=== PATIENT | female | born 1945 | race Caucasian/White ===

== ENCOUNTER 2016-12-31 17:19 | Inpatient (IN) | payer MEDICARE, OTHER ==
[~2016-12-31] VITALS: Ht 162.6 cm; Wt 79.8 kg
[2016-12-31 19:50] VITALS: BP 140/62; PULSE 81; RESP 18
[2016-12-31] MEDS ORDERED: ACETAMINOPHEN 325 MG TAB PO PRN ×2 (21:42→22:30)
[2016-12-31] MEDS ORDERED: ALBUTEROL/IPRATROPIUM (NEB) 3 ML AMP HHN PRN (21:42)
[2016-12-31] MEDS ORDERED: BISACODYL 10 MG SUPP PR PRN ×2 (21:47→22:30)
[2016-12-31] MEDS: BUDESONIDE (NEB) 0.25 MG/2 ML AMP INH SCH (21:47)
[2016-12-31] MEDS ORDERED: DEXTROSE 50% 50 ML SYRINGE IV PRN ×3 (21:48)
[2016-12-31] MEDS ORDERED: DOCUSATE SODIUM 100 MG CAP PO PRN (21:48)
[2016-12-31] MEDS ORDERED: GLUCAGON 1 MG INJ IM PRN (21:49)
[2016-12-31] MEDS ORDERED: GLUCOSE GEL 15 GRAM TUBE PO PRN ×2 (21:52)
[2016-12-31] MEDS ORDERED: GLUCOSE GEL 15 GRAM TUBE BUCCAL PRN (21:53)
[2016-12-31] MEDS ORDERED: SALINE 0.65% 45 ML NAS SPRAY NASAL PRN (22:00)
[2016-12-31] MEDS: IPRATROPIUM (NEB) 0.5 MG/2.5 ML AMP INH SCH (22:14)
[2016-12-31] MEDS ORDERED: LACTULOSE 30ML CUP PO PRN (22:30)
[2016-12-31] MEDS ORDERED: MAGNESIUM HYDROXIDE 30ML CUP PO PRN (22:30)
[2016-12-31] MEDS: TACROLIMUS 1 MG CAP PO SCH (23:06)
[2016-12-31] MEDS: SILDENAFIL 20 MG TAB PO SCH (23:07)
[2016-12-31] MEDS: ASCORBIC ACID 500 MG TAB PO SCH (23:07)
[2016-12-31] MEDS: APIXABAN 5 MG TABLET PO SCH (23:07)
[2016-12-31] MEDS ORDERED: ONDANSETRON 4 MG INJ IV PRN (23:30)
[2016-12-31] MEDS ORDERED: BALSAM PERU/CASTOR OIL 60 GM TUBE TOP PRN (23:30)
[2016-12-31] MEDS ORDERED: IPRATROPIUM (NEB) 0.5 MG/2.5 ML AMP INH PRN (23:30)
[2017-01-01] MEDS: IPRATROPIUM (NEB) 0.5 MG/2.5 ML AMP INH SCH ×4 (01:10→20:05)
[2017-01-01] MEDS ORDERED: PANTOPRAZOLE (EC) 40 MG TAB PO SCH (06:00)
[2017-01-01] MEDS: LEVOTHYROXINE 75 MCG TAB PO SCH (06:26)
[2017-01-01] MEDS: PANTOPRAZOLE (EC) 40 MG TAB PO SCH (06:26)
[2017-01-01] MEDS: Insulin NOVOLOG SS Algorithm ONE SC SCH ×4 (07:05→21:00)
[2017-01-01] MEDS: ACCU-CHEK BARLOW XX SCH ×4 (07:05→21:18)
[2017-01-01] MEDS: HYDROmorphONE 1 MG/ML SYG IV PRN ×5 (07:06→18:47)
[2017-01-01 07:30] VITALS: BP 119/71; RESP 20
[2017-01-01 07:51] LABS: BASOPHILS % 0.2 % (0.0-2.0); EOSINOPHILS # 0.2 10^3/ul (0.0-0.5); HEMATOCRIT 32.7 % (37.0-47.0); HEMOGLOBIN 10.4 g/dl (12.0-16.0); LYMPHOCYTES # 0.9 10^3/ul (0.8-2.9); LYMPHOCYTES % 15.1 % (15.0-51.0); MEAN CORPUSCULAR HEMOGLOBIN 30.2 pg (29.0-33.0); MEAN CORPUSCULAR HGB CONC 31.8 g/dl (32.0-37.0); MEAN CORPUSCULAR VOLUME 95.1 fl (82.0-101.0); MEAN PLATELET VOLUME 9.7 fl (7.4-10.4); MONOCYTE # 0.4 10^3/ul (0.3-0.9); MONOCYTES % 6.9 % (0.0-11.0); NEUTROPHILS % 73.5 % (39.0-77.0); PLATELET COUNT 297 10^3/UL (140-415); RED BLOOD COUNT 3.44 10^6/ul (4.20-5.40); RED CELL DISTRIBUTION WIDTH 15.9 % (11.5-14.5)
[2017-01-01 08:12] LABS: ALBUMIN 3.6 g/dl (3.3-4.9); ALBUMIN/GLOBULIN RATIO 1.33; BILIRUBIN,INDIRECT 0.2 mg/dl (0-1.1); BILIRUBIN,TOTAL 0.2 mg/dl (0.2-1.3); CALCIUM 10.1 mg/dl (8.4-10.2); CREATININE 1.48 mg/dl (0.44-1.00); POTASSIUM 4.2 mmol/L (3.5-5.1); TOTAL PROTEIN 6.3 g/dl (6.1-8.1)
[2017-01-01] MEDS: oxyCODONE 5 MG TAB PO PRN (08:25)
[2017-01-01] MEDS: TACROLIMUS 1 MG CAP PO SCH ×3 (08:35→20:59)
[2017-01-01 08:47] LABS: ADD UMIC YES; UR ASCORBIC ACID 40 mg/dL (NEGATIVE); UR BILIRUBIN (Dip) NEGATIVE (NEGATIVE); UR BLOOD (Dip) NEGATIVE (NEGATIVE); UR CLARITY CLEAR (CLEAR); UR COLOR YELLOW (YELLOW); UR GLUCOSE (Dip) NEGATIVE (NEGATIVE); UR KETONES (Dip) NEGATIVE (NEGATIVE); UR LEUKOCYTE ESTERASE (Dip) NEGATIVE Leu/ul (NEGATIVE); UR NITRITE (Dip) NEGATIVE (NEGATIVE); UR RBC 1 /HPF (0-5); UR SPECIFIC GRAVITY (Dip) 1.011 (1.003-1.030); UR TOTAL PROTEIN (Dip) 2+ mg/dl (NEGATIVE); UR UROBILINOGEN (Dip) NEGATIVE (NEGATIVE)
[2017-01-01] MEDS: SERTRALINE 50 MG TAB PO SCH (09:00)
[2017-01-01] MEDS: INSULIN GLARGINE [LANtus] 3 ML PEN SC SCH (09:00)
[2017-01-01] MEDS: LORATADINE 10 MG TAB PO SCH ×2 (09:00→13:48)
[2017-01-01] MEDS: BALSAM PERU/CASTOR OIL 60 GM TUBE TOP SCH (09:00)
[2017-01-01] MEDS: BUMETANIDE 1 MG TAB PO SCH ×2 (09:00→13:49)
[2017-01-01] MEDS: ASCORBIC ACID 500 MG TAB PO SCH ×3 (09:00→21:00)
[2017-01-01] MEDS: DOCUSATE SODIUM 100 MG CAP PO SCH ×2 (09:00→21:00)
[2017-01-01] MEDS ORDERED: FLUTICASONE 0.05% 16 GM NAS SPRAY NASAL PRN (09:00)
[2017-01-01] MEDS ORDERED: BALSAM PERU/CASTOR OIL 60 GM TUBE TOP PRN (09:00)
[2017-01-01] MEDS: MAGNESIUM OXIDE 400 MG TAB PO SCH ×2 (09:00→13:48)
[2017-01-01] MEDS: PREDNISONE PO SCH (09:00)
[2017-01-01] MEDS: APIXABAN 5 MG TABLET PO SCH ×3 (09:00→20:59)
[2017-01-01] MEDS ORDERED: NITROGLYCERIN 2% 1 GM OINT PKT TD PRN (09:00)
[2017-01-01] MEDS ORDERED: ZINC SULFATE 220 MG CAP PO SCH (09:00)
[2017-01-01] MEDS: OXCARBAZEPINE 300 MG TAB PO SCH ×3 (09:00→20:59)
[2017-01-01] MEDS: SILDENAFIL 20 MG TAB PO SCH ×3 (09:54→21:00)
[2017-01-01] MEDS: BUDESONIDE (NEB) 0.25 MG/2 ML AMP INH SCH ×2 (10:00→20:05)
--- NOTE | 2017-01-01 11:34 | HP ---
DATE OF ADMISSION: 12/31/2016 HISTORY OF PRESENT ILLNESS: This is a 70-year-old female with a past medical history metastatic breast cancer on Faslodex. History of end-stage renal disease, status post-renal transplant. History of hypothyroidism, hypertension, diabetes, COPD, pulmonary hypertension. The patient was initially taken to [facility] in late October for weakness, and was found to be respiratory failure. The patient at that time was also found to have COPD exacerbation along with diastolic heart failure. The patient received bronchodilator, steroids, and diuretics. The patient was on intermittent BiPAP and was eventually given sildenafil. The patient was noted to be edematous but improved with diuretic therapy. The patient also has chronic allograft failure with baseline creatinine 1.2 and 1.3 mg/dL. The patient was eventually transferred to [facility]. While at [place] the patient was on BiPAP, was seen by health manager, the patient eventually stabilized and was weaned off BiPAP. The patient has now been transferred to [facility] acute rehab for continued care. Upon my evaluation patient at time is currently stable. Denies any fevers, chills, nausea, vomiting shortness of breath. PAST MEDICAL HISTORY: As stated above. History metastatic breast cancer on Faslodex. End-stage renal disease, status post- renal transplant, hypothyroidism, hypertension, history of diabetes, COPD, and pulmonary hypertension. PAST SURGICAL HISTORY: Status post-renal kidney transplant. FAMILY HISTORY: Noncontributory. SOCIAL HISTORY: Does not drink, smoke, or do drugs. MEDICATIONS: Reviewed and reconciled. REVIEW OF SYSTEMS: A 14 point review of systems was conducted. Pertinent positives are stated in HPI, otherwise negative. PHYSICAL EXAMINATION: VITAL SIGNS: Blood pressure is 140/62, respirations 18, pulse 81, temperature 98.8. HEENT: Head is normocephalic. NECK: Supple. HEART: Regular rate. LUNGS: Diminished breath sounds at the base. ABDOMEN: Soft, nontender to palpation. No rebound or guarding. EXTREMITIES: Negative for clubbing, cyanosis. No edema. DERMATOLOGIC: Clean. No rashes. MUSCULOSKELETAL: No joint effusion. NEUROLOGIC: Unchanged exam. MEDICATIONS: The patient's medications have been reviewed. LABORATORY DATA: Sodium 135, potassium 4.2, chloride 92, BUN 46, creatinine 1.48. White count 6.9, hemoglobin 10.4, hematocrit 30.7, platelet count is 297,000. ASSESSMENT AND PLAN: 1. Chronic obstructive pulmonary disease exacerbation. The patient is clinically improving. Continue current medical management. Bronchodilators. Continue supplemental oxygen. 2. Congestive heart failure exacerbation. Improved. Continue current medical management. Follow up with Cardiology for recommendations. 3. History of paroxysmal atrial fibrillation. Currently sinus rhythm. Continue medical management. 4. End-stage renal disease. Status post-renal transplant with chronic failure. The patient's renal function is currently at baseline. Continue medical management. Supportive care. Renally dose all meds. 5. Hypothyroidism. Continue Synthroid. 6. Anemia. Monitor hemoglobin and hematocrit levels. 7. History of breast cancer with metastasis. The patient is on medical management. Will place Oncology consult for evaluation. 8. Diabetes. Continue current insulin regimen. 9. Pulmonary hypertension. Continue sildenafil. 10. Depression. Continue Zoloft. Dictated By: Cameron Rosenthal DO /[email or web address]/fred /Document#: [id number]
--- NOTE | 2017-01-01 13:02 | CONS ---
DATE OF ADMISSION: 12/31/2016 DATE OF CONSULTATION: 01/01/2017 This is a rehabilitation post admission physician evaluation. REHABILITATION IMPAIRMENT CATEGORY: Toxic metabolic encephalopathy. ACTIVE COMORBIDITIES: 1. Dysphagia, on dysphagia diet. 2. Status post respiratory failure. 3. End-stage renal disease, with history of transplant. 4. Diabetes mellitus. 5. Hypertension. 6. Paroxysmal atrial fibrillation. 7. Metastatic breast CA. 8. Hypothyroidism. 9. Deep tissue injury of the coccyx. 10. Impairments in self-care, mobility and cognition. HISTORY OF PRESENT ILLNESS: The patient is a pleasant 71-year- old female with a history of multiple medical comorbidities, who was admitted with increased shortness of breath and weakness. Patient was noted to have respiratory failure due to a COPD exacerbation and acute diastolic heart failure. The patient's hospital course was also notable for atrial fibrillation and dysphagia requiring dysphagia diet. The patient was transferred to [facility] for further care. The patient noted to have significant confusion secondary to acute encephalopathy. Patient with significant impairments in self- care, mobility, as compared to baseline and has now been cleared to transfer to the rehabilitation unit for comprehensive interdisciplinary rehab care. FUNCTIONAL HISTORY: Prior to recent events, she was independent in self-care tasks and mobility. Currently, she requires maximal- to-moderate assist for self-care mobility tasks. I have reviewed the preadmission screen and patient's current functional status is consistent with the preadmission screen. SOCIAL HISTORY: Patient lives with her brother in an apartment with 6 stairs to the entryway. PAST MEDICAL HISTORY: 1. Metastatic breast CA status post mastectomy. 2. End-stage renal disease, status post renal transplant. 3. Hypothyroidism. 4. Hypertension. 5. Diabetes mellitus. MEDICATION: 1. Insulin sliding scale. 2. NovoLog insulin. 3. Ascorbic acid 500 mg b.i.d. 4. Albuterol inhaler. 5. Levothyroxine 75 mcg p.o. q.day. 6. Oxycodone p.r.n. 7. Faslodex 500 mg q.month. 8. Protonix 40 mg p.o. q.day. 9. Prednisone 8 mg p.o. q.day. 10. Sertraline 50 mg p.o. q.day. ALLERGIES: MORPHINE. TETRACYCLINE. PHYSICAL EXAMINATION: GENERAL APPEARANCE: Patient is currently afebrile with stable vital signs. HEENT: The extraocular motion intact. Oropharynx clear. NECK: Supple. LUNGS: Clear anteriorly. HEART: S1, S2. ABDOMEN: Soft, nontender. Positive bowel sounds. NEUROLOGICALLY: She is awake and alert and she is oriented to person. She will follow simple one-step commands. She demonstrates antigravity strength in right upper and bilateral lower extremities. She has decreased shoulder forward flexion and abduction on the left. PLAN: Patient has been admitted for comprehensive interdisciplinary acute rehab and is anticipated to tolerate 3 hours of daily therapy in divided doses for at least 5/7 days a week. The treatment plan will include. 1. Physical therapy to focus on bed mobility, transfers and household ambulation with goal of having patient reach a standby assist level. 2. Occupational therapy to focus on hygiene, grooming, dressing, bathing and toileting activities with goal of having patient reach standby assist level. 3. Rehabilitation speech therapy for full cognitive assessment and retraining in addition to dysphagia management with the goal of having patient return to baseline cognition and meet nutritional needs by mouth. 4. Rehabilitation nursing for carry over of therapeutic interventions. The goal of continent to bowel, bladder, and the goal of patient and family education with regards to the aforementioned issues. ESTIMATED LENGTH OF STAY: 14 days. DISPOSITION GOAL: Home. Rehabilitation Barrier: Cognition Intervention for barrier: Speech Therapy I acknowledged I performed a full physical examination on this patient within 24 hours of admission to the rehabilitation unit and believe the patient is a good candidate for comprehensive interdisciplinary rehab care and is anticipated to make reasonable goals in a reasonable period of time as outlined above. Dictated By: Lynn Lugo MD /[email or web address] /Document#: [id number] SERAFIN
[2017-01-01 14:00] VITALS: BP 122/56; RESP 20
[2017-01-01] MEDS: METOPROLOL 25 MG TAB PO SCH ×2 (14:04→21:00)
[2017-01-01] MEDS: LORAZEPAM 2 MG INJ IV PRN (14:07)
[2017-01-01 20:00] VITALS: BP 129/56; RESP 18
[2017-01-01] MEDS: SENNA TAB PO SCH (21:00)
[2017-01-01] MEDS: MIRTAZAPINE 15 MG TAB PO SCH (21:00)
[2017-01-02] VITALS: BP 124/58; RESP 18
[2017-01-02] MEDS: IPRATROPIUM (NEB) 0.5 MG/2.5 ML AMP INH SCH ×4 (01:16→21:13)
[2017-01-02] MEDS: oxyCODONE 5 MG TAB PO PRN (01:26)
[2017-01-02] MEDS: LORAZEPAM 2 MG INJ IV PRN (02:39)
[2017-01-02] MEDS: LEVOTHYROXINE 75 MCG TAB PO SCH (06:34)
[2017-01-02] MEDS: PANTOPRAZOLE (EC) 40 MG TAB PO SCH (06:34)
[2017-01-02] MEDS: METOPROLOL 25 MG TAB PO SCH ×3 (06:37→21:07)
[2017-01-02] MEDS: ACCU-CHEK BARLOW XX SCH ×4 (07:05→21:00)
[2017-01-02 07:30] VITALS: BP 123/57; RESP 20
[2017-01-02] MEDS: BUDESONIDE (NEB) 0.25 MG/2 ML AMP INH SCH ×2 (08:00→21:14)
[2017-01-02] MEDS: Insulin NOVOLOG SS Algorithm ONE SC SCH ×4 (08:23→21:00)
[2017-01-02] MEDS: INSULIN GLARGINE [LANtus] 3 ML PEN SC SCH (08:33)
[2017-01-02] MEDS: PREDNISONE PO SCH (08:37)
[2017-01-02] MEDS: BUMETANIDE 1 MG TAB PO SCH (08:37)
[2017-01-02] MEDS: MAGNESIUM OXIDE 400 MG TAB PO SCH (08:38)
[2017-01-02] MEDS: SILDENAFIL 20 MG TAB PO SCH ×3 (08:38→21:05)
[2017-01-02] MEDS: DOCUSATE SODIUM 100 MG CAP PO SCH ×2 (08:38→21:03)
[2017-01-02] MEDS: ASCORBIC ACID 500 MG TAB PO SCH ×2 (08:38→21:39)
[2017-01-02] MEDS: LORATADINE 10 MG TAB PO SCH (08:38)
[2017-01-02] MEDS: TACROLIMUS 1 MG CAP PO SCH ×2 (08:38→21:03)
[2017-01-02] MEDS: OXCARBAZEPINE 300 MG TAB PO SCH ×2 (08:39→21:03)
[2017-01-02] MEDS: SERTRALINE 50 MG TAB PO SCH (08:39)
[2017-01-02] MEDS: APIXABAN 5 MG TABLET PO SCH ×2 (08:48→21:03)
--- NOTE | 2017-01-02 10:32 | CONS ---
Date/Time of Note Date/Time of Note DATE: 01/02/17 TIME: 10:30 Consult Date/Type/Reason Admit Date/Time Dec 31, 2016 at 18:36 Initial Consult Date Subjective Comfortable Objective max/dep assist transfer [id number] Vital Signs Date Time Temp Pulse Resp B/P Pulse Ox O2 Delivery O2 Flow Rate FiO2 01/02/17 07:30 97.8 70 20 123/57 100 01/02/17 01:16 2.0 01/01/17 20:05 Nasal Cannula Intake and Output 01/01/17 01/01/17 01/02/17 15:00 23:00 07:00 Intake Total 500 ml Balance 500 ml Results/Medications Result Diagram: 01/01/17 0651 01/01/17 0651 Results 24 hrs Laboratory Tests Test 01/01/17 12:51 01/01/17 17:39 01/01/17 20:54 01/02/17 08:05 Bedside Glucose 168 165 125 161 Medications Current Medications Oxycodone HCl (Roxicodone) 20 mg Q6H PRN PO MODERATE PAIN Last administered on 01/02/17 01:26; Admin Dose 20 MG; Start 12/31/16 at 23:30 Acetaminophen (Tylenol Tab) 650 mg Q6H PRN PO MILD PAIN LEVEL 1-3; Start at 21:42 Tacrolimus (Prograf) 2 mg QHS PO Last administered on 01/01/17 20:59; Admin Dose 2 MG; Start 12/31/16 at 21:56 Oxcarbazepine (Trileptal) 600 mg BID PO Last administered on 01/02/17 08:39; Admin Dose 600 MG; Start 01/01/17 at 09:00 Docusate Sodium (Colace) 100 mg BID PRN PO CONSTIPATION; Start 12/31/16 at 21:48 Sodium Chloride (Deep Sea) 1 spray Q2H PRN NASAL NASAL CONGESTION; Start at 22:00 Dextrose (D50w Syringe) 25 ml PRN PRN IV DECREASED GLUCOSE; Start 12/31/16 at 21 :48 Fluticasone Propionate (Flonase 0.05% Nasal) to each nostril DAILY PRN NASAL ALLERGIES; Start 01/01/17 at 09:00 Hydromorphone HCl (Dilaudid) 0.5 mg Q2H PRN IV SEVERE PAIN Last administered on 01/01/17 18:47; Admin Dose 0.5 MG; Start 12/31/16 at 21:54 Levothyroxine Sodium (Synthroid) 75 mcg DAILY@06 PO Last administered on 06:34; Admin Dose 75 MCG; Start 01/01/17 at 06:00 Loratadine (Claritin) 10 mg DAILY PO Last administered on 01/02/17 08:38; Admin Dose 10 MG; Start 01/01/17 at 09:00 Magnesium Oxide (Mag-Ox 400) 400 mg DAILY PO Last administered on 01/02/17 08: 38; Admin Dose 400 MG; Start 01/01/17 at 09:00 Sildenafil Citrate (Revatio) 20 mg TID PO Last administered on 01/02/17 08:38; Admin Dose 20 MG; Start 12/31/16 at 21:59 Sertraline HCl (Zoloft) 75 mg DAILY PO Last administered on 01/02/17 08:39; Admin Dose 75 MG; Start 01/01/17 at 09:00 Pantoprazole (Protonix Tab) 40 mg DAILY@06 PO Last administered on 01/02/17 06: 34; Admin Dose 40 MG; Start 01/01/17 at 06:00 Ondansetron HCl (Zofran Inj) 4 mg Q6H PRN IV NAUSEA AND/OR VOMITING Last administered on 01/01/17 13:05; Admin Dose 4 MG; Start 12/31/16 at 23:30 Miscellaneous Information 1 ea NOTE XX ; Start 01/01/17 at 09:00 Glucose (Glutose) 15 gm Q15M PRN PO DECREASED GLUCOSE; Start 12/31/16 at 21:52 Glucose (Glutose) 22.5 gm Q15M PRN PO DECREASED GLUCOSE; Start 12/31/16 at 21:52 Dextrose (D50w Syringe) 25 ml Q15M PRN IV DECREASED GLUCOSE; Start 12/31/16 at 21:48 Dextrose (D50w Syringe) 50 ml Q15M PRN IV DECREASED GLUCOSE; Start 12/31/16 at 21:48 Glucagon (Glucagen) 1 mg Q15M PRN IM DECREASED GLUCOSE; Start 12/31/16 at 21:49 Glucose (Glutose) 15 gm Q15M PRN BUCCAL DECREASED GLUCOSE; Start 12/31/16 at 21: 53 Nitroglycerin (Nitroglycerin 2% Oint) 0.5 inch Q6H PRN TD SBP > 160; Start 01/01 at 09:00 Lorazepam (Ativan) 0.5 mg Q6H PRN IV ANXIETY Last administered on 01/02/17 02: 39; Admin Dose 0.5 MG; Start 01/01/17 at 09:00 Bisacodyl (Dulcolax Supp) 10 mg DAILY PRN [place] CONSTIPATION; Start 12/31/16 at 21: 47 Metoprolol Tartrate (Lopressor) 25 mg Q8 PO Last administered on 01/02/17 06:37 ; Admin Dose 25 MG; Start 01/01/17 at 09:00 Insulin Glargine (Lantus) 18 unit DAILY SC Last administered on 01/02/17 08:33 ; Admin Dose 18 UNIT; Start 01/01/17 at 09:00 Apixaban (Eliquis) 2.5 mg BID PO Last administered on 01/02/17 08:48; Admin Dose 2.5 MG; Start 12/31/16 at 21:43 Ascorbic Acid (Vitamin C) 500 mg BID PO Last administered on 01/02/17 08:38; Admin Dose 500 MG; Start 12/31/16 at 21:44 Mirtazapine (Remeron) 15 mg HS PO Last administered on 01/01/17 21:00; Admin Dose 15 MG; Start 01/01/17 at 09:00 Patient Own Medication 1 ea Q28D IM ; Start 01/09/17 at 09:00 Prednisone (Prednisone 1 Mg/ ml Liq) 8 mg DAILY PO Last administered on 08:37; Admin Dose 8 MG; Start 01/01/17 at 09:00 Bumetanide (Bumex) 1 mg DAILY PO Last administered on 01/02/17 08:37; Admin Dose 1 MG; Start 01/01/17 at 09:00 Docusate Sodium (Colace) 100 mg BID PO Last administered on 01/02/17 08:38; Admin Dose 100 MG; Start 01/01/17 at 09:00 Senna (Senokot) 1 tab HS PO Last administered on 9/7/17at 21:00; Admin Dose 1 TAB; Start 01/01/17 at 21:00 Magnesium Hydroxide (Milk Of Mag) 30 ml BID PRN PO CONSTIPATION; Start 12/31/16 at 22:30 Lactulose (Enulose) 20 gm DAILY PRN PO CONSTIPATION; Start 12/31/16 at 22:30 Bisacodyl (Dulcolax Supp) 10 mg DAILY PRN [place] CONSTIPATION; Start 12/31/16 at 22: 30 Acetaminophen (Tylenol Tab) 650 mg Q4H PRN PO PAIN; Start 12/31/16 at 22:30 Lidocaine (Lidoderm) 1 patch DAILY TD ; Start 01/03/17 at 09:00 Assessment/Plan Additional Assessment/Plan Rehab- Toxic metabolic encephalopathy increase activities as tolerated Dysphagia, on dysphagia diet. Status post respiratory failure. End-stage renal disease, with history of transplant. Diabetes mellitus. Hypertension. Paroxysmal atrial fibrillation. Metastatic breast CA. Hypothyroidism. Deep tissue injury of the coccyx- offloading ALEK KRISHNAN MD Jan 02, 2017 10:32
--- NOTE | 2017-01-02 11:04 | PN ---
DATE: 01/02/2017 SUBJECTIVE DATA: The patient is stable. No events overnight. No fevers, chills, nausea, or vomiting. OBJECTIVE DATA: VITAL SIGNS: Blood pressure 123/67, temperature 97.8, pulse 70, respirations 20. HEENT: Head is normocephalic. NECK: Supple. HEART: Regular rate. LUNGS: Diminished breath sounds at the base. ABDOMEN: Soft, nontender to palpation. No rebound or guarding. EXTREMITIES: Negative for clubbing, cyanosis. No edema. DERMATOLOGIC: No rashes. MUSCULOSKELETAL: No joint effusions. NEUROLOGIC: No change in exam. MEDICATIONS: The patient's medications have been reviewed. ASSESSMENT AND PLAN: 1. Chronic obstructive pulmonary disease exacerbation. Patient clinically improved. Continue medical management. Continue bronchodilators. Continue supplemental oxygen. 2. Congestive heart failure, stable. Continue medical management. 3. Paroxysmal atrial fibrillation, currently in sinus rhythm. 4. Endstage renal disease, status post renal transplant with chronic allograft failure. Patient's renal function is at baseline. Continue current immunosuppressive regimen. 5. Hypothyroidism. Continue Synthroid. 6. Anemia. Monitor hemoglobin and hematocrit levels. 7. History of breast cancer, . Continue medical management. Place oncology consult for evaluation. 8. Diabetes. Continue Accu-Cheks and sliding scale. 9. Pulmonary hypertension. 10. Anxiety/depression. Continue Zoloft. Dictated By: Cameron Rosenthal DO /[email or web address] /Document#: [id number]
[2017-01-02] MEDS: BALSAM PERU/CASTOR OIL 60 GM TUBE TOP SCH (12:18)
[2017-01-02 14:00] VITALS: BP 101/52; RESP 20
--- NOTE | 2017-01-02 14:10 | CONS ---
Date/Time of Note Date/Time of Note DATE: 01/02/17 TIME: 14:10 Assessment/Plan Assessment/Plan Chief Complaint/Hosp Course History of breast cancer with lung metastasis. The patient is on medical management. cont Faslodex as outpt Anemia. Monitor hemoglobin and hematocrit levels. Chronic obstructive pulmonary disease exacerbation. Congestive heart failure exacerbation. History of paroxysmal atrial fibrillation. End-stage renal disease. Status post-renal transplant with chronic failure. Hypothyroidism. Continue Synthroid. Diabetes. Continue current insulin regimen. Pulmonary hypertension. Continue sildenafil. Depression. Continue Zoloft. Problems: Consultation Date/Type/Reason Admit Date/Time Dec 31, 2016 at 18:36 Date of Consultation: Jan 02, 2017 Type of Consultation: HEMEONC Reason for Consultation BREAST CANCER Referring Provider: SUSAN SIMENTAL DO Hx of Present Illness This is a 70-year-old female with a past medical history metastatic breast cancer on Faslodex. History of end-stage renal disease, status post-renal transplant. History of hypothyroidism, hypertension, diabetes, COPD, pulmonary hypertension. The patient was initially taken to [facility] in late October for weakness, and was found to be respiratory failure. The patient at that time was also found to have COPD exacerbation along with diastolic heart failure. The patient received bronchodilator, steroids, and diuretics. The patient was on intermittent BiPAP and was eventually given sildenafil. The patient was noted to be edematous but improved with diuretic therapy. The patient also has chronic allograft failure with baseline creatinine 1.2 and 1.3 mg/dL. The patient was eventually transferred to [facility]. While at [facility] the patient was on BiPAP, was seen by php wordpress developer, the patient eventually stabilized and was weaned off BiPAP. The patient has now been transferred to [facility] acute rehab for continued care. I WS ASKED TO PROVIDE HEMEON CONSULT PAST MEDICAL HISTORY: As stated above. History metastatic breast cancer on Faslodex. End-stage renal disease, status post- renal transplant, hypothyroidism, hypertension, history of diabetes, COPD, and pulmonary hypertension. PAST SURGICAL HISTORY: Status post-renal kidney transplant. FAMILY HISTORY: Noncontributory. SOCIAL HISTORY: Does not drink, smoke, or do drugs. MEDICATIONS: Reviewed and reconciled. REVIEW OF SYSTEMS: A 14 point review of systems was conducted. Pertinent positives are stated in HPI, otherwise negative. Exam/Review of Systems Vital Signs Vitals Vital Signs Date Time Temp Pulse Resp B/P Pulse Ox O2 Delivery O2 Flow Rate FiO2 01/02/17 13:46 70 20 Nasal Cannula 2.0 01/02/17 07:30 97.8 123/57 100 Intake and Output 01/01/17 01/01/17 01/02/17 15:00 23:00 07:00 Intake Total 500 ml Balance 500 ml Exam HEENT: Head is normocephalic. NECK: Supple. HEART: Regular rate. CHEST - POST L MRM/ALND- ANTOINETTE LUNGS: Diminished breath sounds at the base. ABDOMEN: Soft, nontender to palpation. No rebound or guarding. EXTREMITIES: Negative for clubbing, cyanosis. No edema. DERMATOLOGIC: Clean. No rashes. MUSCULOSKELETAL: No joint effusion. Results Result Diagram: 01/01/17 0651 01/01/17 06 Results 24 hrs Laboratory Tests Test 01/01/17 17:39 01/01/17 20:54 01/02/17 08:05 01/02/17 12:00 Bedside Glucose 165 125 161 193 Medications Medications Current Medications Oxycodone HCl (Roxicodone) 20 mg Q6H PRN PO MODERATE PAIN Last administered on 01/02/17 01:26; Admin Dose 20 MG; Start 12/31/16 at 23:30 Acetaminophen (Tylenol Tab) 650 mg Q6H PRN PO MILD PAIN LEVEL 1-3; Start at 21:42 Tacrolimus (Prograf) 2 mg QHS PO Last administered on 01/01/17 20:59; Admin Dose 2 MG; Start 12/31/16 at 21:56 Oxcarbazepine (Trileptal) 600 mg BID PO Last administered on 01/02/17 08:39; Admin Dose 600 MG; Start 01/01/17 at 09:00 Docusate Sodium (Colace) 100 mg BID PRN PO CONSTIPATION; Start 12/31/16 at 21:48 Sodium Chloride (Deep Sea) 1 spray Q2H PRN NASAL NASAL CONGESTION; Start at 22:00 Dextrose (D50w Syringe) 25 ml PRN PRN IV DECREASED GLUCOSE; Start 12/31/16 at 21 :48 Fluticasone Propionate (Flonase 0.05% Nasal) to each nostril DAILY PRN NASAL ALLERGIES; Start 01/01/17 at 09:00 Hydromorphone HCl (Dilaudid) 0.5 mg Q2H PRN IV SEVERE PAIN Last administered on 01/01/17 18:47; Admin Dose 0.5 MG; Start 12/31/16 at 21:54 Levothyroxine Sodium (Synthroid) 75 mcg DAILY@06 PO Last administered on 06:34; Admin Dose 75 MCG; Start 01/01/17 at 06:00 Loratadine (Claritin) 10 mg DAILY PO Last administered on 01/02/17 08:38; Admin Dose 10 MG; Start 01/01/17 at 09:00 Magnesium Oxide (Mag-Ox 400) 400 mg DAILY PO Last administered on 01/02/17 08: 38; Admin Dose 400 MG; Start 01/01/17 at 09:00 Sildenafil Citrate (Revatio) 20 mg TID PO Last administered on 01/02/17 12:04; Admin Dose 20 MG; Start 12/31/16 at 21:59 Sertraline HCl (Zoloft) 75 mg DAILY PO Last administered on 01/02/17 08:39; Admin Dose 75 MG; Start 01/01/17 at 09:00 Pantoprazole (Protonix Tab) 40 mg DAILY@06 PO Last administered on 01/02/17 06: 34; Admin Dose 40 MG; Start 01/01/17 at 06:00 Ondansetron HCl (Zofran Inj) 4 mg Q6H PRN IV NAUSEA AND/OR VOMITING Last administered on 01/01/17 13:05; Admin Dose 4 MG; Start 12/31/16 at 23:30 Miscellaneous Information 1 ea NOTE XX ; Start 01/01/17 at 09:00 Glucose (Glutose) 15 gm Q15M PRN PO DECREASED GLUCOSE; Start 12/31/16 at 21:52 Glucose (Glutose) 22.5 gm Q15M PRN PO DECREASED GLUCOSE; Start 12/31/16 at 21:52 Dextrose (D50w Syringe) 25 ml Q15M PRN IV DECREASED GLUCOSE; Start 12/31/16 at 21:48 Dextrose (D50w Syringe) 50 ml Q15M PRN IV DECREASED GLUCOSE; Start 12/31/16 at 21:48 Glucagon (Glucagen) 1 mg Q15M PRN IM DECREASED GLUCOSE; Start 12/31/16 at 21:49 Glucose (Glutose) 15 gm Q15M PRN BUCCAL DECREASED GLUCOSE; Start 12/31/16 at 21: 53 Nitroglycerin (Nitroglycerin 2% Oint) 0.5 inch Q6H PRN TD SBP > 160; Start 01/01 at 09:00 Lorazepam (Ativan) 0.5 mg Q6H PRN IV ANXIETY Last administered on 01/02/17 02: 39; Admin Dose 0.5 MG; Start 01/01/17 at 09:00 Bisacodyl (Dulcolax Supp) 10 mg DAILY PRN [place] CONSTIPATION; Start 12/31/16 at 21: 47 Metoprolol Tartrate (Lopressor) 25 mg Q8 PO Last administered on 01/02/17 06:37 ; Admin Dose 25 MG; Start 01/01/17 at 09:00 Insulin Glargine (Lantus) 18 unit DAILY SC Last administered on 01/02/17 08:33 ; Admin Dose 18 UNIT; Start 01/01/17 at 09:00 Apixaban (Eliquis) 2.5 mg BID PO Last administered on 01/02/17 08:48; Admin Dose 2.5 MG; Start 12/31/16 at 21:43 Ascorbic Acid (Vitamin C) 500 mg BID PO Last administered on 01/02/17 08:38; Admin Dose 500 MG; Start 12/31/16 at 21:44 Mirtazapine (Remeron) 15 mg HS PO Last administered on 01/01/17 21:00; Admin Dose 15 MG; Start 01/01/17 at 09:00 Patient Own Medication 1 ea Q28D IM ; Start 01/09/17 at 09:00 Prednisone (Prednisone 1 Mg/ ml Liq) 8 mg DAILY PO Last administered on 08:37; Admin Dose 8 MG; Start 01/01/17 at 09:00 Bumetanide (Bumex) 1 mg DAILY PO Last administered on 01/02/17 08:37; Admin Dose 1 MG; Start 01/01/17 at 09:00 Docusate Sodium (Colace) 100 mg BID PO Last administered on 01/02/17 08:38; Admin Dose 100 MG; Start 01/01/17 at 09:00 Senna (Senokot) 1 tab HS PO Last administered on 01/01/17t 21:00; Admin Dose 1 TAB; Start 01/01/17 at 21:00 Magnesium Hydroxide (Milk Of Mag) 30 ml BID PRN PO CONSTIPATION; Start 12/31/16 at 22:30 Lactulose (Enulose) 20 gm DAILY PRN PO CONSTIPATION; Start 12/31/16 at 22:30 Bisacodyl (Dulcolax Supp) 10 mg DAILY PRN [place] CONSTIPATION; Start 12/31/16 at 22: 30 Acetaminophen (Tylenol Tab) 650 mg Q4H PRN PO PAIN; Start 12/31/16 at 22:30 SHANICE DAVENPORT MD Jan 02, 2017 14:10
[2017-01-02 20:00] VITALS: BP 144/78; RESP 18
[2017-01-02] MEDS ORDERED: BALSAM PERU/CASTOR OIL 60 GM TUBE TOP SCH (21:00)
[2017-01-02] MEDS: MIRTAZAPINE 15 MG TAB PO SCH (21:03)
[2017-01-02] MEDS: SENNA TAB PO SCH (21:04)
[2017-01-02] MEDS ORDERED: ASCORBIC ACID 500 MG TAB ONE (21:32)
[2017-01-03] MEDS: IPRATROPIUM (NEB) 0.5 MG/2.5 ML AMP INH SCH ×4 (01:27→19:31)
[2017-01-03 02:00] VITALS: BP 127/62; RESP 18
[2017-01-03] MEDS: LEVOTHYROXINE 75 MCG TAB PO SCH (05:40)
[2017-01-03] MEDS: PANTOPRAZOLE (EC) 40 MG TAB PO SCH (05:40)
[2017-01-03] MEDS: METOPROLOL 25 MG TAB PO SCH ×3 (05:42→21:07)
[2017-01-03] MEDS: ACCU-CHEK BARLOW XX SCH ×4 (07:05→17:56)
[2017-01-03] MEDS: Insulin NOVOLOG SS Algorithm ONE SC SCH ×4 (07:05→21:26)
[2017-01-03 08:00] VITALS: BP 169/72; RESP 18
[2017-01-03] MEDS: BUDESONIDE (NEB) 0.25 MG/2 ML AMP INH SCH ×2 (08:00→19:43)
[2017-01-03] MEDS: HYDROmorphONE 1 MG/ML SYG IV PRN (08:38)
[2017-01-03] MEDS ORDERED: LIDOCAINE 5% PATCH TD SCH (09:00)
[2017-01-03] MEDS: INSULIN GLARGINE [LANtus] 3 ML PEN SC SCH (09:22)
[2017-01-03] MEDS: BALSAM PERU/CASTOR OIL 60 GM TUBE TOP SCH (09:23)
[2017-01-03] MEDS: SERTRALINE 50 MG TAB PO SCH (09:23)
[2017-01-03] MEDS: BUMETANIDE 1 MG TAB PO SCH (09:24)
[2017-01-03] MEDS: DOCUSATE SODIUM 100 MG CAP PO SCH ×2 (09:24→21:02)
[2017-01-03] MEDS: LORATADINE 10 MG TAB PO SCH (09:24)
[2017-01-03] MEDS: OXCARBAZEPINE 300 MG TAB PO SCH ×2 (09:24→21:02)
[2017-01-03] MEDS: TACROLIMUS 1 MG CAP PO SCH ×2 (09:24→20:59)
[2017-01-03] MEDS: MAGNESIUM OXIDE 400 MG TAB PO SCH (09:25)
[2017-01-03] MEDS: APIXABAN 5 MG TABLET PO SCH ×2 (09:25→21:02)
[2017-01-03] MEDS: SILDENAFIL 20 MG TAB PO SCH ×3 (09:26→21:00)
[2017-01-03] MEDS: PREDNISONE PO SCH (09:27)
[2017-01-03] MEDS ORDERED: ASCORBIC ACID 500 MG TAB ONE ×2 (09:31→21:04)
[2017-01-03] MEDS: ASCORBIC ACID 500 MG TAB PO SCH ×2 (09:31→21:07)
[2017-01-03] MEDS: LORAZEPAM 0.5 MG TAB PO PRN ×2 (09:32→19:48)
--- NOTE | 2017-01-03 11:54 | CONS ---
Date/Time of Note Date/Time of Note DATE: 01/03/17 TIME: 11:53 Consult Date/Type/Reason Admit Date/Time Dec 31, 2016 at 18:36 Subjective Patient very anxious this morning diffuse complaint Objective Mod assist Vital Signs Date Time Temp Pulse Resp B/P Pulse Ox O2 Delivery O2 Flow Rate FiO2 01/03/17 08:00 97.9 59 18 169/72 94 01/03/17 01:27 2.0 01/02/17 21:09 Nasal Cannula Intake and Output 01/02/17 01/02/17 01/03/17 15:00 23:00 07:00 Intake Total 800 ml 450 ml Balance 800 ml 450 ml Results/Medications Result Diagram: 01/01/17 0651 01/01/17 0651 Results 24 hrs Laboratory Tests Test 01/02/17 12:00 01/02/17 17:20 01/02/17 21:12 01/03/17 07:44 Bedside Glucose 193 197 175 131 Test 01/03/17 09:08 Bedside Glucose 138 Medications Current Medications Oxycodone HCl (Roxicodone) 20 mg Q6H PRN PO MODERATE PAIN Last administered on 01/02/17 01:26; Admin Dose 20 MG; Start 12/31/16 at 23:30 Acetaminophen (Tylenol Tab) 650 mg Q6H PRN PO MILD PAIN LEVEL 1-3; Start at 21:42 Tacrolimus (Prograf) 2 mg QHS PO Last administered on 01/02/17 21:03; Admin Dose 2 MG; Start 12/31/16 at 21:56 Oxcarbazepine (Trileptal) 600 mg BID PO Last administered on 01/03/17 09:24; Admin Dose 600 MG; Start 01/01/17 at 09:00 Docusate Sodium (Colace) 100 mg BID PRN PO CONSTIPATION; Start 12/31/16 at 21:48 Sodium Chloride (Deep Sea) 1 spray Q2H PRN NASAL NASAL CONGESTION; Start at 22:00 Dextrose (D50w Syringe) 25 ml PRN PRN IV DECREASED GLUCOSE; Start 12/31/16 at 21 :48 Fluticasone Propionate (Flonase 0.05% Nasal) to each nostril DAILY PRN NASAL ALLERGIES; Start 01/01/17 at 09:00 Hydromorphone HCl (Dilaudid) 0.5 mg Q2H PRN IV SEVERE PAIN Last administered on 01/03/17 08:38; Admin Dose 0.5 MG; Start 12/31/16 at 21:54 Levothyroxine Sodium (Synthroid) 75 mcg DAILY@06 PO Last administered on 05:40; Admin Dose 75 MCG; Start 01/01/17 at 06:00 Loratadine (Claritin) 10 mg DAILY PO Last administered on 01/03/17 09:24; Admin Dose 10 MG; Start 01/01/17 at 09:00 Magnesium Oxide (Mag-Ox 400) 400 mg DAILY PO Last administered on 01/03/17 09: 25; Admin Dose 400 MG; Start 01/01/17 at 09:00 Sildenafil Citrate (Revatio) 20 mg TID PO Last administered on 01/03/17 09:26; Admin Dose 20 MG; Start 12/31/16 at 21:59 Sertraline HCl (Zoloft) 75 mg DAILY PO Last administered on 01/03/17 09:23; Admin Dose 75 MG; Start 01/01/17 at 09:00 Pantoprazole (Protonix Tab) 40 mg DAILY@06 PO Last administered on 01/03/17 05: 40; Admin Dose 40 MG; Start 01/01/17 at 06:00 Ondansetron HCl (Zofran Inj) 4 mg Q6H PRN IV NAUSEA AND/OR VOMITING Last administered on 01/01/17 13:05; Admin Dose 4 MG; Start 12/31/16 at 23:30 Miscellaneous Information 1 ea NOTE XX ; Start 01/01/17 at 09:00 Glucose (Glutose) 15 gm Q15M PRN PO DECREASED GLUCOSE; Start 12/31/16 at 21:52 Glucose (Glutose) 22.5 gm Q15M PRN PO DECREASED GLUCOSE; Start 12/31/16 at 21:52 Dextrose (D50w Syringe) 25 ml Q15M PRN IV DECREASED GLUCOSE; Start 12/31/16 at 21:48 Dextrose (D50w Syringe) 50 ml Q15M PRN IV DECREASED GLUCOSE; Start 12/31/16 at 21:48 Glucagon (Glucagen) 1 mg Q15M PRN IM DECREASED GLUCOSE; Start 12/31/16 at 21:49 Glucose (Glutose) 15 gm Q15M PRN BUCCAL DECREASED GLUCOSE; Start 12/31/16 at 21: 53 Nitroglycerin (Nitroglycerin 2% Oint) 0.5 inch Q6H PRN TD SBP > 160; Start 01/01 at 09:00 Lorazepam (Ativan) 0.5 mg Q6H PRN IV ANXIETY Last administered on 01/02/17 02: 39; Admin Dose 0.5 MG; Start 01/01/17 at 09:00 Bisacodyl (Dulcolax Supp) 10 mg DAILY PRN [place] CONSTIPATION; Start 12/31/16 at 21: 47 Metoprolol Tartrate (Lopressor) 25 mg Q8 PO Last administered on 01/03/17 05:42 ; Admin Dose 25 MG; Start 01/01/17 at 09:00 Insulin Glargine (Lantus) 18 unit DAILY SC Last administered on 01/03/17 09:22 ; Admin Dose 18 UNIT; Start 01/01/17 at 09:00 Apixaban (Eliquis) 2.5 mg BID PO Last administered on 01/03/17 09:25; Admin Dose 2.5 MG; Start 12/31/16 at 21:43 Ascorbic Acid (Vitamin C) 500 mg BID PO Last administered on 01/03/17 09:31; Admin Dose 500 MG; Start 12/31/16 at 21:44 Mirtazapine (Remeron) 15 mg HS PO Last administered on 01/02/17 21:03; Admin Dose 15 MG; Start 01/01/17 at 09:00 Patient Own Medication 1 ea Q28D IM ; Start 01/09/17 at 09:00 Prednisone (Prednisone 1 Mg/ ml Liq) 8 mg DAILY PO Last administered on 09:27; Admin Dose 8 MG; Start 01/01/17 at 09:00 Bumetanide (Bumex) 1 mg DAILY PO Last administered on 01/03/17 09:24; Admin Dose 1 MG; Start 01/01/17 at 09:00 Docusate Sodium (Colace) 100 mg BID PO Last administered on 01/03/17 09:24; Admin Dose 100 MG; Start 01/01/17 at 09:00 Senna (Senokot) 1 tab HS PO Last administered on 01/02/17 21:04; Admin Dose 1 TAB; Start 01/01/17 at 21:00 Magnesium Hydroxide (Milk Of Mag) 30 ml BID PRN PO CONSTIPATION; Start 12/31/16 at 22:30 Lactulose (Enulose) 20 gm DAILY PRN PO CONSTIPATION; Start 12/31/16 at 22:30 Bisacodyl (Dulcolax Supp) 10 mg DAILY PRN [place] CONSTIPATION; Start 12/31/16 at 22: 30 Acetaminophen (Tylenol Tab) 650 mg Q4H PRN PO PAIN; Start 12/31/16 at 22:30 Lorazepam (Ativan) 0.25 mg Q8H PRN PO ANXIETY Last administered on 01/03/17 09: 32; Admin Dose 0.25 MG; Start 01/03/17 at 09:30 Assessment/Plan Additional Assessment/Plan Rehab- Toxic metabolic encephalopathy activities as tolerated Dysphagia, on dysphagia diet. Status post respiratory failure-check follow-up chest x-ray End-stage renal disease, with history of transplant. Diabetes mellitus. Hypertension. Paroxysmal atrial fibrillation. Metastatic breast CA. Hypothyroidism. Deep tissue injury of the coccyx- offloading ALEK KRISHNAN MD Jan 03, 2017 11:54
[2017-01-03 12:38] LABS: ABNORMAL IP MESSAGE 1; EOSINOPHILS # 0.1 10^3/ul (0.0-0.5); EOSINOPHILS % 1.4 % (0.0-7.0); HEMATOCRIT 29.5 % (37.0-47.0); HEMOGLOBIN 9.4 g/dl (12.0-16.0); LYMPHOCYTES # 0.4 10^3/ul (0.8-2.9); LYMPHOCYTES % 4.6 % (15.0-51.0); MEAN CORPUSCULAR HEMOGLOBIN 30.4 pg (29.0-33.0); MEAN CORPUSCULAR HGB CONC 31.9 g/dl (32.0-37.0); MEAN CORPUSCULAR VOLUME 95.5 fl (82.0-101.0); MEAN PLATELET VOLUME 9.1 fl (7.4-10.4); MONOCYTE # 0.3 10^3/ul (0.3-0.9); MONOCYTES % 4.5 % (0.0-11.0); PLATELET COUNT 241 10^3/UL (140-415); RED BLOOD COUNT 3.09 10^6/ul (4.20-5.40); RED CELL DISTRIBUTION WIDTH 15.4 % (11.5-14.5); WHITE BLOOD COUNT 7.6 10^3/ul (4.8-10.8)
[2017-01-03 12:49] LABS: POSITIVE DIFF @See below
[2017-01-03 12:54] LABS: CALCIUM 9.7 mg/dl (8.4-10.2); CREATININE 2.09 mg/dl (0.44-1.00); POTASSIUM 4.6 mmol/L (3.5-5.1)
--- NOTE | 2017-01-03 13:02 | RADRPT ---
PROCEDURE: XR Chest. CLINICAL INDICATION: Shortness of breath TECHNIQUE: An AP view of the chest was obtained. COMPARISON: Chest x-ray dated 12/29/2016 FINDINGS: There is prominence of the interstitial and central pulmonary vascular markings with small right pl eural effusion. No focal airspace opacification or pneumothorax is seen. The cardiomediastinal si lhouette is mildly enlarged . Calcifications are seen within the aortic arch. The osseous structur es demonstrate senescent changes. Surgical clips are seen along the bilateral axillary soft tissues and left heart border. IMPRESSION: 1. Findings suggestive of pulmonary vascular congestion with small right pleural effusion. No sign ificant interval change. 2. Mild cardiomegaly and aortic atherosclerosis. RPTAT: HH .Sultana Fuentes MD, Date Time Electronically viewed and signed by .Sultana Fuentes MD, on 01/03/2017 13:01 .G/
--- NOTE | 2017-01-03 14:42 | PN ---
DATE: 01/03/2017 SUBJECTIVE DATA: The patient is stable. No events overnight. No fevers, chills, nausea, vomiting. No shortness of breath. OBJECTIVE DATA: VITAL SIGNS: Blood pressure is 177/62, respirations 18, pulse 81, temperature 97.8. HEENT: Head is normocephalic. NECK: Supple. HEART: Regular rate. LUNGS: Diminished breath sounds at the base. ABDOMEN: Soft, nontender to palpation. No rebound or guarding. EXTREMITIES: Negative for clubbing, cyanosis. No edema. DERMATOLOGIC: No rashes. MUSCULOSKELETAL: No joint effusion. NEUROLOGIC: No change in exam. MEDICATIONS: Reviewed. ASSESSMENT AND PLAN: 1. Chronic obstructive pulmonary disease exacerbation. Patient clinically improving. Continue current medical management. Continue bronchodilators and supplemental oxygen. 2. Congestive heart failure, stable. Continue medical management. 3. Paroxysmal atrial fibrillation. Currently in sinus rhythm. 4. End-stage renal disease. Status post renal transplant with chronic allograft failure. Patient's renal functions at baseline. Continue current immunosuppressive regimen. 5. Hypothyroidism. Continue Synthroid. 6. Anemia. Monitor H and H levels. 7. History of breast cancer. Appreciate Oncology's evaluation. 8. Diabetes. Continue Accu-Cheks and sliding scale. 9. Pulmonary hypertension. Continue medical management. 10. Anxiety disorder and depression. Continue Zoloft. Dictated By: Cameron Rosenthal DO /[email or web address] /Document#: [id number]
[2017-01-03 20:26] VITALS: BP 132/76; RESP 18
[2017-01-03] MEDS: MIRTAZAPINE 15 MG TAB PO SCH (20:59)
[2017-01-03] MEDS: SENNA TAB PO SCH (21:01)
[2017-01-03] MEDS: oxyCODONE 5 MG TAB PO PRN (21:01)
--- NOTE | 2017-01-03 21:56 | CONS ---
Date/Time of Note Date/Time of Note DATE: 01/03/17 TIME: 21:56 Assessment/Plan Assessment/Plan Chief Complaint/Hosp Course History of breast cancer with lung metastasis. The patient is on medical management. cont Faslodex as outpt Anemia. Monitor hemoglobin and hematocrit levels. Chronic obstructive pulmonary disease exacerbation. Congestive heart failure exacerbation. History of paroxysmal atrial fibrillation. End-stage renal disease. Status post-renal transplant with chronic failure. Hypothyroidism. Continue Synthroid. Diabetes. Continue current insulin regimen. Pulmonary hypertension. Continue sildenafil. Depression. Continue Zoloft. Problems: Consultation Date/Type/Reason Admit Date/Time Dec 31, 2016 at 18:36 Initial Consult Date 24 HR Interval Summary Free Text/Dictation ALL NOTED NAD Exam/Review of Systems Vital Signs Vitals Vital Signs Date Time Temp Pulse Resp B/P Pulse Ox O2 Delivery O2 Flow Rate FiO2 01/03/17 20:26 97.8 68 18 132/76 96 01/03/17 19:33 Nasal Cannula 2.0 Intake and Output 01/02/17 01/02/17 01/03/17 15:00 23:00 07:00 Intake Total 800 ml 450 ml Balance 800 ml 450 ml Exam HEENT: Head is normocephalic. NECK: Supple. HEART: Regular rate. CHEST - POST L MRM/ALND- ANTOINETTE LUNGS: Diminished breath sounds at the base. ABDOMEN: Soft, nontender to palpation. No rebound or guarding. EXTREMITIES: Negative for clubbing, cyanosis. No edema. DERMATOLOGIC: Clean. No rashes. MUSCULOSKELETAL: No joint effusion. Results Result Diagram: 01/03/17 1229 01/03/17 1229 Results 24 hrs Laboratory Tests Test 01/03/17 07:44 01/03/17 09:08 01/03/17 12:15 01/03/17 12:29 Bedside Glucose 131 138 230 H White Blood Count 7.6 # Red Blood Count 3.09 L Hemoglobin 9.4 L Hematocrit 29.5 L Mean Corpuscular Volume 95.5 Mean Corpuscular Hemoglobin 30.4 Mean Corpuscular Hemoglobin Concent 31.9 L Red Cell Distribution Width 15.4 H Platelet Count 241 Mean Platelet Volume 9.1 Neutrophils % 89.0 H Lymphocytes % 4.6 L Monocytes % 4.5 Eosinophils % 1.4 Basophils % 0.0 Nucleated Red Blood Cells % 0.0 Neutrophils # (Manual) 6.8 Lymphocytes # 0.4 L Monocytes # 0.3 Eosinophils # 0.1 Basophils # 0.0 Nucleated Red Blood Cells # 0.0 Sodium Level 134 L Potassium Level 4.6 Chloride Level 91 L Carbon Dioxide Level 36 H Anion Gap 12 Blood Urea Nitrogen 49 H Creatinine 2.09 H Glucose Level 219 Calcium Level 9.7 Test 01/03/17 17:16 01/03/17 21:13 Bedside Glucose 198 206 Medications Medications Current Medications Oxycodone HCl (Roxicodone) 20 mg Q6H PRN PO MODERATE PAIN Last administered on 01/03/17 21:01; Admin Dose 20 MG; Start 12/31/16 at 23:30 Acetaminophen (Tylenol Tab) 650 mg Q6H PRN PO MILD PAIN LEVEL 1-3; Start at 21:42 Tacrolimus (Prograf) 2 mg QHS PO Last administered on 01/03/17 20:59; Admin Dose 2 MG; Start 12/31/16 at 21:56 Oxcarbazepine (Trileptal) 600 mg BID PO Last administered on 01/03/17 21:02; Admin Dose 600 MG; Start 01/01/17 at 09:00 Docusate Sodium (Colace) 100 mg BID PRN PO CONSTIPATION; Start 12/31/16 at 21:48 Sodium Chloride (Deep Sea) 1 spray Q2H PRN NASAL NASAL CONGESTION; Start at 22:00 Dextrose (D50w Syringe) 25 ml PRN PRN IV DECREASED GLUCOSE; Start 12/31/16 at 21 :48 Fluticasone Propionate (Flonase 0.05% Nasal) to each nostril DAILY PRN NASAL ALLERGIES; Start 01/01/17 at 09:00 Hydromorphone HCl (Dilaudid) 0.5 mg Q2H PRN IV SEVERE PAIN Last administered on 01/03/17 08:38; Admin Dose 0.5 MG; Start 12/31/16 at 21:54 Levothyroxine Sodium (Synthroid) 75 mcg DAILY@06 PO Last administered on 05:40; Admin Dose 75 MCG; Start 01/01/17 at 06:00 Loratadine (Claritin) 10 mg DAILY PO Last administered on 01/03/17 09:24; Admin Dose 10 MG; Start 01/01/17 at 09:00 Magnesium Oxide (Mag-Ox 400) 400 mg DAILY PO Last administered on 01/03/17 09: 25; Admin Dose 400 MG; Start 01/01/17 at 09:00 Sildenafil Citrate (Revatio) 20 mg TID PO Last administered on 01/03/17 21:00; Admin Dose 20 MG; Start 12/31/16 at 21:59 Sertraline HCl (Zoloft) 75 mg DAILY PO Last administered on 01/03/17 09:23; Admin Dose 75 MG; Start 01/01/17 at 09:00 Pantoprazole (Protonix Tab) 40 mg DAILY@06 PO Last administered on 01/03/17 05: 40; Admin Dose 40 MG; Start 01/01/17 at 06:00 Ondansetron HCl (Zofran Inj) 4 mg Q6H PRN IV NAUSEA AND/OR VOMITING Last administered on 01/01/17 13:05; Admin Dose 4 MG; Start 12/31/16 at 23:30 Miscellaneous Information 1 ea NOTE XX ; Start 01/01/17 at 09:00 Glucose (Glutose) 15 gm Q15M PRN PO DECREASED GLUCOSE; Start 12/31/16 at 21:52 Glucose (Glutose) 22.5 gm Q15M PRN PO DECREASED GLUCOSE; Start 12/31/16 at 21:52 Dextrose (D50w Syringe) 25 ml Q15M PRN IV DECREASED GLUCOSE; Start 12/31/16 at 21:48 Dextrose (D50w Syringe) 50 ml Q15M PRN IV DECREASED GLUCOSE; Start 12/31/16 at 21:48 Glucagon (Glucagen) 1 mg Q15M PRN IM DECREASED GLUCOSE; Start 12/31/16 at 21:49 Glucose (Glutose) 15 gm Q15M PRN BUCCAL DECREASED GLUCOSE; Start 12/31/16 at 21: 53 Nitroglycerin (Nitroglycerin 2% Oint) 0.5 inch Q6H PRN TD SBP > 160; Start 01/01 at 09:00 Lorazepam (Ativan) 0.5 mg Q6H PRN IV ANXIETY Last administered on 01/02/17 02: 39; Admin Dose 0.5 MG; Start 01/01/17 at 09:00 Bisacodyl (Dulcolax Supp) 10 mg DAILY PRN [place] CONSTIPATION; Start 12/31/16 at 21: 47 Metoprolol Tartrate (Lopressor) 25 mg Q8 PO Last administered on 01/03/17 21:07 ; Admin Dose 25 MG; Start 01/01/17 at 09:00 Insulin Glargine (Lantus) 18 unit DAILY SC Last administered on 01/03/17 09:22 ; Admin Dose 18 UNIT; Start 01/01/17 at 09:00 Apixaban (Eliquis) 2.5 mg BID PO Last administered on 01/03/17 21:02; Admin Dose 2.5 MG; Start 12/31/16 at 21:43 Ascorbic Acid (Vitamin C) 500 mg BID PO Last administered on 01/03/17 21:07; Admin Dose 500 MG; Start 12/31/16 at 21:44 Mirtazapine (Remeron) 15 mg HS PO Last administered on 01/03/17 20:59; Admin Dose 15 MG; Start 01/01/17 at 09:00 Patient Own Medication 1 ea Q28D IM ; Start 01/09/17 at 09:00 Prednisone (Prednisone 1 Mg/ ml Liq) 8 mg DAILY PO Last administered on 09:27; Admin Dose 8 MG; Start 01/01/17 at 09:00 Bumetanide (Bumex) 1 mg DAILY PO Last administered on 01/03/17 09:24; Admin Dose 1 MG; Start 01/01/17 at 09:00 Docusate Sodium (Colace) 100 mg BID PO Last administered on 01/03/17 21:02; Admin Dose 100 MG; Start 01/01/17 at 09:00 Senna (Senokot) 1 tab HS PO Last administered on 01/03/17 21:01; Admin Dose 1 TAB; Start 01/01/17 at 21:00 Magnesium Hydroxide (Milk Of Mag) 30 ml BID PRN PO CONSTIPATION Last administered on 01/03/17 21:09; Admin Dose 30 ML; Start 12/31/16 at 22:30 Lactulose (Enulose) 20 gm DAILY PRN PO CONSTIPATION Last administered on 12:46; Admin Dose 20 GM; Start 12/31/16 at 22:30 Bisacodyl (Dulcolax Supp) 10 mg DAILY PRN [place] CONSTIPATION; Start 12/31/16 at 22: 30 Acetaminophen (Tylenol Tab) 650 mg Q4H PRN PO PAIN; Start 12/31/16 at 22:30 Lorazepam (Ativan) 0.25 mg Q8H PRN PO ANXIETY Last administered on 01/03/17t 19: 48; Admin Dose 0.25 MG; Start 01/03/17 at 09:30 SHANICE DAVENPORT MD Jan 03, 2017 21:56
[2017-01-04] MEDS ORDERED: VANCOMYCIN 1.5 GM in SOD CHLORIDE 0.9% 250 ML IVPB SCH (01:00)
[2017-01-04] MEDS: IPRATROPIUM (NEB) 0.5 MG/2.5 ML AMP INH SCH ×4 (01:31→20:01)
[2017-01-04 02:00] VITALS: BP 134/71; RESP 18
[2017-01-04] MEDS: LORAZEPAM 0.5 MG TAB PO PRN (04:15)
[2017-01-04] MEDS: LEVOTHYROXINE 75 MCG TAB PO SCH (06:25)
[2017-01-04] MEDS: PANTOPRAZOLE (EC) 40 MG TAB PO SCH (06:25)
[2017-01-04] MEDS: METOPROLOL 25 MG TAB PO SCH ×3 (06:28→22:00)
[2017-01-04 06:43] LABS: BASOPHILS % 0.1 % (0.0-2.0); EOSINOPHILS # 0.2 10^3/ul (0.0-0.5); EOSINOPHILS % 2.8 % (0.0-7.0); HEMATOCRIT 32.9 % (37.0-47.0); LYMPHOCYTES # 0.7 10^3/ul (0.8-2.9); LYMPHOCYTES % 9.6 % (15.0-51.0); MEAN CORPUSCULAR HEMOGLOBIN 29.2 pg (29.0-33.0); MEAN CORPUSCULAR HGB CONC 30.4 g/dl (32.0-37.0); MEAN CORPUSCULAR VOLUME 96.2 fl (82.0-101.0); MEAN PLATELET VOLUME 9.5 fl (7.4-10.4); MONOCYTE # 0.6 10^3/ul (0.3-0.9); MONOCYTES % 7.4 % (0.0-11.0); NEUTROPHILS % 79.7 % (39.0-77.0); PLATELET COUNT 272 10^3/UL (140-415); RED BLOOD COUNT 3.42 10^6/ul (4.20-5.40); RED CELL DISTRIBUTION WIDTH 15.4 % (11.5-14.5); WHITE BLOOD COUNT 7.5 10^3/ul (4.8-10.8)
[2017-01-04] MEDS: HYDROmorphONE 1 MG/ML SYG IV PRN ×5 (06:51→17:42)
[2017-01-04 07:05] LABS: CALCIUM 9.5 mg/dl (8.4-10.2); CREATININE 1.99 mg/dl (0.44-1.00); MAGNESIUM 2.4 mg/dl (1.7-2.5); PHOSPHORUS 5.3 mg/dl (2.5-4.9)
[2017-01-04] MEDS: Insulin NOVOLOG SS Algorithm ONE SC SCH ×4 (07:05→20:48)
[2017-01-04] MEDS: ACCU-CHEK BARLOW XX SCH ×3 (07:05→17:39)
[2017-01-04 08:00] VITALS: BP 125/65; PULSE 85; RESP 18
[2017-01-04] MEDS: BUDESONIDE (NEB) 0.25 MG/2 ML AMP INH SCH ×2 (08:03→20:00)
[2017-01-04] MEDS: TACROLIMUS 1 MG CAP PO SCH ×2 (08:35→20:24)
[2017-01-04] MEDS: SILDENAFIL 20 MG TAB PO SCH ×3 (09:00→20:28)
[2017-01-04] MEDS: BUMETANIDE 1 MG TAB PO SCH (09:00)
[2017-01-04] MEDS: LORATADINE 10 MG TAB PO SCH (09:00)
[2017-01-04] MEDS: INSULIN GLARGINE [LANtus] 3 ML PEN SC SCH (09:00)
[2017-01-04] MEDS: OXCARBAZEPINE 300 MG TAB PO SCH ×2 (09:00→20:25)
[2017-01-04] MEDS: MAGNESIUM OXIDE 400 MG TAB PO SCH (09:00)
[2017-01-04] MEDS: BALSAM PERU/CASTOR OIL 60 GM TUBE TOP SCH (09:00)
[2017-01-04] MEDS: DOCUSATE SODIUM 100 MG CAP PO SCH ×2 (09:00→20:25)
[2017-01-04] MEDS: ASCORBIC ACID 500 MG TAB PO SCH ×2 (09:00→20:36)
[2017-01-04] MEDS: SERTRALINE 50 MG TAB PO SCH (09:00)
[2017-01-04] MEDS: PREDNISONE PO SCH (09:00)
[2017-01-04] MEDS: APIXABAN 5 MG TABLET PO SCH ×2 (09:00→20:24)
--- NOTE | 2017-01-04 10:25 | PN ---
DATE: 01/04/2017 SUBJECTIVE DATA: The patient is stable. No events overnight. The patient continues to have episodes of anxiety controlled with Ativan. No other events noted. OBJECTIVE DATA: VITAL SIGNS: Blood pressure is 134/71, respirations 18, pulse 72, temperature 98.3. HEENT: Head is normocephalic. NECK: Supple. HEART: Regular rate. LUNGS: Diminished breath sounds at the base. ABDOMEN: Soft, nontender to palpation. No rebound or guarding. EXTREMITIES: Negative for clubbing, cyanosis. No edema. DERMATOLOGIC: Clean. No rashes. MUSCULOSKELETAL: No joint effusion. NEUROLOGIC: No change in exam. MEDICATION: Reviewed. LABORATORY AND DIAGNOSTIC DATA: Shows a white count 7.4, hemoglobin 10.0, hematocrit 32.9, platelet count 272. Sodium 132, chloride 91, bicarb 35, BUN 54, creatinine 1.99, phosphorus 5.3. ASSESSMENT AND PLAN: 1. Chronic obstructive pulmonary disease exacerbation. The patient is clinically improving. Continue current medical management. Follow up with dialysis, supplemental oxygen. 2. Congestive heart failure, stable. The patient's x-ray was reviewed. Continue current diuretic regimen. Will follow up with Cardiology. 3. Paroxysmal atrial fibrillation. Currently in sinus rhythm. 4. End-stage renal disease. Status post renal transplant with chronic allograft failure. Renal function is fluctuating, but overall stable. Continue to monitor closely. Continue immunosuppressive regimen. 5. Positive urine culture. Unclear if this is colonization versus infection. Will place an Infection Disease consult for consideration of antibiotics. 6. Hypothyroidism. Continue Synthroid. 7. Anemia. Monitor H and H levels. 8. History of breast cancer. Continue to monitor. Appreciate oncology evaluation. 9. Diabetes. Continue Accu-Cheks and sliding scale. 10. Pulmonary hypertension. Continue current medical management. 11. Anxiety disorder and depression. Continue Zoloft. Dictated By: Cameron Rosenthal DO /[email or web address] /Document#: [id number]
[2017-01-04 13:30] VITALS: BP 120/65; RESP 18
--- NOTE | 2017-01-04 15:58 | RADRPT ---
PROCEDURE: XR Chest. CLINICAL INDICATION: Dyspnea, CHF TECHNIQUE: Anterior chest x-ray. COMPARISON: 01/03/2017 FINDINGS: Patchy and diffuse bilateral air space opacities are worse than on previous exam and may represent p neumonia or pulmonary edema. Surgical mir in bilateral axilla are unchanged from previous exam. No pleural effusion identified. There is no evidence of pneumothorax. The heart size is large. The cardiomediastinal silhouette is otherwise unremarkable. The soft tissues are normal. Osseous structures are unremarkable. IMPRESSION: 1. Diffuse bilateral air space opacities may represent pneumonia or pulmonary edema and/or worse th an on previous exam. 2. Cardiomegaly. RPTAT: QQ .Angel Burt MD, MD Date Time Electronically viewed and signed by .Angel Burt MD, on 01/04/2017 15:58 .M/
--- NOTE | 2017-01-04 19:39 | CONS ---
Date/Time of Note Date/Time of Note DATE: 01/04/17 TIME: 19:39 Assessment/Plan Assessment/Plan Chief Complaint/Hosp Course History of breast cancer with lung metastasis. The patient is on medical management. cont Faslodex as outpt Anemia. Monitor hemoglobin and hematocrit levels. Chronic obstructive pulmonary disease exacerbation. Congestive heart failure exacerbation. History of paroxysmal atrial fibrillation. End-stage renal disease. Status post-renal transplant with chronic failure. Hypothyroidism. Continue Synthroid. Diabetes. Continue current insulin regimen. Pulmonary hypertension. Continue sildenafil. Depression. Continue Zoloft. Problems: Consultation Date/Type/Reason Admit Date/Time Dec 31, 2016 at 18:36 24 HR Interval Summary Free Text/Dictation STABLE NAD Exam/Review of Systems Vital Signs Vitals Vital Signs Date Time Temp Pulse Resp B/P Pulse Ox O2 Delivery O2 Flow Rate FiO2 01/04/17 13:23 70 22 92 Nasal Cannula 4.0 01/04/17 02:00 98.3 134/71 Intake and Output 01/03/17 01/03/17 01/04/17 14:59 22:59 06:59 Intake Total 760 ml 840 ml 200 ml Balance 760 ml 840 ml 200 ml Exam HEENT: Head is normocephalic. NECK: Supple. HEART: Regular rate. CHEST - POST L MRM/ALND- ANTOINETTE LUNGS: Diminished breath sounds at the base. ABDOMEN: Soft, nontender to palpation. No rebound or guarding. EXTREMITIES: Negative for clubbing, cyanosis. No edema. DERMATOLOGIC: Clean. No rashes. MUSCULOSKELETAL: No joint effusion. Results Result Diagram: 01/04/1723 01/04/17 0623 Results 24 hrs Laboratory Tests Test 01/03/17 21:13 01/04/17 02:47 01/04/17 06:23 01/04/17 07:54 Bedside Glucose 206 153 147 White Blood Count 7.5 Red Blood Count 3.42 L Hemoglobin 10.0 L Hematocrit 32.9 L Mean Corpuscular Volume 96.2 Mean Corpuscular Hemoglobin 29.2 Mean Corpuscular Hemoglobin Concent 30.4 L Red Cell Distribution Width 15.4 H Platelet Count 272 Mean Platelet Volume 9.5 Neutrophils % 79.7 H Lymphocytes % 9.6 L Monocytes % 7.4 Eosinophils % 2.8 Basophils % 0.1 Nucleated Red Blood Cells % 0.0 Neutrophils # (Manual) 6.0 Lymphocytes # 0.7 L Monocytes # 0.6 Eosinophils # 0.2 Basophils # 0.0 Nucleated Red Blood Cells # 0.0 Sodium Level 132 L Potassium Level 5.0 Chloride Level 91 L Carbon Dioxide Level 35 H Anion Gap 11 Blood Urea Nitrogen 54 H Creatinine 1.99 H Glucose Level 134 # Calcium Level 9.5 Phosphorus Level 5.3 H Magnesium Level 2.4 Test 01/04/17 12:12 01/04/17 17:37 01/04/17 19:26 Bedside Glucose 192 243 H 246 H Medications Medications Current Medications Oxycodone HCl (Roxicodone) 20 mg Q6H PRN PO MODERATE PAIN Last administered on 01/03/17 21:01; Admin Dose 20 MG; Start 12/31/16 at 23:30 Acetaminophen (Tylenol Tab) 650 mg Q6H PRN PO MILD PAIN LEVEL 1-3; Start at 21:42 Tacrolimus (Prograf) 2 mg QHS PO Last administered on 01/03/17 20:59; Admin Dose 2 MG; Start 12/31/16 at 21:56 Oxcarbazepine (Trileptal) 600 mg BID PO Last administered on 01/03/17 21:02; Admin Dose 600 MG; Start 01/01/17 at 09:00 Docusate Sodium (Colace) 100 mg BID PRN PO CONSTIPATION; Start 12/31/16 at 21:48 Sodium Chloride (Deep Sea) 1 spray Q2H PRN NASAL NASAL CONGESTION; Start at 22:00 Dextrose (D50w Syringe) 25 ml PRN PRN IV DECREASED GLUCOSE; Start 12/31/16 at 21 :48 Fluticasone Propionate (Flonase 0.05% Nasal) to each nostril DAILY PRN NASAL ALLERGIES; Start 01/01/17 at 09:00 Hydromorphone HCl (Dilaudid) 0.5 mg Q2H PRN IV SEVERE PAIN Last administered on 01/04/17 17:42; Admin Dose 0.5 MG; Start 12/31/16 at 21:54 Levothyroxine Sodium (Synthroid) 75 mcg DAILY@06 PO Last administered on 06:25; Admin Dose 75 MCG; Start 01/01/17 at 06:00 Loratadine (Claritin) 10 mg DAILY PO Last administered on 01/03/17 09:24; Admin Dose 10 MG; Start 01/01/17 at 09:00 Magnesium Oxide (Mag-Ox 400) 400 mg DAILY PO Last administered on 01/03/17 09: 25; Admin Dose 400 MG; Start 01/01/17 at 09:00 Sildenafil Citrate (Revatio) 20 mg TID PO Last administered on 01/03/17 21:00; Admin Dose 20 MG; Start 12/31/16 at 21:59 Sertraline HCl (Zoloft) 75 mg DAILY PO Last administered on 01/03/17 09:23; Admin Dose 75 MG; Start 01/01/17 at 09:00 Pantoprazole (Protonix Tab) 40 mg DAILY@06 PO Last administered on 01/04/17 06 :25; Admin Dose 40 MG; Start 01/01/17 at 06:00 Ondansetron HCl (Zofran Inj) 4 mg Q6H PRN IV NAUSEA AND/OR VOMITING Last administered on 01/01/17 13:05; Admin Dose 4 MG; Start 12/31/16 at 23:30 Miscellaneous Information 1 ea NOTE XX ; Start 01/01/17 at 09:00 Glucose (Glutose) 15 gm Q15M PRN PO DECREASED GLUCOSE; Start 12/31/16 at 21:52 Glucose (Glutose) 22.5 gm Q15M PRN PO DECREASED GLUCOSE; Start 12/31/16 at 21:52 Dextrose (D50w Syringe) 25 ml Q15M PRN IV DECREASED GLUCOSE; Start 12/31/16 at 21:48 Dextrose (D50w Syringe) 50 ml Q15M PRN IV DECREASED GLUCOSE; Start 12/31/16 at 21:48 Glucagon (Glucagen) 1 mg Q15M PRN IM DECREASED GLUCOSE; Start 12/31/16 at 21:49 Glucose (Glutose) 15 gm Q15M PRN BUCCAL DECREASED GLUCOSE; Start 12/31/16 at 21: 53 Nitroglycerin (Nitroglycerin 2% Oint) 0.5 inch Q6H PRN TD SBP > 160; Start 01/01 at 09:00 Bisacodyl (Dulcolax Supp) 10 mg DAILY PRN [place] CONSTIPATION; Start 12/31/16 at 21: 47 Metoprolol Tartrate (Lopressor) 25 mg Q8 PO Last administered on 01/04/17 06: 28; Admin Dose 25 MG; Start 01/01/17 at 09:00 Insulin Glargine (Lantus) 18 unit DAILY SC Last administered on 01/03/17 09:22 ; Admin Dose 18 UNIT; Start 01/01/17 at 09:00 Apixaban (Eliquis) 2.5 mg BID PO Last administered on 01/03/17 21:02; Admin Dose 2.5 MG; Start 12/31/16 at 21:43 Ascorbic Acid (Vitamin C) 500 mg BID PO Last administered on 01/03/17 21:07; Admin Dose 500 MG; Start 12/31/16 at 21:44 Mirtazapine (Remeron) 15 mg HS PO Last administered on 01/03/17 20:59; Admin Dose 15 MG; Start 01/01/17 at 09:00 Patient Own Medication 1 ea Q28D IM ; Start 01/09/17 at 09:00 Prednisone (Prednisone 1 Mg/ ml Liq) 8 mg DAILY PO Last administered on 09:27; Admin Dose 8 MG; Start 01/01/17 at 09:00 Bumetanide (Bumex) 1 mg DAILY PO Last administered on 01/03/17 09:24; Admin Dose 1 MG; Start 01/01/17 at 09:00 Docusate Sodium (Colace) 100 mg BID PO Last administered on 01/03/17 21:02; Admin Dose 100 MG; Start 01/01/17 at 09:00 Senna (Senokot) 1 tab HS PO Last administered on 01/03/17 21:01; Admin Dose 1 TAB; Start 01/01/17 at 21:00 Magnesium Hydroxide (Milk Of Mag) 30 ml BID PRN PO CONSTIPATION Last administered on 01/03/17 21:09; Admin Dose 30 ML; Start 12/31/16 at 22:30 Lactulose (Enulose) 20 gm DAILY PRN PO CONSTIPATION Last administered on 12:46; Admin Dose 20 GM; Start 12/31/16 at 22:30 Bisacodyl (Dulcolax Supp) 10 mg DAILY PRN [place] CONSTIPATION; Start 12/31/16 at 22: 30 Acetaminophen (Tylenol Tab) 650 mg Q4H PRN PO PAIN; Start 12/31/16 at 22:30 Lorazepam (Ativan) 0.25 mg Q8H PRN PO ANXIETY Last administered on 01/04/17t 04 :15; Admin Dose 0.25 MG; Start 01/03/17 at 09:30; Status Future Hold SHANICE DAVENPORT MD Jan 04, 2017 19:39
[2017-01-04 19:40] VITALS: BP 121/58; RESP 20
[2017-01-04 19:53] LABS: AADO2 Arterial 5.2 mmHg (7.0-24.0); Allen Test ACCEPTAB; Arterial Base Excess 5.5 mmol/L (-3.0-3); Arterial COHb 0.4 % (0.0-3.0); Arterial MetHb 0.2 % (0.0-1.5); Arterial Total Hemglobin 10.8 g/dl (12.0-18.0); MODE NASAL CANNULA
[2017-01-04] MEDS: SENNA TAB PO SCH (20:24)
[2017-01-04] MEDS: MIRTAZAPINE 15 MG TAB PO SCH (20:24)
[2017-01-04] MEDS ORDERED: NALOXONE (0.4 MG/ML) INJ IV ONE (20:30)
[2017-01-04] MEDS ORDERED: ASCORBIC ACID 500 MG TAB ONE (20:32)
[2017-01-04 22:30] VITALS: RESP 19
[2017-01-04] MEDS ORDERED: NORepinephrine 8MG/250 ML (PMX 250 ML IV SCH (23:00)
[2017-01-04] MEDS ORDERED: ALBUTEROL/IPRATROPIUM (NEB) 3 ML AMP HHN SCH (23:00)
[2017-01-04] MEDS ORDERED: SOD CHLORIDE 0.9% 1,000 ML IV SCH (23:00)
[2017-01-04] MEDS ORDERED: SOD CHLORIDE 0.9% 1,000 ML IV ONE (23:00)
[2017-01-04] MEDS ORDERED: NALOXONE (0.4 MG/ML) INJ IV PRN (23:00)
[2017-01-04 23:40] LABS: ABNORMAL IP MESSAGE 1; BASOPHILS % 0.1 % (0.0-2.0); EOSINOPHILS % 0.2 % (0.0-7.0); HEMATOCRIT 28.9 % (37.0-47.0); HEMOGLOBIN 9.2 g/dl (12.0-16.0); LYMPHOCYTES # 0.3 10^3/ul (0.8-2.9); LYMPHOCYTES % 2.3 % (15.0-51.0); MEAN CORPUSCULAR HEMOGLOBIN 30.3 pg (29.0-33.0); MEAN CORPUSCULAR HGB CONC 31.8 g/dl (32.0-37.0); MEAN CORPUSCULAR VOLUME 95.1 fl (82.0-101.0); MEAN PLATELET VOLUME 9.6 fl (7.4-10.4); MONOCYTE # 0.4 10^3/ul (0.3-0.9); MONOCYTES % 3.3 % (0.0-11.0); PLATELET COUNT 293 10^3/UL (140-415); RED BLOOD COUNT 3.04 10^6/ul (4.20-5.40); RED CELL DISTRIBUTION WIDTH 15.4 % (11.5-14.5); WHITE BLOOD COUNT 12.2 10^3/ul (4.8-10.8)
[2017-01-04 23:42] LABS: POSITIVE DIFF @See below
[2017-01-04] MEDS ORDERED: VANCOMYCIN IV PER PHARMACY XX SCH (23:45)
[2017-01-04 23:56] LABS: INR 1.45; PROTIME 17.7 Sec (12.2-14.2); PT RATIO 1.4
[2017-01-04 23:57] LABS: PARTIAL THROMBOPLASTIN TIME 33.8 Sec (25.0-35.0)
[2017-01-05] MEDS ORDERED: VANCOMYCIN 1 GM (PMX) 250 ML IVPB SCH
[2017-01-05 00:02] LABS: ALANINE AMINOTRANSFERASE 46 IU/L (13-69); ALBUMIN 2.8 g/dl (3.3-4.9); ALBUMIN/GLOBULIN RATIO 1.12; ALKALINE PHOSPHATASE 118 IU/L (42-121); AMYLASE 74 U/L (11-123); ANION GAP 10 (8-16); ASPARTATE AMINO TRANSFERASE 65 IU/L (15-46); BILIRUBIN,INDIRECT 0.1 mg/dl (0-1.1); BILIRUBIN,TOTAL 0.1 mg/dl (0.2-1.3); BLOOD UREA NITROGEN 54 mg/dl (7-20); CALCIUM 9.3 mg/dl (8.4-10.2); CARBON DIOXIDE 34 mmol/L (21-31); CHLORIDE 92 mmol/L (97-110); CREATININE 2.22 mg/dl (0.44-1.00); GLUCOSE 232 mg/dl (70-220); LACTATE DEHYDROGENASE 1065 IU/L (313-618); POTASSIUM 4.7 mmol/L (3.5-5.1); SODIUM 131 mmol/L (135-144); TOTAL PROTEIN 5.3 g/dl (6.1-8.1)
[2017-01-05 00:03] LABS: CREATINE KINASE < 20 IU/L (23-200)
[2017-01-05 00:12] LABS: TROPONIN-I 0.119 ng/ml (0.00-0.12)
[2017-01-05] MEDS ORDERED: CEFEPIME 2GM/50 ML (PMX) 50 ML IVPB SCH (00:30)
--- NOTE | 2017-01-05 00:49 | RADRPT ---
PROCEDURE: XR Chest. CLINICAL INDICATION: Endotracheal tube placement. TECHNIQUE: Single frontal chest x-ray. COMPARISON: 01/04/2017 FINDINGS: Endotracheal tube tip at the level of the aortic knob above hussein. NG tube tip is in the stomach.. Heart is enlarged.. Redemonstrated diffuse interstitial prominence consistent with CHF, slightly de creased.. There is a small right pleural effusion.. There is no pneumothorax. The osseous structu res are unremarkable. There are surgical clips in the left chest and axilla. IMPRESSION: Endotracheal tube tip above hussein. NG tube tip in stomach. Increased CHF. Small left pleural effusi on. RPTAT: [facility] .Bladimir Sprague MD, MD Date Time Electronically viewed and signed by .Bladimir Sprague MD, on 01/05/2017 00:49 .K/
[2017-01-05 00:53] LABS: D-DIMER 5027.56 ng/ml (<460)
[2017-01-05 01:19] LABS: C-REACTIVE PROTEIN 2.9 mg/dl (0.0-0.9)
[2017-01-05] MEDS ORDERED: IPRATROPIUM (HFA) 12.9 GM INHALER INH SCH (02:00)
[2017-01-05] MEDS ORDERED: ALBUTEROL 18 GM INHALER INH SCH (02:00)
[2017-01-05 06:06] LABS: AADO2 Arterial 625.2 mmHg (7.0-24.0); Allen Test ACCEPTAB; Arterial Base Excess 5.7 mmol/L (-3.0-3); Arterial COHb 0.3 % (0.0-3.0); Arterial Fraction of Oxyhgb 80.1 % (93.0-99.0); Arterial HCO3 30.9 mmol/L (22.0-26.0); Arterial MetHb 0.2 % (0.0-1.5); Arterial Total Hemglobin 11.2 g/dl (12.0-18.0); MODE VENT - AC
[2017-01-05] MEDS ORDERED: ASC500 PO (08:14)
[2017-01-05] MEDS ORDERED: DOCU-159 PO (08:19)
[2017-01-05] MEDS ORDERED: LEVO75TA5 PO ×2 (08:19→08:28)
[2017-01-05] MEDS ORDERED: BISA10SU75 PR (08:19)
[2017-01-05] MEDS ORDERED: BUDE0.25 INHALATION (08:19)
[2017-01-05] MEDS ORDERED: BUME1TAB18 PO (08:19)
[2017-01-05] MEDS ORDERED: LORA10TA3 PO (08:19)
[2017-01-05] MEDS ORDERED: FLUT16SP17 NASAL (08:28)
[2017-01-05] MEDS ORDERED: LANT3I SC (08:28)
[2017-01-05] MEDS ORDERED: NOVO3I SC (08:28)
[2017-01-05] MEDS ORDERED: NIT1OI2 TD (08:42)
[2017-01-05] MEDS ORDERED: MAGN400O4 PO (08:42)
[2017-01-05] MEDS ORDERED: MIRT-30 PO (08:42)
[2017-01-05] MEDS ORDERED: METO-448 PO (08:42)
[2017-01-05] MEDS ORDERED: PANT40SU PO (08:42)
[2017-01-05] MEDS ORDERED: OXCA300T3 PO (08:42)
[2017-01-05] MEDS ORDERED: FULV250D2 IM (08:42)
[2017-01-05] MEDS ORDERED: MAGN400T22 PO (08:42)
[2017-01-05] MEDS ORDERED: ONDA4VIA2 IV (08:42)
[2017-01-05] MEDS ORDERED: PRED5SOL PO (08:47)
[2017-01-05] MEDS ORDERED: SILD20TA13 PO (08:58)
[2017-01-05] MEDS ORDERED: SERT50TA PO (08:58)
[2017-01-05] MEDS ORDERED: TACR5CAP3 PO ×2 (08:58)
[2017-01-05] MEDS ORDERED: SENN25TA21 PO (08:58)
[2017-01-05] MEDS ORDERED: APIX2.5T PO (09:12)
[2017-01-05] MEDS ORDERED: IPRA4AER INHALATION (09:12)
[2017-01-05] MEDS ORDERED: ACET-2047 PO (09:12)
--- NOTE | 2017-01-05 09:13 | DS ---
Date/Time of Note Date/Time of Note DATE: 01/05/17 TIME: 09:08 Discharge Summary Admission/Discharge Info Admit Date/Time Dec 31, 2016 at 18:36 Discharge Date/Time Jan 05, 2017 at 00:14 Discharge Diagnosis 1. Recurrent respiratory failure 2.Toxic metabolic encephalopathy. 3. Dysphagia, on dysphagia diet. 4. End-stage renal disease, with history of transplant. 5. Diabetes mellitus. 6. Hypertension. 7. Paroxysmal atrial fibrillation. 8. Metastatic breast CA. 9. Hypothyroidism. 10. Deep tissue injury of the coccyx. 11. Impairments in self-care, mobility and cognition. Patient Condition: Serious Hospital Course Patient was admitted for comprehensive interdisciplinary rehab. She began making steady functional gains, with improved self care, mobility and cognition. Over the weekend patient was noted to have gradually worsening activity tolerance. On 01/04/17 she had worsening cognition, increased SOB. Betsy Abreu was called, patient was intubated and required transfer to ICU. Home Meds Reported Medications Tacrolimus* (Prograf*) 5 Mg Capsule, 2 MG PO QPM, CAP 01/05/17 Tacrolimus* (Prograf*) 5 Mg Capsule, 2 MG PO after BREAKFAST, CAP 01/05/17 Sildenafil Citrate* (Revatio*) 20 Mg Tab, 20 MG PO TID, TAB 01/05/17 Sertraline Hcl* (Zoloft*) 50 Mg Tablet, 75 MG PO DAILY, #30 TAB 01/05/17 Sennosides (Senna Laxative) 25 Mg Tablet, 25 MG PO QPM, TAB 01/05/17 Prednisone* (Prednisone* Liq) 5 Mg/5 Ml Solution, 8 MG PO DAILY, ML 01/05/17 Fulvestrant (Faslodex) 250 Mg/5 Ml Disp.syrin, 500 MG IM Q28D, MG 01/05/17 Pantoprazole Sodium (Protonix) 40 Mg Granpkt.dr, 40 MG PO DAILY 01/05/17 Oxcarbazepine* (Trileptal*) 300 Mg Tablet, 300 MG PO BID, TAB 01/05/17 Ondansetron Hcl* (Ondansetron Hcl* Inj) 4 Mg/2 Ml Vial, 4 MG IV Q6 Y for NAUSEA , VIAL 01/05/17 Nitroglycerin* (Nitro-Bid* Oint (Pkt)) 1 Inch Oint, 0.5 INCH TD Q6 Y for CHEST PAIN, PACKET 01/05/17 Mirtazapine* (Remeron*) 15 Mg Tab, 15 MG PO HS, TAB 01/05/17 Metoprolol Tartrate* (Lopressor*) 25 Mg Tab, 25 MG PO Q8, #60 TAB hold for hr below 65 or sbp below 105 01/05/17 Magnesium Oxide (Magox 400) 400 Mg Tablet, 400 MG PO DAILY, TAB 01/05/17 Magnesium Hydroxide* (Milk Of Magnesia*) 400 Mg/5 Ml Oral.susp, 30 ML PO BID Y for CONSTIPATION, ML 01/05/17 Levothyroxine Sodium* (Levothyroxine Sodium*) 75 Mcg Tablet, 75 MCG PO BEFORE BREAKFAST, #30 TAB 01/05/17 Insulin Glargine* (Lantus*) 100 Unit/Ml Soln, 18 UNIT SC DAILY, #1 VIAL 01/05/17 Insulin Aspart* (Novolog Insulin Pen*) 100 Unit/Ml Soln, 0 SC .SLIDING SCALE AC , EA 01/05/17 Fluticasone Propionate* (Fluticasone Propionate* Nasal) 50 Mcg/[place] - 16 Gm [place].susp, 1 SPRAY NASAL DAILY, #1 BOTTLE TO EACH NOSTRIL 01/05/17 Loratadine* (Loratadine*) 10 Mg Tablet, 10 MG PO DAILY, #30 TAB 01/05/17 Levothyroxine Sodium* (Levothyroxine Sodium*) 75 Mcg Tablet, 75 MCG PO BEFORE BREAKFAST, #30 TAB 01/05/17 Docusate Sodium* (Docusate Sodium*) 100 Mg Capsule, 100 MG PO BID, #60 CAP 01/05/17 Bumetanide* (Bumetanide*) 1 Mg Tablet, 1 MG PO DAILY, TAB 01/05/17 Budesonide* (Budesonide*) 0.25 Mg/2 Ml Ampul.neb, 0.25 MG INHALATION BID, AMP 01/05/17 Bisacodyl* (Bisacodyl*) 10 Mg Supp, 10 MG [place] DAILY, SUPP 01/05/17 Ascorbic Acid (Vitamin C) 500 Mg Tab, 500 MG PO BID, TAB 01/05/17 Primary Care Provider Tin Colon DO Pending Labs Laboratory Tests Test 01/04/17 12:12 01/04/17 17:37 01/04/17 19:26 01/04/17 19:32 Bedside Glucose 192mg/dL (70-220) 243mg/dL (70-220) 246mg/dL (70-220) Blood Gas Specimen Source Blood arterial Arterial Blood Date Drawn 01/04/2017 7:40:20 PM Arterial Blood pH (Temp corrected) 7.283 (7.350-7.450) Arterial Blood pCO2 (Temp correct) 73.6mmhg (35-45) Arterial Blood pO2 (Temp corrected) 144.2mmHG (80-90.0) Arterial Blood HCO3 34.0mmol/L (22.0-26.0) Arterial Blood Base Excess 5.5mmol/L (-3.0-3) Arterial Blood Oxygen Saturation 98.6mmHG (95.0-100.0) Rey Test ACCEPTAB Arterial Blood Gas Puncture Site Right Radial Arterial Blood Carboxyhemoglobin 0.4% (0.0-3.0) Arterial Blood Methemoglobin 0.2% (0.0-1.5) Blood Gas A-a O2 Differential 5.2mmHg (7.0-24.0) Oxyhemoglobin Percent 98.0% (93.0-99.0) Total Hemoglobin 10.8g/dl (12.0-18.0) Blood Gas Temperature 37.0C Blood Gas Modality NASAL CANNULA FiO2 33.0% Blood Gas Critical Value Read Back KEVIN RN Blood Gas Notified Whom MA Blood Gas Notified Time 01/04/2017 7:53:07 PM Test 01/04/17 20:44 01/04/17 22:25 01/04/17 23:00 01/04/17 23:30 Bedside Glucose 208mg/dL (70-220) 252mg/dL (70-220) White Blood Count 12.210^3/ul (4.8-10.8) Red Blood Count 3.0410^6/ul (4.20-5.40) Hemoglobin 9.2g/dl (12.0-16.0) Hematocrit 28.9% (37.0-47.0) Mean Corpuscular Volume 95.1fl (82.0-101.0) Mean Corpuscular Hemoglobin 30.3pg (29.0-33.0) Mean Corpuscular Hemoglobin Concent 31.8g/dl (32.0-37.0) Red Cell Distribution Width 15.4% (11.5-14.5) Platelet Count 05954^3/UL (140-415) Mean Platelet Volume 9.6fl (7.4-10.4) Neutrophils % 93.0% (39.0-77.0) Lymphocytes % 2.3% (15.0-51.0) Monocytes % 3.3% (0.0-11.0) Eosinophils % 0.2% (0.0-7.0) Basophils % 0.1% (0.0-2.0) Nucleated Red Blood Cells % 0.0/100WBC (0.0-0.0) Neutrophils # (Manual) 11.410^3/ul (1.7-7.5) Lymphocytes # 0.310^3/ul (0.8-2.9) Monocytes # 0.410^3/ul (0.3-0.9) Eosinophils # 0.010^3/ul (0.0-0.5) Basophils # 0.010^3/ul (0.0-0.1) Nucleated Red Blood Cells # 0.010^3/ul (0.0-0.0) Prothrombin Time 17.7Sec (12.2-14.2) Prothrombin Time Ratio 1.4 INR International Normalized Ratio 1.45 Activated Partial Thromboplast Time 33.8Sec (25.0-35.0) D-Dimer 5027.56ng/ml (<460) D-Dimer Comment Sodium Level 131mmol/L (135-144) Potassium Level 4.7mmol/L (3.5-5.1) Chloride Level 92mmol/L (97-110) Carbon Dioxide Level 34mmol/L (21-31) Anion Gap 10 (8-16) Blood Urea Nitrogen 54mg/dl (7-20) Creatinine 2.22mg/dl (0.44-1.00) Glucose Level 232mg/dl (70-220) Lactic Acid Level 2.6mmol/L (0.5-2.0) Calcium Level 9.3mg/dl (8.4-10.2) Total Bilirubin 0.1mg/dl (0.2-1.3) Direct Bilirubin 0.00mg/dl (0.00-0.20) Indirect Bilirubin 0.1mg/dl (0-1.1) Aspartate Amino Transf (AST/SGOT) 65IU/L (15-46) Alanine Aminotransferase (ALT/SGPT) 46IU/L (13-69) Alkaline Phosphatase 118IU/L (42-121) Lactate Dehydrogenase 1065IU/L (313-618) Creatine Kinase < 20IU/L (23-200) Creatine Kinase Index Creatinine Kinase MB (Mass) 1.70ng/ml (0.0-2.4) Troponin I 0.119ng/ml (0.00-0.12) C-Reactive Protein 2.9mg/dl (0.0-0.9) Total Protein 5.3g/dl (6.1-8.1) Albumin 2.8g/dl (3.3-4.9) Globulin 2.50g/dl (1.3-3.2) Albumin/Globulin Ratio 1.12 Amylase Level 74U/L (11-123) Lipase 53U/L (23-300) Random Cortisol 34.6ug/dl Blood Gas Specimen Source Blood arterial Arterial Blood Date Drawn 01/05/2017 12:10:08 AM Arterial Blood pH (Temp corrected) 7.429 (7.350-7.450) Arterial Blood pCO2 (Temp correct) 47.7mmhg (35-45) Arterial Blood pO2 (Temp corrected) 40.1mmHG (80-90.0) Arterial Blood HCO3 30.9mmol/L (22.0-26.0) Arterial Blood Base Excess 5.7mmol/L (-3.0-3) Arterial Blood Oxygen Saturation 80.5mmHG (95.0-100.0) Rey Test ACCEPTAB Arterial Blood Gas Puncture Site Right Radial Arterial Blood Carboxyhemoglobin 0.3% (0.0-3.0) Arterial Blood Methemoglobin 0.2% (0.0-1.5) Blood Gas A-a O2 Differential 625.2mmHg (7.0-24.0) Oxyhemoglobin Percent 80.1% (93.0-99.0) Total Hemoglobin 11.2g/dl (12.0-18.0) Blood Gas Temperature 37.0C Blood Gas Respiration Rate 16.0 Blood Gas Actual Respiration Rate 22 Blood Gas Modality VENT - AC FiO2 100.0% Blood Gas Tidal Volume 500.0mL Blood Gas Low PEEP Setting 5.0cmH2O Blood Gas Critical Value Read Back NATALYA JACK Blood Gas Notified Whom RICHARD Blood Gas Notified Time 01/05/2017 12:21:13 AM ALEK KRISHNAN MD Jan 05, 2017 09:13
[2017-01-09] MEDS ORDERED: FASLODEX IM SCH (09:00)
== END 2017-01-05 00:14 | disposition short-term general hospital (02) | DRG 945 ==
LOC: VRC 18:36 → ICU 01-04 22:32 → VRC 01-05 00:07
PROVIDERS: ADMIT Physical Medicine & Rehabilitation; ATTEND Internal Medicine Nephrology
PROC: F07Z5FZ Bed Mobility Treatment using Assistive, Adaptive, Supportive or Protective Equipment (ICD-10-PCS; principal; 2017-01-01)
PROC: F07Z8FZ Transfer Training Treatment using Assistive, Adaptive, Supportive or Protective Equipment (ICD-10-PCS; 2017-01-01)
PROC: F07Z9FZ Gait Training/Functional Ambulation Treatment using Assistive, Adaptive, Supportive or Protective Equipment (ICD-10-PCS; 2017-01-01)
PROC: F08Z2FZ Grooming/Personal Hygiene Treatment using Assistive, Adaptive, Supportive or Protective Equipment (ICD-10-PCS; 2017-01-01)
PROC: F08Z1FZ Dressing Techniques Treatment using Assistive, Adaptive, Supportive or Protective Equipment (ICD-10-PCS; 2017-01-01)
PROC: F08Z0FZ Bathing/Showering Techniques Treatment using Assistive, Adaptive, Supportive or Protective Equipment (ICD-10-PCS; 2017-01-01)
DX: Z51.89 Encounter for other specified aftercare (principal); N18.6 End stage renal disease; L89.150 Pressure ulcer of sacral region, unstageable; I13.2 Hypertensive heart and chronic kidney disease with heart failure and with stage 5 chronic kidney disease, or end stage renal disease; T86.12 Kidney transplant failure; C78.00 Secondary malignant neoplasm of unspecified lung; R13.10 Dysphagia, unspecified; E11.22 Type 2 diabetes mellitus with diabetic chronic kidney disease; I50.32 Chronic diastolic (congestive) heart failure; J44.9 Chronic obstructive pulmonary disease, unspecified; I48.0 Paroxysmal atrial fibrillation; D64.9 Anemia, unspecified; E03.9 Hypothyroidism, unspecified; Z79.4 Long term (current) use of insulin; Z85.3 Personal history of malignant neoplasm of breast; F41.9 Anxiety disorder, unspecified; F32.9 Major depressive disorder, single episode, unspecified; Z99.2 Dependence on renal dialysis
CPT/HCPCS: 36600; 71010; 80048; 80053; 81001; 82150; 82533; 82550; 82553; 82803; 82962; 83605; 83615; 83690; 83735; 84100; 84484; 85025; 85378; 85610; 85730; 86140; 86850; 86900; 86901; 87040; 87081; 87086; 92507; 92523; 92526; 92610; 94640; 94664; 94770; 97110; 97163; 97530; 97535; C1751; J0692; J1170; J1815; J2060; J2310; J2405; J3370; J7030; J7050; J7507

== ENCOUNTER 2017-01-05 00:15 | Inpatient (IN) | payer MEDICARE, OTHER ==
[2017-01-04] VITALS (8 sets, daily range): BP systolic 74–142; BP diastolic 46–99; PULSE 106–125; RESP 16–22
[~2017-01-05] VITALS: Ht 162.6 cm; Wt 73.0 kg
[2017-01-05] VITALS (52 sets, daily range): BP systolic 79–177; BP diastolic 30–152; PULSE 67–124; RESP 12–26
--- NOTE | 2017-01-05 00:40 | EN ---
Date/Time of Note Date/Time of Note DATE: 01/05/17 TIME: 00:35 ER Progress Note I was called to the patient's bedside because of a CODE BLUE. In short: I was called to the patient's bedside because of a CODE BLUE. The patient apparently was agitated just prior to cardiac arrest. The patient had received pain medication earlier in the day, Narcan was given. Upon arrival the patient is being bagged and chest compressions are being given General: Unresponsive Head: Normocephalic, atraumatic Eyes: Fixed and dilated pupils ENT: Moist mucous membranes, vomitus and oropharynx Neck: Supple, no lymphadenopathy Respiratory: No spontaneous respiratory activity Cardiovascular: No spontaneous cardiac activity Abdominal: Soft, non-protuberant, no pulsatile mass : Deferred MSK: No spontaneous motor activity Neurologic: No spontaneous neurologic activity Skin: No evidence of trauma Cardiopulmonary Resuscitation by me: See code documentation for specific details. ACLS and BLS were performed with high quality chest compressions and minimal interruptions. Reversible causes were assessed and treated. PROCEDURE(S): Intubation Note: Indication: Airway protection Consent: This was an emergent situation, implied consent was observed RSI Medications: None required Tube size: 7.5 Secured at: 23 of the lip Procedure: Endotracheal intubation was performed. The patient was preoxygenated with supplemental oxygen, the room was set up with emergent airway equipment including [id number], suction, adjunct airways. An initial view with a glide scope was unable to visualize the cords. Direct visualization of the cords was performed with direct laryngoscopy using a 4.0 Mac blade, insertion of the endotracheal tube through the cords was visualized by the uke operator. Bilateral breath sounds were auscultated, color change was observed. The tube was then secured in a postintubation chest x-ray was ordered. The patient tolerated the procedure well there were no complications. Central Line Note: Consent: Unable to obtain, critically ill. Indication: Critically ill patient requiring specialized vascular access for fluid or pressor management Location: Right femoral vein Procedure: Sterile procedure was observed throughout insertion of the central line. The insertion site was prepped with sterile solution. Ultrasound-guided identification of the vein was performed. Insertion of a needle into the vein was obtained with return of dark, nonpulsatile blood. The wire was then threaded through the needle without complication. The wire was then identified within the vein using ultrasound. A small skin incision was made, the needle was removed intact, dilation of the vein was performed and insertion of a triple lumen catheter was completed. The catheter was then sutured to the skin. All 3 ports carlos back and flushed without difficulty. A sterile dressing was applied. The patient tolerated the procedure well there were no complications. A post-line chest x-ray was ordered as indicated. CODE BLUE events: Upon arrival I directed the CODE BLUE. The patient was given epinephrine. The patient had recently had a normal Accu-Chek and the patient had been given Narcan. The patient was intubated by myself. A femoral line was placed. The patient had return of spontaneous circulation after a single dose of epinephrine. Postresuscitation laboratory testing and treatment will be cared for in the intensive care unit. The hospitalist physician was at the bedside and escorted the patient to the intensive care unit. Further care by admitting team. Disposition: Transfer to the intensive care unit Diagnostic impression: Asystolic cardiac arrest Aspiration event Acute respiratory failure RITA SIFUENTES MD Jan 05, 2017 00:40
[2017-01-05] MEDS ORDERED: PROPOFOL 100 ML ONE (00:46)
[2017-01-05] MEDS: PROPOFOL 100 ML IV SCH ×3 (01:00→20:00)
[2017-01-05] MEDS ORDERED: VANCOMYCIN 1 GM (PMX) 250 ML IVPB SCH (01:30)
[2017-01-05] MEDS ORDERED: NALOXONE (0.4 MG/ML) INJ IV PRN (01:30)
[2017-01-05] MEDS ORDERED: VANCOMYCIN IV PER PHARMACY XX SCH (02:00)
[2017-01-05] MEDS ORDERED: NORepinephrine 8MG/250 ML (PMX 250 ML IV SCH (02:00)
[2017-01-05] MEDS: ALBUTEROL 18 GM INHALER INH SCH ×4 (02:00→19:46)
[2017-01-05] MEDS: SOD CHLORIDE 0.9% 1,000 ML IV SCH ×3 (02:00→23:22)
[2017-01-05] MEDS ORDERED: ALBUTEROL/IPRATROPIUM (NEB) 3 ML AMP HHN SCH (02:00)
[2017-01-05] MEDS: CEFEPIME 2GM/50 ML (PMX) 50 ML IVPB SCH ×2 (02:30→09:14)
[2017-01-05] MEDS: IPRATROPIUM (HFA) 12.9 GM INHALER INH SCH ×4 (02:33→19:46)
[2017-01-05] MEDS ORDERED: VANCOMYCIN 1.5 GM in SOD CHLORIDE 0.9% 250 ML IVPB SCH (03:00)
[2017-01-05 06:06] LABS: AADO2 Arterial 612.2 mmHg (7.0-24.0); Allen Test ACCEPTAB; Arterial Base Excess 6.1 mmol/L (-3.0-3); Arterial COHb 0.3 % (0.0-3.0); Arterial Fraction of Oxyhgb 89.4 % (93.0-99.0); Arterial MetHb 0.3 % (0.0-1.5); Arterial Total Hemglobin 10.4 g/dl (12.0-18.0); MODE VENT - AC
[2017-01-05] MEDS ORDERED: ASC500 PO (08:14)
[2017-01-05] MEDS ORDERED: LEVO75TA5 PO ×2 (08:19→08:28)
[2017-01-05] MEDS ORDERED: BUDE0.25 INHALATION (08:19)
[2017-01-05] MEDS ORDERED: LORA10TA3 PO (08:19)
[2017-01-05] MEDS ORDERED: BUME1TAB18 PO (08:19)
[2017-01-05] MEDS ORDERED: DOCU-159 PO (08:19)
[2017-01-05] MEDS ORDERED: BISA10SU75 PR (08:19)
[2017-01-05] MEDS ORDERED: NOVO3I SC (08:28)
[2017-01-05] MEDS ORDERED: FLUT16SP17 NASAL (08:28)
[2017-01-05] MEDS ORDERED: LANT3I SC (08:28)
[2017-01-05] MEDS ORDERED: MAGN400T22 PO (08:42)
[2017-01-05] MEDS ORDERED: METO-448 PO (08:42)
[2017-01-05] MEDS ORDERED: NIT1OI2 TD (08:42)
[2017-01-05] MEDS ORDERED: ONDA4VIA2 IV (08:42)
[2017-01-05] MEDS ORDERED: PANT40SU PO (08:42)
[2017-01-05] MEDS ORDERED: FULV250D2 IM (08:42)
[2017-01-05] MEDS ORDERED: MIRT-30 PO (08:42)
[2017-01-05] MEDS ORDERED: OXCA300T3 PO (08:42)
[2017-01-05] MEDS ORDERED: MAGN400O4 PO (08:42)
[2017-01-05] MEDS ORDERED: PRED5SOL PO (08:47)
[2017-01-05] MEDS ORDERED: SILD20TA13 PO (08:58)
[2017-01-05] MEDS ORDERED: SENN25TA21 PO (08:58)
[2017-01-05] MEDS ORDERED: TACR5CAP3 PO ×2 (08:58)
[2017-01-05] MEDS ORDERED: SERT50TA PO (08:58)
[2017-01-05 09:07] LABS: AADO2 Arterial 557.7 mmHg (7.0-24.0); Allen Test ACCEPTAB; Arterial Base Excess 3.5 mmol/L (-3.0-3); Arterial COHb 0.2 % (0.0-3.0); Arterial Fraction of Oxyhgb 97.8 % (93.0-99.0); Arterial HCO3 26.2 mmol/L (22.0-26.0); Arterial MetHb 0.3 % (0.0-1.5); Arterial Total Hemglobin 10.1 g/dl (12.0-18.0); MODE VENT - AC
[2017-01-05] MEDS ORDERED: IPRA4AER INHALATION (09:12)
[2017-01-05] MEDS ORDERED: ACET-2047 PO (09:12)
[2017-01-05] MEDS ORDERED: APIX2.5T PO (09:12)
[2017-01-05 09:33] LABS: ABNORMAL IP MESSAGE 1; BASOPHILS % 0.1 % (0.0-2.0); HEMATOCRIT 29.4 % (37.0-47.0); HEMOGLOBIN 9.1 g/dl (12.0-16.0); LYMPHOCYTES # 0.3 10^3/ul (0.8-2.9); LYMPHOCYTES % 2.3 % (15.0-51.0); MEAN CORPUSCULAR HEMOGLOBIN 28.8 pg (29.0-33.0); MEAN PLATELET VOLUME 9.2 fl (7.4-10.4); MONOCYTE # 0.5 10^3/ul (0.3-0.9); NEUTROPHILS % 92.9 % (39.0-77.0); PLATELET COUNT 246 10^3/UL (140-415); RED BLOOD COUNT 3.16 10^6/ul (4.20-5.40); RED CELL DISTRIBUTION WIDTH 15.8 % (11.5-14.5); WHITE BLOOD COUNT 13.1 10^3/ul (4.8-10.8)
[2017-01-05 09:34] LABS: POSITIVE DIFF @See below
--- NOTE | 2017-01-05 09:42 | RADRPT ---
PROCEDURE: XR Chest. CLINICAL INDICATION: Respiratory arrest TECHNIQUE: An AP view of the chest was obtained. COMPARISON: Chest x-ray dated 01/04/2017 FINDINGS: The endotracheal tube tip is approximately 3.2 cm above the hussein. The tip of the enteric tube ex tends below the left diaphragm. There is prominence of the interstitial and central pulmonary vascular markings. There is a small r ight pleural effusion with right middle and lower lobe consolidation. No pneumothorax is seen. The cardiomediastinal silhouette is partially obscured. The osseous structures demonstrate senescent changes. There are mediastinal and bilateral axillary soft tissue surgical clips. IMPRESSION: 1. Small right pleural effusion with right middle and lower lobe consolidation, increased when comp ared to the prior examination. 2. Findings suggesting pulmonary vascular congestion, not significantly changed. 3. Tubes and lines, as described above. RPTAT: HH .Sultana Fuentes MD, MD Date Time Electronically viewed and signed by .Sultana Fuentes MD, on 01/05/2017 09:42 .G/
[2017-01-05 09:55] LABS: ALBUMIN 3.1 g/dl (3.3-4.9); ALBUMIN/GLOBULIN RATIO 1.24; BILIRUBIN,INDIRECT 0.1 mg/dl (0-1.1); BILIRUBIN,TOTAL 0.1 mg/dl (0.2-1.3); CALCIUM 9.2 mg/dl (8.4-10.2); CREATININE 2.29 mg/dl (0.44-1.00); POTASSIUM 5.1 mmol/L (3.5-5.1); TOTAL PROTEIN 5.6 g/dl (6.1-8.1)
--- NOTE | 2017-01-05 10:07 | HP ---
DATE OF ADMISSION: 01/05/2017 CHIEF COMPLAINT: Status post code arrest. HISTORY OF PRESENT ILLNESS: This is a 70-year-old female with a past medical history of metastatic breast cancer on Faslodex. History of end-stage renal disease, status post- renal transplant. History of hypothyroidism, hypertension, diabetes, COPD, pulmonary hypertension. History of chronic pain syndrome, who initially presented to [facility] in October for weakness. Patient at that time was found to be respiratory failure, COPD with diastolic heart failure. The patient was treated with bronchodilator, steroids, diuretics, and was placed on intermittent BiPAP and given sildenafil. The patient was then stabilized and transferred to [facility] where after having a prolonged course the patient was weaned off BiPAP and taken to [facility] for continued care. While at [facility] Follow blood pressure, acute rehab. The patient was stable yesterday. Yesterday evening the patient underwent a code arrest. It was believed that the patient was given pain medications and then became altered. The patient was given Narcan and the patient was alert and subsequently 20 to 30 minutes thereafter, patient apparently became more altered. The patient underwent chest compressions, and was given 1 dose of epinephrine with spontaneous return of circulation. The patient was subsequently intubated, transferred to the Intensive Care Unit. While in the Intensive Care Unit the patient was placed on presser support. The patient has had adequate urinary output. There has been no reports of hemoptysis, hematemesis, or hematochezia. PAST MEDICAL HISTORY: As stated above. History of breast cancer on Faslodex. History of end-stage renal disease, status post- renal transplant, history of hypothyroidism, hypertension, diabetes, COPD, and pulmonary hypertension. PAST SURGICAL HISTORY: Status post-renal transplant. FAMILY HISTORY: Noncontributory. SOCIAL HISTORY: Does not drink, smoke, or do drugs. MEDICATIONS: Medications have been reviewed and reconciled. REVIEW OF SYSTEMS: Unable to adequately perform review of systems, the patient is altered. Pertinent positives obtained by reviewing medical records, speaking to hospital staff, and HPI, otherwise negative. PHYSICAL EXAMINATION: VITAL SIGNS: Blood pressure is 100/62, respirations 18, pulse is 80, temperature 98.8. HEENT: Head is normocephalic. Pupils are reactive to light. NECK: Supple. HEART: Regular rate. LUNGS: Diminished breath sounds at the base. ABDOMEN: Soft, nontender to palpation. No guarding. EXTREMITIES: Negative for clubbing, cyanosis. No edema. DERMATOLOGIC: No rashes. MUSCULOSKELETAL: No joint effusion. NEUROLOGIC: Limited exam as patient is obtunded. MEDICATIONS: Reviewed. DATA: From 01/04/2017 at 23:00 showed a white count 12.2, hemoglobin 9.2, hematocrit 28.9, platelet count 293,000. Sodium 131, potassium 4.6, chloride 92, bicarb 34, BUN 44, creatinine 2.22, glucose 232, lactic acid 2.6. LDH was 1000. IMAGING: The patient's chest x-ray on 01/04/2017 shows NG tube in stomach. Increased CHF. Small pleural effusion. ASSESSMENT AND PLAN: This is a 71-year-old female who presents with: 1. Status post code arrest. Underlying etiology is possibly respiratory from aspiration. The patient is currently is intubated on full respiratory support. Plan at this point is to place a Cardiology consult for evaluation. Will rule out cardiac etiology of code arrest by checking serial troponin's. Check a 2D echo. Will also place a pulmonary consult for evaluation. Monitor closely. 2. Ventilator dependent respiratory failure. Etiology secondary to congestive heart failure, aspiration pneumonia, and code arrest. The patient's ventilator settings. Arterial blood gases were reviewed. Will follow up chest x-ray. Will follow up with pulmonary for recommendations. 3. Acute congestive heart failure exacerbation. The patient's chest x-ray shows increased pulmonary congestion. Plan is to decrease IV fluids. If possible, will defer diuretic therapy in the setting of shock. Monitor closely. 4. Shock, presumed septic. Etiology may be secondary to aspiration pneumonia. The patient is currently on broad-spectrum antibiotics. Will continue. Continue pressor support. Continue gentle IV hydration. Will place an Infectious disease consult for evaluation. 5. History of proximal atrial fibrillation, currently in sinus rhythm. Continue medical management. 6. Status post-renal transplant with chronic allograft failure. Patient's baseline renal creatinine is around 1.5 mg/dL. The patient currently appears to be in acute kidney injury. This is likely due to hemodynamics sepsis and possible acute tubular necrosis. Plan is to get a full evaluation. Will check a urinalysis with microanalysis. Check urine electrolytes. Low suspicion for acute rejection at this time. Would continue the patient's current immunosuppressive regimen. 7. Hypothyroidism. Continue Synthroid. 8. Anemia. Monitor hemoglobin and hematocrit levels. 9. History of breast cancer. Will follow up with Oncology for any further recommendations. 10. Diabetes. Continue Accu-Cheks and sliding scale. 11. Pulmonary hypertension. Subtitle. 12. Anxiety/depression. Continue Zoloft. 13. Hyponatremia. Will monitor sodium levels. Please note, I discussed case with the patient's brother and up dated him on her condition. DISCHARGE TIME SPENT: Please note, I spent up to 25 minutes face to face time with this patient. The patient is full code. Dictated By: Cameron Rosenthal DO /[email or web address] /Document#: [id number]
[2017-01-05] MEDS ORDERED: PREDNISONE PO SCH (10:30)
[2017-01-05] MEDS: DOCUSATE SODIUM 100 MG CAP PO SCH ×2 (10:30→20:50)
[2017-01-05] MEDS ORDERED: NITROGLYCERIN 2% 1 GM OINT PKT TD PRN (10:30)
[2017-01-05] MEDS ORDERED: NON-FORMULARY/PATIENT OWN MED (Pantoprazole Sodium (Protonix) 40 MG) PO SCH (10:30)
[2017-01-05] MEDS ORDERED: TACROLIMUS 2 MG PO SCH ×2 (10:30→21:00)
[2017-01-05] MEDS ORDERED: ACETAMINOPHEN 325 MG TAB PO PRN (10:30)
[2017-01-05] MEDS ORDERED: MAGNESIUM HYDROXIDE 30ML CUP PO PRN (10:30)
[2017-01-05 10:50] LABS: MAGNESIUM 2.2 mg/dl (1.7-2.5); PHOSPHORUS 2.9 mg/dl (2.5-4.9)
[2017-01-05] MEDS ORDERED: GLUCOSE GEL 15 GRAM TUBE PO PRN ×2 (11:00)
[2017-01-05] MEDS ORDERED: DEXTROSE 50% 50 ML SYRINGE IV PRN (11:00)
[2017-01-05] MEDS ORDERED: GLUCAGON 1 MG INJ IM PRN (11:00)
[2017-01-05] MEDS ORDERED: GLUCOSE GEL 15 GRAM TUBE BUCCAL PRN (11:00)
[2017-01-05] MEDS: BUDESONIDE (NEB) 0.25 MG/2 ML AMP NEB SCH ×2 (11:23→20:14)
[2017-01-05] MEDS: FLUTICASONE 0.05% 16 GM NAS SPRAY NASAL SCH (11:58)
[2017-01-05] MEDS: MAGNESIUM OXIDE 400 MG TAB PO SCH (12:39)
[2017-01-05] MEDS: SERTRALINE 50 MG TAB PO SCH (12:39)
[2017-01-05] MEDS: predniSONE 1 MG TAB PO SCH (12:40)
[2017-01-05] MEDS: LORATADINE 10 MG TAB PO SCH (12:40)
[2017-01-05] MEDS: APIXABAN 5 MG TABLET PO SCH ×2 (12:40→20:50)
[2017-01-05] MEDS: ASCORBIC ACID 500 MG TAB PO SCH ×2 (12:40→20:51)
[2017-01-05] MEDS: OXCARBAZEPINE 300 MG TAB PO SCH ×2 (12:41→20:50)
[2017-01-05] MEDS: predniSONE 5 MG TAB PO SCH (12:41)
[2017-01-05] MEDS: BUMETANIDE 1 MG TAB PO SCH (12:41)
[2017-01-05] MEDS: TACROLIMUS 1 MG CAP PO SCH ×2 (12:49→20:51)
[2017-01-05] MEDS ORDERED: NON-FORMULARY/PATIENT OWN MED (Albuterol/Ipratropium* (Combivent Respimat*) 1 PUFF) INHALATION SCH (13:00)
[2017-01-05] MEDS: SILDENAFIL 20 MG TAB PO SCH ×2 (13:00→20:50)
[2017-01-05] MEDS: INSULIN GLARGINE [LANtus] 3 ML PEN SC SCH (13:17)
[2017-01-05] MEDS: INSULIN ASPART [NOVOLOG] 3 ML PEN SC SCH ×3 (13:17→20:57)
[2017-01-05] MEDS: METOPROLOL 25 MG TAB PO SCH ×2 (14:00→23:20)
--- NOTE | 2017-01-05 17:57 | CONS ---
Date/Time of Note Date/Time of Note DATE: 01/05/17 TIME: 17:43 Assessment/Plan Assessment/Plan Chief Complaint/Hosp Course Assessment: 1. s/p cardiopulmonary arrest: Most likely due to pulmonary arrest 2. P afib: currently in NSR 3. History of renal failure status post renal transplant 4. Acute on chronic hypoxemic hypercapnic respiratory failure status post tracheostomy currently on the vent 5. Shock: currently blood pressure has improved 6. ANEMIA 7. breast cancer 8. history of HTN: currently hypotensive but improved 9. anxiety 10. DM 11. Hypothyroidism: on synthroid. Recommendations: cont eliquis as long as no signs of active bleeding vent support for now anti- rejection medications to be adjusted as per renal team cont DM control thyroid supplement off of pressors now. resume betablocker once/ if BP remains stable. correct lytes prn cont tele monitoring cont ICU care. More than 38 minutes of critical care time was for management and treatment of this patient excluding any procedures. Thank you for this referral I will continue to follow along with you. AUGUSTINA MALDONADO MD [facility] Problems: Consultation Date/Type/Reason Admit Date/Time Jan 05, 2017 at 00:15 Date of Consultation: Jan 05, 2017 Type of Consultation: cardiology Reason for Consultation Pafib. cardiopulm arrest. Referring Provider: SUSAN SIMENTAL DO Hx of Present Illness CHIEF COMPLAINT: Status post code arrest. HISTORY OF PRESENT ILLNESS: Dear Dr Simental, thank you for this referral. This is a 70-year-old female with past medical history of metastatic breast cancer, History of end-stage renal disease, status post- renal transplant, Afib , hypertension, diabetes, COPD, pulmonary hypertension and chronic pain syndrome, who was transferred to ICU after a cardiopulm arrest. History was obtained from extensive review of the old chart. Case was also discussed with the staff and physicians. Patient also is known to me from previous admissions to [facility]. Per review of chart: Patient was at [facility] for continued care. While at [facility] . The patient was stable yesterday. Yesterday evening the patient underwent a code arrest. It was believed that the patient was given pain medications and then became altered. The patient was given Narcan and the patient was alert and subsequently 20 to 30 minutes thereafter, patient apparently became more altered. The patient underwent chest compressions, and was given 1 dose of epinephrine with spontaneous return of circulation. The patient was subsequently intubated, transferred to the Intensive Care Unit. While in the Intensive Care Unit the patient was placed on presser support. but her BP has improved and she is off of pressors now in ICU and on vent. She has been in atrial fibrillation previously while at [facility]. In the ICU also she was in atrial fibrillation but however she has converted back to sinus rhythm sinus spontaneously. patient is nonverbal and is unable to provide any history to me. PAST MEDICAL HISTORY: As stated above. History of breast cancer on Faslodex. History of end-stage renal disease, status post- renal transplant, history of hypothyroidism, hypertension, Afib diabetes, COPD, and pulmonary hypertension. anemia. anxiety PAST SURGICAL HISTORY: Status post-renal transplant. FAMILY HISTORY: Noncontributory. SOCIAL HISTORY: Does not drink, smoke, or do drugs at this time MEDICATIONS: Medications have been reviewed . Exam/Review of Systems Vital Signs Vitals Vital Signs Date Time Temp Pulse Resp B/P Pulse Ox O2 Delivery O2 Flow Rate FiO2 01/05/17 16:52 76 12 100 50 01/05/17 15:45 131/63 01/05/17 12:00 99.5 01/05/17 06:30 Mechanical Ventilator Intake and Output 01/04/17 01/04/17 01/05/17 15:00 23:00 07:00 Intake Total 1227.075 ml Output Total 50 ml 405 ml Balance -50 ml 822.075 ml Exam General: intubated on vent. HEENT: NC/AT. pupils are equal. round. NECK: NO JVD. no stridor. CV: RRR. systolic murmur; no gallop or rubs. PULM: no wheezing, + mild rhonchi. GI: SOFT, NT, ND, no rebound or guarding Extremity: trace B/L LE edema. no clubbing. neuro: sedated. Psych: unable to assess rectal: deferred : normal ECHO 12/16/16: Personally reviewed 1. Normal left ventricular systolic function. Normal left ventricular cavity size. Moderate concentric left ventricular hypertrophy. Ejection fraction is visually estimated at 65 %. Abnormal Diastolic Function. 2. There is moderate enlargement of left atrium. 3. Mild mitral leaflet calcification. Mild mitral annular calcification. Trace mitral regurgitation. 4. Aortic sclerosis without stenosis. Trace aortic valve regurgitation. 5. Normal appearance of the tricuspid valve. Estimated peak PA systolic pressure 38 mmHg. There is mild tricuspid regurgitation. Results Result Diagram: 01/05/1712 01/05/17 0912 Results 24 hrs Laboratory Tests Test 01/05/17 01:30 01/05/17 06:00 01/05/17 07:49 01/05/17 09:12 Blood Gas Specimen Source Blood arterial Blood arterial Arterial Blood Date Drawn 01/05/2017 1:15:39 AM 01/05/2017 8:50:04 AM Arterial Blood pH (Temp corrected) 7.442 7.517 H Arterial Blood pCO2 (Temp correct) 46.5 H 33.1 L Arterial Blood pO2 (Temp corrected) 54.3 *L 122.2 H Arterial Blood HCO3 31.0 H 26.2 H Arterial Blood Base Excess 6.1 H 3.5 H Arterial Blood Oxygen Saturation 89.9 L 98.3 Rey Test ACCEPTAB ACCEPTAB Arterial Blood Gas Puncture Site Right Radial Right Radial Arterial Blood Carboxyhemoglobin 0.3 0.2 Arterial Blood Methemoglobin 0.3 0.3 Blood Gas A-a O2 Differential 612.2 H 557.7 H Oxyhemoglobin Percent 89.4 L 97.8 Total Hemoglobin 10.4 L 10.1 L Blood Gas Temperature 37.0 37.0 Blood Gas Respiration Rate 16.0 16.0 Blood Gas Actual Respiration Rate 16 16 Blood Gas Modality VENT - AC VENT - AC FiO2 100.0 100.0 Blood Gas Tidal Volume 500.0 500.0 Blood Gas Low PEEP Setting 5.0 5.0 Blood Gas Critical Value Read Back NATALYA JACK Blood Gas Notified Whom RICHARD BROWN Blood Gas Notified Time 01/05/2017 1:56:49 AM 01/05/2017 9:06:54 AM Lactic Acid Level 1.4 1.3 White Blood Count 13.1 H Red Blood Count 3.16 L Hemoglobin 9.1 L Hematocrit 29.4 L Mean Corpuscular Volume 93.0 Mean Corpuscular Hemoglobin 28.8 L Mean Corpuscular Hemoglobin Concent 31.0 L Red Cell Distribution Width 15.8 H Platelet Count 246 Mean Platelet Volume 9.2 Neutrophils % 92.9 H Lymphocytes % 2.3 L Monocytes % 4.0 Eosinophils % 0.0 Basophils % 0.1 Nucleated Red Blood Cells % 0.0 Neutrophils # (Manual) 12.2 H Lymphocytes # 0.3 L Monocytes # 0.5 Eosinophils # 0.0 Basophils # 0.0 Nucleated Red Blood Cells # 0.0 Sodium Level 134 L Potassium Level 5.1 Chloride Level 95 L Carbon Dioxide Level 31 Anion Gap 13 Blood Urea Nitrogen 55 H Creatinine 2.29 H Glucose Level 225 H Calcium Level 9.2 Phosphorus Level 2.9 # Magnesium Level 2.2 Total Bilirubin 0.1 L Direct Bilirubin 0.00 Indirect Bilirubin 0.1 Aspartate Amino Transf (AST/SGOT) 49 H Alanine Aminotransferase (ALT/SGPT) 44 Alkaline Phosphatase 107 Total Protein 5.6 L Albumin 3.1 L Globulin 2.50 Albumin/Globulin Ratio 1.24 Test 01/05/17 13:13 Bedside Glucose 210 Medications Medications Current Medications Propofol 100 ml @ 2.1 mls/hr Q12H IV Last administered on 01/05/17 13:15; Admin Dose 6.3 MLS/HR; Start 01/05/17 at 01:00 Cefepime HCl (Maxipime 2gm/50 ml (Pmx)) 50 ml @ 100 mls/hr DAILY IVPB Last administered on 01/05/17 09:14; Admin Dose 100 MLS/HR; Start 01/05/17 at 02:30 Naloxone HCl 0.4 mg 0.4 mg Q4 PRN IV SEDATION; Start 01/05/17 at 01:30 Sodium Chloride 1,000 ml @ 75 mls/hr [id number] IV Last administered on 09:31; Admin Dose 75 MLS/HR; Start 01/05/17 at 02:00 Norepinephrine (Levophed) 250 ml @ 1.875 mls/ hr TITRATE IV Last administered on 01/05/17 06:15; Admin Dose 1.875 MLS/HR; Start 01/05/17 at 02:00 Vancomycin HCl (Vanco Iv Per Pharmacy) PER PHARMACY DOSING NOTE XX ; Start 01/05 at 02:00 Acetaminophen (Tylenol Tab) 650 mg Q6H PRN PO PAIN AND OR ELEVATED TEMP; Start 01/05/17 at 10:30 Apixaban (Eliquis) 2.5 mg BID PO Last administered on 01/05/17 12:40; Admin Dose 2.5 MG; Start 01/05/17 at 10:30 Ascorbic Acid (Vitamin C) 500 mg BID PO Last administered on 01/05/17 12:40; Admin Dose 500 MG; Start 01/05/17 at 10:30 Bisacodyl (Dulcolax Supp) 10 mg DAILY MD ; Start 01/06/17 at 09:00 Budesonide (Pulmicort (Neb)) 0.25 mg BID NEB Last administered on 01/05/17 11: 23; Admin Dose 0.25 MG; Start 01/05/17 at 10:30 Bumetanide (Bumex) 1 mg DAILY PO Last administered on 01/05/17 12:41; Admin Dose 1 MG; Start 01/05/17 at 10:30 Docusate Sodium (Colace) 100 mg BID PO ; Start 01/05/17 at 10:30 Fluticasone Propionate (Flonase 0.05% Nasal) 1 spray DAILY NASAL Last administered on 01/05/17 11:58; Admin Dose 1 SPRAY; Start 01/05/17 at 11:00 Fulvestrant (Faslodex) 500 mg Q28D IM ; Start 01/05/17 at 10:30; Status UNV Insulin Glargine (Lantus) 18 unit DAILY SC Last administered on 01/05/17 13:17 ; Admin Dose 18 UNIT; Start 01/05/17 at 10:30 Loratadine (Claritin) 10 mg DAILY PO Last administered on 01/05/17 12:40; Admin Dose 10 MG; Start 01/05/17 at 11:00 Magnesium Hydroxide (Milk Of Mag) 30 ml BID PRN PO CONSTIPATION; Start at 10:30 Magnesium Oxide (Mag-Ox 400) 400 mg DAILY PO Last administered on 01/05/17 12: 39; Admin Dose 400 MG; Start 01/05/17 at 10:30 Metoprolol Tartrate (Lopressor) 25 mg Q8 PO ; Start 01/05/17 at 14:00 Mirtazapine (Remeron) 15 mg HS PO ; Start 01/05/17 at 21:00 Nitroglycerin (Nitroglycerin 2% Oint) 0.5 inch Q6 PRN TD CHEST PAIN; Start 03/13 at 10:30 Ondansetron HCl (Zofran Inj) 4 mg Q6H PRN IV NAUSEA; Start 01/05/17 at 10:30 Sertraline HCl (Zoloft) 75 mg DAILY PO Last administered on 01/05/17 12:39; Admin Dose 75 MG; Start 01/05/17 at 10:30 Sildenafil Citrate (Revatio) 20 mg TID PO ; Start 01/05/17 at 13:00 Tacrolimus (Prograf) 2 mg QPM PO ; Start 01/05/17 at 21:00 Pantoprazole (Protonix Tab) 40 mg DAILY@06 PO ; Start 01/06/17 at 06:00 Senna (Senokot) 1 tab HS PO ; Start 01/05/17 at 21:00 Prednisone (Prednisone) 5 mg DAILY PO Last administered on 01/05/17 12:41; Admin Dose 5 MG; Start 01/05/17 at 12:00 Prednisone (Prednisone) 3 mg DAILY PO Last administered on 01/05/17 12:40; Admin Dose 3 MG; Start 01/05/17 at 12:00 Miscellaneous Information 1 ea NOTE XX ; Start 01/05/17 at 11:00 Glucose (Glutose) 15 gm Q15M PRN PO DECREASED GLUCOSE; Start 01/05/17 at 11:00 Glucose (Glutose) 22.5 gm Q15M PRN PO DECREASED GLUCOSE; Start 01/05/17 at 11: 00 Dextrose (D50w Syringe) 25 ml Q15M PRN IV DECREASED GLUCOSE; Start 01/05/17 at 11:00 Dextrose (D50w Syringe) 50 ml Q15M PRN IV DECREASED GLUCOSE; Start 01/05/17 at 11:00 Glucagon (Glucagen) 1 mg Q15M PRN IM DECREASED GLUCOSE; Start 01/05/17 at 11:00 Glucose (Glutose) 15 gm Q15M PRN BUCCAL DECREASED GLUCOSE; Start 01/05/17 at 11 :00 Oxcarbazepine (Trileptal) 600 mg BID PO Last administered on 01/05/17 12:41; Admin Dose 600 MG; Start 01/05/17 at 12:00 Insulin Aspart NOVOLOG *MILD* ALGORI... Q4 SC Last administered on 01/05/17 13 :17; Admin Dose 2 UNIT; Start 01/05/17 at 13:00 Vancomycin HCl/ Sodium Chloride (Vancocin/NS) 250 ml @ 83.333 mls/ hr Q48H IVPB ; Start 01/07/17 at 03:00 AUGUSTINA MALDONADO MD Jan 05, 2017 17:55
--- NOTE | 2017-01-05 18:30 | CONS ---
Date/Time of Note Date/Time of Note DATE: 01/05/17 TIME: 18:26 Assessment/Plan Assessment/Plan Chief Complaint/Hosp Course History of breast cancer with lung metastasis. The patient is on medical management. cont Faslodex as outpt Anemia. Monitor hemoglobin and hematocrit levels. 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 Congestive heart failure exacerbation. Hypothyroidism. Diabetes. Continue current insulin regimen. Pulmonary hypertension. Depression. Problems: Consultation Date/Type/Reason Admit Date/Time Jan 05, 2017 at 00:15 Date of Consultation: Jan 05, 2017 Type of Consultation: HEMEON Reason for Consultation BREAST CANCER ANEMIA Referring Provider: SUSAN SIMENTAL of Present Illness This is a 70-year-old female with past medical history of metastatic breast cancer WITH KNOWN LUNG METS ON FASLODEX OUTPT , History of end-stage renal disease, status post- renal transplant, Afib, hypertension, diabetes, COPD, pulmonary hypertension and chronic pain syndrome, who was transferred to ICU after a cardiopulm arrest. History was obtained from extensive review of the old chart. Patient also is known to me from previous admissions to [facility]. Yesterday evening the patient underwent a code arrest. It was believed that the patient was given pain medications and then became altered. The patient was given Narcan and the patient was alert and subsequently 20 to 30 minutes thereafter, patient apparently became more altered. The patient underwent chest compressions, and was given 1 dose of epinephrine with spontaneous return of circulation. The patient was subsequently intubated, transferred to the Intensive Care Unit. While in the Intensive Care Unit the patient was placed on presser support. but her BP has improved and she is off of pressors now in ICU and on vent. She has been in atrial fibrillation previously while at [facility]. In the ICU also she was in atrial fibrillation but however she has converted back to sinus rhythm sinus spontaneously. patient is nonverbal and is unable to provide any history to me. Past Medical History PAST MEDICAL HISTORY: As stated above. History of breast cancer on Faslodex. History of end-stage renal disease, status post- renal transplant, history of hypothyroidism, hypertension, diabetes, COPD, and pulmonary hypertension. PAST SURGICAL HISTORY: Status post-renal transplant. FAMILY HISTORY: Noncontributory. SOCIAL HISTORY: Does not drink, smoke, or do drugs. MEDICATIONS: Medications have been reviewed and reconciled. REVIEW OF SYSTEMS: Unable to adequately perform review of systems, the patient is altered. Pertinent positives obtained by reviewing medical records, speaking to hospital staff, and HPI, otherwise negative. Exam/Review of Systems Vital Signs Vitals Vital Signs Date Time Temp Pulse Resp B/P Pulse Ox O2 Delivery O2 Flow Rate FiO2 01/05/17 16:52 76 12 100 50 01/05/17 15:45 131/63 01/05/17 12:00 99.5 01/05/17 06:30 Mechanical Ventilator Intake and Output 01/04/17 01/04/17 01/05/17 15:00 23:00 07:00 Intake Total 1227.075 ml Output Total 50 ml 405 ml Balance -50 ml 822.075 ml Exam HEENT: PT IS ORALLY INTUBATED, Head is normocephalic. NECK: Supple. HEART: Regular rate. CHEST - POST L MRM/ALND- ANTOINETTE LUNGS: Diminished breath sounds at the base. ABDOMEN: Soft, nontender to palpation. No rebound or guarding. EXTREMITIES: Negative for clubbing, cyanosis. No edema. DERMATOLOGIC: Clean. No rashes. MUSCULOSKELETAL: No joint effusion. neuro: sedated. Psych: unable to assess rectal: deferred Results Result Diagram: 01/05/1791101/05/1712 Results 24 hrs Laboratory Tests Test 01/05/17 01:30 01/05/17 06:00 01/05/17 07:49 01/05/17 09:12 Blood Gas Specimen Source Blood arterial Blood arterial Arterial Blood Date Drawn 01/05/2017 1:15:39 AM 01/05/2017 8:50:04 AM Arterial Blood pH (Temp corrected) 7.442 7.517 H Arterial Blood pCO2 (Temp correct) 46.5 H 33.1 L Arterial Blood pO2 (Temp corrected) 54.3 *L 122.2 H Arterial Blood HCO3 31.0 H 26.2 H Arterial Blood Base Excess 6.1 H 3.5 H Arterial Blood Oxygen Saturation 89.9 L 98.3 Rey Test ACCEPTAB ACCEPTAB Arterial Blood Gas Puncture Site Right Radial Right Radial Arterial Blood Carboxyhemoglobin 0.3 0.2 Arterial Blood Methemoglobin 0.3 0.3 Blood Gas A-a O2 Differential 612.2 H 557.7 H Oxyhemoglobin Percent 89.4 L 97.8 Total Hemoglobin 10.4 L 10.1 L Blood Gas Temperature 37.0 37.0 Blood Gas Respiration Rate 16.0 16.0 Blood Gas Actual Respiration Rate 16 16 Blood Gas Modality VENT - AC VENT - AC FiO2 100.0 100.0 Blood Gas Tidal Volume 500.0 500.0 Blood Gas Low PEEP Setting 5.0 5.0 Blood Gas Critical Value Read Back NATALYA JACK Blood Gas Notified Whom RICHARD BROWN Blood Gas Notified Time 01/05/2017 1:56:49 AM 01/05/2017 9:06:54 AM Lactic Acid Level 1.4 1.3 White Blood Count 13.1 H Red Blood Count 3.16 L Hemoglobin 9.1 L Hematocrit 29.4 L Mean Corpuscular Volume 93.0 Mean Corpuscular Hemoglobin 28.8 L Mean Corpuscular Hemoglobin Concent 31.0 L Red Cell Distribution Width 15.8 H Platelet Count 246 Mean Platelet Volume 9.2 Neutrophils % 92.9 H Lymphocytes % 2.3 L Monocytes % 4.0 Eosinophils % 0.0 Basophils % 0.1 Nucleated Red Blood Cells % 0.0 Neutrophils # (Manual) 12.2 H Lymphocytes # 0.3 L Monocytes # 0.5 Eosinophils # 0.0 Basophils # 0.0 Nucleated Red Blood Cells # 0.0 Sodium Level 134 L Potassium Level 5.1 Chloride Level 95 L Carbon Dioxide Level 31 Anion Gap 13 Blood Urea Nitrogen 55 H Creatinine 2.29 H Glucose Level 225 H Calcium Level 9.2 Phosphorus Level 2.9 # Magnesium Level 2.2 Total Bilirubin 0.1 L Direct Bilirubin 0.00 Indirect Bilirubin 0.1 Aspartate Amino Transf (AST/SGOT) 49 H Alanine Aminotransferase (ALT/SGPT) 44 Alkaline Phosphatase 107 Total Protein 5.6 L Albumin 3.1 L Globulin 2.50 Albumin/Globulin Ratio 1.24 Test 01/05/17 13:13 Bedside Glucose 210 Medications Medications Current Medications Propofol 100 ml @ 2.1 mls/hr Q12H IV Last administered on 01/05/17t 13:15; Admin Dose 6.3 MLS/HR; Start 01/05/17 at 01:00 Cefepime HCl (Maxipime 2gm/50 ml (Pmx)) 50 ml @ 100 mls/hr DAILY IVPB Last administered on 01/05/17 09:14; Admin Dose 100 MLS/HR; Start 01/05/17 at 02:30 Naloxone HCl 0.4 mg 0.4 mg Q4 PRN IV SEDATION; Start 01/05/17 at 01:30 Sodium Chloride 1,000 ml @ 75 mls/hr [id number] IV Last administered on 09:31; Admin Dose 75 MLS/HR; Start 01/05/17 at 02:00 Norepinephrine (Levophed) 250 ml @ 1.875 mls/ hr TITRATE IV Last administered on 01/05/17 06:15; Admin Dose 1.875 MLS/HR; Start 01/05/17 at 02:00 Vancomycin HCl (Vanco Iv Per Pharmacy) PER PHARMACY DOSING NOTE XX ; Start 01/05 at 02:00 Acetaminophen (Tylenol Tab) 650 mg Q6H PRN PO PAIN AND OR ELEVATED TEMP; Start 01/05/17 at 10:30 Apixaban (Eliquis) 2.5 mg BID PO Last administered on 01/05/17 12:40; Admin Dose 2.5 MG; Start 01/05/17 at 10:30 Ascorbic Acid (Vitamin C) 500 mg BID PO Last administered on 01/05/17 12:40; Admin Dose 500 MG; Start 01/05/17 at 10:30 Bisacodyl (Dulcolax Supp) [address] ; Start 01/06/17 at 09:00 Budesonide (Pulmicort (Neb)) 0.25 mg BID NEB Last administered on 01/05/17 11: 23; Admin Dose 0.25 MG; Start 01/05/17 at 10:30 Bumetanide (Bumex) 1 mg DAILY PO Last administered on 01/05/17 12:41; Admin Dose 1 MG; Start 01/05/17 at 10:30 Docusate Sodium (Colace) 100 mg BID PO ; Start 01/05/17 at 10:30 Fluticasone Propionate (Flonase 0.05% Nasal) 1 spray DAILY NASAL Last administered on 01/05/17 11:58; Admin Dose 1 SPRAY; Start 01/05/17 at 11:00 Fulvestrant (Faslodex) 500 mg Q28D IM ; Start 01/05/17 at 10:30; Status UNV Insulin Glargine (Lantus) 18 unit DAILY SC Last administered on 01/05/17 13:17 ; Admin Dose 18 UNIT; Start 01/05/17 at 10:30 Loratadine (Claritin) 10 mg DAILY PO Last administered on 01/05/17 12:40; Admin Dose 10 MG; Start 01/05/17 at 11:00 Magnesium Hydroxide (Milk Of Mag) 30 ml BID PRN PO CONSTIPATION; Start at 10:30 Magnesium Oxide (Mag-Ox 400) 400 mg DAILY PO Last administered on 01/05/17 12: 39; Admin Dose 400 MG; Start 01/05/17 at 10:30 Metoprolol Tartrate (Lopressor) 25 mg Q8 PO ; Start 01/05/17 at 14:00 Mirtazapine (Remeron) 15 mg HS PO ; Start 01/05/17 at 21:00 Nitroglycerin (Nitroglycerin 2% Oint) 0.5 inch Q6 PRN TD CHEST PAIN; Start 03/13 at 10:30 Ondansetron HCl (Zofran Inj) 4 mg Q6H PRN IV NAUSEA; Start 01/05/17 at 10:30 Sertraline HCl (Zoloft) 75 mg DAILY PO Last administered on 01/05/17 12:39; Admin Dose 75 MG; Start 01/05/17 at 10:30 Sildenafil Citrate (Revatio) 20 mg TID PO ; Start 01/05/17 at 13:00 Tacrolimus (Prograf) 2 mg QPM PO ; Start 01/05/17 at 21:00 Pantoprazole (Protonix Tab) 40 mg DAILY@06 PO ; Start 01/06/17 at 06:00 Senna (Senokot) 1 tab HS PO ; Start 01/05/17 at 21:00 Prednisone (Prednisone) 5 mg DAILY PO Last administered on 01/05/17 12:41; Admin Dose 5 MG; Start 01/05/17 at 12:00 Prednisone (Prednisone) 3 mg DAILY PO Last administered on 01/05/17 12:40; Admin Dose 3 MG; Start 01/05/17 at 12:00 Miscellaneous Information 1 ea NOTE XX ; Start 01/05/17 at 11:00 Glucose (Glutose) 15 gm Q15M PRN PO DECREASED GLUCOSE; Start 01/05/17 at 11:00 Glucose (Glutose) 22.5 gm Q15M PRN PO DECREASED GLUCOSE; Start 01/05/17 at 11: 00 Dextrose (D50w Syringe) 25 ml Q15M PRN IV DECREASED GLUCOSE; Start 01/05/17 at 11:00 Dextrose (D50w Syringe) 50 ml Q15M PRN IV DECREASED GLUCOSE; Start 01/05/17 at 11:00 Glucagon (Glucagen) 1 mg Q15M PRN IM DECREASED GLUCOSE; Start 01/05/17 at 11:00 Glucose (Glutose) 15 gm Q15M PRN BUCCAL DECREASED GLUCOSE; Start 01/05/17 at 11 :00 Oxcarbazepine (Trileptal) 600 mg BID PO Last administered on 01/05/17t 12:41; Admin Dose 600 MG; Start 01/05/17 at 12:00 Insulin Aspart NOVOLOG *MILD* ALGORI... Q4 SC Last administered on 01/05/17 13 :17; Admin Dose 2 UNIT; Start 01/05/17 at 13:00 Vancomycin HCl/ Sodium Chloride (Vancocin/NS) 250 ml @ 83.333 mls/ hr Q48H IVPB ; Start 01/07/17 at 03:00 SHANICE DAVENPORT MD Jan 05, 2017 18:30
--- NOTE | 2017-01-05 18:59 | CONS ---
DATE OF ADMISSION: 01/05/2017 DATE OF CONSULTATION: 01/05/2017 REASON FOR CONSULTATION: Ventilator management. Thank you, Dr. Rosenthal for this consultation. HISTORY OF PRESENT ILLNESS: This is a 71-year-old lady with advanced COPD with pulmonary hypertension complicated by renal transplant, recent admission to [facility] where she required management of pulmonary hypertension and COPD. Yesterday following transfer to acute rehab unit, patient became unresponsive, possibly secondary to opioid administration. She was given Narcan with transient improvement in mentation per chart and then became disoriented again requiring emergent intubation and mechanical ventilation since that time. She remains stable on mechanical ventilation. PAST MEDICAL HISTORY: Breast cancer, end-stage renal failure, post renal transplant, hypothyroidism, hypertension, hyperlipidemia, COPD, and pulmonary hypertension. MEDICATION: Per chart. ALLERGIES: NONE. SOCIAL HISTORY: Ex-smoker. No alcohol. No history of drug use. FAMILY HISTORY: Noncontributory. REVIEW OF SYSTEMS: A 12-point review of systems, unable to perform. PHYSICAL EXAMINATION: GENERAL: On examination, chronically ill-appearing lady, comfortable at rest, no acute distress. VITAL SIGNS: Afebrile. Pulse is 78, blood pressure 100/40, O2 sat 96 percent, FiO2 of 50 percent. HEENT: Orally intubated. Dry mucous membranes. Pupils equal and react to light. HEART: S1, S2. No added sounds or murmurs. CHEST: Diminished air entry bilaterally. ABDOMEN: Soft, nontender. No guarding or rebound. EXTREMITIES: No cyanosis, clubbing. 1+ edema. NEUROLOGIC: Generalized weakness. LABORATORY: White count 13.1, hemoglobin 9.1, platelets of 246. BUN 55, creatinine 2.29. ABG pH 7.51, pCO2 of 33, pO2 of 112. IMPRESSION: 1. Hypoxemic respiratory failure. 2. Possible altered mental status secondary to opioids. 3. History of renal transplant. PLAN: Patient will require: 1. Continue mechanical ventilation. 2. Hold all opioid medications. 3. Hopefully CPAP weaning trial tomorrow morning. 4. Renal recommendations. 5. DVT and GI prophylaxis. Dictated By: Jacob Chaney MD /[email or web address] /Document#: [id number]
[2017-01-05 20:00] LABS: ADD UMIC YES; UR ASCORBIC ACID 40 mg/dL (NEGATIVE); UR BACTERIA FEW /HPF (NONE SEEN); UR BILIRUBIN (Dip) NEGATIVE (NEGATIVE); UR BLOOD (Dip) 1+ mg/dL (NEGATIVE); UR CLARITY CLOUDY (CLEAR); UR COLOR AMBER (YELLOW); UR GLUCOSE (Dip) 1+ mg/dL (NEGATIVE); UR KETONES (Dip) TRACE mg/dL (NEGATIVE); UR LEUKOCYTE ESTERASE (Dip) TRACE Leu/ul (NEGATIVE); UR MUCUS FEW /HPF (NONE SEEN); UR NITRITE (Dip) NEGATIVE (NEGATIVE); UR RBC 84 /HPF (0-5); UR SPECIFIC GRAVITY (Dip) 1.017 (1.003-1.030); UR TOTAL PROTEIN (Dip) 2+ mg/dl (NEGATIVE); UR UROBILINOGEN (Dip) NEGATIVE (NEGATIVE)
--- NOTE | 2017-01-05 20:13 | PN ---
DATE: 01/05/2017 SUBJECTIVE DATA: Patient coded last night post transfer to the ICU, currently intubated. She was on pressors, but those are off now. VITAL SIGNS: Her temperature is 100.1, pulse respirations 16, blood pressure 100/ , saturation 100 percent on FiO2 of 50. LABORATORY AND DIAGNOSTIC DATA: WBC 13.1, H and H 9.1 and 29.4, platelets 246, neutrophils 92.9. BUN 55, creatinine 2.29. ANTIMICROBIALS: Patient was started on: 1. Vancomycin. 2. Cefepime. INDWELLINGS: Endotracheal tube, NG tube, Dela Cruz catheter, and right femoral triple-lumen catheter. OBJECTIVE DATA: GENERAL: This is a fragile, chronically ill-appearing, elderly woman, who is intubated, sedated, in no distress. HEENT: Head atraumatic, normocephalic. Sclerae anicteric. Buccal mucosa dry. NECK: Supple. CHEST: Rise symmetrical. Breath sounds diminished at the bases. HEART: S1, S2. ABDOMEN: Soft, bowel sounds hypoactive. EXTREMITIES: Without cyanosis. ASSESSMENT: 1. Sepsis with shock, possibly secondary to aspiration event. 2. Acute respiratory failure. 3. 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 4. [id number] kidney disease. 5. Congestive heart failure exacerbation. 6. History of renal transplant, with chronic allograft failure. 7. History of breast cancer. 8. Diabetes. PLAN: The patient is stable off pressors. We are going to order blood and urine culture. We will also order sputum culture. Keep her on vanco and cefepime for now. Follow recommendations of consultants. Dictated By: Artis Castañeda NP /[email or web address]/[email or web address] /Document#: [id number]
[2017-01-05] MEDS: SENNA TAB PO SCH (20:50)
[2017-01-05] MEDS: MIRTAZAPINE 15 MG TAB PO SCH (20:50)
[2017-01-05] MEDS ORDERED: SENNOSIDES 25 MG PO SCH (21:00)
--- NOTE | 2017-01-05 21:04 | RADRPT ---
PROCEDURE: CT Brain without contrast. CLINICAL INDICATION: Altered mental status. TECHNIQUE: A CT of the brain was performed on multidetector high-resolution CT scanner utilizing a xial sections from the skull base through the vertex without contrast. The scan was reviewed in sof t tissue brain and high frequency resolution bone algorithm windows. Images were reviewed on a high -resolution PACS workstation. One or more the following does reduction techniques were utilized: Aut omated exposure control, adjustment of the mA/ or kV according to patient's size, or use of iterativ e reconstruction technique. The exam CTDI = 43.15 mGy and the DLP = 840.67 mGy-cm. COMPARISON: None available. FINDINGS: The ventricles and sulci are mildly prominent indicative of volume loss. There is no intracranial h emorrhage, mass effect or midline shift. No abnormal intra-axial or extra-axial fluid collections a re seen. The [place]/white matter differentiation is preserved. There are mild scattered foci of hypoattenuation in the white matter, which are nonspecific in etiol ogy but likely reflect chronic small vessel ischemic changes. There are mild intracranial vascular calcifications consistent with atherosclerosis. The visualized paranasal sinuses demonstrate air-flu id levels in bilateral sphenoid sinuses. The mastoid air cells are essentially clear. There is thinn ing of bilateral lens indicative of prior lens replacement. IMPRESSION: 1. No acute intracranial hemorrhage, transcortical infarction or mass effect. If clinical concern p ersists consider brain MRI. 2. Mild intracranial atherosclerosis and chronic small vessel ischemic changes. 3. Mild generalized cerebral volume loss. 4. Air-fluid levels in bilateral sphenoid sinuses, correlate for acute sinusitis. RPTAT: HH .David Zuluaga MD, MD Date Time Electronically viewed and signed by .David Zuluaga MD, MD on 01/05/2017 21:04 .N/
[2017-01-06] VITALS (43 sets, daily range): BP systolic 97–187; BP diastolic 37–76; PULSE 62–84; RESP 12–22
[2017-01-06] MEDS: ALBUTEROL 18 GM INHALER INH SCH ×4 (01:00→20:14)
[2017-01-06] MEDS: INSULIN ASPART [NOVOLOG] 3 ML PEN SC SCH ×6 (01:00→21:04)
[2017-01-06] MEDS: IPRATROPIUM (HFA) 12.9 GM INHALER INH SCH ×4 (01:00→20:14)
[2017-01-06] MEDS ORDERED: ACCU-CHEK XX SCH (02:00)
--- NOTE | 2017-01-06 05:29 | CONS ---
DATE OF ADMISSION: 01/05/2017 DATE OF CONSULTATION: 01/05/2017 Thank you, Dr. Rosenthal, for your kind referral for evaluation of encephalopathy. The patient had an episode of agitation according to the "blue note," and she received pain medications earlier in the day. Narcan was given, and she went into an asystolic cardiac arrest according to ER physician Dr. Denise's note from this morning. She had chest discomfort and received 1 dose of epinephrine with spontaneous return of circulation. She was intubated and transferred to ICU. PAST MEDICAL HISTORY: Significant for metastatic breast cancer, history of end-stage renal disease, status post renal transplant. Also hypothyroidism, hypertension, diabetes, COPD, pulmonary hypertension, chronic pain syndrome. The patient was initially evaluated in [facility] for weakness and found to have respiratory failure, and heart failure. She was transferred to [place], and then after the patient was weaned off the BiPAP, she was moved to [facility] acute rehab where she had an episode of cardiac arrest early this morning. PAST SURGICAL HISTORY: As above. FAMILY HISTORY: Noncontributory. SOCIAL HISTORY: No alcohol, tobacco, or drug use. CURRENT MEDICATION: 1. Vancomycin. 2. Bisacodyl. 3. L-thyroxine. 4. Pantoprazole. 5. Mirtazepine. 6. Tacrolimus. 7. Symbicort. 8. Metoprolol. 9. Sildenafil. 10. Insulin. 11. Prednisone. 12. Trileptal 600 mg twice daily. 13. Bumex. 14. Pulmicort. 15. Cefepime. 16. Vancomycin. 17. Propofol. ALLERGIES: SHE IS ALLERGIC TO MORPHINE AND TETRACYCLINES ACCORDING TO THE CHART. DIAGNOSTICS: She had a chest x-ray this morning with a small pleural effusion, right middle and lower lobe consolidation, increased compared to the previous examination, also pulmonary vascular congestion. LABORATORY: Shows today's WBC 13.1, hemoglobin 9.1, hematocrit 29, platelets 246, neutrophils 92 percent. Today's sodium 131, chloride 92, bicarb 34, BUN 54, creatinine 2.2. Glucose 232, lactate 2.6, AST 65, LVH 1000. C-reactive protein 5.9. Troponins negative. Total protein 5.3, albumin 2.8. The rest was within normal limits. PT 17, PTT 33. An ABG shows 7.51 pH, pCO2 30, and pO2 122. PHYSICAL EXAMINATION: GENERAL: According to the nursing staff, the patient is on propofol, arousable, follows commands. No acute distress. Lying in bed, intubated orally. VITALS: Temperature T-max 100.1, currently 99.5, pulse 76, respirations 12, blood pressure 131/63. HEENT: Normocephalic and atraumatic. Sedated, as I mentioned before. LUNGS: Clear to auscultation bilaterally. HEART: Normal cardiac rhythm and sounds. ABDOMEN: Soft and nontender. EXTREMITIES: No cyanosis, clubbing, or edema. NEUROLOGICAL EXAMINATION: The patient is lethargic, opens eyes to voice. He goes back to sleep. Present response to visual threat bilaterally. Pupils about 2 mm bilaterally. Extraocular movements intact without nystagmus. Symmetrical face, though, when aroused, the patient seemed to open her right eye a little bigger than the left. Corneal reflexes are present bilaterally. Gag is present. The patient was able to move the fingers on request in the right upper extremity. She withdraws her extremities slightly on the left arm on request, but seem to move to pain. Deep tendon reflexes 2+ upper extremities and knees. Absent ankle jerks. Equivocal response to plantar stimulation bilaterally. Coordination examination shows absence of resting tremor. IMPRESSION: 1. Encephalopathy status post cardiopulmonary arrest in the rehab unit. 2. History of paroxysmal atrial fibrillation, currently in sinus rhythm according to cardiology note. 3. History of renal failure status post transplant. 4. Anemia. 5. History of breast cancer. 6. Hypertension. 7. Diabetes. Encephalopathy could be a combination first of all, patient is sedated, and secondly, status post cardiac arest plus/minus secondary toxic metabolic etiologies. We will re-read when off sedation. In any case, the patient is at least arousable and seemed to follow simple commands. Continue current treatment. It is reasonable to obtain a CAT scan of the head. Dictated By: Nelson Dominguez MD /[email or web address]/[email or web address] /Document#: [id number] SERAFIN
--- NOTE | 2017-01-06 05:35 | CONS ---
DATE OF ADMISSION: 01/05/2017 DATE OF CONSULTATION: 01/05/2017 REQUESTING PHYSICIAN: Sanket Green MD. I am seeing this patient for Dr. Sherman Rojo for an infectious disease consultation. HISTORY OF PRESENT ILLNESS: The patient is a 71-year-old white female, who was admitted from a transfer from an acute care situation. She presented with cardiopulmonary arrest on 01/05/2017 in the early hours of the morning as a code blue. She had a history of chronic pain syndrome and apparently had gotten opiate treatment prior to the current event. She developed altered consciousness and was given IV Narcan to which she temporarily responded, and then she required cardiopulmonary resuscitation, intubation, central line placement and was successfully resuscitated. She was transferred to the intensive care unit. The patient's arterial blood gases on admission, initial, were pH 7.44, pO2 of 54, pCO2 of 46, FiO2 of 100 percent. The patient was initially given steroids, sildenafil (the patient has pulmonary hypertension), bronchodilators, diuretics and intermittent BiPAP and subsequently was intubated and placed on a respirator. The white count was 12,200, hematocrit 29 percent. Creatinine 2.22, lactic acid 2.6, glucose 232, and the lactic acid level 1,000. Chest x-ray revealed right middle lobe and right lower lobe consolidation. Her white count subsequently valentín to 13,100 with 93 polys, 2 lymphs and 4 monocytes, and she is presently stabilized on a respirator. PAST MEDICAL HISTORY: She has a past medical history of endstage renal disease then renal transplant, COPD, pulmonary hypertension, hypothyroidism, hypertension, chronic pain syndrome, depression and paroxysmal atrial fibrillation. ALLERGIES: THE PATIENT IS ALLERGIC TO: MORPHINE. TETRACYCLINE. PAST SURGICAL HISTORY: Her surgeries have consisted of renal transplantation and tracheostomy previously. MEDICATION: The patient was placed on vancomycin and cefepime after being placed on a respirator and transferred to the ICU unit. Her medications currently include those and: 1. Levothyroxine 75 mcg. 2. Pantoprazole 40 mg daily. 3. Mirtazapine 15 mg at bedtime. 4. Tacrolimus 2 mg every evening. 5. Metoprolol tartrate 25 mg every 8 hours. 6. Sildenafil 20 mg 3 times a day. 7. A second dose of tacrolimus after breakfast. 8. Aspart insulin. 9. Prednisone 5 mg daily. 10. Prednisone 3 mg daily. 11. Trileptal 600 mg twice a day. 12. Fluticasone nasal spray, 1 spray daily. 13. Loratadine 10 mg daily. PHYSICAL EXAMINATION: GENERAL: Reveals a pale, sedated, obese white female lying supine with the head of the bed elevated 30 degrees. She has a nasogastric tube and endotracheal tube present. Dela Cruz catheter is in place. Has a central line also in place. Her hands are in restraints. VITAL SIGNS: Her blood pressure is 103/47, pulse 72, pulse oximetry 100 percent on a mechanical ventilator. HEAD AND NECK: The patient's pupils are constricted. There is no jugular venous distention. CHEST: Clear on the left side. On the right side, breath sounds are distant in the right lower lobe and right middle lobe and also with occasional both inspiratory and expiratory wheezes. BREASTS: The left breast is surgically absent. SKIN: There is a well-healed tracheostomy incision. ABDOMEN: Soft. No palpable organs, mass or tenderness. Bowel sounds were not heard. A Dela Cruz catheter present. There is a palpable renal transplant in the left lower quadrant. EXTREMITIES: Examination of the extremities revealed no edema, cyanosis or clubbing. INITIAL IMPRESSION: 1. Right middle lobe and right lower lobe pneumonia. 2. Hypercapnic respiratory failure. 3. Status post cardiac arrest. 4. Chronic obstructive pulmonary disease/pulmonary hypertension. 5. Status post renal transplant. 6. Carcinoma of the left breast, metastatic. 7. Opioid addiction/chronic pain. 8. Hypertension. 9. Diabetes. 10. Hypothyroidism. RECOMMENDATIONS: Continue present antibiotic and respiratory support, including pulmonary toilet, suctioning, hydration and bronchodilators. Obtain MRSA screen with sputum for urine culture and sensitivity and continue vancomycin and cefepime pending culture and sensitivity results. Thank you for referring this patient. Dictated By: Osmar Morocho MD /[email or web address]/wally /Document#: [id number]
[2017-01-06 05:43] LABS: BASOPHILS % 0.1 % (0.0-2.0); EOSINOPHILS # 0.1 10^3/ul (0.0-0.5); EOSINOPHILS % 1.3 % (0.0-7.0); HEMATOCRIT 29.5 % (37.0-47.0); HEMOGLOBIN 9.4 g/dl (12.0-16.0); LYMPHOCYTES # 0.7 10^3/ul (0.8-2.9); LYMPHOCYTES % 6.3 % (15.0-51.0); MEAN CORPUSCULAR HEMOGLOBIN 29.9 pg (29.0-33.0); MEAN CORPUSCULAR HGB CONC 31.9 g/dl (32.0-37.0); MEAN CORPUSCULAR VOLUME 93.9 fl (82.0-101.0); MEAN PLATELET VOLUME 9.4 fl (7.4-10.4); MONOCYTE # 0.5 10^3/ul (0.3-0.9); MONOCYTES % 4.8 % (0.0-11.0); NEUTROPHILS % 87.1 % (39.0-77.0); PLATELET COUNT 253 10^3/UL (140-415); RED BLOOD COUNT 3.14 10^6/ul (4.20-5.40); RED CELL DISTRIBUTION WIDTH 15.8 % (11.5-14.5)
[2017-01-06 05:56] LABS: CALCIUM 9.5 mg/dl (8.4-10.2); CREATININE 2.33 mg/dl (0.44-1.00); MAGNESIUM 2.4 mg/dl (1.7-2.5); PHOSPHORUS 3.5 mg/dl (2.5-4.9); POTASSIUM 4.7 mmol/L (3.5-5.1)
[2017-01-06] MEDS: METOPROLOL 25 MG TAB PO SCH ×3 (06:58→22:18)
[2017-01-06] MEDS: PANTOPRAZOLE (EC) 40 MG TAB PO SCH (06:59)
[2017-01-06] MEDS ORDERED: LEVOTHYROXINE 75 MCG TAB PO SCH (07:00)
[2017-01-06] MEDS: LEVOTHYROXINE 75 MCG TAB PO SCH (07:01)
[2017-01-06] MEDS: DOCUSATE SODIUM 100 MG CAP PO SCH ×2 (09:00→20:06)
[2017-01-06] MEDS: BUDESONIDE (NEB) 0.25 MG/2 ML AMP NEB SCH ×2 (09:32→20:14)
--- NOTE | 2017-01-06 09:33 | PN ---
DATE: 01/06/2017 SUBJECTIVE DATA: The patient remains clinically stable, on full ventilatory support. The patient is does wake up on sedation medication. No other events noted. Urinary output has been marginal. Please note, I did update the patient's brother, informing him of his sister's condition, answering all questions. No other events noted. OBJECTIVE DATA: VITAL SIGNS: Blood pressure 130/45, respirations, pulse 72, temperature 98. I's and O's; the patient had 1 liter in, with 255 mL out. HEENT: Head is normocephalic. NECK: Supple. HEART: Regular rate. LUNGS: Diminished breath sounds at the base. ABDOMEN: Soft, nontender to palpation. No rebound or guarding. EXTREMITIES: Negative for clubbing, cyanosis. Trace edema. DERMATOLOGIC: No rashes. MUSCULOSKELETAL: No joint effusion. NEUROLOGIC: No change in exam. MEDICATIONS: Reviewed. LABORATORY AND DIAGNOSTIC DATA: Sodium 134, potassium 4.7, chloride 95, BUN 61, creatinine 2.33. White count 9, hemoglobin 9.4, hematocrit 29.5, platelet count 253,00. Urinalysis shows positive bacteria, positive pyuria, positive hematuria. Patient's FENa less than 1 percent, protein creatinine ratio approximately 800 mg/g creatinine. ASSESSMENT AND PLAN: 1. Status post-code arrest. Etiology is likely secondary to aspiration, respiratory. The patient is currently hemodynamically stable. Will follow up with Cardiology recommendations. Appreciate their help with management. 2. Ventilatory-dependent respiratory failure. Etiology secondary to possible aspiration pneumonia, congestive heart failure. The patient's ventilator settings and arterial blood gases reviewed. Continue to monitor. Follow up Pulmonary. 3. Acute congestive heart failure exacerbation. The patient's chest x-ray shows pulmonary congestion. Will continue to monitor closely. Will give intermittent diuretic therapy as needed. Follow up with Cardiology. 4. Sepsis status post-shock. The patient is currently off pressor support. Continue current antibiotic regimen. We will decrease rate of intravenous fluids. 5. Paroxysmal atrial fibrillation. Currently sinus rhythm. Continue to monitor. 6. 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 7. 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 The patient has a previous baseline creatinine around 1.5 1.7 mg/dL. The patient currently is in acute kidney injury, likely due to acute tubular necrosis, due to code arrest hemodynamics. The patient's urinalysis does show evidence of pyuria and hematuria. This is likely due to urinary tract infection and Dela Cruz trauma. Lower suspicion for acute glomerulonephritis. The patient's proteinuria is non-glomerular, approximately 800 mg/g creatinine. The patient has a FENa less than 1 percent, which can be consistent in pre renal state, such as congestive heart failure and possible sepsis. At this point, will continue current treatment plans for supportive care, renally dose all meds. Will also check a Prograf level. 8. History of end-stage renal disease. Status post-renal transplant with chronic allograft failure. The patient is currently in acute kidney injury as stated above. Would continue current immunosuppressive regimen of Prograf and prednisone. Follow up Prograf level. 9. Hypothyroid. Continue Synthroid. 10. Anemia. Monitor hemoglobin and hematocrit levels. 11. History of breast cancer with metastasis. The patient is currently being seen by Oncology. Continue to monitor. 12. Diabetes. Continue current insulin regimen. 13. Pulmonary hypertension. Continue medical management. 14. Anxiety, depression. 15. Hyponatremia, mild, improving. Continue to monitor. 16. Gastrointestinal and deep venous thrombosis prophylaxis. Continue proton pump inhibitor and heparin. CRITICAL CARE TIME SPENT: Please note, I spent over 30 minutes of critical care time with this patient. Dictated By: Cameron Rosenthal DO /berkley/fred /Document#: [id number]
--- NOTE | 2017-01-06 09:58 | CONS ---
Date/Time of Note Date/Time of Note DATE: 01/06/17 TIME: 09:56 Consult Date/Type/Reason Admit Date/Time Jan 05, 2017 at 00:15 Initial Consult Date 01/05/17 Type of Consultation: Pulmonary Ordering Provider: SUASN SIMENTAL DO Subjective Patient comfortable this morning. Intermittent agitation off sedation. Remains hemodynamically stable. Objective Vital Signs Date Time Temp Pulse Resp B/P Pulse Ox O2 Delivery O2 Flow Rate FiO2 01/06/17 08:00 69 01/06/17 06:30 16 130/45 100 01/06/17 06:00 Mechanical Ventilator 01/06/17 05:18 50 01/06/17 04:00 97.5 Intake and Output 01/05/17 01/05/17 01/06/17 15:00 23:00 07:00 Intake Total 548.3 ml 844.0 ml 588.0 ml Output Total 165 ml 190 ml Balance 548.3 ml 679.0 ml 398.0 ml Exam PHYSICAL EXAMINATION: GENERAL: On examination, chronically ill-appearing lady, comfortable at rest, no acute distress. VITAL SIGNS: HEENT: Orally intubated. Dry mucous membranes. Pupils equal and react to light. HEART: S1, S2. No added sounds or murmurs. CHEST: Diminished air entry bilaterally. ABDOMEN: Soft, nontender. No guarding or rebound. EXTREMITIES: No cyanosis, clubbing. 1+ edema. NEUROLOGIC: Generalized weakness. Results/Medications Result Diagram: 01/06/17 0500 01/06/17 0500 Results 24 hrs Laboratory Tests Test 01/05/17 13:13 01/05/17 19:00 01/05/17 19:01 01/05/17 20:52 Bedside Glucose 210 158 149 Urine Color EVELYN Urine Clarity CLOUDY A Urine pH 5.0 Urine Specific [place] 1.017 Urine Ketones TRACE A Urine Nitrite NEGATIVE Urine Bilirubin NEGATIVE Urine Urobilinogen NEGATIVE Urine Leukocyte Esterase TRACE A Urine Microscopic RBC 84 H Urine Microscopic WBC 21 H Urine Bacteria FEW A Urine Mucus FEW A Urine Hemoglobin 1+ H Urine Random Creatinine 140.28 Urine Random Sodium 20 L Urine Glucose 1+ H Urine Total Protein 126.0 H Test 01/06/17 01:23 01/06/17 05:00 01/06/17 05:38 Bedside Glucose 139 111 White Blood Count 11.0 H Red Blood Count 3.14 L Hemoglobin 9.4 L Hematocrit 29.5 L Mean Corpuscular Volume 93.9 Mean Corpuscular Hemoglobin 29.9 Mean Corpuscular Hemoglobin Concent 31.9 L Red Cell Distribution Width 15.8 H Platelet Count 253 Mean Platelet Volume 9.4 Neutrophils % 87.1 H Lymphocytes % 6.3 L Monocytes % 4.8 Eosinophils % 1.3 Basophils % 0.1 Nucleated Red Blood Cells % 0.0 Neutrophils # (Manual) 9.6 H Lymphocytes # 0.7 L Monocytes # 0.5 Eosinophils # 0.1 Basophils # 0.0 Nucleated Red Blood Cells # 0.0 Sodium Level 134 L Potassium Level 4.7 Chloride Level 95 L Carbon Dioxide Level 33 H Anion Gap 11 Blood Urea Nitrogen 61 H Creatinine 2.33 H Glucose Level 94 # Calcium Level 9.5 Phosphorus Level 3.5 Magnesium Level 2.4 Medications Current Medications Propofol 100 ml @ 2.1 mls/hr Q12H IV Last administered on 01/05/17 20:00; Admin Dose 10.445 MLS/HR; Start 01/05/17 at 01:00 Cefepime HCl (Maxipime 2gm/50 ml (Pmx)) 50 ml @ 100 mls/hr DAILY IVPB Last administered on 01/05/17 09:14; Admin Dose 100 MLS/HR; Start 01/05/17 at 02:30 Naloxone HCl 0.4 mg 0.4 mg Q4 PRN IV SEDATION; Start 01/05/17 at 01:30 Sodium Chloride 1,000 ml @ 75 mls/hr [id number] IV Last administered on 23:22; Admin Dose 75 MLS/HR; Start 01/05/17 at 02:00 Norepinephrine (Levophed) 250 ml @ 1.875 mls/ hr TITRATE IV Last administered on 01/05/17 06:15; Admin Dose 1.875 MLS/HR; Start 01/05/17 at 02:00 Vancomycin HCl (Vanco Iv Per Pharmacy) PER PHARMACY DOSING NOTE XX ; Start 01/05 at 02:00 Acetaminophen (Tylenol Tab) 650 mg Q6H PRN PO PAIN AND OR ELEVATED TEMP; Start 01/05/17 at 10:30 Apixaban (Eliquis) 2.5 mg BID PO Last administered on 01/05/17 20:50; Admin Dose 2.5 MG; Start 01/05/17 at 10:30 Ascorbic Acid (Vitamin C) 500 mg BID PO Last administered on 01/05/17 20:51; Admin Dose 500 MG; Start 01/05/17 at 10:30 Bisacodyl (Dulcolax Supp) 10 mg DAILY HI ; Start 01/06/17 at 09:00 Budesonide (Pulmicort (Neb)) 0.25 mg BID NEB Last administered on 01/06/17 09: 32; Admin Dose 0.25 MG; Start 01/05/17 at 10:30 Bumetanide (Bumex) 1 mg DAILY PO Last administered on 01/05/17 12:41; Admin Dose 1 MG; Start 01/05/17 at 10:30 Docusate Sodium (Colace) 100 mg BID PO Last administered on 01/05/17 20:50; Admin Dose 100 MG; Start 01/05/17 at 10:30 Fluticasone Propionate (Flonase 0.05% Nasal) 1 spray DAILY NASAL Last administered on 01/05/17 11:58; Admin Dose 1 SPRAY; Start 01/05/17 at 11:00 Fulvestrant (Faslodex) 500 mg Q28D IM ; Start 01/05/17 at 10:30; Status UNV Insulin Glargine (Lantus) 18 unit DAILY SC Last administered on 01/05/17 13:17 ; Admin Dose 18 UNIT; Start 01/05/17 at 10:30 Loratadine (Claritin) 10 mg DAILY PO Last administered on 01/05/17 12:40; Admin Dose 10 MG; Start 01/05/17 at 11:00 Magnesium Hydroxide (Milk Of Mag) 30 ml BID PRN PO CONSTIPATION; Start at 10:30 Magnesium Oxide (Mag-Ox 400) 400 mg DAILY PO Last administered on 01/05/17 12: 39; Admin Dose 400 MG; Start 01/05/17 at 10:30 Metoprolol Tartrate (Lopressor) 25 mg Q8 PO Last administered on 01/06/17 06: 58; Admin Dose 25 MG; Start 01/05/17 at 14:00 Mirtazapine (Remeron) 15 mg HS PO Last administered on 01/05/17 20:50; Admin Dose 15 MG; Start 01/05/17 at 21:00 Nitroglycerin (Nitroglycerin 2% Oint) 0.5 inch Q6 PRN TD CHEST PAIN; Start 03/13 at 10:30 Ondansetron HCl (Zofran Inj) 4 mg Q6H PRN IV NAUSEA; Start 01/05/17 at 10:30 Sertraline HCl (Zoloft) 75 mg DAILY PO Last administered on 01/05/17 12:39; Admin Dose 75 MG; Start 01/05/17 at 10:30 Sildenafil Citrate (Revatio) 20 mg TID PO Last administered on 01/05/17 20:50 ; Admin Dose 20 MG; Start 01/05/17 at 13:00 Tacrolimus (Prograf) 2 mg QPM PO Last administered on 01/05/17 20:51; Admin Dose 2 MG; Start 01/05/17 at 21:00 Pantoprazole (Protonix Tab) 40 mg DAILY@06 PO Last administered on 01/06/17 06 :59; Admin Dose 40 MG; Start 01/06/17 at 06:00 Senna (Senokot) 1 tab HS PO Last administered on 01/05/17 20:50; Admin Dose 1 TAB; Start 01/05/17 at 21:00 Prednisone (Prednisone) 5 mg DAILY PO Last administered on 01/05/17 12:41; Admin Dose 5 MG; Start 01/05/17 at 12:00 Prednisone (Prednisone) 3 mg DAILY PO Last administered on 01/05/17 12:40; Admin Dose 3 MG; Start 01/05/17 at 12:00 Miscellaneous Information 1 ea NOTE XX ; Start 01/05/17 at 11:00 Glucose (Glutose) 15 gm Q15M PRN PO DECREASED GLUCOSE; Start 01/05/17 at 11:00 Glucose (Glutose) 22.5 gm Q15M PRN PO DECREASED GLUCOSE; Start 01/05/17 at 11: 00 Dextrose (D50w Syringe) 25 ml Q15M PRN IV DECREASED GLUCOSE; Start 01/05/17 at 11:00 Dextrose (D50w Syringe) 50 ml Q15M PRN IV DECREASED GLUCOSE; Start 01/05/17 at 11:00 Glucagon (Glucagen) 1 mg Q15M PRN IM DECREASED GLUCOSE; Start 01/05/17 at 11:00 Glucose (Glutose) 15 gm Q15M PRN BUCCAL DECREASED GLUCOSE; Start 01/05/17 at 11 :00 Oxcarbazepine (Trileptal) 600 mg BID PO Last administered on 01/05/17 20:50; Admin Dose 600 MG; Start 01/05/17 at 12:00 Insulin Aspart NOVOLOG *MILD* ALGORI... Q4 SC Last administered on 01/05/17 20 :57; Admin Dose 1 UNIT; Start 01/05/17 at 13:00 Vancomycin HCl 1.25 gm/Sodium Chloride 250 ml @ 83.333 mls/ hr Q48H IVPB ; Start 01/07/17 at 03:00 Fentanyl (Sublimaze) 100 ml @ 2.5 mls/hr TITRATE IV ; Start 01/06/17 at 09:30 Assessment/Plan Chief Complaint/Hosp Course IMPRESSION: 1. Hypoxemic respiratory failure. 2. Possible altered mental status secondary to opioids. Significant anxiety component. 3. History of renal transplant. Renal insufficiency. PLAN: 1. Continue mechanical ventilation. 2. Trial of fentanyl for pain control. Decrease propofol as tolerated 3. Hopefully CPAP weaning trial when more alert. 4. Renal recommendations. 5. DVT and GI prophylaxis. Critical care time 40 minutes. Problems: LESA SAMUELS MD, [facility] Jan 06, 2017 09:58
[2017-01-06] MEDS: CEFEPIME 2GM/50 ML (PMX) 50 ML IVPB SCH (10:00)
[2017-01-06] MEDS: SERTRALINE 50 MG TAB PO SCH (10:00)
[2017-01-06] MEDS: BISACODYL 10 MG SUPP PR SCH (10:00)
[2017-01-06] MEDS: ASCORBIC ACID 500 MG TAB PO SCH ×2 (10:00→20:06)
[2017-01-06] MEDS: predniSONE 5 MG TAB PO SCH (10:00)
[2017-01-06] MEDS: APIXABAN 5 MG TABLET PO SCH ×2 (10:00→20:41)
[2017-01-06] MEDS: BUMETANIDE 1 MG TAB PO SCH (10:01)
[2017-01-06] MEDS: MAGNESIUM OXIDE 400 MG TAB PO SCH (10:01)
[2017-01-06] MEDS: LORATADINE 10 MG TAB PO SCH (10:01)
[2017-01-06] MEDS: FLUTICASONE 0.05% 16 GM NAS SPRAY NASAL SCH (10:01)
[2017-01-06] MEDS: SILDENAFIL 20 MG TAB PO SCH ×3 (10:02→22:17)
[2017-01-06] MEDS: OXCARBAZEPINE 300 MG TAB PO SCH ×2 (10:02→20:40)
[2017-01-06] MEDS: TACROLIMUS 1 MG CAP PO SCH ×2 (10:04→20:40)
[2017-01-06] MEDS: predniSONE 1 MG TAB PO SCH (10:05)
[2017-01-06] MEDS: INSULIN GLARGINE [LANtus] 3 ML PEN SC SCH (10:58)
[2017-01-06] MEDS: SOD CHLORIDE 0.9% 1,000 ML IV SCH (12:11)
[2017-01-06] MEDS: PROPOFOL 100 ML IV SCH ×2 (12:49→21:46)
[2017-01-06] MEDS: FENTAnyl (DRIP) 1000 mcg/100mL 100 ML IV SCH (13:12)
--- NOTE | 2017-01-06 16:57 | CONS ---
Date/Time of Note Date/Time of Note DATE: 01/06/17 TIME: 16:54 Consult Date/Type/Reason Admit Date/Time Jan 05, 2017 at 00:15 Initial Consult Date 01/05/17 Type of Consultation: CARDIOLOGY Ordering Provider: SUSAN SIMENTAL DO Subjective CARDIOLOGY FOLLOW UP NOTE: D/W Staff and sister in law pt remains intubated on vent. rhythm was reviewed. she remains in NSR NO reports of any chest pain or pressure OBJECTIVE: General: intubated on vent. HEENT: NC/AT. pupils are equal. round. NECK: NO JVD. no stridor. CV: RRR. systolic murmur; no gallop or rubs. PULM: no wheezing, + mild rhonchi. GI: SOFT, NT, ND, no rebound or guarding Extremity: trace B/L LE edema. no clubbing. neuro: opens her eyes and responds. . Psych: unable to assess rectal: deferred : normal ECHO 12/16/16: Personally reviewed 1. Normal left ventricular systolic function. Normal left ventricular cavity size. Moderate concentric left ventricular hypertrophy. Ejection fraction is visually estimated at 65 %. Abnormal Diastolic Function. 2. There is moderate enlargement of left atrium. 3. Mild mitral leaflet calcification. Mild mitral annular calcification. Trace mitral regurgitation. 4. Aortic sclerosis without stenosis. Trace aortic valve regurgitation. 5. Normal appearance of the tricuspid valve. Estimated peak PA systolic pressure 38 mmHg. There is mild tricuspid regurgitation. Objective Vital Signs Date Time Temp Pulse Resp B/P Pulse Ox O2 Delivery O2 Flow Rate FiO2 01/06/17 16:00 70 01/06/17 15:00 15 187/71 100 Mechanical Ventilator 01/06/17 12:00 98.6 01/06/17 11:21 40 Intake and Output 01/05/17 01/05/17 01/06/17 15:00 23:00 07:00 Intake Total 548.3 ml 844.0 ml 588.0 ml Output Total 165 ml 190 ml Balance 548.3 ml 679.0 ml 398.0 ml Results/Medications Result Diagram: 01/06/17 0500 01/06/17 0500 Results 24 hrs Laboratory Tests Test 01/05/17 19:00 01/05/17 19:01 01/05/17 20:52 01/06/17 01:23 Urine Color EVELYN Urine Clarity CLOUDY A Urine pH 5.0 Urine Specific Munger 1.017 Urine Ketones TRACE A Urine Nitrite NEGATIVE Urine Bilirubin NEGATIVE Urine Urobilinogen NEGATIVE Urine Leukocyte Esterase TRACE A Urine Microscopic RBC 84 H Urine Microscopic WBC 21 H Urine Bacteria FEW A Urine Mucus FEW A Urine Hemoglobin 1+ H Urine Random Creatinine 140.28 Urine Random Sodium 20 L Urine Glucose 1+ H Urine Total Protein 126.0 H Bedside Glucose 158 149 139 Test 01/06/17 05:00 01/06/17 05:38 01/06/17 11:02 01/06/17 13:51 White Blood Count 11.0 H Red Blood Count 3.14 L Hemoglobin 9.4 L Hematocrit 29.5 L Mean Corpuscular Volume 93.9 Mean Corpuscular Hemoglobin 29.9 Mean Corpuscular Hemoglobin Concent 31.9 L Red Cell Distribution Width 15.8 H Platelet Count 253 Mean Platelet Volume 9.4 Neutrophils % 87.1 H Lymphocytes % 6.3 L Monocytes % 4.8 Eosinophils % 1.3 Basophils % 0.1 Nucleated Red Blood Cells % 0.0 Neutrophils # (Manual) 9.6 H Lymphocytes # 0.7 L Monocytes # 0.5 Eosinophils # 0.1 Basophils # 0.0 Nucleated Red Blood Cells # 0.0 Sodium Level 134 L Potassium Level 4.7 Chloride Level 95 L Carbon Dioxide Level 33 H Anion Gap 11 Blood Urea Nitrogen 61 H Creatinine 2.33 H Glucose Level 94 # Calcium Level 9.5 Phosphorus Level 3.5 Magnesium Level 2.4 Bedside Glucose 111 136 187 Medications Current Medications Propofol 100 ml @ 2.1 mls/hr Q12H IV Last administered on 01/06/17 12:49; Admin Dose 8.4 MLS/HR; Start 01/05/17 at 01:00 Cefepime HCl (Maxipime 2gm/50 ml (Pmx)) 50 ml @ 100 mls/hr DAILY IVPB Last administered on 01/06/17 10:00; Admin Dose 100 MLS/HR; Start 01/05/17 at 02:30 Naloxone HCl 0.4 mg 0.4 mg Q4 PRN IV SEDATION; Start 01/05/17 at 01:30 Sodium Chloride (NS) 1,000 ml @ 50 mls/hr Q20H IV Last administered on 23:22; Admin Dose 75 MLS/HR; Start 01/05/17 at 02:00 Vancomycin HCl (Vanco Iv Per Pharmacy) PER PHARMACY DOSING NOTE XX ; Start 01/05 at 02:00 Acetaminophen (Tylenol Tab) 650 mg Q6H PRN PO PAIN AND OR ELEVATED TEMP; Start 01/05/17 at 10:30 Apixaban (Eliquis) 2.5 mg BID PO Last administered on 01/06/17 10:00; Admin Dose 2.5 MG; Start 01/05/17 at 10:30 Ascorbic Acid (Vitamin C) 500 mg BID PO Last administered on 01/06/17 10:00; Admin Dose 500 MG; Start 01/05/17 at 10:30 Bisacodyl (Dulcolax Supp) 10 mg DAILY ID Last administered on 01/06/17 10:00; Admin Dose 10 MG; Start 01/06/17 at 09:00 Budesonide (Pulmicort (Neb)) 0.25 mg BID NEB Last administered on 01/06/17 09: 32; Admin Dose 0.25 MG; Start 01/05/17 at 10:30 Docusate Sodium (Colace) 100 mg BID PO Last administered on 01/05/17 20:50; Admin Dose 100 MG; Start 01/05/17 at 10:30 Fluticasone Propionate (Flonase 0.05% Nasal) 1 spray DAILY NASAL Last administered on 01/06/17 10:01; Admin Dose 1 SPRAY; Start 01/05/17 at 11:00 Fulvestrant (Faslodex) 500 mg Q28D IM ; Start 01/05/17 at 10:30; Status UNV Insulin Glargine (Lantus) 18 unit DAILY SC Last administered on 01/06/17 10:58 ; Admin Dose 18 UNIT; Start 01/05/17 at 10:30 Loratadine (Claritin) 10 mg DAILY PO Last administered on 01/06/17 10:01; Admin Dose 10 MG; Start 01/05/17 at 11:00 Magnesium Hydroxide (Milk Of Mag) 30 ml BID PRN PO CONSTIPATION; Start at 10:30 Magnesium Oxide (Mag-Ox 400) 400 mg DAILY PO Last administered on 01/06/17 10: 01; Admin Dose 400 MG; Start 01/05/17 at 10:30 Metoprolol Tartrate (Lopressor) 25 mg Q8 PO Last administered on 01/06/17 14: 36; Admin Dose 25 MG; Start 01/05/17 at 14:00 Mirtazapine (Remeron) 15 mg HS PO Last administered on 01/05/17 20:50; Admin Dose 15 MG; Start 01/05/17 at 21:00 Nitroglycerin (Nitroglycerin 2% Oint) 0.5 inch Q6 PRN TD CHEST PAIN; Start 03/13 at 10:30 Ondansetron HCl (Zofran Inj) 4 mg Q6H PRN IV NAUSEA; Start 01/05/17 at 10:30 Sertraline HCl (Zoloft) 75 mg DAILY PO Last administered on 01/06/17 10:00; Admin Dose 75 MG; Start 01/05/17 at 10:30 Sildenafil Citrate (Revatio) 20 mg TID PO Last administered on 01/06/17 14:00 ; Admin Dose 20 MG; Start 01/05/17 at 13:00 Tacrolimus (Prograf) 2 mg QPM PO Last administered on 01/05/17 20:51; Admin Dose 2 MG; Start 01/05/17 at 21:00 Pantoprazole (Protonix Tab) 40 mg DAILY@06 PO Last administered on 01/06/17 06 :59; Admin Dose 40 MG; Start 01/06/17 at 06:00 Senna (Senokot) 1 tab HS PO Last administered on 01/05/17 20:50; Admin Dose 1 TAB; Start 01/05/17 at 21:00 Prednisone (Prednisone) 5 mg DAILY PO Last administered on 01/06/17 10:00; Admin Dose 5 MG; Start 01/05/17 at 12:00 Prednisone (Prednisone) 3 mg DAILY PO Last administered on 01/06/17 10:05; Admin Dose 3 MG; Start 01/05/17 at 12:00 Miscellaneous Information 1 ea NOTE XX ; Start 01/05/17 at 11:00 Glucose (Glutose) 15 gm Q15M PRN PO DECREASED GLUCOSE; Start 01/05/17 at 11:00 Glucose (Glutose) 22.5 gm Q15M PRN PO DECREASED GLUCOSE; Start 01/05/17 at 11: 00 Dextrose (D50w Syringe) 25 ml Q15M PRN IV DECREASED GLUCOSE; Start 01/05/17 at 11:00 Dextrose (D50w Syringe) 50 ml Q15M PRN IV DECREASED GLUCOSE; Start 01/05/17 at 11:00 Glucagon (Glucagen) 1 mg Q15M PRN IM DECREASED GLUCOSE; Start 01/05/17 at 11:00 Glucose (Glutose) 15 gm Q15M PRN BUCCAL DECREASED GLUCOSE; Start 01/05/17 at 11 :00 Oxcarbazepine (Trileptal) 600 mg BID PO Last administered on 01/06/17 10:02; Admin Dose 600 MG; Start 01/05/17 at 12:00 Insulin Aspart NOVOLOG *MILD* ALGORI... Q4 SC Last administered on 01/06/17 13 :56; Admin Dose 1 UNIT; Start 01/05/17 at 13:00 Vancomycin HCl 1.25 gm/Sodium Chloride 250 ml @ 83.333 mls/ hr Q48H IVPB ; Start 01/07/17 at 03:00 Fentanyl 100 ml @ 2.5 mls/hr TITRATE IV Last administered on 01/06/17 13:12; Admin Dose 2.5 MLS/HR; Start 01/06/17 at 09:30 Norepinephrine/ Dextrose (Levophed/D5W) 500 ml @ 0 mls/hr TITRATE IV ; Start 04/12 at 13:30 Bumetanide (Bumex) 1 mg DAILY IV ; Start 01/07/17 at 09:00 Assessment/Plan Chief Complaint/Hosp Course Assessment: 1. s/p cardiopulmonary arrest: Most likely due to pulmonary arrest 2. P afib: currently in NSR 3. History of renal failure status post renal transplant 4. Acute on chronic hypoxemic hypercapnic respiratory failure status post tracheostomy currently on the vent 5. Shock: currently blood pressure has improved 6. ANEMIA 7. breast cancer 8. history of HTN: currently hypotensive but improved 9. anxiety 10. DM 11. Hypothyroidism: on synthroid. Recommendations: cont eliquis as long as no signs of active bleeding vent support for now anti- rejection medications to be adjusted as per renal team cont DM control thyroid supplement off of pressors now. resume betablocker now that BP remains stable. correct lytes prn cont tele monitoring cont ICU care. Thank you for this referral I will continue to follow along with you. AUGUSTINA MALDONADO MD [facility] Problems: AUGUSTINA MALDONADO MD Jan 06, 2017 16:56
--- NOTE | 2017-01-06 17:31 | PN ---
DATE: 01/06/2017 SUBJECTIVE DATA: No events overnight. The patient is awake, looks comfortable, on vent. No fevers. No pressors. OBJECTIVE DATA: VITAL SIGNS: Temperature 97.5, pulse 71, respirations 16, blood pressure 130/45, saturation 100 on vent. LABORATORY AND DIAGNOSTIC DATA: WBC 11, H and H 9.4 and 29.5, platelets 253,000, and neutrophils at 87.1. BUN 61, creatinine 2.33. MICROBIOLOGY: Blood cultures negative. Sputum culture positive for normal respiratory scarlett. INDWELLINGS: Endotracheal tube, NG tube, Dela Cruz catheter, and right femoral triple lumen catheter. ANTIMICROBIAL: Vancomycin and cefepime. PHYSICAL EXAMINATION: GENERAL: This is a fragile, chronically ill-appearing, elderly woman, who is awake, in no distress. HEENT: Head atraumatic, normocephalic. Sclerae anicteric. Buccal mucosa dry. NECK: Supple. CHEST: Chest rise symmetrical. Breath sounds diminished at the bases. HEART: S1, S2. ABDOMEN: Soft, bowel sounds present. EXTREMITIES: No cyanosis. ASSESSMENT: 1. Status post septic shock. 2. Acute respiratory failure, possibly aspiration event. 3. Acute on chronic kidney disease. 4. Congestive heart failure exacerbation. 5. History of breast cancer. 6. Diabetes. 7. History of renal transplant with chronic allograft failure. PLAN: 1. The patient remains hemodynamically stable. 2. Covered with broad-spectrum antibiotics, so far cultures are negative. 3. Continue present care. 4. Vent management as per Pulmonary. Dictated By: Artis Castañeda NP /[email or web address] /Document#: [id number]
[2017-01-06] MEDS: MIRTAZAPINE 15 MG TAB PO SCH (20:06)
[2017-01-06] MEDS: SENNA TAB PO SCH (20:07)
--- NOTE | 2017-01-06 22:50 | CONS ---
Date/Time of Note Date/Time of Note DATE: 01/06/17 TIME: 22:49 Assessment/Plan Assessment/Plan Chief Complaint/Hosp Course History of breast cancer with lung metastasis. The patient is on medical management. cont Faslodex as outpt Anemia. Monitor hemoglobin and hematocrit levels. 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 Congestive heart failure exacerbation. Hypothyroidism. Diabetes. Continue current insulin regimen. Pulmonary hypertension. Depression. Problems: Consultation Date/Type/Reason Admit Date/Time Jan 05, 2017 at 00:15 Initial Consult Date 01/05/17 Type of Consultation: [facility] Referring Provider: SUSAN SIMENTAL DO 24 HR Interval Summary Free Text/Dictation all noted Exam/Review of Systems Vital Signs Vitals Vital Signs Date Time Temp Pulse Resp B/P Pulse Ox O2 Delivery O2 Flow Rate FiO2 01/06/17 22:00 79 17 165/76 99 Mechanical Ventilator 01/06/17 20:00 40 01/06/17 20:00 98.5 Intake and Output 01/05/17 01/05/17 01/06/17 15:00 23:00 07:00 Intake Total 548.3 ml 844.0 ml 663.0 ml Output Total 165 ml 190 ml Balance 548.3 ml 679.0 ml 473.0 ml Exam HEENT: Head is normocephalic. NECK: Supple. HEART: Regular rate. LUNGS: Show diminished breath sounds at the base. ABDOMEN: Soft, nontender to palpation. No rebound or guarding. EXTREMITIES: Negative for clubbing, cyanosis. No edema. DERMATOLOGIC: Clean. No rashes. MUSCULOSKELETAL: No joint effusion. NEUROLOGIC: No change in exam. + SCROTAL EDEMA NO NEW PETECHIA OR HEMATOMA Results Result Diagram: 01/06/17 0500 01/06/17 0500 Results 24 hrs Laboratory Tests Test 01/06/17 01:23 01/06/17 05:00 01/06/17 05:38 01/06/17 11:02 Bedside Glucose 139 111 136 White Blood Count 11.0 H Red Blood Count 3.14 L Hemoglobin 9.4 L Hematocrit 29.5 L Mean Corpuscular Volume 93.9 Mean Corpuscular Hemoglobin 29.9 Mean Corpuscular Hemoglobin Concent 31.9 L Red Cell Distribution Width 15.8 H Platelet Count 253 Mean Platelet Volume 9.4 Neutrophils % 87.1 H Lymphocytes % 6.3 L Monocytes % 4.8 Eosinophils % 1.3 Basophils % 0.1 Nucleated Red Blood Cells % 0.0 Neutrophils # (Manual) 9.6 H Lymphocytes # 0.7 L Monocytes # 0.5 Eosinophils # 0.1 Basophils # 0.0 Nucleated Red Blood Cells # 0.0 Sodium Level 134 L Potassium Level 4.7 Chloride Level 95 L Carbon Dioxide Level 33 H Anion Gap 11 Blood Urea Nitrogen 61 H Creatinine 2.33 H Glucose Level 94 # Calcium Level 9.5 Phosphorus Level 3.5 Magnesium Level 2.4 Test 01/06/17 13:51 01/06/17 18:57 01/06/17 20:55 Bedside Glucose 187 168 217 Medications Medications Current Medications Propofol 100 ml @ 2.1 mls/hr Q12H IV Last administered on 01/06/17 21:46; Admin Dose 8.4 MLS/HR; Start 01/05/17 at 01:00 Cefepime HCl (Maxipime 2gm/50 ml (Pmx)) 50 ml @ 100 mls/hr DAILY IVPB Last administered on 01/06/17 10:00; Admin Dose 100 MLS/HR; Start 01/05/17 at 02:30 Naloxone HCl 0.4 mg 0.4 mg Q4 PRN IV SEDATION; Start 01/05/17 at 01:30 Sodium Chloride (NS) 1,000 ml @ 50 mls/hr Q20H IV Last administered on 23:22; Admin Dose 75 MLS/HR; Start 01/05/17 at 02:00 Vancomycin HCl (Vanco Iv Per Pharmacy) PER PHARMACY DOSING NOTE XX ; Start 01/05 at 02:00 Acetaminophen (Tylenol Tab) 650 mg Q6H PRN PO PAIN AND OR ELEVATED TEMP; Start 01/05/17 at 10:30 Apixaban (Eliquis) 2.5 mg BID PO Last administered on 01/06/17 20:41; Admin Dose 2.5 MG; Start 01/05/17 at 10:30 Ascorbic Acid (Vitamin C) 500 mg BID PO Last administered on 01/06/17 20:06; Admin Dose 500 MG; Start 01/05/17 at 10:30 Bisacodyl (Dulcolax Supp) 10 mg DAILY UT Last administered on 01/06/17 10:00; Admin Dose 10 MG; Start 01/06/17 at 09:00 Budesonide (Pulmicort (Neb)) 0.25 mg BID NEB Last administered on 01/06/17 20: 14; Admin Dose 0.25 MG; Start 01/05/17 at 10:30 Docusate Sodium (Colace) 100 mg BID PO Last administered on 01/06/17 20:06; Admin Dose 100 MG; Start 01/05/17 at 10:30 Fluticasone Propionate (Flonase 0.05% Nasal) 1 spray DAILY NASAL Last administered on 01/06/17 10:01; Admin Dose 1 SPRAY; Start 01/05/17 at 11:00 Fulvestrant (Faslodex) 500 mg Q28D IM ; Start 01/05/17 at 10:30; Status UNV Insulin Glargine (Lantus) 18 unit DAILY SC Last administered on 01/06/17 10:58 ; Admin Dose 18 UNIT; Start 01/05/17 at 10:30 Loratadine (Claritin) 10 mg DAILY PO Last administered on 01/06/17 10:01; Admin Dose 10 MG; Start 01/05/17 at 11:00 Magnesium Hydroxide (Milk Of Mag) 30 ml BID PRN PO CONSTIPATION; Start at 10:30 Magnesium Oxide (Mag-Ox 400) 400 mg DAILY PO Last administered on 01/06/17 10: 01; Admin Dose 400 MG; Start 01/05/17 at 10:30 Metoprolol Tartrate (Lopressor) 25 mg Q8 PO Last administered on 01/06/17 22: 18; Admin Dose 25 MG; Start 01/05/17 at 14:00 Mirtazapine (Remeron) 15 mg HS PO Last administered on 01/06/17 20:06; Admin Dose 15 MG; Start 01/05/17 at 21:00 Nitroglycerin (Nitroglycerin 2% Oint) 0.5 inch Q6 PRN TD CHEST PAIN; Start 03/13 at 10:30 Ondansetron HCl (Zofran Inj) 4 mg Q6H PRN IV NAUSEA; Start 01/05/17 at 10:30 Sertraline HCl (Zoloft) 75 mg DAILY PO Last administered on 01/06/17 10:00; Admin Dose 75 MG; Start 01/05/17 at 10:30 Sildenafil Citrate (Revatio) 20 mg TID PO Last administered on 01/06/17 22:17 ; Admin Dose 20 MG; Start 01/05/17 at 13:00 Tacrolimus (Prograf) 2 mg QPM PO Last administered on 01/06/17 20:40; Admin Dose 2 MG; Start 01/05/17 at 21:00 Pantoprazole (Protonix Tab) 40 mg DAILY@06 PO Last administered on 01/06/17 06 :59; Admin Dose 40 MG; Start 01/06/17 at 06:00 Senna (Senokot) 1 tab HS PO Last administered on 01/06/17 20:07; Admin Dose 1 TAB; Start 01/05/17 at 21:00 Prednisone (Prednisone) 5 mg DAILY PO Last administered on 01/06/17 10:00; Admin Dose 5 MG; Start 01/05/17 at 12:00 Prednisone (Prednisone) 3 mg DAILY PO Last administered on 01/06/17 10:05; Admin Dose 3 MG; Start 01/05/17 at 12:00 Miscellaneous Information 1 ea NOTE XX ; Start 01/05/17 at 11:00 Glucose (Glutose) 15 gm Q15M PRN PO DECREASED GLUCOSE; Start 01/05/17 at 11:00 Glucose (Glutose) 22.5 gm Q15M PRN PO DECREASED GLUCOSE; Start 01/05/17 at 11: 00 Dextrose (D50w Syringe) 25 ml Q15M PRN IV DECREASED GLUCOSE; Start 01/05/17 at 11:00 Dextrose (D50w Syringe) 50 ml Q15M PRN IV DECREASED GLUCOSE; Start 01/05/17 at 11:00 Glucagon (Glucagen) 1 mg Q15M PRN IM DECREASED GLUCOSE; Start 01/05/17 at 11:00 Glucose (Glutose) 15 gm Q15M PRN BUCCAL DECREASED GLUCOSE; Start 01/05/17 at 11 :00 Oxcarbazepine (Trileptal) 600 mg BID PO Last administered on 01/06/17 20:40; Admin Dose 600 MG; Start 01/05/17 at 12:00 Insulin Aspart NOVOLOG *MILD* ALGORI... Q4 SC Last administered on 01/06/17 21 :04; Admin Dose 2 UNIT; Start 01/05/17 at 13:00 Vancomycin HCl 1.25 gm/Sodium Chloride 250 ml @ 83.333 mls/ hr Q48H IVPB ; Start 01/07/17 at 03:00 Fentanyl 100 ml @ 2.5 mls/hr TITRATE IV Last administered on 01/06/17 13:12; Admin Dose 2.5 MLS/HR; Start 01/06/17 at 09:30 Norepinephrine/ Dextrose (Levophed/D5W) 500 ml @ 0 mls/hr TITRATE IV ; Start 04/12 at 13:30 Bumetanide (Bumex) 1 mg DAILY IV ; Start 01/07/17 at 09:00 SHANICE DAVENPORT MD Jan 06, 2017 22:49
[2017-01-07] VITALS (40 sets, daily range): BP systolic 92–182; BP diastolic 39–96; PULSE 63–81; RESP 12–33
[2017-01-07] MEDS: INSULIN ASPART [NOVOLOG] 3 ML PEN SC SCH ×6 (00:53→21:00)
[2017-01-07] MEDS: ALBUTEROL 18 GM INHALER INH SCH ×2 (01:30→07:23)
[2017-01-07] MEDS: IPRATROPIUM (HFA) 12.9 GM INHALER INH SCH ×2 (01:30→07:23)
[2017-01-07] MEDS: FENTAnyl (DRIP) 1000 mcg/100mL 100 ML IV SCH (02:25)
[2017-01-07] MEDS ORDERED: VANCOMYCIN 1.25 GM in SOD CHLORIDE 0.9% 250 ML IVPB SCH (03:00)
[2017-01-07] MEDS: PROPOFOL 100 ML IV SCH (05:33)
[2017-01-07] MEDS: PANTOPRAZOLE (EC) 40 MG TAB PO SCH (05:33)
[2017-01-07] MEDS: METOPROLOL 25 MG TAB PO SCH ×3 (05:34→21:32)
[2017-01-07] MEDS: SOD CHLORIDE 0.9% 1,000 ML IV SCH ×2 (05:34→08:00)
[2017-01-07 05:53] LABS: ABNORMAL IP MESSAGE 1; BASOPHILS % 0.1 % (0.0-2.0); EOSINOPHILS # 0.2 10^3/ul (0.0-0.5); EOSINOPHILS % 2.1 % (0.0-7.0); HEMATOCRIT 28.4 % (37.0-47.0); HEMOGLOBIN 8.9 g/dl (12.0-16.0); LYMPHOCYTES # 0.6 10^3/ul (0.8-2.9); LYMPHOCYTES % 5.7 % (15.0-51.0); MEAN CORPUSCULAR HEMOGLOBIN 29.8 pg (29.0-33.0); MEAN CORPUSCULAR HGB CONC 31.3 g/dl (32.0-37.0); MEAN PLATELET VOLUME 9.8 fl (7.4-10.4); MONOCYTE # 0.5 10^3/ul (0.3-0.9); MONOCYTES % 4.4 % (0.0-11.0); NEUTROPHILS % 87.1 % (39.0-77.0); PLATELET COUNT 257 10^3/UL (140-415); RED BLOOD COUNT 2.99 10^6/ul (4.20-5.40); RED CELL DISTRIBUTION WIDTH 15.9 % (11.5-14.5); WHITE BLOOD COUNT 10.2 10^3/ul (4.8-10.8)
[2017-01-07 05:54] LABS: POSITIVE DIFF @See below
[2017-01-07 06:24] LABS: CALCIUM 9.2 mg/dl (8.4-10.2); CREATININE 2.3 mg/dl (0.44-1.00); MAGNESIUM 2.4 mg/dl (1.7-2.5); PHOSPHORUS 4.5 mg/dl (2.5-4.9); POTASSIUM 4.9 mmol/L (3.5-5.1)
[2017-01-07] MEDS: LEVOTHYROXINE 75 MCG TAB PO SCH (07:57)
--- NOTE | 2017-01-07 08:21 | CONS ---
Date/Time of Note Date/Time of Note DATE: 01/07/17 TIME: 08:19 Consult Date/Type/Reason Admit Date/Time Jan 05, 2017 at 00:15 Initial Consult Date 01/05/17 Type of Consultation: [facility] Ordering Provider: SUSAN SIMENTAL DO Subjective CARDIOLOGY FOLLOW UP NOTE: D/W Staff and rhythm was reviewed. pt remains in NSR. no more Afib. pt remains intubated on vent. NO reports of any chest pain or pressure OBJECTIVE: General: intubated on vent. HEENT: NC/AT. pupils are equal. round. NECK: NO JVD. no stridor. CV: RRR. systolic murmur; no gallop or rubs. PULM: no wheezing, + mild rhonchi. GI: SOFT, NT, ND, no rebound or guarding Extremity: trace B/L LE edema. no clubbing. neuro: opens her eyes . Psych: unable to assess rectal: deferred : normal ECHO 12/16/16: Personally reviewed 1. Normal left ventricular systolic function. Normal left ventricular cavity size. Moderate concentric left ventricular hypertrophy. Ejection fraction is visually estimated at 65 %. Abnormal Diastolic Function. 2. There is moderate enlargement of left atrium. 3. Mild mitral leaflet calcification. Mild mitral annular calcification. Trace mitral regurgitation. 4. Aortic sclerosis without stenosis. Trace aortic valve regurgitation. 5. Normal appearance of the tricuspid valve. Estimated peak PA systolic pressure 38 mmHg. There is mild tricuspid regurgitation. Objective Vital Signs Date Time Temp Pulse Resp B/P Pulse Ox O2 Delivery O2 Flow Rate FiO2 01/07/17 06:00 70 15 125/51 98 Mechanical Ventilator 01/07/17 04:55 40 01/07/17 04:00 97.7 Intake and Output 01/06/17 01/06/17 01/07/17 15:00 23:00 07:00 Intake Total 676.0 ml 643.1 ml 623.6 ml Output Total 145 ml 185 ml Balance 676.0 ml 498.1 ml 438.6 ml Results/Medications Result Diagram: 01/07/17 0500 01/07/17 0500 Results 24 hrs Laboratory Tests Test 01/06/17 11:02 01/06/17 13:51 01/06/17 18:57 01/06/17 20:55 Bedside Glucose 136 187 168 217 Test 01/07/17 00:53 01/07/17 04:56 01/07/17 05:00 Bedside Glucose 136 103 White Blood Count 10.2 Red Blood Count 2.99 L Hemoglobin 8.9 L Hematocrit 28.4 L Mean Corpuscular Volume 95.0 Mean Corpuscular Hemoglobin 29.8 Mean Corpuscular Hemoglobin Concent 31.3 L Red Cell Distribution Width 15.9 H Platelet Count 257 Mean Platelet Volume 9.8 Neutrophils % 87.1 H Lymphocytes % 5.7 L Monocytes % 4.4 Eosinophils % 2.1 Basophils % 0.1 Nucleated Red Blood Cells % 0.0 Neutrophils # (Manual) 8.9 H Lymphocytes # 0.6 L Monocytes # 0.5 Eosinophils # 0.2 Basophils # 0.0 Nucleated Red Blood Cells # 0.0 Sodium Level 132 L Potassium Level 4.9 Chloride Level 95 L Carbon Dioxide Level 29 Anion Gap 13 Blood Urea Nitrogen 63 H Creatinine 2.30 H Glucose Level 109 Calcium Level 9.2 Phosphorus Level 4.5 Magnesium Level 2.4 Medications Current Medications Propofol 100 ml @ 2.1 mls/hr Q12H IV Last administered on 01/07/17 05:33; Admin Dose 8.4 MLS/HR; Start 01/05/17 at 01:00 Cefepime HCl (Maxipime 2gm/50 ml (Pmx)) 50 ml @ 100 mls/hr DAILY IVPB Last administered on 01/06/17 10:00; Admin Dose 100 MLS/HR; Start 01/05/17 at 02:30 Naloxone HCl 0.4 mg 0.4 mg Q4 PRN IV SEDATION; Start 01/05/17 at 01:30 Sodium Chloride (NS) 1,000 ml @ 50 mls/hr Q20H IV Last administered on 23:22; Admin Dose 75 MLS/HR; Start 01/05/17 at 02:00 Vancomycin HCl (Vanco Iv Per Pharmacy) PER PHARMACY DOSING NOTE XX ; Start 01/05 at 02:00 Acetaminophen (Tylenol Tab) 650 mg Q6H PRN PO PAIN AND OR ELEVATED TEMP; Start 01/05/17 at 10:30 Apixaban (Eliquis) 2.5 mg BID PO Last administered on 01/06/17 20:41; Admin Dose 2.5 MG; Start 01/05/17 at 10:30 Ascorbic Acid (Vitamin C) 500 mg BID PO Last administered on 01/06/17 20:06; Admin Dose 500 MG; Start 01/05/17 at 10:30 Bisacodyl (Dulcolax Supp) 10 mg DAILY [place] Last administered on 01/06/17 10:00; Admin Dose 10 MG; Start 01/06/17 at 09:00 Budesonide (Pulmicort (Neb)) 0.25 mg BID NEB Last administered on 01/06/17 20: 14; Admin Dose 0.25 MG; Start 01/05/17 at 10:30 Docusate Sodium (Colace) 100 mg BID PO Last administered on 01/06/17 20:06; Admin Dose 100 MG; Start 01/05/17 at 10:30 Fluticasone Propionate (Flonase 0.05% Nasal) 1 spray DAILY NASAL Last administered on 01/06/17 10:01; Admin Dose 1 SPRAY; Start 01/05/17 at 11:00 Fulvestrant (Faslodex) 500 mg Q28D IM ; Start 01/05/17 at 10:30; Status UNV Insulin Glargine (Lantus) 18 unit DAILY SC Last administered on 01/06/17 10:58 ; Admin Dose 18 UNIT; Start 01/05/17 at 10:30 Loratadine (Claritin) 10 mg DAILY PO Last administered on 01/06/17 10:01; Admin Dose 10 MG; Start 01/05/17 at 11:00 Magnesium Hydroxide (Milk Of Mag) 30 ml BID PRN PO CONSTIPATION; Start at 10:30 Magnesium Oxide (Mag-Ox 400) 400 mg DAILY PO Last administered on 01/06/17 10: 01; Admin Dose 400 MG; Start 01/05/17 at 10:30 Metoprolol Tartrate (Lopressor) 25 mg Q8 PO Last administered on 01/07/17 05: 34; Admin Dose 25 MG; Start 01/05/17 at 14:00 Mirtazapine (Remeron) 15 mg HS PO Last administered on 01/06/17 20:06; Admin Dose 15 MG; Start 01/05/17 at 21:00 Nitroglycerin (Nitroglycerin 2% Oint) 0.5 inch Q6 PRN TD CHEST PAIN; Start 03/13 at 10:30 Ondansetron HCl (Zofran Inj) 4 mg Q6H PRN IV NAUSEA; Start 01/05/17 at 10:30 Sertraline HCl (Zoloft) 75 mg DAILY PO Last administered on 01/06/17 10:00; Admin Dose 75 MG; Start 01/05/17 at 10:30 Sildenafil Citrate (Revatio) 20 mg TID PO Last administered on 01/06/17 22:17 ; Admin Dose 20 MG; Start 01/05/17 at 13:00 Tacrolimus (Prograf) 2 mg QPM PO Last administered on 01/06/17 20:40; Admin Dose 2 MG; Start 01/05/17 at 21:00 Pantoprazole (Protonix Tab) 40 mg DAILY@06 PO Last administered on 01/07/17 05 :33; Admin Dose 40 MG; Start 01/06/17 at 06:00 Senna (Senokot) 1 tab HS PO Last administered on 01/06/17 20:07; Admin Dose 1 TAB; Start 01/05/17 at 21:00 Prednisone (Prednisone) 5 mg DAILY PO Last administered on 01/06/17 10:00; Admin Dose 5 MG; Start 01/05/17 at 12:00 Prednisone (Prednisone) 3 mg DAILY PO Last administered on 01/06/17 10:05; Admin Dose 3 MG; Start 01/05/17 at 12:00 Miscellaneous Information 1 ea NOTE XX ; Start 01/05/17 at 11:00 Glucose (Glutose) 15 gm Q15M PRN PO DECREASED GLUCOSE; Start 01/05/17 at 11:00 Glucose (Glutose) 22.5 gm Q15M PRN PO DECREASED GLUCOSE; Start 01/05/17 at 11: 00 Dextrose (D50w Syringe) 25 ml Q15M PRN IV DECREASED GLUCOSE; Start 01/05/17 at 11:00 Dextrose (D50w Syringe) 50 ml Q15M PRN IV DECREASED GLUCOSE; Start 01/05/17 at 11:00 Glucagon (Glucagen) 1 mg Q15M PRN IM DECREASED GLUCOSE; Start 01/05/17 at 11:00 Glucose (Glutose) 15 gm Q15M PRN BUCCAL DECREASED GLUCOSE; Start 01/05/17 at 11 :00 Oxcarbazepine (Trileptal) 600 mg BID PO Last administered on 01/06/17 20:40; Admin Dose 600 MG; Start 01/05/17 at 12:00 Insulin Aspart NOVOLOG *MILD* ALGORI... Q4 SC Last administered on 01/06/17 21 :04; Admin Dose 2 UNIT; Start 01/05/17 at 13:00 Vancomycin HCl 1.25 gm/Sodium Chloride 250 ml @ 83.333 mls/ hr Q48H IVPB Last administered on 01/07/17 02:26; Admin Dose 83.333 MLS/HR; Start 01/07/17 at 03: 00 Fentanyl 100 ml @ 2.5 mls/hr TITRATE IV Last administered on 01/07/17 02:25; Admin Dose 7.5 MLS/HR; Start 01/06/17 at 09:30 Norepinephrine/ Dextrose (Levophed/D5W) 500 ml @ 0 mls/hr TITRATE IV ; Start 04/12 at 13:30 Bumetanide (Bumex) 1 mg DAILY IV ; Start 01/07/17 at 09:00 Assessment/Plan Chief Complaint/Hosp Course Assessment: 1. s/p cardiopulmonary arrest: Most likely due to pulmonary arrest 2. P afib: currently in NSR 3. History of renal failure status post renal transplant 4. Acute on chronic hypoxemic hypercapnic respiratory failure status post tracheostomy currently on the vent 5. Shock: currently blood pressure has improved 6. ANEMIA 7. breast cancer 8. history of HTN: currently hypotensive but improved 9. anxiety 10. DM 11. Hypothyroidism: on synthroid. Recommendations: cont eliquis as long as no signs of active bleeding vent support for now anti- rejection medications to be adjusted as per renal team cont DM control thyroid supplement cont betablocker now that BP remains stable. correct lytes prn cont tele monitoring cont ICU care. Thank you for this referral I will continue to follow along with you. AUGUSTINA MALDONADO MD [facility] Problems: AUGUSTINA MALDONADO MD Jan 07, 2017 08:21
--- NOTE | 2017-01-07 08:25 | PN ---
DATE: 01/07/2017 SUBJECTIVE DATA: The patient remains critically ill, on full ventilatory support. No other events noted. No hemoptysis, hematemesis, hematochezia. OBJECTIVE DATA: VITAL SIGNS: Blood pressure is 125/51, respirations 15, pulse 70, temperature 97.7. HEENT: Head is normocephalic. NECK: Supple. HEART: Regular rate. LUNGS: Showed diminished breath sounds at the base. ABDOMEN: Soft, nontender to palpation. No rebound or guarding. EXTREMITIES: Negative for clubbing, cyanosis. No edema. DERMATOLOGIC: Clean. No rashes. MUSCULOSKELETAL: No joint effusion. NEUROLOGIC: No change in exam. MEDICATIONS: Reviewed. LABORATORY AND DIAGNOSTIC DATA: Shows sodium 132, potassium 4.9, chloride 95, BUN 63, creatinine 2.30. White count 7.2, hemoglobin 8.9, crit of 28.4, platelet count is 257. ASSESSMENT AND PLAN: 1. Status post Code Arrest. Etiology is likely secondary to aspiration pneumonia. The patient is hemodynamically stable. Continue to monitor. Follow up with Cardiology. 2. Ventilatory-dependent respiratory failure. Vent settings and ABGs have been reviewed. Continue to monitor. Follow up with Pulmonary. Continue weaning. 3. Acute congestive heart failure exacerbation. Continue current medical management. We will defer to Cardiology for diuretic management. 4. Sepsis, status post shock. The patient is off pressors. Continue current antibiotic regimen. 5. Paroxysmal atrial fibrillation. Currently in sinus rhythm. 6. 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 The patient's baseline creatinine is around 1.5 to 1.7 mg/dL. Etiology of acute kidney injury secondary to acute tubular necrosis due to Code Arrest. The patient's renal function appears to have stabilized. At this point, continue current treatment plan, supportive care. We will follow up the Prograf level. Monitor closely. 7. History of end-stage renal disease, status post renal transplant with chronic allograft failure. The patient is currently in acute kidney injury as stated above. Continue current immunosuppressive regimen. Continue prednisone. Follow up Prograf level. 8. Hypothyroidism. Continue Synthroid. 9. Anemia. We will monitor H and H levels. 10. History of breast cancer with metastasis. The patient is currently being seen by Oncology. 11. Diabetes. Continue Accu-Cheks and insulin sliding scale. 12. Pulmonary hypertension. Continue medical management. 13. Anxiety, depression. 14. Mild hyponatremia. Continue to monitor. 15. Gastrointestinal and deep venous thrombosis prophylaxis. Continue proton pump inhibitor and heparin. 16. Nutrition. We will attempt to start tube feedings if patient is unable to be extubated. Dictated By: Cameron Rosenthal DO /[email or web address] /Document#: [id number]
[2017-01-07] MEDS: TACROLIMUS 1 MG CAP PO SCH ×2 (08:35→20:30)
[2017-01-07] MEDS: DOCUSATE SODIUM 100 MG CAP PO SCH ×2 (09:00→20:30)
[2017-01-07] MEDS ORDERED: BUMETANIDE 1 MG INJ IV SCH (09:00)
[2017-01-07] MEDS: INSULIN GLARGINE [LANtus] 3 ML PEN SC SCH (09:23)
[2017-01-07] MEDS: BISACODYL 10 MG SUPP PR SCH (09:24)
[2017-01-07] MEDS: MAGNESIUM OXIDE 400 MG TAB PO SCH (09:24)
[2017-01-07] MEDS: LORATADINE 10 MG TAB PO SCH (09:24)
[2017-01-07] MEDS: ASCORBIC ACID 500 MG TAB PO SCH ×2 (09:24→20:30)
[2017-01-07] MEDS: APIXABAN 5 MG TABLET PO SCH ×2 (09:24→20:31)
[2017-01-07] MEDS: predniSONE 1 MG TAB PO SCH (09:24)
[2017-01-07] MEDS: predniSONE 5 MG TAB PO SCH (09:24)
[2017-01-07] MEDS: CEFEPIME 2GM/50 ML (PMX) 50 ML IVPB SCH (09:25)
[2017-01-07] MEDS: FLUTICASONE 0.05% 16 GM NAS SPRAY NASAL SCH (09:25)
[2017-01-07] MEDS: OXCARBAZEPINE 300 MG TAB PO SCH ×2 (09:27→20:31)
[2017-01-07] MEDS: SERTRALINE 50 MG TAB PO SCH (09:27)
[2017-01-07 09:44] LABS: AADO2 Arterial 155.9 mmHg (7.0-24.0); Allen Test ACCEPTAB; Arterial Base Excess 2.4 mmol/L (-3.0-3); Arterial COHb 0.1 % (0.0-3.0); Arterial Fraction of Oxyhgb 93.8 % (93.0-99.0); Arterial HCO3 28.3 mmol/L (22.0-26.0); Arterial MetHb 0.3 % (0.0-1.5); Arterial Total Hemglobin 11.1 g/dl (12.0-18.0); Blood Gas PS 10; MODE VENT - CPAP
[2017-01-07] MEDS: BUDESONIDE (NEB) 0.25 MG/2 ML AMP NEB SCH ×2 (09:45→20:06)
--- NOTE | 2017-01-07 10:09 | RADRPT ---
PROCEDURE: XR Chest 1 View. CLINICAL INDICATION: Shortness of breath. TECHNIQUE: AP view of the chest was obtained. COMPARISON: DR SEXTON 01/05/2017 FINDINGS: The cardiomediastinal silhouette is within normal limits. Endotracheal and nasogastric tube are stab le and appear in grossly appropriate location. Consolidation of the right upper lobe appears to have increased. Small right pleural effusion with associated basilar atelectasis/infiltrate is unchanged . Central pulmonary vascular congestion and interstitial prominence in both lungs is stable. Small l eft pleural effusion with associated basilar atelectasis is observed. Surgical clips are identified in the left axilla. The osseous structures appear grossly intact. IMPRESSION: Interval increase in right upper lobe consolidation. Stable central pulmonary vascular congestion and mild interstitial prominence in both lungs. Stable small right pleural effusion with associated basilar atelectasis/infiltrates. Stable small left pleural effusion with associated basilar atelectasis. RPTAT: AA .Abelino Dhaliwal MD, MD Date Time Electronically viewed and signed by .Abelino Dhaliwal MD, on 01/07/2017 10:08 .P/
--- NOTE | 2017-01-07 10:15 | CONS ---
Date/Time of Note Date/Time of Note DATE: 01/07/17 TIME: 10:12 Assessment/Plan Assessment/Plan Additional Assessment/Plan Ventilator setting; patient currently on CPAP with pressure support of 10, PEEP of 5, 30% FiO2. Vision currently on propofol at 20 mics per kilogram per minute, fentanyl at 50 mics per hour. Assessment and recommendations; 1. Patient admitted with respiratory failure possibly from opioid overdose. 2. Chronic immunosuppression due to history of renal transplant. 3. History of diabetes, hypothyroidism. 4. Possibly CHF. Hold sedation completely. The patient is off sedation she will be evaluated for extubation. Meanwhile continue current supportive care. 35 minutes of critical care time was spent evaluating the patient. Consultation Date/Type/Reason Admit Date/Time Jan 05, 2017 at 00:15 Initial Consult Date 01/05/17 Type of Consultation: Pulmonary/critical care Referring Provider: SUSAN SIMENTAL DO 24 HR Interval Summary Free Text/Dictation Patient condition remains critical but stable. Patient sedation dosing has been decreased and has been switched over to CPAP mode and exhibiting good weaning parameters. She is completely awake and alert. General exam; elderly woman, orally intubated, awake and alert. Currently in no distress. Exam/Review of Systems Vital Signs Vitals Vital Signs Date Time Temp Pulse Resp B/P Pulse Ox O2 Delivery O2 Flow Rate FiO2 01/07/17 08:00 64 01/07/17 06:00 15 125/51 98 Mechanical Ventilator 01/07/17 04:55 40 01/07/17 04:00 97.7 Intake and Output 01/06/17 01/06/17 01/07/17 15:00 23:00 07:00 Intake Total 676.0 ml 643.1 ml 623.6 ml Output Total 145 ml 185 ml Balance 676.0 ml 498.1 ml 438.6 ml Exam HEENT exam; supple neck, positive JVD. No lymphadenopathy. Midline trachea. No thyromegaly. Patient has multiple carious teeth. Has bilateral intraocular lens implants. There is mild left subconjunctival edema. Orally intubated. Chest exam; diminished but clear breath sounds. S1-S2 audible, no murmurs. Regular rhythm. Abdomen exam; soft, no organomegaly. Bowel sounds audible. Nontender. Nondistended. Extremity exam; no peripheral edema. Peripheral pulses are feeble. No clubbing. PHLEBOTOMY TECHNICIAN exam; patient is awake and follows simple commands. Results Result Diagram: 01/07/17 0500 01/07/17 0500 Results 24 hrs Laboratory Tests Test 01/06/17 11:02 01/06/17 13:51 01/06/17 18:57 01/06/17 20:55 Bedside Glucose 136 187 168 217 Test 01/07/17 00:53 01/07/17 04:56 01/07/17 05:00 01/07/17 09:03 Bedside Glucose 136 103 White Blood Count 10.2 Red Blood Count 2.99 L Hemoglobin 8.9 L Hematocrit 28.4 L Mean Corpuscular Volume 95.0 Mean Corpuscular Hemoglobin 29.8 Mean Corpuscular Hemoglobin Concent 31.3 L Red Cell Distribution Width 15.9 H Platelet Count 257 Mean Platelet Volume 9.8 Neutrophils % 87.1 H Lymphocytes % 5.7 L Monocytes % 4.4 Eosinophils % 2.1 Basophils % 0.1 Nucleated Red Blood Cells % 0.0 Neutrophils # (Manual) 8.9 H Lymphocytes # 0.6 L Monocytes # 0.5 Eosinophils # 0.2 Basophils # 0.0 Nucleated Red Blood Cells # 0.0 Sodium Level 132 L Potassium Level 4.9 Chloride Level 95 L Carbon Dioxide Level 29 Anion Gap 13 Blood Urea Nitrogen 63 H Creatinine 2.30 H Glucose Level 109 Calcium Level 9.2 Phosphorus Level 4.5 Magnesium Level 2.4 Blood Gas Specimen Source Blood arterial Arterial Blood Date Drawn 01/07/2017 9:30:56 AM Arterial Blood pH (Temp corrected) 7.374 Arterial Blood pCO2 (Temp correct) 49.6 H Arterial Blood pO2 (Temp corrected) 72.3 L Arterial Blood HCO3 28.3 H Arterial Blood Base Excess 2.4 Arterial Blood Oxygen Saturation 94.2 L Rey Test ACCEPTAB Arterial Blood Gas Puncture Site Right Radial Arterial Blood Carboxyhemoglobin 0.1 Arterial Blood Methemoglobin 0.3 Blood Gas A-a O2 Differential 155.9 H Oxyhemoglobin Percent 93.8 Total Hemoglobin 11.1 L Blood Gas Temperature 37.0 Blood Gas Actual Respiration Rate 28 Blood Gas Modality VENT - CPAP FiO2 40.0 Blood Gas Low PEEP Setting 5.0 Blood Gas Pressure Support 10 Blood Gas Notified Whom JLD Blood Gas Notified Time 01/07/2017 9:44:19 AM Test 01/07/17 09:14 Bedside Glucose 148 Medications Medications Current Medications Propofol 100 ml @ 2.1 mls/hr Q12H IV Last administered on 01/07/17 05:33; Admin Dose 8.4 MLS/HR; Start 01/05/17 at 01:00 Cefepime HCl (Maxipime 2gm/50 ml (Pmx)) 50 ml @ 100 mls/hr DAILY IVPB Last administered on 01/07/17 09:25; Admin Dose 100 MLS/HR; Start 01/05/17 at 02:30 Naloxone HCl 0.4 mg 0.4 mg Q4 PRN IV SEDATION; Start 01/05/17 at 01:30 Sodium Chloride (NS) 1,000 ml @ 50 mls/hr Q20H IV Last administered on 23:22; Admin Dose 75 MLS/HR; Start 01/05/17 at 02:00 Vancomycin HCl (Vanco Iv Per Pharmacy) PER PHARMACY DOSING NOTE XX ; Start 01/05 at 02:00 Acetaminophen (Tylenol Tab) 650 mg Q6H PRN PO PAIN AND OR ELEVATED TEMP; Start 01/05/17 at 10:30 Apixaban (Eliquis) 2.5 mg BID PO Last administered on 01/07/17 09:24; Admin Dose 2.5 MG; Start 01/05/17 at 10:30 Ascorbic Acid (Vitamin C) 500 mg BID PO Last administered on 01/07/17 09:24; Admin Dose 500 MG; Start 01/05/17 at 10:30 Bisacodyl (Dulcolax Supp) 10 mg DAILY [place] Last administered on 01/07/17 09:24; Admin Dose 10 MG; Start 01/06/17 at 09:00 Budesonide (Pulmicort (Neb)) 0.25 mg BID NEB Last administered on 01/07/17 09: 45; Admin Dose 0.25 MG; Start 01/05/17 at 10:30 Docusate Sodium (Colace) 100 mg BID PO Last administered on 01/06/17 20:06; Admin Dose 100 MG; Start 01/05/17 at 10:30 Fluticasone Propionate (Flonase 0.05% Nasal) 1 spray DAILY NASAL Last administered on 01/07/17 09:25; Admin Dose 1 SPRAY; Start 01/05/17 at 11:00 Fulvestrant (Faslodex) 500 mg Q28D IM ; Start 01/05/17 at 10:30; Status UNV Insulin Glargine (Lantus) 18 unit DAILY SC Last administered on 01/07/17 09:23 ; Admin Dose 18 UNIT; Start 01/05/17 at 10:30 Loratadine (Claritin) 10 mg DAILY PO Last administered on 01/07/17 09:24; Admin Dose 10 MG; Start 01/05/17 at 11:00 Magnesium Hydroxide (Milk Of Mag) 30 ml BID PRN PO CONSTIPATION; Start at 10:30 Magnesium Oxide (Mag-Ox 400) 400 mg DAILY PO Last administered on 01/07/17 09: 24; Admin Dose 400 MG; Start 01/05/17 at 10:30 Metoprolol Tartrate (Lopressor) 25 mg Q8 PO Last administered on 01/07/17 05: 34; Admin Dose 25 MG; Start 01/05/17 at 14:00 Mirtazapine (Remeron) 15 mg HS PO Last administered on 01/06/17 20:06; Admin Dose 15 MG; Start 01/05/17 at 21:00 Nitroglycerin (Nitroglycerin 2% Oint) 0.5 inch Q6 PRN TD CHEST PAIN; Start 03/13 at 10:30 Ondansetron HCl (Zofran Inj) 4 mg Q6H PRN IV NAUSEA; Start 01/05/17 at 10:30 Sertraline HCl (Zoloft) 75 mg DAILY PO Last administered on 01/07/17 09:27; Admin Dose 75 MG; Start 01/05/17 at 10:30 Sildenafil Citrate (Revatio) 20 mg TID PO Last administered on 01/06/17 22:17 ; Admin Dose 20 MG; Start 01/05/17 at 13:00 Tacrolimus (Prograf) 2 mg QPM PO Last administered on 01/06/17 20:40; Admin Dose 2 MG; Start 01/05/17 at 21:00 Pantoprazole (Protonix Tab) 40 mg DAILY@06 PO Last administered on 01/07/17 05 :33; Admin Dose 40 MG; Start 01/06/17 at 06:00 Senna (Senokot) 1 tab HS PO Last administered on 01/06/17 20:07; Admin Dose 1 TAB; Start 01/05/17 at 21:00 Prednisone (Prednisone) 5 mg DAILY PO Last administered on 01/07/17 09:24; Admin Dose 5 MG; Start 01/05/17 at 12:00 Prednisone (Prednisone) 3 mg DAILY PO Last administered on 01/07/17 09:24; Admin Dose 3 MG; Start 01/05/17 at 12:00 Miscellaneous Information 1 ea NOTE XX ; Start 01/05/17 at 11:00 Glucose (Glutose) 15 gm Q15M PRN PO DECREASED GLUCOSE; Start 01/05/17 at 11:00 Glucose (Glutose) 22.5 gm Q15M PRN PO DECREASED GLUCOSE; Start 01/05/17 at 11: 00 Dextrose (D50w Syringe) 25 ml Q15M PRN IV DECREASED GLUCOSE; Start 01/05/17 at 11:00 Dextrose (D50w Syringe) 50 ml Q15M PRN IV DECREASED GLUCOSE; Start 01/05/17 at 11:00 Glucagon (Glucagen) 1 mg Q15M PRN IM DECREASED GLUCOSE; Start 01/05/17 at 11:00 Glucose (Glutose) 15 gm Q15M PRN BUCCAL DECREASED GLUCOSE; Start 01/05/17 at 11 :00 Oxcarbazepine (Trileptal) 600 mg BID PO Last administered on 01/07/17 09:27; Admin Dose 600 MG; Start 01/05/17 at 12:00 Insulin Aspart NOVOLOG *MILD* ALGORI... Q4 SC Last administered on 01/07/17 09 :18; Admin Dose 1 UNIT; Start 01/05/17 at 13:00 Vancomycin HCl 1.25 gm/Sodium Chloride 250 ml @ 83.333 mls/ hr Q48H IVPB Last administered on 01/07/17 02:26; Admin Dose 83.333 MLS/HR; Start 01/07/17 at 03: 00 Fentanyl 100 ml @ 2.5 mls/hr TITRATE IV Last administered on 01/07/17 02:25; Admin Dose 7.5 MLS/HR; Start 01/06/17 at 09:30 Norepinephrine/ Dextrose (Levophed/D5W) 500 ml @ 0 mls/hr TITRATE IV ; Start 04/12 at 13:30 Bumetanide (Bumex) 1 mg DAILY IV Last administered on 01/07/17t 09:25; Admin Dose 1 MG; Start 01/07/17 at 09:00 JOELLE INFANTE Jan 07, 2017 10:15
[2017-01-07] MEDS: SILDENAFIL 20 MG TAB PO SCH ×3 (10:16→21:00)
[2017-01-07] MEDS ORDERED: ALBUTEROL/IPRATROPIUM (NEB) 3 ML AMP HHN PRN (11:30)
[2017-01-07 11:50] LABS: AADO2 Arterial 113.7 mmHg (7.0-24.0); Allen Test ACCEPTAB; Arterial Base Excess -1.6 mmol/L (-3.0-3); Arterial COHb 0.3 % (0.0-3.0); Arterial Fraction of Oxyhgb 83.4 % (93.0-99.0); Arterial HCO3 25.9 mmol/L (22.0-26.0); Arterial MetHb 0.5 % (0.0-1.5); Arterial Total Hemglobin 10.6 g/dl (12.0-18.0); MODE NASAL CANNULA
[2017-01-07] MEDS: ONDANSETRON 4 MG INJ IV PRN ×2 (12:40→21:31)
[2017-01-07] MEDS: ALBUTEROL/IPRATROPIUM (NEB) 3 ML AMP HHN SCH ×2 (13:38→19:17)
[2017-01-07 15:42] LABS: MICROALBUMIN 75.6 mg/dL
--- NOTE | 2017-01-07 16:51 | CONS ---
Date/Time of Note Date/Time of Note DATE: 01/07/17 TIME: 16:50 Assessment/Plan Assessment/Plan Chief Complaint/Hosp Course History of breast cancer with lung metastasis. The patient is on medical management. cont Faslodex as outpt Anemia. Monitor hemoglobin and hematocrit levels. 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 Congestive heart failure exacerbation. Hypothyroidism. Diabetes. Continue current insulin regimen. Pulmonary hypertension. Depression. Problems: Consultation Date/Type/Reason Admit Date/Time Jan 05, 2017 at 00:15 Initial Consult Date 01/05/17 Type of Consultation: [facility] Referring Provider: SUSAN SIMENTAL DO 24 HR Interval Summary Free Text/Dictation all noted no bleeding post prbc Exam/Review of Systems Vital Signs Vitals Vital Signs Date Time Temp Pulse Resp B/P Pulse Ox O2 Delivery O2 Flow Rate FiO2 01/07/17 15:00 71 15 130/62 100 Mechanical Ventilator 01/07/17 12:00 70 01/07/17 12:00 98.0 01/07/17 10:45 4.0 Intake and Output 01/06/17 01/06/17 01/07/17 15:00 23:00 07:00 Intake Total 676.0 ml 643.1 ml 683.6 ml Output Total 145 ml 195 ml Balance 676.0 ml 498.1 ml 488.6 ml Exam HEENT: Head is normocephalic. NECK: Supple. HEART: Regular rate. LUNGS: Show diminished breath sounds at the base. ABDOMEN: Soft, nontender to palpation. No rebound or guarding. EXTREMITIES: Negative for clubbing, cyanosis. No edema. DERMATOLOGIC: Clean. No rashes. MUSCULOSKELETAL: No joint effusion. NEUROLOGIC: No change in exam. + SCROTAL EDEMA NO NEW PETECHIA OR HEMATOMA Results Result Diagram: 01/07/17 0500 01/07/17 0500 Results 24 hrs Laboratory Tests Test 01/06/17 18:57 01/06/17 20:55 01/07/17 00:53 01/07/17 04:56 Bedside Glucose 168 217 136 103 Test 01/07/17 05:00 01/07/17 09:03 01/07/17 09:14 01/07/17 11:25 White Blood Count 10.2 Red Blood Count 2.99 L Hemoglobin 8.9 L Hematocrit 28.4 L Mean Corpuscular Volume 95.0 Mean Corpuscular Hemoglobin 29.8 Mean Corpuscular Hemoglobin Concent 31.3 L Red Cell Distribution Width 15.9 H Platelet Count 257 Mean Platelet Volume 9.8 Neutrophils % 87.1 H Lymphocytes % 5.7 L Monocytes % 4.4 Eosinophils % 2.1 Basophils % 0.1 Nucleated Red Blood Cells % 0.0 Neutrophils # (Manual) 8.9 H Lymphocytes # 0.6 L Monocytes # 0.5 Eosinophils # 0.2 Basophils # 0.0 Nucleated Red Blood Cells # 0.0 Sodium Level 132 L Potassium Level 4.9 Chloride Level 95 L Carbon Dioxide Level 29 Anion Gap 13 Blood Urea Nitrogen 63 H Creatinine 2.30 H Glucose Level 109 Calcium Level 9.2 Phosphorus Level 4.5 Magnesium Level 2.4 Blood Gas Specimen Source Blood arterial Blood arterial Arterial Blood Date Drawn 01/07/2017 9:30:56 AM 01/07/2017 11:30:29 AM Arterial Blood pH (Temp corrected) 7.374 7.272 *L Arterial Blood pCO2 (Temp correct) 49.6 H 57.4 H Arterial Blood pO2 (Temp corrected) 72.3 L 54.6 *L Arterial Blood HCO3 28.3 H 25.9 Arterial Blood Base Excess 2.4 -1.6 Arterial Blood Oxygen Saturation 94.2 L 84.1 L Rey Test ACCEPTAB ACCEPTAB Arterial Blood Gas Puncture Site Right Radial Right Radial Arterial Blood Carboxyhemoglobin 0.1 0.3 Arterial Blood Methemoglobin 0.3 0.5 Blood Gas A-a O2 Differential 155.9 H 113.7 H Oxyhemoglobin Percent 93.8 83.4 L Total Hemoglobin 11.1 L 10.6 L Blood Gas Temperature 37.0 37.0 Blood Gas Actual Respiration Rate 28 Blood Gas Modality VENT - CPAP NASAL CANNULA FiO2 40.0 33.0 Blood Gas Low PEEP Setting 5.0 Blood Gas Pressure Support 10 Blood Gas Notified Whom KEVIN BROWN Blood Gas Notified Time 01/07/2017 9:44:19 AM 01/07/2017 11:50:18 AM Bedside Glucose 148 Blood Gas Critical Value Read Back Y GISELLE RN Test 01/07/17 14:37 Bedside Glucose 165 Medications Medications Current Medications Propofol 100 ml @ 2.1 mls/hr Q12H IV Last administered on 01/07/17 05:33; Admin Dose 8.4 MLS/HR; Start 01/05/17 at 01:00 Cefepime HCl (Maxipime 2gm/50 ml (Pmx)) 50 ml @ 100 mls/hr DAILY IVPB Last administered on 01/07/17 09:25; Admin Dose 100 MLS/HR; Start 01/05/17 at 02:30 Naloxone HCl 0.4 mg 0.4 mg Q4 PRN IV SEDATION; Start 01/05/17 at 01:30 Sodium Chloride (NS) 1,000 ml @ 50 mls/hr Q20H IV Last administered on 08:00; Admin Dose 50 MLS/HR; Start 01/05/17 at 02:00 Vancomycin HCl (Vanco Iv Per Pharmacy) PER PHARMACY DOSING NOTE XX ; Start 01/05 at 02:00 Acetaminophen (Tylenol Tab) 650 mg Q6H PRN PO PAIN AND OR ELEVATED TEMP; Start 01/05/17 at 10:30 Apixaban (Eliquis) 2.5 mg BID PO Last administered on 01/07/17 09:24; Admin Dose 2.5 MG; Start 01/05/17 at 10:30 Ascorbic Acid (Vitamin C) 500 mg BID PO Last administered on 01/07/17 09:24; Admin Dose 500 MG; Start 01/05/17 at 10:30 Bisacodyl (Dulcolax Supp) 10 mg DAILY KS Last administered on 01/07/17 09:24; Admin Dose 10 MG; Start 01/06/17 at 09:00 Budesonide (Pulmicort (Neb)) 0.25 mg BID NEB Last administered on 01/07/17 09: 45; Admin Dose 0.25 MG; Start 01/05/17 at 10:30 Docusate Sodium (Colace) 100 mg BID PO Last administered on 01/06/17 20:06; Admin Dose 100 MG; Start 01/05/17 at 10:30 Fluticasone Propionate (Flonase 0.05% Nasal) 1 spray DAILY NASAL Last administered on 01/07/17 09:25; Admin Dose 1 SPRAY; Start 01/05/17 at 11:00 Fulvestrant (Faslodex) 500 mg Q28D IM ; Start 01/05/17 at 10:30; Status UNV Insulin Glargine (Lantus) 18 unit DAILY SC Last administered on 01/07/17 09:23 ; Admin Dose 18 UNIT; Start 01/05/17 at 10:30 Loratadine (Claritin) 10 mg DAILY PO Last administered on 01/07/17 09:24; Admin Dose 10 MG; Start 01/05/17 at 11:00 Magnesium Hydroxide (Milk Of Mag) 30 ml BID PRN PO CONSTIPATION; Start at 10:30 Magnesium Oxide (Mag-Ox 400) 400 mg DAILY PO Last administered on 01/07/17 09: 24; Admin Dose 400 MG; Start 01/05/17 at 10:30 Metoprolol Tartrate (Lopressor) 25 mg Q8 PO Last administered on 01/07/17 14: 32; Admin Dose 25 MG; Start 01/05/17 at 14:00 Mirtazapine (Remeron) 15 mg HS PO Last administered on 01/06/17 20:06; Admin Dose 15 MG; Start 01/05/17 at 21:00 Nitroglycerin (Nitroglycerin 2% Oint) 0.5 inch Q6 PRN TD CHEST PAIN; Start 03/13 at 10:30 Ondansetron HCl (Zofran Inj) 4 mg Q6H PRN IV NAUSEA Last administered on 12:40; Admin Dose 4 MG; Start 01/05/17 at 10:30 Sertraline HCl (Zoloft) 75 mg DAILY PO Last administered on 01/07/17 09:27; Admin Dose 75 MG; Start 01/05/17 at 10:30 Sildenafil Citrate (Revatio) 20 mg TID PO Last administered on 01/07/17 14:00 ; Admin Dose 20 MG; Start 01/05/17 at 13:00 Tacrolimus (Prograf) 2 mg QPM PO Last administered on 01/06/17 20:40; Admin Dose 2 MG; Start 01/05/17 at 21:00 Pantoprazole (Protonix Tab) 40 mg DAILY@06 PO Last administered on 01/07/17 05 :33; Admin Dose 40 MG; Start 01/06/17 at 06:00 Senna (Senokot) 1 tab HS PO Last administered on 01/06/17 20:07; Admin Dose 1 TAB; Start 01/05/17 at 21:00 Prednisone (Prednisone) 5 mg DAILY PO Last administered on 01/07/17 09:24; Admin Dose 5 MG; Start 01/05/17 at 12:00 Prednisone (Prednisone) 3 mg DAILY PO Last administered on 01/07/17 09:24; Admin Dose 3 MG; Start 01/05/17 at 12:00 Miscellaneous Information 1 ea NOTE XX ; Start 01/05/17 at 11:00 Glucose (Glutose) 15 gm Q15M PRN PO DECREASED GLUCOSE; Start 01/05/17 at 11:00 Glucose (Glutose) 22.5 gm Q15M PRN PO DECREASED GLUCOSE; Start 01/05/17 at 11: 00 Dextrose (D50w Syringe) 25 ml Q15M PRN IV DECREASED GLUCOSE; Start 01/05/17 at 11:00 Dextrose (D50w Syringe) 50 ml Q15M PRN IV DECREASED GLUCOSE; Start 01/05/17 at 11:00 Glucagon (Glucagen) 1 mg Q15M PRN IM DECREASED GLUCOSE; Start 01/05/17 at 11:00 Glucose (Glutose) 15 gm Q15M PRN BUCCAL DECREASED GLUCOSE; Start 01/05/17 at 11 :00 Oxcarbazepine (Trileptal) 600 mg BID PO Last administered on 01/07/17 09:27; Admin Dose 600 MG; Start 01/05/17 at 12:00 Insulin Aspart NOVOLOG *MILD* ALGORI... Q4 SC Last administered on 01/07/17 14 :40; Admin Dose 1 UNIT; Start 01/05/17 at 13:00 Vancomycin HCl 1.25 gm/Sodium Chloride 250 ml @ 83.333 mls/ hr Q48H IVPB Last administered on 01/07/17 02:26; Admin Dose 83.333 MLS/HR; Start 01/07/17 at 03: 00 Fentanyl 100 ml @ 2.5 mls/hr TITRATE IV Last administered on 01/07/17 02:25; Admin Dose 7.5 MLS/HR; Start 01/06/17 at 09:30 Norepinephrine/ Dextrose (Levophed/D5W) 500 ml @ 0 mls/hr TITRATE IV ; Start 04/12 at 13:30 Bumetanide (Bumex) 1 mg DAILY IV Last administered on 01/07/17t 09:25; Admin Dose 1 MG; Start 01/07/17 at 09:00 SHANICE DAVENPORT MD Jan 07, 2017 16:51
--- NOTE | 2017-01-07 17:59 | PN ---
DATE: 01/07/2017 SUBJECTIVE DATA: The patient was extubated this morning. She is awake, confused, looks comfortable. Breathing comfortably on nasal cannula. OBJECTIVE DATA: VITAL SIGNS: Temperature 97.7, pulse 70, respirations 20, blood pressure 167/58, saturation 98 on 4 L. LABORATORY AND DIAGNOSTIC DATA: WBC 10.2, H and H 8.9 and 28.4, platelets 257, and neutrophils 87.1. BUN 63 and creatinine 2.30. MICROBIOLOGY: Endotracheal aspirate grew yeast. Blood and urine culture remain negative. DIAGNOSTICS: Chest x-ray revealed increased right upper lobe consolidation, otherwise no change. INDWELLINGS: The patient has Dela Cruz catheter and right femoral triple lumen catheter. ANTIMICROBIALS: Vancomycin and cefepime. PHYSICAL EXAMINATION: GENERAL: This is a fragile, chronically ill-appearing, elderly woman, who is awake, confused, and in no distress. HEENT: Head atraumatic, normocephalic. Sclerae anicteric. Buccal mucosa dry. NECK: Supple. Trachea midline. CHEST: Chest rise symmetrical. Breath sounds diminished at bases with scattered crackles. HEART: S1, S2. ABDOMEN: Soft, bowel sounds present. EXTREMITIES: Without cyanosis. ASSESSMENT: 1. Resolving sepsis. 2. Acute respiratory failure, status post extubated. 3. Pneumonia possibly aspiration type. 4. Oral thrush. 5. 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 6. History of breast cancer. 7. Diabetes. 8. Acute on chronic kidney disease. PLAN: 1. The patient remains stable post extubation. 2. We will add nystatin swish to the regimen. 3. Continue on current antibiotics. 4. Continue anti-aspiration measures. 5. Follow recommendations of consultants. Dictated By: Artis Castañeda NP /[email or web address] /Document#: [id number]
[2017-01-07 18:38] LABS: AADO2 Arterial 590.2 mmHg (7.0-24.0); Allen Test ACCEPTAB; Arterial Base Excess 0.7 mmol/L (-3.0-3); Arterial COHb 0.3 % (0.0-3.0); Arterial Fraction of Oxyhgb 91.9 % (93.0-99.0); Arterial HCO3 27.1 mmol/L (22.0-26.0); Arterial MetHb 0.3 % (0.0-1.5); Arterial Total Hemglobin 9.6 g/dl (12.0-18.0); Blood Gas PS 7; MODE MASK - BIPAP
[2017-01-07] MEDS: SENNA TAB PO SCH (20:30)
[2017-01-07] MEDS: MIRTAZAPINE 15 MG TAB PO SCH (20:30)
[2017-01-08] VITALS (53 sets, daily range): BP systolic 84–186; BP diastolic 40–108; PULSE 58–82; RESP 12–29
[2017-01-08 00:11] LABS: AADO2 Arterial 584.5 mmHg (7.0-24.0); Allen Test ACCEPTAB; Arterial COHb 0.3 % (0.0-3.0); Arterial Fraction of Oxyhgb 86.9 % (93.0-99.0); Arterial HCO3 31.5 mmol/L (22.0-26.0); Arterial MetHb 0.3 % (0.0-1.5); Arterial Total Hemglobin 10.6 g/dl (12.0-18.0); MODE MASK - BIPAP
[2017-01-08] MEDS: INSULIN ASPART [NOVOLOG] 3 ML PEN SC SCH ×6 (01:00→21:00)
--- NOTE | 2017-01-08 01:26 | EN ---
Date/Time of Note Date/Time of Note DATE: 01/08/17 TIME: 01:25 ER Progress Note Called to ICU to intubate. This is a 71-year-old female who was admitted for respiratory failure. Patient underwent CODE BLUE on the floor today and was successfully resuscitated and brought to the ICU. The patient has been on BiPAP for respiratory difficulty however her ABG does not look good in the primary care physician is requesting intubation because of a poor ABG as well as accessory muscle use while already being on BiPAP. My arrival the patient is arousable having some mild accessory muscle use with diffuse rhonchi in her lungs. Endotracheal Intubation by me: Pre assessment performed. See preceding note for details. Pre-oxygenation performed with 100% oxygen RSI: Performed w/o complication or hypoxic events. Medications as ordered. Blade: [Mac 4] ET Tube: 7.0] cm Depth: 23] cm at the lip Intubation confirmed by colorimetric CO2, equal breath sounds, quiet over the stomach. Chest X-ray 1V Interpreted by me: [XOXOXO] cm above the hussein ET tube. Normal soft tissue, No pneumothorax. CELSO OLVERA DO Jan 08, 2017 01:26
[2017-01-08] MEDS: PROPOFOL 100 ML IV SCH ×4 (01:30→23:22)
--- NOTE | 2017-01-08 01:47 | RADRPT ---
PROCEDURE: XR Chest. CLINICAL INDICATION: Post intubation TECHNIQUE: Single frontal view of the chest was obtained COMPARISON: 01/04/2017 FINDINGS: The tip of the endotracheal tube is approximately 5.1 cm above the hussein. Nasogastric tube is in th e stomach with the side port in the distal esophagus and should be advanced at least 7 cm. ECG leads projected over the chest. Surgical clips again seen in left axillary region. . Enlargement of the c ardiac silhouette, pulmonary vascular congestion and bilateral lung density consistent with pulmonar y edema is again seen. There is appearance of a moderate large right pleural effusion increased comp ared to previous study. Degenerative changes in thoracic spine. IMPRESSION: The tip of the endotracheal tube is approximately 5.1 cm above the hussein. Nasogastric tube is in th e stomach with the side port in the distal esophagus and should be advanced at least 7 cm. Consisten t with congestive heart failure and pulmonary edema. Moderately large right pleural effusion increas ed compared to previous study. Please see above. RPTAT: HJES .Nate Alcala MD, Date Time Electronically viewed and signed by .Nate Alcala MD, on 01/08/2017 01:47 .S/
[2017-01-08 02:28] LABS: AADO2 Arterial 578.8 mmHg (7.0-24.0); Allen Test ACCEPTAB; Arterial Base Excess 3.1 mmol/L (-3.0-3); Arterial COHb 0.3 % (0.0-3.0); Arterial Fraction of Oxyhgb 94.8 % (93.0-99.0); Arterial HCO3 29.7 mmol/L (22.0-26.0); Arterial MetHb 0.3 % (0.0-1.5); Arterial Total Hemglobin 10.2 g/dl (12.0-18.0); MODE VENT - AC
[2017-01-08] MEDS: ALBUTEROL 18 GM INHALER INH SCH ×4 (02:37→20:22)
[2017-01-08] MEDS: IPRATROPIUM (HFA) 12.9 GM INHALER INH SCH ×4 (02:37→20:22)
[2017-01-08 05:21] LABS: ABNORMAL IP MESSAGE 1; BASOPHILS % 0.1 % (0.0-2.0); EOSINOPHILS % 0.2 % (0.0-7.0); HEMATOCRIT 27.1 % (37.0-47.0); HEMOGLOBIN 8.3 g/dl (12.0-16.0); LYMPHOCYTES # 0.4 10^3/ul (0.8-2.9); LYMPHOCYTES % 3.1 % (15.0-51.0); MEAN CORPUSCULAR HEMOGLOBIN 29.1 pg (29.0-33.0); MEAN CORPUSCULAR HGB CONC 30.6 g/dl (32.0-37.0); MEAN CORPUSCULAR VOLUME 95.1 fl (82.0-101.0); MEAN PLATELET VOLUME 9.5 fl (7.4-10.4); MONOCYTE # 0.6 10^3/ul (0.3-0.9); MONOCYTES % 5.1 % (0.0-11.0); NEUTROPHIL # 10.2 10^3/ul (1.6-7.5); NEUTROPHILS % 90.8 % (39.0-77.0); PLATELET COUNT 261 10^3/UL (140-415); RED BLOOD COUNT 2.85 10^6/ul (4.20-5.40); RED CELL DISTRIBUTION WIDTH 15.8 % (11.5-14.5); WHITE BLOOD COUNT 11.2 10^3/ul (4.8-10.8)
[2017-01-08 05:41] LABS: POSITIVE DIFF @See below
[2017-01-08 05:43] LABS: CALCIUM 9.4 mg/dl (8.4-10.2); CREATININE 2.61 mg/dl (0.44-1.00); MAGNESIUM 2.5 mg/dl (1.7-2.5); PHOSPHORUS 4.9 mg/dl (2.5-4.9); POTASSIUM 4.9 mmol/L (3.5-5.1)
[2017-01-08] MEDS: METOPROLOL 25 MG TAB PO SCH ×3 (06:21→22:27)
[2017-01-08] MEDS: LEVOTHYROXINE 75 MCG TAB PO SCH (06:21)
[2017-01-08] MEDS: PANTOPRAZOLE (EC) 40 MG TAB PO SCH (06:21)
[2017-01-08] MEDS ORDERED: SUCCINYLCHOLINE CHLORIDE 100 MG/5 ML SYG IV ONE (07:00)
[2017-01-08] MEDS ORDERED: ETOMIDATE 20 MG INJ ONE (07:00)
[2017-01-08] MEDS ORDERED: PENDING SANTYL ORDER FOR WOUND CARE XX PRN ×2 (07:30→10:00)
[2017-01-08] MEDS ORDERED: FUROSEMIDE 40 MG INJ IV SCH (07:30)
--- NOTE | 2017-01-08 07:46 | CONS ---
Date/Time of Note Date/Time of Note DATE: 01/08/17 TIME: 07:43 Consult Date/Type/Reason Admit Date/Time Jan 05, 2017 at 00:15 Initial Consult Date 01/05/17 Type of Consultation: CARDIOLOGY Ordering Provider: SUSAN SIMENTAL DO Subjective CARDIOLOGY FOLLOW UP NOTE: D/W Staff and rhythm was reviewed. pt remains in NSR. no more Afib. pt remains intubated on vent NOW. pt was extubated on 01/07/17 but had to be re- intubated again due to resp distress even on BIPAP. NO reports of any chest pain or pressure OBJECTIVE: General: intubated on vent. HEENT: NC/AT. pupils are equal. round. NECK: NO JVD. no stridor. CV: RRR. systolic murmur; no gallop or rubs. PULM: no wheezing, + mild rhonchi. GI: SOFT, NT, ND, no rebound or guarding Extremity: trace B/L LE edema. no clubbing. neuro: sedated. . Psych: unable to assess rectal: deferred : normal ECHO 12/16/16: Personally reviewed 1. Normal left ventricular systolic function. Normal left ventricular cavity size. Moderate concentric left ventricular hypertrophy. Ejection fraction is visually estimated at 65 %. Abnormal Diastolic Function. 2. There is moderate enlargement of left atrium. 3. Mild mitral leaflet calcification. Mild mitral annular calcification. Trace mitral regurgitation. 4. Aortic sclerosis without stenosis. Trace aortic valve regurgitation. 5. Normal appearance of the tricuspid valve. Estimated peak PA systolic pressure 38 mmHg. There is mild tricuspid regurgitation. Objective Vital Signs Date Time Temp Pulse Resp B/P Pulse Ox O2 Delivery O2 Flow Rate FiO2 01/08/17 06:00 63 14 167/57 100 Mechanical Ventilator 01/08/17 05:00 90 01/08/17 04:00 98.0 01/07/17 10:45 4.0 Intake and Output 01/07/17 01/07/17 01/08/17 15:00 23:00 07:00 Intake Total 510 ml 200 ml 406.7 ml Output Total 65 ml 40 ml 35 ml Balance 445 ml 160 ml 371.7 ml Results/Medications Result Diagram: 01/08/17 0455 01/08/17 0430 Results 24 hrs Laboratory Tests Test 01/07/17 09:03 01/07/17 09:14 01/07/17 11:25 01/07/17 14:37 Blood Gas Specimen Source Blood arterial Blood arterial Arterial Blood Date Drawn 01/07/2017 9:30:56 AM 01/07/2017 11:30:29 AM Arterial Blood pH (Temp corrected) 7.374 7.272 *L Arterial Blood pCO2 (Temp correct) 49.6 H 57.4 H Arterial Blood pO2 (Temp corrected) 72.3 L 54.6 *L Arterial Blood HCO3 28.3 H 25.9 Arterial Blood Base Excess 2.4 -1.6 Arterial Blood Oxygen Saturation 94.2 L 84.1 L Rey Test ACCEPTAB ACCEPTAB Arterial Blood Gas Puncture Site Right Radial Right Radial Arterial Blood Carboxyhemoglobin 0.1 0.3 Arterial Blood Methemoglobin 0.3 0.5 Blood Gas A-a O2 Differential 155.9 H 113.7 H Oxyhemoglobin Percent 93.8 83.4 L Total Hemoglobin 11.1 L 10.6 L Blood Gas Temperature 37.0 37.0 Blood Gas Actual Respiration Rate 28 Blood Gas Modality VENT - CPAP NASAL CANNULA FiO2 40.0 33.0 Blood Gas Low PEEP Setting 5.0 Blood Gas Pressure Support 10 Blood Gas Notified Whom JLD JLD Blood Gas Notified Time 01/07/2017 9:44:19 AM 01/07/2017 11:50:18 AM Bedside Glucose 148 165 Blood Gas Critical Value Read Back Y GISELLE RN Test 01/07/17 17:25 01/07/17 18:31 01/07/17 21:37 01/07/17 23:53 Bedside Glucose 123 117 Blood Gas Specimen Source Blood arterial Blood arterial Arterial Blood Date Drawn 01/07/2017 6:25:28 PM 01/08/2017 12:00:35 AM Arterial Blood pH (Temp corrected) 7.327 L 7.258 *L Arterial Blood pCO2 (Temp correct) 53.0 H 72.2 H Arterial Blood pO2 (Temp corrected) 69.8 L 56.3 L Arterial Blood HCO3 27.1 H 31.5 H Arterial Blood Base Excess 0.7 3.0 Arterial Blood Oxygen Saturation 92.5 L 87.4 L Rey Test ACCEPTAB ACCEPTAB Arterial Blood Gas Puncture Site Right Radial Left Radial Arterial Blood Carboxyhemoglobin 0.3 0.3 Arterial Blood Methemoglobin 0.3 0.3 Blood Gas A-a O2 Differential 590.2 H 584.5 H Oxyhemoglobin Percent 91.9 L 86.9 L Total Hemoglobin 9.6 L 10.6 L Blood Gas Temperature 37.0 37.0 Blood Gas Respiration Rate 15.0 15.0 Blood Gas Actual Respiration Rate 32 27 Blood Gas Modality MASK - BIPAP MASK - BIPAP FiO2 100.0 100.0 Blood Gas Pressure Support 7 Blood Gas IPAP/EPAP Ratio 03/31 03/31 Blood Gas Notified Whom AT ND Blood Gas Notified Time 01/07/2017 6:38:31 PM 01/08/2017 12:11:36 AM Blood Gas Critical Value Read Back [facility] Test 01/08/17 01:29 01/08/17 02:15 01/08/17 04:30 01/08/17 04:31 Bedside Glucose 100 96 Blood Gas Specimen Source Blood arterial Arterial Blood Date Drawn 01/08/2017 2:20:29 AM Arterial Blood pH (Temp corrected) 7.343 L Arterial Blood pCO2 (Temp correct) 56.0 H Arterial Blood pO2 (Temp corrected) 78.2 L Arterial Blood HCO3 29.7 H Arterial Blood Base Excess 3.1 H Arterial Blood Oxygen Saturation 95.4 Rey Test ACCEPTAB Arterial Blood Gas Puncture Site Left Radial Arterial Blood Carboxyhemoglobin 0.3 Arterial Blood Methemoglobin 0.3 Blood Gas A-a O2 Differential 578.8 H Oxyhemoglobin Percent 94.8 Total Hemoglobin 10.2 L Blood Gas Temperature 37.0 Blood Gas Respiration Rate 12.0 Blood Gas Actual Respiration Rate 15 Blood Gas Modality VENT - AC FiO2 100.0 Blood Gas Tidal Volume 450.0 Blood Gas Low PEEP Setting 5.0 Blood Gas Inspiratory Pressure 35.0 Blood Gas Notified Whom luz walters mirror silverer Blood Gas Notified Time 01/08/2017 2:27:27 AM Sodium Level 134 L Potassium Level 4.9 Chloride Level 96 L Carbon Dioxide Level 30 Anion Gap 13 Blood Urea Nitrogen 64 H Creatinine 2.61 H Glucose Level 85 Calcium Level 9.4 Phosphorus Level 4.9 Magnesium Level 2.5 Test 01/08/17 04:55 White Blood Count 11.2 H Red Blood Count 2.85 L Hemoglobin 8.3 L Hematocrit 27.1 L Mean Corpuscular Volume 95.1 Mean Corpuscular Hemoglobin 29.1 Mean Corpuscular Hemoglobin Concent 30.6 L Red Cell Distribution Width 15.8 H Platelet Count 261 Mean Platelet Volume 9.5 Neutrophils % 90.8 H Lymphocytes % 3.1 L Monocytes % 5.1 Eosinophils % 0.2 Basophils % 0.1 Nucleated Red Blood Cells % 0.0 Neutrophils # 10.2 H Lymphocytes # 0.4 L Monocytes # 0.6 Eosinophils # 0.0 Basophils # 0.0 Nucleated Red Blood Cells # 0.0 Medications Current Medications Propofol 100 ml @ 2.1 mls/hr Q12H IV Last administered on 01/08/17 01:30; Admin Dose 2.1 MLS/HR; Start 01/05/17 at 01:00 Cefepime HCl (Maxipime 2gm/50 ml (Pmx)) 50 ml @ 100 mls/hr DAILY IVPB Last administered on 01/07/17 09:25; Admin Dose 100 MLS/HR; Start 01/05/17 at 02:30 Naloxone HCl (Narcan) 0.4 mg Q4 PRN IV SEDATION; Start 01/05/17 at 01:30 Vancomycin HCl (Vanco Iv Per Pharmacy) PER PHARMACY DOSING NOTE XX ; Start 01/05 at 02:00 Acetaminophen (Tylenol Tab) 650 mg Q6H PRN PO PAIN AND OR ELEVATED TEMP; Start 01/05/17 at 10:30 Apixaban (Eliquis) 2.5 mg BID PO Last administered on 01/07/17 20:31; Admin Dose 2.5 MG; Start 01/05/17 at 10:30 Ascorbic Acid (Vitamin C) 500 mg BID PO Last administered on 01/07/17 20:30; Admin Dose 500 MG; Start 01/05/17 at 10:30 Bisacodyl (Dulcolax Supp) 10 mg DAILY HI Last administered on 01/07/17 09:24; Admin Dose 10 MG; Start 01/06/17 at 09:00 Budesonide (Pulmicort (Neb)) 0.25 mg BID NEB Last administered on 01/07/17 20: 06; Admin Dose 0.25 MG; Start 01/05/17 at 10:30 Docusate Sodium (Colace) 100 mg BID PO Last administered on 01/07/17 20:30; Admin Dose 100 MG; Start 01/05/17 at 10:30 Fluticasone Propionate (Flonase 0.05% Nasal) 1 spray DAILY NASAL Last administered on 01/07/17 09:25; Admin Dose 1 SPRAY; Start 01/05/17 at 11:00 Fulvestrant (Faslodex) 500 mg Q28D IM ; Start 01/05/17 at 10:30; Status UNV Insulin Glargine (Lantus) 18 unit DAILY SC Last administered on 01/07/17 09:23 ; Admin Dose 18 UNIT; Start 01/05/17 at 10:30 Loratadine (Claritin) 10 mg DAILY PO Last administered on 01/07/17 09:24; Admin Dose 10 MG; Start 01/05/17 at 11:00 Magnesium Hydroxide (Milk Of Mag) 30 ml BID PRN PO CONSTIPATION; Start at 10:30 Magnesium Oxide (Mag-Ox 400) 400 mg DAILY PO Last administered on 01/07/17 09: 24; Admin Dose 400 MG; Start 01/05/17 at 10:30 Metoprolol Tartrate (Lopressor) 25 mg Q8 PO Last administered on 01/08/17 06: 21; Admin Dose 25 MG; Start 01/05/17 at 14:00 Mirtazapine (Remeron) 15 mg HS PO Last administered on 01/07/17 20:30; Admin Dose 15 MG; Start 01/05/17 at 21:00 Nitroglycerin (Nitroglycerin 2% Oint) 0.5 inch Q6 PRN TD CHEST PAIN; Start 03/13 at 10:30 Ondansetron HCl (Zofran Inj) 4 mg Q6H PRN IV NAUSEA Last administered on 21:31; Admin Dose 4 MG; Start 01/05/17 at 10:30 Sertraline HCl (Zoloft) 75 mg DAILY PO Last administered on 01/07/17 09:27; Admin Dose 75 MG; Start 01/05/17 at 10:30 Sildenafil Citrate (Revatio) 20 mg TID PO Last administered on 01/07/17 14:00 ; Admin Dose 20 MG; Start 01/05/17 at 13:00 Tacrolimus (Prograf) 2 mg QPM PO Last administered on 01/07/17 20:30; Admin Dose 2 MG; Start 01/05/17 at 21:00 Pantoprazole (Protonix Tab) 40 mg DAILY@06 PO Last administered on 01/08/17 06 :21; Admin Dose 40 MG; Start 01/06/17 at 06:00 Senna (Senokot) 1 tab HS PO Last administered on 01/07/17 20:30; Admin Dose 1 TAB; Start 01/05/17 at 21:00 Prednisone (Prednisone) 5 mg DAILY PO Last administered on 01/07/17 09:24; Admin Dose 5 MG; Start 01/05/17 at 12:00 Prednisone (Prednisone) 3 mg DAILY PO Last administered on 01/07/17 09:24; Admin Dose 3 MG; Start 01/05/17 at 12:00 Miscellaneous Information 1 ea NOTE XX ; Start 01/05/17 at 11:00 Glucose (Glutose) 15 gm Q15M PRN PO DECREASED GLUCOSE; Start 01/05/17 at 11:00 Glucose (Glutose) 22.5 gm Q15M PRN PO DECREASED GLUCOSE; Start 01/05/17 at 11: 00 Dextrose (D50w Syringe) 25 ml Q15M PRN IV DECREASED GLUCOSE; Start 01/05/17 at 11:00 Dextrose (D50w Syringe) 50 ml Q15M PRN IV DECREASED GLUCOSE; Start 01/05/17 at 11:00 Glucagon (Glucagen) 1 mg Q15M PRN IM DECREASED GLUCOSE; Start 01/05/17 at 11:00 Glucose (Glutose) 15 gm Q15M PRN BUCCAL DECREASED GLUCOSE; Start 01/05/17 at 11 :00 Oxcarbazepine (Trileptal) 600 mg BID PO Last administered on 01/07/17 20:31; Admin Dose 600 MG; Start 01/05/17 at 12:00 Insulin Aspart NOVOLOG *MILD* ALGORI... Q4 SC Last administered on 01/07/17 14 :40; Admin Dose 1 UNIT; Start 01/05/17 at 13:00 Vancomycin HCl 1.25 gm/Sodium Chloride 250 ml @ 83.333 mls/ hr Q48H IVPB Last administered on 01/07/17 02:26; Admin Dose 83.333 MLS/HR; Start 01/07/17 at 03: 00 Fentanyl 100 ml @ 2.5 mls/hr TITRATE IV Last administered on 01/07/17 02:25; Admin Dose 7.5 MLS/HR; Start 01/06/17 at 09:30 Norepinephrine/ Dextrose (Levophed/D5W) 500 ml @ 0 mls/hr TITRATE IV ; Start 04/12 at 13:30 Bumetanide (Bumex) 1 mg BID IV ; Start 01/08/17 at 09:00 Miscellaneous Information (Pending Santyl Order For Wound Care) This patient boogie... PRN PRN XX WOUND CARE; Start 01/08/17 at 07:30 Assessment/Plan Chief Complaint/Hosp Course Assessment: 1. s/p cardiopulmonary arrest: Most likely due to pulmonary arrest 2. P afib: currently in NSR 3. History of renal failure status post renal transplant: now with KATI on CKD 4. Acute on chronic hypoxemic hypercapnic respiratory failure status post intubation currently on the vent 5. Shock: resolved now. currently hypertensive, 6. ANEMIA 7. breast cancer 8. history of HTN: currently hypotensive but improved 9. anxiety 10. DM 11. Hypothyroidism: on synthroid. 12. pleural effusion Recommendations: cont eliquis as long as no signs of active bleeding and no surgery/ procedure is planned. man need to hold it if need to do thoracentesis. vent support for now anti- rejection medications to be adjusted as per renal team cont DM control thyroid supplement cont betablocker . correct lytes prn cont tele monitoring cont ICU care. CONSIDER THORACENTESIS. will defer to pulm rec. Thank you for this referral I will continue to follow along with you. AUGUSTINA MALDONADO MD [facility] Problems: AUGUSTINA MALDONADO MD Jan 08, 2017 07:46
--- NOTE | 2017-01-08 07:51 | PN ---
DATE: 01/08/2017 SUBJECTIVE DATA: Yesterday, the patient was extubated; however, was in acute respiratory distress, so had to be re-intubated overnight. The patient did have an episode of emesis with possibility of aspiration. No other events noted. OBJECTIVE DATA: VITAL SIGNS: Blood pressure is 167/57, respirations 14, pulse 63, temperature 98.0. I's and O's: Patient had 1100 in and 150 out. HEENT: Head is normocephalic. Pupils are reactive to light. NECK: Supple. HEART: Regular rate. LUNGS: Showed diminished breath sounds at the base. ABDOMEN: Soft. Nontender to palpation. No rebound or guarding. EXTREMITIES: Negative for clubbing, cyanosis. No edema. DERMATOLOGIC: Clean. No rashes. MUSCULOSKELETAL: No joint effusion. NEUROLOGIC: No focal deficits. MEDICATIONS: Reviewed. LABORATORY AND DIAGNOSTIC DATA: Shows white count 11.2, hemoglobin 8.3, crit 27.1, platelet count 261. Sodium 134, chloride 96, BUN 64, creatinine 2.61. The patient's repeat urinalysis shows a FENa less than 1 percent. The patient's chest x-ray shows pulmonary edema. ASSESSMENT AND PLAN: 1. Ventilatory-dependent respiratory failure. The patient was re-intubated. ABG and chest x-rays were reviewed. We will continue to monitor. Follow up with Pulmonary. The patient is restarted on diuretic therapy. 2. Acute congestive heart failure exacerbation. We start patient on diuretic therapy. Follow up with Cardiology recommendations. 3. Sepsis status post shock. Currently on presser. Continue current antibiotic regimen. 4. Paroxysmal atrial fibrillation. Currently in sinus rhythm. 5. 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 The patient's baseline creatinine is around 1.5 to 1.7 mg/dL. Etiology of acute kidney injury is secondary to acute tubular necrosis due to Code Arrest. The patient's renal function has declined in the last 24 hours. At this point, continue current treatment plan. Follow up Prograf level. Monitor closely. 6. History of end-stage renal disease, status post renal transplant with chronic allograft failure. The patient is currently in acute kidney injury as stated above. Continue current immunosuppressive regimen. Continue prednisone. Prograf level is pending. 7. Hypothyroidism. Continue Synthroid. 8. Anemia. Monitor H and H levels. 9. History of breast cancer with metastasis. Follow up with Oncology. 10. Diabetes. Continue current insulin regimen. 11. Pulmonary hypertension. 12. Anxiety, depression. 13. Mild hypernatremia. Continue to monitor. 14. Gastrointestinal and deep venous thrombosis prophylaxis. Continue proton pump inhibitor and heparin. 15. Nutrition. We will start the patient on tube feeding. Please note, I spent over 35 minutes of critical care time with this patient. Dictated By: Cameron Rosenthal DO /[email or web address] /Document#: [id number]
[2017-01-08] MEDS: predniSONE 1 MG TAB PO SCH (08:54)
[2017-01-08] MEDS: MAGNESIUM OXIDE 400 MG TAB PO SCH (08:54)
[2017-01-08] MEDS: TACROLIMUS 1 MG CAP PO SCH ×2 (08:54→21:32)
[2017-01-08] MEDS: BUMETANIDE 1 MG INJ IV SCH ×2 (08:54→20:41)
[2017-01-08] MEDS: LORATADINE 10 MG TAB PO SCH (08:54)
[2017-01-08] MEDS: DOCUSATE SODIUM 100 MG CAP PO SCH ×2 (08:54→20:41)
[2017-01-08] MEDS: BISACODYL 10 MG SUPP PR SCH (08:55)
[2017-01-08] MEDS: SERTRALINE 50 MG TAB PO SCH (08:55)
[2017-01-08] MEDS: ASCORBIC ACID 500 MG TAB PO SCH ×2 (08:55→20:43)
[2017-01-08] MEDS: INSULIN GLARGINE [LANtus] 3 ML PEN SC SCH (08:56)
[2017-01-08] MEDS: FLUTICASONE 0.05% 16 GM NAS SPRAY NASAL SCH (08:58)
[2017-01-08] MEDS: APIXABAN 5 MG TABLET PO SCH ×2 (09:00→20:41)
[2017-01-08] MEDS: predniSONE 5 MG TAB PO SCH (09:02)
--- NOTE | 2017-01-08 09:21 | CONS ---
Date/Time of Note Date/Time of Note DATE: 01/08/17 TIME: : Consult Date/Type/Reason Admit Date/Time Jan 05, 2017 at 00:15 Initial Consult Date 01/05/17 Type of Consultation: Pulmonary Ordering Provider: SUSAN SIMENTAL DO Subjective Respiratory distress overnight, failed noninvasive positive pressure ventilation. Required reintubation no back on mechanical ventilation with propofol drip. Objective Vital Signs Date Time Temp Pulse Resp B/P Pulse Ox O2 Delivery O2 Flow Rate FiO2 01/08/17 08:00 67 01/08/17 06:00 14 167/57 100 Mechanical Ventilator 01/08/17 05:00 90 01/08/17 04:00 98.0 01/07/17 10:45 4.0 Intake and Output 01/07/17 01/07/17 01/08/17 15:00 23:00 07:00 Intake Total 510 ml 200 ml 406.7 ml Output Total 65 ml 40 ml 35 ml Balance 445 ml 160 ml 371.7 ml Exam PHYSICAL EXAMINATION: GENERAL: On examination, chronically ill-appearing lady, comfortable at rest, no acute distress. VITAL SIGNS: HEENT: Orally intubated. Dry mucous membranes. Pupils equal and react to light. HEART: S1, S2. No added sounds or murmurs. CHEST: Diminished air entry bilaterally. ABDOMEN: Soft, nontender. No guarding or rebound. EXTREMITIES: No cyanosis, clubbing. 1+ edema. NEUROLOGIC: Generalized weakness. Results/Medications Result Diagram: 01/08/17 0455 01/08/17 0430 Results 24 hrs Laboratory Tests Test 01/07/17 11:25 01/07/17 14:37 01/07/17 17:25 01/07/17 18:31 Blood Gas Specimen Source Blood arterial Blood arterial Arterial Blood Date Drawn 01/07/2017 11:30:29 AM 01/07/2017 6:25:28 PM Arterial Blood pH (Temp corrected) 7.272 *L 7.327 L Arterial Blood pCO2 (Temp correct) 57.4 H 53.0 H Arterial Blood pO2 (Temp corrected) 54.6 *L 69.8 L Arterial Blood HCO3 25.9 27.1 H Arterial Blood Base Excess -1.6 0.7 Arterial Blood Oxygen Saturation 84.1 L 92.5 L Rey Test ACCEPTAB ACCEPTAB Arterial Blood Gas Puncture Site Right Radial Right Radial Arterial Blood Carboxyhemoglobin 0.3 0.3 Arterial Blood Methemoglobin 0.5 0.3 Blood Gas A-a O2 Differential 113.7 H 590.2 H Oxyhemoglobin Percent 83.4 L 91.9 L Total Hemoglobin 10.6 L 9.6 L Blood Gas Temperature 37.0 37.0 Blood Gas Modality NASAL CANNULA MASK - BIPAP FiO2 33.0 100.0 Blood Gas Critical Value Read Back Gilberto DESAI RN Blood Gas Notified Whom KEVIN AT Blood Gas Notified Time 01/07/2017 11:50:18 AM 01/07/2017 6:38:31 PM Bedside Glucose 165 123 Blood Gas Respiration Rate 15.0 Blood Gas Actual Respiration Rate 32 Blood Gas Pressure Support 7 Blood Gas IPAP/EPAP Ratio 03/31 Test 01/07/17 21:37 01/07/17 23:53 01/08/17 01:29 01/08/17 02:15 Bedside Glucose 117 100 Blood Gas Specimen Source Blood arterial Blood arterial Arterial Blood Date Drawn 01/08/2017 12:00:35 AM 01/08/2017 2:20:29 AM Arterial Blood pH (Temp corrected) 7.258 *L 7.343 L Arterial Blood pCO2 (Temp correct) 72.2 H 56.0 H Arterial Blood pO2 (Temp corrected) 56.3 L 78.2 L Arterial Blood HCO3 31.5 H 29.7 H Arterial Blood Base Excess 3.0 3.1 H Arterial Blood Oxygen Saturation 87.4 L 95.4 Rey Test ACCEPTAB ACCEPTAB Arterial Blood Gas Puncture Site Left Radial Left Radial Arterial Blood Carboxyhemoglobin 0.3 0.3 Arterial Blood Methemoglobin 0.3 0.3 Blood Gas A-a O2 Differential 584.5 H 578.8 H Oxyhemoglobin Percent 86.9 L 94.8 Total Hemoglobin 10.6 L 10.2 L Blood Gas Temperature 37.0 37.0 Blood Gas Respiration Rate 15.0 12.0 Blood Gas Actual Respiration Rate 27 15 Blood Gas Modality MASK - BIPAP VENT - AC FiO2 100.0 100.0 Blood Gas IPAP/EPAP Ratio 03/31 Blood Gas Critical Value Read Back JONH RN Blood Gas Notified Whom RICHARD camargop Blood Gas Notified Time 01/08/2017 12:11:36 AM 01/08/2017 2:27:27 AM Blood Gas Tidal Volume 450.0 Blood Gas Low PEEP Setting 5.0 Blood Gas Inspiratory Pressure 35.0 Test 01/08/17 04:30 01/08/17 04:31 01/08/17 04:55 01/08/17 09:09 Sodium Level 134 L Potassium Level 4.9 Chloride Level 96 L Carbon Dioxide Level 30 Anion Gap 13 Blood Urea Nitrogen 64 H Creatinine 2.61 H Glucose Level 85 Calcium Level 9.4 Phosphorus Level 4.9 Magnesium Level 2.5 Bedside Glucose 96 75 White Blood Count 11.2 H Red Blood Count 2.85 L Hemoglobin 8.3 L Hematocrit 27.1 L Mean Corpuscular Volume 95.1 Mean Corpuscular Hemoglobin 29.1 Mean Corpuscular Hemoglobin Concent 30.6 L Red Cell Distribution Width 15.8 H Platelet Count 261 Mean Platelet Volume 9.5 Neutrophils % 90.8 H Lymphocytes % 3.1 L Monocytes % 5.1 Eosinophils % 0.2 Basophils % 0.1 Nucleated Red Blood Cells % 0.0 Neutrophils # 10.2 H Lymphocytes # 0.4 L Monocytes # 0.6 Eosinophils # 0.0 Basophils # 0.0 Nucleated Red Blood Cells # 0.0 Medications Current Medications Propofol 100 ml @ 2.1 mls/hr Q12H IV Last administered on 01/08/17 08:52; Admin Dose 12.6 MLS/HR; Start 01/05/17 at 01:00 Cefepime HCl (Maxipime 2gm/50 ml (Pmx)) 50 ml @ 100 mls/hr DAILY IVPB Last administered on 01/07/17 09:25; Admin Dose 100 MLS/HR; Start 01/05/17 at 02:30 Naloxone HCl (Narcan) 0.4 mg Q4 PRN IV SEDATION; Start 01/05/17 at 01:30 Vancomycin HCl (Vanco Iv Per Pharmacy) PER PHARMACY DOSING NOTE XX ; Start 01/05 at 02:00 Acetaminophen (Tylenol Tab) 650 mg Q6H PRN PO PAIN AND OR ELEVATED TEMP; Start 01/05/17 at 10:30 Apixaban (Eliquis) 2.5 mg BID PO Last administered on 01/07/17 20:31; Admin Dose 2.5 MG; Start 01/05/17 at 10:30 Ascorbic Acid (Vitamin C) 500 mg BID PO Last administered on 01/08/17 08:55; Admin Dose 500 MG; Start 01/05/17 at 10:30 Bisacodyl (Dulcolax Supp) 10 mg DAILY AL Last administered on 01/08/17 08:55; Admin Dose 10 MG; Start 01/06/17 at 09:00 Budesonide (Pulmicort (Neb)) 0.25 mg BID NEB Last administered on 01/07/17 20: 06; Admin Dose 0.25 MG; Start 01/05/17 at 10:30 Docusate Sodium (Colace) 100 mg BID PO Last administered on 01/08/17 08:54; Admin Dose 100 MG; Start 01/05/17 at 10:30 Fluticasone Propionate (Flonase 0.05% Nasal) 1 spray DAILY NASAL Last administered on 01/07/17 09:25; Admin Dose 1 SPRAY; Start 01/05/17 at 11:00 Fulvestrant (Faslodex) 500 mg Q28D IM ; Start 01/05/17 at 10:30; Status UNV Insulin Glargine (Lantus) 18 unit DAILY SC Last administered on 01/08/17 08:56 ; Admin Dose 18 UNIT; Start 01/05/17 at 10:30 Loratadine (Claritin) 10 mg DAILY PO Last administered on 01/08/17 08:54; Admin Dose 10 MG; Start 01/05/17 at 11:00 Magnesium Hydroxide (Milk Of Mag) 30 ml BID PRN PO CONSTIPATION; Start at 10:30 Magnesium Oxide (Mag-Ox 400) 400 mg DAILY PO Last administered on 01/08/17 08: 54; Admin Dose 400 MG; Start 01/05/17 at 10:30 Metoprolol Tartrate (Lopressor) 25 mg Q8 PO Last administered on 01/08/17 06: 21; Admin Dose 25 MG; Start 01/05/17 at 14:00 Mirtazapine (Remeron) 15 mg HS PO Last administered on 01/07/17 20:30; Admin Dose 15 MG; Start 01/05/17 at 21:00 Nitroglycerin (Nitroglycerin 2% Oint) 0.5 inch Q6 PRN TD CHEST PAIN; Start 03/13 at 10:30 Ondansetron HCl (Zofran Inj) 4 mg Q6H PRN IV NAUSEA Last administered on 21:31; Admin Dose 4 MG; Start 01/05/17 at 10:30 Sertraline HCl (Zoloft) 75 mg DAILY PO Last administered on 01/08/17 08:55; Admin Dose 75 MG; Start 01/05/17 at 10:30 Sildenafil Citrate (Revatio) 20 mg TID PO Last administered on 01/07/17 14:00 ; Admin Dose 20 MG; Start 01/05/17 at 13:00 Tacrolimus (Prograf) 2 mg QPM PO Last administered on 01/07/17 20:30; Admin Dose 2 MG; Start 01/05/17 at 21:00 Pantoprazole (Protonix Tab) 40 mg DAILY@06 PO Last administered on 01/08/17 06 :21; Admin Dose 40 MG; Start 01/06/17 at 06:00 Senna (Senokot) 1 tab HS PO Last administered on 01/07/17 20:30; Admin Dose 1 TAB; Start 01/05/17 at 21:00 Prednisone (Prednisone) 5 mg DAILY PO Last administered on 01/08/17 09:02; Admin Dose 5 MG; Start 01/05/17 at 12:00 Prednisone (Prednisone) 3 mg DAILY PO Last administered on 01/08/17 08:54; Admin Dose 3 MG; Start 01/05/17 at 12:00 Miscellaneous Information 1 ea NOTE XX ; Start 01/05/17 at 11:00 Glucose (Glutose) 15 gm Q15M PRN PO DECREASED GLUCOSE; Start 01/05/17 at 11:00 Glucose (Glutose) 22.5 gm Q15M PRN PO DECREASED GLUCOSE; Start 01/05/17 at 11: 00 Dextrose (D50w Syringe) 25 ml Q15M PRN IV DECREASED GLUCOSE; Start 01/05/17 at 11:00 Dextrose (D50w Syringe) 50 ml Q15M PRN IV DECREASED GLUCOSE; Start 01/05/17 at 11:00 Glucagon (Glucagen) 1 mg Q15M PRN IM DECREASED GLUCOSE; Start 01/05/17 at 11:00 Glucose (Glutose) 15 gm Q15M PRN BUCCAL DECREASED GLUCOSE; Start 01/05/17 at 11 :00 Oxcarbazepine (Trileptal) 600 mg BID PO Last administered on 01/07/17 20:31; Admin Dose 600 MG; Start 01/05/17 at 12:00 Insulin Aspart NOVOLOG *MILD* ALGORI... Q4 SC Last administered on 01/07/17 14 :40; Admin Dose 1 UNIT; Start 01/05/17 at 13:00 Vancomycin HCl 1.25 gm/Sodium Chloride 250 ml @ 83.333 mls/ hr Q48H IVPB Last administered on 01/07/17 02:26; Admin Dose 83.333 MLS/HR; Start 01/07/17 at 03: 00 Fentanyl 100 ml @ 2.5 mls/hr TITRATE IV Last administered on 01/07/17 02:25; Admin Dose 7.5 MLS/HR; Start 01/06/17 at 09:30 Norepinephrine/ Dextrose (Levophed/D5W) 500 ml @ 0 mls/hr TITRATE IV ; Start 04/12 at 13:30 Bumetanide (Bumex) 1 mg BID IV Last administered on 01/08/17 08:54; Admin Dose 1 MG; Start 01/08/17 at 09:00 Miscellaneous Information (Pending Santyl Order For Wound Care) This patient boogie... PRN PRN XX WOUND CARE; Start 01/08/17 at 07:30 Assessment/Plan Chief Complaint/Hosp Course IMPRESSION: 1. Hypoxemic respiratory failure. Dense right lower lobe pneumonia versus effusion 2. Possible altered mental status secondary to opioids. Significant anxiety component. 3. History of renal transplant. Renal insufficiency. PLAN: 1. CT chest eval lung parenchyma and possible effusion. 2. Decrease sedation as tolerated. 3. Hold off further weaning until more stable. 4. Renal recommendations. 5. DVT and GI prophylaxis. Critical care time 40 minutes. Problems: LESA SAMUELS MD, [facility] Jan 08, 2017 09:21
[2017-01-08] MEDS: CEFEPIME 2GM/50 ML (PMX) 50 ML IVPB SCH (09:26)
[2017-01-08] MEDS: SILDENAFIL 20 MG TAB PO SCH ×3 (09:26→20:42)
[2017-01-08] MEDS: OXCARBAZEPINE 300 MG TAB PO SCH ×2 (09:27→20:43)
[2017-01-08] MEDS: BUDESONIDE (NEB) 0.25 MG/2 ML AMP NEB SCH ×2 (09:58→22:24)
[2017-01-08] MEDS ORDERED: COLLAGENASE 30 GM TUBE TOP PRN (10:30)
[2017-01-08] MEDS ORDERED: COLLAGENASE 30 GM TUBE TOP SCH (12:00)
[2017-01-08] MEDS: BALSAM PERU/CASTOR OIL 60 GM TUBE TOP SCH (13:38)
[2017-01-08] MEDS ORDERED: CASPOFUNGIN 70 MG in SOD CHLORIDE 0.9% 250 ML IVPB SCH (15:30)
--- NOTE | 2017-01-08 16:47 | PN ---
DATE: 01/08/2017 SUBJECTIVE DATA: The patient was re-intubated yesterday. She is lying comfortably on the vent, sedated, in no distress. No fevers. Temperature 98, pulse 72, respirations 12, blood pressure 132/53, saturation 100 percent on vent. LABORATORY AND DIAGNOSTIC DATA: WBC 11.2, H and H 8.3 and 27.1, platelets 261, neutrophils 90.8, BUN 64, creatinine 2.61. Urinalysis on January 05 was positive for trace leukocyte esterase. Urine culture was negative. Nares swab negative. Endotracheal aspirate growing yeast, not Mellissa albicans. INDWELLINGS: Endotracheal tube, NG tube, right femoral triple lumen catheter, Dela Cruz catheter. ANTIMICROBIALS: The patient is on IV vancomycin and cefepime. DIAGNOSTICS: Chest x-ray this morning revealed congestive heart failure with pulmonary edema, moderately large right pleural effusion, increased compared to previous study. PHYSICAL EXAMINATION: GENERAL: This is a chronically ill-appearing, fragile, elderly woman, who is intubated, sedated, in no distress. HEENT: Head atraumatic and normocephalic. Sclerae are anicteric. Buccal mucosa is dry. NECK: Supple. CHEST: Rise symmetrical. Breath sounds diminished at the bases. HEART: S1, S2. ABDOMEN: Soft. Bowel sounds are present. EXTREMITIES: Without cyanosis. ASSESSMENT: 1. Acute respiratory failure secondary to pulmonary edema, possible aspiration event, re-intubated yesterday post extubation. 2. Resolving sepsis. 3. Oral thrush with a sputum culture growing yeast, not Mellissa albicans. 4. History of kidney transplant. The patient remains on Prograf and prednisone. 5. Acute on chronic kidney disease. 6. Paroxysmal atrial fibrillation. 7. Anemia. 8. History of breast cancer with metastasis. 9. Diabetes. PLAN: The patient remains clinically and hemodynamically stable. We are going to start her on to cover yeast that grows from her sputum. Continue vancomycin and cefepime. Continue management as per primary team and consultants. Dictated By: Artis Castañeda NP /[email or web address]/[email or web address] /Document#: [id number]
[2017-01-08] MEDS: DEXTROSE 50% 50 ML SYRINGE IV PRN (17:17)
[2017-01-08] MEDS: DEXTROSE 5% 1,000 ML IV SCH (19:01)
[2017-01-08] MEDS: MIRTAZAPINE 15 MG TAB PO SCH (20:42)
[2017-01-08] MEDS: SENNA TAB PO SCH (20:42)
--- NOTE | 2017-01-08 22:15 | CONS ---
Date/Time of Note Date/Time of Note DATE: 01/08/17 TIME: 22:12 Assessment/Plan Assessment/Plan Chief Complaint/Hosp Course History of breast cancer with lung metastasis. The patient is on medical management. cont Faslodex as outpt Anemia. Monitor hemoglobin and hematocrit levels. 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 Congestive heart failure exacerbation. Hypothyroidism. Diabetes. Continue current insulin regimen. Pulmonary hypertension. Depression. Problems: Consultation Date/Type/Reason Admit Date/Time Jan 05, 2017 at 00:15 Initial Consult Date 01/05/17 Type of Consultation: [facility] Referring Provider: SUSAN SIMENTAL DO 24 HR Interval Summary Free Text/Dictation ALL NOTED pt was extubated on 01/07/17 but had to be re-intubated again due to resp distress even on BIPAP. H/H- SLOWLY GOING DOWN, NO ACTIVE BLEEDING Exam/Review of Systems Vital Signs Vitals Vital Signs Date Time Temp Pulse Resp B/P Pulse Ox O2 Delivery O2 Flow Rate FiO2 01/08/17 21:00 69 12 142/56 100 01/08/17 20:30 Mechanical Ventilator 01/08/17 20:00 70 01/08/17 19:00 98.1 01/07/17 10:45 4.0 Intake and Output 01/07/17 01/07/17 01/08/17 15:00 23:00 07:00 Intake Total 510 ml 200 ml 419.3 ml Output Total 65 ml 40 ml 65 ml Balance 445 ml 160 ml 354.3 ml Exam HEENT: Head is normocephalic. NECK: Supple. HEART: Regular rate. LUNGS: Show diminished breath sounds at the base. ABDOMEN: Soft, nontender to palpation. No rebound or guarding. EXTREMITIES: Negative for clubbing, cyanosis. No edema. DERMATOLOGIC: Clean. No rashes. MUSCULOSKELETAL: No joint effusion. NEUROLOGIC: No change in exam. + SCROTAL EDEMA NO NEW PETECHIA OR HEMATOMA Results Result Diagram: 01/08/17 0455 01/08/17 0430 Results 24 hrs Laboratory Tests Test 01/07/17 23:53 01/08/17 01:29 01/08/17 02:15 01/08/17 04:30 Blood Gas Specimen Source Blood arterial Blood arterial Arterial Blood Date Drawn 01/08/2017 12:00:35 AM 01/08/2017 2:20:29 AM Arterial Blood pH (Temp corrected) 7.258 *L 7.343 L Arterial Blood pCO2 (Temp correct) 72.2 H 56.0 H Arterial Blood pO2 (Temp corrected) 56.3 L 78.2 L Arterial Blood HCO3 31.5 H 29.7 H Arterial Blood Base Excess 3.0 3.1 H Arterial Blood Oxygen Saturation 87.4 L 95.4 Rey Test ACCEPTAB ACCEPTAB Arterial Blood Gas Puncture Site Left Radial Left Radial Arterial Blood Carboxyhemoglobin 0.3 0.3 Arterial Blood Methemoglobin 0.3 0.3 Blood Gas A-a O2 Differential 584.5 H 578.8 H Oxyhemoglobin Percent 86.9 L 94.8 Total Hemoglobin 10.6 L 10.2 L Blood Gas Temperature 37.0 37.0 Blood Gas Respiration Rate 15.0 12.0 Blood Gas Actual Respiration Rate 27 15 Blood Gas Modality MASK - BIPAP VENT - AC FiO2 100.0 100.0 Blood Gas IPAP/EPAP Ratio 12 Blood Gas Critical Value Read Back JONH RN Blood Gas Notified Whom RICHARD walters professor of biblical studies Blood Gas Notified Time 01/08/2017 12:11:36 AM 01/08/2017 2:27:27 AM Bedside Glucose 100 Blood Gas Tidal Volume 450.0 Blood Gas Low PEEP Setting 5.0 Blood Gas Inspiratory Pressure 35.0 Sodium Level 134 L Potassium Level 4.9 Chloride Level 96 L Carbon Dioxide Level 30 Anion Gap 13 Blood Urea Nitrogen 64 H Creatinine 2.61 H Glucose Level 85 Calcium Level 9.4 Phosphorus Level 4.9 Magnesium Level 2.5 Test 01/08/17 04:31 01/08/17 04:55 01/08/17 09:09 01/08/17 13:37 Bedside Glucose 96 75 71 White Blood Count 11.2 H Red Blood Count 2.85 L Hemoglobin 8.3 L Hematocrit 27.1 L Mean Corpuscular Volume 95.1 Mean Corpuscular Hemoglobin 29.1 Mean Corpuscular Hemoglobin Concent 30.6 L Red Cell Distribution Width 15.8 H Platelet Count 261 Mean Platelet Volume 9.5 Neutrophils % 90.8 H Lymphocytes % 3.1 L Monocytes % 5.1 Eosinophils % 0.2 Basophils % 0.1 Nucleated Red Blood Cells % 0.0 Neutrophils # 10.2 H Lymphocytes # 0.4 L Monocytes # 0.6 Eosinophils # 0.0 Basophils # 0.0 Nucleated Red Blood Cells # 0.0 Test 01/08/17 17:11 01/08/17 17:47 01/08/17 18:10 01/08/17 21:26 Bedside Glucose 59 L 107 107 64 L Medications Medications Current Medications Cefepime HCl (Maxipime 2gm/50 ml (Pmx)) 50 ml @ 100 mls/hr DAILY IVPB Last administered on 01/08/17 09:26; Admin Dose 100 MLS/HR; Start 01/05/17 at 02:30 Naloxone HCl (Narcan) 0.4 mg Q4 PRN IV SEDATION; Start 01/05/17 at 01:30 Vancomycin HCl (Vanco Iv Per Pharmacy) PER PHARMACY DOSING NOTE XX ; Start 01/05 at 02:00 Acetaminophen (Tylenol Tab) 650 mg Q6H PRN PO PAIN AND OR ELEVATED TEMP; Start 01/05/17 at 10:30 Apixaban (Eliquis) 2.5 mg BID PO Last administered on 01/08/17 20:41; Admin Dose 2.5 MG; Start 01/05/17 at 10:30 Ascorbic Acid (Vitamin C) 500 mg BID PO Last administered on 01/08/17 20:43; Admin Dose 500 MG; Start 01/05/17 at 10:30 Bisacodyl (Dulcolax Supp) 10 mg DAILY ME Last administered on 01/08/17 08:55; Admin Dose 10 MG; Start 01/06/17 at 09:00 Budesonide (Pulmicort (Neb)) 0.25 mg BID NEB Last administered on 01/08/17 09: 58; Admin Dose 0.25 MG; Start 01/05/17 at 10:30 Docusate Sodium (Colace) 100 mg BID PO Last administered on 01/08/17 20:41; Admin Dose 100 MG; Start 01/05/17 at 10:30 Fluticasone Propionate (Flonase 0.05% Nasal) 1 spray DAILY NASAL Last administered on 01/07/17 09:25; Admin Dose 1 SPRAY; Start 01/05/17 at 11:00 Fulvestrant (Faslodex) 500 mg Q28D IM ; Start 01/05/17 at 10:30; Status UNV Insulin Glargine (Lantus) 18 unit DAILY SC Last administered on 01/08/17 08:56 ; Admin Dose 18 UNIT; Start 01/05/17 at 10:30 Loratadine (Claritin) 10 mg DAILY PO Last administered on 01/08/17 08:54; Admin Dose 10 MG; Start 01/05/17 at 11:00 Magnesium Hydroxide (Milk Of Mag) 30 ml BID PRN PO CONSTIPATION; Start at 10:30 Magnesium Oxide (Mag-Ox 400) 400 mg DAILY PO Last administered on 01/08/17 08: 54; Admin Dose 400 MG; Start 01/05/17 at 10:30 Metoprolol Tartrate (Lopressor) 25 mg Q8 PO Last administered on 01/08/17 13: 39; Admin Dose 25 MG; Start 01/05/17 at 14:00 Mirtazapine (Remeron) 15 mg HS PO Last administered on 01/08/17 20:42; Admin Dose 15 MG; Start 01/05/17 at 21:00 Nitroglycerin (Nitroglycerin 2% Oint) 0.5 inch Q6 PRN TD CHEST PAIN; Start 03/13 at 10:30 Ondansetron HCl (Zofran Inj) 4 mg Q6H PRN IV NAUSEA Last administered on 21:31; Admin Dose 4 MG; Start 01/05/17 at 10:30 Sertraline HCl (Zoloft) 75 mg DAILY PO Last administered on 01/08/17 08:55; Admin Dose 75 MG; Start 01/05/17 at 10:30 Sildenafil Citrate (Revatio) 20 mg TID PO Last administered on 01/08/17 20:42 ; Admin Dose 20 MG; Start 01/05/17 at 13:00 Tacrolimus (Prograf) 2 mg QPM PO Last administered on 01/08/17 21:32; Admin Dose 2 MG; Start 01/05/17 at 21:00 Pantoprazole (Protonix Tab) 40 mg DAILY@06 PO Last administered on 01/08/17 06 :21; Admin Dose 40 MG; Start 01/06/17 at 06:00 Senna (Senokot) 1 tab HS PO Last administered on 01/08/17 20:42; Admin Dose 1 TAB; Start 01/05/17 at 21:00 Prednisone (Prednisone) 5 mg DAILY PO Last administered on 01/08/17 09:02; Admin Dose 5 MG; Start 01/05/17 at 12:00 Prednisone (Prednisone) 3 mg DAILY PO Last administered on 01/08/17 08:54; Admin Dose 3 MG; Start 01/05/17 at 12:00 Miscellaneous Information 1 ea NOTE XX ; Start 01/05/17 at 11:00 Glucose (Glutose) 15 gm Q15M PRN PO DECREASED GLUCOSE; Start 01/05/17 at 11:00 Glucose (Glutose) 22.5 gm Q15M PRN PO DECREASED GLUCOSE; Start 01/05/17 at 11: 00 Dextrose (D50w Syringe) 25 ml Q15M PRN IV DECREASED GLUCOSE Last administered on 01/08/17 17:17; Admin Dose 25 ML; Start 01/05/17 at 11:00 Dextrose (D50w Syringe) 50 ml Q15M PRN IV DECREASED GLUCOSE Last administered on 01/08/17 21:33; Admin Dose 50 ML; Start 01/05/17 at 11:00 Glucagon (Glucagen) 1 mg Q15M PRN IM DECREASED GLUCOSE; Start 01/05/17 at 11:00 Glucose (Glutose) 15 gm Q15M PRN BUCCAL DECREASED GLUCOSE; Start 01/05/17 at 11 :00 Oxcarbazepine (Trileptal) 600 mg BID PO Last administered on 01/08/17 20:43; Admin Dose 600 MG; Start 01/05/17 at 12:00 Insulin Aspart NOVOLOG *MILD* ALGORI... Q4 SC Last administered on 01/07/17 14 :40; Admin Dose 1 UNIT; Start 01/05/17 at 13:00 Vancomycin HCl 1.25 gm/Sodium Chloride 250 ml @ 83.333 mls/ hr Q48H IVPB Last administered on 01/07/17 02:26; Admin Dose 83.333 MLS/HR; Start 01/07/17 at 03: 00 Fentanyl 100 ml @ 2.5 mls/hr TITRATE IV Last administered on 01/07/17 02:25; Admin Dose 7.5 MLS/HR; Start 01/06/17 at 09:30 Norepinephrine/ Dextrose (Levophed/D5W) 500 ml @ 0 mls/hr TITRATE IV ; Start 04/12 at 13:30 Bumetanide (Bumex) 1 mg BID IV Last administered on 01/08/17 20:41; Admin Dose 1 MG; Start 01/08/17 at 09:00 Miscellaneous Information VANCO TROUGH @ 0,200 ON... ONCE ONCE XX ; Start at 02:00; Stop 01/09/17 at 02:01 Caspofungin 50 mg/ Sodium Chloride 250 ml @ 250 mls/hr Q24H IVPB ; Start at 15:00 Propofol 100 ml @ 2.19 mls/hr Q12H IV Last administered on 01/08/17 15:36; Admin Dose 13.14 MLS/HR; Start 01/08/17 at 16:00 Dextrose (D5W) 1,000 ml @ 40 mls/hr Q24H IV Last administered on 01/08/17 19: 01; Admin Dose 40 MLS/HR; Start 01/08/17 at 18:00 SHANICE DAVENPORT MD Jan 08, 2017 22:15
[2017-01-09] VITALS (77 sets, daily range): BP systolic 85–187; BP diastolic 35–76; PULSE 66–91; RESP 12–21
[2017-01-09] MEDS: INSULIN ASPART [NOVOLOG] 3 ML PEN SC SCH ×6 (01:00→21:01)
[2017-01-09] MEDS: IPRATROPIUM (HFA) 12.9 GM INHALER INH SCH ×4 (02:12→19:12)
[2017-01-09] MEDS: ALBUTEROL 18 GM INHALER INH SCH ×4 (02:12→19:12)
[2017-01-09] MEDS: DEXTROSE 50% 50 ML SYRINGE IV PRN (04:45)
[2017-01-09] MEDS: PANTOPRAZOLE (EC) 40 MG TAB PO SCH (05:20)
[2017-01-09] MEDS: METOPROLOL 25 MG TAB PO SCH ×3 (05:23→22:01)
[2017-01-09] MEDS ORDERED: VANCOMYCIN 1 GM in NS 250 ML IVPB SCH (06:00)
[2017-01-09] MEDS: LEVOTHYROXINE 75 MCG TAB PO SCH (06:22)
[2017-01-09] MEDS: PROPOFOL 100 ML IV SCH ×2 (06:22→17:12)
[2017-01-09 06:48] LABS: ABNORMAL IP MESSAGE 1; BASOPHILS % 0.1 % (0.0-2.0); EOSINOPHILS # 0.2 10^3/ul (0.0-0.5); EOSINOPHILS % 2.9 % (0.0-7.0); HEMATOCRIT 25.7 % (37.0-47.0); HEMOGLOBIN 7.9 g/dl (12.0-16.0); LYMPHOCYTES # 0.6 10^3/ul (0.8-2.9); LYMPHOCYTES % 6.8 % (15.0-51.0); MEAN CORPUSCULAR HEMOGLOBIN 29.3 pg (29.0-33.0); MEAN CORPUSCULAR HGB CONC 30.7 g/dl (32.0-37.0); MEAN CORPUSCULAR VOLUME 95.2 fl (82.0-101.0); MONOCYTE # 0.6 10^3/ul (0.3-0.9); MONOCYTES % 6.6 % (0.0-11.0); NEUTROPHIL # 6.9 10^3/ul (1.6-7.5); NEUTROPHILS % 82.8 % (39.0-77.0); PLATELET COUNT 235 10^3/UL (140-415); RED CELL DISTRIBUTION WIDTH 15.7 % (11.5-14.5); WHITE BLOOD COUNT 8.4 10^3/ul (4.8-10.8)
[2017-01-09 06:58] LABS: POSITIVE DIFF @See below
[2017-01-09 07:19] LABS: CALCIUM 9.1 mg/dl (8.4-10.2); CREATININE 2.53 mg/dl (0.44-1.00); MAGNESIUM 2.3 mg/dl (1.7-2.5); PHOSPHORUS 4.1 mg/dl (2.5-4.9); POTASSIUM 4.1 mmol/L (3.5-5.1)
--- NOTE | 2017-01-09 07:51 | PN ---
DATE: 01/09/2017 SUBJECTIVE DATA: The patient remains currently on ventilatory support. No other events noted. No hemoptysis, hematemesis, hematochezia. The patient's urinary output has been marginal. OBJECTIVE DATA: VITAL SIGNS: Blood pressure is 111/46, respirations 13, pulse 71, temperature 98.0. Is and Os, the patient had 1 L in with 945 mL out. Urinary output is 745. HEENT: Head is normocephalic. NECK: Supple. HEART: Regular rate. LUNGS: Showed diminished breath sounds at the base. ABDOMEN: Soft. Nontender to palpation. No rebound or guarding. EXTREMITIES: Negative for clubbing, cyanosis. No edema. DERMATOLOGIC: No rashes. MUSCULOSKELETAL: No joint effusion. NEUROLOGIC: No change in exam. MEDICATIONS: Reviewed. LABORATORY AND DIAGNOSTIC DATA: Shows sodium of 131, potassium 4.1, chloride 94, BUN 67, creatinine 2.54. White count 8.4, hemoglobin 7.9, hematocrit 25.7, platelet count is 235,000. Cultures have been reviewed. Sputum culture positive for yeast, not Mellissa. ASSESSMENT AND PLAN: 1. Ventilatory-dependent respiratory failure. The patient was reintubated. ABG and chest x-ray was reviewed. Continue to monitor. Follow up with Pulmonary. 2. Acute congestive heart failure exacerbation. Continue diuretic regimen. Follow up Cardiology with recommendations. 3. Sepsis status post shock. The patient is currently off pressors. Continue current antibiotic regimen. 4. Paroxysmal atrial fibrillation. Currently sinus rhythm. 5. Nonoliguric acute kidney injury on top of chronic allograft failure with previous baseline creatinine of 1.5 to 1.7 mg/dL. Etiology of current acute kidney injury secondary to acute tubular necrosis due to code arrest. The patient's renal function has stabilized in the last 24 hours. Urinary output has improved. We will continue current treatment plan. We will follow up Prograf level. 6. History of end-stage renal disease, status post renal transplant with chronic allograft failure. The patient is currently in acute kidney injury as stated above. Continue current immunosuppressive regimen. Continue Prograf and prednisone. Follow up with Prograf level. 7. Hypothyroidism. Continue Synthroid. 8. Anemia. Monitor H and H levels. 9. History of breast cancer. Follow up with Oncology. 10. Diabetes. Continue current insulin regimen. 11. Pulmonary hypertension. 12. Anxiety and depression. 13. Mild hyponatremia. Continue to monitor closely. 14. Gastrointestinal and deep venous thrombosis prophylaxis. 15. Nutrition. Patient will be initiated on tube feeding. Please note, I spent over 35 minutes of critical care time with this patient. Dictated By: Cameron Rosenthal DO /[email or web address]/johnson /Document#: [id number]
--- NOTE | 2017-01-09 07:53 | CONS ---
Date/Time of Note Date/Time of Note DATE: 01/09/17 TIME: 07:51 Consult Date/Type/Reason Admit Date/Time Jan 05, 2017 at 00:15 Initial Consult Date 01/05/17 Type of Consultation: CARDIOLOGY Ordering Provider: SUSAN SIMENTAL DO Subjective CARDIOLOGY FOLLOW UP NOTE: D/W Staff and rhythm was reviewed. pt remains in NSR. no more Afib. pt remains intubated on vent NOW. pt was extubated on 01/07/17 but had to be re- intubated again the same night due to resp distress even on BIPAP. NO reports of any chest pain or pressure OBJECTIVE: General: intubated on vent. HEENT: NC/AT. pupils are equal. round. NECK: NO JVD. no stridor. CV: RRR. systolic murmur; no gallop or rubs. PULM: no wheezing, + mild rhonchi. GI: SOFT, NT, ND, no rebound or guarding Extremity: trace B/L LE edema. no clubbing. neuro: sedated. . Psych: unable to assess rectal: deferred : normal ECHO 12/16/16: Personally reviewed 1. Normal left ventricular systolic function. Normal left ventricular cavity size. Moderate concentric left ventricular hypertrophy. Ejection fraction is visually estimated at 65 %. Abnormal Diastolic Function. 2. There is moderate enlargement of left atrium. 3. Mild mitral leaflet calcification. Mild mitral annular calcification. Trace mitral regurgitation. 4. Aortic sclerosis without stenosis. Trace aortic valve regurgitation. 5. Normal appearance of the tricuspid valve. Estimated peak PA systolic pressure 38 mmHg. There is mild tricuspid regurgitation. Objective Vital Signs Date Time Temp Pulse Resp B/P Pulse Ox O2 Delivery O2 Flow Rate FiO2 01/09/17 07:40 60 12 100 55 01/09/17 06:00 111/46 Mechanical Ventilator 01/09/17 04:00 98.8 01/07/17 10:45 4.0 Intake and Output 01/08/17 01/08/17 01/09/17 15:00 23:00 07:00 Intake Total 241.88 ml 488.84 ml 386.32 ml Output Total 210 ml 205 ml 500 ml Balance 31.88 ml 283.84 ml -113.68 ml Results/Medications Result Diagram: 01/09/17 0500 01/09/17 0500 Results 24 hrs Laboratory Tests Test 01/08/17 09:09 01/08/17 13:37 01/08/17 17:11 01/08/17 17:47 Bedside Glucose 75 71 59 L 107 Test 01/08/17 18:10 01/08/17 21:26 01/08/17 21:52 01/08/17 22:28 Bedside Glucose 107 64 L 170 117 Test 01/09/17 00:44 01/09/17 01:00 01/09/17 04:39 01/09/17 05:00 Bedside Glucose 83 62 L Vancomycin Level Trough 19.9 White Blood Count 8.4 # Red Blood Count 2.70 L Hemoglobin 7.9 L Hematocrit 25.7 L Mean Corpuscular Volume 95.2 Mean Corpuscular Hemoglobin 29.3 Mean Corpuscular Hemoglobin Concent 30.7 L Red Cell Distribution Width 15.7 H Platelet Count 235 Mean Platelet Volume 10.0 Neutrophils % 82.8 H Lymphocytes % 6.8 L Monocytes % 6.6 Eosinophils % 2.9 Basophils % 0.1 Nucleated Red Blood Cells % 0.0 Neutrophils # 6.9 Lymphocytes # 0.6 L Monocytes # 0.6 Eosinophils # 0.2 Basophils # 0.0 Nucleated Red Blood Cells # 0.0 Sodium Level 131 L Potassium Level 4.1 Chloride Level 94 L Carbon Dioxide Level 30 Anion Gap 11 Blood Urea Nitrogen 67 H Creatinine 2.53 H Glucose Level 186 # Calcium Level 9.1 Phosphorus Level 4.1 Magnesium Level 2.3 Test 01/09/17 05:18 Bedside Glucose 130 Medications Current Medications Cefepime HCl (Maxipime 2gm/50 ml (Pmx)) 50 ml @ 100 mls/hr DAILY IVPB Last administered on 01/08/17 09:26; Admin Dose 100 MLS/HR; Start 01/05/17 at 02:30 Naloxone HCl (Narcan) 0.4 mg Q4 PRN IV SEDATION; Start 01/05/17 at 01:30 Vancomycin HCl (Vanco Iv Per Pharmacy) PER PHARMACY DOSING NOTE XX ; Start 01/05 at 02:00 Acetaminophen (Tylenol Tab) 650 mg Q6H PRN PO PAIN AND OR ELEVATED TEMP; Start 01/05/17 at 10:30 Apixaban (Eliquis) 2.5 mg BID PO Last administered on 01/08/17 20:41; Admin Dose 2.5 MG; Start 01/05/17 at 10:30 Ascorbic Acid (Vitamin C) 500 mg BID PO Last administered on 01/08/17 20:43; Admin Dose 500 MG; Start 01/05/17 at 10:30 Bisacodyl (Dulcolax Supp) 10 mg DAILY NH Last administered on 01/08/17 08:55; Admin Dose 10 MG; Start 01/06/17 at 09:00 Budesonide (Pulmicort (Neb)) 0.25 mg BID NEB Last administered on 01/08/17 22: 24; Admin Dose 0.25 MG; Start 01/05/17 at 10:30 Docusate Sodium (Colace) 100 mg BID PO Last administered on 01/08/17 20:41; Admin Dose 100 MG; Start 01/05/17 at 10:30 Fluticasone Propionate (Flonase 0.05% Nasal) 1 spray DAILY NASAL Last administered on 01/07/17 09:25; Admin Dose 1 SPRAY; Start 01/05/17 at 11:00 Fulvestrant (Faslodex) 500 mg Q28D IM ; Start 01/05/17 at 10:30; Status UNV Insulin Glargine (Lantus) 18 unit DAILY SC Last administered on 01/08/17 08:56 ; Admin Dose 18 UNIT; Start 01/05/17 at 10:30 Loratadine (Claritin) 10 mg DAILY PO Last administered on 01/08/17 08:54; Admin Dose 10 MG; Start 01/05/17 at 11:00 Magnesium Hydroxide (Milk Of Mag) 30 ml BID PRN PO CONSTIPATION; Start at 10:30 Magnesium Oxide (Mag-Ox 400) 400 mg DAILY PO Last administered on 01/08/17 08: 54; Admin Dose 400 MG; Start 01/05/17 at 10:30 Metoprolol Tartrate (Lopressor) 25 mg Q8 PO Last administered on 01/09/17 05: 23; Admin Dose 25 MG; Start 01/05/17 at 14:00 Mirtazapine (Remeron) 15 mg HS PO Last administered on 01/08/17 20:42; Admin Dose 15 MG; Start 01/05/17 at 21:00 Nitroglycerin (Nitroglycerin 2% Oint) 0.5 inch Q6 PRN TD CHEST PAIN; Start 03/13 at 10:30 Ondansetron HCl (Zofran Inj) 4 mg Q6H PRN IV NAUSEA Last administered on 21:31; Admin Dose 4 MG; Start 01/05/17 at 10:30 Sertraline HCl (Zoloft) 75 mg DAILY PO Last administered on 01/08/17 08:55; Admin Dose 75 MG; Start 01/05/17 at 10:30 Sildenafil Citrate (Revatio) 20 mg TID PO Last administered on 01/08/17 20:42 ; Admin Dose 20 MG; Start 01/05/17 at 13:00 Tacrolimus (Prograf) 2 mg QPM PO Last administered on 01/08/17 21:32; Admin Dose 2 MG; Start 01/05/17 at 21:00 Pantoprazole (Protonix Tab) 40 mg DAILY@06 PO Last administered on 01/09/17 05 :20; Admin Dose 40 MG; Start 01/06/17 at 06:00 Senna (Senokot) 1 tab HS PO Last administered on 01/08/17 20:42; Admin Dose 1 TAB; Start 01/05/17 at 21:00 Prednisone (Prednisone) 5 mg DAILY PO Last administered on 01/08/17 09:02; Admin Dose 5 MG; Start 01/05/17 at 12:00 Prednisone (Prednisone) 3 mg DAILY PO Last administered on 01/08/17 08:54; Admin Dose 3 MG; Start 01/05/17 at 12:00 Miscellaneous Information 1 ea NOTE XX ; Start 01/05/17 at 11:00 Glucose (Glutose) 15 gm Q15M PRN PO DECREASED GLUCOSE; Start 01/05/17 at 11:00 Glucose (Glutose) 22.5 gm Q15M PRN PO DECREASED GLUCOSE; Start 01/05/17 at 11: 00 Dextrose (D50w Syringe) 25 ml Q15M PRN IV DECREASED GLUCOSE Last administered on 01/09/17 04:45; Admin Dose 25 ML; Start 01/05/17 at 11:00 Dextrose (D50w Syringe) 50 ml Q15M PRN IV DECREASED GLUCOSE Last administered on 01/08/17 21:33; Admin Dose 50 ML; Start 01/05/17 at 11:00 Glucagon (Glucagen) 1 mg Q15M PRN IM DECREASED GLUCOSE; Start 01/05/17 at 11:00 Glucose (Glutose) 15 gm Q15M PRN BUCCAL DECREASED GLUCOSE; Start 01/05/17 at 11 :00 Oxcarbazepine (Trileptal) 600 mg BID PO Last administered on 01/08/17 20:43; Admin Dose 600 MG; Start 01/05/17 at 12:00 Insulin Aspart NOVOLOG *MILD* ALGORI... Q4 SC Last administered on 01/07/17 14 :40; Admin Dose 1 UNIT; Start 01/05/17 at 13:00 Fentanyl 100 ml @ 2.5 mls/hr TITRATE IV Last administered on 01/07/17 02:25; Admin Dose 7.5 MLS/HR; Start 01/06/17 at 09:30 Norepinephrine/ Dextrose (Levophed/D5W) 500 ml @ 0 mls/hr TITRATE IV ; Start 04/12 at 13:30 Bumetanide 1 mg 1 mg BID IV Last administered on 01/08/17 20:41; Admin Dose 1 MG; Start 01/08/17 at 09:00 Caspofungin 50 mg/ Sodium Chloride 250 ml @ 250 mls/hr Q24H IVPB ; Start at 15:00 Propofol 100 ml @ 2.19 mls/hr Q12H IV Last administered on 01/09/17 06:22; Admin Dose 10.95 MLS/HR; Start 01/08/17 at 16:00 Dextrose 1,000 ml @ 40 mls/hr Q24H IV Last administered on 01/08/17 19:01; Admin Dose 40 MLS/HR; Start 01/08/17 at 18:00 Vancomycin HCl (Vancocin) 250 ml @ 125 mls/hr Q48H IVPB Last administered on 05:19; Admin Dose 125 MLS/HR; Start 01/09/17 at 06:00 Miscellaneous Information (*Order Clarification Bulletin) FULVESTRANT 250 MG/5 ML SYG: PLE... Q8H XX ; Start 01/09/17 at 08:00 Assessment/Plan Chief Complaint/Hosp Course Assessment: 1. s/p cardiopulmonary arrest: Most likely due to pulmonary arrest 2. P afib: currently in NSR 3. History of renal failure status post renal transplant: now with KATI on CKD 4. Acute on chronic hypoxemic hypercapnic respiratory failure status post reintubation: currently on the vent 5. Shock: resolved now. currently hypertensive, but controlled. 6. ANEMIA 7. breast cancer 8. history of HTN: 9. anxiety 10. DM 11. Hypothyroidism: on synthroid. 12. pleural effusion Recommendations: cont eliquis as long as no signs of active bleeding and no surgery/ procedure is planned. man need to hold it if need to do thoracentesis. vent support for now anti- rejection medications to be adjusted as per renal team cont DM control thyroid supplement cont betablocker . correct lytes prn cont tele monitoring cont ICU care. CONSIDER THORACENTESIS. will defer to pulm rec. Thank you for this referral I will continue to follow along with you. AUGUSTINA MALDONADO MD [facility] Problems: AUGUSTINA MALDONADO MD Jan 09, 2017 07:53
[2017-01-09] MEDS: [UNRECOGNIZED DRUG - REMARK] XX SCH ×3 (08:00→23:41)
[2017-01-09] MEDS: TACROLIMUS 1 MG CAP PO SCH ×2 (08:48→20:52)
[2017-01-09] MEDS: LORATADINE 10 MG TAB PO SCH (08:49)
[2017-01-09] MEDS: OXCARBAZEPINE 300 MG TAB PO SCH ×2 (08:49→20:53)
[2017-01-09] MEDS: DOCUSATE SODIUM 100 MG CAP PO SCH ×2 (08:50→20:51)
[2017-01-09] MEDS: SERTRALINE 50 MG TAB PO SCH (08:51)
[2017-01-09] MEDS: SILDENAFIL 20 MG TAB PO SCH ×3 (08:52→22:01)
[2017-01-09] MEDS: BISACODYL 10 MG SUPP PR SCH (08:52)
[2017-01-09] MEDS: predniSONE 1 MG TAB PO SCH (08:53)
[2017-01-09] MEDS: ASCORBIC ACID 500 MG TAB PO SCH ×2 (08:53→20:53)
[2017-01-09] MEDS: MAGNESIUM OXIDE 400 MG TAB PO SCH (08:55)
[2017-01-09] MEDS: predniSONE 5 MG TAB PO SCH (08:55)
[2017-01-09] MEDS: APIXABAN 5 MG TABLET PO SCH ×2 (08:55→20:52)
[2017-01-09] MEDS: INSULIN GLARGINE [LANtus] 3 ML PEN SC SCH (08:57)
[2017-01-09] MEDS: CEFEPIME 2GM/50 ML (PMX) 50 ML IVPB SCH (08:58)
[2017-01-09] MEDS: BUMETANIDE 1 MG INJ IV SCH ×2 (08:58→20:51)
[2017-01-09] MEDS: FLUTICASONE 0.05% 16 GM NAS SPRAY NASAL SCH (09:00)
--- NOTE | 2017-01-09 09:02 | CONS ---
Date/Time of Note Date/Time of Note DATE: 01/09/17 TIME: 08:57 Assessment/Plan Assessment/Plan Additional Assessment/Plan Ventilator setting; AC of 12, tidal volume 450, PEEP of 5, 55% FiO2. Chest x-ray was reviewed which is showing moderate right pleural effusion. Patient currently on propofol at 25 mics per kilogram per minute. Assessment and recommendations; 1. Patient admitted with respiratory failure from pneumonia possibly superimposed CHF. 2. Failed extubation trial, requiring reintubation. 3. Chronic immunosuppression on account of renal transplant. 4. Pulmonary hypertension. 5. Hypothyroidism. 6. History of hypertension. 7. Diabetes. Schedule ultrasound-guided thoracentesis on the right side. Current supportive care. 35 minutes of critical care time was spent evaluating the patient. Consultation Date/Type/Reason Admit Date/Time Jan 05, 2017 at 00:15 Initial Consult Date 01/05/17 Type of Consultation: Pulmonary/critical care Referring Provider: SUSAN SIMENTAL DO 24 HR Interval Summary Free Text/Dictation Patient condition remains critical. Patient however has remained hemodynamically stable. General exam; elderly woman, orally intubated, sedated, currently in no distress. Exam/Review of Systems Vital Signs Vitals Vital Signs Date Time Temp Pulse Resp B/P Pulse Ox O2 Delivery O2 Flow Rate FiO2 01/09/17 08:00 98.8 74 16 152/73 100 Mechanical Ventilator 01/09/17 07:40 55 01/07/17 10:45 4.0 Intake and Output 01/08/17 01/08/17 01/09/17 15:00 23:00 07:00 Intake Total 241.88 ml 488.84 ml 386.32 ml Output Total 210 ml 205 ml 500 ml Balance 31.88 ml 283.84 ml -113.68 ml Exam HEENT exam; supple neck, positive JVD. No lymphadenopathy. Midline trachea. No thyromegaly. Patient has a multiple carious teeth. Orally intubated. No neck masses. Chest exam; diminished breath sounds bilaterally. More pronounced in right lung. S1-S2 audible, no murmurs. Regular rhythm. Abdomen exam; soft, no organomegaly. Bowel sounds audible. Extremity exam; trace edema. 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 Results Result Diagram: 01/09/17 0500 01/09/17 0500 Results 24 hrs Laboratory Tests Test 01/08/17 09:09 01/08/17 13:37 01/08/17 17:11 01/08/17 17:47 Bedside Glucose 75 71 59 L 107 Test 01/08/17 18:10 01/08/17 21:26 01/08/17 21:52 01/08/17 22:28 Bedside Glucose 107 64 L 170 117 Test 01/09/17 00:44 01/09/17 01:00 01/09/17 04:39 01/09/17 05:00 Bedside Glucose 83 62 L Vancomycin Level Trough 19.9 White Blood Count 8.4 # Red Blood Count 2.70 L Hemoglobin 7.9 L Hematocrit 25.7 L Mean Corpuscular Volume 95.2 Mean Corpuscular Hemoglobin 29.3 Mean Corpuscular Hemoglobin Concent 30.7 L Red Cell Distribution Width 15.7 H Platelet Count 235 Mean Platelet Volume 10.0 Neutrophils % 82.8 H Lymphocytes % 6.8 L Monocytes % 6.6 Eosinophils % 2.9 Basophils % 0.1 Nucleated Red Blood Cells % 0.0 Neutrophils # 6.9 Lymphocytes # 0.6 L Monocytes # 0.6 Eosinophils # 0.2 Basophils # 0.0 Nucleated Red Blood Cells # 0.0 Sodium Level 131 L Potassium Level 4.1 Chloride Level 94 L Carbon Dioxide Level 30 Anion Gap 11 Blood Urea Nitrogen 67 H Creatinine 2.53 H Glucose Level 186 # Calcium Level 9.1 Phosphorus Level 4.1 Magnesium Level 2.3 Test 01/09/17 05:18 01/09/17 08:28 Bedside Glucose 130 84 Medications Medications Current Medications Cefepime HCl (Maxipime 2gm/50 ml (Pmx)) 50 ml @ 100 mls/hr DAILY IVPB Last administered on 01/08/17 09:26; Admin Dose 100 MLS/HR; Start 01/05/17 at 02:30 Naloxone HCl (Narcan) 0.4 mg Q4 PRN IV SEDATION; Start 01/05/17 at 01:30 Vancomycin HCl (Vanco Iv Per Pharmacy) PER PHARMACY DOSING NOTE XX ; Start 01/05 at 02:00 Acetaminophen (Tylenol Tab) 650 mg Q6H PRN PO PAIN AND OR ELEVATED TEMP; Start 01/05/17 at 10:30 Apixaban (Eliquis) 2.5 mg BID PO Last administered on 01/09/17 08:55; Admin Dose 2.5 MG; Start 01/05/17 at 10:30 Ascorbic Acid (Vitamin C) 500 mg BID PO Last administered on 01/09/17 08:53; Admin Dose 500 MG; Start 01/05/17 at 10:30 Bisacodyl (Dulcolax Supp) 10 mg DAILY GA Last administered on 01/09/17 08:52; Admin Dose 10 MG; Start 01/06/17 at 09:00 Budesonide (Pulmicort (Neb)) 0.25 mg BID NEB Last administered on 01/08/17 22: 24; Admin Dose 0.25 MG; Start 01/05/17 at 10:30 Docusate Sodium (Colace) 100 mg BID PO Last administered on 01/08/17 20:41; Admin Dose 100 MG; Start 01/05/17 at 10:30 Fluticasone Propionate (Flonase 0.05% Nasal) 1 spray DAILY NASAL Last administered on 01/07/17 09:25; Admin Dose 1 SPRAY; Start 01/05/17 at 11:00 Fulvestrant (Faslodex) 500 mg Q28D IM ; Start 01/05/17 at 10:30; Status UNV Insulin Glargine (Lantus) 18 unit DAILY SC Last administered on 01/08/17 08:56 ; Admin Dose 18 UNIT; Start 01/05/17 at 10:30 Loratadine (Claritin) 10 mg DAILY PO Last administered on 01/09/17 08:49; Admin Dose 10 MG; Start 01/05/17 at 11:00 Magnesium Hydroxide (Milk Of Mag) 30 ml BID PRN PO CONSTIPATION; Start at 10:30 Magnesium Oxide (Mag-Ox 400) 400 mg DAILY PO Last administered on 01/09/17 08: 55; Admin Dose 400 MG; Start 01/05/17 at 10:30 Metoprolol Tartrate (Lopressor) 25 mg Q8 PO Last administered on 01/09/17 05: 23; Admin Dose 25 MG; Start 01/05/17 at 14:00 Mirtazapine (Remeron) 15 mg HS PO Last administered on 01/08/17 20:42; Admin Dose 15 MG; Start 01/05/17 at 21:00 Nitroglycerin (Nitroglycerin 2% Oint) 0.5 inch Q6 PRN TD CHEST PAIN; Start 03/13 at 10:30 Ondansetron HCl (Zofran Inj) 4 mg Q6H PRN IV NAUSEA Last administered on 21:31; Admin Dose 4 MG; Start 01/05/17 at 10:30 Sertraline HCl (Zoloft) 75 mg DAILY PO Last administered on 01/09/17 08:51; Admin Dose 75 MG; Start 01/05/17 at 10:30 Sildenafil Citrate (Revatio) 20 mg TID PO Last administered on 01/09/17 08:52 ; Admin Dose 20 MG; Start 01/05/17 at 13:00 Tacrolimus (Prograf) 2 mg QPM PO Last administered on 01/08/17 21:32; Admin Dose 2 MG; Start 01/05/17 at 21:00 Pantoprazole (Protonix Tab) 40 mg DAILY@06 PO Last administered on 01/09/17 05 :20; Admin Dose 40 MG; Start 01/06/17 at 06:00 Senna (Senokot) 1 tab HS PO Last administered on 01/08/17 20:42; Admin Dose 1 TAB; Start 01/05/17 at 21:00 Prednisone (Prednisone) 5 mg DAILY PO Last administered on 01/09/17 08:55; Admin Dose 5 MG; Start 01/05/17 at 12:00 Prednisone (Prednisone) 3 mg DAILY PO Last administered on 01/09/17 08:53; Admin Dose 3 MG; Start 01/05/17 at 12:00 Miscellaneous Information 1 ea NOTE XX ; Start 01/05/17 at 11:00 Glucose (Glutose) 15 gm Q15M PRN PO DECREASED GLUCOSE; Start 01/05/17 at 11:00 Glucose (Glutose) 22.5 gm Q15M PRN PO DECREASED GLUCOSE; Start 01/05/17 at 11: 00 Dextrose (D50w Syringe) 25 ml Q15M PRN IV DECREASED GLUCOSE Last administered on 01/09/17 04:45; Admin Dose 25 ML; Start 01/05/17 at 11:00 Dextrose (D50w Syringe) 50 ml Q15M PRN IV DECREASED GLUCOSE Last administered on 01/08/17 21:33; Admin Dose 50 ML; Start 01/05/17 at 11:00 Glucagon (Glucagen) 1 mg Q15M PRN IM DECREASED GLUCOSE; Start 01/05/17 at 11:00 Glucose (Glutose) 15 gm Q15M PRN BUCCAL DECREASED GLUCOSE; Start 01/05/17 at 11 :00 Oxcarbazepine (Trileptal) 600 mg BID PO Last administered on 01/09/17 08:49; Admin Dose 600 MG; Start 01/05/17 at 12:00 Insulin Aspart NOVOLOG *MILD* ALGORI... Q4 SC Last administered on 01/07/17 14 :40; Admin Dose 1 UNIT; Start 01/05/17 at 13:00 Fentanyl 100 ml @ 2.5 mls/hr TITRATE IV Last administered on 01/07/17 02:25; Admin Dose 7.5 MLS/HR; Start 01/06/17 at 09:30 Norepinephrine/ Dextrose (Levophed/D5W) 500 ml @ 0 mls/hr TITRATE IV ; Start 04/12 at 13:30 Bumetanide 1 mg 1 mg BID IV Last administered on 01/08/17 20:41; Admin Dose 1 MG; Start 01/08/17 at 09:00 Caspofungin 50 mg/ Sodium Chloride 250 ml @ 250 mls/hr Q24H IVPB ; Start at 15:00 Propofol 100 ml @ 2.19 mls/hr Q12H IV Last administered on 01/09/17 06:22; Admin Dose 10.95 MLS/HR; Start 01/08/17 at 16:00 Dextrose 1,000 ml @ 40 mls/hr Q24H IV Last administered on 01/08/17 19:01; Admin Dose 40 MLS/HR; Start 01/08/17 at 18:00 Vancomycin HCl (Vancocin) 250 ml @ 125 mls/hr Q48H IVPB Last administered on 05:19; Admin Dose 125 MLS/HR; Start 01/09/17 at 06:00 Miscellaneous Information (*Order Clarification Bulletin) FULVESTRANT 250 MG/5 ML SYG: PLE... Q8H XX ; Start 01/09/17 at 08:00 JOELLE INFANTE Jan 09, 2017 09:02
[2017-01-09] MEDS: BALSAM PERU/CASTOR OIL 60 GM TUBE TOP SCH (09:16)
[2017-01-09] MEDS: BUDESONIDE (NEB) 0.25 MG/2 ML AMP NEB SCH ×2 (09:22→19:11)
[2017-01-09 12:26] LABS: INR 1.27; PT RATIO 1.3
[2017-01-09 12:27] LABS: PARTIAL THROMBOPLASTIN TIME 37.7 Sec (25.0-35.0)
--- NOTE | 2017-01-09 13:25 | PN ---
DATE: 01/09/2017 SUBJECTIVE DATA: No acute events overnight. The patient is intubated, sedated, in no distress. She is afebrile. Temperature 98.8, pulse 74, respirations 16, blood pressure 152/73, saturation 100 on 55 FiO2. INDWELLING: Endotracheal tube, NG tube, Dela Cruz, right femoral Bandar catheter. ANTIMICROBIALS: Vancomycin Cancidas and Cefepime. MICROBIOLOGY: Endotracheal aspirate growing yeast, not Mellissa albicans. OBJECTIVE DATA: GENERAL: Fragile, elderly woman, who is intubated, sedated, in no distress. HEENT: Head atraumatic, normocephalic. Sclerae anicteric. Buccal mucosa dry. NECK: Supple. CHEST: Rise symmetrical. Breath sounds diminished at the bases. HEART: S1, S2. ABDOMEN: Soft, bowel sounds present. EXTREMITIES: Without cyanosis. ASSESSMENT: 1. Sepsis status post-shock. 2. Acute respiratory failure. 3. Healthcare-associated pneumonia possibly aspirated. 4. Diabetes. 5. Hypertension. 6. History of kidney transplant, on immunosuppressive therapy. 7. History of metastatic breast cancer. 8. Diabetes. PLAN: The patient remains hemodynamically stable. Continue present care. Antibiotics. Follow recommendations of consultants. Consider changing femoral line. Dictated By: Artis Castañeda NP /[email or web address] /Document#: [id number]
[2017-01-09] MEDS: CASPOFUNGIN 50 MG in SOD CHLORIDE 0.9% 250 ML IVPB SCH (15:06)
--- NOTE | 2017-01-09 16:28 | CONS ---
Date/Time of Note Date/Time of Note DATE: 01/09/17 TIME: 16:28 Assessment/Plan Assessment/Plan Chief Complaint/Hosp Course History of breast cancer with lung metastasis. The patient is on medical management. cont Faslodex as outpt Anemia. Monitor hemoglobin and hematocrit levels. 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 Congestive heart failure exacerbation. Hypothyroidism. Diabetes. Continue current insulin regimen. Pulmonary hypertension. Depression. Problems: Consultation Date/Type/Reason Admit Date/Time Jan 05, 2017 at 00:15 Initial Consult Date 01/05/17 Type of Consultation: [facility] Referring Provider: SUSAN SIMENTAL DO 24 HR Interval Summary Free Text/Dictation ALL NOTED D/W RN Exam/Review of Systems Vital Signs Vitals Vital Signs Date Time Temp Pulse Resp B/P Pulse Ox O2 Delivery O2 Flow Rate FiO2 01/09/17 16:15 74 12 100 01/09/17 16:00 118/49 Mechanical Ventilator 01/09/17 15:20 50 01/09/17 12:00 98.5 01/07/17 10:45 4.0 Intake and Output 01/08/17 01/08/17 01/09/17 15:00 23:00 07:00 Intake Total 241.88 ml 488.84 ml 397.27 ml Output Total 210 ml 205 ml 500 ml Balance 31.88 ml 283.84 ml -102.73 ml Exam HEENT: Head is normocephalic. NECK: Supple. HEART: Regular rate. LUNGS: Show diminished breath sounds at the base. ABDOMEN: Soft, nontender to palpation. No rebound or guarding. EXTREMITIES: Negative for clubbing, cyanosis. No edema. DERMATOLOGIC: Clean. No rashes. MUSCULOSKELETAL: No joint effusion. NEUROLOGIC: No change in exam. + SCROTAL EDEMA NO NEW PETECHIA OR HEMATOMA Results Result Diagram: 01/09/17 0500 01/09/17 0500 Results 24 hrs Laboratory Tests Test 01/08/17 17:11 01/08/17 17:47 01/08/17 18:10 01/08/17 21:26 Bedside Glucose 59 L 107 107 64 L Test 01/08/17 21:52 01/08/17 22:28 01/09/17 00:44 01/09/17 01:00 Bedside Glucose 170 117 83 Vancomycin Level Trough 19.9 Test 01/09/17 04:39 01/09/17 05:00 01/09/17 05:18 01/09/17 08:28 Bedside Glucose 62 L 130 84 White Blood Count 8.4 # Red Blood Count 2.70 L Hemoglobin 7.9 L Hematocrit 25.7 L Mean Corpuscular Volume 95.2 Mean Corpuscular Hemoglobin 29.3 Mean Corpuscular Hemoglobin Concent 30.7 L Red Cell Distribution Width 15.7 H Platelet Count 235 Mean Platelet Volume 10.0 Neutrophils % 82.8 H Lymphocytes % 6.8 L Monocytes % 6.6 Eosinophils % 2.9 Basophils % 0.1 Nucleated Red Blood Cells % 0.0 Neutrophils # 6.9 Lymphocytes # 0.6 L Monocytes # 0.6 Eosinophils # 0.2 Basophils # 0.0 Nucleated Red Blood Cells # 0.0 Sodium Level 131 L Potassium Level 4.1 Chloride Level 94 L Carbon Dioxide Level 30 Anion Gap 11 Blood Urea Nitrogen 67 H Creatinine 2.53 H Glucose Level 186 # Calcium Level 9.1 Phosphorus Level 4.1 Magnesium Level 2.3 Test 01/09/17 11:53 01/09/17 13:18 Prothrombin Time 16.0 H Prothrombin Time Ratio 1.3 INR International Normalized Ratio 1.27 Activated Partial Thromboplast Time 37.7 H Bedside Glucose 146 Medications Medications Current Medications Cefepime HCl (Maxipime 2gm/50 ml (Pmx)) 50 ml @ 100 mls/hr DAILY IVPB Last administered on 01/09/17 08:58; Admin Dose 100 MLS/HR; Start 01/05/17 at 02:30 Naloxone HCl (Narcan) 0.4 mg Q4 PRN IV SEDATION; Start 01/05/17 at 01:30 Vancomycin HCl (Vanco Iv Per Pharmacy) PER PHARMACY DOSING NOTE XX ; Start 01/05 at 02:00 Acetaminophen (Tylenol Tab) 650 mg Q6H PRN PO PAIN AND OR ELEVATED TEMP; Start 01/05/17 at 10:30 Apixaban (Eliquis) 2.5 mg BID PO Last administered on 01/09/17 08:55; Admin Dose 2.5 MG; Start 01/05/17 at 10:30 Ascorbic Acid (Vitamin C) 500 mg BID PO Last administered on 01/09/17 08:53; Admin Dose 500 MG; Start 01/05/17 at 10:30 Bisacodyl (Dulcolax Supp) 10 mg DAILY OR Last administered on 01/09/17 08:52; Admin Dose 10 MG; Start 01/06/17 at 09:00 Budesonide (Pulmicort (Neb)) 0.25 mg BID NEB Last administered on 01/09/17 09: 22; Admin Dose 0.25 MG; Start 01/05/17 at 10:30 Docusate Sodium (Colace) 100 mg BID PO Last administered on 01/08/17 20:41; Admin Dose 100 MG; Start 01/05/17 at 10:30 Fluticasone Propionate (Flonase 0.05% Nasal) 1 spray DAILY NASAL Last administered on 01/07/17 09:25; Admin Dose 1 SPRAY; Start 01/05/17 at 11:00 Fulvestrant (Faslodex) 500 mg Q28D IM ; Start 01/05/17 at 10:30; Status UNV Insulin Glargine (Lantus) 18 unit DAILY SC Last administered on 01/08/17 08:56 ; Admin Dose 18 UNIT; Start 01/05/17 at 10:30 Loratadine (Claritin) 10 mg DAILY PO Last administered on 01/09/17 08:49; Admin Dose 10 MG; Start 01/05/17 at 11:00 Magnesium Hydroxide (Milk Of Mag) 30 ml BID PRN PO CONSTIPATION; Start at 10:30 Magnesium Oxide (Mag-Ox 400) 400 mg DAILY PO Last administered on 01/09/17 08: 55; Admin Dose 400 MG; Start 01/05/17 at 10:30 Metoprolol Tartrate (Lopressor) 25 mg Q8 PO Last administered on 01/09/17 13: 18; Admin Dose 25 MG; Start 01/05/17 at 14:00 Mirtazapine (Remeron) 15 mg HS PO Last administered on 01/08/17 20:42; Admin Dose 15 MG; Start 01/05/17 at 21:00 Nitroglycerin (Nitroglycerin 2% Oint) 0.5 inch Q6 PRN TD CHEST PAIN; Start 03/13 at 10:30 Ondansetron HCl (Zofran Inj) 4 mg Q6H PRN IV NAUSEA Last administered on 21:31; Admin Dose 4 MG; Start 01/05/17 at 10:30 Sertraline HCl (Zoloft) 75 mg DAILY PO Last administered on 01/09/17 08:51; Admin Dose 75 MG; Start 01/05/17 at 10:30 Sildenafil Citrate (Revatio) 20 mg TID PO Last administered on 01/09/17 13:18 ; Admin Dose 20 MG; Start 01/05/17 at 13:00 Tacrolimus (Prograf) 2 mg QPM PO Last administered on 01/08/17 21:32; Admin Dose 2 MG; Start 01/05/17 at 21:00 Pantoprazole (Protonix Tab) 40 mg DAILY@06 PO Last administered on 01/09/17 05 :20; Admin Dose 40 MG; Start 01/06/17 at 06:00 Senna (Senokot) 1 tab HS PO Last administered on 01/08/17 20:42; Admin Dose 1 TAB; Start 01/05/17 at 21:00 Prednisone (Prednisone) 5 mg DAILY PO Last administered on 01/09/17 08:55; Admin Dose 5 MG; Start 01/05/17 at 12:00 Prednisone (Prednisone) 3 mg DAILY PO Last administered on 01/09/17 08:53; Admin Dose 3 MG; Start 01/05/17 at 12:00 Miscellaneous Information 1 ea NOTE XX ; Start 01/05/17 at 11:00 Glucose (Glutose) 15 gm Q15M PRN PO DECREASED GLUCOSE; Start 01/05/17 at 11:00 Glucose (Glutose) 22.5 gm Q15M PRN PO DECREASED GLUCOSE; Start 01/05/17 at 11: 00 Dextrose (D50w Syringe) 25 ml Q15M PRN IV DECREASED GLUCOSE Last administered on 01/09/17 04:45; Admin Dose 25 ML; Start 01/05/17 at 11:00 Dextrose (D50w Syringe) 50 ml Q15M PRN IV DECREASED GLUCOSE Last administered on 01/08/17 21:33; Admin Dose 50 ML; Start 01/05/17 at 11:00 Glucagon (Glucagen) 1 mg Q15M PRN IM DECREASED GLUCOSE; Start 01/05/17 at 11:00 Glucose (Glutose) 15 gm Q15M PRN BUCCAL DECREASED GLUCOSE; Start 01/05/17 at 11 :00 Oxcarbazepine (Trileptal) 600 mg BID PO Last administered on 01/09/17 08:49; Admin Dose 600 MG; Start 01/05/17 at 12:00 Insulin Aspart NOVOLOG *MILD* ALGORI... Q4 SC Last administered on 01/09/17 13 :26; Admin Dose 1 UNIT; Start 01/05/17 at 13:00 Fentanyl 100 ml @ 2.5 mls/hr TITRATE IV Last administered on 01/07/17 02:25; Admin Dose 7.5 MLS/HR; Start 01/06/17 at 09:30 Norepinephrine/ Dextrose (Levophed/D5W) 500 ml @ 0 mls/hr TITRATE IV ; Start 04/12 at 13:30 Bumetanide 1 mg 1 mg BID IV Last administered on 01/09/17 08:58; Admin Dose 1 MG; Start 01/08/17 at 09:00 Caspofungin 50 mg/ Sodium Chloride 250 ml @ 250 mls/hr Q24H IVPB Last administered on 01/09/17 15:06; Admin Dose 250 MLS/HR; Start 01/09/17 at 15:00 Propofol 100 ml @ 2.19 mls/hr Q12H IV Last administered on 01/09/17 06:22; Admin Dose 10.95 MLS/HR; Start 01/08/17 at 16:00 Dextrose (D5W) 1,000 ml @ 40 mls/hr Q24H IV Last administered on 01/08/17 19: 01; Admin Dose 40 MLS/HR; Start 01/08/17 at 18:00 Miscellaneous Information FULVESTRANT 250 MG/5 ML SYG: PLE... Q8H XX ; Start at 08:00 Vancomycin HCl/ Sodium Chloride (Vancocin/NS) 150 ml @ 75 mls/hr Q48H IVPB ; Start 01/11/17 at 06:00 SHANICE DAVENPORT MD Jan 09, 2017 16:28
[2017-01-09] MEDS: DEXTROSE 5% 1,000 ML IV SCH (20:51)
[2017-01-09] MEDS: MIRTAZAPINE 15 MG TAB PO SCH (20:52)
[2017-01-09] MEDS: SENNA TAB PO SCH (20:52)
[2017-01-10] VITALS (52 sets, daily range): BP systolic 92–181; BP diastolic 40–84; PULSE 73–117; RESP 10–19
[2017-01-10] MEDS: INSULIN ASPART [NOVOLOG] 3 ML PEN SC SCH ×6 (00:57→21:07)
[2017-01-10] MEDS: PROPOFOL 100 ML IV SCH ×2 (01:50→14:43)
[2017-01-10] MEDS: ALBUTEROL 18 GM INHALER INH SCH ×4 (02:31→19:46)
[2017-01-10] MEDS: IPRATROPIUM (HFA) 12.9 GM INHALER INH SCH ×4 (02:31→19:46)
[2017-01-10] MEDS: PANTOPRAZOLE (EC) 40 MG TAB PO SCH (05:03)
[2017-01-10] MEDS: METOPROLOL 25 MG TAB PO SCH ×3 (05:04→21:16)
[2017-01-10 05:11] LABS: BASOPHILS % 0.2 % (0.0-2.0); EOSINOPHILS # 0.3 10^3/ul (0.0-0.5); EOSINOPHILS % 3.9 % (0.0-7.0); HEMATOCRIT 26.5 % (37.0-47.0); HEMOGLOBIN 8.3 g/dl (12.0-16.0); LYMPHOCYTES # 0.7 10^3/ul (0.8-2.9); LYMPHOCYTES % 8.2 % (15.0-51.0); MEAN CORPUSCULAR HEMOGLOBIN 28.9 pg (29.0-33.0); MEAN CORPUSCULAR HGB CONC 31.3 g/dl (32.0-37.0); MEAN CORPUSCULAR VOLUME 92.3 fl (82.0-101.0); MEAN PLATELET VOLUME 9.7 fl (7.4-10.4); MONOCYTE # 0.6 10^3/ul (0.3-0.9); MONOCYTES % 6.4 % (0.0-11.0); NEUTROPHIL # 6.8 10^3/ul (1.6-7.5); NEUTROPHILS % 79.8 % (39.0-77.0); PLATELET COUNT 232 10^3/UL (140-415); RED BLOOD COUNT 2.87 10^6/ul (4.20-5.40); RED CELL DISTRIBUTION WIDTH 15.2 % (11.5-14.5); WHITE BLOOD COUNT 8.6 10^3/ul (4.8-10.8)
[2017-01-10 05:54] LABS: CALCIUM 9.2 mg/dl (8.4-10.2); CREATININE 2.53 mg/dl (0.44-1.00); MAGNESIUM 2.2 mg/dl (1.7-2.5); PHOSPHORUS 4.6 mg/dl (2.5-4.9); POTASSIUM 4.1 mmol/L (3.5-5.1)
[2017-01-10] MEDS: LEVOTHYROXINE 75 MCG TAB PO SCH (06:18)
[2017-01-10] MEDS: [UNRECOGNIZED DRUG - REMARK] XX SCH ×2 (08:00→16:00)
[2017-01-10] MEDS: TACROLIMUS 1 MG CAP PO SCH ×2 (08:24→21:15)
[2017-01-10] MEDS: predniSONE 5 MG TAB PO SCH (08:25)
[2017-01-10] MEDS: predniSONE 1 MG TAB PO SCH (08:25)
[2017-01-10] MEDS: OXCARBAZEPINE 300 MG TAB PO SCH ×2 (08:26→21:13)
[2017-01-10] MEDS: SERTRALINE 50 MG TAB PO SCH (08:27)
[2017-01-10] MEDS: ASCORBIC ACID 500 MG TAB PO SCH ×2 (08:27→21:15)
[2017-01-10] MEDS: SILDENAFIL 20 MG TAB PO SCH ×3 (08:27→21:19)
[2017-01-10] MEDS: LORATADINE 10 MG TAB PO SCH (08:28)
[2017-01-10] MEDS: BUMETANIDE 1 MG INJ IV SCH ×2 (08:28→21:12)
[2017-01-10] MEDS: BISACODYL 10 MG SUPP PR SCH (08:28)
[2017-01-10] MEDS: MAGNESIUM OXIDE 400 MG TAB PO SCH (08:28)
[2017-01-10] MEDS: DOCUSATE SODIUM 100 MG CAP PO SCH ×2 (08:29→21:13)
--- NOTE | 2017-01-10 08:43 | CONS ---
Date/Time of Note Date/Time of Note DATE: 01/10/17 TIME: 08:40 Consult Date/Type/Reason Admit Date/Time Jan 05, 2017 at 00:15 Initial Consult Date 01/05/17 Type of Consultation: cardiology Ordering Provider: SUSAN SIMENTAL DO Subjective CARDIOLOGY FOLLOW UP NOTE: D/W Staff and rhythm was reviewed. pt has converted back to Afib. HR has been stable however. pt remains intubated on vent NOW. pt was extubated on 01/07/17 but had to be re- intubated again the same night due to resp distress even on BIPAP. NO reports of any chest pain or pressure OBJECTIVE: General: intubated on vent. HEENT: NC/AT. pupils are equal. round. NECK: NO JVD. no stridor. CV: RRR. systolic murmur; no gallop or rubs. PULM: no wheezing, + mild rhonchi. GI: SOFT, NT, ND, no rebound or guarding Extremity: trace B/L LE edema. no clubbing. neuro: opens her eyes to verbal stimuli . . Psych: unable to assess rectal: deferred : normal ECHO 12/16/16: Personally reviewed 1. Normal left ventricular systolic function. Normal left ventricular cavity size. Moderate concentric left ventricular hypertrophy. Ejection fraction is visually estimated at 65 %. Abnormal Diastolic Function. 2. There is moderate enlargement of left atrium. 3. Mild mitral leaflet calcification. Mild mitral annular calcification. Trace mitral regurgitation. 4. Aortic sclerosis without stenosis. Trace aortic valve regurgitation. 5. Normal appearance of the tricuspid valve. Estimated peak PA systolic pressure 38 mmHg. There is mild tricuspid regurgitation. Objective Vital Signs Date Time Temp Pulse Resp B/P Pulse Ox O2 Delivery O2 Flow Rate FiO2 01/10/17 06:00 93 13 133/60 100 Mechanical Ventilator 01/10/17 05:08 50 01/10/17 04:00 98.4 01/07/17 10:45 4.0 Intake and Output 01/09/17 01/09/17 01/10/17 15:00 23:00 07:00 Intake Total 72.27 ml 276.65 ml 434.46 ml Output Total 202 ml 235 ml 200 ml Balance -129.73 ml 41.65 ml 234.46 ml Results/Medications Result Diagram: 01/10/17 0400 01/10/17 0400 Results 24 hrs Laboratory Tests Test 01/09/17 11:53 01/09/17 13:18 01/09/17 17:07 01/09/17 20:51 Prothrombin Time 16.0 H Prothrombin Time Ratio 1.3 INR International Normalized Ratio 1.27 Activated Partial Thromboplast Time 37.7 H Bedside Glucose 146 157 142 Test 01/10/17 00:50 01/10/17 04:00 01/10/17 04:55 Bedside Glucose 148 154 White Blood Count 8.6 Red Blood Count 2.87 L Hemoglobin 8.3 L Hematocrit 26.5 L Mean Corpuscular Volume 92.3 Mean Corpuscular Hemoglobin 28.9 L Mean Corpuscular Hemoglobin Concent 31.3 L Red Cell Distribution Width 15.2 H Platelet Count 232 Mean Platelet Volume 9.7 Neutrophils % 79.8 H Lymphocytes % 8.2 L Monocytes % 6.4 Eosinophils % 3.9 Basophils % 0.2 Nucleated Red Blood Cells % 0.0 Neutrophils # 6.8 Lymphocytes # 0.7 L Monocytes # 0.6 Eosinophils # 0.3 Basophils # 0.0 Nucleated Red Blood Cells # 0.0 Sodium Level 128 L Potassium Level 4.1 Chloride Level 93 L Carbon Dioxide Level 29 Anion Gap 10 Blood Urea Nitrogen 66 H Creatinine 2.53 H Glucose Level 138 # Calcium Level 9.2 Phosphorus Level 4.6 Magnesium Level 2.2 Medications Current Medications Cefepime HCl (Maxipime 2gm/50 ml (Pmx)) 50 ml @ 100 mls/hr DAILY IVPB Last administered on 01/09/17 08:58; Admin Dose 100 MLS/HR; Start 01/05/17 at 02:30 Naloxone HCl (Narcan) 0.4 mg Q4 PRN IV SEDATION; Start 01/05/17 at 01:30 Vancomycin HCl (Vanco Iv Per Pharmacy) PER PHARMACY DOSING NOTE XX ; Start 01/05 at 02:00 Acetaminophen (Tylenol Tab) 650 mg Q6H PRN PO PAIN AND OR ELEVATED TEMP; Start 01/05/17 at 10:30 Apixaban (Eliquis) 2.5 mg BID PO Last administered on 01/09/17 20:52; Admin Dose 2.5 MG; Start 01/05/17 at 10:30 Ascorbic Acid (Vitamin C) 500 mg BID PO Last administered on 01/10/17 08:27; Admin Dose 500 MG; Start 01/05/17 at 10:30 Bisacodyl (Dulcolax Supp) 10 mg DAILY MS Last administered on 01/10/17 08:28; Admin Dose 10 MG; Start 01/06/17 at 09:00 Budesonide (Pulmicort (Neb)) 0.25 mg BID NEB Last administered on 01/09/17 19: 11; Admin Dose 0.25 MG; Start 01/05/17 at 10:30 Docusate Sodium (Colace) 100 mg BID PO Last administered on 01/09/17 20:51; Admin Dose 100 MG; Start 01/05/17 at 10:30 Fluticasone Propionate (Flonase 0.05% Nasal) 1 spray DAILY NASAL Last administered on 01/07/17 09:25; Admin Dose 1 SPRAY; Start 01/05/17 at 11:00 Fulvestrant (Faslodex) 500 mg Q28D IM ; Start 01/05/17 at 10:30; Status UNV Insulin Glargine (Lantus) 18 unit DAILY SC Last administered on 01/08/17 08:56 ; Admin Dose 18 UNIT; Start 01/05/17 at 10:30 Loratadine (Claritin) 10 mg DAILY PO Last administered on 01/10/17 08:28; Admin Dose 10 MG; Start 01/05/17 at 11:00 Magnesium Hydroxide (Milk Of Mag) 30 ml BID PRN PO CONSTIPATION; Start at 10:30 Magnesium Oxide (Mag-Ox 400) 400 mg DAILY PO Last administered on 01/10/17 08: 28; Admin Dose 400 MG; Start 01/05/17 at 10:30 Metoprolol Tartrate (Lopressor) 25 mg Q8 PO Last administered on 01/10/17 05: 04; Admin Dose 25 MG; Start 01/05/17 at 14:00 Mirtazapine (Remeron) 15 mg HS PO Last administered on 01/09/17 20:52; Admin Dose 15 MG; Start 01/05/17 at 21:00 Nitroglycerin (Nitroglycerin 2% Oint) 0.5 inch Q6 PRN TD CHEST PAIN; Start 03/13 at 10:30 Ondansetron HCl (Zofran Inj) 4 mg Q6H PRN IV NAUSEA Last administered on 21:31; Admin Dose 4 MG; Start 01/05/17 at 10:30 Sertraline HCl (Zoloft) 75 mg DAILY PO Last administered on 01/10/17 08:27; Admin Dose 75 MG; Start 01/05/17 at 10:30 Sildenafil Citrate (Revatio) 20 mg TID PO Last administered on 01/10/17 08:27 ; Admin Dose 20 MG; Start 01/05/17 at 13:00 Tacrolimus (Prograf) 2 mg QPM PO Last administered on 01/09/17 20:52; Admin Dose 2 MG; Start 01/05/17 at 21:00 Pantoprazole (Protonix Tab) 40 mg DAILY@06 PO Last administered on 01/10/17 05 :03; Admin Dose 40 MG; Start 01/06/17 at 06:00 Senna (Senokot) 1 tab HS PO Last administered on 01/09/17 20:52; Admin Dose 1 TAB; Start 01/05/17 at 21:00 Prednisone (Prednisone) 5 mg DAILY PO Last administered on 01/10/17 08:25; Admin Dose 5 MG; Start 01/05/17 at 12:00 Prednisone (Prednisone) 3 mg DAILY PO Last administered on 01/10/17 08:25; Admin Dose 3 MG; Start 01/05/17 at 12:00 Miscellaneous Information 1 ea NOTE XX ; Start 01/05/17 at 11:00 Glucose (Glutose) 15 gm Q15M PRN PO DECREASED GLUCOSE; Start 01/05/17 at 11:00 Glucose (Glutose) 22.5 gm Q15M PRN PO DECREASED GLUCOSE; Start 01/05/17 at 11: 00 Dextrose (D50w Syringe) 25 ml Q15M PRN IV DECREASED GLUCOSE Last administered on 01/09/17 04:45; Admin Dose 25 ML; Start 01/05/17 at 11:00 Dextrose (D50w Syringe) 50 ml Q15M PRN IV DECREASED GLUCOSE Last administered on 01/08/17 21:33; Admin Dose 50 ML; Start 01/05/17 at 11:00 Glucagon (Glucagen) 1 mg Q15M PRN IM DECREASED GLUCOSE; Start 01/05/17 at 11:00 Glucose (Glutose) 15 gm Q15M PRN BUCCAL DECREASED GLUCOSE; Start 01/05/17 at 11 :00 Oxcarbazepine (Trileptal) 600 mg BID PO Last administered on 01/10/17 08:26; Admin Dose 600 MG; Start 01/05/17 at 12:00 Insulin Aspart NOVOLOG *MILD* ALGORI... Q4 SC Last administered on 01/10/17 04 :58; Admin Dose 1 UNIT; Start 01/05/17 at 13:00 Fentanyl 100 ml @ 2.5 mls/hr TITRATE IV Last administered on 01/07/17 02:25; Admin Dose 7.5 MLS/HR; Start 01/06/17 at 09:30 Norepinephrine/ Dextrose (Levophed/D5W) 500 ml @ 0 mls/hr TITRATE IV ; Start 04/12 at 13:30 Bumetanide 1 mg 1 mg BID IV Last administered on 01/10/17 08:28; Admin Dose 1 MG; Start 01/08/17 at 09:00 Caspofungin 50 mg/ Sodium Chloride 250 ml @ 250 mls/hr Q24H IVPB Last administered on 01/09/17 15:06; Admin Dose 250 MLS/HR; Start 01/09/17 at 15:00 Propofol 100 ml @ 2.19 mls/hr Q12H IV Last administered on 01/10/17 01:50; Admin Dose 10.95 MLS/HR; Start 01/08/17 at 16:00 Dextrose (D5W) 1,000 ml @ 40 mls/hr Q24H IV Last administered on 01/09/17 20: 51; Admin Dose 40 MLS/HR; Start 01/08/17 at 18:00 Miscellaneous Information FULVESTRANT 250 MG/5 ML SYG: PLE... Q8H XX ; Start at 08:00 Vancomycin HCl/ Sodium Chloride (Vancocin/NS) 150 ml @ 75 mls/hr Q48H IVPB ; Start 01/11/17 at 06:00 Assessment/Plan Chief Complaint/Hosp Course Assessment: 1. s/p cardiopulmonary arrest: Most likely due to pulmonary arrest 2. P afib: 3. History of renal failure status post renal transplant: now with KATI on CKD 4. Acute on chronic hypoxemic hypercapnic respiratory failure status post reintubation: currently on the vent 5. Shock: resolved now. currently hypertensive, but controlled. 6. ANEMIA 7. breast cancer 8. history of HTN: 9. anxiety 10. DM 11. Hypothyroidism: on synthroid. 12. pleural effusion Recommendations: cont eliquis as long as no signs of active bleeding and no surgery/ procedure is planned. man need to hold it if need to do thoracentesis. vent support for now anti- rejection medications to be adjusted as per renal team cont DM control thyroid supplement cont betablocker . correct lytes prn cont tele monitoring cont ICU care. THORACENTESIS is scheduled for today. will hold eliquis today. Thank you for this referral I will continue to follow along with you. AUGUSTINA MALDONADO MD [facility] Problems: AUGUSTINA MALDONADO MD Jan 10, 2017 08:43
[2017-01-10] MEDS: CEFEPIME 2GM/50 ML (PMX) 50 ML IVPB SCH (08:58)
[2017-01-10] MEDS: FLUTICASONE 0.05% 16 GM NAS SPRAY NASAL SCH (09:00)
[2017-01-10] MEDS: APIXABAN 5 MG TABLET PO SCH ×2 (09:00→21:19)
--- NOTE | 2017-01-10 09:25 | PN ---
Date/Time of Note Date/Time of Note DATE: 01/10/17 TIME: 09:20 Assessment/Plan VTE Prophylaxis VTE Prophylaxis Intervention: other Lines/Catheters IV [facility]from [facility] Central Line Central line still needed: Yes Urinary Cath still in place: Yes Reason Cath still needed: urinary retention Assessment/Plan Chief Complaint/Hosp Course SUBJECTIVE DATA: the patient was extubated on 01/08; however, was in acute respiratory distress, so had to be re-intubated overnight. The patient did have an episode of emesis with possibility of aspiration. No other events noted. vent settings and imaging studies were reviewed d/w ICU nurse good uop weaned off pressors successfully no reports of melena, hematochezia, new rash, dyspnea, fever, chill or diaphoresis OBJECTIVE DATA: HEENT: Head is normocephalic. Pupils are reactive to light. NECK: Supple. HEART: Regular rate. LUNGS: Showed diminished breath sounds at the base. ABDOMEN: Soft. Nontender to palpation. No rebound or guarding. EXTREMITIES: Negative for clubbing, cyanosis. No edema. DERMATOLOGIC: Clean. No rashes. MUSCULOSKELETAL: No joint effusion. NEUROLOGIC: No focal deficits. MEDICATIONS, labs, previous orders, nurses' care plans: Reviewed. time of halfway: 40 min ASSESSMENT AND PLAN: 1. Ventilatory-dependent respiratory failure. The patient was re-intubated. ABG and chest x-rays were reviewed. We will continue to monitor. Follow up with Pulmonary. The patient is restarted on diuretic therapy. 2. Acute congestive heart failure exacerbation. will patient on diuretic therapy with close monitoring of her renal function and electrolytes. Follow up with Cardiology recommendations. 3. Sepsis status post shock. weaned off presser. Continue current antibiotic regimen. 4. Paroxysmal atrial fibrillation. Currently in sinus rhythm. 5. history of kidney transplant with nonoliguric acute kidney injury on top of chronic allograft failure. The patient's baseline creatinine is around 1.5 to 1.7 mg/dL. Etiology of acute kidney injury is secondary to acute tubular necrosis due to Code Arrest. The patient's renal function has remained stable in the last 24 hours. At this point, continue current treatment plan. Follow up Prograf level. Monitor closely. 6. History of end-stage renal disease, status post renal transplant with chronic allograft failure. The patient is currently in acute kidney injury as stated above. Continue current immunosuppressive regimen. Continue prednisone. Prograf level is pending. 7. Hypothyroidism. Continue Synthroid. 8. Anemia. Monitor H and H levels. 9. History of breast cancer with metastasis. Follow up with Oncology. 10. Diabetes. Continue current insulin regimen. 11. Pulmonary hypertension. 12. Anxiety, depression. 13. Mild hypernatremia. Continue to monitor. 14. Gastrointestinal and deep venous thrombosis prophylaxis. Continue proton pump inhibitor and heparin. 15. Nutrition. We will start the patient on tube feeding. Problems: Exam/Review of Systems Vital Signs Vitals Vital Signs Date Time Temp Pulse Resp B/P Pulse Ox O2 Delivery O2 Flow Rate FiO2 01/10/17 08:45 96 15 99 01/10/17 08:30 129/70 01/10/17 08:00 98.3 Mechanical Ventilator 01/10/17 08:00 40 01/07/17 10:45 4.0 Intake and Output 01/09/17 01/09/17 01/10/17 15:00 23:00 07:00 Intake Total 72.27 ml 276.65 ml 474.46 ml Output Total 202 ml 235 ml 200 ml Balance -129.73 ml 41.65 ml 274.46 ml Results Result Diagram: 01/10/17 0400 01/10/17 0400 Results 24 hrs Laboratory Tests Test 01/09/17 11:53 01/09/17 13:18 01/09/17 17:07 01/09/17 20:51 Prothrombin Time 16.0 H Prothrombin Time Ratio 1.3 INR International Normalized Ratio 1.27 Activated Partial Thromboplast Time 37.7 H Bedside Glucose 146 157 142 Test 01/10/17 00:50 01/10/17 04:00 01/10/17 04:55 Bedside Glucose 148 154 White Blood Count 8.6 Red Blood Count 2.87 L Hemoglobin 8.3 L Hematocrit 26.5 L Mean Corpuscular Volume 92.3 Mean Corpuscular Hemoglobin 28.9 L Mean Corpuscular Hemoglobin Concent 31.3 L Red Cell Distribution Width 15.2 H Platelet Count 232 Mean Platelet Volume 9.7 Neutrophils % 79.8 H Lymphocytes % 8.2 L Monocytes % 6.4 Eosinophils % 3.9 Basophils % 0.2 Nucleated Red Blood Cells % 0.0 Neutrophils # 6.8 Lymphocytes # 0.7 L Monocytes # 0.6 Eosinophils # 0.3 Basophils # 0.0 Nucleated Red Blood Cells # 0.0 Sodium Level 128 L Potassium Level 4.1 Chloride Level 93 L Carbon Dioxide Level 29 Anion Gap 10 Blood Urea Nitrogen 66 H Creatinine 2.53 H Glucose Level 138 # Calcium Level 9.2 Phosphorus Level 4.6 Magnesium Level 2.2 Medications Medications Current Medications Cefepime HCl (Maxipime 2gm/50 ml (Pmx)) 50 ml @ 100 mls/hr DAILY IVPB Last administered on 01/10/17 08:58; Admin Dose 100 MLS/HR; Start 01/05/17 at 02:30 Naloxone HCl (Narcan) 0.4 mg Q4 PRN IV SEDATION; Start 01/05/17 at 01:30 Vancomycin HCl (Vanco Iv Per Pharmacy) PER PHARMACY DOSING NOTE XX ; Start 01/05 at 02:00 Acetaminophen (Tylenol Tab) 650 mg Q6H PRN PO PAIN AND OR ELEVATED TEMP; Start 01/05/17 at 10:30 Apixaban (Eliquis) 2.5 mg BID PO Last administered on 01/09/17 20:52; Admin Dose 2.5 MG; Start 01/05/17 at 10:30 Ascorbic Acid (Vitamin C) 500 mg BID PO Last administered on 01/10/17 08:27; Admin Dose 500 MG; Start 01/05/17 at 10:30 Bisacodyl (Dulcolax Supp) 10 mg DAILY GA Last administered on 01/10/17 08:28; Admin Dose 10 MG; Start 01/06/17 at 09:00 Budesonide (Pulmicort (Neb)) 0.25 mg BID NEB Last administered on 01/09/17 19: 11; Admin Dose 0.25 MG; Start 01/05/17 at 10:30 Docusate Sodium (Colace) 100 mg BID PO Last administered on 01/09/17 20:51; Admin Dose 100 MG; Start 01/05/17 at 10:30 Fluticasone Propionate (Flonase 0.05% Nasal) 1 spray DAILY NASAL Last administered on 01/07/17 09:25; Admin Dose 1 SPRAY; Start 01/05/17 at 11:00 Fulvestrant (Faslodex) 500 mg Q28D IM ; Start 01/05/17 at 10:30; Status UNV Insulin Glargine (Lantus) 18 unit DAILY SC Last administered on 01/08/17 08:56 ; Admin Dose 18 UNIT; Start 01/05/17 at 10:30 Loratadine (Claritin) 10 mg DAILY PO Last administered on 01/10/17 08:28; Admin Dose 10 MG; Start 01/05/17 at 11:00 Magnesium Hydroxide (Milk Of Mag) 30 ml BID PRN PO CONSTIPATION; Start at 10:30 Magnesium Oxide (Mag-Ox 400) 400 mg DAILY PO Last administered on 01/10/17 08: 28; Admin Dose 400 MG; Start 01/05/17 at 10:30 Metoprolol Tartrate (Lopressor) 25 mg Q8 PO Last administered on 01/10/17 05: 04; Admin Dose 25 MG; Start 01/05/17 at 14:00 Mirtazapine (Remeron) 15 mg HS PO Last administered on 01/09/17 20:52; Admin Dose 15 MG; Start 01/05/17 at 21:00 Nitroglycerin (Nitroglycerin 2% Oint) 0.5 inch Q6 PRN TD CHEST PAIN; Start 03/13 at 10:30 Ondansetron HCl (Zofran Inj) 4 mg Q6H PRN IV NAUSEA Last administered on 21:31; Admin Dose 4 MG; Start 01/05/17 at 10:30 Sertraline HCl (Zoloft) 75 mg DAILY PO Last administered on 01/10/17 08:27; Admin Dose 75 MG; Start 01/05/17 at 10:30 Sildenafil Citrate (Revatio) 20 mg TID PO Last administered on 01/10/17 08:27 ; Admin Dose 20 MG; Start 01/05/17 at 13:00 Tacrolimus (Prograf) 2 mg QPM PO Last administered on 01/09/17 20:52; Admin Dose 2 MG; Start 01/05/17 at 21:00 Pantoprazole (Protonix Tab) 40 mg DAILY@06 PO Last administered on 01/10/17 05 :03; Admin Dose 40 MG; Start 01/06/17 at 06:00 Senna (Senokot) 1 tab HS PO Last administered on 01/09/17 20:52; Admin Dose 1 TAB; Start 01/05/17 at 21:00 Prednisone (Prednisone) 5 mg DAILY PO Last administered on 01/10/17 08:25; Admin Dose 5 MG; Start 01/05/17 at 12:00 Prednisone (Prednisone) 3 mg DAILY PO Last administered on 01/10/17 08:25; Admin Dose 3 MG; Start 01/05/17 at 12:00 Miscellaneous Information 1 ea NOTE XX ; Start 01/05/17 at 11:00 Glucose (Glutose) 15 gm Q15M PRN PO DECREASED GLUCOSE; Start 01/05/17 at 11:00 Glucose (Glutose) 22.5 gm Q15M PRN PO DECREASED GLUCOSE; Start 01/05/17 at 11: 00 Dextrose (D50w Syringe) 25 ml Q15M PRN IV DECREASED GLUCOSE Last administered on 01/09/17 04:45; Admin Dose 25 ML; Start 01/05/17 at 11:00 Dextrose (D50w Syringe) 50 ml Q15M PRN IV DECREASED GLUCOSE Last administered on 01/08/17 21:33; Admin Dose 50 ML; Start 01/05/17 at 11:00 Glucagon (Glucagen) 1 mg Q15M PRN IM DECREASED GLUCOSE; Start 01/05/17 at 11:00 Glucose (Glutose) 15 gm Q15M PRN BUCCAL DECREASED GLUCOSE; Start 01/05/17 at 11 :00 Oxcarbazepine (Trileptal) 600 mg BID PO Last administered on 01/10/17 08:26; Admin Dose 600 MG; Start 01/05/17 at 12:00 Insulin Aspart NOVOLOG *MILD* ALGORI... Q4 SC Last administered on 01/10/17 04 :58; Admin Dose 1 UNIT; Start 01/05/17 at 13:00 Fentanyl 100 ml @ 2.5 mls/hr TITRATE IV Last administered on 01/07/17 02:25; Admin Dose 7.5 MLS/HR; Start 01/06/17 at 09:30 Norepinephrine/ Dextrose (Levophed/D5W) 500 ml @ 0 mls/hr TITRATE IV ; Start 04/12 at 13:30 Bumetanide 1 mg 1 mg BID IV Last administered on 01/10/17 08:28; Admin Dose 1 MG; Start 01/08/17 at 09:00 Caspofungin 50 mg/ Sodium Chloride 250 ml @ 250 mls/hr Q24H IVPB Last administered on 01/09/17 15:06; Admin Dose 250 MLS/HR; Start 01/09/17 at 15:00 Propofol 100 ml @ 2.19 mls/hr Q12H IV Last administered on 01/10/17 01:50; Admin Dose 10.95 MLS/HR; Start 01/08/17 at 16:00 Dextrose (D5W) 1,000 ml @ 40 mls/hr Q24H IV Last administered on 01/09/17 20: 51; Admin Dose 40 MLS/HR; Start 01/08/17 at 18:00 Miscellaneous Information FULVESTRANT 250 MG/5 ML SYG: PLE... Q8H XX ; Start at 08:00 Vancomycin HCl/ Sodium Chloride (Vancocin/NS) 150 ml @ 75 mls/hr Q48H IVPB ; Start 01/11/17 at 06:00 MICHAEL GALICIA DO Jan 10, 2017 09:25
[2017-01-10] MEDS: BUDESONIDE (NEB) 0.25 MG/2 ML AMP NEB SCH ×2 (10:10→20:34)
[2017-01-10] MEDS: INSULIN GLARGINE [LANtus] 3 ML PEN SC SCH (10:20)
[2017-01-10] MEDS: BALSAM PERU/CASTOR OIL 60 GM TUBE TOP SCH (10:22)
--- NOTE | 2017-01-10 12:20 | CONS ---
Date/Time of Note Date/Time of Note DATE: 01/10/17 TIME: 12:14 Assessment/Plan Assessment/Plan Chief Complaint/Hosp Course ID PROGRESS NOTE TOTAL ABX DAY # CURRENT ABX=> Vanco IV + Cefepime + Cancidas 24H INTERVAL SUMMARY * POD #0 =>s/p bedside thora just now, tolerated well, post thora CXR just completed * Stable, awake, alert * 01/05 & 01/06 Micro: RESPIRATORY CULTURE Final Organism 1 NORMAL RESPIRATORY ROBINA QUANTITY 2+ Organism 2 YEAST,NOT NAYLA ALBICANS QUANTITY 3+ EXAM GENERAL: 71 yo F, awake, orally intubated HEENT: TTT-> Secute NECK: supple, full ROM CHEST: Course ABDOMEN: Soft, NT EXTREMITIES: WArm, no edema SKIN: No diaphoresis, no rash ID ASSESSMENT: 72 yo F admit [facility] ICU with: 1. Sepsis status post-shock. * 01/05 BCx (-) * 01/05 Urine Cx(-) 2. Acute respiratory failure. 3. Healthcare-associated pneumonia possibly aspirated. 4. Diabetes. 5. Hypertension. 6. History of kidney transplant, on immunosuppressive therapy. 7. History of metastatic breast cancer. 8. Diabetes. (-)MRSA Nares INVASIVES: P ABX ALLERGY: Tetracycline TOTAL ABX DAY # CURRENT ABX=> => Vanco IV + Cefepime + Cancidas ID PLAN 1. Continue current ABX, weaning per pulmonary . Problems: Consultation Date/Type/Reason Admit Date/Time Jan 05, 2017 at 00:15 Initial Consult Date 01/05/17 Type of Consultation: ID Referring Provider: SUSAN SIMENTAL DO Exam/Review of Systems Vital Signs Vitals Vital Signs Date Time Temp Pulse Resp B/P Pulse Ox O2 Delivery O2 Flow Rate FiO2 01/10/17 11:20 102 15 94 40 01/10/17 08:30 129/70 01/10/17 08:00 98.3 Mechanical Ventilator 01/07/17 10:45 4.0 Intake and Output 01/09/17 01/09/17 01/10/17 15:00 23:00 07:00 Intake Total 72.27 ml 276.65 ml 474.46 ml Output Total 202 ml 235 ml 200 ml Balance -129.73 ml 41.65 ml 274.46 ml Results Result Diagram: 01/10/170 9/16/17 0400 Results 24 hrs Laboratory Tests Test 01/09/17 13:18 01/09/17 17:07 01/09/17 20:51 01/10/17 00:50 Bedside Glucose 146 157 142 148 Test 01/10/17 04:00 01/10/17 04:55 01/10/17 09:51 White Blood Count 8.6 Red Blood Count 2.87 L Hemoglobin 8.3 L Hematocrit 26.5 L Mean Corpuscular Volume 92.3 Mean Corpuscular Hemoglobin 28.9 L Mean Corpuscular Hemoglobin Concent 31.3 L Red Cell Distribution Width 15.2 H Platelet Count 232 Mean Platelet Volume 9.7 Neutrophils % 79.8 H Lymphocytes % 8.2 L Monocytes % 6.4 Eosinophils % 3.9 Basophils % 0.2 Nucleated Red Blood Cells % 0.0 Neutrophils # 6.8 Lymphocytes # 0.7 L Monocytes # 0.6 Eosinophils # 0.3 Basophils # 0.0 Nucleated Red Blood Cells # 0.0 Sodium Level 128 L Potassium Level 4.1 Chloride Level 93 L Carbon Dioxide Level 29 Anion Gap 10 Blood Urea Nitrogen 66 H Creatinine 2.53 H Glucose Level 138 # Calcium Level 9.2 Phosphorus Level 4.6 Magnesium Level 2.2 Bedside Glucose 154 219 Medications Medications Current Medications Cefepime HCl (Maxipime 2gm/50 ml (Pmx)) 50 ml @ 100 mls/hr DAILY IVPB Last administered on 01/10/17 08:58; Admin Dose 100 MLS/HR; Start 01/05/17 at 02:30 Naloxone HCl (Narcan) 0.4 mg Q4 PRN IV SEDATION; Start 01/05/17 at 01:30 Vancomycin HCl (Vanco Iv Per Pharmacy) PER PHARMACY DOSING NOTE XX ; Start 01/05 at 02:00 Acetaminophen (Tylenol Tab) 650 mg Q6H PRN PO PAIN AND OR ELEVATED TEMP; Start 01/05/17 at 10:30 Apixaban (Eliquis) 2.5 mg BID PO Last administered on 01/09/17 20:52; Admin Dose 2.5 MG; Start 01/05/17 at 10:30 Ascorbic Acid (Vitamin C) 500 mg BID PO Last administered on 01/10/17 08:27; Admin Dose 500 MG; Start 01/05/17 at 10:30 Bisacodyl (Dulcolax Supp) 10 mg DAILY [place] Last administered on 01/10/17 08:28; Admin Dose 10 MG; Start 01/06/17 at 09:00 Budesonide (Pulmicort (Neb)) 0.25 mg BID NEB Last administered on 01/10/17 10: 10; Admin Dose 0.25 MG; Start 01/05/17 at 10:30 Docusate Sodium (Colace) 100 mg BID PO Last administered on 01/09/17 20:51; Admin Dose 100 MG; Start 01/05/17 at 10:30 Fluticasone Propionate (Flonase 0.05% Nasal) 1 spray DAILY NASAL Last administered on 01/07/17 09:25; Admin Dose 1 SPRAY; Start 01/05/17 at 11:00 Fulvestrant (Faslodex) 500 mg Q28D IM ; Start 01/05/17 at 10:30; Status UNV Insulin Glargine (Lantus) 18 unit DAILY SC Last administered on 01/10/17 10:20 ; Admin Dose 18 UNIT; Start 01/05/17 at 10:30 Loratadine (Claritin) 10 mg DAILY PO Last administered on 01/10/17 08:28; Admin Dose 10 MG; Start 01/05/17 at 11:00 Magnesium Hydroxide (Milk Of Mag) 30 ml BID PRN PO CONSTIPATION; Start at 10:30 Magnesium Oxide (Mag-Ox 400) 400 mg DAILY PO Last administered on 01/10/17 08: 28; Admin Dose 400 MG; Start 01/05/17 at 10:30 Metoprolol Tartrate (Lopressor) 25 mg Q8 PO Last administered on 01/10/17 05: 04; Admin Dose 25 MG; Start 01/05/17 at 14:00 Mirtazapine (Remeron) 15 mg HS PO Last administered on 01/09/17 20:52; Admin Dose 15 MG; Start 01/05/17 at 21:00 Nitroglycerin (Nitroglycerin 2% Oint) 0.5 inch Q6 PRN TD CHEST PAIN; Start 03/13 at 10:30 Ondansetron HCl (Zofran Inj) 4 mg Q6H PRN IV NAUSEA Last administered on 21:31; Admin Dose 4 MG; Start 01/05/17 at 10:30 Sertraline HCl (Zoloft) 75 mg DAILY PO Last administered on 01/10/17 08:27; Admin Dose 75 MG; Start 01/05/17 at 10:30 Sildenafil Citrate (Revatio) 20 mg TID PO Last administered on 01/10/17 08:27 ; Admin Dose 20 MG; Start 01/05/17 at 13:00 Tacrolimus (Prograf) 2 mg QPM PO Last administered on 01/09/17 20:52; Admin Dose 2 MG; Start 01/05/17 at 21:00 Pantoprazole (Protonix Tab) 40 mg DAILY@06 PO Last administered on 01/10/17 05 :03; Admin Dose 40 MG; Start 01/06/17 at 06:00 Senna (Senokot) 1 tab HS PO Last administered on 01/09/17 20:52; Admin Dose 1 TAB; Start 01/05/17 at 21:00 Prednisone (Prednisone) 5 mg DAILY PO Last administered on 01/10/17 08:25; Admin Dose 5 MG; Start 01/05/17 at 12:00 Prednisone (Prednisone) 3 mg DAILY PO Last administered on 01/10/17 08:25; Admin Dose 3 MG; Start 01/05/17 at 12:00 Miscellaneous Information 1 ea NOTE XX ; Start 01/05/17 at 11:00 Glucose (Glutose) 15 gm Q15M PRN PO DECREASED GLUCOSE; Start 01/05/17 at 11:00 Glucose (Glutose) 22.5 gm Q15M PRN PO DECREASED GLUCOSE; Start 01/05/17 at 11: 00 Dextrose (D50w Syringe) 25 ml Q15M PRN IV DECREASED GLUCOSE Last administered on 01/09/17 04:45; Admin Dose 25 ML; Start 01/05/17 at 11:00 Dextrose (D50w Syringe) 50 ml Q15M PRN IV DECREASED GLUCOSE Last administered on 01/08/17 21:33; Admin Dose 50 ML; Start 01/05/17 at 11:00 Glucagon (Glucagen) 1 mg Q15M PRN IM DECREASED GLUCOSE; Start 01/05/17 at 11:00 Glucose (Glutose) 15 gm Q15M PRN BUCCAL DECREASED GLUCOSE; Start 01/05/17 at 11 :00 Oxcarbazepine (Trileptal) 600 mg BID PO Last administered on 01/10/17 08:26; Admin Dose 600 MG; Start 01/05/17 at 12:00 Insulin Aspart NOVOLOG *MILD* ALGORI... Q4 SC Last administered on 01/10/17 10 :20; Admin Dose 2 UNIT; Start 01/05/17 at 13:00 Fentanyl 100 ml @ 2.5 mls/hr TITRATE IV Last administered on 01/07/17 02:25; Admin Dose 7.5 MLS/HR; Start 01/06/17 at 09:30 Norepinephrine/ Dextrose (Levophed/D5W) 500 ml @ 0 mls/hr TITRATE IV ; Start 04/12 at 13:30 Bumetanide 1 mg 1 mg BID IV Last administered on 01/10/17 08:28; Admin Dose 1 MG; Start 01/08/17 at 09:00 Caspofungin 50 mg/ Sodium Chloride 250 ml @ 250 mls/hr Q24H IVPB Last administered on 01/09/17 15:06; Admin Dose 250 MLS/HR; Start 01/09/17 at 15:00 Propofol 100 ml @ 2.19 mls/hr Q12H IV Last administered on 01/10/17 01:50; Admin Dose 10.95 MLS/HR; Start 01/08/17 at 16:00 Dextrose (D5W) 1,000 ml @ 40 mls/hr Q24H IV Last administered on 01/09/17 20: 51; Admin Dose 40 MLS/HR; Start 01/08/17 at 18:00 Miscellaneous Information FULVESTRANT 250 MG/5 ML SYG: PLE... Q8H XX ; Start at 08:00 Vancomycin HCl/ Sodium Chloride (Vancocin/NS) 150 ml @ 75 mls/hr Q48H IVPB ; Start 01/11/17 at 06:00 NELSON BRAXTON NP Jan 10, 2017 12:20
--- NOTE | 2017-01-10 12:47 | RADRPT ---
PROCEDURE: XR Chest. CLINICAL INDICATION: Status post thoracentesis TECHNIQUE: Single frontal chest x-ray. COMPARISON: 01/08/2017 FINDINGS: The right pleural effusion is significantly decreased, status post interval thoracentesis. There is no evidence of pneumothorax. The small left pleural effusion is minimally increased. There is persis tent moderate interstitial prominence throughout the left lung and right upper lobe subsegmental ate lectasis. The endotracheal tube and enteric tube are stable. The mediastinal surgical clips are pres ent. Left axillary surgical clips are also noted. IMPRESSION: 1. Interval significantly decreased right pleural effusion, status post thoracentesis. No evidence of pneumothorax. 2. Minimally increased left pleural effusion. Otherwise, no significant interval change. RPTAT: QQ .Tello Miller MD, Date Time Electronically viewed and signed by .Tello Miller MD, on 01/10/2017 12:46 .A/
[2017-01-10] MEDS ORDERED: LIDOCAINE 1% (MPF) 5 ML VIAL ONE (13:17)
[2017-01-10] MEDS: CASPOFUNGIN 50 MG in SOD CHLORIDE 0.9% 250 ML IVPB SCH (14:02)
[2017-01-10] MEDS: ONDANSETRON 4 MG INJ IV PRN (15:55)
[2017-01-10] MEDS: DEXTROSE 5%-0.9% NACL 1,000 ML IV SCH (16:50)
--- NOTE | 2017-01-10 17:29 | CONS ---
Date/Time of Note Date/Time of Note DATE: 01/10/17 TIME: 17:27 Consult Date/Type/Reason Admit Date/Time Jan 05, 2017 at 00:15 Initial Consult Date 01/05/17 Type of Consultation: Pulm/CCM Ordering Provider: SUSAN SIMENTAL DO Subjective No events. s/p thoracentesis. On vent. Objective Vital Signs Date Time Temp Pulse Resp B/P Pulse Ox O2 Delivery O2 Flow Rate FiO2 01/10/17 14:00 115 15 130/58 100 Mechanical Ventilator 01/10/17 12:00 98.5 01/10/17 11:20 40 01/07/17 10:45 4.0 Intake and Output 01/09/17 01/09/17 01/10/17 15:00 23:00 07:00 Intake Total 72.27 ml 276.65 ml 483.22 ml Output Total 202 ml 235 ml 200 ml Balance -129.73 ml 41.65 ml 283.22 ml Exam GENERAL: On examination, chronically ill-appearing lady, comfortable at rest, no acute distress. HEENT: Orally intubated. Dry mucous membranes. Pupils equal and react to light. HEART: S1, S2. No added sounds or murmurs. CHEST: Diminished air entry bilaterally. ABDOMEN: Soft, nontender. No guarding or rebound. EXTREMITIES: No cyanosis, clubbing. 1+ edema. Results/Medications Result Diagram: 01/10/17 0400 01/10/17 0400 Results 24 hrs Laboratory Tests Test 01/09/17 20:51 01/10/17 00:50 01/10/17 04:00 01/10/17 04:55 Bedside Glucose 142 148 154 White Blood Count 8.6 Red Blood Count 2.87 L Hemoglobin 8.3 L Hematocrit 26.5 L Mean Corpuscular Volume 92.3 Mean Corpuscular Hemoglobin 28.9 L Mean Corpuscular Hemoglobin Concent 31.3 L Red Cell Distribution Width 15.2 H Platelet Count 232 Mean Platelet Volume 9.7 Neutrophils % 79.8 H Lymphocytes % 8.2 L Monocytes % 6.4 Eosinophils % 3.9 Basophils % 0.2 Nucleated Red Blood Cells % 0.0 Neutrophils # 6.8 Lymphocytes # 0.7 L Monocytes # 0.6 Eosinophils # 0.3 Basophils # 0.0 Nucleated Red Blood Cells # 0.0 Sodium Level 128 L Potassium Level 4.1 Chloride Level 93 L Carbon Dioxide Level 29 Anion Gap 10 Blood Urea Nitrogen 66 H Creatinine 2.53 H Glucose Level 138 # Calcium Level 9.2 Phosphorus Level 4.6 Magnesium Level 2.2 Test 01/10/17 09:51 01/10/17 12:15 Bedside Glucose 219 247 H Medications Current Medications Cefepime HCl (Maxipime 2gm/50 ml (Pmx)) 50 ml @ 100 mls/hr DAILY IVPB Last administered on 01/10/17 08:58; Admin Dose 100 MLS/HR; Start 01/05/17 at 02:30 Naloxone HCl (Narcan) 0.4 mg Q4 PRN IV SEDATION; Start 01/05/17 at 01:30 Vancomycin HCl (Vanco Iv Per Pharmacy) PER PHARMACY DOSING NOTE XX ; Start 01/05 at 02:00 Acetaminophen (Tylenol Tab) 650 mg Q6H PRN PO PAIN AND OR ELEVATED TEMP; Start 01/05/17 at 10:30 Apixaban (Eliquis) 2.5 mg BID PO Last administered on 01/09/17 20:52; Admin Dose 2.5 MG; Start 01/05/17 at 10:30 Ascorbic Acid (Vitamin C) 500 mg BID PO Last administered on 01/10/17 08:27; Admin Dose 500 MG; Start 01/05/17 at 10:30 Bisacodyl (Dulcolax Supp) 10 mg DAILY [place] Last administered on 01/10/17 08:28; Admin Dose 10 MG; Start 01/06/17 at 09:00 Budesonide (Pulmicort (Neb)) 0.25 mg BID NEB Last administered on 01/10/17 10: 10; Admin Dose 0.25 MG; Start 01/05/17 at 10:30 Docusate Sodium (Colace) 100 mg BID PO Last administered on 01/09/17 20:51; Admin Dose 100 MG; Start 01/05/17 at 10:30 Fluticasone Propionate (Flonase 0.05% Nasal) 1 spray DAILY NASAL Last administered on 01/07/17 09:25; Admin Dose 1 SPRAY; Start 01/05/17 at 11:00 Fulvestrant (Faslodex) 500 mg Q28D IM ; Start 01/05/17 at 10:30; Status UNV Insulin Glargine (Lantus) 18 unit DAILY SC Last administered on 01/10/17 10:20 ; Admin Dose 18 UNIT; Start 01/05/17 at 10:30 Loratadine (Claritin) 10 mg DAILY PO Last administered on 01/10/17 08:28; Admin Dose 10 MG; Start 01/05/17 at 11:00 Magnesium Hydroxide (Milk Of Mag) 30 ml BID PRN PO CONSTIPATION; Start at 10:30 Magnesium Oxide (Mag-Ox 400) 400 mg DAILY PO Last administered on 01/10/17 08: 28; Admin Dose 400 MG; Start 01/05/17 at 10:30 Metoprolol Tartrate (Lopressor) 25 mg Q8 PO Last administered on 01/10/17 14: 00; Admin Dose 25 MG; Start 01/05/17 at 14:00 Mirtazapine (Remeron) 15 mg HS PO Last administered on 01/09/17 20:52; Admin Dose 15 MG; Start 01/05/17 at 21:00 Nitroglycerin (Nitroglycerin 2% Oint) 0.5 inch Q6 PRN TD CHEST PAIN; Start 03/13 at 10:30 Ondansetron HCl (Zofran Inj) 4 mg Q6H PRN IV NAUSEA Last administered on 15:55; Admin Dose 4 MG; Start 01/05/17 at 10:30 Sertraline HCl (Zoloft) 75 mg DAILY PO Last administered on 01/10/17 08:27; Admin Dose 75 MG; Start 01/05/17 at 10:30 Sildenafil Citrate (Revatio) 20 mg TID PO Last administered on 01/10/17 12:14 ; Admin Dose 20 MG; Start 01/05/17 at 13:00 Tacrolimus (Prograf) 2 mg QPM PO Last administered on 01/09/17 20:52; Admin Dose 2 MG; Start 01/05/17 at 21:00 Pantoprazole (Protonix Tab) 40 mg DAILY@06 PO Last administered on 01/10/17 05 :03; Admin Dose 40 MG; Start 01/06/17 at 06:00 Senna (Senokot) 1 tab HS PO Last administered on 01/09/17 20:52; Admin Dose 1 TAB; Start 01/05/17 at 21:00 Prednisone (Prednisone) 5 mg DAILY PO Last administered on 01/10/17 08:25; Admin Dose 5 MG; Start 01/05/17 at 12:00 Prednisone (Prednisone) 3 mg DAILY PO Last administered on 01/10/17 08:25; Admin Dose 3 MG; Start 01/05/17 at 12:00 Miscellaneous Information 1 ea NOTE XX ; Start 01/05/17 at 11:00 Glucose (Glutose) 15 gm Q15M PRN PO DECREASED GLUCOSE; Start 01/05/17 at 11:00 Glucose (Glutose) 22.5 gm Q15M PRN PO DECREASED GLUCOSE; Start 01/05/17 at 11: 00 Dextrose (D50w Syringe) 25 ml Q15M PRN IV DECREASED GLUCOSE Last administered on 01/09/17 04:45; Admin Dose 25 ML; Start 01/05/17 at 11:00 Dextrose (D50w Syringe) 50 ml Q15M PRN IV DECREASED GLUCOSE Last administered on 01/08/17 21:33; Admin Dose 50 ML; Start 01/05/17 at 11:00 Glucagon (Glucagen) 1 mg Q15M PRN IM DECREASED GLUCOSE; Start 01/05/17 at 11:00 Glucose (Glutose) 15 gm Q15M PRN BUCCAL DECREASED GLUCOSE; Start 01/05/17 at 11 :00 Oxcarbazepine (Trileptal) 600 mg BID PO Last administered on 01/10/17 08:26; Admin Dose 600 MG; Start 01/05/17 at 12:00 Insulin Aspart NOVOLOG *MILD* ALGORI... Q4 SC Last administered on 01/10/17 12 :19; Admin Dose 3 UNIT; Start 01/05/17 at 13:00 Fentanyl 100 ml @ 2.5 mls/hr TITRATE IV Last administered on 01/07/17 02:25; Admin Dose 7.5 MLS/HR; Start 01/06/17 at 09:30 Norepinephrine/ Dextrose (Levophed/D5W) 500 ml @ 0 mls/hr TITRATE IV ; Start 04/12 at 13:30 Bumetanide 1 mg 1 mg BID IV Last administered on 01/10/17 08:28; Admin Dose 1 MG; Start 01/08/17 at 09:00 Caspofungin 50 mg/ Sodium Chloride 250 ml @ 250 mls/hr Q24H IVPB Last administered on 01/10/17 14:02; Admin Dose 250 MLS/HR; Start 01/09/17 at 15:00 Propofol (Diprivan) 100 ml @ 2.19 mls/hr Q12H IV Last administered on 14:43; Admin Dose 4.38 MLS/HR; Start 01/08/17 at 16:00 Miscellaneous Information FULVESTRANT 250 MG/5 ML SYG: PLE... Q8H XX ; Start at 08:00 Vancomycin HCl 750 mg/Sodium Chloride 150 ml @ 75 mls/hr Q48H IVPB ; Start at 06:00 Dextrose/Sodium Chloride (D5-NS) 1,000 ml @ 60 mls/hr [id number] IV Last administered on 01/10/17 16:50; Admin Dose 60 MLS/HR; Start 01/10/17 at 16:00 Assessment/Plan Additional Assessment/Plan IMPRESSION: 1. Hypoxemic respiratory failure. Dense right lower lobe pneumonia versus effusion 2. Altered mental status secondary to opioids. Significant anxiety component. 3. History of renal transplant. Renal insufficiency. PLAN: 1. Pleural Fluid for routine testing/cytology 2. Wean as tolerated 3. Limit sedatives narcotics. 35 min cc time SRINIVAS NEGRO MD Jan 10, 2017 17:29
--- NOTE | 2017-01-10 19:04 | CONS ---
Date/Time of Note Date/Time of Note DATE: 01/10/17 TIME: 19:02 Assessment/Plan Assessment/Plan Chief Complaint/Hosp Course History of breast cancer with lung metastasis. The patient is on medical management. cont Faslodex as outpt Anemia. Monitor hemoglobin and hematocrit levels. [employer] s/p cardiopulmonary arrest: Most likely due to pulmonary arrest P afib: currently in NSR History of renal failure status post renal transplant Acute on chronic hypoxemic hypercapnic respiratory failure status post tracheostomy currently on the vent POST THORACENTESIS Shock: currently blood pressure has improved Chronic obstructive pulmonary disease exacerbation. Congestive heart failure exacerbation. Hypothyroidism. Diabetes. Continue current insulin regimen. Pulmonary hypertension. Depression. Problems: Consultation Date/Type/Reason Admit Date/Time Jan 05, 2017 at 00:15 Initial Consult Date 01/05/17 Type of Consultation: [facility] Referring Provider: SUSAN SIMENTAL DO 24 HR Interval Summary Free Text/Dictation all noted post thoracentesis no bleeding Exam/Review of Systems Vital Signs Vitals Vital Signs Date Time Temp Pulse Resp B/P Pulse Ox O2 Delivery O2 Flow Rate FiO2 01/10/17 17:05 94 12 98 30 01/10/17 14:00 130/58 Mechanical Ventilator 01/10/17 12:00 98.5 01/07/17 10:45 4.0 Intake and Output 01/09/17 01/09/17 01/10/17 15:00 23:00 07:00 Intake Total 72.27 ml 276.65 ml 483.22 ml Output Total 202 ml 235 ml 200 ml Balance -129.73 ml 41.65 ml 283.22 ml Exam ON VENT HEENT: Head is normocephalic. NECK: Supple. HEART: Regular rate. LUNGS: Show diminished breath sounds at the base. ABDOMEN: Soft, nontender to palpation. No rebound or guarding. EXTREMITIES: Negative for clubbing, cyanosis. No edema. DERMATOLOGIC: Clean. No rashes. MUSCULOSKELETAL: No joint effusion. NEUROLOGIC: No change in exam. + SCROTAL EDEMA NO NEW PETECHIA OR HEMATOMA Results Result Diagram: 01/10/17 0400 01/10/17 0400 Results 24 hrs Laboratory Tests Test 01/09/17 20:51 01/10/17 00:50 01/10/17 04:00 01/10/17 04:55 Bedside Glucose 142 148 154 White Blood Count 8.6 Red Blood Count 2.87 L Hemoglobin 8.3 L Hematocrit 26.5 L Mean Corpuscular Volume 92.3 Mean Corpuscular Hemoglobin 28.9 L Mean Corpuscular Hemoglobin Concent 31.3 L Red Cell Distribution Width 15.2 H Platelet Count 232 Mean Platelet Volume 9.7 Neutrophils % 79.8 H Lymphocytes % 8.2 L Monocytes % 6.4 Eosinophils % 3.9 Basophils % 0.2 Nucleated Red Blood Cells % 0.0 Neutrophils # 6.8 Lymphocytes # 0.7 L Monocytes # 0.6 Eosinophils # 0.3 Basophils # 0.0 Nucleated Red Blood Cells # 0.0 Sodium Level 128 L Potassium Level 4.1 Chloride Level 93 L Carbon Dioxide Level 29 Anion Gap 10 Blood Urea Nitrogen 66 H Creatinine 2.53 H Glucose Level 138 # Calcium Level 9.2 Phosphorus Level 4.6 Magnesium Level 2.2 Test 01/10/17 09:51 01/10/17 12:15 Bedside Glucose 219 247 H Medications Medications Current Medications Cefepime HCl (Maxipime 2gm/50 ml (Pmx)) 50 ml @ 100 mls/hr DAILY IVPB Last administered on 01/10/17 08:58; Admin Dose 100 MLS/HR; Start 01/05/17 at 02:30 Naloxone HCl (Narcan) 0.4 mg Q4 PRN IV SEDATION; Start 01/05/17 at 01:30 Vancomycin HCl (Vanco Iv Per Pharmacy) PER PHARMACY DOSING NOTE XX ; Start 01/05 at 02:00 Acetaminophen (Tylenol Tab) 650 mg Q6H PRN PO PAIN AND OR ELEVATED TEMP; Start 01/05/17 at 10:30 Apixaban (Eliquis) 2.5 mg BID PO Last administered on 01/09/17 20:52; Admin Dose 2.5 MG; Start 01/05/17 at 10:30 Ascorbic Acid (Vitamin C) 500 mg BID PO Last administered on 01/10/17 08:27; Admin Dose 500 MG; Start 01/05/17 at 10:30 Bisacodyl (Dulcolax Supp) 10 mg DAILY [place] Last administered on 01/10/17 08:28; Admin Dose 10 MG; Start 01/06/17 at 09:00 Budesonide (Pulmicort (Neb)) 0.25 mg BID NEB Last administered on 01/10/17 10: 10; Admin Dose 0.25 MG; Start 01/05/17 at 10:30 Docusate Sodium (Colace) 100 mg BID PO Last administered on 01/09/17 20:51; Admin Dose 100 MG; Start 01/05/17 at 10:30 Fluticasone Propionate (Flonase 0.05% Nasal) 1 spray DAILY NASAL Last administered on 01/07/17 09:25; Admin Dose 1 SPRAY; Start 01/05/17 at 11:00 Fulvestrant (Faslodex) 500 mg Q28D IM ; Start 01/05/17 at 10:30; Status UNV Insulin Glargine (Lantus) 18 unit DAILY SC Last administered on 01/10/17 10:20 ; Admin Dose 18 UNIT; Start 01/05/17 at 10:30 Loratadine (Claritin) 10 mg DAILY PO Last administered on 01/10/17 08:28; Admin Dose 10 MG; Start 01/05/17 at 11:00 Magnesium Hydroxide (Milk Of Mag) 30 ml BID PRN PO CONSTIPATION; Start at 10:30 Magnesium Oxide (Mag-Ox 400) 400 mg DAILY PO Last administered on 01/10/17 08: 28; Admin Dose 400 MG; Start 01/05/17 at 10:30 Metoprolol Tartrate (Lopressor) 25 mg Q8 PO Last administered on 01/10/17 14: 00; Admin Dose 25 MG; Start 01/05/17 at 14:00 Mirtazapine (Remeron) 15 mg HS PO Last administered on 01/09/17 20:52; Admin Dose 15 MG; Start 01/05/17 at 21:00 Nitroglycerin (Nitroglycerin 2% Oint) 0.5 inch Q6 PRN TD CHEST PAIN; Start 03/13 at 10:30 Ondansetron HCl (Zofran Inj) 4 mg Q6H PRN IV NAUSEA Last administered on 15:55; Admin Dose 4 MG; Start 01/05/17 at 10:30 Sertraline HCl (Zoloft) 75 mg DAILY PO Last administered on 01/10/17 08:27; Admin Dose 75 MG; Start 01/05/17 at 10:30 Sildenafil Citrate (Revatio) 20 mg TID PO Last administered on 01/10/17 12:14 ; Admin Dose 20 MG; Start 01/05/17 at 13:00 Tacrolimus (Prograf) 2 mg QPM PO Last administered on 01/09/17 20:52; Admin Dose 2 MG; Start 01/05/17 at 21:00 Pantoprazole (Protonix Tab) 40 mg DAILY@06 PO Last administered on 01/10/17 05 :03; Admin Dose 40 MG; Start 01/06/17 at 06:00 Senna (Senokot) 1 tab HS PO Last administered on 01/09/17 20:52; Admin Dose 1 TAB; Start 01/05/17 at 21:00 Prednisone (Prednisone) 5 mg DAILY PO Last administered on 01/10/17 08:25; Admin Dose 5 MG; Start 01/05/17 at 12:00 Prednisone (Prednisone) 3 mg DAILY PO Last administered on 01/10/17 08:25; Admin Dose 3 MG; Start 01/05/17 at 12:00 Miscellaneous Information 1 ea NOTE XX ; Start 01/05/17 at 11:00 Glucose (Glutose) 15 gm Q15M PRN PO DECREASED GLUCOSE; Start 01/05/17 at 11:00 Glucose (Glutose) 22.5 gm Q15M PRN PO DECREASED GLUCOSE; Start 01/05/17 at 11: 00 Dextrose (D50w Syringe) 25 ml Q15M PRN IV DECREASED GLUCOSE Last administered on 01/09/17 04:45; Admin Dose 25 ML; Start 01/05/17 at 11:00 Dextrose (D50w Syringe) 50 ml Q15M PRN IV DECREASED GLUCOSE Last administered on 01/08/17 21:33; Admin Dose 50 ML; Start 01/05/17 at 11:00 Glucagon (Glucagen) 1 mg Q15M PRN IM DECREASED GLUCOSE; Start 01/05/17 at 11:00 Glucose (Glutose) 15 gm Q15M PRN BUCCAL DECREASED GLUCOSE; Start 01/05/17 at 11 :00 Oxcarbazepine (Trileptal) 600 mg BID PO Last administered on 01/10/17 08:26; Admin Dose 600 MG; Start 01/05/17 at 12:00 Insulin Aspart NOVOLOG *MILD* ALGORI... Q4 SC Last administered on 01/10/17 12 :19; Admin Dose 3 UNIT; Start 01/05/17 at 13:00 Fentanyl 100 ml @ 2.5 mls/hr TITRATE IV Last administered on 01/07/17 02:25; Admin Dose 7.5 MLS/HR; Start 01/06/17 at 09:30 Norepinephrine/ Dextrose (Levophed/D5W) 500 ml @ 0 mls/hr TITRATE IV ; Start 04/12 at 13:30 Bumetanide 1 mg 1 mg BID IV Last administered on 01/10/17 08:28; Admin Dose 1 MG; Start 01/08/17 at 09:00 Caspofungin 50 mg/ Sodium Chloride 250 ml @ 250 mls/hr Q24H IVPB Last administered on 01/10/17 14:02; Admin Dose 250 MLS/HR; Start 01/09/17 at 15:00 Propofol (Diprivan) 100 ml @ 2.19 mls/hr Q12H IV Last administered on 14:43; Admin Dose 4.38 MLS/HR; Start 01/08/17 at 16:00 Miscellaneous Information FULVESTRANT 250 MG/5 ML SYG: PLE... Q8H XX ; Start at 08:00 Vancomycin HCl 750 mg/Sodium Chloride 150 ml @ 75 mls/hr Q48H IVPB ; Start at 06:00 Dextrose/Sodium Chloride (D5-NS) 1,000 ml @ 60 mls/hr [id number] IV Last administered on 01/10/17 16:50; Admin Dose 60 MLS/HR; Start 01/10/17 at 16:00 SHANICE DAVENPORT MD Jan 10, 2017 19:04
[2017-01-10 20:30] LABS: FLD MN% 74.6 %; FLD PMN% 25.4 %; FLD RBC 0 /uL; FLD WBC 55 /cmm
[2017-01-10 20:41] LABS: FLD TYPE RIGHT PLEURAL FLUID
[2017-01-10 20:42] LABS: FLD CLARITY HAZY; FLD COLOR YELLOW
[2017-01-10 20:50] LABS: FLUID LD 190 U/L; FLUID TOTAL PROTEIN < 2.0 g/dl; FLUID TYPE FLUID
[2017-01-10] MEDS: SENNA TAB PO SCH (21:13)
[2017-01-10] MEDS: MIRTAZAPINE 15 MG TAB PO SCH (21:15)
--- NOTE | 2017-01-10 21:22 | RADRPT ---
PROCEDURE: Ultrasound guided thoracentesis CLINICAL INDICATION: Pleural effusion TECHNIQUE: The risks benefits and alternatives of the procedure were explained to the patient. In formed written consent was obtained. A time-out was performed. The overlying skin of the right low er lateral chest was prepped and draped in the usual fashion. 5 cc of Xylocaine was injected locall y for pain control. Under ultrasound guidance, a 5-Barb[place] catheter was introduced into the right pl eural space without difficulty. COMPARISON: None available FINDINGS: 850 cc of clear yellow fluid was aspirated from the right pleural space. The fluid was sent to the l ab for further analysis. IMPRESSION: 1. Successful right chest ultrasound guided thoracentesis. 2. No immediate complications occurred. RPTAT: QQ .Tello Miller MD, Date Time Electronically viewed and signed by .Tello Miller MD, on 01/10/2017 12:41 .A/
[2017-01-11] VITALS (66 sets, daily range): BP systolic 79–165; BP diastolic 42–118; PULSE 67–121; RESP 12–27
[2017-01-11] MEDS: INSULIN ASPART [NOVOLOG] 3 ML PEN SC SCH ×6 (01:00→20:35)
[2017-01-11] MEDS: ALBUTEROL 18 GM INHALER INH SCH ×4 (01:16→19:17)
[2017-01-11] MEDS: IPRATROPIUM (HFA) 12.9 GM INHALER INH SCH ×4 (01:16→19:20)
[2017-01-11 05:45] LABS: ABNORMAL IP MESSAGE 1; BASOPHILS % 0.1 % (0.0-2.0); EOSINOPHILS # 0.3 10^3/ul (0.0-0.5); EOSINOPHILS % 2.8 % (0.0-7.0); HEMOGLOBIN 8.9 g/dl (12.0-16.0); LYMPHOCYTES # 0.6 10^3/ul (0.8-2.9); LYMPHOCYTES % 5.8 % (15.0-51.0); MEAN CORPUSCULAR VOLUME 90.9 fl (82.0-101.0); MEAN PLATELET VOLUME 9.8 fl (7.4-10.4); MONOCYTE # 0.6 10^3/ul (0.3-0.9); NEUTROPHIL # 8.2 10^3/ul (1.6-7.5); NEUTROPHILS % 82.9 % (39.0-77.0); PLATELET COUNT 267 10^3/UL (140-415); RED BLOOD COUNT 2.97 10^6/ul (4.20-5.40); WHITE BLOOD COUNT 9.9 10^3/ul (4.8-10.8)
[2017-01-11 05:54] LABS: POSITIVE DIFF @See below
[2017-01-11] MEDS: VANCOMYCIN 750 MG in SOD CHLORIDE 0.9% 150 ML IVPB SCH (05:59)
[2017-01-11] MEDS: PANTOPRAZOLE (EC) 40 MG TAB PO SCH (05:59)
[2017-01-11] MEDS: METOPROLOL 25 MG TAB PO SCH ×3 (06:01→23:25)
[2017-01-11 06:29] LABS: CALCIUM 9.2 mg/dl (8.4-10.2); CREATININE 2.41 mg/dl (0.44-1.00); MAGNESIUM 2.2 mg/dl (1.7-2.5); PHOSPHORUS 4.5 mg/dl (2.5-4.9); POTASSIUM 3.8 mmol/L (3.5-5.1)
[2017-01-11] MEDS: LEVOTHYROXINE 75 MCG TAB PO SCH (07:47)
[2017-01-11] MEDS: [UNRECOGNIZED DRUG - REMARK] XX SCH ×4 (08:00→23:35)
--- NOTE | 2017-01-11 08:52 | PN ---
Date/Time of Note Date/Time of Note DATE: 01/11/17 TIME: 08:51 Assessment/Plan VTE Prophylaxis VTE Prophylaxis Intervention: other Lines/Catheters IV [facility]atheter Type (from [facility]): Central Line Central line still needed: Yes Urinary Cath still in place: Yes Reason Cath still needed: urinary retention Assessment/Plan Chief Complaint/Hosp Course SUBJECTIVE DATA: the patient was extubated on 01/08; however, was in acute respiratory distress, so had to be re-intubated overnight. The patient did have an episode of emesis with possibility of aspiration. No other events noted. vent settings and imaging studies were reviewed d/w ICU nurse garima uop weaned off pressors successfully s/p paracentesis on 01/09 no reports of melena, hematochezia, new rash, dyspnea, fever, chill or diaphoresis OBJECTIVE DATA: HEENT: Head is normocephalic. Pupils are reactive to light. NECK: Supple. HEART: Regular rate. LUNGS: Showed diminished breath sounds at the base. ABDOMEN: Soft. Nontender to palpation. No rebound or guarding. EXTREMITIES: Negative for clubbing, cyanosis. No edema. DERMATOLOGIC: Clean. No rashes. MUSCULOSKELETAL: No joint effusion. NEUROLOGIC: No focal deficits. MEDICATIONS, labs, previous orders, nurses' care plans: Reviewed. time of skilled nursing: 37 min ASSESSMENT AND PLAN: 1. Ventilatory-dependent respiratory failure. The patient was re-intubated. ABG and chest x-rays were reviewed. We will continue to monitor. Follow up with Pulmonary. The patient is restarted on diuretic therapy. 2. Acute congestive heart failure exacerbation. will patient on diuretic therapy with close monitoring of her renal function and electrolytes. Follow up with Cardiology recommendations. 3. Sepsis status post shock. weaned off presser. Continue current antibiotic regimen. 4. Paroxysmal atrial fibrillation. Currently in sinus rhythm. 5. history of kidney transplant with nonoliguric acute kidney injury on top of chronic allograft failure. The patient's baseline creatinine is around 1.5 to 1.7 mg/dL. Etiology of acute kidney injury is secondary to acute tubular necrosis due to Code Arrest. The patient's renal function has remained stable in the last 24 hours. At this point, continue current treatment plan. Follow up Prograf level. Monitor closely. 6. History of end-stage renal disease, status post renal transplant with chronic allograft failure. The patient is currently in acute kidney injury as stated above. Continue current immunosuppressive regimen. Continue prednisone. Prograf level is pending. 7. Hypothyroidism. Continue Synthroid. 8. Anemia. Monitor H and H levels. 9. History of breast cancer with metastasis. Follow up with Oncology. 10. Diabetes. Continue current insulin regimen. 11. Pulmonary hypertension. 12. Anxiety, depression. 13. Mild hypernatremia. Continue to monitor. 14. Gastrointestinal and deep venous thrombosis prophylaxis. Continue proton pump inhibitor and heparin. 15. Nutrition. continue tube feeding. 16. pleural effusion: s/p thoracentesis Problems: Exam/Review of Systems Vital Signs Vitals Vital Signs Date Time Temp Pulse Resp B/P Pulse Ox O2 Delivery O2 Flow Rate FiO2 01/11/17 06:00 86 12 142/68 99 Mechanical Ventilator 01/11/17 05:35 30 01/11/17 04:00 98.8 01/07/17 10:45 4.0 Intake and Output 01/10/17 01/10/17 01/11/17 15:00 23:00 07:00 Intake Total 346.94 ml 455.04 ml 650.04 ml Output Total 350 ml 355 ml 230 ml Balance -3.06 ml 100.04 ml 420.04 ml Results Result Diagram: 01/11/17 0500 01/11/17 0500 Results 24 hrs Laboratory Tests Test 01/10/17 09:51 01/10/17 11:00 01/10/17 12:15 01/10/17 21:05 Bedside Glucose 219 247 H 164 Body Fluid Type FLUID Body Fluid Volume 875.0 Body Fluid Color YELLOW Body Fluid Appearance HAZY Body Fluid WBC 55 Body Fluid RBC (Auto) 0 Body Fluid Polynuclear WBCs (%) 25.4 Body Fluid Mononuclear Cells % Auto 74.6 Body Fluid Total Protein < 2.0 Body Fluid Lactate Dehydrogenase 190 Test 01/11/17 01:35 01/11/17 05:00 01/11/17 05:39 Bedside Glucose 94 119 White Blood Count 9.9 Red Blood Count 2.97 L Hemoglobin 8.9 L Hematocrit 27.0 L Mean Corpuscular Volume 90.9 Mean Corpuscular Hemoglobin 30.0 Mean Corpuscular Hemoglobin Concent 33.0 Red Cell Distribution Width 15.0 H Platelet Count 267 Mean Platelet Volume 9.8 Neutrophils % 82.9 H Lymphocytes % 5.8 L Monocytes % 6.0 Eosinophils % 2.8 Basophils % 0.1 Nucleated Red Blood Cells % 0.0 Neutrophils # 8.2 H Lymphocytes # 0.6 L Monocytes # 0.6 Eosinophils # 0.3 Basophils # 0.0 Nucleated Red Blood Cells # 0.0 Sodium Level 129 L Potassium Level 3.8 Chloride Level 94 L Carbon Dioxide Level 29 Anion Gap 10 Blood Urea Nitrogen 70 H Creatinine 2.41 H Glucose Level 105 Calcium Level 9.2 Phosphorus Level 4.5 Magnesium Level 2.2 Medications Medications Current Medications Cefepime HCl (Maxipime 2gm/50 ml (Pmx)) 50 ml @ 100 mls/hr DAILY IVPB Last administered on 01/10/17 08:58; Admin Dose 100 MLS/HR; Start 01/05/17 at 02:30 Naloxone HCl (Narcan) 0.4 mg Q4 PRN IV SEDATION; Start 01/05/17 at 01:30 Vancomycin HCl (Vanco Iv Per Pharmacy) PER PHARMACY DOSING NOTE XX ; Start 01/05 at 02:00 Acetaminophen (Tylenol Tab) 650 mg Q6H PRN PO PAIN AND OR ELEVATED TEMP; Start 01/05/17 at 10:30 Apixaban (Eliquis) 2.5 mg BID PO Last administered on 01/10/17 21:19; Admin Dose 2.5 MG; Start 01/05/17 at 10:30 Ascorbic Acid (Vitamin C) 500 mg BID PO Last administered on 01/10/17 21:15; Admin Dose 500 MG; Start 01/05/17 at 10:30 Bisacodyl (Dulcolax Supp) 10 mg DAILY [place] Last administered on 01/10/17 08:28; Admin Dose 10 MG; Start 01/06/17 at 09:00 Budesonide (Pulmicort (Neb)) 0.25 mg BID NEB Last administered on 01/10/17 20: 34; Admin Dose 0.25 MG; Start 01/05/17 at 10:30 Docusate Sodium (Colace) 100 mg BID PO Last administered on 01/10/17 21:13; Admin Dose 100 MG; Start 01/05/17 at 10:30 Fluticasone Propionate (Flonase 0.05% Nasal) 1 spray DAILY NASAL Last administered on 01/07/17 09:25; Admin Dose 1 SPRAY; Start 01/05/17 at 11:00 Fulvestrant (Faslodex) 500 mg Q28D IM ; Start 01/05/17 at 10:30; Status UNV Insulin Glargine (Lantus) 18 unit DAILY SC Last administered on 01/10/17 10:20 ; Admin Dose 18 UNIT; Start 01/05/17 at 10:30 Loratadine (Claritin) 10 mg DAILY PO Last administered on 01/10/17 08:28; Admin Dose 10 MG; Start 01/05/17 at 11:00 Magnesium Hydroxide (Milk Of Mag) 30 ml BID PRN PO CONSTIPATION; Start at 10:30 Magnesium Oxide (Mag-Ox 400) 400 mg DAILY PO Last administered on 01/10/17 08: 28; Admin Dose 400 MG; Start 01/05/17 at 10:30 Metoprolol Tartrate (Lopressor) 25 mg Q8 PO Last administered on 01/11/17 06: 01; Admin Dose 25 MG; Start 01/05/17 at 14:00 Mirtazapine (Remeron) 15 mg HS PO Last administered on 01/10/17 21:15; Admin Dose 15 MG; Start 01/05/17 at 21:00 Nitroglycerin (Nitroglycerin 2% Oint) 0.5 inch Q6 PRN TD CHEST PAIN; Start 03/13 at 10:30 Ondansetron HCl (Zofran Inj) 4 mg Q6H PRN IV NAUSEA Last administered on 15:55; Admin Dose 4 MG; Start 01/05/17 at 10:30 Sertraline HCl (Zoloft) 75 mg DAILY PO Last administered on 01/10/17 08:27; Admin Dose 75 MG; Start 01/05/17 at 10:30 Sildenafil Citrate (Revatio) 20 mg TID PO Last administered on 01/10/17 21:19 ; Admin Dose 20 MG; Start 01/05/17 at 13:00 Tacrolimus (Prograf) 2 mg QPM PO Last administered on 01/10/17 21:15; Admin Dose 2 MG; Start 01/05/17 at 21:00 Pantoprazole (Protonix Tab) 40 mg DAILY@06 PO Last administered on 01/11/17 05 :59; Admin Dose 40 MG; Start 01/06/17 at 06:00 Senna (Senokot) 1 tab HS PO Last administered on 01/10/17 21:13; Admin Dose 1 TAB; Start 01/05/17 at 21:00 Prednisone (Prednisone) 5 mg DAILY PO Last administered on 01/10/17 08:25; Admin Dose 5 MG; Start 01/05/17 at 12:00 Prednisone (Prednisone) 3 mg DAILY PO Last administered on 01/10/17 08:25; Admin Dose 3 MG; Start 01/05/17 at 12:00 Miscellaneous Information 1 ea NOTE XX ; Start 01/05/17 at 11:00 Glucose (Glutose) 15 gm Q15M PRN PO DECREASED GLUCOSE; Start 01/05/17 at 11:00 Glucose (Glutose) 22.5 gm Q15M PRN PO DECREASED GLUCOSE; Start 01/05/17 at 11: 00 Dextrose (D50w Syringe) 25 ml Q15M PRN IV DECREASED GLUCOSE Last administered on 01/09/17 04:45; Admin Dose 25 ML; Start 01/05/17 at 11:00 Dextrose (D50w Syringe) 50 ml Q15M PRN IV DECREASED GLUCOSE Last administered on 01/08/17 21:33; Admin Dose 50 ML; Start 01/05/17 at 11:00 Glucagon (Glucagen) 1 mg Q15M PRN IM DECREASED GLUCOSE; Start 01/05/17 at 11:00 Glucose (Glutose) 15 gm Q15M PRN BUCCAL DECREASED GLUCOSE; Start 01/05/17 at 11 :00 Oxcarbazepine (Trileptal) 600 mg BID PO Last administered on 01/10/17 21:13; Admin Dose 600 MG; Start 01/05/17 at 12:00 Insulin Aspart NOVOLOG *MILD* ALGORI... Q4 SC Last administered on 01/10/17 21 :07; Admin Dose 1 UNIT; Start 01/05/17 at 13:00 Fentanyl 100 ml @ 2.5 mls/hr TITRATE IV Last administered on 01/07/17 02:25; Admin Dose 7.5 MLS/HR; Start 01/06/17 at 09:30 Norepinephrine/ Dextrose (Levophed/D5W) 500 ml @ 0 mls/hr TITRATE IV ; Start 04/12 at 13:30 Bumetanide 1 mg 1 mg BID IV Last administered on 01/10/17 21:12; Admin Dose 1 MG; Start 01/08/17 at 09:00 Caspofungin 50 mg/ Sodium Chloride 250 ml @ 250 mls/hr Q24H IVPB Last administered on 01/10/17 14:02; Admin Dose 250 MLS/HR; Start 01/09/17 at 15:00 Propofol (Diprivan) 100 ml @ 2.19 mls/hr Q12H IV Last administered on 14:43; Admin Dose 4.38 MLS/HR; Start 01/08/17 at 16:00 Miscellaneous Information FULVESTRANT 250 MG/5 ML SYG: PLE... Q8H XX ; Start at 08:00 Vancomycin HCl 750 mg/Sodium Chloride 150 ml @ 75 mls/hr Q48H IVPB Last administered on 01/11/17 05:59; Admin Dose 75 MLS/HR; Start 01/11/17 at 06:00 Dextrose/Sodium Chloride (D5-NS) 1,000 ml @ 60 mls/hr [id number] IV Last administered on 01/10/17 16:50; Admin Dose 60 MLS/HR; Start 01/10/17 at 16:00 MICHAEL GALICIA DO Jan 11, 2017 08:52
[2017-01-11] MEDS: BUMETANIDE 1 MG INJ IV SCH ×2 (09:00→20:32)
[2017-01-11] MEDS: SILDENAFIL 20 MG TAB PO SCH ×3 (09:00→20:33)
[2017-01-11] MEDS: CEFEPIME 2GM/50 ML (PMX) 50 ML IVPB SCH (09:01)
[2017-01-11] MEDS: TACROLIMUS 1 MG CAP PO SCH ×2 (09:01→20:33)
[2017-01-11] MEDS: BISACODYL 10 MG SUPP PR SCH (09:01)
[2017-01-11] MEDS: DOCUSATE SODIUM 100 MG CAP PO SCH ×2 (09:01→20:32)
[2017-01-11] MEDS: APIXABAN 5 MG TABLET PO SCH ×2 (09:01→20:32)
[2017-01-11] MEDS: SERTRALINE 50 MG TAB PO SCH (09:01)
[2017-01-11] MEDS: MAGNESIUM OXIDE 400 MG TAB PO SCH (09:01)
[2017-01-11] MEDS: predniSONE 1 MG TAB PO SCH (09:02)
[2017-01-11] MEDS: LORATADINE 10 MG TAB PO SCH (09:02)
[2017-01-11] MEDS: ASCORBIC ACID 500 MG TAB PO SCH ×2 (09:02→20:33)
[2017-01-11] MEDS: predniSONE 5 MG TAB PO SCH (09:02)
[2017-01-11] MEDS: OXCARBAZEPINE 300 MG TAB PO SCH ×2 (09:03→20:33)
[2017-01-11] MEDS: INSULIN GLARGINE [LANtus] 3 ML PEN SC SCH (09:18)
[2017-01-11] MEDS: FLUTICASONE 0.05% 16 GM NAS SPRAY NASAL SCH (09:19)
[2017-01-11] MEDS: DEXTROSE 5%-0.9% NACL 1,000 ML IV SCH ×2 (09:20→12:06)
[2017-01-11] MEDS: BALSAM PERU/CASTOR OIL 60 GM TUBE TOP SCH (09:20)
[2017-01-11] MEDS: BUDESONIDE (NEB) 0.25 MG/2 ML AMP NEB SCH ×2 (09:35→19:23)
--- NOTE | 2017-01-11 10:45 | CONS ---
Date/Time of Note Date/Time of Note DATE: 01/11/17 TIME: 10:44 Assessment/Plan Assessment/Plan Chief Complaint/Hosp Course History of breast cancer with lung metastasis. The patient is on medical management. cont Faslodex as outpt Anemia. Monitor hemoglobin and hematocrit levels. [employer] s/p cardiopulmonary arrest: Most likely due to pulmonary arrest P afib: currently in NSR History of renal failure status post renal transplant Acute on chronic hypoxemic hypercapnic respiratory failure status post tracheostomy currently on the vent POST THORACENTESIS AWAIT CYTOLOGY Shock: currently blood pressure has improved Chronic obstructive pulmonary disease exacerbation. Congestive heart failure exacerbation. Hypothyroidism. Diabetes. Continue current insulin regimen. Pulmonary hypertension. Depression. Problems: Consultation Date/Type/Reason Admit Date/Time Jan 05, 2017 at 00:15 Initial Consult Date 01/05/17 Type of Consultation: [facility] Referring Provider: SUSAN SIMENTAL DO 24 HR Interval Summary Free Text/Dictation CYTOLOGY- P Exam/Review of Systems Vital Signs Vitals Vital Signs Date Time Temp Pulse Resp B/P Pulse Ox O2 Delivery O2 Flow Rate FiO2 01/11/17 09:15 86 12 116/70 98 Mechanical Ventilator 01/11/17 07:30 98.6 01/11/17 05:35 30 01/07/17 10:45 4.0 Intake and Output 01/10/17 01/10/17 01/11/17 15:00 23:00 07:00 Intake Total 346.94 ml 455.04 ml 650.04 ml Output Total 350 ml 355 ml 230 ml Balance -3.06 ml 100.04 ml 420.04 ml Exam HEENT: Head is normocephalic. NECK: Supple. HEART: Regular rate. LUNGS: Show diminished breath sounds at the base. ABDOMEN: Soft, nontender to palpation. No rebound or guarding. EXTREMITIES: Negative for clubbing, cyanosis. No edema. DERMATOLOGIC: Clean. No rashes. MUSCULOSKELETAL: No joint effusion. NEUROLOGIC: No change in exam. + SCROTAL EDEMA NO NEW PETECHIA OR HEMATOMA Results Result Diagram: 01/11/17 0500 01/11/17 0500 Results 24 hrs Laboratory Tests Test 01/10/17 11:00 01/10/17 12:15 01/10/17 21:05 01/11/17 01:35 Body Fluid Type FLUID Body Fluid Volume 875.0 Body Fluid Color YELLOW Body Fluid Appearance HAZY Body Fluid WBC 55 Body Fluid RBC (Auto) 0 Body Fluid Polynuclear WBCs (%) 25.4 Body Fluid Mononuclear Cells % Auto 74.6 Body Fluid Total Protein < 2.0 Body Fluid Lactate Dehydrogenase 190 Bedside Glucose 247 H 164 94 Test 01/11/17 05:00 01/11/17 05:39 01/11/17 08:54 01/11/17 09:00 White Blood Count 9.9 Red Blood Count 2.97 L Hemoglobin 8.9 L Hematocrit 27.0 L Mean Corpuscular Volume 90.9 Mean Corpuscular Hemoglobin 30.0 Mean Corpuscular Hemoglobin Concent 33.0 Red Cell Distribution Width 15.0 H Platelet Count 267 Mean Platelet Volume 9.8 Neutrophils % 82.9 H Lymphocytes % 5.8 L Monocytes % 6.0 Eosinophils % 2.8 Basophils % 0.1 Nucleated Red Blood Cells % 0.0 Neutrophils # 8.2 H Lymphocytes # 0.6 L Monocytes # 0.6 Eosinophils # 0.3 Basophils # 0.0 Nucleated Red Blood Cells # 0.0 Sodium Level 129 L Potassium Level 3.8 Chloride Level 94 L Carbon Dioxide Level 29 Anion Gap 10 Blood Urea Nitrogen 70 H Creatinine 2.41 H Glucose Level 105 Calcium Level 9.2 Phosphorus Level 4.5 Magnesium Level 2.2 Bedside Glucose 119 118 116 Medications Medications Current Medications Cefepime HCl (Maxipime 2gm/50 ml (Pmx)) 50 ml @ 100 mls/hr DAILY IVPB Last administered on 01/11/17 09:01; Admin Dose 100 MLS/HR; Start 01/05/17 at 02:30 Naloxone HCl (Narcan) 0.4 mg Q4 PRN IV SEDATION; Start 01/05/17 at 01:30 Vancomycin HCl (Vanco Iv Per Pharmacy) PER PHARMACY DOSING NOTE XX ; Start 01/05 at 02:00 Acetaminophen (Tylenol Tab) 650 mg Q6H PRN PO PAIN AND OR ELEVATED TEMP; Start 01/05/17 at 10:30 Apixaban (Eliquis) 2.5 mg BID PO Last administered on 01/11/17 09:01; Admin Dose 2.5 MG; Start 01/05/17 at 10:30 Ascorbic Acid (Vitamin C) 500 mg BID PO Last administered on 01/11/17 09:02; Admin Dose 500 MG; Start 01/05/17 at 10:30 Bisacodyl (Dulcolax Supp) 10 mg DAILY [place] Last administered on 01/11/17 09:01; Admin Dose 10 MG; Start 01/06/17 at 09:00 Budesonide (Pulmicort (Neb)) 0.25 mg BID NEB Last administered on 01/10/17 20: 34; Admin Dose 0.25 MG; Start 01/05/17 at 10:30 Docusate Sodium (Colace) 100 mg BID PO Last administered on 01/11/17 09:01; Admin Dose 100 MG; Start 01/05/17 at 10:30 Fluticasone Propionate (Flonase 0.05% Nasal) 1 spray DAILY NASAL Last administered on 01/11/17 09:19; Admin Dose 1 SPRAY; Start 01/05/17 at 11:00 Fulvestrant (Faslodex) 500 mg Q28D IM ; Start 01/05/17 at 10:30; Status UNV Insulin Glargine (Lantus) 18 unit DAILY SC Last administered on 01/11/17 09:18 ; Admin Dose 18 UNIT; Start 01/05/17 at 10:30 Loratadine (Claritin) 10 mg DAILY PO Last administered on 01/11/17 09:02; Admin Dose 10 MG; Start 01/05/17 at 11:00 Magnesium Hydroxide (Milk Of Mag) 30 ml BID PRN PO CONSTIPATION; Start at 10:30 Magnesium Oxide (Mag-Ox 400) 400 mg DAILY PO Last administered on 01/11/17 09: 01; Admin Dose 400 MG; Start 01/05/17 at 10:30 Metoprolol Tartrate (Lopressor) 25 mg Q8 PO Last administered on 01/11/17 06: 01; Admin Dose 25 MG; Start 01/05/17 at 14:00 Mirtazapine (Remeron) 15 mg HS PO Last administered on 01/10/17 21:15; Admin Dose 15 MG; Start 01/05/17 at 21:00 Nitroglycerin (Nitroglycerin 2% Oint) 0.5 inch Q6 PRN TD CHEST PAIN; Start 03/13 at 10:30 Ondansetron HCl (Zofran Inj) 4 mg Q6H PRN IV NAUSEA Last administered on 15:55; Admin Dose 4 MG; Start 01/05/17 at 10:30 Sertraline HCl (Zoloft) 75 mg DAILY PO Last administered on 01/11/17 09:01; Admin Dose 75 MG; Start 01/05/17 at 10:30 Sildenafil Citrate (Revatio) 20 mg TID PO Last administered on 01/10/17 21:19 ; Admin Dose 20 MG; Start 01/05/17 at 13:00 Tacrolimus (Prograf) 2 mg QPM PO Last administered on 01/10/17 21:15; Admin Dose 2 MG; Start 01/05/17 at 21:00 Pantoprazole (Protonix Tab) 40 mg DAILY@06 PO Last administered on 01/11/17 05 :59; Admin Dose 40 MG; Start 01/06/17 at 06:00 Senna (Senokot) 1 tab HS PO Last administered on 01/10/17 21:13; Admin Dose 1 TAB; Start 01/05/17 at 21:00 Prednisone (Prednisone) 5 mg DAILY PO Last administered on 01/11/17 09:02; Admin Dose 5 MG; Start 01/05/17 at 12:00 Prednisone (Prednisone) 3 mg DAILY PO Last administered on 01/11/17 09:02; Admin Dose 3 MG; Start 01/05/17 at 12:00 Miscellaneous Information 1 ea NOTE XX ; Start 01/05/17 at 11:00 Glucose (Glutose) 15 gm Q15M PRN PO DECREASED GLUCOSE; Start 01/05/17 at 11:00 Glucose (Glutose) 22.5 gm Q15M PRN PO DECREASED GLUCOSE; Start 01/05/17 at 11: 00 Dextrose (D50w Syringe) 25 ml Q15M PRN IV DECREASED GLUCOSE Last administered on 01/09/17 04:45; Admin Dose 25 ML; Start 01/05/17 at 11:00 Dextrose (D50w Syringe) 50 ml Q15M PRN IV DECREASED GLUCOSE Last administered on 01/08/17 21:33; Admin Dose 50 ML; Start 01/05/17 at 11:00 Glucagon (Glucagen) 1 mg Q15M PRN IM DECREASED GLUCOSE; Start 01/05/17 at 11:00 Glucose (Glutose) 15 gm Q15M PRN BUCCAL DECREASED GLUCOSE; Start 01/05/17 at 11 :00 Oxcarbazepine (Trileptal) 600 mg BID PO Last administered on 01/11/17 09:03; Admin Dose 600 MG; Start 01/05/17 at 12:00 Insulin Aspart NOVOLOG *MILD* ALGORI... Q4 [place] Last administered on 01/10/17 21 :07; Admin Dose 1 UNIT; Start 01/05/17 at 13:00 Fentanyl 100 ml @ 2.5 mls/hr TITRATE IV Last administered on 01/07/17 02:25; Admin Dose 7.5 MLS/HR; Start 01/06/17 at 09:30 Norepinephrine/ Dextrose (Levophed/D5W) 500 ml @ 0 mls/hr TITRATE IV ; Start 04/12 at 13:30 Bumetanide 1 mg 1 mg BID IV Last administered on 01/10/17 21:12; Admin Dose 1 MG; Start 01/08/17 at 09:00 Caspofungin 50 mg/ Sodium Chloride 250 ml @ 250 mls/hr Q24H IVPB Last administered on 01/10/17 14:02; Admin Dose 250 MLS/HR; Start 01/09/17 at 15:00 Propofol (Diprivan) 100 ml @ 2.19 mls/hr Q12H IV Last administered on 14:43; Admin Dose 4.38 MLS/HR; Start 01/08/17 at 16:00 Miscellaneous Information FULVESTRANT 250 MG/5 ML SYG: PLE... Q8H XX ; Start at 08:00 Vancomycin HCl 750 mg/Sodium Chloride 150 ml @ 75 mls/hr Q48H IVPB Last administered on 01/11/17 05:59; Admin Dose 75 MLS/HR; Start 01/11/17 at 06:00 Dextrose/Sodium Chloride (D5-NS) 1,000 ml @ 60 mls/hr [id number] IV Last administered on 01/11/17 09:20; Admin Dose 60 MLS/HR; Start 01/10/17 at 16:00 SHANICE DAVENPORT MD Jan 11, 2017 10:45
[2017-01-11] MEDS: PROPOFOL 100 ML IV SCH (11:58)
--- NOTE | 2017-01-11 12:50 | CONS ---
Date/Time of Note Date/Time of Note DATE: 01/11/17 TIME: 12:49 Consult Date/Type/Reason Admit Date/Time Jan 05, 2017 at 00:15 Initial Consult Date 01/05/17 Type of Consultation: cardiogly Ordering Provider: SUSAN SIMENTAL DO Subjective CARDIOLOGY FOLLOW UP NOTE: D/W Staff and rhythm was reviewed. pt has remained in Afib. HR has been stable however. pt remains intubated on vent NOW. pt was extubated on 01/07/17 but had to be re- intubated again the same night due to resp distress even on BIPAP. NO reports of any chest pain or pressure but sedated and nonverbal OBJECTIVE: General: intubated on vent. HEENT: NC/AT. pupils are equal. round. NECK: NO JVD. no stridor. CV: RRR. systolic murmur; no gallop or rubs. PULM: no wheezing, + mild rhonchi. GI: SOFT, NT, ND, no rebound or guarding Extremity: trace B/L LE edema. no clubbing. neuro: opens her eyes to verbal stimuli . . Psych: unable to assess rectal: deferred : normal ECHO 12/16/16: Personally reviewed 1. Normal left ventricular systolic function. Normal left ventricular cavity size. Moderate concentric left ventricular hypertrophy. Ejection fraction is visually estimated at 65 %. Abnormal Diastolic Function. 2. There is moderate enlargement of left atrium. 3. Mild mitral leaflet calcification. Mild mitral annular calcification. Trace mitral regurgitation. 4. Aortic sclerosis without stenosis. Trace aortic valve regurgitation. 5. Normal appearance of the tricuspid valve. Estimated peak PA systolic pressure 38 mmHg. There is mild tricuspid regurgitation. Objective Vital Signs Date Time Temp Pulse Resp B/P Pulse Ox O2 Delivery O2 Flow Rate FiO2 01/11/17 12:30 103 12 99/54 96 Mechanical Ventilator 01/11/17 12:00 98.8 01/11/17 05:35 30 01/07/17 10:45 4.0 Intake and Output 01/10/17 01/10/17 01/11/17 15:00 23:00 07:00 Intake Total 346.94 ml 455.04 ml 650.04 ml Output Total 350 ml 355 ml 230 ml Balance -3.06 ml 100.04 ml 420.04 ml Results/Medications Result Diagram: 01/11/17 0500 01/11/17 0500 Results 24 hrs Laboratory Tests Test 01/10/17 21:05 01/11/17 01:35 01/11/17 05:00 01/11/17 05:39 Bedside Glucose 164 94 119 White Blood Count 9.9 Red Blood Count 2.97 L Hemoglobin 8.9 L Hematocrit 27.0 L Mean Corpuscular Volume 90.9 Mean Corpuscular Hemoglobin 30.0 Mean Corpuscular Hemoglobin Concent 33.0 Red Cell Distribution Width 15.0 H Platelet Count 267 Mean Platelet Volume 9.8 Neutrophils % 82.9 H Lymphocytes % 5.8 L Monocytes % 6.0 Eosinophils % 2.8 Basophils % 0.1 Nucleated Red Blood Cells % 0.0 Neutrophils # 8.2 H Lymphocytes # 0.6 L Monocytes # 0.6 Eosinophils # 0.3 Basophils # 0.0 Nucleated Red Blood Cells # 0.0 Sodium Level 129 L Potassium Level 3.8 Chloride Level 94 L Carbon Dioxide Level 29 Anion Gap 10 Blood Urea Nitrogen 70 H Creatinine 2.41 H Glucose Level 105 Calcium Level 9.2 Phosphorus Level 4.5 Magnesium Level 2.2 Test 01/11/17 08:54 01/11/17 09:00 01/11/17 12:43 Bedside Glucose 118 116 184 Medications Current Medications Cefepime HCl (Maxipime 2gm/50 ml (Pmx)) 50 ml @ 100 mls/hr DAILY IVPB Last administered on 01/11/17 09:01; Admin Dose 100 MLS/HR; Start 01/05/17 at 02:30 Naloxone HCl (Narcan) 0.4 mg Q4 PRN IV SEDATION; Start 01/05/17 at 01:30 Vancomycin HCl (Vanco Iv Per Pharmacy) PER PHARMACY DOSING NOTE XX ; Start 01/05 at 02:00 Acetaminophen (Tylenol Tab) 650 mg Q6H PRN PO PAIN AND OR ELEVATED TEMP; Start 01/05/17 at 10:30 Apixaban (Eliquis) 2.5 mg BID PO Last administered on 01/11/17 09:01; Admin Dose 2.5 MG; Start 01/05/17 at 10:30 Ascorbic Acid (Vitamin C) 500 mg BID PO Last administered on 01/11/17 09:02; Admin Dose 500 MG; Start 01/05/17 at 10:30 Bisacodyl (Dulcolax Supp) 10 mg DAILY PA Last administered on 01/11/17 09:01; Admin Dose 10 MG; Start 01/06/17 at 09:00 Budesonide (Pulmicort (Neb)) 0.25 mg BID NEB Last administered on 01/11/17 09: 35; Admin Dose 0.25 MG; Start 01/05/17 at 10:30 Docusate Sodium (Colace) 100 mg BID PO Last administered on 01/11/17 09:01; Admin Dose 100 MG; Start 01/05/17 at 10:30 Fluticasone Propionate (Flonase 0.05% Nasal) 1 spray DAILY NASAL Last administered on 01/11/17 09:19; Admin Dose 1 SPRAY; Start 01/05/17 at 11:00 Fulvestrant (Faslodex) 500 mg Q28D IM ; Start 01/05/17 at 10:30; Status UNV Insulin Glargine (Lantus) 18 unit DAILY SC Last administered on 01/11/17 09:18 ; Admin Dose 18 UNIT; Start 01/05/17 at 10:30 Loratadine (Claritin) 10 mg DAILY PO Last administered on 01/11/17 09:02; Admin Dose 10 MG; Start 01/05/17 at 11:00 Magnesium Hydroxide (Milk Of Mag) 30 ml BID PRN PO CONSTIPATION; Start at 10:30 Magnesium Oxide (Mag-Ox 400) 400 mg DAILY PO Last administered on 01/11/17 09: 01; Admin Dose 400 MG; Start 01/05/17 at 10:30 Metoprolol Tartrate (Lopressor) 25 mg Q8 PO Last administered on 01/11/17 06: 01; Admin Dose 25 MG; Start 01/05/17 at 14:00 Mirtazapine (Remeron) 15 mg HS PO Last administered on 01/10/17 21:15; Admin Dose 15 MG; Start 01/05/17 at 21:00 Nitroglycerin (Nitroglycerin 2% Oint) 0.5 inch Q6 PRN TD CHEST PAIN; Start 03/13 at 10:30 Ondansetron HCl (Zofran Inj) 4 mg Q6H PRN IV NAUSEA Last administered on 15:55; Admin Dose 4 MG; Start 01/05/17 at 10:30 Sertraline HCl (Zoloft) 75 mg DAILY PO Last administered on 01/11/17 09:01; Admin Dose 75 MG; Start 01/05/17 at 10:30 Sildenafil Citrate (Revatio) 20 mg TID PO Last administered on 01/10/17 21:19 ; Admin Dose 20 MG; Start 01/05/17 at 13:00 Tacrolimus (Prograf) 2 mg QPM PO Last administered on 01/10/17 21:15; Admin Dose 2 MG; Start 01/05/17 at 21:00 Pantoprazole (Protonix Tab) 40 mg DAILY@06 PO Last administered on 01/11/17 05 :59; Admin Dose 40 MG; Start 01/06/17 at 06:00 Senna (Senokot) 1 tab HS PO Last administered on 01/10/17 21:13; Admin Dose 1 TAB; Start 01/05/17 at 21:00 Prednisone (Prednisone) 5 mg DAILY PO Last administered on 01/11/17 09:02; Admin Dose 5 MG; Start 01/05/17 at 12:00 Prednisone (Prednisone) 3 mg DAILY PO Last administered on 01/11/17 09:02; Admin Dose 3 MG; Start 01/05/17 at 12:00 Miscellaneous Information 1 ea NOTE XX ; Start 01/05/17 at 11:00 Glucose (Glutose) 15 gm Q15M PRN PO DECREASED GLUCOSE; Start 01/05/17 at 11:00 Glucose (Glutose) 22.5 gm Q15M PRN PO DECREASED GLUCOSE; Start 01/05/17 at 11: 00 Dextrose (D50w Syringe) 25 ml Q15M PRN IV DECREASED GLUCOSE Last administered on 01/09/17 04:45; Admin Dose 25 ML; Start 01/05/17 at 11:00 Dextrose (D50w Syringe) 50 ml Q15M PRN IV DECREASED GLUCOSE Last administered on 01/08/17 21:33; Admin Dose 50 ML; Start 01/05/17 at 11:00 Glucagon (Glucagen) 1 mg Q15M PRN IM DECREASED GLUCOSE; Start 01/05/17 at 11:00 Glucose (Glutose) 15 gm Q15M PRN BUCCAL DECREASED GLUCOSE; Start 01/05/17 at 11 :00 Oxcarbazepine (Trileptal) 600 mg BID PO Last administered on 01/11/17 09:03; Admin Dose 600 MG; Start 01/05/17 at 12:00 Insulin Aspart NOVOLOG *MILD* ALGORI... Q4 SC Last administered on 01/10/17 21 :07; Admin Dose 1 UNIT; Start 01/05/17 at 13:00 Fentanyl 100 ml @ 2.5 mls/hr TITRATE IV Last administered on 01/07/17 02:25; Admin Dose 7.5 MLS/HR; Start 01/06/17 at 09:30 Norepinephrine/ Dextrose (Levophed/D5W) 500 ml @ 0 mls/hr TITRATE IV ; Start 04/12 at 13:30 Bumetanide 1 mg 1 mg BID IV Last administered on 01/10/17 21:12; Admin Dose 1 MG; Start 01/08/17 at 09:00 Caspofungin 50 mg/ Sodium Chloride 250 ml @ 250 mls/hr Q24H IVPB Last administered on 01/10/17 14:02; Admin Dose 250 MLS/HR; Start 01/09/17 at 15:00 Propofol (Diprivan) 100 ml @ 2.19 mls/hr Q12H IV Last administered on 11:58; Admin Dose 3.504 MLS/HR; Start 01/08/17 at 16:00 Miscellaneous Information FULVESTRANT 250 MG/5 ML SYG: PLE... Q8H XX ; Start at 08:00 Vancomycin HCl 750 mg/Sodium Chloride 150 ml @ 75 mls/hr Q48H IVPB Last administered on 01/11/17 05:59; Admin Dose 75 MLS/HR; Start 01/11/17 at 06:00 Dextrose/Sodium Chloride (D5-NS) 1,000 ml @ 60 mls/hr [id number] IV Last administered on 01/11/17 12:06; Admin Dose 60 MLS/HR; Start 01/10/17 at 16:00 Assessment/Plan Chief Complaint/Hosp Course Assessment: 1. s/p cardiopulmonary arrest: Most likely due to pulmonary arrest 2. P afib: 3. History of renal failure status post renal transplant: now with KATI on CKD 4. Acute on chronic hypoxemic hypercapnic respiratory failure status post reintubation: currently on the vent 5. Shock: resolved now. currently hypertensive, but controlled. 6. ANEMIA 7. breast cancer 8. history of HTN: 9. anxiety 10. DM 11. Hypothyroidism: on synthroid. 12. pleural effusion : s/p thoracentesis Recommendations: cont eliquis as long as no signs of active bleeding and no surgery/ procedure is planned. vent support for now anti- rejection medications to be adjusted as per renal team cont DM control thyroid supplement cont betablocker . correct lytes prn cont tele monitoring cont ICU care. Thank you for this referral I will continue to follow along with you. AUGUSTINA MALDONADO MD [facility] Problems: AUGUSTINA MALDONADO MD Jan 11, 2017 12:50
[2017-01-11] MEDS: CASPOFUNGIN 50 MG in SOD CHLORIDE 0.9% 250 ML IVPB SCH (15:10)
--- NOTE | 2017-01-11 15:31 | CONS ---
Date/Time of Note Date/Time of Note DATE: 01/11/17 TIME: 15:26 Assessment/Plan Assessment/Plan Chief Complaint/Hosp Course ID PROGRESS NOTE TOTAL ABX DAY # CURRENT ABX=> Vanco IV + Cefepime + Cancidas 24H INTERVAL SUMMARY * POD #1 =>s/p bedside thora 01/10/17 GRAM STAIN Final POLYMORPH. LEUKOCYTE NONE SEEN . NO ORGANISM SEEN BODY FLUID CULTURE Preliminary * Orally intubated/Vented,, opens eyes, generalized weakness noted * 01/05 & 01/06 Micro: RESPIRATORY CULTURE Final Organism 1 NORMAL RESPIRATORY ROBINA QUANTITY 2+ Organism 2 YEAST,NOT NAYLA ALBICANS QUANTITY 3+ EXAM GENERAL: 71 yo F, awake, orally intubated HEENT: TTT-> Secute NECK: supple, full ROM CHEST: Course ABDOMEN: Soft, NT EXTREMITIES: WArm, no edema SKIN: No diaphoresis, no rash ID ASSESSMENT: 72 yo F admit [facility] ICU with: 1. Sepsis status post-shock. * 01/05 BCx (-) * 01/05 Urine Cx(-) 2. Acute respiratory failure. 3. Healthcare-associated pneumonia possibly aspirated. 4. Pleural effusions -> s/p Thora 01/10 5. History of metastatic breast cancer. 6. History of kidney transplant, on immunosuppressive therapy. 7. Diabetes. 8. Hypertension. (-)MRSA Nares INVASIVES: PICC, NGT, ETT ABX ALLERGY: Tetracycline TOTAL ABX DAY # CURRENT ABX=> => Vanco IV + Cefepime + Cancidas ID PLAN 1. Continue current ABX, weaning per pulmonary . Problems: Consultation Date/Type/Reason Admit Date/Time Jan 05, 2017 at 00:15 Initial Consult Date 01/05/17 Type of Consultation: id Referring Provider: SUSAN SIMENTAL DO Exam/Review of Systems Vital Signs Vitals Vital Signs Date Time Temp Pulse Resp B/P Pulse Ox O2 Delivery O2 Flow Rate FiO2 01/11/17 15:15 88 13 113/59 98 Mechanical Ventilator 01/11/17 12:00 98.8 01/11/17 12:00 30 01/07/17 10:45 4.0 Intake and Output 01/10/17 01/10/17 01/11/17 15:00 23:00 07:00 Intake Total 346.94 ml 455.04 ml 650.04 ml Output Total 350 ml 355 ml 230 ml Balance -3.06 ml 100.04 ml 420.04 ml Results Result Diagram: 01/11/17 0500 01/11/17 0500 Results 24 hrs Laboratory Tests Test 01/10/17 21:05 01/11/17 01:35 01/11/17 05:00 01/11/17 05:39 Bedside Glucose 164 94 119 White Blood Count 9.9 Red Blood Count 2.97 L Hemoglobin 8.9 L Hematocrit 27.0 L Mean Corpuscular Volume 90.9 Mean Corpuscular Hemoglobin 30.0 Mean Corpuscular Hemoglobin Concent 33.0 Red Cell Distribution Width 15.0 H Platelet Count 267 Mean Platelet Volume 9.8 Neutrophils % 82.9 H Lymphocytes % 5.8 L Monocytes % 6.0 Eosinophils % 2.8 Basophils % 0.1 Nucleated Red Blood Cells % 0.0 Neutrophils # 8.2 H Lymphocytes # 0.6 L Monocytes # 0.6 Eosinophils # 0.3 Basophils # 0.0 Nucleated Red Blood Cells # 0.0 Sodium Level 129 L Potassium Level 3.8 Chloride Level 94 L Carbon Dioxide Level 29 Anion Gap 10 Blood Urea Nitrogen 70 H Creatinine 2.41 H Glucose Level 105 Calcium Level 9.2 Phosphorus Level 4.5 Magnesium Level 2.2 Test 01/11/17 08:54 01/11/17 09:00 01/11/17 12:43 Bedside Glucose 118 116 184 Medications Medications Current Medications Cefepime HCl (Maxipime 2gm/50 ml (Pmx)) 50 ml @ 100 mls/hr DAILY IVPB Last administered on 01/11/17 09:01; Admin Dose 100 MLS/HR; Start 01/05/17 at 02:30 Naloxone HCl (Narcan) 0.4 mg Q4 PRN IV SEDATION; Start 01/05/17 at 01:30 Vancomycin HCl (Vanco Iv Per Pharmacy) PER PHARMACY DOSING NOTE XX ; Start 01/05 at 02:00 Acetaminophen (Tylenol Tab) 650 mg Q6H PRN PO PAIN AND OR ELEVATED TEMP; Start 01/05/17 at 10:30 Apixaban (Eliquis) 2.5 mg BID PO Last administered on 01/11/17 09:01; Admin Dose 2.5 MG; Start 01/05/17 at 10:30 Ascorbic Acid (Vitamin C) 500 mg BID PO Last administered on 01/11/17 09:02; Admin Dose 500 MG; Start 01/05/17 at 10:30 Bisacodyl (Dulcolax Supp) 10 mg DAILY PA Last administered on 01/11/17 09:01; Admin Dose 10 MG; Start 01/06/17 at 09:00 Budesonide (Pulmicort (Neb)) 0.25 mg BID NEB Last administered on 01/11/17 09: 35; Admin Dose 0.25 MG; Start 01/05/17 at 10:30 Docusate Sodium (Colace) 100 mg BID PO Last administered on 01/11/17 09:01; Admin Dose 100 MG; Start 01/05/17 at 10:30 Fluticasone Propionate (Flonase 0.05% Nasal) 1 spray DAILY NASAL Last administered on 01/11/17 09:19; Admin Dose 1 SPRAY; Start 01/05/17 at 11:00 Fulvestrant (Faslodex) 500 mg Q28D IM ; Start 01/05/17 at 10:30; Status UNV Insulin Glargine (Lantus) 18 unit DAILY SC Last administered on 01/11/17 09:18 ; Admin Dose 18 UNIT; Start 01/05/17 at 10:30 Loratadine (Claritin) 10 mg DAILY PO Last administered on 01/11/17 09:02; Admin Dose 10 MG; Start 01/05/17 at 11:00 Magnesium Hydroxide (Milk Of Mag) 30 ml BID PRN PO CONSTIPATION; Start at 10:30 Magnesium Oxide (Mag-Ox 400) 400 mg DAILY PO Last administered on 01/11/17 09: 01; Admin Dose 400 MG; Start 01/05/17 at 10:30 Metoprolol Tartrate (Lopressor) 25 mg Q8 PO Last administered on 01/11/17 14: 51; Admin Dose 25 MG; Start 01/05/17 at 14:00 Mirtazapine (Remeron) 15 mg HS PO Last administered on 01/10/17 21:15; Admin Dose 15 MG; Start 01/05/17 at 21:00 Nitroglycerin (Nitroglycerin 2% Oint) 0.5 inch Q6 PRN TD CHEST PAIN; Start 03/13 at 10:30 Ondansetron HCl (Zofran Inj) 4 mg Q6H PRN IV NAUSEA Last administered on 15:55; Admin Dose 4 MG; Start 01/05/17 at 10:30 Sertraline HCl (Zoloft) 75 mg DAILY PO Last administered on 01/11/17 09:01; Admin Dose 75 MG; Start 01/05/17 at 10:30 Sildenafil Citrate (Revatio) 20 mg TID PO Last administered on 01/11/17 12:49 ; Admin Dose 20 MG; Start 01/05/17 at 13:00 Tacrolimus (Prograf) 2 mg QPM PO Last administered on 01/10/17 21:15; Admin Dose 2 MG; Start 01/05/17 at 21:00 Pantoprazole (Protonix Tab) 40 mg DAILY@06 PO Last administered on 01/11/17 05 :59; Admin Dose 40 MG; Start 01/06/17 at 06:00 Senna (Senokot) 1 tab HS PO Last administered on 01/10/17 21:13; Admin Dose 1 TAB; Start 01/05/17 at 21:00 Prednisone (Prednisone) 5 mg DAILY PO Last administered on 01/11/17 09:02; Admin Dose 5 MG; Start 01/05/17 at 12:00 Prednisone (Prednisone) 3 mg DAILY PO Last administered on 01/11/17 09:02; Admin Dose 3 MG; Start 01/05/17 at 12:00 Miscellaneous Information 1 ea NOTE XX ; Start 01/05/17 at 11:00 Glucose (Glutose) 15 gm Q15M PRN PO DECREASED GLUCOSE; Start 01/05/17 at 11:00 Glucose (Glutose) 22.5 gm Q15M PRN PO DECREASED GLUCOSE; Start 01/05/17 at 11: 00 Dextrose (D50w Syringe) 25 ml Q15M PRN IV DECREASED GLUCOSE Last administered on 01/09/17 04:45; Admin Dose 25 ML; Start 01/05/17 at 11:00 Dextrose (D50w Syringe) 50 ml Q15M PRN IV DECREASED GLUCOSE Last administered on 01/08/17 21:33; Admin Dose 50 ML; Start 01/05/17 at 11:00 Glucagon (Glucagen) 1 mg Q15M PRN IM DECREASED GLUCOSE; Start 01/05/17 at 11:00 Glucose (Glutose) 15 gm Q15M PRN BUCCAL DECREASED GLUCOSE; Start 01/05/17 at 11 :00 Oxcarbazepine (Trileptal) 600 mg BID PO Last administered on 01/11/17 09:03; Admin Dose 600 MG; Start 01/05/17 at 12:00 Insulin Aspart NOVOLOG *MILD* ALGORI... Q4 SC Last administered on 01/11/17 12 :52; Admin Dose 2 UNIT; Start 01/05/17 at 13:00 Fentanyl 100 ml @ 2.5 mls/hr TITRATE IV Last administered on 01/07/17 02:25; Admin Dose 7.5 MLS/HR; Start 01/06/17 at 09:30 Norepinephrine/ Dextrose (Levophed/D5W) 500 ml @ 0 mls/hr TITRATE IV ; Start 04/12 at 13:30 Bumetanide 1 mg 1 mg BID IV Last administered on 01/10/17 21:12; Admin Dose 1 MG; Start 01/08/17 at 09:00 Caspofungin 50 mg/ Sodium Chloride 250 ml @ 250 mls/hr Q24H IVPB Last administered on 01/11/17 15:10; Admin Dose 250 MLS/HR; Start 01/09/17 at 15:00 Propofol (Diprivan) 100 ml @ 2.19 mls/hr Q12H IV Last administered on 11:58; Admin Dose 3.504 MLS/HR; Start 01/08/17 at 16:00 Miscellaneous Information FULVESTRANT 250 MG/5 ML SYG: PLE... Q8H XX ; Start at 08:00 Vancomycin HCl 750 mg/Sodium Chloride 150 ml @ 75 mls/hr Q48H IVPB Last administered on 01/11/17 05:59; Admin Dose 75 MLS/HR; Start 01/11/17 at 06:00 Dextrose/Sodium Chloride (D5-NS) 1,000 ml @ 60 mls/hr [id number] IV Last administered on 01/11/17 12:06; Admin Dose 60 MLS/HR; Start 01/10/17 at 16:00 NELSON BRAXTON NP Jan 11, 2017 15:31
--- NOTE | 2017-01-11 15:54 | CONS ---
Date/Time of Note Date/Time of Note DATE: 01/11/17 TIME: 15:52 Consult Date/Type/Reason Admit Date/Time Jan 05, 2017 at 00:15 Initial Consult Date 01/05/17 Type of Consultation: Pulm/CCM Ordering Provider: SUSAN SIMENTAL DO Subjective Awake and MV Objective Vital Signs Date Time Temp Pulse Resp B/P Pulse Ox O2 Delivery O2 Flow Rate FiO2 01/11/17 15:30 72 12 88/42 97 Mechanical Ventilator 01/11/17 12:00 98.8 01/11/17 12:00 30 01/07/17 10:45 4.0 Intake and Output 01/10/17 01/10/17 01/11/17 15:00 23:00 07:00 Intake Total 346.94 ml 455.04 ml 650.04 ml Output Total 350 ml 355 ml 230 ml Balance -3.06 ml 100.04 ml 420.04 ml Exam GENERAL: On examination, chronically ill-appearing lady, comfortable at rest, no acute distress. HEENT: Orally intubated. Dry mucous membranes. Pupils equal and react to light. HEART: S1, S2. No added sounds or murmurs. CHEST: Diminished air entry bilaterally. ABDOMEN: Soft, nontender. No guarding or rebound. EXTREMITIES: No cyanosis, clubbing. 1+ edema. Results/Medications Result Diagram: 01/11/17 0500 01/11/17 0500 Results 24 hrs Laboratory Tests Test 01/10/17 21:05 01/11/17 01:35 01/11/17 05:00 01/11/17 05:39 Bedside Glucose 164 94 119 White Blood Count 9.9 Red Blood Count 2.97 L Hemoglobin 8.9 L Hematocrit 27.0 L Mean Corpuscular Volume 90.9 Mean Corpuscular Hemoglobin 30.0 Mean Corpuscular Hemoglobin Concent 33.0 Red Cell Distribution Width 15.0 H Platelet Count 267 Mean Platelet Volume 9.8 Neutrophils % 82.9 H Lymphocytes % 5.8 L Monocytes % 6.0 Eosinophils % 2.8 Basophils % 0.1 Nucleated Red Blood Cells % 0.0 Neutrophils # 8.2 H Lymphocytes # 0.6 L Monocytes # 0.6 Eosinophils # 0.3 Basophils # 0.0 Nucleated Red Blood Cells # 0.0 Sodium Level 129 L Potassium Level 3.8 Chloride Level 94 L Carbon Dioxide Level 29 Anion Gap 10 Blood Urea Nitrogen 70 H Creatinine 2.41 H Glucose Level 105 Calcium Level 9.2 Phosphorus Level 4.5 Magnesium Level 2.2 Test 01/11/17 08:54 01/11/17 09:00 01/11/17 12:43 Bedside Glucose 118 116 184 Medications Current Medications Cefepime HCl (Maxipime 2gm/50 ml (Pmx)) 50 ml @ 100 mls/hr DAILY IVPB Last administered on 01/11/17 09:01; Admin Dose 100 MLS/HR; Start 01/05/17 at 02:30 Naloxone HCl (Narcan) 0.4 mg Q4 PRN IV SEDATION; Start 01/05/17 at 01:30 Vancomycin HCl (Vanco Iv Per Pharmacy) PER PHARMACY DOSING NOTE XX ; Start 01/05 at 02:00 Acetaminophen (Tylenol Tab) 650 mg Q6H PRN PO PAIN AND OR ELEVATED TEMP; Start 01/05/17 at 10:30 Apixaban (Eliquis) 2.5 mg BID PO Last administered on 01/11/17 09:01; Admin Dose 2.5 MG; Start 01/05/17 at 10:30 Ascorbic Acid (Vitamin C) 500 mg BID PO Last administered on 01/11/17 09:02; Admin Dose 500 MG; Start 01/05/17 at 10:30 Bisacodyl (Dulcolax Supp) 10 mg DAILY MT Last administered on 01/11/17 09:01; Admin Dose 10 MG; Start 01/06/17 at 09:00 Budesonide (Pulmicort (Neb)) 0.25 mg BID NEB Last administered on 01/11/17 09: 35; Admin Dose 0.25 MG; Start 01/05/17 at 10:30 Docusate Sodium (Colace) 100 mg BID PO Last administered on 01/11/17 09:01; Admin Dose 100 MG; Start 01/05/17 at 10:30 Fluticasone Propionate (Flonase 0.05% Nasal) 1 spray DAILY NASAL Last administered on 01/11/17 09:19; Admin Dose 1 SPRAY; Start 01/05/17 at 11:00 Fulvestrant (Faslodex) 500 mg Q28D IM ; Start 01/05/17 at 10:30; Status UNV Insulin Glargine (Lantus) 18 unit DAILY SC Last administered on 01/11/17 09:18 ; Admin Dose 18 UNIT; Start 01/05/17 at 10:30 Loratadine (Claritin) 10 mg DAILY PO Last administered on 01/11/17 09:02; Admin Dose 10 MG; Start 01/05/17 at 11:00 Magnesium Hydroxide (Milk Of Mag) 30 ml BID PRN PO CONSTIPATION; Start at 10:30 Magnesium Oxide (Mag-Ox 400) 400 mg DAILY PO Last administered on 01/11/17 09: 01; Admin Dose 400 MG; Start 01/05/17 at 10:30 Metoprolol Tartrate (Lopressor) 25 mg Q8 PO Last administered on 01/11/17 14: 51; Admin Dose 25 MG; Start 01/05/17 at 14:00 Mirtazapine (Remeron) 15 mg HS PO Last administered on 01/10/17 21:15; Admin Dose 15 MG; Start 01/05/17 at 21:00 Nitroglycerin (Nitroglycerin 2% Oint) 0.5 inch Q6 PRN TD CHEST PAIN; Start 03/13 at 10:30 Ondansetron HCl (Zofran Inj) 4 mg Q6H PRN IV NAUSEA Last administered on 15:55; Admin Dose 4 MG; Start 01/05/17 at 10:30 Sertraline HCl (Zoloft) 75 mg DAILY PO Last administered on 01/11/17 09:01; Admin Dose 75 MG; Start 01/05/17 at 10:30 Sildenafil Citrate (Revatio) 20 mg TID PO Last administered on 01/11/17 12:49 ; Admin Dose 20 MG; Start 01/05/17 at 13:00 Tacrolimus (Prograf) 2 mg QPM PO Last administered on 01/10/17 21:15; Admin Dose 2 MG; Start 01/05/17 at 21:00 Pantoprazole (Protonix Tab) 40 mg DAILY@06 PO Last administered on 01/11/17 05 :59; Admin Dose 40 MG; Start 01/06/17 at 06:00 Senna (Senokot) 1 tab HS PO Last administered on 01/10/17 21:13; Admin Dose 1 TAB; Start 01/05/17 at 21:00 Prednisone (Prednisone) 5 mg DAILY PO Last administered on 01/11/17 09:02; Admin Dose 5 MG; Start 01/05/17 at 12:00 Prednisone (Prednisone) 3 mg DAILY PO Last administered on 01/11/17 09:02; Admin Dose 3 MG; Start 01/05/17 at 12:00 Miscellaneous Information 1 ea NOTE XX ; Start 01/05/17 at 11:00 Glucose (Glutose) 15 gm Q15M PRN PO DECREASED GLUCOSE; Start 01/05/17 at 11:00 Glucose (Glutose) 22.5 gm Q15M PRN PO DECREASED GLUCOSE; Start 01/05/17 at 11: 00 Dextrose (D50w Syringe) 25 ml Q15M PRN IV DECREASED GLUCOSE Last administered on 01/09/17 04:45; Admin Dose 25 ML; Start 01/05/17 at 11:00 Dextrose (D50w Syringe) 50 ml Q15M PRN IV DECREASED GLUCOSE Last administered on 01/08/17 21:33; Admin Dose 50 ML; Start 01/05/17 at 11:00 Glucagon (Glucagen) 1 mg Q15M PRN IM DECREASED GLUCOSE; Start 01/05/17 at 11:00 Glucose (Glutose) 15 gm Q15M PRN BUCCAL DECREASED GLUCOSE; Start 01/05/17 at 11 :00 Oxcarbazepine (Trileptal) 600 mg BID PO Last administered on 01/11/17 09:03; Admin Dose 600 MG; Start 01/05/17 at 12:00 Insulin Aspart NOVOLOG *MILD* ALGORI... Q4 SC Last administered on 01/11/17 12 :52; Admin Dose 2 UNIT; Start 01/05/17 at 13:00 Fentanyl 100 ml @ 2.5 mls/hr TITRATE IV Last administered on 01/07/17 02:25; Admin Dose 7.5 MLS/HR; Start 01/06/17 at 09:30 Norepinephrine/ Dextrose (Levophed/D5W) 500 ml @ 0 mls/hr TITRATE IV ; Start 04/12 at 13:30 Bumetanide 1 mg 1 mg BID IV Last administered on 01/10/17 21:12; Admin Dose 1 MG; Start 01/08/17 at 09:00 Caspofungin 50 mg/ Sodium Chloride 250 ml @ 250 mls/hr Q24H IVPB Last administered on 01/11/17 15:10; Admin Dose 250 MLS/HR; Start 01/09/17 at 15:00 Propofol (Diprivan) 100 ml @ 2.19 mls/hr Q12H IV Last administered on 11:58; Admin Dose 3.504 MLS/HR; Start 01/08/17 at 16:00 Miscellaneous Information FULVESTRANT 250 MG/5 ML SYG: PLE... Q8H XX ; Start at 08:00 Vancomycin HCl 750 mg/Sodium Chloride 150 ml @ 75 mls/hr Q48H IVPB Last administered on 01/11/17 05:59; Admin Dose 75 MLS/HR; Start 01/11/17 at 06:00 Dextrose/Sodium Chloride (D5-NS) 1,000 ml @ 60 mls/hr [id number] IV Last administered on 01/11/17 12:06; Admin Dose 60 MLS/HR; Start 01/10/17 at 16:00 Assessment/Plan Additional Assessment/Plan IMPRESSION: 1. Hypoxemic respiratory failure 2. Altered mental status secondary to opioids. Significant anxiety component. 3. History of renal transplant. 4. Renal insufficiency 5. Pleural Effusion PLAN: 1. Pleural Fluid for routine testing/cytology 2. Wean in am to CPAP/PS 3. Limit sedatives narcotics---> daily holiday 35 min cc time SRINIVAS NEGRO MD Jan 11, 2017 15:54
--- NOTE | 2017-01-11 16:10 | RADRPT ---
PROCEDURE: XR Chest. CLINICAL INDICATION: Shortness of breath. TECHNIQUE: Single frontal view. COMPARISON: 01/10/2017. FINDINGS: The endotracheal tube and nasogastric tube remain in satisfactory position. There is bilateral inter stitial disease consistent with pulmonary edema, unchanged. The heart is mildly enlarged. Surgical clips are present overlying the left side of the mediastinum and in the left axillary region. There is no pleural effusion. There is no pneumothorax. IMPRESSION: 1. No change from 01/10/2017. RPTAT: QQ .Jarvis Block MD, MD Date Time Electronically viewed and signed by .Jarvis Block MD, MD on 01/11/2017 16:10 .R/
[2017-01-11] MEDS: MIRTAZAPINE 15 MG TAB PO SCH (20:33)
[2017-01-11] MEDS: SENNA TAB PO SCH (20:33)
[2017-01-12] VITALS (79 sets, daily range): BP systolic 77–176; BP diastolic 33–93; PULSE 61–129; RESP 10–33
[2017-01-12] MEDS: INSULIN ASPART [NOVOLOG] 3 ML PEN SC SCH ×6 (00:58→21:08)
[2017-01-12] MEDS: ALBUTEROL 18 GM INHALER INH SCH ×4 (01:21→19:19)
[2017-01-12] MEDS: IPRATROPIUM (HFA) 12.9 GM INHALER INH SCH ×4 (01:22→19:20)
[2017-01-12] MEDS: PROPOFOL 100 ML IV SCH ×2 (02:16→16:00)
[2017-01-12 05:10] LABS: BASOPHILS % 0.2 % (0.0-2.0); EOSINOPHILS # 0.3 10^3/ul (0.0-0.5); EOSINOPHILS % 3.5 % (0.0-7.0); HEMATOCRIT 26.1 % (37.0-47.0); HEMOGLOBIN 8.6 g/dl (12.0-16.0); LYMPHOCYTES # 0.7 10^3/ul (0.8-2.9); LYMPHOCYTES % 8.3 % (15.0-51.0); MEAN CORPUSCULAR VOLUME 90.9 fl (82.0-101.0); MEAN PLATELET VOLUME 10.2 fl (7.4-10.4); MONOCYTE # 0.7 10^3/ul (0.3-0.9); MONOCYTES % 7.5 % (0.0-11.0); NEUTROPHIL # 6.9 10^3/ul (1.6-7.5); NEUTROPHILS % 77.6 % (39.0-77.0); PLATELET COUNT 260 10^3/UL (140-415); RED BLOOD COUNT 2.87 10^6/ul (4.20-5.40); RED CELL DISTRIBUTION WIDTH 14.9 % (11.5-14.5); WHITE BLOOD COUNT 8.9 10^3/ul (4.8-10.8)
[2017-01-12 05:32] LABS: CREATININE 2.55 mg/dl (0.44-1.00); MAGNESIUM 2.3 mg/dl (1.7-2.5); PHOSPHORUS 4.1 mg/dl (2.5-4.9); POTASSIUM 3.7 mmol/L (3.5-5.1)
[2017-01-12] MEDS: METOPROLOL 25 MG TAB PO SCH ×3 (05:53→21:11)
[2017-01-12] MEDS: PANTOPRAZOLE (EC) 40 MG TAB PO SCH (05:53)
[2017-01-12] MEDS: LEVOTHYROXINE 75 MCG TAB PO SCH (05:54)
--- NOTE | 2017-01-12 07:39 | RADRPT ---
PROCEDURE: XR Chest. CLINICAL INDICATION: Shortness of breath. TECHNIQUE: Single frontal view. COMPARISON: 01/11/2017. FINDINGS: The endotracheal tube and nasogastric tube remain in satisfactory position. There is mild pulmonary edema, unchanged. The heart is mildly enlarged. Surgical clips are present overlying the left side of mediastinum and the left axillary region. There is no pleural effusion. There is no pneumothorax. IMPRESSION: 1. No change from 01/11/2017. RPTAT: QQ .Jarvis Block MD, MD Date Time Electronically viewed and signed by .Jarvis Block MD, MD on 01/12/2017 07:39 .R/
--- NOTE | 2017-01-12 07:53 | PN ---
DATE: 01/12/2017 SUBJECTIVE DATA: The patient remains intubated on weaning trial. The patient's eyes are open. No other events noted. OBJECTIVE DATA: VITAL SIGNS: Blood pressure is 156/79, respirations 18, pulse 121, temperature 98.6. Is and Os, the patient had 2.4 L with 760 out. HEENT: Head is normocephalic. NECK: Supple. HEART: Regular rate. LUNGS: Diminished breath sounds at the base. ABDOMEN: Soft. Nontender to palpation. No rebound or guarding. EXTREMITIES: Negative for clubbing, cyanosis. Trace edema. DERMATOLOGIC: No rashes. MUSCULOSKELETAL: No joint effusions. NEUROLOGIC: No change in exam. MEDICATIONS: Reviewed. LABORATORY AND DIAGNOSTIC DATA: Shows sodium 126, potassium 3.7, chloride 94, BUN 73, creatinine 0.55. White count 8.9, hemoglobin 8.6, hematocrit 26.1, platelet count is 260. INR is 1.27. The patient's Prograf level is 6.8. Vancomycin level is 19.9. Chest x-ray on January 11 shows no change. ASSESSMENT AND PLAN: 1. Ventilatory-dependent respiratory failure. The patient's vent settings and ABGs reviewed. Continue weaning per Pulmonary. 2. Acute congestive heart failure exacerbation. The patient's chest x-ray continues to show congestion. Continue current diuretic regimen. 3. Sepsis status post shock. The patient is currently on presser. Continue current antibiotic regimen. 4. Paroxysmal atrial fibrillation. Currently sinus rhythm. Continue to monitor. 5. Hyponatremia. Etiology secondary ot acute kidney injury causing decreased free water urinary excretion. Plan is to discontinue off free water flushes and monitor. 6. 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 Previous baseline creatinine 1.5 to 1.7 mg/dL. Etiology of acute kidney injury secondary to acute tubular necrosis due to code arrest. The patient's renal function stabilized around creatinine 2.5. Continue to monitor closely. Prograf levels were reviewed, currently at appropriate level. 7. History of end-stage renal disease. Status post renal transplant with chronic allograft failure. The patient is currently acute kidney injury stated above. Continue current immunosuppressive regimen. Continue Prograf and prednisone. 8. Hypothyroidism. Continue Synthroid. 9. Anemia. Monitor H and H levels. 10. History of breast cancer. Continue to monitor. Follow up with Oncology. 11. Diabetes. Continue current insulin regimen. 12. Pulmonary hypertension. 13. Anxiety and depression. Continue medical management. 14. Gastrointestinal and deep venous thrombosis prophylaxis. 15. Nutrition. Continue tube feeding. Please note, I spent over 35 minutes of critical care time with this patient. Dictated By: Cameron Rosenthal DO /berkley/johnson /Document#: [id number]
[2017-01-12] MEDS: [UNRECOGNIZED DRUG - REMARK] XX SCH ×2 (08:00→16:00)
[2017-01-12] MEDS: FLUTICASONE 0.05% 16 GM NAS SPRAY NASAL SCH (08:19)
[2017-01-12] MEDS: BISACODYL 10 MG SUPP PR SCH ×2 (09:00→12:34)
[2017-01-12] MEDS: DOCUSATE SODIUM 100 MG CAP PO SCH ×2 (09:00→21:11)
[2017-01-12] MEDS: BALSAM PERU/CASTOR OIL 60 GM TUBE TOP SCH (09:00)
--- NOTE | 2017-01-12 09:51 | CONS ---
Date/Time of Note Date/Time of Note DATE: 01/12/17 TIME: 09:47 Assessment/Plan Assessment/Plan Additional Assessment/Plan Data setting; AC of 12, tidal volume 450, PEEP of 5, 30% FiO2. Patient currently on propofol at 15 mics per kilogram per minute. Chest x-ray was reviewed from today which is showing improvement in pulmonary edema as well as right lower lobe infiltrative changes. Assessment and recommendations; 1. Patient admitted with combination of pneumonia and CHF status post right thoracentesis. There has been significant radiological improvement. 2. Metabolic encephalopathy with interval improvement as well. 3. Chronic immunosuppression due to history of renal transplant. 4. Chronic renal insufficiency. Current supportive care. Patient would warrant a weaning trial from ventilator in 24 hours. Consultation Date/Type/Reason Admit Date/Time Jan 05, 2017 at 00:15 Initial Consult Date 01/05/17 Type of Consultation: Pulm/CCM Referring Provider: SUSAN SIMENTAL DO 24 HR Interval Summary Free Text/Dictation Patient's condition remains critical but stable. has remained hemodynamically stable. Despite being on propofol patient is quite awake now. General exam; elderly woman, orally intubated, awake, currently in no distress. Exam/Review of Systems Vital Signs Vitals Vital Signs Date Time Temp Pulse Resp B/P Pulse Ox O2 Delivery O2 Flow Rate FiO2 01/12/17 05:58 76 15 100 30 01/11/17 23:30 156/79 Mechanical Ventilator 01/11/17 20:00 98.7 Intake and Output 01/11/17 01/11/17 01/12/17 15:00 23:00 07:00 Intake Total 577.520 ml 1058.454 ml 704.982 ml Output Total 150 ml 240 ml 370 ml Balance 427.520 ml 818.454 ml 334.982 ml Exam HEENT exam; supple neck, positive JVD. No lymphadenopathy. Midline trachea. No thyromegaly. Orally intubated. Patient has fair dentition. Has bilateral intraocular lens implants. Chest exam; diminished but clear breath sound. S1-S2 audible, no murmurs. Regular rhythm. Abdomen exam; soft, no organomegaly. Bowel sounds audible. Extremity exam; no edema. [employer] exam; patient is awake. Results Result Diagram: 01/12/17 0400 01/12/17 0400 Results 24 hrs Laboratory Tests Test 01/11/17 12:43 01/11/17 16:18 01/11/17 20:35 01/12/17 00:55 Bedside Glucose 184 143 119 154 Test 01/12/17 04:00 01/12/17 04:19 01/12/17 07:54 White Blood Count 8.9 Red Blood Count 2.87 L Hemoglobin 8.6 L Hematocrit 26.1 L Mean Corpuscular Volume 90.9 Mean Corpuscular Hemoglobin 30.0 Mean Corpuscular Hemoglobin Concent 33.0 Red Cell Distribution Width 14.9 H Platelet Count 260 Mean Platelet Volume 10.2 Neutrophils % 77.6 H Lymphocytes % 8.3 L Monocytes % 7.5 Eosinophils % 3.5 Basophils % 0.2 Nucleated Red Blood Cells % 0.0 Neutrophils # 6.9 Lymphocytes # 0.7 L Monocytes # 0.7 Eosinophils # 0.3 Basophils # 0.0 Nucleated Red Blood Cells # 0.0 Sodium Level 126 L Potassium Level 3.7 Chloride Level 94 L Carbon Dioxide Level 27 Anion Gap 9 Blood Urea Nitrogen 73 H Creatinine 2.55 H Glucose Level 147 # Lactic Acid Level 1.4 Calcium Level 9.0 Phosphorus Level 4.1 Magnesium Level 2.3 Bedside Glucose 155 191 Medications Medications Current Medications Cefepime HCl (Maxipime 2gm/50 ml (Pmx)) 50 ml @ 100 mls/hr DAILY IVPB Last administered on 01/11/17 09:01; Admin Dose 100 MLS/HR; Start 01/05/17 at 02:30 Naloxone HCl (Narcan) 0.4 mg Q4 PRN IV SEDATION; Start 01/05/17 at 01:30 Vancomycin HCl (Vanco Iv Per Pharmacy) PER PHARMACY DOSING NOTE XX ; Start 01/05 at 02:00 Acetaminophen (Tylenol Tab) 650 mg Q6H PRN PO PAIN AND OR ELEVATED TEMP; Start 01/05/17 at 10:30 Apixaban (Eliquis) 2.5 mg BID PO Last administered on 01/11/17 20:32; Admin Dose 2.5 MG; Start 01/05/17 at 10:30 Ascorbic Acid (Vitamin C) 500 mg BID PO Last administered on 01/11/17 20:33; Admin Dose 500 MG; Start 01/05/17 at 10:30 Bisacodyl (Dulcolax Supp) 10 mg DAILY NC Last administered on 01/11/17 09:01; Admin Dose 10 MG; Start 01/06/17 at 09:00 Budesonide (Pulmicort (Neb)) 0.25 mg BID NEB Last administered on 01/11/17 19: 23; Admin Dose 0.25 MG; Start 01/05/17 at 10:30 Docusate Sodium (Colace) 100 mg BID PO Last administered on 01/11/17 20:32; Admin Dose 100 MG; Start 01/05/17 at 10:30 Fluticasone Propionate (Flonase 0.05% Nasal) 1 spray DAILY NASAL Last administered on 01/11/17 09:19; Admin Dose 1 SPRAY; Start 01/05/17 at 11:00 Fulvestrant (Faslodex) 500 mg Q28D IM ; Start 01/05/17 at 10:30; Status UNV Insulin Glargine (Lantus) 18 unit DAILY SC Last administered on 01/11/17 09:18 ; Admin Dose 18 UNIT; Start 01/05/17 at 10:30 Loratadine (Claritin) 10 mg DAILY PO Last administered on 01/11/17 09:02; Admin Dose 10 MG; Start 01/05/17 at 11:00 Magnesium Hydroxide (Milk Of Mag) 30 ml BID PRN PO CONSTIPATION; Start at 10:30 Magnesium Oxide (Mag-Ox 400) 400 mg DAILY PO Last administered on 01/11/17 09: 01; Admin Dose 400 MG; Start 01/05/17 at 10:30 Metoprolol Tartrate (Lopressor) 25 mg Q8 PO Last administered on 01/12/17 05: 53; Admin Dose 25 MG; Start 01/05/17 at 14:00 Mirtazapine (Remeron) 15 mg HS PO Last administered on 01/11/17 20:33; Admin Dose 15 MG; Start 01/05/17 at 21:00 Nitroglycerin (Nitroglycerin 2% Oint) 0.5 inch Q6 PRN TD CHEST PAIN; Start 03/13 at 10:30 Ondansetron HCl (Zofran Inj) 4 mg Q6H PRN IV NAUSEA Last administered on 15:55; Admin Dose 4 MG; Start 01/05/17 at 10:30 Sertraline HCl (Zoloft) 75 mg DAILY PO Last administered on 01/11/17 09:01; Admin Dose 75 MG; Start 01/05/17 at 10:30 Sildenafil Citrate (Revatio) 20 mg TID PO Last administered on 01/11/17 20:33 ; Admin Dose 20 MG; Start 01/05/17 at 13:00 Tacrolimus (Prograf) 2 mg QPM PO Last administered on 01/11/17 20:33; Admin Dose 2 MG; Start 01/05/17 at 21:00 Pantoprazole (Protonix Tab) 40 mg DAILY@06 PO Last administered on 01/12/17 05 :53; Admin Dose 40 MG; Start 01/06/17 at 06:00 Senna (Senokot) 1 tab HS PO Last administered on 01/11/17 20:33; Admin Dose 1 TAB; Start 01/05/17 at 21:00 Prednisone (Prednisone) 5 mg DAILY PO Last administered on 01/11/17 09:02; Admin Dose 5 MG; Start 01/05/17 at 12:00 Prednisone (Prednisone) 3 mg DAILY PO Last administered on 01/11/17 09:02; Admin Dose 3 MG; Start 01/05/17 at 12:00 Miscellaneous Information 1 ea NOTE XX ; Start 01/05/17 at 11:00 Glucose (Glutose) 15 gm Q15M PRN PO DECREASED GLUCOSE; Start 01/05/17 at 11:00 Glucose (Glutose) 22.5 gm Q15M PRN PO DECREASED GLUCOSE; Start 01/05/17 at 11: 00 Dextrose (D50w Syringe) 25 ml Q15M PRN IV DECREASED GLUCOSE Last administered on 01/09/17 04:45; Admin Dose 25 ML; Start 01/05/17 at 11:00 Dextrose (D50w Syringe) 50 ml Q15M PRN IV DECREASED GLUCOSE Last administered on 01/08/17 21:33; Admin Dose 50 ML; Start 01/05/17 at 11:00 Glucagon (Glucagen) 1 mg Q15M PRN IM DECREASED GLUCOSE; Start 01/05/17 at 11:00 Glucose (Glutose) 15 gm Q15M PRN BUCCAL DECREASED GLUCOSE; Start 01/05/17 at 11 :00 Oxcarbazepine (Trileptal) 600 mg BID PO Last administered on 01/11/17 20:33; Admin Dose 600 MG; Start 01/05/17 at 12:00 Insulin Aspart NOVOLOG *MILD* ALGORI... Q4 SC Last administered on 01/12/17 05 :56; Admin Dose 1 UNIT; Start 01/05/17 at 13:00 Fentanyl 100 ml @ 2.5 mls/hr TITRATE IV Last administered on 01/07/17 02:25; Admin Dose 7.5 MLS/HR; Start 01/06/17 at 09:30 Norepinephrine/ Dextrose (Levophed/D5W) 500 ml @ 0 mls/hr TITRATE IV ; Start 04/12 at 13:30 Bumetanide 1 mg 1 mg BID IV Last administered on 01/11/17 20:32; Admin Dose 1 MG; Start 01/08/17 at 09:00 Caspofungin 50 mg/ Sodium Chloride 250 ml @ 250 mls/hr Q24H IVPB Last administered on 01/11/17 15:10; Admin Dose 250 MLS/HR; Start 01/09/17 at 15:00 Propofol (Diprivan) 100 ml @ 2.19 mls/hr Q12H IV Last administered on 02:16; Admin Dose 6.57 MLS/HR; Start 01/08/17 at 16:00 Miscellaneous Information FULVESTRANT 250 MG/5 ML SYG: PLE... Q8H XX Last administered on 01/11/17 23:35; Admin Dose 1 EA; Start 01/09/17 at 08:00 Vancomycin HCl/ Sodium Chloride (Vancocin/NS) 150 ml @ 75 mls/hr Q48H IVPB Last administered on 01/11/17 05:59; Admin Dose 75 MLS/HR; Start 01/11/17 at 06 :00 JOELLE INFANTE Jan 12, 2017 09:51
[2017-01-12] MEDS: SILDENAFIL 20 MG TAB PO SCH ×3 (10:00→21:10)
[2017-01-12] MEDS: predniSONE 5 MG TAB PO SCH (10:00)
[2017-01-12] MEDS: OXCARBAZEPINE 300 MG TAB PO SCH ×2 (10:01→21:10)
[2017-01-12] MEDS: MAGNESIUM OXIDE 400 MG TAB PO SCH (10:01)
[2017-01-12] MEDS: LORATADINE 10 MG TAB PO SCH (10:01)
[2017-01-12] MEDS: SERTRALINE 50 MG TAB PO SCH (10:01)
[2017-01-12] MEDS: TACROLIMUS 1 MG CAP PO SCH ×2 (10:01→21:12)
[2017-01-12] MEDS: ASCORBIC ACID 500 MG TAB PO SCH ×2 (10:02→21:11)
[2017-01-12] MEDS: APIXABAN 5 MG TABLET PO SCH ×2 (10:02→21:05)
[2017-01-12] MEDS: predniSONE 1 MG TAB PO SCH (10:02)
[2017-01-12] MEDS: INSULIN GLARGINE [LANtus] 3 ML PEN SC SCH (10:03)
[2017-01-12] MEDS: BUMETANIDE 1 MG INJ IV SCH ×2 (10:05→21:14)
[2017-01-12] MEDS: CEFEPIME 2GM/50 ML (PMX) 50 ML IVPB SCH (10:05)
[2017-01-12] MEDS: BUDESONIDE (NEB) 0.25 MG/2 ML AMP NEB SCH ×2 (11:26→21:33)
[2017-01-12] MEDS: CASPOFUNGIN 50 MG in SOD CHLORIDE 0.9% 250 ML IVPB SCH (12:35)
--- NOTE | 2017-01-12 13:19 | RADRPT ---
PROCEDURE: Chest 1 views. CLINICAL INDICATION: Shortness of breath. TECHNIQUE: AP views of the chest was obtained. COMPARISON: January 12, 2017 at 06:54 a.m. FINDINGS: The heart is large. Endotracheal and nasogastric tubes appear in grossly appropriate location. Cent ral pulmonary vascular congestion and interstitial prominence in both lungs is unchanged. Scattered atelectasis is noted in both lungs. Elevated right hemidiaphragm is identified. Blunting right co stophrenic angle is unchanged. No consolidations are identified. No pneumothorax is seen. The oss eous structures are stable. Surgical clips are seen in the bilateral axilla. IMPRESSION: Cardiomegaly . Stable central pulmonary vascular congestion and mild interstitial prominence in both lungs. Stable small right pleural effusion. Scattered atelectasis in both lungs. Elevated right hemidiaphragm. RPTAT: AA .Abelino Dhaliwal MD, Date Time Electronically viewed and signed by .Abelino Dhaliwal MD, on 01/12/2017 13:19 .P/
--- NOTE | 2017-01-12 15:30 | PN ---
DATE: 01/12/2017 SUBJECTIVE DATA: No events overnight. The patient is intubated, sedated, in no distress. Failed weaning trials. Temperature 98.1, pulse 84, respirations 14, pressure 137/80, saturation 98 on vent. LABORATORY AND DIAGNOSTIC DATA: WBC 8.9, H and H 8.6 and 26.1, platelets 260, neutrophils 77.6, BUN 73, creatinine 2.55, sodium 126. Microbiology, sputum culture grew yeast, not Mellissa albicans. Blood culture had been negative. Urine culture negative. Nares swab negative. DIAGNOSTICS: Chest x-ray this morning revealed no change. Mild pulmonary edema. No pleural effusion. No pneumothorax. INDWELLINGS: Endotracheal tube, NG tube, Dela Cruz catheter. PICC line. ANTIMICROBIALS: The patient remains on Vancomycin, Cancidas and cefepime. PHYSICAL EXAMINATION: GENERAL: This is a fragile, chronically ill-appearing, elderly woman, who is intubated, in no distress. HEENT: Head atraumatic, normocephalic. Sclerae anicteric. Buccal mucosa dry. NECK: Supple. Trachea midline. CHEST: Rise symmetrical. Breath sounds diminished at the bases. HEART: S1, S2. ABDOMEN: Soft, bowel sounds hypoactive. EXTREMITIES: With trace edema. ASSESSMENT: 1. Resolving sepsis status post shock. 2. Acute respiratory failure, possibly aspiration. New event. 3. Pleural effusions, status post right thoracentesis on 01/09/2017 with pleural fluid cultures being negative. 4. Acute on chronic kidney disease with a history of kidney transplant, remains on immunosuppressive therapy. 5. Diabetes. 6. History of metastatic breast cancer. PLAN: The patient is hemodynamically stable. We are going to discontinue Vancomycin. Keep her on cefepime and Cancidas for now. Continue management as per primary team and consultants. Dictated By: Artis Castañeda NP /berkley/johnson /Document#: [id number]
--- NOTE | 2017-01-12 18:24 | CONS ---
Date/Time of Note Date/Time of Note DATE: 01/12/17 TIME: 18:23 Consult Date/Type/Reason Admit Date/Time Jan 05, 2017 at 00:15 Initial Consult Date 01/05/17 Type of Consultation: CARDIOLOGY Ordering Provider: SUSAN SIMENTAL DO Subjective CARDIOLOGY FOLLOW UP NOTE: D/W Staff and rhythm was reviewed. pt has remained in Afib. HR has been stable D/W family at bedside. pt remains intubated on vent NOW. pt was extubated on 01/07/17 but had to be re- intubated again the same night due to resp distress even on BIPAP. NO reports of any chest pain or pressure BP has been intermittently low, specially when sedated OBJECTIVE: General: intubated on vent. HEENT: NC/AT. pupils are equal. round. NECK: NO JVD. no stridor. CV: RRR. systolic murmur; no gallop or rubs. PULM: no wheezing, + mild rhonchi. GI: SOFT, NT, ND, no rebound or guarding Extremity: trace B/L LE edema. no clubbing. neuro: opens her eyes to verbal stimuli . . Psych: unable to assess rectal: deferred : normal ECHO 12/16/16: Personally reviewed 1. Normal left ventricular systolic function. Normal left ventricular cavity size. Moderate concentric left ventricular hypertrophy. Ejection fraction is visually estimated at 65 %. Abnormal Diastolic Function. 2. There is moderate enlargement of left atrium. 3. Mild mitral leaflet calcification. Mild mitral annular calcification. Trace mitral regurgitation. 4. Aortic sclerosis without stenosis. Trace aortic valve regurgitation. 5. Normal appearance of the tricuspid valve. Estimated peak PA systolic pressure 38 mmHg. There is mild tricuspid regurgitation. Objective Vital Signs Date Time Temp Pulse Resp B/P Pulse Ox O2 Delivery O2 Flow Rate FiO2 01/12/17 17:30 68 10 103/47 01/12/17 17:21 100 30 01/12/17 14:33 97.5 01/11/17 23:30 Mechanical Ventilator Intake and Output 01/11/17 01/11/17 01/12/17 15:00 23:00 07:00 Intake Total 577.520 ml 1058.454 ml 704.982 ml Output Total 150 ml 240 ml 370 ml Balance 427.520 ml 818.454 ml 334.982 ml Results/Medications Result Diagram: 01/12/17 0400 01/12/17 0400 Results 24 hrs Laboratory Tests Test 01/11/17 20:35 01/12/17 00:55 01/12/17 04:00 01/12/17 04:19 Bedside Glucose 119 154 155 White Blood Count 8.9 Red Blood Count 2.87 L Hemoglobin 8.6 L Hematocrit 26.1 L Mean Corpuscular Volume 90.9 Mean Corpuscular Hemoglobin 30.0 Mean Corpuscular Hemoglobin Concent 33.0 Red Cell Distribution Width 14.9 H Platelet Count 260 Mean Platelet Volume 10.2 Neutrophils % 77.6 H Lymphocytes % 8.3 L Monocytes % 7.5 Eosinophils % 3.5 Basophils % 0.2 Nucleated Red Blood Cells % 0.0 Neutrophils # 6.9 Lymphocytes # 0.7 L Monocytes # 0.7 Eosinophils # 0.3 Basophils # 0.0 Nucleated Red Blood Cells # 0.0 Sodium Level 126 L Potassium Level 3.7 Chloride Level 94 L Carbon Dioxide Level 27 Anion Gap 9 Blood Urea Nitrogen 73 H Creatinine 2.55 H Glucose Level 147 # Lactic Acid Level 1.4 Calcium Level 9.0 Phosphorus Level 4.1 Magnesium Level 2.3 Test 01/12/17 07:54 01/12/17 12:10 01/12/17 17:52 Bedside Glucose 191 143 167 Medications Current Medications Cefepime HCl (Maxipime 2gm/50 ml (Pmx)) 50 ml @ 100 mls/hr DAILY IVPB Last administered on 01/12/17 10:05; Admin Dose 100 MLS/HR; Start 01/05/17 at 02:30 Naloxone HCl (Narcan) 0.4 mg Q4 PRN IV SEDATION; Start 01/05/17 at 01:30 Vancomycin HCl (Vanco Iv Per Pharmacy) PER PHARMACY DOSING NOTE XX ; Start 01/05 at 02:00 Acetaminophen (Tylenol Tab) 650 mg Q6H PRN PO PAIN AND OR ELEVATED TEMP; Start 01/05/17 at 10:30 Apixaban (Eliquis) 2.5 mg BID PO Last administered on 01/12/17 10:02; Admin Dose 2.5 MG; Start 01/05/17 at 10:30 Ascorbic Acid (Vitamin C) 500 mg BID PO Last administered on 01/12/17 10:02; Admin Dose 500 MG; Start 01/05/17 at 10:30 Bisacodyl (Dulcolax Supp) 10 mg DAILY CO Last administered on 01/12/17 12:34; Admin Dose 10 MG; Start 01/06/17 at 09:00 Budesonide (Pulmicort (Neb)) 0.25 mg BID NEB Last administered on 01/12/17 11: 26; Admin Dose 0.25 MG; Start 01/05/17 at 10:30 Docusate Sodium (Colace) 100 mg BID PO Last administered on 01/11/17 20:32; Admin Dose 100 MG; Start 01/05/17 at 10:30 Fluticasone Propionate (Flonase 0.05% Nasal) 1 spray DAILY NASAL Last administered on 01/11/17 09:19; Admin Dose 1 SPRAY; Start 01/05/17 at 11:00 Fulvestrant (Faslodex) 500 mg Q28D IM ; Start 01/05/17 at 10:30; Status UNV Insulin Glargine (Lantus) 18 unit DAILY SC Last administered on 01/12/17 10:03 ; Admin Dose 18 UNIT; Start 01/05/17 at 10:30 Loratadine (Claritin) 10 mg DAILY PO Last administered on 01/12/17 10:01; Admin Dose 10 MG; Start 01/05/17 at 11:00 Magnesium Hydroxide (Milk Of Mag) 30 ml BID PRN PO CONSTIPATION; Start at 10:30 Magnesium Oxide (Mag-Ox 400) 400 mg DAILY PO Last administered on 01/12/17 10: 01; Admin Dose 400 MG; Start 01/05/17 at 10:30 Metoprolol Tartrate (Lopressor) 25 mg Q8 PO Last administered on 01/12/17 12: 34; Admin Dose 25 MG; Start 01/05/17 at 14:00 Mirtazapine (Remeron) 15 mg HS PO Last administered on 01/11/17 20:33; Admin Dose 15 MG; Start 01/05/17 at 21:00 Nitroglycerin (Nitroglycerin 2% Oint) 0.5 inch Q6 PRN TD CHEST PAIN; Start 03/13 at 10:30 Ondansetron HCl (Zofran Inj) 4 mg Q6H PRN IV NAUSEA Last administered on 15:55; Admin Dose 4 MG; Start 01/05/17 at 10:30 Sertraline HCl (Zoloft) 75 mg DAILY PO Last administered on 01/12/17 10:01; Admin Dose 75 MG; Start 01/05/17 at 10:30 Sildenafil Citrate (Revatio) 20 mg TID PO Last administered on 01/12/17 12:34 ; Admin Dose 20 MG; Start 01/05/17 at 13:00 Tacrolimus (Prograf) 2 mg QPM PO Last administered on 01/11/17 20:33; Admin Dose 2 MG; Start 01/05/17 at 21:00 Pantoprazole (Protonix Tab) 40 mg DAILY@06 PO Last administered on 01/12/17 05 :53; Admin Dose 40 MG; Start 01/06/17 at 06:00 Senna (Senokot) 1 tab HS PO Last administered on 01/11/17 20:33; Admin Dose 1 TAB; Start 01/05/17 at 21:00 Prednisone (Prednisone) 5 mg DAILY PO Last administered on 01/12/17 10:00; Admin Dose 5 MG; Start 01/05/17 at 12:00 Prednisone (Prednisone) 3 mg DAILY PO Last administered on 01/12/17 10:02; Admin Dose 3 MG; Start 01/05/17 at 12:00 Miscellaneous Information 1 ea NOTE XX ; Start 01/05/17 at 11:00 Glucose (Glutose) 15 gm Q15M PRN PO DECREASED GLUCOSE; Start 01/05/17 at 11:00 Glucose (Glutose) 22.5 gm Q15M PRN PO DECREASED GLUCOSE; Start 01/05/17 at 11: 00 Dextrose (D50w Syringe) 25 ml Q15M PRN IV DECREASED GLUCOSE Last administered on 01/09/17 04:45; Admin Dose 25 ML; Start 01/05/17 at 11:00 Dextrose (D50w Syringe) 50 ml Q15M PRN IV DECREASED GLUCOSE Last administered on 01/08/17 21:33; Admin Dose 50 ML; Start 01/05/17 at 11:00 Glucagon (Glucagen) 1 mg Q15M PRN IM DECREASED GLUCOSE; Start 01/05/17 at 11:00 Glucose (Glutose) 15 gm Q15M PRN BUCCAL DECREASED GLUCOSE; Start 01/05/17 at 11 :00 Oxcarbazepine (Trileptal) 600 mg BID PO Last administered on 01/12/17 10:01; Admin Dose 600 MG; Start 01/05/17 at 12:00 Insulin Aspart NOVOLOG *MILD* ALGORI... Q4 SC Last administered on 01/12/17 10 :04; Admin Dose 2 UNIT; Start 01/05/17 at 13:00 Fentanyl 100 ml @ 2.5 mls/hr TITRATE IV Last administered on 01/07/17 02:25; Admin Dose 7.5 MLS/HR; Start 01/06/17 at 09:30 Norepinephrine/ Dextrose (Levophed/D5W) 500 ml @ 0 mls/hr TITRATE IV ; Start 04/12 at 13:30 Bumetanide 1 mg 1 mg BID IV Last administered on 01/12/17 10:05; Admin Dose 1 MG; Start 01/08/17 at 09:00 Caspofungin 50 mg/ Sodium Chloride 250 ml @ 250 mls/hr Q24H IVPB Last administered on 01/12/17 12:35; Admin Dose 250 MLS/HR; Start 01/09/17 at 15:00 Propofol (Diprivan) 100 ml @ 2.19 mls/hr Q12H IV Last administered on 02:16; Admin Dose 6.57 MLS/HR; Start 01/08/17 at 16:00 Miscellaneous Information FULVESTRANT 250 MG/5 ML SYG: PLE... Q8H XX Last administered on 01/11/17 23:35; Admin Dose 1 EA; Start 01/09/17 at 08:00 Vancomycin HCl/ Sodium Chloride (Vancocin/NS) 150 ml @ 75 mls/hr Q48H IVPB Last administered on 01/11/17 05:59; Admin Dose 75 MLS/HR; Start 01/11/17 at 06 :00 Miscellaneous Information (*Rx Drug Level Order Reminder*) VANCOMYCIN TROUGH AT 0500 ONCE ONCE XX ; Start 01/13/17 at 05:00; Stop 01/13/17 at 05:01 Assessment/Plan Chief Complaint/Hosp Course Assessment: 1. s/p cardiopulmonary arrest: Most likely due to pulmonary arrest 2. P afib: 3. History of renal failure status post renal transplant: now with KATI on CKD 4. Acute on chronic hypoxemic hypercapnic respiratory failure status post reintubation: currently on the vent 5. Shock: resolved now. currently hypertensive, but controlled. 6. ANEMIA 7. breast cancer 8. history of HTN: 9. anxiety 10. DM 11. Hypothyroidism: on synthroid. 12. pleural effusion : s/p thoracentesis Recommendations: cont eliquis as long as no signs of active bleeding and no surgery/ procedure is planned. vent support for now anti- rejection medications to be adjusted as per renal team cont DM control thyroid supplement dec betablocker due to low BP. correct lytes prn cont tele monitoring cont ICU care. Thank you for this referral I will continue to follow along with you. AUGUSTINA MALDONADO MD [facility] Problems: AUGUSTINA MALDONADO MD Jan 12, 2017 18:24
[2017-01-12] MEDS: MIRTAZAPINE 15 MG TAB PO SCH (21:10)
[2017-01-12] MEDS: SENNA TAB PO SCH (21:11)
--- NOTE | 2017-01-12 21:51 | CONS ---
Date/Time of Note Date/Time of Note DATE: 01/12/17 TIME: 21:50 Assessment/Plan Assessment/Plan Chief Complaint/Hosp Course History of breast cancer with lung metastasis. The patient is on medical management. cont Faslodex as outpt Anemia. Monitor hemoglobin and hematocrit levels. [employer]UK[employer] s/p cardiopulmonary arrest: Most likely due to pulmonary arrest P afib: currently in NSR History of renal failure status post renal transplant Acute on chronic hypoxemic hypercapnic respiratory failure status post tracheostomy currently on the vent POST THORACENTESIS AWAIT CYTOLOGY Shock: currently blood pressure has improved Chronic obstructive pulmonary disease exacerbation. Congestive heart failure exacerbation. Hypothyroidism. Diabetes. Continue current insulin regimen. Pulmonary hypertension. Depression. Problems: Consultation Date/Type/Reason Admit Date/Time Jan 05, 2017 at 00:15 Initial Consult Date 01/05/17 [facility]erring Provider: SUSAN SIMENTAL DO 24 HR Interval Summary Free Text/Dictation all noted d/w RN Exam/Review of Systems Vital Signs Vitals Vital Signs Date Time Temp Pulse Resp B/P Pulse Ox O2 Delivery O2 Flow Rate FiO2 01/12/17 21:35 78 12 100 30 01/12/17 17:30 103/47 01/12/17 14:33 97.5 01/11/17 23:30 Mechanical Ventilator Intake and Output 01/11/17 01/11/17 01/12/17 15:00 23:00 07:00 Intake Total 577.520 ml 1058.454 ml 704.982 ml Output Total 150 ml 240 ml 370 ml Balance 427.520 ml 818.454 ml 334.982 ml Exam HEENT: Head is normocephalic. NECK: Supple. HEART: Regular rate. LUNGS: Show diminished breath sounds at the base. ABDOMEN: Soft, nontender to palpation. No rebound or guarding. EXTREMITIES: Negative for clubbing, cyanosis. No edema. DERMATOLOGIC: Clean. No rashes. MUSCULOSKELETAL: No joint effusion. NEUROLOGIC: No change in exam. + SCROTAL EDEMA NO NEW PETECHIA OR HEMATOMA Results Result Diagram: 01/12/17 0400 01/12/17 0400 Results 24 hrs Laboratory Tests Test 01/12/17 00:55 01/12/17 04:00 01/12/17 04:19 01/12/17 07:54 Bedside Glucose 154 155 191 White Blood Count 8.9 Red Blood Count 2.87 L Hemoglobin 8.6 L Hematocrit 26.1 L Mean Corpuscular Volume 90.9 Mean Corpuscular Hemoglobin 30.0 Mean Corpuscular Hemoglobin Concent 33.0 Red Cell Distribution Width 14.9 H Platelet Count 260 Mean Platelet Volume 10.2 Neutrophils % 77.6 H Lymphocytes % 8.3 L Monocytes % 7.5 Eosinophils % 3.5 Basophils % 0.2 Nucleated Red Blood Cells % 0.0 Neutrophils # 6.9 Lymphocytes # 0.7 L Monocytes # 0.7 Eosinophils # 0.3 Basophils # 0.0 Nucleated Red Blood Cells # 0.0 Sodium Level 126 L Potassium Level 3.7 Chloride Level 94 L Carbon Dioxide Level 27 Anion Gap 9 Blood Urea Nitrogen 73 H Creatinine 2.55 H Glucose Level 147 # Lactic Acid Level 1.4 Calcium Level 9.0 Phosphorus Level 4.1 Magnesium Level 2.3 Test 01/12/17 12:10 01/12/17 17:52 01/12/17 18:26 01/12/17 21:06 Bedside Glucose 143 167 160 163 Medications Medications Current Medications Cefepime HCl (Maxipime 2gm/50 ml (Pmx)) 50 ml @ 100 mls/hr DAILY IVPB Last administered on 01/12/17 10:05; Admin Dose 100 MLS/HR; Start 01/05/17 at 02:30 Naloxone HCl (Narcan) 0.4 mg Q4 PRN IV SEDATION; Start 01/05/17 at 01:30 Vancomycin HCl (Vanco Iv Per Pharmacy) PER PHARMACY DOSING NOTE XX ; Start 01/05 at 02:00 Acetaminophen (Tylenol Tab) 650 mg Q6H PRN PO PAIN AND OR ELEVATED TEMP; Start 01/05/17 at 10:30 Apixaban (Eliquis) 2.5 mg BID PO Last administered on 01/12/17 21:05; Admin Dose 2.5 MG; Start 01/05/17 at 10:30 Ascorbic Acid (Vitamin C) 500 mg BID PO Last administered on 01/12/17 21:11; Admin Dose 500 MG; Start 01/05/17 at 10:30 Bisacodyl (Dulcolax Supp) 10 mg DAILY ID Last administered on 01/12/17 12:34; Admin Dose 10 MG; Start 01/06/17 at 09:00 Budesonide (Pulmicort (Neb)) 0.25 mg BID NEB Last administered on 01/12/17 21: 33; Admin Dose 0.25 MG; Start 01/05/17 at 10:30 Docusate Sodium (Colace) 100 mg BID PO Last administered on 01/12/17 21:11; Admin Dose 100 MG; Start 01/05/17 at 10:30 Fluticasone Propionate (Flonase 0.05% Nasal) 1 spray DAILY NASAL Last administered on 01/11/17 09:19; Admin Dose 1 SPRAY; Start 01/05/17 at 11:00 Fulvestrant (Faslodex) 500 mg Q28D IM ; Start 01/05/17 at 10:30; Status UNV Insulin Glargine (Lantus) 18 unit DAILY SC Last administered on 01/12/17 10:03 ; Admin Dose 18 UNIT; Start 01/05/17 at 10:30 Loratadine (Claritin) 10 mg DAILY PO Last administered on 01/12/17 10:01; Admin Dose 10 MG; Start 01/05/17 at 11:00 Magnesium Hydroxide (Milk Of Mag) 30 ml BID PRN PO CONSTIPATION; Start at 10:30 Magnesium Oxide (Mag-Ox 400) 400 mg DAILY PO Last administered on 01/12/17 10: 01; Admin Dose 400 MG; Start 01/05/17 at 10:30 Mirtazapine (Remeron) 15 mg HS PO Last administered on 01/12/17 21:10; Admin Dose 15 MG; Start 01/05/17 at 21:00 Nitroglycerin (Nitroglycerin 2% Oint) 0.5 inch Q6 PRN TD CHEST PAIN; Start 03/13 at 10:30 Ondansetron HCl (Zofran Inj) 4 mg Q6H PRN IV NAUSEA Last administered on 15:55; Admin Dose 4 MG; Start 01/05/17 at 10:30 Sertraline HCl (Zoloft) 75 mg DAILY PO Last administered on 01/12/17 10:01; Admin Dose 75 MG; Start 01/05/17 at 10:30 Sildenafil Citrate (Revatio) 20 mg TID PO Last administered on 01/12/17 21:10 ; Admin Dose 20 MG; Start 01/05/17 at 13:00 Tacrolimus (Prograf) 2 mg QPM PO Last administered on 01/12/17 21:12; Admin Dose 2 MG; Start 01/05/17 at 21:00 Pantoprazole (Protonix Tab) 40 mg DAILY@06 PO Last administered on 01/12/17 05 :53; Admin Dose 40 MG; Start 01/06/17 at 06:00 Senna (Senokot) 1 tab HS PO Last administered on 01/12/17 21:11; Admin Dose 1 TAB; Start 01/05/17 at 21:00 Prednisone (Prednisone) 5 mg DAILY PO Last administered on 01/12/17 10:00; Admin Dose 5 MG; Start 01/05/17 at 12:00 Prednisone (Prednisone) 3 mg DAILY PO Last administered on 01/12/17 10:02; Admin Dose 3 MG; Start 01/05/17 at 12:00 Miscellaneous Information 1 ea NOTE XX ; Start 01/05/17 at 11:00 Glucose (Glutose) 15 gm Q15M PRN PO DECREASED GLUCOSE; Start 01/05/17 at 11:00 Glucose (Glutose) 22.5 gm Q15M PRN PO DECREASED GLUCOSE; Start 01/05/17 at 11: 00 Dextrose (D50w Syringe) 25 ml Q15M PRN IV DECREASED GLUCOSE Last administered on 01/09/17 04:45; Admin Dose 25 ML; Start 01/05/17 at 11:00 Dextrose (D50w Syringe) 50 ml Q15M PRN IV DECREASED GLUCOSE Last administered on 01/08/17 21:33; Admin Dose 50 ML; Start 01/05/17 at 11:00 Glucagon (Glucagen) 1 mg Q15M PRN IM DECREASED GLUCOSE; Start 01/05/17 at 11:00 Glucose (Glutose) 15 gm Q15M PRN BUCCAL DECREASED GLUCOSE; Start 01/05/17 at 11 :00 Oxcarbazepine (Trileptal) 600 mg BID PO Last administered on 01/12/17 21:10; Admin Dose 600 MG; Start 01/05/17 at 12:00 Insulin Aspart NOVOLOG *MILD* ALGORI... Q4 SC Last administered on 01/12/17 21 :08; Admin Dose 1 UNIT; Start 01/05/17 at 13:00 Fentanyl 100 ml @ 2.5 mls/hr TITRATE IV Last administered on 01/07/17 02:25; Admin Dose 7.5 MLS/HR; Start 01/06/17 at 09:30 Norepinephrine/ Dextrose (Levophed/D5W) 500 ml @ 0 mls/hr TITRATE IV ; Start 04/12 at 13:30 Bumetanide 1 mg 1 mg BID IV Last administered on 01/12/17 21:14; Admin Dose 1 MG; Start 01/08/17 at 09:00 Caspofungin 50 mg/ Sodium Chloride 250 ml @ 250 mls/hr Q24H IVPB Last administered on 01/12/17 12:35; Admin Dose 250 MLS/HR; Start 01/09/17 at 15:00 Propofol (Diprivan) 100 ml @ 2.19 mls/hr Q12H IV Last administered on 02:16; Admin Dose 6.57 MLS/HR; Start 01/08/17 at 16:00 Miscellaneous Information FULVESTRANT 250 MG/5 ML SYG: PLE... Q8H XX Last administered on 01/11/17 23:35; Admin Dose 1 EA; Start 01/09/17 at 08:00 Vancomycin HCl/ Sodium Chloride (Vancocin/NS) 150 ml @ 75 mls/hr Q48H IVPB Last administered on 01/11/17 05:59; Admin Dose 75 MLS/HR; Start 01/11/17 at 06 :00 Miscellaneous Information (*Rx Drug Level Order Reminder*) VANCOMYCIN TROUGH AT 0500 ONCE ONCE XX ; Start 01/13/17 at 05:00; Stop 01/13/17 at 05:01 Metoprolol Tartrate (Lopressor) 25 mg BID PO Last administered on 01/12/17 21: 11; Admin Dose 25 MG; Start 01/12/17 at 21:00 SHANICE DAVENPORT MD Jan 12, 2017 21:51
[2017-01-13] VITALS (70 sets, daily range): BP systolic 97–161; BP diastolic 39–107; PULSE 69–127; RESP 12–33
[2017-01-13] MEDS: INSULIN ASPART [NOVOLOG] 3 ML PEN SC SCH ×6 (00:04→21:13)
[2017-01-13] MEDS: ALBUTEROL 18 GM INHALER INH SCH ×4 (01:21→19:19)
[2017-01-13] MEDS: IPRATROPIUM (HFA) 12.9 GM INHALER INH SCH ×4 (01:21→19:19)
[2017-01-13] MEDS: PROPOFOL 100 ML IV SCH ×2 (04:00→06:07)
[2017-01-13 05:33] LABS: BASOPHILS % 0.1 % (0.0-2.0); EOSINOPHILS # 0.3 10^3/ul (0.0-0.5); EOSINOPHILS % 3.4 % (0.0-7.0); HEMATOCRIT 25.3 % (37.0-47.0); HEMOGLOBIN 8.3 g/dl (12.0-16.0); LYMPHOCYTES # 0.8 10^3/ul (0.8-2.9); LYMPHOCYTES % 8.1 % (15.0-51.0); MEAN CORPUSCULAR HEMOGLOBIN 30.2 pg (29.0-33.0); MEAN CORPUSCULAR HGB CONC 32.8 g/dl (32.0-37.0); MEAN PLATELET VOLUME 10.1 fl (7.4-10.4); MONOCYTE # 0.7 10^3/ul (0.3-0.9); MONOCYTES % 6.7 % (0.0-11.0); NEUTROPHIL # 7.6 10^3/ul (1.6-7.5); NEUTROPHILS % 77.5 % (39.0-77.0); PLATELET COUNT 256 10^3/UL (140-415); RED BLOOD COUNT 2.75 10^6/ul (4.20-5.40); WHITE BLOOD COUNT 9.7 10^3/ul (4.8-10.8)
[2017-01-13] MEDS: LEVOTHYROXINE 75 MCG TAB PO SCH (06:07)
[2017-01-13] MEDS: VANCOMYCIN 750 MG in SOD CHLORIDE 0.9% 150 ML IVPB SCH (06:07)
[2017-01-13] MEDS: PANTOPRAZOLE (EC) 40 MG TAB PO SCH (06:07)
[2017-01-13 06:43] LABS: CREATININE 2.51 mg/dl (0.44-1.00); MAGNESIUM 2.3 mg/dl (1.7-2.5); PHOSPHORUS 4.1 mg/dl (2.5-4.9); POTASSIUM 3.7 mmol/L (3.5-5.1)
[2017-01-13] MEDS: BUDESONIDE (NEB) 0.25 MG/2 ML AMP NEB SCH ×2 (07:51→20:00)
[2017-01-13] MEDS: [UNRECOGNIZED DRUG - REMARK] XX SCH ×2 (08:00)
[2017-01-13] MEDS: CEFEPIME 2GM/50 ML (PMX) 50 ML IVPB SCH (08:53)
[2017-01-13] MEDS: BUMETANIDE 1 MG INJ IV SCH ×2 (09:05→21:06)
[2017-01-13] MEDS: predniSONE 1 MG TAB PO SCH (09:09)
[2017-01-13] MEDS: APIXABAN 5 MG TABLET PO SCH ×2 (09:09→21:05)
[2017-01-13] MEDS: DOCUSATE SODIUM 100 MG CAP PO SCH ×2 (09:09→21:06)
[2017-01-13] MEDS: TACROLIMUS 1 MG CAP PO SCH ×2 (09:09→21:05)
[2017-01-13] MEDS: predniSONE 5 MG TAB PO SCH (09:09)
--- NOTE | 2017-01-13 09:09 | PN ---
DATE: 01/13/2017 SUBJECTIVE DATA: The patient remains critically ill, on full ventilatory support. The patient is unable to be weaned. No other acute events noted. No hemoptysis, hematemesis, hematochezia. OBJECTIVE DATA: VITAL SIGNS: Blood pressure 119/62, respirations 16, pulse 105, temperature 98.6. HEENT: Head is normocephalic. NECK: Supple. HEART: Regular rate. LUNGS: Diminished breath sounds at the base. ABDOMEN: Soft, nontender to palpation. No rebound or guarding. EXTREMITIES: Negative for clubbing, cyanosis. No edema. DERMATOLOGIC: No rashes. MUSCULOSKELETAL: No joint effusion. NEUROLOGIC: Unchanged exam. MEDICATIONS: Reviewed. LABORATORY AND DIAGNOSTIC DATA: Sodium 137, potassium 3.7, chloride 95, BUN 79, creatinine 2.51. White count 9.7, hemoglobin 8.3, hematocrit 25.3, platelet count 256. The patient's cultures have been reviewed. Chest x-ray on January 12 was reviewed, no significant change. ASSESSMENT AND PLAN: 1. Ventilatory-dependent respiratory failure. Vent settings and ABGs reviewed. Continue weaning per Pulmonary. 2. Acute congestive heart failure exacerbation. Continue current diuretic regimen. 3. Sepsis status post shock. Etiology secondary to pneumonia. Continue current antibiotic regimen. 4. Paroxysmal atrial fibrillation. Currently sinus rhythm. Continue to monitor. 5. Hyponatremia. Secondary to acute kidney injury causing decreased free water urinary excretion. Continue to limit free water intake and monitor. 6. Nonoliguric acute kidney injury on top of chronic allograft failure with previous baseline creatinine of 1.5 to 1.7 mg/dL. Etiology of acute kidney injury secondary to acute tubular necrosis due to code arrest. The patient's renal function appears to be stabilizing around creatinine of 2.5 mg/dL. Continue to monitor closely. Prograf levels were reviewed. 7. History of end-stage renal disease. Status post renal transplant with chronic allograft failure. The patient is currently in acute kidney injury as stated above. Continue current immunosuppressive regimen. Continue Prograf and prednisone. 8. Hypothyroidism. Continue Synthroid. 9. Anemia. Monitor H and H levels. 10. History of breast cancer. Continue to monitor. Follow up with Oncology. 11. Diabetes. Continue current insulin regimen. 12. Pulmonary hypertension. 13. Anxiety and depression. Continue medical management. 14. Gastrointestinal and deep venous thrombosis prophylaxis. 15. Nutrition. Continue tube feeding. Please note, I spent over 35 minutes of critical care time with this patient. Dictated By: Cameron Rosenthal DO /[email or web address]/[email or web address] /Document#: [id number]
[2017-01-13] MEDS: OXCARBAZEPINE 300 MG TAB PO SCH ×2 (09:10→21:04)
[2017-01-13] MEDS: SERTRALINE 50 MG TAB PO SCH (09:10)
[2017-01-13] MEDS: ASCORBIC ACID 500 MG TAB PO SCH ×2 (09:10→21:05)
[2017-01-13] MEDS: SILDENAFIL 20 MG TAB PO SCH ×3 (09:11→21:04)
[2017-01-13] MEDS: MAGNESIUM OXIDE 400 MG TAB PO SCH (09:11)
[2017-01-13] MEDS: METOPROLOL 25 MG TAB PO SCH ×2 (09:11→21:05)
[2017-01-13] MEDS: BISACODYL 10 MG SUPP PR SCH (09:12)
[2017-01-13] MEDS: BALSAM PERU/CASTOR OIL 60 GM TUBE TOP SCH (09:25)
[2017-01-13] MEDS: FLUTICASONE 0.05% 16 GM NAS SPRAY NASAL SCH (09:26)
[2017-01-13] MEDS: INSULIN GLARGINE [LANtus] 3 ML PEN SC SCH (09:35)
[2017-01-13] MEDS: LORATADINE 10 MG TAB PO SCH (09:38)
--- NOTE | 2017-01-13 10:18 | CONS ---
Date/Time of Note Date/Time of Note DATE: 01/13/17 TIME: 10:17 Consult Date/Type/Reason Admit Date/Time Jan 05, 2017 at 00:15 Initial Consult Date 01/05/17 Type of Consultation: Pulmonary Ordering Provider: SUSAN SIMENTAL DO Subjective Patient awake alert this morning on mechanical ventilation. Currently hemodynamically stable. Objective Vital Signs Date Time Temp Pulse Resp B/P Pulse Ox O2 Delivery O2 Flow Rate FiO2 01/13/17 08:00 90 01/13/17 06:45 16 119/62 97 01/13/17 06:00 Mechanical Ventilator 01/13/17 05:23 30 01/13/17 04:00 97.5 Intake and Output 01/12/17 01/12/17 01/13/17 15:00 23:00 07:00 Intake Total 271.1 ml 573.15 ml 415.66 ml Output Total 150 ml 160 ml 290 ml Balance 121.1 ml 413.15 ml 125.66 ml Exam PHYSICAL EXAMINATION GENERAL: Elderly lady on mechanical ventilation VITAL SIGNS: see below. HEENT: Pupils equal, round, and reactive to light. CARDIAC: S1, S2, 1/6 systolic ejection murmur CHEST: Diminished air entry bilaterally. ABDOMEN: Mildly distended. Bowel sounds present no guarding or rebound EXTREMITIES: No cyanosis, clubbing edema +1 NEUROLOGIC: Generalized weakness Results/Medications Result Diagram: 01/13/17 0400 01/13/17 0400 Results 24 hrs Laboratory Tests Test 01/12/17 12:10 01/12/17 17:52 01/12/17 18:26 01/12/17 21:06 Bedside Glucose 143 167 160 163 Test 01/13/17 00:03 01/13/17 04:00 01/13/17 04:20 01/13/17 09:19 Bedside Glucose 114 112 164 White Blood Count 9.7 Red Blood Count 2.75 L Hemoglobin 8.3 L Hematocrit 25.3 L Mean Corpuscular Volume 92.0 Mean Corpuscular Hemoglobin 30.2 Mean Corpuscular Hemoglobin Concent 32.8 Red Cell Distribution Width 15.0 H Platelet Count 256 Mean Platelet Volume 10.1 Neutrophils % 77.5 H Lymphocytes % 8.1 L Monocytes % 6.7 Eosinophils % 3.4 Basophils % 0.1 Nucleated Red Blood Cells % 0.0 Neutrophils # 7.6 H Lymphocytes # 0.8 Monocytes # 0.7 Eosinophils # 0.3 Basophils # 0.0 Nucleated Red Blood Cells # 0.0 Sodium Level 127 L Potassium Level 3.7 Chloride Level 95 L Carbon Dioxide Level 25 Anion Gap 11 Blood Urea Nitrogen 79 H Creatinine 2.51 H Glucose Level 122 Calcium Level 9.0 Phosphorus Level 4.1 Magnesium Level 2.3 Vancomycin Level Trough 22.8 *H Medications Current Medications Cefepime HCl (Maxipime 2gm/50 ml (Pmx)) 50 ml @ 100 mls/hr DAILY IVPB Last administered on 01/13/17 08:53; Admin Dose 100 MLS/HR; Start 01/05/17 at 02:30 Naloxone HCl (Narcan) 0.4 mg Q4 PRN IV SEDATION; Start 01/05/17 at 01:30 Vancomycin HCl (Vanco Iv Per Pharmacy) PER PHARMACY DOSING NOTE XX ; Start 01/05 at 02:00 Acetaminophen (Tylenol Tab) 650 mg Q6H PRN PO PAIN AND OR ELEVATED TEMP; Start 01/05/17 at 10:30 Apixaban (Eliquis) 2.5 mg BID PO Last administered on 01/13/17 09:09; Admin Dose 2.5 MG; Start 01/05/17 at 10:30 Ascorbic Acid (Vitamin C) 500 mg BID PO Last administered on 01/13/17 09:10; Admin Dose 500 MG; Start 01/05/17 at 10:30 Bisacodyl (Dulcolax Supp) 10 mg DAILY NM Last administered on 01/13/17 09:12; Admin Dose 10 MG; Start 01/06/17 at 09:00 Budesonide (Pulmicort (Neb)) 0.25 mg BID NEB Last administered on 01/13/17 07: 51; Admin Dose 0.25 MG; Start 01/05/17 at 10:30 Docusate Sodium (Colace) 100 mg BID PO Last administered on 01/13/17 09:09; Admin Dose 100 MG; Start 01/05/17 at 10:30 Fluticasone Propionate (Flonase 0.05% Nasal) 1 spray DAILY NASAL Last administered on 01/13/17 09:26; Admin Dose 1 SPRAY; Start 01/05/17 at 11:00 Fulvestrant (Faslodex) 500 mg Q28D IM ; Start 01/05/17 at 10:30; Status UNV Insulin Glargine (Lantus) 18 unit DAILY SC Last administered on 01/13/17 09:35 ; Admin Dose 18 UNIT; Start 01/05/17 at 10:30 Loratadine (Claritin) 10 mg DAILY PO Last administered on 01/13/17 09:38; Admin Dose 10 MG; Start 01/05/17 at 11:00 Magnesium Hydroxide (Milk Of Mag) 30 ml BID PRN PO CONSTIPATION; Start at 10:30 Magnesium Oxide (Mag-Ox 400) 400 mg DAILY PO Last administered on 01/13/17 09: 11; Admin Dose 400 MG; Start 01/05/17 at 10:30 Mirtazapine (Remeron) 15 mg HS PO Last administered on 01/12/17 21:10; Admin Dose 15 MG; Start 01/05/17 at 21:00 Nitroglycerin (Nitroglycerin 2% Oint) 0.5 inch Q6 PRN TD CHEST PAIN; Start 03/13 at 10:30 Ondansetron HCl (Zofran Inj) 4 mg Q6H PRN IV NAUSEA Last administered on 15:55; Admin Dose 4 MG; Start 01/05/17 at 10:30 Sertraline HCl (Zoloft) 75 mg DAILY PO Last administered on 01/13/17 09:10; Admin Dose 75 MG; Start 01/05/17 at 10:30 Sildenafil Citrate (Revatio) 20 mg TID PO Last administered on 01/13/17 09:11 ; Admin Dose 20 MG; Start 01/05/17 at 13:00 Tacrolimus (Prograf) 2 mg QPM PO Last administered on 01/12/17 21:12; Admin Dose 2 MG; Start 01/05/17 at 21:00 Pantoprazole (Protonix Tab) 40 mg DAILY@06 PO Last administered on 01/13/17 06 :07; Admin Dose 40 MG; Start 01/06/17 at 06:00 Senna (Senokot) 1 tab HS PO Last administered on 01/12/17 21:11; Admin Dose 1 TAB; Start 01/05/17 at 21:00 Prednisone (Prednisone) 5 mg DAILY PO Last administered on 01/13/17 09:09; Admin Dose 5 MG; Start 01/05/17 at 12:00 Prednisone (Prednisone) 3 mg DAILY PO Last administered on 01/13/17 09:09; Admin Dose 3 MG; Start 01/05/17 at 12:00 Miscellaneous Information 1 ea NOTE XX ; Start 01/05/17 at 11:00 Glucose (Glutose) 15 gm Q15M PRN PO DECREASED GLUCOSE; Start 01/05/17 at 11:00 Glucose (Glutose) 22.5 gm Q15M PRN PO DECREASED GLUCOSE; Start 01/05/17 at 11: 00 Dextrose (D50w Syringe) 25 ml Q15M PRN IV DECREASED GLUCOSE Last administered on 01/09/17 04:45; Admin Dose 25 ML; Start 01/05/17 at 11:00 Dextrose (D50w Syringe) 50 ml Q15M PRN IV DECREASED GLUCOSE Last administered on 01/08/17 21:33; Admin Dose 50 ML; Start 01/05/17 at 11:00 Glucagon (Glucagen) 1 mg Q15M PRN IM DECREASED GLUCOSE; Start 01/05/17 at 11:00 Glucose (Glutose) 15 gm Q15M PRN BUCCAL DECREASED GLUCOSE; Start 01/05/17 at 11 :00 Oxcarbazepine (Trileptal) 600 mg BID PO Last administered on 01/13/17 09:10; Admin Dose 600 MG; Start 01/05/17 at 12:00 Insulin Aspart NOVOLOG *MILD* ALGORI... Q4 SC Last administered on 01/13/17 09 :29; Admin Dose 1 UNIT; Start 01/05/17 at 13:00 Fentanyl 100 ml @ 2.5 mls/hr TITRATE IV Last administered on 01/07/17 02:25; Admin Dose 7.5 MLS/HR; Start 01/06/17 at 09:30 Norepinephrine/ Dextrose (Levophed/D5W) 500 ml @ 0 mls/hr TITRATE IV ; Start 04/12 at 13:30 Bumetanide 1 mg 1 mg BID IV Last administered on 01/13/17 09:05; Admin Dose 1 MG; Start 01/08/17 at 09:00 Caspofungin 50 mg/ Sodium Chloride 250 ml @ 250 mls/hr Q24H IVPB Last administered on 01/12/17 12:35; Admin Dose 250 MLS/HR; Start 01/09/17 at 15:00 Propofol (Diprivan) 100 ml @ 2.19 mls/hr Q12H IV Last administered on 06:07; Admin Dose 4.38 MLS/HR; Start 01/08/17 at 16:00 Miscellaneous Information (*Order Clarification Bulletin) FULVESTRANT 250 MG/5 ML SYG: PLE... Q8H XX Last administered on 01/13/17 00:00; Admin Dose 1 EA; Start 01/09/17 at 08:00 Metoprolol Tartrate (Lopressor) 25 mg BID PO Last administered on 01/13/17 09: 11; Admin Dose 25 MG; Start 01/12/17 at 21:00 Assessment/Plan Chief Complaint/Hosp Course IMPRESSION: 1. Hypoxemic respiratory failure. Status post thoracentesis. 2. Possible altered mental status secondary to opioids. Significant anxiety component. 3. History of renal transplant. Renal insufficiency. PLAN: 1. CPAP weaning trial this morning. 2. Decrease sedation as tolerated. 3. Continue ID recommendations 4. Renal recommendations. 5. DVT and GI prophylaxis. Critical care time 40 minutes. Problems: LESA SAMUELS MD[facility] Jan 13, 2017 10:18
[2017-01-13 12:37] LABS: AADO2 Arterial 92.8 mmHg (7.0-24.0); Allen Test ACCEPTAB; Arterial Base Excess -5.8 mmol/L (-3.0-3); Arterial COHb 0.3 % (0.0-3.0); Arterial Fraction of Oxyhgb 93.4 % (93.0-99.0); Arterial MetHb 0.4 % (0.0-1.5); Blood Gas PS 10; MODE VENT - CPAP
--- NOTE | 2017-01-13 13:11 | CONS ---
Date/Time of Note Date/Time of Note DATE: 01/13/17 TIME: 13:10 Consult Date/Type/Reason Admit Date/Time Jan 05, 2017 at 00:15 Initial Consult Date 01/05/17 Type of Consultation: CARDIOLOGY Ordering Provider: SUSAN SIMENTAL DO Subjective CARDIOLOGY FOLLOW UP NOTE: D/W Staff and rhythm was reviewed. pt has remained in Afib. HR has been stable mostly last night but elevated now D/W family at bedside. pt remains intubated on vent NOW. pt was extubated on 01/07/17 but had to be re- intubated again the same night due to resp distress even on BIPAP. NO reports of any chest pain or pressure OBJECTIVE: General: intubated on vent. HEENT: NC/AT. pupils are equal. round. NECK: NO JVD. no stridor. CV:irregularly irregular. systolic murmur; no gallop or rubs. PULM: no wheezing, + mild rhonchi. GI: SOFT, NT, ND, no rebound or guarding Extremity: trace B/L LE edema. no clubbing. neuro: opens her eyes to verbal stimuli . . Psych: unable to assess rectal: deferred : normal ECHO 12/16/16: Personally reviewed 1. Normal left ventricular systolic function. Normal left ventricular cavity size. Moderate concentric left ventricular hypertrophy. Ejection fraction is visually estimated at 65 %. Abnormal Diastolic Function. 2. There is moderate enlargement of left atrium. 3. Mild mitral leaflet calcification. Mild mitral annular calcification. Trace mitral regurgitation. 4. Aortic sclerosis without stenosis. Trace aortic valve regurgitation. 5. Normal appearance of the tricuspid valve. Estimated peak PA systolic pressure 38 mmHg. There is mild tricuspid regurgitation. Objective Vital Signs Date Time Temp Pulse Resp B/P Pulse Ox O2 Delivery O2 Flow Rate FiO2 01/13/17 10:00 90 24 93 30 01/13/17 06:45 119/62 01/13/17 06:00 Mechanical Ventilator 01/13/17 04:00 97.5 Intake and Output 01/12/17 01/12/17 01/13/17 15:00 23:00 07:00 Intake Total 271.1 ml 573.15 ml 415.66 ml Output Total 150 ml 160 ml 290 ml Balance 121.1 ml 413.15 ml 125.66 ml Results/Medications Result Diagram: 01/13/17 0400 01/13/17 0400 Results 24 hrs Laboratory Tests Test 01/12/17 17:52 01/12/17 18:26 01/12/17 21:06 01/13/17 00:03 Bedside Glucose 167 160 163 114 Test 01/13/17 04:00 01/13/17 04:20 01/13/17 09:19 01/13/17 12:00 White Blood Count 9.7 Red Blood Count 2.75 L Hemoglobin 8.3 L Hematocrit 25.3 L Mean Corpuscular Volume 92.0 Mean Corpuscular Hemoglobin 30.2 Mean Corpuscular Hemoglobin Concent 32.8 Red Cell Distribution Width 15.0 H Platelet Count 256 Mean Platelet Volume 10.1 Neutrophils % 77.5 H Lymphocytes % 8.1 L Monocytes % 6.7 Eosinophils % 3.4 Basophils % 0.1 Nucleated Red Blood Cells % 0.0 Neutrophils # 7.6 H Lymphocytes # 0.8 Monocytes # 0.7 Eosinophils # 0.3 Basophils # 0.0 Nucleated Red Blood Cells # 0.0 Sodium Level 127 L Potassium Level 3.7 Chloride Level 95 L Carbon Dioxide Level 25 Anion Gap 11 Blood Urea Nitrogen 79 H Creatinine 2.51 H Glucose Level 122 Calcium Level 9.0 Phosphorus Level 4.1 Magnesium Level 2.3 Vancomycin Level Trough 22.8 *H Bedside Glucose 112 164 Blood Gas Specimen Source Blood arterial Arterial Blood Date Drawn 01/13/2017 12:06:22 PM Arterial Blood pH (Temp corrected) 7.362 Arterial Blood pCO2 (Temp correct) 34.2 L Arterial Blood pO2 (Temp corrected) 80.9 Arterial Blood HCO3 19.0 L Arterial Blood Base Excess -5.8 L Arterial Blood Oxygen Saturation 94.1 L Rey Test ACCEPTAB Arterial Blood Gas Puncture Site Right Radial Arterial Blood Carboxyhemoglobin 0.3 Arterial Blood Methemoglobin 0.4 Blood Gas A-a O2 Differential 92.8 H Oxyhemoglobin Percent 93.4 Total Hemoglobin 9.0 L Blood Gas Temperature 37.0 Blood Gas Actual Respiration Rate 30 Blood Gas Modality VENT - CPAP FiO2 30.0 Blood Gas Low PEEP Setting 5.0 Blood Gas Pressure Support 10 Blood Gas Notified Whom TM Blood Gas Notified Time 01/13/2017 12:37:03 PM Medications Current Medications Cefepime HCl (Maxipime 2gm/50 ml (Pmx)) 50 ml @ 100 mls/hr DAILY IVPB Last administered on 01/13/17 08:53; Admin Dose 100 MLS/HR; Start 01/05/17 at 02:30 Naloxone HCl (Narcan) 0.4 mg Q4 PRN IV SEDATION; Start 01/05/17 at 01:30 Vancomycin HCl (Vanco Iv Per Pharmacy) PER PHARMACY DOSING NOTE XX ; Start 01/05 at 02:00 Acetaminophen (Tylenol Tab) 650 mg Q6H PRN PO PAIN AND OR ELEVATED TEMP; Start 01/05/17 at 10:30 Apixaban (Eliquis) 2.5 mg BID PO Last administered on 01/13/17 09:09; Admin Dose 2.5 MG; Start 01/05/17 at 10:30 Ascorbic Acid (Vitamin C) 500 mg BID PO Last administered on 01/13/17 09:10; Admin Dose 500 MG; Start 01/05/17 at 10:30 Bisacodyl (Dulcolax Supp) 10 mg DAILY NE Last administered on 01/13/17 09:12; Admin Dose 10 MG; Start 01/06/17 at 09:00 Budesonide (Pulmicort (Neb)) 0.25 mg BID NEB Last administered on 01/13/17 07: 51; Admin Dose 0.25 MG; Start 01/05/17 at 10:30 Docusate Sodium (Colace) 100 mg BID PO Last administered on 01/13/17 09:09; Admin Dose 100 MG; Start 01/05/17 at 10:30 Fluticasone Propionate (Flonase 0.05% Nasal) 1 spray DAILY NASAL Last administered on 01/13/17 09:26; Admin Dose 1 SPRAY; Start 01/05/17 at 11:00 Fulvestrant (Faslodex) 500 mg Q28D IM ; Start 01/05/17 at 10:30; Status UNV Insulin Glargine (Lantus) 18 unit DAILY SC Last administered on 01/13/17 09:35 ; Admin Dose 18 UNIT; Start 01/05/17 at 10:30 Loratadine (Claritin) 10 mg DAILY PO Last administered on 01/13/17 09:38; Admin Dose 10 MG; Start 01/05/17 at 11:00 Magnesium Hydroxide (Milk Of Mag) 30 ml BID PRN PO CONSTIPATION; Start at 10:30 Magnesium Oxide (Mag-Ox 400) 400 mg DAILY PO Last administered on 01/13/17 09: 11; Admin Dose 400 MG; Start 01/05/17 at 10:30 Mirtazapine (Remeron) 15 mg HS PO Last administered on 01/12/17 21:10; Admin Dose 15 MG; Start 01/05/17 at 21:00 Nitroglycerin (Nitroglycerin 2% Oint) 0.5 inch Q6 PRN TD CHEST PAIN; Start 03/13 at 10:30 Ondansetron HCl (Zofran Inj) 4 mg Q6H PRN IV NAUSEA Last administered on 15:55; Admin Dose 4 MG; Start 01/05/17 at 10:30 Sertraline HCl (Zoloft) 75 mg DAILY PO Last administered on 01/13/17 09:10; Admin Dose 75 MG; Start 01/05/17 at 10:30 Sildenafil Citrate (Revatio) 20 mg TID PO Last administered on 01/13/17 09:11 ; Admin Dose 20 MG; Start 01/05/17 at 13:00 Tacrolimus (Prograf) 2 mg QPM PO Last administered on 01/12/17 21:12; Admin Dose 2 MG; Start 01/05/17 at 21:00 Pantoprazole (Protonix Tab) 40 mg DAILY@06 PO Last administered on 01/13/17 06 :07; Admin Dose 40 MG; Start 01/06/17 at 06:00 Senna (Senokot) 1 tab HS PO Last administered on 01/12/17 21:11; Admin Dose 1 TAB; Start 01/05/17 at 21:00 Prednisone (Prednisone) 5 mg DAILY PO Last administered on 01/13/17 09:09; Admin Dose 5 MG; Start 01/05/17 at 12:00 Prednisone (Prednisone) 3 mg DAILY PO Last administered on 01/13/17 09:09; Admin Dose 3 MG; Start 01/05/17 at 12:00 Miscellaneous Information 1 ea NOTE XX ; Start 01/05/17 at 11:00 Glucose (Glutose) 15 gm Q15M PRN PO DECREASED GLUCOSE; Start 01/05/17 at 11:00 Glucose (Glutose) 22.5 gm Q15M PRN PO DECREASED GLUCOSE; Start 01/05/17 at 11: 00 Dextrose (D50w Syringe) 25 ml Q15M PRN IV DECREASED GLUCOSE Last administered on 01/09/17 04:45; Admin Dose 25 ML; Start 01/05/17 at 11:00 Dextrose (D50w Syringe) 50 ml Q15M PRN IV DECREASED GLUCOSE Last administered on 01/08/17 21:33; Admin Dose 50 ML; Start 01/05/17 at 11:00 Glucagon (Glucagen) 1 mg Q15M PRN IM DECREASED GLUCOSE; Start 01/05/17 at 11:00 Glucose (Glutose) 15 gm Q15M PRN BUCCAL DECREASED GLUCOSE; Start 01/05/17 at 11 :00 Oxcarbazepine (Trileptal) 600 mg BID PO Last administered on 01/13/17 09:10; Admin Dose 600 MG; Start 01/05/17 at 12:00 Insulin Aspart NOVOLOG *MILD* ALGORI... Q4 SC Last administered on 01/13/17 09 :29; Admin Dose 1 UNIT; Start 01/05/17 at 13:00 Fentanyl 100 ml @ 2.5 mls/hr TITRATE IV Last administered on 01/07/17 02:25; Admin Dose 7.5 MLS/HR; Start 01/06/17 at 09:30 Norepinephrine/ Dextrose (Levophed/D5W) 500 ml @ 0 mls/hr TITRATE IV ; Start 04/12 at 13:30 Bumetanide 1 mg 1 mg BID IV Last administered on 01/13/17 09:05; Admin Dose 1 MG; Start 01/08/17 at 09:00 Caspofungin 50 mg/ Sodium Chloride 250 ml @ 250 mls/hr Q24H IVPB Last administered on 01/12/17 12:35; Admin Dose 250 MLS/HR; Start 01/09/17 at 15:00 Propofol (Diprivan) 100 ml @ 2.19 mls/hr Q12H IV Last administered on 06:07; Admin Dose 4.38 MLS/HR; Start 01/08/17 at 16:00 Miscellaneous Information (*Order Clarification Bulletin) FULVESTRANT 250 MG/5 ML SYG: PLE... Q8H XX Last administered on 01/13/17 00:00; Admin Dose 1 EA; Start 01/09/17 at 08:00 Metoprolol Tartrate 25 mg 25 mg BID PO Last administered on 01/13/17 09:11; Admin Dose 25 MG; Start 01/12/17 at 21:00 Vancomycin HCl/ Sodium Chloride (Vancocin/NS) 150 ml @ 75 mls/hr Q72H IVPB ; Start 01/16/17 at 14:00 Assessment/Plan Chief Complaint/Hosp Course Assessment: 1. s/p cardiopulmonary arrest: Most likely due to pulmonary arrest 2. P afib: 3. History of renal failure status post renal transplant: now with KATI on CKD 4. Acute on chronic hypoxemic hypercapnic respiratory failure status post reintubation: currently on the vent 5. Shock: resolved now. currently hypertensive, but controlled. 6. ANEMIA 7. breast cancer 8. history of HTN: 9. anxiety 10. DM 11. Hypothyroidism: on synthroid. 12. pleural effusion : s/p thoracentesis Recommendations: cont eliquis as long as no signs of active bleeding and no surgery/ procedure is planned. vent support for now anti- rejection medications to be adjusted as per renal team cont DM control thyroid supplement dec betablocker due to low BP. correct lytes prn cont tele monitoring will give a dose of dig now IV cont ICU care. Thank you for this referral I will continue to follow along with you. AUGUSTINA MALDONADO MD [facility] Problems: AUGUSTINA MALDONADO MD Jan 13, 2017 13:11
[2017-01-13] MEDS ORDERED: DIGOXIN 500 MCG INJ IV ONE (13:30)
[2017-01-13] MEDS: CASPOFUNGIN 50 MG in SOD CHLORIDE 0.9% 250 ML IVPB SCH (15:11)
--- NOTE | 2017-01-13 16:18 | PN ---
DATE: 01/13/2017 SUBJECTIVE DATA: No acute changes. The patient is awake, looks comfortable, on vent. No fevers. Temperature 97.5. Pulse 90, respirations 16, blood pressure 119/62, saturation 97 on FiO2 of 30. WBC 9.7, H and H 8.3 and 25.3, platelets 256, neutrophils 77.5. BUN 79, creatinine 2.51. ANTIMICROBIALS: The patient is on: 1. Vancomycin. 2. Cancidas. 3. Cefepime. INDWELLINGS: Endotracheal tube, NG tube, Dela Cruz catheter. Femoral triple lumen catheter. PHYSICAL EXAMINATION: GENERAL: This is a well-developed, fragile, chronically ill- appearing, elderly woman, who is in no distress. HEENT: Head atraumatic, normocephalic. Sclerae anicteric. Buccal mucosa dry. NECK: Supple. Trachea midline. CHEST: Rise symmetrical. Breath sounds diminished at the bases. HEART: S1, S2. ABDOMEN: Soft, bowel sounds present. EXTREMITIES: With trace edema. ASSESSMENT: 1. Status post septic shock. 2. Acute respiratory failure, possibly aspiration event. 3. Status post right thoracentesis on 01/09/2017, pleural fluid cultures negative. 4. Acute on chronic kidney disease. 5. History of kidney transplant, on immunosuppressive therapy. 6. Diabetes. 7. Metastatic breast cancer. PLAN: The patient remains stable. Tolerate weaning. We are going to discontinue vancomycin. Continue cefepime, Cancidas. Continue vent management as per pulmonary team. Dictated By: Artis Castañeda NP /berkley/johnson /Document#: [id number]
[2017-01-13] MEDS: MIRTAZAPINE 15 MG TAB PO SCH (21:04)
[2017-01-13] MEDS: SENNA TAB PO SCH (21:25)
--- NOTE | 2017-01-13 22:28 | CONS ---
Date/Time of Note Date/Time of Note DATE: 01/13/17 TIME: 22:25 Assessment/Plan Assessment/Plan Chief Complaint/Hosp Course History of breast cancer with lung metastasis. The patient is on medical management. cont Faslodex as outpt Anemia. Monitor hemoglobin and hematocrit levels. [employer] s/p cardiopulmonary arrest: Most likely due to pulmonary arrest P afib: currently in NSR History of renal failure status post renal transplant Acute on chronic hypoxemic hypercapnic respiratory failure status post tracheostomy currently on the vent POST THORACENTESIS AWAIT CYTOLOGY Shock: currently blood pressure has improved Chronic obstructive pulmonary disease exacerbation. Congestive heart failure exacerbation. Hypothyroidism. Diabetes. Continue current insulin regimen. Pulmonary hypertension. Depression. Problems: Consultation Date/Type/Reason Admit Date/Time Jan 05, 2017 at 00:15 Initial Consult Date 01/05/17 Type of Consultation: [facility] Referring Provider: SUSAN SIMENTAL DO 24 HR Interval Summary Free Text/Dictation all noted d/w staff failed CPAP Exam/Review of Systems Vital Signs Vitals Vital Signs Date Time Temp Pulse Resp B/P Pulse Ox O2 Delivery O2 Flow Rate FiO2 01/13/17 21:30 90 15 152/74 100 01/13/17 21:23 30 01/13/17 21:00 Mechanical Ventilator 01/13/17 20:00 99.3 Intake and Output 01/12/17 01/12/17 01/13/17 15:00 23:00 07:00 Intake Total 271.1 ml 573.15 ml 460.04 ml Output Total 150 ml 160 ml 300 ml Balance 121.1 ml 413.15 ml 160.04 ml Exam HEENT: Head is normocephalic. NECK: Supple. HEART: Regular rate. LUNGS: Show diminished breath sounds at the base. ABDOMEN: Soft, nontender to palpation. No rebound or guarding. EXTREMITIES: Negative for clubbing, cyanosis. No edema. DERMATOLOGIC: Clean. No rashes. MUSCULOSKELETAL: No joint effusion. NEUROLOGIC: No change in exam. + SCROTAL EDEMA NO NEW PETECHIA OR HEMATOMA Results Result Diagram: 01/13/17 0400 01/13/17 0400 Results 24 hrs Laboratory Tests Test 01/13/17 00:03 01/13/17 04:00 01/13/17 04:20 01/13/17 09:19 Bedside Glucose 114 112 164 White Blood Count 9.7 Red Blood Count 2.75 L Hemoglobin 8.3 L Hematocrit 25.3 L Mean Corpuscular Volume 92.0 Mean Corpuscular Hemoglobin 30.2 Mean Corpuscular Hemoglobin Concent 32.8 Red Cell Distribution Width 15.0 H Platelet Count 256 Mean Platelet Volume 10.1 Neutrophils % 77.5 H Lymphocytes % 8.1 L Monocytes % 6.7 Eosinophils % 3.4 Basophils % 0.1 Nucleated Red Blood Cells % 0.0 Neutrophils # 7.6 H Lymphocytes # 0.8 Monocytes # 0.7 Eosinophils # 0.3 Basophils # 0.0 Nucleated Red Blood Cells # 0.0 Sodium Level 127 L Potassium Level 3.7 Chloride Level 95 L Carbon Dioxide Level 25 Anion Gap 11 Blood Urea Nitrogen 79 H Creatinine 2.51 H Glucose Level 122 Calcium Level 9.0 Phosphorus Level 4.1 Magnesium Level 2.3 Vancomycin Level Trough 22.8 *H Test 01/13/17 12:00 01/13/17 13:02 01/13/17 17:58 01/13/17 21:11 Blood Gas Specimen Source Blood arterial Arterial Blood Date Drawn 01/13/2017 12:06:22 PM Arterial Blood pH (Temp corrected) 7.362 Arterial Blood pCO2 (Temp correct) 34.2 L Arterial Blood pO2 (Temp corrected) 80.9 Arterial Blood HCO3 19.0 L Arterial Blood Base Excess -5.8 L Arterial Blood Oxygen Saturation 94.1 L Rey Test ACCEPTAB Arterial Blood Gas Puncture Site Right Radial Arterial Blood Carboxyhemoglobin 0.3 Arterial Blood Methemoglobin 0.4 Blood Gas A-a O2 Differential 92.8 H Oxyhemoglobin Percent 93.4 Total Hemoglobin 9.0 L Blood Gas Temperature 37.0 Blood Gas Actual Respiration Rate 30 Blood Gas Modality VENT - CPAP FiO2 30.0 Blood Gas Low PEEP Setting 5.0 Blood Gas Pressure Support 10 Blood Gas Notified Whom TM Blood Gas Notified Time 01/13/2017 12:37:03 PM Bedside Glucose 251 H 229 H 206 Medications Medications Current Medications Cefepime HCl (Maxipime 2gm/50 ml (Pmx)) 50 ml @ 100 mls/hr DAILY IVPB Last administered on 01/13/17t 08:53; Admin Dose 100 MLS/HR; Start 01/05/17 at 02:30 Naloxone HCl (Narcan) 0.4 mg Q4 PRN IV SEDATION; Start 01/05/17 at 01:30 Acetaminophen (Tylenol Tab) 650 mg Q6H PRN PO PAIN AND OR ELEVATED TEMP; Start 01/05/17 at 10:30 Apixaban (Eliquis) 2.5 mg BID PO Last administered on 01/13/17 21:05; Admin Dose 2.5 MG; Start 01/05/17 at 10:30 Ascorbic Acid (Vitamin C) 500 mg BID PO Last administered on 01/13/17 21:05; Admin Dose 500 MG; Start 01/05/17 at 10:30 Bisacodyl (Dulcolax Supp) 10 mg DAILY WA Last administered on 01/13/17 09:12; Admin Dose 10 MG; Start 01/06/17 at 09:00 Budesonide (Pulmicort (Neb)) 0.25 mg BID NEB Last administered on 01/13/17 20: 00; Admin Dose 0.25 MG; Start 01/05/17 at 10:30 Docusate Sodium (Colace) 100 mg BID PO Last administered on 01/13/17 21:06; Admin Dose 100 MG; Start 01/05/17 at 10:30 Fluticasone Propionate (Flonase 0.05% Nasal) 1 spray DAILY NASAL Last administered on 01/13/17 09:26; Admin Dose 1 SPRAY; Start 01/05/17 at 11:00 Fulvestrant (Faslodex) 500 mg Q28D IM ; Start 01/29/17 at 09:00 Insulin Glargine (Lantus) 18 unit DAILY SC Last administered on 01/13/17 09:35 ; Admin Dose 18 UNIT; Start 01/05/17 at 10:30 Loratadine (Claritin) 10 mg DAILY PO Last administered on 01/13/17 09:38; Admin Dose 10 MG; Start 01/05/17 at 11:00 Magnesium Hydroxide (Milk Of Mag) 30 ml BID PRN PO CONSTIPATION; Start at 10:30 Magnesium Oxide (Mag-Ox 400) 400 mg DAILY PO Last administered on 01/13/17 09: 11; Admin Dose 400 MG; Start 01/05/17 at 10:30 Mirtazapine (Remeron) 15 mg HS PO Last administered on 01/13/17 21:04; Admin Dose 15 MG; Start 01/05/17 at 21:00 Nitroglycerin (Nitroglycerin 2% Oint) 0.5 inch Q6 PRN TD CHEST PAIN; Start 03/13 at 10:30 Ondansetron HCl (Zofran Inj) 4 mg Q6H PRN IV NAUSEA Last administered on 15:55; Admin Dose 4 MG; Start 01/05/17 at 10:30 Sertraline HCl (Zoloft) 75 mg DAILY PO Last administered on 01/13/17 09:10; Admin Dose 75 MG; Start 01/05/17 at 10:30 Sildenafil Citrate (Revatio) 20 mg TID PO Last administered on 01/13/17 21:04 ; Admin Dose 20 MG; Start 01/05/17 at 13:00 Tacrolimus (Prograf) 2 mg QPM PO Last administered on 01/13/17 21:05; Admin Dose 2 MG; Start 01/05/17 at 21:00 Pantoprazole (Protonix Tab) 40 mg DAILY@06 PO Last administered on 01/13/17 06 :07; Admin Dose 40 MG; Start 01/06/17 at 06:00 Senna (Senokot) 1 tab HS PO Last administered on 01/13/17 21:25; Admin Dose 1 TAB; Start 01/05/17 at 21:00 Prednisone (Prednisone) 5 mg DAILY PO Last administered on 01/13/17 09:09; Admin Dose 5 MG; Start 01/05/17 at 12:00 Prednisone (Prednisone) 3 mg DAILY PO Last administered on 01/13/17 09:09; Admin Dose 3 MG; Start 01/05/17 at 12:00 Miscellaneous Information 1 ea NOTE XX ; Start 01/05/17 at 11:00 Glucose (Glutose) 15 gm Q15M PRN PO DECREASED GLUCOSE; Start 01/05/17 at 11:00 Glucose (Glutose) 22.5 gm Q15M PRN PO DECREASED GLUCOSE; Start 01/05/17 at 11: 00 Dextrose (D50w Syringe) 25 ml Q15M PRN IV DECREASED GLUCOSE Last administered on 01/09/17 04:45; Admin Dose 25 ML; Start 01/05/17 at 11:00 Dextrose (D50w Syringe) 50 ml Q15M PRN IV DECREASED GLUCOSE Last administered on 01/08/17 21:33; Admin Dose 50 ML; Start 01/05/17 at 11:00 Glucagon (Glucagen) 1 mg Q15M PRN IM DECREASED GLUCOSE; Start 01/05/17 at 11:00 Glucose (Glutose) 15 gm Q15M PRN BUCCAL DECREASED GLUCOSE; Start 01/05/17 at 11 :00 Oxcarbazepine (Trileptal) 600 mg BID PO Last administered on 01/13/17 21:04; Admin Dose 600 MG; Start 01/05/17 at 12:00 Insulin Aspart NOVOLOG *MILD* ALGORI... Q4 SC Last administered on 01/13/17 21 :13; Admin Dose 2 UNIT; Start 01/05/17 at 13:00 Fentanyl 100 ml @ 2.5 mls/hr TITRATE IV Last administered on 01/07/17 02:25; Admin Dose 7.5 MLS/HR; Start 01/06/17 at 09:30 Norepinephrine/ Dextrose (Levophed/D5W) 500 ml @ 0 mls/hr TITRATE IV ; Start 04/12 at 13:30 Bumetanide 1 mg 1 mg BID IV Last administered on 01/13/17 21:06; Admin Dose 1 MG; Start 01/08/17 at 09:00 Caspofungin 50 mg/ Sodium Chloride 250 ml @ 250 mls/hr Q24H IVPB Last administered on 01/13/17 15:11; Admin Dose 250 MLS/HR; Start 01/09/17 at 15:00 Propofol (Diprivan) 100 ml @ 2.19 mls/hr Q12H IV Last administered on 06:07; Admin Dose 4.38 MLS/HR; Start 01/08/17 at 16:00 Metoprolol Tartrate (Lopressor) 25 mg BID PO Last administered on 01/13/17 21: 05; Admin Dose 25 MG; Start 01/12/17 at 21:00 Miscellaneous Information (*Order Clarification Bulletin) FULVESTRANT 250 MG/5 ML SYG: PLE... Q8H XX ; Start 01/26/17 at 09:00 SHANICE DAVENPORT MD Jan 13, 2017 22:28
[2017-01-14] VITALS (68 sets, daily range): BP systolic 96–151; BP diastolic 39–77; PULSE 56–106; RESP 12–39
[2017-01-14] MEDS: INSULIN ASPART [NOVOLOG] 3 ML PEN SC SCH ×6 (00:51→21:00)
[2017-01-14] MEDS: IPRATROPIUM (HFA) 12.9 GM INHALER INH SCH ×4 (01:22→19:31)
[2017-01-14] MEDS: ALBUTEROL 18 GM INHALER INH SCH ×4 (01:22→19:32)
[2017-01-14] MEDS: PROPOFOL 100 ML IV SCH ×2 (01:30→17:24)
[2017-01-14 05:44] LABS: BASOPHILS % 0.1 % (0.0-2.0); EOSINOPHILS # 0.3 10^3/ul (0.0-0.5); EOSINOPHILS % 3.4 % (0.0-7.0); HEMATOCRIT 23.2 % (37.0-47.0); HEMOGLOBIN 7.5 g/dl (12.0-16.0); LYMPHOCYTES # 0.8 10^3/ul (0.8-2.9); LYMPHOCYTES % 8.6 % (15.0-51.0); MEAN CORPUSCULAR HEMOGLOBIN 29.6 pg (29.0-33.0); MEAN CORPUSCULAR HGB CONC 32.3 g/dl (32.0-37.0); MEAN CORPUSCULAR VOLUME 91.7 fl (82.0-101.0); MEAN PLATELET VOLUME 10.3 fl (7.4-10.4); MONOCYTE # 0.6 10^3/ul (0.3-0.9); MONOCYTES % 7.1 % (0.0-11.0); NEUTROPHIL # 6.8 10^3/ul (1.6-7.5); NEUTROPHILS % 76.2 % (39.0-77.0); PLATELET COUNT 220 10^3/UL (140-415); RED BLOOD COUNT 2.53 10^6/ul (4.20-5.40); RED CELL DISTRIBUTION WIDTH 14.9 % (11.5-14.5); WHITE BLOOD COUNT 8.9 10^3/ul (4.8-10.8)
[2017-01-14] MEDS: LEVOTHYROXINE 75 MCG TAB PO SCH (06:04)
[2017-01-14] MEDS: PANTOPRAZOLE (EC) 40 MG TAB PO SCH (06:04)
[2017-01-14 06:23] LABS: CALCIUM 9.1 mg/dl (8.4-10.2); CREATININE 2.75 mg/dl (0.44-1.00); MAGNESIUM 2.4 mg/dl (1.7-2.5)
--- NOTE | 2017-01-14 07:37 | CONS ---
Date/Time of Note Date/Time of Note DATE: 01/14/17 TIME: 07:36 Consult Date/Type/Reason Admit Date/Time Jan 05, 2017 at 00:15 Initial Consult Date 01/05/17 Type of Consultation: CARDIOLOGY Ordering Provider: SUSAN SIMENTAL DO Subjective CARDIOLOGY FOLLOW UP NOTE: D/W Staff and rhythm was reviewed. pt has remained in Afib. HR has been stable mostly now D/W family at bedside. pt still remains intubated on vent. pt was extubated on 01/07/17 but had to be re -intubated again the same night due to resp distress even on BIPAP. NO reports of any chest pain or pressure OBJECTIVE: General: intubated on vent. HEENT: NC/AT. pupils are equal. round. NECK: NO JVD. no stridor. CV:irregularly irregular. systolic murmur; no gallop or rubs. PULM: no wheezing, + mild rhonchi. GI: SOFT, NT, ND, no rebound or guarding Extremity: trace B/L LE edema. no clubbing. neuro: opens her eyes to verbal stimuli and follows basic commands . . Psych: unable to assess rectal: deferred : normal ECHO 12/16/16: Personally reviewed 1. Normal left ventricular systolic function. Normal left ventricular cavity size. Moderate concentric left ventricular hypertrophy. Ejection fraction is visually estimated at 65 %. Abnormal Diastolic Function. 2. There is moderate enlargement of left atrium. 3. Mild mitral leaflet calcification. Mild mitral annular calcification. Trace mitral regurgitation. 4. Aortic sclerosis without stenosis. Trace aortic valve regurgitation. 5. Normal appearance of the tricuspid valve. Estimated peak PA systolic pressure 38 mmHg. There is mild tricuspid regurgitation. Objective Vital Signs Date Time Temp Pulse Resp B/P Pulse Ox O2 Delivery O2 Flow Rate FiO2 01/14/17 06:00 79 14 112/43 98 Mechanical Ventilator 01/14/17 05:08 30 01/14/17 04:00 98.5 Intake and Output 01/13/17 01/13/17 01/14/17 15:00 23:00 07:00 Intake Total 495.04 ml 685.04 ml 342.86 ml Output Total 175 ml 165 ml 120 ml Balance 320.04 ml 520.04 ml 222.86 ml Results/Medications Result Diagram: 01/14/17 0448 01/14/17 0448 Results 24 hrs Laboratory Tests Test 01/13/17 09:19 01/13/17 12:00 01/13/17 13:02 01/13/17 17:58 Bedside Glucose 164 251 H 229 H Blood Gas Specimen Source Blood arterial Arterial Blood Date Drawn 01/13/2017 12:06:22 PM Arterial Blood pH (Temp corrected) 7.362 Arterial Blood pCO2 (Temp correct) 34.2 L Arterial Blood pO2 (Temp corrected) 80.9 Arterial Blood HCO3 19.0 L Arterial Blood Base Excess -5.8 L Arterial Blood Oxygen Saturation 94.1 L Rey Test ACCEPTAB Arterial Blood Gas Puncture Site Right Radial Arterial Blood Carboxyhemoglobin 0.3 Arterial Blood Methemoglobin 0.4 Blood Gas A-a O2 Differential 92.8 H Oxyhemoglobin Percent 93.4 Total Hemoglobin 9.0 L Blood Gas Temperature 37.0 Blood Gas Actual Respiration Rate 30 Blood Gas Modality VENT - CPAP FiO2 30.0 Blood Gas Low PEEP Setting 5.0 Blood Gas Pressure Support 10 Blood Gas Notified Whom TM Blood Gas Notified Time 01/13/2017 12:37:03 PM Test 01/13/17 21:11 01/14/17 00:49 01/14/17 04:47 01/14/17 04:48 Bedside Glucose 206 189 160 White Blood Count 8.9 Red Blood Count 2.53 L Hemoglobin 7.5 L Hematocrit 23.2 L Mean Corpuscular Volume 91.7 Mean Corpuscular Hemoglobin 29.6 Mean Corpuscular Hemoglobin Concent 32.3 Red Cell Distribution Width 14.9 H Platelet Count 220 Mean Platelet Volume 10.3 Neutrophils % 76.2 Lymphocytes % 8.6 L Monocytes % 7.1 Eosinophils % 3.4 Basophils % 0.1 Nucleated Red Blood Cells % 0.0 Neutrophils # 6.8 Lymphocytes # 0.8 Monocytes # 0.6 Eosinophils # 0.3 Basophils # 0.0 Nucleated Red Blood Cells # 0.0 Sodium Level 126 L Potassium Level 4.0 Chloride Level 94 L Carbon Dioxide Level 25 Anion Gap 11 Blood Urea Nitrogen 82 H Creatinine 2.75 H Glucose Level 139 Calcium Level 9.1 Phosphorus Level 4.0 Magnesium Level 2.4 Medications Current Medications Cefepime HCl (Maxipime 2gm/50 ml (Pmx)) 50 ml @ 100 mls/hr DAILY IVPB Last administered on 01/13/17t 08:53; Admin Dose 100 MLS/HR; Start 01/05/17 at 02:30 Naloxone HCl (Narcan) 0.4 mg Q4 PRN IV SEDATION; Start 01/05/17 at 01:30 Acetaminophen (Tylenol Tab) 650 mg Q6H PRN PO PAIN AND OR ELEVATED TEMP; Start 01/05/17 at 10:30 Apixaban (Eliquis) 2.5 mg BID PO Last administered on 01/13/17 21:05; Admin Dose 2.5 MG; Start 01/05/17 at 10:30 Ascorbic Acid (Vitamin C) 500 mg BID PO Last administered on 01/13/17 21:05; Admin Dose 500 MG; Start 01/05/17 at 10:30 Bisacodyl (Dulcolax Supp) 10 mg DAILY [place] Last administered on 01/13/17 09:12; Admin Dose 10 MG; Start 01/06/17 at 09:00 Budesonide (Pulmicort (Neb)) 0.25 mg BID NEB Last administered on 01/13/17 20: 00; Admin Dose 0.25 MG; Start 01/05/17 at 10:30 Docusate Sodium (Colace) 100 mg BID PO Last administered on 01/13/17 21:06; Admin Dose 100 MG; Start 01/05/17 at 10:30 Fluticasone Propionate (Flonase 0.05% Nasal) 1 spray DAILY NASAL Last administered on 01/13/17 09:26; Admin Dose 1 SPRAY; Start 01/05/17 at 11:00 Fulvestrant (Faslodex) 500 mg Q28D IM ; Start 01/29/17 at 09:00 Insulin Glargine (Lantus) 18 unit DAILY SC Last administered on 01/13/17 09:35 ; Admin Dose 18 UNIT; Start 01/05/17 at 10:30 Loratadine (Claritin) 10 mg DAILY PO Last administered on 01/13/17 09:38; Admin Dose 10 MG; Start 01/05/17 at 11:00 Magnesium Hydroxide (Milk Of Mag) 30 ml BID PRN PO CONSTIPATION; Start at 10:30 Magnesium Oxide (Mag-Ox 400) 400 mg DAILY PO Last administered on 01/13/17 09: 11; Admin Dose 400 MG; Start 01/05/17 at 10:30 Mirtazapine (Remeron) 15 mg HS PO Last administered on 01/13/17 21:04; Admin Dose 15 MG; Start 01/05/17 at 21:00 Nitroglycerin (Nitroglycerin 2% Oint) 0.5 inch Q6 PRN TD CHEST PAIN; Start 03/13 at 10:30 Ondansetron HCl (Zofran Inj) 4 mg Q6H PRN IV NAUSEA Last administered on 15:55; Admin Dose 4 MG; Start 01/05/17 at 10:30 Sertraline HCl (Zoloft) 75 mg DAILY PO Last administered on 01/13/17 09:10; Admin Dose 75 MG; Start 01/05/17 at 10:30 Sildenafil Citrate (Revatio) 20 mg TID PO Last administered on 01/13/17 21:04 ; Admin Dose 20 MG; Start 01/05/17 at 13:00 Tacrolimus (Prograf) 2 mg QPM PO Last administered on 01/13/17 21:05; Admin Dose 2 MG; Start 01/05/17 at 21:00 Pantoprazole (Protonix Tab) 40 mg DAILY@06 PO Last administered on 01/14/17 06 :04; Admin Dose 40 MG; Start 01/06/17 at 06:00 Senna (Senokot) 1 tab HS PO Last administered on 01/13/17 21:25; Admin Dose 1 TAB; Start 01/05/17 at 21:00 Prednisone (Prednisone) 5 mg DAILY PO Last administered on 01/13/17 09:09; Admin Dose 5 MG; Start 01/05/17 at 12:00 Prednisone (Prednisone) 3 mg DAILY PO Last administered on 01/13/17 09:09; Admin Dose 3 MG; Start 01/05/17 at 12:00 Miscellaneous Information 1 ea NOTE XX ; Start 01/05/17 at 11:00 Glucose (Glutose) 15 gm Q15M PRN PO DECREASED GLUCOSE; Start 01/05/17 at 11:00 Glucose (Glutose) 22.5 gm Q15M PRN PO DECREASED GLUCOSE; Start 01/05/17 at 11: 00 Dextrose (D50w Syringe) 25 ml Q15M PRN IV DECREASED GLUCOSE Last administered on 01/09/17 04:45; Admin Dose 25 ML; Start 01/05/17 at 11:00 Dextrose (D50w Syringe) 50 ml Q15M PRN IV DECREASED GLUCOSE Last administered on 01/08/17 21:33; Admin Dose 50 ML; Start 01/05/17 at 11:00 Glucagon (Glucagen) 1 mg Q15M PRN IM DECREASED GLUCOSE; Start 01/05/17 at 11:00 Glucose (Glutose) 15 gm Q15M PRN BUCCAL DECREASED GLUCOSE; Start 01/05/17 at 11 :00 Oxcarbazepine (Trileptal) 600 mg BID PO Last administered on 01/13/17 21:04; Admin Dose 600 MG; Start 01/05/17 at 12:00 Insulin Aspart NOVOLOG *MILD* ALGORI... Q4 SC Last administered on 01/14/17 04 :49; Admin Dose 1 UNIT; Start 01/05/17 at 13:00 Fentanyl 100 ml @ 2.5 mls/hr TITRATE IV Last administered on 01/07/17 02:25; Admin Dose 7.5 MLS/HR; Start 01/06/17 at 09:30 Norepinephrine/ Dextrose (Levophed/D5W) 500 ml @ 0 mls/hr TITRATE IV ; Start 04/12 at 13:30 Bumetanide 1 mg 1 mg BID IV Last administered on 01/13/17 21:06; Admin Dose 1 MG; Start 01/08/17 at 09:00; Status Future Hold Caspofungin 50 mg/ Sodium Chloride 250 ml @ 250 mls/hr Q24H IVPB Last administered on 01/13/17 15:11; Admin Dose 250 MLS/HR; Start 01/09/17 at 15:00 Propofol (Diprivan) 100 ml @ 2.19 mls/hr Q12H IV Last administered on 01:30; Admin Dose 4.38 MLS/HR; Start 01/08/17 at 16:00 Metoprolol Tartrate (Lopressor) 25 mg BID PO Last administered on 01/13/17 21: 05; Admin Dose 25 MG; Start 01/12/17 at 21:00 Miscellaneous Information (*Order Clarification Bulletin) FULVESTRANT 250 MG/5 ML SYG: PLE... Q8H XX ; Start 01/26/17 at 09:00 Epoetin Paulo (Epogen (Neserd)) 6,000 units ONCE ONCE SC ; Start 01/14/17 at 08: 00; Stop 01/14/17 at 08:01 Assessment/Plan Chief Complaint/Hosp Course Assessment: 1. s/p cardiopulmonary arrest: Most likely due to pulmonary arrest 2. P afib: 3. History of renal failure status post renal transplant: now with KATI on CKD 4. Acute on chronic hypoxemic hypercapnic respiratory failure status post reintubation: currently on the vent 5. Shock: resolved now. currently hypertensive, but controlled. 6. ANEMIA 7. breast cancer 8. history of HTN: 9. anxiety 10. DM 11. Hypothyroidism: on synthroid. 12. pleural effusion : s/p thoracentesis Recommendations: cont eliquis as long as no signs of active bleeding and no surgery/ procedure is planned. vent support for now anti- rejection medications to be adjusted as per renal team cont DM control thyroid supplement dec betablocker due to low BP. correct lytes prn cont tele monitoring will give a dose of dig now IV cont ICU care. Thank you for this referral I will continue to follow along with you. AUGUSTINA MALDONADO MD [facility] Problems: AUGUSTINA MALDONADO MD Jan 14, 2017 07:37
[2017-01-14 07:45] LABS: IRON 55 ug/dl (35-150)
[2017-01-14 07:54] LABS: TOTAL IRON BINDING CAPACITY 146 ug/dl (241-421)
[2017-01-14] MEDS ORDERED: EPOETIN ALFA (NESRD) 3,000 UNITS/ML VIAL SC ONE (08:00)
[2017-01-14] MEDS: BUDESONIDE (NEB) 0.25 MG/2 ML AMP NEB SCH ×2 (08:06→21:00)
--- NOTE | 2017-01-14 08:06 | PN ---
DATE: 01/14/2017 SUBJECTIVE DATA: The patient remains on full ventilatory support, unable to tolerate weaning. The patient's urinary output was noted to be diminished overnight with approximately 10 cc an hour. No other acute events noted. No hemoptysis, hematemesis, hematochezia. OBJECTIVE DATA: VITAL SIGNS: Blood pressure is 112/43, respirations 14, pulse 79, temperature 98.5. I's and O's is 1600 in, 470 out. HEENT: Head is normocephalic. NECK: Supple. HEART: Regular rate. LUNGS: Show diminished breath sounds base. Positive rhonchi. ABDOMEN: Soft, nontender to palpation. No rebound or guarding. EXTREMITIES: Negative for clubbing, cyanosis. No edema. DERMATOLOGIC: Clean. No rashes. MUSCULOSKELETAL: No joint effusion. NEUROLOGIC: No change in exam. MEDICATIONS: Reviewed. LABORATORY AND DIAGNOSTIC DATA: Shows sodium 126, potassium 4.0, chloride 94, BUN 82, creatinine 2.75. White count 8.9, hemoglobin 7.5, crit 23.2, platelet count is 220. ASSESSMENT AND PLAN: 1. Ventilatory-dependent respiratory failure. Etiology is felt to be secondary to congestive heart failure, pneumonia. The patient has failed weaning trials. We will continue to monitor. Consider a CT scan of the chest. 2. Acute congestive heart failure exacerbation. The patient's chest x-ray showed less congestion. We will hold diuretic regimen in the setting of worsening renal failure. The patient may be more intravascularly depleted. We will allow fluids to mobilize. 3. Nonoliguric acute kidney injury on top of chronic allograft failure with previous baseline creatinine 1.5 to 1.7 mg/dL. Etiology of acute kidney injury secondary to acute tubular necrosis due to code arrest. The patient's renal function has declined in the last 24 hours. This may be due to a hemodynamic component. Diuretic therapy will be held for a 24-hour period to enable fluids to mobilize. We will continue to monitor closely. We will repeat urinalysis and urine electrolytes. We will repeat a Prograf level. 4. Hyponatremia secondary to acute kidney injury causing decreased free water urinary excretion. Continue to limit free water intake and monitor. 5. Paroxysmal atrial fibrillation. The patient is in sinus rhythm. Continue medical management. 6. Sepsis, status post shock secondary to pneumonia. Continue current antibiotic management. 7. History of end-stage renal disease, status post renal transplant with chronic allograft failure. The patient is currently in acute kidney injury as stated above. Continue current immunosuppressive regimen. Follow up Prograf level. 8. Hypothyroidism. Continue Synthroid. 9. Anemia. Monitor H and H levels. 10. History of breast cancer. Continue to monitor. Follow up with Oncology. 11. Diabetes. Continue current insulin regimen. 12. Pulmonary hypertension. Continue current medical management. 13. Anxiety, depression. Continue current treatment plan. 14. Dysphagia. Nutrition, continue tube feeding. 15. Gastrointestinal and deep venous thrombosis prophylaxis. Please note, I spent over 35 minutes of critical care time with this patient. Please note, I attempted to contact patient's brother, Lloyd, and a message was left. Dictated By: Cameron Rosenthal DO /[email or web address] /Document#: [id number]
--- NOTE | 2017-01-14 08:47 | RADRPT ---
PROCEDURE: Chest 1 views. CLINICAL INDICATION: Shortness of breath. TECHNIQUE: AP views of the chest was obtained. COMPARISON: DR SEXTON 01/12/2017 FINDINGS: The heart is large. Endotracheal and nasogastric tubes are stable and appear in grossly appropriate location. Surgical clips over the left lower lung are stable. Central pulmonary vascular congestion and interstitial prominence is noted in both lungs. Left lower lobe infiltrates and small left pleur al effusion have increased. Atelectasis is seen at the right lung base. Small right pleural effusion may be present. Surgical clips are seen in the left axilla. Osseous structures are intact. IMPRESSION: Cardiomegaly . Central pulmonary vascular congestion and interstitial prominence in both lungs. Interval increase in left lower lobe infiltrates, combined with small pleural effusion. Atelectasis at the right lung base possibly combined with small pleural effusion. RPTAT: AA .Abelino Dhaliwal MD, Date Time Electronically viewed and signed by .Abelino Dhaliwal MD, on 01/14/2017 08:47 .P/
[2017-01-14] MEDS: TACROLIMUS 1 MG CAP PO SCH ×2 (09:51→20:51)
[2017-01-14] MEDS: ASCORBIC ACID 500 MG TAB PO SCH ×2 (09:51→20:49)
[2017-01-14] MEDS: MAGNESIUM OXIDE 400 MG TAB PO SCH (09:51)
[2017-01-14] MEDS: predniSONE 1 MG TAB PO SCH (09:51)
[2017-01-14] MEDS: OXCARBAZEPINE 300 MG TAB PO SCH ×2 (09:52→20:50)
[2017-01-14] MEDS: APIXABAN 5 MG TABLET PO SCH ×2 (09:52→20:50)
[2017-01-14] MEDS: predniSONE 5 MG TAB PO SCH (09:52)
[2017-01-14] MEDS: SILDENAFIL 20 MG TAB PO SCH ×3 (09:52→21:00)
[2017-01-14] MEDS: DOCUSATE SODIUM 100 MG CAP PO SCH ×2 (09:52→20:51)
[2017-01-14] MEDS: LORATADINE 10 MG TAB PO SCH (09:52)
[2017-01-14] MEDS: FLUTICASONE 0.05% 16 GM NAS SPRAY NASAL SCH (09:53)
[2017-01-14] MEDS: BISACODYL 10 MG SUPP PR SCH (09:53)
[2017-01-14] MEDS: METOPROLOL 25 MG TAB PO SCH ×2 (09:53→21:00)
[2017-01-14] MEDS: SERTRALINE 50 MG TAB PO SCH (09:53)
[2017-01-14] MEDS: BALSAM PERU/CASTOR OIL 60 GM TUBE TOP SCH (09:54)
[2017-01-14] MEDS: INSULIN GLARGINE [LANtus] 3 ML PEN SC SCH (10:01)
[2017-01-14] MEDS: CEFEPIME 2GM/50 ML (PMX) 50 ML IVPB SCH (10:32)
--- NOTE | 2017-01-14 13:02 | CONS ---
Date/Time of Note Date/Time of Note DATE: 01/14/17 TIME: 13:01 Assessment/Plan Assessment/Plan Chief Complaint/Hosp Course History of breast cancer with lung metastasis. The patient is on medical management. on Faslodex as outpt Anemia. Monitor hemoglobin and hematocrit levels. [employer] s/p cardiopulmonary arrest: Most likely due to pulmonary arrest P afib: currently in NSR History of renal failure status post renal transplant Acute on chronic hypoxemic hypercapnic respiratory failure status post tracheostomy currently on the vent POST THORACENTESIS CYTOLOGY- neg Shock: currently blood pressure has improved Chronic obstructive pulmonary disease exacerbation. Congestive heart failure exacerbation. Hypothyroidism. Diabetes. Continue current insulin regimen. Pulmonary hypertension. Depression. Problems: Consultation Date/Type/Reason Admit Date/Time Jan 05, 2017 at 00:15 Initial Consult Date 01/05/17 [facility] Referring Provider: SUSAN SIMENTAL DO 24 HR Interval Summary Free Text/Dictation all noted Exam/Review of Systems Vital Signs Vitals Vital Signs Date Time Temp Pulse Resp B/P Pulse Ox O2 Delivery O2 Flow Rate FiO2 01/14/17 10:30 84 16 138/57 100 Mechanical Ventilator 01/14/17 08:09 30 01/14/17 08:00 98.4 Intake and Output 01/13/17 01/13/17 01/14/17 14:59 22:59 06:59 Intake Total 570.04 ml 685.04 ml 387.24 ml Output Total 160 ml 175 ml 135 ml Balance 410.04 ml 510.04 ml 252.24 ml Exam HEENT: Head is normocephalic. NECK: Supple. HEART: Regular rate. LUNGS: Show diminished breath sounds at the base. ABDOMEN: Soft, nontender to palpation. No rebound or guarding. EXTREMITIES: Negative for clubbing, cyanosis. No edema. DERMATOLOGIC: Clean. No rashes. MUSCULOSKELETAL: No joint effusion. NEUROLOGIC: No change in exam. + SCROTAL EDEMA NO NEW PETECHIA OR HEMATOMA Results Result Diagram: 01/14/17 0448 01/14/17 0448 Results 24 hrs Laboratory Tests Test 01/13/17 13:02 01/13/17 17:58 01/13/17 21:11 01/14/17 00:49 Bedside Glucose 251 H 229 H 206 189 Test 01/14/17 04:47 01/14/17 04:48 01/14/17 09:47 Bedside Glucose 160 228 H Iron Level 55 Total Iron Binding Capacity 146 L Percent Iron Saturation 38 Ferritin 1540.0 H White Blood Count 8.9 Red Blood Count 2.53 L Hemoglobin 7.5 L Hematocrit 23.2 L Mean Corpuscular Volume 91.7 Mean Corpuscular Hemoglobin 29.6 Mean Corpuscular Hemoglobin Concent 32.3 Red Cell Distribution Width 14.9 H Platelet Count 220 Mean Platelet Volume 10.3 Neutrophils % 76.2 Lymphocytes % 8.6 L Monocytes % 7.1 Eosinophils % 3.4 Basophils % 0.1 Nucleated Red Blood Cells % 0.0 Neutrophils # 6.8 Lymphocytes # 0.8 Monocytes # 0.6 Eosinophils # 0.3 Basophils # 0.0 Nucleated Red Blood Cells # 0.0 Sodium Level 126 L Potassium Level 4.0 Chloride Level 94 L Carbon Dioxide Level 25 Anion Gap 11 Blood Urea Nitrogen 82 H Creatinine 2.75 H Glucose Level 139 Calcium Level 9.1 Phosphorus Level 4.0 Magnesium Level 2.4 Medications Medications Current Medications Cefepime HCl (Maxipime 2gm/50 ml (Pmx)) 50 ml @ 100 mls/hr DAILY IVPB Last administered on 01/14/17 10:32; Admin Dose 100 MLS/HR; Start 01/05/17 at 02:30 Naloxone HCl (Narcan) 0.4 mg Q4 PRN IV SEDATION; Start 01/05/17 at 01:30 Acetaminophen (Tylenol Tab) 650 mg Q6H PRN PO PAIN AND OR ELEVATED TEMP; Start 01/05/17 at 10:30 Apixaban (Eliquis) 2.5 mg BID PO Last administered on 01/14/17 09:52; Admin Dose 2.5 MG; Start 01/05/17 at 10:30 Ascorbic Acid (Vitamin C) 500 mg BID PO Last administered on 01/14/17 09:51; Admin Dose 500 MG; Start 01/05/17 at 10:30 Bisacodyl (Dulcolax Supp) 10 mg DAILY [place] Last administered on 01/14/17 09:53; Admin Dose 10 MG; Start 01/06/17 at 09:00 Budesonide (Pulmicort (Neb)) 0.25 mg BID NEB Last administered on 01/14/17 08: 06; Admin Dose 0.25 MG; Start 01/05/17 at 10:30 Docusate Sodium (Colace) 100 mg BID PO Last administered on 01/14/17 09:52; Admin Dose 100 MG; Start 01/05/17 at 10:30 Fluticasone Propionate (Flonase 0.05% Nasal) 1 spray DAILY NASAL Last administered on 01/14/17 09:53; Admin Dose 1 SPRAY; Start 01/05/17 at 11:00 Fulvestrant (Faslodex) 500 mg Q28D IM ; Start 01/29/17 at 09:00 Insulin Glargine (Lantus) 18 unit DAILY SC Last administered on 01/14/17 10:01 ; Admin Dose 18 UNIT; Start 01/05/17 at 10:30 Loratadine (Claritin) 10 mg DAILY PO Last administered on 01/14/17 09:52; Admin Dose 10 MG; Start 01/05/17 at 11:00 Magnesium Hydroxide (Milk Of Mag) 30 ml BID PRN PO CONSTIPATION; Start at 10:30 Magnesium Oxide (Mag-Ox 400) 400 mg DAILY PO Last administered on 01/14/17 09: 51; Admin Dose 400 MG; Start 01/05/17 at 10:30 Mirtazapine (Remeron) 15 mg HS PO Last administered on 01/13/17 21:04; Admin Dose 15 MG; Start 01/05/17 at 21:00 Nitroglycerin (Nitroglycerin 2% Oint) 0.5 inch Q6 PRN TD CHEST PAIN; Start 03/13 at 10:30 Ondansetron HCl (Zofran Inj) 4 mg Q6H PRN IV NAUSEA Last administered on 15:55; Admin Dose 4 MG; Start 01/05/17 at 10:30 Sertraline HCl (Zoloft) 75 mg DAILY PO Last administered on 01/14/17 09:53; Admin Dose 75 MG; Start 01/05/17 at 10:30 Sildenafil Citrate (Revatio) 20 mg TID PO Last administered on 01/14/17 09:52 ; Admin Dose 20 MG; Start 01/05/17 at 13:00 Tacrolimus (Prograf) 2 mg QPM PO Last administered on 01/13/17 21:05; Admin Dose 2 MG; Start 01/05/17 at 21:00 Pantoprazole (Protonix Tab) 40 mg DAILY@06 PO Last administered on 01/14/17 06 :04; Admin Dose 40 MG; Start 01/06/17 at 06:00 Senna (Senokot) 1 tab HS PO Last administered on 01/13/17 21:25; Admin Dose 1 TAB; Start 01/05/17 at 21:00 Prednisone (Prednisone) 5 mg DAILY PO Last administered on 01/14/17 09:52; Admin Dose 5 MG; Start 01/05/17 at 12:00 Prednisone (Prednisone) 3 mg DAILY PO Last administered on 01/14/17 09:51; Admin Dose 3 MG; Start 01/05/17 at 12:00 Miscellaneous Information 1 ea NOTE XX ; Start 01/05/17 at 11:00 Glucose (Glutose) 15 gm Q15M PRN PO DECREASED GLUCOSE; Start 01/05/17 at 11:00 Glucose (Glutose) 22.5 gm Q15M PRN PO DECREASED GLUCOSE; Start 01/05/17 at 11: 00 Dextrose (D50w Syringe) 25 ml Q15M PRN IV DECREASED GLUCOSE Last administered on 01/09/17 04:45; Admin Dose 25 ML; Start 01/05/17 at 11:00 Dextrose (D50w Syringe) 50 ml Q15M PRN IV DECREASED GLUCOSE Last administered on 01/08/17 21:33; Admin Dose 50 ML; Start 01/05/17 at 11:00 Glucagon (Glucagen) 1 mg Q15M PRN IM DECREASED GLUCOSE; Start 01/05/17 at 11:00 Glucose (Glutose) 15 gm Q15M PRN BUCCAL DECREASED GLUCOSE; Start 01/05/17 at 11 :00 Oxcarbazepine (Trileptal) 600 mg BID PO Last administered on 01/14/17 09:52; Admin Dose 600 MG; Start 01/05/17 at 12:00 Insulin Aspart NOVOLOG *MILD* ALGORI... Q4 SC Last administered on 01/14/17 09 :57; Admin Dose 3 UNIT; Start 01/05/17 at 13:00 Fentanyl 100 ml @ 2.5 mls/hr TITRATE IV Last administered on 01/07/17 02:25; Admin Dose 7.5 MLS/HR; Start 01/06/17 at 09:30 Norepinephrine/ Dextrose (Levophed/D5W) 500 ml @ 0 mls/hr TITRATE IV ; Start 04/12 at 13:30 Bumetanide 1 mg 1 mg BID IV Last administered on 01/13/17 21:06; Admin Dose 1 MG; Start 01/08/17 at 09:00; Status Future Hold Caspofungin 50 mg/ Sodium Chloride 250 ml @ 250 mls/hr Q24H IVPB Last administered on 01/13/17 15:11; Admin Dose 250 MLS/HR; Start 01/09/17 at 15:00 Propofol (Diprivan) 100 ml @ 2.19 mls/hr Q12H IV Last administered on 01:30; Admin Dose 4.38 MLS/HR; Start 01/08/17 at 16:00 Metoprolol Tartrate (Lopressor) 25 mg BID PO Last administered on 01/14/17 09: 53; Admin Dose 25 MG; Start 01/12/17 at 21:00 Miscellaneous Information (*Order Clarification Bulletin) FULVESTRANT 250 MG/5 ML SYG: PLE... Q8H XX ; Start 01/26/17 at 09:00 SHANICE DAVENPORT MD Jan 14, 2017 13:02
--- NOTE | 2017-01-14 13:46 | CONS ---
Date/Time of Note Date/Time of Note DATE: 01/14/17 TIME: 13:45 Consult Date/Type/Reason Admit Date/Time Jan 05, 2017 at 00:15 Initial Consult Date 01/05/17 Type of Consultation: Pulmonary Ordering Provider: SUSAN SIMENTAL DO Subjective Currently remains hemodynamically stable. Failed CPAP trial this morning. Objective Vital Signs Date Time Temp Pulse Resp B/P Pulse Ox O2 Delivery O2 Flow Rate FiO2 01/14/17 12:00 82 01/14/17 12:00 30 01/14/17 11:21 14 99 01/14/17 10:30 138/57 Mechanical Ventilator 01/14/17 08:00 98.4 Intake and Output 01/13/17 01/13/17 01/14/17 15:00 23:00 07:00 Intake Total 495.04 ml 685.04 ml 342.86 ml Output Total 175 ml 165 ml 120 ml Balance 320.04 ml 520.04 ml 222.86 ml Exam PHYSICAL EXAMINATION GENERAL: Elderly lady on mechanical ventilation VITAL SIGNS: see below. HEENT: Pupils equal, round, and reactive to light. CARDIAC: S1, S2, 1/6 systolic ejection murmur CHEST: Diminished air entry bilaterally. ABDOMEN: Mildly distended. Bowel sounds present no guarding or rebound EXTREMITIES: No cyanosis, clubbing edema +1 NEUROLOGIC: Generalized weakness Results/Medications Result Diagram: 01/14/178 01/14/17 0448 Results 24 hrs Laboratory Tests Test 01/13/17 17:58 01/13/17 21:11 01/14/17 00:49 01/14/17 04:47 Bedside Glucose 229 H 206 189 160 Iron Level 55 Total Iron Binding Capacity 146 L Percent Iron Saturation 38 Ferritin 1540.0 H Test 01/14/17 04:48 01/14/17 09:47 White Blood Count 8.9 Red Blood Count 2.53 L Hemoglobin 7.5 L Hematocrit 23.2 L Mean Corpuscular Volume 91.7 Mean Corpuscular Hemoglobin 29.6 Mean Corpuscular Hemoglobin Concent 32.3 Red Cell Distribution Width 14.9 H Platelet Count 220 Mean Platelet Volume 10.3 Neutrophils % 76.2 Lymphocytes % 8.6 L Monocytes % 7.1 Eosinophils % 3.4 Basophils % 0.1 Nucleated Red Blood Cells % 0.0 Neutrophils # 6.8 Lymphocytes # 0.8 Monocytes # 0.6 Eosinophils # 0.3 Basophils # 0.0 Nucleated Red Blood Cells # 0.0 Sodium Level 126 L Potassium Level 4.0 Chloride Level 94 L Carbon Dioxide Level 25 Anion Gap 11 Blood Urea Nitrogen 82 H Creatinine 2.75 H Glucose Level 139 Calcium Level 9.1 Phosphorus Level 4.0 Magnesium Level 2.4 Bedside Glucose 228 H Medications Current Medications Cefepime HCl (Maxipime 2gm/50 ml (Pmx)) 50 ml @ 100 mls/hr DAILY IVPB Last administered on 01/14/17 10:32; Admin Dose 100 MLS/HR; Start 01/05/17 at 02:30 Naloxone HCl (Narcan) 0.4 mg Q4 PRN IV SEDATION; Start 01/05/17 at 01:30 Acetaminophen (Tylenol Tab) 650 mg Q6H PRN PO PAIN AND OR ELEVATED TEMP; Start 01/05/17 at 10:30 Apixaban (Eliquis) 2.5 mg BID PO Last administered on 01/14/17 09:52; Admin Dose 2.5 MG; Start 01/05/17 at 10:30 Ascorbic Acid (Vitamin C) 500 mg BID PO Last administered on 01/14/17 09:51; Admin Dose 500 MG; Start 01/05/17 at 10:30 Bisacodyl (Dulcolax Supp) 10 mg DAILY [place] Last administered on 01/14/17 09:53; Admin Dose 10 MG; Start 01/06/17 at 09:00 Budesonide (Pulmicort (Neb)) 0.25 mg BID NEB Last administered on 01/14/17 08: 06; Admin Dose 0.25 MG; Start 01/05/17 at 10:30 Docusate Sodium (Colace) 100 mg BID PO Last administered on 01/14/17 09:52; Admin Dose 100 MG; Start 01/05/17 at 10:30 Fluticasone Propionate (Flonase 0.05% Nasal) 1 spray DAILY NASAL Last administered on 01/14/17 09:53; Admin Dose 1 SPRAY; Start 01/05/17 at 11:00 Fulvestrant (Faslodex) 500 mg Q28D IM ; Start 01/29/17 at 09:00 Insulin Glargine (Lantus) 18 unit DAILY SC Last administered on 01/14/17 10:01 ; Admin Dose 18 UNIT; Start 01/05/17 at 10:30 Loratadine (Claritin) 10 mg DAILY PO Last administered on 01/14/17 09:52; Admin Dose 10 MG; Start 01/05/17 at 11:00 Magnesium Hydroxide (Milk Of Mag) 30 ml BID PRN PO CONSTIPATION; Start at 10:30 Magnesium Oxide (Mag-Ox 400) 400 mg DAILY PO Last administered on 01/14/17 09: 51; Admin Dose 400 MG; Start 01/05/17 at 10:30 Mirtazapine (Remeron) 15 mg HS PO Last administered on 01/13/17 21:04; Admin Dose 15 MG; Start 01/05/17 at 21:00 Nitroglycerin (Nitroglycerin 2% Oint) 0.5 inch Q6 PRN TD CHEST PAIN; Start 03/13 at 10:30 Ondansetron HCl (Zofran Inj) 4 mg Q6H PRN IV NAUSEA Last administered on 15:55; Admin Dose 4 MG; Start 01/05/17 at 10:30 Sertraline HCl (Zoloft) 75 mg DAILY PO Last administered on 01/14/17 09:53; Admin Dose 75 MG; Start 01/05/17 at 10:30 Sildenafil Citrate (Revatio) 20 mg TID PO Last administered on 01/14/17 09:52 ; Admin Dose 20 MG; Start 01/05/17 at 13:00 Tacrolimus (Prograf) 2 mg QPM PO Last administered on 01/13/17 21:05; Admin Dose 2 MG; Start 01/05/17 at 21:00 Pantoprazole (Protonix Tab) 40 mg DAILY@06 PO Last administered on 01/14/17 06 :04; Admin Dose 40 MG; Start 01/06/17 at 06:00 Senna (Senokot) 1 tab HS PO Last administered on 01/13/17 21:25; Admin Dose 1 TAB; Start 01/05/17 at 21:00 Prednisone (Prednisone) 5 mg DAILY PO Last administered on 01/14/17 09:52; Admin Dose 5 MG; Start 01/05/17 at 12:00 Prednisone (Prednisone) 3 mg DAILY PO Last administered on 01/14/17 09:51; Admin Dose 3 MG; Start 01/05/17 at 12:00 Miscellaneous Information 1 ea NOTE XX ; Start 01/05/17 at 11:00 Glucose (Glutose) 15 gm Q15M PRN PO DECREASED GLUCOSE; Start 01/05/17 at 11:00 Glucose (Glutose) 22.5 gm Q15M PRN PO DECREASED GLUCOSE; Start 01/05/17 at 11: 00 Dextrose (D50w Syringe) 25 ml Q15M PRN IV DECREASED GLUCOSE Last administered on 01/09/17 04:45; Admin Dose 25 ML; Start 01/05/17 at 11:00 Dextrose (D50w Syringe) 50 ml Q15M PRN IV DECREASED GLUCOSE Last administered on 01/08/17 21:33; Admin Dose 50 ML; Start 01/05/17 at 11:00 Glucagon (Glucagen) 1 mg Q15M PRN IM DECREASED GLUCOSE; Start 01/05/17 at 11:00 Glucose (Glutose) 15 gm Q15M PRN BUCCAL DECREASED GLUCOSE; Start 01/05/17 at 11 :00 Oxcarbazepine (Trileptal) 600 mg BID PO Last administered on 01/14/17 09:52; Admin Dose 600 MG; Start 01/05/17 at 12:00 Insulin Aspart NOVOLOG *MILD* ALGORI... Q4 SC Last administered on 01/14/17 09 :57; Admin Dose 3 UNIT; Start 01/05/17 at 13:00 Fentanyl 100 ml @ 2.5 mls/hr TITRATE IV Last administered on 01/07/17 02:25; Admin Dose 7.5 MLS/HR; Start 01/06/17 at 09:30 Norepinephrine/ Dextrose (Levophed/D5W) 500 ml @ 0 mls/hr TITRATE IV ; Start 04/12 at 13:30 Bumetanide 1 mg 1 mg BID IV Last administered on 01/13/17 21:06; Admin Dose 1 MG; Start 01/08/17 at 09:00; Status Future Hold Caspofungin 50 mg/ Sodium Chloride 250 ml @ 250 mls/hr Q24H IVPB Last administered on 01/13/17 15:11; Admin Dose 250 MLS/HR; Start 01/09/17 at 15:00 Propofol (Diprivan) 100 ml @ 2.19 mls/hr Q12H IV Last administered on 01:30; Admin Dose 4.38 MLS/HR; Start 01/08/17 at 16:00 Metoprolol Tartrate (Lopressor) 25 mg BID PO Last administered on 01/14/17 09: 53; Admin Dose 25 MG; Start 01/12/17 at 21:00 Miscellaneous Information (*Order Clarification Bulletin) FULVESTRANT 250 MG/5 ML SYG: PLE... Q8H XX ; Start 01/26/17 at 09:00 Assessment/Plan Chief Complaint/Hosp Course IMPRESSION: 1. Hypoxemic respiratory failure. Status post thoracentesis. Failed multiple CPAP weaning trials 2. Possible altered mental status secondary to opioids. Significant anxiety component. 3. History of renal transplant. Renal insufficiency. PLAN: 1. May require tracheostomy recommend family conference. 2. Decrease sedation as tolerated. 3. Continue ID recommendations 4. Renal recommendations. 5. DVT and GI prophylaxis. Critical care time 40 minutes. Problems: LESA SAMUELS MD, [facility] Jan 14, 2017 13:46
[2017-01-14 13:50] LABS: ADD UMIC YES; UR ASCORBIC ACID 40 mg/dL (NEGATIVE); UR BACTERIA FEW /HPF (NONE SEEN); UR BILIRUBIN (Dip) NEGATIVE (NEGATIVE); UR BLOOD (Dip) 2+ mg/dL (NEGATIVE); UR CLARITY CLOUDY (CLEAR); UR COLOR YELLOW (YELLOW); UR GLUCOSE (Dip) NEGATIVE (NEGATIVE); UR KETONES (Dip) TRACE mg/dL (NEGATIVE); UR LEUKOCYTE ESTERASE (Dip) 2+ Leu/ul (NEGATIVE); UR MUCUS FEW /HPF (NONE SEEN); UR NITRITE (Dip) NEGATIVE (NEGATIVE); UR RBC > 182 /HPF (0-5); UR SPECIFIC GRAVITY (Dip) 1.016 (1.003-1.030); UR TOTAL PROTEIN (Dip) 2+ mg/dl (NEGATIVE); UR UROBILINOGEN (Dip) NEGATIVE (NEGATIVE)
--- NOTE | 2017-01-14 14:06 | PN ---
DATE: SUBJECTIVE DATA: No events overnight. The patient is lying comfortably in bed. Intubated, sedated, in no distress. Temperature 98.4, pulse 89, respirations 16, blood pressure 119/55, saturation 96 on vent. LABORATORY AND DIAGNOSTIC DATA: WBC 8.9, H and H 7.5 and 23.2, platelets 229, no shift, no bands. BUN 82, creatinine 2.75. INDWELLINGS: Endotracheal tube, NG tube, Dela Cruz catheter, femoral triple lumen catheter. DIAGNOSTICS: Chest x-ray this morning revealed increased left lower lobe infiltrate, combined with small pleural effusion. ANTIMICROBIALS: The patient remains on: 1. Cancidas. 2. Cefepime. PHYSICAL EXAMINATION: GENERAL: This is a fragile, chronically ill-appearing, elderly woman, who is in no distress. HEENT: Head atraumatic, normocephalic. Sclerae anicteric. Buccal mucosa dry. NECK: Supple. Trachea sodium midline. CHEST: Chest rise symmetrical. Breath sounds diminished at the bases. HEART: S1, S2. ABDOMEN: Soft, bowel sounds hypoactive. EXTREMITIES: Cyanotic, mottled with trace edema. ASSESSMENT: 1. Resolving sepsis status post shock. 2. Acute respiratory failure, possibly aspiration event. 3. Pneumonia. 4. Acute on chronic kidney disease. 5. History of kidney transplant, on immunosuppression if therapy. 6. Diabetes. 7. History of metastatic breast cancer. PLAN: The patient remains stable. Continue present care. Complete antibiotics. Follow recommendations of consultants. Dictated By: Artis Castañeda NP /[email or web address] /Document#: [id number]
[2017-01-14] MEDS: CASPOFUNGIN 50 MG in SOD CHLORIDE 0.9% 250 ML IVPB SCH (15:18)
[2017-01-14] MEDS: MIRTAZAPINE 15 MG TAB PO SCH (20:50)
[2017-01-14] MEDS: SENNA TAB PO SCH (20:51)
[2017-01-15] VITALS (75 sets, daily range): BP systolic 94–169; BP diastolic 41–129; PULSE 56–110; RESP 12–33
[2017-01-15] MEDS: INSULIN ASPART [NOVOLOG] 3 ML PEN SC SCH ×6 (01:00→21:37)
[2017-01-15] MEDS: IPRATROPIUM (HFA) 12.9 GM INHALER INH SCH ×4 (01:29→20:14)
[2017-01-15] MEDS: ALBUTEROL 18 GM INHALER INH SCH ×4 (01:29→20:15)
[2017-01-15] MEDS: PANTOPRAZOLE (EC) 40 MG TAB PO SCH (05:08)
[2017-01-15 06:14] LABS: BASOPHILS % 0.1 % (0.0-2.0); EOSINOPHILS # 0.3 10^3/ul (0.0-0.5); EOSINOPHILS % 3.9 % (0.0-7.0); HEMATOCRIT 22.9 % (37.0-47.0); HEMOGLOBIN 7.5 g/dl (12.0-16.0); LYMPHOCYTES # 0.8 10^3/ul (0.8-2.9); MEAN CORPUSCULAR HEMOGLOBIN 29.6 pg (29.0-33.0); MEAN CORPUSCULAR HGB CONC 32.8 g/dl (32.0-37.0); MEAN CORPUSCULAR VOLUME 90.5 fl (82.0-101.0); MEAN PLATELET VOLUME 10.7 fl (7.4-10.4); MONOCYTE # 0.5 10^3/ul (0.3-0.9); MONOCYTES % 6.7 % (0.0-11.0); NEUTROPHIL # 5.8 10^3/ul (1.6-7.5); NEUTROPHILS % 74.4 % (39.0-77.0); PLATELET COUNT 230 10^3/UL (140-415); RED BLOOD COUNT 2.53 10^6/ul (4.20-5.40); RED CELL DISTRIBUTION WIDTH 15.1 % (11.5-14.5); WHITE BLOOD COUNT 7.7 10^3/ul (4.8-10.8)
[2017-01-15] MEDS: LEVOTHYROXINE 75 MCG TAB PO SCH (06:19)
[2017-01-15 06:43] LABS: CALCIUM 8.8 mg/dl (8.4-10.2); CREATININE 3.1 mg/dl (0.44-1.00); MAGNESIUM 2.4 mg/dl (1.7-2.5); PHOSPHORUS 4.1 mg/dl (2.5-4.9)
--- NOTE | 2017-01-15 07:31 | CONS ---
Date/Time of Note Date/Time of Note DATE: 01/15/17 TIME: 07:29 Consult Date/Type/Reason Admit Date/Time Jan 05, 2017 at 00:15 Initial Consult Date 01/05/17 Type of Consultation: CARDIOLOGY Ordering Provider: SUSAN SIMENTAL DO Subjective CARDIOLOGY FOLLOW UP NOTE: D/W Staff and rhythm was reviewed. pt has remained in Afib. HR has been stable mostly now pt still remains intubated on vent. pt was extubated on 01/07/17 but had to be re -intubated again the same night due to resp distress even on BIPAP. NO reports of any chest pain or pressure OBJECTIVE: General: intubated on vent. HEENT: NC/AT. pupils are equal. round. NECK: NO JVD. no stridor. CV:irregularly irregular. systolic murmur; no gallop or rubs. PULM: no wheezing, + mild rhonchi. GI: SOFT, NT, ND, no rebound or guarding Extremity: trace B/L LE edema. no clubbing. neuro: sedated now. Psych: unable to assess rectal: deferred : normal ECHO 12/16/16: Personally reviewed 1. Normal left ventricular systolic function. Normal left ventricular cavity size. Moderate concentric left ventricular hypertrophy. Ejection fraction is visually estimated at 65 %. Abnormal Diastolic Function. 2. There is moderate enlargement of left atrium. 3. Mild mitral leaflet calcification. Mild mitral annular calcification. Trace mitral regurgitation. 4. Aortic sclerosis without stenosis. Trace aortic valve regurgitation. 5. Normal appearance of the tricuspid valve. Estimated peak PA systolic pressure 38 mmHg. There is mild tricuspid regurgitation. ' cxr: IMPRESSION: Cardiomegaly . Central pulmonary vascular congestion and interstitial prominence in both lungs. Interval increase in left lower lobe infiltrates, combined with small pleural effusion. Atelectasis at the right lung base possibly combined with small pleural effusion. Objective Vital Signs Date Time Temp Pulse Resp B/P Pulse Ox O2 Delivery O2 Flow Rate FiO2 01/15/17 06:15 66 16 100 01/15/17 06:00 119/44 01/15/17 04:00 98.1 01/15/17 03:25 30 01/14/17 20:00 Mechanical Ventilator Intake and Output 01/14/17 01/14/17 01/15/17 15:00 23:00 07:00 Intake Total 605.04 ml 725.04 ml 273.27 ml Output Total 80 ml 145 ml 75 ml Balance 525.04 ml 580.04 ml 198.27 ml Results/Medications Result Diagram: 01/15/17 0528 01/15/17 0528 Results 24 hrs Laboratory Tests Test 01/14/17 08:00 01/14/17 09:47 01/14/17 16:30 01/14/17 17:33 Urine Color YELLOW Urine Clarity CLOUDY A Urine pH 5.0 Urine Specific [place] 1.016 Urine Ketones TRACE A Urine Nitrite NEGATIVE Urine Bilirubin NEGATIVE Urine Urobilinogen NEGATIVE Urine Leukocyte Esterase 2+ H Urine Microscopic RBC > 182 H Urine Microscopic WBC 70 H Urine Bacteria FEW A Urine Mucus FEW A Urine Hemoglobin 2+ H Urine Glucose NEGATIVE Urine Total Protein 2+ H 114.0 H Bedside Glucose 228 H 185 Urine Random Creatinine 74.44 Urine Random Sodium 23 L Test 01/14/17 20:47 01/15/17 05:13 01/15/17 05:28 Bedside Glucose 121 102 White Blood Count 7.7 Red Blood Count 2.53 L Hemoglobin 7.5 L Hematocrit 22.9 L Mean Corpuscular Volume 90.5 Mean Corpuscular Hemoglobin 29.6 Mean Corpuscular Hemoglobin Concent 32.8 Red Cell Distribution Width 15.1 H Platelet Count 230 Mean Platelet Volume 10.7 H Neutrophils % 74.4 Lymphocytes % 10.0 L Monocytes % 6.7 Eosinophils % 3.9 Basophils % 0.1 Nucleated Red Blood Cells % 0.0 Neutrophils # 5.8 Lymphocytes # 0.8 Monocytes # 0.5 Eosinophils # 0.3 Basophils # 0.0 Nucleated Red Blood Cells # 0.0 Sodium Level 126 L Potassium Level 4.0 Chloride Level 94 L Carbon Dioxide Level 24 Anion Gap 12 Blood Urea Nitrogen 92 H Creatinine 3.10 H Glucose Level 85 # Calcium Level 8.8 Phosphorus Level 4.1 Magnesium Level 2.4 Medications Current Medications Cefepime HCl (Maxipime 2gm/50 ml (Pmx)) 50 ml @ 100 mls/hr DAILY IVPB Last administered on 01/14/17t 10:32; Admin Dose 100 MLS/HR; Start 01/05/17 at 02:30 Naloxone HCl (Narcan) 0.4 mg Q4 PRN IV SEDATION; Start 01/05/17 at 01:30 Acetaminophen (Tylenol Tab) 650 mg Q6H PRN PO PAIN AND OR ELEVATED TEMP; Start 01/05/17 at 10:30 Apixaban (Eliquis) 2.5 mg BID PO Last administered on 01/14/17 20:50; Admin Dose 2.5 MG; Start 01/05/17 at 10:30 Ascorbic Acid (Vitamin C) 500 mg BID PO Last administered on 01/14/17 20:49; Admin Dose 500 MG; Start 01/05/17 at 10:30 Bisacodyl (Dulcolax Supp) 10 mg DAILY [place] Last administered on 01/14/17 09:53; Admin Dose 10 MG; Start 01/06/17 at 09:00 Budesonide (Pulmicort (Neb)) 0.25 mg BID NEB Last administered on 01/14/17 08: 06; Admin Dose 0.25 MG; Start 01/05/17 at 10:30 Docusate Sodium (Colace) 100 mg BID PO Last administered on 01/14/17 20:51; Admin Dose 100 MG; Start 01/05/17 at 10:30 Fluticasone Propionate (Flonase 0.05% Nasal) 1 spray DAILY NASAL Last administered on 01/14/17 09:53; Admin Dose 1 SPRAY; Start 01/05/17 at 11:00 Fulvestrant (Faslodex) 500 mg Q28D IM ; Start 01/29/17 at 09:00 Insulin Glargine (Lantus) 18 unit DAILY SC Last administered on 01/14/17 10:01 ; Admin Dose 18 UNIT; Start 01/05/17 at 10:30 Loratadine (Claritin) 10 mg DAILY PO Last administered on 01/14/17 09:52; Admin Dose 10 MG; Start 01/05/17 at 11:00 Magnesium Hydroxide (Milk Of Mag) 30 ml BID PRN PO CONSTIPATION; Start at 10:30 Magnesium Oxide (Mag-Ox 400) 400 mg DAILY PO Last administered on 01/14/17 09: 51; Admin Dose 400 MG; Start 01/05/17 at 10:30 Mirtazapine (Remeron) 15 mg HS PO Last administered on 01/14/17 20:50; Admin Dose 15 MG; Start 01/05/17 at 21:00 Nitroglycerin (Nitroglycerin 2% Oint) 0.5 inch Q6 PRN TD CHEST PAIN; Start 03/13 at 10:30 Ondansetron HCl (Zofran Inj) 4 mg Q6H PRN IV NAUSEA Last administered on 15:55; Admin Dose 4 MG; Start 01/05/17 at 10:30 Sertraline HCl (Zoloft) 75 mg DAILY PO Last administered on 01/14/17 09:53; Admin Dose 75 MG; Start 01/05/17 at 10:30 Sildenafil Citrate (Revatio) 20 mg TID PO Last administered on 01/14/17 13:46 ; Admin Dose 20 MG; Start 01/05/17 at 13:00 Tacrolimus (Prograf) 2 mg QPM PO Last administered on 01/14/17 20:51; Admin Dose 2 MG; Start 01/05/17 at 21:00 Pantoprazole (Protonix Tab) 40 mg DAILY@06 PO Last administered on 01/15/17 05 :08; Admin Dose 40 MG; Start 01/06/17 at 06:00 Senna (Senokot) 1 tab HS PO Last administered on 01/14/17 20:51; Admin Dose 1 TAB; Start 01/05/17 at 21:00 Prednisone (Prednisone) 5 mg DAILY PO Last administered on 01/14/17 09:52; Admin Dose 5 MG; Start 01/05/17 at 12:00 Prednisone (Prednisone) 3 mg DAILY PO Last administered on 01/14/17 09:51; Admin Dose 3 MG; Start 01/05/17 at 12:00 Miscellaneous Information 1 ea NOTE XX ; Start 01/05/17 at 11:00 Glucose (Glutose) 15 gm Q15M PRN PO DECREASED GLUCOSE; Start 01/05/17 at 11:00 Glucose (Glutose) 22.5 gm Q15M PRN PO DECREASED GLUCOSE; Start 01/05/17 at 11: 00 Dextrose (D50w Syringe) 25 ml Q15M PRN IV DECREASED GLUCOSE Last administered on 01/09/17 04:45; Admin Dose 25 ML; Start 01/05/17 at 11:00 Dextrose (D50w Syringe) 50 ml Q15M PRN IV DECREASED GLUCOSE Last administered on 01/08/17 21:33; Admin Dose 50 ML; Start 01/05/17 at 11:00 Glucagon (Glucagen) 1 mg Q15M PRN IM DECREASED GLUCOSE; Start 01/05/17 at 11:00 Glucose (Glutose) 15 gm Q15M PRN BUCCAL DECREASED GLUCOSE; Start 01/05/17 at 11 :00 Oxcarbazepine (Trileptal) 600 mg BID PO Last administered on 01/14/17 20:50; Admin Dose 600 MG; Start 01/05/17 at 12:00 Insulin Aspart NOVOLOG *MILD* ALGORI... Q4 SC Last administered on 01/14/17 17 :38; Admin Dose 2 UNIT; Start 01/05/17 at 13:00 Fentanyl 100 ml @ 2.5 mls/hr TITRATE IV Last administered on 01/07/17 02:25; Admin Dose 7.5 MLS/HR; Start 01/06/17 at 09:30 Norepinephrine/ Dextrose (Levophed/D5W) 500 ml @ 0 mls/hr TITRATE IV ; Start 04/12 at 13:30 Bumetanide 1 mg 1 mg BID IV Last administered on 01/13/17 21:06; Admin Dose 1 MG; Start 01/08/17 at 09:00; Status Future Hold Caspofungin 50 mg/ Sodium Chloride 250 ml @ 250 mls/hr Q24H IVPB Last administered on 01/14/17 15:18; Admin Dose 250 MLS/HR; Start 01/09/17 at 15:00 Propofol (Diprivan) 100 ml @ 2.19 mls/hr Q12H IV Last administered on 17:24; Admin Dose 4.38 MLS/HR; Start 01/08/17 at 16:00 Metoprolol Tartrate (Lopressor) 25 mg BID PO Last administered on 01/14/17 09: 53; Admin Dose 25 MG; Start 01/12/17 at 21:00 Miscellaneous Information (*Order Clarification Bulletin) FULVESTRANT 250 MG/5 ML SYG: PLE... Q8H XX ; Start 01/26/17 at 09:00 Assessment/Plan Chief Complaint/Hosp Course Assessment: 1. s/p cardiopulmonary arrest: Most likely due to pulmonary arrest 2. P afib: 3. History of renal failure status post renal transplant: now with KATI on CKD 4. Acute on chronic hypoxemic hypercapnic respiratory failure status post reintubation: currently on the vent 5. Shock: resolved now. 6. ANEMIA 7. breast cancer 8. history of HTN: 9. anxiety 10. DM 11. Hypothyroidism: on synthroid. 12. pleural effusion : s/p thoracentesis Recommendations: cont eliquis as long as no signs of active bleeding and no surgery/ procedure is planned. vent support for now anti- rejection medications to be adjusted as per renal team cont DM control thyroid supplement betablocker as tolerated. correct lytes prn cont tele monitoring will give a dose of dig prn at very low dose. cont ICU care. Thank you for this referral I will continue to follow along with you. AUGUSTINA MALDONADO MD [facility] Problems: AUGUSTINA MALDONADO MD Jan 15, 2017 07:31
[2017-01-15] MEDS ORDERED: SOD CHLORIDE 0.9% 1,000 ML IV SCH (08:00)
--- NOTE | 2017-01-15 08:28 | PN ---
DATE: 01/15/2017 SUBJECTIVE DATA: The patient remains on full ventilatory support, unable to be weaned, failed weaning trials. No other events noted. OBJECTIVE DATA: VITAL SIGNS: Blood pressure is 119/84, respirations 16, pulse 65, temperature 98.6. I's and O's: Patient had 1600 in with 310 out. HEENT: Head is normocephalic. NECK: Supple. HEART: Regular rate. LUNGS: Show diminished breath sounds at the base. ABDOMEN: Soft, nontender to palpation. No rebound or guarding. EXTREMITIES: Negative for clubbing, cyanosis. No edema. DERMATOLOGIC: Clean. No rashes. MUSCULOSKELETAL: No joint effusion. NEUROLOGIC: No change in exam. MEDICATIONS: Reviewed. LABORATORY AND DIAGNOSTIC DATA: Shows sodium 126, potassium 4.0, chloride 94, BUN 92, creatinine 3.10. White count 7.7, hemoglobin 7.5, crit of 22.9, and platelet count is 230. The patient's urinalysis shows 70 WBCs, greater than 182 RBCs. The patient has a protein/creatinine ratio approximately 1.2 g/g creatinine, FENa of less than 1 percent. ASSESSMENT AND PLAN: 1. Ventilatory-dependent respiratory failure. The patient's vent settings and ABGs have been reviewed. Continue weaning trials. 2. 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 Previous baseline creatinine 1.5 to 1.7 mg/dL. Etiology of acute kidney injury secondary to acute tubular necrosis. The patient's renal function has declined over the last several days. Urinalysis continues to show pyuria and hematuria. Urine was evaluated under microscopy. There was no evidence of dysmorphic red blood cells. The possibility of interstitial nephritis is a consideration. The patient also has a FENa of less than 1 percent, which may be suggestive of volume depletion. At this point, we will continue current treatment plan. We will give the patient fluid challenge. If renal function should further decline, we will consider starting patient on renal placement therapy. We will also follow up with a repeat Prograf level. 3. Acute congestive heart failure exacerbation. The patient appears more euvolemic. Diuretic therapy is on hold. Continue to monitor. Follow up with Cardiology. 4. Hyponatremia secondary to acute kidney injury. Continue to limit free water intake. 5. Paroxysmal atrial fibrillation. Currently in sinus rhythm. 6. Sepsis, status post shock, secondary to pneumonia. Continue current antibiotic regimen. 7. History of end-stage renal disease, status post renal transplant with chronic allograft failure. The patient is currently in acute kidney injury as stated above. Continue to monitor. 8. Hypothyroidism. Continue Synthroid. 9. Anemia. Monitor H and H levels. 10. History of breast cancer. 11. Diabetes. Continue current insulin regimen. 12. Pulmonary hypertension. Continue current medical management. 13. Anxiety, depression. Continue current treatment plan. 14. Dysphagia. Continue tube feeding. 15. Gastrointestinal and deep venous thrombosis prophylaxis. Please note, I spent over 35 minutes of critical care time with this patient. Dictated By: Cameron Rosenthal DO /[email or web address] /Document#: [id number]
[2017-01-15] MEDS: DOCUSATE SODIUM 100 MG CAP PO SCH ×2 (09:11→21:46)
[2017-01-15] MEDS: ASCORBIC ACID 500 MG TAB PO SCH ×2 (09:13→21:47)
[2017-01-15] MEDS: METOPROLOL 25 MG TAB PO SCH ×2 (09:13→21:47)
[2017-01-15] MEDS: OXCARBAZEPINE 300 MG TAB PO SCH ×2 (09:13→21:47)
[2017-01-15] MEDS: TACROLIMUS 1 MG CAP PO SCH ×2 (09:13→21:48)
[2017-01-15] MEDS: LORATADINE 10 MG TAB PO SCH (09:14)
[2017-01-15] MEDS: predniSONE 1 MG TAB PO SCH (09:14)
[2017-01-15] MEDS: predniSONE 5 MG TAB PO SCH (09:14)
[2017-01-15] MEDS: MAGNESIUM OXIDE 400 MG TAB PO SCH (09:14)
[2017-01-15] MEDS: BISACODYL 10 MG SUPP PR SCH (09:14)
[2017-01-15] MEDS: SERTRALINE 50 MG TAB PO SCH (09:14)
[2017-01-15] MEDS: APIXABAN 5 MG TABLET PO SCH ×2 (09:14→21:47)
[2017-01-15] MEDS: BALSAM PERU/CASTOR OIL 60 GM TUBE TOP SCH (09:30)
[2017-01-15] MEDS: CEFEPIME 2GM/50 ML (PMX) 50 ML IVPB SCH (09:30)
[2017-01-15] MEDS: FLUTICASONE 0.05% 16 GM NAS SPRAY NASAL SCH (09:30)
[2017-01-15] MEDS: SILDENAFIL 20 MG TAB PO SCH ×3 (09:30→21:57)
[2017-01-15] MEDS: INSULIN GLARGINE [LANtus] 3 ML PEN SC SCH (09:49)
--- NOTE | 2017-01-15 11:28 | CONS ---
Date/Time of Note Date/Time of Note DATE: 01/15/17 TIME: 11:27 Consult Date/Type/Reason Admit Date/Time Jan 05, 2017 at 00:15 Initial Consult Date 01/05/17 Type of Consultation: Pulmonary Ordering Provider: SUSAN SIMENTAL DO Subjective Patient failed CPAP trial again today. Continues mechanical ventilation. Objective Vital Signs Date Time Temp Pulse Resp B/P Pulse Ox O2 Delivery O2 Flow Rate FiO2 01/15/17 09:22 91 23 97 30 01/15/17 06:00 119/44 01/15/17 04:00 98.1 01/14/17 20:00 Mechanical Ventilator Intake and Output 01/14/17 01/14/17 01/15/17 15:00 23:00 07:00 Intake Total 605.04 ml 725.04 ml 273.27 ml Output Total 80 ml 145 ml 75 ml Balance 525.04 ml 580.04 ml 198.27 ml Exam PHYSICAL EXAMINATION GENERAL: Elderly lady on mechanical ventilation opens eyes but does not follow commands. VITAL SIGNS: see below. HEENT: Pupils equal, round, and reactive to light. CARDIAC: S1, S2, 1/6 systolic ejection murmur CHEST: Diminished air entry bilaterally. ABDOMEN: Mildly distended. Bowel sounds present no guarding or rebound EXTREMITIES: No cyanosis, clubbing edema +1 NEUROLOGIC: Generalized weakness Results/Medications Result Diagram: 01/15/1752701/15/17527 Results 24 hrs Laboratory Tests Test 01/14/17 16:30 01/14/17 17:33 01/14/17 20:47 01/15/17 05:13 Urine Random Creatinine 74.44 Urine Random Sodium 23 L Urine Total Protein 114.0 H Bedside Glucose 185 121 102 Test 01/15/17 05:28 01/15/17 09:43 White Blood Count 7.7 Red Blood Count 2.53 L Hemoglobin 7.5 L Hematocrit 22.9 L Mean Corpuscular Volume 90.5 Mean Corpuscular Hemoglobin 29.6 Mean Corpuscular Hemoglobin Concent 32.8 Red Cell Distribution Width 15.1 H Platelet Count 230 Mean Platelet Volume 10.7 H Neutrophils % 74.4 Lymphocytes % 10.0 L Monocytes % 6.7 Eosinophils % 3.9 Basophils % 0.1 Nucleated Red Blood Cells % 0.0 Neutrophils # 5.8 Lymphocytes # 0.8 Monocytes # 0.5 Eosinophils # 0.3 Basophils # 0.0 Nucleated Red Blood Cells # 0.0 Sodium Level 126 L Potassium Level 4.0 Chloride Level 94 L Carbon Dioxide Level 24 Anion Gap 12 Blood Urea Nitrogen 92 H Creatinine 3.10 H Glucose Level 85 # Calcium Level 8.8 Phosphorus Level 4.1 Magnesium Level 2.4 Bedside Glucose 141 Medications Current Medications Cefepime HCl (Maxipime 2gm/50 ml (Pmx)) 50 ml @ 100 mls/hr DAILY IVPB Last administered on 01/15/17 09:30; Admin Dose 100 MLS/HR; Start 01/05/17 at 02:30 Naloxone HCl (Narcan) 0.4 mg Q4 PRN IV SEDATION; Start 01/05/17 at 01:30 Acetaminophen (Tylenol Tab) 650 mg Q6H PRN PO PAIN AND OR ELEVATED TEMP; Start 01/05/17 at 10:30 Apixaban (Eliquis) 2.5 mg BID PO Last administered on 01/15/17 09:14; Admin Dose 2.5 MG; Start 01/05/17 at 10:30 Ascorbic Acid (Vitamin C) 500 mg BID PO Last administered on 01/15/17 09:13; Admin Dose 500 MG; Start 01/05/17 at 10:30 Bisacodyl (Dulcolax Supp) 10 mg DAILY [place] Last administered on 01/15/17 09:14; Admin Dose 10 MG; Start 01/06/17 at 09:00 Budesonide (Pulmicort (Neb)) 0.25 mg BID NEB Last administered on 01/14/17 08: 06; Admin Dose 0.25 MG; Start 01/05/17 at 10:30 Docusate Sodium (Colace) 100 mg BID PO Last administered on 01/15/17 09:11; Admin Dose 100 MG; Start 01/05/17 at 10:30 Fluticasone Propionate (Flonase 0.05% Nasal) 1 spray DAILY NASAL Last administered on 01/15/17 09:30; Admin Dose 1 SPRAY; Start 01/05/17 at 11:00 Fulvestrant (Faslodex) 500 mg Q28D IM ; Start 01/29/17 at 09:00 Insulin Glargine (Lantus) 18 unit DAILY SC Last administered on 01/15/17 09:49 ; Admin Dose 18 UNIT; Start 01/05/17 at 10:30 Loratadine (Claritin) 10 mg DAILY PO Last administered on 01/15/17 09:14; Admin Dose 10 MG; Start 01/05/17 at 11:00 Magnesium Hydroxide (Milk Of Mag) 30 ml BID PRN PO CONSTIPATION; Start at 10:30 Magnesium Oxide (Mag-Ox 400) 400 mg DAILY PO Last administered on 01/15/17 09: 14; Admin Dose 400 MG; Start 01/05/17 at 10:30 Mirtazapine (Remeron) 15 mg HS PO Last administered on 01/14/17 20:50; Admin Dose 15 MG; Start 01/05/17 at 21:00 Nitroglycerin (Nitroglycerin 2% Oint) 0.5 inch Q6 PRN TD CHEST PAIN; Start 03/13 at 10:30 Ondansetron HCl (Zofran Inj) 4 mg Q6H PRN IV NAUSEA Last administered on 15:55; Admin Dose 4 MG; Start 01/05/17 at 10:30 Sertraline HCl (Zoloft) 75 mg DAILY PO Last administered on 01/15/17 09:14; Admin Dose 75 MG; Start 01/05/17 at 10:30 Sildenafil Citrate (Revatio) 20 mg TID PO Last administered on 01/15/17 09:30 ; Admin Dose 20 MG; Start 01/05/17 at 13:00 Tacrolimus (Prograf) 2 mg QPM PO Last administered on 01/14/17 20:51; Admin Dose 2 MG; Start 01/05/17 at 21:00 Pantoprazole (Protonix Tab) 40 mg DAILY@06 PO Last administered on 01/15/17 05 :08; Admin Dose 40 MG; Start 01/06/17 at 06:00 Senna (Senokot) 1 tab HS PO Last administered on 01/14/17 20:51; Admin Dose 1 TAB; Start 01/05/17 at 21:00 Prednisone (Prednisone) 5 mg DAILY PO Last administered on 01/15/17 09:14; Admin Dose 5 MG; Start 01/05/17 at 12:00 Prednisone (Prednisone) 3 mg DAILY PO Last administered on 01/15/17 09:14; Admin Dose 3 MG; Start 01/05/17 at 12:00 Miscellaneous Information 1 ea NOTE XX ; Start 01/05/17 at 11:00 Glucose (Glutose) 15 gm Q15M PRN PO DECREASED GLUCOSE; Start 01/05/17 at 11:00 Glucose (Glutose) 22.5 gm Q15M PRN PO DECREASED GLUCOSE; Start 01/05/17 at 11: 00 Dextrose (D50w Syringe) 25 ml Q15M PRN IV DECREASED GLUCOSE Last administered on 01/09/17 04:45; Admin Dose 25 ML; Start 01/05/17 at 11:00 Dextrose (D50w Syringe) 50 ml Q15M PRN IV DECREASED GLUCOSE Last administered on 01/08/17 21:33; Admin Dose 50 ML; Start 01/05/17 at 11:00 Glucagon (Glucagen) 1 mg Q15M PRN IM DECREASED GLUCOSE; Start 01/05/17 at 11:00 Glucose (Glutose) 15 gm Q15M PRN BUCCAL DECREASED GLUCOSE; Start 01/05/17 at 11 :00 Oxcarbazepine (Trileptal) 600 mg BID PO Last administered on 01/15/17 09:13; Admin Dose 600 MG; Start 01/05/17 at 12:00 Insulin Aspart NOVOLOG *MILD* ALGORI... Q4 SC Last administered on 01/14/17 17 :38; Admin Dose 2 UNIT; Start 01/05/17 at 13:00 Fentanyl 100 ml @ 2.5 mls/hr TITRATE IV Last administered on 01/07/17 02:25; Admin Dose 7.5 MLS/HR; Start 01/06/17 at 09:30 Norepinephrine/ Dextrose (Levophed/D5W) 500 ml @ 0 mls/hr TITRATE IV ; Start 04/12 at 13:30 Bumetanide 1 mg 1 mg BID IV Last administered on 01/13/17 21:06; Admin Dose 1 MG; Start 01/08/17 at 09:00; Status Future Hold Caspofungin 50 mg/ Sodium Chloride 250 ml @ 250 mls/hr Q24H IVPB Last administered on 01/14/17 15:18; Admin Dose 250 MLS/HR; Start 01/09/17 at 15:00 Propofol (Diprivan) 100 ml @ 2.19 mls/hr Q12H IV Last administered on 17:24; Admin Dose 4.38 MLS/HR; Start 01/08/17 at 16:00 Metoprolol Tartrate (Lopressor) 25 mg BID PO Last administered on 01/15/17 09: 13; Admin Dose 25 MG; Start 01/12/17 at 21:00 Miscellaneous Information FULVESTRANT 250 MG/5 ML SYG: PLE... Q8H XX ; Start 01/26/17 at 09:00 Sodium Chloride (NS) 1,000 ml @ 75 mls/hr [id number] IV Last administered on 01/15 09:36; Admin Dose 75 MLS/HR; Start 01/15/17 at 08:00 Assessment/Plan Chief Complaint/Hosp Course IMPRESSION: 1. Hypoxemic respiratory failure. Status post thoracentesis. Failed multiple CPAP weaning trials will need tracheostomy. Discuss with primary care team 2. Possible altered mental status secondary to opioids. Significant anxiety component. 3. History of renal transplant. Renal insufficiency. PLAN: 1. May require tracheostomy recommend family conference. 2. Decrease sedation as tolerated. 3. Continue ID recommendations 4. Renal recommendations. 5. DVT and GI prophylaxis. Critical care time 40 minutes. Problems: LESA SAMUELS MD, [facility] Jan 15, 2017 11:28
[2017-01-15] MEDS: ONDANSETRON 4 MG INJ IV PRN (11:29)
[2017-01-15 11:31] LABS: Allen Test ACCEPTAB; Arterial Base Excess -4.7 mmol/L (-3.0-3); Arterial COHb 0.3 % (0.0-3.0); Arterial Fraction of Oxyhgb 98.7 % (93.0-99.0); Arterial HCO3 21.9 mmol/L (22.0-26.0); Arterial MetHb 0.4 % (0.0-1.5); Arterial Total Hemglobin 9.7 g/dl (12.0-18.0); Blood Gas PS 10; MODE VENT - CPAP
[2017-01-15] MEDS: BUDESONIDE (NEB) 0.25 MG/2 ML AMP NEB SCH ×2 (11:40→20:30)
[2017-01-15] MEDS: DEXTROSE 5%-0.9% NACL 1,000 ML IV SCH (13:41)
[2017-01-15] MEDS: PROPOFOL 100 ML IV SCH ×2 (14:35→16:00)
--- NOTE | 2017-01-15 14:54 | RADRPT ---
PROCEDURE: XR Abdomen. CLINICAL INDICATION: Nausea and vomiting. TECHNIQUE: AP supine abdomen x-ray. COMPARISON: None. FINDINGS: There is a nasogastric tube with the tip in the stomach and a Dela Cruz catheter in the bladder. The bowel gas pattern is normal with no evidence of obstruction. There are no abnormal calcifications overlying the urinary tracts. There are degenerative changes of the spine. IMPRESSION: 1. Nasogastric tube and Dela Cruz catheter noted. 2. No evidence of obstruction. 3. Degenerative changes of the spine. RPTAT: QQ .Jarvis Block MD, MD Date Time Electronically viewed and signed by .Jarvis Block MD, MD on 01/15/2017 14:53 .R/
--- NOTE | 2017-01-15 17:06 | PN ---
DATE: 01/15/2017 SUBJECTIVE DATA: No acute changes overnight. Patient is intubated, looks comfortable, afebrile. VITAL SIGNS: Temperature 98.5, pulse 100, respirations 21, blood pressure 142/56, saturation 96 on 30 FiO2. LABORATORY AND DIAGNOSTIC DATA: WBC 7.7, H and H 7.5 and 22.9, platelets 230,000, neutrophils 74.4. BUN 92, creatinine 3.10. INDWELLINGS: Endotracheal tube, NG tube, Dela Cruz catheter, right femoral triple lumen catheter. PHYSICAL EXAMINATION: GENERAL: This is a fragile, chronically ill-appearing elderly woman who is lying comfortably in bed. HEENT: Head atraumatic, normocephalic. Sclerae anicteric. Buccal mucosa dry. NECK: Supple. Trachea midline. CHEST: Rise symmetrical. Breath sounds diminished at the bases. HEART: S1, S2. ABDOMEN: Soft, bowel sounds present. EXTREMITIES: Without cyanosis, with trace edema. ASSESSMENT: 1. Sepsis status post shock. 2. Resolving pneumonia. 3. Acute respiratory failure. 4. Acute renal failure, on chronic kidney disease. 5. Diabetes. 6. History of kidney transplant, on immunosuppressive therapy. 7. History of metastatic breast cancer. PLAN: Patient is stable. Vancomycin was discontinued two days ago by our service but for some reason was given today again. We will talk to Pharmacy and make sure it is discontinued. We will discontinue all other antibiotics and observe her. Repeat cultures p.r.n. Dictated By: Artis Castañeda NP /berkley/rhonda /Document#: [id number]
[2017-01-15] MEDS: MIRTAZAPINE 15 MG TAB PO SCH (21:47)
[2017-01-15] MEDS: SENNA TAB PO SCH (21:47)
--- NOTE | 2017-01-15 22:22 | CONS ---
Date/Time of Note Date/Time of Note DATE: 01/15/17 TIME: 22:21 Assessment/Plan Assessment/Plan Chief Complaint/Hosp Course History of breast cancer with lung metastasis. The patient is on medical management. cont Faslodex as outpt Anemia. Monitor hemoglobin and hematocrit levels. [employer]UK[employer]YT[employer] s/p cardiopulmonary arrest: Most likely due to pulmonary arrest P afib: currently in NSR History of renal failure status post renal transplant Acute on chronic hypoxemic hypercapnic respiratory failure status post tracheostomy currently on the vent POST THORACENTESIS CYTOLOGY- neg Shock: currently blood pressure has improved Chronic obstructive pulmonary disease exacerbation. Congestive heart failure exacerbation. Hypothyroidism. Diabetes. Continue current insulin regimen. Pulmonary hypertension. Depression. Problems: Consultation Date/Type/Reason Admit Date/Time Jan 05, 2017 at 00:15 Initial Consult Date 01/05/17 Type of Consultation: [facility] Referring Provider: SUSAN SIMENTAL DO 24 HR Interval Summary Free Text/Dictation all noted Patient failed CPAP trial again today. Exam/Review of Systems Vital Signs Vitals Vital Signs Date Time Temp Pulse Resp B/P Pulse Ox O2 Delivery O2 Flow Rate FiO2 01/15/17 21:43 105 14 98 30 01/15/17 20:00 98.4 Mechanical Ventilator 01/15/17 18:30 135/63 Intake and Output 01/14/17 01/14/17 01/15/17 15:00 23:00 07:00 Intake Total 605.04 ml 725.04 ml 313.27 ml Output Total 80 ml 145 ml 85 ml Balance 525.04 ml 580.04 ml 228.27 ml Exam HEENT: Head is normocephalic. NECK: Supple. HEART: Regular rate. LUNGS: Show diminished breath sounds at the base. ABDOMEN: Soft, nontender to palpation. No rebound or guarding. EXTREMITIES: Negative for clubbing, cyanosis. No edema. DERMATOLOGIC: Clean. No rashes. MUSCULOSKELETAL: No joint effusion. NEUROLOGIC: No change in exam. + SCROTAL EDEMA NO NEW PETECHIA OR HEMATOMA Results Result Diagram: 01/15/17 0528 01/15/1728 Results 24 hrs Laboratory Tests Test 01/15/17 05:13 01/15/17 05:28 01/15/17 09:43 01/15/17 11:08 Bedside Glucose 102 141 White Blood Count 7.7 Red Blood Count 2.53 L Hemoglobin 7.5 L Hematocrit 22.9 L Mean Corpuscular Volume 90.5 Mean Corpuscular Hemoglobin 29.6 Mean Corpuscular Hemoglobin Concent 32.8 Red Cell Distribution Width 15.1 H Platelet Count 230 Mean Platelet Volume 10.7 H Neutrophils % 74.4 Lymphocytes % 10.0 L Monocytes % 6.7 Eosinophils % 3.9 Basophils % 0.1 Nucleated Red Blood Cells % 0.0 Neutrophils # 5.8 Lymphocytes # 0.8 Monocytes # 0.5 Eosinophils # 0.3 Basophils # 0.0 Nucleated Red Blood Cells # 0.0 Sodium Level 126 L Potassium Level 4.0 Chloride Level 94 L Carbon Dioxide Level 24 Anion Gap 12 Blood Urea Nitrogen 92 H Creatinine 3.10 H Glucose Level 85 # Calcium Level 8.8 Phosphorus Level 4.1 Magnesium Level 2.4 Blood Gas Specimen Source Blood arterial Arterial Blood Date Drawn 01/15/2017 11:25:08 AM Arterial Blood pH (Temp corrected) 7.281 *L Arterial Blood pCO2 (Temp correct) 47.6 H Arterial Blood pO2 (Temp corrected) 308.7 H Arterial Blood HCO3 21.9 L Arterial Blood Base Excess -4.7 L Arterial Blood Oxygen Saturation 99.4 Rey Test ACCEPTAB Arterial Blood Gas Puncture Site Left Radial Arterial Blood Carboxyhemoglobin 0.3 Arterial Blood Methemoglobin 0.4 Oxyhemoglobin Percent 98.7 Total Hemoglobin 9.7 L Blood Gas Temperature 37.0 Blood Gas Actual Respiration Rate 30 Blood Gas Modality VENT - CPAP FiO2 30.0 Blood Gas Low PEEP Setting 5.0 Blood Gas Pressure Support 10 Blood Gas Critical Value Read Back M ALEKSANDRA RN Blood Gas Notified Whom [place] Blood Gas Notified Time 01/15/2017 11:31:02 AM Test 01/15/17 13:34 01/15/17 17:19 01/15/17 21:32 Bedside Glucose 208 192 156 Medications Medications Current Medications Naloxone HCl (Narcan) 0.4 mg Q4 PRN IV SEDATION; Start 01/05/17 at 01:30 Acetaminophen (Tylenol Tab) 650 mg Q6H PRN PO PAIN AND OR ELEVATED TEMP; Start 01/05/17 at 10:30 Apixaban (Eliquis) 2.5 mg BID PO Last administered on 01/15/17t 21:47; Admin Dose 2.5 MG; Start 01/05/17 at 10:30 Ascorbic Acid (Vitamin C) 500 mg BID PO Last administered on 01/15/17 21:47; Admin Dose 500 MG; Start 01/05/17 at 10:30 Bisacodyl (Dulcolax Supp) 10 mg DAILY [place] Last administered on 01/15/17 09:14; Admin Dose 10 MG; Start 01/06/17 at 09:00 Budesonide (Pulmicort (Neb)) 0.25 mg BID NEB Last administered on 01/15/17 20: 30; Admin Dose 0.25 MG; Start 01/05/17 at 10:30 Docusate Sodium (Colace) 100 mg BID PO Last administered on 01/15/17 21:46; Admin Dose 100 MG; Start 01/05/17 at 10:30 Fluticasone Propionate (Flonase 0.05% Nasal) 1 spray DAILY NASAL Last administered on 01/15/17 09:30; Admin Dose 1 SPRAY; Start 01/05/17 at 11:00 Fulvestrant (Faslodex) 500 mg Q28D IM ; Start 01/29/17 at 09:00 Insulin Glargine (Lantus) 18 unit DAILY SC Last administered on 01/15/17 09:49 ; Admin Dose 18 UNIT; Start 01/05/17 at 10:30 Loratadine (Claritin) 10 mg DAILY PO Last administered on 01/15/17 09:14; Admin Dose 10 MG; Start 01/05/17 at 11:00 Magnesium Hydroxide (Milk Of Mag) 30 ml BID PRN PO CONSTIPATION; Start at 10:30 Magnesium Oxide (Mag-Ox 400) 400 mg DAILY PO Last administered on 01/15/17 09: 14; Admin Dose 400 MG; Start 01/05/17 at 10:30 Mirtazapine (Remeron) 15 mg HS PO Last administered on 01/15/17 21:47; Admin Dose 15 MG; Start 01/05/17 at 21:00 Nitroglycerin (Nitroglycerin 2% Oint) 0.5 inch Q6 PRN TD CHEST PAIN; Start 03/13 at 10:30 Ondansetron HCl (Zofran Inj) 4 mg Q6H PRN IV NAUSEA Last administered on 11:29; Admin Dose 4 MG; Start 01/05/17 at 10:30 Sertraline HCl (Zoloft) 75 mg DAILY PO Last administered on 01/15/17 09:14; Admin Dose 75 MG; Start 01/05/17 at 10:30 Sildenafil Citrate (Revatio) 20 mg TID PO Last administered on 01/15/17 21:57 ; Admin Dose 20 MG; Start 01/05/17 at 13:00 Tacrolimus (Prograf) 2 mg QPM PO Last administered on 01/15/17 21:48; Admin Dose 2 MG; Start 01/05/17 at 21:00 Pantoprazole (Protonix Tab) 40 mg DAILY@06 PO Last administered on 01/15/17 05 :08; Admin Dose 40 MG; Start 01/06/17 at 06:00 Senna (Senokot) 1 tab HS PO Last administered on 01/15/17 21:47; Admin Dose 1 TAB; Start 01/05/17 at 21:00 Prednisone (Prednisone) 5 mg DAILY PO Last administered on 01/15/17 09:14; Admin Dose 5 MG; Start 01/05/17 at 12:00 Prednisone (Prednisone) 3 mg DAILY PO Last administered on 01/15/17 09:14; Admin Dose 3 MG; Start 01/05/17 at 12:00 Miscellaneous Information 1 ea NOTE XX ; Start 01/05/17 at 11:00 Glucose (Glutose) 15 gm Q15M PRN PO DECREASED GLUCOSE; Start 01/05/17 at 11:00 Glucose (Glutose) 22.5 gm Q15M PRN PO DECREASED GLUCOSE; Start 01/05/17 at 11: 00 Dextrose (D50w Syringe) 25 ml Q15M PRN IV DECREASED GLUCOSE Last administered on 01/09/17 04:45; Admin Dose 25 ML; Start 01/05/17 at 11:00 Dextrose (D50w Syringe) 50 ml Q15M PRN IV DECREASED GLUCOSE Last administered on 01/08/17 21:33; Admin Dose 50 ML; Start 01/05/17 at 11:00 Glucagon (Glucagen) 1 mg Q15M PRN IM DECREASED GLUCOSE; Start 01/05/17 at 11:00 Glucose (Glutose) 15 gm Q15M PRN BUCCAL DECREASED GLUCOSE; Start 01/05/17 at 11 :00 Oxcarbazepine (Trileptal) 600 mg BID PO Last administered on 01/15/17 21:47; Admin Dose 600 MG; Start 01/05/17 at 12:00 Insulin Aspart NOVOLOG *MILD* ALGORI... Q4 SC Last administered on 01/15/17 21 :37; Admin Dose 1 UNIT; Start 01/05/17 at 13:00 Fentanyl 100 ml @ 2.5 mls/hr TITRATE IV Last administered on 01/07/17 02:25; Admin Dose 7.5 MLS/HR; Start 01/06/17 at 09:30 Norepinephrine/ Dextrose (Levophed/D5W) 500 ml @ 0 mls/hr TITRATE IV ; Start 04/12 at 13:30 Bumetanide 1 mg 1 mg BID IV Last administered on 01/13/17 21:06; Admin Dose 1 MG; Start 01/08/17 at 09:00; Status Future Hold Propofol (Diprivan) 100 ml @ 2.19 mls/hr Q12H IV Last administered on 14:35; Admin Dose 4.38 MLS/HR; Start 01/08/17 at 16:00 Metoprolol Tartrate (Lopressor) 25 mg BID PO Last administered on 01/15/17 21: 47; Admin Dose 25 MG; Start 01/12/17 at 21:00 Miscellaneous Information FULVESTRANT 250 MG/5 ML SYG: PLE... Q8H XX ; Start 01/26/17 at 09:00 Dextrose/Sodium Chloride (D5-NS) 1,000 ml @ 75 mls/hr [id number] IV Last administered on 01/15/17 13:41; Admin Dose 75 MLS/HR; Start 01/15/17 at 13:30 SHANICE DAVENPORT MD Jan 15, 2017 22:22
[2017-01-16] VITALS (78 sets, daily range): BP systolic 110–176; BP diastolic 44–97; PULSE 59–112; RESP 12–30
[2017-01-16] MEDS: INSULIN ASPART [NOVOLOG] 3 ML PEN SC SCH ×6 (01:18→21:12)
[2017-01-16] MEDS: ALBUTEROL 18 GM INHALER INH SCH ×4 (02:00→19:21)
[2017-01-16] MEDS: IPRATROPIUM (HFA) 12.9 GM INHALER INH SCH ×4 (02:00→19:21)
[2017-01-16] MEDS: DEXTROSE 5%-0.9% NACL 1,000 ML IV SCH ×2 (02:59→16:55)
[2017-01-16] MEDS: PROPOFOL 100 ML IV SCH ×2 (04:20→19:35)
[2017-01-16] MEDS: PANTOPRAZOLE (EC) 40 MG TAB PO SCH (05:22)
[2017-01-16 06:45] LABS: ABNORMAL IP MESSAGE 1; BASOPHILS % 0.1 % (0.0-2.0); EOSINOPHILS # 0.3 10^3/ul (0.0-0.5); EOSINOPHILS % 1.9 % (0.0-7.0); HEMATOCRIT 25.9 % (37.0-47.0); HEMOGLOBIN 8.5 g/dl (12.0-16.0); LYMPHOCYTES # 0.5 10^3/ul (0.8-2.9); LYMPHOCYTES % 3.9 % (15.0-51.0); MEAN CORPUSCULAR HEMOGLOBIN 29.8 pg (29.0-33.0); MEAN CORPUSCULAR HGB CONC 32.8 g/dl (32.0-37.0); MEAN CORPUSCULAR VOLUME 90.9 fl (82.0-101.0); MEAN PLATELET VOLUME 10.6 fl (7.4-10.4); MONOCYTE # 0.5 10^3/ul (0.3-0.9); MONOCYTES % 3.8 % (0.0-11.0); NEUTROPHIL # 11.9 10^3/ul (1.6-7.5); PLATELET COUNT 319 10^3/UL (140-415); RED BLOOD COUNT 2.85 10^6/ul (4.20-5.40); RED CELL DISTRIBUTION WIDTH 15.2 % (11.5-14.5); WHITE BLOOD COUNT 13.7 10^3/ul (4.8-10.8)
[2017-01-16 06:48] LABS: POSITIVE DIFF @See below
[2017-01-16] MEDS: LEVOTHYROXINE 75 MCG TAB PO SCH (07:07)
[2017-01-16 07:15] LABS: CALCIUM 9.5 mg/dl (8.4-10.2); CREATININE 3.36 mg/dl (0.44-1.00); MAGNESIUM 2.3 mg/dl (1.7-2.5); POTASSIUM 4.3 mmol/L (3.5-5.1)
[2017-01-16] MEDS: INSULIN GLARGINE [LANtus] 3 ML PEN SC SCH (08:52)
[2017-01-16] MEDS: TACROLIMUS 1 MG CAP PO SCH ×2 (09:07→21:07)
[2017-01-16] MEDS: ASCORBIC ACID 500 MG TAB PO SCH ×2 (09:08→21:08)
[2017-01-16] MEDS: DOCUSATE SODIUM 100 MG CAP PO SCH ×2 (09:08→21:05)
[2017-01-16] MEDS: SERTRALINE 50 MG TAB PO SCH (09:08)
[2017-01-16] MEDS: predniSONE 5 MG TAB PO SCH (09:08)
[2017-01-16] MEDS: LORATADINE 10 MG TAB PO SCH (09:08)
[2017-01-16] MEDS: MAGNESIUM OXIDE 400 MG TAB PO SCH (09:08)
[2017-01-16] MEDS: predniSONE 1 MG TAB PO SCH (09:08)
[2017-01-16] MEDS: APIXABAN 5 MG TABLET PO SCH ×2 (09:09→21:05)
[2017-01-16] MEDS: BISACODYL 10 MG SUPP PR SCH (09:09)
[2017-01-16] MEDS: OXCARBAZEPINE 300 MG TAB PO SCH ×2 (09:09→21:05)
[2017-01-16] MEDS: ONDANSETRON 4 MG INJ IV PRN (09:09)
[2017-01-16] MEDS: METOPROLOL 25 MG TAB PO SCH ×2 (09:09→21:08)
[2017-01-16] MEDS: FLUTICASONE 0.05% 16 GM NAS SPRAY NASAL SCH (09:10)
[2017-01-16] MEDS: FAMOTIDINE 20 MG INJ IV SCH (09:12)
[2017-01-16] MEDS: SILDENAFIL 20 MG TAB PO SCH ×3 (09:13→21:14)
[2017-01-16] MEDS: BALSAM PERU/CASTOR OIL 60 GM TUBE TOP SCH (09:35)
[2017-01-16] MEDS: BUDESONIDE (NEB) 0.25 MG/2 ML AMP NEB SCH ×2 (09:49→20:24)
--- NOTE | 2017-01-16 09:54 | PN ---
DATE: 01/16/2017 SUBJECTIVE DATA: Patient remains critically ill, on full ventilatory support. Unable to be weaned off. I spoke yesterday with the patient's brother, informing him that the patient will require trach and PEG placement. The patient's brother agreed. I additionally informed them that the patient's renal function has continued to decline. I informed the patient's renal function continues to decline and that she may require dialysis. The patient's brother understood, no other acute events noted overnight. No hemoptysis, hematemesis, hematochezia. OBJECTIVE DATA: VITAL SIGNS: Blood pressure is 134/60, respirations 28, pulse 93, temperature 98.9. HEENT: Head is normocephalic. NECK: Supple. HEART: Regular rate. LUNGS: Diminished breath sounds at the base. ABDOMEN: Soft. Nontender to palpation. No rebound or guarding. EXTREMITIES: Negative for clubbing, cyanosis. No edema. DERMATOLOGIC: Clean. No rashes. MUSCULOSKELETAL: No joint effusion. NEUROLOGIC: No change in exam. MEDICATIONS: The patient's medications have been reviewed. LABORATORY AND DIAGNOSTIC DATA: Sodium 123, potassium 4.3, chloride 93, BUN 95. Creatinine 3.36. White count 13.7, hemoglobin 8.5, hematocrit 25.9, platelet count is 319. ASSESSMENT AND PLAN: 1. 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 Etiology of acute kidney injury is likely secondary to acute tubular necrosis due to septic shock, nephrotoxicity, ischemic hypoperfusion. The possibility of an interstitial nephritis is also a consideration as urine was evaluated by myself under microscopy, which showed clumps of white blood cells and monomorphic red blood cells. Possible contributing factors may be medications, proton pump inhibitor. The possibility of acute rejection cannot definitively be ruled out, but unlikely given clinical presentation. Additionally, given the patient's severe immunocompromised state and septic shock, the patient would not be a candidate for aggressive immunosuppressive therapy with pulse steroids. If renal function continues to further decline, would attempt a possible allograft biopsy, if the patient is clinically stable. Although this may be difficult as the patient is ventilator dependent. Would otherwise continue current treatment. Supportive care. Renally dose medications. Follow up Prograf level. 2. Acute congestive heart failure exacerbation. The patient's diuretic therapy on hold. Currently on IV fluids. Continue. 3. Hyponatremia. Secondary to acute kidney injury. Continue to limit free water intake. 4. Paroxysmal atrial fibrillation. Currently sinus rhythm. 5. Sepsis ,status post shock secondary to pneumonia. The patient is status post antifungal therapy. Antibiotic therapy. Continue to monitor. 6. History of end-stage renal disease. Status post renal transplant, chronic allograft failure. The patient is currently acute kidney injury stated above. Continue to monitor. 7. Hypothyroidism. Continue Synthroid. 8. Anemia. Monitor H and H levels. 9. History of breast cancer. 10. Diabetes. Continue current insulin regimen. 11. Pulmonary hypertension. Continue medical management. 12. Anxiety and depression. 13. Dysphagia. Continue tube feeding. 14. Gastrointestinal and deep venous thrombosis prophylaxis. 15. Hematuria etiology is likely secondary to Dela Cruz trauma in conjunction with anticoagulation. We will however get a renal ultrasound of the bladder and allograft kidney. Please note, I spent over 35 minutes of critical care time with this patient. Dictated By: Cameron Rosenthal DO /berkley/johnson /Document#: [id number]
[2017-01-16] MEDS ORDERED: FUROSEMIDE 40 MG INJ IV ONE (11:00)
--- NOTE | 2017-01-16 11:27 | RADRPT ---
PROCEDURE: Retroperitoneal US. CLINICAL INDICATION: Renal insufficiency TECHNIQUE: Multiple sonographic images of the kidneys and retroperitoneum were obtained. The imag es were reviewed on a PACS workstation. COMPARISON: No prior studies are available for comparison. FINDINGS: There is a right lower quadrant transplanted kidney measuring 13.6 cm in length. There is increased echogenicity of the transplanted kidney. There is normal cortical thickness. There is Doppler flow i dentified in the transplanted kidney. However Doppler measurements were not obtained. No kidney stones are visualized. There is no evidence for hydronephrosis. The [place] kidneys were not visualized. The urinary bladder is decompressed by a Dela Cruz catheter. There is a small amount of ascites. There is a left pleural effusion noted. RPTAT: AA IMPRESSION: Increased echogenicity of the right lower quadrant transplanted kidney. No evidence of hydronephrosi s. Doppler measurements were not obtained. Small amount of ascites. Left pleural effusion. [place] kidneys were not visualized. .Omi Darden MD, MD Date Time Electronically viewed and signed by .Omi Darden MD, on 01/16/2017 11:27 .S/
--- NOTE | 2017-01-16 13:40 | PN ---
DATE: 01/16/2017 SUBJECTIVE DATA: No events overnight. The patient remains intubated. Opens eyes, looks comfortable. No fevers. OBJECTIVE DATA: VITAL SIGNS: Temperature 97.9, pulse 60, respirations 16, blood pressure 110/44, and saturation 99 on 30 FiO2. LABORATORY AND DIAGNOSTIC DATA: WBC 13.7, H and H 8.5 and 25.9, platelets 319, neutrophils 87, BUN 95, and creatinine 3.36. DIAGNOSTICS: X-ray of the abdomen from yesterday revealed no evidence of obstruction. Renal ultrasound this morning showed no evidence of hydronephrosis. Increased echogenicity of the right lower quadrant transplanted kidney. Small amount of ascites, left pleural effusions. INDWELLINGS: Endotracheal tube, NG tube, Dela Cruz catheter, and right femoral triple lumen catheter. PHYSICAL EXAMINATION: GENERAL: This is a fragile, chronically ill-appearing, elderly woman, who is in no distress. HEENT: Head atraumatic, normocephalic. Sclerae anicteric. Buccal mucosa dry. NECK: Supple. CHEST: Rise symmetrical. Breath sounds diminished at the bases. HEART: S1, S2. ABDOMEN: Soft, bowel sounds present. EXTREMITIES: Without cyanosis, trace edema. ASSESSMENT: 1. Status post septic shock. 2. Acute respiratory failure. 3. Acute on chronic kidney disease. 4. Diabetes. 5. History of kidney transplant, on immunosuppressive therapy. 6. History of metastatic breast cancer. 7. Status post pneumonia and urinary tract infection. PLAN: 1. The patient is hemodynamically stable. 2. She is off antibiotics. 3. Continue present care. 4. Possible trach placement. Dictated By: Artis Castañeda NP /[email or web address] /Document#: [id number]
[2017-01-16] MEDS ORDERED: VANCOMYCIN 750 MG in SOD CHLORIDE 0.9% 150 ML IVPB SCH (14:00)
[2017-01-16 14:21] LABS: ADD UMIC YES; UR ASCORBIC ACID 20 mg/dL (NEGATIVE); UR BILIRUBIN (Dip) NEGATIVE (NEGATIVE); UR BLOOD (Dip) NEGATIVE (NEGATIVE); UR BUDDING YEAST MANY /HPF (NONE SEEN); UR CLARITY CLOUDY (CLEAR); UR COLOR YELLOW (YELLOW); UR GLUCOSE (Dip) NEGATIVE (NEGATIVE); UR KETONES (Dip) TRACE mg/dL (NEGATIVE); UR LEUKOCYTE ESTERASE (Dip) TRACE Leu/ul (NEGATIVE); UR MUCUS FEW /HPF (NONE SEEN); UR NITRITE (Dip) NEGATIVE (NEGATIVE); UR RBC 18 /HPF (0-5); UR SPECIFIC GRAVITY (Dip) 1.017 (1.003-1.030); UR SQUAMOUS EPITHELIAL CELL FEW /HPF (FEW); UR TOTAL PROTEIN (Dip) 2+ mg/dl (NEGATIVE); UR UROBILINOGEN (Dip) NEGATIVE (NEGATIVE)
[2017-01-16 14:23] LABS: UR BACTERIA FEW /HPF (NONE SEEN)
[2017-01-16 14:53] LABS: CALCIUM 8.7 mg/dl (8.4-10.2); CREATININE 3.31 mg/dl (0.44-1.00); POTASSIUM 4.4 mmol/L (3.5-5.1)
--- NOTE | 2017-01-16 16:10 | CONS ---
Date/Time of Note Date/Time of Note DATE: 01/16/17 TIME: 16:08 Consult Date/Type/Reason Admit Date/Time Jan 05, 2017 at 00:15 Initial Consult Date 01/05/17 Type of Consultation: Pulm Ordering Provider: SUSAN SIMENTAL DO Subjective No new events, continues mechanical ventilation, moderate secretions. Feeding as tolerated. Neurologically unchanged. Objective Vital Signs Date Time Temp Pulse Resp B/P Pulse Ox O2 Delivery O2 Flow Rate FiO2 01/16/17 15:55 65 13 100 30 01/16/17 14:30 165/80 01/16/17 07:19 97.9 01/15/17 20:00 Mechanical Ventilator Intake and Output 01/15/17 01/15/17 01/16/17 15:00 23:00 07:00 Intake Total 559.272 ml 642.4 ml 652.4 ml Output Total 85 ml 58 ml 40 ml Balance 474.272 ml 584.4 ml 612.4 ml Exam PHYSICAL EXAMINATION GENERAL: Elderly lady on mechanical ventilation opens eyes but does not follow commands. VITAL SIGNS: see below. HEENT: Pupils equal, round, and reactive to light. CARDIAC: S1, S2, 1/6 systolic ejection murmur CHEST: Diminished air entry bilaterally. ABDOMEN: Mildly distended. Bowel sounds present no guarding or rebound EXTREMITIES: No cyanosis, clubbing edema +1 NEUROLOGIC: Generalized weakness Results/Medications Result Diagram: 01/16/17 0505 01/16/17 1355 Results 24 hrs Laboratory Tests Test 01/15/17 17:19 01/15/17 21:32 01/16/17 01:07 01/16/17 05:05 Bedside Glucose 192 156 166 White Blood Count 13.7 #H Red Blood Count 2.85 L Hemoglobin 8.5 L Hematocrit 25.9 L Mean Corpuscular Volume 90.9 Mean Corpuscular Hemoglobin 29.8 Mean Corpuscular Hemoglobin Concent 32.8 Red Cell Distribution Width 15.2 H Platelet Count 319 # Mean Platelet Volume 10.6 H Neutrophils % 87.0 H Lymphocytes % 3.9 L Monocytes % 3.8 Eosinophils % 1.9 Basophils % 0.1 Nucleated Red Blood Cells % 0.0 Neutrophils # 11.9 H Lymphocytes # 0.5 L Monocytes # 0.5 Eosinophils # 0.3 Basophils # 0.0 Nucleated Red Blood Cells # 0.0 Sodium Level 123 L Potassium Level 4.3 Chloride Level 93 L Carbon Dioxide Level 23 Anion Gap 11 Blood Urea Nitrogen 95 H Creatinine 3.36 H Glucose Level 169 Calcium Level 9.5 Phosphorus Level 4.0 Magnesium Level 2.3 Test 01/16/17 05:19 01/16/17 08:48 01/16/17 09:45 01/16/17 12:48 Bedside Glucose 201 215 188 Urine Color YELLOW Urine Clarity CLOUDY A Urine pH 5.0 Urine Specific [place] 1.017 Urine Ketones TRACE A Urine Nitrite NEGATIVE Urine Bilirubin NEGATIVE Urine Urobilinogen NEGATIVE Urine Leukocyte Esterase TRACE A Urine Microscopic RBC 18 H Urine Microscopic WBC 47 H Urine Squamous Epithelial Cells FEW Urine Bacteria FEW A Urine Mucus FEW A Urine Yeast (Budding) MANY A Urine Eosinophils % 0.0 Urine Hemoglobin NEGATIVE Urine Glucose NEGATIVE Urine Total Protein 2+ H Test 01/16/17 13:55 Sodium Level 124 L Potassium Level 4.4 Chloride Level 94 L Carbon Dioxide Level 21 Anion Gap 13 Blood Urea Nitrogen 96 H Creatinine 3.31 H Glucose Level 173 Calcium Level 8.7 Medications Current Medications Naloxone HCl (Narcan) 0.4 mg Q4 PRN IV SEDATION; Start 01/05/17 at 01:30 Acetaminophen (Tylenol Tab) 650 mg Q6H PRN PO PAIN AND OR ELEVATED TEMP; Start 01/05/17 at 10:30 Apixaban (Eliquis) 2.5 mg BID PO Last administered on 01/16/17 09:09; Admin Dose 2.5 MG; Start 01/05/17 at 10:30 Ascorbic Acid (Vitamin C) 500 mg BID PO Last administered on 01/16/17 09:08; Admin Dose 500 MG; Start 01/05/17 at 10:30 Bisacodyl (Dulcolax Supp) [address] Last administered on 01/16/17 09:09; Admin Dose 10 MG; Start 01/06/17 at 09:00 Budesonide (Pulmicort (Neb)) 0.25 mg BID NEB Last administered on 01/16/17 09: 49; Admin Dose 0.25 MG; Start 01/05/17 at 10:30 Docusate Sodium (Colace) 100 mg BID PO Last administered on 01/16/17 09:08; Admin Dose 100 MG; Start 01/05/17 at 10:30 Fluticasone Propionate (Flonase 0.05% Nasal) 1 spray DAILY NASAL Last administered on 01/16/17 09:10; Admin Dose 1 SPRAY; Start 01/05/17 at 11:00 Fulvestrant (Faslodex) 500 mg Q28D IM ; Start 01/29/17 at 09:00 Insulin Glargine (Lantus) 18 unit DAILY SC Last administered on 01/16/17 08:52 ; Admin Dose 18 UNIT; Start 01/05/17 at 10:30 Loratadine (Claritin) 10 mg DAILY PO Last administered on 01/16/17 09:08; Admin Dose 10 MG; Start 01/05/17 at 11:00 Magnesium Hydroxide (Milk Of Mag) 30 ml BID PRN PO CONSTIPATION Last administered on 01/16/17 09:09; Admin Dose 30 ML; Start 01/05/17 at 10:30 Magnesium Oxide (Mag-Ox 400) 400 mg DAILY PO Last administered on 01/16/17 09: 08; Admin Dose 400 MG; Start 01/05/17 at 10:30 Mirtazapine (Remeron) 15 mg HS PO Last administered on 01/15/17 21:47; Admin Dose 15 MG; Start 01/05/17 at 21:00 Nitroglycerin (Nitroglycerin 2% Oint) 0.5 inch Q6 PRN TD CHEST PAIN; Start 03/13 at 10:30 Ondansetron HCl (Zofran Inj) 4 mg Q6H PRN IV NAUSEA Last administered on 09:09; Admin Dose 4 MG; Start 01/05/17 at 10:30 Sertraline HCl (Zoloft) 75 mg DAILY PO Last administered on 01/16/17 09:08; Admin Dose 75 MG; Start 01/05/17 at 10:30 Sildenafil Citrate (Revatio) 20 mg TID PO Last administered on 01/16/17 12:50 ; Admin Dose 20 MG; Start 01/05/17 at 13:00 Tacrolimus (Prograf) 2 mg QPM PO Last administered on 01/15/17 21:48; Admin Dose 2 MG; Start 01/05/17 at 21:00 Senna (Senokot) 1 tab HS PO Last administered on 01/15/17 21:47; Admin Dose 1 TAB; Start 01/05/17 at 21:00 Prednisone (Prednisone) 5 mg DAILY PO Last administered on 01/16/17 09:08; Admin Dose 5 MG; Start 01/05/17 at 12:00 Prednisone (Prednisone) 3 mg DAILY PO Last administered on 01/16/17 09:08; Admin Dose 3 MG; Start 01/05/17 at 12:00 Miscellaneous Information 1 ea NOTE XX ; Start 01/05/17 at 11:00 Glucose (Glutose) 15 gm Q15M PRN PO DECREASED GLUCOSE; Start 01/05/17 at 11:00 Glucose (Glutose) 22.5 gm Q15M PRN PO DECREASED GLUCOSE; Start 01/05/17 at 11: 00 Dextrose (D50w Syringe) 25 ml Q15M PRN IV DECREASED GLUCOSE Last administered on 01/09/17 04:45; Admin Dose 25 ML; Start 01/05/17 at 11:00 Dextrose (D50w Syringe) 50 ml Q15M PRN IV DECREASED GLUCOSE Last administered on 01/08/17 21:33; Admin Dose 50 ML; Start 01/05/17 at 11:00 Glucagon (Glucagen) 1 mg Q15M PRN IM DECREASED GLUCOSE; Start 01/05/17 at 11:00 Glucose (Glutose) 15 gm Q15M PRN BUCCAL DECREASED GLUCOSE; Start 01/05/17 at 11 :00 Oxcarbazepine (Trileptal) 600 mg BID PO Last administered on 01/16/17 09:09; Admin Dose 600 MG; Start 01/05/17 at 12:00 Insulin Aspart NOVOLOG *MILD* ALGORI... Q4 SC Last administered on 01/16/17 12 :52; Admin Dose 2 UNIT; Start 01/05/17 at 13:00 Fentanyl 100 ml @ 2.5 mls/hr TITRATE IV Last administered on 01/07/17 02:25; Admin Dose 7.5 MLS/HR; Start 01/06/17 at 09:30 Norepinephrine/ Dextrose (Levophed/D5W) 500 ml @ 0 mls/hr TITRATE IV ; Start 04/12 at 13:30 Bumetanide 1 mg 1 mg BID IV Last administered on 01/13/17 21:06; Admin Dose 1 MG; Start 01/08/17 at 09:00; Status Future Hold Propofol (Diprivan) 100 ml @ 2.19 mls/hr Q12H IV Last administered on 04:20; Admin Dose 5.256 MLS/HR; Start 01/08/17 at 16:00 Metoprolol Tartrate (Lopressor) 25 mg BID PO Last administered on 01/16/17 09: 09; Admin Dose 25 MG; Start 01/12/17 at 21:00 Miscellaneous Information FULVESTRANT 250 MG/5 ML SYG: PLE... Q8H XX ; Start 01/26/17 at 09:00 Dextrose/Sodium Chloride (D5-NS) 1,000 ml @ 75 mls/hr [id number] IV Last administered on 01/16/17 02:59; Admin Dose 75 MLS/HR; Start 01/15/17 at 13:30 Famotidine (Pepcid Iv) 20 mg DAILY IV Last administered on 01/16/17 09:12; Admin Dose 20 MG; Start 01/16/17 at 09:00 Assessment/Plan Chief Complaint/Hosp Course IMPRESSION: 1. Hypoxemic respiratory failure. Status post thoracentesis. Failed multiple CPAP weaning trials will need tracheostomy. 2. Possible altered mental status secondary to opioids. Significant anxiety component. 3. History of renal transplant. Renal insufficiency. Hyponatremia. PLAN: 1. Will require tracheostomy recommend family conference. d/w PMD. 2. Decrease sedation as tolerated. 3. Continue ID recommendations 4. Renal recommendations. 5. DVT and GI prophylaxis. Critical care time 40 minutes. Prognosis guarded. Problems: LESA SAMUELS MD, [facility] Jan 16, 2017 16:10
--- NOTE | 2017-01-16 17:06 | CONS ---
Date/Time of Note Date/Time of Note DATE: 01/16/17 TIME: 17:04 Consult Date/Type/Reason Admit Date/Time Jan 05, 2017 at 00:15 Initial Consult Date 01/05/17 Type of Consultation: cardiology Ordering Provider: SUSAN SIMENTAL DO Subjective CARDIOLOGY FOLLOW UP NOTE: D/W Staff and rhythm was reviewed. pt has remained in Afib. HR has been stable mostly, with occasional tachycardia. pt still remains intubated on vent. pt was extubated on 01/07/17 but had to be re -intubated again the same night due to resp distress even on BIPAP. NO reports of any chest pain or pressure OBJECTIVE: General: intubated on vent. HEENT: NC/AT. pupils are equal. round. NECK: NO JVD. no stridor. CV:irregularly irregular. systolic murmur; no gallop or rubs. PULM: no wheezing, + mild rhonchi. GI: SOFT, NT, ND, no rebound or guarding Extremity: trace B/L LE edema. no clubbing. neuro: sedated now. Psych: unable to assess rectal: deferred : normal ECHO 12/16/16: Personally reviewed 1. Normal left ventricular systolic function. Normal left ventricular cavity size. Moderate concentric left ventricular hypertrophy. Ejection fraction is visually estimated at 65 %. Abnormal Diastolic Function. 2. There is moderate enlargement of left atrium. 3. Mild mitral leaflet calcification. Mild mitral annular calcification. Trace mitral regurgitation. 4. Aortic sclerosis without stenosis. Trace aortic valve regurgitation. 5. Normal appearance of the tricuspid valve. Estimated peak PA systolic pressure 38 mmHg. There is mild tricuspid regurgitation. Objective Vital Signs Date Time Temp Pulse Resp B/P Pulse Ox O2 Delivery O2 Flow Rate FiO2 01/16/17 15:55 65 13 100 30 01/16/17 14:30 165/80 01/16/17 07:19 97.9 01/15/17 20:00 Mechanical Ventilator Intake and Output 01/15/17 01/15/17 01/16/17 15:00 23:00 07:00 Intake Total 559.272 ml 642.4 ml 652.4 ml Output Total 85 ml 58 ml 40 ml Balance 474.272 ml 584.4 ml 612.4 ml Results/Medications Result Diagram: 01/16/17 0505 01/16/17 1355 Results 24 hrs Laboratory Tests Test 01/15/17 17:19 01/15/17 21:32 01/16/17 01:07 01/16/17 05:05 Bedside Glucose 192 156 166 White Blood Count 13.7 #H Red Blood Count 2.85 L Hemoglobin 8.5 L Hematocrit 25.9 L Mean Corpuscular Volume 90.9 Mean Corpuscular Hemoglobin 29.8 Mean Corpuscular Hemoglobin Concent 32.8 Red Cell Distribution Width 15.2 H Platelet Count 319 # Mean Platelet Volume 10.6 H Neutrophils % 87.0 H Lymphocytes % 3.9 L Monocytes % 3.8 Eosinophils % 1.9 Basophils % 0.1 Nucleated Red Blood Cells % 0.0 Neutrophils # 11.9 H Lymphocytes # 0.5 L Monocytes # 0.5 Eosinophils # 0.3 Basophils # 0.0 Nucleated Red Blood Cells # 0.0 Sodium Level 123 L Potassium Level 4.3 Chloride Level 93 L Carbon Dioxide Level 23 Anion Gap 11 Blood Urea Nitrogen 95 H Creatinine 3.36 H Glucose Level 169 Calcium Level 9.5 Phosphorus Level 4.0 Magnesium Level 2.3 Test 01/16/17 05:19 01/16/17 08:48 01/16/17 09:45 01/16/17 12:48 Bedside Glucose 201 215 188 Urine Color YELLOW Urine Clarity CLOUDY A Urine pH 5.0 Urine Specific [place] 1.017 Urine Ketones TRACE A Urine Nitrite NEGATIVE Urine Bilirubin NEGATIVE Urine Urobilinogen NEGATIVE Urine Leukocyte Esterase TRACE A Urine Microscopic RBC 18 H Urine Microscopic WBC 47 H Urine Squamous Epithelial Cells FEW Urine Bacteria FEW A Urine Mucus FEW A Urine Yeast (Budding) MANY A Urine Eosinophils % 0.0 Urine Hemoglobin NEGATIVE Urine Glucose NEGATIVE Urine Total Protein 2+ H Test 01/16/17 13:55 01/16/17 16:53 Sodium Level 124 L Potassium Level 4.4 Chloride Level 94 L Carbon Dioxide Level 21 Anion Gap 13 Blood Urea Nitrogen 96 H Creatinine 3.31 H Glucose Level 173 Calcium Level 8.7 Bedside Glucose 172 Medications Current Medications Naloxone HCl (Narcan) 0.4 mg Q4 PRN IV SEDATION; Start 01/05/17 at 01:30 Acetaminophen (Tylenol Tab) 650 mg Q6H PRN PO PAIN AND OR ELEVATED TEMP; Start 01/05/17 at 10:30 Apixaban (Eliquis) 2.5 mg BID PO Last administered on 01/16/17 09:09; Admin Dose 2.5 MG; Start 01/05/17 at 10:30 Ascorbic Acid (Vitamin C) 500 mg BID PO Last administered on 01/16/17 09:08; Admin Dose 500 MG; Start 01/05/17 at 10:30 Bisacodyl (Dulcolax Supp) 10 mg DAILY [place] Last administered on 01/16/17 09:09; Admin Dose 10 MG; Start 01/06/17 at 09:00 Budesonide (Pulmicort (Neb)) 0.25 mg BID NEB Last administered on 01/16/17 09: 49; Admin Dose 0.25 MG; Start 01/05/17 at 10:30 Docusate Sodium (Colace) 100 mg BID PO Last administered on 01/16/17 09:08; Admin Dose 100 MG; Start 01/05/17 at 10:30 Fluticasone Propionate (Flonase 0.05% Nasal) 1 spray DAILY NASAL Last administered on 01/16/17 09:10; Admin Dose 1 SPRAY; Start 01/05/17 at 11:00 Fulvestrant (Faslodex) 500 mg Q28D IM ; Start 01/29/17 at 09:00 Insulin Glargine (Lantus) 18 unit DAILY SC Last administered on 01/16/17 08:52 ; Admin Dose 18 UNIT; Start 01/05/17 at 10:30 Loratadine (Claritin) 10 mg DAILY PO Last administered on 01/16/17 09:08; Admin Dose 10 MG; Start 01/05/17 at 11:00 Magnesium Hydroxide (Milk Of Mag) 30 ml BID PRN PO CONSTIPATION Last administered on 01/16/17 09:09; Admin Dose 30 ML; Start 01/05/17 at 10:30 Magnesium Oxide (Mag-Ox 400) 400 mg DAILY PO Last administered on 01/16/17 09: 08; Admin Dose 400 MG; Start 01/05/17 at 10:30 Mirtazapine (Remeron) 15 mg HS PO Last administered on 01/15/17 21:47; Admin Dose 15 MG; Start 01/05/17 at 21:00 Nitroglycerin (Nitroglycerin 2% Oint) 0.5 inch Q6 PRN TD CHEST PAIN; Start 03/13 at 10:30 Ondansetron HCl (Zofran Inj) 4 mg Q6H PRN IV NAUSEA Last administered on 09:09; Admin Dose 4 MG; Start 01/05/17 at 10:30 Sertraline HCl (Zoloft) 75 mg DAILY PO Last administered on 01/16/17 09:08; Admin Dose 75 MG; Start 01/05/17 at 10:30 Sildenafil Citrate (Revatio) 20 mg TID PO Last administered on 01/16/17 12:50 ; Admin Dose 20 MG; Start 01/05/17 at 13:00 Tacrolimus (Prograf) 2 mg QPM PO Last administered on 01/15/17 21:48; Admin Dose 2 MG; Start 01/05/17 at 21:00 Senna (Senokot) 1 tab HS PO Last administered on 01/15/17 21:47; Admin Dose 1 TAB; Start 01/05/17 at 21:00 Prednisone (Prednisone) 5 mg DAILY PO Last administered on 01/16/17 09:08; Admin Dose 5 MG; Start 01/05/17 at 12:00 Prednisone (Prednisone) 3 mg DAILY PO Last administered on 01/16/17 09:08; Admin Dose 3 MG; Start 01/05/17 at 12:00 Miscellaneous Information 1 ea NOTE XX ; Start 01/05/17 at 11:00 Glucose (Glutose) 15 gm Q15M PRN PO DECREASED GLUCOSE; Start 01/05/17 at 11:00 Glucose (Glutose) 22.5 gm Q15M PRN PO DECREASED GLUCOSE; Start 01/05/17 at 11: 00 Dextrose (D50w Syringe) 25 ml Q15M PRN IV DECREASED GLUCOSE Last administered on 01/09/17 04:45; Admin Dose 25 ML; Start 01/05/17 at 11:00 Dextrose (D50w Syringe) 50 ml Q15M PRN IV DECREASED GLUCOSE Last administered on 01/08/17 21:33; Admin Dose 50 ML; Start 01/05/17 at 11:00 Glucagon (Glucagen) 1 mg Q15M PRN IM DECREASED GLUCOSE; Start 01/05/17 at 11:00 Glucose (Glutose) 15 gm Q15M PRN BUCCAL DECREASED GLUCOSE; Start 01/05/17 at 11 :00 Oxcarbazepine (Trileptal) 600 mg BID PO Last administered on 01/16/17 09:09; Admin Dose 600 MG; Start 01/05/17 at 12:00 Insulin Aspart NOVOLOG *MILD* ALGORI... Q4 SC Last administered on 01/16/17 12 :52; Admin Dose 2 UNIT; Start 01/05/17 at 13:00 Fentanyl 100 ml @ 2.5 mls/hr TITRATE IV Last administered on 01/07/17 02:25; Admin Dose 7.5 MLS/HR; Start 01/06/17 at 09:30 Norepinephrine/ Dextrose (Levophed/D5W) 500 ml @ 0 mls/hr TITRATE IV ; Start 04/12 at 13:30 Bumetanide 1 mg 1 mg BID IV Last administered on 01/13/17 21:06; Admin Dose 1 MG; Start 01/08/17 at 09:00; Status Future Hold Propofol (Diprivan) 100 ml @ 2.19 mls/hr Q12H IV Last administered on 04:20; Admin Dose 5.256 MLS/HR; Start 01/08/17 at 16:00 Metoprolol Tartrate (Lopressor) 25 mg BID PO Last administered on 01/16/17 09: 09; Admin Dose 25 MG; Start 01/12/17 at 21:00 Miscellaneous Information FULVESTRANT 250 MG/5 ML SYG: PLE... Q8H XX ; Start 01/26/17 at 09:00 Dextrose/Sodium Chloride (D5-NS) 1,000 ml @ 75 mls/hr [id number] IV Last administered on 01/16/17 02:59; Admin Dose 75 MLS/HR; Start 01/15/17 at 13:30 Famotidine (Pepcid Iv) 20 mg DAILY IV Last administered on 01/16/17 09:12; Admin Dose 20 MG; Start 01/16/17 at 09:00 Assessment/Plan Chief Complaint/Hosp Course Assessment: 1. s/p cardiopulmonary arrest: Most likely due to pulmonary arrest 2. P afib: 3. History of renal failure status post renal transplant: now with KATI on CKD 4. Acute on chronic hypoxemic hypercapnic respiratory failure status post reintubation: currently on the vent 5. Shock: resolved now. 6. ANEMIA 7. breast cancer 8. history of HTN: 9. anxiety 10. DM 11. Hypothyroidism: on synthroid. 12. pleural effusion : s/p thoracentesis Recommendations: cont eliquis as long as no signs of active bleeding and no surgery/ procedure is planned. may need to hold eliquis for 1-2 days if PEG/ Trach is being planned. vent support for now anti- rejection medications to be adjusted as per renal team cont DM control thyroid supplement betablocker as tolerated. correct lytes prn cont tele monitoring will give a dose of dig prn at very low dose. cont ICU care. Thank you for this referral I will continue to follow along with you. AUGUSTINA MALDONADO MD [facility] Problems: AUGUSTINA MALDONADO MD Jan 16, 2017 17:06
[2017-01-16] MEDS: SENNA TAB PO SCH (21:05)
[2017-01-16] MEDS: MIRTAZAPINE 15 MG TAB PO SCH (21:05)
--- NOTE | 2017-01-16 23:33 | CONS ---
Date/Time of Note Date/Time of Note DATE: 01/16/17 TIME: 23:33 Assessment/Plan Assessment/Plan Chief Complaint/Hosp Course History of breast cancer with lung metastasis. The patient is on medical management. on Faslodex as outpt Anemia. Monitor hemoglobin and hematocrit levels. LEUKOCYTOSIS [employer]ACTIVE MONITOR s/p cardiopulmonary arrest: Most likely due to pulmonary arrest P afib: currently in NSR History of renal failure status post renal transplant Acute on chronic hypoxemic hypercapnic respiratory failure status post tracheostomy currently on the vent POST THORACENTESIS CYTOLOGY- neg Shock: currently blood pressure has improved Chronic obstructive pulmonary disease exacerbation. Congestive heart failure exacerbation. Hypothyroidism. Diabetes. Continue current insulin regimen. Pulmonary hypertension. Depression. Problems: Consultation Date/Type/Reason Admit Date/Time Jan 05, 2017 at 00:15 Initial Consult Date 01/05/17 Type of Consultation: [facility] Referring Provider: SUSAN SIMENTAL DO 24 HR Interval Summary Free Text/Dictation ALL NOTED D/W RN Exam/Review of Systems Vital Signs Vitals Vital Signs Date Time Temp Pulse Resp B/P Pulse Ox O2 Delivery O2 Flow Rate FiO2 01/16/17 21:30 80 16 164/92 100 01/16/17 21:10 30 01/16/17 20:00 97.6 Mechanical Ventilator Intake and Output 01/15/17 01/15/17 01/16/17 15:00 23:00 07:00 Intake Total 559.272 ml 642.4 ml 652.4 ml Output Total 85 ml 58 ml 40 ml Balance 474.272 ml 584.4 ml 612.4 ml Exam HEENT: Head is normocephalic. NECK: Supple. HEART: Regular rate. LUNGS: Show diminished breath sounds base. Positive rhonchi. ABDOMEN: Soft, nontender to palpation. No rebound or guarding. EXTREMITIES: Negative for clubbing, cyanosis. No edema. DERMATOLOGIC: Clean. No rashes. MUSCULOSKELETAL: No joint effusion. NEUROLOGIC: No change in exam. Results Result Diagram: 01/16/17 0505 01/16/17 1355 Results 24 hrs Laboratory Tests Test 01/16/17 01:07 01/16/17 05:05 01/16/17 05:19 01/16/17 08:48 Bedside Glucose 166 201 215 White Blood Count 13.7 #H Red Blood Count 2.85 L Hemoglobin 8.5 L Hematocrit 25.9 L Mean Corpuscular Volume 90.9 Mean Corpuscular Hemoglobin 29.8 Mean Corpuscular Hemoglobin Concent 32.8 Red Cell Distribution Width 15.2 H Platelet Count 319 # Mean Platelet Volume 10.6 H Neutrophils % 87.0 H Lymphocytes % 3.9 L Monocytes % 3.8 Eosinophils % 1.9 Basophils % 0.1 Nucleated Red Blood Cells % 0.0 Neutrophils # 11.9 H Lymphocytes # 0.5 L Monocytes # 0.5 Eosinophils # 0.3 Basophils # 0.0 Nucleated Red Blood Cells # 0.0 Sodium Level 123 L Potassium Level 4.3 Chloride Level 93 L Carbon Dioxide Level 23 Anion Gap 11 Blood Urea Nitrogen 95 H Creatinine 3.36 H Glucose Level 169 Calcium Level 9.5 Phosphorus Level 4.0 Magnesium Level 2.3 Test 01/16/17 09:45 01/16/17 12:48 01/16/17 13:55 01/16/17 16:53 Urine Color YELLOW Urine Clarity CLOUDY A Urine pH 5.0 Urine Specific Arpin 1.017 Urine Ketones TRACE A Urine Nitrite NEGATIVE Urine Bilirubin NEGATIVE Urine Urobilinogen NEGATIVE Urine Leukocyte Esterase TRACE A Urine Microscopic RBC 18 H Urine Microscopic WBC 47 H Urine Squamous Epithelial Cells FEW Urine Bacteria FEW A Urine Mucus FEW A Urine Yeast (Budding) MANY A Urine Eosinophils % 0.0 Urine Hemoglobin NEGATIVE Urine Glucose NEGATIVE Urine Total Protein 2+ H Bedside Glucose 188 172 Sodium Level 124 L Potassium Level 4.4 Chloride Level 94 L Carbon Dioxide Level 21 Anion Gap 13 Blood Urea Nitrogen 96 H Creatinine 3.31 H Glucose Level 173 Calcium Level 8.7 Test 01/16/17 21:10 Bedside Glucose 169 Medications Medications Current Medications Naloxone HCl (Narcan) 0.4 mg Q4 PRN IV SEDATION; Start 01/05/17 at 01:30 Acetaminophen (Tylenol Tab) 650 mg Q6H PRN PO PAIN AND OR ELEVATED TEMP; Start 01/05/17 at 10:30 Apixaban (Eliquis) 2.5 mg BID PO Last administered on 01/16/17 21:05; Admin Dose 2.5 MG; Start 01/05/17 at 10:30 Ascorbic Acid (Vitamin C) 500 mg BID PO Last administered on 01/16/17 21:08; Admin Dose 500 MG; Start 01/05/17 at 10:30 Bisacodyl (Dulcolax Supp) 10 mg DAILY [place] Last administered on 01/16/17 09:09; Admin Dose 10 MG; Start 01/06/17 at 09:00 Budesonide (Pulmicort (Neb)) 0.25 mg BID NEB Last administered on 01/16/17 20: 24; Admin Dose 0.25 MG; Start 01/05/17 at 10:30 Docusate Sodium (Colace) 100 mg BID PO Last administered on 01/16/17 21:05; Admin Dose 100 MG; Start 01/05/17 at 10:30 Fluticasone Propionate (Flonase 0.05% Nasal) 1 spray DAILY NASAL Last administered on 01/16/17 09:10; Admin Dose 1 SPRAY; Start 01/05/17 at 11:00 Fulvestrant (Faslodex) 500 mg Q28D IM ; Start 01/29/17 at 09:00 Insulin Glargine (Lantus) 18 unit DAILY SC Last administered on 01/16/17 08:52 ; Admin Dose 18 UNIT; Start 01/05/17 at 10:30 Loratadine (Claritin) 10 mg DAILY PO Last administered on 01/16/17 09:08; Admin Dose 10 MG; Start 01/05/17 at 11:00 Magnesium Hydroxide (Milk Of Mag) 30 ml BID PRN PO CONSTIPATION Last administered on 01/16/17 09:09; Admin Dose 30 ML; Start 01/05/17 at 10:30 Magnesium Oxide (Mag-Ox 400) 400 mg DAILY PO Last administered on 01/16/17 09: 08; Admin Dose 400 MG; Start 01/05/17 at 10:30 Mirtazapine (Remeron) 15 mg HS PO Last administered on 01/16/17 21:05; Admin Dose 15 MG; Start 01/05/17 at 21:00 Nitroglycerin (Nitroglycerin 2% Oint) 0.5 inch Q6 PRN TD CHEST PAIN; Start 03/13 at 10:30 Ondansetron HCl (Zofran Inj) 4 mg Q6H PRN IV NAUSEA Last administered on 09:09; Admin Dose 4 MG; Start 01/05/17 at 10:30 Sertraline HCl (Zoloft) 75 mg DAILY PO Last administered on 01/16/17 09:08; Admin Dose 75 MG; Start 01/05/17 at 10:30 Sildenafil Citrate (Revatio) 20 mg TID PO Last administered on 01/16/17 21:14 ; Admin Dose 20 MG; Start 01/05/17 at 13:00 Tacrolimus (Prograf) 2 mg QPM PO Last administered on 01/16/17 21:07; Admin Dose 2 MG; Start 01/05/17 at 21:00 Senna (Senokot) 1 tab HS PO Last administered on 01/16/17 21:05; Admin Dose 1 TAB; Start 01/05/17 at 21:00 Prednisone (Prednisone) 5 mg DAILY PO Last administered on 01/16/17 09:08; Admin Dose 5 MG; Start 01/05/17 at 12:00 Prednisone (Prednisone) 3 mg DAILY PO Last administered on 01/16/17 09:08; Admin Dose 3 MG; Start 01/05/17 at 12:00 Miscellaneous Information 1 ea NOTE XX ; Start 01/05/17 at 11:00 Glucose (Glutose) 15 gm Q15M PRN PO DECREASED GLUCOSE; Start 01/05/17 at 11:00 Glucose (Glutose) 22.5 gm Q15M PRN PO DECREASED GLUCOSE; Start 01/05/17 at 11: 00 Dextrose (D50w Syringe) 25 ml Q15M PRN IV DECREASED GLUCOSE Last administered on 01/09/17 04:45; Admin Dose 25 ML; Start 01/05/17 at 11:00 Dextrose (D50w Syringe) 50 ml Q15M PRN IV DECREASED GLUCOSE Last administered on 01/08/17 21:33; Admin Dose 50 ML; Start 01/05/17 at 11:00 Glucagon (Glucagen) 1 mg Q15M PRN IM DECREASED GLUCOSE; Start 01/05/17 at 11:00 Glucose (Glutose) 15 gm Q15M PRN BUCCAL DECREASED GLUCOSE; Start 01/05/17 at 11 :00 Oxcarbazepine (Trileptal) 600 mg BID PO Last administered on 01/16/17 21:05; Admin Dose 600 MG; Start 01/05/17 at 12:00 Insulin Aspart NOVOLOG *MILD* ALGORI... Q4 SC Last administered on 01/16/17 21 :12; Admin Dose 1 UNIT; Start 01/05/17 at 13:00 Fentanyl 100 ml @ 2.5 mls/hr TITRATE IV Last administered on 01/07/17 02:25; Admin Dose 7.5 MLS/HR; Start 01/06/17 at 09:30 Norepinephrine/ Dextrose (Levophed/D5W) 500 ml @ 0 mls/hr TITRATE IV ; Start 04/12 at 13:30 Bumetanide 1 mg 1 mg BID IV Last administered on 01/13/17 21:06; Admin Dose 1 MG; Start 01/08/17 at 09:00; Status Future Hold Propofol (Diprivan) 100 ml @ 2.19 mls/hr Q12H IV Last administered on 19:35; Admin Dose 5.24 MLS/HR; Start 01/08/17 at 16:00 Metoprolol Tartrate (Lopressor) 25 mg BID PO Last administered on 01/16/17 21: 08; Admin Dose 25 MG; Start 01/12/17 at 21:00 Miscellaneous Information FULVESTRANT 250 MG/5 ML SYG: PLE... Q8H XX ; Start 01/26/17 at 09:00 Dextrose/Sodium Chloride (D5-NS) 1,000 ml @ 75 mls/hr [id number] IV Last administered on 01/16/17 16:55; Admin Dose 75 MLS/HR; Start 01/15/17 at 13:30 Famotidine (Pepcid Iv) 20 mg DAILY IV Last administered on 01/16/17 09:12; Admin Dose 20 MG; Start 01/16/17 at 09:00 SHANICE DAVENPORT MD Jan 16, 2017 23:33
[2017-01-16] MEDS ORDERED: HALOPERIDOL 5 MG INJ ONE (23:59)
[2017-01-17] VITALS (56 sets, daily range): BP systolic 96–168; BP diastolic 45–102; PULSE 57–99; RESP 12–29
[2017-01-17] MEDS: IPRATROPIUM (HFA) 12.9 GM INHALER INH SCH ×4 (01:33→19:08)
[2017-01-17] MEDS: ALBUTEROL 18 GM INHALER INH SCH ×4 (01:33→19:08)
[2017-01-17] MEDS: INSULIN ASPART [NOVOLOG] 3 ML PEN SC SCH ×6 (01:57→20:46)
[2017-01-17] MEDS: DEXTROSE 5%-0.9% NACL 1,000 ML IV SCH (05:18)
[2017-01-17 05:58] LABS: ABNORMAL IP MESSAGE 1; BASOPHILS % 0.1 % (0.0-2.0); EOSINOPHILS # 0.3 10^3/ul (0.0-0.5); EOSINOPHILS % 1.8 % (0.0-7.0); HEMATOCRIT 27.4 % (37.0-47.0); HEMOGLOBIN 8.8 g/dl (12.0-16.0); LYMPHOCYTES # 0.4 10^3/ul (0.8-2.9); LYMPHOCYTES % 2.7 % (15.0-51.0); MEAN CORPUSCULAR HGB CONC 32.1 g/dl (32.0-37.0); MEAN CORPUSCULAR VOLUME 90.4 fl (82.0-101.0); MEAN PLATELET VOLUME 10.8 fl (7.4-10.4); MONOCYTE # 0.5 10^3/ul (0.3-0.9); MONOCYTES % 3.4 % (0.0-11.0); NEUTROPHIL # 14.2 10^3/ul (1.6-7.5); PLATELET COUNT 305 10^3/UL (140-415); RED BLOOD COUNT 3.03 10^6/ul (4.20-5.40); RED CELL DISTRIBUTION WIDTH 15.4 % (11.5-14.5); WHITE BLOOD COUNT 15.8 10^3/ul (4.8-10.8)
[2017-01-17 06:35] LABS: CREATININE 3.34 mg/dl (0.44-1.00); MAGNESIUM 2.6 mg/dl (1.7-2.5); PHOSPHORUS 4.1 mg/dl (2.5-4.9); POTASSIUM 4.5 mmol/L (3.5-5.1)
[2017-01-17 06:45] LABS: POSITIVE DIFF @See below
[2017-01-17] MEDS: PROPOFOL 100 ML IV SCH ×3 (07:08→20:49)
[2017-01-17] MEDS: LEVOTHYROXINE 75 MCG TAB PO SCH (07:52)
--- NOTE | 2017-01-17 08:58 | PN ---
DATE: 01/17/2017 SUBJECTIVE DATA: The patient remains critical, on full ventilatory support. The patient is pending trach and PEG. The patient's urinary output continues to be marginal. No other events noted. No hemoptysis, hematemesis, or hematochezia. OBJECTIVE DATA: VITAL SIGNS: Blood pressure is 137/76, respirations 18, pulse 79, temperature 97.5. I's and O's: The patient had 2.8 liters in and 185 mL out. HEENT: Head is normocephalic. NECK: Supple. HEART: Regular rate. LUNGS: Diminished breath sounds at the base. ABDOMEN: Soft. Nontender to palpation. No rebound or guarding. EXTREMITIES: Negative for clubbing, cyanosis. Positive edema. DERMATOLOGIC: No rashes. MUSCULOSKELETAL: No joint effusion. NEUROLOGIC: No change in exam. MEDICATIONS: Reviewed. LABORATORY AND DIAGNOSTIC DATA: Shows a urinalysis with 18 RBC's, WBC's 47, many bacteria. Eosinophils are negative, +2 proteinuria, positive squamous cell, many yeast noted. White count 16.8, hemoglobin 8.8, hematocrit 27.4, and platelet count is 305,000. The patient's Prograf level is 4.4. Sodium 135, potassium 4.5, BUN 95, creatinine 3.34. Magnesium 2.6. IMAGING: The patient's renal ultrasound shows increased echogenicity of right lower quadrant. No hydronephrosis, small amount of ascites. Left pleural effusion. ASSESSMENT AND PLAN: 1. 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 Previous baseline creatinine 1.5 to 1.7 mg/dL. Etiology of acute kidney injury secondary to acute tubular necrosis, due to septic shock nephrotoxicity, ischemic hypoperfusion. The possibility of interstitial nephritis was a consideration. However, a repeat urinalysis does show yeast, as well as WBC clumps. Patient's urine eosinophils are negative. Possibility of rejection was a consideration, however, this is unlikely given clinical presentation. The patient's Prograf level was appropriate at 4.4. At this point, the patient may be entering maintenance phase of acute tubular necrosis, as renal function appears to have stabilized. Will continue to monitor closely. No immediate need for renal placement therapy at this time. 2. Acute congestive heart failure exacerbation. Continue to hold diuretic therapy. Will discontinue IV fluids, and monitor. 3. Hyponatremia. Secondary to acute kidney injury. Continue to limit free water intake. 4. Paroxysmal atrial fibrillation. Continue current treatment plan. Currently in sinus rhythm. 5. Sepsis status post-shock secondary to pneumonia and fungal urinary tract infection. Continue current medical management. Follow up with Infectious Disease. 6. History of end-stage renal disease. 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 The patient is currently acute injury as stated above. Continue to monitor. 7. Hypothyroidism. Continue Synthroid. 8. Anemia. Monitor hemoglobin and hematocrit levels. 9. Diabetes. Continue Accu-Cheks and sliding scale. 10. Pulmonary hypertension. Continue medical management. 11. Anxiety, depression. 12. Dysphagia. Continue tube feeding. 13. History of breast cancer. 14. Hematuria improving, likely due to [place] Cruz trauma in conjunction anticoagulation and urinary infection. 15. Gastrointestinal and deep venous thrombosis prophylaxis. CRITICAL CARE TIME: Please note I spent over 35 minutes of critical care time with this patient. Dictated By: Cameron Rosenthal DO /[email or web address]/fred /Document#: [id number]
[2017-01-17] MEDS: FAMOTIDINE 20 MG INJ IV SCH (09:00)
[2017-01-17] MEDS: ASCORBIC ACID 500 MG TAB PO SCH (09:50)
[2017-01-17] MEDS: DOCUSATE SODIUM 100 MG CAP PO SCH (09:50)
[2017-01-17] MEDS: predniSONE 1 MG TAB PO SCH (09:50)
[2017-01-17] MEDS: LORATADINE 10 MG TAB PO SCH (09:50)
[2017-01-17] MEDS: TACROLIMUS 1 MG CAP PO SCH (09:50)
[2017-01-17] MEDS: MAGNESIUM OXIDE 400 MG TAB PO SCH (09:50)
[2017-01-17] MEDS: APIXABAN 5 MG TABLET PO SCH (09:51)
[2017-01-17] MEDS: BISACODYL 10 MG SUPP PR SCH (09:51)
[2017-01-17] MEDS: METOPROLOL 25 MG TAB PO SCH (09:53)
[2017-01-17] MEDS: predniSONE 5 MG TAB PO SCH (09:53)
[2017-01-17] MEDS: OXCARBAZEPINE 300 MG TAB PO SCH (09:53)
[2017-01-17] MEDS: SERTRALINE 50 MG TAB PO SCH (09:58)
[2017-01-17] MEDS: SILDENAFIL 20 MG TAB PO SCH ×2 (09:58→13:27)
[2017-01-17] MEDS: INSULIN GLARGINE [LANtus] 3 ML PEN SC SCH (10:11)
[2017-01-17] MEDS: FLUTICASONE 0.05% 16 GM NAS SPRAY NASAL SCH (10:13)
[2017-01-17] MEDS: BALSAM PERU/CASTOR OIL 60 GM TUBE TOP SCH (10:13)
[2017-01-17] MEDS: BUDESONIDE (NEB) 0.25 MG/2 ML AMP NEB SCH ×2 (10:53→20:01)
--- NOTE | 2017-01-17 11:13 | CONS ---
Date/Time of Note Date/Time of Note DATE: 01/17/17 TIME: 11:10 Assessment/Plan Assessment/Plan Additional Assessment/Plan Ventilator setting; AC of 12, tidal volume 450, PEEP of 5, 30% FiO2. Assessment and recommendations; next 1. Patient admitted with respiratory failure due to congestive heart failure and bilateral pneumonia. Status post right thoracentesis. 2. History of chronic immunosuppression due to renal transplant. 3. Severe generalized deconditioning. 4. Diabetes and hypo-thyroidism. 5. Hypertension. 6. Chronic renal insufficiency. 7. Failure to be weaned from ventilator despite numerous attempts. Continue current treatment. Patient will need to have a tracheostomy and G- tube placed. Meanwhile obtain follow-up chest x-ray. Consultation Date/Type/Reason Admit Date/Time Jan 05, 2017 at 00:15 Initial Consult Date 01/05/17 Type of Consultation: Pulmonary/critical care Referring Provider: SUSAN SIMENTAL DO 24 HR Interval Summary Free Text/Dictation Condition remains critical. Remains quite lethargic but awake. Patient has failed numerous weaning trials from ventilator. And required reintubation a few days ago. General exam; elderly woman, awake, currently in no distress. Orally intubated. Exam/Review of Systems Vital Signs Vitals Vital Signs Date Time Temp Pulse Resp B/P Pulse Ox O2 Delivery O2 Flow Rate FiO2 01/17/17 10:30 81 26 140/47 99 01/17/17 10:00 Mechanical Ventilator 01/17/17 09:10 30 01/17/17 08:00 98.0 Intake and Output 01/16/17 01/16/17 01/17/17 15:00 23:00 07:00 Intake Total 812.4 ml 1057.4 ml 866.12 ml Output Total 72 ml 65 ml 43 ml Balance 740.4 ml 992.4 ml 823.12 ml Exam HEENT exam; supple neck, positive JVD. No lymphadenopathy. Midline trachea. No thyromegaly. Patient has fair dentition. Has bilateral intraocular lens implants. Orally intubated. Chest exam; diminished but clear breath sounds. S1-S2 audible, no murmurs. Regular rhythm. Abdomen exam; soft, no organomegaly. Bowel sounds audible. Nontender. Extremity exam; 1+ generalized edema. COREMAKER PIPE exam; patient is awake but lethargic. Results Result Diagram: 01/17/17 0501 01/17/17 0501 Results 24 hrs Laboratory Tests Test 01/16/17 12:48 01/16/17 13:55 01/16/17 16:53 01/16/17 21:10 Bedside Glucose 188 172 169 Sodium Level 124 L Potassium Level 4.4 Chloride Level 94 L Carbon Dioxide Level 21 Anion Gap 13 Blood Urea Nitrogen 96 H Creatinine 3.31 H Glucose Level 173 Calcium Level 8.7 Test 01/17/17 01:53 01/17/17 05:01 01/17/17 05:21 01/17/17 09:48 Bedside Glucose 183 187 190 White Blood Count 15.8 H Red Blood Count 3.03 L Hemoglobin 8.8 L Hematocrit 27.4 L Mean Corpuscular Volume 90.4 Mean Corpuscular Hemoglobin 29.0 Mean Corpuscular Hemoglobin Concent 32.1 Red Cell Distribution Width 15.4 H Platelet Count 305 Mean Platelet Volume 10.8 H Neutrophils % 90.0 H Lymphocytes % 2.7 L Monocytes % 3.4 Eosinophils % 1.8 Basophils % 0.1 Nucleated Red Blood Cells % 0.0 Neutrophils # 14.2 H Lymphocytes # 0.4 L Monocytes # 0.5 Eosinophils # 0.3 Basophils # 0.0 Nucleated Red Blood Cells # 0.0 Sodium Level 125 L Potassium Level 4.5 Chloride Level 95 L Carbon Dioxide Level 20 L Anion Gap 15 Blood Urea Nitrogen 95 H Creatinine 3.34 H Glucose Level 179 Calcium Level 9.0 Phosphorus Level 4.1 Magnesium Level 2.6 H Medications Medications Current Medications Naloxone HCl (Narcan) 0.4 mg Q4 PRN IV SEDATION; Start 01/05/17 at 01:30 Acetaminophen (Tylenol Tab) 650 mg Q6H PRN PO PAIN AND OR ELEVATED TEMP; Start 01/05/17 at 10:30 Apixaban (Eliquis) 2.5 mg BID PO Last administered on 01/17/17 09:51; Admin Dose 2.5 MG; Start 01/05/17 at 10:30 Ascorbic Acid (Vitamin C) 500 mg BID PO Last administered on 01/17/17 09:50; Admin Dose 500 MG; Start 01/05/17 at 10:30 Bisacodyl (Dulcolax Supp) 10 mg DAILY [place] Last administered on 01/17/17 09:51; Admin Dose 10 MG; Start 01/06/17 at 09:00 Budesonide (Pulmicort (Neb)) 0.25 mg BID NEB Last administered on 01/17/17 10: 53; Admin Dose 0.25 MG; Start 01/05/17 at 10:30 Docusate Sodium (Colace) 100 mg BID PO Last administered on 01/17/17 09:50; Admin Dose 100 MG; Start 01/05/17 at 10:30 Fluticasone Propionate (Flonase 0.05% Nasal) 1 spray DAILY NASAL Last administered on 01/17/17 10:13; Admin Dose 1 SPRAY; Start 01/05/17 at 11:00 Fulvestrant (Faslodex) 500 mg Q28D IM ; Start 01/29/17 at 09:00 Insulin Glargine (Lantus) 18 unit DAILY SC Last administered on 01/17/17 10:11 ; Admin Dose 18 UNIT; Start 01/05/17 at 10:30 Loratadine (Claritin) 10 mg DAILY PO Last administered on 01/17/17 09:50; Admin Dose 10 MG; Start 01/05/17 at 11:00 Magnesium Hydroxide (Milk Of Mag) 30 ml BID PRN PO CONSTIPATION Last administered on 01/16/17 09:09; Admin Dose 30 ML; Start 01/05/17 at 10:30 Magnesium Oxide (Mag-Ox 400) 400 mg DAILY PO Last administered on 01/17/17 09: 50; Admin Dose 400 MG; Start 01/05/17 at 10:30 Mirtazapine (Remeron) 15 mg HS PO Last administered on 01/16/17 21:05; Admin Dose 15 MG; Start 01/05/17 at 21:00 Nitroglycerin (Nitroglycerin 2% Oint) 0.5 inch Q6 PRN TD CHEST PAIN; Start 03/13 at 10:30 Ondansetron HCl (Zofran Inj) 4 mg Q6H PRN IV NAUSEA Last administered on 09:09; Admin Dose 4 MG; Start 01/05/17 at 10:30 Sertraline HCl (Zoloft) 75 mg DAILY PO Last administered on 01/17/17 09:58; Admin Dose 75 MG; Start 01/05/17 at 10:30 Sildenafil Citrate (Revatio) 20 mg TID PO Last administered on 01/17/17 09:58 ; Admin Dose 20 MG; Start 01/05/17 at 13:00 Tacrolimus (Prograf) 2 mg QPM PO Last administered on 01/16/17 21:07; Admin Dose 2 MG; Start 01/05/17 at 21:00 Senna (Senokot) 1 tab HS PO Last administered on 01/16/17 21:05; Admin Dose 1 TAB; Start 01/05/17 at 21:00 Prednisone (Prednisone) 5 mg DAILY PO Last administered on 01/17/17 09:53; Admin Dose 5 MG; Start 01/05/17 at 12:00 Prednisone (Prednisone) 3 mg DAILY PO Last administered on 01/17/17 09:50; Admin Dose 3 MG; Start 01/05/17 at 12:00 Miscellaneous Information 1 ea NOTE XX ; Start 01/05/17 at 11:00 Glucose (Glutose) 15 gm Q15M PRN PO DECREASED GLUCOSE; Start 01/05/17 at 11:00 Glucose (Glutose) 22.5 gm Q15M PRN PO DECREASED GLUCOSE; Start 01/05/17 at 11: 00 Dextrose (D50w Syringe) 25 ml Q15M PRN IV DECREASED GLUCOSE Last administered on 01/09/17 04:45; Admin Dose 25 ML; Start 01/05/17 at 11:00 Dextrose (D50w Syringe) 50 ml Q15M PRN IV DECREASED GLUCOSE Last administered on 01/08/17 21:33; Admin Dose 50 ML; Start 01/05/17 at 11:00 Glucagon (Glucagen) 1 mg Q15M PRN IM DECREASED GLUCOSE; Start 01/05/17 at 11:00 Glucose (Glutose) 15 gm Q15M PRN BUCCAL DECREASED GLUCOSE; Start 01/05/17 at 11 :00 Oxcarbazepine (Trileptal) 600 mg BID PO Last administered on 01/17/17 09:53; Admin Dose 600 MG; Start 01/05/17 at 12:00 Insulin Aspart NOVOLOG *MILD* ALGORI... Q4 SC Last administered on 01/17/17 10 :10; Admin Dose 2 UNIT; Start 01/05/17 at 13:00 Fentanyl 100 ml @ 2.5 mls/hr TITRATE IV Last administered on 01/07/17 02:25; Admin Dose 7.5 MLS/HR; Start 01/06/17 at 09:30 Norepinephrine/ Dextrose (Levophed/D5W) 500 ml @ 0 mls/hr TITRATE IV ; Start 04/12 at 13:30 Bumetanide 1 mg 1 mg BID IV Last administered on 01/13/17 21:06; Admin Dose 1 MG; Start 01/08/17 at 09:00; Status Future Hold Propofol (Diprivan) 100 ml @ 2.19 mls/hr Q12H IV Last administered on 07:08; Admin Dose 8.48 MLS/HR; Start 01/08/17 at 16:00 Metoprolol Tartrate (Lopressor) 25 mg BID PO Last administered on 01/17/17 09: 53; Admin Dose 25 MG; Start 01/12/17 at 21:00 Miscellaneous Information (*Order Clarification Bulletin) FULVESTRANT 250 MG/5 ML SYG: PLE... Q8H XX ; Start 01/26/17 at 09:00 Famotidine (Pepcid Iv) 20 mg DAILY IV Last administered on 01/17/17 09:00; Admin Dose 20 MG; Start 01/16/17 at 09:00 JOELLE INFANTE Jan 17, 2017 11:13
--- NOTE | 2017-01-17 13:10 | CONS ---
Date/Time of Note Date/Time of Note DATE: 01/17/17 TIME: 13:08 Assessment/Plan Assessment/Plan Additional Assessment/Plan 1. Respiratory failure 2. COPD 3. Pulmonary hypertension 4. Atrial fibrillation 5. Renal failure 6. Diabetes mellitus 7. Cancer of the breast with metastasis 8. Dysphagia 9. Sepsis Plan We will proceed with PEG once the family signs a consent We will stop Eliquis once the consent is obtained. Consultation Date/Type/Reason Admit Date/Time Jan 05, 2017 at 00:15 Initial Consult Date 01/05/17 Type of Consultation: Pulmonary/critical care Referring Provider: SUSAN SIMENTAL DO 24 HR Interval Summary Subjective hx not possible: pt non-verbal, pt critical Exam/Review of Systems Vital Signs Vitals Vital Signs Date Time Temp Pulse Resp B/P Pulse Ox O2 Delivery O2 Flow Rate FiO2 01/17/17 11:36 68 16 100 30 01/17/17 10:30 140/47 01/17/17 10:00 Mechanical Ventilator 01/17/17 08:00 98.0 Intake and Output 01/16/17 01/16/17 01/17/17 15:00 23:00 07:00 Intake Total 812.4 ml 1057.4 ml 866.12 ml Output Total 72 ml 65 ml 43 ml Balance 740.4 ml 992.4 ml 823.12 ml Exam Head: atraumatic, normocephalic Respiratory: other (Patient is on vent) Cardiovascular: nl pulses, regular rate and rhythm Gastrointestinal: nl liver, spleen, non-tender, soft Extremities: normal pulses Neurological: TUBE SPLICER II-XII intact, nl mental status, nl speech, nl strength Results Result Diagram: 01/17/17 0501 01/17/17 0501 Results 24 hrs Laboratory Tests Test 01/16/17 13:55 01/16/17 16:53 01/16/17 21:10 01/17/17 01:53 Sodium Level 124 L Potassium Level 4.4 Chloride Level 94 L Carbon Dioxide Level 21 Anion Gap 13 Blood Urea Nitrogen 96 H Creatinine 3.31 H Glucose Level 173 Calcium Level 8.7 Bedside Glucose 172 169 183 Test 01/17/17 05:01 01/17/17 05:21 01/17/17 09:48 White Blood Count 15.8 H Red Blood Count 3.03 L Hemoglobin 8.8 L Hematocrit 27.4 L Mean Corpuscular Volume 90.4 Mean Corpuscular Hemoglobin 29.0 Mean Corpuscular Hemoglobin Concent 32.1 Red Cell Distribution Width 15.4 H Platelet Count 305 Mean Platelet Volume 10.8 H Neutrophils % 90.0 H Lymphocytes % 2.7 L Monocytes % 3.4 Eosinophils % 1.8 Basophils % 0.1 Nucleated Red Blood Cells % 0.0 Neutrophils # 14.2 H Lymphocytes # 0.4 L Monocytes # 0.5 Eosinophils # 0.3 Basophils # 0.0 Nucleated Red Blood Cells # 0.0 Sodium Level 125 L Potassium Level 4.5 Chloride Level 95 L Carbon Dioxide Level 20 L Anion Gap 15 Blood Urea Nitrogen 95 H Creatinine 3.34 H Glucose Level 179 Calcium Level 9.0 Phosphorus Level 4.1 Magnesium Level 2.6 H Bedside Glucose 187 190 Medications Medications Current Medications Naloxone HCl (Narcan) 0.4 mg Q4 PRN IV SEDATION; Start 01/05/17 at 01:30 Acetaminophen (Tylenol Tab) 650 mg Q6H PRN PO PAIN AND OR ELEVATED TEMP; Start 01/05/17 at 10:30 Apixaban (Eliquis) 2.5 mg BID PO Last administered on 01/17/17 09:51; Admin Dose 2.5 MG; Start 01/05/17 at 10:30 Ascorbic Acid (Vitamin C) 500 mg BID PO Last administered on 01/17/17 09:50; Admin Dose 500 MG; Start 01/05/17 at 10:30 Bisacodyl (Dulcolax Supp) 10 mg DAILY IN Last administered on 01/17/17 09:51; Admin Dose 10 MG; Start 01/06/17 at 09:00 Budesonide (Pulmicort (Neb)) 0.25 mg BID NEB Last administered on 01/17/17 10: 53; Admin Dose 0.25 MG; Start 01/05/17 at 10:30 Docusate Sodium (Colace) 100 mg BID PO Last administered on 01/17/17 09:50; Admin Dose 100 MG; Start 01/05/17 at 10:30 Fluticasone Propionate (Flonase 0.05% Nasal) 1 spray DAILY NASAL Last administered on 01/17/17 10:13; Admin Dose 1 SPRAY; Start 01/05/17 at 11:00 Fulvestrant (Faslodex) 500 mg Q28D IM ; Start 01/29/17 at 09:00 Insulin Glargine (Lantus) 18 unit DAILY SC Last administered on 01/17/17 10:11 ; Admin Dose 18 UNIT; Start 01/05/17 at 10:30 Loratadine (Claritin) 10 mg DAILY PO Last administered on 01/17/17 09:50; Admin Dose 10 MG; Start 01/05/17 at 11:00 Magnesium Hydroxide (Milk Of Mag) 30 ml BID PRN PO CONSTIPATION Last administered on 01/16/17 09:09; Admin Dose 30 ML; Start 01/05/17 at 10:30 Magnesium Oxide (Mag-Ox 400) 400 mg DAILY PO Last administered on 01/17/17 09: 50; Admin Dose 400 MG; Start 01/05/17 at 10:30 Mirtazapine (Remeron) 15 mg HS PO Last administered on 01/16/17 21:05; Admin Dose 15 MG; Start 01/05/17 at 21:00 Nitroglycerin (Nitroglycerin 2% Oint) 0.5 inch Q6 PRN TD CHEST PAIN; Start 03/13 at 10:30 Ondansetron HCl (Zofran Inj) 4 mg Q6H PRN IV NAUSEA Last administered on 09:09; Admin Dose 4 MG; Start 01/05/17 at 10:30 Sertraline HCl (Zoloft) 75 mg DAILY PO Last administered on 01/17/17 09:58; Admin Dose 75 MG; Start 01/05/17 at 10:30 Sildenafil Citrate (Revatio) 20 mg TID PO Last administered on 01/17/17 09:58 ; Admin Dose 20 MG; Start 01/05/17 at 13:00 Tacrolimus (Prograf) 2 mg QPM PO Last administered on 01/16/17 21:07; Admin Dose 2 MG; Start 01/05/17 at 21:00 Senna (Senokot) 1 tab HS PO Last administered on 01/16/17 21:05; Admin Dose 1 TAB; Start 01/05/17 at 21:00 Prednisone (Prednisone) 5 mg DAILY PO Last administered on 01/17/17 09:53; Admin Dose 5 MG; Start 01/05/17 at 12:00 Prednisone (Prednisone) 3 mg DAILY PO Last administered on 01/17/17 09:50; Admin Dose 3 MG; Start 01/05/17 at 12:00 Miscellaneous Information 1 ea NOTE XX ; Start 01/05/17 at 11:00 Glucose (Glutose) 15 gm Q15M PRN PO DECREASED GLUCOSE; Start 01/05/17 at 11:00 Glucose (Glutose) 22.5 gm Q15M PRN PO DECREASED GLUCOSE; Start 01/05/17 at 11: 00 Dextrose (D50w Syringe) 25 ml Q15M PRN IV DECREASED GLUCOSE Last administered on 01/09/17 04:45; Admin Dose 25 ML; Start 01/05/17 at 11:00 Dextrose (D50w Syringe) 50 ml Q15M PRN IV DECREASED GLUCOSE Last administered on 01/08/17 21:33; Admin Dose 50 ML; Start 01/05/17 at 11:00 Glucagon (Glucagen) 1 mg Q15M PRN IM DECREASED GLUCOSE; Start 01/05/17 at 11:00 Glucose (Glutose) 15 gm Q15M PRN BUCCAL DECREASED GLUCOSE; Start 01/05/17 at 11 :00 Oxcarbazepine (Trileptal) 600 mg BID PO Last administered on 01/17/17 09:53; Admin Dose 600 MG; Start 01/05/17 at 12:00 Insulin Aspart NOVOLOG *MILD* ALGORI... Q4 SC Last administered on 01/17/17 10 :10; Admin Dose 2 UNIT; Start 01/05/17 at 13:00 Fentanyl 100 ml @ 2.5 mls/hr TITRATE IV Last administered on 01/07/17 02:25; Admin Dose 7.5 MLS/HR; Start 01/06/17 at 09:30 Norepinephrine/ Dextrose (Levophed/D5W) 500 ml @ 0 mls/hr TITRATE IV ; Start 04/12 at 13:30 Bumetanide 1 mg 1 mg BID IV Last administered on 01/13/17 21:06; Admin Dose 1 MG; Start 01/08/17 at 09:00; Status Future Hold Propofol (Diprivan) 100 ml @ 2.19 mls/hr Q12H IV Last administered on 07:08; Admin Dose 8.48 MLS/HR; Start 01/08/17 at 16:00 Metoprolol Tartrate (Lopressor) 25 mg BID PO Last administered on 01/17/17 09: 53; Admin Dose 25 MG; Start 01/12/17 at 21:00 Miscellaneous Information (*Order Clarification Bulletin) FULVESTRANT 250 MG/5 ML SYG: PLE... Q8H XX ; Start 01/26/17 at 09:00 Famotidine (Pepcid Iv) 20 mg DAILY IV Last administered on 01/17/17 09:00; Admin Dose 20 MG; Start 01/16/17 at 09:00 MEMO WILHELM MD Jan 17, 2017 13:10
--- NOTE | 2017-01-17 13:30 | CONS ---
DATE OF ADMISSION: 01/05/2017 DATE OF CONSULTATION: 01/16/2017 REASON FOR CONSULTATION: Placement of J-tube. HISTORY OF PRESENT ILLNESS: The patient is a pleasant 70-year- old female with a history of metastatic breast cancer, originally taken to the [facility] for shortness of breath. The patient was placed on a BiPAP but stabilized, subsequently transferred to [facility] by the hospital. Patient was weaned off of the BiPAP, then transferred to the rehab center at [facility]. There she was given narcotic for pain, and the patient then became mentally altered requires chest compression and subsequently intubation, and the patient transferred to intensive care unit. The patient is septic. They tried to wean her off the vent and could not do it. So, both CT and GI consult was called in for placement of tracheostomy tube and G-tube. No but not much information could be obtained from the patient because she is intubated. All the information gathered by reviewing the chart. PAST MEDICAL HISTORY: Breast cancer with mets, on Faslodex. End- stage renal disease, for which she had a renal transplant and she is on immunosuppressive medication. Hypothyroidism, pulmonary hypertension, diabetes mellitus, COPD and atrial fibrillation. PAST SURGICAL HISTORY: Status post-renal transplant. FAMILY HISTORY: Nothing contributory. REVIEW OF SYSTEMS: Unable to obtain. ALLERGIES: NONE. PHYSICAL EXAMINATION: VITAL SIGNS: Stable. The patient is alert, awake and intubated. HEART: No murmur, gallop, or click. LUNGS: Air entry diminished. ABDOMEN: Benign. EXTREMITIES: No edema. NEUROLOGIC: Grossly within normal limits. He moves all extremities. LABORATORY: INR is normal. Creatinine is going up to 3.34, BUN is 95. WBC is 13.7. IMPRESSION: 1. Respiratory failure. 2. Dysphagia. 3. Sepsis. 4. Renal failure. 5. Diabetes mellitus. 6. Breast cancer with metastasis. 7. Chronic obstructive pulmonary disease. 8. Pulmonary hypertension. 9. Atrial fibrillation. PLAN: I reviewed all the medication. Patient is also on Eliquis. Once we get the consent and the patient is stable, I will stop Eliquis 24 hours prior to placement of her PEG. Dictated By: Benjie Russell MD /[email or web address]/fred /Document#: [id number] CC: Cameron Rosenthal DO; Benjie Russell MD;*EndCC*
--- NOTE | 2017-01-17 15:36 | RADRPT ---
PROCEDURE: XR Chest 1 View. CLINICAL INDICATION: Shortness of breath. TECHNIQUE: AP view of the chest was obtained. COMPARISON: January 14, 2017 FINDINGS: The cardiomediastinal silhouette is within normal limits. Endotracheal and nasogastric tubes are sta ble and appear in grossly appropriate location. Surgical clips over the heart are stable. Central pu lmonary vascular congestion and interstitial prominence in both lungs is unchanged. Patchy perihilar infiltrates throughout the left lung and in the right lower lobe are stable. Small pleural effusion s are unchanged. Surgical clips are seen of the lateral left lower chest and in the right axilla. Os seous structures are intact. IMPRESSION: Stable central pulmonary vascular congestion and mild interstitial prominence in both lungs. Stable perihilar infiltrates throughout the left lung and in the right lower lobe, combined with sma ll pleural effusions. RPTAT: AA .Abelino Dhaliwal MD, Date Time Electronically viewed and signed by .Abelino Dhaliwal MD, on 01/17/2017 15:36 .P/
--- NOTE | 2017-01-17 19:00 | CONS ---
Date/Time of Note Date/Time of Note DATE: 01/17/17 TIME: 19:00 Assessment/Plan Assessment/Plan Chief Complaint/Hosp Course History of breast cancer with lung metastasis. The patient is on medical management. on Faslodex as outpt Anemia. Monitor hemoglobin and hematocrit levels. [employer]UKOCYT[employer] s/p cardiopulmonary arrest: Most likely due to pulmonary arrest P afib: currently in NSR History of renal failure status post renal transplant Acute on chronic hypoxemic hypercapnic respiratory failure status post tracheostomy currently on the vent POST THORACENTESIS CYTOLOGY- neg Shock: currently blood pressure has improved Chronic obstructive pulmonary disease exacerbation. Congestive heart failure exacerbation. Hypothyroidism. Diabetes. Continue current insulin regimen. Pulmonary hypertension. Depression. Problems: Consultation Date/Type/Reason Admit Date/Time Jan 05, 2017 at 00:15 Initial Consult Date 01/05/17 Type of Consultation: [facility] Referring Provider: SUSAN SIMENTAL DO 24 HR Interval Summary Free Text/Dictation ALL NOTED D/W RN Exam/Review of Systems Vital Signs Vitals Vital Signs Date Time Temp Pulse Resp B/P Pulse Ox O2 Delivery O2 Flow Rate FiO2 01/17/17 18:00 68 16 158/66 100 Mechanical Ventilator 01/17/17 17:06 30 01/17/17 16:00 97.4 Intake and Output 01/16/17 01/16/17 01/17/17 15:00 23:00 07:00 Intake Total 812.4 ml 1057.4 ml 866.12 ml Output Total 72 ml 65 ml 43 ml Balance 740.4 ml 992.4 ml 823.12 ml Exam HEENT: Head is normocephalic. NECK: Supple. HEART: Regular rate. LUNGS: Show diminished breath sounds base. Positive rhonchi. ABDOMEN: Soft, nontender to palpation. No rebound or guarding. EXTREMITIES: Negative for clubbing, cyanosis. No edema. DERMATOLOGIC: Clean. No rashes. MUSCULOSKELETAL: No joint effusion. NEUROLOGIC: No change in exam. Results Result Diagram: 01/17/17 0501 01/17/17 0501 Results 24 hrs Laboratory Tests Test 01/16/17 21:10 01/17/17 01:53 01/17/17 05:01 01/17/17 05:21 Bedside Glucose 169 183 187 White Blood Count 15.8 H Red Blood Count 3.03 L Hemoglobin 8.8 L Hematocrit 27.4 L Mean Corpuscular Volume 90.4 Mean Corpuscular Hemoglobin 29.0 Mean Corpuscular Hemoglobin Concent 32.1 Red Cell Distribution Width 15.4 H Platelet Count 305 Mean Platelet Volume 10.8 H Neutrophils % 90.0 H Lymphocytes % 2.7 L Monocytes % 3.4 Eosinophils % 1.8 Basophils % 0.1 Nucleated Red Blood Cells % 0.0 Neutrophils # 14.2 H Lymphocytes # 0.4 L Monocytes # 0.5 Eosinophils # 0.3 Basophils # 0.0 Nucleated Red Blood Cells # 0.0 Sodium Level 125 L Potassium Level 4.5 Chloride Level 95 L Carbon Dioxide Level 20 L Anion Gap 15 Blood Urea Nitrogen 95 H Creatinine 3.34 H Glucose Level 179 Calcium Level 9.0 Phosphorus Level 4.1 Magnesium Level 2.6 H Test 01/17/17 09:48 01/17/17 13:14 01/17/17 18:24 Bedside Glucose 190 198 155 Medications Medications Current Medications Naloxone HCl (Narcan) 0.4 mg Q4 PRN IV SEDATION; Start 01/05/17 at 01:30 Acetaminophen (Tylenol Tab) 650 mg Q6H PRN PO PAIN AND OR ELEVATED TEMP; Start 01/05/17 at 10:30 Apixaban (Eliquis) 2.5 mg BID PO Last administered on 01/17/17 09:51; Admin Dose 2.5 MG; Start 01/05/17 at 10:30 Ascorbic Acid (Vitamin C) 500 mg BID PO Last administered on 01/17/17 09:50; Admin Dose 500 MG; Start 01/05/17 at 10:30 Bisacodyl (Dulcolax Supp) 10 mg DAILY FL Last administered on 01/17/17 09:51; Admin Dose 10 MG; Start 01/06/17 at 09:00 Budesonide (Pulmicort (Neb)) 0.25 mg BID NEB Last administered on 01/17/17 10: 53; Admin Dose 0.25 MG; Start 01/05/17 at 10:30 Docusate Sodium (Colace) 100 mg BID PO Last administered on 01/17/17 09:50; Admin Dose 100 MG; Start 01/05/17 at 10:30 Fluticasone Propionate (Flonase 0.05% Nasal) 1 spray DAILY NASAL Last administered on 01/17/17 10:13; Admin Dose 1 SPRAY; Start 01/05/17 at 11:00 Fulvestrant (Faslodex) 500 mg Q28D IM ; Start 01/29/17 at 09:00 Insulin Glargine (Lantus) 18 unit DAILY SC Last administered on 01/17/17 10:11 ; Admin Dose 18 UNIT; Start 01/05/17 at 10:30 Loratadine (Claritin) 10 mg DAILY PO Last administered on 01/17/17 09:50; Admin Dose 10 MG; Start 01/05/17 at 11:00 Magnesium Hydroxide (Milk Of Mag) 30 ml BID PRN PO CONSTIPATION Last administered on 01/16/17 09:09; Admin Dose 30 ML; Start 01/05/17 at 10:30 Magnesium Oxide (Mag-Ox 400) 400 mg DAILY PO Last administered on 01/17/17 09: 50; Admin Dose 400 MG; Start 01/05/17 at 10:30 Mirtazapine (Remeron) 15 mg HS PO Last administered on 01/16/17 21:05; Admin Dose 15 MG; Start 01/05/17 at 21:00 Nitroglycerin (Nitroglycerin 2% Oint) 0.5 inch Q6 PRN TD CHEST PAIN; Start 03/13 at 10:30 Ondansetron HCl (Zofran Inj) 4 mg Q6H PRN IV NAUSEA Last administered on 09:09; Admin Dose 4 MG; Start 01/05/17 at 10:30 Sertraline HCl (Zoloft) 75 mg DAILY PO Last administered on 01/17/17 09:58; Admin Dose 75 MG; Start 01/05/17 at 10:30 Sildenafil Citrate (Revatio) 20 mg TID PO Last administered on 01/17/17 13:27 ; Admin Dose 20 MG; Start 01/05/17 at 13:00 Senna (Senokot) 1 tab HS PO Last administered on 01/16/17 21:05; Admin Dose 1 TAB; Start 01/05/17 at 21:00 Prednisone (Prednisone) 5 mg DAILY PO Last administered on 01/17/17 09:53; Admin Dose 5 MG; Start 01/05/17 at 12:00 Prednisone (Prednisone) 3 mg DAILY PO Last administered on 01/17/17 09:50; Admin Dose 3 MG; Start 01/05/17 at 12:00 Miscellaneous Information 1 ea NOTE XX ; Start 01/05/17 at 11:00 Glucose (Glutose) 15 gm Q15M PRN PO DECREASED GLUCOSE; Start 01/05/17 at 11:00 Glucose (Glutose) 22.5 gm Q15M PRN PO DECREASED GLUCOSE; Start 01/05/17 at 11: 00 Dextrose (D50w Syringe) 25 ml Q15M PRN IV DECREASED GLUCOSE Last administered on 01/09/17 04:45; Admin Dose 25 ML; Start 01/05/17 at 11:00 Dextrose (D50w Syringe) 50 ml Q15M PRN IV DECREASED GLUCOSE Last administered on 01/08/17 21:33; Admin Dose 50 ML; Start 01/05/17 at 11:00 Glucagon (Glucagen) 1 mg Q15M PRN IM DECREASED GLUCOSE; Start 01/05/17 at 11:00 Glucose (Glutose) 15 gm Q15M PRN BUCCAL DECREASED GLUCOSE; Start 01/05/17 at 11 :00 Oxcarbazepine (Trileptal) 600 mg BID PO Last administered on 01/17/17 09:53; Admin Dose 600 MG; Start 01/05/17 at 12:00 Insulin Aspart NOVOLOG *MILD* ALGORI... Q4 SC Last administered on 01/17/17 18 :27; Admin Dose 1 UNIT; Start 01/05/17 at 13:00 Fentanyl 100 ml @ 2.5 mls/hr TITRATE IV Last administered on 01/07/17 02:25; Admin Dose 7.5 MLS/HR; Start 01/06/17 at 09:30 Norepinephrine/ Dextrose (Levophed/D5W) 500 ml @ 0 mls/hr TITRATE IV ; Start 04/12 at 13:30 Bumetanide 1 mg 1 mg BID IV Last administered on 01/13/17 21:06; Admin Dose 1 MG; Start 01/08/17 at 09:00; Status Future Hold Propofol (Diprivan) 100 ml @ 2.19 mls/hr Q12H IV Last administered on 16:00; Admin Dose 8.76 MLS/HR; Start 01/08/17 at 16:00 Metoprolol Tartrate (Lopressor) 25 mg BID PO Last administered on 01/17/17 09: 53; Admin Dose 25 MG; Start 01/12/17 at 21:00 Miscellaneous Information (*Order Clarification Bulletin) FULVESTRANT 250 MG/5 ML SYG: PLE... Q8H XX ; Start 01/26/17 at 09:00 Famotidine (Pepcid Iv) 20 mg DAILY IV Last administered on 01/17/17 09:00; Admin Dose 20 MG; Start 01/16/17 at 09:00 Tacrolimus (Prograf) 2 mg QPM PO ; Start 01/17/17 at 21:00 SHANICE DAVENPORT MD Jan 17, 2017 19:00
[2017-01-17] MEDS: TACROLIMUS 0.5 MG CAP NGT SCH (20:47)
[2017-01-17] MEDS: OXCARBAZEPINE 300 MG TAB NGT SCH (20:47)
[2017-01-17] MEDS: MIRTAZAPINE 15 MG TAB NGT SCH (20:47)
[2017-01-17] MEDS: DOCUSATE SODIUM 10 MG/ML (10ML CUP) NGT SCH (20:47)
[2017-01-17] MEDS: SILDENAFIL 20 MG TAB NGT SCH (20:48)
[2017-01-17] MEDS: SENNA TAB NGT SCH (20:48)
[2017-01-17] MEDS: METOPROLOL 25 MG TAB NGT SCH (20:48)
[2017-01-17] MEDS: ASCORBIC ACID 500 MG TAB NGT SCH (20:48)
[2017-01-17] MEDS: APIXABAN 5 MG TABLET NGT SCH (20:49)
[2017-01-17] MEDS ORDERED: TACROLIMUS 0.5 MG CAP PO SCH (21:00)
[2017-01-18] VITALS (58 sets, daily range): BP systolic 68–161; BP diastolic 42–84; PULSE 56–97; RESP 12–29
[2017-01-18] MEDS: INSULIN ASPART [NOVOLOG] 3 ML PEN SC SCH ×6 (00:39→20:36)
[2017-01-18] MEDS: IPRATROPIUM (HFA) 12.9 GM INHALER INH SCH ×4 (01:45→19:04)
[2017-01-18] MEDS: ALBUTEROL 18 GM INHALER INH SCH ×4 (01:45→19:04)
[2017-01-18] MEDS: PROPOFOL 100 ML IV SCH ×3 (02:57→18:20)
[2017-01-18 05:50] LABS: ABNORMAL IP MESSAGE 1; BASOPHILS % 0.1 % (0.0-2.0); EOSINOPHILS # 0.2 10^3/ul (0.0-0.5); EOSINOPHILS % 0.9 % (0.0-7.0); HEMATOCRIT 26.5 % (37.0-47.0); HEMOGLOBIN 8.7 g/dl (12.0-16.0); LYMPHOCYTES # 0.3 10^3/ul (0.8-2.9); LYMPHOCYTES % 1.4 % (15.0-51.0); MEAN CORPUSCULAR HEMOGLOBIN 29.4 pg (29.0-33.0); MEAN CORPUSCULAR HGB CONC 32.8 g/dl (32.0-37.0); MEAN CORPUSCULAR VOLUME 89.5 fl (82.0-101.0); MEAN PLATELET VOLUME 10.9 fl (7.4-10.4); MONOCYTE # 0.7 10^3/ul (0.3-0.9); MONOCYTES % 3.1 % (0.0-11.0); NEUTROPHIL # 19.8 10^3/ul (1.6-7.5); NEUTROPHILS % 93.5 % (39.0-77.0); PLATELET COUNT 289 10^3/UL (140-415); RED BLOOD COUNT 2.96 10^6/ul (4.20-5.40); RED CELL DISTRIBUTION WIDTH 15.5 % (11.5-14.5); WHITE BLOOD COUNT 21.2 10^3/ul (4.8-10.8)
[2017-01-18 05:53] LABS: POSITIVE DIFF @See below
--- NOTE | 2017-01-18 06:00 | PN ---
DATE: 01/17/2017 SUBJECTIVE DATA: No events overnight. Patient is lying comfortably in bed, comfortable on vent. No fevers. LABORATORY AND DIAGNOSTIC DATA: WBC 15.8, H and H 8.8 and 27.4, platelets 305,000. Neutrophils 90. BUN 95, creatinine 3.34. INDWELLINGS: Endotracheal tube, NG tube, Dela Cruz catheter, femoral triple lumen catheter. ANTIMICROBIALS: Patient is off antibiotics. PHYSICAL EXAMINATION: VITAL SIGNS: Temperature 98, pulse 95, respirations 20, blood pressure 136/69, saturation 100 on vent. GENERAL: This is a well-developed fragile elderly woman who is in no distress. HEENT: Head atraumatic, normocephalic. Sclerae anicteric. Buccal mucosa dry. NECK: Supple. CHEST: Rise symmetrical. Breath sounds diminished at the bases. HEART: S1, S2. ABDOMEN: Soft, bowel sounds present. EXTREMITIES: Without cyanosis, bilateral trace edema. ASSESSMENT: 1. Status post septic shock. 2. Persistent leukocytosis, patient is on low-dose prednisone. Rule out recurrent urinary tract infection. 3. Resolved pneumonia. 4. Acute on chronic kidney disease. 5. History of kidney transplant, remains on immunosuppressive therapy. 6. Diabetes. 7. History of metastatic breast cancer. PLAN: Patient remains hemodynamically stable. We are going to repeat cultures given persistent leukocytosis and check her chest x-ray. Continue present care. Vent management as per Pulmonary. Will require trach and PEG as per Pulmonary note. Dictated By: Artis Castañeda NP /berkley/rhonda /Document#: [id number]
[2017-01-18 06:07] LABS: CALCIUM 9.5 mg/dl (8.4-10.2); CREATININE 3.8 mg/dl (0.44-1.00); MAGNESIUM 2.7 mg/dl (1.7-2.5); PHOSPHORUS 4.4 mg/dl (2.5-4.9); POTASSIUM 4.9 mmol/L (3.5-5.1)
[2017-01-18] MEDS: LEVOTHYROXINE 75 MCG TAB NGT SCH (06:30)
--- NOTE | 2017-01-18 08:12 | PN ---
DATE: 01/18/2017 SUBJECTIVE DATA: The patient remains critically ill, on full ventilatory support. The patient's urinary output has been marginal. No other events noted. No hemoptysis, hematemesis, hematochezia. OBJECTIVE DATA: VITAL SIGNS: Blood pressure is 115/53, respirations 13, pulse 77, temperature 98.2. HEENT: Head is normocephalic. NECK: Supple. HEART: Regular rate. LUNGS: Diminished breath sounds at the base. ABDOMEN: Soft, nontender to palpation. No guarding. EXTREMITIES: Negative for clubbing, cyanosis. Positive edema. DERMATOLOGIC: No rashes. MUSCULOSKELETAL: No joint effusion. NEUROLOGIC: Unchanged exam. MEDICATIONS: Reviewed. LABORATORY AND DIAGNOSTIC DATA: Shows a white count 21.2, hemoglobin 9.7, hematocrit 26.5, platelet count 289. Sodium 123, potassium 4.9, chloride 92, BUN 102, creatinine 3.80. The patient's chest x-ray was reviewed. ASSESSMENT AND PLAN: 1. 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 Etiology of acute kidney injury secondary to acute tubular necrosis due to septic shock and nephrotoxicity. The patient has had no significant renal recovery despite supportive care. At this point, will discuss with the patient's brother to initiate hemodialysis. Will monitor closely. 2. Acute congestive heart failure. Will continue to monitor. The patient did not respond to diuretic challenge. 3. Hyponatremia secondary to acute kidney injury. Continue to limit free water intake. 4. Paroxysmal atrial fibrillation. Continue current treatment plan. Currently sinus rhythm. 5. Sepsis, status post shock. The patient's etiology secondary to pneumonia, fungal urinary tract infection. Continue current medical management. 6. History of end-stage renal disease. Status post renal transplant with chronic allograft failure. The patient is currently in acute kidney injury as stated above. Continue to monitor. Continue current immunosuppressive regimen. 7. Hypothyroidism. Continue Synthroid. 8. Anemia. Monitor H and H levels. 9. Diabetes. Continue Accu-Cheks and sliding scale. 10. Pulmonary hypertension. Continue to monitor. 11. Anxiety and depression. 12. Dysphagia. Continue tube feeding. 13. History of breast cancer. 14. Hematuria from Dela Cruz trauma, improving. 15. Gastrointestinal and deep venous thrombosis prophylaxis. Please note, I spent over 30 minutes of critical care time with this patient. Dictated By: Cameron Rosenthal DO /[email or web address]/[email or web address] /Document#: [id number]
[2017-01-18] MEDS: OXCARBAZEPINE 300 MG TAB NGT SCH ×2 (08:18→20:37)
[2017-01-18] MEDS: LORATADINE 10 MG TAB NGT SCH (08:18)
[2017-01-18] MEDS: BISACODYL 10 MG SUPP PR SCH (08:18)
[2017-01-18] MEDS: MAGNESIUM OXIDE 400 MG TAB NGT SCH (08:18)
[2017-01-18] MEDS: predniSONE 1 MG TAB PO SCH (08:19)
[2017-01-18] MEDS: SERTRALINE 50 MG TAB NGT SCH (08:19)
[2017-01-18] MEDS: APIXABAN 5 MG TABLET NGT SCH (08:20)
[2017-01-18] MEDS: predniSONE 5 MG TAB PO SCH (08:20)
[2017-01-18] MEDS: ASCORBIC ACID 500 MG TAB NGT SCH ×2 (08:20→20:37)
[2017-01-18] MEDS: METOPROLOL 25 MG TAB NGT SCH ×2 (08:20→20:38)
[2017-01-18] MEDS: TACROLIMUS 0.5 MG CAP NGT SCH ×2 (08:21→20:37)
[2017-01-18] MEDS: FLUTICASONE 0.05% 16 GM NAS SPRAY NASAL SCH (08:21)
[2017-01-18] MEDS: FAMOTIDINE 20 MG INJ IV SCH (08:22)
[2017-01-18] MEDS: BALSAM PERU/CASTOR OIL 60 GM TUBE TOP SCH (08:23)
[2017-01-18] MEDS: SILDENAFIL 20 MG TAB NGT SCH ×3 (08:25→20:38)
[2017-01-18] MEDS: DOCUSATE SODIUM 10 MG/ML (10ML CUP) NGT SCH ×2 (08:25→20:37)
[2017-01-18] MEDS ORDERED: TACROLIMUS 0.5 MG CAP PO SCH (08:35)
[2017-01-18] MEDS: BUDESONIDE (NEB) 0.25 MG/2 ML AMP NEB SCH ×2 (09:32→21:04)
[2017-01-18] MEDS: INSULIN GLARGINE [LANtus] 3 ML PEN SC SCH (10:36)
--- NOTE | 2017-01-18 11:12 | CONS ---
Date/Time of Note Date/Time of Note DATE: 01/18/17 TIME: 11:00 Assessment/Plan Assessment/Plan Additional Assessment/Plan Ventilator setting; AC of 12, tidal volume 450, PEEP of 5, 30% FiO2. Patient is currently on propofol at 30 mics per kilogram per minute. Assessment and recommendations; 1. Patient admitted with combination of pneumonia as well as CHF. 2. History of chronic renal failure, on chronic immunosuppression due to renal transplant. 3. Worsening renal function. 4. History of hypertension, diabetes, hypo-thyroidism. 5. Patient possibly getting uremic. 6. Volume overload. 7. Failure to be weaned from ventilator despite numerous attempts due to multiple comorbidities. 8. Severe generalized deconditioning 9. Pleural effusion status post right thoracentesis.. Continue current supportive care. Patient likely will need to have a tracheostomy performed. She may also need hemodialysis performed. Prognosis is guarded. Consultation Date/Type/Reason Admit Date/Time Jan 05, 2017 at 00:15 Initial Consult Date 01/05/17 Type of Consultation: Pulmonary/critical care Referring Provider: SUSAN SIMENTAL DO 24 HR Interval Summary Free Text/Dictation Patient's condition remains critical. Patient has failed numerous weaning trials from ventilator. Also failed 1 extubation attempt earlier. General exam; elderly woman, orally intubated, sedated and currently in no distress. Exam/Review of Systems Vital Signs Vitals Vital Signs Date Time Temp Pulse Resp B/P Pulse Ox O2 Delivery O2 Flow Rate FiO2 01/18/17 10:30 70 14 106/57 100 01/18/17 10:00 Mechanical Ventilator 01/18/17 09:37 30 01/18/17 08:00 97.8 Intake and Output 01/17/17 01/17/17 01/18/17 15:00 23:00 07:00 Intake Total 40 ml 264.75 ml 411.98 ml Output Total 46 ml 45 ml 50 ml Balance -6 ml 219.75 ml 361.98 ml Exam HEENT exam; supple neck, positive JVD. No lymphadenopathy. Midline trachea. No thyromegaly. Orally intubated. Patient has fair dentition. Pupils are small bilaterally. Chest exam; diminished breath sounds bilaterally. S1-S2 audible, no murmurs. Regular rhythm. Abdomen exam; soft, nondistended. No organomegaly. Bowel sounds audible. Extremity exam; 1+ generalized anasarca. Patient does have multiple ecchymosis involving all 4 extremities. CHOCOLATE PACKER exam; patient is sedated. Results Result Diagram: 01/18/17 0446 01/18/17 0446 Results 24 hrs Laboratory Tests Test 01/17/17 13:14 01/17/17 18:24 01/17/17 20:45 01/18/17 00:38 Bedside Glucose 198 155 158 147 Test 01/18/17 04:46 01/18/17 05:16 01/18/17 08:27 White Blood Count 21.2 #H Red Blood Count 2.96 L Hemoglobin 8.7 L Hematocrit 26.5 L Mean Corpuscular Volume 89.5 Mean Corpuscular Hemoglobin 29.4 Mean Corpuscular Hemoglobin Concent 32.8 Red Cell Distribution Width 15.5 H Platelet Count 289 Mean Platelet Volume 10.9 H Neutrophils % 93.5 H Lymphocytes % 1.4 L Monocytes % 3.1 Eosinophils % 0.9 Basophils % 0.1 Nucleated Red Blood Cells % 0.0 Neutrophils # 19.8 H Lymphocytes # 0.3 L Monocytes # 0.7 Eosinophils # 0.2 Basophils # 0.0 Nucleated Red Blood Cells # 0.0 Sodium Level 123 L Potassium Level 4.9 Chloride Level 92 L Carbon Dioxide Level 21 Anion Gap 15 Blood Urea Nitrogen 102 H Creatinine 3.80 H Glucose Level 140 Calcium Level 9.5 Phosphorus Level 4.4 Magnesium Level 2.7 H Bedside Glucose 150 162 Medications Medications Current Medications Naloxone HCl (Narcan) 0.4 mg Q4 PRN IV SEDATION; Start 01/05/17 at 01:30 Bisacodyl (Dulcolax Supp) 10 mg DAILY DE Last administered on 01/18/17 08:18; Admin Dose 10 MG; Start 01/06/17 at 09:00 Budesonide (Pulmicort (Neb)) 0.25 mg BID NEB Last administered on 01/18/17 09: 32; Admin Dose 0.25 MG; Start 01/05/17 at 10:30 Fluticasone Propionate (Flonase 0.05% Nasal) 1 spray DAILY NASAL Last administered on 01/18/17 08:21; Admin Dose 1 SPRAY; Start 01/05/17 at 11:00 Fulvestrant (Faslodex) 500 mg Q28D IM ; Start 01/29/17 at 09:00 Insulin Glargine (Lantus) 18 unit DAILY SC Last administered on 01/18/17 10:36 ; Admin Dose 18 UNIT; Start 01/05/17 at 10:30 Magnesium Hydroxide (Milk Of Mag) 30 ml BID PRN PO CONSTIPATION Last administered on 01/16/17 09:09; Admin Dose 30 ML; Start 01/05/17 at 10:30 Nitroglycerin (Nitroglycerin 2% Oint) 0.5 inch Q6 PRN TD CHEST PAIN; Start 03/13 at 10:30 Ondansetron HCl (Zofran Inj) 4 mg Q6H PRN IV NAUSEA Last administered on 09:09; Admin Dose 4 MG; Start 01/05/17 at 10:30 Prednisone (Prednisone) 5 mg DAILY PO Last administered on 01/18/17 08:20; Admin Dose 5 MG; Start 01/05/17 at 12:00 Prednisone (Prednisone) 3 mg DAILY PO Last administered on 01/18/17 08:19; Admin Dose 3 MG; Start 01/05/17 at 12:00 Miscellaneous Information 1 ea NOTE XX ; Start 01/05/17 at 11:00 Glucose (Glutose) 15 gm Q15M PRN PO DECREASED GLUCOSE; Start 01/05/17 at 11:00 Glucose (Glutose) 22.5 gm Q15M PRN PO DECREASED GLUCOSE; Start 01/05/17 at 11: 00 Dextrose (D50w Syringe) 25 ml Q15M PRN IV DECREASED GLUCOSE Last administered on 01/09/17 04:45; Admin Dose 25 ML; Start 01/05/17 at 11:00 Dextrose (D50w Syringe) 50 ml Q15M PRN IV DECREASED GLUCOSE Last administered on 01/08/17 21:33; Admin Dose 50 ML; Start 01/05/17 at 11:00 Glucagon (Glucagen) 1 mg Q15M PRN IM DECREASED GLUCOSE; Start 01/05/17 at 11:00 Glucose (Glutose) 15 gm Q15M PRN BUCCAL DECREASED GLUCOSE; Start 01/05/17 at 11 :00 Insulin Aspart NOVOLOG *MILD* ALGORI... Q4 SC Last administered on 01/18/17 08 :32; Admin Dose 1 UNIT; Start 01/05/17 at 13:00 Fentanyl 100 ml @ 2.5 mls/hr TITRATE IV Last administered on 01/07/17 02:25; Admin Dose 7.5 MLS/HR; Start 01/06/17 at 09:30 Norepinephrine/ Dextrose (Levophed/D5W) 500 ml @ 0 mls/hr TITRATE IV ; Start 04/12 at 13:30 Bumetanide 1 mg 1 mg BID IV Last administered on 01/13/17 21:06; Admin Dose 1 MG; Start 01/08/17 at 09:00; Status Future Hold Propofol (Diprivan) 100 ml @ 2.19 mls/hr Q12H IV Last administered on 10:40; Admin Dose 13.14 MLS/HR; Start 01/08/17 at 16:00 Miscellaneous Information (*Order Clarification Bulletin) FULVESTRANT 250 MG/5 ML SYG: PLE... Q8H XX ; Start 01/26/17 at 09:00 Famotidine (Pepcid Iv) 20 mg DAILY IV Last administered on 01/18/17 08:22; Admin Dose 20 MG; Start 01/16/17 at 09:00 Acetaminophen (Tylenol Tab) 650 mg Q6H PRN NGT PAIN AND OR ELEVATED TEMP; Start 01/17/17 at 22:30 Apixaban (Eliquis) 2.5 mg BID NGT Last administered on 01/18/17 08:20; Admin Dose 2.5 MG; Start 01/17/17 at 21:00 Ascorbic Acid (Vitamin C) 500 mg BID NGT Last administered on 01/18/17 08:20; Admin Dose 500 MG; Start 01/17/17 at 21:00 Levothyroxine Sodium (Synthroid) 75 mcg DAILY@06 NGT Last administered on 06:30; Admin Dose 75 MCG; Start 01/18/17 at 06:00 Loratadine (Claritin) 10 mg DAILY NGT Last administered on 01/18/17 08:18; Admin Dose 10 MG; Start 01/18/17 at 09:00 Magnesium Oxide (Mag-Ox 400) 400 mg DAILY NGT Last administered on 01/18/17 08 :18; Admin Dose 400 MG; Start 01/18/17 at 09:00 Metoprolol Tartrate (Lopressor) 25 mg BID NGT Last administered on 01/18/17 08 :20; Admin Dose 25 MG; Start 01/17/17 at 21:00 Mirtazapine (Remeron) 15 mg HS NGT Last administered on 01/17/17 20:47; Admin Dose 15 MG; Start 01/17/17 at 21:00 Oxcarbazepine (Trileptal) 600 mg BID NGT Last administered on 01/18/17 08:18; Admin Dose 600 MG; Start 01/17/17 at 21:00 Senna (Senokot) 1 tab HS NGT Last administered on 01/17/17 20:48; Admin Dose 1 TAB; Start 01/17/17 at 21:00 Sertraline HCl (Zoloft) 75 mg DAILY NGT Last administered on 01/18/17 08:19; Admin Dose 75 MG; Start 01/18/17 at 09:00 Sildenafil Citrate (Revatio) 20 mg TID NGT Last administered on 01/18/17 08:25 ; Admin Dose 20 MG; Start 01/17/17 at 21:00 Tacrolimus (Prograf) 2 mg QPM NGT Last administered on 01/17/17 20:47; Admin Dose 2 MG; Start 01/17/17 at 21:00 Docusate Sodium (Colace Liquid Cup) 100 mg BID NGT Last administered on 08:25; Admin Dose 100 MG; Start 01/17/17 at 21:00 JOELLE INFANTE Jan 18, 2017 11:12
--- NOTE | 2017-01-18 13:26 | PN ---
DATE: 01/18/2017 PLAN: Pending final cultures. Urinalysis revealed many yeast as well as trace leukocyte esterase. We will start her on fluconazole for now or equivalent if there is any drug interaction. Await for final cultures. Patient has no femoral line. Her triple lumen catheter was discontinued. She has peripheral IV. Dictated By: Artis Castañeda NP /[email or web address] /Document#: [id number]
--- NOTE | 2017-01-18 13:40 | PN ---
DATE: 01/18/2017 SUBJECTIVE DATA: No events overnight. No fevers. The patient is intubated and sedated, in no distress. Temperature 97.8, pulse is 70, respirations 14, blood pressure 106/57. Saturation 100 on 30 FiO2. LABORATORY: WBC 21.2. H and H 8.7 and 26.5, platelets 289,000, neutrophils 93.5. BUN 102, creatinine 3.80. DIAGNOSTICS: Chest x-ray from yesterday revealed stable perihilar infiltrates. MICROBIOLOGY: Blood culture and urine culture ordered yesterday are pending. INDWELLINGS: Endotracheal tube, NG-tube. Dela Cruz catheter. OBJECTIVE DATA: PHYSICAL EXAMINATION: GENERAL: The patient is a fragile, chronically ill-appearing, elderly woman, who is noncommunicative, lying comfortably in bed. HEENT: Head atraumatic, normocephalic. Sclerae anicteric. Buccal mucosa dry. NECK: Supple. CHEST: Rise symmetrical. Breath sounds diminished at the bases. HEART: S1, S2. ABDOMEN: Soft. Bowel sounds hypoactive. EXTREMITIES: Without cyanosis. Bilateral trace edema. ASSESSMENT: 1. Persistent leukocytosis of unclear etiology. So far, no fevers. Repeat cultures from yesterday are pending. 2. Acute on chronic kidney disease. 3. Acute respiratory failure. Status [id number]. 4. History of kidney transplant, on immunosuppressive therapy. 5. History of metastatic breast cancer. 6. Diabetes. PLAN: The patient remains hemodynamically stable. Again, with increasing leukocytosis. Cultures are pending. Dictated By: Artis Castañeda NP /[email or web address]/fred /Document#: [id number] SERAFIN
--- NOTE | 2017-01-18 14:13 | CONS ---
Date/Time of Note Date/Time of Note DATE: 01/18/17 TIME: 14:11 Assessment/Plan Assessment/Plan Additional Assessment/Plan 1. Respiratory failure. 2. Dysphagia. 3. Sepsis. 4. Renal failure. 5. Diabetes mellitus. 6. Breast cancer with metastasis. 7. Chronic obstructive pulmonary disease. 8. Pulmonary hypertension. 9. Atrial fibrillation. 10. Deconditioning 11. Status post renal transplant on immunosuppressive medication 12. Persistent leukocytosis 13. Respiratory failure reintubated Plan We will proceed with the placement of G-tube Patient will also need tracheostomy line if uremia worsens then she may require dialysis. Consultation Date/Type/Reason Admit Date/Time Jan 05, 2017 at 00:15 Initial Consult Date 01/05/17 Type of Consultation: Pulmonary/critical care Referring Provider: SUSAN SIMENTAL DO 24 HR Interval Summary Subjective hx not possible: pt non-verbal, pt critical Exam/Review of Systems Vital Signs Vitals Vital Signs Date Time Temp Pulse Resp B/P Pulse Ox O2 Delivery O2 Flow Rate FiO2 01/18/17 13:42 77 14 100 30 01/18/17 10:30 106/57 01/18/17 10:00 Mechanical Ventilator 01/18/17 08:00 97.8 Intake and Output 01/17/17 01/17/17 01/18/17 15:00 23:00 07:00 Intake Total 40 ml 264.75 ml 411.98 ml Output Total 46 ml 45 ml 50 ml Balance -6 ml 219.75 ml 361.98 ml Exam Neck: non-tender, supple Respiratory: other (And is on vent) Cardiovascular: nl pulses, regular rate and rhythm Gastrointestinal: nl liver, spleen, non-tender, soft Results Result Diagram: 01/18/17 0446 01/18/17 0446 Results 24 hrs Laboratory Tests Test 01/17/17 18:24 01/17/17 20:45 01/18/17 00:38 01/18/17 04:46 Bedside Glucose 155 158 147 White Blood Count 21.2 #H Red Blood Count 2.96 L Hemoglobin 8.7 L Hematocrit 26.5 L Mean Corpuscular Volume 89.5 Mean Corpuscular Hemoglobin 29.4 Mean Corpuscular Hemoglobin Concent 32.8 Red Cell Distribution Width 15.5 H Platelet Count 289 Mean Platelet Volume 10.9 H Neutrophils % 93.5 H Lymphocytes % 1.4 L Monocytes % 3.1 Eosinophils % 0.9 Basophils % 0.1 Nucleated Red Blood Cells % 0.0 Neutrophils # 19.8 H Lymphocytes # 0.3 L Monocytes # 0.7 Eosinophils # 0.2 Basophils # 0.0 Nucleated Red Blood Cells # 0.0 Sodium Level 123 L Potassium Level 4.9 Chloride Level 92 L Carbon Dioxide Level 21 Anion Gap 15 Blood Urea Nitrogen 102 H Creatinine 3.80 H Glucose Level 140 Calcium Level 9.5 Phosphorus Level 4.4 Magnesium Level 2.7 H Test 01/18/17 05:16 01/18/17 08:27 Bedside Glucose 150 162 Medications Medications Current Medications Naloxone HCl (Narcan) 0.4 mg Q4 PRN IV SEDATION; Start 01/05/17 at 01:30 Bisacodyl (Dulcolax Supp) 10 mg DAILY [place] Last administered on 01/18/17 08:18; Admin Dose 10 MG; Start 01/06/17 at 09:00 Budesonide (Pulmicort (Neb)) 0.25 mg BID NEB Last administered on 01/18/17 09: 32; Admin Dose 0.25 MG; Start 01/05/17 at 10:30 Fluticasone Propionate (Flonase 0.05% Nasal) 1 spray DAILY NASAL Last administered on 01/18/17 08:21; Admin Dose 1 SPRAY; Start 01/05/17 at 11:00 Fulvestrant (Faslodex) 500 mg Q28D IM ; Start 01/29/17 at 09:00 Insulin Glargine (Lantus) 18 unit DAILY SC Last administered on 01/18/17 10:36 ; Admin Dose 18 UNIT; Start 01/05/17 at 10:30 Magnesium Hydroxide (Milk Of Mag) 30 ml BID PRN PO CONSTIPATION Last administered on 01/16/17 09:09; Admin Dose 30 ML; Start 01/05/17 at 10:30 Nitroglycerin (Nitroglycerin 2% Oint) 0.5 inch Q6 PRN TD CHEST PAIN; Start 03/13 at 10:30 Ondansetron HCl (Zofran Inj) 4 mg Q6H PRN IV NAUSEA Last administered on 09:09; Admin Dose 4 MG; Start 01/05/17 at 10:30 Prednisone (Prednisone) 5 mg DAILY PO Last administered on 01/18/17 08:20; Admin Dose 5 MG; Start 01/05/17 at 12:00 Prednisone (Prednisone) 3 mg DAILY PO Last administered on 01/18/17 08:19; Admin Dose 3 MG; Start 01/05/17 at 12:00 Miscellaneous Information 1 ea NOTE XX ; Start 01/05/17 at 11:00 Glucose (Glutose) 15 gm Q15M PRN PO DECREASED GLUCOSE; Start 01/05/17 at 11:00 Glucose (Glutose) 22.5 gm Q15M PRN PO DECREASED GLUCOSE; Start 01/05/17 at 11: 00 Dextrose (D50w Syringe) 25 ml Q15M PRN IV DECREASED GLUCOSE Last administered on 01/09/17 04:45; Admin Dose 25 ML; Start 01/05/17 at 11:00 Dextrose (D50w Syringe) 50 ml Q15M PRN IV DECREASED GLUCOSE Last administered on 01/08/17 21:33; Admin Dose 50 ML; Start 01/05/17 at 11:00 Glucagon (Glucagen) 1 mg Q15M PRN IM DECREASED GLUCOSE; Start 01/05/17 at 11:00 Glucose (Glutose) 15 gm Q15M PRN BUCCAL DECREASED GLUCOSE; Start 01/05/17 at 11 :00 Insulin Aspart NOVOLOG *MILD* ALGORI... Q4 SC Last administered on 01/18/17 08 :32; Admin Dose 1 UNIT; Start 01/05/17 at 13:00 Fentanyl 100 ml @ 2.5 mls/hr TITRATE IV Last administered on 01/07/17 02:25; Admin Dose 7.5 MLS/HR; Start 01/06/17 at 09:30 Norepinephrine/ Dextrose (Levophed/D5W) 500 ml @ 0 mls/hr TITRATE IV ; Start 04/12 at 13:30 Bumetanide 1 mg 1 mg BID IV Last administered on 01/13/17 21:06; Admin Dose 1 MG; Start 01/08/17 at 09:00; Status Future Hold Propofol (Diprivan) 100 ml @ 2.19 mls/hr Q12H IV Last administered on 10:40; Admin Dose 13.14 MLS/HR; Start 01/08/17 at 16:00 Miscellaneous Information (*Order Clarification Bulletin) FULVESTRANT 250 MG/5 ML SYG: PLE... Q8H XX ; Start 01/26/17 at 09:00 Famotidine (Pepcid Iv) 20 mg DAILY IV Last administered on 01/18/17 08:22; Admin Dose 20 MG; Start 01/16/17 at 09:00 Acetaminophen (Tylenol Tab) 650 mg Q6H PRN NGT PAIN AND OR ELEVATED TEMP; Start 01/17/17 at 22:30 Apixaban (Eliquis) 2.5 mg BID NGT Last administered on 01/18/17 08:20; Admin Dose 2.5 MG; Start 01/17/17 at 21:00 Ascorbic Acid (Vitamin C) 500 mg BID NGT Last administered on 01/18/17 08:20; Admin Dose 500 MG; Start 01/17/17 at 21:00 Levothyroxine Sodium (Synthroid) 75 mcg DAILY@06 NGT Last administered on 06:30; Admin Dose 75 MCG; Start 01/18/17 at 06:00 Loratadine (Claritin) 10 mg DAILY NGT Last administered on 01/18/17 08:18; Admin Dose 10 MG; Start 01/18/17 at 09:00 Magnesium Oxide (Mag-Ox 400) 400 mg DAILY NGT Last administered on 01/18/17 08 :18; Admin Dose 400 MG; Start 01/18/17 at 09:00 Metoprolol Tartrate (Lopressor) 25 mg BID NGT Last administered on 01/18/17 08 :20; Admin Dose 25 MG; Start 01/17/17 at 21:00 Mirtazapine (Remeron) 15 mg HS NGT Last administered on 01/17/17 20:47; Admin Dose 15 MG; Start 01/17/17 at 21:00 Oxcarbazepine (Trileptal) 600 mg BID NGT Last administered on 01/18/17 08:18; Admin Dose 600 MG; Start 01/17/17 at 21:00 Senna (Senokot) 1 tab HS NGT Last administered on 01/17/17 20:48; Admin Dose 1 TAB; Start 01/17/17 at 21:00 Sertraline HCl (Zoloft) 75 mg DAILY NGT Last administered on 01/18/17 08:19; Admin Dose 75 MG; Start 01/18/17 at 09:00 Sildenafil Citrate (Revatio) 20 mg TID NGT Last administered on 01/18/17 08:25 ; Admin Dose 20 MG; Start 01/17/17 at 21:00 Tacrolimus (Prograf) 2 mg QPM NGT Last administered on 01/17/17 20:47; Admin Dose 2 MG; Start 01/17/17 at 21:00 Docusate Sodium (Colace Liquid Cup) 100 mg BID NGT Last administered on 08:25; Admin Dose 100 MG; Start 01/17/17 at 21:00 Fluconazole (Diflucan) 200 mg DAILY GTB ; Start 01/18/17 at 14:00 MEMO WILHELM MD Jan 18, 2017 14:13
--- NOTE | 2017-01-18 16:38 | OPR ---
DATE OF OPERATION: 01/18/2017 PREOPERATIVE DIAGNOSIS: Renal failure. POSTOPERATIVE DIAGNOSIS: Renal failure. OPERATION PERFORMED: Right femoral hemodialysis catheter placement. SURGEON: Jaswinder Banks MD ANESTHESIA: Local. OPERATIVE PROCEDURE: Complications, alternatives, therapies explained to the patient and the family. Consent obtained. Patient was placed in the supine position, prepped and draped in usual sterile fashion. One percent lidocaine was to the operation for local anesthesia. Access was gained in the right common femoral vein. Guidewire was advanced without any difficulty. Subcutaneous tissue was dilated. A 25 cm dialysis catheter advanced over guidewire, secured to skin using silk sutures. Both ports of the catheter were aspirated and injected using saline solution. Patient tolerated procedure well. Dictated By: Jaswinder Banks MD /berkley/staci /Document#: [id number]
[2017-01-18] MEDS: FLUCONAZOLE 200 MG TAB GTB SCH (17:20)
--- NOTE | 2017-01-18 18:04 | CONS ---
Date/Time of Note Date/Time of Note DATE: 01/18/17 TIME: 18:03 Assessment/Plan Assessment/Plan Chief Complaint/Hosp Course History of breast cancer with lung metastasis. The patient is on medical management. on Faslodex as outpt Anemia. Monitor hemoglobin and hematocrit levels. LEUKOCYTOSIS REACTIVE MONITOR s/p cardiopulmonary arrest: Most likely due to pulmonary arrest P afib: currently in NSR History of renal failure status post renal transplant Acute on chronic hypoxemic hypercapnic respiratory failure status post tracheostomy currently on the vent POST THORACENTESIS CYTOLOGY- neg Shock: currently blood pressure has improved Chronic obstructive pulmonary disease exacerbation. Congestive heart failure exacerbation. Hypothyroidism. Diabetes. Continue current insulin regimen. Pulmonary hypertension. Depression. Problems: Consultation Date/Type/Reason Admit Date/Time Jan 05, 2017 at 00:15 Initial Consult Date 01/05/17 [facility] Referring Provider: SUSAN SIMENTAL DO 24 HR Interval Summary Free Text/Dictation ALL NOTED NO NEW EVENTS Exam/Review of Systems Vital Signs Vitals Vital Signs Date Time Temp Pulse Resp B/P Pulse Ox O2 Delivery O2 Flow Rate FiO2 01/18/17 17:30 80 19 109/48 99 01/18/17 17:30 30 01/18/17 17:00 Mechanical Ventilator 01/18/17 16:00 97.9 Intake and Output 01/17/17 01/17/17 01/18/17 15:00 23:00 07:00 Intake Total 40 ml 264.75 ml 411.98 ml Output Total 46 ml 45 ml 50 ml Balance -6 ml 219.75 ml 361.98 ml Exam HEENT: Head is normocephalic. NECK: Supple. HEART: Regular rate. LUNGS: Show diminished breath sounds base. Positive rhonchi. ABDOMEN: Soft, nontender to palpation. No rebound or guarding. EXTREMITIES: Negative for clubbing, cyanosis. No edema. DERMATOLOGIC: Clean. No rashes. MUSCULOSKELETAL: No joint effusion. NEUROLOGIC: No change in exam. Results Result Diagram: 01/18/17 0446 01/18/17 0446 Results 24 hrs Laboratory Tests Test 01/17/17 18:24 01/17/17 20:45 01/18/17 00:38 01/18/17 04:46 Bedside Glucose 155 158 147 White Blood Count 21.2 #H Red Blood Count 2.96 L Hemoglobin 8.7 L Hematocrit 26.5 L Mean Corpuscular Volume 89.5 Mean Corpuscular Hemoglobin 29.4 Mean Corpuscular Hemoglobin Concent 32.8 Red Cell Distribution Width 15.5 H Platelet Count 289 Mean Platelet Volume 10.9 H Neutrophils % 93.5 H Lymphocytes % 1.4 L Monocytes % 3.1 Eosinophils % 0.9 Basophils % 0.1 Nucleated Red Blood Cells % 0.0 Neutrophils # 19.8 H Lymphocytes # 0.3 L Monocytes # 0.7 Eosinophils # 0.2 Basophils # 0.0 Nucleated Red Blood Cells # 0.0 Sodium Level 123 L Potassium Level 4.9 Chloride Level 92 L Carbon Dioxide Level 21 Anion Gap 15 Blood Urea Nitrogen 102 H Creatinine 3.80 H Glucose Level 140 Calcium Level 9.5 Phosphorus Level 4.4 Magnesium Level 2.7 H Test 01/18/17 05:16 01/18/17 08:27 01/18/17 15:01 01/18/17 17:21 Bedside Glucose 150 162 162 163 Medications Medications Current Medications Naloxone HCl (Narcan) 0.4 mg Q4 PRN IV SEDATION; Start 01/05/17 at 01:30 Bisacodyl (Dulcolax Supp) 10 mg DAILY OR Last administered on 01/18/17 08:18; Admin Dose 10 MG; Start 01/06/17 at 09:00 Budesonide (Pulmicort (Neb)) 0.25 mg BID NEB Last administered on 01/18/17 09: 32; Admin Dose 0.25 MG; Start 01/05/17 at 10:30 Fluticasone Propionate (Flonase 0.05% Nasal) 1 spray DAILY NASAL Last administered on 01/18/17 08:21; Admin Dose 1 SPRAY; Start 01/05/17 at 11:00 Fulvestrant (Faslodex) 500 mg Q28D IM ; Start 01/29/17 at 09:00 Insulin Glargine (Lantus) 18 unit DAILY SC Last administered on 01/18/17 10:36 ; Admin Dose 18 UNIT; Start 01/05/17 at 10:30 Magnesium Hydroxide (Milk Of Mag) 30 ml BID PRN PO CONSTIPATION Last administered on 01/16/17 09:09; Admin Dose 30 ML; Start 01/05/17 at 10:30 Nitroglycerin (Nitroglycerin 2% Oint) 0.5 inch Q6 PRN TD CHEST PAIN; Start 03/13 at 10:30 Ondansetron HCl (Zofran Inj) 4 mg Q6H PRN IV NAUSEA Last administered on 09:09; Admin Dose 4 MG; Start 01/05/17 at 10:30 Prednisone (Prednisone) 5 mg DAILY PO Last administered on 01/18/17 08:20; Admin Dose 5 MG; Start 01/05/17 at 12:00 Prednisone (Prednisone) 3 mg DAILY PO Last administered on 01/18/17 08:19; Admin Dose 3 MG; Start 01/05/17 at 12:00 Miscellaneous Information 1 ea NOTE XX ; Start 01/05/17 at 11:00 Glucose (Glutose) 15 gm Q15M PRN PO DECREASED GLUCOSE; Start 01/05/17 at 11:00 Glucose (Glutose) 22.5 gm Q15M PRN PO DECREASED GLUCOSE; Start 01/05/17 at 11: 00 Dextrose (D50w Syringe) 25 ml Q15M PRN IV DECREASED GLUCOSE Last administered on 01/09/17 04:45; Admin Dose 25 ML; Start 01/05/17 at 11:00 Dextrose (D50w Syringe) 50 ml Q15M PRN IV DECREASED GLUCOSE Last administered on 01/08/17 21:33; Admin Dose 50 ML; Start 01/05/17 at 11:00 Glucagon (Glucagen) 1 mg Q15M PRN IM DECREASED GLUCOSE; Start 01/05/17 at 11:00 Glucose (Glutose) 15 gm Q15M PRN BUCCAL DECREASED GLUCOSE; Start 01/05/17 at 11 :00 Insulin Aspart NOVOLOG *MILD* ALGORI... Q4 SC Last administered on 01/18/17 17 :23; Admin Dose 1 UNIT; Start 01/05/17 at 13:00 Fentanyl 100 ml @ 2.5 mls/hr TITRATE IV Last administered on 01/07/17 02:25; Admin Dose 7.5 MLS/HR; Start 01/06/17 at 09:30 Norepinephrine/ Dextrose (Levophed/D5W) 500 ml @ 0 mls/hr TITRATE IV ; Start 04/12 at 13:30 Bumetanide 1 mg 1 mg BID IV Last administered on 01/13/17 21:06; Admin Dose 1 MG; Start 01/08/17 at 09:00; Status Future Hold Propofol (Diprivan) 100 ml @ 2.19 mls/hr Q12H IV Last administered on 10:40; Admin Dose 13.14 MLS/HR; Start 01/08/17 at 16:00 Miscellaneous Information (*Order Clarification Bulletin) FULVESTRANT 250 MG/5 ML SYG: PLE... Q8H XX ; Start 01/26/17 at 09:00 Famotidine (Pepcid Iv) 20 mg DAILY IV Last administered on 01/18/17 08:22; Admin Dose 20 MG; Start 01/16/17 at 09:00 Acetaminophen (Tylenol Tab) 650 mg Q6H PRN NGT PAIN AND OR ELEVATED TEMP; Start 01/17/17 at 22:30 Apixaban (Eliquis) 2.5 mg BID NGT Last administered on 01/18/17 08:20; Admin Dose 2.5 MG; Start 01/17/17 at 21:00; Status Future Hold Ascorbic Acid (Vitamin C) 500 mg BID NGT Last administered on 01/18/17 08:20; Admin Dose 500 MG; Start 01/17/17 at 21:00 Levothyroxine Sodium (Synthroid) 75 mcg DAILY@06 NGT Last administered on 06:30; Admin Dose 75 MCG; Start 01/18/17 at 06:00 Loratadine (Claritin) 10 mg DAILY NGT Last administered on 01/18/17 08:18; Admin Dose 10 MG; Start 01/18/17 at 09:00 Magnesium Oxide (Mag-Ox 400) 400 mg DAILY NGT Last administered on 01/18/17 08 :18; Admin Dose 400 MG; Start 01/18/17 at 09:00 Metoprolol Tartrate (Lopressor) 25 mg BID NGT Last administered on 01/18/17 08 :20; Admin Dose 25 MG; Start 01/17/17 at 21:00 Mirtazapine (Remeron) 15 mg HS NGT Last administered on 01/17/17 20:47; Admin Dose 15 MG; Start 01/17/17 at 21:00 Oxcarbazepine (Trileptal) 600 mg BID NGT Last administered on 01/18/17 08:18; Admin Dose 600 MG; Start 01/17/17 at 21:00 Senna (Senokot) 1 tab HS NGT Last administered on 01/17/17 20:48; Admin Dose 1 TAB; Start 01/17/17 at 21:00 Sertraline HCl (Zoloft) 75 mg DAILY NGT Last administered on 01/18/17 08:19; Admin Dose 75 MG; Start 01/18/17 at 09:00 Sildenafil Citrate (Revatio) 20 mg TID NGT Last administered on 01/18/17 15:02 ; Admin Dose 20 MG; Start 01/17/17 at 21:00 Tacrolimus (Prograf) 2 mg QPM NGT Last administered on 01/17/17 20:47; Admin Dose 2 MG; Start 01/17/17 at 21:00 Docusate Sodium (Colace Liquid Cup) 100 mg BID NGT Last administered on 08:25; Admin Dose 100 MG; Start 01/17/17 at 21:00 Fluconazole (Diflucan) 200 mg DAILY GTB Last administered on 01/18/17 17:20; Admin Dose 200 MG; Start 01/18/17 at 14:00 SHANICE DAVENPORT MD Jan 18, 2017 18:04
[2017-01-18] MEDS: SENNA TAB NGT SCH (20:37)
[2017-01-18] MEDS: MIRTAZAPINE 15 MG TAB NGT SCH (20:38)
[2017-01-19] VITALS (64 sets, daily range): BP systolic 96–153; BP diastolic 46–85; PULSE 61–118; RESP 12–21
[2017-01-19] MEDS: INSULIN ASPART [NOVOLOG] 3 ML PEN SC SCH ×6 (00:45→21:04)
[2017-01-19] MEDS: IPRATROPIUM (HFA) 12.9 GM INHALER INH SCH ×4 (01:01→19:59)
[2017-01-19] MEDS: ALBUTEROL 18 GM INHALER INH SCH ×4 (01:02→20:00)
[2017-01-19] MEDS: PROPOFOL 100 ML IV SCH ×3 (03:10→22:00)
[2017-01-19 05:26] LABS: ABNORMAL IP MESSAGE 1; BASOPHILS % 0.1 % (0.0-2.0); EOSINOPHILS # 0.2 10^3/ul (0.0-0.5); EOSINOPHILS % 0.8 % (0.0-7.0); HEMOGLOBIN 8.3 g/dl (12.0-16.0); LYMPHOCYTES # 0.3 10^3/ul (0.8-2.9); LYMPHOCYTES % 1.2 % (15.0-51.0); MEAN CORPUSCULAR HGB CONC 33.2 g/dl (32.0-37.0); MEAN CORPUSCULAR VOLUME 90.3 fl (82.0-101.0); MEAN PLATELET VOLUME 10.7 fl (7.4-10.4); MONOCYTE # 0.7 10^3/ul (0.3-0.9); MONOCYTES % 2.8 % (0.0-11.0); NEUTROPHIL # 22.7 10^3/ul (1.6-7.5); NEUTROPHILS % 94.1 % (39.0-77.0); PLATELET COUNT 269 10^3/UL (140-415); RED BLOOD COUNT 2.77 10^6/ul (4.20-5.40); RED CELL DISTRIBUTION WIDTH 15.5 % (11.5-14.5); WHITE BLOOD COUNT 24.2 10^3/ul (4.8-10.8)
[2017-01-19 05:47] LABS: POSITIVE DIFF @See below
[2017-01-19] MEDS: LEVOTHYROXINE 75 MCG TAB NGT SCH (05:52)
[2017-01-19 06:11] LABS: CALCIUM 9.4 mg/dl (8.4-10.2); CREATININE 3.46 mg/dl (0.44-1.00); MAGNESIUM 2.6 mg/dl (1.7-2.5); PHOSPHORUS 4.1 mg/dl (2.5-4.9); POTASSIUM 4.8 mmol/L (3.5-5.1)
--- NOTE | 2017-01-19 07:52 | PN ---
DATE: 01/19/2017 SUBJECTIVE DATA: The patient had hemodialysis yesterday, tolerated well without any complications. No other acute events noted. No hemoptysis, hematemesis, hematochezia. OBJECTIVE DATA: VITAL SIGNS: Blood pressure 115/51, respirations 13, pulse 73, temperature 98.0. HEENT: Head is normocephalic. NECK: Supple. HEART: Regular rate. LUNGS: Diminished breath sounds at the base. ABDOMEN: Soft, nontender to palpation. No rebound or guarding. EXTREMITIES: Negative for clubbing or cyanosis. Positive edema. DERMATOLOGIC: Clean. No rashes. MUSCULOSKELETAL: No joint effusion. NEUROLOGIC: Unchanged exam. MEDICATIONS: The patient's medications been reviewed. LABORATORY AND DIAGNOSTIC DATA: Sodium 124, potassium 4.8, chloride 94, BUN 19, creatinine 3.46, magnesium 2.6. White count 24.2, hemoglobin 8.3, hematocrit 25.0. Platelet count is 269,000. The patient's repeat blood cultures been negative today. ASSESSMENT AND PLAN: 1. 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 Etiology of acute kidney injury secondary to acute tubular necrosis due to septic shock. The patient is initiated on hemodialysis. Had hemodialysis yesterday, tolerated well. Plan for dialysis again today. 2. Acute congestive heart failure. Continue ultrafiltration dialysis. 3. Hyponatremia. Will continue to dialyze the patient 140 sodium bath. 4. Paroxysmal atrial fibrillation. Continue current treatment plan. 5. Sepsis status post shock. Etiology secondary to pneumonia. 6. Fungal urinary tract infection. The patient has a persistent leukocytosis. Will follow up with Infectious Disease. Continue current antibiotic regimen. Cultures have been reviewed. 7. History of end-stage renal disease. Status post renal transplant with chronic allograft failure. The patient is currently acute kidney injury stated above. Continue current immunosuppressive regimen. Prograf levels have been checked. 8. Hypothyroidism. Continue Synthroid. 9. Anemia. Monitor H and H levels. 10. Diabetes. Continue Accu-Cheks and sliding scale. 11. Pulmonary hypertension. Continue to monitor. 12. Dysphagia status post percutaneous endoscopic gastrostomy. Continue tube feeding. 13. Anxiety depression. 14. History of breast cancer. 15. Gastrointestinal and deep venous thrombosis prophylaxis. Please note, I spent over 30 minutes of critical care time with this patient. Dictated By: Cameron Rosenthal DO /[email or web address] /Document#: [id number]
[2017-01-19] MEDS: INSULIN GLARGINE [LANtus] 3 ML PEN SC SCH (09:00)
[2017-01-19] MEDS: FLUTICASONE 0.05% 16 GM NAS SPRAY NASAL SCH (09:15)
[2017-01-19] MEDS: BALSAM PERU/CASTOR OIL 60 GM TUBE TOP SCH (09:15)
[2017-01-19] MEDS: DOCUSATE SODIUM 10 MG/ML (10ML CUP) NGT SCH ×2 (09:23→20:57)
[2017-01-19] MEDS: OXCARBAZEPINE 300 MG TAB NGT SCH ×2 (09:23→20:58)
[2017-01-19] MEDS: FLUCONAZOLE 200 MG TAB GTB SCH (09:23)
[2017-01-19] MEDS: LORATADINE 10 MG TAB NGT SCH (09:24)
[2017-01-19] MEDS: SERTRALINE 50 MG TAB NGT SCH (09:24)
[2017-01-19] MEDS: TACROLIMUS 0.5 MG CAP NGT SCH ×2 (09:24→20:58)
[2017-01-19] MEDS: MAGNESIUM OXIDE 400 MG TAB NGT SCH (09:24)
[2017-01-19] MEDS: predniSONE 5 MG TAB PO SCH (09:24)
[2017-01-19] MEDS: ASCORBIC ACID 500 MG TAB NGT SCH ×2 (09:24→20:58)
[2017-01-19] MEDS: predniSONE 1 MG TAB PO SCH (09:25)
[2017-01-19] MEDS: BISACODYL 10 MG SUPP PR SCH (09:25)
[2017-01-19] MEDS: METOPROLOL 25 MG TAB NGT SCH ×2 (09:25→20:57)
[2017-01-19] MEDS: SILDENAFIL 20 MG TAB NGT SCH ×3 (09:26→21:00)
[2017-01-19] MEDS: FAMOTIDINE 20 MG INJ IV SCH (09:56)
[2017-01-19] MEDS: BUDESONIDE (NEB) 0.25 MG/2 ML AMP NEB SCH ×2 (10:03→20:00)
--- NOTE | 2017-01-19 10:55 | CONS ---
Date/Time of Note Date/Time of Note DATE: 01/19/17 TIME: 10:54 Consult Date/Type/Reason Admit Date/Time Jan 05, 2017 at 00:15 Initial Consult Date 01/05/17 Type of Consultation: Pulm Ordering Provider: SUSAN SIMENTAL DO Subjective Remains intubated sedated on mechanical ventilation appears comfortable at rest. Objective Vital Signs Date Time Temp Pulse Resp B/P Pulse Ox O2 Delivery O2 Flow Rate FiO2 01/19/17 10:30 92 16 134/70 100 Mechanical Ventilator 01/19/17 09:46 30 01/19/17 08:00 98.5 Intake and Output 01/18/17 01/18/17 01/19/17 15:00 23:00 07:00 Intake Total 320 ml 845.70 ml 98.55 ml Output Total 35 ml 1533 ml 22 ml Balance 285 ml -687.30 ml 76.55 ml Exam PHYSICAL EXAMINATION GENERAL: Elderly lady intubated on mechanical ventilation appears comfortable at rest VITAL SIGNS: see below. HEENT: Pupils equal, round, and reactive to light. CARDIAC: S1, S2, 1/6 systolic ejection murmur CHEST: Diminished air entry bilaterally. ABDOMEN: Mildly distended. Bowel sounds present no guarding or rebound EXTREMITIES: No cyanosis, clubbing edema +1 NEUROLOGIC: Generalized weakness Results/Medications Result Diagram: 01/19/17 0400 01/19/17 0400 Results 24 hrs Laboratory Tests Test 01/18/17 15:01 01/18/17 17:21 01/18/17 20:35 01/19/17 00:43 Bedside Glucose 162 163 176 167 Test 01/19/17 04:00 01/19/17 05:51 01/19/17 09:13 White Blood Count 24.2 H Red Blood Count 2.77 L Hemoglobin 8.3 L Hematocrit 25.0 L Mean Corpuscular Volume 90.3 Mean Corpuscular Hemoglobin 30.0 Mean Corpuscular Hemoglobin Concent 33.2 Red Cell Distribution Width 15.5 H Platelet Count 269 Mean Platelet Volume 10.7 H Neutrophils % 94.1 H Lymphocytes % 1.2 L Monocytes % 2.8 Eosinophils % 0.8 Basophils % 0.1 Nucleated Red Blood Cells % 0.0 Neutrophils # 22.7 H Lymphocytes # 0.3 L Monocytes # 0.7 Eosinophils # 0.2 Basophils # 0.0 Nucleated Red Blood Cells # 0.0 Sodium Level 124 L Potassium Level 4.8 Chloride Level 94 L Carbon Dioxide Level 22 Anion Gap 13 Blood Urea Nitrogen 90 H Creatinine 3.46 H Glucose Level 135 Calcium Level 9.4 Phosphorus Level 4.1 Magnesium Level 2.6 H Bedside Glucose 136 121 Medications Current Medications Naloxone HCl (Narcan) 0.4 mg Q4 PRN IV SEDATION; Start 01/05/17 at 01:30 Bisacodyl (Dulcolax Supp) 10 mg DAILY ME Last administered on 01/19/17 09:25; Admin Dose 10 MG; Start 01/06/17 at 09:00 Budesonide (Pulmicort (Neb)) 0.25 mg BID NEB Last administered on 01/19/17 10: 03; Admin Dose 0.25 MG; Start 01/05/17 at 10:30 Fluticasone Propionate (Flonase 0.05% Nasal) 1 spray DAILY NASAL Last administered on 01/19/17 09:15; Admin Dose 1 SPRAY; Start 01/05/17 at 11:00 Fulvestrant (Faslodex) 500 mg Q28D IM ; Start 01/29/17 at 09:00 Insulin Glargine (Lantus) 18 unit DAILY SC Last administered on 01/18/17 10:36 ; Admin Dose 18 UNIT; Start 01/05/17 at 10:30 Magnesium Hydroxide (Milk Of Mag) 30 ml BID PRN PO CONSTIPATION Last administered on 01/16/17 09:09; Admin Dose 30 ML; Start 01/05/17 at 10:30 Nitroglycerin (Nitroglycerin 2% Oint) 0.5 inch Q6 PRN TD CHEST PAIN; Start 03/13 at 10:30 Ondansetron HCl (Zofran Inj) 4 mg Q6H PRN IV NAUSEA Last administered on 09:09; Admin Dose 4 MG; Start 01/05/17 at 10:30 Prednisone (Prednisone) 5 mg DAILY PO Last administered on 01/19/17 09:24; Admin Dose 5 MG; Start 01/05/17 at 12:00 Prednisone (Prednisone) 3 mg DAILY PO Last administered on 01/19/17 09:25; Admin Dose 3 MG; Start 01/05/17 at 12:00 Miscellaneous Information 1 ea NOTE XX ; Start 01/05/17 at 11:00 Glucose (Glutose) 15 gm Q15M PRN PO DECREASED GLUCOSE; Start 01/05/17 at 11:00 Glucose (Glutose) 22.5 gm Q15M PRN PO DECREASED GLUCOSE; Start 01/05/17 at 11: 00 Dextrose (D50w Syringe) 25 ml Q15M PRN IV DECREASED GLUCOSE Last administered on 01/09/17 04:45; Admin Dose 25 ML; Start 01/05/17 at 11:00 Dextrose (D50w Syringe) 50 ml Q15M PRN IV DECREASED GLUCOSE Last administered on 01/08/17 21:33; Admin Dose 50 ML; Start 01/05/17 at 11:00 Glucagon (Glucagen) 1 mg Q15M PRN IM DECREASED GLUCOSE; Start 01/05/17 at 11:00 Glucose (Glutose) 15 gm Q15M PRN BUCCAL DECREASED GLUCOSE; Start 01/05/17 at 11 :00 Insulin Aspart NOVOLOG *MILD* ALGORI... Q4 SC Last administered on 01/19/17 00 :45; Admin Dose 1 UNIT; Start 01/05/17 at 13:00 Fentanyl 100 ml @ 2.5 mls/hr TITRATE IV Last administered on 01/07/17 02:25; Admin Dose 7.5 MLS/HR; Start 01/06/17 at 09:30 Norepinephrine/ Dextrose (Levophed/D5W) 500 ml @ 0 mls/hr TITRATE IV ; Start 04/12 at 13:30 Bumetanide 1 mg 1 mg BID IV Last administered on 01/13/17 21:06; Admin Dose 1 MG; Start 01/08/17 at 09:00; Status Future Hold Propofol (Diprivan) 100 ml @ 2.19 mls/hr Q12H IV Last administered on 03:10; Admin Dose 15.33 MLS/HR; Start 01/08/17 at 16:00 Miscellaneous Information (*Order Clarification Bulletin) FULVESTRANT 250 MG/5 ML SYG: PLE... Q8H XX ; Start 01/26/17 at 09:00 Famotidine (Pepcid Iv) 20 mg DAILY IV Last administered on 01/19/17 09:56; Admin Dose 20 MG; Start 01/16/17 at 09:00 Acetaminophen (Tylenol Tab) 650 mg Q6H PRN NGT PAIN AND OR ELEVATED TEMP; Start 01/17/17 at 22:30 Apixaban (Eliquis) 2.5 mg BID NGT Last administered on 01/18/17 08:20; Admin Dose 2.5 MG; Start 01/17/17 at 21:00; Status Future Hold Ascorbic Acid (Vitamin C) 500 mg BID NGT Last administered on 01/19/17 09:24; Admin Dose 500 MG; Start 01/17/17 at 21:00 Levothyroxine Sodium (Synthroid) 75 mcg DAILY@06 NGT Last administered on 06:30; Admin Dose 75 MCG; Start 01/18/17 at 06:00 Loratadine (Claritin) 10 mg DAILY NGT Last administered on 01/19/17 09:24; Admin Dose 10 MG; Start 01/18/17 at 09:00 Magnesium Oxide (Mag-Ox 400) 400 mg DAILY NGT Last administered on 01/19/17 09 :24; Admin Dose 400 MG; Start 01/18/17 at 09:00 Metoprolol Tartrate (Lopressor) 25 mg BID NGT Last administered on 01/19/17 09 :25; Admin Dose 25 MG; Start 01/17/17 at 21:00 Mirtazapine (Remeron) 15 mg HS NGT Last administered on 01/18/17 20:38; Admin Dose 15 MG; Start 01/17/17 at 21:00 Oxcarbazepine (Trileptal) 600 mg BID NGT Last administered on 01/19/17 09:23; Admin Dose 600 MG; Start 01/17/17 at 21:00 Senna (Senokot) 1 tab HS NGT Last administered on 01/18/17 20:37; Admin Dose 1 TAB; Start 01/17/17 at 21:00 Sertraline HCl (Zoloft) 75 mg DAILY NGT Last administered on 01/19/17 09:24; Admin Dose 75 MG; Start 01/18/17 at 09:00 Sildenafil Citrate (Revatio) 20 mg TID NGT Last administered on 01/19/17 09:26 ; Admin Dose 20 MG; Start 01/17/17 at 21:00 Tacrolimus (Prograf) 2 mg QPM NGT Last administered on 01/18/17 20:37; Admin Dose 2 MG; Start 01/17/17 at 21:00 Docusate Sodium (Colace Liquid Cup) 100 mg BID NGT Last administered on 09:23; Admin Dose 100 MG; Start 01/17/17 at 21:00 Fluconazole (Diflucan) 200 mg DAILY GTB Last administered on 01/19/17 09:23; Admin Dose 200 MG; Start 01/18/17 at 14:00 Assessment/Plan Chief Complaint/Hosp Course IMPRESSION: 1. Hypoxemic respiratory failure. Status post thoracentesis. Failed multiple CPAP weaning trials pending tracheostomy and G-tube. 2. Possible altered mental status secondary to opioids. Significant anxiety component. 3. History of renal transplant. Renal insufficiency. Hyponatremia. PLAN: 1. Continue supportive care 2. Decrease sedation as tolerated. 3. Continue ID recommendations 4. Renal recommendations. 5. DVT and GI prophylaxis. Critical care time 40 minutes. Prognosis guarded. Problems: LESA SAMUELS MD, [facility] Jan 19, 2017 10:55
[2017-01-19] MEDS ORDERED: LIDOCAINE 2% (SDV) 5 ML INJ ONE (11:36)
[2017-01-19] MEDS ORDERED: PROPOFOL 40 ML ONE (11:36)
--- NOTE | 2017-01-19 12:40 | PN ---
DATE: 01/19/2017 SUBJECTIVE DATA: No events overnight. The patient is intubated and sedated. Looks comfortable. Started on hemodialysis. VITAL SIGNS: Afebrile, temperature 98.5, pulse 92, respirations 16, blood pressure 134/70. Saturation 100 on ventilator. LABORATORY AND DIAGNOSTIC DATA: WBC 24.2, H and H 8.3 and 25, platelets 269,000. Neutrophils 94.1. BUN 90 and creatinine 3.46. MICROBIOLOGY: Blood cultures repeated on 01/17/2017 negative. Urine culture growing yeast. ANTIMICROBIALS: Patient was started on fluconazole yesterday. INDWELLINGS: Endotracheal tube, NG-tube, Dela Cruz, right femoral Bandar catheter with a pigtail. OBJECTIVE DATA: PHYSICAL EXAMINATION: GENERAL: This is a fragile, well-developed, elderly woman, who is intubated and sedated, and in no distress. HEENT: Head atraumatic, normocephalic. Sclerae anicteric. Buccal mucosa dry. NECK: Supple. Trachea midline. CHEST: Rise symmetrical. Breath sounds diminished at the bases. HEART: S1, S2. ABDOMEN: Soft, bowel sounds present. EXTREMITIES: With trace edema. SKIN: Without jaundice or rashes. Positive for anasarca. ASSESSMENT: 1. Systemic inflammatory response syndrome with ongoing leukocytosis, likely secondary to #2. 2. Fungal urinary tract infection. 3. Status post-pneumonia. 4. Acute on chronic kidney disease. 5. Acute respiratory failure. 6. Diabetes. 7. History of kidney transplant, on immunosuppressive therapy. 8. Metastatic breast cancer. PLAN: The patient remains hemodynamically stable. We are going to change fluconazole to oral voriconazole to cover Mellissa albicans, as the patient previously grew that from her endotracheal aspirate. Await for final cultures. Continue hemodialysis. Possible trach and PEG placement. Dictated By: Artis Castañeda NP /[email or web address]/fred /Document#: [id number]
[2017-01-19] MEDS ORDERED: CEFAZOLIN 1 GM/50 ML (PMX) 50 ML IVPB ONE (12:55)
--- NOTE | 2017-01-19 13:17 | OPPN ---
Date/Time of Note Date/Time of Note DATE: 01/19/17 TIME: 13:14 Proc Note GI Procedure Date 01/19/17 Pre-procedure Diagnosis Dysphagia Post-procedure Diagnosis Dysphagia Procedure Performed: Endoscopy Surgeon see signature line Print Color Operator none Anesthesia Type: MAC Tourniquet Time none EBL none Transfusion required none Grafts/Implants none Tubes/Drains none Complication(s) none Pt Condition post procedure: stable Disposition: other (ICU) Indications: other (Dysphagia) Operative\Procedure Findings PEG Procedure Description Dictated MEMO WILHELM MD Jan 19, 2017 13:17
--- NOTE | 2017-01-19 14:38 | GILP ---
DATE OF PROCEDURE: 01/19/2017 HISTORY OF PRESENT ILLNESS: A 71-year-old female with vent dependent respiratory failure, undergoing this procedure for long- term enteral nutrition. The risks of the procedure, related complications, anesthetic risks and alternatives discussed and informed consent was obtained. DESCRIPTION OF PROCEDURE: The procedure was done bedside. The patient was sedated by MICROSYSTEMS ENGINEER. Ancef was given prior to the procedure. After optimal sedation, scope was passed with much ease into the esophagus, advanced further down into stomach and duodenum. No evidence of obstruction. By transillumination and digital palpation technique appropriate site was chosen in the anterior abdominal wall. Stylet was sterilized with chlorhexidine solution. Tube was in xylocaine instilled by safe method. Small incision was made. Through that incision trocar stylet first into stomach. Stylet was removed through the hollow tip of the catheter. Insertion wire was passed and the entire procedure was completed by modified Ponsky technique. The patient was rescoped, the position of the internal bumper confirmed, excellent bumper secured. Tolerated the procedure very well. IMPRESSION: Successful placement of G-tube done. PLAN: Resume feeding through G-tube after 6 hours, all medication after 3 hours, abdominal binder all the time. Dictated By: Benjie Russell MD /berkley/ /Document#: [id number] CC: Cameron Rosenthal DO;*End*
--- NOTE | 2017-01-19 14:58 | CONS ---
Date/Time of Note Date/Time of Note DATE: 01/19/17 TIME: 14:57 Consult Date/Type/Reason Admit Date/Time Jan 05, 2017 at 00:15 Initial Consult Date 01/05/17 Type of Consultation: CARDIOLOGY Ordering Provider: SUSAN SIMENTAL DO Subjective CARDIOLOGY FOLLOW UP NOTE: D/W Staff and rhythm was reviewed. pt has remained in Afib. HR has been stable pt still remains intubated on vent. pt was extubated on 01/07/17 but had to be re -intubated again the same night due to resp distress even on BIPAP. NO reports of any chest pain or pressure S/P PEG 01/19/17 OBJECTIVE: General: intubated on vent. HEENT: NC/AT. pupils are equal. round. NECK: NO JVD. no stridor. CV:irregularly irregular. systolic murmur; no gallop or rubs. PULM: no wheezing, + mild rhonchi. GI: SOFT, NT, ND, no rebound or guarding S/P PEG Extremity: trace B/L LE edema. no clubbing. neuro: sedated now. Psych: unable to assess rectal: deferred : normal ECHO 12/16/16: Personally reviewed 1. Normal left ventricular systolic function. Normal left ventricular cavity size. Moderate concentric left ventricular hypertrophy. Ejection fraction is visually estimated at 65 %. Abnormal Diastolic Function. 2. There is moderate enlargement of left atrium. 3. Mild mitral leaflet calcification. Mild mitral annular calcification. Trace mitral regurgitation. 4. Aortic sclerosis without stenosis. Trace aortic valve regurgitation. 5. Normal appearance of the tricuspid valve. Estimated peak PA systolic pressure 38 mmHg. There is mild tricuspid regurgitation. Objective Vital Signs Date Time Temp Pulse Resp B/P Pulse Ox O2 Delivery O2 Flow Rate FiO2 01/19/17 13:49 78 17 100 30 01/19/17 12:30 124/57 Mechanical Ventilator 01/19/17 12:00 98.5 Intake and Output 01/18/17 01/18/17 01/19/17 15:00 23:00 07:00 Intake Total 320 ml 845.70 ml 113.88 ml Output Total 35 ml 1533 ml 22 ml Balance 285 ml -687.30 ml 91.88 ml Results/Medications Result Diagram: 01/19/17 0400 01/19/17 0400 Results 24 hrs Laboratory Tests Test 01/18/17 15:01 01/18/17 17:21 01/18/17 20:35 01/19/17 00:43 Bedside Glucose 162 163 176 167 Test 01/19/17 04:00 01/19/17 05:51 01/19/17 09:13 01/19/17 12:25 White Blood Count 24.2 H Red Blood Count 2.77 L Hemoglobin 8.3 L Hematocrit 25.0 L Mean Corpuscular Volume 90.3 Mean Corpuscular Hemoglobin 30.0 Mean Corpuscular Hemoglobin Concent 33.2 Red Cell Distribution Width 15.5 H Platelet Count 269 Mean Platelet Volume 10.7 H Neutrophils % 94.1 H Lymphocytes % 1.2 L Monocytes % 2.8 Eosinophils % 0.8 Basophils % 0.1 Nucleated Red Blood Cells % 0.0 Neutrophils # 22.7 H Lymphocytes # 0.3 L Monocytes # 0.7 Eosinophils # 0.2 Basophils # 0.0 Nucleated Red Blood Cells # 0.0 Sodium Level 124 L Potassium Level 4.8 Chloride Level 94 L Carbon Dioxide Level 22 Anion Gap 13 Blood Urea Nitrogen 90 H Creatinine 3.46 H Glucose Level 135 Calcium Level 9.4 Phosphorus Level 4.1 Magnesium Level 2.6 H Bedside Glucose 136 121 132 Medications Current Medications Naloxone HCl (Narcan) 0.4 mg Q4 PRN IV SEDATION; Start 01/05/17 at 01:30 Bisacodyl (Dulcolax Supp) 10 mg DAILY [place] Last administered on 01/19/17 09:25; Admin Dose 10 MG; Start 01/06/17 at 09:00 Budesonide (Pulmicort (Neb)) 0.25 mg BID NEB Last administered on 01/19/17 10: 03; Admin Dose 0.25 MG; Start 01/05/17 at 10:30 Fluticasone Propionate (Flonase 0.05% Nasal) 1 spray DAILY NASAL Last administered on 01/19/17 09:15; Admin Dose 1 SPRAY; Start 01/05/17 at 11:00 Fulvestrant (Faslodex) 500 mg Q28D IM ; Start 01/29/17 at 09:00 Insulin Glargine (Lantus) 18 unit DAILY SC Last administered on 01/18/17 10:36 ; Admin Dose 18 UNIT; Start 01/05/17 at 10:30 Magnesium Hydroxide (Milk Of Mag) 30 ml BID PRN PO CONSTIPATION Last administered on 01/16/17 09:09; Admin Dose 30 ML; Start 01/05/17 at 10:30 Nitroglycerin (Nitroglycerin 2% Oint) 0.5 inch Q6 PRN TD CHEST PAIN; Start 03/13 at 10:30 Ondansetron HCl (Zofran Inj) 4 mg Q6H PRN IV NAUSEA Last administered on 09:09; Admin Dose 4 MG; Start 01/05/17 at 10:30 Prednisone (Prednisone) 5 mg DAILY PO Last administered on 01/19/17 09:24; Admin Dose 5 MG; Start 01/05/17 at 12:00 Prednisone (Prednisone) 3 mg DAILY PO Last administered on 01/19/17 09:25; Admin Dose 3 MG; Start 01/05/17 at 12:00 Miscellaneous Information 1 ea NOTE XX ; Start 01/05/17 at 11:00 Glucose (Glutose) 15 gm Q15M PRN PO DECREASED GLUCOSE; Start 01/05/17 at 11:00 Glucose (Glutose) 22.5 gm Q15M PRN PO DECREASED GLUCOSE; Start 01/05/17 at 11: 00 Dextrose (D50w Syringe) 25 ml Q15M PRN IV DECREASED GLUCOSE Last administered on 01/09/17 04:45; Admin Dose 25 ML; Start 01/05/17 at 11:00 Dextrose (D50w Syringe) 50 ml Q15M PRN IV DECREASED GLUCOSE Last administered on 01/08/17 21:33; Admin Dose 50 ML; Start 01/05/17 at 11:00 Glucagon (Glucagen) 1 mg Q15M PRN IM DECREASED GLUCOSE; Start 01/05/17 at 11:00 Glucose (Glutose) 15 gm Q15M PRN BUCCAL DECREASED GLUCOSE; Start 01/05/17 at 11 :00 Insulin Aspart NOVOLOG *MILD* ALGORI... Q4 SC Last administered on 01/19/17 00 :45; Admin Dose 1 UNIT; Start 01/05/17 at 13:00 Fentanyl 100 ml @ 2.5 mls/hr TITRATE IV Last administered on 01/07/17 02:25; Admin Dose 7.5 MLS/HR; Start 01/06/17 at 09:30 Norepinephrine/ Dextrose (Levophed/D5W) 500 ml @ 0 mls/hr TITRATE IV ; Start 04/12 at 13:30 Bumetanide 1 mg 1 mg BID IV Last administered on 01/13/17 21:06; Admin Dose 1 MG; Start 01/08/17 at 09:00; Status Future Hold Propofol (Diprivan) 100 ml @ 2.19 mls/hr Q12H IV Last administered on 14:26; Admin Dose 15.33 MLS/HR; Start 01/08/17 at 16:00 Miscellaneous Information (*Order Clarification Bulletin) FULVESTRANT 250 MG/5 ML SYG: PLE... Q8H XX ; Start 01/26/17 at 09:00 Famotidine (Pepcid Iv) 20 mg DAILY IV Last administered on 01/19/17 09:56; Admin Dose 20 MG; Start 01/16/17 at 09:00 Acetaminophen (Tylenol Tab) 650 mg Q6H PRN NGT PAIN AND OR ELEVATED TEMP; Start 01/17/17 at 22:30 Apixaban (Eliquis) 2.5 mg BID NGT Last administered on 01/18/17 08:20; Admin Dose 2.5 MG; Start 01/17/17 at 21:00; Status Future Hold Ascorbic Acid (Vitamin C) 500 mg BID NGT Last administered on 01/19/17 09:24; Admin Dose 500 MG; Start 01/17/17 at 21:00 Levothyroxine Sodium (Synthroid) 75 mcg DAILY@06 NGT Last administered on 06:30; Admin Dose 75 MCG; Start 01/18/17 at 06:00 Loratadine (Claritin) 10 mg DAILY NGT Last administered on 01/19/17 09:24; Admin Dose 10 MG; Start 01/18/17 at 09:00 Magnesium Oxide (Mag-Ox 400) 400 mg DAILY NGT Last administered on 01/19/17 09 :24; Admin Dose 400 MG; Start 01/18/17 at 09:00 Metoprolol Tartrate (Lopressor) 25 mg BID NGT Last administered on 01/19/17 09 :25; Admin Dose 25 MG; Start 01/17/17 at 21:00 Mirtazapine (Remeron) 15 mg HS NGT Last administered on 01/18/17 20:38; Admin Dose 15 MG; Start 01/17/17 at 21:00 Oxcarbazepine (Trileptal) 600 mg BID NGT Last administered on 01/19/17 09:23; Admin Dose 600 MG; Start 01/17/17 at 21:00 Senna (Senokot) 1 tab HS NGT Last administered on 01/18/17 20:37; Admin Dose 1 TAB; Start 01/17/17 at 21:00 Sertraline HCl (Zoloft) 75 mg DAILY NGT Last administered on 01/19/17 09:24; Admin Dose 75 MG; Start 01/18/17 at 09:00 Sildenafil Citrate (Revatio) 20 mg TID NGT Last administered on 01/19/17 12:26 ; Admin Dose 20 MG; Start 01/17/17 at 21:00 Tacrolimus (Prograf) 2 mg QPM NGT Last administered on 01/18/17 20:37; Admin Dose 2 MG; Start 01/17/17 at 21:00 Docusate Sodium (Colace Liquid Cup) 100 mg BID NGT Last administered on 09:23; Admin Dose 100 MG; Start 01/17/17 at 21:00 Voriconazole (Vfend) 200 mg BID PO ; Start 01/19/17 at 21:00 Assessment/Plan Chief Complaint/Hosp Course Assessment: 1. s/p cardiopulmonary arrest: Most likely due to pulmonary arrest 2. P afib: 3. History of renal failure status post renal transplant: now with KATI on CKD 4. Acute on chronic hypoxemic hypercapnic respiratory failure status post reintubation: currently on the vent 5. Shock: resolved now. 6. ANEMIA 7. breast cancer 8. history of HTN: 9. anxiety 10. DM 11. Hypothyroidism: on synthroid. 12. pleural effusion : s/p thoracentesis 13. Dysphagia: s.p PEG Recommendations: cont eliquis as long as no signs of active bleeding and no surgery/ procedure is planned. will hold until trach is done vent support for now anti- rejection medications to be adjusted as per renal team cont DM control thyroid supplement betablocker as tolerated. correct lytes prn cont tele monitoring will give a dose of dig prn at very low dose. cont ICU care. Thank you for this referral I will continue to follow along with you. AUGUSTINA MALDONADO MD FAC Problems: AUGUSTINA MALDONADO MD Jan 19, 2017 14:58
[2017-01-19] MEDS: VORICONAZOLE 200 MG TAB PO SCH (20:57)
[2017-01-19] MEDS: MIRTAZAPINE 15 MG TAB NGT SCH (20:58)
[2017-01-19] MEDS: SENNA TAB NGT SCH (20:58)
--- NOTE | 2017-01-19 21:47 | CONS ---
Date/Time of Note Date/Time of Note DATE: 01/19/17 TIME: 21:46 Assessment/Plan Assessment/Plan Chief Complaint/Hosp Course History of breast cancer with lung metastasis. The patient is on medical management. on Faslodex as outpt Anemia. Monitor hemoglobin and hematocrit levels. [employer] s/p cardiopulmonary arrest: Most likely due to pulmonary arrest P afib: currently in NSR History of renal failure status post renal transplant Acute on chronic hypoxemic hypercapnic respiratory failure status post tracheostomy currently on the vent POST THORACENTESIS CYTOLOGY- neg Shock: currently blood pressure has improved Chronic obstructive pulmonary disease exacerbation. Congestive heart failure exacerbation. Hypothyroidism. Diabetes. Continue current insulin regimen. Pulmonary hypertension. Depression. Problems: Consultation Date/Type/Reason Admit Date/Time Jan 05, 2017 at 00:15 Initial Consult Date 01/05/17 Type of Consultation: [facility] Referring Provider: SUSAN SIMENTAL DO 24 HR Interval Summary Free Text/Dictation intubated on vent count reviewed Exam/Review of Systems Vital Signs Vitals Vital Signs Date Time Temp Pulse Resp B/P Pulse Ox O2 Delivery O2 Flow Rate FiO2 01/19/17 21:29 95 14 100 30 01/19/17 18:30 108/51 Mechanical Ventilator 01/19/17 16:00 97.5 Intake and Output 01/18/17 01/18/17 01/19/17 15:00 23:00 07:00 Intake Total 320 ml 845.70 ml 113.88 ml Output Total 35 ml 1533 ml 22 ml Balance 285 ml -687.30 ml 91.88 ml Exam HEENT: Head is normocephalic. NECK: Supple. HEART: Regular rate. LUNGS: Show diminished breath sounds base. Positive rhonchi. ABDOMEN: Soft, nontender to palpation. No rebound or guarding. EXTREMITIES: Negative for clubbing, cyanosis. No edema. DERMATOLOGIC: Clean. No rashes. MUSCULOSKELETAL: No joint effusion. NEUROLOGIC: No change in exam. Results Result Diagram: 01/19/1739901/19/17399 Results 24 hrs Laboratory Tests Test 01/19/17 00:43 01/19/17 04:00 01/19/17 05:51 01/19/17 09:13 Bedside Glucose 167 136 121 White Blood Count 24.2 H Red Blood Count 2.77 L Hemoglobin 8.3 L Hematocrit 25.0 L Mean Corpuscular Volume 90.3 Mean Corpuscular Hemoglobin 30.0 Mean Corpuscular Hemoglobin Concent 33.2 Red Cell Distribution Width 15.5 H Platelet Count 269 Mean Platelet Volume 10.7 H Neutrophils % 94.1 H Lymphocytes % 1.2 L Monocytes % 2.8 Eosinophils % 0.8 Basophils % 0.1 Nucleated Red Blood Cells % 0.0 Neutrophils # 22.7 H Lymphocytes # 0.3 L Monocytes # 0.7 Eosinophils # 0.2 Basophils # 0.0 Nucleated Red Blood Cells # 0.0 Sodium Level 124 L Potassium Level 4.8 Chloride Level 94 L Carbon Dioxide Level 22 Anion Gap 13 Blood Urea Nitrogen 90 H Creatinine 3.46 H Glucose Level 135 Calcium Level 9.4 Phosphorus Level 4.1 Magnesium Level 2.6 H Test 01/19/17 12:25 01/19/17 17:52 01/19/17 21:02 Bedside Glucose 132 158 159 Medications Medications Current Medications Naloxone HCl (Narcan) 0.4 mg Q4 PRN IV SEDATION; Start 01/05/17 at 01:30 Bisacodyl (Dulcolax Supp) 10 mg DAILY [place] Last administered on 01/19/17 09:25; Admin Dose 10 MG; Start 01/06/17 at 09:00 Budesonide (Pulmicort (Neb)) 0.25 mg BID NEB Last administered on 01/19/17 20: 00; Admin Dose 0.25 MG; Start 01/05/17 at 10:30 Fluticasone Propionate (Flonase 0.05% Nasal) 1 spray DAILY NASAL Last administered on 01/19/17 09:15; Admin Dose 1 SPRAY; Start 01/05/17 at 11:00 Fulvestrant (Faslodex) 500 mg Q28D IM ; Start 01/29/17 at 09:00 Insulin Glargine (Lantus) 18 unit DAILY [place] Last administered on 01/18/17 10:36 ; Admin Dose 18 UNIT; Start 01/05/17 at 10:30 Magnesium Hydroxide (Milk Of Mag) 30 ml BID PRN PO CONSTIPATION Last administered on 01/16/17 09:09; Admin Dose 30 ML; Start 01/05/17 at 10:30 Nitroglycerin (Nitroglycerin 2% Oint) 0.5 inch Q6 PRN TD CHEST PAIN; Start 03/13 at 10:30 Ondansetron HCl (Zofran Inj) 4 mg Q6H PRN IV NAUSEA Last administered on 09:09; Admin Dose 4 MG; Start 01/05/17 at 10:30 Prednisone (Prednisone) 5 mg DAILY PO Last administered on 01/19/17 09:24; Admin Dose 5 MG; Start 01/05/17 at 12:00 Prednisone (Prednisone) 3 mg DAILY PO Last administered on 01/19/17 09:25; Admin Dose 3 MG; Start 01/05/17 at 12:00 Miscellaneous Information 1 ea NOTE XX ; Start 01/05/17 at 11:00 Glucose (Glutose) 15 gm Q15M PRN PO DECREASED GLUCOSE; Start 01/05/17 at 11:00 Glucose (Glutose) 22.5 gm Q15M PRN PO DECREASED GLUCOSE; Start 01/05/17 at 11: 00 Dextrose (D50w Syringe) 25 ml Q15M PRN IV DECREASED GLUCOSE Last administered on 01/09/17 04:45; Admin Dose 25 ML; Start 01/05/17 at 11:00 Dextrose (D50w Syringe) 50 ml Q15M PRN IV DECREASED GLUCOSE Last administered on 01/08/17 21:33; Admin Dose 50 ML; Start 01/05/17 at 11:00 Glucagon (Glucagen) 1 mg Q15M PRN IM DECREASED GLUCOSE; Start 01/05/17 at 11:00 Glucose (Glutose) 15 gm Q15M PRN BUCCAL DECREASED GLUCOSE; Start 01/05/17 at 11 :00 Insulin Aspart NOVOLOG *MILD* ALGORI... Q4 [place] Last administered on 01/19/17 21 :04; Admin Dose 1 UNIT; Start 01/05/17 at 13:00 Fentanyl 100 ml @ 2.5 mls/hr TITRATE IV Last administered on 01/07/17 02:25; Admin Dose 7.5 MLS/HR; Start 01/06/17 at 09:30 Norepinephrine/ Dextrose (Levophed/D5W) 500 ml @ 0 mls/hr TITRATE IV ; Start 04/12 at 13:30 Bumetanide 1 mg 1 mg BID IV Last administered on 01/13/17 21:06; Admin Dose 1 MG; Start 01/08/17 at 09:00; Status Future Hold Propofol (Diprivan) 100 ml @ 2.19 mls/hr Q12H IV Last administered on 14:26; Admin Dose 15.33 MLS/HR; Start 01/08/17 at 16:00 Miscellaneous Information (*Order Clarification Bulletin) FULVESTRANT 250 MG/5 ML SYG: PLE... Q8H XX ; Start 01/26/17 at 09:00 Acetaminophen (Tylenol Tab) 650 mg Q6H PRN NGT PAIN AND OR ELEVATED TEMP; Start 01/17/17 at 22:30 Apixaban (Eliquis) 2.5 mg BID NGT Last administered on 01/18/17 08:20; Admin Dose 2.5 MG; Start 01/17/17 at 21:00; Status Future Hold Ascorbic Acid (Vitamin C) 500 mg BID NGT Last administered on 01/19/17 20:58; Admin Dose 500 MG; Start 01/17/17 at 21:00 Levothyroxine Sodium (Synthroid) 75 mcg DAILY@06 NGT Last administered on 06:30; Admin Dose 75 MCG; Start 01/18/17 at 06:00 Loratadine (Claritin) 10 mg DAILY NGT Last administered on 01/19/17 09:24; Admin Dose 10 MG; Start 01/18/17 at 09:00 Magnesium Oxide (Mag-Ox 400) 400 mg DAILY NGT Last administered on 01/19/17 09 :24; Admin Dose 400 MG; Start 01/18/17 at 09:00 Metoprolol Tartrate (Lopressor) 25 mg BID NGT Last administered on 01/19/17 20 :57; Admin Dose 25 MG; Start 01/17/17 at 21:00 Mirtazapine (Remeron) 15 mg HS NGT Last administered on 01/19/17 20:58; Admin Dose 15 MG; Start 01/17/17 at 21:00 Oxcarbazepine (Trileptal) 600 mg BID NGT Last administered on 01/19/17 20:58; Admin Dose 600 MG; Start 01/17/17 at 21:00 Senna (Senokot) 1 tab HS NGT Last administered on 01/19/17 20:58; Admin Dose 1 TAB; Start 01/17/17 at 21:00 Sertraline HCl (Zoloft) 75 mg DAILY NGT Last administered on 01/19/17 09:24; Admin Dose 75 MG; Start 01/18/17 at 09:00 Sildenafil Citrate (Revatio) 20 mg TID NGT Last administered on 01/19/17 21:00 ; Admin Dose 20 MG; Start 01/17/17 at 21:00 Tacrolimus (Prograf) 2 mg QPM NGT Last administered on 01/19/17 20:58; Admin Dose 2 MG; Start 01/17/17 at 21:00 Docusate Sodium (Colace Liquid Cup) 100 mg BID NGT Last administered on 20:57; Admin Dose 100 MG; Start 01/17/17 at 21:00 Voriconazole (Vfend) 200 mg BID PO Last administered on 01/19/17 20:57; Admin Dose 200 MG; Start 01/19/17 at 21:00 Famotidine (Pepcid) 20 mg DAILY NGT ; Start 01/20/17 at 09:00 SHANICE DAVENPORT MD Jan 19, 2017 21:47
[2017-01-20] VITALS (62 sets, daily range): BP systolic 77–156; BP diastolic 39–77; PULSE 61–113; RESP 5–26
[2017-01-20] MEDS: INSULIN ASPART [NOVOLOG] 3 ML PEN SC SCH ×7 (00:35→20:59)
[2017-01-20] MEDS: IPRATROPIUM (HFA) 12.9 GM INHALER INH SCH ×4 (01:29→19:41)
[2017-01-20] MEDS: ALBUTEROL 18 GM INHALER INH SCH ×4 (01:30→19:41)
[2017-01-20] MEDS: PROPOFOL 100 ML IV SCH ×2 (05:00→07:04)
[2017-01-20 05:31] LABS: ABNORMAL IP MESSAGE 1; BASOPHILS % 0.1 % (0.0-2.0); EOSINOPHILS # 0.1 10^3/ul (0.0-0.5); EOSINOPHILS % 0.7 % (0.0-7.0); HEMATOCRIT 25.6 % (37.0-47.0); HEMOGLOBIN 8.5 g/dl (12.0-16.0); LYMPHOCYTES # 0.3 10^3/ul (0.8-2.9); LYMPHOCYTES % 1.2 % (15.0-51.0); MEAN CORPUSCULAR HEMOGLOBIN 30.5 pg (29.0-33.0); MEAN CORPUSCULAR HGB CONC 33.2 g/dl (32.0-37.0); MEAN CORPUSCULAR VOLUME 91.8 fl (82.0-101.0); MEAN PLATELET VOLUME 10.5 fl (7.4-10.4); MONOCYTE # 0.7 10^3/ul (0.3-0.9); MONOCYTES % 3.1 % (0.0-11.0); NEUTROPHILS % 94.1 % (39.0-77.0); PLATELET COUNT 250 10^3/UL (140-415); RED BLOOD COUNT 2.79 10^6/ul (4.20-5.40); RED CELL DISTRIBUTION WIDTH 15.7 % (11.5-14.5); WHITE BLOOD COUNT 21.3 10^3/ul (4.8-10.8)
[2017-01-20] MEDS: LEVOTHYROXINE 75 MCG TAB NGT SCH (05:42)
[2017-01-20 05:50] LABS: CALCIUM 9.2 mg/dl (8.4-10.2); CREATININE 2.86 mg/dl (0.44-1.00); MAGNESIUM 2.5 mg/dl (1.7-2.5); PHOSPHORUS 4.2 mg/dl (2.5-4.9); POTASSIUM 4.4 mmol/L (3.5-5.1)
[2017-01-20 06:01] LABS: POSITIVE DIFF @See below
--- NOTE | 2017-01-20 07:48 | PN ---
DATE: 01/20/2017 SUBJECTIVE DATA: The patient remains critically ill, on full ventilatory support. The patient is pending a trach placement today. Had hemodialysis yesterday, tolerated it well. No other events noted. OBJECTIVE DATA: VITAL SIGNS: Blood pressure 102/54, respiration is 14, pulse 61, and temperature 98.6. HEENT: Head is normocephalic. NECK: Supple. HEART: Regular rate. LUNGS: Diminished breath sounds base. ABDOMEN: Soft, nontender to palpation. No rebound or guarding. EXTREMITIES: Negative for clubbing, cyanosis. No edema. DERMATOLOGIC: No rashes. MUSCULOSKELETAL: No joint effusion. NEUROLOGIC: No change in exam. MEDICATIONS: Reviewed. LABORATORY AND DIAGNOSTIC DATA: Reviewed. Showed a sodium of 129, potassium 4.4, BUN 64, creatinine 2.86. White count 21.3, hemoglobin 8.5, hematocrit 25.6, platelet count is 250,000. ASSESSMENT AND PLAN: 1. 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 The etiology of acute kidney injury secondary to acute tubular necrosis due to septic shock. The patient is currently on hemodialysis, will have another session of dialysis today. Monitor for signs of renal recovery. 2. Acute congestive heart failure exacerbation. Continue ultrafiltration dialysis. 3. Hyponatremia continue to dialyze on a 140 sodium bath. 4. Paroxysmal atrial fibrillation. Continue current treatment plan. 5. Sepsis status post shock. Etiology secondary to pneumonia. Continue current antibiotic regimen. 6. Fungal urinary tract infection. Continue antifungal therapy. 7. History of end-stage renal disease. The patient is status post-renal transplant, chronic allograft failure. The patient is currently in acute kidney injury stated above. Continue current immunosuppressive regimen. Follow up Prograf level. 8. Hypothyroid. Continue Synthroid. 9. Anemia. Continue to monitor hemoglobin and hematocrit levels. 10. Diabetes. Continue Accu-Cheks and sliding scale. 11. Pulmonary hypertension. Continue to monitor. 12. Dysphagia. Continue tube feeding. 13. History of breast cancer. 14. Gastrointestinal and deep venous thrombosis prophylaxis. CRITICAL CARE TIME: I spent over 30 minutes of critical care time with this patient. Dictated By: Cameron Rosenthal DO /[email or web address] /Document#: [id number]
[2017-01-20] MEDS: MAGNESIUM OXIDE 400 MG TAB NGT SCH (09:00)
[2017-01-20] MEDS: SILDENAFIL 20 MG TAB NGT SCH ×3 (09:00→20:53)
--- NOTE | 2017-01-20 09:34 | CONS ---
Date/Time of Note Date/Time of Note DATE: 01/20/17 TIME: 09:32 Consult Date/Type/Reason Admit Date/Time Jan 05, 2017 at 00:15 Initial Consult Date 01/05/17 Type of Consultation: CARDIOLOGY Ordering Provider: SUSAN SIMENTAL DO Subjective CARDIOLOGY FOLLOW UP NOTE: D/W Staff and rhythm was reviewed. pt has remained in Afib. HR has been stable pt still remains intubated on vent. pt was extubated on 01/07/17 but had to be re -intubated again the same night due to resp distress even on BIPAP. NO reports of any chest pain or pressure S/P PEG 01/19/17 Awaiting trach now OBJECTIVE: General: intubated on vent. HEENT: NC/AT. pupils are equal. round. NECK: NO JVD. no stridor. CV:irregularly irregular. systolic murmur; no gallop or rubs. PULM: no wheezing, + mild rhonchi. GI: SOFT, NT, ND, no rebound or guarding S/P PEG Extremity: trace B/L LE edema. no clubbing. neuro: sedated now. Psych: unable to assess rectal: deferred : normal ECHO 12/16/16: Personally reviewed 1. Normal left ventricular systolic function. Normal left ventricular cavity size. Moderate concentric left ventricular hypertrophy. Ejection fraction is visually estimated at 65 %. Abnormal Diastolic Function. 2. There is moderate enlargement of left atrium. 3. Mild mitral leaflet calcification. Mild mitral annular calcification. Trace mitral regurgitation. 4. Aortic sclerosis without stenosis. Trace aortic valve regurgitation. 5. Normal appearance of the tricuspid valve. Estimated peak PA systolic pressure 38 mmHg. There is mild tricuspid regurgitation. Objective Vital Signs Date Time Temp Pulse Resp B/P Pulse Ox O2 Delivery O2 Flow Rate FiO2 01/20/17 09:00 100 19 132/59 100 Mechanical Ventilator 01/20/17 08:00 97.4 01/20/17 05:09 30 Intake and Output 01/19/17 01/19/17 01/20/17 15:00 23:00 07:00 Intake Total 107.31 ml 621.12 ml 386.965 ml Output Total 14 ml 1913 ml 6 ml Balance 93.31 ml -1291.88 ml 380.965 ml Results/Medications Result Diagram: 01/20/17 0455 01/20/17 0455 Results 24 hrs Laboratory Tests Test 01/19/17 12:25 01/19/17 17:52 01/19/17 21:02 01/20/17 00:29 Bedside Glucose 132 158 159 159 Test 01/20/17 04:55 01/20/17 05:16 White Blood Count 21.3 H Red Blood Count 2.79 L Hemoglobin 8.5 L Hematocrit 25.6 L Mean Corpuscular Volume 91.8 Mean Corpuscular Hemoglobin 30.5 Mean Corpuscular Hemoglobin Concent 33.2 Red Cell Distribution Width 15.7 H Platelet Count 250 Mean Platelet Volume 10.5 H Neutrophils % 94.1 H Lymphocytes % 1.2 L Monocytes % 3.1 Eosinophils % 0.7 Basophils % 0.1 Nucleated Red Blood Cells % 0.0 Neutrophils # 20.0 H Lymphocytes # 0.3 L Monocytes # 0.7 Eosinophils # 0.1 Basophils # 0.0 Nucleated Red Blood Cells # 0.0 Sodium Level 129 L Potassium Level 4.4 Chloride Level 96 L Carbon Dioxide Level 26 Anion Gap 11 Blood Urea Nitrogen 64 H Creatinine 2.86 H Glucose Level 152 Calcium Level 9.2 Phosphorus Level 4.2 Magnesium Level 2.5 Bedside Glucose 176 Medications Current Medications Naloxone HCl (Narcan) 0.4 mg Q4 PRN IV SEDATION; Start 01/05/17 at 01:30 Bisacodyl (Dulcolax Supp) 10 mg DAILY IA Last administered on 01/19/17 09:25; Admin Dose 10 MG; Start 01/06/17 at 09:00 Budesonide (Pulmicort (Neb)) 0.25 mg BID NEB Last administered on 01/19/17 20: 00; Admin Dose 0.25 MG; Start 01/05/17 at 10:30 Fluticasone Propionate (Flonase 0.05% Nasal) 1 spray DAILY NASAL Last administered on 01/19/17 09:15; Admin Dose 1 SPRAY; Start 01/05/17 at 11:00 Fulvestrant (Faslodex) 500 mg Q28D IM ; Start 01/29/17 at 09:00 Insulin Glargine (Lantus) 18 unit DAILY SC Last administered on 01/18/17 10:36 ; Admin Dose 18 UNIT; Start 01/05/17 at 10:30 Magnesium Hydroxide (Milk Of Mag) 30 ml BID PRN PO CONSTIPATION Last administered on 01/16/17 09:09; Admin Dose 30 ML; Start 01/05/17 at 10:30 Nitroglycerin (Nitroglycerin 2% Oint) 0.5 inch Q6 PRN TD CHEST PAIN; Start 03/13 at 10:30 Ondansetron HCl (Zofran Inj) 4 mg Q6H PRN IV NAUSEA Last administered on 09:09; Admin Dose 4 MG; Start 01/05/17 at 10:30 Prednisone (Prednisone) 5 mg DAILY PO Last administered on 01/19/17 09:24; Admin Dose 5 MG; Start 01/05/17 at 12:00 Prednisone (Prednisone) 3 mg DAILY PO Last administered on 01/19/17 09:25; Admin Dose 3 MG; Start 01/05/17 at 12:00 Miscellaneous Information 1 ea NOTE XX ; Start 01/05/17 at 11:00 Glucose (Glutose) 15 gm Q15M PRN PO DECREASED GLUCOSE; Start 01/05/17 at 11:00 Glucose (Glutose) 22.5 gm Q15M PRN PO DECREASED GLUCOSE; Start 01/05/17 at 11: 00 Dextrose (D50w Syringe) 25 ml Q15M PRN IV DECREASED GLUCOSE Last administered on 01/09/17 04:45; Admin Dose 25 ML; Start 01/05/17 at 11:00 Dextrose (D50w Syringe) 50 ml Q15M PRN IV DECREASED GLUCOSE Last administered on 01/08/17 21:33; Admin Dose 50 ML; Start 01/05/17 at 11:00 Glucagon (Glucagen) 1 mg Q15M PRN IM DECREASED GLUCOSE; Start 01/05/17 at 11:00 Glucose (Glutose) 15 gm Q15M PRN BUCCAL DECREASED GLUCOSE; Start 01/05/17 at 11 :00 Insulin Aspart NOVOLOG *MILD* ALGORI... Q4 SC Last administered on 01/20/17 05 :18; Admin Dose 1 UNIT; Start 01/05/17 at 13:00 Fentanyl 100 ml @ 2.5 mls/hr TITRATE IV Last administered on 01/07/17 02:25; Admin Dose 7.5 MLS/HR; Start 01/06/17 at 09:30 Norepinephrine/ Dextrose (Levophed/D5W) 500 ml @ 0 mls/hr TITRATE IV ; Start 04/12 at 13:30 Bumetanide 1 mg 1 mg BID IV Last administered on 01/13/17 21:06; Admin Dose 1 MG; Start 01/08/17 at 09:00; Status Future Hold Propofol (Diprivan) 100 ml @ 2.19 mls/hr Q12H IV Last administered on 07:04; Admin Dose 15.28 MLS/HR; Start 01/08/17 at 16:00 Miscellaneous Information (*Order Clarification Bulletin) FULVESTRANT 250 MG/5 ML SYG: PLE... Q8H XX ; Start 01/26/17 at 09:00 Acetaminophen (Tylenol Tab) 650 mg Q6H PRN NGT PAIN AND OR ELEVATED TEMP; Start 01/17/17 at 22:30 Apixaban (Eliquis) 2.5 mg BID NGT Last administered on 01/18/17 08:20; Admin Dose 2.5 MG; Start 01/17/17 at 21:00; Status Future Hold Ascorbic Acid (Vitamin C) 500 mg BID NGT Last administered on 01/19/17 20:58; Admin Dose 500 MG; Start 01/17/17 at 21:00 Levothyroxine Sodium (Synthroid) 75 mcg DAILY@06 NGT Last administered on 05:42; Admin Dose 75 MCG; Start 01/18/17 at 06:00 Loratadine (Claritin) 10 mg DAILY NGT Last administered on 01/19/17 09:24; Admin Dose 10 MG; Start 01/18/17 at 09:00 Magnesium Oxide (Mag-Ox 400) 400 mg DAILY NGT Last administered on 01/19/17 09 :24; Admin Dose 400 MG; Start 01/18/17 at 09:00 Metoprolol Tartrate (Lopressor) 25 mg BID NGT Last administered on 01/19/17 20 :57; Admin Dose 25 MG; Start 01/17/17 at 21:00 Mirtazapine (Remeron) 15 mg HS NGT Last administered on 01/19/17 20:58; Admin Dose 15 MG; Start 01/17/17 at 21:00 Oxcarbazepine (Trileptal) 600 mg BID NGT Last administered on 01/19/17 20:58; Admin Dose 600 MG; Start 01/17/17 at 21:00 Senna (Senokot) 1 tab HS NGT Last administered on 01/19/17 20:58; Admin Dose 1 TAB; Start 01/17/17 at 21:00 Sertraline HCl (Zoloft) 75 mg DAILY NGT Last administered on 01/19/17 09:24; Admin Dose 75 MG; Start 01/18/17 at 09:00 Sildenafil Citrate (Revatio) 20 mg TID NGT Last administered on 01/19/17 21:00 ; Admin Dose 20 MG; Start 01/17/17 at 21:00 Tacrolimus (Prograf) 2 mg QPM NGT Last administered on 01/19/17 20:58; Admin Dose 2 MG; Start 01/17/17 at 21:00 Docusate Sodium (Colace Liquid Cup) 100 mg BID NGT Last administered on 20:57; Admin Dose 100 MG; Start 01/17/17 at 21:00 Voriconazole (Vfend) 200 mg BID PO Last administered on 01/19/17 20:57; Admin Dose 200 MG; Start 01/19/17 at 21:00 Famotidine (Pepcid) 20 mg DAILY NGT ; Start 01/20/17 at 09:00 Assessment/Plan Chief Complaint/Hosp Course Assessment: 1. s/p cardiopulmonary arrest: Most likely due to pulmonary arrest 2. P afib: 3. History of renal failure status post renal transplant: now with KATI on CKD 4. Acute on chronic hypoxemic hypercapnic respiratory failure status post reintubation: currently on the vent 5. Shock: resolved now. 6. ANEMIA 7. breast cancer 8. history of HTN: 9. anxiety 10. DM 11. Hypothyroidism: on synthroid. 12. pleural effusion : s/p thoracentesis 13. Dysphagia: s/p PEG Recommendations: cont eliquis as long as no signs of active bleeding and no surgery/ procedure is planned. (will hold until trach is done ) vent support for now anti- rejection medications to be adjusted as per renal team. HD as per renal. cont DM control thyroid supplement betablocker as tolerated. correct lytes prn cont tele monitoring cont ICU care. Thank you for this referral I will continue to follow along with you. AUGUSTINA MALDONADO MD [facility] Problems: AUGUSTINA MALDONADO MD Jan 20, 2017 09:34
[2017-01-20] MEDS: TACROLIMUS 0.5 MG CAP NGT SCH ×2 (09:40→20:55)
[2017-01-20] MEDS: LORATADINE 10 MG TAB NGT SCH (09:40)
[2017-01-20] MEDS: SERTRALINE 50 MG TAB NGT SCH (09:40)
[2017-01-20] MEDS: VORICONAZOLE 200 MG TAB PO SCH ×2 (09:41→20:54)
[2017-01-20] MEDS: predniSONE 5 MG TAB PO SCH (09:41)
[2017-01-20] MEDS: predniSONE 1 MG TAB PO SCH (09:41)
[2017-01-20] MEDS: OXCARBAZEPINE 300 MG TAB NGT SCH ×2 (09:41→20:53)
[2017-01-20] MEDS: ASCORBIC ACID 500 MG TAB NGT SCH ×2 (09:42→20:54)
[2017-01-20] MEDS: DOCUSATE SODIUM 10 MG/ML (10ML CUP) NGT SCH ×2 (09:42→20:53)
[2017-01-20] MEDS: FAMOTIDINE 20 MG TAB NGT SCH (09:42)
[2017-01-20] MEDS: BISACODYL 10 MG SUPP PR SCH (09:42)
[2017-01-20] MEDS: FLUTICASONE 0.05% 16 GM NAS SPRAY NASAL SCH (09:44)
--- NOTE | 2017-01-20 10:03 | CONS ---
Date/Time of Note Date/Time of Note DATE: 01/20/17 TIME: 10:01 Consult Date/Type/Reason Admit Date/Time Jan 05, 2017 at 00:15 Initial Consult Date 01/05/17 Type of Consultation: Pulmonary Ordering Provider: SUSAN SIMENTAL DO Subjective Patient status post PEG tube placement. Continues mechanical ventilation, comfortable with mild sedation. Currently hemodynamically stable. Objective Vital Signs Date Time Temp Pulse Resp B/P Pulse Ox O2 Delivery O2 Flow Rate FiO2 01/20/17 09:00 100 19 132/59 100 Mechanical Ventilator 01/20/17 08:00 97.4 01/20/17 05:09 30 Intake and Output 01/19/17 01/19/17 01/20/17 15:00 23:00 07:00 Intake Total 107.31 ml 621.12 ml 386.965 ml Output Total 14 ml 1913 ml 6 ml Balance 93.31 ml -1291.88 ml 380.965 ml Exam PHYSICAL EXAMINATION GENERAL: Elderly lady intubated on mechanical ventilation appears comfortable at rest VITAL SIGNS: see below. HEENT: Pupils equal, round, and reactive to light. CARDIAC: S1, S2, 1/6 systolic ejection murmur CHEST: Diminished air entry bilaterally. ABDOMEN: Mildly distended. Bowel sounds present no guarding or rebound EXTREMITIES: No cyanosis, clubbing edema +1 NEUROLOGIC: Generalized weakness Results/Medications Result Diagram: 01/20/17 0455 01/20/17 0455 Results 24 hrs Laboratory Tests Test 01/19/17 12:25 01/19/17 17:52 01/19/17 21:02 01/20/17 00:29 Bedside Glucose 132 158 159 159 Test 01/20/17 04:55 01/20/17 05:16 White Blood Count 21.3 H Red Blood Count 2.79 L Hemoglobin 8.5 L Hematocrit 25.6 L Mean Corpuscular Volume 91.8 Mean Corpuscular Hemoglobin 30.5 Mean Corpuscular Hemoglobin Concent 33.2 Red Cell Distribution Width 15.7 H Platelet Count 250 Mean Platelet Volume 10.5 H Neutrophils % 94.1 H Lymphocytes % 1.2 L Monocytes % 3.1 Eosinophils % 0.7 Basophils % 0.1 Nucleated Red Blood Cells % 0.0 Neutrophils # 20.0 H Lymphocytes # 0.3 L Monocytes # 0.7 Eosinophils # 0.1 Basophils # 0.0 Nucleated Red Blood Cells # 0.0 Sodium Level 129 L Potassium Level 4.4 Chloride Level 96 L Carbon Dioxide Level 26 Anion Gap 11 Blood Urea Nitrogen 64 H Creatinine 2.86 H Glucose Level 152 Calcium Level 9.2 Phosphorus Level 4.2 Magnesium Level 2.5 Bedside Glucose 176 Medications Current Medications Naloxone HCl (Narcan) 0.4 mg Q4 PRN IV SEDATION; Start 01/05/17 at 01:30 Bisacodyl (Dulcolax Supp) 10 mg DAILY MT Last administered on 01/20/17 09:42; Admin Dose 10 MG; Start 01/06/17 at 09:00 Budesonide (Pulmicort (Neb)) 0.25 mg BID NEB Last administered on 01/19/17 20: 00; Admin Dose 0.25 MG; Start 01/05/17 at 10:30 Fluticasone Propionate (Flonase 0.05% Nasal) 1 spray DAILY NASAL Last administered on 01/20/17 09:44; Admin Dose 1 SPRAY; Start 01/05/17 at 11:00 Fulvestrant (Faslodex) 500 mg Q28D IM ; Start 01/29/17 at 09:00 Insulin Glargine (Lantus) 18 unit DAILY SC Last administered on 01/18/17 10:36 ; Admin Dose 18 UNIT; Start 01/05/17 at 10:30 Magnesium Hydroxide (Milk Of Mag) 30 ml BID PRN PO CONSTIPATION Last administered on 01/16/17 09:09; Admin Dose 30 ML; Start 01/05/17 at 10:30 Nitroglycerin (Nitroglycerin 2% Oint) 0.5 inch Q6 PRN TD CHEST PAIN; Start 03/13 at 10:30 Ondansetron HCl (Zofran Inj) 4 mg Q6H PRN IV NAUSEA Last administered on 09:09; Admin Dose 4 MG; Start 01/05/17 at 10:30 Prednisone (Prednisone) 5 mg DAILY PO Last administered on 01/20/17 09:41; Admin Dose 5 MG; Start 01/05/17 at 12:00 Prednisone (Prednisone) 3 mg DAILY PO Last administered on 01/20/17 09:41; Admin Dose 3 MG; Start 01/05/17 at 12:00 Miscellaneous Information 1 ea NOTE XX ; Start 01/05/17 at 11:00 Glucose (Glutose) 15 gm Q15M PRN PO DECREASED GLUCOSE; Start 01/05/17 at 11:00 Glucose (Glutose) 22.5 gm Q15M PRN PO DECREASED GLUCOSE; Start 01/05/17 at 11: 00 Dextrose (D50w Syringe) 25 ml Q15M PRN IV DECREASED GLUCOSE Last administered on 01/09/17 04:45; Admin Dose 25 ML; Start 01/05/17 at 11:00 Dextrose (D50w Syringe) 50 ml Q15M PRN IV DECREASED GLUCOSE Last administered on 01/08/17 21:33; Admin Dose 50 ML; Start 01/05/17 at 11:00 Glucagon (Glucagen) 1 mg Q15M PRN IM DECREASED GLUCOSE; Start 01/05/17 at 11:00 Glucose (Glutose) 15 gm Q15M PRN BUCCAL DECREASED GLUCOSE; Start 01/05/17 at 11 :00 Insulin Aspart NOVOLOG *MILD* ALGORI... Q4 SC Last administered on 01/20/17 09 :55; Admin Dose 1 UNIT; Start 01/05/17 at 13:00 Fentanyl 100 ml @ 2.5 mls/hr TITRATE IV Last administered on 01/07/17 02:25; Admin Dose 7.5 MLS/HR; Start 01/06/17 at 09:30 Norepinephrine/ Dextrose (Levophed/D5W) 500 ml @ 0 mls/hr TITRATE IV ; Start 04/12 at 13:30 Bumetanide 1 mg 1 mg BID IV Last administered on 01/13/17 21:06; Admin Dose 1 MG; Start 01/08/17 at 09:00; Status Future Hold Propofol (Diprivan) 100 ml @ 2.19 mls/hr Q12H IV Last administered on 07:04; Admin Dose 15.28 MLS/HR; Start 01/08/17 at 16:00 Miscellaneous Information (*Order Clarification Bulletin) FULVESTRANT 250 MG/5 ML SYG: PLE... Q8H XX ; Start 01/26/17 at 09:00 Acetaminophen (Tylenol Tab) 650 mg Q6H PRN NGT PAIN AND OR ELEVATED TEMP; Start 01/17/17 at 22:30 Apixaban (Eliquis) 2.5 mg BID NGT Last administered on 01/18/17 08:20; Admin Dose 2.5 MG; Start 01/17/17 at 21:00; Status Future Hold Ascorbic Acid (Vitamin C) 500 mg BID NGT Last administered on 01/20/17 09:42; Admin Dose 500 MG; Start 01/17/17 at 21:00 Levothyroxine Sodium (Synthroid) 75 mcg DAILY@06 NGT Last administered on 05:42; Admin Dose 75 MCG; Start 01/18/17 at 06:00 Loratadine (Claritin) 10 mg DAILY NGT Last administered on 01/20/17 09:40; Admin Dose 10 MG; Start 01/18/17 at 09:00 Magnesium Oxide (Mag-Ox 400) 400 mg DAILY NGT Last administered on 01/19/17 09 :24; Admin Dose 400 MG; Start 01/18/17 at 09:00 Metoprolol Tartrate (Lopressor) 25 mg BID NGT Last administered on 01/19/17 20 :57; Admin Dose 25 MG; Start 01/17/17 at 21:00 Mirtazapine (Remeron) 15 mg HS NGT Last administered on 01/19/17 20:58; Admin Dose 15 MG; Start 01/17/17 at 21:00 Oxcarbazepine (Trileptal) 600 mg BID NGT Last administered on 01/20/17 09:41; Admin Dose 600 MG; Start 01/17/17 at 21:00 Senna (Senokot) 1 tab HS NGT Last administered on 01/19/17 20:58; Admin Dose 1 TAB; Start 01/17/17 at 21:00 Sertraline HCl (Zoloft) 75 mg DAILY NGT Last administered on 01/20/17 09:40; Admin Dose 75 MG; Start 01/18/17 at 09:00 Sildenafil Citrate (Revatio) 20 mg TID NGT Last administered on 01/19/17 21:00 ; Admin Dose 20 MG; Start 01/17/17 at 21:00 Tacrolimus (Prograf) 2 mg QPM NGT Last administered on 01/19/17 20:58; Admin Dose 2 MG; Start 01/17/17 at 21:00 Docusate Sodium (Colace Liquid Cup) 100 mg BID NGT Last administered on 09:42; Admin Dose 100 MG; Start 01/17/17 at 21:00 Voriconazole (Vfend) 200 mg BID PO Last administered on 01/20/17 09:41; Admin Dose 200 MG; Start 01/19/17 at 21:00 Famotidine (Pepcid) 20 mg DAILY NGT Last administered on 01/20/17 09:42; Admin Dose 20 MG; Start 01/20/17 at 09:00 Assessment/Plan Chief Complaint/Hosp Course IMPRESSION: 1. Hypoxemic respiratory failure. Status post thoracentesis. Failed multiple CPAP weaning trials pending tracheostomy 2. Possible altered mental status secondary to opioids. Significant anxiety component. 3. History of renal transplant. Renal insufficiency. Hyponatremia. 4. Dysphagia now with G-tube PLAN: 1. Continue supportive care 2. Decrease sedation as tolerated. 3. Continue ID recommendations 4. Renal recommendations. 5. DVT and GI prophylaxis. 6. Start tube feeding once tracheostomy placed. Critical care time 40 minutes. Prognosis guarded. Problems: LESA SAMUELS MD, [facility] Jan 20, 2017 10:02
--- NOTE | 2017-01-20 10:26 | CONS ---
Date/Time of Note Date/Time of Note DATE: 01/20/17 TIME: 10:25 Assessment/Plan Assessment/Plan Additional Assessment/Plan Additional Assessment/Plan 1. Respiratory failure. 2. Dysphagia. 3. Sepsis. 4. Renal failure. 5. Diabetes mellitus. 6. Breast cancer with metastasis. 7. Chronic obstructive pulmonary disease. 8. Pulmonary hypertension. 9. Atrial fibrillation. 10. Deconditioning 11. Status post renal transplant on immunosuppressive medication 12. Persistent leukocytosis 13. Respiratory failure reintubated 14. Status post PEG Plan Patient is tolerating feeding and will gradually increase it until the goal is achieved. Continue present care Awaiting for the tracheostomy today Plan Consultation Date/Type/Reason Admit Date/Time Jan 05, 2017 at 00:15 Initial Consult Date 01/05/17 Type of Consultation: Pulmonary Referring Provider: SUSAN SIMENTAL DO 24 HR Interval Summary Subjective hx not possible: pt non-verbal, pt critical Exam/Review of Systems Vital Signs Vitals Vital Signs Date Time Temp Pulse Resp B/P Pulse Ox O2 Delivery O2 Flow Rate FiO2 01/20/17 09:00 100 19 132/59 100 Mechanical Ventilator 01/20/17 08:00 97.4 01/20/17 05:09 30 Intake and Output 01/19/17 01/19/17 01/20/17 15:00 23:00 07:00 Intake Total 107.31 ml 621.12 ml 386.965 ml Output Total 14 ml 1913 ml 6 ml Balance 93.31 ml -1291.88 ml 380.965 ml Exam Constitutional: alert, oriented, well developed Psych: nl mood/affect, no complaints Head: atraumatic, normocephalic Eyes: EOMI, PERRL, nl conjunctiva, nl lids, nl sclera ENMT: nl external ears & nose, nl lips & teeth, nl nasal mucosa & septum Neck: non-tender, supple Respiratory: clear to auscultation, normal air movement Cardiovascular: nl pulses, regular rate and rhythm Gastrointestinal: nl liver, spleen, non-tender, soft Musculoskeletal: nl extremities to inspection, nl gait and stance Extremities: normal pulses Neurological: TELEPHONE APPOINTMENT CLERK II-XII intact, nl mental status, nl speech, nl strength Skin: nl turgor, No rash or lesions Lymph: nl lymph nodes Results Result Diagram: 01/20/175 01/20/175 Results 24 hrs Laboratory Tests Test 01/19/17 12:25 01/19/17 17:52 01/19/17 21:02 01/20/17 00:29 Bedside Glucose 132 158 159 159 Test 01/20/17 04:55 01/20/17 05:16 01/20/17 09:47 White Blood Count 21.3 H Red Blood Count 2.79 L Hemoglobin 8.5 L Hematocrit 25.6 L Mean Corpuscular Volume 91.8 Mean Corpuscular Hemoglobin 30.5 Mean Corpuscular Hemoglobin Concent 33.2 Red Cell Distribution Width 15.7 H Platelet Count 250 Mean Platelet Volume 10.5 H Neutrophils % 94.1 H Lymphocytes % 1.2 L Monocytes % 3.1 Eosinophils % 0.7 Basophils % 0.1 Nucleated Red Blood Cells % 0.0 Neutrophils # 20.0 H Lymphocytes # 0.3 L Monocytes # 0.7 Eosinophils # 0.1 Basophils # 0.0 Nucleated Red Blood Cells # 0.0 Sodium Level 129 L Potassium Level 4.4 Chloride Level 96 L Carbon Dioxide Level 26 Anion Gap 11 Blood Urea Nitrogen 64 H Creatinine 2.86 H Glucose Level 152 Calcium Level 9.2 Phosphorus Level 4.2 Magnesium Level 2.5 Bedside Glucose 176 159 Medications Medications Current Medications Naloxone HCl (Narcan) 0.4 mg Q4 PRN IV SEDATION; Start 01/05/17 at 01:30 Bisacodyl (Dulcolax Supp) 10 mg DAILY MS Last administered on 01/20/17 09:42; Admin Dose 10 MG; Start 01/06/17 at 09:00 Budesonide (Pulmicort (Neb)) 0.25 mg BID NEB Last administered on 01/19/17 20: 00; Admin Dose 0.25 MG; Start 01/05/17 at 10:30 Fluticasone Propionate (Flonase 0.05% Nasal) 1 spray DAILY NASAL Last administered on 01/20/17 09:44; Admin Dose 1 SPRAY; Start 01/05/17 at 11:00 Fulvestrant (Faslodex) 500 mg Q28D IM ; Start 01/29/17 at 09:00 Insulin Glargine (Lantus) 18 unit DAILY SC Last administered on 01/18/17 10:36 ; Admin Dose 18 UNIT; Start 01/05/17 at 10:30 Magnesium Hydroxide (Milk Of Mag) 30 ml BID PRN PO CONSTIPATION Last administered on 01/16/17 09:09; Admin Dose 30 ML; Start 01/05/17 at 10:30 Nitroglycerin (Nitroglycerin 2% Oint) 0.5 inch Q6 PRN TD CHEST PAIN; Start 03/13 at 10:30 Ondansetron HCl (Zofran Inj) 4 mg Q6H PRN IV NAUSEA Last administered on 09:09; Admin Dose 4 MG; Start 01/05/17 at 10:30 Prednisone (Prednisone) 5 mg DAILY PO Last administered on 01/20/17 09:41; Admin Dose 5 MG; Start 01/05/17 at 12:00 Prednisone (Prednisone) 3 mg DAILY PO Last administered on 01/20/17 09:41; Admin Dose 3 MG; Start 01/05/17 at 12:00 Miscellaneous Information 1 ea NOTE XX ; Start 01/05/17 at 11:00 Glucose (Glutose) 15 gm Q15M PRN PO DECREASED GLUCOSE; Start 01/05/17 at 11:00 Glucose (Glutose) 22.5 gm Q15M PRN PO DECREASED GLUCOSE; Start 01/05/17 at 11: 00 Dextrose (D50w Syringe) 25 ml Q15M PRN IV DECREASED GLUCOSE Last administered on 01/09/17 04:45; Admin Dose 25 ML; Start 01/05/17 at 11:00 Dextrose (D50w Syringe) 50 ml Q15M PRN IV DECREASED GLUCOSE Last administered on 01/08/17 21:33; Admin Dose 50 ML; Start 01/05/17 at 11:00 Glucagon (Glucagen) 1 mg Q15M PRN IM DECREASED GLUCOSE; Start 01/05/17 at 11:00 Glucose (Glutose) 15 gm Q15M PRN BUCCAL DECREASED GLUCOSE; Start 01/05/17 at 11 :00 Insulin Aspart NOVOLOG *MILD* ALGORI... Q4 SC Last administered on 01/20/17 09 :55; Admin Dose 1 UNIT; Start 01/05/17 at 13:00 Fentanyl 100 ml @ 2.5 mls/hr TITRATE IV Last administered on 01/07/17 02:25; Admin Dose 7.5 MLS/HR; Start 01/06/17 at 09:30 Norepinephrine/ Dextrose (Levophed/D5W) 500 ml @ 0 mls/hr TITRATE IV ; Start 04/12 at 13:30 Bumetanide 1 mg 1 mg BID IV Last administered on 01/13/17 21:06; Admin Dose 1 MG; Start 01/08/17 at 09:00; Status Future Hold Propofol (Diprivan) 100 ml @ 2.19 mls/hr Q12H IV Last administered on 07:04; Admin Dose 15.28 MLS/HR; Start 01/08/17 at 16:00 Miscellaneous Information (*Order Clarification Bulletin) FULVESTRANT 250 MG/5 ML SYG: PLE... Q8H XX ; Start 01/26/17 at 09:00 Acetaminophen (Tylenol Tab) 650 mg Q6H PRN NGT PAIN AND OR ELEVATED TEMP; Start 01/17/17 at 22:30 Apixaban (Eliquis) 2.5 mg BID NGT Last administered on 01/18/17 08:20; Admin Dose 2.5 MG; Start 01/17/17 at 21:00; Status Future Hold Ascorbic Acid (Vitamin C) 500 mg BID NGT Last administered on 01/20/17 09:42; Admin Dose 500 MG; Start 01/17/17 at 21:00 Levothyroxine Sodium (Synthroid) 75 mcg DAILY@06 NGT Last administered on 05:42; Admin Dose 75 MCG; Start 01/18/17 at 06:00 Loratadine (Claritin) 10 mg DAILY NGT Last administered on 01/20/17 09:40; Admin Dose 10 MG; Start 01/18/17 at 09:00 Magnesium Oxide (Mag-Ox 400) 400 mg DAILY NGT Last administered on 01/19/17 09 :24; Admin Dose 400 MG; Start 01/18/17 at 09:00 Metoprolol Tartrate (Lopressor) 25 mg BID NGT Last administered on 01/19/17 20 :57; Admin Dose 25 MG; Start 01/17/17 at 21:00 Mirtazapine (Remeron) 15 mg HS NGT Last administered on 01/19/17 20:58; Admin Dose 15 MG; Start 01/17/17 at 21:00 Oxcarbazepine (Trileptal) 600 mg BID NGT Last administered on 01/20/17 09:41; Admin Dose 600 MG; Start 01/17/17 at 21:00 Senna (Senokot) 1 tab HS NGT Last administered on 01/19/17 20:58; Admin Dose 1 TAB; Start 01/17/17 at 21:00 Sertraline HCl (Zoloft) 75 mg DAILY NGT Last administered on 01/20/17 09:40; Admin Dose 75 MG; Start 01/18/17 at 09:00 Sildenafil Citrate (Revatio) 20 mg TID NGT Last administered on 01/19/17 21:00 ; Admin Dose 20 MG; Start 01/17/17 at 21:00 Tacrolimus (Prograf) 2 mg QPM NGT Last administered on 01/19/17 20:58; Admin Dose 2 MG; Start 01/17/17 at 21:00 Docusate Sodium (Colace Liquid Cup) 100 mg BID NGT Last administered on 09:42; Admin Dose 100 MG; Start 01/17/17 at 21:00 Voriconazole (Vfend) 200 mg BID PO Last administered on 01/20/17 09:41; Admin Dose 200 MG; Start 01/19/17 at 21:00 Famotidine (Pepcid) 20 mg DAILY NGT Last administered on 01/20/17 09:42; Admin Dose 20 MG; Start 01/20/17 at 09:00 MEMO WILHELM MD Jan 20, 2017 10:26
[2017-01-20] MEDS: INSULIN GLARGINE [LANtus] 3 ML PEN SC SCH (10:37)
[2017-01-20] MEDS: BUDESONIDE (NEB) 0.25 MG/2 ML AMP NEB SCH ×2 (11:22→22:43)
--- NOTE | 2017-01-20 12:21 | PN ---
DATE: 01/20/2017 SUBJECTIVE DATA: No acute events. Patient is noncommunicative, intubated, sedated, in no distress. No fevers. VITAL SIGNS: Temperature 97.4, pulse 95, respirations 18, blood pressure 141/50, saturation 100 on vent. LABORATORY AND DIAGNOSTIC DATA: WBC today 21.3. H and H 8.5 and 25.6, platelets 250, neutrophils 94.1, BUN 64, creatinine 2.86. MICROBIOLOGY: Urine culture growing yeast, non Mellissa albicans. INDWELLINGS: Endotracheal tube, NG tube, Dela Cruz, right femoral Bandar. ANTIMICROBIALS: Patient was started on voriconazole yesterday. PHYSICAL EXAMINATION: This is a chronically ill-appearing, elderly woman, who is intubated and in no distress. HEENT: Head atraumatic, normocephalic. Sclerae anicteric. Buccal mucosa dry. NECK: Supple. CHEST: Chest rise symmetrical. Breath sounds diminished at the bases. HEART: S1, S2. ABDOMEN: Soft, bowel sounds hypoactive. EXTREMITIES: Without cyanosis. SKIN: Positive for anasarca. No jaundice. No cyanosis. ASSESSMENT: 1. Sepsis status post shock. 2. Persistent leukocytosis, likely secondary to urinary tract infection. 3. Fungal urinary tract infection. 4. Acute on chronic kidney disease, started on hemodialysis. 5. History of kidney transplant, on immunosuppressive therapy. 6. Diabetes. 7. Metastatic breast cancer. PLAN: The patient remains hemodynamically stable. Blood cultures repeated several days ago negative. We will continue her on antifungal coverage for UTI. Await for trach and PEG. Dictated By: Artis Castañeda NP /berkley/ /Document#: [id number]
[2017-01-20] MEDS ORDERED: ALBUMIN HUMAN 25% 100 ML IV ONE (14:30)
[2017-01-20] MEDS: BALSAM PERU/CASTOR OIL 60 GM TUBE TOP SCH (14:44)
[2017-01-20] MEDS: METOPROLOL 25 MG TAB NGT SCH ×2 (15:20→20:54)
[2017-01-20] MEDS: SENNA TAB NGT SCH (20:54)
[2017-01-20] MEDS: MIRTAZAPINE 15 MG TAB NGT SCH (20:54)
[2017-01-21] VITALS (59 sets, daily range): BP systolic 98–197; BP diastolic 43–106; PULSE 64–123; RESP 8–24
--- NOTE | 2017-01-21 00:14 | CONS ---
Date/Time of Note Date/Time of Note DATE: 01/21/17 TIME: 00:13 Assessment/Plan Assessment/Plan Chief Complaint/Hosp Course History of breast cancer with lung metastasis. The patient is on medical management. on Faslodex as outpt Anemia. Monitor hemoglobin and hematocrit levels. LEUKOCYTOSIS [employer]OR s/p cardiopulmonary arrest: Most likely due to pulmonary arrest P afib: currently in NSR History of renal failure status post renal transplant Acute on chronic hypoxemic hypercapnic respiratory failure status post tracheostomy currently on the vent POST THORACENTESIS CYTOLOGY- neg Shock: currently blood pressure has improved Chronic obstructive pulmonary disease exacerbation. Congestive heart failure exacerbation. Hypothyroidism. Diabetes. Continue current insulin regimen. Pulmonary hypertension. Depression. Problems: Consultation Date/Type/Reason Admit Date/Time Jan 05, 2017 at 00:15 Initial Consult Date 01/05/17 Type of Consultation: [facility] Referring Provider: SUSAN SIMENTAL DO 24 HR Interval Summary Free Text/Dictation ALL NOTED D/W RN Exam/Review of Systems Vital Signs Vitals Vital Signs Date Time Temp Pulse Resp B/P Pulse Ox O2 Delivery O2 Flow Rate FiO2 01/20/17 23:30 72 15 132/58 100 01/20/17 23:00 Mechanical Ventilator 01/20/17 22:44 30 01/20/17 19:30 97.5 Intake and Output 01/20/17 01/20/17 01/21/17 15:00 23:00 07:00 Intake Total 541.56 ml 295.04 ml 4.38 ml Output Total 528 ml 9 ml Balance 13.56 ml 286.04 ml 4.38 ml Exam HEENT: Head is normocephalic. NECK: Supple. HEART: Regular rate. LUNGS: Show diminished breath sounds base. Positive rhonchi. ABDOMEN: Soft, nontender to palpation. No rebound or guarding. EXTREMITIES: Negative for clubbing, cyanosis. No edema. DERMATOLOGIC: Clean. No rashes. MUSCULOSKELETAL: No joint effusion. NEUROLOGIC: No change in exam. Results Result Diagram: 01/20/17 0455 01/20/17 0455 Results 24 hrs Laboratory Tests Test 01/20/17 00:29 01/20/17 04:55 01/20/17 05:16 01/20/17 09:47 Bedside Glucose 159 176 159 White Blood Count 21.3 H Red Blood Count 2.79 L Hemoglobin 8.5 L Hematocrit 25.6 L Mean Corpuscular Volume 91.8 Mean Corpuscular Hemoglobin 30.5 Mean Corpuscular Hemoglobin Concent 33.2 Red Cell Distribution Width 15.7 H Platelet Count 250 Mean Platelet Volume 10.5 H Neutrophils % 94.1 H Lymphocytes % 1.2 L Monocytes % 3.1 Eosinophils % 0.7 Basophils % 0.1 Nucleated Red Blood Cells % 0.0 Neutrophils # 20.0 H Lymphocytes # 0.3 L Monocytes # 0.7 Eosinophils # 0.1 Basophils # 0.0 Nucleated Red Blood Cells # 0.0 Sodium Level 129 L Potassium Level 4.4 Chloride Level 96 L Carbon Dioxide Level 26 Anion Gap 11 Blood Urea Nitrogen 64 H Creatinine 2.86 H Glucose Level 152 Calcium Level 9.2 Phosphorus Level 4.2 Magnesium Level 2.5 Test 01/20/17 10:35 01/20/17 14:17 01/20/17 17:31 01/20/17 20:57 Bedside Glucose 190 169 157 184 Medications Medications Current Medications Naloxone HCl (Narcan) 0.4 mg Q4 PRN IV SEDATION; Start 01/05/17 at 01:30 Bisacodyl (Dulcolax Supp) 10 mg DAILY [place] Last administered on 01/20/17 09:42; Admin Dose 10 MG; Start 01/06/17 at 09:00 Budesonide (Pulmicort (Neb)) 0.25 mg BID NEB Last administered on 01/20/17 22: 43; Admin Dose 0.25 MG; Start 01/05/17 at 10:30 Fluticasone Propionate (Flonase 0.05% Nasal) 1 spray DAILY NASAL Last administered on 01/20/17 09:44; Admin Dose 1 SPRAY; Start 01/05/17 at 11:00 Fulvestrant (Faslodex) 500 mg Q28D IM ; Start 01/29/17 at 09:00 Insulin Glargine (Lantus) 18 unit DAILY SC Last administered on 01/20/17 10:37 ; Admin Dose 18 UNIT; Start 01/05/17 at 10:30 Magnesium Hydroxide (Milk Of Mag) 30 ml BID PRN PO CONSTIPATION Last administered on 01/16/17 09:09; Admin Dose 30 ML; Start 01/05/17 at 10:30 Nitroglycerin (Nitroglycerin 2% Oint) 0.5 inch Q6 PRN TD CHEST PAIN; Start 03/13 at 10:30 Ondansetron HCl (Zofran Inj) 4 mg Q6H PRN IV NAUSEA Last administered on 09:09; Admin Dose 4 MG; Start 01/05/17 at 10:30 Prednisone (Prednisone) 5 mg DAILY PO Last administered on 01/20/17 09:41; Admin Dose 5 MG; Start 01/05/17 at 12:00 Prednisone (Prednisone) 3 mg DAILY PO Last administered on 01/20/17 09:41; Admin Dose 3 MG; Start 01/05/17 at 12:00 Miscellaneous Information 1 ea NOTE XX ; Start 01/05/17 at 11:00 Glucose (Glutose) 15 gm Q15M PRN PO DECREASED GLUCOSE; Start 01/05/17 at 11:00 Glucose (Glutose) 22.5 gm Q15M PRN PO DECREASED GLUCOSE; Start 01/05/17 at 11: 00 Dextrose (D50w Syringe) 25 ml Q15M PRN IV DECREASED GLUCOSE Last administered on 01/09/17 04:45; Admin Dose 25 ML; Start 01/05/17 at 11:00 Dextrose (D50w Syringe) 50 ml Q15M PRN IV DECREASED GLUCOSE Last administered on 01/08/17 21:33; Admin Dose 50 ML; Start 01/05/17 at 11:00 Glucagon (Glucagen) 1 mg Q15M PRN IM DECREASED GLUCOSE; Start 01/05/17 at 11:00 Glucose (Glutose) 15 gm Q15M PRN BUCCAL DECREASED GLUCOSE; Start 01/05/17 at 11 :00 Insulin Aspart NOVOLOG *MILD* ALGORI... Q4 SC Last administered on 01/20/17 20 :59; Admin Dose 2 UNIT; Start 01/05/17 at 13:00 Fentanyl 100 ml @ 2.5 mls/hr TITRATE IV Last administered on 01/07/17 02:25; Admin Dose 7.5 MLS/HR; Start 01/06/17 at 09:30 Norepinephrine/ Dextrose (Levophed/D5W) 500 ml @ 0 mls/hr TITRATE IV ; Start 04/12 at 13:30 Bumetanide 1 mg 1 mg BID IV Last administered on 01/13/17 21:06; Admin Dose 1 MG; Start 01/08/17 at 09:00; Status Future Hold Propofol (Diprivan) 100 ml @ 2.19 mls/hr Q12H IV Last administered on 07:04; Admin Dose 15.28 MLS/HR; Start 01/08/17 at 16:00 Miscellaneous Information (*Order Clarification Bulletin) FULVESTRANT 250 MG/5 ML SYG: PLE... Q8H XX ; Start 01/26/17 at 09:00 Acetaminophen (Tylenol Tab) 650 mg Q6H PRN NGT PAIN AND OR ELEVATED TEMP; Start 01/17/17 at 22:30 Apixaban (Eliquis) 2.5 mg BID NGT Last administered on 01/18/17 08:20; Admin Dose 2.5 MG; Start 01/17/17 at 21:00; Status Future Hold Ascorbic Acid (Vitamin C) 500 mg BID NGT Last administered on 01/20/17 20:54; Admin Dose 500 MG; Start 01/17/17 at 21:00 Levothyroxine Sodium (Synthroid) 75 mcg DAILY@06 NGT Last administered on 05:42; Admin Dose 75 MCG; Start 01/18/17 at 06:00 Loratadine (Claritin) 10 mg DAILY NGT Last administered on 01/20/17 09:40; Admin Dose 10 MG; Start 01/18/17 at 09:00 Magnesium Oxide (Mag-Ox 400) 400 mg DAILY NGT Last administered on 01/19/17 09 :24; Admin Dose 400 MG; Start 01/18/17 at 09:00 Metoprolol Tartrate (Lopressor) 25 mg BID NGT Last administered on 01/20/17 20 :54; Admin Dose 25 MG; Start 01/17/17 at 21:00 Mirtazapine (Remeron) 15 mg HS NGT Last administered on 01/20/17 20:54; Admin Dose 15 MG; Start 01/17/17 at 21:00 Oxcarbazepine (Trileptal) 600 mg BID NGT Last administered on 01/20/17 20:53; Admin Dose 600 MG; Start 01/17/17 at 21:00 Senna (Senokot) 1 tab HS NGT Last administered on 01/20/17 20:54; Admin Dose 1 TAB; Start 01/17/17 at 21:00 Sertraline HCl (Zoloft) 75 mg DAILY NGT Last administered on 01/20/17 09:40; Admin Dose 75 MG; Start 01/18/17 at 09:00 Sildenafil Citrate (Revatio) 20 mg TID NGT Last administered on 01/20/17 20:53 ; Admin Dose 20 MG; Start 01/17/17 at 21:00 Tacrolimus (Prograf) 2 mg QPM NGT Last administered on 01/20/17 20:55; Admin Dose 2 MG; Start 01/17/17 at 21:00 Docusate Sodium (Colace Liquid Cup) 100 mg BID NGT Last administered on 20:53; Admin Dose 100 MG; Start 01/17/17 at 21:00 Voriconazole (Vfend) 200 mg BID PO Last administered on 01/20/17 20:54; Admin Dose 200 MG; Start 01/19/17 at 21:00 Famotidine (Pepcid) 20 mg DAILY NGT Last administered on 01/20/17 09:42; Admin Dose 20 MG; Start 01/20/17 at 09:00 SHANICE DAVENPORT MD Jan 21, 2017 00:14
[2017-01-21] MEDS: INSULIN ASPART [NOVOLOG] 3 ML PEN SC SCH ×6 (01:19→21:00)
[2017-01-21] MEDS: IPRATROPIUM (HFA) 12.9 GM INHALER INH SCH ×4 (02:01→19:09)
[2017-01-21] MEDS: ALBUTEROL 18 GM INHALER INH SCH ×4 (02:02→19:09)
[2017-01-21 05:25] LABS: ABNORMAL IP MESSAGE 1; BASOPHILS % 0.1 % (0.0-2.0); EOSINOPHILS # 0.3 10^3/ul (0.0-0.5); EOSINOPHILS % 1.4 % (0.0-7.0); HEMATOCRIT 23.5 % (37.0-47.0); HEMOGLOBIN 7.6 g/dl (12.0-16.0); LYMPHOCYTES # 0.4 10^3/ul (0.8-2.9); MEAN CORPUSCULAR HEMOGLOBIN 30.2 pg (29.0-33.0); MEAN CORPUSCULAR HGB CONC 32.3 g/dl (32.0-37.0); MEAN CORPUSCULAR VOLUME 93.3 fl (82.0-101.0); MEAN PLATELET VOLUME 10.3 fl (7.4-10.4); MONOCYTE # 0.7 10^3/ul (0.3-0.9); MONOCYTES % 3.4 % (0.0-11.0); NEUTROPHIL # 17.5 10^3/ul (1.6-7.5); NEUTROPHILS % 92.3 % (39.0-77.0); PLATELET COUNT 228 10^3/UL (140-415); RED BLOOD COUNT 2.52 10^6/ul (4.20-5.40); RED CELL DISTRIBUTION WIDTH 15.9 % (11.5-14.5)
[2017-01-21 05:34] LABS: POSITIVE DIFF @See below
[2017-01-21] MEDS: LEVOTHYROXINE 75 MCG TAB NGT SCH (05:47)
[2017-01-21 05:52] LABS: CREATININE 2.99 mg/dl (0.44-1.00); MAGNESIUM 2.5 mg/dl (1.7-2.5); PHOSPHORUS 4.3 mg/dl (2.5-4.9); POTASSIUM 4.4 mmol/L (3.5-5.1)
--- NOTE | 2017-01-21 08:21 | CONS ---
Date/Time of Note Date/Time of Note DATE: 01/21/17 TIME: 08:19 Consult Date/Type/Reason Admit Date/Time Jan 05, 2017 at 00:15 Initial Consult Date 01/05/17 Type of Consultation: cardiology Ordering Provider: SUSAN SIMENTAL DO Subjective CARDIOLOGY FOLLOW UP NOTE: D/W Staff and rhythm was reviewed. pt has remained in Afib. HR has been stable pt still remains on vent. pt was extubated on 01/07/17 but had to be re- intubated again the same night due to resp distress even on BIPAP. NO reports of any chest pain or pressure S/P PEG 01/19/17 Awaiting trach now OBJECTIVE: General: intubated on vent. HEENT: NC/AT. pupils are equal. round. NECK: NO JVD. no stridor. CV:irregularly irregular. systolic murmur; no gallop or rubs. PULM: no wheezing, + mild rhonchi. GI: SOFT, NT, ND, no rebound or guarding S/P PEG Extremity: trace B/L LE edema. no clubbing. neuro: sedated now. Psych: unable to assess rectal: deferred : normal ECHO 12/16/16: Personally reviewed 1. Normal left ventricular systolic function. Normal left ventricular cavity size. Moderate concentric left ventricular hypertrophy. Ejection fraction is visually estimated at 65 %. Abnormal Diastolic Function. 2. There is moderate enlargement of left atrium. 3. Mild mitral leaflet calcification. Mild mitral annular calcification. Trace mitral regurgitation. 4. Aortic sclerosis without stenosis. Trace aortic valve regurgitation. 5. Normal appearance of the tricuspid valve. Estimated peak PA systolic pressure 38 mmHg. There is mild tricuspid regurgitation. Objective Vital Signs Date Time Temp Pulse Resp B/P Pulse Ox O2 Delivery O2 Flow Rate FiO2 01/21/17 06:30 85 11 115/47 99 Mechanical Ventilator 01/21/17 05:29 30 01/21/17 03:30 98.1 Intake and Output 01/20/17 01/20/17 01/21/17 15:00 23:00 07:00 Intake Total 541.56 ml 375.04 ml 160.66 ml Output Total 528 ml 9 ml 30 ml Balance 13.56 ml 366.04 ml 130.66 ml Results/Medications Result Diagram: 01/21/17 0500 01/21/17 0500 Results 24 hrs Laboratory Tests Test 01/20/17 09:47 01/20/17 10:35 01/20/17 14:17 01/20/17 17:31 Bedside Glucose 159 190 169 157 Test 01/20/17 20:57 01/21/17 01:17 01/21/17 05:00 01/21/17 05:47 Bedside Glucose 184 166 156 White Blood Count 19.0 H Red Blood Count 2.52 L Hemoglobin 7.6 L Hematocrit 23.5 L Mean Corpuscular Volume 93.3 Mean Corpuscular Hemoglobin 30.2 Mean Corpuscular Hemoglobin Concent 32.3 Red Cell Distribution Width 15.9 H Platelet Count 228 Mean Platelet Volume 10.3 Neutrophils % 92.3 H Lymphocytes % 2.0 L Monocytes % 3.4 Eosinophils % 1.4 Basophils % 0.1 Nucleated Red Blood Cells % 0.0 Neutrophils # 17.5 H Lymphocytes # 0.4 L Monocytes # 0.7 Eosinophils # 0.3 Basophils # 0.0 Nucleated Red Blood Cells # 0.0 Sodium Level 129 L Potassium Level 4.4 Chloride Level 95 L Carbon Dioxide Level 25 Anion Gap 13 Blood Urea Nitrogen 64 H Creatinine 2.99 H Glucose Level 158 Calcium Level 9.0 Phosphorus Level 4.3 Magnesium Level 2.5 Medications Current Medications Naloxone HCl (Narcan) 0.4 mg Q4 PRN IV SEDATION; Start 01/05/17 at 01:30 Bisacodyl (Dulcolax Supp) 10 mg DAILY [place] Last administered on 01/20/17 09:42; Admin Dose 10 MG; Start 01/06/17 at 09:00 Budesonide (Pulmicort (Neb)) 0.25 mg BID NEB Last administered on 01/20/17 22: 43; Admin Dose 0.25 MG; Start 01/05/17 at 10:30 Fluticasone Propionate (Flonase 0.05% Nasal) 1 spray DAILY NASAL Last administered on 01/20/17 09:44; Admin Dose 1 SPRAY; Start 01/05/17 at 11:00 Fulvestrant (Faslodex) 500 mg Q28D IM ; Start 01/29/17 at 09:00 Insulin Glargine (Lantus) 18 unit DAILY SC Last administered on 01/20/17 10:37 ; Admin Dose 18 UNIT; Start 01/05/17 at 10:30 Magnesium Hydroxide (Milk Of Mag) 30 ml BID PRN PO CONSTIPATION Last administered on 01/16/17 09:09; Admin Dose 30 ML; Start 01/05/17 at 10:30 Nitroglycerin (Nitroglycerin 2% Oint) 0.5 inch Q6 PRN TD CHEST PAIN; Start 03/13 at 10:30 Ondansetron HCl (Zofran Inj) 4 mg Q6H PRN IV NAUSEA Last administered on 09:09; Admin Dose 4 MG; Start 01/05/17 at 10:30 Prednisone (Prednisone) 5 mg DAILY PO Last administered on 01/20/17 09:41; Admin Dose 5 MG; Start 01/05/17 at 12:00 Prednisone (Prednisone) 3 mg DAILY PO Last administered on 01/20/17 09:41; Admin Dose 3 MG; Start 01/05/17 at 12:00 Miscellaneous Information 1 ea NOTE XX ; Start 01/05/17 at 11:00 Glucose (Glutose) 15 gm Q15M PRN PO DECREASED GLUCOSE; Start 01/05/17 at 11:00 Glucose (Glutose) 22.5 gm Q15M PRN PO DECREASED GLUCOSE; Start 01/05/17 at 11: 00 Dextrose (D50w Syringe) 25 ml Q15M PRN IV DECREASED GLUCOSE Last administered on 01/09/17 04:45; Admin Dose 25 ML; Start 01/05/17 at 11:00 Dextrose (D50w Syringe) 50 ml Q15M PRN IV DECREASED GLUCOSE Last administered on 01/08/17 21:33; Admin Dose 50 ML; Start 01/05/17 at 11:00 Glucagon (Glucagen) 1 mg Q15M PRN IM DECREASED GLUCOSE; Start 01/05/17 at 11:00 Glucose (Glutose) 15 gm Q15M PRN BUCCAL DECREASED GLUCOSE; Start 01/05/17 at 11 :00 Insulin Aspart NOVOLOG *MILD* ALGORI... Q4 SC Last administered on 01/21/17 05 :53; Admin Dose 1 UNIT; Start 01/05/17 at 13:00 Fentanyl 100 ml @ 2.5 mls/hr TITRATE IV Last administered on 01/07/17 02:25; Admin Dose 7.5 MLS/HR; Start 01/06/17 at 09:30 Norepinephrine/ Dextrose (Levophed/D5W) 500 ml @ 0 mls/hr TITRATE IV ; Start 04/12 at 13:30 Bumetanide 1 mg 1 mg BID IV Last administered on 01/13/17 21:06; Admin Dose 1 MG; Start 01/08/17 at 09:00; Status Future Hold Propofol (Diprivan) 100 ml @ 2.19 mls/hr Q12H IV Last administered on 07:04; Admin Dose 15.28 MLS/HR; Start 01/08/17 at 16:00 Miscellaneous Information (*Order Clarification Bulletin) FULVESTRANT 250 MG/5 ML SYG: PLE... Q8H XX ; Start 01/26/17 at 09:00 Acetaminophen (Tylenol Tab) 650 mg Q6H PRN NGT PAIN AND OR ELEVATED TEMP; Start 01/17/17 at 22:30 Apixaban (Eliquis) 2.5 mg BID NGT Last administered on 01/18/17 08:20; Admin Dose 2.5 MG; Start 01/17/17 at 21:00; Status Future Hold Ascorbic Acid (Vitamin C) 500 mg BID NGT Last administered on 01/20/17 20:54; Admin Dose 500 MG; Start 01/17/17 at 21:00 Levothyroxine Sodium (Synthroid) 75 mcg DAILY@06 NGT Last administered on 05:47; Admin Dose 75 MCG; Start 01/18/17 at 06:00 Loratadine (Claritin) 10 mg DAILY NGT Last administered on 01/20/17 09:40; Admin Dose 10 MG; Start 01/18/17 at 09:00 Magnesium Oxide (Mag-Ox 400) 400 mg DAILY NGT Last administered on 01/19/17 09 :24; Admin Dose 400 MG; Start 01/18/17 at 09:00 Metoprolol Tartrate (Lopressor) 25 mg BID NGT Last administered on 01/20/17 20 :54; Admin Dose 25 MG; Start 01/17/17 at 21:00 Mirtazapine (Remeron) 15 mg HS NGT Last administered on 01/20/17 20:54; Admin Dose 15 MG; Start 01/17/17 at 21:00 Oxcarbazepine (Trileptal) 600 mg BID NGT Last administered on 01/20/17 20:53; Admin Dose 600 MG; Start 01/17/17 at 21:00 Senna (Senokot) 1 tab HS NGT Last administered on 01/20/17 20:54; Admin Dose 1 TAB; Start 01/17/17 at 21:00 Sertraline HCl (Zoloft) 75 mg DAILY NGT Last administered on 01/20/17 09:40; Admin Dose 75 MG; Start 01/18/17 at 09:00 Sildenafil Citrate (Revatio) 20 mg TID NGT Last administered on 01/20/17 20:53 ; Admin Dose 20 MG; Start 01/17/17 at 21:00 Tacrolimus (Prograf) 2 mg QPM NGT Last administered on 01/20/17 20:55; Admin Dose 2 MG; Start 01/17/17 at 21:00 Docusate Sodium (Colace Liquid Cup) 100 mg BID NGT Last administered on 20:53; Admin Dose 100 MG; Start 01/17/17 at 21:00 Voriconazole (Vfend) 200 mg BID PO Last administered on 01/20/17 20:54; Admin Dose 200 MG; Start 01/19/17 at 21:00 Famotidine (Pepcid) 20 mg DAILY NGT Last administered on 01/20/17 09:42; Admin Dose 20 MG; Start 01/20/17 at 09:00 Assessment/Plan Chief Complaint/Hosp Course Assessment: 1. s/p cardiopulmonary arrest: Most likely due to pulmonary arrest 2. P afib: 3. History of renal failure status post renal transplant: now with KATI on CKD 4. Acute on chronic hypoxemic hypercapnic respiratory failure status post reintubation: currently on the vent 5. Shock: resolved now. 6. ANEMIA 7. breast cancer 8. history of HTN: 9. anxiety 10. DM 11. Hypothyroidism: on synthroid. 12. pleural effusion : s/p thoracentesis 13. Dysphagia: s/p PEG Recommendations: cont eliquis as long as no signs of active bleeding and no surgery/ procedure is planned. (on hold now awaiting trach ) vent support for now anti- rejection medications to be adjusted as per renal team. HD as per renal. cont DM control thyroid supplement betablocker as tolerated. correct lytes prn cont tele monitoring transfusion prn cont ICU care. Thank you for this referral I will continue to follow along with you. AUGUSTINA MALDONADO MD [facility] Problems: AUGUSTINA MALDONADO MD Jan 21, 2017 08:20
--- NOTE | 2017-01-21 08:27 | RADRPT ---
PROCEDURE: XR Chest. CLINICAL INDICATION: Shortness of breath. TECHNIQUE: Single frontal view. COMPARISON: 01/17/2017. FINDINGS: The endotracheal tube remains in satisfactory position. Nasogastric tube has been removed. There is bilateral interstitial pulmonary disease, unchanged. The heart is enlarged. Surgical clips are present overlying the left side of the chest and left axil la. There are small bilateral pleural effusions, larger than seen previously. There is no pneumothorax. IMPRESSION: 1. Larger bilateral pleural effusions. 2. Nasogastric tube removed. 3. No other change from 01/17 see. RPTAT: QQ .Jarvis Block MD, MD Date Time Electronically viewed and signed by .Jarvis Block MD, MD on 01/21/2017 08:26 .R/
[2017-01-21] MEDS: predniSONE 1 MG TAB PO SCH (08:40)
[2017-01-21] MEDS: predniSONE 5 MG TAB PO SCH (08:40)
[2017-01-21] MEDS: TACROLIMUS 0.5 MG CAP NGT SCH ×2 (08:40→21:20)
[2017-01-21] MEDS: OXCARBAZEPINE 300 MG TAB NGT SCH ×2 (08:40→21:20)
[2017-01-21] MEDS: LORATADINE 10 MG TAB NGT SCH (08:41)
[2017-01-21] MEDS: FAMOTIDINE 20 MG TAB NGT SCH (08:41)
[2017-01-21] MEDS: SERTRALINE 50 MG TAB NGT SCH (08:41)
[2017-01-21] MEDS: ASCORBIC ACID 500 MG TAB NGT SCH ×2 (08:41→21:21)
[2017-01-21] MEDS: SILDENAFIL 20 MG TAB NGT SCH ×3 (08:41→21:24)
[2017-01-21] MEDS: VORICONAZOLE 200 MG TAB PO SCH ×2 (08:41→21:28)
[2017-01-21] MEDS: METOPROLOL 25 MG TAB NGT SCH ×2 (08:42→21:22)
[2017-01-21] MEDS: FLUTICASONE 0.05% 16 GM NAS SPRAY NASAL SCH (08:42)
[2017-01-21] MEDS: BISACODYL 10 MG SUPP PR SCH (08:42)
[2017-01-21] MEDS: DOCUSATE SODIUM 10 MG/ML (10ML CUP) NGT SCH ×2 (08:42→21:21)
[2017-01-21] MEDS: BALSAM PERU/CASTOR OIL 60 GM TUBE TOP SCH (08:42)
--- NOTE | 2017-01-21 08:54 | PN ---
DATE: 01/21/2017 SUBJECTIVE DATA: The patient remains critically ill, pending trach placement. The patient had hemodialysis yesterday. No other events noted. OBJECTIVE DATA: VITAL SIGNS: Blood pressure is 115/47, respiration 11, pulse 85, temperature 98.6. HEENT: Head is normocephalic. NECK: Supple. HEART: Regular rate. LUNGS: Show diminished breath sounds at the base. ABDOMEN: Soft, nontender to palpation. No rebound or guarding. EXTREMITIES: Negative for clubbing, cyanosis. No edema. DERMATOLOGIC: Clean. No rashes. MUSCULOSKELETAL: No joint effusions. NEUROLOGIC: No change in exam. MEDICATIONS: Reviewed. LABORATORY AND DIAGNOSTIC DATA: Shows sodium 129, potassium 4.4, chloride 95, bicarb is 25, BUN 64, creatinine 2.99. White count 19.9, hemoglobin 7.6, crit 23.5, platelet count 228. ASSESSMENT AND PLAN: 1. 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 Etiology of acute kidney injury secondary to acute tubular necrosis. The patient is currently dialysis dependent. We will monitor for signs of recovery. Anticipate dialysis in the next 1-2 days. 2. Congestive heart failure exacerbation. Continue medical management. 3. Hyponatremia. Continue dialysis on a 140 sodium bath. 4. Paroxysmal atrial fibrillation. Continue current medical management. 5. Sepsis, status post shock secondary to pneumonia. Continue antibiotic regimen. 6. Fungal urinary tract infection. Continue antifungal therapy. 7. History of end-stage renal disease, status post renal transplant with chronic allograft failure. The patient is currently in acute kidney injury as stated above. Continue to monitor. Continue immunosuppressive regimen. 8. Hypothyroidism. Continue Synthroid. 9. Anemia. Monitor H and H levels. 10. Diabetes. Continue Accu-Cheks and insulin sliding scale. 11. Pulmonary hypertension. Continue to monitor. 12. Dysphagia. Continue tube feeding. 13. History of breast cancer. 14. Gastrointestinal and deep venous thrombosis prophylaxis. Please note, I spent over 30 minutes of critical care time with this patient. Dictated By: Cameron Rosenthal DO /[email or web address]/[email or web address] /Document#: [id number]
[2017-01-21] MEDS: MAGNESIUM OXIDE 400 MG TAB NGT SCH (09:00)
[2017-01-21] MEDS: INSULIN GLARGINE [LANtus] 3 ML PEN SC SCH (09:15)
[2017-01-21] MEDS: BUDESONIDE (NEB) 0.25 MG/2 ML AMP NEB SCH ×2 (09:34→20:00)
--- NOTE | 2017-01-21 10:05 | CONS ---
Date/Time of Note Date/Time of Note DATE: 01/21/17 TIME: 10:04 Consult Date/Type/Reason Admit Date/Time Jan 05, 2017 at 00:15 Initial Consult Date 01/05/17 Type of Consultation: Pulmonary Ordering Provider: SUSAN SIMENTAL Patient remains intubated on mechanical ventilation. Currently stable. Pending tracheostomy. No hemodynamic compromise. Objective Vital Signs Date Time Temp Pulse Resp B/P Pulse Ox O2 Delivery O2 Flow Rate FiO2 01/21/17 09:25 97 14 100 30 01/21/17 06:30 115/47 Mechanical Ventilator 01/21/17 03:30 98.1 Intake and Output 01/20/17 01/20/17 01/21/17 15:00 23:00 07:00 Intake Total 541.56 ml 375.04 ml 160.66 ml Output Total 528 ml 9 ml 30 ml Balance 13.56 ml 366.04 ml 130.66 ml Exam PHYSICAL EXAMINATION GENERAL: Elderly lady intubated on mechanical ventilation appears comfortable at rest VITAL SIGNS: see below. HEENT: Pupils equal, round, and reactive to light. CARDIAC: S1, S2, 1/6 systolic ejection murmur CHEST: Diminished air entry bilaterally. ABDOMEN: Mildly distended. Bowel sounds present no guarding or rebound EXTREMITIES: No cyanosis, clubbing edema +1 NEUROLOGIC: Generalized weakness Results/Medications Result Diagram: 01/21/17 0500 01/21/17 0500 Results 24 hrs Laboratory Tests Test 01/20/17 10:35 01/20/17 14:17 01/20/17 17:31 01/20/17 20:57 Bedside Glucose 190 169 157 184 Test 01/21/17 01:17 01/21/17 05:00 01/21/17 05:47 01/21/17 09:13 Bedside Glucose 166 156 122 White Blood Count 19.0 H Red Blood Count 2.52 L Hemoglobin 7.6 L Hematocrit 23.5 L Mean Corpuscular Volume 93.3 Mean Corpuscular Hemoglobin 30.2 Mean Corpuscular Hemoglobin Concent 32.3 Red Cell Distribution Width 15.9 H Platelet Count 228 Mean Platelet Volume 10.3 Neutrophils % 92.3 H Lymphocytes % 2.0 L Monocytes % 3.4 Eosinophils % 1.4 Basophils % 0.1 Nucleated Red Blood Cells % 0.0 Neutrophils # 17.5 H Lymphocytes # 0.4 L Monocytes # 0.7 Eosinophils # 0.3 Basophils # 0.0 Nucleated Red Blood Cells # 0.0 Sodium Level 129 L Potassium Level 4.4 Chloride Level 95 L Carbon Dioxide Level 25 Anion Gap 13 Blood Urea Nitrogen 64 H Creatinine 2.99 H Glucose Level 158 Calcium Level 9.0 Phosphorus Level 4.3 Magnesium Level 2.5 Medications Current Medications Naloxone HCl (Narcan) 0.4 mg Q4 PRN IV SEDATION; Start 01/05/17 at 01:30 Bisacodyl (Dulcolax Supp) 10 mg DAILY ME Last administered on 01/21/17 08:42; Admin Dose 10 MG; Start 01/06/17 at 09:00 Budesonide (Pulmicort (Neb)) 0.25 mg BID NEB Last administered on 01/21/17 09: 34; Admin Dose 0.25 MG; Start 01/05/17 at 10:30 Fluticasone Propionate (Flonase 0.05% Nasal) 1 spray DAILY NASAL Last administered on 01/21/17 08:42; Admin Dose 1 SPRAY; Start 01/05/17 at 11:00 Fulvestrant (Faslodex) 500 mg Q28D IM ; Start 01/29/17 at 09:00 Insulin Glargine (Lantus) 18 unit DAILY SC Last administered on 01/21/17 09:15 ; Admin Dose 18 UNIT; Start 01/05/17 at 10:30 Magnesium Hydroxide (Milk Of Mag) 30 ml BID PRN PO CONSTIPATION Last administered on 01/16/17 09:09; Admin Dose 30 ML; Start 01/05/17 at 10:30 Nitroglycerin (Nitroglycerin 2% Oint) 0.5 inch Q6 PRN TD CHEST PAIN; Start 03/13 at 10:30 Ondansetron HCl (Zofran Inj) 4 mg Q6H PRN IV NAUSEA Last administered on 09:09; Admin Dose 4 MG; Start 01/05/17 at 10:30 Prednisone (Prednisone) 5 mg DAILY PO Last administered on 01/21/17 08:40; Admin Dose 5 MG; Start 01/05/17 at 12:00 Prednisone (Prednisone) 3 mg DAILY PO Last administered on 01/21/17 08:40; Admin Dose 3 MG; Start 01/05/17 at 12:00 Miscellaneous Information 1 ea NOTE XX ; Start 01/05/17 at 11:00 Glucose (Glutose) 15 gm Q15M PRN PO DECREASED GLUCOSE; Start 01/05/17 at 11:00 Glucose (Glutose) 22.5 gm Q15M PRN PO DECREASED GLUCOSE; Start 01/05/17 at 11: 00 Dextrose (D50w Syringe) 25 ml Q15M PRN IV DECREASED GLUCOSE Last administered on 01/09/17 04:45; Admin Dose 25 ML; Start 01/05/17 at 11:00 Dextrose (D50w Syringe) 50 ml Q15M PRN IV DECREASED GLUCOSE Last administered on 01/08/17 21:33; Admin Dose 50 ML; Start 01/05/17 at 11:00 Glucagon (Glucagen) 1 mg Q15M PRN IM DECREASED GLUCOSE; Start 01/05/17 at 11:00 Glucose (Glutose) 15 gm Q15M PRN BUCCAL DECREASED GLUCOSE; Start 01/05/17 at 11 :00 Insulin Aspart NOVOLOG *MILD* ALGORI... Q4 SC Last administered on 01/21/17 05 :53; Admin Dose 1 UNIT; Start 01/05/17 at 13:00 Fentanyl 100 ml @ 2.5 mls/hr TITRATE IV Last administered on 01/07/17 02:25; Admin Dose 7.5 MLS/HR; Start 01/06/17 at 09:30 Norepinephrine/ Dextrose (Levophed/D5W) 500 ml @ 0 mls/hr TITRATE IV ; Start 04/12 at 13:30 Bumetanide 1 mg 1 mg BID IV Last administered on 01/13/17 21:06; Admin Dose 1 MG; Start 01/08/17 at 09:00; Status Future Hold Propofol (Diprivan) 100 ml @ 2.19 mls/hr Q12H IV Last administered on 07:04; Admin Dose 15.28 MLS/HR; Start 01/08/17 at 16:00 Miscellaneous Information (*Order Clarification Bulletin) FULVESTRANT 250 MG/5 ML SYG: PLE... Q8H XX ; Start 01/26/17 at 09:00 Acetaminophen (Tylenol Tab) 650 mg Q6H PRN NGT PAIN AND OR ELEVATED TEMP; Start 01/17/17 at 22:30 Apixaban (Eliquis) 2.5 mg BID NGT Last administered on 01/18/17 08:20; Admin Dose 2.5 MG; Start 01/17/17 at 21:00; Status Future Hold Ascorbic Acid (Vitamin C) 500 mg BID NGT Last administered on 01/21/17 08:41; Admin Dose 500 MG; Start 01/17/17 at 21:00 Levothyroxine Sodium (Synthroid) 75 mcg DAILY@06 NGT Last administered on 05:47; Admin Dose 75 MCG; Start 01/18/17 at 06:00 Loratadine (Claritin) 10 mg DAILY NGT Last administered on 01/21/17 08:41; Admin Dose 10 MG; Start 01/18/17 at 09:00 Magnesium Oxide (Mag-Ox 400) 400 mg DAILY NGT Last administered on 01/19/17 09 :24; Admin Dose 400 MG; Start 01/18/17 at 09:00 Metoprolol Tartrate (Lopressor) 25 mg BID NGT Last administered on 01/21/17 08 :42; Admin Dose 25 MG; Start 01/17/17 at 21:00 Mirtazapine (Remeron) 15 mg HS NGT Last administered on 01/20/17 20:54; Admin Dose 15 MG; Start 01/17/17 at 21:00 Oxcarbazepine (Trileptal) 600 mg BID NGT Last administered on 01/21/17 08:40; Admin Dose 600 MG; Start 01/17/17 at 21:00 Senna (Senokot) 1 tab HS NGT Last administered on 01/20/17 20:54; Admin Dose 1 TAB; Start 01/17/17 at 21:00 Sertraline HCl (Zoloft) 75 mg DAILY NGT Last administered on 01/21/17 08:41; Admin Dose 75 MG; Start 01/18/17 at 09:00 Sildenafil Citrate (Revatio) 20 mg TID NGT Last administered on 01/21/17 08:41 ; Admin Dose 20 MG; Start 01/17/17 at 21:00 Tacrolimus (Prograf) 2 mg QPM NGT Last administered on 01/20/17 20:55; Admin Dose 2 MG; Start 01/17/17 at 21:00 Docusate Sodium (Colace Liquid Cup) 100 mg BID NGT Last administered on 08:42; Admin Dose 100 MG; Start 01/17/17 at 21:00 Voriconazole (Vfend) 200 mg BID PO Last administered on 01/21/17 08:41; Admin Dose 200 MG; Start 01/19/17 at 21:00 Famotidine (Pepcid) 20 mg DAILY NGT Last administered on 01/21/17 08:41; Admin Dose 20 MG; Start 01/20/17 at 09:00 Assessment/Plan Chief Complaint/Hosp Course IMPRESSION: 1. Hypoxemic respiratory failure. Status post thoracentesis. Failed multiple CPAP weaning trials pending tracheostomy 2. Possible altered mental status secondary to opioids. Significant anxiety component. 3. History of renal transplant. Renal insufficiency. Hyponatremia. 4. Dysphagia now with G-tube 5. Persistent leukocytosis. PLAN: 1. Continue supportive care, pending tracheostomy 2. Decrease sedation as tolerated. 3. Continue ID recommendations 4. Renal recommendations. 5. DVT and GI prophylaxis. 6. Start tube feeding once tracheostomy placed. Critical care time 40 minutes. Prognosis guarded. Problems: LESA SAMUELS [facility], [facility] Jan 21, 2017 10:05
--- NOTE | 2017-01-21 12:54 | PN ---
DATE: 01/21/2017 SUBJECTIVE DATA: No events overnight. No fevers. The patient is lying comfortably in bed. OBJECTIVE DATA: VITAL SIGNS: Temperature 98, pulse 94, respirations 12, blood pressure 124/49, saturation 99 percent on 30 FiO2. LABORATORY DATA: WBC 19, H and H 7.6 and 23.5, platelets 228, neutrophils 92.3. BUN 64, creatinine 2.99. MICROBIOLOGY: Urine culture, on January 18 grew yeast, not kvng. Blood cultures remain negative. DIAGNOSTICS: Chest x-ray this morning revealed large bilateral pleural effusions. INDWELLING: Endotracheal tube, right femoral Bandar catheter with a pigtail, Dela Cruz catheter. ANTIMICROBIALS: Voriconazole. PHYSICAL EXAMINATION: GENERAL: This is a fragile, elderly woman, who is comfortable on vent. HEENT: Head atraumatic, normocephalic. Sclerae anicteric. Buccal mucosa dry. NECK: Supple. LUNGS: Chest rise symmetrical. Breath sounds clear. Diminished at the bases. HEART: S1, S2. ABDOMEN: Soft, bowel sounds present. EXTREMITIES: With trace edema. ASSESSMENT: 1. Systemic inflammatory response syndrome with persistent leukocytosis, multifactorial. 2. Fungal urinary tract infection, remains on voriconazole. 3. Status post pneumonia. 4. Respiratory failure. 5. Bilateral pleural effusions. 6. History of kidney transplant, on immunosuppressive therapy. 7. Diabetes. 8. History of metastatic breast cancer. PLAN: The patient remains hemodynamically stable. Continue present care. Continue voriconazole. Pending trach and PEG. Dictated By: Artis Castañeda NP /[email or web address] /Document#: [id number]
[2017-01-21 14:25] LABS: HEMATOCRIT 21.6 % (37.0-47.0)
[2017-01-21 14:30] LABS: HEMOGLOBIN 6.9 g/dl (12.0-16.0)
[2017-01-21] MEDS ORDERED: SOD CHLORIDE 0.9% 250 ML IV* ONE (14:41)
[2017-01-21] MEDS: PROPOFOL 100 ML IV SCH (16:00)
--- NOTE | 2017-01-21 16:43 | CONS ---
Date/Time of Note Date/Time of Note DATE: 01/21/17 TIME: 16:43 Assessment/Plan Assessment/Plan Additional Assessment/Plan Additional Assessment/Plan 1. Respiratory failure. 2. Dysphagia. 3. Sepsis. 4. Renal failure. 5. Diabetes mellitus. 6. Breast cancer with metastasis. 7. Chronic obstructive pulmonary disease. 8. Pulmonary hypertension. 9. Atrial fibrillation. 10. Deconditioning 11. Status post renal transplant on immunosuppressive medication 12. Persistent leukocytosis 13. Respiratory failure reintubated 14. Status post PEG 15. Anemia, no evidence of active bleeding Plan Patient is tolerating feeding and will gradually increase it until the goal is achieved. Continue present care Awaiting for the tracheostomy today Consultation Date/Type/Reason Admit Date/Time Jan 05, 2017 at 00:15 Initial Consult Date 01/05/17 Type of Consultation: Pulmonary Referring Provider: SUSAN SIMENTAL DO 24 HR Interval Summary Subjective hx not possible: pt non-verbal, pt critical Exam/Review of Systems Vital Signs Vitals Vital Signs Date Time Temp Pulse Resp B/P Pulse Ox O2 Delivery O2 Flow Rate FiO2 01/21/17 15:14 66 12 100 30 01/21/17 10:00 124/49 Mechanical Ventilator 01/21/17 08:00 98.6 Intake and Output 01/20/17 01/20/17 01/21/17 15:00 23:00 07:00 Intake Total 541.56 ml 375.04 ml 160.66 ml Output Total 528 ml 9 ml 30 ml Balance 13.56 ml 366.04 ml 130.66 ml Exam Constitutional: alert, oriented, well developed Psych: nl mood/affect, no complaints Head: atraumatic, normocephalic Eyes: EOMI, PERRL, nl conjunctiva, nl lids, nl sclera ENMT: nl external ears & nose, nl lips & teeth, nl nasal mucosa & septum Neck: non-tender, supple Respiratory: clear to auscultation, normal air movement Cardiovascular: nl pulses, regular rate and rhythm Gastrointestinal: nl liver, spleen, non-tender, soft Musculoskeletal: nl extremities to inspection, nl gait and stance Extremities: normal pulses Neurological: MUSIC LIBRARY ASSISTANT II-XII intact, nl mental status, nl speech, nl strength Skin: nl turgor, No rash or lesions Lymph: nl lymph nodes Results Result Diagram: 01/21/17 1355 01/21/17 0500 Results 24 hrs Laboratory Tests Test 01/20/17 17:31 01/20/17 20:57 01/21/17 01:17 01/21/17 05:00 Bedside Glucose 157 184 166 White Blood Count 19.0 H Red Blood Count 2.52 L Hemoglobin 7.6 L Hematocrit 23.5 L Mean Corpuscular Volume 93.3 Mean Corpuscular Hemoglobin 30.2 Mean Corpuscular Hemoglobin Concent 32.3 Red Cell Distribution Width 15.9 H Platelet Count 228 Mean Platelet Volume 10.3 Neutrophils % 92.3 H Lymphocytes % 2.0 L Monocytes % 3.4 Eosinophils % 1.4 Basophils % 0.1 Nucleated Red Blood Cells % 0.0 Neutrophils # 17.5 H Lymphocytes # 0.4 L Monocytes # 0.7 Eosinophils # 0.3 Basophils # 0.0 Nucleated Red Blood Cells # 0.0 Sodium Level 129 L Potassium Level 4.4 Chloride Level 95 L Carbon Dioxide Level 25 Anion Gap 13 Blood Urea Nitrogen 64 H Creatinine 2.99 H Glucose Level 158 Calcium Level 9.0 Phosphorus Level 4.3 Magnesium Level 2.5 Test 01/21/17 05:47 01/21/17 09:13 01/21/17 13:39 01/21/17 13:55 Bedside Glucose 156 122 118 Hemoglobin 6.9 *L Hematocrit 21.6 L Medications Medications Current Medications Naloxone HCl (Narcan) 0.4 mg Q4 PRN IV SEDATION; Start 01/05/17 at 01:30 Bisacodyl (Dulcolax Supp) 10 mg DAILY MO Last administered on 01/21/17 08:42; Admin Dose 10 MG; Start 01/06/17 at 09:00 Budesonide (Pulmicort (Neb)) 0.25 mg BID NEB Last administered on 01/21/17 09: 34; Admin Dose 0.25 MG; Start 01/05/17 at 10:30 Fluticasone Propionate (Flonase 0.05% Nasal) 1 spray DAILY NASAL Last administered on 01/21/17 08:42; Admin Dose 1 SPRAY; Start 01/05/17 at 11:00 Fulvestrant (Faslodex) 500 mg Q28D IM ; Start 01/29/17 at 09:00 Insulin Glargine (Lantus) 18 unit DAILY SC Last administered on 01/21/17 09:15 ; Admin Dose 18 UNIT; Start 01/05/17 at 10:30 Magnesium Hydroxide (Milk Of Mag) 30 ml BID PRN PO CONSTIPATION Last administered on 01/16/17 09:09; Admin Dose 30 ML; Start 01/05/17 at 10:30 Nitroglycerin (Nitroglycerin 2% Oint) 0.5 inch Q6 PRN TD CHEST PAIN; Start 03/13 at 10:30 Ondansetron HCl (Zofran Inj) 4 mg Q6H PRN IV NAUSEA Last administered on 09:09; Admin Dose 4 MG; Start 01/05/17 at 10:30 Prednisone (Prednisone) 5 mg DAILY PO Last administered on 01/21/17 08:40; Admin Dose 5 MG; Start 01/05/17 at 12:00 Prednisone (Prednisone) 3 mg DAILY PO Last administered on 01/21/17 08:40; Admin Dose 3 MG; Start 01/05/17 at 12:00 Miscellaneous Information 1 ea NOTE XX ; Start 01/05/17 at 11:00 Glucose (Glutose) 15 gm Q15M PRN PO DECREASED GLUCOSE; Start 01/05/17 at 11:00 Glucose (Glutose) 22.5 gm Q15M PRN PO DECREASED GLUCOSE; Start 01/05/17 at 11: 00 Dextrose (D50w Syringe) 25 ml Q15M PRN IV DECREASED GLUCOSE Last administered on 01/09/17 04:45; Admin Dose 25 ML; Start 01/05/17 at 11:00 Dextrose (D50w Syringe) 50 ml Q15M PRN IV DECREASED GLUCOSE Last administered on 01/08/17 21:33; Admin Dose 50 ML; Start 01/05/17 at 11:00 Glucagon (Glucagen) 1 mg Q15M PRN IM DECREASED GLUCOSE; Start 01/05/17 at 11:00 Glucose (Glutose) 15 gm Q15M PRN BUCCAL DECREASED GLUCOSE; Start 01/05/17 at 11 :00 Insulin Aspart NOVOLOG *MILD* ALGORI... Q4 SC Last administered on 01/21/17 05 :53; Admin Dose 1 UNIT; Start 01/05/17 at 13:00 Fentanyl 100 ml @ 2.5 mls/hr TITRATE IV Last administered on 01/07/17 02:25; Admin Dose 7.5 MLS/HR; Start 01/06/17 at 09:30 Norepinephrine/ Dextrose (Levophed/D5W) 500 ml @ 0 mls/hr TITRATE IV ; Start 04/12 at 13:30 Bumetanide 1 mg 1 mg BID IV Last administered on 01/13/17 21:06; Admin Dose 1 MG; Start 01/08/17 at 09:00; Status Future Hold Propofol (Diprivan) 100 ml @ 2.19 mls/hr Q12H IV Last administered on 07:04; Admin Dose 15.28 MLS/HR; Start 01/08/17 at 16:00 Miscellaneous Information (*Order Clarification Bulletin) FULVESTRANT 250 MG/5 ML SYG: PLE... Q8H XX ; Start 01/26/17 at 09:00 Acetaminophen (Tylenol Tab) 650 mg Q6H PRN NGT PAIN AND OR ELEVATED TEMP; Start 01/17/17 at 22:30 Apixaban (Eliquis) 2.5 mg BID NGT Last administered on 01/18/17 08:20; Admin Dose 2.5 MG; Start 01/17/17 at 21:00; Status Future Hold Ascorbic Acid (Vitamin C) 500 mg BID NGT Last administered on 01/21/17 08:41; Admin Dose 500 MG; Start 01/17/17 at 21:00 Levothyroxine Sodium (Synthroid) 75 mcg DAILY@06 NGT Last administered on 05:47; Admin Dose 75 MCG; Start 01/18/17 at 06:00 Loratadine (Claritin) 10 mg DAILY NGT Last administered on 01/21/17 08:41; Admin Dose 10 MG; Start 01/18/17 at 09:00 Metoprolol Tartrate (Lopressor) 25 mg BID NGT Last administered on 01/21/17 08 :42; Admin Dose 25 MG; Start 01/17/17 at 21:00 Mirtazapine (Remeron) 15 mg HS NGT Last administered on 01/20/17 20:54; Admin Dose 15 MG; Start 01/17/17 at 21:00 Oxcarbazepine (Trileptal) 600 mg BID NGT Last administered on 01/21/17 08:40; Admin Dose 600 MG; Start 01/17/17 at 21:00 Senna (Senokot) 1 tab HS NGT Last administered on 01/20/17 20:54; Admin Dose 1 TAB; Start 01/17/17 at 21:00 Sertraline HCl (Zoloft) 75 mg DAILY NGT Last administered on 01/21/17 08:41; Admin Dose 75 MG; Start 01/18/17 at 09:00 Sildenafil Citrate (Revatio) 20 mg TID NGT Last administered on 01/21/17 13:42 ; Admin Dose 20 MG; Start 01/17/17 at 21:00 Tacrolimus (Prograf) 2 mg QPM NGT Last administered on 01/20/17 20:55; Admin Dose 2 MG; Start 01/17/17 at 21:00 Docusate Sodium (Colace Liquid Cup) 100 mg BID NGT Last administered on 08:42; Admin Dose 100 MG; Start 01/17/17 at 21:00 Voriconazole (Vfend) 200 mg BID PO Last administered on 01/21/17 08:41; Admin Dose 200 MG; Start 01/19/17 at 21:00 Famotidine (Pepcid) 20 mg DAILY NGT Last administered on 01/21/17 08:41; Admin Dose 20 MG; Start 01/20/17 at 09:00 MEMO WILHELM MD Jan 21, 2017 16:43
--- NOTE | 2017-01-21 18:27 | CONS ---
Date/Time of Note Date/Time of Note DATE: 01/21/17 TIME: 18:27 Assessment/Plan Assessment/Plan Chief Complaint/Hosp Course History of breast cancer with lung metastasis. The patient is on medical management. on Faslodex as outpt Anemia. Monitor hemoglobin and hematocrit levels. [employer] s/p cardiopulmonary arrest: Most likely due to pulmonary arrest P afib: currently in NSR History of renal failure status post renal transplant Acute on chronic hypoxemic hypercapnic respiratory failure status post tracheostomy currently on the vent POST THORACENTESIS CYTOLOGY- neg Shock: currently blood pressure has improved Chronic obstructive pulmonary disease exacerbation. Congestive heart failure exacerbation. Hypothyroidism. Diabetes. Continue current insulin regimen. Pulmonary hypertension. Depression. Problems: Consultation Date/Type/Reason Admit Date/Time Jan 05, 2017 at 00:15 Initial Consult Date 01/05/17 Type of Consultation: [facility] Referring Provider: SUSAN SIMENTAL DO 24 HR Interval Summary Free Text/Dictation ALL NOTED Exam/Review of Systems Vital Signs Vitals Vital Signs Date Time Temp Pulse Resp B/P Pulse Ox O2 Delivery O2 Flow Rate FiO2 01/21/17 17:24 96 15 100 30 01/21/17 17:00 102/50 Mechanical Ventilator 01/21/17 16:00 98.2 Intake and Output 01/20/17 01/20/17 01/21/17 15:00 23:00 07:00 Intake Total 541.56 ml 375.04 ml 160.66 ml Output Total 528 ml 9 ml 30 ml Balance 13.56 ml 366.04 ml 130.66 ml Exam HEENT: Head is normocephalic. NECK: Supple. HEART: Regular rate. LUNGS: Show diminished breath sounds base. Positive rhonchi. ABDOMEN: Soft, nontender to palpation. No rebound or guarding. EXTREMITIES: Negative for clubbing, cyanosis. No edema. DERMATOLOGIC: Clean. No rashes. MUSCULOSKELETAL: No joint effusion. NEUROLOGIC: No change in exam. Results Result Diagram: 01/21/17 1355 01/21/17 0500 Results 24 hrs Laboratory Tests Test 01/20/17 20:57 01/21/17 01:17 01/21/17 05:00 01/21/17 05:47 Bedside Glucose 184 166 156 White Blood Count 19.0 H Red Blood Count 2.52 L Hemoglobin 7.6 L Hematocrit 23.5 L Mean Corpuscular Volume 93.3 Mean Corpuscular Hemoglobin 30.2 Mean Corpuscular Hemoglobin Concent 32.3 Red Cell Distribution Width 15.9 H Platelet Count 228 Mean Platelet Volume 10.3 Neutrophils % 92.3 H Lymphocytes % 2.0 L Monocytes % 3.4 Eosinophils % 1.4 Basophils % 0.1 Nucleated Red Blood Cells % 0.0 Neutrophils # 17.5 H Lymphocytes # 0.4 L Monocytes # 0.7 Eosinophils # 0.3 Basophils # 0.0 Nucleated Red Blood Cells # 0.0 Sodium Level 129 L Potassium Level 4.4 Chloride Level 95 L Carbon Dioxide Level 25 Anion Gap 13 Blood Urea Nitrogen 64 H Creatinine 2.99 H Glucose Level 158 Calcium Level 9.0 Phosphorus Level 4.3 Magnesium Level 2.5 Test 01/21/17 09:13 01/21/17 13:39 01/21/17 13:55 01/21/17 18:07 Bedside Glucose 122 118 126 Hemoglobin 6.9 *L Hematocrit 21.6 L Medications Medications Current Medications Naloxone HCl (Narcan) 0.4 mg Q4 PRN IV SEDATION; Start 01/05/17 at 01:30 Bisacodyl (Dulcolax Supp) 10 mg DAILY ME Last administered on 01/21/17 08:42; Admin Dose 10 MG; Start 01/06/17 at 09:00 Budesonide (Pulmicort (Neb)) 0.25 mg BID NEB Last administered on 01/21/17 09: 34; Admin Dose 0.25 MG; Start 01/05/17 at 10:30 Fluticasone Propionate (Flonase 0.05% Nasal) 1 spray DAILY NASAL Last administered on 01/21/17 08:42; Admin Dose 1 SPRAY; Start 01/05/17 at 11:00 Fulvestrant (Faslodex) 500 mg Q28D IM ; Start 01/29/17 at 09:00 Insulin Glargine (Lantus) 18 unit DAILY SC Last administered on 01/21/17 09:15 ; Admin Dose 18 UNIT; Start 01/05/17 at 10:30 Magnesium Hydroxide (Milk Of Mag) 30 ml BID PRN PO CONSTIPATION Last administered on 01/16/17 09:09; Admin Dose 30 ML; Start 01/05/17 at 10:30 Nitroglycerin (Nitroglycerin 2% Oint) 0.5 inch Q6 PRN TD CHEST PAIN; Start 03/13 at 10:30 Ondansetron HCl (Zofran Inj) 4 mg Q6H PRN IV NAUSEA Last administered on 09:09; Admin Dose 4 MG; Start 01/05/17 at 10:30 Prednisone (Prednisone) 5 mg DAILY PO Last administered on 01/21/17 08:40; Admin Dose 5 MG; Start 01/05/17 at 12:00 Prednisone (Prednisone) 3 mg DAILY PO Last administered on 01/21/17 08:40; Admin Dose 3 MG; Start 01/05/17 at 12:00 Miscellaneous Information 1 ea NOTE XX ; Start 01/05/17 at 11:00 Glucose (Glutose) 15 gm Q15M PRN PO DECREASED GLUCOSE; Start 01/05/17 at 11:00 Glucose (Glutose) 22.5 gm Q15M PRN PO DECREASED GLUCOSE; Start 01/05/17 at 11: 00 Dextrose (D50w Syringe) 25 ml Q15M PRN IV DECREASED GLUCOSE Last administered on 01/09/17 04:45; Admin Dose 25 ML; Start 01/05/17 at 11:00 Dextrose (D50w Syringe) 50 ml Q15M PRN IV DECREASED GLUCOSE Last administered on 01/08/17 21:33; Admin Dose 50 ML; Start 01/05/17 at 11:00 Glucagon (Glucagen) 1 mg Q15M PRN IM DECREASED GLUCOSE; Start 01/05/17 at 11:00 Glucose (Glutose) 15 gm Q15M PRN BUCCAL DECREASED GLUCOSE; Start 01/05/17 at 11 :00 Insulin Aspart NOVOLOG *MILD* ALGORI... Q4 SC Last administered on 01/21/17 05 :53; Admin Dose 1 UNIT; Start 01/05/17 at 13:00 Fentanyl 100 ml @ 2.5 mls/hr TITRATE IV Last administered on 01/07/17 02:25; Admin Dose 7.5 MLS/HR; Start 01/06/17 at 09:30 Norepinephrine/ Dextrose (Levophed/D5W) 500 ml @ 0 mls/hr TITRATE IV ; Start 04/12 at 13:30 Bumetanide 1 mg 1 mg BID IV Last administered on 01/13/17 21:06; Admin Dose 1 MG; Start 01/08/17 at 09:00; Status Future Hold Propofol (Diprivan) 100 ml @ 2.19 mls/hr Q12H IV Last administered on 07:04; Admin Dose 15.28 MLS/HR; Start 01/08/17 at 16:00 Miscellaneous Information (*Order Clarification Bulletin) FULVESTRANT 250 MG/5 ML SYG: PLE... Q8H XX ; Start 01/26/17 at 09:00 Acetaminophen (Tylenol Tab) 650 mg Q6H PRN NGT PAIN AND OR ELEVATED TEMP; Start 01/17/17 at 22:30 Apixaban (Eliquis) 2.5 mg BID NGT Last administered on 01/18/17 08:20; Admin Dose 2.5 MG; Start 01/17/17 at 21:00; Status Future Hold Ascorbic Acid (Vitamin C) 500 mg BID NGT Last administered on 01/21/17 08:41; Admin Dose 500 MG; Start 01/17/17 at 21:00 Levothyroxine Sodium (Synthroid) 75 mcg DAILY@06 NGT Last administered on 05:47; Admin Dose 75 MCG; Start 01/18/17 at 06:00 Loratadine (Claritin) 10 mg DAILY NGT Last administered on 01/21/17 08:41; Admin Dose 10 MG; Start 01/18/17 at 09:00 Metoprolol Tartrate (Lopressor) 25 mg BID NGT Last administered on 01/21/17 08 :42; Admin Dose 25 MG; Start 01/17/17 at 21:00 Mirtazapine (Remeron) 15 mg HS NGT Last administered on 01/20/17 20:54; Admin Dose 15 MG; Start 01/17/17 at 21:00 Oxcarbazepine (Trileptal) 600 mg BID NGT Last administered on 01/21/17 08:40; Admin Dose 600 MG; Start 01/17/17 at 21:00 Senna (Senokot) 1 tab HS NGT Last administered on 01/20/17 20:54; Admin Dose 1 TAB; Start 01/17/17 at 21:00 Sertraline HCl (Zoloft) 75 mg DAILY NGT Last administered on 01/21/17 08:41; Admin Dose 75 MG; Start 01/18/17 at 09:00 Sildenafil Citrate (Revatio) 20 mg TID NGT Last administered on 01/21/17 13:42 ; Admin Dose 20 MG; Start 01/17/17 at 21:00 Tacrolimus (Prograf) 2 mg QPM NGT Last administered on 01/20/17 20:55; Admin Dose 2 MG; Start 01/17/17 at 21:00 Docusate Sodium (Colace Liquid Cup) 100 mg BID NGT Last administered on 08:42; Admin Dose 100 MG; Start 01/17/17 at 21:00 Voriconazole (Vfend) 200 mg BID PO Last administered on 01/21/17 08:41; Admin Dose 200 MG; Start 01/19/17 at 21:00 Famotidine (Pepcid) 20 mg DAILY NGT Last administered on 01/21/17 08:41; Admin Dose 20 MG; Start 01/20/17 at 09:00 SHANICE DAVENPORT MD Jan 21, 2017 18:27
[2017-01-21] MEDS: SENNA TAB NGT SCH (21:21)
[2017-01-21] MEDS: MIRTAZAPINE 15 MG TAB NGT SCH (21:21)
[2017-01-22] VITALS (48 sets, daily range): BP systolic 86–174; BP diastolic 42–103; PULSE 61–110; RESP 0–25
[2017-01-22] MEDS: INSULIN ASPART [NOVOLOG] 3 ML PEN SC SCH ×6 (01:00→21:00)
[2017-01-22] MEDS: IPRATROPIUM (HFA) 12.9 GM INHALER INH SCH ×4 (01:05→19:43)
[2017-01-22] MEDS: ALBUTEROL 18 GM INHALER INH SCH ×4 (01:05→19:43)
[2017-01-22] MEDS: PROPOFOL 100 ML IV SCH ×2 (04:00→12:59)
[2017-01-22 05:30] LABS: ABNORMAL IP MESSAGE 1; BASOPHILS % 0.1 % (0.0-2.0); EOSINOPHILS # 0.1 10^3/ul (0.0-0.5); EOSINOPHILS % 0.6 % (0.0-7.0); HEMATOCRIT 30.4 % (37.0-47.0); LYMPHOCYTES # 0.3 10^3/ul (0.8-2.9); MEAN CORPUSCULAR HEMOGLOBIN 29.8 pg (29.0-33.0); MEAN CORPUSCULAR HGB CONC 32.9 g/dl (32.0-37.0); MEAN CORPUSCULAR VOLUME 90.5 fl (82.0-101.0); MEAN PLATELET VOLUME 10.2 fl (7.4-10.4); MONOCYTE # 0.7 10^3/ul (0.3-0.9); NEUTROPHIL # 21.2 10^3/ul (1.6-7.5); NEUTROPHILS % 94.2 % (39.0-77.0); PLATELET COUNT 240 10^3/UL (140-415); RED BLOOD COUNT 3.36 10^6/ul (4.20-5.40); RED CELL DISTRIBUTION WIDTH 15.7 % (11.5-14.5); WHITE BLOOD COUNT 22.5 10^3/ul (4.8-10.8)
[2017-01-22 05:53] LABS: CALCIUM 9.3 mg/dl (8.4-10.2); CREATININE 3.29 mg/dl (0.44-1.00); MAGNESIUM 2.7 mg/dl (1.7-2.5); PHOSPHORUS 4.6 mg/dl (2.5-4.9); POTASSIUM 4.6 mmol/L (3.5-5.1)
[2017-01-22] MEDS: LEVOTHYROXINE 75 MCG TAB NGT SCH (05:53)
[2017-01-22 06:22] LABS: POSITIVE DIFF @See below
[2017-01-22 06:23] LABS: LYMPHOCYTES % 1.3 % (15.0-51.0)
--- NOTE | 2017-01-22 07:42 | PN ---
DATE: 01/22/2017 SUBJECTIVE DATA: The patient remains in serious condition. The patient received 2 units of PRBC yesterday. The patient is pending possible trach placement today. No other events noted. OBJECTIVE DATA: VITAL SIGNS: Blood pressure is 91/47, respirations 18, pulse 84, temperature 97.7. HEENT: Head is normocephalic. NECK: Supple. HEART: Regular rate. LUNGS: Diminished breath sounds at the base. ABDOMEN: Soft, nontender to palpation. No rebound or guarding. EXTREMITIES: Negative for clubbing, cyanosis. No edema. DERMATOLOGIC: Clean. No rashes. MUSCULOSKELETAL: No joint effusion. NEUROLOGIC: No change in exam. MEDICATIONS: Reviewed. LABORATORY AND DIAGNOSTIC DATA: Shows sodium 136, potassium 4.6, chloride 94, BUN 73, creatinine 3.09. White count 22.5, hemoglobin 10.0, hematocrit 30.4, platelet count is 249. ASSESSMENT AND PLAN: 1. 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 Etiology secondary acute tubular necrosis. The patient is currently dialysis dependent. No signs of renal recovery. Anticipate dialysis tomorrow. 2. Exacerbation. Continue medical management. 3. Hyponatremia. Continue dialysis 140 sodium bath. 4. Paroxysmal atrial fibrillation. Continue current medical management. 5. Sepsis status post shock secondary to pneumonia. The patient is completing antibiotic course. 6. Fungal UTI. Continue antifungal therapy. 7. History of end-stage renal disease. Status post renal transplant with chronic allograft failure. The patient is currently in acute kidney injury as stated above. Continue to monitor. Continue immune suppressive regimen. 8. Hypothyroid. Continue Synthroid. 9. Anemia. Monitor H and H levels. 10. Diabetes. Continue Accu-Cheks and sliding scale. 11. Pulmonary hypertension. Continue medical management. 12. Dysphagia. Continue tube feeding. 13. History of breast cancer. Follow up with Hematology. 14. Gastrointestinal and deep vein prophylaxis. 15. Bilateral pleural effusion. Consider thoracentesis. Dictated By: Cameron Rosenthal DO /[email or web address] /Document#: [id number]
[2017-01-22] MEDS: ONDANSETRON 4 MG INJ IV PRN (07:56)
--- NOTE | 2017-01-22 08:38 | CONS ---
Date/Time of Note Date/Time of Note DATE: 01/22/17 TIME: 08:36 Consult Date/Type/Reason Admit Date/Time Jan 05, 2017 at 00:15 Initial Consult Date 01/05/17 Type of Consultation: CARDIOLOGY Ordering Provider: SSUAN SIMENTAL DO Subjective CARDIOLOGY FOLLOW UP NOTE: D/W Staff and rhythm was reviewed. pt has remained in Afib. HR has been stable pt still remains on vent. NO reports of any chest pain or pressure S/P PEG 01/19/17 still Awaiting trach now OBJECTIVE: General: intubated on vent. HEENT: NC/AT. pupils are equal. round. NECK: NO JVD. no stridor. CV:irregularly irregular. systolic murmur; no gallop or rubs. PULM: no wheezing, + mild rhonchi. GI: SOFT, NT, ND, no rebound or guarding S/P PEG Extremity: trace B/L LE edema. no clubbing. neuro: sedated now. Psych: unable to assess rectal: deferred : normal ECHO 12/16/16: Personally reviewed 1. Normal left ventricular systolic function. Normal left ventricular cavity size. Moderate concentric left ventricular hypertrophy. Ejection fraction is visually estimated at 65 %. Abnormal Diastolic Function. 2. There is moderate enlargement of left atrium. 3. Mild mitral leaflet calcification. Mild mitral annular calcification. Trace mitral regurgitation. 4. Aortic sclerosis without stenosis. Trace aortic valve regurgitation. 5. Normal appearance of the tricuspid valve. Estimated peak PA systolic pressure 38 mmHg. There is mild tricuspid regurgitation. Objective Vital Signs Date Time Temp Pulse Resp B/P Pulse Ox O2 Delivery O2 Flow Rate FiO2 01/22/17 06:00 84 0 91/47 99 01/22/17 04:50 30 01/22/17 04:00 97.7 01/22/17 00:00 Mechanical Ventilator Intake and Output 01/21/17 01/21/17 01/22/17 15:00 23:00 07:00 Intake Total 0 ml 550 ml 390 ml Output Total 10 ml 5 ml Balance -10 ml 545 ml 390 ml Results/Medications Result Diagram: 01/22/17 0400 01/22/17 0400 Results 24 hrs Laboratory Tests Test 01/21/17 09:13 01/21/17 13:39 01/21/17 13:55 01/21/17 18:07 Bedside Glucose 122 118 126 Hemoglobin 6.9 *L Hematocrit 21.6 L Test 01/21/17 21:31 01/22/17 04:00 01/22/17 04:24 01/22/17 05:22 Bedside Glucose 132 136 White Blood Count 22.5 H Red Blood Count 3.36 #L Hemoglobin 10.0 #L Hematocrit 30.4 #L Mean Corpuscular Volume 90.5 Mean Corpuscular Hemoglobin 29.8 Mean Corpuscular Hemoglobin Concent 32.9 Red Cell Distribution Width 15.7 H Platelet Count 240 Mean Platelet Volume 10.2 Neutrophils % 94.2 H Lymphocytes % 1.3 L Monocytes % 3.0 Eosinophils % 0.6 Basophils % 0.1 Nucleated Red Blood Cells % 0.0 Neutrophils # 21.2 H Lymphocytes # 0.3 L Monocytes # 0.7 Eosinophils # 0.1 Basophils # 0.0 Nucleated Red Blood Cells # 0.0 Sodium Level 126 L Potassium Level 4.6 Chloride Level 94 L Carbon Dioxide Level 25 Anion Gap 12 Blood Urea Nitrogen 73 H Creatinine 3.29 H Glucose Level 127 Calcium Level 9.3 Phosphorus Level 4.6 Magnesium Level 2.7 H Lab Scanned Report BLOOD TRANSFUSION Medications Current Medications Naloxone HCl (Narcan) 0.4 mg Q4 PRN IV SEDATION; Start 01/05/17 at 01:30 Bisacodyl (Dulcolax Supp) 10 mg DAILY AK Last administered on 01/21/17 08:42; Admin Dose 10 MG; Start 01/06/17 at 09:00 Budesonide (Pulmicort (Neb)) 0.25 mg BID NEB Last administered on 01/21/17 20: 00; Admin Dose 0.25 MG; Start 01/05/17 at 10:30 Fluticasone Propionate (Flonase 0.05% Nasal) 1 spray DAILY NASAL Last administered on 01/21/17 08:42; Admin Dose 1 SPRAY; Start 01/05/17 at 11:00 Fulvestrant (Faslodex) 500 mg Q28D IM ; Start 01/29/17 at 09:00 Insulin Glargine (Lantus) 18 unit DAILY SC Last administered on 01/21/17 09:15 ; Admin Dose 18 UNIT; Start 01/05/17 at 10:30 Magnesium Hydroxide (Milk Of Mag) 30 ml BID PRN PO CONSTIPATION Last administered on 01/16/17 09:09; Admin Dose 30 ML; Start 01/05/17 at 10:30 Nitroglycerin (Nitroglycerin 2% Oint) 0.5 inch Q6 PRN TD CHEST PAIN; Start 03/13 at 10:30 Ondansetron HCl (Zofran Inj) 4 mg Q6H PRN IV NAUSEA Last administered on 07:56; Admin Dose 4 MG; Start 01/05/17 at 10:30 Prednisone (Prednisone) 5 mg DAILY PO Last administered on 01/21/17 08:40; Admin Dose 5 MG; Start 01/05/17 at 12:00 Prednisone (Prednisone) 3 mg DAILY PO Last administered on 01/21/17 08:40; Admin Dose 3 MG; Start 01/05/17 at 12:00 Miscellaneous Information 1 ea NOTE XX ; Start 01/05/17 at 11:00 Glucose (Glutose) 15 gm Q15M PRN PO DECREASED GLUCOSE; Start 01/05/17 at 11:00 Glucose (Glutose) 22.5 gm Q15M PRN PO DECREASED GLUCOSE; Start 01/05/17 at 11: 00 Dextrose (D50w Syringe) 25 ml Q15M PRN IV DECREASED GLUCOSE Last administered on 01/09/17 04:45; Admin Dose 25 ML; Start 01/05/17 at 11:00 Dextrose (D50w Syringe) 50 ml Q15M PRN IV DECREASED GLUCOSE Last administered on 01/08/17 21:33; Admin Dose 50 ML; Start 01/05/17 at 11:00 Glucagon (Glucagen) 1 mg Q15M PRN IM DECREASED GLUCOSE; Start 01/05/17 at 11:00 Glucose (Glutose) 15 gm Q15M PRN BUCCAL DECREASED GLUCOSE; Start 01/05/17 at 11 :00 Insulin Aspart NOVOLOG *MILD* ALGORI... Q4 SC Last administered on 01/21/17 05 :53; Admin Dose 1 UNIT; Start 01/05/17 at 13:00 Fentanyl 100 ml @ 2.5 mls/hr TITRATE IV Last administered on 01/07/17 02:25; Admin Dose 7.5 MLS/HR; Start 01/06/17 at 09:30 Norepinephrine/ Dextrose (Levophed/D5W) 500 ml @ 0 mls/hr TITRATE IV ; Start 04/12 at 13:30 Bumetanide 1 mg 1 mg BID IV Last administered on 01/13/17 21:06; Admin Dose 1 MG; Start 01/08/17 at 09:00; Status Future Hold Propofol (Diprivan) 100 ml @ 2.19 mls/hr Q12H IV Last administered on 07:04; Admin Dose 15.28 MLS/HR; Start 01/08/17 at 16:00 Miscellaneous Information (*Order Clarification Bulletin) FULVESTRANT 250 MG/5 ML SYG: PLE... Q8H XX ; Start 01/26/17 at 09:00 Acetaminophen (Tylenol Tab) 650 mg Q6H PRN NGT PAIN AND OR ELEVATED TEMP; Start 01/17/17 at 22:30 Apixaban (Eliquis) 2.5 mg BID NGT Last administered on 01/18/17 08:20; Admin Dose 2.5 MG; Start 01/17/17 at 21:00; Status Future Hold Ascorbic Acid (Vitamin C) 500 mg BID NGT Last administered on 01/21/17 21:21; Admin Dose 500 MG; Start 01/17/17 at 21:00 Levothyroxine Sodium (Synthroid) 75 mcg DAILY@06 NGT Last administered on 05:53; Admin Dose 75 MCG; Start 01/18/17 at 06:00 Loratadine (Claritin) 10 mg DAILY NGT Last administered on 01/21/17 08:41; Admin Dose 10 MG; Start 01/18/17 at 09:00 Metoprolol Tartrate (Lopressor) 25 mg BID NGT Last administered on 01/21/17 21 :22; Admin Dose 25 MG; Start 01/17/17 at 21:00 Mirtazapine (Remeron) 15 mg HS NGT Last administered on 01/21/17 21:21; Admin Dose 15 MG; Start 01/17/17 at 21:00 Oxcarbazepine (Trileptal) 600 mg BID NGT Last administered on 01/21/17 21:20; Admin Dose 600 MG; Start 01/17/17 at 21:00 Senna (Senokot) 1 tab HS NGT Last administered on 01/21/17 21:21; Admin Dose 1 TAB; Start 01/17/17 at 21:00 Sertraline HCl (Zoloft) 75 mg DAILY NGT Last administered on 01/21/17 08:41; Admin Dose 75 MG; Start 01/18/17 at 09:00 Sildenafil Citrate (Revatio) 20 mg TID NGT Last administered on 01/21/17 21:24 ; Admin Dose 20 MG; Start 01/17/17 at 21:00 Tacrolimus (Prograf) 2 mg QPM NGT Last administered on 01/21/17 21:20; Admin Dose 2 MG; Start 01/17/17 at 21:00 Docusate Sodium (Colace Liquid Cup) 100 mg BID NGT Last administered on 21:21; Admin Dose 100 MG; Start 01/17/17 at 21:00 Voriconazole (Vfend) 200 mg BID PO Last administered on 01/21/17 21:28; Admin Dose 200 MG; Start 01/19/17 at 21:00 Famotidine (Pepcid) 20 mg DAILY NGT Last administered on 01/21/17 08:41; Admin Dose 20 MG; Start 01/20/17 at 09:00 Assessment/Plan Chief Complaint/Hosp Course Assessment: 1. s/p cardiopulmonary arrest: Most likely due to pulmonary arrest 2. P afib: 3. History of renal failure status post renal transplant: now with KATI on CKD 4. Acute on chronic hypoxemic hypercapnic respiratory failure status post reintubation: currently on the vent 5. Shock: resolved now. 6. ANEMIA 7. breast cancer 8. history of HTN: 9. anxiety 10. DM 11. Hypothyroidism: on synthroid. 12. pleural effusion : s/p thoracentesis 13. Dysphagia: s/p PEG Recommendations: vent support for now anti- rejection medications to be adjusted as per renal team. HD as per renal. cont DM control thyroid supplement betablocker as tolerated. correct lytes prn cont tele monitoring transfusion prn cont ICU care. eliquis is on hold now for trach and anemia Thank you for this referral I will continue to follow along with you. AUGUSTINA MALDONADO MD [facility] Problems: AUGUSTINA MALDONADO MD Jan 22, 2017 08:38
[2017-01-22] MEDS: predniSONE 1 MG TAB PO SCH (09:12)
[2017-01-22] MEDS: LORAZEPAM 2 MG INJ IV PRN ×2 (09:12→22:49)
[2017-01-22] MEDS: DOCUSATE SODIUM 10 MG/ML (10ML CUP) NGT SCH ×2 (09:12→21:11)
[2017-01-22] MEDS: METOPROLOL 25 MG TAB NGT SCH ×2 (09:13→21:11)
[2017-01-22] MEDS: OXCARBAZEPINE 300 MG TAB NGT SCH ×2 (09:13→21:12)
[2017-01-22] MEDS: FAMOTIDINE 20 MG TAB NGT SCH (09:13)
[2017-01-22] MEDS: TACROLIMUS 0.5 MG CAP NGT SCH ×2 (09:13→21:11)
[2017-01-22] MEDS: ASCORBIC ACID 500 MG TAB NGT SCH ×2 (09:13→21:12)
[2017-01-22] MEDS: LORATADINE 10 MG TAB NGT SCH (09:14)
[2017-01-22] MEDS: predniSONE 5 MG TAB PO SCH (09:14)
[2017-01-22] MEDS: VORICONAZOLE 200 MG TAB PO SCH ×2 (09:14→21:12)
[2017-01-22] MEDS: BISACODYL 10 MG SUPP PR SCH (09:14)
[2017-01-22] MEDS: SILDENAFIL 20 MG TAB NGT SCH ×3 (09:15→21:12)
[2017-01-22] MEDS: SERTRALINE 50 MG TAB NGT SCH (09:30)
[2017-01-22] MEDS: FLUTICASONE 0.05% 16 GM NAS SPRAY NASAL SCH (09:30)
[2017-01-22] MEDS: DEXTROSE 5%-0.9% NACL 1,000 ML IV SCH (09:30)
[2017-01-22] MEDS: INSULIN GLARGINE [LANtus] 3 ML PEN SC SCH (09:33)
--- NOTE | 2017-01-22 09:39 | CONS ---
Date/Time of Note Date/Time of Note DATE: 01/22/17 TIME: 09:37 Consult Date/Type/Reason Admit Date/Time Jan 05, 2017 at 00:15 Initial Consult Date 01/05/17 Type of Consultation: Pulmonary Ordering Provider: SUSAN SIMENTAL DO Subjective Patient remains stable this morning no new events. Orally intubated. Objective Vital Signs Date Time Temp Pulse Resp B/P Pulse Ox O2 Delivery O2 Flow Rate FiO2 01/22/17 06:00 84 0 91/47 99 01/22/17 04:50 30 01/22/17 04:00 97.7 01/22/17 00:00 Mechanical Ventilator Intake and Output 01/21/17 01/21/17 01/22/17 15:00 23:00 07:00 Intake Total 0 ml 550 ml 390 ml Output Total 10 ml 5 ml Balance -10 ml 545 ml 390 ml Exam PHYSICAL EXAMINATION GENERAL: Elderly lady intubated on mechanical ventilation appears comfortable at rest VITAL SIGNS: see below. HEENT: Pupils equal, round, and reactive to light. CARDIAC: S1, S2, 1/6 systolic ejection murmur CHEST: Diminished air entry bilaterally. ABDOMEN: Mildly distended. Bowel sounds present no guarding or rebound EXTREMITIES: No cyanosis, clubbing edema +1 NEUROLOGIC: Generalized weakness Results/Medications Result Diagram: 01/22/17 0400 01/22/17 0400 Results 24 hrs Laboratory Tests Test 01/21/17 13:39 01/21/17 13:55 01/21/17 18:07 01/21/17 21:31 Bedside Glucose 118 126 132 Hemoglobin 6.9 *L Hematocrit 21.6 L Test 01/22/17 04:00 01/22/17 04:24 01/22/17 05:22 01/22/17 09:24 White Blood Count 22.5 H Red Blood Count 3.36 #L Hemoglobin 10.0 #L Hematocrit 30.4 #L Mean Corpuscular Volume 90.5 Mean Corpuscular Hemoglobin 29.8 Mean Corpuscular Hemoglobin Concent 32.9 Red Cell Distribution Width 15.7 H Platelet Count 240 Mean Platelet Volume 10.2 Neutrophils % 94.2 H Lymphocytes % 1.3 L Monocytes % 3.0 Eosinophils % 0.6 Basophils % 0.1 Nucleated Red Blood Cells % 0.0 Neutrophils # 21.2 H Lymphocytes # 0.3 L Monocytes # 0.7 Eosinophils # 0.1 Basophils # 0.0 Nucleated Red Blood Cells # 0.0 Sodium Level 126 L Potassium Level 4.6 Chloride Level 94 L Carbon Dioxide Level 25 Anion Gap 12 Blood Urea Nitrogen 73 H Creatinine 3.29 H Glucose Level 127 Calcium Level 9.3 Phosphorus Level 4.6 Magnesium Level 2.7 H Bedside Glucose 136 142 Lab Scanned Report BLOOD TRANSFUSION Medications Current Medications Naloxone HCl (Narcan) 0.4 mg Q4 PRN IV SEDATION; Start 01/05/17 at 01:30 Bisacodyl (Dulcolax Supp) 10 mg DAILY [place] Last administered on 01/22/17 09:14; Admin Dose 10 MG; Start 01/06/17 at 09:00 Budesonide (Pulmicort (Neb)) 0.25 mg BID NEB Last administered on 01/21/17 20: 00; Admin Dose 0.25 MG; Start 01/05/17 at 10:30 Fluticasone Propionate (Flonase 0.05% Nasal) 1 spray DAILY NASAL Last administered on 01/22/17 09:30; Admin Dose 1 SPRAY; Start 01/05/17 at 11:00 Fulvestrant (Faslodex) 500 mg Q28D IM ; Start 01/29/17 at 09:00 Insulin Glargine (Lantus) 18 unit DAILY [place] Last administered on 01/22/17 09:33 ; Admin Dose 18 UNIT; Start 01/05/17 at 10:30 Magnesium Hydroxide (Milk Of Mag) 30 ml BID PRN PO CONSTIPATION Last administered on 01/16/17 09:09; Admin Dose 30 ML; Start 01/05/17 at 10:30 Nitroglycerin (Nitroglycerin 2% Oint) 0.5 inch Q6 PRN TD CHEST PAIN; Start 03/13 at 10:30 Ondansetron HCl (Zofran Inj) 4 mg Q6H PRN IV NAUSEA Last administered on 07:56; Admin Dose 4 MG; Start 01/05/17 at 10:30 Prednisone (Prednisone) 5 mg DAILY PO Last administered on 01/22/17 09:14; Admin Dose 5 MG; Start 01/05/17 at 12:00 Prednisone (Prednisone) 3 mg DAILY PO Last administered on 01/22/17 09:12; Admin Dose 3 MG; Start 01/05/17 at 12:00 Miscellaneous Information 1 ea NOTE XX ; Start 01/05/17 at 11:00 Glucose (Glutose) 15 gm Q15M PRN PO DECREASED GLUCOSE; Start 01/05/17 at 11:00 Glucose (Glutose) 22.5 gm Q15M PRN PO DECREASED GLUCOSE; Start 01/05/17 at 11: 00 Dextrose (D50w Syringe) 25 ml Q15M PRN IV DECREASED GLUCOSE Last administered on 01/09/17 04:45; Admin Dose 25 ML; Start 01/05/17 at 11:00 Dextrose (D50w Syringe) 50 ml Q15M PRN IV DECREASED GLUCOSE Last administered on 01/08/17 21:33; Admin Dose 50 ML; Start 01/05/17 at 11:00 Glucagon (Glucagen) 1 mg Q15M PRN IM DECREASED GLUCOSE; Start 01/05/17 at 11:00 Glucose (Glutose) 15 gm Q15M PRN BUCCAL DECREASED GLUCOSE; Start 01/05/17 at 11 :00 Insulin Aspart NOVOLOG *MILD* ALGORI... Q4 [place] Last administered on 01/21/17 05 :53; Admin Dose 1 UNIT; Start 01/05/17 at 13:00 Fentanyl 100 ml @ 2.5 mls/hr TITRATE IV Last administered on 01/07/17 02:25; Admin Dose 7.5 MLS/HR; Start 01/06/17 at 09:30 Norepinephrine/ Dextrose (Levophed/D5W) 500 ml @ 0 mls/hr TITRATE IV ; Start 04/12 at 13:30 Bumetanide 1 mg 1 mg BID IV Last administered on 01/13/17 21:06; Admin Dose 1 MG; Start 01/08/17 at 09:00; Status Future Hold Propofol (Diprivan) 100 ml @ 2.19 mls/hr Q12H IV Last administered on 07:04; Admin Dose 15.28 MLS/HR; Start 01/08/17 at 16:00 Miscellaneous Information (*Order Clarification Bulletin) FULVESTRANT 250 MG/5 ML SYG: PLE... Q8H XX ; Start 01/26/17 at 09:00 Acetaminophen (Tylenol Tab) 650 mg Q6H PRN NGT PAIN AND OR ELEVATED TEMP; Start 01/17/17 at 22:30 Apixaban (Eliquis) 2.5 mg BID NGT Last administered on 01/18/17 08:20; Admin Dose 2.5 MG; Start 01/17/17 at 21:00; Status Future Hold Ascorbic Acid (Vitamin C) 500 mg BID NGT Last administered on 01/22/17 09:13; Admin Dose 500 MG; Start 01/17/17 at 21:00 Levothyroxine Sodium (Synthroid) 75 mcg DAILY@06 NGT Last administered on 05:53; Admin Dose 75 MCG; Start 01/18/17 at 06:00 Loratadine (Claritin) 10 mg DAILY NGT Last administered on 01/22/17 09:14; Admin Dose 10 MG; Start 01/18/17 at 09:00 Metoprolol Tartrate (Lopressor) 25 mg BID NGT Last administered on 01/22/17 09 :13; Admin Dose 25 MG; Start 01/17/17 at 21:00 Mirtazapine (Remeron) 15 mg HS NGT Last administered on 01/21/17 21:21; Admin Dose 15 MG; Start 01/17/17 at 21:00 Oxcarbazepine (Trileptal) 600 mg BID NGT Last administered on 01/22/17 09:13; Admin Dose 600 MG; Start 01/17/17 at 21:00 Senna (Senokot) 1 tab HS NGT Last administered on 01/21/17 21:21; Admin Dose 1 TAB; Start 01/17/17 at 21:00 Sertraline HCl (Zoloft) 75 mg DAILY NGT Last administered on 01/22/17 09:30; Admin Dose 75 MG; Start 01/18/17 at 09:00 Sildenafil Citrate (Revatio) 20 mg TID NGT Last administered on 01/22/17 09:15 ; Admin Dose 20 MG; Start 01/17/17 at 21:00 Tacrolimus (Prograf) 2 mg QPM NGT Last administered on 01/21/17 21:20; Admin Dose 2 MG; Start 01/17/17 at 21:00 Docusate Sodium (Colace Liquid Cup) 100 mg BID NGT Last administered on 09:12; Admin Dose 100 MG; Start 01/17/17 at 21:00 Voriconazole (Vfend) 200 mg BID PO Last administered on 01/22/17 09:14; Admin Dose 200 MG; Start 01/19/17 at 21:00 Famotidine (Pepcid) 20 mg DAILY NGT Last administered on 01/22/17 09:13; Admin Dose 20 MG; Start 01/20/17 at 09:00 Lorazepam 1 mg 1 mg Q6H PRN IV anxiety Last administered on 01/22/17 09:12; Admin Dose 1 MG; Start 01/22/17 at 09:00 Dextrose/Sodium Chloride (D5-NS) 1,000 ml @ 50 mls/hr Q20H IV Last administered on 01/22/17 09:30; Admin Dose 50 MLS/HR; Start 01/22/17 at 09:00 Assessment/Plan Chief Complaint/Hosp Course IMPRESSION: 1. Hypoxemic respiratory failure. Status post thoracentesis. Failed multiple CPAP weaning trials pending tracheostomy 2. Possible altered mental status secondary to opioids. Significant anxiety component. 3. History of renal transplant. Renal insufficiency. Hyponatremia. 4. Dysphagia now with G-tube 5. Persistent leukocytosis. PLAN: 1. Continue supportive care, pending tracheostomy, hopefully today. 2. Decrease sedation as tolerated. 3. Continue ID recommendations 4. Renal recommendations. 5. DVT and GI prophylaxis. 6. Tube feeding once tracheostomy placed Critical care time 40 minutes. Prognosis guarded. Problems: LESA SAMUELS MD, [facility] Jan 22, 2017 09:39
[2017-01-22] MEDS: BALSAM PERU/CASTOR OIL 60 GM TUBE TOP SCH (09:45)
[2017-01-22] MEDS: BUDESONIDE (NEB) 0.25 MG/2 ML AMP NEB SCH ×2 (10:31→20:21)
--- NOTE | 2017-01-22 11:44 | CONS ---
Date/Time of Note Date/Time of Note DATE: 01/22/17 TIME: 11:44 Assessment/Plan Assessment/Plan Additional Assessment/Plan Additional Assessment/Plan 1. Respiratory failure. 2. Dysphagia. 3. Sepsis. 4. Renal failure. 5. Diabetes mellitus. 6. Breast cancer with metastasis. 7. Chronic obstructive pulmonary disease. 8. Pulmonary hypertension. 9. Atrial fibrillation. 10. Deconditioning 11. Status post renal transplant on immunosuppressive medication 12. Persistent leukocytosis 13. Respiratory failure reintubated 14. Status post PEG 15. Anemia, no evidence of active bleeding Plan Patient is tolerating feeding and will gradually increase it until the goal is achieved. Continue present care Awaiting for the tracheostomy today Consultation Date/Type/Reason Admit Date/Time Jan 05, 2017 at 00:15 Initial Consult Date 01/05/17 Type of Consultation: Pulmonary Referring Provider: SUSAN SIMENTAL DO 24 HR Interval Summary Subjective hx not possible: pt non-verbal, pt critical Exam/Review of Systems Vital Signs Vitals Vital Signs Date Time Temp Pulse Resp B/P Pulse Ox O2 Delivery O2 Flow Rate FiO2 01/22/17 11:00 83 13 121/61 98 Mechanical Ventilator 01/22/17 08:00 98.2 01/22/17 08:00 30 Intake and Output 01/21/17 01/21/17 01/22/17 15:00 23:00 07:00 Intake Total 0 ml 550 ml 390 ml Output Total 10 ml 5 ml Balance -10 ml 545 ml 390 ml Exam Constitutional: alert, oriented, well developed Psych: nl mood/affect, no complaints Head: atraumatic, normocephalic Eyes: EOMI, PERRL, nl conjunctiva, nl lids, nl sclera ENMT: nl external ears & nose, nl lips & teeth, nl nasal mucosa & septum Neck: non-tender, supple Respiratory: clear to auscultation, normal air movement Cardiovascular: nl pulses, regular rate and rhythm Gastrointestinal: nl liver, spleen, non-tender, soft Musculoskeletal: nl extremities to inspection, nl gait and stance Extremities: normal pulses Neurological: STONE UNLOADER II-XII intact, nl mental status, nl speech, nl strength Skin: nl turgor, No rash or lesions Lymph: nl lymph nodes Results Result Diagram: 01/22/17 0400 01/22/17 0400 Results 24 hrs Laboratory Tests Test 01/21/17 13:39 01/21/17 13:55 01/21/17 18:07 01/21/17 21:31 Bedside Glucose 118 126 132 Hemoglobin 6.9 *L Hematocrit 21.6 L Test 01/22/17 04:00 01/22/17 04:24 01/22/17 05:22 01/22/17 09:24 White Blood Count 22.5 H Red Blood Count 3.36 #L Hemoglobin 10.0 #L Hematocrit 30.4 #L Mean Corpuscular Volume 90.5 Mean Corpuscular Hemoglobin 29.8 Mean Corpuscular Hemoglobin Concent 32.9 Red Cell Distribution Width 15.7 H Platelet Count 240 Mean Platelet Volume 10.2 Neutrophils % 94.2 H Lymphocytes % 1.3 L Monocytes % 3.0 Eosinophils % 0.6 Basophils % 0.1 Nucleated Red Blood Cells % 0.0 Neutrophils # 21.2 H Lymphocytes # 0.3 L Monocytes # 0.7 Eosinophils # 0.1 Basophils # 0.0 Nucleated Red Blood Cells # 0.0 Sodium Level 126 L Potassium Level 4.6 Chloride Level 94 L Carbon Dioxide Level 25 Anion Gap 12 Blood Urea Nitrogen 73 H Creatinine 3.29 H Glucose Level 127 Calcium Level 9.3 Phosphorus Level 4.6 Magnesium Level 2.7 H Bedside Glucose 136 142 Lab Scanned Report BLOOD TRANSFUSION Medications Medications Current Medications Naloxone HCl (Narcan) 0.4 mg Q4 PRN IV SEDATION; Start 01/05/17 at 01:30 Bisacodyl (Dulcolax Supp) 10 mg DAILY [place] Last administered on 01/22/17 09:14; Admin Dose 10 MG; Start 01/06/17 at 09:00 Budesonide (Pulmicort (Neb)) 0.25 mg BID NEB Last administered on 01/22/17 10: 31; Admin Dose 0.25 MG; Start 01/05/17 at 10:30 Fluticasone Propionate (Flonase 0.05% Nasal) 1 spray DAILY NASAL Last administered on 01/22/17 09:30; Admin Dose 1 SPRAY; Start 01/05/17 at 11:00 Fulvestrant (Faslodex) 500 mg Q28D IM ; Start 01/29/17 at 09:00 Insulin Glargine (Lantus) 18 unit DAILY [place] Last administered on 01/22/17 09:33 ; Admin Dose 18 UNIT; Start 01/05/17 at 10:30 Magnesium Hydroxide (Milk Of Mag) 30 ml BID PRN PO CONSTIPATION Last administered on 01/16/17 09:09; Admin Dose 30 ML; Start 01/05/17 at 10:30 Nitroglycerin (Nitroglycerin 2% Oint) 0.5 inch Q6 PRN TD CHEST PAIN; Start 03/13 at 10:30 Ondansetron HCl (Zofran Inj) 4 mg Q6H PRN IV NAUSEA Last administered on 07:56; Admin Dose 4 MG; Start 01/05/17 at 10:30 Prednisone (Prednisone) 5 mg DAILY PO Last administered on 01/22/17 09:14; Admin Dose 5 MG; Start 01/05/17 at 12:00 Prednisone (Prednisone) 3 mg DAILY PO Last administered on 01/22/17 09:12; Admin Dose 3 MG; Start 01/05/17 at 12:00 Miscellaneous Information 1 ea NOTE XX ; Start 01/05/17 at 11:00 Glucose (Glutose) 15 gm Q15M PRN PO DECREASED GLUCOSE; Start 01/05/17 at 11:00 Glucose (Glutose) 22.5 gm Q15M PRN PO DECREASED GLUCOSE; Start 01/05/17 at 11: 00 Dextrose (D50w Syringe) 25 ml Q15M PRN IV DECREASED GLUCOSE Last administered on 01/09/17 04:45; Admin Dose 25 ML; Start 01/05/17 at 11:00 Dextrose (D50w Syringe) 50 ml Q15M PRN IV DECREASED GLUCOSE Last administered on 01/08/17 21:33; Admin Dose 50 ML; Start 01/05/17 at 11:00 Glucagon (Glucagen) 1 mg Q15M PRN IM DECREASED GLUCOSE; Start 01/05/17 at 11:00 Glucose (Glutose) 15 gm Q15M PRN BUCCAL DECREASED GLUCOSE; Start 01/05/17 at 11 :00 Insulin Aspart NOVOLOG *MILD* ALGORI... Q4 [place] Last administered on 01/21/17 05 :53; Admin Dose 1 UNIT; Start 01/05/17 at 13:00 Fentanyl 100 ml @ 2.5 mls/hr TITRATE IV Last administered on 01/07/17 02:25; Admin Dose 7.5 MLS/HR; Start 01/06/17 at 09:30 Norepinephrine/ Dextrose (Levophed/D5W) 500 ml @ 0 mls/hr TITRATE IV ; Start 04/12 at 13:30 Bumetanide 1 mg 1 mg BID IV Last administered on 01/13/17 21:06; Admin Dose 1 MG; Start 01/08/17 at 09:00; Status Future Hold Propofol (Diprivan) 100 ml @ 2.19 mls/hr Q12H IV Last administered on 07:04; Admin Dose 15.28 MLS/HR; Start 01/08/17 at 16:00 Miscellaneous Information (*Order Clarification Bulletin) FULVESTRANT 250 MG/5 ML SYG: PLE... Q8H XX ; Start 01/26/17 at 09:00 Acetaminophen (Tylenol Tab) 650 mg Q6H PRN NGT PAIN AND OR ELEVATED TEMP; Start 01/17/17 at 22:30 Apixaban (Eliquis) 2.5 mg BID NGT Last administered on 01/18/17 08:20; Admin Dose 2.5 MG; Start 01/17/17 at 21:00; Status Future Hold Ascorbic Acid (Vitamin C) 500 mg BID NGT Last administered on 01/22/17 09:13; Admin Dose 500 MG; Start 01/17/17 at 21:00 Levothyroxine Sodium (Synthroid) 75 mcg DAILY@06 NGT Last administered on 05:53; Admin Dose 75 MCG; Start 01/18/17 at 06:00 Loratadine (Claritin) 10 mg DAILY NGT Last administered on 01/22/17 09:14; Admin Dose 10 MG; Start 01/18/17 at 09:00 Metoprolol Tartrate (Lopressor) 25 mg BID NGT Last administered on 01/22/17 09 :13; Admin Dose 25 MG; Start 01/17/17 at 21:00 Mirtazapine (Remeron) 15 mg HS NGT Last administered on 01/21/17 21:21; Admin Dose 15 MG; Start 01/17/17 at 21:00 Oxcarbazepine (Trileptal) 600 mg BID NGT Last administered on 01/22/17 09:13; Admin Dose 600 MG; Start 01/17/17 at 21:00 Senna (Senokot) 1 tab HS NGT Last administered on 01/21/17 21:21; Admin Dose 1 TAB; Start 01/17/17 at 21:00 Sertraline HCl (Zoloft) 75 mg DAILY NGT Last administered on 01/22/17 09:30; Admin Dose 75 MG; Start 01/18/17 at 09:00 Sildenafil Citrate (Revatio) 20 mg TID NGT Last administered on 01/22/17 09:15 ; Admin Dose 20 MG; Start 01/17/17 at 21:00 Tacrolimus (Prograf) 2 mg QPM NGT Last administered on 01/21/17 21:20; Admin Dose 2 MG; Start 01/17/17 at 21:00 Docusate Sodium (Colace Liquid Cup) 100 mg BID NGT Last administered on 09:12; Admin Dose 100 MG; Start 01/17/17 at 21:00 Voriconazole (Vfend) 200 mg BID PO Last administered on 01/22/17 09:14; Admin Dose 200 MG; Start 01/19/17 at 21:00 Famotidine (Pepcid) 20 mg DAILY NGT Last administered on 01/22/17 09:13; Admin Dose 20 MG; Start 01/20/17 at 09:00 Lorazepam 1 mg 1 mg Q6H PRN IV anxiety Last administered on 01/22/17 09:12; Admin Dose 1 MG; Start 01/22/17 at 09:00 Dextrose/Sodium Chloride (D5-NS) 1,000 ml @ 50 mls/hr Q20H IV Last administered on 01/22/17 09:30; Admin Dose 50 MLS/HR; Start 01/22/17 at 09:00 MEMO WILHELM MD Jan 22, 2017 11:44
--- NOTE | 2017-01-22 11:55 | CONS ---
Date/Time of Note Date/Time of Note DATE: 01/22/17 TIME: 11:53 Assessment/Plan Assessment/Plan Chief Complaint/Hosp Course SUBJECTIVE DATA: Patient is nonverbal and noncommunicative intubated sedated and in no distress. Temperature 98.2 pulse 83 respirations 20 blood pressure 121/61 saturation 98 on vent WBC 22.5 H&H 10 and 30.4 platelets 240 neutrophils 94.2 BUN 73 creatinine 3.29 113 MICROBIOLOGY: Urine culture, on January 18 grew yeast, not kvng. Blood cultures remain negative. INDWELLING: Endotracheal tube, right femoral Bandar catheter with a pigtail, Dela Cruz catheter, PEG. ANTIMICROBIALS: Voriconazole. PHYSICAL EXAMINATION: GENERAL: This is a fragile, elderly woman, who is comfortable on vent. HEENT: Head atraumatic, normocephalic. Sclerae anicteric. Buccal mucosa dry. NECK: Supple. LUNGS: Chest rise symmetrical. Breath sounds clear. Diminished at the bases. HEART: S1, S2. ABDOMEN: Soft, bowel sounds present. EXTREMITIES: With trace edema. ASSESSMENT: 1. Systemic inflammatory response syndrome with persistent leukocytosis, multifactorial. 2. Fungal urinary tract infection, remains on voriconazole. 3. Status post pneumonia. 4. Respiratory failure. 5. Bilateral pleural effusions. 6. History of kidney transplant, on immunosuppressive therapy. 7. Diabetes. 8. Acute on chronic anemia, status post blood transfusion PLAN: The patient remains hemodynamically stable. Continue present care. Continue voriconazole. Pending trach Problems: Consultation Date/Type/Reason Admit Date/Time Jan 05, 2017 at 00:15 Initial Consult Date 01/05/17 Type of Consultation: id Referring Provider: SUSAN SIMENTAL DO Exam/Review of Systems Vital Signs Vitals Vital Signs Date Time Temp Pulse Resp B/P Pulse Ox O2 Delivery O2 Flow Rate FiO2 01/22/17 11:00 83 13 121/61 98 Mechanical Ventilator 01/22/17 08:00 98.2 01/22/17 08:00 30 Intake and Output 01/21/17 01/21/17 01/22/17 15:00 23:00 07:00 Intake Total 0 ml 550 ml 390 ml Output Total 10 ml 5 ml Balance -10 ml 545 ml 390 ml Results Result Diagram: 01/22/17 0400 01/22/17 0400 Results 24 hrs Laboratory Tests Test 01/21/17 13:39 01/21/17 13:55 01/21/17 18:07 01/21/17 21:31 Bedside Glucose 118 126 132 Hemoglobin 6.9 *L Hematocrit 21.6 L Test 01/22/17 04:00 01/22/17 04:24 01/22/17 05:22 01/22/17 09:24 White Blood Count 22.5 H Red Blood Count 3.36 #L Hemoglobin 10.0 #L Hematocrit 30.4 #L Mean Corpuscular Volume 90.5 Mean Corpuscular Hemoglobin 29.8 Mean Corpuscular Hemoglobin Concent 32.9 Red Cell Distribution Width 15.7 H Platelet Count 240 Mean Platelet Volume 10.2 Neutrophils % 94.2 H Lymphocytes % 1.3 L Monocytes % 3.0 Eosinophils % 0.6 Basophils % 0.1 Nucleated Red Blood Cells % 0.0 Neutrophils # 21.2 H Lymphocytes # 0.3 L Monocytes # 0.7 Eosinophils # 0.1 Basophils # 0.0 Nucleated Red Blood Cells # 0.0 Sodium Level 126 L Potassium Level 4.6 Chloride Level 94 L Carbon Dioxide Level 25 Anion Gap 12 Blood Urea Nitrogen 73 H Creatinine 3.29 H Glucose Level 127 Calcium Level 9.3 Phosphorus Level 4.6 Magnesium Level 2.7 H Bedside Glucose 136 142 Lab Scanned Report BLOOD TRANSFUSION Medications Medications Current Medications Naloxone HCl (Narcan) 0.4 mg Q4 PRN IV SEDATION; Start 01/05/17 at 01:30 Bisacodyl (Dulcolax Supp) 10 mg DAILY [place] Last administered on 01/22/17 09:14; Admin Dose 10 MG; Start 01/06/17 at 09:00 Budesonide (Pulmicort (Neb)) 0.25 mg BID NEB Last administered on 01/22/17 10: 31; Admin Dose 0.25 MG; Start 01/05/17 at 10:30 Fluticasone Propionate (Flonase 0.05% Nasal) 1 spray DAILY NASAL Last administered on 01/22/17 09:30; Admin Dose 1 SPRAY; Start 01/05/17 at 11:00 Fulvestrant (Faslodex) 500 mg Q28D IM ; Start 01/29/17 at 09:00 Insulin Glargine (Lantus) 18 unit DAILY [place] Last administered on 01/22/17 09:33 ; Admin Dose 18 UNIT; Start 01/05/17 at 10:30 Magnesium Hydroxide (Milk Of Mag) 30 ml BID PRN PO CONSTIPATION Last administered on 01/16/17 09:09; Admin Dose 30 ML; Start 01/05/17 at 10:30 Nitroglycerin (Nitroglycerin 2% Oint) 0.5 inch Q6 PRN TD CHEST PAIN; Start 03/13 at 10:30 Ondansetron HCl (Zofran Inj) 4 mg Q6H PRN IV NAUSEA Last administered on 07:56; Admin Dose 4 MG; Start 01/05/17 at 10:30 Prednisone (Prednisone) 5 mg DAILY PO Last administered on 01/22/17 09:14; Admin Dose 5 MG; Start 01/05/17 at 12:00 Prednisone (Prednisone) 3 mg DAILY PO Last administered on 01/22/17 09:12; Admin Dose 3 MG; Start 01/05/17 at 12:00 Miscellaneous Information 1 ea NOTE XX ; Start 01/05/17 at 11:00 Glucose (Glutose) 15 gm Q15M PRN PO DECREASED GLUCOSE; Start 01/05/17 at 11:00 Glucose (Glutose) 22.5 gm Q15M PRN PO DECREASED GLUCOSE; Start 01/05/17 at 11: 00 Dextrose (D50w Syringe) 25 ml Q15M PRN IV DECREASED GLUCOSE Last administered on 01/09/17 04:45; Admin Dose 25 ML; Start 01/05/17 at 11:00 Dextrose (D50w Syringe) 50 ml Q15M PRN IV DECREASED GLUCOSE Last administered on 01/08/17 21:33; Admin Dose 50 ML; Start 01/05/17 at 11:00 Glucagon (Glucagen) 1 mg Q15M PRN IM DECREASED GLUCOSE; Start 01/05/17 at 11:00 Glucose (Glutose) 15 gm Q15M PRN BUCCAL DECREASED GLUCOSE; Start 01/05/17 at 11 :00 Insulin Aspart NOVOLOG *MILD* ALGORI... Q4 [place] Last administered on 01/21/17 05 :53; Admin Dose 1 UNIT; Start 01/05/17 at 13:00 Fentanyl 100 ml @ 2.5 mls/hr TITRATE IV Last administered on 01/07/17 02:25; Admin Dose 7.5 MLS/HR; Start 01/06/17 at 09:30 Norepinephrine/ Dextrose (Levophed/D5W) 500 ml @ 0 mls/hr TITRATE IV ; Start 04/12 at 13:30 Bumetanide 1 mg 1 mg BID IV Last administered on 01/13/17 21:06; Admin Dose 1 MG; Start 01/08/17 at 09:00; Status Future Hold Propofol (Diprivan) 100 ml @ 2.19 mls/hr Q12H IV Last administered on 07:04; Admin Dose 15.28 MLS/HR; Start 01/08/17 at 16:00 Miscellaneous Information (*Order Clarification Bulletin) FULVESTRANT 250 MG/5 ML SYG: PLE... Q8H XX ; Start 01/26/17 at 09:00 Acetaminophen (Tylenol Tab) 650 mg Q6H PRN NGT PAIN AND OR ELEVATED TEMP; Start 01/17/17 at 22:30 Apixaban (Eliquis) 2.5 mg BID NGT Last administered on 01/18/17 08:20; Admin Dose 2.5 MG; Start 01/17/17 at 21:00; Status Future Hold Ascorbic Acid (Vitamin C) 500 mg BID NGT Last administered on 01/22/17 09:13; Admin Dose 500 MG; Start 01/17/17 at 21:00 Levothyroxine Sodium (Synthroid) 75 mcg DAILY@06 NGT Last administered on 05:53; Admin Dose 75 MCG; Start 01/18/17 at 06:00 Loratadine (Claritin) 10 mg DAILY NGT Last administered on 01/22/17 09:14; Admin Dose 10 MG; Start 01/18/17 at 09:00 Metoprolol Tartrate (Lopressor) 25 mg BID NGT Last administered on 01/22/17 09 :13; Admin Dose 25 MG; Start 01/17/17 at 21:00 Mirtazapine (Remeron) 15 mg HS NGT Last administered on 01/21/17 21:21; Admin Dose 15 MG; Start 01/17/17 at 21:00 Oxcarbazepine (Trileptal) 600 mg BID NGT Last administered on 01/22/17 09:13; Admin Dose 600 MG; Start 01/17/17 at 21:00 Senna (Senokot) 1 tab HS NGT Last administered on 01/21/17 21:21; Admin Dose 1 TAB; Start 01/17/17 at 21:00 Sertraline HCl (Zoloft) 75 mg DAILY NGT Last administered on 01/22/17 09:30; Admin Dose 75 MG; Start 01/18/17 at 09:00 Sildenafil Citrate (Revatio) 20 mg TID NGT Last administered on 01/22/17 09:15 ; Admin Dose 20 MG; Start 01/17/17 at 21:00 Tacrolimus (Prograf) 2 mg QPM NGT Last administered on 01/21/17 21:20; Admin Dose 2 MG; Start 01/17/17 at 21:00 Docusate Sodium (Colace Liquid Cup) 100 mg BID NGT Last administered on 09:12; Admin Dose 100 MG; Start 01/17/17 at 21:00 Voriconazole (Vfend) 200 mg BID PO Last administered on 01/22/17 09:14; Admin Dose 200 MG; Start 01/19/17 at 21:00 Famotidine (Pepcid) 20 mg DAILY NGT Last administered on 01/22/17 09:13; Admin Dose 20 MG; Start 01/20/17 at 09:00 Lorazepam 1 mg 1 mg Q6H PRN IV anxiety Last administered on 01/22/17 09:12; Admin Dose 1 MG; Start 01/22/17 at 09:00 Dextrose/Sodium Chloride (D5-NS) 1,000 ml @ 50 mls/hr Q20H IV Last administered on 01/22/17 09:30; Admin Dose 50 MLS/HR; Start 01/22/17 at 09:00 MAXIMUS ETIENNE NP Jan 22, 2017 11:55
[2017-01-22 12:45] LABS: PROTIME 13.2 Sec (12.2-14.2)
[2017-01-22 12:46] LABS: PARTIAL THROMBOPLASTIN TIME 23.9 Sec (25.0-35.0)
--- NOTE | 2017-01-22 18:59 | CONS ---
Date/Time of Note Date/Time of Note DATE: 01/22/17 TIME: 18:58 Assessment/Plan Assessment/Plan Chief Complaint/Hosp Course History of breast cancer with lung metastasis. The patient is on medical management. on Faslodex as outpt Anemia. Monitor hemoglobin and hematocrit levels. 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 Congestive heart failure exacerbation. Hypothyroidism. Diabetes. Continue current insulin regimen. Pulmonary hypertension. Depression. Problems: Consultation Date/Type/Reason Admit Date/Time Jan 05, 2017 at 00:15 Initial Consult Date 01/05/17 Type of Consultation: HEMEONC Referring Provider: SUSAN SIMENTAL DO 24 HR Interval Summary Free Text/Dictation ALL NOTED POST 2 U PRBC NO BLEEDING Exam/Review of Systems Vital Signs Vitals Vital Signs Date Time Temp Pulse Resp B/P Pulse Ox O2 Delivery O2 Flow Rate FiO2 01/22/17 18:06 88 13 100 30 01/22/17 18:00 105/56 Mechanical Ventilator 01/22/17 16:00 97.3 Intake and Output 01/21/17 01/21/17 01/22/17 15:00 23:00 07:00 Intake Total 0 ml 550 ml 390 ml Output Total 10 ml 5 ml Balance -10 ml 545 ml 390 ml Exam HEENT: Head is normocephalic. NECK: Supple. HEART: Regular rate. LUNGS: Show diminished breath sounds base. Positive rhonchi. ABDOMEN: Soft, nontender to palpation. No rebound or guarding. EXTREMITIES: Negative for clubbing, cyanosis. No edema. DERMATOLOGIC: Clean. No rashes. MUSCULOSKELETAL: No joint effusion. NEUROLOGIC: No change in exam. Results Result Diagram: 01/22/17 0400 01/22/17 0400 Results 24 hrs Laboratory Tests Test 01/21/17 21:31 01/22/17 04:00 01/22/17 04:24 01/22/17 05:22 Bedside Glucose 132 136 White Blood Count 22.5 H Red Blood Count 3.36 #L Hemoglobin 10.0 #L Hematocrit 30.4 #L Mean Corpuscular Volume 90.5 Mean Corpuscular Hemoglobin 29.8 Mean Corpuscular Hemoglobin Concent 32.9 Red Cell Distribution Width 15.7 H Platelet Count 240 Mean Platelet Volume 10.2 Neutrophils % 94.2 H Lymphocytes % 1.3 L Monocytes % 3.0 Eosinophils % 0.6 Basophils % 0.1 Nucleated Red Blood Cells % 0.0 Neutrophils # 21.2 H Lymphocytes # 0.3 L Monocytes # 0.7 Eosinophils # 0.1 Basophils # 0.0 Nucleated Red Blood Cells # 0.0 Sodium Level 126 L Potassium Level 4.6 Chloride Level 94 L Carbon Dioxide Level 25 Anion Gap 12 Blood Urea Nitrogen 73 H Creatinine 3.29 H Glucose Level 127 Calcium Level 9.3 Phosphorus Level 4.6 Magnesium Level 2.7 H Lab Scanned Report BLOOD TRANSFUSION Test 01/22/17 09:24 01/22/17 11:48 01/22/17 12:30 01/22/17 16:26 Bedside Glucose 142 137 110 Prothrombin Time 13.2 Prothrombin Time Ratio 1.0 INR International Normalized Ratio 1.00 Activated Partial Thromboplast Time 23.9 L Medications Medications Current Medications Naloxone HCl (Narcan) 0.4 mg Q4 PRN IV SEDATION; Start 01/05/17 at 01:30 Bisacodyl (Dulcolax Supp) 10 mg DAILY ID Last administered on 01/22/17 09:14; Admin Dose 10 MG; Start 01/06/17 at 09:00 Budesonide (Pulmicort (Neb)) 0.25 mg BID NEB Last administered on 01/22/17 10: 31; Admin Dose 0.25 MG; Start 01/05/17 at 10:30 Fluticasone Propionate (Flonase 0.05% Nasal) 1 spray DAILY NASAL Last administered on 01/22/17 09:30; Admin Dose 1 SPRAY; Start 01/05/17 at 11:00 Fulvestrant (Faslodex) 500 mg Q28D IM ; Start 01/29/17 at 09:00 Insulin Glargine (Lantus) 18 unit DAILY SC Last administered on 01/22/17 09:33 ; Admin Dose 18 UNIT; Start 01/05/17 at 10:30 Magnesium Hydroxide (Milk Of Mag) 30 ml BID PRN PO CONSTIPATION Last administered on 01/16/17 09:09; Admin Dose 30 ML; Start 01/05/17 at 10:30 Nitroglycerin (Nitroglycerin 2% Oint) 0.5 inch Q6 PRN TD CHEST PAIN; Start 03/13 at 10:30 Ondansetron HCl (Zofran Inj) 4 mg Q6H PRN IV NAUSEA Last administered on 07:56; Admin Dose 4 MG; Start 01/05/17 at 10:30 Prednisone (Prednisone) 5 mg DAILY PO Last administered on 01/22/17 09:14; Admin Dose 5 MG; Start 01/05/17 at 12:00 Prednisone (Prednisone) 3 mg DAILY PO Last administered on 01/22/17 09:12; Admin Dose 3 MG; Start 01/05/17 at 12:00 Miscellaneous Information 1 ea NOTE XX ; Start 01/05/17 at 11:00 Glucose (Glutose) 15 gm Q15M PRN PO DECREASED GLUCOSE; Start 01/05/17 at 11:00 Glucose (Glutose) 22.5 gm Q15M PRN PO DECREASED GLUCOSE; Start 01/05/17 at 11: 00 Dextrose (D50w Syringe) 25 ml Q15M PRN IV DECREASED GLUCOSE Last administered on 01/09/17 04:45; Admin Dose 25 ML; Start 01/05/17 at 11:00 Dextrose (D50w Syringe) 50 ml Q15M PRN IV DECREASED GLUCOSE Last administered on 01/08/17 21:33; Admin Dose 50 ML; Start 01/05/17 at 11:00 Glucagon (Glucagen) 1 mg Q15M PRN IM DECREASED GLUCOSE; Start 01/05/17 at 11:00 Glucose (Glutose) 15 gm Q15M PRN BUCCAL DECREASED GLUCOSE; Start 01/05/17 at 11 :00 Insulin Aspart NOVOLOG *MILD* ALGORI... Q4 SC Last administered on 01/21/17 05 :53; Admin Dose 1 UNIT; Start 01/05/17 at 13:00 Fentanyl 100 ml @ 2.5 mls/hr TITRATE IV Last administered on 01/07/17 02:25; Admin Dose 7.5 MLS/HR; Start 01/06/17 at 09:30 Norepinephrine/ Dextrose (Levophed/D5W) 500 ml @ 0 mls/hr TITRATE IV ; Start 04/12 at 13:30 Bumetanide 1 mg 1 mg BID IV Last administered on 01/13/17 21:06; Admin Dose 1 MG; Start 01/08/17 at 09:00; Status Future Hold Propofol (Diprivan) 100 ml @ 2.19 mls/hr Q12H IV Last administered on 07:04; Admin Dose 15.28 MLS/HR; Start 01/08/17 at 16:00 Miscellaneous Information (*Order Clarification Bulletin) FULVESTRANT 250 MG/5 ML SYG: PLE... Q8H XX ; Start 01/26/17 at 09:00 Acetaminophen (Tylenol Tab) 650 mg Q6H PRN NGT PAIN AND OR ELEVATED TEMP; Start 01/17/17 at 22:30 Apixaban (Eliquis) 2.5 mg BID NGT Last administered on 01/18/17 08:20; Admin Dose 2.5 MG; Start 01/17/17 at 21:00; Status Future Hold Ascorbic Acid (Vitamin C) 500 mg BID NGT Last administered on 01/22/17 09:13; Admin Dose 500 MG; Start 01/17/17 at 21:00 Levothyroxine Sodium (Synthroid) 75 mcg DAILY@06 NGT Last administered on 05:53; Admin Dose 75 MCG; Start 01/18/17 at 06:00 Loratadine (Claritin) 10 mg DAILY NGT Last administered on 01/22/17 09:14; Admin Dose 10 MG; Start 01/18/17 at 09:00 Metoprolol Tartrate (Lopressor) 25 mg BID NGT Last administered on 01/22/17 09 :13; Admin Dose 25 MG; Start 01/17/17 at 21:00 Mirtazapine (Remeron) 15 mg HS NGT Last administered on 01/21/17 21:21; Admin Dose 15 MG; Start 01/17/17 at 21:00 Oxcarbazepine (Trileptal) 600 mg BID NGT Last administered on 01/22/17 09:13; Admin Dose 600 MG; Start 01/17/17 at 21:00 Senna (Senokot) 1 tab HS NGT Last administered on 01/21/17 21:21; Admin Dose 1 TAB; Start 01/17/17 at 21:00 Sertraline HCl (Zoloft) 75 mg DAILY NGT Last administered on 01/22/17 09:30; Admin Dose 75 MG; Start 01/18/17 at 09:00 Sildenafil Citrate (Revatio) 20 mg TID NGT Last administered on 01/22/17 12:59 ; Admin Dose 20 MG; Start 01/17/17 at 21:00 Tacrolimus (Prograf) 2 mg QPM NGT Last administered on 01/21/17 21:20; Admin Dose 2 MG; Start 01/17/17 at 21:00 Docusate Sodium (Colace Liquid Cup) 100 mg BID NGT Last administered on 09:12; Admin Dose 100 MG; Start 01/17/17 at 21:00 Voriconazole (Vfend) 200 mg BID PO Last administered on 01/22/17 09:14; Admin Dose 200 MG; Start 01/19/17 at 21:00 Famotidine (Pepcid) 20 mg DAILY NGT Last administered on 01/22/17 09:13; Admin Dose 20 MG; Start 01/20/17 at 09:00 Lorazepam 1 mg 1 mg Q6H PRN IV anxiety Last administered on 01/22/17 09:12; Admin Dose 1 MG; Start 01/22/17 at 09:00 Dextrose/Sodium Chloride (D5-NS) 1,000 ml @ 50 mls/hr Q20H IV Last administered on 01/22/17 09:30; Admin Dose 50 MLS/HR; Start 01/22/17 at 09:00 SHANICE DAVENPORT MD Jan 22, 2017 18:59
[2017-01-22] MEDS: SENNA TAB NGT SCH (21:12)
[2017-01-22] MEDS: MIRTAZAPINE 15 MG TAB NGT SCH (21:12)
[2017-01-23] VITALS (51 sets, daily range): BP systolic 85–170; BP diastolic 46–127; PULSE 60–115; RESP 11–25
[2017-01-23] MEDS: INSULIN ASPART [NOVOLOG] 3 ML PEN SC SCH ×6 (01:00→20:59)
[2017-01-23] MEDS: IPRATROPIUM (HFA) 12.9 GM INHALER INH SCH ×4 (01:25→19:23)
[2017-01-23] MEDS: ALBUTEROL 18 GM INHALER INH SCH ×4 (01:25→19:23)
[2017-01-23] MEDS: DEXTROSE 50% 50 ML SYRINGE IV PRN (03:45)
[2017-01-23] MEDS: PROPOFOL 100 ML IV SCH ×2 (04:00→16:00)
[2017-01-23 05:21] LABS: ABNORMAL IP MESSAGE 1; BASOPHILS % 0.2 % (0.0-2.0); EOSINOPHILS # 0.4 10^3/ul (0.0-0.5); EOSINOPHILS % 2.9 % (0.0-7.0); HEMATOCRIT 30.9 % (37.0-47.0); LYMPHOCYTES # 0.5 10^3/ul (0.8-2.9); LYMPHOCYTES % 3.8 % (15.0-51.0); MEAN CORPUSCULAR HEMOGLOBIN 29.6 pg (29.0-33.0); MEAN CORPUSCULAR HGB CONC 32.4 g/dl (32.0-37.0); MEAN CORPUSCULAR VOLUME 91.4 fl (82.0-101.0); MEAN PLATELET VOLUME 9.9 fl (7.4-10.4); MONOCYTE # 0.6 10^3/ul (0.3-0.9); MONOCYTES % 4.2 % (0.0-11.0); NEUTROPHIL # 11.9 10^3/ul (1.6-7.5); PLATELET COUNT 222 10^3/UL (140-415); RED BLOOD COUNT 3.38 10^6/ul (4.20-5.40); RED CELL DISTRIBUTION WIDTH 15.9 % (11.5-14.5); WHITE BLOOD COUNT 13.6 10^3/ul (4.8-10.8)
[2017-01-23 05:38] LABS: POSITIVE DIFF @See below
[2017-01-23 05:46] LABS: CALCIUM 9.3 mg/dl (8.4-10.2); CREATININE 3.57 mg/dl (0.44-1.00); MAGNESIUM 2.8 mg/dl (1.7-2.5); POTASSIUM 4.4 mmol/L (3.5-5.1)
[2017-01-23] MEDS: DEXTROSE 5%-0.9% NACL 1,000 ML IV SCH (06:00)
[2017-01-23] MEDS: LEVOTHYROXINE 75 MCG TAB NGT SCH (06:17)
--- NOTE | 2017-01-23 07:35 | CONS ---
Date/Time of Note Date/Time of Note DATE: 01/23/17 TIME: 07:34 Consult Date/Type/Reason Admit Date/Time Jan 05, 2017 at 00:15 Initial Consult Date 01/05/17 Type of Consultation: cardiology Ordering Provider: SUSAN SIMENTAL DO Subjective CARDIOLOGY FOLLOW UP NOTE: D/W Staff and rhythm was reviewed. pt has remained in Afib. HR has been stable pt still remains on vent. NO reports of any chest pain or pressure S/P PEG 01/19/17 still Awaiting trach pt is nonverbal on vent. OBJECTIVE: General: intubated on vent. HEENT: NC/AT. pupils are equal. round. NECK: NO JVD. no stridor. CV:irregularly irregular. systolic murmur; no gallop or rubs. PULM: no wheezing, + mild rhonchi. GI: SOFT, NT, ND, no rebound or guarding S/P PEG Extremity: trace B/L LE edema. no clubbing. neuro: opens her eyes. . Psych: unable to assess rectal: deferred : normal ECHO 12/16/16: Personally reviewed 1. Normal left ventricular systolic function. Normal left ventricular cavity size. Moderate concentric left ventricular hypertrophy. Ejection fraction is visually estimated at 65 %. Abnormal Diastolic Function. 2. There is moderate enlargement of left atrium. 3. Mild mitral leaflet calcification. Mild mitral annular calcification. Trace mitral regurgitation. 4. Aortic sclerosis without stenosis. Trace aortic valve regurgitation. 5. Normal appearance of the tricuspid valve. Estimated peak PA systolic pressure 38 mmHg. There is mild tricuspid regurgitation. Objective Vital Signs Date Time Temp Pulse Resp B/P Pulse Ox O2 Delivery O2 Flow Rate FiO2 01/23/17 06:00 85 12 85/49 100 01/23/17 05:05 30 01/23/17 04:00 97.4 01/22/17 18:00 Mechanical Ventilator Intake and Output 01/22/17 01/22/17 01/23/17 15:00 23:00 07:00 Intake Total 300 ml 350 ml 400 ml Balance 300 ml 350 ml 400 ml Results/Medications Result Diagram: 01/23/17 0330 01/23/17 0330 Results 24 hrs Laboratory Tests Test 01/22/17 09:24 01/22/17 11:48 01/22/17 12:30 01/22/17 16:26 Bedside Glucose 142 137 110 Prothrombin Time 13.2 Prothrombin Time Ratio 1.0 INR International Normalized Ratio 1.00 Activated Partial Thromboplast Time 23.9 L Test 01/22/17 22:16 01/23/17 03:30 01/23/17 03:40 01/23/17 04:10 Bedside Glucose 74 60 L 103 White Blood Count 13.6 #H Red Blood Count 3.38 L Hemoglobin 10.0 L Hematocrit 30.9 L Mean Corpuscular Volume 91.4 Mean Corpuscular Hemoglobin 29.6 Mean Corpuscular Hemoglobin Concent 32.4 Red Cell Distribution Width 15.9 H Platelet Count 222 Mean Platelet Volume 9.9 Neutrophils % 88.0 H Lymphocytes % 3.8 L Monocytes % 4.2 Eosinophils % 2.9 Basophils % 0.2 Nucleated Red Blood Cells % 0.0 Neutrophils # 11.9 H Lymphocytes # 0.5 L Monocytes # 0.6 Eosinophils # 0.4 Basophils # 0.0 Nucleated Red Blood Cells # 0.0 Sodium Level 129 L Potassium Level 4.4 Chloride Level 96 L Carbon Dioxide Level 23 Anion Gap 14 Blood Urea Nitrogen 79 H Creatinine 3.57 H Glucose Level 51 #L Calcium Level 9.3 Phosphorus Level 5.0 H Magnesium Level 2.8 H Medications Current Medications Naloxone HCl (Narcan) 0.4 mg Q4 PRN IV SEDATION; Start 01/05/17 at 01:30 Bisacodyl (Dulcolax Supp) 10 mg DAILY MA Last administered on 01/22/17 09:14; Admin Dose 10 MG; Start 01/06/17 at 09:00 Budesonide (Pulmicort (Neb)) 0.25 mg BID NEB Last administered on 01/22/17 20: 21; Admin Dose 0.25 MG; Start 01/05/17 at 10:30 Fluticasone Propionate (Flonase 0.05% Nasal) 1 spray DAILY NASAL Last administered on 01/22/17 09:30; Admin Dose 1 SPRAY; Start 01/05/17 at 11:00 Fulvestrant (Faslodex) 500 mg Q28D IM ; Start 01/29/17 at 09:00 Insulin Glargine (Lantus) 18 unit DAILY SC Last administered on 01/22/17 09:33 ; Admin Dose 18 UNIT; Start 01/05/17 at 10:30 Magnesium Hydroxide (Milk Of Mag) 30 ml BID PRN PO CONSTIPATION Last administered on 01/16/17 09:09; Admin Dose 30 ML; Start 01/05/17 at 10:30 Nitroglycerin (Nitroglycerin 2% Oint) 0.5 inch Q6 PRN TD CHEST PAIN; Start 03/13 at 10:30 Ondansetron HCl (Zofran Inj) 4 mg Q6H PRN IV NAUSEA Last administered on 07:56; Admin Dose 4 MG; Start 01/05/17 at 10:30 Prednisone (Prednisone) 5 mg DAILY PO Last administered on 01/22/17 09:14; Admin Dose 5 MG; Start 01/05/17 at 12:00 Prednisone (Prednisone) 3 mg DAILY PO Last administered on 01/22/17 09:12; Admin Dose 3 MG; Start 01/05/17 at 12:00 Miscellaneous Information 1 ea NOTE XX ; Start 01/05/17 at 11:00 Glucose (Glutose) 15 gm Q15M PRN PO DECREASED GLUCOSE; Start 01/05/17 at 11:00 Glucose (Glutose) 22.5 gm Q15M PRN PO DECREASED GLUCOSE; Start 01/05/17 at 11: 00 Dextrose (D50w Syringe) 25 ml Q15M PRN IV DECREASED GLUCOSE Last administered on 01/23/17 03:45; Admin Dose 25 ML; Start 01/05/17 at 11:00 Dextrose (D50w Syringe) 50 ml Q15M PRN IV DECREASED GLUCOSE Last administered on 01/08/17 21:33; Admin Dose 50 ML; Start 01/05/17 at 11:00 Glucagon (Glucagen) 1 mg Q15M PRN IM DECREASED GLUCOSE; Start 01/05/17 at 11:00 Glucose (Glutose) 15 gm Q15M PRN BUCCAL DECREASED GLUCOSE; Start 01/05/17 at 11 :00 Insulin Aspart NOVOLOG *MILD* ALGORI... Q4 SC Last administered on 01/21/17 05 :53; Admin Dose 1 UNIT; Start 01/05/17 at 13:00 Fentanyl 100 ml @ 2.5 mls/hr TITRATE IV Last administered on 01/07/17 02:25; Admin Dose 7.5 MLS/HR; Start 01/06/17 at 09:30 Norepinephrine/ Dextrose (Levophed/D5W) 500 ml @ 0 mls/hr TITRATE IV ; Start 04/12 at 13:30 Bumetanide 1 mg 1 mg BID IV Last administered on 01/13/17 21:06; Admin Dose 1 MG; Start 01/08/17 at 09:00; Status Future Hold Propofol (Diprivan) 100 ml @ 2.19 mls/hr Q12H IV Last administered on 07:04; Admin Dose 15.28 MLS/HR; Start 01/08/17 at 16:00 Miscellaneous Information (*Order Clarification Bulletin) FULVESTRANT 250 MG/5 ML SYG: PLE... Q8H XX ; Start 01/26/17 at 09:00 Acetaminophen (Tylenol Tab) 650 mg Q6H PRN NGT PAIN AND OR ELEVATED TEMP; Start 01/17/17 at 22:30 Apixaban (Eliquis) 2.5 mg BID NGT Last administered on 01/18/17 08:20; Admin Dose 2.5 MG; Start 01/17/17 at 21:00; Status Future Hold Ascorbic Acid (Vitamin C) 500 mg BID NGT Last administered on 01/22/17 21:12; Admin Dose 500 MG; Start 01/17/17 at 21:00 Levothyroxine Sodium (Synthroid) 75 mcg DAILY@06 NGT Last administered on 06:17; Admin Dose 75 MCG; Start 01/18/17 at 06:00 Loratadine (Claritin) 10 mg DAILY NGT Last administered on 01/22/17 09:14; Admin Dose 10 MG; Start 01/18/17 at 09:00 Metoprolol Tartrate (Lopressor) 25 mg BID NGT Last administered on 01/22/17 21 :11; Admin Dose 25 MG; Start 01/17/17 at 21:00 Mirtazapine (Remeron) 15 mg HS NGT Last administered on 01/22/17 21:12; Admin Dose 15 MG; Start 01/17/17 at 21:00 Oxcarbazepine (Trileptal) 600 mg BID NGT Last administered on 01/22/17 21:12; Admin Dose 600 MG; Start 01/17/17 at 21:00 Senna (Senokot) 1 tab HS NGT Last administered on 01/22/17 21:12; Admin Dose 1 TAB; Start 01/17/17 at 21:00 Sertraline HCl (Zoloft) 75 mg DAILY NGT Last administered on 01/22/17 09:30; Admin Dose 75 MG; Start 01/18/17 at 09:00 Sildenafil Citrate (Revatio) 20 mg TID NGT Last administered on 01/22/17 21:12 ; Admin Dose 20 MG; Start 01/17/17 at 21:00 Tacrolimus (Prograf) 2 mg QPM NGT Last administered on 01/22/17 21:11; Admin Dose 2 MG; Start 01/17/17 at 21:00 Docusate Sodium (Colace Liquid Cup) 100 mg BID NGT Last administered on 21:11; Admin Dose 100 MG; Start 01/17/17 at 21:00 Voriconazole (Vfend) 200 mg BID PO Last administered on 01/22/17 21:12; Admin Dose 200 MG; Start 01/19/17 at 21:00 Famotidine (Pepcid) 20 mg DAILY NGT Last administered on 01/22/17 09:13; Admin Dose 20 MG; Start 01/20/17 at 09:00 Lorazepam 1 mg 1 mg Q6H PRN IV anxiety Last administered on 01/22/17 22:49; Admin Dose 1 MG; Start 01/22/17 at 09:00 Dextrose/Sodium Chloride (D5-NS) 1,000 ml @ 50 mls/hr Q20H IV Last administered on 01/23/17 06:00; Admin Dose 50 MLS/HR; Start 01/22/17 at 09:00 Assessment/Plan Chief Complaint/Hosp Course Assessment: 1. s/p cardiopulmonary arrest: Most likely due to pulmonary arrest 2. P afib: 3. History of renal failure status post renal transplant: now with KATI on CKD 4. Acute on chronic hypoxemic hypercapnic respiratory failure status post reintubation: currently on the vent 5. Shock: resolved now. 6. ANEMIA 7. breast cancer 8. history of HTN: 9. anxiety 10. DM 11. Hypothyroidism: on synthroid. 12. pleural effusion : s/p thoracentesis 13. Dysphagia: s/p PEG Recommendations: vent support for now anti- rejection medications to be adjusted as per renal team. HD as per renal. cont DM control thyroid supplement betablocker as tolerated. correct lytes prn cont tele monitoring transfusion prn cont ICU care. eliquis is on hold now for trach and anemia to be resumed post trach, Thank you for this referral I will continue to follow along with you. AUGUSTINA MALDONADO MD [facility] Problems: AUGUSTINA MALDONADO MD Jan 23, 2017 07:35
[2017-01-23] MEDS ORDERED: ALBUMIN HUMAN 25% 100 ML IV ONE (08:00)
--- NOTE | 2017-01-23 08:30 | PN ---
DATE: 01/23/2017 SUBJECTIVE DATA: The patient remains critically ill, on ventilatory support. The patient is pending possible trach placement. The patient is scheduled for dialysis today. No other events noted. OBJECTIVE DATA: VITAL SIGNS: Blood pressure is 85/49, respirations 12, pulse 85, temperature 97.4. HEENT: Head is normocephalic. NECK: Supple. HEART: Regular rate. LUNGS: Diminished breath sounds at the base. ABDOMEN: Soft, nontender to palpation. No rebound or guarding. EXTREMITIES: Negative for clubbing, cyanosis. No edema. DERMATOLOGIC: Clean. No rashes. MUSCULOSKELETAL: No joint effusion. NEUROLOGIC: Unchanged exam. MEDICATIONS: Reviewed. LABORATORY AND DIAGNOSTIC DATA: Shows sodium 129, potassium 4.4, chloride 96, BUN 79, creatinine 3.57, phosphorus 5.0, magnesium 2.8. WBC 13.6, hemoglobin 10.0, hematocrit 38.9, platelet count is 222. ASSESSMENT AND PLAN: 1. 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 Etiology secondary to acute tubular necrosis. The patient is currently dialysis dependent. No signs of recovery. Anticipate hemodialysis today. 2. Hyponatremia. Continue hemodialysis and 140 sodium bath. 3. Paroxysmal atrial fibrillation. Currently in sinus rhythm. 4. Sepsis status post shock secondary to pneumonia, fungal urinary tract infection. Continue antifungal therapy. 5. History of end-stage renal disease. Status post renal transplant with chronic allograft failure. The patient is currently in acute kidney injury as stated above. Continue current medical management. Continue immunosuppressive regimen. 6. Hypothyroidism. Continue Synthroid. 7. Anemia. Monitor H and H levels. 8. Diabetes. Continue current insulin regimen. 9. Pulmonary hypertension. Continue medical management. 10. Dysphagia. Continue tube feeding. 11. History of breast cancer. Follow up with Hematology. 12. Gastrointestinal and deep venous thrombosis prophylaxis. 13. Bilateral pleural effusion. Consider thoracentesis. Dictated By: Cameron Rosenthal DO /[email or web address] /Document#: [id number]
[2017-01-23] MEDS: TACROLIMUS 0.5 MG CAP NGT SCH ×2 (08:51→20:50)
[2017-01-23] MEDS: predniSONE 5 MG TAB PO SCH (08:51)
[2017-01-23] MEDS: DOCUSATE SODIUM 10 MG/ML (10ML CUP) NGT SCH ×2 (08:51→20:50)
[2017-01-23] MEDS: OXCARBAZEPINE 300 MG TAB NGT SCH ×2 (08:51→20:51)
[2017-01-23] MEDS: BISACODYL 10 MG SUPP PR SCH (08:51)
[2017-01-23] MEDS: ASCORBIC ACID 500 MG TAB NGT SCH ×2 (08:51→20:52)
[2017-01-23] MEDS: SERTRALINE 50 MG TAB NGT SCH (08:52)
[2017-01-23] MEDS: VORICONAZOLE 200 MG TAB PO SCH ×2 (08:52→20:51)
[2017-01-23] MEDS: METOPROLOL 25 MG TAB NGT SCH ×2 (08:52→20:51)
[2017-01-23] MEDS: FAMOTIDINE 20 MG TAB NGT SCH (08:52)
[2017-01-23] MEDS: predniSONE 1 MG TAB PO SCH (08:52)
[2017-01-23] MEDS: LORATADINE 10 MG TAB NGT SCH (08:53)
[2017-01-23] MEDS: FLUTICASONE 0.05% 16 GM NAS SPRAY NASAL SCH (08:53)
[2017-01-23] MEDS: SILDENAFIL 20 MG TAB NGT SCH ×3 (08:54→20:51)
[2017-01-23] MEDS: BALSAM PERU/CASTOR OIL 60 GM TUBE TOP SCH (09:22)
[2017-01-23] MEDS: INSULIN GLARGINE [LANtus] 3 ML PEN SC SCH (09:22)
[2017-01-23] MEDS: BUDESONIDE (NEB) 0.25 MG/2 ML AMP NEB SCH ×2 (09:48→21:13)
--- NOTE | 2017-01-23 10:15 | CONS ---
Date/Time of Note Date/Time of Note DATE: 01/23/17 TIME: 10:13 Consult Date/Type/Reason Admit Date/Time Jan 05, 2017 at 00:15 Initial Consult Date 01/05/17 Type of Consultation: Pulmonary Ordering Provider: SUSAN SIMENTAL DO Subjective Patient awake alert comfortable this morning. Pending replacement of Bandar catheter. Pending tracheostomy placement. Objective Vital Signs Date Time Temp Pulse Resp B/P Pulse Ox O2 Delivery O2 Flow Rate FiO2 01/23/17 09:50 108 13 100 30 01/23/17 09:30 132/78 01/23/17 08:00 97.8 01/22/17 18:00 Mechanical Ventilator Intake and Output 01/22/17 01/22/17 01/23/17 15:00 23:00 07:00 Intake Total 300 ml 350 ml 400 ml Balance 300 ml 350 ml 400 ml Exam PHYSICAL EXAMINATION GENERAL: Elderly lady intubated on mechanical ventilation appears comfortable at rest VITAL SIGNS: see below. HEENT: Pupils equal, round, and reactive to light. CARDIAC: S1, S2, 1/6 systolic ejection murmur CHEST: Diminished air entry bilaterally. ABDOMEN: Mildly distended. Bowel sounds present no guarding or rebound EXTREMITIES: No cyanosis, clubbing edema +1 NEUROLOGIC: Generalized weakness Results/Medications Result Diagram: 01/23/17 0330 01/23/17 0330 Results 24 hrs Laboratory Tests Test 01/22/17 11:48 01/22/17 12:30 01/22/17 16:26 01/22/17 22:16 Prothrombin Time 13.2 Prothrombin Time Ratio 1.0 INR International Normalized Ratio 1.00 Activated Partial Thromboplast Time 23.9 L Bedside Glucose 137 110 74 Test 01/23/17 03:30 01/23/17 03:40 01/23/17 04:10 01/23/17 07:41 White Blood Count 13.6 #H Red Blood Count 3.38 L Hemoglobin 10.0 L Hematocrit 30.9 L Mean Corpuscular Volume 91.4 Mean Corpuscular Hemoglobin 29.6 Mean Corpuscular Hemoglobin Concent 32.4 Red Cell Distribution Width 15.9 H Platelet Count 222 Mean Platelet Volume 9.9 Neutrophils % 88.0 H Lymphocytes % 3.8 L Monocytes % 4.2 Eosinophils % 2.9 Basophils % 0.2 Nucleated Red Blood Cells % 0.0 Neutrophils # 11.9 H Lymphocytes # 0.5 L Monocytes # 0.6 Eosinophils # 0.4 Basophils # 0.0 Nucleated Red Blood Cells # 0.0 Sodium Level 129 L Potassium Level 4.4 Chloride Level 96 L Carbon Dioxide Level 23 Anion Gap 14 Blood Urea Nitrogen 79 H Creatinine 3.57 H Glucose Level 51 #L Calcium Level 9.3 Phosphorus Level 5.0 H Magnesium Level 2.8 H Bedside Glucose 60 L 103 91 Medications Current Medications Naloxone HCl (Narcan) 0.4 mg Q4 PRN IV SEDATION; Start 01/05/17 at 01:30 Bisacodyl (Dulcolax Supp) 10 mg DAILY [place] Last administered on 01/23/17 08:51; Admin Dose 10 MG; Start 01/06/17 at 09:00 Budesonide (Pulmicort (Neb)) 0.25 mg BID NEB Last administered on 01/23/17 09: 48; Admin Dose 0.25 MG; Start 01/05/17 at 10:30 Fluticasone Propionate (Flonase 0.05% Nasal) 1 spray DAILY NASAL Last administered on 01/23/17 08:53; Admin Dose 1 SPRAY; Start 01/05/17 at 11:00 Fulvestrant (Faslodex) 500 mg Q28D IM ; Start 01/29/17 at 09:00 Insulin Glargine (Lantus) 18 unit DAILY SC Last administered on 01/23/17 09:22 ; Admin Dose 18 UNIT; Start 01/05/17 at 10:30 Magnesium Hydroxide (Milk Of Mag) 30 ml BID PRN PO CONSTIPATION Last administered on 01/16/17 09:09; Admin Dose 30 ML; Start 01/05/17 at 10:30 Nitroglycerin (Nitroglycerin 2% Oint) 0.5 inch Q6 PRN TD CHEST PAIN; Start 03/13 at 10:30 Ondansetron HCl (Zofran Inj) 4 mg Q6H PRN IV NAUSEA Last administered on 07:56; Admin Dose 4 MG; Start 01/05/17 at 10:30 Prednisone (Prednisone) 5 mg DAILY PO Last administered on 01/23/17 08:51; Admin Dose 5 MG; Start 01/05/17 at 12:00 Prednisone (Prednisone) 3 mg DAILY PO Last administered on 01/23/17 08:52; Admin Dose 3 MG; Start 01/05/17 at 12:00 Miscellaneous Information 1 ea NOTE XX ; Start 01/05/17 at 11:00 Glucose (Glutose) 15 gm Q15M PRN PO DECREASED GLUCOSE; Start 01/05/17 at 11:00 Glucose (Glutose) 22.5 gm Q15M PRN PO DECREASED GLUCOSE; Start 01/05/17 at 11: 00 Dextrose (D50w Syringe) 25 ml Q15M PRN IV DECREASED GLUCOSE Last administered on 01/23/17 03:45; Admin Dose 25 ML; Start 01/05/17 at 11:00 Dextrose (D50w Syringe) 50 ml Q15M PRN IV DECREASED GLUCOSE Last administered on 01/08/17 21:33; Admin Dose 50 ML; Start 01/05/17 at 11:00 Glucagon (Glucagen) 1 mg Q15M PRN IM DECREASED GLUCOSE; Start 01/05/17 at 11:00 Glucose (Glutose) 15 gm Q15M PRN BUCCAL DECREASED GLUCOSE; Start 01/05/17 at 11 :00 Insulin Aspart NOVOLOG *MILD* ALGORI... Q4 SC Last administered on 01/21/17 05 :53; Admin Dose 1 UNIT; Start 01/05/17 at 13:00 Fentanyl 100 ml @ 2.5 mls/hr TITRATE IV Last administered on 01/07/17 02:25; Admin Dose 7.5 MLS/HR; Start 01/06/17 at 09:30 Norepinephrine/ Dextrose (Levophed/D5W) 500 ml @ 0 mls/hr TITRATE IV ; Start 04/12 at 13:30 Bumetanide 1 mg 1 mg BID IV Last administered on 01/13/17 21:06; Admin Dose 1 MG; Start 01/08/17 at 09:00; Status Future Hold Propofol (Diprivan) 100 ml @ 2.19 mls/hr Q12H IV Last administered on 07:04; Admin Dose 15.28 MLS/HR; Start 01/08/17 at 16:00 Miscellaneous Information (*Order Clarification Bulletin) FULVESTRANT 250 MG/5 ML SYG: PLE... Q8H XX ; Start 01/26/17 at 09:00 Acetaminophen (Tylenol Tab) 650 mg Q6H PRN NGT PAIN AND OR ELEVATED TEMP; Start 01/17/17 at 22:30 Apixaban (Eliquis) 2.5 mg BID NGT Last administered on 01/18/17 08:20; Admin Dose 2.5 MG; Start 01/17/17 at 21:00; Status Future Hold Ascorbic Acid (Vitamin C) 500 mg BID NGT Last administered on 01/23/17 08:51; Admin Dose 500 MG; Start 01/17/17 at 21:00 Levothyroxine Sodium (Synthroid) 75 mcg DAILY@06 NGT Last administered on 06:17; Admin Dose 75 MCG; Start 01/18/17 at 06:00 Loratadine (Claritin) 10 mg DAILY NGT Last administered on 01/23/17 08:53; Admin Dose 10 MG; Start 01/18/17 at 09:00 Metoprolol Tartrate (Lopressor) 25 mg BID NGT Last administered on 01/23/17 08 :52; Admin Dose 25 MG; Start 01/17/17 at 21:00 Mirtazapine (Remeron) 15 mg HS NGT Last administered on 01/22/17 21:12; Admin Dose 15 MG; Start 01/17/17 at 21:00 Oxcarbazepine (Trileptal) 600 mg BID NGT Last administered on 01/23/17 08:51; Admin Dose 600 MG; Start 01/17/17 at 21:00 Senna (Senokot) 1 tab HS NGT Last administered on 01/22/17 21:12; Admin Dose 1 TAB; Start 01/17/17 at 21:00 Sertraline HCl (Zoloft) 75 mg DAILY NGT Last administered on 01/23/17 08:52; Admin Dose 75 MG; Start 01/18/17 at 09:00 Sildenafil Citrate (Revatio) 20 mg TID NGT Last administered on 01/23/17 08:54 ; Admin Dose 20 MG; Start 01/17/17 at 21:00 Tacrolimus (Prograf) 2 mg QPM NGT Last administered on 01/22/17 21:11; Admin Dose 2 MG; Start 01/17/17 at 21:00 Docusate Sodium (Colace Liquid Cup) 100 mg BID NGT Last administered on 08:51; Admin Dose 100 MG; Start 01/17/17 at 21:00 Voriconazole (Vfend) 200 mg BID PO Last administered on 01/23/17 08:52; Admin Dose 200 MG; Start 01/19/17 at 21:00 Famotidine (Pepcid) 20 mg DAILY NGT Last administered on 01/23/17 08:52; Admin Dose 20 MG; Start 01/20/17 at 09:00 Lorazepam (Ativan) 1 mg Q6H PRN IV anxiety Last administered on 01/22/17 22:49 ; Admin Dose 1 MG; Start 01/22/17 at 09:00 Assessment/Plan Chief Complaint/Hosp Course IMPRESSION: 1. Hypoxemic respiratory failure. Status post thoracentesis. Failed multiple CPAP weaning trials pending tracheostomy 2. Possible altered mental status secondary to opioids. Significant anxiety component. 3. History of renal transplant. Renal insufficiency. Hyponatremia. 4. Dysphagia now with G-tube 5. Persistent leukocytosis. PLAN: 1. Continue supportive care, pending tracheostomy, 2. Decrease sedation as tolerated. 3. Continue ID recommendations 4. Renal recommendations. 5. DVT and GI prophylaxis. 6. Tube feeding once tracheostomy placed Critical care time 40 minutes. Prognosis guarded. Problems: LESA SAMUELS MD, [facility] Jan 23, 2017 10:15
[2017-01-23] MEDS: LORAZEPAM 2 MG INJ IV PRN ×2 (11:22→17:49)
[2017-01-23] MEDS ORDERED: HEPARIN 1000 UNITS/ML 10 ML INJ ONE (14:55)
[2017-01-23] MEDS: ONDANSETRON 4 MG INJ IV PRN (17:49)
--- NOTE | 2017-01-23 17:56 | CONS ---
Date/Time of Note Date/Time of Note DATE: 01/23/17 TIME: 17:55 Assessment/Plan Assessment/Plan Chief Complaint/Hosp Course History of breast cancer with lung metastasis. The patient is on medical management. on Faslodex as outpt Anemia. Monitor hemoglobin and hematocrit levels. 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 Congestive heart failure exacerbation. Hypothyroidism. Diabetes. Continue current insulin regimen. Pulmonary hypertension. Depression. Problems: Consultation Date/Type/Reason Admit Date/Time Jan 05, 2017 at 00:15 Initial Consult Date 01/05/17 Type of Consultation: hemeon Referring Provider: SUSAN SIMENTAL DO 24 HR Interval Summary Free Text/Dictation D/W RN NO NEW EVENTS Exam/Review of Systems Vital Signs Vitals Vital Signs Date Time Temp Pulse Resp B/P Pulse Ox O2 Delivery O2 Flow Rate FiO2 01/23/17 17:44 91 16 100 30 01/23/17 16:00 97.9 01/23/17 11:30 137/55 01/22/17 18:00 Mechanical Ventilator Intake and Output 01/22/17 01/22/17 01/23/17 15:00 23:00 07:00 Intake Total 300 ml 350 ml 400 ml Balance 300 ml 350 ml 400 ml Exam HEENT: Head is normocephalic. NECK: Supple. HEART: Regular rate. LUNGS: Show diminished breath sounds base. Positive rhonchi. ABDOMEN: Soft, nontender to palpation. No rebound or guarding. EXTREMITIES: Negative for clubbing, cyanosis. No edema. DERMATOLOGIC: Clean. No rashes. MUSCULOSKELETAL: No joint effusion. NEUROLOGIC: No change in exam. Results Result Diagram: 01/23/17 0330 01/23/17 0330 Results 24 hrs Laboratory Tests Test 01/22/17 22:16 01/23/17 03:30 01/23/17 03:40 01/23/17 04:10 Bedside Glucose 74 60 L 103 White Blood Count 13.6 #H Red Blood Count 3.38 L Hemoglobin 10.0 L Hematocrit 30.9 L Mean Corpuscular Volume 91.4 Mean Corpuscular Hemoglobin 29.6 Mean Corpuscular Hemoglobin Concent 32.4 Red Cell Distribution Width 15.9 H Platelet Count 222 Mean Platelet Volume 9.9 Neutrophils % 88.0 H Lymphocytes % 3.8 L Monocytes % 4.2 Eosinophils % 2.9 Basophils % 0.2 Nucleated Red Blood Cells % 0.0 Neutrophils # 11.9 H Lymphocytes # 0.5 L Monocytes # 0.6 Eosinophils # 0.4 Basophils # 0.0 Nucleated Red Blood Cells # 0.0 Sodium Level 129 L Potassium Level 4.4 Chloride Level 96 L Carbon Dioxide Level 23 Anion Gap 14 Blood Urea Nitrogen 79 H Creatinine 3.57 H Glucose Level 51 #L Calcium Level 9.3 Phosphorus Level 5.0 H Magnesium Level 2.8 H Test 01/23/17 07:41 01/23/17 13:21 Bedside Glucose 91 132 Medications Medications Current Medications Naloxone HCl (Narcan) 0.4 mg Q4 PRN IV SEDATION; Start 01/05/17 at 01:30 Bisacodyl (Dulcolax Supp) 10 mg DAILY [place] Last administered on 01/23/17 08:51; Admin Dose 10 MG; Start 01/06/17 at 09:00 Budesonide (Pulmicort (Neb)) 0.25 mg BID NEB Last administered on 01/23/17 09: 48; Admin Dose 0.25 MG; Start 01/05/17 at 10:30 Fluticasone Propionate (Flonase 0.05% Nasal) 1 spray DAILY NASAL Last administered on 01/23/17 08:53; Admin Dose 1 SPRAY; Start 01/05/17 at 11:00 Fulvestrant (Faslodex) 500 mg Q28D IM ; Start 01/29/17 at 09:00 Insulin Glargine (Lantus) 18 unit DAILY SC Last administered on 01/23/17 09:22 ; Admin Dose 18 UNIT; Start 01/05/17 at 10:30 Magnesium Hydroxide (Milk Of Mag) 30 ml BID PRN PO CONSTIPATION Last administered on 01/16/17 09:09; Admin Dose 30 ML; Start 01/05/17 at 10:30 Nitroglycerin (Nitroglycerin 2% Oint) 0.5 inch Q6 PRN TD CHEST PAIN; Start 03/13 at 10:30 Ondansetron HCl (Zofran Inj) 4 mg Q6H PRN IV NAUSEA Last administered on 17:49; Admin Dose 4 MG; Start 01/05/17 at 10:30 Prednisone (Prednisone) 5 mg DAILY PO Last administered on 01/23/17 08:51; Admin Dose 5 MG; Start 01/05/17 at 12:00 Prednisone (Prednisone) 3 mg DAILY PO Last administered on 01/23/17 08:52; Admin Dose 3 MG; Start 01/05/17 at 12:00 Miscellaneous Information 1 ea NOTE XX ; Start 01/05/17 at 11:00 Glucose (Glutose) 15 gm Q15M PRN PO DECREASED GLUCOSE; Start 01/05/17 at 11:00 Glucose (Glutose) 22.5 gm Q15M PRN PO DECREASED GLUCOSE; Start 01/05/17 at 11: 00 Dextrose (D50w Syringe) 25 ml Q15M PRN IV DECREASED GLUCOSE Last administered on 01/23/17 03:45; Admin Dose 25 ML; Start 01/05/17 at 11:00 Dextrose (D50w Syringe) 50 ml Q15M PRN IV DECREASED GLUCOSE Last administered on 01/08/17 21:33; Admin Dose 50 ML; Start 01/05/17 at 11:00 Glucagon (Glucagen) 1 mg Q15M PRN IM DECREASED GLUCOSE; Start 01/05/17 at 11:00 Glucose (Glutose) 15 gm Q15M PRN BUCCAL DECREASED GLUCOSE; Start 01/05/17 at 11 :00 Insulin Aspart NOVOLOG *MILD* ALGORI... Q4 SC Last administered on 01/21/17 05 :53; Admin Dose 1 UNIT; Start 01/05/17 at 13:00 Fentanyl 100 ml @ 2.5 mls/hr TITRATE IV Last administered on 01/07/17 02:25; Admin Dose 7.5 MLS/HR; Start 01/06/17 at 09:30 Norepinephrine/ Dextrose (Levophed/D5W) 500 ml @ 0 mls/hr TITRATE IV ; Start 04/12 at 13:30 Bumetanide 1 mg 1 mg BID IV Last administered on 01/13/17 21:06; Admin Dose 1 MG; Start 01/08/17 at 09:00; Status Future Hold Propofol (Diprivan) 100 ml @ 2.19 mls/hr Q12H IV Last administered on 07:04; Admin Dose 15.28 MLS/HR; Start 01/08/17 at 16:00 Miscellaneous Information (*Order Clarification Bulletin) FULVESTRANT 250 MG/5 ML SYG: PLE... Q8H XX ; Start 01/26/17 at 09:00 Acetaminophen (Tylenol Tab) 650 mg Q6H PRN NGT PAIN AND OR ELEVATED TEMP; Start 01/17/17 at 22:30 Apixaban (Eliquis) 2.5 mg BID NGT Last administered on 01/18/17 08:20; Admin Dose 2.5 MG; Start 01/17/17 at 21:00; Status Future Hold Ascorbic Acid (Vitamin C) 500 mg BID NGT Last administered on 01/23/17 08:51; Admin Dose 500 MG; Start 01/17/17 at 21:00 Levothyroxine Sodium (Synthroid) 75 mcg DAILY@06 NGT Last administered on 06:17; Admin Dose 75 MCG; Start 01/18/17 at 06:00 Loratadine (Claritin) 10 mg DAILY NGT Last administered on 01/23/17 08:53; Admin Dose 10 MG; Start 01/18/17 at 09:00 Metoprolol Tartrate (Lopressor) 25 mg BID NGT Last administered on 01/23/17 08 :52; Admin Dose 25 MG; Start 01/17/17 at 21:00 Mirtazapine (Remeron) 15 mg HS NGT Last administered on 01/22/17 21:12; Admin Dose 15 MG; Start 01/17/17 at 21:00 Oxcarbazepine (Trileptal) 600 mg BID NGT Last administered on 01/23/17 08:51; Admin Dose 600 MG; Start 01/17/17 at 21:00 Senna (Senokot) 1 tab HS NGT Last administered on 01/22/17 21:12; Admin Dose 1 TAB; Start 01/17/17 at 21:00 Sertraline HCl (Zoloft) 75 mg DAILY NGT Last administered on 01/23/17 08:52; Admin Dose 75 MG; Start 01/18/17 at 09:00 Sildenafil Citrate (Revatio) 20 mg TID NGT Last administered on 01/23/17 13:25 ; Admin Dose 20 MG; Start 01/17/17 at 21:00 Tacrolimus (Prograf) 2 mg QPM NGT Last administered on 01/22/17 21:11; Admin Dose 2 MG; Start 01/17/17 at 21:00 Docusate Sodium (Colace Liquid Cup) 100 mg BID NGT Last administered on 08:51; Admin Dose 100 MG; Start 01/17/17 at 21:00 Voriconazole (Vfend) 200 mg BID PO Last administered on 01/23/17 08:52; Admin Dose 200 MG; Start 01/19/17 at 21:00 Famotidine (Pepcid) 20 mg DAILY NGT Last administered on 01/23/17 08:52; Admin Dose 20 MG; Start 01/20/17 at 09:00 Lorazepam (Ativan) 1 mg Q6H PRN IV anxiety Last administered on 01/23/17 17:49 ; Admin Dose 1 MG; Start 01/22/17 at 09:00 SHANICE DAVENPORT MD Jan 23, 2017 17:56
--- NOTE | 2017-01-23 20:28 | CONS ---
Date/Time of Note Date/Time of Note DATE: 01/23/17 TIME: 20:27 Assessment/Plan Assessment/Plan Additional Assessment/Plan Assessment/Plan Assessment/Plan Additional Assessment/Plan Additional Assessment/Plan 1. Respiratory failure. 2. Dysphagia. 3. Sepsis. 4. Renal failure. 5. Diabetes mellitus. 6. Breast cancer with metastasis. 7. Chronic obstructive pulmonary disease. 8. Pulmonary hypertension. 9. Atrial fibrillation. 10. Deconditioning 11. Status post renal transplant on immunosuppressive medication 12. Persistent leukocytosis 13. Respiratory failure reintubated 14. Status post PEG 15. Anemia, no evidence of active bleeding Plan Patient is tolerating feeding and will gradually increase it until the goal is achieved. Continue present care Awaiting for the tracheostomy Consultation Date/Type/Reason Admit Date/Time Jan 05, 2017 at 00:15 Initial Consult Date 01/05/17 Type of Consultation: [facility] Referring Provider: SUSAN SIMENTAL DO 24 HR Interval Summary Subjective hx not possible: pt non-verbal Constitutional: no complaints Exam/Review of Systems Vital Signs Vitals Vital Signs Date Time Temp Pulse Resp B/P Pulse Ox O2 Delivery O2 Flow Rate FiO2 01/23/17 18:30 95 25 100 01/23/17 18:00 150/70 01/23/17 17:44 30 01/23/17 16:00 97.9 01/22/17 18:00 Mechanical Ventilator Intake and Output 01/22/17 01/22/17 01/23/17 15:00 23:00 07:00 Intake Total 300 ml 350 ml 400 ml Balance 300 ml 350 ml 400 ml Exam Constitutional: alert, oriented, well developed Psych: nl mood/affect, no complaints Head: atraumatic, normocephalic Eyes: EOMI, PERRL, nl conjunctiva, nl lids, nl sclera ENMT: nl external ears & nose, nl lips & teeth, nl nasal mucosa & septum Neck: non-tender, supple Respiratory: clear to auscultation, normal air movement Cardiovascular: nl pulses, regular rate and rhythm Gastrointestinal: nl liver, spleen, non-tender, soft Musculoskeletal: nl extremities to inspection, nl gait and stance Extremities: normal pulses Neurological: 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 intact, nl mental status, nl speech, nl strength Skin: nl turgor, No rash or lesions Lymph: nl lymph nodes Results Result Diagram: 01/23/17 0330 01/23/17 0330 Results 24 hrs Laboratory Tests Test 01/22/17 22:16 01/23/17 03:30 01/23/17 03:40 01/23/17 04:10 Bedside Glucose 74 60 L 103 White Blood Count 13.6 #H Red Blood Count 3.38 L Hemoglobin 10.0 L Hematocrit 30.9 L Mean Corpuscular Volume 91.4 Mean Corpuscular Hemoglobin 29.6 Mean Corpuscular Hemoglobin Concent 32.4 Red Cell Distribution Width 15.9 H Platelet Count 222 Mean Platelet Volume 9.9 Neutrophils % 88.0 H Lymphocytes % 3.8 L Monocytes % 4.2 Eosinophils % 2.9 Basophils % 0.2 Nucleated Red Blood Cells % 0.0 Neutrophils # 11.9 H Lymphocytes # 0.5 L Monocytes # 0.6 Eosinophils # 0.4 Basophils # 0.0 Nucleated Red Blood Cells # 0.0 Sodium Level 129 L Potassium Level 4.4 Chloride Level 96 L Carbon Dioxide Level 23 Anion Gap 14 Blood Urea Nitrogen 79 H Creatinine 3.57 H Glucose Level 51 #L Calcium Level 9.3 Phosphorus Level 5.0 H Magnesium Level 2.8 H Test 01/23/17 07:41 01/23/17 13:21 01/23/17 18:13 Bedside Glucose 91 132 72 Medications Medications Current Medications Naloxone HCl (Narcan) 0.4 mg Q4 PRN IV SEDATION; Start 01/05/17 at 01:30 Bisacodyl (Dulcolax Supp) 10 mg DAILY [place] Last administered on 01/23/17 08:51; Admin Dose 10 MG; Start 01/06/17 at 09:00 Budesonide (Pulmicort (Neb)) 0.25 mg BID NEB Last administered on 01/23/17 09: 48; Admin Dose 0.25 MG; Start 01/05/17 at 10:30 Fluticasone Propionate (Flonase 0.05% Nasal) 1 spray DAILY NASAL Last administered on 01/23/17 08:53; Admin Dose 1 SPRAY; Start 01/05/17 at 11:00 Fulvestrant (Faslodex) 500 mg Q28D IM ; Start 01/29/17 at 09:00 Insulin Glargine (Lantus) 18 unit DAILY SC Last administered on 9/29/17at 09:22 ; Admin Dose 18 UNIT; Start 01/05/17 at 10:30 Magnesium Hydroxide (Milk Of Mag) 30 ml BID PRN PO CONSTIPATION Last administered on 01/16/17 09:09; Admin Dose 30 ML; Start 01/05/17 at 10:30 Nitroglycerin (Nitroglycerin 2% Oint) 0.5 inch Q6 PRN TD CHEST PAIN; Start 03/13 at 10:30 Ondansetron HCl (Zofran Inj) 4 mg Q6H PRN IV NAUSEA Last administered on 17:49; Admin Dose 4 MG; Start 01/05/17 at 10:30 Prednisone (Prednisone) 5 mg DAILY PO Last administered on 01/23/17 08:51; Admin Dose 5 MG; Start 01/05/17 at 12:00 Prednisone (Prednisone) 3 mg DAILY PO Last administered on 01/23/17 08:52; Admin Dose 3 MG; Start 01/05/17 at 12:00 Miscellaneous Information 1 ea NOTE XX ; Start 01/05/17 at 11:00 Glucose (Glutose) 15 gm Q15M PRN PO DECREASED GLUCOSE; Start 01/05/17 at 11:00 Glucose (Glutose) 22.5 gm Q15M PRN PO DECREASED GLUCOSE; Start 01/05/17 at 11: 00 Dextrose (D50w Syringe) 25 ml Q15M PRN IV DECREASED GLUCOSE Last administered on 01/23/17 03:45; Admin Dose 25 ML; Start 01/05/17 at 11:00 Dextrose (D50w Syringe) 50 ml Q15M PRN IV DECREASED GLUCOSE Last administered on 01/08/17 21:33; Admin Dose 50 ML; Start 01/05/17 at 11:00 Glucagon (Glucagen) 1 mg Q15M PRN IM DECREASED GLUCOSE; Start 01/05/17 at 11:00 Glucose (Glutose) 15 gm Q15M PRN BUCCAL DECREASED GLUCOSE; Start 01/05/17 at 11 :00 Insulin Aspart NOVOLOG *MILD* ALGORI... Q4 SC Last administered on 01/21/17 05 :53; Admin Dose 1 UNIT; Start 01/05/17 at 13:00 Fentanyl 100 ml @ 2.5 mls/hr TITRATE IV Last administered on 01/07/17 02:25; Admin Dose 7.5 MLS/HR; Start 01/06/17 at 09:30 Norepinephrine/ Dextrose (Levophed/D5W) 500 ml @ 0 mls/hr TITRATE IV ; Start 04/12 at 13:30 Bumetanide 1 mg 1 mg BID IV Last administered on 01/13/17 21:06; Admin Dose 1 MG; Start 01/08/17 at 09:00; Status Future Hold Propofol (Diprivan) 100 ml @ 2.19 mls/hr Q12H IV Last administered on 07:04; Admin Dose 15.28 MLS/HR; Start 01/08/17 at 16:00 Miscellaneous Information (*Order Clarification Bulletin) FULVESTRANT 250 MG/5 ML SYG: PLE... Q8H XX ; Start 01/26/17 at 09:00 Acetaminophen (Tylenol Tab) 650 mg Q6H PRN NGT PAIN AND OR ELEVATED TEMP; Start 01/17/17 at 22:30 Apixaban (Eliquis) 2.5 mg BID NGT Last administered on 01/18/17 08:20; Admin Dose 2.5 MG; Start 01/17/17 at 21:00; Status Future Hold Ascorbic Acid (Vitamin C) 500 mg BID NGT Last administered on 01/23/17 08:51; Admin Dose 500 MG; Start 01/17/17 at 21:00 Levothyroxine Sodium (Synthroid) 75 mcg DAILY@06 NGT Last administered on 06:17; Admin Dose 75 MCG; Start 01/18/17 at 06:00 Loratadine (Claritin) 10 mg DAILY NGT Last administered on 01/23/17 08:53; Admin Dose 10 MG; Start 01/18/17 at 09:00 Metoprolol Tartrate (Lopressor) 25 mg BID NGT Last administered on 01/23/17 08 :52; Admin Dose 25 MG; Start 01/17/17 at 21:00 Mirtazapine (Remeron) 15 mg HS NGT Last administered on 01/22/17 21:12; Admin Dose 15 MG; Start 01/17/17 at 21:00 Oxcarbazepine (Trileptal) 600 mg BID NGT Last administered on 01/23/17 08:51; Admin Dose 600 MG; Start 01/17/17 at 21:00 Senna (Senokot) 1 tab HS NGT Last administered on 01/22/17 21:12; Admin Dose 1 TAB; Start 01/17/17 at 21:00 Sertraline HCl (Zoloft) 75 mg DAILY NGT Last administered on 01/23/17 08:52; Admin Dose 75 MG; Start 01/18/17 at 09:00 Sildenafil Citrate (Revatio) 20 mg TID NGT Last administered on 01/23/17 13:25 ; Admin Dose 20 MG; Start 01/17/17 at 21:00 Tacrolimus (Prograf) 2 mg QPM NGT Last administered on 01/22/17 21:11; Admin Dose 2 MG; Start 01/17/17 at 21:00 Docusate Sodium (Colace Liquid Cup) 100 mg BID NGT Last administered on 08:51; Admin Dose 100 MG; Start 01/17/17 at 21:00 Voriconazole (Vfend) 200 mg BID PO Last administered on 01/23/17 08:52; Admin Dose 200 MG; Start 01/19/17 at 21:00 Famotidine (Pepcid) 20 mg DAILY NGT Last administered on 01/23/17 08:52; Admin Dose 20 MG; Start 01/20/17 at 09:00 Lorazepam (Ativan) 1 mg Q6H PRN IV anxiety Last administered on 01/23/17 17:49 ; Admin Dose 1 MG; Start 01/22/17 at 09:00 MEOM WILHELM MD Jan 23, 2017 20:28
--- NOTE | 2017-01-23 20:35 | OPR ---
DATE OF OPERATION: 01/23/2017 PREOPERATIVE DIAGNOSIS: Renal failure. POSTOPERATIVE DIAGNOSIS: Renal failure. OPERATIVE PROCEDURE: Right internal jugular vein dialysis catheter placement. SURGEON: Jaswinder Banks MD ANESTHESIA: Local. Risks, benefits, complications and alternative therapies explained to patient's family, consent obtained. OPERATIVE TECHNIQUE: Patient was placed supine position, and prepped and draped in usual sterile fashion. Then, 1 percent lidocaine was used throughout the operation for local anesthesia. Access was gained in the right internal jugular vein. Guidewire was advanced without any difficulty. Subcutaneous tissue was dilated. A 16 cm dialysis catheter advanced over guidewire, secured to skin using silk sutures. Both ports of the catheter were aspirated and injected using saline solution. Patient tolerated the procedure well. Dictated By: Jaswinder Banks MD /[email or web address]/[email or web address] /Document#: [id number]
[2017-01-23] MEDS: SENNA TAB NGT SCH (20:50)
[2017-01-23] MEDS: MIRTAZAPINE 15 MG TAB NGT SCH (20:51)
[2017-01-24] VITALS (43 sets, daily range): BP systolic 71–157; BP diastolic 28–84; PULSE 75–117; RESP 9–33
[2017-01-24] MEDS: INSULIN ASPART [NOVOLOG] 3 ML PEN SC SCH ×6 (01:17→20:39)
[2017-01-24] MEDS: IPRATROPIUM (HFA) 12.9 GM INHALER INH SCH ×4 (01:30→19:12)
[2017-01-24] MEDS: ALBUTEROL 18 GM INHALER INH SCH ×4 (01:30→19:12)
[2017-01-24] MEDS: PROPOFOL 100 ML IV SCH ×2 (04:00→13:46)
[2017-01-24 05:11] LABS: ABNORMAL IP MESSAGE 1; BASOPHILS % 0.1 % (0.0-2.0); EOSINOPHILS # 0.2 10^3/ul (0.0-0.5); EOSINOPHILS % 1.1 % (0.0-7.0); HEMOGLOBIN 10.6 g/dl (12.0-16.0); LYMPHOCYTES # 0.5 10^3/ul (0.8-2.9); MEAN CORPUSCULAR HEMOGLOBIN 29.7 pg (29.0-33.0); MEAN CORPUSCULAR HGB CONC 32.1 g/dl (32.0-37.0); MEAN CORPUSCULAR VOLUME 92.4 fl (82.0-101.0); MEAN PLATELET VOLUME 10.3 fl (7.4-10.4); MONOCYTE # 0.8 10^3/ul (0.3-0.9); MONOCYTES % 5.1 % (0.0-11.0); NEUTROPHIL # 14.1 10^3/ul (1.6-7.5); NEUTROPHILS % 89.5 % (39.0-77.0); PLATELET COUNT 260 10^3/UL (140-415); RED BLOOD COUNT 3.57 10^6/ul (4.20-5.40); RED CELL DISTRIBUTION WIDTH 15.7 % (11.5-14.5); WHITE BLOOD COUNT 15.8 10^3/ul (4.8-10.8)
[2017-01-24 05:35] LABS: POSITIVE DIFF @See below
[2017-01-24 05:39] LABS: CALCIUM 9.1 mg/dl (8.4-10.2); CREATININE 2.67 mg/dl (0.44-1.00); MAGNESIUM 2.6 mg/dl (1.7-2.5); POTASSIUM 4.3 mmol/L (3.5-5.1)
[2017-01-24] MEDS: LEVOTHYROXINE 75 MCG TAB NGT SCH (06:01)
--- NOTE | 2017-01-24 08:46 | RADRPT ---
PROCEDURE: XR Chest. CLINICAL INDICATION: Shortness of breath. TECHNIQUE: Single frontal view. COMPARISON: 01/21/2017. FINDINGS: The endotracheal tube remains in satisfactory position. There is a new right internal jugular vein t emporary dialysis catheter in satisfactory position. The heart is enlarged. Pulmonary edema is unchanged. Surgical clips bilaterally in the axilla and le ft side of the chest are unchanged. There are small bilateral pleural effusions, unchanged. There is no pneumothorax. IMPRESSION: 1. New temporary dialysis catheter. 2. No pneumothorax. 3. No other change from 01/21/2017. RPTAT: QQ .Jarvis Block MD, MD Date Time Electronically viewed and signed by .Jarvis Block MD, MD on 01/24/2017 08:45 .R/
[2017-01-24] MEDS: INSULIN GLARGINE [LANtus] 3 ML PEN SC SCH (08:48)
[2017-01-24] MEDS: BALSAM PERU/CASTOR OIL 60 GM TUBE TOP SCH (09:00)
[2017-01-24] MEDS: BISACODYL 10 MG SUPP PR SCH (09:00)
[2017-01-24] MEDS: FLUTICASONE 0.05% 16 GM NAS SPRAY NASAL SCH (09:05)
[2017-01-24] MEDS: predniSONE 1 MG TAB PO SCH (09:06)
[2017-01-24] MEDS: FAMOTIDINE 20 MG TAB NGT SCH (09:06)
[2017-01-24] MEDS: TACROLIMUS 0.5 MG CAP NGT SCH (09:06)
[2017-01-24] MEDS: predniSONE 5 MG TAB PO SCH (09:06)
[2017-01-24] MEDS: SERTRALINE 50 MG TAB NGT SCH (09:07)
[2017-01-24] MEDS: LORATADINE 10 MG TAB NGT SCH (09:07)
[2017-01-24] MEDS: ASCORBIC ACID 500 MG TAB NGT SCH ×2 (09:07→20:27)
[2017-01-24] MEDS: OXCARBAZEPINE 300 MG TAB NGT SCH ×2 (09:07→20:27)
[2017-01-24] MEDS: METOPROLOL 25 MG TAB NGT SCH ×2 (09:07→20:27)
[2017-01-24] MEDS: VORICONAZOLE 200 MG TAB PO SCH ×2 (09:07→20:26)
--- NOTE | 2017-01-24 09:07 | CONS ---
Date/Time of Note Date/Time of Note DATE: 01/24/17 TIME: 09:05 Consult Date/Type/Reason Admit Date/Time Jan 05, 2017 at 00:15 Initial Consult Date 01/05/17 Type of Consultation: nephrology Ordering Provider: SUSAN SIMENTAL pt. seen and examined s/p hd yesterday bp ok. d/w rn s/p new ij dialysis line planned trach thursday. Objective Vital Signs Date Time Temp Pulse Resp B/P Pulse Ox O2 Delivery O2 Flow Rate FiO2 01/24/17 08:30 95 14 92/42 100 Mechanical Ventilator 01/24/17 08:00 30 01/24/17 08:00 98.6 Intake and Output 01/23/17 01/23/17 01/24/17 15:00 23:00 07:00 Intake Total 300 ml 610 ml 280 ml Output Total 3300 ml 5 ml 10 ml Balance -3000 ml 605 ml 270 ml Exam HEENT: Head is normocephalic. NECK: Supple. HEART: Regular rate. LUNGS: Diminished breath sounds at the base. ABDOMEN: Soft, nontender to palpation. No rebound or guarding. EXTREMITIES: Negative for clubbing, cyanosis. No edema. DERMATOLOGIC: Clean. No rashes. MUSCULOSKELETAL: No joint effusion. NEUROLOGIC: Unchanged exam. Results/Medications Result Diagram: 01/24/17 0436 01/24/17 0436 Results 24 hrs Laboratory Tests Test 01/23/17 13:21 01/23/17 18:13 01/23/17 20:59 01/23/17 21:31 Bedside Glucose 132 72 68 L 94 Test 01/23/17 21:55 01/24/17 01:15 01/24/17 04:36 01/24/17 05:00 Bedside Glucose 126 144 167 White Blood Count 15.8 H Red Blood Count 3.57 L Hemoglobin 10.6 L Hematocrit 33.0 L Mean Corpuscular Volume 92.4 Mean Corpuscular Hemoglobin 29.7 Mean Corpuscular Hemoglobin Concent 32.1 Red Cell Distribution Width 15.7 H Platelet Count 260 Mean Platelet Volume 10.3 Neutrophils % 89.5 H Lymphocytes % 3.0 L Monocytes % 5.1 Eosinophils % 1.1 Basophils % 0.1 Nucleated Red Blood Cells % 0.0 Neutrophils # 14.1 H Lymphocytes # 0.5 L Monocytes # 0.8 Eosinophils # 0.2 Basophils # 0.0 Nucleated Red Blood Cells # 0.0 Sodium Level 133 L Potassium Level 4.3 Chloride Level 99 Carbon Dioxide Level 25 Anion Gap 13 Blood Urea Nitrogen 53 H Creatinine 2.67 H Glucose Level 151 # Calcium Level 9.1 Phosphorus Level 4.0 Magnesium Level 2.6 H Test 01/24/17 08:46 Bedside Glucose 206 Medications Current Medications Naloxone HCl (Narcan) 0.4 mg Q4 PRN IV SEDATION; Start 01/05/17 at 01:30 Bisacodyl (Dulcolax Supp) 10 mg DAILY [place] Last administered on 01/23/17 08:51; Admin Dose 10 MG; Start 01/06/17 at 09:00 Budesonide (Pulmicort (Neb)) 0.25 mg BID NEB Last administered on 01/23/17 21: 13; Admin Dose 0.25 MG; Start 01/05/17 at 10:30 Fluticasone Propionate (Flonase 0.05% Nasal) 1 spray DAILY NASAL Last administered on 01/23/17 08:53; Admin Dose 1 SPRAY; Start 01/05/17 at 11:00 Fulvestrant (Faslodex) 500 mg Q28D IM ; Start 01/29/17 at 09:00 Insulin Glargine (Lantus) 18 unit DAILY SC Last administered on 01/24/17 08:48 ; Admin Dose 18 UNIT; Start 01/05/17 at 10:30 Magnesium Hydroxide (Milk Of Mag) 30 ml BID PRN PO CONSTIPATION Last administered on 01/16/17 09:09; Admin Dose 30 ML; Start 01/05/17 at 10:30 Nitroglycerin (Nitroglycerin 2% Oint) 0.5 inch Q6 PRN TD CHEST PAIN; Start 03/13 at 10:30 Ondansetron HCl (Zofran Inj) 4 mg Q6H PRN IV NAUSEA Last administered on 17:49; Admin Dose 4 MG; Start 01/05/17 at 10:30 Prednisone (Prednisone) 5 mg DAILY PO Last administered on 01/23/17 08:51; Admin Dose 5 MG; Start 01/05/17 at 12:00 Prednisone (Prednisone) 3 mg DAILY PO Last administered on 01/23/17 08:52; Admin Dose 3 MG; Start 01/05/17 at 12:00 Miscellaneous Information 1 ea NOTE XX ; Start 01/05/17 at 11:00 Glucose (Glutose) 15 gm Q15M PRN PO DECREASED GLUCOSE; Start 01/05/17 at 11:00 Glucose (Glutose) 22.5 gm Q15M PRN PO DECREASED GLUCOSE; Start 01/05/17 at 11: 00 Dextrose (D50w Syringe) 25 ml Q15M PRN IV DECREASED GLUCOSE Last administered on 01/23/17 03:45; Admin Dose 25 ML; Start 01/05/17 at 11:00 Dextrose (D50w Syringe) 50 ml Q15M PRN IV DECREASED GLUCOSE Last administered on 01/08/17 21:33; Admin Dose 50 ML; Start 01/05/17 at 11:00 Glucagon (Glucagen) 1 mg Q15M PRN IM DECREASED GLUCOSE Last administered on 21:08; Admin Dose 1 MG; Start 01/05/17 at 11:00 Glucose (Glutose) 15 gm Q15M PRN BUCCAL DECREASED GLUCOSE Last administered on 01/23/17 21:36; Admin Dose 15 GM; Start 01/05/17 at 11:00 Insulin Aspart NOVOLOG *MILD* ALGORI... Q4 SC Last administered on 01/24/17 08 :50; Admin Dose 2 UNIT; Start 01/05/17 at 13:00 Fentanyl 100 ml @ 2.5 mls/hr TITRATE IV Last administered on 01/07/17 02:25; Admin Dose 7.5 MLS/HR; Start 01/06/17 at 09:30 Norepinephrine/ Dextrose (Levophed/D5W) 500 ml @ 0 mls/hr TITRATE IV ; Start 04/12 at 13:30 Bumetanide 1 mg 1 mg BID IV Last administered on 01/13/17 21:06; Admin Dose 1 MG; Start 01/08/17 at 09:00; Status Future Hold Propofol (Diprivan) 100 ml @ 2.19 mls/hr Q12H IV Last administered on 07:04; Admin Dose 15.28 MLS/HR; Start 01/08/17 at 16:00 Miscellaneous Information (*Order Clarification Bulletin) FULVESTRANT 250 MG/5 ML SYG: PLE... Q8H XX ; Start 01/26/17 at 09:00 Acetaminophen (Tylenol Tab) 650 mg Q6H PRN NGT PAIN AND OR ELEVATED TEMP; Start 01/17/17 at 22:30 Apixaban (Eliquis) 2.5 mg BID NGT Last administered on 01/18/17 08:20; Admin Dose 2.5 MG; Start 01/17/17 at 21:00; Status Future Hold Ascorbic Acid (Vitamin C) 500 mg BID NGT Last administered on 01/23/17 20:52; Admin Dose 500 MG; Start 01/17/17 at 21:00 Levothyroxine Sodium (Synthroid) 75 mcg DAILY@06 NGT Last administered on 06:01; Admin Dose 75 MCG; Start 01/18/17 at 06:00 Loratadine (Claritin) 10 mg DAILY NGT Last administered on 01/23/17 08:53; Admin Dose 10 MG; Start 01/18/17 at 09:00 Metoprolol Tartrate (Lopressor) 25 mg BID NGT Last administered on 01/23/17 20 :51; Admin Dose 25 MG; Start 01/17/17 at 21:00 Mirtazapine (Remeron) 15 mg HS NGT Last administered on 01/23/17 20:51; Admin Dose 15 MG; Start 01/17/17 at 21:00 Oxcarbazepine (Trileptal) 600 mg BID NGT Last administered on 01/23/17 20:51; Admin Dose 600 MG; Start 01/17/17 at 21:00 Senna (Senokot) 1 tab HS NGT Last administered on 01/23/17 20:50; Admin Dose 1 TAB; Start 01/17/17 at 21:00 Sertraline HCl (Zoloft) 75 mg DAILY NGT Last administered on 01/23/17 08:52; Admin Dose 75 MG; Start 01/18/17 at 09:00 Sildenafil Citrate (Revatio) 20 mg TID NGT Last administered on 01/23/17 20:51 ; Admin Dose 20 MG; Start 01/17/17 at 21:00 Tacrolimus (Prograf) 2 mg QPM NGT Last administered on 9/29/17at 20:50; Admin Dose 2 MG; Start 01/17/17 at 21:00 Docusate Sodium (Colace Liquid Cup) 100 mg BID NGT Last administered on 20:50; Admin Dose 100 MG; Start 01/17/17 at 21:00 Voriconazole (Vfend) 200 mg BID PO Last administered on 01/23/17 20:51; Admin Dose 200 MG; Start 01/19/17 at 21:00 Famotidine (Pepcid) 20 mg DAILY NGT Last administered on 01/23/17 08:52; Admin Dose 20 MG; Start 01/20/17 at 09:00 Lorazepam (Ativan) 1 mg Q6H PRN IV anxiety Last administered on 01/23/17 17:49 ; Admin Dose 1 MG; Start 01/22/17 at 09:00 Assessment/Plan Chief Complaint/Hosp Course 1. 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 Etiology secondary to acute tubular necrosis. -The patient is currently dialysis dependent. - No signs of recovery. Anticipate -next hd tomorrow for volume removal. 2. Hyponatremia. Continue hemodialysis and 140 sodium bath. 3. Paroxysmal atrial fibrillation. Currently in sinus rhythm. 4. Sepsis status post shock secondary to pneumonia, fungal urinary tract infection. Continue antifungal therapy. 5. History of end-stage renal disease. Status post renal transplant with chronic allograft failure. The patient is currently in acute kidney injury as stated above. Continue current medical management. Continue immunosuppressive regimen. 6. Hypothyroidism. Continue Synthroid. 7. Anemia. Monitor H and H levels. 8. Diabetes. Continue current insulin regimen. 9. Pulmonary hypertension. Continue medical management. 10. Dysphagia. Continue tube feeding. 11. History of breast cancer. Follow up with Hematology. 12. Gastrointestinal and deep venous thrombosis prophylaxis. 13. Bilateral pleural effusion. Consider thoracentesis. Problems: LELO RICHARDSON MD Jan 24, 2017 09:07
[2017-01-24] MEDS: DOCUSATE SODIUM 10 MG/ML (10ML CUP) NGT SCH ×2 (09:08→20:26)
[2017-01-24] MEDS: SILDENAFIL 20 MG TAB NGT SCH ×3 (09:11→20:27)
[2017-01-24] MEDS: BUDESONIDE (NEB) 0.25 MG/2 ML AMP NEB SCH ×2 (10:05→21:09)
--- NOTE | 2017-01-24 10:05 | CONS ---
Date/Time of Note Date/Time of Note DATE: 01/24/17 TIME: 10:01 Assessment/Plan Assessment/Plan Chief Complaint/Hosp Course ID PROGRESS NOTE TOTAL ABX DAY # CURRENT ABX=> VFend 24H INTERVAL SUMMARY * Orally intubated/Vented,, opens eyes, generalized weakness noted * New HD catheter placed 01/23 * 01/18/17 Urine-> (+) Yeast EXAM GENERAL: 71 yo F, resting comfortably on the Vent orally intubated HEENT: ETT-> Secure to vetn NECK: supple, R-IJ HD catheter CHEST: Course, Afib on tele monitor ABDOMEN: Soft, NT EXTREMITIES: WArm, slight edema SKIN: No diaphoresis, no rash ID ASSESSMENT: 72 yo F admit [facility] ICU with: 1. Sepsis status post-shock. * 01/05 BCx (-) * 01/05 Urine Cx(-) 2. Acute respiratory failure. 3. Healthcare-associated pneumonia possibly aspirated. 4. Pleural effusions -> s/p Thora 01/10 5. History of metastatic breast cancer. 6. History of kidney transplant, on immunosuppressive therapy. 7. Diabetes. 8. Hypertension. (-)MRSA Nares INVASIVES: PICC, NGT, ETT, R-IJ Bandar (01/23) ABX ALLERGY: Tetracycline TOTAL ABX DAY # CURRENT ABX=> VFend ID PLAN 1. Continue current ABX, weaning per pulmonary . Problems: Consultation Date/Type/Reason Admit Date/Time Jan 05, 2017 at 00:15 Initial Consult Date 01/05/17 Type of Consultation: ID Referring Provider: SUSAN SIMENTAL DO Exam/Review of Systems Vital Signs Vitals Vital Signs Date Time Temp Pulse Resp B/P Pulse Ox O2 Delivery O2 Flow Rate FiO2 01/24/17 08:30 95 14 92/42 100 Mechanical Ventilator 01/24/17 08:00 30 01/24/17 08:00 98.6 Intake and Output 01/23/17 01/23/17 01/24/17 15:00 23:00 07:00 Intake Total 300 ml 610 ml 280 ml Output Total 3300 ml 5 ml 10 ml Balance -3000 ml 605 ml 270 ml Results Result Diagram: 01/24/17 0436 01/24/17 0436 Results 24 hrs Laboratory Tests Test 01/23/17 13:21 01/23/17 18:13 01/23/17 20:59 01/23/17 21:31 Bedside Glucose 132 72 68 L 94 Test 01/23/17 21:55 01/24/17 01:15 01/24/17 04:36 01/24/17 05:00 Bedside Glucose 126 144 167 White Blood Count 15.8 H Red Blood Count 3.57 L Hemoglobin 10.6 L Hematocrit 33.0 L Mean Corpuscular Volume 92.4 Mean Corpuscular Hemoglobin 29.7 Mean Corpuscular Hemoglobin Concent 32.1 Red Cell Distribution Width 15.7 H Platelet Count 260 Mean Platelet Volume 10.3 Neutrophils % 89.5 H Lymphocytes % 3.0 L Monocytes % 5.1 Eosinophils % 1.1 Basophils % 0.1 Nucleated Red Blood Cells % 0.0 Neutrophils # 14.1 H Lymphocytes # 0.5 L Monocytes # 0.8 Eosinophils # 0.2 Basophils # 0.0 Nucleated Red Blood Cells # 0.0 Sodium Level 133 L Potassium Level 4.3 Chloride Level 99 Carbon Dioxide Level 25 Anion Gap 13 Blood Urea Nitrogen 53 H Creatinine 2.67 H Glucose Level 151 # Calcium Level 9.1 Phosphorus Level 4.0 Magnesium Level 2.6 H Test 01/24/17 08:46 Bedside Glucose 206 Medications Medications Current Medications Naloxone HCl (Narcan) 0.4 mg Q4 PRN IV SEDATION; Start 01/05/17 at 01:30 Bisacodyl (Dulcolax Supp) 10 mg DAILY [place] Last administered on 01/23/17 08:51; Admin Dose 10 MG; Start 01/06/17 at 09:00 Budesonide (Pulmicort (Neb)) 0.25 mg BID NEB Last administered on 01/23/17 21: 13; Admin Dose 0.25 MG; Start 01/05/17 at 10:30 Fluticasone Propionate (Flonase 0.05% Nasal) 1 spray DAILY NASAL Last administered on 01/24/17 09:05; Admin Dose 1 SPRAY; Start 01/05/17 at 11:00 Fulvestrant (Faslodex) 500 mg Q28D IM ; Start 01/29/17 at 09:00 Insulin Glargine (Lantus) 18 unit DAILY SC Last administered on 01/24/17 08:48 ; Admin Dose 18 UNIT; Start 01/05/17 at 10:30 Magnesium Hydroxide (Milk Of Mag) 30 ml BID PRN PO CONSTIPATION Last administered on 01/16/17 09:09; Admin Dose 30 ML; Start 01/05/17 at 10:30 Nitroglycerin (Nitroglycerin 2% Oint) 0.5 inch Q6 PRN TD CHEST PAIN; Start 03/13 at 10:30 Ondansetron HCl (Zofran Inj) 4 mg Q6H PRN IV NAUSEA Last administered on 17:49; Admin Dose 4 MG; Start 01/05/17 at 10:30 Prednisone (Prednisone) 5 mg DAILY PO Last administered on 01/24/17 09:06; Admin Dose 5 MG; Start 01/05/17 at 12:00 Prednisone (Prednisone) 3 mg DAILY PO Last administered on 01/24/17 09:06; Admin Dose 3 MG; Start 01/05/17 at 12:00 Miscellaneous Information 1 ea NOTE XX ; Start 01/05/17 at 11:00 Glucose (Glutose) 15 gm Q15M PRN PO DECREASED GLUCOSE; Start 01/05/17 at 11:00 Glucose (Glutose) 22.5 gm Q15M PRN PO DECREASED GLUCOSE; Start 01/05/17 at 11: 00 Dextrose (D50w Syringe) 25 ml Q15M PRN IV DECREASED GLUCOSE Last administered on 01/23/17 03:45; Admin Dose 25 ML; Start 01/05/17 at 11:00 Dextrose (D50w Syringe) 50 ml Q15M PRN IV DECREASED GLUCOSE Last administered on 01/08/17 21:33; Admin Dose 50 ML; Start 01/05/17 at 11:00 Glucagon (Glucagen) 1 mg Q15M PRN IM DECREASED GLUCOSE Last administered on 21:08; Admin Dose 1 MG; Start 01/05/17 at 11:00 Glucose (Glutose) 15 gm Q15M PRN BUCCAL DECREASED GLUCOSE Last administered on 01/23/17 21:36; Admin Dose 15 GM; Start 01/05/17 at 11:00 Insulin Aspart NOVOLOG *MILD* ALGORI... Q4 SC Last administered on 01/24/17 08 :50; Admin Dose 2 UNIT; Start 01/05/17 at 13:00 Fentanyl 100 ml @ 2.5 mls/hr TITRATE IV Last administered on 01/07/17 02:25; Admin Dose 7.5 MLS/HR; Start 01/06/17 at 09:30 Norepinephrine/ Dextrose (Levophed/D5W) 500 ml @ 0 mls/hr TITRATE IV ; Start 04/12 at 13:30 Bumetanide 1 mg 1 mg BID IV Last administered on 01/13/17 21:06; Admin Dose 1 MG; Start 01/08/17 at 09:00; Status Future Hold Propofol (Diprivan) 100 ml @ 2.19 mls/hr Q12H IV Last administered on 07:04; Admin Dose 15.28 MLS/HR; Start 01/08/17 at 16:00 Miscellaneous Information (*Order Clarification Bulletin) FULVESTRANT 250 MG/5 ML SYG: PLE... Q8H XX ; Start 01/26/17 at 09:00 Acetaminophen (Tylenol Tab) 650 mg Q6H PRN NGT PAIN AND OR ELEVATED TEMP; Start 01/17/17 at 22:30 Apixaban (Eliquis) 2.5 mg BID NGT Last administered on 01/18/17 08:20; Admin Dose 2.5 MG; Start 01/17/17 at 21:00; Status Future Hold Ascorbic Acid (Vitamin C) 500 mg BID NGT Last administered on 01/24/17 09:07; Admin Dose 500 MG; Start 01/17/17 at 21:00 Levothyroxine Sodium (Synthroid) 75 mcg DAILY@06 NGT Last administered on 06:01; Admin Dose 75 MCG; Start 01/18/17 at 06:00 Loratadine (Claritin) 10 mg DAILY NGT Last administered on 01/24/17 09:07; Admin Dose 10 MG; Start 01/18/17 at 09:00 Metoprolol Tartrate (Lopressor) 25 mg BID NGT Last administered on 01/24/17 09 :07; Admin Dose 25 MG; Start 01/17/17 at 21:00 Mirtazapine (Remeron) 15 mg HS NGT Last administered on 01/23/17 20:51; Admin Dose 15 MG; Start 01/17/17 at 21:00 Oxcarbazepine (Trileptal) 600 mg BID NGT Last administered on 01/24/17 09:07; Admin Dose 600 MG; Start 01/17/17 at 21:00 Senna (Senokot) 1 tab HS NGT Last administered on 01/23/17 20:50; Admin Dose 1 TAB; Start 01/17/17 at 21:00 Sertraline HCl (Zoloft) 75 mg DAILY NGT Last administered on 01/24/17 09:07; Admin Dose 75 MG; Start 01/18/17 at 09:00 Sildenafil Citrate (Revatio) 20 mg TID NGT Last administered on 01/24/17 09:11 ; Admin Dose 20 MG; Start 01/17/17 at 21:00 Tacrolimus (Prograf) 2 mg QPM NGT Last administered on 01/23/17 20:50; Admin Dose 2 MG; Start 01/17/17 at 21:00 Docusate Sodium (Colace Liquid Cup) 100 mg BID NGT Last administered on 09:08; Admin Dose 100 MG; Start 01/17/17 at 21:00 Voriconazole (Vfend) 200 mg BID PO Last administered on 01/24/17 09:07; Admin Dose 200 MG; Start 01/19/17 at 21:00 Famotidine (Pepcid) 20 mg DAILY NGT Last administered on 01/24/17 09:06; Admin Dose 20 MG; Start 01/20/17 at 09:00 Lorazepam (Ativan) 1 mg Q6H PRN IV anxiety Last administered on 01/23/17 17:49 ; Admin Dose 1 MG; Start 01/22/17 at 09:00 NELSON BRAXTON NP Jan 24, 2017 10:05
--- NOTE | 2017-01-24 10:26 | PN ---
DATE: 01/23/2017 SUBJECTIVE DATA: No acute events overnight. Patient is awake, looks comfortable on vent. VITAL SIGNS: Afebrile Temperature 98, pulse 94, respirations 12, blood pressure 137/55, saturation 99 on vent. LABORATORY AND DIAGNOSTIC DATA: WBC 13.6, H and H 10 and 30.9, platelets 222,000, neutrophils 88, BUN 79, creatinine 3.57. ANTIMICROBIALS: Patient is on voriconazole. INDWELLINGS: Endotracheal tube, PEG, Dela Cruz catheter, right femoral Bandar with pigtail. PHYSICAL EXAMINATION: GENERAL: This is a chronically ill-appearing fragile elderly woman who is in no distress. HEENT: Head atraumatic, normocephalic. Sclerae anicteric. Buccal mucosa dry. NECK: Supple. CHEST: Rise symmetrical. Breath sounds diminished at the bases. HEART: S1, S2. ABDOMEN: Soft, bowel sounds present. EXTREMITIES: Without dependent trace edema. ASSESSMENT: 1. Resolving sepsis status post shock. 2. Recurrent urinary tract infection. 3. Acute respiratory failure, failed multiple weaning trials, pending tracheostomy. 4. Status post pneumonia. 5. Acute on chronic kidney disease, started on hemodialysis. 6. History of kidney transplant, on immunosuppressive therapy. 7. Anemia. PLAN: Patient remains stable. Continue present care. Continue voriconazole pending tracheostomy. Dictated By: Artis Castañeda NP /[email or web address]/[email or web address] /Document#: [id number]
--- NOTE | 2017-01-24 12:28 | CONS ---
Date/Time of Note Date/Time of Note DATE: 01/24/17 TIME: 12:25 Consult Date/Type/Reason Admit Date/Time Jan 05, 2017 at 00:15 Initial Consult Date 01/05/17 Type of Consultation: Pulm/CCM Ordering Provider: SUSAN SIMENTAL DO Subjective Awake and responsive on MV Objective Vital Signs Date Time Temp Pulse Resp B/P Pulse Ox O2 Delivery O2 Flow Rate FiO2 01/24/17 11:30 98 33 136/77 100 Mechanical Ventilator 01/24/17 10:55 30 01/24/17 08:00 98.6 Intake and Output 01/23/17 01/23/17 01/24/17 15:00 23:00 07:00 Intake Total 300 ml 610 ml 280 ml Output Total 3300 ml 5 ml 10 ml Balance -3000 ml 605 ml 270 ml Exam HEENT: Pupils equal, round, and reactive to light. CARDIAC: S1, S2, 1/6 systolic ejection murmur CHEST: Diminished air entry bilaterally. ABDOMEN: Mildly distended. Bowel sounds present no guarding or rebound EXTREMITIES: No cyanosis, clubbing edema +1 NEUROLOGIC: Generalized weakness Results/Medications Result Diagram: 01/24/17 0436 01/24/17 0436 Results 24 hrs Laboratory Tests Test 01/23/17 13:21 01/23/17 18:13 01/23/17 20:59 01/23/17 21:31 Bedside Glucose 132 72 68 L 94 Test 01/23/17 21:55 01/24/17 01:15 01/24/17 04:36 01/24/17 05:00 Bedside Glucose 126 144 167 White Blood Count 15.8 H Red Blood Count 3.57 L Hemoglobin 10.6 L Hematocrit 33.0 L Mean Corpuscular Volume 92.4 Mean Corpuscular Hemoglobin 29.7 Mean Corpuscular Hemoglobin Concent 32.1 Red Cell Distribution Width 15.7 H Platelet Count 260 Mean Platelet Volume 10.3 Neutrophils % 89.5 H Lymphocytes % 3.0 L Monocytes % 5.1 Eosinophils % 1.1 Basophils % 0.1 Nucleated Red Blood Cells % 0.0 Neutrophils # 14.1 H Lymphocytes # 0.5 L Monocytes # 0.8 Eosinophils # 0.2 Basophils # 0.0 Nucleated Red Blood Cells # 0.0 Sodium Level 133 L Potassium Level 4.3 Chloride Level 99 Carbon Dioxide Level 25 Anion Gap 13 Blood Urea Nitrogen 53 H Creatinine 2.67 H Glucose Level 151 # Calcium Level 9.1 Phosphorus Level 4.0 Magnesium Level 2.6 H Test 01/24/17 08:46 Bedside Glucose 206 Medications Current Medications Naloxone HCl (Narcan) 0.4 mg Q4 PRN IV SEDATION; Start 01/05/17 at 01:30 Bisacodyl (Dulcolax Supp) 10 mg DAILY [place] Last administered on 01/23/17 08:51; Admin Dose 10 MG; Start 01/06/17 at 09:00 Budesonide (Pulmicort (Neb)) 0.25 mg BID NEB Last administered on 01/24/17 10: 05; Admin Dose 0.25 MG; Start 01/05/17 at 10:30 Fluticasone Propionate (Flonase 0.05% Nasal) 1 spray DAILY NASAL Last administered on 01/24/17 09:05; Admin Dose 1 SPRAY; Start 01/05/17 at 11:00 Fulvestrant (Faslodex) 500 mg Q28D IM ; Start 01/29/17 at 09:00 Insulin Glargine (Lantus) 18 unit DAILY SC Last administered on 01/24/17 08:48 ; Admin Dose 18 UNIT; Start 01/05/17 at 10:30 Magnesium Hydroxide (Milk Of Mag) 30 ml BID PRN PO CONSTIPATION Last administered on 01/16/17 09:09; Admin Dose 30 ML; Start 01/05/17 at 10:30 Nitroglycerin (Nitroglycerin 2% Oint) 0.5 inch Q6 PRN TD CHEST PAIN; Start 03/13 at 10:30 Ondansetron HCl (Zofran Inj) 4 mg Q6H PRN IV NAUSEA Last administered on 17:49; Admin Dose 4 MG; Start 01/05/17 at 10:30 Prednisone (Prednisone) 5 mg DAILY PO Last administered on 01/24/17 09:06; Admin Dose 5 MG; Start 01/05/17 at 12:00 Prednisone (Prednisone) 3 mg DAILY PO Last administered on 01/24/17 09:06; Admin Dose 3 MG; Start 01/05/17 at 12:00 Miscellaneous Information 1 ea NOTE XX ; Start 01/05/17 at 11:00 Glucose (Glutose) 15 gm Q15M PRN PO DECREASED GLUCOSE; Start 01/05/17 at 11:00 Glucose (Glutose) 22.5 gm Q15M PRN PO DECREASED GLUCOSE; Start 01/05/17 at 11: 00 Dextrose (D50w Syringe) 25 ml Q15M PRN IV DECREASED GLUCOSE Last administered on 01/23/17 03:45; Admin Dose 25 ML; Start 01/05/17 at 11:00 Dextrose (D50w Syringe) 50 ml Q15M PRN IV DECREASED GLUCOSE Last administered on 01/08/17 21:33; Admin Dose 50 ML; Start 01/05/17 at 11:00 Glucagon (Glucagen) 1 mg Q15M PRN IM DECREASED GLUCOSE Last administered on 21:08; Admin Dose 1 MG; Start 01/05/17 at 11:00 Glucose (Glutose) 15 gm Q15M PRN BUCCAL DECREASED GLUCOSE Last administered on 01/23/17 21:36; Admin Dose 15 GM; Start 01/05/17 at 11:00 Insulin Aspart NOVOLOG *MILD* ALGORI... Q4 SC Last administered on 01/24/17 08 :50; Admin Dose 2 UNIT; Start 01/05/17 at 13:00 Fentanyl 100 ml @ 2.5 mls/hr TITRATE IV Last administered on 01/07/17 02:25; Admin Dose 7.5 MLS/HR; Start 01/06/17 at 09:30 Norepinephrine/ Dextrose (Levophed/D5W) 500 ml @ 0 mls/hr TITRATE IV ; Start 04/12 at 13:30 Bumetanide 1 mg 1 mg BID IV Last administered on 01/13/17 21:06; Admin Dose 1 MG; Start 01/08/17 at 09:00; Status Future Hold Propofol (Diprivan) 100 ml @ 2.19 mls/hr Q12H IV Last administered on 07:04; Admin Dose 15.28 MLS/HR; Start 01/08/17 at 16:00 Miscellaneous Information (*Order Clarification Bulletin) FULVESTRANT 250 MG/5 ML SYG: PLE... Q8H XX ; Start 01/26/17 at 09:00 Acetaminophen (Tylenol Tab) 650 mg Q6H PRN NGT PAIN AND OR ELEVATED TEMP; Start 01/17/17 at 22:30 Apixaban (Eliquis) 2.5 mg BID NGT Last administered on 01/18/17 08:20; Admin Dose 2.5 MG; Start 01/17/17 at 21:00; Status Future Hold Ascorbic Acid (Vitamin C) 500 mg BID NGT Last administered on 01/24/17 09:07; Admin Dose 500 MG; Start 01/17/17 at 21:00 Levothyroxine Sodium (Synthroid) 75 mcg DAILY@06 NGT Last administered on 06:01; Admin Dose 75 MCG; Start 01/18/17 at 06:00 Loratadine (Claritin) 10 mg DAILY NGT Last administered on 01/24/17 09:07; Admin Dose 10 MG; Start 01/18/17 at 09:00 Metoprolol Tartrate (Lopressor) 25 mg BID NGT Last administered on 01/24/17 09 :07; Admin Dose 25 MG; Start 01/17/17 at 21:00 Mirtazapine (Remeron) 15 mg HS NGT Last administered on 01/23/17 20:51; Admin Dose 15 MG; Start 01/17/17 at 21:00 Oxcarbazepine (Trileptal) 600 mg BID NGT Last administered on 01/24/17 09:07; Admin Dose 600 MG; Start 01/17/17 at 21:00 Senna (Senokot) 1 tab HS NGT Last administered on 01/23/17 20:50; Admin Dose 1 TAB; Start 01/17/17 at 21:00 Sertraline HCl (Zoloft) 75 mg DAILY NGT Last administered on 01/24/17 09:07; Admin Dose 75 MG; Start 01/18/17 at 09:00 Sildenafil Citrate (Revatio) 20 mg TID NGT Last administered on 01/24/17 09:11 ; Admin Dose 20 MG; Start 01/17/17 at 21:00 Tacrolimus (Prograf) 2 mg QPM NGT Last administered on 01/23/17 20:50; Admin Dose 2 MG; Start 01/17/17 at 21:00 Docusate Sodium (Colace Liquid Cup) 100 mg BID NGT Last administered on 09:08; Admin Dose 100 MG; Start 01/17/17 at 21:00 Voriconazole (Vfend) 200 mg BID PO Last administered on 01/24/17 09:07; Admin Dose 200 MG; Start 01/19/17 at 21:00 Famotidine (Pepcid) 20 mg DAILY NGT Last administered on 01/24/17 09:06; Admin Dose 20 MG; Start 01/20/17 at 09:00 Lorazepam (Ativan) 1 mg Q6H PRN IV anxiety Last administered on 01/23/17 17:49 ; Admin Dose 1 MG; Start 01/22/17 at 09:00 Assessment/Plan Additional Assessment/Plan IMP: 1. Hypoxemic respiratory failure/Vent dependence. Status post thoracentesis. Failed multiple CPAP weaning trials pending tracheostomy 2. Altered mental status secondary to opioids. Significant anxiety component. 3. History of renal transplant. Renal insufficiency. Hyponatremia. 4. Dysphagia now with G-tube 5. Persistent leukocytosis. RECS:: 1. Continue vent support, pending tracheostomy, 2. Decrease sedation as tolerated. 3. TF/Free H20 4. Am labs/CXR/ABG 5. DVT and GI prophylaxis. Critical care time 40 minutes. SRINIVAS NEGRO MD Jan 24, 2017 12:27
--- NOTE | 2017-01-24 14:20 | CONS ---
Date/Time of Note Date/Time of Note DATE: 01/24/17 TIME: 14:18 Assessment/Plan Assessment/Plan Additional Assessment/Plan Additional Assessment/Plan Additional Assessment/Plan 1. Respiratory failure. 2. Dysphagia. 3. Sepsis. 4. Renal failure. 5. Diabetes mellitus. 6. Breast cancer with metastasis. 7. Chronic obstructive pulmonary disease. 8. Pulmonary hypertension. 9. Atrial fibrillation. 10. Deconditioning 11. Status post renal transplant on immunosuppressive medication 12. Persistent leukocytosis 13. Respiratory failure reintubated 14. Status post PEG 15. Anemia, no evidence of active bleeding Plan Continue feeding Continue present care Consultation Date/Type/Reason Admit Date/Time Jan 05, 2017 at 00:15 Initial Consult Date 01/05/17 Type of Consultation: Pulm/CCM Referring Provider: SUSAN SIMENTAL DO 24 HR Interval Summary Subjective hx not possible: pt non-verbal Exam/Review of Systems Vital Signs Vitals Vital Signs Date Time Temp Pulse Resp B/P Pulse Ox O2 Delivery O2 Flow Rate FiO2 01/24/17 13:30 90 15 117/49 100 Mechanical Ventilator 01/24/17 12:00 30 01/24/17 12:00 98.3 Intake and Output 01/23/17 01/23/17 01/24/17 14:59 22:59 06:59 Intake Total 300 ml 570 ml 320 ml Output Total 3300 ml 5 ml 10 ml Balance -3000 ml 565 ml 310 ml Exam Respiratory: other (Patient is on vent) Cardiovascular: nl pulses, regular rate and rhythm Gastrointestinal: nl liver, spleen, non-tender, soft Extremities: normal pulses Neurological: lethargic Results Result Diagram: 01/24/17 0436 01/24/17 0436 Results 24 hrs Laboratory Tests Test 01/23/17 18:13 01/23/17 20:59 01/23/17 21:31 01/23/17 21:55 Bedside Glucose 72 68 L 94 126 Test 01/24/17 01:15 01/24/17 04:36 01/24/17 05:00 01/24/17 08:46 Bedside Glucose 144 167 206 White Blood Count 15.8 H Red Blood Count 3.57 L Hemoglobin 10.6 L Hematocrit 33.0 L Mean Corpuscular Volume 92.4 Mean Corpuscular Hemoglobin 29.7 Mean Corpuscular Hemoglobin Concent 32.1 Red Cell Distribution Width 15.7 H Platelet Count 260 Mean Platelet Volume 10.3 Neutrophils % 89.5 H Lymphocytes % 3.0 L Monocytes % 5.1 Eosinophils % 1.1 Basophils % 0.1 Nucleated Red Blood Cells % 0.0 Neutrophils # 14.1 H Lymphocytes # 0.5 L Monocytes # 0.8 Eosinophils # 0.2 Basophils # 0.0 Nucleated Red Blood Cells # 0.0 Sodium Level 133 L Potassium Level 4.3 Chloride Level 99 Carbon Dioxide Level 25 Anion Gap 13 Blood Urea Nitrogen 53 H Creatinine 2.67 H Glucose Level 151 # Calcium Level 9.1 Phosphorus Level 4.0 Magnesium Level 2.6 H Test 01/24/17 13:44 Bedside Glucose 161 Medications Medications Current Medications Naloxone HCl (Narcan) 0.4 mg Q4 PRN IV SEDATION; Start 01/05/17 at 01:30 Bisacodyl (Dulcolax Supp) 10 mg DAILY [place] Last administered on 01/23/17 08:51; Admin Dose 10 MG; Start 01/06/17 at 09:00 Budesonide (Pulmicort (Neb)) 0.25 mg BID NEB Last administered on 01/24/17 10: 05; Admin Dose 0.25 MG; Start 01/05/17 at 10:30 Fluticasone Propionate (Flonase 0.05% Nasal) 1 spray DAILY NASAL Last administered on 01/24/17 09:05; Admin Dose 1 SPRAY; Start 01/05/17 at 11:00 Fulvestrant (Faslodex) 500 mg Q28D IM ; Start 01/29/17 at 09:00 Insulin Glargine (Lantus) 18 unit DAILY [place] Last administered on 01/24/17 08:48 ; Admin Dose 18 UNIT; Start 01/05/17 at 10:30 Magnesium Hydroxide (Milk Of Mag) 30 ml BID PRN PO CONSTIPATION Last administered on 01/16/17 09:09; Admin Dose 30 ML; Start 01/05/17 at 10:30 Nitroglycerin (Nitroglycerin 2% Oint) 0.5 inch Q6 PRN TD CHEST PAIN; Start 03/13 at 10:30 Ondansetron HCl (Zofran Inj) 4 mg Q6H PRN IV NAUSEA Last administered on 17:49; Admin Dose 4 MG; Start 01/05/17 at 10:30 Prednisone (Prednisone) 5 mg DAILY PO Last administered on 01/24/17 09:06; Admin Dose 5 MG; Start 01/05/17 at 12:00 Prednisone (Prednisone) 3 mg DAILY PO Last administered on 01/24/17 09:06; Admin Dose 3 MG; Start 01/05/17 at 12:00 Miscellaneous Information 1 ea NOTE XX ; Start 01/05/17 at 11:00 Glucose (Glutose) 15 gm Q15M PRN PO DECREASED GLUCOSE; Start 01/05/17 at 11:00 Glucose (Glutose) 22.5 gm Q15M PRN PO DECREASED GLUCOSE; Start 01/05/17 at 11: 00 Dextrose (D50w Syringe) 25 ml Q15M PRN IV DECREASED GLUCOSE Last administered on 01/23/17 03:45; Admin Dose 25 ML; Start 01/05/17 at 11:00 Dextrose (D50w Syringe) 50 ml Q15M PRN IV DECREASED GLUCOSE Last administered on 01/08/17 21:33; Admin Dose 50 ML; Start 01/05/17 at 11:00 Glucagon (Glucagen) 1 mg Q15M PRN IM DECREASED GLUCOSE Last administered on 21:08; Admin Dose 1 MG; Start 01/05/17 at 11:00 Glucose (Glutose) 15 gm Q15M PRN BUCCAL DECREASED GLUCOSE Last administered on 01/23/17 21:36; Admin Dose 15 GM; Start 01/05/17 at 11:00 Insulin Aspart NOVOLOG *MILD* ALGORI... Q4 [place] Last administered on 01/24/17 13 :45; Admin Dose 1 UNIT; Start 01/05/17 at 13:00 Fentanyl 100 ml @ 2.5 mls/hr TITRATE IV Last administered on 01/07/17 02:25; Admin Dose 7.5 MLS/HR; Start 01/06/17 at 09:30 Norepinephrine/ Dextrose (Levophed/D5W) 500 ml @ 0 mls/hr TITRATE IV ; Start 04/12 at 13:30 Bumetanide 1 mg 1 mg BID IV Last administered on 01/13/17 21:06; Admin Dose 1 MG; Start 01/08/17 at 09:00; Status Future Hold Propofol (Diprivan) 100 ml @ 2.19 mls/hr Q12H IV Last administered on 07:04; Admin Dose 15.28 MLS/HR; Start 01/08/17 at 16:00 Miscellaneous Information (*Order Clarification Bulletin) FULVESTRANT 250 MG/5 ML SYG: PLE... Q8H XX ; Start 01/26/17 at 09:00 Acetaminophen (Tylenol Tab) 650 mg Q6H PRN NGT PAIN AND OR ELEVATED TEMP; Start 01/17/17 at 22:30 Apixaban (Eliquis) 2.5 mg BID NGT Last administered on 01/18/17 08:20; Admin Dose 2.5 MG; Start 01/17/17 at 21:00; Status Future Hold Ascorbic Acid (Vitamin C) 500 mg BID NGT Last administered on 01/24/17 09:07; Admin Dose 500 MG; Start 01/17/17 at 21:00 Levothyroxine Sodium (Synthroid) 75 mcg DAILY@06 NGT Last administered on 06:01; Admin Dose 75 MCG; Start 01/18/17 at 06:00 Loratadine (Claritin) 10 mg DAILY NGT Last administered on 01/24/17 09:07; Admin Dose 10 MG; Start 01/18/17 at 09:00 Metoprolol Tartrate (Lopressor) 25 mg BID NGT Last administered on 01/24/17 09 :07; Admin Dose 25 MG; Start 01/17/17 at 21:00 Mirtazapine (Remeron) 15 mg HS NGT Last administered on 01/23/17 20:51; Admin Dose 15 MG; Start 01/17/17 at 21:00 Oxcarbazepine (Trileptal) 600 mg BID NGT Last administered on 01/24/17 09:07; Admin Dose 600 MG; Start 01/17/17 at 21:00 Senna (Senokot) 1 tab HS NGT Last administered on 01/23/17 20:50; Admin Dose 1 TAB; Start 01/17/17 at 21:00 Sertraline HCl (Zoloft) 75 mg DAILY NGT Last administered on 01/24/17 09:07; Admin Dose 75 MG; Start 01/18/17 at 09:00 Sildenafil Citrate (Revatio) 20 mg TID NGT Last administered on 01/24/17 09:11 ; Admin Dose 20 MG; Start 01/17/17 at 21:00 Tacrolimus (Prograf) 2 mg QPM NGT Last administered on 01/23/17 20:50; Admin Dose 2 MG; Start 01/17/17 at 21:00 Docusate Sodium (Colace Liquid Cup) 100 mg BID NGT Last administered on 09:08; Admin Dose 100 MG; Start 01/17/17 at 21:00 Voriconazole (Vfend) 200 mg BID PO Last administered on 01/24/17 09:07; Admin Dose 200 MG; Start 01/19/17 at 21:00 Famotidine (Pepcid) 20 mg DAILY NGT Last administered on 01/24/17 09:06; Admin Dose 20 MG; Start 01/20/17 at 09:00 Lorazepam (Ativan) 1 mg Q6H PRN IV anxiety Last administered on 01/23/17 17:49 ; Admin Dose 1 MG; Start 01/22/17 at 09:00 MEMO WILHELM MD Jan 24, 2017 14:20
--- NOTE | 2017-01-24 16:56 | CONS ---
Date/Time of Note Date/Time of Note DATE: 01/24/17 TIME: 16:55 Assessment/Plan Assessment/Plan Chief Complaint/Hosp Course History of breast cancer with lung metastasis. The patient is on medical management. on Faslodex as outpt Anemia. Monitor hemoglobin and hematocrit levels. 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 Congestive heart failure exacerbation. Hypothyroidism. Diabetes. Continue current insulin regimen. Pulmonary hypertension. Depression. Problems: Consultation Date/Type/Reason Admit Date/Time Jan 05, 2017 at 00:15 Initial Consult Date 01/05/17 Type of Consultation: hemeon Referring Provider: SUSAN SIMENTAL DO 24 HR Interval Summary Free Text/Dictation all noted NAD Exam/Review of Systems Vital Signs Vitals Vital Signs Date Time Temp Pulse Resp B/P Pulse Ox O2 Delivery O2 Flow Rate FiO2 01/24/17 16:00 105 01/24/17 16:00 98.3 15 130/63 Mechanical Ventilator 01/24/17 15:30 100 01/24/17 12:00 30 Intake and Output 01/23/17 01/23/17 01/24/17 15:00 23:00 07:00 Intake Total 300 ml 610 ml 320 ml Output Total 3300 ml 5 ml 10 ml Balance -3000 ml 605 ml 310 ml Exam HEENT: Head is normocephalic. NECK: Supple. HEART: Regular rate. LUNGS: Show diminished breath sounds base. Positive rhonchi. ABDOMEN: Soft, nontender to palpation. No rebound or guarding. EXTREMITIES: Negative for clubbing, cyanosis. No edema. DERMATOLOGIC: Clean. No rashes. MUSCULOSKELETAL: No joint effusion. NEUROLOGIC: No change in exam. Results Result Diagram: 01/24/17 0436 01/24/17 0436 Results 24 hrs Laboratory Tests Test 01/23/17 18:13 01/23/17 20:59 01/23/17 21:31 01/23/17 21:55 Bedside Glucose 72 68 L 94 126 Test 01/24/17 01:15 01/24/17 04:36 01/24/17 05:00 01/24/17 08:46 Bedside Glucose 144 167 206 White Blood Count 15.8 H Red Blood Count 3.57 L Hemoglobin 10.6 L Hematocrit 33.0 L Mean Corpuscular Volume 92.4 Mean Corpuscular Hemoglobin 29.7 Mean Corpuscular Hemoglobin Concent 32.1 Red Cell Distribution Width 15.7 H Platelet Count 260 Mean Platelet Volume 10.3 Neutrophils % 89.5 H Lymphocytes % 3.0 L Monocytes % 5.1 Eosinophils % 1.1 Basophils % 0.1 Nucleated Red Blood Cells % 0.0 Neutrophils # 14.1 H Lymphocytes # 0.5 L Monocytes # 0.8 Eosinophils # 0.2 Basophils # 0.0 Nucleated Red Blood Cells # 0.0 Sodium Level 133 L Potassium Level 4.3 Chloride Level 99 Carbon Dioxide Level 25 Anion Gap 13 Blood Urea Nitrogen 53 H Creatinine 2.67 H Glucose Level 151 # Calcium Level 9.1 Phosphorus Level 4.0 Magnesium Level 2.6 H Test 01/24/17 13:44 Bedside Glucose 161 Medications Medications Current Medications Naloxone HCl (Narcan) 0.4 mg Q4 PRN IV SEDATION; Start 01/05/17 at 01:30 Bisacodyl (Dulcolax Supp) 10 mg DAILY [place] Last administered on 01/23/17 08:51; Admin Dose 10 MG; Start 01/06/17 at 09:00 Budesonide (Pulmicort (Neb)) 0.25 mg BID NEB Last administered on 01/24/17 10: 05; Admin Dose 0.25 MG; Start 01/05/17 at 10:30 Fluticasone Propionate (Flonase 0.05% Nasal) 1 spray DAILY [place]AL Last administered on 01/24/17 09:05; Admin Dose 1 SPRAY; Start 01/05/17 at 11:00 Fulvestrant (Faslodex) 500 mg Q28D IM ; Start 01/29/17 at 09:00 Insulin Glargine (Lantus) 18 unit DAILY [place] Last administered on 01/24/17 08:48 ; Admin Dose 18 UNIT; Start 01/05/17 at 10:30 Magnesium Hydroxide (Milk Of Mag) 30 ml BID PRN PO CONSTIPATION Last administered on 01/16/17 09:09; Admin Dose 30 ML; Start 01/05/17 at 10:30 Nitroglycerin (Nitroglycerin 2% Oint) 0.5 inch Q6 PRN TD CHEST PAIN; Start 03/13 at 10:30 Ondansetron HCl (Zofran Inj) 4 mg Q6H PRN IV NAUSEA Last administered on 17:49; Admin Dose 4 MG; Start 01/05/17 at 10:30 Prednisone (Prednisone) 5 mg DAILY PO Last administered on 01/24/17 09:06; Admin Dose 5 MG; Start 01/05/17 at 12:00 Prednisone (Prednisone) 3 mg DAILY PO Last administered on 01/24/17 09:06; Admin Dose 3 MG; Start 01/05/17 at 12:00 Miscellaneous Information 1 ea NOTE XX ; Start 01/05/17 at 11:00 Glucose (Glutose) 15 gm Q15M PRN PO DECREASED GLUCOSE; Start 01/05/17 at 11:00 Glucose (Glutose) 22.5 gm Q15M PRN PO DECREASED GLUCOSE; Start 01/05/17 at 11: 00 Dextrose (D50w Syringe) 25 ml Q15M PRN IV DECREASED GLUCOSE Last administered on 01/23/17 03:45; Admin Dose 25 ML; Start 01/05/17 at 11:00 Dextrose (D50w Syringe) 50 ml Q15M PRN IV DECREASED GLUCOSE Last administered on 01/08/17 21:33; Admin Dose 50 ML; Start 01/05/17 at 11:00 Glucagon (Glucagen) 1 mg Q15M PRN IM DECREASED GLUCOSE Last administered on 21:08; Admin Dose 1 MG; Start 01/05/17 at 11:00 Glucose (Glutose) 15 gm Q15M PRN BUCCAL DECREASED GLUCOSE Last administered on 01/23/17 21:36; Admin Dose 15 GM; Start 01/05/17 at 11:00 Insulin Aspart NOVOLOG *MILD* ALGORI... Q4 [place] Last administered on 01/24/17 13 :45; Admin Dose 1 UNIT; Start 01/05/17 at 13:00 Fentanyl 100 ml @ 2.5 mls/hr TITRATE IV Last administered on 01/07/17 02:25; Admin Dose 7.5 MLS/HR; Start 01/06/17 at 09:30 Norepinephrine/ Dextrose (Levophed/D5W) 500 ml @ 0 mls/hr TITRATE IV ; Start 04/12 at 13:30 Bumetanide 1 mg 1 mg BID IV Last administered on 01/13/17 21:06; Admin Dose 1 MG; Start 01/08/17 at 09:00; Status Future Hold Propofol (Diprivan) 100 ml @ 2.19 mls/hr Q12H IV Last administered on 07:04; Admin Dose 15.28 MLS/HR; Start 01/08/17 at 16:00 Miscellaneous Information (*Order Clarification Bulletin) FULVESTRANT 250 MG/5 ML SYG: PLE... Q8H XX ; Start 01/26/17 at 09:00 Acetaminophen (Tylenol Tab) 650 mg Q6H PRN NGT PAIN AND OR ELEVATED TEMP; Start 01/17/17 at 22:30 Apixaban (Eliquis) 2.5 mg BID NGT Last administered on 01/18/17 08:20; Admin Dose 2.5 MG; Start 01/17/17 at 21:00; Status Future Hold Ascorbic Acid (Vitamin C) 500 mg BID NGT Last administered on 01/24/17 09:07; Admin Dose 500 MG; Start 01/17/17 at 21:00 Levothyroxine Sodium (Synthroid) 75 mcg DAILY@06 NGT Last administered on 06:01; Admin Dose 75 MCG; Start 01/18/17 at 06:00 Loratadine (Claritin) 10 mg DAILY NGT Last administered on 01/24/17 09:07; Admin Dose 10 MG; Start 01/18/17 at 09:00 Metoprolol Tartrate (Lopressor) 25 mg BID NGT Last administered on 01/24/17 09 :07; Admin Dose 25 MG; Start 01/17/17 at 21:00 Mirtazapine (Remeron) 15 mg HS NGT Last administered on 01/23/17 20:51; Admin Dose 15 MG; Start 01/17/17 at 21:00 Oxcarbazepine (Trileptal) 600 mg BID NGT Last administered on 01/24/17 09:07; Admin Dose 600 MG; Start 01/17/17 at 21:00 Senna (Senokot) 1 tab HS NGT Last administered on 01/23/17 20:50; Admin Dose 1 TAB; Start 01/17/17 at 21:00 Sertraline HCl (Zoloft) 75 mg DAILY NGT Last administered on 01/24/17 09:07; Admin Dose 75 MG; Start 01/18/17 at 09:00 Sildenafil Citrate (Revatio) 20 mg TID NGT Last administered on 01/24/17 09:11 ; Admin Dose 20 MG; Start 01/17/17 at 21:00 Tacrolimus (Prograf) 2 mg QPM NGT Last administered on 01/23/17 20:50; Admin Dose 2 MG; Start 01/17/17 at 21:00 Docusate Sodium (Colace Liquid Cup) 100 mg BID NGT Last administered on 09:08; Admin Dose 100 MG; Start 01/17/17 at 21:00 Voriconazole (Vfend) 200 mg BID PO Last administered on 01/24/17 09:07; Admin Dose 200 MG; Start 01/19/17 at 21:00 Famotidine (Pepcid) 20 mg DAILY NGT Last administered on 01/24/17 09:06; Admin Dose 20 MG; Start 01/20/17 at 09:00 Lorazepam (Ativan) 1 mg Q6H PRN IV anxiety Last administered on 01/23/17 17:49 ; Admin Dose 1 MG; Start 01/22/17 at 09:00 SHANICE DAVENPORT MD Jan 24, 2017 16:56
[2017-01-24] MEDS: SENNA TAB NGT SCH (20:27)
[2017-01-24] MEDS: MIRTAZAPINE 15 MG TAB NGT SCH (20:27)
[2017-01-24] MEDS: TACROLIMUS 1 MG CAP NGT SCH (23:19)
[2017-01-25] VITALS (40 sets, daily range): BP systolic 114–175; BP diastolic 50–94; PULSE 70–134; RESP 6–26
[2017-01-25] MEDS: IPRATROPIUM (HFA) 12.9 GM INHALER INH SCH ×4 (01:04→19:19)
[2017-01-25] MEDS: ALBUTEROL 18 GM INHALER INH SCH ×4 (01:04→19:21)
[2017-01-25] MEDS: INSULIN ASPART [NOVOLOG] 3 ML PEN SC SCH ×6 (01:13→20:05)
[2017-01-25] MEDS: PROPOFOL 100 ML IV SCH ×2 (04:00→16:00)
[2017-01-25 04:54] LABS: AADO2 Arterial 74.4 mmHg (7.0-24.0); Allen Test ACCEPTAB; Arterial Base Excess -0.1 mmol/L (-3.0-3); Arterial COHb 0.6 % (0.0-3.0); Arterial Fraction of Oxyhgb 96.2 % (93.0-99.0); Arterial HCO3 24.7 mmol/L (22.0-26.0); Arterial MetHb 0.2 % (0.0-1.5); Arterial Total Hemglobin 12.1 g/dl (12.0-18.0); MODE VENT - AC
[2017-01-25 05:11] LABS: BASOPHILS % 0.2 % (0.0-2.0); EOSINOPHILS # 0.3 10^3/ul (0.0-0.5); EOSINOPHILS % 2.8 % (0.0-7.0); HEMOGLOBIN 9.1 g/dl (12.0-16.0); LYMPHOCYTES # 0.6 10^3/ul (0.8-2.9); LYMPHOCYTES % 5.6 % (15.0-51.0); MEAN CORPUSCULAR HEMOGLOBIN 30.4 pg (29.0-33.0); MEAN CORPUSCULAR HGB CONC 32.5 g/dl (32.0-37.0); MEAN CORPUSCULAR VOLUME 93.6 fl (82.0-101.0); MEAN PLATELET VOLUME 10.1 fl (7.4-10.4); MONOCYTE # 0.7 10^3/ul (0.3-0.9); NEUTROPHIL # 9.5 10^3/ul (1.6-7.5); NEUTROPHILS % 84.2 % (39.0-77.0); PLATELET COUNT 231 10^3/UL (140-415); RED BLOOD COUNT 2.99 10^6/ul (4.20-5.40); RED CELL DISTRIBUTION WIDTH 15.6 % (11.5-14.5); WHITE BLOOD COUNT 11.2 10^3/ul (4.8-10.8)
[2017-01-25 05:46] LABS: CALCIUM 9.3 mg/dl (8.4-10.2); CREATININE 3.18 mg/dl (0.44-1.00); MAGNESIUM 2.7 mg/dl (1.7-2.5); POTASSIUM 4.6 mmol/L (3.5-5.1)
[2017-01-25] MEDS: LEVOTHYROXINE 75 MCG TAB NGT SCH (05:47)
[2017-01-25] MEDS: BUDESONIDE (NEB) 0.25 MG/2 ML AMP NEB SCH ×2 (08:02→21:24)
[2017-01-25] MEDS: BALSAM PERU/CASTOR OIL 60 GM TUBE TOP SCH (09:00)
[2017-01-25] MEDS: BISACODYL 10 MG SUPP PR SCH (09:00)
--- NOTE | 2017-01-25 09:13 | CONS ---
Date/Time of Note Date/Time of Note DATE: 01/25/17 TIME: 09:12 Consult Date/Type/Reason Admit Date/Time Jan 05, 2017 at 00:15 Initial Consult Date 01/05/17 Type of Consultation: nephro Ordering Provider: SUSAN SIMENTAL DO Subjective pt. seen and examined in icu on hd this am tolerating tube feeds Objective Vital Signs Date Time Temp Pulse Resp B/P Pulse Ox O2 Delivery O2 Flow Rate FiO2 01/25/17 07:30 106 12 100 30 01/25/17 07:00 159/68 Mechanical Ventilator 01/25/17 04:00 98.0 Intake and Output 01/24/17 01/24/17 01/25/17 15:00 23:00 07:00 Intake Total 410 ml 420 ml 280 ml Output Total 0 ml 0 ml 20 ml Balance 410 ml 420 ml 260 ml Exam HEENT: Head is normocephalic. NECK: Supple. HEART: Regular rate. LUNGS: Show diminished breath sounds base. Positive rhonchi. ABDOMEN: Soft, nontender to palpation. No rebound or guarding. EXTREMITIES: Negative for clubbing, cyanosis. No edema. DERMATOLOGIC: Clean. No rashes. MUSCULOSKELETAL: No joint effusion. NEUROLOGIC: No change in exam. Results/Medications Result Diagram: 01/25/17 0437 01/25/17 0437 Results 24 hrs Laboratory Tests Test 01/24/17 13:44 01/24/17 17:34 01/24/17 20:34 01/25/17 01:11 Bedside Glucose 161 184 187 205 Test 01/25/17 04:37 01/25/17 05:00 01/25/17 05:41 White Blood Count 11.2 #H Red Blood Count 2.99 L Hemoglobin 9.1 L Hematocrit 28.0 L Mean Corpuscular Volume 93.6 Mean Corpuscular Hemoglobin 30.4 Mean Corpuscular Hemoglobin Concent 32.5 Red Cell Distribution Width 15.6 H Platelet Count 231 Mean Platelet Volume 10.1 Neutrophils % 84.2 H Lymphocytes % 5.6 L Monocytes % 6.0 Eosinophils % 2.8 Basophils % 0.2 Nucleated Red Blood Cells % 0.0 Neutrophils # 9.5 H Lymphocytes # 0.6 L Monocytes # 0.7 Eosinophils # 0.3 Basophils # 0.0 Nucleated Red Blood Cells # 0.0 Sodium Level 130 L Potassium Level 4.6 Chloride Level 97 Carbon Dioxide Level 26 Anion Gap 12 Blood Urea Nitrogen 64 H Creatinine 3.18 H Glucose Level 222 H Calcium Level 9.3 Phosphorus Level 4.0 Magnesium Level 2.7 H Blood Gas Specimen Source Blood arterial Arterial Blood Date Drawn 01/25/2017 4:43:00 AM Arterial Blood pH (Temp corrected) 7.400 Arterial Blood pCO2 (Temp correct) 40.8 Arterial Blood pO2 (Temp corrected) 91.6 H Arterial Blood HCO3 24.7 Arterial Blood Base Excess -0.1 Arterial Blood Oxygen Saturation 97.0 Rey Test ACCEPTAB Arterial Blood Gas Puncture Site Left Radial Arterial Blood Carboxyhemoglobin 0.6 Arterial Blood Methemoglobin 0.2 Blood Gas A-a O2 Differential 74.4 H Oxyhemoglobin Percent 96.2 Total Hemoglobin 12.1 Blood Gas Temperature 37.0 Blood Gas Respiration Rate 12.0 Blood Gas Actual Respiration Rate 14 Blood Gas Modality VENT - AC FiO2 30.0 Blood Gas Tidal Volume 450.0 Blood Gas Low PEEP Setting 5.0 Blood Gas Notified Whom LW Blood Gas Notified Time 01/25/2017 4:53:00 AM Bedside Glucose 248 H Medications Current Medications Naloxone HCl (Narcan) 0.4 mg Q4 PRN IV SEDATION; Start 01/05/17 at 01:30 Bisacodyl (Dulcolax Supp) 10 mg DAILY [place] Last administered on 01/23/17 08:51; Admin Dose 10 MG; Start 01/06/17 at 09:00 Budesonide (Pulmicort (Neb)) 0.25 mg BID NEB Last administered on 01/25/17 08: 02; Admin Dose 0.25 MG; Start 01/05/17 at 10:30 Fluticasone Propionate (Flonase 0.05% Nasal) 1 spray DAILY NASAL Last administered on 01/24/17 09:05; Admin Dose 1 SPRAY; Start 01/05/17 at 11:00 Fulvestrant (Faslodex) 500 mg Q28D IM ; Start 01/29/17 at 09:00 Insulin Glargine (Lantus) 18 unit DAILY SC Last administered on 01/24/17 08:48 ; Admin Dose 18 UNIT; Start 01/05/17 at 10:30 Magnesium Hydroxide (Milk Of Mag) 30 ml BID PRN PO CONSTIPATION Last administered on 01/16/17 09:09; Admin Dose 30 ML; Start 01/05/17 at 10:30 Nitroglycerin (Nitroglycerin 2% Oint) 0.5 inch Q6 PRN TD CHEST PAIN; Start 03/13 at 10:30 Ondansetron HCl (Zofran Inj) 4 mg Q6H PRN IV NAUSEA Last administered on 17:49; Admin Dose 4 MG; Start 01/05/17 at 10:30 Prednisone (Prednisone) 5 mg DAILY PO Last administered on 01/24/17 09:06; Admin Dose 5 MG; Start 01/05/17 at 12:00 Prednisone (Prednisone) 3 mg DAILY PO Last administered on 01/24/17 09:06; Admin Dose 3 MG; Start 01/05/17 at 12:00 Miscellaneous Information 1 ea NOTE XX ; Start 01/05/17 at 11:00 Glucose (Glutose) 15 gm Q15M PRN PO DECREASED GLUCOSE; Start 01/05/17 at 11:00 Glucose (Glutose) 22.5 gm Q15M PRN PO DECREASED GLUCOSE; Start 01/05/17 at 11: 00 Dextrose (D50w Syringe) 25 ml Q15M PRN IV DECREASED GLUCOSE Last administered on 01/23/17 03:45; Admin Dose 25 ML; Start 01/05/17 at 11:00 Dextrose (D50w Syringe) 50 ml Q15M PRN IV DECREASED GLUCOSE Last administered on 01/08/17 21:33; Admin Dose 50 ML; Start 01/05/17 at 11:00 Glucagon (Glucagen) 1 mg Q15M PRN IM DECREASED GLUCOSE Last administered on 21:08; Admin Dose 1 MG; Start 01/05/17 at 11:00 Glucose (Glutose) 15 gm Q15M PRN BUCCAL DECREASED GLUCOSE Last administered on 01/23/17 21:36; Admin Dose 15 GM; Start 01/05/17 at 11:00 Insulin Aspart NOVOLOG *MILD* ALGORI... Q4 SC Last administered on 01/25/17 05 :51; Admin Dose 3 UNIT; Start 01/05/17 at 13:00 Fentanyl 100 ml @ 2.5 mls/hr TITRATE IV Last administered on 01/07/17 02:25; Admin Dose 7.5 MLS/HR; Start 01/06/17 at 09:30 Norepinephrine/ Dextrose (Levophed/D5W) 500 ml @ 0 mls/hr TITRATE IV ; Start 04/12 at 13:30 Bumetanide 1 mg 1 mg BID IV Last administered on 01/13/17 21:06; Admin Dose 1 MG; Start 01/08/17 at 09:00; Status Future Hold Propofol (Diprivan) 100 ml @ 2.19 mls/hr Q12H IV Last administered on 07:04; Admin Dose 15.28 MLS/HR; Start 01/08/17 at 16:00 Miscellaneous Information (*Order Clarification Bulletin) FULVESTRANT 250 MG/5 ML SYG: PLE... Q8H XX ; Start 01/26/17 at 09:00 Acetaminophen (Tylenol Tab) 650 mg Q6H PRN NGT PAIN AND OR ELEVATED TEMP; Start 01/17/17 at 22:30 Apixaban (Eliquis) 2.5 mg BID NGT Last administered on 01/18/17 08:20; Admin Dose 2.5 MG; Start 01/17/17 at 21:00; Status Future Hold Ascorbic Acid (Vitamin C) 500 mg BID NGT Last administered on 01/24/17 20:27; Admin Dose 500 MG; Start 01/17/17 at 21:00 Levothyroxine Sodium (Synthroid) 75 mcg DAILY@06 NGT Last administered on 05:47; Admin Dose 75 MCG; Start 01/18/17 at 06:00 Loratadine (Claritin) 10 mg DAILY NGT Last administered on 01/24/17 09:07; Admin Dose 10 MG; Start 01/18/17 at 09:00 Metoprolol Tartrate (Lopressor) 25 mg BID NGT Last administered on 01/24/17 20 :27; Admin Dose 25 MG; Start 01/17/17 at 21:00 Mirtazapine (Remeron) 15 mg HS NGT Last administered on 01/24/17 20:27; Admin Dose 15 MG; Start 01/17/17 at 21:00 Oxcarbazepine (Trileptal) 600 mg BID NGT Last administered on 01/24/17 20:27; Admin Dose 600 MG; Start 01/17/17 at 21:00 Senna (Senokot) 1 tab HS NGT Last administered on 01/24/17 20:27; Admin Dose 1 TAB; Start 01/17/17 at 21:00 Sertraline HCl (Zoloft) 75 mg DAILY NGT Last administered on 01/24/17 09:07; Admin Dose 75 MG; Start 01/18/17 at 09:00 Sildenafil Citrate (Revatio) 20 mg TID NGT Last administered on 01/24/17 20:27 ; Admin Dose 20 MG; Start 01/17/17 at 21:00 Docusate Sodium (Colace Liquid Cup) 100 mg BID NGT Last administered on 20:26; Admin Dose 100 MG; Start 01/17/17 at 21:00 Voriconazole (Vfend) 200 mg BID PO Last administered on 01/24/17 20:26; Admin Dose 200 MG; Start 01/19/17 at 21:00 Famotidine (Pepcid) 20 mg DAILY NGT Last administered on 01/24/17 09:06; Admin Dose 20 MG; Start 01/20/17 at 09:00 Lorazepam (Ativan) 1 mg Q6H PRN IV anxiety Last administered on 01/23/17 17:49 ; Admin Dose 1 MG; Start 01/22/17 at 09:00 Tacrolimus (Prograf) 2 mg QPM NGT Last administered on 01/24/17 23:19; Admin Dose 2 MG; Start 01/24/17 at 21:00 Assessment/Plan Chief Complaint/Hosp Course 1. 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 -Etiology secondary to acute tubular necrosis. -The patient is currently dialysis dependent. - No signs of recovery. Anticipate -on hd this am 2. Hyponatremia. Continue hemodialysis and 140 sodium bath. 3. Paroxysmal atrial fibrillation. Currently in sinus rhythm. 4. Sepsis status post shock secondary to pneumonia, fungal urinary tract infection. Continue antifungal therapy. 5. History of end-stage renal disease. Status post renal transplant with chronic allograft failure. The patient is currently in acute kidney injury as stated above. Continue current medical management. Continue immunosuppressive regimen. 6. Hypothyroidism. Continue Synthroid. 7. Anemia. Monitor H and H levels. 8. Diabetes. Continue current insulin regimen. 9. Pulmonary hypertension. Continue medical management. 10. Dysphagia. Continue tube feeding. 11. History of breast cancer. Follow up with Hematology. 12. Gastrointestinal and deep venous thrombosis prophylaxis. 13. Bilateral pleural effusion. Consider thoracentesis. Problems: LELO RICHARDSON MD Jan 25, 2017 09:13
[2017-01-25] MEDS: TACROLIMUS 1 MG CAP NGT SCH ×2 (09:29→20:07)
[2017-01-25] MEDS: DOCUSATE SODIUM 10 MG/ML (10ML CUP) NGT SCH ×2 (09:30→20:06)
[2017-01-25] MEDS: METOPROLOL 25 MG TAB NGT SCH ×2 (09:30→20:08)
[2017-01-25] MEDS: FLUTICASONE 0.05% 16 GM NAS SPRAY NASAL SCH (09:30)
[2017-01-25] MEDS: OXCARBAZEPINE 300 MG TAB NGT SCH ×2 (09:30→20:06)
[2017-01-25] MEDS: LORATADINE 10 MG TAB NGT SCH (09:30)
[2017-01-25] MEDS: FAMOTIDINE 20 MG TAB NGT SCH (09:30)
[2017-01-25] MEDS: ASCORBIC ACID 500 MG TAB NGT SCH ×2 (09:31→20:08)
[2017-01-25] MEDS: predniSONE 5 MG TAB PO SCH (09:31)
[2017-01-25] MEDS: SERTRALINE 50 MG TAB NGT SCH (09:31)
[2017-01-25] MEDS: predniSONE 1 MG TAB PO SCH (09:31)
[2017-01-25] MEDS: VORICONAZOLE 200 MG TAB PO SCH ×2 (09:31→20:07)
[2017-01-25] MEDS: SILDENAFIL 20 MG TAB NGT SCH ×3 (09:32→20:16)
[2017-01-25] MEDS: INSULIN GLARGINE [LANtus] 3 ML PEN SC SCH ×2 (09:43→20:09)
--- NOTE | 2017-01-25 10:03 | RADRPT ---
PROCEDURE: XR Chest. CLINICAL INDICATION: Shortness of breath. TECHNIQUE: Single frontal view. COMPARISON: 01/24/2017. FINDINGS: The endotracheal tube and right internal jugular vein temporary dialysis catheter remain in satisfac tory position. The heart is enlarged. There is calcification in the aorta consistent with atheroscle rosis. Pulmonary edema is unchanged. There are small bilateral pleural effusions, slightly larger than seen previously. Surgical clips are noted in the chest as seen previously. There is no pneumothorax. IMPRESSION: 1. Slightly larger bilateral pleural effusions. 2. No other change from 01/24/2017. RPTAT: QQ .Jarvis Block MD, MD Date Time Electronically viewed and signed by .Jarvis Block MD, MD on 01/25/2017 10:03 .R/
--- NOTE | 2017-01-25 13:11 | CONS ---
Date/Time of Note Date/Time of Note DATE: 01/25/17 TIME: 13:09 Consult Date/Type/Reason Admit Date/Time Jan 05, 2017 at 00:15 Initial Consult Date 01/05/17 Type of Consultation: Pulm/CCM Ordering Provider: SUSAN SIMENTAL DO Subjective No events on MV. Objective Vital Signs Date Time Temp Pulse Resp B/P Pulse Ox O2 Delivery O2 Flow Rate FiO2 01/25/17 11:35 85 14 100 30 01/25/17 07:00 159/68 Mechanical Ventilator 01/25/17 04:00 98.0 Intake and Output 01/24/17 01/24/17 01/25/17 15:00 23:00 07:00 Intake Total 410 ml 420 ml 280 ml Output Total 0 ml 0 ml 20 ml Balance 410 ml 420 ml 260 ml Exam HEENT: Neck supple; no JVD; no LAD; + ET tube in place CVS: Irreg, S1 and S2 CHEST: Coarse BS and decreased sounds at bases ABD: Soft, NT, + BS EXT: No c/c; + edema Results/Medications Result Diagram: 01/25/17 0437 01/25/17 0437 Results 24 hrs Laboratory Tests Test 01/24/17 13:44 01/24/17 17:34 01/24/17 20:34 01/25/17 01:11 Bedside Glucose 161 184 187 205 Test 01/25/17 04:37 01/25/17 05:00 01/25/17 05:41 01/25/17 09:33 White Blood Count 11.2 #H Red Blood Count 2.99 L Hemoglobin 9.1 L Hematocrit 28.0 L Mean Corpuscular Volume 93.6 Mean Corpuscular Hemoglobin 30.4 Mean Corpuscular Hemoglobin Concent 32.5 Red Cell Distribution Width 15.6 H Platelet Count 231 Mean Platelet Volume 10.1 Neutrophils % 84.2 H Lymphocytes % 5.6 L Monocytes % 6.0 Eosinophils % 2.8 Basophils % 0.2 Nucleated Red Blood Cells % 0.0 Neutrophils # 9.5 H Lymphocytes # 0.6 L Monocytes # 0.7 Eosinophils # 0.3 Basophils # 0.0 Nucleated Red Blood Cells # 0.0 Sodium Level 130 L Potassium Level 4.6 Chloride Level 97 Carbon Dioxide Level 26 Anion Gap 12 Blood Urea Nitrogen 64 H Creatinine 3.18 H Glucose Level 222 H Calcium Level 9.3 Phosphorus Level 4.0 Magnesium Level 2.7 H Blood Gas Specimen Source Blood arterial Arterial Blood Date Drawn 01/25/2017 4:43:00 AM Arterial Blood pH (Temp corrected) 7.400 Arterial Blood pCO2 (Temp correct) 40.8 Arterial Blood pO2 (Temp corrected) 91.6 H Arterial Blood HCO3 24.7 Arterial Blood Base Excess -0.1 Arterial Blood Oxygen Saturation 97.0 Rey Test ACCEPTAB Arterial Blood Gas Puncture Site Left Radial Arterial Blood Carboxyhemoglobin 0.6 Arterial Blood Methemoglobin 0.2 Blood Gas A-a O2 Differential 74.4 H Oxyhemoglobin Percent 96.2 Total Hemoglobin 12.1 Blood Gas Temperature 37.0 Blood Gas Respiration Rate 12.0 Blood Gas Actual Respiration Rate 14 Blood Gas Modality VENT - AC FiO2 30.0 Blood Gas Tidal Volume 450.0 Blood Gas Low PEEP Setting 5.0 Blood Gas Notified Whom LW Blood Gas Notified Time 01/25/2017 4:53:00 AM Bedside Glucose 248 H 247 H Medications Current Medications Naloxone HCl (Narcan) 0.4 mg Q4 PRN IV SEDATION; Start 01/05/17 at 01:30 Bisacodyl (Dulcolax Supp) 10 mg DAILY [place] Last administered on 01/23/17 08:51; Admin Dose 10 MG; Start 01/06/17 at 09:00 Budesonide (Pulmicort (Neb)) 0.25 mg BID NEB Last administered on 01/25/17 08: 02; Admin Dose 0.25 MG; Start 01/05/17 at 10:30 Fluticasone Propionate (Flonase 0.05% Nasal) 1 spray DAILY NASAL Last administered on 01/25/17 09:30; Admin Dose 1 SPRAY; Start 01/05/17 at 11:00 Fulvestrant (Faslodex) 500 mg Q28D IM ; Start 01/29/17 at 09:00 Magnesium Hydroxide (Milk Of Mag) 30 ml BID PRN PO CONSTIPATION Last administered on 01/16/17 09:09; Admin Dose 30 ML; Start 01/05/17 at 10:30 Nitroglycerin (Nitroglycerin 2% Oint) 0.5 inch Q6 PRN TD CHEST PAIN; Start 03/13 at 10:30 Ondansetron HCl (Zofran Inj) 4 mg Q6H PRN IV NAUSEA Last administered on 17:49; Admin Dose 4 MG; Start 01/05/17 at 10:30 Prednisone (Prednisone) 5 mg DAILY PO Last administered on 01/25/17 09:31; Admin Dose 5 MG; Start 01/05/17 at 12:00 Prednisone (Prednisone) 3 mg DAILY PO Last administered on 01/25/17 09:31; Admin Dose 3 MG; Start 01/05/17 at 12:00 Miscellaneous Information 1 ea NOTE XX ; Start 01/05/17 at 11:00 Glucose (Glutose) 15 gm Q15M PRN PO DECREASED GLUCOSE; Start 01/05/17 at 11:00 Glucose (Glutose) 22.5 gm Q15M PRN PO DECREASED GLUCOSE; Start 01/05/17 at 11: 00 Dextrose (D50w Syringe) 25 ml Q15M PRN IV DECREASED GLUCOSE Last administered on 01/23/17 03:45; Admin Dose 25 ML; Start 01/05/17 at 11:00 Dextrose (D50w Syringe) 50 ml Q15M PRN IV DECREASED GLUCOSE Last administered on 01/08/17 21:33; Admin Dose 50 ML; Start 01/05/17 at 11:00 Glucagon (Glucagen) 1 mg Q15M PRN IM DECREASED GLUCOSE Last administered on 21:08; Admin Dose 1 MG; Start 01/05/17 at 11:00 Glucose 15 gm 15 gm Q15M PRN BUCCAL DECREASED GLUCOSE Last administered on 01/23 21:36; Admin Dose 15 GM; Start 01/05/17 at 11:00 Fentanyl 100 ml @ 2.5 mls/hr TITRATE IV Last administered on 01/07/17 02:25; Admin Dose 7.5 MLS/HR; Start 01/06/17 at 09:30 Norepinephrine/ Dextrose (Levophed/D5W) 500 ml @ 0 mls/hr TITRATE IV ; Start 04/12 at 13:30 Bumetanide 1 mg 1 mg BID IV Last administered on 01/13/17 21:06; Admin Dose 1 MG; Start 01/08/17 at 09:00; Status Future Hold Propofol (Diprivan) 100 ml @ 2.19 mls/hr Q12H IV Last administered on 07:04; Admin Dose 15.28 MLS/HR; Start 01/08/17 at 16:00 Miscellaneous Information (*Order Clarification Bulletin) FULVESTRANT 250 MG/5 ML SYG: PLE... Q8H XX ; Start 01/26/17 at 09:00 Acetaminophen (Tylenol Tab) 650 mg Q6H PRN NGT PAIN AND OR ELEVATED TEMP; Start 01/17/17 at 22:30 Apixaban (Eliquis) 2.5 mg BID NGT Last administered on 01/18/17 08:20; Admin Dose 2.5 MG; Start 01/17/17 at 21:00; Status Future Hold Ascorbic Acid (Vitamin C) 500 mg BID NGT Last administered on 01/25/17 09:31; Admin Dose 500 MG; Start 01/17/17 at 21:00 Levothyroxine Sodium (Synthroid) 75 mcg DAILY@06 NGT Last administered on 05:47; Admin Dose 75 MCG; Start 01/18/17 at 06:00 Loratadine (Claritin) 10 mg DAILY NGT Last administered on 01/25/17 09:30; Admin Dose 10 MG; Start 01/18/17 at 09:00 Metoprolol Tartrate (Lopressor) 25 mg BID NGT Last administered on 01/25/17 09 :30; Admin Dose 25 MG; Start 01/17/17 at 21:00 Mirtazapine (Remeron) 15 mg HS NGT Last administered on 01/24/17 20:27; Admin Dose 15 MG; Start 01/17/17 at 21:00 Oxcarbazepine (Trileptal) 600 mg BID NGT Last administered on 01/25/17 09:30; Admin Dose 600 MG; Start 01/17/17 at 21:00 Senna (Senokot) 1 tab HS NGT Last administered on 01/24/17 20:27; Admin Dose 1 TAB; Start 01/17/17 at 21:00 Sertraline HCl (Zoloft) 75 mg DAILY NGT Last administered on 01/25/17 09:31; Admin Dose 75 MG; Start 01/18/17 at 09:00 Sildenafil Citrate (Revatio) 20 mg TID NGT Last administered on 01/25/17 09:32 ; Admin Dose 20 MG; Start 01/17/17 at 21:00 Docusate Sodium (Colace Liquid Cup) 100 mg BID NGT Last administered on 09:30; Admin Dose 100 MG; Start 01/17/17 at 21:00 Voriconazole (Vfend) 200 mg BID PO Last administered on 01/25/17 09:31; Admin Dose 200 MG; Start 01/19/17 at 21:00 Famotidine (Pepcid) 20 mg DAILY NGT Last administered on 01/25/17 09:30; Admin Dose 20 MG; Start 01/20/17 at 09:00 Lorazepam (Ativan) 1 mg Q6H PRN IV anxiety Last administered on 01/23/17 17:49 ; Admin Dose 1 MG; Start 01/22/17 at 09:00 Tacrolimus (Prograf) 2 mg QPM NGT Last administered on 01/24/17 23:19; Admin Dose 2 MG; Start 01/24/17 at 21:00 Insulin Glargine (Lantus) 14 unit BID@08,20 SC ; Start 01/25/17 at 20:00 Diagnostic Test (Pha) (Accu-Chek) 1 ea 02 XX ; Start 01/26/17 at 02:00 Assessment/Plan Additional Assessment/Plan IMP: 1. Hypoxemic respiratory failure/Vent dependence. Status post thoracentesis. Failed multiple CPAP weaning trials, pending tracheostomy 2. Altered mental status 3. History of renal transplant. Renal insufficiency. 4. Dysphagia now with G-tube 5. Persistent leukocytosis. RECS:: 1. Continue vent support, pending tracheostomy on Thursday 2. Decrease sedation as tolerated. 3. TF/Free H20 4. Am labs/CXR/ABG 5. DVT and GI prophylaxis 6. Coags prior to trach 35 min cc time. SRINIVAS NEGRO MD Jan 25, 2017 13:11
--- NOTE | 2017-01-25 14:13 | CONS ---
Date/Time of Note Date/Time of Note DATE: 01/25/17 TIME: 14:12 Assessment/Plan Assessment/Plan Chief Complaint/Hosp Course ID PROGRESS NOTE TOTAL ABX DAY # CURRENT ABX=> VFend 24H INTERVAL SUMMARY * NO fevers recorded -- WBC 11.2, s/p HD this am, * Remaines orally intubated/Vented,, opens eyes, persistent debility/weakness * New HD catheter placed 01/23 * 01/18/17 Urine-> (+) Yeast EXAM GENERAL: 71 yo F, resting comfortably on the Vent orally intubated HEENT: ETT-> Secure to vetn NECK: supple, R-IJ HD catheter CHEST: Course, Afib on tele monitor ABDOMEN: Soft, NT EXTREMITIES: WArm, slight edema SKIN: No diaphoresis, no rash ID ASSESSMENT: 72 yo F admit [facility] with: 1. Sepsis status post-shock. * 01/05 BCx (-) * 01/05 Urine Cx(-) 2. Acute respiratory failure. 3. Healthcare-associated pneumonia possibly aspirated. 4. Pleural effusions -> s/p Thora 01/10 5. History of metastatic breast cancer. 6. History of kidney transplant, on immunosuppressive therapy. 7. Diabetes. 8. Hypertension. (-)MRSA Nares INVASIVES: PICC, NGT, ETT, R-IJ Bandar (01/23) ABX ALLERGY: Tetracycline TOTAL ABX DAY # CURRENT ABX=> VFend ID PLAN 1. Continue current ABX, weaning per pulmonary . Problems: Consultation Date/Type/Reason Admit Date/Time Jan 05, 2017 at 00:15 Initial Consult Date 01/05/17 Type of Consultation: ID Referring Provider: SUSAN SIMENTAL DO Exam/Review of Systems Vital Signs Vitals Vital Signs Date Time Temp Pulse Resp B/P Pulse Ox O2 Delivery O2 Flow Rate FiO2 01/25/17 12:00 96 01/25/17 11:35 14 100 30 01/25/17 07:00 159/68 Mechanical Ventilator 01/25/17 04:00 98.0 Intake and Output 01/24/17 01/24/17 01/25/17 15:00 23:00 07:00 Intake Total 410 ml 420 ml 280 ml Output Total 0 ml 0 ml 20 ml Balance 410 ml 420 ml 260 ml Results Result Diagram: 01/25/17 0437 01/25/17 0437 Results 24 hrs Laboratory Tests Test 01/24/17 17:34 01/24/17 20:34 01/25/17 01:11 01/25/17 04:37 Bedside Glucose 184 187 205 White Blood Count 11.2 #H Red Blood Count 2.99 L Hemoglobin 9.1 L Hematocrit 28.0 L Mean Corpuscular Volume 93.6 Mean Corpuscular Hemoglobin 30.4 Mean Corpuscular Hemoglobin Concent 32.5 Red Cell Distribution Width 15.6 H Platelet Count 231 Mean Platelet Volume 10.1 Neutrophils % 84.2 H Lymphocytes % 5.6 L Monocytes % 6.0 Eosinophils % 2.8 Basophils % 0.2 Nucleated Red Blood Cells % 0.0 Neutrophils # 9.5 H Lymphocytes # 0.6 L Monocytes # 0.7 Eosinophils # 0.3 Basophils # 0.0 Nucleated Red Blood Cells # 0.0 Sodium Level 130 L Potassium Level 4.6 Chloride Level 97 Carbon Dioxide Level 26 Anion Gap 12 Blood Urea Nitrogen 64 H Creatinine 3.18 H Glucose Level 222 H Calcium Level 9.3 Phosphorus Level 4.0 Magnesium Level 2.7 H Test 01/25/17 05:00 01/25/17 05:41 01/25/17 09:33 01/25/17 13:34 Blood Gas Specimen Source Blood arterial Arterial Blood Date Drawn 01/25/2017 4:43:00 AM Arterial Blood pH (Temp corrected) 7.400 Arterial Blood pCO2 (Temp correct) 40.8 Arterial Blood pO2 (Temp corrected) 91.6 H Arterial Blood HCO3 24.7 Arterial Blood Base Excess -0.1 Arterial Blood Oxygen Saturation 97.0 Rey Test ACCEPTAB Arterial Blood Gas Puncture Site Left Radial Arterial Blood Carboxyhemoglobin 0.6 Arterial Blood Methemoglobin 0.2 Blood Gas A-a O2 Differential 74.4 H Oxyhemoglobin Percent 96.2 Total Hemoglobin 12.1 Blood Gas Temperature 37.0 Blood Gas Respiration Rate 12.0 Blood Gas Actual Respiration Rate 14 Blood Gas Modality VENT - AC FiO2 30.0 Blood Gas Tidal Volume 450.0 Blood Gas Low PEEP Setting 5.0 Blood Gas Notified Whom LW Blood Gas Notified Time 01/25/2017 4:53:00 AM Bedside Glucose 248 H 247 H 262 H Medications Medications Current Medications Naloxone HCl (Narcan) 0.4 mg Q4 PRN IV SEDATION; Start 01/05/17 at 01:30 Bisacodyl (Dulcolax Supp) 10 mg DAILY [place] Last administered on 01/23/17 08:51; Admin Dose 10 MG; Start 01/06/17 at 09:00 Budesonide (Pulmicort (Neb)) 0.25 mg BID NEB Last administered on 01/25/17 08: 02; Admin Dose 0.25 MG; Start 01/05/17 at 10:30 Fluticasone Propionate (Flonase 0.05% Nasal) 1 spray DAILY NASAL Last administered on 01/25/17 09:30; Admin Dose 1 SPRAY; Start 01/05/17 at 11:00 Fulvestrant (Faslodex) 500 mg Q28D IM ; Start 01/29/17 at 09:00 Magnesium Hydroxide (Milk Of Mag) 30 ml BID PRN PO CONSTIPATION Last administered on 01/16/17 09:09; Admin Dose 30 ML; Start 01/05/17 at 10:30 Nitroglycerin (Nitroglycerin 2% Oint) 0.5 inch Q6 PRN TD CHEST PAIN; Start 03/13 at 10:30 Ondansetron HCl (Zofran Inj) 4 mg Q6H PRN IV NAUSEA Last administered on 17:49; Admin Dose 4 MG; Start 01/05/17 at 10:30 Prednisone (Prednisone) 5 mg DAILY PO Last administered on 01/25/17 09:31; Admin Dose 5 MG; Start 01/05/17 at 12:00 Prednisone (Prednisone) 3 mg DAILY PO Last administered on 01/25/17 09:31; Admin Dose 3 MG; Start 01/05/17 at 12:00 Miscellaneous Information 1 ea NOTE XX ; Start 01/05/17 at 11:00 Glucose (Glutose) 15 gm Q15M PRN PO DECREASED GLUCOSE; Start 01/05/17 at 11:00 Glucose (Glutose) 22.5 gm Q15M PRN PO DECREASED GLUCOSE; Start 01/05/17 at 11: 00 Dextrose (D50w Syringe) 25 ml Q15M PRN IV DECREASED GLUCOSE Last administered on 01/23/17 03:45; Admin Dose 25 ML; Start 01/05/17 at 11:00 Dextrose (D50w Syringe) 50 ml Q15M PRN IV DECREASED GLUCOSE Last administered on 01/08/17 21:33; Admin Dose 50 ML; Start 01/05/17 at 11:00 Glucagon (Glucagen) 1 mg Q15M PRN IM DECREASED GLUCOSE Last administered on 21:08; Admin Dose 1 MG; Start 01/05/17 at 11:00 Glucose 15 gm 15 gm Q15M PRN BUCCAL DECREASED GLUCOSE Last administered on 01/23 21:36; Admin Dose 15 GM; Start 01/05/17 at 11:00 Fentanyl 100 ml @ 2.5 mls/hr TITRATE IV Last administered on 01/07/17 02:25; Admin Dose 7.5 MLS/HR; Start 01/06/17 at 09:30 Norepinephrine/ Dextrose (Levophed/D5W) 500 ml @ 0 mls/hr TITRATE IV ; Start 04/12 at 13:30 Bumetanide 1 mg 1 mg BID IV Last administered on 01/13/17 21:06; Admin Dose 1 MG; Start 01/08/17 at 09:00; Status Future Hold Propofol (Diprivan) 100 ml @ 2.19 mls/hr Q12H IV Last administered on 07:04; Admin Dose 15.28 MLS/HR; Start 01/08/17 at 16:00 Miscellaneous Information (*Order Clarification Bulletin) FULVESTRANT 250 MG/5 ML SYG: PLE... Q8H XX ; Start 01/26/17 at 09:00 Acetaminophen (Tylenol Tab) 650 mg Q6H PRN NGT PAIN AND OR ELEVATED TEMP; Start 01/17/17 at 22:30 Apixaban (Eliquis) 2.5 mg BID NGT Last administered on 01/18/17 08:20; Admin Dose 2.5 MG; Start 01/17/17 at 21:00; Status Future Hold Ascorbic Acid (Vitamin C) 500 mg BID NGT Last administered on 01/25/17 09:31; Admin Dose 500 MG; Start 01/17/17 at 21:00 Levothyroxine Sodium (Synthroid) 75 mcg DAILY@06 NGT Last administered on 05:47; Admin Dose 75 MCG; Start 01/18/17 at 06:00 Loratadine (Claritin) 10 mg DAILY NGT Last administered on 01/25/17 09:30; Admin Dose 10 MG; Start 01/18/17 at 09:00 Metoprolol Tartrate (Lopressor) 25 mg BID NGT Last administered on 01/25/17 09 :30; Admin Dose 25 MG; Start 01/17/17 at 21:00 Mirtazapine (Remeron) 15 mg HS NGT Last administered on 01/24/17 20:27; Admin Dose 15 MG; Start 01/17/17 at 21:00 Oxcarbazepine (Trileptal) 600 mg BID NGT Last administered on 01/25/17 09:30; Admin Dose 600 MG; Start 01/17/17 at 21:00 Senna (Senokot) 1 tab HS NGT Last administered on 01/24/17 20:27; Admin Dose 1 TAB; Start 01/17/17 at 21:00 Sertraline HCl (Zoloft) 75 mg DAILY NGT Last administered on 01/25/17 09:31; Admin Dose 75 MG; Start 01/18/17 at 09:00 Sildenafil Citrate (Revatio) 20 mg TID NGT Last administered on 01/25/17 13:37 ; Admin Dose 20 MG; Start 01/17/17 at 21:00 Docusate Sodium (Colace Liquid Cup) 100 mg BID NGT Last administered on 09:30; Admin Dose 100 MG; Start 01/17/17 at 21:00 Voriconazole (Vfend) 200 mg BID PO Last administered on 01/25/17 09:31; Admin Dose 200 MG; Start 01/19/17 at 21:00 Famotidine (Pepcid) 20 mg DAILY NGT Last administered on 01/25/17 09:30; Admin Dose 20 MG; Start 01/20/17 at 09:00 Lorazepam (Ativan) 1 mg Q6H PRN IV anxiety Last administered on 01/23/17 17:49 ; Admin Dose 1 MG; Start 01/22/17 at 09:00 Tacrolimus (Prograf) 2 mg QPM NGT Last administered on 01/24/17 23:19; Admin Dose 2 MG; Start 01/24/17 at 21:00 Insulin Glargine (Lantus) 14 unit BID@08,20 SC ; Start 01/25/17 at 20:00 Diagnostic Test (Pha) (Accu-Chek) 1 02 XX ; Start 01/26/17 at 02:00 NELSON BRAXTON NP Jan 25, 2017 14:13
[2017-01-25] MEDS: ONDANSETRON 4 MG INJ IV PRN (17:26)
--- NOTE | 2017-01-25 17:56 | CONS ---
Date/Time of Note Date/Time of Note DATE: 01/25/17 TIME: 17:56 Assessment/Plan Assessment/Plan Chief Complaint/Hosp Course History of breast cancer with lung metastasis. The patient is on medical management. on Faslodex as outpt Anemia. Monitor hemoglobin and hematocrit levels. 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 Congestive heart failure exacerbation. Hypothyroidism. Diabetes. Continue current insulin regimen. Pulmonary hypertension. Depression. Problems: Consultation Date/Type/Reason Admit Date/Time Jan 05, 2017 at 00:15 Initial Consult Date 01/05/17 Type of Consultation: HEMEON Referring Provider: SUSAN SIMENTAL DO 24 HR Interval Summary Free Text/Dictation ALL NOTED NAD ON VENT Exam/Review of Systems Vital Signs Vitals Vital Signs Date Time Temp Pulse Resp B/P Pulse Ox O2 Delivery O2 Flow Rate FiO2 01/25/17 17:45 77 12 100 30 01/25/17 17:30 135/54 Mechanical Ventilator 01/25/17 16:00 98.3 Intake and Output 01/24/17 01/24/17 01/25/17 15:00 23:00 07:00 Intake Total 410 ml 420 ml 320 ml Output Total 0 ml 0 ml 20 ml Balance 410 ml 420 ml 300 ml Exam HEENT: Head is normocephalic. NECK: Supple. HEART: Regular rate. LUNGS: Show diminished breath sounds base. Positive rhonchi. ABDOMEN: Soft, nontender to palpation. No rebound or guarding. EXTREMITIES: Negative for clubbing, cyanosis. No edema. DERMATOLOGIC: Clean. No rashes. MUSCULOSKELETAL: No joint effusion. NEUROLOGIC: No change in exam. Results Result Diagram: 01/25/17 0437 01/25/17 0437 Results 24 hrs Laboratory Tests Test 01/24/17 20:34 01/25/17 01:11 01/25/17 04:37 01/25/17 05:00 Bedside Glucose 187 205 White Blood Count 11.2 #H Red Blood Count 2.99 L Hemoglobin 9.1 L Hematocrit 28.0 L Mean Corpuscular Volume 93.6 Mean Corpuscular Hemoglobin 30.4 Mean Corpuscular Hemoglobin Concent 32.5 Red Cell Distribution Width 15.6 H Platelet Count 231 Mean Platelet Volume 10.1 Neutrophils % 84.2 H Lymphocytes % 5.6 L Monocytes % 6.0 Eosinophils % 2.8 Basophils % 0.2 Nucleated Red Blood Cells % 0.0 Neutrophils # 9.5 H Lymphocytes # 0.6 L Monocytes # 0.7 Eosinophils # 0.3 Basophils # 0.0 Nucleated Red Blood Cells # 0.0 Sodium Level 130 L Potassium Level 4.6 Chloride Level 97 Carbon Dioxide Level 26 Anion Gap 12 Blood Urea Nitrogen 64 H Creatinine 3.18 H Glucose Level 222 H Calcium Level 9.3 Phosphorus Level 4.0 Magnesium Level 2.7 H Blood Gas Specimen Source Blood arterial Arterial Blood Date Drawn 01/25/2017 4:43:00 AM Arterial Blood pH (Temp corrected) 7.400 Arterial Blood pCO2 (Temp correct) 40.8 Arterial Blood pO2 (Temp corrected) 91.6 H Arterial Blood HCO3 24.7 Arterial Blood Base Excess -0.1 Arterial Blood Oxygen Saturation 97.0 Rey Test ACCEPTAB Arterial Blood Gas Puncture Site Left Radial Arterial Blood Carboxyhemoglobin 0.6 Arterial Blood Methemoglobin 0.2 Blood Gas A-a O2 Differential 74.4 H Oxyhemoglobin Percent 96.2 Total Hemoglobin 12.1 Blood Gas Temperature 37.0 Blood Gas Respiration Rate 12.0 Blood Gas Actual Respiration Rate 14 Blood Gas Modality VENT - AC FiO2 30.0 Blood Gas Tidal Volume 450.0 Blood Gas Low PEEP Setting 5.0 Blood Gas Notified Whom LW Blood Gas Notified Time 01/25/2017 4:53:00 AM Test 01/25/17 05:41 01/25/17 09:33 01/25/17 13:34 01/25/17 17:25 Bedside Glucose 248 H 247 H 262 H 121 Medications Medications Current Medications Naloxone HCl (Narcan) 0.4 mg Q4 PRN IV SEDATION; Start 01/05/17 at 01:30 Bisacodyl (Dulcolax Supp) 10 mg DAILY [place] Last administered on 01/23/17 08:51; Admin Dose 10 MG; Start 01/06/17 at 09:00 Budesonide (Pulmicort (Neb)) 0.25 mg BID NEB Last administered on 01/25/17 08: 02; Admin Dose 0.25 MG; Start 01/05/17 at 10:30 Fluticasone Propionate (Flonase 0.05% Nasal) 1 spray DAILY NASAL Last administered on 01/25/17 09:30; Admin Dose 1 SPRAY; Start 01/05/17 at 11:00 Fulvestrant (Faslodex) 500 mg Q28D IM ; Start 01/29/17 at 09:00 Magnesium Hydroxide (Milk Of Mag) 30 ml BID PRN PO CONSTIPATION Last administered on 01/16/17 09:09; Admin Dose 30 ML; Start 01/05/17 at 10:30 Nitroglycerin (Nitroglycerin 2% Oint) 0.5 inch Q6 PRN TD CHEST PAIN; Start 03/13 at 10:30 Ondansetron HCl (Zofran Inj) 4 mg Q6H PRN IV NAUSEA Last administered on 17:26; Admin Dose 4 MG; Start 01/05/17 at 10:30 Prednisone (Prednisone) 5 mg DAILY PO Last administered on 01/25/17 09:31; Admin Dose 5 MG; Start 01/05/17 at 12:00 Prednisone (Prednisone) 3 mg DAILY PO Last administered on 01/25/17 09:31; Admin Dose 3 MG; Start 01/05/17 at 12:00 Miscellaneous Information 1 ea NOTE XX ; Start 01/05/17 at 11:00 Glucose (Glutose) 15 gm Q15M PRN PO DECREASED GLUCOSE; Start 01/05/17 at 11:00 Glucose (Glutose) 22.5 gm Q15M PRN PO DECREASED GLUCOSE; Start 01/05/17 at 11: 00 Dextrose (D50w Syringe) 25 ml Q15M PRN IV DECREASED GLUCOSE Last administered on 01/23/17 03:45; Admin Dose 25 ML; Start 01/05/17 at 11:00 Dextrose (D50w Syringe) 50 ml Q15M PRN IV DECREASED GLUCOSE Last administered on 01/08/17 21:33; Admin Dose 50 ML; Start 01/05/17 at 11:00 Glucagon (Glucagen) 1 mg Q15M PRN IM DECREASED GLUCOSE Last administered on 21:08; Admin Dose 1 MG; Start 01/05/17 at 11:00 Glucose 15 gm 15 gm Q15M PRN BUCCAL DECREASED GLUCOSE Last administered on 01/23 21:36; Admin Dose 15 GM; Start 01/05/17 at 11:00 Fentanyl 100 ml @ 2.5 mls/hr TITRATE IV Last administered on 01/07/17 02:25; Admin Dose 7.5 MLS/HR; Start 01/06/17 at 09:30 Norepinephrine/ Dextrose (Levophed/D5W) 500 ml @ 0 mls/hr TITRATE IV ; Start 04/12 at 13:30 Bumetanide 1 mg 1 mg BID IV Last administered on 01/13/17 21:06; Admin Dose 1 MG; Start 01/08/17 at 09:00; Status Future Hold Propofol (Diprivan) 100 ml @ 2.19 mls/hr Q12H IV Last administered on 07:04; Admin Dose 15.28 MLS/HR; Start 01/08/17 at 16:00 Miscellaneous Information (*Order Clarification Bulletin) FULVESTRANT 250 MG/5 ML SYG: PLE... Q8H XX ; Start 01/26/17 at 09:00 Acetaminophen (Tylenol Tab) 650 mg Q6H PRN NGT PAIN AND OR ELEVATED TEMP; Start 01/17/17 at 22:30 Apixaban (Eliquis) 2.5 mg BID NGT Last administered on 01/18/17 08:20; Admin Dose 2.5 MG; Start 01/17/17 at 21:00; Status Future Hold Ascorbic Acid (Vitamin C) 500 mg BID NGT Last administered on 01/25/17 09:31; Admin Dose 500 MG; Start 01/17/17 at 21:00 Levothyroxine Sodium (Synthroid) 75 mcg DAILY@06 NGT Last administered on 05:47; Admin Dose 75 MCG; Start 01/18/17 at 06:00 Loratadine (Claritin) 10 mg DAILY NGT Last administered on 01/25/17 09:30; Admin Dose 10 MG; Start 01/18/17 at 09:00 Metoprolol Tartrate (Lopressor) 25 mg BID NGT Last administered on 01/25/17 09 :30; Admin Dose 25 MG; Start 01/17/17 at 21:00 Mirtazapine (Remeron) 15 mg HS NGT Last administered on 01/24/17 20:27; Admin Dose 15 MG; Start 01/17/17 at 21:00 Oxcarbazepine (Trileptal) 600 mg BID NGT Last administered on 01/25/17 09:30; Admin Dose 600 MG; Start 01/17/17 at 21:00 Senna (Senokot) 1 tab HS NGT Last administered on 01/24/17 20:27; Admin Dose 1 TAB; Start 01/17/17 at 21:00 Sertraline HCl (Zoloft) 75 mg DAILY NGT Last administered on 01/25/17 09:31; Admin Dose 75 MG; Start 01/18/17 at 09:00 Sildenafil Citrate (Revatio) 20 mg TID NGT Last administered on 01/25/17 13:37 ; Admin Dose 20 MG; Start 01/17/17 at 21:00 Docusate Sodium (Colace Liquid Cup) 100 mg BID NGT Last administered on 09:30; Admin Dose 100 MG; Start 01/17/17 at 21:00 Voriconazole (Vfend) 200 mg BID PO Last administered on 01/25/17 09:31; Admin Dose 200 MG; Start 01/19/17 at 21:00 Famotidine (Pepcid) 20 mg DAILY NGT Last administered on 01/25/17 09:30; Admin Dose 20 MG; Start 01/20/17 at 09:00 Lorazepam (Ativan) 1 mg Q6H PRN IV anxiety Last administered on 01/23/17 17:49 ; Admin Dose 1 MG; Start 01/22/17 at 09:00 Tacrolimus (Prograf) 2 mg QPM NGT Last administered on 01/24/17 23:19; Admin Dose 2 MG; Start 01/24/17 at 21:00 Insulin Glargine (Lantus) 14 unit BID@08,20 SC ; Start 01/25/17 at 20:00 Diagnostic Test (Pha) (Accu-Chek) 1 ea 02 XX ; Start 01/26/17 at 02:00 SHANICE DAVENPORT MD Jan 25, 2017 17:56
[2017-01-25] MEDS: SENNA TAB NGT SCH (20:06)
[2017-01-25] MEDS: MIRTAZAPINE 15 MG TAB NGT SCH (20:07)
[2017-01-26] VITALS (57 sets, daily range): BP systolic 97–188; BP diastolic 40–106; PULSE 71–132; RESP 5–22
[2017-01-26] MEDS: IPRATROPIUM (HFA) 12.9 GM INHALER INH SCH ×4 (01:31→20:31)
[2017-01-26] MEDS: ALBUTEROL 18 GM INHALER INH SCH ×4 (01:32→20:31)
[2017-01-26] MEDS ORDERED: ACCU-CHEK XX SCH (02:00)
[2017-01-26] MEDS: PROPOFOL 100 ML IV SCH ×2 (02:09→13:54)
[2017-01-26] MEDS: ACCU-CHEK XX SCH (02:09)
[2017-01-26] MEDS: LEVOTHYROXINE 75 MCG TAB NGT SCH (06:24)
[2017-01-26 06:25] LABS: INR 1.12; PROTIME 14.4 Sec (12.2-14.2); PT RATIO 1.1
[2017-01-26 06:26] LABS: PARTIAL THROMBOPLASTIN TIME 27.5 Sec (25.0-35.0)
[2017-01-26] MEDS: INSULIN ASPART [NOVOLOG] 3 ML PEN SC SCH ×4 (07:54→21:00)
[2017-01-26] MEDS: INSULIN GLARGINE [LANtus] 3 ML PEN SC SCH ×2 (08:00→20:00)
[2017-01-26 08:14] LABS: BASOPHILS % 0.2 % (0.0-2.0); EOSINOPHILS # 0.4 10^3/ul (0.0-0.5); EOSINOPHILS % 4.2 % (0.0-7.0); HEMATOCRIT 26.8 % (37.0-47.0); HEMOGLOBIN 8.7 g/dl (12.0-16.0); LYMPHOCYTES # 0.7 10^3/ul (0.8-2.9); LYMPHOCYTES % 6.7 % (15.0-51.0); MEAN CORPUSCULAR HEMOGLOBIN 30.3 pg (29.0-33.0); MEAN CORPUSCULAR HGB CONC 32.5 g/dl (32.0-37.0); MEAN CORPUSCULAR VOLUME 93.4 fl (82.0-101.0); MEAN PLATELET VOLUME 9.6 fl (7.4-10.4); MONOCYTE # 0.6 10^3/ul (0.3-0.9); MONOCYTES % 5.8 % (0.0-11.0); NEUTROPHIL # 8.3 10^3/ul (1.6-7.5); PLATELET COUNT 217 10^3/UL (140-415); RED BLOOD COUNT 2.87 10^6/ul (4.20-5.40); RED CELL DISTRIBUTION WIDTH 14.9 % (11.5-14.5); WHITE BLOOD COUNT 10.2 10^3/ul (4.8-10.8)
[2017-01-26 08:36] LABS: CALCIUM 9.5 mg/dl (8.4-10.2); CREATININE 3.7 mg/dl (0.44-1.00); POTASSIUM 4.8 mmol/L (3.5-5.1)
[2017-01-26] MEDS: FULVESTRANT 250 MG/5 ML XX SCH ×2 (09:00→17:00)
[2017-01-26] MEDS ORDERED: LIDOCAINE 1% (MPF) 5 ML VIAL SC ONE (09:30)
[2017-01-26] MEDS: BUDESONIDE (NEB) 0.25 MG/2 ML AMP NEB SCH ×2 (09:50→20:32)
--- NOTE | 2017-01-26 09:52 | PN ---
DATE: 01/26/2017 SUBJECTIVE DATA: The patient remains on ventilatory support, pending trach placement. No other acute events noted. No hemoptysis, hematemesis, hematochezia. OBJECTIVE DATA: VITAL SIGNS: Blood pressure is 134/78, respirations 11, pulse 87, temperature 98.6. HEENT: Head is normocephalic. NECK: Supple. HEART: Regular rate. LUNGS: Diminished breath sounds at the base. ABDOMEN: Soft, nontender to palpation. No rebound or guarding. EXTREMITIES: Negative for clubbing, cyanosis. Positive edema. DERMATOLOGIC: Clean. No rashes. MUSCULOSKELETAL: No joint effusion. NEUROLOGIC: No change in exam. MEDICATIONS: Reviewed. LABORATORY AND DIAGNOSTIC DATA: From 01/25/2017 was reviewed. Laboratory data from 01/26/2017 is pending. ASSESSMENT AND PLAN: 1. Anuric acute kidney injury on top of chronic allograft failure. Etiology secondary to acute tubular necrosis and sepsis. The patient is currently dialysis dependent. There was no evidence of recovery. Continue hemodialysis. 2. Hyponatremia. Continue dialysis, 140 sodium bath. 3. Paroxysmal atrial fibrillation. Currently sinus rhythm. 4. Sepsis status post shock secondary to pneumonia. 5. Urinary tract infection. The patient is completing antifungal therapy. 6. History of end-stage renal disease. Status post renal transplant with chronic allograft failure. The patient is currently in acute kidney injury as stated above. Continue medical management. Continue current immunosuppressive regimen. 7. Hypothyroidism. Continue Synthroid. 8. Anemia. Monitor hemoglobin and hematocrit levels. 9. Diabetes. Continue current insulin regimen. 10. Pulmonary hypertension. Continue current medical management. 11. Ventilatory-dependent respiratory failure. Vent settings and ABGs reviewed. The patient is pending trach placement. 12. Dysphagia status post percutaneous endoscopic gastrostomy. Continue tube feeding. 13. History of breast cancer. Follow up with Hematology. 14. Gastrointestinal and deep venous thrombosis prophylaxis. 15. Bilateral pleural effusions. 16. Hypothyroidism. Continue Synthroid. Dictated By: Cameron Rosenthal DO /[email or web address]/[email or web address] /Document#: [id number]
[2017-01-26] MEDS: DOCUSATE SODIUM 10 MG/ML (10ML CUP) NGT SCH (09:55)
[2017-01-26] MEDS: predniSONE 1 MG TAB PO SCH (09:55)
[2017-01-26] MEDS: FLUTICASONE 0.05% 16 GM NAS SPRAY NASAL SCH (09:55)
[2017-01-26] MEDS: TACROLIMUS 1 MG CAP NGT SCH ×2 (09:55→21:08)
[2017-01-26] MEDS: OXCARBAZEPINE 300 MG TAB NGT SCH ×2 (09:56→21:07)
[2017-01-26] MEDS: FAMOTIDINE 20 MG TAB NGT SCH (09:56)
[2017-01-26] MEDS: SERTRALINE 50 MG TAB NGT SCH (09:56)
[2017-01-26] MEDS: ASCORBIC ACID 500 MG TAB NGT SCH ×2 (09:56→21:07)
[2017-01-26] MEDS: METOPROLOL 25 MG TAB NGT SCH ×2 (09:56→21:08)
[2017-01-26] MEDS: predniSONE 5 MG TAB PO SCH (09:57)
[2017-01-26] MEDS: LORATADINE 10 MG TAB NGT SCH (09:57)
[2017-01-26] MEDS: BISACODYL 10 MG SUPP PR SCH (09:57)
[2017-01-26] MEDS: VORICONAZOLE 200 MG TAB PO SCH ×2 (09:57→21:08)
[2017-01-26] MEDS: BALSAM PERU/CASTOR OIL 60 GM TUBE TOP SCH (09:58)
[2017-01-26] MEDS: SILDENAFIL 20 MG TAB NGT SCH ×3 (10:02→23:01)
--- NOTE | 2017-01-26 10:16 | CONS ---
Date/Time of Note Date/Time of Note DATE: 01/26/17 TIME: 10:14 Consult Date/Type/Reason Admit Date/Time Jan 05, 2017 at 00:15 Initial Consult Date 01/05/17 Type of Consultation: Pulmonary Ordering Provider: SUSAN SIMENTAL DO Subjective Patient stable this morning intubated sedated on mechanical ventilation pending tracheostomy Objective Vital Signs Date Time Temp Pulse Resp B/P Pulse Ox O2 Delivery O2 Flow Rate FiO2 01/26/17 08:30 94 14 164/71 99 Mechanical Ventilator 01/26/17 08:00 98.1 01/26/17 08:00 30 Intake and Output 01/25/17 01/25/17 01/26/17 15:00 23:00 07:00 Intake Total 370 ml 100 ml 0 ml Output Total 15 ml 5 ml Balance 355 ml 95 ml 0 ml Exam PHYSICAL EXAMINATION GENERAL: Elderly lady intubated on mechanical ventilation, opens eyes and appears somewhat agitated. Orally intubated. VITAL SIGNS: see below. HEENT: Pupils equal, round, and reactive to light. CARDIAC: S1, S2, 1/6 systolic ejection murmur CHEST: Diminished air entry bilaterally. ABDOMEN: Mildly distended. Bowel sounds present no guarding or rebound EXTREMITIES: No cyanosis, clubbing edema +1 NEUROLOGIC: Generalized weakness Results/Medications Result Diagram: 01/26/17 0759 01/26/17 0757 Results 24 hrs Laboratory Tests Test 01/25/17 13:34 01/25/17 17:25 01/25/17 20:04 01/26/17 01:45 Bedside Glucose 262 H 121 85 132 Test 01/26/17 04:38 01/26/17 04:45 01/26/17 07:45 01/26/17 07:57 Prothrombin Time 14.4 H Prothrombin Time Ratio 1.1 INR International Normalized Ratio 1.12 Activated Partial Thromboplast Time 27.5 Lactic Acid Level 0.7 Bedside Glucose 165 Sodium Level 129 L Potassium Level 4.8 Chloride Level 96 L Carbon Dioxide Level 25 Anion Gap 13 Blood Urea Nitrogen 74 H Creatinine 3.70 H Glucose Level 157 Calcium Level 9.5 Test 01/26/17 07:59 White Blood Count 10.2 Red Blood Count 2.87 L Hemoglobin 8.7 L Hematocrit 26.8 L Mean Corpuscular Volume 93.4 Mean Corpuscular Hemoglobin 30.3 Mean Corpuscular Hemoglobin Concent 32.5 Red Cell Distribution Width 14.9 H Platelet Count 217 Mean Platelet Volume 9.6 Neutrophils % 82.0 H Lymphocytes % 6.7 L Monocytes % 5.8 Eosinophils % 4.2 Basophils % 0.2 Nucleated Red Blood Cells % 0.0 Neutrophils # 8.3 H Lymphocytes # 0.7 L Monocytes # 0.6 Eosinophils # 0.4 Basophils # 0.0 Nucleated Red Blood Cells # 0.0 Medications Current Medications Naloxone HCl (Narcan) 0.4 mg Q4 PRN IV SEDATION; Start 01/05/17 at 01:30 Bisacodyl (Dulcolax Supp) 10 mg DAILY NE Last administered on 01/26/17 09:57; Admin Dose 10 MG; Start 01/06/17 at 09:00 Budesonide (Pulmicort (Neb)) 0.25 mg BID NEB Last administered on 01/26/17 09: 50; Admin Dose 0.25 MG; Start 01/05/17 at 10:30 Fluticasone Propionate (Flonase 0.05% Nasal) 1 spray DAILY NASAL Last administered on 01/26/17 09:55; Admin Dose 1 SPRAY; Start 01/05/17 at 11:00 Fulvestrant (Faslodex) 500 mg Q28D IM ; Start 01/29/17 at 09:00 Magnesium Hydroxide (Milk Of Mag) 30 ml BID PRN PO CONSTIPATION Last administered on 01/16/17 09:09; Admin Dose 30 ML; Start 01/05/17 at 10:30 Nitroglycerin (Nitroglycerin 2% Oint) 0.5 inch Q6 PRN TD CHEST PAIN; Start 03/13 at 10:30 Ondansetron HCl (Zofran Inj) 4 mg Q6H PRN IV NAUSEA Last administered on 17:26; Admin Dose 4 MG; Start 01/05/17 at 10:30 Prednisone (Prednisone) 5 mg DAILY PO Last administered on 01/26/17 09:57; Admin Dose 5 MG; Start 01/05/17 at 12:00 Prednisone (Prednisone) 3 mg DAILY PO Last administered on 01/26/17 09:55; Admin Dose 3 MG; Start 01/05/17 at 12:00 Miscellaneous Information 1 ea NOTE XX ; Start 01/05/17 at 11:00 Glucose (Glutose) 15 gm Q15M PRN PO DECREASED GLUCOSE; Start 01/05/17 at 11:00 Glucose (Glutose) 22.5 gm Q15M PRN PO DECREASED GLUCOSE; Start 01/05/17 at 11: 00 Dextrose (D50w Syringe) 25 ml Q15M PRN IV DECREASED GLUCOSE Last administered on 01/23/17 03:45; Admin Dose 25 ML; Start 01/05/17 at 11:00 Dextrose (D50w Syringe) 50 ml Q15M PRN IV DECREASED GLUCOSE Last administered on 01/08/17 21:33; Admin Dose 50 ML; Start 01/05/17 at 11:00 Glucagon (Glucagen) 1 mg Q15M PRN IM DECREASED GLUCOSE Last administered on 21:08; Admin Dose 1 MG; Start 01/05/17 at 11:00 Glucose 15 gm 15 gm Q15M PRN BUCCAL DECREASED GLUCOSE Last administered on 01/23 21:36; Admin Dose 15 GM; Start 01/05/17 at 11:00 Fentanyl 100 ml @ 2.5 mls/hr TITRATE IV Last administered on 01/07/17 02:25; Admin Dose 7.5 MLS/HR; Start 01/06/17 at 09:30 Norepinephrine/ Dextrose (Levophed/D5W) 500 ml @ 0 mls/hr TITRATE IV ; Start 04/12 at 13:30 Bumetanide 1 mg 1 mg BID IV Last administered on 01/13/17 21:06; Admin Dose 1 MG; Start 01/08/17 at 09:00; Status Future Hold Propofol (Diprivan) 100 ml @ 2.19 mls/hr Q12H IV Last administered on 07:04; Admin Dose 15.28 MLS/HR; Start 01/08/17 at 16:00 Miscellaneous Information (*Order Clarification Bulletin) FULVESTRANT 250 MG/5 ML SYG: PLE... Q8H XX ; Start 01/26/17 at 09:00 Acetaminophen (Tylenol Tab) 650 mg Q6H PRN NGT PAIN AND OR ELEVATED TEMP; Start 01/17/17 at 22:30 Apixaban (Eliquis) 2.5 mg BID NGT Last administered on 01/18/17 08:20; Admin Dose 2.5 MG; Start 01/17/17 at 21:00; Status Future Hold Ascorbic Acid (Vitamin C) 500 mg BID NGT Last administered on 01/26/17 09:56; Admin Dose 500 MG; Start 01/17/17 at 21:00 Levothyroxine Sodium (Synthroid) 75 mcg DAILY@06 NGT Last administered on 06:24; Admin Dose 75 MCG; Start 01/18/17 at 06:00 Loratadine (Claritin) 10 mg DAILY NGT Last administered on 01/26/17 09:57; Admin Dose 10 MG; Start 01/18/17 at 09:00 Metoprolol Tartrate (Lopressor) 25 mg BID NGT Last administered on 01/26/17 09 :56; Admin Dose 25 MG; Start 01/17/17 at 21:00 Mirtazapine (Remeron) 15 mg HS NGT Last administered on 01/25/17 20:07; Admin Dose 15 MG; Start 01/17/17 at 21:00 Oxcarbazepine (Trileptal) 600 mg BID NGT Last administered on 01/26/17 09:56; Admin Dose 600 MG; Start 01/17/17 at 21:00 Senna (Senokot) 1 tab HS NGT Last administered on 01/25/17 20:06; Admin Dose 1 TAB; Start 01/17/17 at 21:00 Sertraline HCl (Zoloft) 75 mg DAILY NGT Last administered on 01/26/17 09:56; Admin Dose 75 MG; Start 01/18/17 at 09:00 Sildenafil Citrate (Revatio) 20 mg TID NGT Last administered on 01/26/17 10:02 ; Admin Dose 20 MG; Start 01/17/17 at 21:00 Docusate Sodium (Colace Liquid Cup) 100 mg BID NGT Last administered on 09:55; Admin Dose 100 MG; Start 01/17/17 at 21:00 Voriconazole (Vfend) 200 mg BID PO Last administered on 01/26/17 09:57; Admin Dose 200 MG; Start 01/19/17 at 21:00 Famotidine (Pepcid) 20 mg DAILY NGT Last administered on 01/26/17 09:56; Admin Dose 20 MG; Start 01/20/17 at 09:00 Lorazepam (Ativan) 1 mg Q6H PRN IV anxiety Last administered on 01/23/17 17:49 ; Admin Dose 1 MG; Start 01/22/17 at 09:00 Tacrolimus (Prograf) 2 mg QPM NGT Last administered on 01/25/17 20:07; Admin Dose 2 MG; Start 01/24/17 at 21:00 Insulin Glargine (Lantus) 14 unit BID@08,20 SC Last administered on 01/25/17 20:09; Admin Dose 14 UNIT; Start 01/25/17 at 20:00 Diagnostic Test (Pha) (Accu-Chek) 1 ea 02 XX Last administered on 01/26/17 02: 09; Admin Dose 1 EA; Start 01/26/17 at 02:00 Assessment/Plan Chief Complaint/Hosp Course IMPRESSION: 1. Hypoxemic respiratory failure. Status post thoracentesis. Failed multiple CPAP weaning trials pending tracheostomy, scheduled for today. 2. Possible altered mental status secondary to opioids. Significant anxiety component. 3. History of renal transplant. Renal insufficiency. Hyponatremia. 4. Dysphagia now with G-tube 5. Improved leukocytosis PLAN: 1. Continue supportive care, pending tracheostomy, 2. Decrease sedation as tolerated. 3. Continue ID recommendations 4. Renal recommendations. 5. DVT and GI prophylaxis. 6. Tube feeding once tracheostomy placed Critical care time 40 minutes. Prognosis guarded. Problems: LESA SAMUELS MD, [facility] Jan 26, 2017 10:16
--- NOTE | 2017-01-26 14:18 | CONS ---
Date/Time of Note Date/Time of Note DATE: 01/26/17 TIME: 14:17 Consult Date/Type/Reason Admit Date/Time Jan 05, 2017 at 00:15 Initial Consult Date 01/05/17 Type of Consultation: CARDIOLOGY Ordering Provider: SUSAN SIMENTAL DO Subjective CARDIOLOGY FOLLOW UP NOTE: D/W Staff and rhythm was reviewed. pt has remained in Afib BUT HR has been stable pt still remains on vent. NO reports of any chest pain or pressure S/P PEG 01/19/17 still Awaiting trach pt is nonverbal on vent. OBJECTIVE: General: intubated on vent. HEENT: NC/AT. pupils are equal. round. NECK: NO JVD. no stridor. CV:irregularly irregular. systolic murmur; no gallop or rubs. PULM: no wheezing, + mild rhonchi. GI: SOFT, NT, ND, no rebound or guarding S/P PEG Extremity: trace B/L LE edema. no clubbing. neuro: opens her eyes. . Psych: unable to assess rectal: deferred : normal ECHO 12/16/16: Personally reviewed 1. Normal left ventricular systolic function. Normal left ventricular cavity size. Moderate concentric left ventricular hypertrophy. Ejection fraction is visually estimated at 65 %. Abnormal Diastolic Function. 2. There is moderate enlargement of left atrium. 3. Mild mitral leaflet calcification. Mild mitral annular calcification. Trace mitral regurgitation. 4. Aortic sclerosis without stenosis. Trace aortic valve regurgitation. 5. Normal appearance of the tricuspid valve. Estimated peak PA systolic pressure 38 mmHg. There is mild tricuspid regurgitation. Objective Vital Signs Date Time Temp Pulse Resp B/P Pulse Ox O2 Delivery O2 Flow Rate FiO2 01/26/17 13:56 103 01/26/17 13:05 12 98 30 01/26/17 12:00 98.4 168/93 Mechanical Ventilator Intake and Output 01/25/17 01/25/17 01/26/17 15:00 23:00 07:00 Intake Total 370 ml 100 ml 0 ml Output Total 15 ml 5 ml Balance 355 ml 95 ml 0 ml Results/Medications Result Diagram: 01/26/17 0759 01/26/17 0757 Results 24 hrs Laboratory Tests Test 01/25/17 17:25 01/25/17 20:04 01/26/17 01:45 01/26/17 04:38 Bedside Glucose 121 85 132 Prothrombin Time 14.4 H Prothrombin Time Ratio 1.1 INR International Normalized Ratio 1.12 Activated Partial Thromboplast Time 27.5 Test 01/26/17 04:45 01/26/17 07:45 01/26/17 07:57 01/26/17 07:59 Lactic Acid Level 0.7 Bedside Glucose 165 Sodium Level 129 L Potassium Level 4.8 Chloride Level 96 L Carbon Dioxide Level 25 Anion Gap 13 Blood Urea Nitrogen 74 H Creatinine 3.70 H Glucose Level 157 Calcium Level 9.5 White Blood Count 10.2 Red Blood Count 2.87 L Hemoglobin 8.7 L Hematocrit 26.8 L Mean Corpuscular Volume 93.4 Mean Corpuscular Hemoglobin 30.3 Mean Corpuscular Hemoglobin Concent 32.5 Red Cell Distribution Width 14.9 H Platelet Count 217 Mean Platelet Volume 9.6 Neutrophils % 82.0 H Lymphocytes % 6.7 L Monocytes % 5.8 Eosinophils % 4.2 Basophils % 0.2 Nucleated Red Blood Cells % 0.0 Neutrophils # 8.3 H Lymphocytes # 0.7 L Monocytes # 0.6 Eosinophils # 0.4 Basophils # 0.0 Nucleated Red Blood Cells # 0.0 Test 01/26/17 14:11 Bedside Glucose 200 Medications Current Medications Naloxone HCl (Narcan) 0.4 mg Q4 PRN IV SEDATION; Start 01/05/17 at 01:30 Bisacodyl (Dulcolax Supp) 10 mg DAILY DC Last administered on 01/26/17 09:57; Admin Dose 10 MG; Start 01/06/17 at 09:00 Budesonide (Pulmicort (Neb)) 0.25 mg BID NEB Last administered on 01/26/17 09: 50; Admin Dose 0.25 MG; Start 01/05/17 at 10:30 Fluticasone Propionate (Flonase 0.05% Nasal) 1 spray DAILY NASAL Last administered on 01/26/17 09:55; Admin Dose 1 SPRAY; Start 01/05/17 at 11:00 Fulvestrant (Faslodex) 500 mg Q28D IM ; Start 01/29/17 at 09:00 Magnesium Hydroxide (Milk Of Mag) 30 ml BID PRN PO CONSTIPATION Last administered on 01/16/17 09:09; Admin Dose 30 ML; Start 01/05/17 at 10:30 Nitroglycerin (Nitroglycerin 2% Oint) 0.5 inch Q6 PRN TD CHEST PAIN; Start 03/13 at 10:30 Ondansetron HCl (Zofran Inj) 4 mg Q6H PRN IV NAUSEA Last administered on 17:26; Admin Dose 4 MG; Start 01/05/17 at 10:30 Prednisone (Prednisone) 5 mg DAILY PO Last administered on 01/26/17 09:57; Admin Dose 5 MG; Start 01/05/17 at 12:00 Prednisone (Prednisone) 3 mg DAILY PO Last administered on 01/26/17 09:55; Admin Dose 3 MG; Start 01/05/17 at 12:00 Miscellaneous Information 1 ea NOTE XX ; Start 01/05/17 at 11:00 Glucose (Glutose) 15 gm Q15M PRN PO DECREASED GLUCOSE; Start 01/05/17 at 11:00 Glucose (Glutose) 22.5 gm Q15M PRN PO DECREASED GLUCOSE; Start 01/05/17 at 11: 00 Dextrose (D50w Syringe) 25 ml Q15M PRN IV DECREASED GLUCOSE Last administered on 01/23/17 03:45; Admin Dose 25 ML; Start 01/05/17 at 11:00 Dextrose (D50w Syringe) 50 ml Q15M PRN IV DECREASED GLUCOSE Last administered on 01/08/17 21:33; Admin Dose 50 ML; Start 01/05/17 at 11:00 Glucagon (Glucagen) 1 mg Q15M PRN IM DECREASED GLUCOSE Last administered on 21:08; Admin Dose 1 MG; Start 01/05/17 at 11:00 Glucose 15 gm 15 gm Q15M PRN BUCCAL DECREASED GLUCOSE Last administered on 01/23 21:36; Admin Dose 15 GM; Start 01/05/17 at 11:00 Fentanyl 100 ml @ 2.5 mls/hr TITRATE IV Last administered on 01/07/17 02:25; Admin Dose 7.5 MLS/HR; Start 01/06/17 at 09:30 Norepinephrine/ Dextrose (Levophed/D5W) 500 ml @ 0 mls/hr TITRATE IV ; Start 04/12 at 13:30 Bumetanide 1 mg 1 mg BID IV Last administered on 9/19/17at 21:06; Admin Dose 1 MG; Start 01/08/17 at 09:00; Status Future Hold Propofol (Diprivan) 100 ml @ 2.19 mls/hr Q12H IV Last administered on 07:04; Admin Dose 15.28 MLS/HR; Start 01/08/17 at 16:00 Miscellaneous Information (*Order Clarification Bulletin) FULVESTRANT 250 MG/5 ML SYG: PLE... Q8H XX ; Start 01/26/17 at 09:00 Acetaminophen (Tylenol Tab) 650 mg Q6H PRN NGT PAIN AND OR ELEVATED TEMP; Start 01/17/17 at 22:30 Apixaban (Eliquis) 2.5 mg BID NGT Last administered on 01/18/17 08:20; Admin Dose 2.5 MG; Start 01/17/17 at 21:00; Status Future Hold Ascorbic Acid (Vitamin C) 500 mg BID NGT Last administered on 01/26/17 09:56; Admin Dose 500 MG; Start 01/17/17 at 21:00 Levothyroxine Sodium (Synthroid) 75 mcg DAILY@06 NGT Last administered on 06:24; Admin Dose 75 MCG; Start 01/18/17 at 06:00 Loratadine (Claritin) 10 mg DAILY NGT Last administered on 01/26/17 09:57; Admin Dose 10 MG; Start 01/18/17 at 09:00 Metoprolol Tartrate (Lopressor) 25 mg BID NGT Last administered on 01/26/17 09 :56; Admin Dose 25 MG; Start 01/17/17 at 21:00 Mirtazapine (Remeron) 15 mg HS NGT Last administered on 01/25/17 20:07; Admin Dose 15 MG; Start 01/17/17 at 21:00 Oxcarbazepine (Trileptal) 600 mg BID NGT Last administered on 01/26/17 09:56; Admin Dose 600 MG; Start 01/17/17 at 21:00 Senna (Senokot) 1 tab HS NGT Last administered on 01/25/17 20:06; Admin Dose 1 TAB; Start 01/17/17 at 21:00 Sertraline HCl (Zoloft) 75 mg DAILY NGT Last administered on 01/26/17 09:56; Admin Dose 75 MG; Start 01/18/17 at 09:00 Sildenafil Citrate (Revatio) 20 mg TID NGT Last administered on 01/26/17 10:02 ; Admin Dose 20 MG; Start 01/17/17 at 21:00 Docusate Sodium (Colace Liquid Cup) 100 mg BID NGT Last administered on 09:55; Admin Dose 100 MG; Start 01/17/17 at 21:00 Voriconazole (Vfend) 200 mg BID PO Last administered on 01/26/17 09:57; Admin Dose 200 MG; Start 01/19/17 at 21:00 Famotidine (Pepcid) 20 mg DAILY NGT Last administered on 01/26/17 09:56; Admin Dose 20 MG; Start 01/20/17 at 09:00 Lorazepam (Ativan) 1 mg Q6H PRN IV anxiety Last administered on 01/23/17 17:49 ; Admin Dose 1 MG; Start 01/22/17 at 09:00 Tacrolimus (Prograf) 2 mg QPM NGT Last administered on 01/25/17 20:07; Admin Dose 2 MG; Start 01/24/17 at 21:00 Insulin Glargine (Lantus) 14 unit BID@08,20 SC Last administered on 01/25/17 20:09; Admin Dose 14 UNIT; Start 01/25/17 at 20:00 Diagnostic Test (Pha) (Accu-Chek) 1 ea 02 XX Last administered on 01/26/17 02: 09; Admin Dose 1 EA; Start 01/26/17 at 02:00 Assessment/Plan Chief Complaint/Hosp Course Assessment: 1. s/p cardiopulmonary arrest: Most likely due to pulmonary arrest 2. P afib: now remains in persistent Afib. 3. History of renal failure status post renal transplant: now with KATI on CKD: currently requiring HD. 4. Acute on chronic hypoxemic hypercapnic respiratory failure status post reintubation: currently on the vent: AWAITING TRACH. 5. Shock: resolved now. 6. ANEMIA 7. breast cancer 8. history of HTN: 9. anxiety 10. DM 11. Hypothyroidism: on synthroid. 12. pleural effusion : s/p thoracentesis 13. Dysphagia: s/p PEG Recommendations: vent support for now anti- rejection medications to be adjusted as per renal team. HD as per renal. cont DM control thyroid supplement betablocker as tolerated. correct lytes prn cont tele monitoring transfusion prn cont ICU care. eliquis is on hold now for trach and anemia to be resumed post trach, Thank you for this referral I will continue to follow along with you. AUGUSTINA MALDONADO MD [facility] Problems: AUGUSTINA MALDONADO MD Jan 26, 2017 14:18
[2017-01-26] MEDS: ONDANSETRON 4 MG INJ IV PRN (14:23)
[2017-01-26] MEDS ORDERED: METOCLOPRAMIDE 10 MG INJ IV PRN (15:30)
[2017-01-26] MEDS: LORAZEPAM 2 MG INJ IV PRN (16:24)
--- NOTE | 2017-01-26 17:43 | RADRPT ---
PROCEDURE: XR Abdomen. CLINICAL INDICATION: Abdomen pain. TECHNIQUE: AP supine abdomen x-ray. COMPARISON: 01/15/2017. FINDINGS: The gastrostomy tube is overlying the stomach. There is gaseous distension of the stomach. Gas is present in nondilated small bowel. There are no abnormal calcifications overlying the urinary tracts. There are degenerative changes of the spine. Vascular calcifications are present consistent with ath erosclerosis. IMPRESSION: 1. Gastrostomy tube overlies the stomach. 2. Gaseous distension of the stomach indicating the tube may not be in the stomach. Clinical correl ation advised. 3. Gas in nondilated small bowel. 4. Degenerative changes of the spine. 5. Atherosclerosis. RPTAT: QQ .Jarvis Block MD, MD Date Time Electronically viewed and signed by .Jarvis Block MD, on 01/26/2017 17:43 .R/
--- NOTE | 2017-01-26 17:54 | RADRPT ---
PROCEDURE: Ultrasound guidance for placement of needle in right upper extremity vein. CLINICAL INDICATION: Venous access. TECHNIQUE: Limited sonography of the right upper extremity was performed. Ultrasound images were recorded and stored in the patient's medical record. COMPARISON: None. FINDINGS: The ultrasound images demonstrate a patent right upper extremity vein. The PICC line was inserted b y the PICC line nurse. IMPRESSION: 1. Ultrasound guidance for a needle placement in a right upper extremity vein. 2. The visualized right upper extremity vein is patent. RPTAT: QQ .Jarvis Block MD, MD Date Time Electronically viewed and signed by .Jarvis Block MD, MD on 01/26/2017 17:54 .R/
--- NOTE | 2017-01-26 18:10 | PN ---
DATE: 01/26/2017 SUBJECTIVE DATA: The patient is awake, looks comfortable, afebrile. T-max yesterday was 100, T-current 98.1, pulse 94, respirations 14, blood pressure 164/71, saturation 99 on 30 FiO2. LABORATORY AND DIAGNOSTIC DATA: WBC 10.2, H and H 8.7 and 26.8, platelets 217, neutrophils 80, BUN 74, creatinine 3.70. DIAGNOSTICS: Chest x-ray yesterday revealed slightly larger bilateral pleural effusions. INDWELLING: The patient has endotracheal tube PEG, right IJ Bandar catheter ANTIMICROBIALS: Voriconazole. PHYSICAL EXAMINATION: GENERAL: This is a chronically ill-appearing, elderly woman, who is awake, in no distress. HEENT: Head atraumatic, normocephalic. Sclerae anicteric. Buccal mucosa dry. NECK: Supple. Trachea midline. CHEST: Rise symmetrical. Breath sounds diminished at the bases. HEART: S1, S2. ABDOMEN: Soft, bowel sounds present. EXTREMITIES: With trace dependent edema. ASSESSMENT: 1. Status post septic shock. 2. Status post UTI pneumonia. 3. Respiratory failure, recurrent. The patient was intubated, failed multiple weanings, pending trach. 4. Acute on chronic kidney disease, on hemodialysis. 5. History of kidney transplant, remains on immunosuppressive therapy. 6. Anemia. PLAN: The patient remains stable. Continue on voriconazole for urinary tract infection for a couple more days. Pending tracheostomy. Dictated By: Artis Castañeda NP /berkley/[email or web address] /Document#: [id number]
--- NOTE | 2017-01-26 18:58 | CONS ---
Date/Time of Note Date/Time of Note DATE: 01/26/17 TIME: 18:56 Assessment/Plan Assessment/Plan Chief Complaint/Hosp Course History of breast cancer with lung metastasis. The patient is on medical management. on Faslodex as outpt Anemia. Monitor hemoglobin and hematocrit levels. 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 Congestive heart failure exacerbation. Hypothyroidism. Diabetes. Continue current insulin regimen. Pulmonary hypertension. Depression. Problems: Consultation Date/Type/Reason Admit Date/Time Jan 05, 2017 at 00:15 Initial Consult Date 01/05/17 [facility] Referring Provider: SUSAN SIMENTAL DO 24 HR Interval Summary Free Text/Dictation all noted no new events on vent sedated pending tracheostomy Exam/Review of Systems Vital Signs Vitals Vital Signs Date Time Temp Pulse Resp B/P Pulse Ox O2 Delivery O2 Flow Rate FiO2 01/26/17 18:30 99 16 174/98 100 01/26/17 18:00 Mechanical Ventilator 01/26/17 16:50 30 01/26/17 16:00 98.0 Intake and Output 01/25/17 01/25/17 01/26/17 15:00 23:00 07:00 Intake Total 370 ml 100 ml 0 ml Output Total 15 ml 5 ml Balance 355 ml 95 ml 0 ml Exam HEENT: Head is normocephalic. NECK: Supple. HEART: Regular rate. LUNGS: Show diminished breath sounds base. Positive rhonchi. ABDOMEN: Soft, nontender to palpation. No rebound or guarding. EXTREMITIES: Negative for clubbing, cyanosis. No edema. DERMATOLOGIC: Clean. No rashes. MUSCULOSKELETAL: No joint effusion. NEUROLOGIC: No change in exam. Results Result Diagram: 01/26/17 0759 01/26/17 0757 Results 24 hrs Laboratory Tests Test 01/25/17 20:04 01/26/17 01:45 01/26/17 04:38 01/26/17 04:45 Bedside Glucose 85 132 Prothrombin Time 14.4 H Prothrombin Time Ratio 1.1 INR International Normalized Ratio 1.12 Activated Partial Thromboplast Time 27.5 Lactic Acid Level 0.7 Test 01/26/17 07:45 01/26/17 07:57 01/26/17 07:59 01/26/17 14:11 Bedside Glucose 165 200 Sodium Level 129 L Potassium Level 4.8 Chloride Level 96 L Carbon Dioxide Level 25 Anion Gap 13 Blood Urea Nitrogen 74 H Creatinine 3.70 H Glucose Level 157 Calcium Level 9.5 White Blood Count 10.2 Red Blood Count 2.87 L Hemoglobin 8.7 L Hematocrit 26.8 L Mean Corpuscular Volume 93.4 Mean Corpuscular Hemoglobin 30.3 Mean Corpuscular Hemoglobin Concent 32.5 Red Cell Distribution Width 14.9 H Platelet Count 217 Mean Platelet Volume 9.6 Neutrophils % 82.0 H Lymphocytes % 6.7 L Monocytes % 5.8 Eosinophils % 4.2 Basophils % 0.2 Nucleated Red Blood Cells % 0.0 Neutrophils # 8.3 H Lymphocytes # 0.7 L Monocytes # 0.6 Eosinophils # 0.4 Basophils # 0.0 Nucleated Red Blood Cells # 0.0 Test 01/26/17 17:55 Bedside Glucose 233 H Medications Medications Current Medications Naloxone HCl (Narcan) 0.4 mg Q4 PRN IV SEDATION; Start 01/05/17 at 01:30 Bisacodyl (Dulcolax Supp) 10 mg DAILY PA Last administered on 01/26/17 09:57; Admin Dose 10 MG; Start 01/06/17 at 09:00 Budesonide (Pulmicort (Neb)) 0.25 mg BID NEB Last administered on 01/26/17 09: 50; Admin Dose 0.25 MG; Start 01/05/17 at 10:30 Fluticasone Propionate (Flonase 0.05% Nasal) 1 spray DAILY NASAL Last administered on 01/26/17 09:55; Admin Dose 1 SPRAY; Start 01/05/17 at 11:00 Fulvestrant (Faslodex) 500 mg Q28D IM ; Start 01/29/17 at 09:00 Magnesium Hydroxide (Milk Of Mag) 30 ml BID PRN PO CONSTIPATION Last administered on 01/16/17 09:09; Admin Dose 30 ML; Start 01/05/17 at 10:30 Nitroglycerin (Nitroglycerin 2% Oint) 0.5 inch Q6 PRN TD CHEST PAIN; Start 03/13 at 10:30 Ondansetron HCl (Zofran Inj) 4 mg Q6H PRN IV NAUSEA Last administered on 14:23; Admin Dose 4 MG; Start 01/05/17 at 10:30 Prednisone (Prednisone) 5 mg DAILY PO Last administered on 01/26/17 09:57; Admin Dose 5 MG; Start 01/05/17 at 12:00 Prednisone (Prednisone) 3 mg DAILY PO Last administered on 01/26/17 09:55; Admin Dose 3 MG; Start 01/05/17 at 12:00 Miscellaneous Information 1 ea NOTE XX ; Start 01/05/17 at 11:00 Glucose (Glutose) 15 gm Q15M PRN PO DECREASED GLUCOSE; Start 01/05/17 at 11:00 Glucose (Glutose) 22.5 gm Q15M PRN PO DECREASED GLUCOSE; Start 01/05/17 at 11: 00 Dextrose (D50w Syringe) 25 ml Q15M PRN IV DECREASED GLUCOSE Last administered on 01/23/17 03:45; Admin Dose 25 ML; Start 01/05/17 at 11:00 Dextrose (D50w Syringe) 50 ml Q15M PRN IV DECREASED GLUCOSE Last administered on 01/08/17 21:33; Admin Dose 50 ML; Start 01/05/17 at 11:00 Glucagon (Glucagen) 1 mg Q15M PRN IM DECREASED GLUCOSE Last administered on 21:08; Admin Dose 1 MG; Start 01/05/17 at 11:00 Glucose 15 gm 15 gm Q15M PRN BUCCAL DECREASED GLUCOSE Last administered on 01/23 21:36; Admin Dose 15 GM; Start 01/05/17 at 11:00 Fentanyl 100 ml @ 2.5 mls/hr TITRATE IV Last administered on 01/07/17 02:25; Admin Dose 7.5 MLS/HR; Start 01/06/17 at 09:30 Norepinephrine/ Dextrose (Levophed/D5W) 500 ml @ 0 mls/hr TITRATE IV ; Start 04/12 at 13:30 Bumetanide 1 mg 1 mg BID IV Last administered on 01/13/17 21:06; Admin Dose 1 MG; Start 01/08/17 at 09:00; Status Future Hold Propofol (Diprivan) 100 ml @ 2.19 mls/hr Q12H IV Last administered on 07:04; Admin Dose 15.28 MLS/HR; Start 01/08/17 at 16:00 Miscellaneous Information (*Order Clarification Bulletin) FULVESTRANT 250 MG/5 ML SYG: PLE... Q8H XX ; Start 01/26/17 at 09:00 Acetaminophen (Tylenol Tab) 650 mg Q6H PRN NGT PAIN AND OR ELEVATED TEMP; Start 01/17/17 at 22:30 Apixaban (Eliquis) 2.5 mg BID NGT Last administered on 01/18/17 08:20; Admin Dose 2.5 MG; Start 01/17/17 at 21:00; Status Future Hold Ascorbic Acid (Vitamin C) 500 mg BID NGT Last administered on 01/26/17 09:56; Admin Dose 500 MG; Start 01/17/17 at 21:00 Levothyroxine Sodium (Synthroid) 75 mcg DAILY@06 NGT Last administered on 06:24; Admin Dose 75 MCG; Start 01/18/17 at 06:00 Loratadine (Claritin) 10 mg DAILY NGT Last administered on 01/26/17 09:57; Admin Dose 10 MG; Start 01/18/17 at 09:00 Metoprolol Tartrate (Lopressor) 25 mg BID NGT Last administered on 01/26/17 09 :56; Admin Dose 25 MG; Start 01/17/17 at 21:00 Mirtazapine (Remeron) 15 mg HS NGT Last administered on 01/25/17 20:07; Admin Dose 15 MG; Start 01/17/17 at 21:00 Oxcarbazepine (Trileptal) 600 mg BID NGT Last administered on 01/26/17 09:56; Admin Dose 600 MG; Start 01/17/17 at 21:00 Senna (Senokot) 1 tab HS NGT Last administered on 01/25/17 20:06; Admin Dose 1 TAB; Start 01/17/17 at 21:00 Sertraline HCl (Zoloft) 75 mg DAILY NGT Last administered on 01/26/17 09:56; Admin Dose 75 MG; Start 01/18/17 at 09:00 Sildenafil Citrate (Revatio) 20 mg TID NGT Last administered on 01/26/17 10:02 ; Admin Dose 20 MG; Start 01/17/17 at 21:00 Docusate Sodium (Colace Liquid Cup) 100 mg BID NGT Last administered on 09:55; Admin Dose 100 MG; Start 01/17/17 at 21:00 Voriconazole (Vfend) 200 mg BID PO Last administered on 01/26/17 09:57; Admin Dose 200 MG; Start 01/19/17 at 21:00 Famotidine (Pepcid) 20 mg DAILY NGT Last administered on 01/26/17 09:56; Admin Dose 20 MG; Start 01/20/17 at 09:00 Lorazepam (Ativan) 1 mg Q6H PRN IV anxiety Last administered on 01/26/17 16:24 ; Admin Dose 1 MG; Start 01/22/17 at 09:00 Tacrolimus (Prograf) 2 mg QPM NGT Last administered on 01/25/17 20:07; Admin Dose 2 MG; Start 01/24/17 at 21:00 Insulin Glargine (Lantus) 14 unit BID@08,20 SC Last administered on 01/25/17 20:09; Admin Dose 14 UNIT; Start 01/25/17 at 20:00 Diagnostic Test (Pha) (Accu-Chek) 1 ea 02 XX Last administered on 01/26/17 02: 09; Admin Dose 1 EA; Start 01/26/17 at 02:00 Diagnostic Test (Pha) (Accu-Chek) 1 ea 02 XX ; Start 01/27/17 at 02:00 Insulin Aspart (Novolog Insulin Pen) NOVOLOG *MODERATE* ALGORI... Q4 SC Last administered on 01/26/17 18:00; Admin Dose 6 UNIT; Start 01/26/17 at 17:00 Metoclopramide HCl (Reglan) 5 mg Q8H PRN IV VOMITTING; Start 01/26/17 at 15:30 SHANICE DAVENPORT MD Jan 26, 2017 18:58
[2017-01-26] MEDS: MIRTAZAPINE 15 MG TAB NGT SCH (21:07)
[2017-01-27] VITALS (86 sets, daily range): BP systolic 70–186; BP diastolic 48–136; PULSE 73–112; RESP 4–37
[2017-01-27] MEDS: FULVESTRANT 250 MG/5 ML XX SCH ×2 (01:00→08:45)
[2017-01-27] MEDS: ALBUTEROL 18 GM INHALER INH SCH ×4 (01:43→19:51)
[2017-01-27] MEDS: IPRATROPIUM (HFA) 12.9 GM INHALER INH SCH ×4 (01:43→19:51)
[2017-01-27] MEDS: INSULIN ASPART [NOVOLOG] 3 ML PEN SC SCH ×6 (03:00→20:58)
[2017-01-27] MEDS: ACCU-CHEK XX SCH ×2 (03:00)
[2017-01-27] MEDS: PROPOFOL 100 ML IV SCH ×2 (04:00→16:00)
[2017-01-27 05:33] LABS: ABNORMAL IP MESSAGE 1; BASOPHILS % 0.2 % (0.0-2.0); EOSINOPHILS # 0.4 10^3/ul (0.0-0.5); EOSINOPHILS % 3.4 % (0.0-7.0); HEMATOCRIT 28.5 % (37.0-47.0); HEMOGLOBIN 8.9 g/dl (12.0-16.0); LYMPHOCYTES # 0.6 10^3/ul (0.8-2.9); LYMPHOCYTES % 5.4 % (15.0-51.0); MEAN CORPUSCULAR HEMOGLOBIN 29.2 pg (29.0-33.0); MEAN CORPUSCULAR HGB CONC 31.2 g/dl (32.0-37.0); MEAN CORPUSCULAR VOLUME 93.4 fl (82.0-101.0); MEAN PLATELET VOLUME 10.2 fl (7.4-10.4); MONOCYTE # 0.6 10^3/ul (0.3-0.9); MONOCYTES % 5.9 % (0.0-11.0); NEUTROPHIL # 8.6 10^3/ul (1.6-7.5); PLATELET COUNT 295 10^3/UL (140-415); RED BLOOD COUNT 3.05 10^6/ul (4.20-5.40); RED CELL DISTRIBUTION WIDTH 15.1 % (11.5-14.5); WHITE BLOOD COUNT 10.2 10^3/ul (4.8-10.8)
[2017-01-27 05:59] LABS: CALCIUM 9.2 mg/dl (8.4-10.2); CREATININE 2.83 mg/dl (0.44-1.00); MAGNESIUM 2.4 mg/dl (1.7-2.5); PHOSPHORUS 4.2 mg/dl (2.5-4.9); POTASSIUM 3.8 mmol/L (3.5-5.1)
[2017-01-27] MEDS: LEVOTHYROXINE 75 MCG TAB NGT SCH (06:00)
[2017-01-27 06:12] LABS: POSITIVE DIFF @See below
[2017-01-27] MEDS ORDERED: DEXTROSE 5%-0.9% NACL 1,000 ML IV SCH (07:00)
[2017-01-27] MEDS: INSULIN GLARGINE [LANtus] 3 ML PEN SC SCH ×2 (08:00→08:56)
--- NOTE | 2017-01-27 08:26 | PN ---
DATE: 01/27/2017 SUBJECTIVE DATA: The patient yesterday noted to have liquid stools. Cultures sent out for Clostridium difficile. No other acute events noted. The patient is pending trach placement. No hemoptysis, hematemesis, hematochezia. OBJECTIVE DATA: VITAL SIGNS: Blood pressure is 153/52, respirations 19, pulse 97, temperature 98.6. HEENT: Head is normocephalic. Pupils are reactive to light. NECK: Supple. HEART: Regular rate. LUNGS: Diminished breath sounds at the base. ABDOMEN: Soft, nontender to palpation. No rebound or guarding. EXTREMITIES: Negative for clubbing, cyanosis. No edema. DERMATOLOGIC: No rashes. MUSCULOSKELETAL: No joint effusions. NEUROLOGIC: No change in exam. MEDICATIONS: Reviewed. LABORATORY AND DIAGNOSTIC DATA: Shows sodium 132, BUN 48, creatinine 2.83. White count 10.2, hemoglobin 9.9, hematocrit 28.5, platelet count is 295. ASSESSMENT AND PLAN: 1. 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 Etiology secondary to acute tubular necrosis due to ischemic hypoperfusion, sepsis, shock. The patient is currently dialysis dependent. No signs of recovery. Continue intermittent hemodialysis. 2. Hyponatremia. Continue dialysis 140 sodium bath. 3. Paroxysmal atrial fibrillation. Currently in sinus rhythm. 4. Sepsis status post shock secondary to pneumonia. The patient is completing antibiotic course. 5. Fungal urinary tract infection. The patient is completing antifungal therapy. 6. History of end-stage renal disease. The patient is status post- renal transplant for chronic allograft failure. The patient is currently in acute kidney injury stated above. Continue medical management. Continue immunosuppressive regimen. 7. Hypothyroidism. Continue Synthroid. 8. Anemia. Monitor H and H levels. 9. Diabetes. Continue Accu-Cheks and insulin sliding scale. 10. Pulmonary hypertension. Continue medical management. 11. Ventilatory-dependent respiratory failure. Vent settings and ABGs have been reviewed. The patient is pending trach placement. 12. Dysphagia status post percutaneous endoscopic gastrostomy tube feeding. 13. History of breast cancer. Follow up with Hematology. Patient is on chemotherapy. 14. Bilateral pleural effusions. Status post thoracentesis. 15. Hypothyroidism. Continue Synthroid. 16. Gastrointestinal and deep venous thrombosis prophylaxis. Dictated By: Cameron Rosenthal DO /berkley/johnson /Document#: [id number]
[2017-01-27] MEDS: VORICONAZOLE 200 MG TAB PO SCH (08:42)
[2017-01-27] MEDS: BALSAM PERU/CASTOR OIL 60 GM TUBE TOP SCH (08:42)
[2017-01-27] MEDS: FAMOTIDINE 20 MG TAB NGT SCH (08:42)
[2017-01-27] MEDS: ASCORBIC ACID 500 MG TAB NGT SCH ×2 (08:42→20:57)
[2017-01-27] MEDS: FLUTICASONE 0.05% 16 GM NAS SPRAY NASAL SCH (08:42)
[2017-01-27] MEDS: predniSONE 5 MG TAB PO SCH (08:42)
[2017-01-27] MEDS: SERTRALINE 50 MG TAB NGT SCH (08:43)
[2017-01-27] MEDS: TACROLIMUS 1 MG CAP NGT SCH ×2 (08:43→20:57)
[2017-01-27] MEDS: predniSONE 1 MG TAB PO SCH (08:43)
[2017-01-27] MEDS: OXCARBAZEPINE 300 MG TAB NGT SCH ×2 (08:43→20:56)
[2017-01-27] MEDS: LORATADINE 10 MG TAB NGT SCH (08:43)
[2017-01-27] MEDS: SILDENAFIL 20 MG TAB NGT SCH ×3 (08:44→20:57)
[2017-01-27] MEDS: METOPROLOL 25 MG TAB NGT SCH ×2 (08:44→20:56)
[2017-01-27] MEDS: BUDESONIDE (NEB) 0.25 MG/2 ML AMP NEB SCH ×2 (09:34→19:51)
--- NOTE | 2017-01-27 11:12 | CONS ---
Date/Time of Note Date/Time of Note DATE: 01/27/17 TIME: 11:11 Consult Date/Type/Reason Admit Date/Time Jan 05, 2017 at 00:15 Initial Consult Date 01/05/17 Type of Consultation: Pulmonary Ordering Provider: SUSAN SIMENTAL DO Subjective Remains intubated sedated on mechanical ventilation pending tracheostomy. Objective Vital Signs Date Time Temp Pulse Resp B/P Pulse Ox O2 Delivery O2 Flow Rate FiO2 01/27/17 08:00 30 01/27/17 08:00 77 01/27/17 06:15 22 100 01/27/17 06:00 153/52 Mechanical Ventilator 01/27/17 04:00 98.3 Intake and Output 01/26/17 01/26/17 01/27/17 15:00 23:00 07:00 Intake Total 400 ml 30 ml 60 ml Output Total 3030 ml 50 ml 30 ml Balance -2630 ml -20 ml 30 ml Exam GENERAL: Elderly lady comfortable at rest no acute distress, continues mechanical ventilation VITAL SIGNS: per chart NECK: Supple. No JVD or lymphadenopathy. CARDIAC EXAM: S1, S2. No added sounds or murmurs. CHEST: Diminished air entry bilaterally no rales or wheezes ABDOMEN: Soft, nontender. No guarding or rebound. EXTREMITIES: No cyanosis, clubbing or edema. NEUROLOGIC: Generalized weakness. No focal deficits. Results/Medications Result Diagram: 01/27/17 0415 01/27/17 0415 Results 24 hrs Chest x-ray Edema possible underlying pneumonia cannot be excluded Laboratory Tests Test 01/26/17 14:11 01/26/17 17:55 01/26/17 21:06 01/27/17 03:04 Bedside Glucose 200 233 H 103 101 Test 01/27/17 04:15 01/27/17 08:10 White Blood Count 10.2 Red Blood Count 3.05 L Hemoglobin 8.9 L Hematocrit 28.5 L Mean Corpuscular Volume 93.4 Mean Corpuscular Hemoglobin 29.2 Mean Corpuscular Hemoglobin Concent 31.2 L Red Cell Distribution Width 15.1 H Platelet Count 295 # Mean Platelet Volume 10.2 Neutrophils % 84.0 H Lymphocytes % 5.4 L Monocytes % 5.9 Eosinophils % 3.4 Basophils % 0.2 Nucleated Red Blood Cells % 0.0 Neutrophils # 8.6 H Lymphocytes # 0.6 L Monocytes # 0.6 Eosinophils # 0.4 Basophils # 0.0 Nucleated Red Blood Cells # 0.0 Sodium Level 132 L Potassium Level 3.8 Chloride Level 98 Carbon Dioxide Level 26 Anion Gap 12 Blood Urea Nitrogen 48 #H Creatinine 2.83 H Glucose Level 117 # Calcium Level 9.2 Phosphorus Level 4.2 Magnesium Level 2.4 Bedside Glucose 138 Medications Current Medications Naloxone HCl (Narcan) 0.4 mg Q4 PRN IV SEDATION; Start 01/05/17 at 01:30 Bisacodyl (Dulcolax Supp) 10 mg DAILY MD Last administered on 01/26/17 09:57; Admin Dose 10 MG; Start 01/06/17 at 09:00; Status Future Hold Budesonide (Pulmicort (Neb)) 0.25 mg BID NEB Last administered on 01/27/17 09: 34; Admin Dose 0.25 MG; Start 01/05/17 at 10:30 Fluticasone Propionate (Flonase 0.05% Nasal) 1 spray DAILY NASAL Last administered on 01/27/17 08:42; Admin Dose 1 SPRAY; Start 01/05/17 at 11:00 Fulvestrant (Faslodex) 500 mg Q28D IM ; Start 01/29/17 at 09:00 Magnesium Hydroxide (Milk Of Mag) 30 ml BID PRN PO CONSTIPATION Last administered on 01/16/17 09:09; Admin Dose 30 ML; Start 01/05/17 at 10:30 Nitroglycerin (Nitroglycerin 2% Oint) 0.5 inch Q6 PRN TD CHEST PAIN; Start 03/13 at 10:30 Ondansetron HCl (Zofran Inj) 4 mg Q6H PRN IV NAUSEA Last administered on 14:23; Admin Dose 4 MG; Start 01/05/17 at 10:30 Prednisone (Prednisone) 5 mg DAILY PO Last administered on 01/27/17 08:42; Admin Dose 5 MG; Start 01/05/17 at 12:00 Prednisone (Prednisone) 3 mg DAILY PO Last administered on 01/27/17 08:43; Admin Dose 3 MG; Start 01/05/17 at 12:00 Miscellaneous Information 1 ea NOTE XX ; Start 01/05/17 at 11:00 Glucose (Glutose) 15 gm Q15M PRN PO DECREASED GLUCOSE; Start 01/05/17 at 11:00 Glucose (Glutose) 22.5 gm Q15M PRN PO DECREASED GLUCOSE; Start 01/05/17 at 11: 00 Dextrose (D50w Syringe) 25 ml Q15M PRN IV DECREASED GLUCOSE Last administered on 01/23/17 03:45; Admin Dose 25 ML; Start 01/05/17 at 11:00 Dextrose (D50w Syringe) 50 ml Q15M PRN IV DECREASED GLUCOSE Last administered on 01/08/17 21:33; Admin Dose 50 ML; Start 01/05/17 at 11:00 Glucagon (Glucagen) 1 mg Q15M PRN IM DECREASED GLUCOSE Last administered on 21:08; Admin Dose 1 MG; Start 01/05/17 at 11:00 Glucose 15 gm 15 gm Q15M PRN BUCCAL DECREASED GLUCOSE Last administered on 01/23 21:36; Admin Dose 15 GM; Start 01/05/17 at 11:00 Fentanyl 100 ml @ 2.5 mls/hr TITRATE IV Last administered on 01/07/17 02:25; Admin Dose 7.5 MLS/HR; Start 01/06/17 at 09:30 Norepinephrine/ Dextrose (Levophed/D5W) 500 ml @ 0 mls/hr TITRATE IV ; Start 04/12 at 13:30 Bumetanide 1 mg 1 mg BID IV Last administered on 01/13/17 21:06; Admin Dose 1 MG; Start 01/08/17 at 09:00; Status Future Hold Propofol (Diprivan) 100 ml @ 2.19 mls/hr Q12H IV Last administered on 07:04; Admin Dose 15.28 MLS/HR; Start 01/08/17 at 16:00 Miscellaneous Information (*Order Clarification Bulletin) FULVESTRANT 250 MG/5 ML SYG: PLE... Q8H XX ; Start 01/26/17 at 09:00 Acetaminophen (Tylenol Tab) 650 mg Q6H PRN NGT PAIN AND OR ELEVATED TEMP; Start 01/17/17 at 22:30 Apixaban (Eliquis) 2.5 mg BID NGT Last administered on 01/18/17 08:20; Admin Dose 2.5 MG; Start 01/17/17 at 21:00; Status Future Hold Ascorbic Acid (Vitamin C) 500 mg BID NGT Last administered on 01/27/17 08:42; Admin Dose 500 MG; Start 01/17/17 at 21:00 Levothyroxine Sodium (Synthroid) 75 mcg DAILY@06 NGT Last administered on 06:00; Admin Dose 75 MCG; Start 01/18/17 at 06:00 Loratadine (Claritin) 10 mg DAILY NGT Last administered on 01/27/17 08:43; Admin Dose 10 MG; Start 01/18/17 at 09:00 Metoprolol Tartrate (Lopressor) 25 mg BID NGT Last administered on 01/27/17 08 :44; Admin Dose 25 MG; Start 01/17/17 at 21:00 Mirtazapine (Remeron) 15 mg HS NGT Last administered on 01/26/17 21:07; Admin Dose 15 MG; Start 01/17/17 at 21:00 Oxcarbazepine (Trileptal) 600 mg BID NGT Last administered on 01/27/17 08:43; Admin Dose 600 MG; Start 01/17/17 at 21:00 Senna (Senokot) 1 tab HS NGT Last administered on 01/25/17 20:06; Admin Dose 1 TAB; Start 01/17/17 at 21:00; Status Future Hold Sertraline HCl (Zoloft) 75 mg DAILY NGT Last administered on 01/27/17 08:43; Admin Dose 75 MG; Start 01/18/17 at 09:00 Sildenafil Citrate (Revatio) 20 mg TID NGT Last administered on 01/27/17 08:44 ; Admin Dose 20 MG; Start 01/17/17 at 21:00 Docusate Sodium (Colace Liquid Cup) 100 mg BID NGT Last administered on 09:55; Admin Dose 100 MG; Start 01/17/17 at 21:00; Status Future Hold Voriconazole (Vfend) 200 mg BID PO Last administered on 01/27/17 08:42; Admin Dose 200 MG; Start 01/19/17 at 21:00 Famotidine (Pepcid) 20 mg DAILY NGT Last administered on 01/27/17 08:42; Admin Dose 20 MG; Start 01/20/17 at 09:00 Lorazepam (Ativan) 1 mg Q6H PRN IV anxiety Last administered on 01/26/17 16:24 ; Admin Dose 1 MG; Start 01/22/17 at 09:00 Tacrolimus (Prograf) 2 mg QPM NGT Last administered on 01/26/17 21:08; Admin Dose 2 MG; Start 01/24/17 at 21:00 Insulin Glargine (Lantus) 14 unit BID@08,20 SC Last administered on 01/27/17 08:56; Admin Dose 14 UNIT; Start 01/25/17 at 20:00 Diagnostic Test (Pha) (Accu-Chek) 1 ea 02 XX Last administered on 01/26/17 02: 09; Admin Dose 1 EA; Start 01/26/17 at 02:00 Diagnostic Test (Pha) (Accu-Chek) 1 ea 02 XX ; Start 01/27/17 at 02:00 Insulin Aspart (Novolog Insulin Pen) NOVOLOG *MODERATE* ALGORI... Q4 SC Last administered on 01/26/17 18:00; Admin Dose 6 UNIT; Start 01/26/17 at 17:00 Metoclopramide HCl 5 mg 5 mg Q8H PRN IV VOMITTING; Start 01/26/17 at 15:30 Dextrose/Sodium Chloride (D5-NS) 1,000 ml @ 40 mls/hr Q24H IV Last administered on 01/27/17 08:42; Admin Dose 40 MLS/HR; Start 01/27/17 at 07:00 Hydralazine HCl (Apresoline) 25 mg TID PRN GTB ELEVATED SYSTOLIC BP; Start 01/27/17 at 07:00 Assessment/Plan Chief Complaint/Hosp Course IMPRESSION: 1. Hypoxemic respiratory failure. Status post thoracentesis. Failed multiple CPAP weaning trials pending tracheostomy, scheduled for today. Discussed with thoracic surgery. 2. Possible altered mental status secondary to opioids. Significant anxiety component. 3. History of renal transplant. Renal insufficiency. Hyponatremia. 4. Dysphagia now with G-tube 5. Improved leukocytosis PLAN: 1. Continue supportive care, pending tracheostomy, 2. Decrease sedation as tolerated. 3. Continue ID recommendations 4. Renal recommendations. 5. DVT and GI prophylaxis. 6. Tube feeding once tracheostomy placed Critical care time 40 minutes. Prognosis guarded. Problems: LESA SAMUELS MD, [facility] Jan 27, 2017 11:12
--- NOTE | 2017-01-27 11:22 | CONS ---
Date/Time of Note Date/Time of Note DATE: 01/27/17 TIME: 11:21 Assessment/Plan Assessment/Plan Additional Assessment/Plan Additional Assessment/Plan 1. Respiratory failure. 2. Dysphagia. 3. Sepsis. 4. Renal failure. 5. Diabetes mellitus. 6. Breast cancer with metastasis. 7. Chronic obstructive pulmonary disease. 8. Pulmonary hypertension. 9. Atrial fibrillation. 10. Deconditioning 11. Status post renal transplant on immunosuppressive medication 12. Persistent leukocytosis 13. Respiratory failure reintubated 14. Status post PEG 15. Anemia, no evidence of active bleeding. Hematocrit is stable Plan Continue feeding Continue present care G-tube is in place, contrary to the x-ray report There is no evidence of active GI bleeding. Staff noted black colored stool last night and had called me Continue to monitor H&H Consultation Date/Type/Reason Admit Date/Time Jan 05, 2017 at 00:15 Initial Consult Date 01/05/17 Type of Consultation: Pulmonary Referring Provider: SUSAN SIMENTAL DO 24 HR Interval Summary Subjective hx not possible: pt non-verbal, pt critical Exam/Review of Systems Vital Signs Vitals Vital Signs Date Time Temp Pulse Resp B/P Pulse Ox O2 Delivery O2 Flow Rate FiO2 01/27/17 08:00 30 01/27/17 08:00 77 01/27/17 06:15 22 100 01/27/17 06:00 153/52 Mechanical Ventilator 01/27/17 04:00 98.3 Intake and Output 01/26/17 01/26/17 01/27/17 15:00 23:00 07:00 Intake Total 400 ml 30 ml 60 ml Output Total 3030 ml 50 ml 30 ml Balance -2630 ml -20 ml 30 ml Exam Constitutional: alert, oriented, well developed Psych: nl mood/affect, no complaints Head: atraumatic, normocephalic Eyes: EOMI, PERRL, nl conjunctiva, nl lids, nl sclera ENMT: nl external ears & nose, nl lips & teeth, nl nasal mucosa & septum Neck: non-tender, supple Respiratory: clear to auscultation, normal air movement Cardiovascular: nl pulses, regular rate and rhythm Gastrointestinal: nl liver, spleen, non-tender, soft Musculoskeletal: nl extremities to inspection, nl gait and stance Extremities: normal pulses Neurological: [employer] II-XII intact, nl mental status, nl speech, nl strength Skin: nl turgor, No rash or lesions Lymph: nl lymph nodes Results Result Diagram: 01/27/17 0415 01/27/17 0415 Results 24 hrs Laboratory Tests Test 01/26/17 14:11 01/26/17 17:55 01/26/17 21:06 01/27/17 03:04 Bedside Glucose 200 233 H 103 101 Test 01/27/17 04:15 01/27/17 08:10 White Blood Count 10.2 Red Blood Count 3.05 L Hemoglobin 8.9 L Hematocrit 28.5 L Mean Corpuscular Volume 93.4 Mean Corpuscular Hemoglobin 29.2 Mean Corpuscular Hemoglobin Concent 31.2 L Red Cell Distribution Width 15.1 H Platelet Count 295 # Mean Platelet Volume 10.2 Neutrophils % 84.0 H Lymphocytes % 5.4 L Monocytes % 5.9 Eosinophils % 3.4 Basophils % 0.2 Nucleated Red Blood Cells % 0.0 Neutrophils # 8.6 H Lymphocytes # 0.6 L Monocytes # 0.6 Eosinophils # 0.4 Basophils # 0.0 Nucleated Red Blood Cells # 0.0 Sodium Level 132 L Potassium Level 3.8 Chloride Level 98 Carbon Dioxide Level 26 Anion Gap 12 Blood Urea Nitrogen 48 #H Creatinine 2.83 H Glucose Level 117 # Calcium Level 9.2 Phosphorus Level 4.2 Magnesium Level 2.4 Bedside Glucose 138 Medications Medications Current Medications Naloxone HCl (Narcan) 0.4 mg Q4 PRN IV SEDATION; Start 01/05/17 at 01:30 Bisacodyl (Dulcolax Supp) 10 mg DAILY ID Last administered on 01/26/17 09:57; Admin Dose 10 MG; Start 01/06/17 at 09:00; Status Future Hold Budesonide (Pulmicort (Neb)) 0.25 mg BID NEB Last administered on 01/27/17 09: 34; Admin Dose 0.25 MG; Start 01/05/17 at 10:30 Fluticasone Propionate (Flonase 0.05% Nasal) 1 spray DAILY NASAL Last administered on 01/27/17 08:42; Admin Dose 1 SPRAY; Start 01/05/17 at 11:00 Fulvestrant (Faslodex) 500 mg Q28D IM ; Start 01/29/17 at 09:00 Magnesium Hydroxide (Milk Of Mag) 30 ml BID PRN PO CONSTIPATION Last administered on 01/16/17 09:09; Admin Dose 30 ML; Start 01/05/17 at 10:30 Nitroglycerin (Nitroglycerin 2% Oint) 0.5 inch Q6 PRN TD CHEST PAIN; Start 03/13 at 10:30 Ondansetron HCl (Zofran Inj) 4 mg Q6H PRN IV NAUSEA Last administered on 14:23; Admin Dose 4 MG; Start 01/05/17 at 10:30 Prednisone (Prednisone) 5 mg DAILY PO Last administered on 01/27/17 08:42; Admin Dose 5 MG; Start 01/05/17 at 12:00 Prednisone (Prednisone) 3 mg DAILY PO Last administered on 01/27/17 08:43; Admin Dose 3 MG; Start 01/05/17 at 12:00 Miscellaneous Information 1 ea NOTE XX ; Start 01/05/17 at 11:00 Glucose (Glutose) 15 gm Q15M PRN PO DECREASED GLUCOSE; Start 01/05/17 at 11:00 Glucose (Glutose) 22.5 gm Q15M PRN PO DECREASED GLUCOSE; Start 01/05/17 at 11: 00 Dextrose (D50w Syringe) 25 ml Q15M PRN IV DECREASED GLUCOSE Last administered on 01/23/17 03:45; Admin Dose 25 ML; Start 01/05/17 at 11:00 Dextrose (D50w Syringe) 50 ml Q15M PRN IV DECREASED GLUCOSE Last administered on 01/08/17 21:33; Admin Dose 50 ML; Start 01/05/17 at 11:00 Glucagon (Glucagen) 1 mg Q15M PRN IM DECREASED GLUCOSE Last administered on 21:08; Admin Dose 1 MG; Start 01/05/17 at 11:00 Glucose 15 gm 15 gm Q15M PRN BUCCAL DECREASED GLUCOSE Last administered on 01/23 21:36; Admin Dose 15 GM; Start 01/05/17 at 11:00 Fentanyl 100 ml @ 2.5 mls/hr TITRATE IV Last administered on 01/07/17 02:25; Admin Dose 7.5 MLS/HR; Start 01/06/17 at 09:30 Norepinephrine/ Dextrose (Levophed/D5W) 500 ml @ 0 mls/hr TITRATE IV ; Start 04/12 at 13:30 Bumetanide 1 mg 1 mg BID IV Last administered on 01/13/17 21:06; Admin Dose 1 MG; Start 01/08/17 at 09:00; Status Future Hold Propofol (Diprivan) 100 ml @ 2.19 mls/hr Q12H IV Last administered on 07:04; Admin Dose 15.28 MLS/HR; Start 01/08/17 at 16:00 Miscellaneous Information (*Order Clarification Bulletin) FULVESTRANT 250 MG/5 ML SYG: PLE... Q8H XX ; Start 01/26/17 at 09:00 Acetaminophen (Tylenol Tab) 650 mg Q6H PRN NGT PAIN AND OR ELEVATED TEMP; Start 01/17/17 at 22:30 Apixaban (Eliquis) 2.5 mg BID NGT Last administered on 01/18/17 08:20; Admin Dose 2.5 MG; Start 01/17/17 at 21:00; Status Future Hold Ascorbic Acid (Vitamin C) 500 mg BID NGT Last administered on 01/27/17 08:42; Admin Dose 500 MG; Start 01/17/17 at 21:00 Levothyroxine Sodium (Synthroid) 75 mcg DAILY@06 NGT Last administered on 06:00; Admin Dose 75 MCG; Start 01/18/17 at 06:00 Loratadine (Claritin) 10 mg DAILY NGT Last administered on 01/27/17 08:43; Admin Dose 10 MG; Start 01/18/17 at 09:00 Metoprolol Tartrate (Lopressor) 25 mg BID NGT Last administered on 01/27/17 08 :44; Admin Dose 25 MG; Start 01/17/17 at 21:00 Mirtazapine (Remeron) 15 mg HS NGT Last administered on 01/26/17 21:07; Admin Dose 15 MG; Start 01/17/17 at 21:00 Oxcarbazepine (Trileptal) 600 mg BID NGT Last administered on 01/27/17 08:43; Admin Dose 600 MG; Start 01/17/17 at 21:00 Senna (Senokot) 1 tab HS NGT Last administered on 01/25/17 20:06; Admin Dose 1 TAB; Start 01/17/17 at 21:00; Status Future Hold Sertraline HCl (Zoloft) 75 mg DAILY NGT Last administered on 01/27/17 08:43; Admin Dose 75 MG; Start 01/18/17 at 09:00 Sildenafil Citrate (Revatio) 20 mg TID NGT Last administered on 01/27/17 08:44 ; Admin Dose 20 MG; Start 01/17/17 at 21:00 Docusate Sodium (Colace Liquid Cup) 100 mg BID NGT Last administered on 09:55; Admin Dose 100 MG; Start 01/17/17 at 21:00; Status Future Hold Voriconazole (Vfend) 200 mg BID PO Last administered on 01/27/17 08:42; Admin Dose 200 MG; Start 01/19/17 at 21:00 Famotidine (Pepcid) 20 mg DAILY NGT Last administered on 01/27/17 08:42; Admin Dose 20 MG; Start 01/20/17 at 09:00 Lorazepam (Ativan) 1 mg Q6H PRN IV anxiety Last administered on 01/26/17 16:24 ; Admin Dose 1 MG; Start 01/22/17 at 09:00 Tacrolimus (Prograf) 2 mg QPM NGT Last administered on 01/26/17 21:08; Admin Dose 2 MG; Start 01/24/17 at 21:00 Insulin Glargine (Lantus) 14 unit BID@08,20 SC Last administered on 01/27/17 08:56; Admin Dose 14 UNIT; Start 01/25/17 at 20:00 Diagnostic Test (Pha) (Accu-Chek) 1 ea 02 XX Last administered on 01/26/17 02: 09; Admin Dose 1 EA; Start 01/26/17 at 02:00 Diagnostic Test (Pha) (Accu-Chek) 1 ea 02 XX ; Start 01/27/17 at 02:00 Insulin Aspart (Novolog Insulin Pen) NOVOLOG *MODERATE* ALGORI... Q4 SC Last administered on 01/26/17 18:00; Admin Dose 6 UNIT; Start 01/26/17 at 17:00 Metoclopramide HCl 5 mg 5 mg Q8H PRN IV VOMITTING; Start 01/26/17 at 15:30 Dextrose/Sodium Chloride (D5-NS) 1,000 ml @ 40 mls/hr Q24H IV Last administered on 01/27/17t 08:42; Admin Dose 40 MLS/HR; Start 01/27/17 at 07:00 Hydralazine HCl (Apresoline) 25 mg TID PRN GTB ELEVATED SYSTOLIC BP; Start 01/27/17 at 07:00 MEMO WILHELM MD Jan 27, 2017 11:22
--- NOTE | 2017-01-27 13:35 | CONS ---
Date/Time of Note Date/Time of Note DATE: 01/27/17 TIME: 13:34 Consult Date/Type/Reason Admit Date/Time Jan 05, 2017 at 00:15 Initial Consult Date 01/05/17 Type of Consultation: cardiology Ordering Provider: SUSAN SIMENTAL DO Subjective CARDIOLOGY FOLLOW UP NOTE: D/W Staff and rhythm was reviewed. pt has remained in Afib. HR has been stable pt still remains on vent. NO reports of any chest pain or pressure S/P PEG 01/19/17 still Awaiting trach pt is nonverbal on vent. OBJECTIVE: General: intubated on vent. HEENT: NC/AT. pupils are equal. round. NECK: NO JVD. no stridor. CV:irregularly irregular. systolic murmur; no gallop or rubs. PULM: no wheezing, + mild rhonchi. GI: SOFT, NT, ND, no rebound or guarding S/P PEG Extremity: trace B/L LE edema. no clubbing. neuro: opens her eyes. . Psych: unable to assess rectal: deferred : normal ECHO 12/16/16: Personally reviewed 1. Normal left ventricular systolic function. Normal left ventricular cavity size. Moderate concentric left ventricular hypertrophy. Ejection fraction is visually estimated at 65 %. Abnormal Diastolic Function. 2. There is moderate enlargement of left atrium. 3. Mild mitral leaflet calcification. Mild mitral annular calcification. Trace mitral regurgitation. 4. Aortic sclerosis without stenosis. Trace aortic valve regurgitation. 5. Normal appearance of the tricuspid valve. Estimated peak PA systolic pressure 38 mmHg. There is mild tricuspid regurgitation. Objective Vital Signs Date Time Temp Pulse Resp B/P Pulse Ox O2 Delivery O2 Flow Rate FiO2 01/27/17 12:45 83 14 99 01/27/17 12:30 157/76 01/27/17 12:00 98.0 01/27/17 11:15 30 01/27/17 06:00 Mechanical Ventilator Intake and Output 01/26/17 01/26/17 01/27/17 15:00 23:00 07:00 Intake Total 400 ml 30 ml 60 ml Output Total 3030 ml 50 ml 30 ml Balance -2630 ml -20 ml 30 ml Results/Medications Result Diagram: 01/27/17 0415 01/27/17 0415 Results 24 hrs Laboratory Tests Test 01/26/17 14:11 01/26/17 17:55 10/2/17 21:06 01/27/17 03:04 Bedside Glucose 200 233 H 103 101 Test 01/27/17 04:15 01/27/17 08:10 01/27/17 12:36 White Blood Count 10.2 Red Blood Count 3.05 L Hemoglobin 8.9 L Hematocrit 28.5 L Mean Corpuscular Volume 93.4 Mean Corpuscular Hemoglobin 29.2 Mean Corpuscular Hemoglobin Concent 31.2 L Red Cell Distribution Width 15.1 H Platelet Count 295 # Mean Platelet Volume 10.2 Neutrophils % 84.0 H Lymphocytes % 5.4 L Monocytes % 5.9 Eosinophils % 3.4 Basophils % 0.2 Nucleated Red Blood Cells % 0.0 Neutrophils # 8.6 H Lymphocytes # 0.6 L Monocytes # 0.6 Eosinophils # 0.4 Basophils # 0.0 Nucleated Red Blood Cells # 0.0 Sodium Level 132 L Potassium Level 3.8 Chloride Level 98 Carbon Dioxide Level 26 Anion Gap 12 Blood Urea Nitrogen 48 #H Creatinine 2.83 H Glucose Level 117 # Calcium Level 9.2 Phosphorus Level 4.2 Magnesium Level 2.4 Bedside Glucose 138 141 Medications Current Medications Naloxone HCl (Narcan) 0.4 mg Q4 PRN IV SEDATION; Start 01/05/17 at 01:30 Bisacodyl (Dulcolax Supp) 10 mg DAILY NV Last administered on 01/26/17 09:57; Admin Dose 10 MG; Start 01/06/17 at 09:00; Status Future Hold Budesonide (Pulmicort (Neb)) 0.25 mg BID NEB Last administered on 01/27/17 09: 34; Admin Dose 0.25 MG; Start 01/05/17 at 10:30 Fluticasone Propionate (Flonase 0.05% Nasal) 1 spray DAILY NASAL Last administered on 01/27/17 08:42; Admin Dose 1 SPRAY; Start 01/05/17 at 11:00 Fulvestrant (Faslodex) 500 mg Q28D IM ; Start 01/29/17 at 09:00 Magnesium Hydroxide (Milk Of Mag) 30 ml BID PRN PO CONSTIPATION Last administered on 01/16/17 09:09; Admin Dose 30 ML; Start 01/05/17 at 10:30 Nitroglycerin (Nitroglycerin 2% Oint) 0.5 inch Q6 PRN TD CHEST PAIN; Start 03/13 at 10:30 Ondansetron HCl (Zofran Inj) 4 mg Q6H PRN IV NAUSEA Last administered on 14:23; Admin Dose 4 MG; Start 01/05/17 at 10:30 Prednisone (Prednisone) 5 mg DAILY PO Last administered on 01/27/17 08:42; Admin Dose 5 MG; Start 01/05/17 at 12:00 Prednisone (Prednisone) 3 mg DAILY PO Last administered on 01/27/17 08:43; Admin Dose 3 MG; Start 01/05/17 at 12:00 Miscellaneous Information 1 ea NOTE XX ; Start 01/05/17 at 11:00 Glucose (Glutose) 15 gm Q15M PRN PO DECREASED GLUCOSE; Start 01/05/17 at 11:00 Glucose (Glutose) 22.5 gm Q15M PRN PO DECREASED GLUCOSE; Start 01/05/17 at 11: 00 Dextrose (D50w Syringe) 25 ml Q15M PRN IV DECREASED GLUCOSE Last administered on 01/23/17 03:45; Admin Dose 25 ML; Start 01/05/17 at 11:00 Dextrose (D50w Syringe) 50 ml Q15M PRN IV DECREASED GLUCOSE Last administered on 01/08/17 21:33; Admin Dose 50 ML; Start 01/05/17 at 11:00 Glucagon (Glucagen) 1 mg Q15M PRN IM DECREASED GLUCOSE Last administered on 21:08; Admin Dose 1 MG; Start 01/05/17 at 11:00 Glucose 15 gm 15 gm Q15M PRN BUCCAL DECREASED GLUCOSE Last administered on 01/23 21:36; Admin Dose 15 GM; Start 01/05/17 at 11:00 Fentanyl 100 ml @ 2.5 mls/hr TITRATE IV Last administered on 01/07/17 02:25; Admin Dose 7.5 MLS/HR; Start 01/06/17 at 09:30 Norepinephrine/ Dextrose (Levophed/D5W) 500 ml @ 0 mls/hr TITRATE IV ; Start 04/12 at 13:30 Bumetanide 1 mg 1 mg BID IV Last administered on 01/13/17 21:06; Admin Dose 1 MG; Start 01/08/17 at 09:00; Status Future Hold Propofol (Diprivan) 100 ml @ 2.19 mls/hr Q12H IV Last administered on 07:04; Admin Dose 15.28 MLS/HR; Start 01/08/17 at 16:00 Miscellaneous Information (*Order Clarification Bulletin) FULVESTRANT 250 MG/5 ML SYG: PLE... Q8H XX ; Start 01/26/17 at 09:00 Acetaminophen (Tylenol Tab) 650 mg Q6H PRN NGT PAIN AND OR ELEVATED TEMP; Start 01/17/17 at 22:30 Apixaban (Eliquis) 2.5 mg BID NGT Last administered on 01/18/17 08:20; Admin Dose 2.5 MG; Start 01/17/17 at 21:00; Status Future Hold Ascorbic Acid (Vitamin C) 500 mg BID NGT Last administered on 01/27/17 08:42; Admin Dose 500 MG; Start 01/17/17 at 21:00 Levothyroxine Sodium (Synthroid) 75 mcg DAILY@06 NGT Last administered on 06:00; Admin Dose 75 MCG; Start 01/18/17 at 06:00 Loratadine (Claritin) 10 mg DAILY NGT Last administered on 01/27/17 08:43; Admin Dose 10 MG; Start 01/18/17 at 09:00 Metoprolol Tartrate (Lopressor) 25 mg BID NGT Last administered on 01/27/17 08 :44; Admin Dose 25 MG; Start 01/17/17 at 21:00 Mirtazapine (Remeron) 15 mg HS NGT Last administered on 01/26/17 21:07; Admin Dose 15 MG; Start 01/17/17 at 21:00 Oxcarbazepine (Trileptal) 600 mg BID NGT Last administered on 01/27/17 08:43; Admin Dose 600 MG; Start 01/17/17 at 21:00 Senna (Senokot) 1 tab HS NGT Last administered on 01/25/17 20:06; Admin Dose 1 TAB; Start 01/17/17 at 21:00; Status Future Hold Sertraline HCl (Zoloft) 75 mg DAILY NGT Last administered on 01/27/17 08:43; Admin Dose 75 MG; Start 01/18/17 at 09:00 Sildenafil Citrate (Revatio) 20 mg TID NGT Last administered on 01/27/17 12:45 ; Admin Dose 20 MG; Start 01/17/17 at 21:00 Docusate Sodium (Colace Liquid Cup) 100 mg BID NGT Last administered on 09:55; Admin Dose 100 MG; Start 01/17/17 at 21:00; Status Future Hold Famotidine (Pepcid) 20 mg DAILY NGT Last administered on 01/27/17 08:42; Admin Dose 20 MG; Start 01/20/17 at 09:00 Lorazepam (Ativan) 1 mg Q6H PRN IV anxiety Last administered on 01/26/17 16:24 ; Admin Dose 1 MG; Start 01/22/17 at 09:00 Tacrolimus (Prograf) 2 mg QPM NGT Last administered on 01/26/17 21:08; Admin Dose 2 MG; Start 01/24/17 at 21:00 Insulin Glargine (Lantus) 14 unit BID@08,20 SC Last administered on 01/27/17 08:56; Admin Dose 14 UNIT; Start 01/25/17 at 20:00 Diagnostic Test (Pha) (Accu-Chek) 1 ea 02 XX Last administered on 01/26/17 02: 09; Admin Dose 1 EA; Start 01/26/17 at 02:00 Diagnostic Test (Pha) (Accu-Chek) 1 ea 02 XX ; Start 01/27/17 at 02:00 Insulin Aspart (Novolog Insulin Pen) NOVOLOG *MODERATE* ALGORI... Q4 SC Last administered on 01/26/17 18:00; Admin Dose 6 UNIT; Start 01/26/17 at 17:00 Metoclopramide HCl 5 mg 5 mg Q8H PRN IV VOMITTING; Start 01/26/17 at 15:30 Dextrose/Sodium Chloride (D5-NS) 1,000 ml @ 40 mls/hr Q24H IV Last administered on 01/27/17 08:42; Admin Dose 40 MLS/HR; Start 01/27/17 at 07:00 Hydralazine HCl (Apresoline) 25 mg TID PRN GTB ELEVATED SYSTOLIC BP; Start 01/27/17 at 07:00 Assessment/Plan Chief Complaint/Hosp Course Assessment: 1. s/p cardiopulmonary arrest: Most likely due to pulmonary arrest 2. P afib: now remains in persistent Afib. 3. History of renal failure status post renal transplant: now with KATI on CKD: currently requiring HD. 4. Acute on chronic hypoxemic hypercapnic respiratory failure status post reintubation: currently on the vent: AWAITING TRACH. 5. Shock: resolved now. 6. ANEMIA 7. breast cancer 8. history of HTN: 9. anxiety 10. DM 11. Hypothyroidism: on synthroid. 12. pleural effusion : s/p thoracentesis 13. Dysphagia: s/p PEG Recommendations: vent support for now anti- rejection medications to be adjusted as per renal team. HD as per renal. cont DM control thyroid supplement betablocker as tolerated. correct lytes prn cont tele monitoring transfusion prn cont ICU care. eliquis is on hold now for trach and anemia to be resumed post trach, Thank you for this referral I will continue to follow along with you. AUGUSTINA MALDONADO MD FAC Problems: AUGUSITNA MALDONADO MD Jan 27, 2017 13:35
--- NOTE | 2017-01-27 15:26 | PN ---
DATE: 01/27/2017 SUBJECTIVE DATA: No events overnight. The patient remains intubated, sedated, and in no distress. No fevers. OBJECTIVE DATA: VITAL SIGNS: Temperature pulse respirations 18, blood pressure 160/84. Saturation 99 percent on vent. LABORATORY AND DIAGNOSTIC DATA: WBC 10.2, H and H 8.9 and 28.5, platelets 295, neutrophils 84, BUN 48, creatinine 2.83. INDWELLINGS: Endotracheal tube, PEG, right IJ Bandar and PICC line placed yesterday. ANTIMICROBIALS: The patient remains on voriconazole. PHYSICAL EXAMINATION: GENERAL: This is a chronically ill-appearing, elderly woman, who is in no distress. HEENT: Head atraumatic, normocephalic. Sclerae anicteric. Buccal mucosa dry. NECK: Supple. CHEST: Rise symmetrical. Breath sounds diminished at the bases. HEART: S1, S2. ABDOMEN: Soft, bowel sounds present. EXTREMITIES: Without cyanosis. ASSESSMENT: 1. Status post septic shock, urinary tract infection and pneumonia. 2. Respiratory failure, failed multiple weaning trials. 3. Acute on chronic kidney disease, hemodialysis dependent. 4. History of kidney transplant, on immunosuppressive therapy. 5. Anemia. 6. Encephalopathy. PLAN: The patient remains stable. Awaiting for PEG. We are going to discontinue voriconazole and observe her. We will panculture her if she spikes a fever. Dictated By: Artis Castañdea NP /berkley/johnson /Document#: [id number]
--- NOTE | 2017-01-27 20:07 | CONS ---
Date/Time of Note Date/Time of Note DATE: 01/27/17 TIME: 20:05 Assessment/Plan Assessment/Plan Chief Complaint/Hosp Course History of breast cancer with lung metastasis. The patient is on medical management. on Faslodex as outpt ANOTHER DOSE IS ORDERED Anemia. Monitor hemoglobin and hematocrit levels. 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 Congestive heart failure exacerbation. Hypothyroidism. Diabetes. Continue current insulin regimen. Pulmonary hypertension. Depression. Problems: Consultation Date/Type/Reason Admit Date/Time Jan 05, 2017 at 00:15 Initial Consult Date 01/05/17 [facility] Referring Provider: SUSAN SIMENTAL DO 24 HR Interval Summary Free Text/Dictation ALL NOTED D/W RN FELICITY ORDERED Exam/Review of Systems Vital Signs Vitals Vital Signs Date Time Temp Pulse Resp B/P Pulse Ox O2 Delivery O2 Flow Rate FiO2 01/27/17 19:48 95 12 100 30 01/27/17 18:30 166/102 01/27/17 14:53 98.2 01/27/17 06:00 Mechanical Ventilator Intake and Output 01/26/17 01/26/17 01/27/17 15:00 23:00 07:00 Intake Total 400 ml 30 ml 60 ml Output Total 3030 ml 50 ml 30 ml Balance -2630 ml -20 ml 30 ml Exam HEENT: Head is normocephalic. NECK: Supple. HEART: Regular rate. LUNGS: Show diminished breath sounds base. Positive rhonchi. ABDOMEN: Soft, nontender to palpation. No rebound or guarding. EXTREMITIES: Negative for clubbing, cyanosis. No edema. DERMATOLOGIC: Clean. No rashes. MUSCULOSKELETAL: No joint effusion. NEUROLOGIC: No change in exam. Results Result Diagram: 01/27/17 0415 01/27/17 0415 Results 24 hrs Laboratory Tests Test 01/26/17 21:06 01/27/17 03:04 01/27/17 04:15 01/27/17 08:10 Bedside Glucose 103 101 138 White Blood Count 10.2 Red Blood Count 3.05 L Hemoglobin 8.9 L Hematocrit 28.5 L Mean Corpuscular Volume 93.4 Mean Corpuscular Hemoglobin 29.2 Mean Corpuscular Hemoglobin Concent 31.2 L Red Cell Distribution Width 15.1 H Platelet Count 295 # Mean Platelet Volume 10.2 Neutrophils % 84.0 H Lymphocytes % 5.4 L Monocytes % 5.9 Eosinophils % 3.4 Basophils % 0.2 Nucleated Red Blood Cells % 0.0 Neutrophils # 8.6 H Lymphocytes # 0.6 L Monocytes # 0.6 Eosinophils # 0.4 Basophils # 0.0 Nucleated Red Blood Cells # 0.0 Sodium Level 132 L Potassium Level 3.8 Chloride Level 98 Carbon Dioxide Level 26 Anion Gap 12 Blood Urea Nitrogen 48 #H Creatinine 2.83 H Glucose Level 117 # Calcium Level 9.2 Phosphorus Level 4.2 Magnesium Level 2.4 Test 01/27/17 12:36 01/27/17 17:30 Bedside Glucose 141 134 Medications Medications Current Medications Naloxone HCl (Narcan) 0.4 mg Q4 PRN IV SEDATION; Start 01/05/17 at 01:30 Bisacodyl (Dulcolax Supp) 10 mg DAILY NH Last administered on 01/26/17 09:57; Admin Dose 10 MG; Start 01/06/17 at 09:00; Status Future Hold Budesonide (Pulmicort (Neb)) 0.25 mg BID NEB Last administered on 01/27/17 19: 51; Admin Dose 0.25 MG; Start 01/05/17 at 10:30 Fluticasone Propionate (Flonase 0.05% Nasal) 1 spray DAILY NASAL Last administered on 01/27/17 08:42; Admin Dose 1 SPRAY; Start 01/05/17 at 11:00 Fulvestrant (Faslodex) 500 mg Q28D IM ; Start 01/29/17 at 09:00 Magnesium Hydroxide (Milk Of Mag) 30 ml BID PRN PO CONSTIPATION Last administered on 01/16/17 09:09; Admin Dose 30 ML; Start 01/05/17 at 10:30 Nitroglycerin (Nitroglycerin 2% Oint) 0.5 inch Q6 PRN TD CHEST PAIN; Start 03/13 at 10:30 Ondansetron HCl (Zofran Inj) 4 mg Q6H PRN IV NAUSEA Last administered on 14:23; Admin Dose 4 MG; Start 01/05/17 at 10:30 Prednisone (Prednisone) 5 mg DAILY PO Last administered on 01/27/17 08:42; Admin Dose 5 MG; Start 01/05/17 at 12:00 Prednisone (Prednisone) 3 mg DAILY PO Last administered on 01/27/17 08:43; Admin Dose 3 MG; Start 01/05/17 at 12:00 Miscellaneous Information 1 ea NOTE XX ; Start 01/05/17 at 11:00 Glucose (Glutose) 15 gm Q15M PRN PO DECREASED GLUCOSE; Start 01/05/17 at 11:00 Glucose (Glutose) 22.5 gm Q15M PRN PO DECREASED GLUCOSE; Start 01/05/17 at 11: 00 Dextrose (D50w Syringe) 25 ml Q15M PRN IV DECREASED GLUCOSE Last administered on 01/23/17 03:45; Admin Dose 25 ML; Start 01/05/17 at 11:00 Dextrose (D50w Syringe) 50 ml Q15M PRN IV DECREASED GLUCOSE Last administered on 01/08/17 21:33; Admin Dose 50 ML; Start 01/05/17 at 11:00 Glucagon (Glucagen) 1 mg Q15M PRN IM DECREASED GLUCOSE Last administered on 21:08; Admin Dose 1 MG; Start 01/05/17 at 11:00 Glucose 15 gm 15 gm Q15M PRN BUCCAL DECREASED GLUCOSE Last administered on 01/23 21:36; Admin Dose 15 GM; Start 01/05/17 at 11:00 Fentanyl 100 ml @ 2.5 mls/hr TITRATE IV Last administered on 01/07/17 02:25; Admin Dose 7.5 MLS/HR; Start 01/06/17 at 09:30 Norepinephrine/ Dextrose (Levophed/D5W) 500 ml @ 0 mls/hr TITRATE IV ; Start 04/12 at 13:30 Bumetanide 1 mg 1 mg BID IV Last administered on 01/13/17 21:06; Admin Dose 1 MG; Start 01/08/17 at 09:00; Status Future Hold Propofol (Diprivan) 100 ml @ 2.19 mls/hr Q12H IV Last administered on 07:04; Admin Dose 15.28 MLS/HR; Start 01/08/17 at 16:00 Acetaminophen (Tylenol Tab) 650 mg Q6H PRN NGT PAIN AND OR ELEVATED TEMP; Start 01/17/17 at 22:30 Apixaban (Eliquis) 2.5 mg BID NGT Last administered on 01/18/17 08:20; Admin Dose 2.5 MG; Start 01/17/17 at 21:00; Status Future Hold Ascorbic Acid (Vitamin C) 500 mg BID NGT Last administered on 01/27/17 08:42; Admin Dose 500 MG; Start 01/17/17 at 21:00 Levothyroxine Sodium (Synthroid) 75 mcg DAILY@06 NGT Last administered on 06:00; Admin Dose 75 MCG; Start 01/18/17 at 06:00 Loratadine (Claritin) 10 mg DAILY NGT Last administered on 01/27/17 08:43; Admin Dose 10 MG; Start 01/18/17 at 09:00 Metoprolol Tartrate (Lopressor) 25 mg BID NGT Last administered on 01/27/17 08 :44; Admin Dose 25 MG; Start 01/17/17 at 21:00 Mirtazapine (Remeron) 15 mg HS NGT Last administered on 01/26/17 21:07; Admin Dose 15 MG; Start 01/17/17 at 21:00 Oxcarbazepine (Trileptal) 600 mg BID NGT Last administered on 01/27/17 08:43; Admin Dose 600 MG; Start 01/17/17 at 21:00 Senna (Senokot) 1 tab HS NGT Last administered on 01/25/17 20:06; Admin Dose 1 TAB; Start 01/17/17 at 21:00; Status Future Hold Sertraline HCl (Zoloft) 75 mg DAILY NGT Last administered on 01/27/17 08:43; Admin Dose 75 MG; Start 01/18/17 at 09:00 Sildenafil Citrate (Revatio) 20 mg TID NGT Last administered on 01/27/17 12:45 ; Admin Dose 20 MG; Start 01/17/17 at 21:00 Docusate Sodium (Colace Liquid Cup) 100 mg BID NGT Last administered on 09:55; Admin Dose 100 MG; Start 01/17/17 at 21:00; Status Future Hold Famotidine (Pepcid) 20 mg DAILY NGT Last administered on 01/27/17 08:42; Admin Dose 20 MG; Start 01/20/17 at 09:00 Lorazepam (Ativan) 1 mg Q6H PRN IV anxiety Last administered on 01/26/17 16:24 ; Admin Dose 1 MG; Start 01/22/17 at 09:00 Tacrolimus (Prograf) 2 mg QPM NGT Last administered on 01/26/17 21:08; Admin Dose 2 MG; Start 01/24/17 at 21:00 Insulin Glargine (Lantus) 14 unit BID@08,20 SC Last administered on 01/27/17 08:56; Admin Dose 14 UNIT; Start 01/25/17 at 20:00 Diagnostic Test (Pha) (Accu-Chek) 1 ea 02 XX Last administered on 01/26/17 02: 09; Admin Dose 1 EA; Start 01/26/17 at 02:00 Diagnostic Test (Pha) (Accu-Chek) 1 ea 02 XX ; Start 01/27/17 at 02:00 Insulin Aspart (Novolog Insulin Pen) NOVOLOG *MODERATE* ALGORI... Q4 SC Last administered on 01/26/17 18:00; Admin Dose 6 UNIT; Start 01/26/17 at 17:00 Metoclopramide HCl 5 mg 5 mg Q8H PRN IV VOMITTING; Start 01/26/17 at 15:30 Dextrose/Sodium Chloride (D5-NS) 1,000 ml @ 40 mls/hr Q24H IV Last administered on 01/27/17 08:42; Admin Dose 40 MLS/HR; Start 01/27/17 at 07:00 Hydralazine HCl (Apresoline) 25 mg TID PRN GTB ELEVATED SYSTOLIC BP; Start 01/27/17 at 07:00 SHANICE DAVENPORT MD Jan 27, 2017 20:07
[2017-01-27] MEDS ORDERED: LIDOCAINE 1% (MDV) 20 ML INJ ONE (20:13)
--- NOTE | 2017-01-27 20:38 | OPR ---
Date/Time of Note Date/Time of Note DATE: 01/27/17 TIME: 20:36 Operative Report Procedure Date: Jan 27, 2017 Preoperative Diagnosis Resp Failure Postoperative Diagnosis Same Operation/Procedure Performed Tracheostomy Surgeon Jocelyn Sleeping Car Porter none Anesthesia Type: general Estimated Blood Loss: minimal Transfusion none Specimen none Grafts/Implants nonenone Tubes/Drains none Complications none Pt Condition Post Procedure: critical Disposition: PACU, other Indications Resp failure Procedure Description Dictated KELSY MOORE MD Jan 27, 2017 20:38
[2017-01-27] MEDS: MIRTAZAPINE 15 MG TAB NGT SCH (20:57)
--- NOTE | 2017-01-27 20:58 | OPR ---
DATE OF OPERATION: 01/27/2017 PREOPERATIVE DIAGNOSIS: Respiratory failure. POSTOPERATIVE DIAGNOSIS: Respiratory failure. OPERATION PERFORMED: Tracheostomy. SURGEON: Jaswinder Banks MD ANESTHESIA: General. INDICATIONS: Risks, benefits, complications, alternative therapies explained to the patient and the family. Consent obtained. OPERATIVE PROCEDURE: Patient was placed in supine position, prepped and draped in the usual sterile fashion, and 1 percent lidocaine was used throughout the operation for local anesthesia. A 1-cm incision was made 1 cm superior to the sternal notch. Incision was taken down through the subcutaneous tissue, which was then opened using Metzenbaum scissors. Access was gained into the trachea. Guidewire was advanced through without any difficulties. the subcutaneous tissues were progressively enlarged, using larger dilators, endotracheal tube removed, 8 cuffed tracheostomy tube advanced into the trachea, secured to the skin using 4 loose nylon sutures and a trach tie. Patient tolerated procedure well. Dictated By: Jaswinder Banks MD /berkley/kathya /Document#: [id number]
[2017-01-28] VITALS (72 sets, daily range): BP systolic 104–192; BP diastolic 42–116; PULSE 81–127; RESP 12–30
[2017-01-28] MEDS: INSULIN ASPART [NOVOLOG] 3 ML PEN SC SCH ×6 (01:00→21:00)
[2017-01-28] MEDS: IPRATROPIUM (HFA) 12.9 GM INHALER INH SCH ×4 (01:25→20:00)
[2017-01-28] MEDS: ALBUTEROL 18 GM INHALER INH SCH ×4 (01:26→20:00)
[2017-01-28] MEDS: ACCU-CHEK XX SCH ×2 (01:42)
[2017-01-28] MEDS: PROPOFOL 100 ML IV SCH ×2 (04:00→14:34)
[2017-01-28] MEDS: LEVOTHYROXINE 75 MCG TAB NGT SCH (05:06)
[2017-01-28 05:51] LABS: ABNORMAL IP MESSAGE 1; BASOPHILS % 0.1 % (0.0-2.0); EOSINOPHILS # 0.2 10^3/ul (0.0-0.5); EOSINOPHILS % 0.9 % (0.0-7.0); HEMATOCRIT 32.8 % (37.0-47.0); HEMOGLOBIN 10.4 g/dl (12.0-16.0); LYMPHOCYTES # 0.5 10^3/ul (0.8-2.9); LYMPHOCYTES % 2.5 % (15.0-51.0); MEAN CORPUSCULAR HEMOGLOBIN 29.5 pg (29.0-33.0); MEAN CORPUSCULAR HGB CONC 31.7 g/dl (32.0-37.0); MEAN CORPUSCULAR VOLUME 93.2 fl (82.0-101.0); MEAN PLATELET VOLUME 9.6 fl (7.4-10.4); MONOCYTE # 0.6 10^3/ul (0.3-0.9); MONOCYTES % 2.9 % (0.0-11.0); NEUTROPHIL # 17.9 10^3/ul (1.6-7.5); NEUTROPHILS % 92.7 % (39.0-77.0); PLATELET COUNT 353 10^3/UL (140-415); RED BLOOD COUNT 3.52 10^6/ul (4.20-5.40); RED CELL DISTRIBUTION WIDTH 14.7 % (11.5-14.5); WHITE BLOOD COUNT 19.4 10^3/ul (4.8-10.8)
[2017-01-28 06:11] LABS: CALCIUM 9.6 mg/dl (8.4-10.2); CREATININE 3.31 mg/dl (0.44-1.00); MAGNESIUM 2.4 mg/dl (1.7-2.5); PHOSPHORUS 4.9 mg/dl (2.5-4.9); POTASSIUM 3.9 mmol/L (3.5-5.1)
[2017-01-28 06:22] LABS: POSITIVE DIFF @See below
--- NOTE | 2017-01-28 07:35 | CONS ---
Date/Time of Note Date/Time of Note DATE: 01/28/17 TIME: 07:33 Consult Date/Type/Reason Admit Date/Time Jan 05, 2017 at 00:15 Initial Consult Date 01/05/17 Type of Consultation: CARDIOLOGY Ordering Provider: SUSAN SIMENTAL DO Subjective CARDIOLOGY FOLLOW UP NOTE: D/W Staff and rhythm was reviewed. pt has remained in Afib. HR has been stable overall. pt still remains on vent. NO reports of any chest pain or pressure S/P PEG 01/19/17 S/P Trach 01/27/17 pt is nonverbal on vent. OBJECTIVE: General: s/p trach on vent. HEENT: NC/AT. pupils are equal. round. NECK: s/p trach. no stridor. CV:irregularly irregular. systolic murmur; no gallop or rubs. PULM: no wheezing, + mild rhonchi. GI: SOFT, NT, ND, no rebound or guarding S/P PEG Extremity: trace B/L LE edema. no clubbing. neuro: awake. . Psych: unable to assess rectal: deferred : normal ECHO 12/16/16: Personally reviewed 1. Normal left ventricular systolic function. Normal left ventricular cavity size. Moderate concentric left ventricular hypertrophy. Ejection fraction is visually estimated at 65 %. Abnormal Diastolic Function. 2. There is moderate enlargement of left atrium. 3. Mild mitral leaflet calcification. Mild mitral annular calcification. Trace mitral regurgitation. 4. Aortic sclerosis without stenosis. Trace aortic valve regurgitation. 5. Normal appearance of the tricuspid valve. Estimated peak PA systolic pressure 38 mmHg. There is mild tricuspid regurgitation. Objective Vital Signs Date Time Temp Pulse Resp B/P Pulse Ox O2 Delivery O2 Flow Rate FiO2 01/28/17 05:30 127 25 104/82 99 Mechanical Ventilator 01/28/17 05:26 30 01/28/17 04:00 98.0 Intake and Output 01/27/17 01/27/17 01/28/17 15:00 23:00 07:00 Intake Total 250 ml 370 ml 170 ml Output Total 0 ml 0 ml 0 ml Balance 250 ml 370 ml 170 ml Results/Medications Result Diagram: 01/28/17 0535 01/28/17 0535 Results 24 hrs Laboratory Tests Test 01/27/17 08:10 01/27/17 12:36 01/27/17 17:30 01/27/17 20:55 Bedside Glucose 138 141 134 126 Test 01/28/17 01:06 01/28/17 05:04 01/28/17 05:35 Bedside Glucose 120 170 White Blood Count 19.4 #H Red Blood Count 3.52 L Hemoglobin 10.4 L Hematocrit 32.8 L Mean Corpuscular Volume 93.2 Mean Corpuscular Hemoglobin 29.5 Mean Corpuscular Hemoglobin Concent 31.7 L Red Cell Distribution Width 14.7 H Platelet Count 353 Mean Platelet Volume 9.6 Neutrophils % 92.7 H Lymphocytes % 2.5 L Monocytes % 2.9 Eosinophils % 0.9 Basophils % 0.1 Nucleated Red Blood Cells % 0.0 Neutrophils # 17.9 H Lymphocytes # 0.5 L Monocytes # 0.6 Eosinophils # 0.2 Basophils # 0.0 Nucleated Red Blood Cells # 0.0 Sodium Level 130 L Potassium Level 3.9 Chloride Level 97 Carbon Dioxide Level 23 Anion Gap 14 Blood Urea Nitrogen 53 H Creatinine 3.31 H Glucose Level 167 Calcium Level 9.6 Phosphorus Level 4.9 Magnesium Level 2.4 Medications Current Medications Naloxone HCl (Narcan) 0.4 mg Q4 PRN IV SEDATION; Start 01/05/17 at 01:30 Bisacodyl (Dulcolax Supp) 10 mg DAILY MT Last administered on 01/26/17 09:57; Admin Dose 10 MG; Start 01/06/17 at 09:00; Status Future Hold Budesonide (Pulmicort (Neb)) 0.25 mg BID NEB Last administered on 01/27/17 19: 51; Admin Dose 0.25 MG; Start 01/05/17 at 10:30 Fluticasone Propionate (Flonase 0.05% Nasal) 1 spray DAILY NASAL Last administered on 01/27/17 08:42; Admin Dose 1 SPRAY; Start 01/05/17 at 11:00 Fulvestrant (Faslodex) 500 mg Q28D IM ; Start 01/29/17 at 09:00 Magnesium Hydroxide (Milk Of Mag) 30 ml BID PRN PO CONSTIPATION Last administered on 01/16/17 09:09; Admin Dose 30 ML; Start 01/05/17 at 10:30 Nitroglycerin (Nitroglycerin 2% Oint) 0.5 inch Q6 PRN TD CHEST PAIN; Start 03/13 at 10:30 Ondansetron HCl (Zofran Inj) 4 mg Q6H PRN IV NAUSEA Last administered on 14:23; Admin Dose 4 MG; Start 01/05/17 at 10:30 Prednisone (Prednisone) 5 mg DAILY PO Last administered on 01/27/17 08:42; Admin Dose 5 MG; Start 01/05/17 at 12:00 Prednisone (Prednisone) 3 mg DAILY PO Last administered on 01/27/17 08:43; Admin Dose 3 MG; Start 01/05/17 at 12:00 Miscellaneous Information 1 ea NOTE XX ; Start 01/05/17 at 11:00 Glucose (Glutose) 15 gm Q15M PRN PO DECREASED GLUCOSE; Start 01/05/17 at 11:00 Glucose (Glutose) 22.5 gm Q15M PRN PO DECREASED GLUCOSE; Start 01/05/17 at 11: 00 Dextrose (D50w Syringe) 25 ml Q15M PRN IV DECREASED GLUCOSE Last administered on 01/23/17 03:45; Admin Dose 25 ML; Start 01/05/17 at 11:00 Dextrose (D50w Syringe) 50 ml Q15M PRN IV DECREASED GLUCOSE Last administered on 01/08/17 21:33; Admin Dose 50 ML; Start 01/05/17 at 11:00 Glucagon (Glucagen) 1 mg Q15M PRN IM DECREASED GLUCOSE Last administered on 21:08; Admin Dose 1 MG; Start 01/05/17 at 11:00 Glucose 15 gm 15 gm Q15M PRN BUCCAL DECREASED GLUCOSE Last administered on 01/23 21:36; Admin Dose 15 GM; Start 01/05/17 at 11:00 Fentanyl 100 ml @ 2.5 mls/hr TITRATE IV Last administered on 01/07/17 02:25; Admin Dose 7.5 MLS/HR; Start 01/06/17 at 09:30 Norepinephrine/ Dextrose (Levophed/D5W) 500 ml @ 0 mls/hr TITRATE IV ; Start 04/12 at 13:30 Bumetanide 1 mg 1 mg BID IV Last administered on 01/13/17 21:06; Admin Dose 1 MG; Start 01/08/17 at 09:00; Status Future Hold Propofol (Diprivan) 100 ml @ 2.19 mls/hr Q12H IV Last administered on 07:04; Admin Dose 15.28 MLS/HR; Start 01/08/17 at 16:00 Acetaminophen (Tylenol Tab) 650 mg Q6H PRN NGT PAIN AND OR ELEVATED TEMP; Start 01/17/17 at 22:30 Apixaban (Eliquis) 2.5 mg BID NGT Last administered on 01/18/17 08:20; Admin Dose 2.5 MG; Start 01/17/17 at 21:00; Status Future Hold Ascorbic Acid (Vitamin C) 500 mg BID NGT Last administered on 01/27/17 20:57; Admin Dose 500 MG; Start 01/17/17 at 21:00 Levothyroxine Sodium (Synthroid) 75 mcg DAILY@06 NGT Last administered on 05:06; Admin Dose 75 MCG; Start 01/18/17 at 06:00 Loratadine (Claritin) 10 mg DAILY NGT Last administered on 01/27/17 08:43; Admin Dose 10 MG; Start 01/18/17 at 09:00 Metoprolol Tartrate (Lopressor) 25 mg BID NGT Last administered on 01/27/17 20 :56; Admin Dose 25 MG; Start 01/17/17 at 21:00 Mirtazapine (Remeron) 15 mg HS NGT Last administered on 01/27/17 20:57; Admin Dose 15 MG; Start 01/17/17 at 21:00 Oxcarbazepine (Trileptal) 600 mg BID NGT Last administered on 01/27/17 20:56; Admin Dose 600 MG; Start 01/17/17 at 21:00 Senna (Senokot) 1 tab HS NGT Last administered on 01/25/17 20:06; Admin Dose 1 TAB; Start 01/17/17 at 21:00; Status Future Hold Sertraline HCl (Zoloft) 75 mg DAILY NGT Last administered on 01/27/17 08:43; Admin Dose 75 MG; Start 01/18/17 at 09:00 Sildenafil Citrate (Revatio) 20 mg TID NGT Last administered on 01/27/17 20:57 ; Admin Dose 20 MG; Start 01/17/17 at 21:00 Docusate Sodium (Colace Liquid Cup) 100 mg BID NGT Last administered on 09:55; Admin Dose 100 MG; Start 01/17/17 at 21:00; Status Future Hold Famotidine (Pepcid) 20 mg DAILY NGT Last administered on 01/27/17 08:42; Admin Dose 20 MG; Start 01/20/17 at 09:00 Lorazepam (Ativan) 1 mg Q6H PRN IV anxiety Last administered on 01/26/17 16:24 ; Admin Dose 1 MG; Start 01/22/17 at 09:00 Tacrolimus (Prograf) 2 mg QPM NGT Last administered on 01/27/17 20:57; Admin Dose 2 MG; Start 01/24/17 at 21:00 Diagnostic Test (Pha) (Accu-Chek) 1 ea 02 XX Last administered on 01/26/17 02: 09; Admin Dose 1 EA; Start 01/26/17 at 02:00 Diagnostic Test (Pha) (Accu-Chek) 1 ea 02 XX ; Start 01/27/17 at 02:00 Insulin Aspart (Novolog Insulin Pen) NOVOLOG *MODERATE* ALGORI... Q4 SC Last administered on 01/28/17 05:08; Admin Dose 2 UNIT; Start 01/26/17 at 17:00 Metoclopramide HCl (Reglan) 5 mg Q8H PRN IV VOMITTING; Start 01/26/17 at 15:30 Hydralazine HCl (Apresoline) 25 mg TID PRN GTB ELEVATED SYSTOLIC BP Last administered on 01/28/17 05:06; Admin Dose 25 MG; Start 01/27/17 at 07:00 Insulin Glargine (Lantus) 7 unit BID@08,20 SC ; Start 01/28/17 at 08:00 Assessment/Plan Chief Complaint/Hosp Course Assessment: 1. s/p cardiopulmonary arrest: Most likely due to pulmonary arrest 2. P afib: now remains in persistent Afib. 3. History of renal failure status post renal transplant: now with KATI on CKD: currently requiring HD. 4. Acute on chronic hypoxemic hypercapnic respiratory failure status post reintubation: currently on the vent: AWAITING TRACH. 5. Shock: resolved now. 6. ANEMIA 7. breast cancer 8. history of HTN: 9. anxiety 10. DM 11. Hypothyroidism: on synthroid. 12. pleural effusion : s/p thoracentesis 13. Dysphagia: s/p PEG Recommendations: vent support for now anti- rejection medications to be adjusted as per renal team. HD as per renal. cont DM control thyroid supplement betablocker as tolerated. correct lytes prn cont tele monitoring transfusion prn resume eliquis. Thank you for this referral I will continue to follow along with you. AUGUSTINA MALDONADO MD [facility] Problems: AUGUSTINA MALDONADO MD Jan 28, 2017 07:35
[2017-01-28] MEDS: APIXABAN 5 MG TABLET NGT SCH ×2 (07:40→20:48)
[2017-01-28] MEDS: INSULIN GLARGINE [LANtus] 3 ML PEN SC SCH ×2 (07:57→21:32)
[2017-01-28] MEDS: METOPROLOL 25 MG TAB NGT SCH ×2 (08:01→20:47)
[2017-01-28] MEDS: SILDENAFIL 20 MG TAB NGT SCH ×3 (08:01→20:47)
[2017-01-28] MEDS: predniSONE 5 MG TAB PO SCH (08:02)
[2017-01-28] MEDS: OXCARBAZEPINE 300 MG TAB NGT SCH ×2 (08:02→20:47)
[2017-01-28] MEDS: LORATADINE 10 MG TAB NGT SCH (08:02)
[2017-01-28] MEDS: ASCORBIC ACID 500 MG TAB NGT SCH ×2 (08:02→20:47)
[2017-01-28] MEDS: TACROLIMUS 1 MG CAP NGT SCH ×2 (08:02→20:48)
[2017-01-28] MEDS: FAMOTIDINE 20 MG TAB NGT SCH (08:02)
[2017-01-28] MEDS: predniSONE 1 MG TAB PO SCH (08:03)
[2017-01-28] MEDS: SERTRALINE 50 MG TAB NGT SCH (08:03)
[2017-01-28] MEDS: FLUTICASONE 0.05% 16 GM NAS SPRAY NASAL SCH (08:05)
[2017-01-28] MEDS: BALSAM PERU/CASTOR OIL 60 GM TUBE TOP SCH (08:06)
[2017-01-28] MEDS: BUDESONIDE (NEB) 0.25 MG/2 ML AMP NEB SCH ×2 (08:07→20:00)
[2017-01-28] MEDS ORDERED: PROPOFOL 40 ML ONE (09:20)
--- NOTE | 2017-01-28 09:56 | PN ---
DATE: 01/28/2017 SUBJECTIVE: The patient yesterday had a trach placement without complications. No other events not ed. No hemoptysis, hematemesis or hematochezia. OBJECTIVE: VITAL SIGNS: Blood pressure is 104/82, pulse 127, respiration rate 25, temperature 98.6. HEENT: Head is normocephalic. NECK: Supple. HEART: Regular rate. LUNGS: Show diminished breath sounds at the base. ABDOMEN: Soft, nontender to palpation. No rebound or guarding. EXTREMITIES: Negative for clubbing, cyanosis, or edema. DERMATOLOGIC: No rashes. MUSCULOSKELETAL: No joint effusions. NEUROLOGIC: No change in exam. MEDICATIONS: The patient's medications have been reviewed. LABORATORY DATA: Shows a sodium 130, BUN 53, creatinine 3.31. White count 19.4, hemoglobin 10.4, h ematocrit 32.8, platelet count is 353. ASSESSMENT AND PLAN: 1. 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 Etiology secondary to acute t ubular necrosis due to ischemic hypoperfusion, septic shock. The patient is currently dialysis depe ndent. No are no signs of recovery. Continue intermittent dialysis. 2. Hyponatremia. Continue dialysis on a 140 sodium bath. Sodium levels have been improving. 3. Paroxysmal atrial fibrillation. Continue current medical management and follow up with Cardiolo gy. 4. Sepsis, status post shock secondary to pneumonia. The patient has completed antibiotic course, monitor closely. 5. Leukocytosis, etiology is unclear, may be due to stress. Will monitor closely. Follow up with Infectious Disease. 6. Fungal urinary tract infection. The patient is status post antifungal therapy. 7. End-stage renal disease. The patient is status post renal transplant with chronic allograft oscar lure. The patient is currently in acute kidney injury as stated above. Continue current immunosupp ressive regimen. Follow a Prograf level. Continue medical management. 8. Hypothyroidism. Continue Synthroid. 9. Anemia. Monitor hemoglobin and hematocrit levels. 10. Diabetes. Continue Accu-Cheks, insulin sliding scale. 11. Pulmonary hypertension. Continue medical management. 12. Ventilator-dependent respiratory failure, status post trach. Continue to monitor. 13. Dysphagia. Continue tube feeding. 14. History of breast cancer. Follow up with hematology. 15. Bilateral pleural effusion, status post thoracentesis. 16. Hypothyroidism. Continue Synthroid. 17. Gastrointestinal and deep venous thrombosis prophylaxis. DISPOSITION: We will place a Doss evaluation. Dictated By: SUSAN HERRON/AFSHAN Conf#: [id number] DID#: [id number]
--- NOTE | 2017-01-28 10:08 | CONS ---
Date/Time of Note Date/Time of Note DATE: 01/28/17 TIME: 10:05 Consult Date/Type/Reason Admit Date/Time Jan 05, 2017 at 00:15 Initial Consult Date 01/05/17 Type of Consultation: Pulmonary Ordering Provider: SUSAN SIMENTAL DO Subjective Patient stable this morning following tracheostomy. No events overnight. Objective Vital Signs Date Time Temp Pulse Resp B/P Pulse Ox O2 Delivery O2 Flow Rate FiO2 01/28/17 09:21 90 18 98 30 01/28/17 05:30 104/82 Mechanical Ventilator 01/28/17 04:00 98.0 Intake and Output 01/27/17 01/27/17 01/28/17 15:00 23:00 07:00 Intake Total 250 ml 370 ml 170 ml Output Total 0 ml 0 ml 0 ml Balance 250 ml 370 ml 170 ml Exam GENERAL: Elderly lady comfortable at rest no acute distress, continues mechanical ventilation VITAL SIGNS: per chart NECK: Supple. No JVD or lymphadenopathy. CARDIAC EXAM: S1, S2. No added sounds or murmurs. CHEST: Diminished air entry bilaterally no rales or wheezes ABDOMEN: Soft, nontender. No guarding or rebound. EXTREMITIES: No cyanosis, clubbing or edema. NEUROLOGIC: Generalized weakness. No focal deficits. Results/Medications Result Diagram: 01/28/17 0535 01/28/17 0535 Results 24 hrs Laboratory Tests Test 01/27/17 12:36 01/27/17 17:30 01/27/17 20:55 01/28/17 01:06 Bedside Glucose 141 134 126 120 Test 01/28/17 05:04 01/28/17 05:35 01/28/17 07:36 Bedside Glucose 170 177 White Blood Count 19.4 #H Red Blood Count 3.52 L Hemoglobin 10.4 L Hematocrit 32.8 L Mean Corpuscular Volume 93.2 Mean Corpuscular Hemoglobin 29.5 Mean Corpuscular Hemoglobin Concent 31.7 L Red Cell Distribution Width 14.7 H Platelet Count 353 Mean Platelet Volume 9.6 Neutrophils % 92.7 H Lymphocytes % 2.5 L Monocytes % 2.9 Eosinophils % 0.9 Basophils % 0.1 Nucleated Red Blood Cells % 0.0 Neutrophils # 17.9 H Lymphocytes # 0.5 L Monocytes # 0.6 Eosinophils # 0.2 Basophils # 0.0 Nucleated Red Blood Cells # 0.0 Sodium Level 130 L Potassium Level 3.9 Chloride Level 97 Carbon Dioxide Level 23 Anion Gap 14 Blood Urea Nitrogen 53 H Creatinine 3.31 H Glucose Level 167 Calcium Level 9.6 Phosphorus Level 4.9 Magnesium Level 2.4 Medications Current Medications Naloxone HCl (Narcan) 0.4 mg Q4 PRN IV SEDATION; Start 01/05/17 at 01:30 Bisacodyl (Dulcolax Supp) 10 mg DAILY MA Last administered on 01/26/17 09:57; Admin Dose 10 MG; Start 01/06/17 at 09:00; Status Future Hold Budesonide (Pulmicort (Neb)) 0.25 mg BID NEB Last administered on 01/28/17 08: 07; Admin Dose 0.25 MG; Start 01/05/17 at 10:30 Fluticasone Propionate (Flonase 0.05% Nasal) 1 spray DAILY NASAL Last administered on 01/27/17 08:42; Admin Dose 1 SPRAY; Start 01/05/17 at 11:00 Fulvestrant (Faslodex) 500 mg Q28D IM ; Start 01/29/17 at 09:00 Magnesium Hydroxide (Milk Of Mag) 30 ml BID PRN PO CONSTIPATION Last administered on 01/16/17 09:09; Admin Dose 30 ML; Start 01/05/17 at 10:30 Nitroglycerin (Nitroglycerin 2% Oint) 0.5 inch Q6 PRN TD CHEST PAIN; Start 03/13 at 10:30 Ondansetron HCl (Zofran Inj) 4 mg Q6H PRN IV NAUSEA Last administered on 14:23; Admin Dose 4 MG; Start 01/05/17 at 10:30 Prednisone (Prednisone) 5 mg DAILY PO Last administered on 01/28/17 08:02; Admin Dose 5 MG; Start 01/05/17 at 12:00 Prednisone (Prednisone) 3 mg DAILY PO Last administered on 01/28/17 08:03; Admin Dose 3 MG; Start 01/05/17 at 12:00 Miscellaneous Information 1 ea NOTE XX ; Start 01/05/17 at 11:00 Glucose (Glutose) 15 gm Q15M PRN PO DECREASED GLUCOSE; Start 01/05/17 at 11:00 Glucose (Glutose) 22.5 gm Q15M PRN PO DECREASED GLUCOSE; Start 01/05/17 at 11: 00 Dextrose (D50w Syringe) 25 ml Q15M PRN IV DECREASED GLUCOSE Last administered on 01/23/17 03:45; Admin Dose 25 ML; Start 01/05/17 at 11:00 Dextrose (D50w Syringe) 50 ml Q15M PRN IV DECREASED GLUCOSE Last administered on 01/08/17 21:33; Admin Dose 50 ML; Start 01/05/17 at 11:00 Glucagon (Glucagen) 1 mg Q15M PRN IM DECREASED GLUCOSE Last administered on 21:08; Admin Dose 1 MG; Start 01/05/17 at 11:00 Glucose 15 gm 15 gm Q15M PRN BUCCAL DECREASED GLUCOSE Last administered on 01/23 21:36; Admin Dose 15 GM; Start 01/05/17 at 11:00 Fentanyl 100 ml @ 2.5 mls/hr TITRATE IV Last administered on 01/07/17 02:25; Admin Dose 7.5 MLS/HR; Start 01/06/17 at 09:30 Norepinephrine/ Dextrose (Levophed/D5W) 500 ml @ 0 mls/hr TITRATE IV ; Start 04/12 at 13:30 Bumetanide 1 mg 1 mg BID IV Last administered on 01/13/17 21:06; Admin Dose 1 MG; Start 01/08/17 at 09:00; Status Future Hold Propofol (Diprivan) 100 ml @ 2.19 mls/hr Q12H IV Last administered on 07:04; Admin Dose 15.28 MLS/HR; Start 01/08/17 at 16:00 Acetaminophen (Tylenol Tab) 650 mg Q6H PRN NGT PAIN AND OR ELEVATED TEMP; Start 01/17/17 at 22:30 Apixaban (Eliquis) 2.5 mg BID NGT Last administered on 01/18/17 08:20; Admin Dose 2.5 MG; Start 01/17/17 at 21:00; Status Future hold Ascorbic Acid (Vitamin C) 500 mg BID NGT Last administered on 01/28/17 08:02; Admin Dose 500 MG; Start 01/17/17 at 21:00 Levothyroxine Sodium (Synthroid) 75 mcg DAILY@06 NGT Last administered on 05:06; Admin Dose 75 MCG; Start 01/18/17 at 06:00 Loratadine (Claritin) 10 mg DAILY NGT Last administered on 01/28/17 08:02; Admin Dose 10 MG; Start 01/18/17 at 09:00 Metoprolol Tartrate (Lopressor) 25 mg BID NGT Last administered on 01/28/17 08 :01; Admin Dose 25 MG; Start 01/17/17 at 21:00 Mirtazapine (Remeron) 15 mg HS NGT Last administered on 01/27/17 20:57; Admin Dose 15 MG; Start 01/17/17 at 21:00 Oxcarbazepine (Trileptal) 600 mg BID NGT Last administered on 01/28/17 08:02; Admin Dose 600 MG; Start 01/17/17 at 21:00 Senna (Senokot) 1 tab HS NGT Last administered on 01/25/17 20:06; Admin Dose 1 TAB; Start 01/17/17 at 21:00; Status Future Hold Sertraline HCl (Zoloft) 75 mg DAILY NGT Last administered on 01/28/17 08:03; Admin Dose 75 MG; Start 01/18/17 at 09:00 Sildenafil Citrate (Revatio) 20 mg TID NGT Last administered on 01/28/17 08:01 ; Admin Dose 20 MG; Start 01/17/17 at 21:00 Docusate Sodium (Colace Liquid Cup) 100 mg BID NGT Last administered on 09:55; Admin Dose 100 MG; Start 01/17/17 at 21:00; Status Future Hold Famotidine (Pepcid) 20 mg DAILY NGT Last administered on 01/28/17 08:02; Admin Dose 20 MG; Start 01/20/17 at 09:00 Lorazepam (Ativan) 1 mg Q6H PRN IV anxiety Last administered on 01/26/17 16:24 ; Admin Dose 1 MG; Start 01/22/17 at 09:00 Tacrolimus (Prograf) 2 mg QPM NGT Last administered on 01/27/17 20:57; Admin Dose 2 MG; Start 01/24/17 at 21:00 Diagnostic Test (Pha) (Accu-Chek) 1 ea 02 XX Last administered on 01/26/17 02: 09; Admin Dose 1 EA; Start 01/26/17 at 02:00 Diagnostic Test (Pha) (Accu-Chek) 1 ea XX ; Start 01/27/17 at 02:00 Insulin Aspart (Novolog Insulin Pen) NOVOLOG *MODERATE* ALGORI... Q4 SC Last administered on 01/28/17 07:58; Admin Dose 2 UNIT; Start 01/26/17 at 17:00 Metoclopramide HCl (Reglan) 5 mg Q8H PRN IV VOMITTING; Start 01/26/17 at 15:30 Hydralazine HCl (Apresoline) 25 mg TID PRN GTB ELEVATED SYSTOLIC BP Last administered on 01/28/17 08:05; Admin Dose 25 MG; Start 01/27/17 at 07:00 Insulin Glargine (Lantus) 7 unit BID@08,20 SC Last administered on 01/28/17 07 :57; Admin Dose 7 UNIT; Start 01/28/17 at 08:00 Assessment/Plan Chief Complaint/Hosp Course IMPRESSION: 1. Hypoxemic respiratory failure. Status post thoracentesis. Status post thoracentesis. 2. Possible altered mental status secondary to opioids. Significant anxiety component. 3. History of renal transplant. Renal insufficiency. Hyponatremia. 4. Dysphagia now with G-tube 5. Persistent leukocytosis. PLAN: 1. Continue supportive care, continue trach care. Continue mechanical ventilation. 2. Decrease sedation as tolerated. 3. Continue ID recommendations 4. Renal recommendations. 5. DVT and GI prophylaxis. 6. Resume tube feeding. Critical care time 40 minutes. Prognosis guarded. Problems: LESA SAMUELS MD, [facility] Jan 28, 2017 10:08
--- NOTE | 2017-01-28 11:00 | CONS ---
Date/Time of Note Date/Time of Note DATE: 01/28/17 TIME: 10:59 Assessment/Plan Assessment/Plan Chief Complaint/Hosp Course History of breast cancer with lung metastasis. The patient is on medical management. on Faslodex as outpt ANOTHER DOSE IS ORDERED Anemia. Monitor hemoglobin and hematocrit levels. 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 Congestive heart failure exacerbation. Hypothyroidism. Diabetes. Continue current insulin regimen. Pulmonary hypertension. Depression. Problems: Consultation Date/Type/Reason Admit Date/Time Jan 05, 2017 at 00:15 Initial Consult Date 01/05/17 Type of Consultation: [facility] Referring Provider: SUSAN SIMENTAL DO Exam/Review of Systems Vital Signs Vitals Vital Signs Date Time Temp Pulse Resp B/P Pulse Ox O2 Delivery O2 Flow Rate FiO2 01/28/17 09:21 90 18 98 30 01/28/17 05:30 104/82 Mechanical Ventilator 01/28/17 04:00 98.0 Intake and Output 01/27/17 01/27/17 01/28/17 15:00 23:00 07:00 Intake Total 250 ml 370 ml 170 ml Output Total 0 ml 0 ml 0 ml Balance 250 ml 370 ml 170 ml Exam HEENT: Head is normocephalic. NECK: Supple. HEART: Regular rate. LUNGS: Show diminished breath sounds base. Positive rhonchi. ABDOMEN: Soft, nontender to palpation. No rebound or guarding. EXTREMITIES: Negative for clubbing, cyanosis. No edema. DERMATOLOGIC: Clean. No rashes. MUSCULOSKELETAL: No joint effusion. NEUROLOGIC: No change in exam. Results Result Diagram: 01/28/17 0535 01/28/17 0535 Results 24 hrs Laboratory Tests Test 01/27/17 12:36 01/27/17 17:30 01/27/17 20:55 01/28/17 01:06 Bedside Glucose 141 134 126 120 Test 01/28/17 05:04 01/28/17 05:35 01/28/17 07:36 Bedside Glucose 170 177 White Blood Count 19.4 #H Red Blood Count 3.52 L Hemoglobin 10.4 L Hematocrit 32.8 L Mean Corpuscular Volume 93.2 Mean Corpuscular Hemoglobin 29.5 Mean Corpuscular Hemoglobin Concent 31.7 L Red Cell Distribution Width 14.7 H Platelet Count 353 Mean Platelet Volume 9.6 Neutrophils % 92.7 H Lymphocytes % 2.5 L Monocytes % 2.9 Eosinophils % 0.9 Basophils % 0.1 Nucleated Red Blood Cells % 0.0 Neutrophils # 17.9 H Lymphocytes # 0.5 L Monocytes # 0.6 Eosinophils # 0.2 Basophils # 0.0 Nucleated Red Blood Cells # 0.0 Sodium Level 130 L Potassium Level 3.9 Chloride Level 97 Carbon Dioxide Level 23 Anion Gap 14 Blood Urea Nitrogen 53 H Creatinine 3.31 H Glucose Level 167 Calcium Level 9.6 Phosphorus Level 4.9 Magnesium Level 2.4 Medications Medications Current Medications Naloxone HCl (Narcan) 0.4 mg Q4 PRN IV SEDATION; Start 01/05/17 at 01:30 Bisacodyl (Dulcolax Supp) 10 mg DAILY NM Last administered on 01/26/17 09:57; Admin Dose 10 MG; Start 01/06/17 at 09:00; Status Future Hold Budesonide (Pulmicort (Neb)) 0.25 mg BID NEB Last administered on 01/28/17 08: 07; Admin Dose 0.25 MG; Start 01/05/17 at 10:30 Fluticasone Propionate (Flonase 0.05% Nasal) 1 spray DAILY NASAL Last administered on 01/27/17 08:42; Admin Dose 1 SPRAY; Start 01/05/17 at 11:00 Fulvestrant (Faslodex) 500 mg Q28D IM ; Start 01/29/17 at 09:00 Magnesium Hydroxide (Milk Of Mag) 30 ml BID PRN PO CONSTIPATION Last administered on 01/16/17 09:09; Admin Dose 30 ML; Start 01/05/17 at 10:30 Nitroglycerin (Nitroglycerin 2% Oint) 0.5 inch Q6 PRN TD CHEST PAIN; Start 03/13 at 10:30 Ondansetron HCl (Zofran Inj) 4 mg Q6H PRN IV NAUSEA Last administered on 14:23; Admin Dose 4 MG; Start 01/05/17 at 10:30 Prednisone (Prednisone) 5 mg DAILY PO Last administered on 01/28/17 08:02; Admin Dose 5 MG; Start 01/05/17 at 12:00 Prednisone (Prednisone) 3 mg DAILY PO Last administered on 01/28/17 08:03; Admin Dose 3 MG; Start 01/05/17 at 12:00 Miscellaneous Information 1 ea NOTE XX ; Start 01/05/17 at 11:00 Glucose (Glutose) 15 gm Q15M PRN PO DECREASED GLUCOSE; Start 01/05/17 at 11:00 Glucose (Glutose) 22.5 gm Q15M PRN PO DECREASED GLUCOSE; Start 01/05/17 at 11: 00 Dextrose (D50w Syringe) 25 ml Q15M PRN IV DECREASED GLUCOSE Last administered on 01/23/17 03:45; Admin Dose 25 ML; Start 01/05/17 at 11:00 Dextrose (D50w Syringe) 50 ml Q15M PRN IV DECREASED GLUCOSE Last administered on 01/08/17 21:33; Admin Dose 50 ML; Start 01/05/17 at 11:00 Glucagon (Glucagen) 1 mg Q15M PRN IM DECREASED GLUCOSE Last administered on 21:08; Admin Dose 1 MG; Start 01/05/17 at 11:00 Glucose 15 gm 15 gm Q15M PRN BUCCAL DECREASED GLUCOSE Last administered on 01/23 21:36; Admin Dose 15 GM; Start 01/05/17 at 11:00 Fentanyl 100 ml @ 2.5 mls/hr TITRATE IV Last administered on 01/07/17 02:25; Admin Dose 7.5 MLS/HR; Start 01/06/17 at 09:30 Norepinephrine/ Dextrose (Levophed/D5W) 500 ml @ 0 mls/hr TITRATE IV ; Start 04/12 at 13:30 Bumetanide 1 mg 1 mg BID IV Last administered on 01/13/17 21:06; Admin Dose 1 MG; Start 01/08/17 at 09:00; Status Future Hold Propofol (Diprivan) 100 ml @ 2.19 mls/hr Q12H IV Last administered on 07:04; Admin Dose 15.28 MLS/HR; Start 01/08/17 at 16:00 Acetaminophen (Tylenol Tab) 650 mg Q6H PRN NGT PAIN AND OR ELEVATED TEMP; Start 01/17/17 at 22:30 Apixaban (Eliquis) 2.5 mg BID NGT Last administered on 01/18/17 08:20; Admin Dose 2.5 MG; Start 01/17/17 at 21:00; Status Future hold Ascorbic Acid (Vitamin C) 500 mg BID NGT Last administered on 01/28/17 08:02; Admin Dose 500 MG; Start 01/17/17 at 21:00 Levothyroxine Sodium (Synthroid) 75 mcg DAILY@06 NGT Last administered on 05:06; Admin Dose 75 MCG; Start 01/18/17 at 06:00 Loratadine (Claritin) 10 mg DAILY NGT Last administered on 01/28/17 08:02; Admin Dose 10 MG; Start 01/18/17 at 09:00 Metoprolol Tartrate (Lopressor) 25 mg BID NGT Last administered on 01/28/17 08 :01; Admin Dose 25 MG; Start 01/17/17 at 21:00 Mirtazapine (Remeron) 15 mg HS NGT Last administered on 01/27/17 20:57; Admin Dose 15 MG; Start 01/17/17 at 21:00 Oxcarbazepine (Trileptal) 600 mg BID NGT Last administered on 01/28/17 08:02; Admin Dose 600 MG; Start 01/17/17 at 21:00 Senna (Senokot) 1 tab HS NGT Last administered on 01/25/17 20:06; Admin Dose 1 TAB; Start 01/17/17 at 21:00; Status Future Hold Sertraline HCl (Zoloft) 75 mg DAILY NGT Last administered on 01/28/17 08:03; Admin Dose 75 MG; Start 01/18/17 at 09:00 Sildenafil Citrate (Revatio) 20 mg TID NGT Last administered on 01/28/17 08:01 ; Admin Dose 20 MG; Start 01/17/17 at 21:00 Docusate Sodium (Colace Liquid Cup) 100 mg BID NGT Last administered on 09:55; Admin Dose 100 MG; Start 01/17/17 at 21:00; Status Future Hold Famotidine (Pepcid) 20 mg DAILY NGT Last administered on 01/28/17 08:02; Admin Dose 20 MG; Start 01/20/17 at 09:00 Lorazepam (Ativan) 1 mg Q6H PRN IV anxiety Last administered on 01/26/17 16:24 ; Admin Dose 1 MG; Start 01/22/17 at 09:00 Tacrolimus (Prograf) 2 mg QPM NGT Last administered on 01/27/17 20:57; Admin Dose 2 MG; Start 01/24/17 at 21:00 Diagnostic Test (Pha) (Accu-Chek) 1 ea 02 XX Last administered on 01/26/17 02: 09; Admin Dose 1 EA; Start 01/26/17 at 02:00 Diagnostic Test (Pha) (Accu-Chek) 1 ea 02 XX ; Start 01/27/17 at 02:00 Insulin Aspart (Novolog Insulin Pen) NOVOLOG *MODERATE* ALGORI... Q4 SC Last administered on 01/28/17 07:58; Admin Dose 2 UNIT; Start 01/26/17 at 17:00 Metoclopramide HCl (Reglan) 5 mg Q8H PRN IV VOMITTING; Start 01/26/17 at 15:30 Hydralazine HCl (Apresoline) 25 mg TID PRN GTB ELEVATED SYSTOLIC BP Last administered on 01/28/17 08:05; Admin Dose 25 MG; Start 01/27/17 at 07:00 Insulin Glargine (Lantus) 7 unit BID@08,20 SC Last administered on 01/28/17 07 :57; Admin Dose 7 UNIT; Start 01/28/17 at 08:00 SHANICE DAVENPORT MD Jan 28, 2017 11:00
--- NOTE | 2017-01-28 11:56 | CONS ---
Date/Time of Note Date/Time of Note DATE: 01/28/17 TIME: 11:55 Assessment/Plan Assessment/Plan Additional Assessment/Plan Additional Assessment/Plan Additional Assessment/Plan 1. Respiratory failure. 2. Dysphagia. 3. Sepsis. 4. Renal failure. 5. Diabetes mellitus. 6. Breast cancer with metastasis. 7. Chronic obstructive pulmonary disease. 8. Pulmonary hypertension. 9. Atrial fibrillation. 10. Deconditioning 11. Status post renal transplant on immunosuppressive medication 12. Persistent leukocytosis 13. Respiratory failure reintubated 14. Status post PEG 15. Anemia, no evidence of active bleeding. Hematocrit is stable Plan Continue feeding Continue present care G-tube is in place, contrary to the x-ray report There is no evidence of active GI bleeding. Staff noted black colored stool last night and had called me Continue to monitor H&H Consultation Date/Type/Reason Admit Date/Time Jan 05, 2017 at 00:15 Initial Consult Date 01/05/17 Type of Consultation: [facility] Referring Provider: SUSAN SIMENTAL DO 24 HR Interval Summary Subjective hx not possible: pt non-verbal Exam/Review of Systems Vital Signs Vitals Vital Signs Date Time Temp Pulse Resp B/P Pulse Ox O2 Delivery O2 Flow Rate FiO2 01/28/17 09:21 90 18 98 30 01/28/17 05:30 104/82 Mechanical Ventilator 01/28/17 04:00 98.0 Intake and Output 01/27/17 01/27/17 01/28/17 15:00 23:00 07:00 Intake Total 250 ml 370 ml 170 ml Output Total 0 ml 0 ml 0 ml Balance 250 ml 370 ml 170 ml Exam Respiratory: other (Status post tracheostomy on vent) Gastrointestinal: nl liver, spleen, non-tender, soft Extremities: normal pulses Neurological: CARBONIZER II-XII intact, nl mental status, nl speech, nl strength Results Result Diagram: 01/28/17 0535 01/28/17 0535 Results 24 hrs Laboratory Tests Test 01/27/17 12:36 01/27/17 17:30 01/27/17 20:55 01/28/17 01:06 Bedside Glucose 141 134 126 120 Test 01/28/17 05:04 01/28/17 05:35 01/28/17 07:36 01/28/17 11:14 Bedside Glucose 170 177 173 White Blood Count 19.4 #H Red Blood Count 3.52 L Hemoglobin 10.4 L Hematocrit 32.8 L Mean Corpuscular Volume 93.2 Mean Corpuscular Hemoglobin 29.5 Mean Corpuscular Hemoglobin Concent 31.7 L Red Cell Distribution Width 14.7 H Platelet Count 353 Mean Platelet Volume 9.6 Neutrophils % 92.7 H Lymphocytes % 2.5 L Monocytes % 2.9 Eosinophils % 0.9 Basophils % 0.1 Nucleated Red Blood Cells % 0.0 Neutrophils # 17.9 H Lymphocytes # 0.5 L Monocytes # 0.6 Eosinophils # 0.2 Basophils # 0.0 Nucleated Red Blood Cells # 0.0 Sodium Level 130 L Potassium Level 3.9 Chloride Level 97 Carbon Dioxide Level 23 Anion Gap 14 Blood Urea Nitrogen 53 H Creatinine 3.31 H Glucose Level 167 Calcium Level 9.6 Phosphorus Level 4.9 Magnesium Level 2.4 Medications Medications Current Medications Naloxone HCl (Narcan) 0.4 mg Q4 PRN IV SEDATION; Start 01/05/17 at 01:30 Bisacodyl (Dulcolax Supp) 10 mg DAILY [place] Last administered on 01/26/17 09:57; Admin Dose 10 MG; Start 01/06/17 at 09:00; Status Future Hold Budesonide (Pulmicort (Neb)) 0.25 mg BID NEB Last administered on 01/28/17 08: 07; Admin Dose 0.25 MG; Start 01/05/17 at 10:30 Fluticasone Propionate (Flonase 0.05% Nasal) 1 spray DAILY NASAL Last administered on 01/27/17 08:42; Admin Dose 1 SPRAY; Start 01/05/17 at 11:00 Fulvestrant (Faslodex) 500 mg Q28D IM ; Start 01/29/17 at 09:00 Magnesium Hydroxide (Milk Of Mag) 30 ml BID PRN PO CONSTIPATION Last administered on 01/16/17 09:09; Admin Dose 30 ML; Start 01/05/17 at 10:30 Nitroglycerin (Nitroglycerin 2% Oint) 0.5 inch Q6 PRN TD CHEST PAIN; Start 03/13 at 10:30 Ondansetron HCl (Zofran Inj) 4 mg Q6H PRN IV NAUSEA Last administered on 14:23; Admin Dose 4 MG; Start 01/05/17 at 10:30 Prednisone (Prednisone) 5 mg DAILY PO Last administered on 01/28/17 08:02; Admin Dose 5 MG; Start 01/05/17 at 12:00 Prednisone (Prednisone) 3 mg DAILY PO Last administered on 01/28/17 08:03; Admin Dose 3 MG; Start 01/05/17 at 12:00 Miscellaneous Information 1 ea NOTE XX ; Start 01/05/17 at 11:00 Glucose (Glutose) 15 gm Q15M PRN PO DECREASED GLUCOSE; Start 01/05/17 at 11:00 Glucose (Glutose) 22.5 gm Q15M PRN PO DECREASED GLUCOSE; Start 01/05/17 at 11: 00 Dextrose (D50w Syringe) 25 ml Q15M PRN IV DECREASED GLUCOSE Last administered on 01/23/17 03:45; Admin Dose 25 ML; Start 01/05/17 at 11:00 Dextrose (D50w Syringe) 50 ml Q15M PRN IV DECREASED GLUCOSE Last administered on 01/08/17 21:33; Admin Dose 50 ML; Start 01/05/17 at 11:00 Glucagon (Glucagen) 1 mg Q15M PRN IM DECREASED GLUCOSE Last administered on 21:08; Admin Dose 1 MG; Start 01/05/17 at 11:00 Glucose 15 gm 15 gm Q15M PRN BUCCAL DECREASED GLUCOSE Last administered on 01/23 21:36; Admin Dose 15 GM; Start 01/05/17 at 11:00 Fentanyl 100 ml @ 2.5 mls/hr TITRATE IV Last administered on 01/07/17 02:25; Admin Dose 7.5 MLS/HR; Start 01/06/17 at 09:30 Norepinephrine/ Dextrose (Levophed/D5W) 500 ml @ 0 mls/hr TITRATE IV ; Start 04/12 at 13:30 Bumetanide 1 mg 1 mg BID IV Last administered on 01/13/17 21:06; Admin Dose 1 MG; Start 01/08/17 at 09:00; Status Future Hold Propofol (Diprivan) 100 ml @ 2.19 mls/hr Q12H IV Last administered on 07:04; Admin Dose 15.28 MLS/HR; Start 01/08/17 at 16:00 Acetaminophen (Tylenol Tab) 650 mg Q6H PRN NGT PAIN AND OR ELEVATED TEMP; Start 01/17/17 at 22:30 Apixaban (Eliquis) 2.5 mg BID NGT Last administered on 01/18/17 08:20; Admin Dose 2.5 MG; Start 01/17/17 at 21:00; Status Future hold Ascorbic Acid (Vitamin C) 500 mg BID NGT Last administered on 01/28/17 08:02; Admin Dose 500 MG; Start 01/17/17 at 21:00 Levothyroxine Sodium (Synthroid) 75 mcg DAILY@06 NGT Last administered on 05:06; Admin Dose 75 MCG; Start 01/18/17 at 06:00 Loratadine (Claritin) 10 mg DAILY NGT Last administered on 01/28/17 08:02; Admin Dose 10 MG; Start 01/18/17 at 09:00 Metoprolol Tartrate (Lopressor) 25 mg BID NGT Last administered on 01/28/17 08 :01; Admin Dose 25 MG; Start 01/17/17 at 21:00 Mirtazapine (Remeron) 15 mg HS NGT Last administered on 01/27/17 20:57; Admin Dose 15 MG; Start 01/17/17 at 21:00 Oxcarbazepine (Trileptal) 600 mg BID NGT Last administered on 01/28/17 08:02; Admin Dose 600 MG; Start 01/17/17 at 21:00 Senna (Senokot) 1 tab HS NGT Last administered on 01/25/17 20:06; Admin Dose 1 TAB; Start 01/17/17 at 21:00; Status Future Hold Sertraline HCl (Zoloft) 75 mg DAILY NGT Last administered on 01/28/17 08:03; Admin Dose 75 MG; Start 01/18/17 at 09:00 Sildenafil Citrate (Revatio) 20 mg TID NGT Last administered on 01/28/17 11:42 ; Admin Dose 20 MG; Start 01/17/17 at 21:00 Docusate Sodium (Colace Liquid Cup) 100 mg BID NGT Last administered on 09:55; Admin Dose 100 MG; Start 01/17/17 at 21:00; Status Future Hold Famotidine (Pepcid) 20 mg DAILY NGT Last administered on 01/28/17 08:02; Admin Dose 20 MG; Start 01/20/17 at 09:00 Lorazepam (Ativan) 1 mg Q6H PRN IV anxiety Last administered on 01/26/17 16:24 ; Admin Dose 1 MG; Start 01/22/17 at 09:00 Tacrolimus (Prograf) 2 mg QPM NGT Last administered on 01/27/17 20:57; Admin Dose 2 MG; Start 01/24/17 at 21:00 Diagnostic Test (Pha) (Accu-Chek) 1 ea 02 XX Last administered on 01/26/17 02: 09; Admin Dose 1 EA; Start 01/26/17 at 02:00 Diagnostic Test (Pha) (Accu-Chek) 1 ea 02 XX ; Start 01/27/17 at 02:00 Insulin Aspart (Novolog Insulin Pen) NOVOLOG *MODERATE* ALGORI... Q4 SC Last administered on 01/28/17 11:45; Admin Dose 5 UNIT; Start 01/26/17 at 17:00 Metoclopramide HCl (Reglan) 5 mg Q8H PRN IV VOMITTING; Start 01/26/17 at 15:30 Hydralazine HCl (Apresoline) 25 mg TID PRN GTB ELEVATED SYSTOLIC BP Last administered on 01/28/17 08:05; Admin Dose 25 MG; Start 01/27/17 at 07:00 Insulin Glargine (Lantus) 7 unit BID@08,20 SC Last administered on 01/28/17 07 :57; Admin Dose 7 UNIT; Start 01/28/17 at 08:00 MEMO WILHELM MD Jan 28, 2017 11:56
--- NOTE | 2017-01-28 12:44 | CONS ---
Date/Time of Note Date/Time of Note DATE: 01/28/17 TIME: 12:42 Assessment/Plan Assessment/Plan Chief Complaint/Hosp Course SUBJECTIVE DATA:No acute changes overnight. Patient is lying comfortably in bed. Temperature temperature 98 pulse 100 respirations 20 blood pressure 104/82 saturation 99 on 30 FiO2 WBC 19.4 H&H 10.4 and 32.8 platelets 353 neutrophils 92.7 INDWELLINGS: Trach, PEG, right IJ Bandar and PICC line ANTIMICROBIALS: none PHYSICAL EXAMINATION: GENERAL: This is a chronically ill-appearing, elderly woman, who is in no distress. HEENT: Head atraumatic, normocephalic. Sclerae anicteric. Buccal mucosa dry. NECK: Supple. CHEST: Rise symmetrical. Breath sounds diminished at the bases. HEART: S1, S2. ABDOMEN: Soft, bowel sounds present. EXTREMITIES: Without cyanosis. ASSESSMENT: 1. Status post septic shock, urinary tract infection and pneumonia. 2. Respiratory failure, failed multiple weaning trials. 3. Acute on chronic kidney disease, hemodialysis dependent. 4. History of kidney transplant, on immunosuppressive therapy. 5. Anemia. 6. Leukocytosis, likely reactive. PLAN: The patient remains stable. Status post tracheostomy yesterday, she is off antibiotics, we will follow labs in a.m. Problems: Consultation Date/Type/Reason Admit Date/Time Jan 05, 2017 at 00:15 Initial Consult Date 01/05/17 Type of Consultation: ID Referring Provider: SUSAN SIMENTAL DO Exam/Review of Systems Vital Signs Vitals Vital Signs Date Time Temp Pulse Resp B/P Pulse Ox O2 Delivery O2 Flow Rate FiO2 01/28/17 09:21 90 18 98 30 01/28/17 05:30 104/82 Mechanical Ventilator 01/28/17 04:00 98.0 Intake and Output 01/27/17 01/27/17 01/28/17 15:00 23:00 07:00 Intake Total 250 ml 370 ml 170 ml Output Total 0 ml 0 ml 0 ml Balance 250 ml 370 ml 170 ml Results Result Diagram: 01/28/17 0535 01/28/17 0535 Results 24 hrs Laboratory Tests Test 01/27/17 17:30 01/27/17 20:55 01/28/17 01:06 01/28/17 05:04 Bedside Glucose 134 126 120 170 Test 01/28/17 05:35 01/28/17 07:36 01/28/17 11:14 White Blood Count 19.4 #H Red Blood Count 3.52 L Hemoglobin 10.4 L Hematocrit 32.8 L Mean Corpuscular Volume 93.2 Mean Corpuscular Hemoglobin 29.5 Mean Corpuscular Hemoglobin Concent 31.7 L Red Cell Distribution Width 14.7 H Platelet Count 353 Mean Platelet Volume 9.6 Neutrophils % 92.7 H Lymphocytes % 2.5 L Monocytes % 2.9 Eosinophils % 0.9 Basophils % 0.1 Nucleated Red Blood Cells % 0.0 Neutrophils # 17.9 H Lymphocytes # 0.5 L Monocytes # 0.6 Eosinophils # 0.2 Basophils # 0.0 Nucleated Red Blood Cells # 0.0 Sodium Level 130 L Potassium Level 3.9 Chloride Level 97 Carbon Dioxide Level 23 Anion Gap 14 Blood Urea Nitrogen 53 H Creatinine 3.31 H Glucose Level 167 Calcium Level 9.6 Phosphorus Level 4.9 Magnesium Level 2.4 Bedside Glucose 177 173 Medications Medications Current Medications Naloxone HCl (Narcan) 0.4 mg Q4 PRN IV SEDATION; Start 01/05/17 at 01:30 Bisacodyl (Dulcolax Supp) 10 mg DAILY ME Last administered on 01/26/17 09:57; Admin Dose 10 MG; Start 01/06/17 at 09:00; Status Future Hold Budesonide (Pulmicort (Neb)) 0.25 mg BID NEB Last administered on 01/28/17 08: 07; Admin Dose 0.25 MG; Start 01/05/17 at 10:30 Fluticasone Propionate (Flonase 0.05% Nasal) 1 spray DAILY NASAL Last administered on 01/27/17 08:42; Admin Dose 1 SPRAY; Start 01/05/17 at 11:00 Fulvestrant (Faslodex) 500 mg Q28D IM ; Start 01/29/17 at 09:00 Magnesium Hydroxide (Milk Of Mag) 30 ml BID PRN PO CONSTIPATION Last administered on 01/16/17 09:09; Admin Dose 30 ML; Start 01/05/17 at 10:30 Nitroglycerin (Nitroglycerin 2% Oint) 0.5 inch Q6 PRN TD CHEST PAIN; Start 03/13 at 10:30 Ondansetron HCl (Zofran Inj) 4 mg Q6H PRN IV NAUSEA Last administered on 14:23; Admin Dose 4 MG; Start 01/05/17 at 10:30 Prednisone (Prednisone) 5 mg DAILY PO Last administered on 01/28/17 08:02; Admin Dose 5 MG; Start 01/05/17 at 12:00 Prednisone (Prednisone) 3 mg DAILY PO Last administered on 01/28/17 08:03; Admin Dose 3 MG; Start 01/05/17 at 12:00 Miscellaneous Information 1 ea NOTE XX ; Start 01/05/17 at 11:00 Glucose (Glutose) 15 gm Q15M PRN PO DECREASED GLUCOSE; Start 01/05/17 at 11:00 Glucose (Glutose) 22.5 gm Q15M PRN PO DECREASED GLUCOSE; Start 01/05/17 at 11: 00 Dextrose (D50w Syringe) 25 ml Q15M PRN IV DECREASED GLUCOSE Last administered on 01/23/17 03:45; Admin Dose 25 ML; Start 01/05/17 at 11:00 Dextrose (D50w Syringe) 50 ml Q15M PRN IV DECREASED GLUCOSE Last administered on 01/08/17 21:33; Admin Dose 50 ML; Start 01/05/17 at 11:00 Glucagon (Glucagen) 1 mg Q15M PRN IM DECREASED GLUCOSE Last administered on 21:08; Admin Dose 1 MG; Start 01/05/17 at 11:00 Glucose 15 gm 15 gm Q15M PRN BUCCAL DECREASED GLUCOSE Last administered on 01/23 21:36; Admin Dose 15 GM; Start 01/05/17 at 11:00 Fentanyl 100 ml @ 2.5 mls/hr TITRATE IV Last administered on 01/07/17 02:25; Admin Dose 7.5 MLS/HR; Start 01/06/17 at 09:30 Norepinephrine/ Dextrose (Levophed/D5W) 500 ml @ 0 mls/hr TITRATE IV ; Start 04/12 at 13:30 Bumetanide 1 mg 1 mg BID IV Last administered on 01/13/17 21:06; Admin Dose 1 MG; Start 01/08/17 at 09:00; Status Future Hold Propofol (Diprivan) 100 ml @ 2.19 mls/hr Q12H IV Last administered on 07:04; Admin Dose 15.28 MLS/HR; Start 01/08/17 at 16:00 Acetaminophen (Tylenol Tab) 650 mg Q6H PRN NGT PAIN AND OR ELEVATED TEMP; Start 01/17/17 at 22:30 Apixaban (Eliquis) 2.5 mg BID NGT Last administered on 01/18/17 08:20; Admin Dose 2.5 MG; Start 01/17/17 at 21:00; Status Future hold Ascorbic Acid (Vitamin C) 500 mg BID NGT Last administered on 01/28/17 08:02; Admin Dose 500 MG; Start 01/17/17 at 21:00 Levothyroxine Sodium (Synthroid) 75 mcg DAILY@06 NGT Last administered on 05:06; Admin Dose 75 MCG; Start 01/18/17 at 06:00 Loratadine (Claritin) 10 mg DAILY NGT Last administered on 01/28/17 08:02; Admin Dose 10 MG; Start 01/18/17 at 09:00 Metoprolol Tartrate (Lopressor) 25 mg BID NGT Last administered on 01/28/17 08 :01; Admin Dose 25 MG; Start 01/17/17 at 21:00 Mirtazapine (Remeron) 15 mg HS NGT Last administered on 01/27/17 20:57; Admin Dose 15 MG; Start 01/17/17 at 21:00 Oxcarbazepine (Trileptal) 600 mg BID NGT Last administered on 01/28/17 08:02; Admin Dose 600 MG; Start 01/17/17 at 21:00 Senna (Senokot) 1 tab HS NGT Last administered on 01/25/17 20:06; Admin Dose 1 TAB; Start 01/17/17 at 21:00; Status Future Hold Sertraline HCl (Zoloft) 75 mg DAILY NGT Last administered on 01/28/17 08:03; Admin Dose 75 MG; Start 01/18/17 at 09:00 Sildenafil Citrate (Revatio) 20 mg TID NGT Last administered on 01/28/17 11:42 ; Admin Dose 20 MG; Start 01/17/17 at 21:00 Docusate Sodium (Colace Liquid Cup) 100 mg BID NGT Last administered on 09:55; Admin Dose 100 MG; Start 01/17/17 at 21:00; Status Future Hold Famotidine (Pepcid) 20 mg DAILY NGT Last administered on 01/28/17 08:02; Admin Dose 20 MG; Start 01/20/17 at 09:00 Lorazepam (Ativan) 1 mg Q6H PRN IV anxiety Last administered on 01/26/17 16:24 ; Admin Dose 1 MG; Start 01/22/17 at 09:00 Tacrolimus (Prograf) 2 mg QPM NGT Last administered on 01/27/17 20:57; Admin Dose 2 MG; Start 01/24/17 at 21:00 Diagnostic Test (Pha) (Accu-Chek) 1 ea 02 XX Last administered on 01/26/17 02: 09; Admin Dose 1 EA; Start 01/26/17 at 02:00 Diagnostic Test (Pha) (Accu-Chek) 1 ea 02 XX ; Start 01/27/17 at 02:00 Insulin Aspart (Novolog Insulin Pen) NOVOLOG *MODERATE* ALGORI... Q4 SC Last administered on 01/28/17 11:45; Admin Dose 5 UNIT; Start 01/26/17 at 17:00 Metoclopramide HCl (Reglan) 5 mg Q8H PRN IV VOMITTING; Start 01/26/17 at 15:30 Hydralazine HCl (Apresoline) 25 mg TID PRN GTB ELEVATED SYSTOLIC BP Last administered on 01/28/17 08:05; Admin Dose 25 MG; Start 01/27/17 at 07:00 Insulin Glargine (Lantus) 7 unit BID@08,20 SC Last administered on 01/28/17 07 :57; Admin Dose 7 UNIT; Start 01/28/17 at 08:00 MAXIMUS ETIENNE NP Jan 28, 2017 12:44
[2017-01-28] MEDS: LORAZEPAM 2 MG INJ IV PRN (16:16)
--- NOTE | 2017-01-28 18:09 | PN ---
Date/Time of Note Date/Time of Note DATE: 01/28/17 TIME: 18:08 Assessment/Plan Lines/Catheters IV Catheter Type (from Nrsg): Mid Line [place] in Place (from Nrsg): Yes Assessment/Plan Chief Complaint/Hosp Course SP Tracheostomy Site clean will continue vent support Trach care Problems: Subjective 24 Hr Interval Summary Constitutional: improved Pain Control: mild Exam/Review of Systems Vital Signs Vitals Vital Signs Date Time Temp Pulse Resp B/P Pulse Ox O2 Delivery O2 Flow Rate FiO2 01/28/17 16:00 107 01/28/17 15:13 17 99 30 01/28/17 15:00 99.9 01/28/17 14:30 139/89 01/28/17 05:30 Mechanical Ventilator Intake and Output 01/27/17 01/27/17 01/28/17 15:00 23:00 07:00 Intake Total 250 ml 370 ml 170 ml Output Total 0 ml 0 ml 0 ml Balance 250 ml 370 ml 170 ml Exam ENMT: mucosa pink and moist, nl external ears & nose, nl lips & teeth, nl nasal mucosa & septum Neck: non-tender, supple Respiratory: clear to auscultation, normal air movement Cardiovascular: nl pulses, regular rate and rhythm Results Result Diagram: 01/28/17 0535 01/28/17 0535 KELSY MOORE MD Jan 28, 2017 18:09
[2017-01-28] MEDS: MIRTAZAPINE 15 MG TAB NGT SCH (20:47)
[2017-01-28] MEDS: ACETAMINOPHEN 325 MG TAB NGT PRN (20:48)
[2017-01-29] VITALS (55 sets, daily range): BP systolic 73–171; BP diastolic 23–82; PULSE 66–114; RESP 12–28
[2017-01-29] MEDS: IPRATROPIUM (HFA) 12.9 GM INHALER INH SCH ×4 (01:16→20:01)
[2017-01-29] MEDS: ALBUTEROL 18 GM INHALER INH SCH ×4 (01:16→20:01)
[2017-01-29] MEDS: ACCU-CHEK XX SCH ×2 (02:00→02:16)
[2017-01-29] MEDS: INSULIN ASPART [NOVOLOG] 3 ML PEN SC SCH ×6 (02:25→20:54)
[2017-01-29] MEDS: PROPOFOL 100 ML IV SCH ×2 (04:00→16:00)
[2017-01-29] MEDS: LEVOTHYROXINE 75 MCG TAB NGT SCH (05:04)
[2017-01-29 05:17] LABS: ABNORMAL IP MESSAGE 1; BASOPHILS % 0.2 % (0.0-2.0); EOSINOPHILS # 0.2 10^3/ul (0.0-0.5); EOSINOPHILS % 2.1 % (0.0-7.0); HEMATOCRIT 26.3 % (37.0-47.0); HEMOGLOBIN 8.1 g/dl (12.0-16.0); LYMPHOCYTES # 0.6 10^3/ul (0.8-2.9); LYMPHOCYTES % 5.6 % (15.0-51.0); MEAN CORPUSCULAR HEMOGLOBIN 28.9 pg (29.0-33.0); MEAN CORPUSCULAR HGB CONC 30.8 g/dl (32.0-37.0); MEAN CORPUSCULAR VOLUME 93.9 fl (82.0-101.0); MEAN PLATELET VOLUME 9.9 fl (7.4-10.4); MONOCYTE # 0.8 10^3/ul (0.3-0.9); MONOCYTES % 7.3 % (0.0-11.0); NEUTROPHIL # 8.8 10^3/ul (1.6-7.5); NEUTROPHILS % 83.9 % (39.0-77.0); PLATELET COUNT 228 10^3/UL (140-415); RED CELL DISTRIBUTION WIDTH 15.2 % (11.5-14.5); WHITE BLOOD COUNT 10.5 10^3/ul (4.8-10.8)
[2017-01-29 05:27] LABS: POSITIVE DIFF @See below
[2017-01-29 05:45] LABS: CALCIUM 9.1 mg/dl (8.4-10.2); CREATININE 2.79 mg/dl (0.44-1.00); MAGNESIUM 2.3 mg/dl (1.7-2.5); PHOSPHORUS 3.8 mg/dl (2.5-4.9); POTASSIUM 3.2 mmol/L (3.5-5.1)
[2017-01-29] MEDS ORDERED: POTASSIUM CHLORIDE 20 MEQ POWDER FOR ORAL SOLN GTB ONE (08:30)
[2017-01-29] MEDS: METOPROLOL 25 MG TAB NGT SCH ×2 (08:32→20:45)
[2017-01-29] MEDS: OXCARBAZEPINE 300 MG TAB NGT SCH ×2 (08:42→20:44)
[2017-01-29] MEDS: BALSAM PERU/CASTOR OIL 60 GM TUBE TOP SCH (08:42)
[2017-01-29] MEDS: LORATADINE 10 MG TAB NGT SCH (08:42)
[2017-01-29] MEDS: FLUTICASONE 0.05% 16 GM NAS SPRAY NASAL SCH (08:42)
[2017-01-29] MEDS: ASCORBIC ACID 500 MG TAB NGT SCH ×2 (08:43→20:44)
[2017-01-29] MEDS: predniSONE 1 MG TAB PO SCH (08:43)
[2017-01-29] MEDS: TACROLIMUS 1 MG CAP NGT SCH ×2 (08:43→20:43)
[2017-01-29] MEDS: predniSONE 5 MG TAB PO SCH (08:43)
[2017-01-29] MEDS: SERTRALINE 50 MG TAB NGT SCH (08:43)
[2017-01-29] MEDS: FAMOTIDINE 20 MG TAB NGT SCH (08:44)
[2017-01-29] MEDS: APIXABAN 5 MG TABLET NGT SCH ×2 (08:46→20:43)
[2017-01-29] MEDS: INSULIN GLARGINE [LANtus] 3 ML PEN SC SCH ×2 (08:46→20:16)
[2017-01-29] MEDS: SILDENAFIL 20 MG TAB NGT SCH ×3 (08:47→20:44)
--- NOTE | 2017-01-29 08:51 | CONS ---
Date/Time of Note Date/Time of Note DATE: 01/29/17 TIME: 08:50 Consult Date/Type/Reason Admit Date/Time Jan 05, 2017 at 00:15 Initial Consult Date 01/05/17 Type of Consultation: CARDIOLOGY Ordering Provider: SUSAN SIMENTAL DO Subjective CARDIOLOGY FOLLOW UP NOTE: D/W Staff and rhythm was reviewed. pt has remained in Afib. HR has been stable overall. pt still remains on vent. S/P trach. NO reports of any chest pain or pressure S/P PEG 01/19/17 S/P Trach 01/27/17 pt is nonverbal on vent. OBJECTIVE: General: s/p trach on vent. HEENT: NC/AT. pupils are equal. round. NECK: s/p trach. no stridor. CV:irregularly irregular. systolic murmur; no gallop or rubs. PULM: no wheezing, + mild rhonchi. GI: SOFT, NT, ND, no rebound or guarding S/P PEG Extremity: trace B/L LE edema. no clubbing. neuro: awake. . Psych: unable to assess rectal: deferred : normal ECHO 12/16/16: Personally reviewed 1. Normal left ventricular systolic function. Normal left ventricular cavity size. Moderate concentric left ventricular hypertrophy. Ejection fraction is visually estimated at 65 %. Abnormal Diastolic Function. 2. There is moderate enlargement of left atrium. 3. Mild mitral leaflet calcification. Mild mitral annular calcification. Trace mitral regurgitation. 4. Aortic sclerosis without stenosis. Trace aortic valve regurgitation. 5. Normal appearance of the tricuspid valve. Estimated peak PA systolic pressure 38 mmHg. There is mild tricuspid regurgitation. Objective Vital Signs Date Time Temp Pulse Resp B/P Pulse Ox O2 Delivery O2 Flow Rate FiO2 01/29/17 08:00 30 01/29/17 06:00 87 19 171/82 100 01/29/17 04:00 98.6 01/28/17 05:30 Mechanical Ventilator Intake and Output 01/28/17 01/28/17 01/29/17 15:00 23:00 07:00 Intake Total 530 ml 600 ml Output Total 3300 ml 0 ml Balance -2770 ml 600 ml Results/Medications Result Diagram: 01/29/17 0444 01/29/17 0444 Results 24 hrs Laboratory Tests Test 01/28/17 11:14 01/28/17 16:22 01/28/17 21:26 01/29/17 01:55 Bedside Glucose 173 200 124 158 Test 01/29/17 04:44 01/29/17 04:56 01/29/17 07:24 White Blood Count 10.5 # Red Blood Count 2.80 #L Hemoglobin 8.1 #L Hematocrit 26.3 L Mean Corpuscular Volume 93.9 Mean Corpuscular Hemoglobin 28.9 L Mean Corpuscular Hemoglobin Concent 30.8 L Red Cell Distribution Width 15.2 H Platelet Count 228 # Mean Platelet Volume 9.9 Neutrophils % 83.9 H Lymphocytes % 5.6 L Monocytes % 7.3 Eosinophils % 2.1 Basophils % 0.2 Nucleated Red Blood Cells % 0.0 Neutrophils # 8.8 H Lymphocytes # 0.6 L Monocytes # 0.8 Eosinophils # 0.2 Basophils # 0.0 Nucleated Red Blood Cells # 0.0 Sodium Level 134 L Potassium Level 3.2 L Chloride Level 99 Carbon Dioxide Level 29 Anion Gap 9 # Blood Urea Nitrogen 37 #H Creatinine 2.79 H Glucose Level 150 Calcium Level 9.1 Phosphorus Level 3.8 Magnesium Level 2.3 Bedside Glucose 165 161 Medications Current Medications Naloxone HCl (Narcan) 0.4 mg Q4 PRN IV SEDATION; Start 01/05/17 at 01:30 Bisacodyl (Dulcolax Supp) 10 mg DAILY AL Last administered on 01/26/17 09:57; Admin Dose 10 MG; Start 01/06/17 at 09:00; Status Future Hold Budesonide (Pulmicort (Neb)) 0.25 mg BID NEB Last administered on 01/28/17 20: 00; Admin Dose 0.25 MG; Start 01/05/17 at 10:30 Fluticasone Propionate (Flonase 0.05% Nasal) 1 spray DAILY NASAL Last administered on 01/29/17 08:42; Admin Dose 1 SPRAY; Start 01/05/17 at 11:00 Fulvestrant (Faslodex) 500 mg Q28D IM ; Start 01/29/17 at 09:00 Magnesium Hydroxide (Milk Of Mag) 30 ml BID PRN PO CONSTIPATION Last administered on 01/16/17 09:09; Admin Dose 30 ML; Start 01/05/17 at 10:30 Nitroglycerin (Nitroglycerin 2% Oint) 0.5 inch Q6 PRN TD CHEST PAIN; Start 03/13 at 10:30 Ondansetron HCl (Zofran Inj) 4 mg Q6H PRN IV NAUSEA Last administered on 14:23; Admin Dose 4 MG; Start 01/05/17 at 10:30 Prednisone (Prednisone) 5 mg DAILY PO Last administered on 01/29/17 08:43; Admin Dose 5 MG; Start 01/05/17 at 12:00 Prednisone (Prednisone) 3 mg DAILY PO Last administered on 01/29/17 08:43; Admin Dose 3 MG; Start 01/05/17 at 12:00 Miscellaneous Information 1 ea NOTE XX ; Start 01/05/17 at 11:00 Glucose (Glutose) 15 gm Q15M PRN PO DECREASED GLUCOSE; Start 01/05/17 at 11:00 Glucose (Glutose) 22.5 gm Q15M PRN PO DECREASED GLUCOSE; Start 01/05/17 at 11: 00 Dextrose (D50w Syringe) 25 ml Q15M PRN IV DECREASED GLUCOSE Last administered on 01/23/17 03:45; Admin Dose 25 ML; Start 01/05/17 at 11:00 Dextrose (D50w Syringe) 50 ml Q15M PRN IV DECREASED GLUCOSE Last administered on 01/08/17 21:33; Admin Dose 50 ML; Start 01/05/17 at 11:00 Glucagon (Glucagen) 1 mg Q15M PRN IM DECREASED GLUCOSE Last administered on 21:08; Admin Dose 1 MG; Start 01/05/17 at 11:00 Glucose 15 gm 15 gm Q15M PRN BUCCAL DECREASED GLUCOSE Last administered on 01/23 21:36; Admin Dose 15 GM; Start 01/05/17 at 11:00 Fentanyl 100 ml @ 2.5 mls/hr TITRATE IV Last administered on 01/07/17 02:25; Admin Dose 7.5 MLS/HR; Start 01/06/17 at 09:30 Norepinephrine/ Dextrose (Levophed/D5W) 500 ml @ 0 mls/hr TITRATE IV ; Start 04/12 at 13:30 Bumetanide 1 mg 1 mg BID IV Last administered on 01/13/17 21:06; Admin Dose 1 MG; Start 01/08/17 at 09:00; Status Future Hold Propofol (Diprivan) 100 ml @ 2.19 mls/hr Q12H IV Last administered on 07:04; Admin Dose 15.28 MLS/HR; Start 01/08/17 at 16:00 Acetaminophen (Tylenol Tab) 650 mg Q6H PRN NGT PAIN AND OR ELEVATED TEMP Last administered on 01/28/17 20:48; Admin Dose 650 MG; Start 01/17/17 at 22:30 Apixaban (Eliquis) 2.5 mg BID NGT Last administered on 01/29/17 08:46; Admin Dose 2.5 MG; Start 01/17/17 at 21:00; Status Future hold Ascorbic Acid (Vitamin C) 500 mg BID NGT Last administered on 01/29/17 08:43; Admin Dose 500 MG; Start 01/17/17 at 21:00 Levothyroxine Sodium (Synthroid) 75 mcg DAILY@06 NGT Last administered on 05:04; Admin Dose 75 MCG; Start 01/18/17 at 06:00 Loratadine (Claritin) 10 mg DAILY NGT Last administered on 01/29/17 08:42; Admin Dose 10 MG; Start 01/18/17 at 09:00 Metoprolol Tartrate (Lopressor) 25 mg BID NGT Last administered on 01/28/17 20 :47; Admin Dose 25 MG; Start 01/17/17 at 21:00 Mirtazapine (Remeron) 15 mg HS NGT Last administered on 01/28/17 20:47; Admin Dose 15 MG; Start 01/17/17 at 21:00 Oxcarbazepine (Trileptal) 600 mg BID NGT Last administered on 01/29/17 08:42; Admin Dose 600 MG; Start 01/17/17 at 21:00 Senna (Senokot) 1 tab HS NGT Last administered on 01/25/17 20:06; Admin Dose 1 TAB; Start 01/17/17 at 21:00; Status Future Hold Sertraline HCl (Zoloft) 75 mg DAILY NGT Last administered on 01/29/17 08:43; Admin Dose 75 MG; Start 01/18/17 at 09:00 Sildenafil Citrate (Revatio) 20 mg TID NGT Last administered on 01/29/17 08:47 ; Admin Dose 20 MG; Start 01/17/17 at 21:00 Docusate Sodium (Colace Liquid Cup) 100 mg BID NGT Last administered on 09:55; Admin Dose 100 MG; Start 01/17/17 at 21:00; Status Future Hold Famotidine (Pepcid) 20 mg DAILY NGT Last administered on 01/29/17 08:44; Admin Dose 20 MG; Start 01/20/17 at 09:00 Lorazepam (Ativan) 1 mg Q6H PRN IV anxiety Last administered on 01/28/17 16:16 ; Admin Dose 1 MG; Start 01/22/17 at 09:00 Tacrolimus (Prograf) 2 mg QPM NGT Last administered on 01/28/17 20:48; Admin Dose 2 MG; Start 01/24/17 at 21:00 Diagnostic Test (Pha) (Accu-Chek) 1 ea 02 XX Last administered on 01/29/17 02: 16; Admin Dose 1 EA; Start 01/26/17 at 02:00 Diagnostic Test (Pha) (Accu-Chek) 1 ea 02 XX ; Start 01/27/17 at 02:00 Insulin Aspart (Novolog Insulin Pen) NOVOLOG *MODERATE* ALGORI... Q4 SC Last administered on 01/29/17 08:46; Admin Dose 4 UNIT; Start 01/26/17 at 17:00 Metoclopramide HCl (Reglan) 5 mg Q8H PRN IV VOMITTING; Start 01/26/17 at 15:30 Hydralazine HCl (Apresoline) 25 mg TID PRN GTB ELEVATED SYSTOLIC BP Last administered on 01/28/17 08:05; Admin Dose 25 MG; Start 01/27/17 at 07:00 Insulin Glargine (Lantus) 7 unit BID@08,20 SC Last administered on 01/29/17 08 :46; Admin Dose 7 UNIT; Start 01/28/17 at 08:00 Assessment/Plan Chief Complaint/Hosp Course Assessment: 1. s/p cardiopulmonary arrest: Most likely due to pulmonary arrest 2. P afib: now remains in persistent Afib. 3. History of renal failure status post renal transplant: now with KATI on CKD: currently requiring HD. 4. Acute on chronic hypoxemic hypercapnic respiratory failure status post reintubation: currently on the vent: AWAITING TRACH. 5. Shock: resolved now. 6. ANEMIA 7. breast cancer 8. history of HTN: 9. anxiety 10. DM 11. Hypothyroidism: on synthroid. 12. pleural effusion : s/p thoracentesis 13. Dysphagia: s/p PEG Recommendations: vent support for now anti- rejection medications to be adjusted as per renal team. HD as per renal. cont DM control thyroid supplement betablocker as tolerated. correct lytes prn with HD. cont tele monitoring transfusion prn CONT eliquis as long as no active bleeding . Thank you for this referral I will continue to follow along with you. AUGUSTINA MALDONADO MD [facility] Problems: AUGUSTINA MALDONADO MD Jan 29, 2017 08:51
[2017-01-29] MEDS ORDERED: FULVESTRANT 250 MG/5 ML IM SCH ×2 (09:00→21:00)
[2017-01-29] MEDS: BUDESONIDE (NEB) 0.25 MG/2 ML AMP NEB SCH ×2 (09:48→20:02)
--- NOTE | 2017-01-29 09:48 | CONS ---
Date/Time of Note Date/Time of Note DATE: 01/29/17 TIME: 09:45 Consult Date/Type/Reason Admit Date/Time Jan 05, 2017 at 00:15 Initial Consult Date 01/05/17 Type of Consultation: Pulmonary Ordering Provider: SUSAN SIMENTAL DO Subjective Patient remains stable following tracheostomy. No vasopressor support. Tube feeding as stated. Objective Vital Signs Date Time Temp Pulse Resp B/P Pulse Ox O2 Delivery O2 Flow Rate FiO2 01/29/17 08:00 99.1 91 19 102/71 100 Mechanical Ventilator 01/29/17 08:00 30 Intake and Output 01/28/17 01/28/17 01/29/17 15:00 23:00 07:00 Intake Total 530 ml 600 ml Output Total 3300 ml 0 ml Balance -2770 ml 600 ml Exam PHYSICAL EXAMINATION GENERAL: Elderly lady on mechanical ventilation appears comfortable at rest VITAL SIGNS: see below. HEENT: Pupils equal, round, and reactive to light. Tracheostomy site clean and intact. CARDIAC: S1, S2, 1/6 systolic ejection murmur CHEST: Diminished air entry bilaterally. ABDOMEN: Mildly distended. Bowel sounds present no guarding or rebound EXTREMITIES: No cyanosis, clubbing edema +1 NEUROLOGIC: Generalized weakness Results/Medications Result Diagram: 01/29/17 0444 01/29/17 0444 Results 24 hrs Laboratory Tests Test 01/28/17 11:14 01/28/17 16:22 01/28/17 21:26 01/29/17 01:55 Bedside Glucose 173 200 124 158 Test 01/29/17 04:44 01/29/17 04:56 01/29/17 07:24 01/29/17 08:40 White Blood Count 10.5 # Red Blood Count 2.80 #L Hemoglobin 8.1 #L Hematocrit 26.3 L Mean Corpuscular Volume 93.9 Mean Corpuscular Hemoglobin 28.9 L Mean Corpuscular Hemoglobin Concent 30.8 L Red Cell Distribution Width 15.2 H Platelet Count 228 # Mean Platelet Volume 9.9 Neutrophils % 83.9 H Lymphocytes % 5.6 L Monocytes % 7.3 Eosinophils % 2.1 Basophils % 0.2 Nucleated Red Blood Cells % 0.0 Neutrophils # 8.8 H Lymphocytes # 0.6 L Monocytes # 0.8 Eosinophils # 0.2 Basophils # 0.0 Nucleated Red Blood Cells # 0.0 Sodium Level 134 L Potassium Level 3.2 L Chloride Level 99 Carbon Dioxide Level 29 Anion Gap 9 # Blood Urea Nitrogen 37 #H Creatinine 2.79 H Glucose Level 150 Calcium Level 9.1 Phosphorus Level 3.8 Magnesium Level 2.3 Bedside Glucose 165 161 182 Medications Current Medications Naloxone HCl (Narcan) 0.4 mg Q4 PRN IV SEDATION; Start 01/05/17 at 01:30 Bisacodyl (Dulcolax Supp) 10 mg DAILY [place] Last administered on 01/26/17 09:57; Admin Dose 10 MG; Start 01/06/17 at 09:00; Status Future Hold Budesonide (Pulmicort (Neb)) 0.25 mg BID NEB Last administered on 01/28/17 20: 00; Admin Dose 0.25 MG; Start 01/05/17 at 10:30 Fluticasone Propionate (Flonase 0.05% Nasal) 1 spray DAILY NASAL Last administered on 01/29/17 08:42; Admin Dose 1 SPRAY; Start 01/05/17 at 11:00 Fulvestrant (Faslodex) 500 mg Q28D IM ; Start 01/29/17 at 09:00 Magnesium Hydroxide (Milk Of Mag) 30 ml BID PRN PO CONSTIPATION Last administered on 01/16/17 09:09; Admin Dose 30 ML; Start 01/05/17 at 10:30 Nitroglycerin (Nitroglycerin 2% Oint) 0.5 inch Q6 PRN TD CHEST PAIN; Start 03/13 at 10:30 Ondansetron HCl (Zofran Inj) 4 mg Q6H PRN IV NAUSEA Last administered on 14:23; Admin Dose 4 MG; Start 01/05/17 at 10:30 Prednisone (Prednisone) 5 mg DAILY PO Last administered on 01/29/17 08:43; Admin Dose 5 MG; Start 01/05/17 at 12:00 Prednisone (Prednisone) 3 mg DAILY PO Last administered on 01/29/17 08:43; Admin Dose 3 MG; Start 01/05/17 at 12:00 Miscellaneous Information 1 ea NOTE XX ; Start 01/05/17 at 11:00 Glucose (Glutose) 15 gm Q15M PRN PO DECREASED GLUCOSE; Start 01/05/17 at 11:00 Glucose (Glutose) 22.5 gm Q15M PRN PO DECREASED GLUCOSE; Start 01/05/17 at 11: 00 Dextrose (D50w Syringe) 25 ml Q15M PRN IV DECREASED GLUCOSE Last administered on 01/23/17 03:45; Admin Dose 25 ML; Start 01/05/17 at 11:00 Dextrose (D50w Syringe) 50 ml Q15M PRN IV DECREASED GLUCOSE Last administered on 01/08/17 21:33; Admin Dose 50 ML; Start 01/05/17 at 11:00 Glucagon (Glucagen) 1 mg Q15M PRN IM DECREASED GLUCOSE Last administered on 21:08; Admin Dose 1 MG; Start 01/05/17 at 11:00 Glucose 15 gm 15 gm Q15M PRN BUCCAL DECREASED GLUCOSE Last administered on 01/23 21:36; Admin Dose 15 GM; Start 01/05/17 at 11:00 Fentanyl 100 ml @ 2.5 mls/hr TITRATE IV Last administered on 01/07/17 02:25; Admin Dose 7.5 MLS/HR; Start 01/06/17 at 09:30 Norepinephrine/ Dextrose (Levophed/D5W) 500 ml @ 0 mls/hr TITRATE IV ; Start 04/12 at 13:30 Bumetanide 1 mg 1 mg BID IV Last administered on 01/13/17 21:06; Admin Dose 1 MG; Start 01/08/17 at 09:00; Status Future Hold Propofol (Diprivan) 100 ml @ 2.19 mls/hr Q12H IV Last administered on 07:04; Admin Dose 15.28 MLS/HR; Start 01/08/17 at 16:00 Acetaminophen (Tylenol Tab) 650 mg Q6H PRN NGT PAIN AND OR ELEVATED TEMP Last administered on 01/28/17 20:48; Admin Dose 650 MG; Start 01/17/17 at 22:30 Apixaban (Eliquis) 2.5 mg BID NGT Last administered on 01/29/17 08:46; Admin Dose 2.5 MG; Start 01/17/17 at 21:00; Status Future hold Ascorbic Acid (Vitamin C) 500 mg BID NGT Last administered on 01/29/17 08:43; Admin Dose 500 MG; Start 01/17/17 at 21:00 Levothyroxine Sodium (Synthroid) 75 mcg DAILY@06 NGT Last administered on 05:04; Admin Dose 75 MCG; Start 01/18/17 at 06:00 Loratadine (Claritin) 10 mg DAILY NGT Last administered on 01/29/17 08:42; Admin Dose 10 MG; Start 01/18/17 at 09:00 Metoprolol Tartrate (Lopressor) 25 mg BID NGT Last administered on 01/28/17 20 :47; Admin Dose 25 MG; Start 01/17/17 at 21:00 Mirtazapine (Remeron) 15 mg HS NGT Last administered on 01/28/17 20:47; Admin Dose 15 MG; Start 01/17/17 at 21:00 Oxcarbazepine (Trileptal) 600 mg BID NGT Last administered on 01/29/17 08:42; Admin Dose 600 MG; Start 01/17/17 at 21:00 Senna (Senokot) 1 tab HS NGT Last administered on 01/25/17 20:06; Admin Dose 1 TAB; Start 01/17/17 at 21:00; Status Future Hold Sertraline HCl (Zoloft) 75 mg DAILY NGT Last administered on 01/29/17 08:43; Admin Dose 75 MG; Start 01/18/17 at 09:00 Sildenafil Citrate (Revatio) 20 mg TID NGT Last administered on 01/29/17 08:47 ; Admin Dose 20 MG; Start 01/17/17 at 21:00 Docusate Sodium (Colace Liquid Cup) 100 mg BID NGT Last administered on 09:55; Admin Dose 100 MG; Start 01/17/17 at 21:00; Status Future Hold Famotidine (Pepcid) 20 mg DAILY NGT Last administered on 01/29/17 08:44; Admin Dose 20 MG; Start 01/20/17 at 09:00 Lorazepam (Ativan) 1 mg Q6H PRN IV anxiety Last administered on 01/28/17 16:16 ; Admin Dose 1 MG; Start 01/22/17 at 09:00 Tacrolimus (Prograf) 2 mg QPM NGT Last administered on 01/28/17 20:48; Admin Dose 2 MG; Start 01/24/17 at 21:00 Diagnostic Test (Pha) (Accu-Chek) 1 ea 02 XX Last administered on 01/29/17 02: 16; Admin Dose 1 EA; Start 01/26/17 at 02:00 Diagnostic Test (Pha) (Accu-Chek) 1 ea 02 XX ; Start 01/27/17 at 02:00 Insulin Aspart (Novolog Insulin Pen) NOVOLOG *MODERATE* ALGORI... Q4 SC Last administered on 01/29/17 08:46; Admin Dose 4 UNIT; Start 01/26/17 at 17:00 Metoclopramide HCl (Reglan) 5 mg Q8H PRN IV VOMITTING; Start 01/26/17 at 15:30 Hydralazine HCl (Apresoline) 25 mg TID PRN GTB ELEVATED SYSTOLIC BP Last administered on 01/28/17 08:05; Admin Dose 25 MG; Start 01/27/17 at 07:00 Insulin Glargine (Lantus) 7 unit BID@08,20 SC Last administered on 01/29/17 08 :46; Admin Dose 7 UNIT; Start 01/28/17 at 08:00 Assessment/Plan Chief Complaint/Hosp Course IMPRESSION: 1. Hypoxemic respiratory failure. Status post thoracentesis. Status post tracheostomy. 2. Possible altered mental status secondary to opioids. Significant anxiety component. 3. History of renal transplant. Renal insufficiency. Hyponatremia. 4. Dysphagia now with G-tube 5. Improved leukocytosis PLAN: 1. Continue supportive care, continue trach care. Continue mechanical ventilation. 2. Decrease sedation as tolerated. 3. Continue ID recommendations 4. Renal recommendations. 5. DVT and GI prophylaxis. 6. Continue tube feeding as tolerated Critical care time 40 minutes. Stable for transfer to telemetry Problems: LESA SAMUELS MD, [facility] Jan 29, 2017 09:48
--- NOTE | 2017-01-29 11:45 | CONS ---
Date/Time of Note Date/Time of Note DATE: 01/29/17 TIME: 11:44 Assessment/Plan Assessment/Plan Additional Assessment/Plan Additional Assessment/Plan 1. Respiratory failure. 2. Dysphagia. 3. Sepsis. 4. Renal failure. 5. Diabetes mellitus. 6. Breast cancer with metastasis. 7. Chronic obstructive pulmonary disease. 8. Pulmonary hypertension. 9. Atrial fibrillation. 10. Deconditioning 11. Status post renal transplant on immunosuppressive medication 12. Persistent leukocytosis 13. Respiratory failure reintubated 14. Status post PEG and status post trach 15. Anemia, no evidence of active bleeding. Hematocrit is stable Plan Continue feeding Continue present care G-tube is in place, contrary to the x-ray report There is no evidence of active GI bleeding. There is normal in color, patient is on Xarelto Continue to monitor H&H Consultation Date/Type/Reason Admit Date/Time Jan 05, 2017 at 00:15 Initial Consult Date 01/05/17 Type of Consultation: Pulmonary Referring Provider: SUSAN SIMENTAL DO 24 HR Interval Summary Subjective hx not possible: pt non-verbal, pt critical Constitutional: no complaints Exam/Review of Systems Vital Signs Vitals Vital Signs Date Time Temp Pulse Resp B/P Pulse Ox O2 Delivery O2 Flow Rate FiO2 01/29/17 11:00 82 25 99/49 100 Mechanical Ventilator 01/29/17 08:00 99.1 01/29/17 08:00 30 Intake and Output 01/28/17 01/28/17 01/29/17 15:00 23:00 07:00 Intake Total 530 ml 600 ml Output Total 3300 ml 0 ml Balance -2770 ml 600 ml Exam Constitutional: alert, oriented, well developed Psych: nl mood/affect, no complaints Head: atraumatic, normocephalic Eyes: EOMI, PERRL, nl conjunctiva, nl lids, nl sclera ENMT: nl external ears & nose, nl lips & teeth, nl nasal mucosa & septum Neck: non-tender, supple Respiratory: clear to auscultation, normal air movement Cardiovascular: nl pulses, regular rate and rhythm Gastrointestinal: nl liver, spleen, non-tender, soft Musculoskeletal: nl extremities to inspection, nl gait and stance Extremities: normal pulses Neurological: TOOL MACHINIST II-XII intact, nl mental status, nl speech, nl strength Skin: nl turgor, No rash or lesions Lymph: nl lymph nodes Results Result Diagram: 01/29/17 0444 01/29/17 0444 Results 24 hrs Laboratory Tests Test 01/28/17 16:22 01/28/17 21:26 01/29/17 01:55 01/29/17 04:44 Bedside Glucose 200 124 158 White Blood Count 10.5 # Red Blood Count 2.80 #L Hemoglobin 8.1 #L Hematocrit 26.3 L Mean Corpuscular Volume 93.9 Mean Corpuscular Hemoglobin 28.9 L Mean Corpuscular Hemoglobin Concent 30.8 L Red Cell Distribution Width 15.2 H Platelet Count 228 # Mean Platelet Volume 9.9 Neutrophils % 83.9 H Lymphocytes % 5.6 L Monocytes % 7.3 Eosinophils % 2.1 Basophils % 0.2 Nucleated Red Blood Cells % 0.0 Neutrophils # 8.8 H Lymphocytes # 0.6 L Monocytes # 0.8 Eosinophils # 0.2 Basophils # 0.0 Nucleated Red Blood Cells # 0.0 Sodium Level 134 L Potassium Level 3.2 L Chloride Level 99 Carbon Dioxide Level 29 Anion Gap 9 # Blood Urea Nitrogen 37 #H Creatinine 2.79 H Glucose Level 150 Calcium Level 9.1 Phosphorus Level 3.8 Magnesium Level 2.3 Test 01/29/17 04:56 01/29/17 07:24 01/29/17 08:40 Bedside Glucose 165 161 182 Medications Medications Current Medications Naloxone HCl (Narcan) 0.4 mg Q4 PRN IV SEDATION; Start 01/05/17 at 01:30 Bisacodyl (Dulcolax Supp) 10 mg DAILY [place] Last administered on 01/26/17 09:57; Admin Dose 10 MG; Start 01/06/17 at 09:00; Status Future Hold Budesonide (Pulmicort (Neb)) 0.25 mg BID NEB Last administered on 01/29/17 09: 48; Admin Dose 0.25 MG; Start 01/05/17 at 10:30 Fluticasone Propionate (Flonase 0.05% Nasal) 1 spray DAILY NASAL Last administered on 01/29/17 08:42; Admin Dose 1 SPRAY; Start 01/05/17 at 11:00 Fulvestrant (Faslodex) 500 mg Q28D IM ; Start 01/29/17 at 09:00 Magnesium Hydroxide (Milk Of Mag) 30 ml BID PRN PO CONSTIPATION Last administered on 01/16/17 09:09; Admin Dose 30 ML; Start 01/05/17 at 10:30 Nitroglycerin (Nitroglycerin 2% Oint) 0.5 inch Q6 PRN TD CHEST PAIN; Start 03/13 at 10:30 Ondansetron HCl (Zofran Inj) 4 mg Q6H PRN IV NAUSEA Last administered on 14:23; Admin Dose 4 MG; Start 01/05/17 at 10:30 Prednisone (Prednisone) 5 mg DAILY PO Last administered on 01/29/17 08:43; Admin Dose 5 MG; Start 01/05/17 at 12:00 Prednisone (Prednisone) 3 mg DAILY PO Last administered on 01/29/17 08:43; Admin Dose 3 MG; Start 01/05/17 at 12:00 Miscellaneous Information 1 ea NOTE XX ; Start 01/05/17 at 11:00 Glucose (Glutose) 15 gm Q15M PRN PO DECREASED GLUCOSE; Start 01/05/17 at 11:00 Glucose (Glutose) 22.5 gm Q15M PRN PO DECREASED GLUCOSE; Start 01/05/17 at 11: 00 Dextrose (D50w Syringe) 25 ml Q15M PRN IV DECREASED GLUCOSE Last administered on 01/23/17 03:45; Admin Dose 25 ML; Start 01/05/17 at 11:00 Dextrose (D50w Syringe) 50 ml Q15M PRN IV DECREASED GLUCOSE Last administered on 01/08/17 21:33; Admin Dose 50 ML; Start 01/05/17 at 11:00 Glucagon (Glucagen) 1 mg Q15M PRN IM DECREASED GLUCOSE Last administered on 21:08; Admin Dose 1 MG; Start 01/05/17 at 11:00 Glucose 15 gm 15 gm Q15M PRN BUCCAL DECREASED GLUCOSE Last administered on 01/23 21:36; Admin Dose 15 GM; Start 01/05/17 at 11:00 Fentanyl 100 ml @ 2.5 mls/hr TITRATE IV Last administered on 01/07/17 02:25; Admin Dose 7.5 MLS/HR; Start 01/06/17 at 09:30 Norepinephrine/ Dextrose (Levophed/D5W) 500 ml @ 0 mls/hr TITRATE IV ; Start 04/12 at 13:30 Bumetanide 1 mg 1 mg BID IV Last administered on 01/13/17 21:06; Admin Dose 1 MG; Start 01/08/17 at 09:00; Status Future Hold Propofol (Diprivan) 100 ml @ 2.19 mls/hr Q12H IV Last administered on 07:04; Admin Dose 15.28 MLS/HR; Start 01/08/17 at 16:00 Acetaminophen (Tylenol Tab) 650 mg Q6H PRN NGT PAIN AND OR ELEVATED TEMP Last administered on 01/28/17 20:48; Admin Dose 650 MG; Start 01/17/17 at 22:30 Apixaban (Eliquis) 2.5 mg BID NGT Last administered on 01/29/17 08:46; Admin Dose 2.5 MG; Start 01/17/17 at 21:00; Status Future hold Ascorbic Acid (Vitamin C) 500 mg BID NGT Last administered on 01/29/17 08:43; Admin Dose 500 MG; Start 01/17/17 at 21:00 Levothyroxine Sodium (Synthroid) 75 mcg DAILY@06 NGT Last administered on 05:04; Admin Dose 75 MCG; Start 01/18/17 at 06:00 Loratadine (Claritin) 10 mg DAILY NGT Last administered on 01/29/17 08:42; Admin Dose 10 MG; Start 01/18/17 at 09:00 Metoprolol Tartrate (Lopressor) 25 mg BID NGT Last administered on 01/28/17 20 :47; Admin Dose 25 MG; Start 01/17/17 at 21:00 Mirtazapine (Remeron) 15 mg HS NGT Last administered on 01/28/17 20:47; Admin Dose 15 MG; Start 01/17/17 at 21:00 Oxcarbazepine (Trileptal) 600 mg BID NGT Last administered on 01/29/17 08:42; Admin Dose 600 MG; Start 01/17/17 at 21:00 Senna (Senokot) 1 tab HS NGT Last administered on 01/25/17 20:06; Admin Dose 1 TAB; Start 01/17/17 at 21:00; Status Future Hold Sertraline HCl (Zoloft) 75 mg DAILY NGT Last administered on 01/29/17 08:43; Admin Dose 75 MG; Start 01/18/17 at 09:00 Sildenafil Citrate (Revatio) 20 mg TID NGT Last administered on 01/29/17 08:47 ; Admin Dose 20 MG; Start 01/17/17 at 21:00 Docusate Sodium (Colace Liquid Cup) 100 mg BID NGT Last administered on 09:55; Admin Dose 100 MG; Start 01/17/17 at 21:00; Status Future Hold Famotidine (Pepcid) 20 mg DAILY NGT Last administered on 01/29/17 08:44; Admin Dose 20 MG; Start 01/20/17 at 09:00 Lorazepam (Ativan) 1 mg Q6H PRN IV anxiety Last administered on 01/28/17 16:16 ; Admin Dose 1 MG; Start 01/22/17 at 09:00 Tacrolimus (Prograf) 2 mg QPM NGT Last administered on 01/28/17 20:48; Admin Dose 2 MG; Start 01/24/17 at 21:00 Diagnostic Test (Pha) (Accu-Chek) 1 ea 02 XX Last administered on 01/29/17 02: 16; Admin Dose 1 EA; Start 01/26/17 at 02:00 Diagnostic Test (Pha) (Accu-Chek) 1 ea 02 XX ; Start 01/27/17 at 02:00 Insulin Aspart (Novolog Insulin Pen) NOVOLOG *MODERATE* ALGORI... Q4 SC Last administered on 01/29/17 08:46; Admin Dose 4 UNIT; Start 01/26/17 at 17:00 Metoclopramide HCl (Reglan) 5 mg Q8H PRN IV VOMITTING; Start 01/26/17 at 15:30 Hydralazine HCl (Apresoline) 25 mg TID PRN GTB ELEVATED SYSTOLIC BP Last administered on 01/28/17 08:05; Admin Dose 25 MG; Start 01/27/17 at 07:00 Insulin Glargine (Lantus) 7 unit BID@08,20 SC Last administered on 01/29/17 08 :46; Admin Dose 7 UNIT; Start 01/28/17 at 08:00 MEMO WILHELM MD Jan 29, 2017 11:45
--- NOTE | 2017-01-29 13:42 | PN ---
Date/Time of Note Date/Time of Note DATE: 01/29/17 TIME: 13:41 Assessment/Plan Lines/Catheters IV Catheter Type (from Nrsg): Mid Line Dela Cruz in Place (from Nrsg): Yes Assessment/Plan Chief Complaint/Hosp Course SP Tracheostomy Site clean will continue vent support Trach care Problems: Subjective 24 Hr Interval Summary Constitutional: improved Pain Control: mild Exam/Review of Systems Vital Signs Vitals Vital Signs Date Time Temp Pulse Resp B/P Pulse Ox O2 Delivery O2 Flow Rate FiO2 01/29/17 12:00 89 01/29/17 11:00 25 99/49 100 Mechanical Ventilator 01/29/17 08:00 99.1 01/29/17 08:00 30 Intake and Output 01/28/17 01/28/17 01/29/17 15:00 23:00 07:00 Intake Total 530 ml 600 ml Output Total 3300 ml 0 ml Balance -2770 ml 600 ml Exam Respiratory: clear to auscultation, normal air movement Cardiovascular: nl pulses, regular rate and rhythm Gastrointestinal: nl liver, spleen, non-tender, soft Results Result Diagram: 01/29/17 0444 01/29/17 0444 KELSY MOORE MD Jan 29, 2017 13:42
--- NOTE | 2017-01-29 14:28 | PN ---
DATE: 01/29/2017 SUBJECTIVE: No acute events overnight. No fevers. Patient is lying comfortably in bed. VITAL SIGNS: T-max yesterday was 100.3, T-current 99.1, pulse 90, respirations 19, blood pressure 1 02/70, saturation 100 on 30 FIO2. LABORATORY DATA: WBC 10.5, H and H 8.1 and 26.3, platelets 228, neutrophils 83.9, BUN 37, creatinin e 2.79. INDWELLINGS: Trach, PEG, right IJ Perm-A-Cath, Dela Cruz catheter, PICC line. PHYSICAL EXAMINATION: GENERAL: This is a fragile, chronically ill-appearing, elderly woman who is in no distress. HEENT: Head atraumatic, normocephalic. Sclerae anicteric. Buccal mucosa dry. NECK: Supple. Tracheostomy present. CHEST: Rise symmetrical. Breath sounds diminished to bases. HEART: S1, S2. ABDOMEN: Soft. Bowel sounds present. EXTREMITIES: Without cyanosis. Bilateral trace edema. ASSESSMENT: 1. Status post sepsis, urinary tract infection, pneumonia. 2. Acute respiratory failure, status post tracheostomy. 3. Acute on chronic kidney disease, now on hemodialysis. 4. History of kidney transplant, on immunosuppressive therapy. 5. Dysphagia, status post percutaneous endoscopic gastrostomy. 6. Resolving leukocytosis, likely reactive post procedure. PLAN: Remains stable off antibiotics. Continue present care. Vent management as per pulmonary. R epeat cultures p.r.n. Dictated By: [employer] for [employer] BURDEN/AFSHAN Conf#: [id number] DID#: [id number]
[2017-01-29] MEDS: LORAZEPAM 2 MG INJ IV PRN (14:52)
[2017-01-29] MEDS: MIRTAZAPINE 15 MG TAB NGT SCH (20:43)
--- NOTE | 2017-01-29 22:11 | CONS ---
Date/Time of Note Date/Time of Note DATE: 01/29/17 TIME: 22:09 Assessment/Plan Assessment/Plan Chief Complaint/Hosp Course History of breast cancer with lung metastasis. The patient is on medical management. on Faslodex as outpt ANOTHER DOSE IS ORDERED Anemia. Monitor hemoglobin and hematocrit levels. 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 Congestive heart failure exacerbation. Hypothyroidism. Diabetes. Continue current insulin regimen. Pulmonary hypertension. Depression. Problems: Consultation Date/Type/Reason Admit Date/Time Jan 05, 2017 at 00:15 Initial Consult Date 01/05/17 [facility] Referring Provider: SUSAN SIMENTAL DO 24 HR Interval Summary Free Text/Dictation ALL NOTED D/W STAFF Exam/Review of Systems Vital Signs Vitals Vital Signs Date Time Temp Pulse Resp B/P Pulse Ox O2 Delivery O2 Flow Rate FiO2 01/29/17 20:00 87 01/29/17 18:00 16 112/50 100 Mechanical Ventilator 01/29/17 17:05 30 01/29/17 16:00 98.3 Intake and Output 01/28/17 01/28/17 01/29/17 15:00 23:00 07:00 Intake Total 530 ml 600 ml Output Total 3300 ml 0 ml Balance -2770 ml 600 ml Exam HEENT: Head is normocephalic. NECK: Supple. HEART: Regular rate. LUNGS: Show diminished breath sounds base. Positive rhonchi. ABDOMEN: Soft, nontender to palpation. No rebound or guarding. EXTREMITIES: Negative for clubbing, cyanosis. No edema. DERMATOLOGIC: Clean. No rashes. MUSCULOSKELETAL: No joint effusion. NEUROLOGIC: No change in exam. Results Result Diagram: 01/29/17 0444 01/29/17 0444 Results 24 hrs Laboratory Tests Test 01/29/17 01:55 01/29/17 04:44 01/29/17 04:56 01/29/17 07:24 Bedside Glucose 158 165 161 White Blood Count 10.5 # Red Blood Count 2.80 #L Hemoglobin 8.1 #L Hematocrit 26.3 L Mean Corpuscular Volume 93.9 Mean Corpuscular Hemoglobin 28.9 L Mean Corpuscular Hemoglobin Concent 30.8 L Red Cell Distribution Width 15.2 H Platelet Count 228 # Mean Platelet Volume 9.9 Neutrophils % 83.9 H Lymphocytes % 5.6 L Monocytes % 7.3 Eosinophils % 2.1 Basophils % 0.2 Nucleated Red Blood Cells % 0.0 Neutrophils # 8.8 H Lymphocytes # 0.6 L Monocytes # 0.8 Eosinophils # 0.2 Basophils # 0.0 Nucleated Red Blood Cells # 0.0 Sodium Level 134 L Potassium Level 3.2 L Chloride Level 99 Carbon Dioxide Level 29 Anion Gap 9 # Blood Urea Nitrogen 37 #H Creatinine 2.79 H Glucose Level 150 Calcium Level 9.1 Phosphorus Level 3.8 Magnesium Level 2.3 Test 01/29/17 08:40 01/29/17 12:49 01/29/17 16:56 01/29/17 20:13 Bedside Glucose 182 174 211 142 Test 01/29/17 20:51 Bedside Glucose 142 Medications Medications Current Medications Naloxone HCl (Narcan) 0.4 mg Q4 PRN IV SEDATION; Start 01/05/17 at 01:30 Bisacodyl (Dulcolax Supp) 10 mg DAILY [place] Last administered on 01/26/17 09:57; Admin Dose 10 MG; Start 01/06/17 at 09:00; Status Future Hold Budesonide (Pulmicort (Neb)) 0.25 mg BID NEB Last administered on 01/29/17 20: 02; Admin Dose 0.25 MG; Start 01/05/17 at 10:30 Fluticasone Propionate (Flonase 0.05% Nasal) 1 spray DAILY NASAL Last administered on 01/29/17 08:42; Admin Dose 1 SPRAY; Start 01/05/17 at 11:00 Magnesium Hydroxide (Milk Of Mag) 30 ml BID PRN PO CONSTIPATION Last administered on 01/16/17 09:09; Admin Dose 30 ML; Start 01/05/17 at 10:30 Nitroglycerin (Nitroglycerin 2% Oint) 0.5 inch Q6 PRN TD CHEST PAIN; Start 03/13 at 10:30 Ondansetron HCl (Zofran Inj) 4 mg Q6H PRN IV NAUSEA Last administered on 14:23; Admin Dose 4 MG; Start 01/05/17 at 10:30 Prednisone (Prednisone) 5 mg DAILY PO Last administered on 01/29/17 08:43; Admin Dose 5 MG; Start 01/05/17 at 12:00 Prednisone (Prednisone) 3 mg DAILY PO Last administered on 01/29/17 08:43; Admin Dose 3 MG; Start 01/05/17 at 12:00 Miscellaneous Information 1 ea NOTE XX ; Start 01/05/17 at 11:00 Glucose (Glutose) 15 gm Q15M PRN PO DECREASED GLUCOSE; Start 01/05/17 at 11:00 Glucose (Glutose) 22.5 gm Q15M PRN PO DECREASED GLUCOSE; Start 01/05/17 at 11: 00 Dextrose (D50w Syringe) 25 ml Q15M PRN IV DECREASED GLUCOSE Last administered on 01/23/17 03:45; Admin Dose 25 ML; Start 01/05/17 at 11:00 Dextrose (D50w Syringe) 50 ml Q15M PRN IV DECREASED GLUCOSE Last administered on 01/08/17 21:33; Admin Dose 50 ML; Start 01/05/17 at 11:00 Glucagon (Glucagen) 1 mg Q15M PRN IM DECREASED GLUCOSE Last administered on 21:08; Admin Dose 1 MG; Start 01/05/17 at 11:00 Glucose 15 gm 15 gm Q15M PRN BUCCAL DECREASED GLUCOSE Last administered on 01/23 21:36; Admin Dose 15 GM; Start 01/05/17 at 11:00 Fentanyl 100 ml @ 2.5 mls/hr TITRATE IV Last administered on 01/07/17 02:25; Admin Dose 7.5 MLS/HR; Start 01/06/17 at 09:30 Norepinephrine/ Dextrose (Levophed/D5W) 500 ml @ 0 mls/hr TITRATE IV ; Start 04/12 at 13:30 Bumetanide 1 mg 1 mg BID IV Last administered on 01/13/17 21:06; Admin Dose 1 MG; Start 01/08/17 at 09:00; Status Future Hold Propofol (Diprivan) 100 ml @ 2.19 mls/hr Q12H IV Last administered on 07:04; Admin Dose 15.28 MLS/HR; Start 01/08/17 at 16:00 Acetaminophen (Tylenol Tab) 650 mg Q6H PRN NGT PAIN AND OR ELEVATED TEMP Last administered on 01/28/17 20:48; Admin Dose 650 MG; Start 01/17/17 at 22:30 Apixaban (Eliquis) 2.5 mg BID NGT Last administered on 01/29/17 20:43; Admin Dose 2.5 MG; Start 01/17/17 at 21:00; Status Future hold Ascorbic Acid (Vitamin C) 500 mg BID NGT Last administered on 01/29/17 20:44; Admin Dose 500 MG; Start 01/17/17 at 21:00 Levothyroxine Sodium (Synthroid) 75 mcg DAILY@06 NGT Last administered on 05:04; Admin Dose 75 MCG; Start 01/18/17 at 06:00 Loratadine (Claritin) 10 mg DAILY NGT Last administered on 01/29/17 08:42; Admin Dose 10 MG; Start 01/18/17 at 09:00 Metoprolol Tartrate (Lopressor) 25 mg BID NGT Last administered on 01/29/17 20 :45; Admin Dose 25 MG; Start 01/17/17 at 21:00 Mirtazapine (Remeron) 15 mg HS NGT Last administered on 01/29/17 20:43; Admin Dose 15 MG; Start 01/17/17 at 21:00 Oxcarbazepine (Trileptal) 600 mg BID NGT Last administered on 01/29/17 20:44; Admin Dose 600 MG; Start 01/17/17 at 21:00 Senna (Senokot) 1 tab HS NGT Last administered on 01/25/17 20:06; Admin Dose 1 TAB; Start 01/17/17 at 21:00; Status Future Hold Sertraline HCl (Zoloft) 75 mg DAILY NGT Last administered on 01/29/17 08:43; Admin Dose 75 MG; Start 01/18/17 at 09:00 Sildenafil Citrate (Revatio) 20 mg TID NGT Last administered on 01/29/17 20:44 ; Admin Dose 20 MG; Start 01/17/17 at 21:00 Docusate Sodium (Colace Liquid Cup) 100 mg BID NGT Last administered on 09:55; Admin Dose 100 MG; Start 01/17/17 at 21:00; Status Future Hold Famotidine (Pepcid) 20 mg DAILY NGT Last administered on 01/29/17 08:44; Admin Dose 20 MG; Start 01/20/17 at 09:00 Lorazepam (Ativan) 1 mg Q6H PRN IV anxiety Last administered on 01/29/17 14:52 ; Admin Dose 1 MG; Start 01/22/17 at 09:00 Tacrolimus (Prograf) 2 mg QPM NGT Last administered on 01/29/17 20:43; Admin Dose 2 MG; Start 01/24/17 at 21:00 Diagnostic Test (Pha) (Accu-Chek) 1 ea 02 XX Last administered on 01/29/17 02: 16; Admin Dose 1 EA; Start 01/26/17 at 02:00 Diagnostic Test (Pha) (Accu-Chek) 1 ea 02 XX ; Start 01/27/17 at 02:00 Insulin Aspart (Novolog Insulin Pen) NOVOLOG *MODERATE* ALGORI... Q4 SC Last administered on 01/29/17 20:54; Admin Dose 2 UNIT; Start 01/26/17 at 17:00 Metoclopramide HCl (Reglan) 5 mg Q8H PRN IV VOMITTING; Start 01/26/17 at 15:30 Hydralazine HCl (Apresoline) 25 mg TID PRN GTB ELEVATED SYSTOLIC BP Last administered on 01/28/17 08:05; Admin Dose 25 MG; Start 01/27/17 at 07:00 Insulin Glargine (Lantus) 7 unit BID@08,20 SC Last administered on 01/29/17 20 :16; Admin Dose 7 UNIT; Start 01/28/17 at 08:00 Fulvestrant (Faslodex) 500 mg Q28D IM Last administered on 01/29/17 21:16; Admin Dose 500 MG; Start 01/29/17 at 21:00 SHANICE DAVENPORT MD Jan 29, 2017 22:11
[2017-01-30] VITALS (39 sets, daily range): BP systolic 104–175; BP diastolic 41–96; PULSE 74–108; RESP 12–21
[2017-01-30] MEDS: IPRATROPIUM (HFA) 12.9 GM INHALER INH SCH ×4 (01:01→19:21)
[2017-01-30] MEDS: ALBUTEROL 18 GM INHALER INH SCH ×4 (01:01→19:21)
[2017-01-30] MEDS: INSULIN ASPART [NOVOLOG] 3 ML PEN SC SCH ×6 (01:09→21:00)
[2017-01-30] MEDS: ACCU-CHEK XX SCH ×2 (02:00)
[2017-01-30] MEDS: PROPOFOL 100 ML IV SCH ×2 (03:23→16:00)
[2017-01-30 05:15] LABS: ABNORMAL IP MESSAGE 1; BASOPHILS % 0.1 % (0.0-2.0); EOSINOPHILS # 0.2 10^3/ul (0.0-0.5); EOSINOPHILS % 2.3 % (0.0-7.0); HEMATOCRIT 24.8 % (37.0-47.0); HEMOGLOBIN 7.6 g/dl (12.0-16.0); LYMPHOCYTES # 0.5 10^3/ul (0.8-2.9); LYMPHOCYTES % 5.4 % (15.0-51.0); MEAN CORPUSCULAR HEMOGLOBIN 29.5 pg (29.0-33.0); MEAN CORPUSCULAR HGB CONC 30.6 g/dl (32.0-37.0); MEAN CORPUSCULAR VOLUME 96.1 fl (82.0-101.0); MEAN PLATELET VOLUME 9.8 fl (7.4-10.4); MONOCYTE # 0.6 10^3/ul (0.3-0.9); NEUTROPHIL # 7.7 10^3/ul (1.6-7.5); NEUTROPHILS % 84.4 % (39.0-77.0); PLATELET COUNT 220 10^3/UL (140-415); RED BLOOD COUNT 2.58 10^6/ul (4.20-5.40); RED CELL DISTRIBUTION WIDTH 15.2 % (11.5-14.5); WHITE BLOOD COUNT 9.1 10^3/ul (4.8-10.8)
[2017-01-30 05:16] LABS: POSITIVE DIFF @See below
[2017-01-30] MEDS: LEVOTHYROXINE 75 MCG TAB NGT SCH (05:27)
[2017-01-30 05:47] LABS: CALCIUM 9.1 mg/dl (8.4-10.2); CREATININE 2.35 mg/dl (0.44-1.00); MAGNESIUM 2.2 mg/dl (1.7-2.5); PHOSPHORUS 3.2 mg/dl (2.5-4.9); POTASSIUM 3.5 mmol/L (3.5-5.1)
--- NOTE | 2017-01-30 06:59 | PN ---
DATE: 01/29/2017 SUBJECTIVE: The patient is stable. No events overnight. No fevers, chills, nausea, vomiting. Ashley murrell had hemodialysis yesterday, tolerated well with 3 liters removed. No other acute events noted. No hemoptysis, hematemesis or hematochezia. OBJECTIVE: VITAL SIGNS: Blood pressure 171/82, respiration 19, pulse 87, temperature 98.6. HEENT: Head is normocephalic. NECK: Supple. HEART: Regular rate. LUNGS: Show diminished breath sounds at base. ABDOMEN: Soft, nontender to palpation. No rebound or guarding. EXTREMITIES: Negative for clubbing, cyanosis. Positive edema. DERMATOLOGIC: No rashes. MUSCULOSKELETAL: No joint effusions. NEUROLOGIC: No change in exam. MEDICATIONS: Reviewed. LABORATORY DATA: Shows white count 10.5, hemoglobin 9.1, hematocrit 26.2, platelet count is 228. S odium 134, potassium 3.2, BUN 37, creatinine 2.79, the patient's Prograf level was 6.6. ASSESSMENT AND PLAN: 1. 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 Etiology of acute kidney inju ry is secondary to acute tubular necrosis. The patient is currently dialysis dependent, no signs of recovery. Continue intermittent dialysis. 2. Hyponatremia. Continue dialysis with 140 sodium bath. 3. Hypokalemia, replete with potassium chloride. 4. Paroxysmal atrial fibrillation, continue current medical management and follow up with cardiolog y. 5. Sepsis, status post shock secondary to pneumonia. The patient is completing antibiotic course. 6. Leukocytosis, likely due to stress and demargination. Will continue to monitor closely. Follow up with Infectious Disease. 7. Fungal urinary tract infection. The patient is status post antifungal therapy. 8. 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 The patien t's current acute kidney injury as stated above. Continue current immunosuppressive regimen. Progr af levels within acceptable range. 9. Hypothyroidism. Continue Synthroid. 10. Anemia. Continue to monitor hemoglobin and hematocrit levels. 11. Diabetes. Continue Accu-Cheks and insulin sliding scale. 12. Pulmonary hypertension. Continue current medical management. 13. End-stage dependent respiratory failure, status post tracheostomy, vent settings have been revi ewed. Continue to monitor. 14. Volume overload. Continue ultrafiltration with dialysis. 15. Dysphagia, status post PEG, continue tube feeding. 16. History of breast cancer. Follow up with hematology. The patient is on Faslodex. 17. Pleural effusion. The patient's cytology was negative. 18. Gastrointestinal and deep venous thrombosis prophylaxis. DISPOSITION: The patient is pending a Doss evaluation. Dictated By: SUSAN HERRON/AFSHAN Conf#: [id number] DID#: [id number]
[2017-01-30] MEDS: BUDESONIDE (NEB) 0.25 MG/2 ML AMP NEB SCH ×2 (07:49→21:16)
[2017-01-30] MEDS ORDERED: AMLODIPINE 10 MG TAB GTB SCH (09:00)
[2017-01-30] MEDS: INSULIN GLARGINE [LANtus] 3 ML PEN SC SCH ×2 (09:06→20:00)
[2017-01-30] MEDS: LORATADINE 10 MG TAB NGT SCH (09:09)
[2017-01-30] MEDS: APIXABAN 5 MG TABLET NGT SCH ×2 (09:09→22:53)
[2017-01-30] MEDS: OXCARBAZEPINE 300 MG TAB NGT SCH ×2 (09:09→21:00)
[2017-01-30] MEDS: TACROLIMUS 1 MG CAP NGT SCH ×2 (09:09→21:00)
[2017-01-30] MEDS: FAMOTIDINE 20 MG TAB NGT SCH (09:10)
[2017-01-30] MEDS: ASCORBIC ACID 500 MG TAB NGT SCH ×2 (09:10→22:52)
[2017-01-30] MEDS: METOPROLOL 25 MG TAB NGT SCH (09:10)
[2017-01-30] MEDS: SERTRALINE 50 MG TAB NGT SCH (09:10)
[2017-01-30] MEDS: predniSONE 1 MG TAB PO SCH (09:11)
[2017-01-30] MEDS: FLUTICASONE 0.05% 16 GM NAS SPRAY NASAL SCH (09:11)
[2017-01-30] MEDS: predniSONE 5 MG TAB PO SCH (09:11)
[2017-01-30] MEDS: BALSAM PERU/CASTOR OIL 60 GM TUBE TOP SCH (09:19)
[2017-01-30] MEDS: SILDENAFIL 20 MG TAB NGT SCH ×3 (09:46→22:53)
--- NOTE | 2017-01-30 11:20 | CONS ---
Date/Time of Note Date/Time of Note DATE: 01/30/17 TIME: 11:19 Consult Date/Type/Reason Admit Date/Time Jan 05, 2017 at 00:15 Initial Consult Date 01/05/17 Type of Consultation: Pulmonary Ordering Provider: SUSAN SIMENTAL DO Subjective Patient remains stable this morning. Continues hemodialysis currently hemodynamically stable. Objective Vital Signs Date Time Temp Pulse Resp B/P Pulse Ox O2 Delivery O2 Flow Rate FiO2 01/30/17 09:42 83 18 100 30 01/30/17 06:00 150/67 Mechanical Ventilator 01/30/17 02:00 98.7 Intake and Output 01/29/17 01/29/17 01/30/17 15:00 23:00 07:00 Intake Total 620 ml 350 ml 310 ml Output Total 2300 ml 10 ml 10 ml Balance -1680 ml 340 ml 300 ml Exam PHYSICAL EXAMINATION GENERAL: Elderly lady on mechanical ventilation appears comfortable at rest VITAL SIGNS: see below. HEENT: Pupils equal, round, and reactive to light. Tracheostomy site clean and intact. CARDIAC: S1, S2, 1/6 systolic ejection murmur CHEST: Diminished air entry bilaterally. ABDOMEN: Mildly distended. Bowel sounds present no guarding or rebound EXTREMITIES: No cyanosis, clubbing edema +1 NEUROLOGIC: Generalized weakness Results/Medications Result Diagram: 01/30/17 0423 01/30/17 0423 Results 24 hrs Laboratory Tests Test 01/29/17 12:49 01/29/17 16:56 01/29/17 20:13 01/29/17 20:51 Bedside Glucose 174 211 142 142 Test 01/30/17 01:05 01/30/17 04:23 01/30/17 04:48 01/30/17 08:48 Bedside Glucose 204 182 175 White Blood Count 9.1 Red Blood Count 2.58 L Hemoglobin 7.6 L Hematocrit 24.8 L Mean Corpuscular Volume 96.1 Mean Corpuscular Hemoglobin 29.5 Mean Corpuscular Hemoglobin Concent 30.6 L Red Cell Distribution Width 15.2 H Platelet Count 220 Mean Platelet Volume 9.8 Neutrophils % 84.4 H Lymphocytes % 5.4 L Monocytes % 7.0 Eosinophils % 2.3 Basophils % 0.1 Nucleated Red Blood Cells % 0.0 Neutrophils # 7.7 H Lymphocytes # 0.5 L Monocytes # 0.6 Eosinophils # 0.2 Basophils # 0.0 Nucleated Red Blood Cells # 0.0 Sodium Level 136 Potassium Level 3.5 Chloride Level 101 Carbon Dioxide Level 30 Anion Gap 9 Blood Urea Nitrogen 28 H Creatinine 2.35 H Glucose Level 177 Calcium Level 9.1 Phosphorus Level 3.2 Magnesium Level 2.2 Medications Current Medications Naloxone HCl (Narcan) 0.4 mg Q4 PRN IV SEDATION; Start 01/05/17 at 01:30 Bisacodyl (Dulcolax Supp) 10 mg DAILY [place] Last administered on 01/26/17 09:57; Admin Dose 10 MG; Start 01/06/17 at 09:00; Status Future Hold Budesonide (Pulmicort (Neb)) 0.25 mg BID NEB Last administered on 01/30/17 07: 49; Admin Dose 0.25 MG; Start 01/05/17 at 10:30 Fluticasone Propionate (Flonase 0.05% Nasal) 1 spray DAILY NASAL Last administered on 01/30/17 09:11; Admin Dose 1 SPRAY; Start 01/05/17 at 11:00 Magnesium Hydroxide (Milk Of Mag) 30 ml BID PRN PO CONSTIPATION Last administered on 01/16/17 09:09; Admin Dose 30 ML; Start 01/05/17 at 10:30 Nitroglycerin (Nitroglycerin 2% Oint) 0.5 inch Q6 PRN TD CHEST PAIN; Start 03/13 at 10:30 Ondansetron HCl (Zofran Inj) 4 mg Q6H PRN IV NAUSEA Last administered on 14:23; Admin Dose 4 MG; Start 01/05/17 at 10:30 Prednisone (Prednisone) 5 mg DAILY PO Last administered on 01/30/17 09:11; Admin Dose 5 MG; Start 01/05/17 at 12:00 Prednisone (Prednisone) 3 mg DAILY PO Last administered on 01/30/17 09:11; Admin Dose 3 MG; Start 01/05/17 at 12:00 Miscellaneous Information 1 ea NOTE XX ; Start 01/05/17 at 11:00 Glucose (Glutose) 15 gm Q15M PRN PO DECREASED GLUCOSE; Start 01/05/17 at 11:00 Glucose (Glutose) 22.5 gm Q15M PRN PO DECREASED GLUCOSE; Start 01/05/17 at 11: 00 Dextrose (D50w Syringe) 25 ml Q15M PRN IV DECREASED GLUCOSE Last administered on 01/23/17 03:45; Admin Dose 25 ML; Start 01/05/17 at 11:00 Dextrose (D50w Syringe) 50 ml Q15M PRN IV DECREASED GLUCOSE Last administered on 01/08/17 21:33; Admin Dose 50 ML; Start 01/05/17 at 11:00 Glucagon (Glucagen) 1 mg Q15M PRN IM DECREASED GLUCOSE Last administered on 21:08; Admin Dose 1 MG; Start 01/05/17 at 11:00 Glucose 15 gm 15 gm Q15M PRN BUCCAL DECREASED GLUCOSE Last administered on 01/23 21:36; Admin Dose 15 GM; Start 01/05/17 at 11:00 Fentanyl 100 ml @ 2.5 mls/hr TITRATE IV Last administered on 01/07/17 02:25; Admin Dose 7.5 MLS/HR; Start 01/06/17 at 09:30 Norepinephrine/ Dextrose (Levophed/D5W) 500 ml @ 0 mls/hr TITRATE IV ; Start 04/12 at 13:30 Bumetanide 1 mg 1 mg BID IV Last administered on 01/13/17 21:06; Admin Dose 1 MG; Start 01/08/17 at 09:00; Status Future Hold Propofol (Diprivan) 100 ml @ 2.19 mls/hr Q12H IV Last administered on 07:04; Admin Dose 15.28 MLS/HR; Start 01/08/17 at 16:00 Acetaminophen (Tylenol Tab) 650 mg Q6H PRN NGT PAIN AND OR ELEVATED TEMP Last administered on 01/28/17 20:48; Admin Dose 650 MG; Start 01/17/17 at 22:30 Apixaban (Eliquis) 2.5 mg BID NGT Last administered on 01/30/17 09:09; Admin Dose 2.5 MG; Start 01/17/17 at 21:00; Status Future hold Ascorbic Acid (Vitamin C) 500 mg BID NGT Last administered on 01/30/17 09:10; Admin Dose 500 MG; Start 01/17/17 at 21:00 Levothyroxine Sodium (Synthroid) 75 mcg DAILY@06 NGT Last administered on 05:27; Admin Dose 75 MCG; Start 01/18/17 at 06:00 Loratadine (Claritin) 10 mg DAILY NGT Last administered on 01/30/17 09:09; Admin Dose 10 MG; Start 01/18/17 at 09:00 Metoprolol Tartrate (Lopressor) 25 mg BID NGT Last administered on 01/30/17 09 :10; Admin Dose 25 MG; Start 01/17/17 at 21:00 Mirtazapine (Remeron) 15 mg HS NGT Last administered on 01/29/17 20:43; Admin Dose 15 MG; Start 01/17/17 at 21:00 Oxcarbazepine (Trileptal) 600 mg BID NGT Last administered on 01/30/17 09:09; Admin Dose 600 MG; Start 01/17/17 at 21:00 Senna (Senokot) 1 tab HS NGT Last administered on 01/25/17 20:06; Admin Dose 1 TAB; Start 01/17/17 at 21:00; Status Future Hold Sertraline HCl (Zoloft) 75 mg DAILY NGT Last administered on 01/30/17 09:10; Admin Dose 75 MG; Start 01/18/17 at 09:00 Sildenafil Citrate (Revatio) 20 mg TID NGT Last administered on 01/30/17 09:46 ; Admin Dose 20 MG; Start 01/17/17 at 21:00 Docusate Sodium (Colace Liquid Cup) 100 mg BID NGT Last administered on 09:55; Admin Dose 100 MG; Start 01/17/17 at 21:00; Status Future Hold Famotidine (Pepcid) 20 mg DAILY NGT Last administered on 01/30/17 09:10; Admin Dose 20 MG; Start 01/20/17 at 09:00 Lorazepam (Ativan) 1 mg Q6H PRN IV anxiety Last administered on 01/29/17 14:52 ; Admin Dose 1 MG; Start 01/22/17 at 09:00 Tacrolimus (Prograf) 2 mg QPM NGT Last administered on 01/29/17 20:43; Admin Dose 2 MG; Start 01/24/17 at 21:00 Diagnostic Test (Pha) (Accu-Chek) 1 ea 02 XX Last administered on 01/30/17 02: 00; Admin Dose 1 EA; Start 01/26/17 at 02:00 Diagnostic Test (Pha) (Accu-Chek) 1 ea 02 XX Last administered on 01/30/17 02: 00; Admin Dose 1 EA; Start 01/27/17 at 02:00 Insulin Aspart (Novolog Insulin Pen) NOVOLOG *MODERATE* ALGORI... Q4 SC Last administered on 01/30/17 09:44; Admin Dose 2 UNIT; Start 01/26/17 at 17:00 Metoclopramide HCl (Reglan) 5 mg Q8H PRN IV VOMITTING; Start 01/26/17 at 15:30 Hydralazine HCl (Apresoline) 25 mg TID PRN GTB ELEVATED SYSTOLIC BP Last administered on 01/30/17 00:28; Admin Dose 25 MG; Start 01/27/17 at 07:00 Insulin Glargine (Lantus) 7 unit BID@08,20 SC Last administered on 01/30/17 09 :06; Admin Dose 7 UNIT; Start 01/28/17 at 08:00 Fulvestrant (Faslodex) 500 mg Q28D IM Last administered on 01/29/17 21:16; Admin Dose 500 MG; Start 01/29/17 at 21:00 Amlodipine Besylate (Norvasc) 10 mg DAILY GTB Last administered on 01/30/17 09 :09; Admin Dose 10 MG; Start 01/30/17 at 09:00 Assessment/Plan Chief Complaint/Hosp Course IMPRESSION: 1. Hypoxemic respiratory failure. Status post thoracentesis. Status post tracheostomy. 2. Possible altered mental status secondary to opioids. Significant anxiety component. 3. History of renal transplant. Renal insufficiency. Hyponatremia. 4. Dysphagia now with G-tube 5. Improved leukocytosis PLAN: 1. Continue supportive care, continue trach care. Continue mechanical ventilation. 2. Decrease sedation as tolerated. 3. Continue ID recommendations 4. Renal recommendations. 5. DVT and GI prophylaxis. 6. Continue tube feeding as tolerated Critical care time 40 minutes. Stable for transfer to telemetry Problems: LESA SAMUELS MD, [facility] Jan 30, 2017 11:20
--- NOTE | 2017-01-30 11:33 | PN ---
Date/Time of Note Date/Time of Note DATE: 01/30/17 TIME: 11:32 Assessment/Plan VTE Prophylaxis VTE Prophylaxis Intervention: other Lines/Catheters IV Catheter Type (from Nrs): Central line still needed: No Urinary Cath still in place: No Assessment/Plan Chief Complaint/Hosp Course SP Tracheostomy Site clean will continue vent support Trach care Problems: Subjective 24 Hr Interval Summary Cardiovascular: no complaints Gastrointestinal: no complaints Genitourinary: no complaints Musculoskeletal: no complaints Skin: no complaints Exam/Review of Systems Vital Signs Vitals Vital Signs Date Time Temp Pulse Resp B/P Pulse Ox O2 Delivery O2 Flow Rate FiO2 01/30/17 11:00 89 13 151/62 100 Mechanical Ventilator 01/30/17 09:42 30 01/30/17 08:00 98.6 Intake and Output 01/29/17 01/29/17 01/30/17 15:00 23:00 07:00 Intake Total 620 ml 350 ml 310 ml Output Total 2300 ml 10 ml 10 ml Balance -1680 ml 340 ml 300 ml Exam ENMT: nl external ears & nose, nl lips & teeth, nl nasal mucosa & septum Neck: non-tender, supple Respiratory: clear to auscultation, normal air movement Cardiovascular: nl pulses, regular rate and rhythm Results Result Diagram: 01/30/17 0423 01/30/17 0423 Results 24 hrs Laboratory Tests Test 01/29/17 12:49 01/29/17 16:56 01/29/17 20:13 01/29/17 20:51 Bedside Glucose 174 211 142 142 Test 01/30/17 01:05 01/30/17 04:23 01/30/17 04:48 01/30/17 08:48 Bedside Glucose 204 182 175 White Blood Count 9.1 Red Blood Count 2.58 L Hemoglobin 7.6 L Hematocrit 24.8 L Mean Corpuscular Volume 96.1 Mean Corpuscular Hemoglobin 29.5 Mean Corpuscular Hemoglobin Concent 30.6 L Red Cell Distribution Width 15.2 H Platelet Count 220 Mean Platelet Volume 9.8 Neutrophils % 84.4 H Lymphocytes % 5.4 L Monocytes % 7.0 Eosinophils % 2.3 Basophils % 0.1 Nucleated Red Blood Cells % 0.0 Neutrophils # 7.7 H Lymphocytes # 0.5 L Monocytes # 0.6 Eosinophils # 0.2 Basophils # 0.0 Nucleated Red Blood Cells # 0.0 Sodium Level 136 Potassium Level 3.5 Chloride Level 101 Carbon Dioxide Level 30 Anion Gap 9 Blood Urea Nitrogen 28 H Creatinine 2.35 H Glucose Level 177 Calcium Level 9.1 Phosphorus Level 3.2 Magnesium Level 2.2 Medications Medications Current Medications Naloxone HCl (Narcan) 0.4 mg Q4 PRN IV SEDATION; Start 01/05/17 at 01:30 Bisacodyl (Dulcolax Supp) 10 mg DAILY [place] Last administered on 01/26/17 09:57; Admin Dose 10 MG; Start 01/06/17 at 09:00; Status Future Hold Budesonide (Pulmicort (Neb)) 0.25 mg BID NEB Last administered on 01/30/17 07: 49; Admin Dose 0.25 MG; Start 01/05/17 at 10:30 Fluticasone Propionate (Flonase 0.05% Nasal) 1 spray DAILY NASAL Last administered on 01/30/17 09:11; Admin Dose 1 SPRAY; Start 01/05/17 at 11:00 Magnesium Hydroxide (Milk Of Mag) 30 ml BID PRN PO CONSTIPATION Last administered on 01/16/17 09:09; Admin Dose 30 ML; Start 01/05/17 at 10:30 Nitroglycerin (Nitroglycerin 2% Oint) 0.5 inch Q6 PRN TD CHEST PAIN; Start 03/13 at 10:30 Ondansetron HCl (Zofran Inj) 4 mg Q6H PRN IV NAUSEA Last administered on 14:23; Admin Dose 4 MG; Start 01/05/17 at 10:30 Prednisone (Prednisone) 5 mg DAILY PO Last administered on 01/30/17 09:11; Admin Dose 5 MG; Start 01/05/17 at 12:00 Prednisone (Prednisone) 3 mg DAILY PO Last administered on 01/30/17 09:11; Admin Dose 3 MG; Start 01/05/17 at 12:00 Miscellaneous Information 1 ea NOTE XX ; Start 01/05/17 at 11:00 Glucose (Glutose) 15 gm Q15M PRN PO DECREASED GLUCOSE; Start 01/05/17 at 11:00 Glucose (Glutose) 22.5 gm Q15M PRN PO DECREASED GLUCOSE; Start 01/05/17 at 11: 00 Dextrose (D50w Syringe) 25 ml Q15M PRN IV DECREASED GLUCOSE Last administered on 01/23/17 03:45; Admin Dose 25 ML; Start 01/05/17 at 11:00 Dextrose (D50w Syringe) 50 ml Q15M PRN IV DECREASED GLUCOSE Last administered on 01/08/17 21:33; Admin Dose 50 ML; Start 01/05/17 at 11:00 Glucagon (Glucagen) 1 mg Q15M PRN IM DECREASED GLUCOSE Last administered on 21:08; Admin Dose 1 MG; Start 01/05/17 at 11:00 Glucose 15 gm 15 gm Q15M PRN BUCCAL DECREASED GLUCOSE Last administered on 01/23 21:36; Admin Dose 15 GM; Start 01/05/17 at 11:00 Fentanyl 100 ml @ 2.5 mls/hr TITRATE IV Last administered on 01/07/17 02:25; Admin Dose 7.5 MLS/HR; Start 01/06/17 at 09:30 Norepinephrine/ Dextrose (Levophed/D5W) 500 ml @ 0 mls/hr TITRATE IV ; Start 04/12 at 13:30 Bumetanide 1 mg 1 mg BID IV Last administered on 01/13/17 21:06; Admin Dose 1 MG; Start 01/08/17 at 09:00; Status Future Hold Propofol (Diprivan) 100 ml @ 2.19 mls/hr Q12H IV Last administered on 07:04; Admin Dose 15.28 MLS/HR; Start 01/08/17 at 16:00 Acetaminophen (Tylenol Tab) 650 mg Q6H PRN NGT PAIN AND OR ELEVATED TEMP Last administered on 01/28/17 20:48; Admin Dose 650 MG; Start 01/17/17 at 22:30 Apixaban (Eliquis) 2.5 mg BID NGT Last administered on 01/30/17 09:09; Admin Dose 2.5 MG; Start 01/17/17 at 21:00; Status Future hold Ascorbic Acid (Vitamin C) 500 mg BID NGT Last administered on 01/30/17 09:10; Admin Dose 500 MG; Start 01/17/17 at 21:00 Levothyroxine Sodium (Synthroid) 75 mcg DAILY@06 NGT Last administered on 05:27; Admin Dose 75 MCG; Start 01/18/17 at 06:00 Loratadine (Claritin) 10 mg DAILY NGT Last administered on 01/30/17 09:09; Admin Dose 10 MG; Start 01/18/17 at 09:00 Metoprolol Tartrate (Lopressor) 25 mg BID NGT Last administered on 01/30/17 09 :10; Admin Dose 25 MG; Start 01/17/17 at 21:00 Mirtazapine (Remeron) 15 mg HS NGT Last administered on 01/29/17 20:43; Admin Dose 15 MG; Start 01/17/17 at 21:00 Oxcarbazepine (Trileptal) 600 mg BID NGT Last administered on 01/30/17 09:09; Admin Dose 600 MG; Start 01/17/17 at 21:00 Senna (Senokot) 1 tab HS NGT Last administered on 01/25/17 20:06; Admin Dose 1 TAB; Start 01/17/17 at 21:00; Status Future Hold Sertraline HCl (Zoloft) 75 mg DAILY NGT Last administered on 01/30/17 09:10; Admin Dose 75 MG; Start 01/18/17 at 09:00 Sildenafil Citrate (Revatio) 20 mg TID NGT Last administered on 01/30/17 09:46 ; Admin Dose 20 MG; Start 01/17/17 at 21:00 Docusate Sodium (Colace Liquid Cup) 100 mg BID NGT Last administered on 09:55; Admin Dose 100 MG; Start 01/17/17 at 21:00; Status Future Hold Famotidine (Pepcid) 20 mg DAILY NGT Last administered on 01/30/17 09:10; Admin Dose 20 MG; Start 01/20/17 at 09:00 Lorazepam (Ativan) 1 mg Q6H PRN IV anxiety Last administered on 01/29/17 14:52 ; Admin Dose 1 MG; Start 01/22/17 at 09:00 Tacrolimus (Prograf) 2 mg QPM NGT Last administered on 01/29/17 20:43; Admin Dose 2 MG; Start 01/24/17 at 21:00 Diagnostic Test (Pha) (Accu-Chek) 1 ea 02 XX Last administered on 01/30/17 02: 00; Admin Dose 1 EA; Start 01/26/17 at 02:00 Diagnostic Test (Pha) (Accu-Chek) 1 ea XX Last administered on 01/30/17 02: 00; Admin Dose 1 EA; Start 01/27/17 at 02:00 Insulin Aspart (Novolog Insulin Pen) NOVOLOG *MODERATE* ALGORI... Q4 SC Last administered on 01/30/17 09:44; Admin Dose 2 UNIT; Start 01/26/17 at 17:00 Metoclopramide HCl (Reglan) 5 mg Q8H PRN IV VOMITTING; Start 01/26/17 at 15:30 Hydralazine HCl (Apresoline) 25 mg TID PRN GTB ELEVATED SYSTOLIC BP Last administered on 01/30/17 00:28; Admin Dose 25 MG; Start 01/27/17 at 07:00 Insulin Glargine (Lantus) 7 unit BID@08,20 SC Last administered on 01/30/17 09 :06; Admin Dose 7 UNIT; Start 01/28/17 at 08:00 Fulvestrant (Faslodex) 500 mg Q28D IM Last administered on 01/29/17 21:16; Admin Dose 500 MG; Start 01/29/17 at 21:00 Amlodipine Besylate (Norvasc) 10 mg DAILY GTB Last administered on 01/30/17 09 :09; Admin Dose 10 MG; Start 01/30/17 at 09:00 KELSY MOORE MD Jan 30, 2017 11:33
[2017-01-30 14:29] LABS: HEMATOCRIT 26.2 % (37.0-47.0); HEMOGLOBIN 8.1 g/dl (12.0-16.0)
--- NOTE | 2017-01-30 14:48 | CONS ---
Date/Time of Note Date/Time of Note DATE: 01/30/17 TIME: 14:48 Assessment/Plan Assessment/Plan Chief Complaint/Hosp Course History of breast cancer with lung metastasis. The patient is on medical management. on Faslodex as outpt ANOTHER DOSE IS given Anemia. Monitor hemoglobin and hematocrit levels. 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 Congestive heart failure exacerbation. Hypothyroidism. Diabetes. Continue current insulin regimen. Pulmonary hypertension. Depression. Problems: Consultation Date/Type/Reason Admit Date/Time Jan 05, 2017 at 00:15 Initial Consult Date 01/05/17 [facility]ation: [facility] Referring Provider: SUSAN SIMENTAL DO 24 HR Interval Summary Free Text/Dictation all noted Exam/Review of Systems Vital Signs Vitals Vital Signs Date Time Temp Pulse Resp B/P Pulse Ox O2 Delivery O2 Flow Rate FiO2 01/30/17 13:13 86 14 100 30 01/30/17 11:00 151/62 Mechanical Ventilator 01/30/17 08:00 98.6 Intake and Output 01/29/17 01/29/17 01/30/17 14:59 22:59 06:59 Intake Total 580 ml 350 ml 350 ml Output Total 2300 ml 10 ml 10 ml Balance -1720 ml 340 ml 340 ml Exam HEENT: Head is normocephalic. NECK: Supple. HEART: Regular rate. LUNGS: Show diminished breath sounds base. Positive rhonchi. ABDOMEN: Soft, nontender to palpation. No rebound or guarding. EXTREMITIES: Negative for clubbing, cyanosis. No edema. DERMATOLOGIC: Clean. No rashes. MUSCULOSKELETAL: No joint effusion. NEUROLOGIC: No change in exam. Results Result Diagram: 01/30/17 1420 01/30/17 0423 Results 24 hrs Laboratory Tests Test 01/29/17 16:56 01/29/17 20:13 01/29/17 20:51 01/30/17 01:05 Bedside Glucose 211 142 142 204 Test 01/30/17 04:23 01/30/17 04:48 01/30/17 08:48 01/30/17 14:20 White Blood Count 9.1 Red Blood Count 2.58 L Hemoglobin 7.6 L 8.1 L Hematocrit 24.8 L 26.2 L Mean Corpuscular Volume 96.1 Mean Corpuscular Hemoglobin 29.5 Mean Corpuscular Hemoglobin Concent 30.6 L Red Cell Distribution Width 15.2 H Platelet Count 220 Mean Platelet Volume 9.8 Neutrophils % 84.4 H Lymphocytes % 5.4 L Monocytes % 7.0 Eosinophils % 2.3 Basophils % 0.1 Nucleated Red Blood Cells % 0.0 Neutrophils # 7.7 H Lymphocytes # 0.5 L Monocytes # 0.6 Eosinophils # 0.2 Basophils # 0.0 Nucleated Red Blood Cells # 0.0 Sodium Level 136 Potassium Level 3.5 Chloride Level 101 Carbon Dioxide Level 30 Anion Gap 9 Blood Urea Nitrogen 28 H Creatinine 2.35 H Glucose Level 177 Calcium Level 9.1 Phosphorus Level 3.2 Magnesium Level 2.2 Bedside Glucose 182 175 Medications Medications Current Medications Naloxone HCl (Narcan) 0.4 mg Q4 PRN IV SEDATION; Start 01/05/17 at 01:30 Bisacodyl (Dulcolax Supp) 10 mg DAILY [place] Last administered on 01/26/17 09:57; Admin Dose 10 MG; Start 01/06/17 at 09:00; Status Future Hold Budesonide (Pulmicort (Neb)) 0.25 mg BID NEB Last administered on 01/30/17 07: 49; Admin Dose 0.25 MG; Start 01/05/17 at 10:30 Fluticasone Propionate (Flonase 0.05% Nasal) 1 spray DAILY NASAL Last administered on 01/30/17 09:11; Admin Dose 1 SPRAY; Start 01/05/17 at 11:00 Magnesium Hydroxide (Milk Of Mag) 30 ml BID PRN PO CONSTIPATION Last administered on 01/16/17 09:09; Admin Dose 30 ML; Start 01/05/17 at 10:30 Nitroglycerin (Nitroglycerin 2% Oint) 0.5 inch Q6 PRN TD CHEST PAIN; Start 03/13 at 10:30 Ondansetron HCl (Zofran Inj) 4 mg Q6H PRN IV NAUSEA Last administered on 14:23; Admin Dose 4 MG; Start 01/05/17 at 10:30 Prednisone (Prednisone) 5 mg DAILY PO Last administered on 01/30/17 09:11; Admin Dose 5 MG; Start 01/05/17 at 12:00 Prednisone (Prednisone) 3 mg DAILY PO Last administered on 01/30/17 09:11; Admin Dose 3 MG; Start 01/05/17 at 12:00 Miscellaneous Information 1 ea NOTE XX ; Start 01/05/17 at 11:00 Glucose (Glutose) 15 gm Q15M PRN PO DECREASED GLUCOSE; Start 01/05/17 at 11:00 Glucose (Glutose) 22.5 gm Q15M PRN PO DECREASED GLUCOSE; Start 01/05/17 at 11: 00 Dextrose (D50w Syringe) 25 ml Q15M PRN IV DECREASED GLUCOSE Last administered on 01/23/17 03:45; Admin Dose 25 ML; Start 01/05/17 at 11:00 Dextrose (D50w Syringe) 50 ml Q15M PRN IV DECREASED GLUCOSE Last administered on 01/08/17 21:33; Admin Dose 50 ML; Start 01/05/17 at 11:00 Glucagon (Glucagen) 1 mg Q15M PRN IM DECREASED GLUCOSE Last administered on 21:08; Admin Dose 1 MG; Start 01/05/17 at 11:00 Glucose 15 gm 15 gm Q15M PRN BUCCAL DECREASED GLUCOSE Last administered on 01/23 21:36; Admin Dose 15 GM; Start 01/05/17 at 11:00 Fentanyl 100 ml @ 2.5 mls/hr TITRATE IV Last administered on 01/07/17 02:25; Admin Dose 7.5 MLS/HR; Start 01/06/17 at 09:30 Norepinephrine/ Dextrose (Levophed/D5W) 500 ml @ 0 mls/hr TITRATE IV ; Start 04/12 at 13:30 Bumetanide 1 mg 1 mg BID IV Last administered on 01/13/17 21:06; Admin Dose 1 MG; Start 01/08/17 at 09:00; Status Future Hold Propofol (Diprivan) 100 ml @ 2.19 mls/hr Q12H IV Last administered on 07:04; Admin Dose 15.28 MLS/HR; Start 01/08/17 at 16:00 Acetaminophen (Tylenol Tab) 650 mg Q6H PRN NGT PAIN AND OR ELEVATED TEMP Last administered on 01/28/17 20:48; Admin Dose 650 MG; Start 01/17/17 at 22:30 Apixaban (Eliquis) 2.5 mg BID NGT Last administered on 01/30/17 09:09; Admin Dose 2.5 MG; Start 01/17/17 at 21:00; Status Future hold Ascorbic Acid (Vitamin C) 500 mg BID NGT Last administered on 01/30/17 09:10; Admin Dose 500 MG; Start 01/17/17 at 21:00 Levothyroxine Sodium (Synthroid) 75 mcg DAILY@06 NGT Last administered on 05:27; Admin Dose 75 MCG; Start 01/18/17 at 06:00 Loratadine (Claritin) 10 mg DAILY NGT Last administered on 01/30/17 09:09; Admin Dose 10 MG; Start 01/18/17 at 09:00 Metoprolol Tartrate (Lopressor) 25 mg BID NGT Last administered on 01/30/17 09 :10; Admin Dose 25 MG; Start 01/17/17 at 21:00 Mirtazapine (Remeron) 15 mg HS NGT Last administered on 01/29/17 20:43; Admin Dose 15 MG; Start 01/17/17 at 21:00 Oxcarbazepine (Trileptal) 600 mg BID NGT Last administered on 01/30/17 09:09; Admin Dose 600 MG; Start 01/17/17 at 21:00 Senna (Senokot) 1 tab HS NGT Last administered on 01/25/17 20:06; Admin Dose 1 TAB; Start 01/17/17 at 21:00; Status Future Hold Sertraline HCl (Zoloft) 75 mg DAILY NGT Last administered on 01/30/17 09:10; Admin Dose 75 MG; Start 01/18/17 at 09:00 Sildenafil Citrate (Revatio) 20 mg TID NGT Last administered on 01/30/17 09:46 ; Admin Dose 20 MG; Start 01/17/17 at 21:00 Docusate Sodium (Colace Liquid Cup) 100 mg BID NGT Last administered on 09:55; Admin Dose 100 MG; Start 01/17/17 at 21:00; Status Future Hold Famotidine (Pepcid) 20 mg DAILY NGT Last administered on 01/30/17 09:10; Admin Dose 20 MG; Start 01/20/17 at 09:00 Lorazepam (Ativan) 1 mg Q6H PRN IV anxiety Last administered on 01/29/17 14:52 ; Admin Dose 1 MG; Start 01/22/17 at 09:00 Tacrolimus (Prograf) 2 mg QPM NGT Last administered on 01/29/17 20:43; Admin Dose 2 MG; Start 01/24/17 at 21:00 Diagnostic Test (Pha) (Accu-Chek) 1 ea 02 XX Last administered on 01/30/17 02: 00; Admin Dose 1 EA; Start 01/26/17 at 02:00 Diagnostic Test (Pha) (Accu-Chek) 1 ea 02 XX Last administered on 01/30/17 02: 00; Admin Dose 1 EA; Start 01/27/17 at 02:00 Insulin Aspart (Novolog Insulin Pen) NOVOLOG *MODERATE* ALGORI... Q4 SC Last administered on 01/30/17 09:44; Admin Dose 2 UNIT; Start 01/26/17 at 17:00 Metoclopramide HCl (Reglan) 5 mg Q8H PRN IV VOMITTING; Start 01/26/17 at 15:30 Hydralazine HCl (Apresoline) 25 mg TID PRN GTB ELEVATED SYSTOLIC BP Last administered on 01/30/17 00:28; Admin Dose 25 MG; Start 01/27/17 at 07:00 Insulin Glargine (Lantus) 7 unit BID@08,20 [place] Last administered on 01/30/17 09 :06; Admin Dose 7 UNIT; Start 01/28/17 at 08:00 Fulvestrant (Faslodex) 500 mg Q28D IM Last administered on 01/29/17 21:16; Admin Dose 500 MG; Start 01/29/17 at 21:00 Amlodipine Besylate (Norvasc) 10 mg DAILY GTB Last administered on 01/30/17 09 :09; Admin Dose 10 MG; Start 01/30/17 at 09:00 SHANICE DAVENPORT MD Jan 30, 2017 14:48
--- NOTE | 2017-01-30 17:12 | PN ---
DATE: 01/30/2017 INFECTIOUS DISEASE PROGRESS NOTE SUBJECTIVE: No events overnight. No fevers. Patient is awake, looks comfortable, denies pain. Sh e is off antibiotics. VITAL SIGNS: Temperature 98.6, pulse 83, respirations 18, blood pressure 126/46, saturation 100 on 30 FIO2. WBC 9.1, H and H 7.6 and 24.8, platelets 20, BUN 28, creatinine 2.35. INDWELLINGS: Trach, PEG, [place], right IJ Bandar. PHYSICAL EXAMINATION: GENERAL: This is a fragile, chronically ill-appearing, elderly woman who is awake, in no distress. HEENT: Head atraumatic, normocephalic. Sclerae anicteric. Buccal mucosa dry. NECK: Supple. Tracheostomy present. CHEST: Rise symmetrical. Breath sounds diminished to bases. HEART: S1, S2. ABDOMEN: Soft, bowel sounds present. EXTREMITIES: Without cyanosis. Bilateral trace edema. ASSESSMENT: 1. Status post sepsis, urinary tract infection, pneumonia. 2. Acute respiratory failure. 3. Acute on chronic kidney disease, now on hemodialysis. 4. History of kidney transplant, remains on immunosuppressive therapy. 5. Dysphagia. 6. Anemia. PLAN: The patient remains stable. Continue present care. Observe off antibiotics. Dictated By: [employer] for ADELA BURDEN/AFSHAN Conf#: [id number] DID#: [id number]
--- NOTE | 2017-01-30 18:06 | CONS ---
Date/Time of Note Date/Time of Note DATE: 01/30/17 TIME: 18:05 Consult Date/Type/Reason Admit Date/Time Jan 05, 2017 at 00:15 Initial Consult Date 01/05/17 Type of Consultation: cardiology Ordering Provider: SUSAN SIMENTAL DO Subjective CARDIOLOGY FOLLOW UP NOTE: D/W Staff and rhythm was reviewed. pt has remained in Afib. HR has been stable overall but intermittently elevated. pt still remains on vent. s/p trach. NO reports of any chest pain or pressure S/P PEG 01/19/17 S/P Trach 01/27/17 pt is nonverbal on vent. OBJECTIVE: General: s/p trach on vent. HEENT: NC/AT. pupils are equal. round. NECK: s/p trach. no stridor. CV:irregularly irregular. systolic murmur; no gallop or rubs. PULM: no wheezing, + mild rhonchi. GI: SOFT, NT, ND, no rebound or guarding S/P PEG Extremity: trace B/L LE edema. no clubbing. neuro: awake. . Psych: unable to assess rectal: deferred : normal ECHO 12/16/16: Personally reviewed 1. Normal left ventricular systolic function. Normal left ventricular cavity size. Moderate concentric left ventricular hypertrophy. Ejection fraction is visually estimated at 65 %. Abnormal Diastolic Function. 2. There is moderate enlargement of left atrium. 3. Mild mitral leaflet calcification. Mild mitral annular calcification. Trace mitral regurgitation. 4. Aortic sclerosis without stenosis. Trace aortic valve regurgitation. 5. Normal appearance of the tricuspid valve. Estimated peak PA systolic pressure 38 mmHg. There is mild tricuspid regurgitation. Objective Vital Signs Date Time Temp Pulse Resp B/P Pulse Ox O2 Delivery O2 Flow Rate FiO2 01/30/17 16:53 93 14 100 30 01/30/17 16:00 99.1 135/73 Mechanical Ventilator Intake and Output 01/29/17 01/29/17 01/30/17 15:00 23:00 07:00 Intake Total 620 ml 350 ml 350 ml Output Total 2300 ml 10 ml 10 ml Balance -1680 ml 340 ml 340 ml Results/Medications Result Diagram: 01/30/17 1420 01/30/17 0423 Results 24 hrs Laboratory Tests Test 01/29/17 20:13 01/29/17 20:51 01/30/17 01:05 01/30/17 04:23 Bedside Glucose 142 142 204 White Blood Count 9.1 Red Blood Count 2.58 L Hemoglobin 7.6 L Hematocrit 24.8 L Mean Corpuscular Volume 96.1 Mean Corpuscular Hemoglobin 29.5 Mean Corpuscular Hemoglobin Concent 30.6 L Red Cell Distribution Width 15.2 H Platelet Count 220 Mean Platelet Volume 9.8 Neutrophils % 84.4 H Lymphocytes % 5.4 L Monocytes % 7.0 Eosinophils % 2.3 Basophils % 0.1 Nucleated Red Blood Cells % 0.0 Neutrophils # 7.7 H Lymphocytes # 0.5 L Monocytes # 0.6 Eosinophils # 0.2 Basophils # 0.0 Nucleated Red Blood Cells # 0.0 Sodium Level 136 Potassium Level 3.5 Chloride Level 101 Carbon Dioxide Level 30 Anion Gap 9 Blood Urea Nitrogen 28 H Creatinine 2.35 H Glucose Level 177 Calcium Level 9.1 Phosphorus Level 3.2 Magnesium Level 2.2 Test 01/30/17 04:48 01/30/17 08:48 01/30/17 14:20 01/30/17 15:38 Bedside Glucose 182 175 268 H Hemoglobin 8.1 L Hematocrit 26.2 L Medications Current Medications Naloxone HCl (Narcan) 0.4 mg Q4 PRN IV SEDATION; Start 01/05/17 at 01:30 Bisacodyl (Dulcolax Supp) 10 mg DAILY [place] Last administered on 01/26/17 09:57; Admin Dose 10 MG; Start 01/06/17 at 09:00; Status Future Hold Budesonide (Pulmicort (Neb)) 0.25 mg BID NEB Last administered on 01/30/17 07: 49; Admin Dose 0.25 MG; Start 01/05/17 at 10:30 Fluticasone Propionate (Flonase 0.05% Nasal) 1 spray DAILY NASAL Last administered on 01/30/17 09:11; Admin Dose 1 SPRAY; Start 01/05/17 at 11:00 Magnesium Hydroxide (Milk Of Mag) 30 ml BID PRN PO CONSTIPATION Last administered on 01/16/17 09:09; Admin Dose 30 ML; Start 01/05/17 at 10:30 Nitroglycerin (Nitroglycerin 2% Oint) 0.5 inch Q6 PRN TD CHEST PAIN; Start 03/13 at 10:30 Ondansetron HCl (Zofran Inj) 4 mg Q6H PRN IV NAUSEA Last administered on 14:23; Admin Dose 4 MG; Start 01/05/17 at 10:30 Prednisone (Prednisone) 5 mg DAILY PO Last administered on 01/30/17 09:11; Admin Dose 5 MG; Start 01/05/17 at 12:00 Prednisone (Prednisone) 3 mg DAILY PO Last administered on 01/30/17 09:11; Admin Dose 3 MG; Start 01/05/17 at 12:00 Miscellaneous Information 1 ea NOTE XX ; Start 01/05/17 at 11:00 Glucose (Glutose) 15 gm Q15M PRN PO DECREASED GLUCOSE; Start 01/05/17 at 11:00 Glucose (Glutose) 22.5 gm Q15M PRN PO DECREASED GLUCOSE; Start 01/05/17 at 11: 00 Dextrose (D50w Syringe) 25 ml Q15M PRN IV DECREASED GLUCOSE Last administered on 01/23/17 03:45; Admin Dose 25 ML; Start 01/05/17 at 11:00 Dextrose (D50w Syringe) 50 ml Q15M PRN IV DECREASED GLUCOSE Last administered on 01/08/17 21:33; Admin Dose 50 ML; Start 01/05/17 at 11:00 Glucagon (Glucagen) 1 mg Q15M PRN IM DECREASED GLUCOSE Last administered on 21:08; Admin Dose 1 MG; Start 01/05/17 at 11:00 Glucose (Glutose) 15 gm Q15M PRN BUCCAL DECREASED GLUCOSE Last administered on 01/23/17 21:36; Admin Dose 15 GM; Start 01/05/17 at 11:00 Bumetanide (Bumex) 1 mg BID IV Last administered on 01/13/17 21:06; Admin Dose 1 MG; Start 01/08/17 at 09:00; Status Future Hold Acetaminophen (Tylenol Tab) 650 mg Q6H PRN NGT PAIN AND OR ELEVATED TEMP Last administered on 01/28/17 20:48; Admin Dose 650 MG; Start 01/17/17 at 22:30 Apixaban (Eliquis) 2.5 mg BID NGT Last administered on 01/30/17 09:09; Admin Dose 2.5 MG; Start 01/17/17 at 21:00; Status Future hold Ascorbic Acid (Vitamin C) 500 mg BID NGT Last administered on 01/30/17 09:10; Admin Dose 500 MG; Start 01/17/17 at 21:00 Levothyroxine Sodium (Synthroid) 75 mcg DAILY@06 NGT Last administered on 05:27; Admin Dose 75 MCG; Start 01/18/17 at 06:00 Loratadine (Claritin) 10 mg DAILY NGT Last administered on 01/30/17 09:09; Admin Dose 10 MG; Start 01/18/17 at 09:00 Metoprolol Tartrate (Lopressor) 25 mg BID NGT Last administered on 01/30/17 09 :10; Admin Dose 25 MG; Start 01/17/17 at 21:00 Mirtazapine (Remeron) 15 mg HS NGT Last administered on 01/29/17 20:43; Admin Dose 15 MG; Start 01/17/17 at 21:00 Oxcarbazepine (Trileptal) 600 mg BID NGT Last administered on 01/30/17 09:09; Admin Dose 600 MG; Start 01/17/17 at 21:00 Senna (Senokot) 1 tab HS NGT Last administered on 01/25/17 20:06; Admin Dose 1 TAB; Start 01/17/17 at 21:00; Status Future Hold Sertraline HCl (Zoloft) 75 mg DAILY NGT Last administered on 01/30/17 09:10; Admin Dose 75 MG; Start 01/18/17 at 09:00 Sildenafil Citrate (Revatio) 20 mg TID NGT Last administered on 01/30/17 15:45 ; Admin Dose 20 MG; Start 01/17/17 at 21:00 Docusate Sodium (Colace Liquid Cup) 100 mg BID NGT Last administered on 09:55; Admin Dose 100 MG; Start 01/17/17 at 21:00; Status Future Hold Famotidine (Pepcid) 20 mg DAILY NGT Last administered on 01/30/17 09:10; Admin Dose 20 MG; Start 01/20/17 at 09:00 Lorazepam (Ativan) 1 mg Q6H PRN IV anxiety Last administered on 01/29/17 14:52 ; Admin Dose 1 MG; Start 01/22/17 at 09:00 Tacrolimus (Prograf) 2 mg QPM NGT Last administered on 01/29/17 20:43; Admin Dose 2 MG; Start 01/24/17 at 21:00 Diagnostic Test (Pha) (Accu-Chek) 1 ea 02 XX Last administered on 01/30/17 02: 00; Admin Dose 1 EA; Start 01/26/17 at 02:00 Diagnostic Test (Pha) (Accu-Chek) 1 ea 02 XX Last administered on 01/30/17 02: 00; Admin Dose 1 EA; Start 01/27/17 at 02:00 Insulin Aspart (Novolog Insulin Pen) NOVOLOG *MODERATE* ALGORI... Q4 SC Last administered on 01/30/17 15:47; Admin Dose 8 UNIT; Start 01/26/17 at 17:00 Metoclopramide HCl (Reglan) 5 mg Q8H PRN IV VOMITTING; Start 01/26/17 at 15:30 Hydralazine HCl (Apresoline) 25 mg TID PRN GTB ELEVATED SYSTOLIC BP Last administered on 01/30/17 00:28; Admin Dose 25 MG; Start 01/27/17 at 07:00 Insulin Glargine (Lantus) 7 unit BID@08,20 SC Last administered on 01/30/17 09 :06; Admin Dose 7 UNIT; Start 01/28/17 at 08:00 Fulvestrant (Faslodex) 500 mg Q28D IM Last administered on 01/29/17 21:16; Admin Dose 500 MG; Start 01/29/17 at 21:00 Amlodipine Besylate (Norvasc) 10 mg DAILY GTB Last administered on 01/30/17 09 :09; Admin Dose 10 MG; Start 01/30/17 at 09:00 Assessment/Plan Chief Complaint/Hosp Course Assessment: 1. s/p cardiopulmonary arrest: Most likely due to pulmonary arrest 2. P afib: now remains in persistent Afib. 3. History of renal failure status post renal transplant: now with KATI on CKD: currently requiring HD. 4. Acute on chronic hypoxemic hypercapnic respiratory failure status post reintubation: currently on the vent: AWAITING TRACH. 5. Shock: resolved now. 6. ANEMIA 7. breast cancer 8. HTN: 9. anxiety 10. DM 11. Hypothyroidism: on synthroid. 12. pleural effusion : s/p thoracentesis 13. Dysphagia: s/p PEG Recommendations: vent support for now anti- rejection medications to be adjusted as per renal team. HD as per renal. cont DM control thyroid supplement inc betablocker and dc norvasc. correct lytes prn with HD. cont tele monitoring transfusion prn CONT eliquis as long as no active bleeding . Thank you for this referral I will continue to follow along with you. AUGUSTINA MALDONADO MD MERGED WITH [facility] Problems: AUGUSTINA MALDONADO MD Jan 30, 2017 18:06
[2017-01-30] MEDS: MIRTAZAPINE 15 MG TAB NGT SCH (22:54)
[2017-01-30] MEDS: METOPROLOL 50 MG TAB NGT SCH (22:55)
[2017-01-31] VITALS (25 sets, daily range): BP systolic 128–195; BP diastolic 69–89; PULSE 87–115; RESP 12–20
[2017-01-31] MEDS: ONDANSETRON 4 MG INJ IV PRN (00:01)
[2017-01-31] MEDS: ALBUTEROL 18 GM INHALER INH SCH ×4 (01:53→20:25)
[2017-01-31] MEDS: IPRATROPIUM (HFA) 12.9 GM INHALER INH SCH ×4 (01:53→20:25)
[2017-01-31] MEDS: ACCU-CHEK XX SCH ×2 (02:00)
[2017-01-31] MEDS: LEVOTHYROXINE 75 MCG TAB NGT SCH (06:54)
[2017-01-31] MEDS: INSULIN ASPART [NOVOLOG] 3 ML PEN SC SCH ×5 (06:54→21:54)
[2017-01-31 07:04] LABS: BASOPHILS % 0.1 % (0.0-2.0); EOSINOPHILS # 0.4 10^3/ul (0.0-0.5); EOSINOPHILS % 3.8 % (0.0-7.0); HEMATOCRIT 26.3 % (37.0-47.0); HEMOGLOBIN 7.9 g/dl (12.0-16.0); LYMPHOCYTES # 0.6 10^3/ul (0.8-2.9); LYMPHOCYTES % 5.7 % (15.0-51.0); MEAN CORPUSCULAR HEMOGLOBIN 28.9 pg (29.0-33.0); MEAN CORPUSCULAR VOLUME 96.3 fl (82.0-101.0); MEAN PLATELET VOLUME 9.8 fl (7.4-10.4); MONOCYTE # 0.6 10^3/ul (0.3-0.9); NEUTROPHILS % 83.7 % (39.0-77.0); PLATELET COUNT 262 10^3/UL (140-415); RED BLOOD COUNT 2.73 10^6/ul (4.20-5.40); RED CELL DISTRIBUTION WIDTH 15.1 % (11.5-14.5); WHITE BLOOD COUNT 10.7 10^3/ul (4.8-10.8)
[2017-01-31 07:12] LABS: CALCIUM 9.1 mg/dl (8.4-10.2); CREATININE 2.04 mg/dl (0.44-1.00); MAGNESIUM 2.1 mg/dl (1.7-2.5); PHOSPHORUS 2.8 mg/dl (2.5-4.9); POTASSIUM 3.4 mmol/L (3.5-5.1)
[2017-01-31] MEDS: INSULIN GLARGINE [LANtus] 3 ML PEN SC SCH ×2 (08:00→21:49)
[2017-01-31] MEDS: ASCORBIC ACID 500 MG TAB NGT SCH ×2 (09:20→21:40)
[2017-01-31] MEDS: predniSONE 1 MG TAB PO SCH (09:20)
[2017-01-31] MEDS: BALSAM PERU/CASTOR OIL 60 GM TUBE TOP SCH (09:21)
[2017-01-31] MEDS: OXCARBAZEPINE 300 MG TAB NGT SCH ×2 (09:21→21:41)
[2017-01-31] MEDS: FLUTICASONE 0.05% 16 GM NAS SPRAY NASAL SCH (09:21)
[2017-01-31] MEDS: TACROLIMUS 1 MG CAP NGT SCH ×2 (09:21→21:41)
[2017-01-31] MEDS: FAMOTIDINE 20 MG TAB NGT SCH (09:22)
[2017-01-31] MEDS: predniSONE 5 MG TAB PO SCH (09:22)
[2017-01-31] MEDS: SERTRALINE 50 MG TAB NGT SCH (09:22)
[2017-01-31] MEDS: LORATADINE 10 MG TAB NGT SCH (09:22)
[2017-01-31] MEDS: METOPROLOL 50 MG TAB NGT SCH ×2 (09:22→21:42)
[2017-01-31] MEDS: APIXABAN 5 MG TABLET NGT SCH ×2 (09:22→21:42)
[2017-01-31] MEDS: BUDESONIDE (NEB) 0.25 MG/2 ML AMP NEB SCH ×2 (09:26→20:25)
[2017-01-31] MEDS: SILDENAFIL 20 MG TAB NGT SCH ×3 (09:33→21:47)
--- NOTE | 2017-01-31 10:21 | PN ---
Date/Time of Note Date/Time of Note DATE: 01/31/17 TIME: 10:18 Assessment/Plan VTE Prophylaxis VTE Prophylaxis Intervention: other Lines/Catheters [facility] Saline Lock Urinary Cath still in place: Yes Reason Cath still needed: urinary retention Assessment/Plan Chief Complaint/Hosp Course SUBJECTIVE: The patient is stable. No events overnight. No fevers, chills, nausea, vomiting. Patient had hemodialysis 2 days ago, tolerated well with 3 liters removed. No other acute events noted. No hemoptysis, hematemesis or hematochezia. no reports of melena, hematuria, new rash, dyspnea, fever, chill or diaphoresis vent settings were reviewed d/w Dr Rosenthal remains anuric OBJECTIVE: HEENT: Head is normocephalic. NECK: Supple. HEART: Regular rate. LUNGS: Show diminished breath sounds at base. ABDOMEN: Soft, nontender to palpation. No rebound or guarding. EXTREMITIES: Negative for clubbing, cyanosis. Positive edema. DERMATOLOGIC: No rashes. MUSCULOSKELETAL: No joint effusions. NEUROLOGIC: No change in exam. MEDICATIONS: Reviewed. OBJECTIVE DATA: HEENT: Head is normocephalic. Pupils are reactive to light. NECK: Supple. HEART: Regular rate. LUNGS: Showed diminished breath sounds at the base. ABDOMEN: Soft. Nontender to palpation. No rebound or guarding. EXTREMITIES: Negative for clubbing, cyanosis. No edema. DERMATOLOGIC: Clean. No rashes. MUSCULOSKELETAL: No joint effusion. NEUROLOGIC: No focal deficits. MEDICATIONS, labs, previous orders, nurses' care plans: Reviewed. 1. 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 Etiology of acute kidney injury is secondary to acute tubular necrosis. The patient is currently dialysis dependent, no signs of recovery. Continue intermittent dialysis. 2. Hyponatremia. will adjust dialysate 3. Hypokalemia, replete with potassium chloride. 4. Paroxysmal atrial fibrillation, continue current medical management and follow up with cardiology. 5. Sepsis, status post shock secondary to pneumonia. The patient is completing antibiotic course. 6. Leukocytosis, likely due to stress and demargination. Will continue to monitor closely. Follow up with Infectious Disease. 7. Fungal urinary tract infection. The patient is status post antifungal therapy. 8. 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 The patient's current acute kidney injury as stated above. Continue current immunosuppressive regimen. Prograf levels within acceptable range. 9. Hypothyroidism. Continue Synthroid. 10. Anemia. Continue to monitor hemoglobin and hematocrit levels. 11. Diabetes. Continue Accu-Cheks and insulin sliding scale. 12. Pulmonary hypertension. Continue current medical management. 13. End-stage dependent respiratory failure, status post tracheostomy, vent settings have been reviewed. Continue to monitor. 14. Volume overload. Continue ultrafiltration with dialysis. 15. Dysphagia, status post PEG, continue tube feeding. 16. History of breast cancer. Follow up with hematology. The patient is on Faslodex. 17. Pleural effusion. The patient's cytology was negative. 18. History of breast cancer with lung metastasis. The patient is on medical management. on Faslodex as outpt Problems: Exam/Review of Systems Vital Signs Vitals Vital Signs Date Time Temp Pulse Resp B/P Pulse Ox O2 Delivery O2 Flow Rate FiO2 01/31/17 09:05 68 13 100 30 01/31/17 08:03 99.4 195/84 01/30/17 20:00 Mechanical Ventilator Intake and Output 01/30/17 01/30/17 01/31/17 15:00 23:00 07:00 Intake Total 1010 ml 230 ml 240 ml Output Total 3050 ml 30 ml 30 ml Balance -2040 ml 200 ml 210 ml Results Result Diagram: 01/31/17 0548 01/31/17 0548 Results 24 hrs Laboratory Tests Test 01/30/17 14:20 01/30/17 15:38 01/30/17 18:42 01/30/17 22:29 Hemoglobin 8.1 L Hematocrit 26.2 L Bedside Glucose 268 H 234 H 262 H Test 01/31/17 01:59 01/31/17 05:48 01/31/17 06:38 01/31/17 09:19 Bedside Glucose 191 212 201 White Blood Count 10.7 Red Blood Count 2.73 L Hemoglobin 7.9 L Hematocrit 26.3 L Mean Corpuscular Volume 96.3 Mean Corpuscular Hemoglobin 28.9 L Mean Corpuscular Hemoglobin Concent 30.0 L Red Cell Distribution Width 15.1 H Platelet Count 262 Mean Platelet Volume 9.8 Neutrophils % 83.7 H Lymphocytes % 5.7 L Monocytes % 6.0 Eosinophils % 3.8 Basophils % 0.1 Nucleated Red Blood Cells % 0.0 Neutrophils # 9.0 H Lymphocytes # 0.6 L Monocytes # 0.6 Eosinophils # 0.4 Basophils # 0.0 Nucleated Red Blood Cells # 0.0 Sodium Level 135 Potassium Level 3.4 L Chloride Level 99 Carbon Dioxide Level 32 H Anion Gap 7 L Blood Urea Nitrogen 23 H Creatinine 2.04 H Glucose Level 178 Calcium Level 9.1 Phosphorus Level 2.8 Magnesium Level 2.1 Medications Medications Current Medications Naloxone HCl (Narcan) 0.4 mg Q4 PRN IV SEDATION; Start 01/05/17 at 01:30 Bisacodyl (Dulcolax Supp) 10 mg DAILY [place] Last administered on 01/26/17 09:57; Admin Dose 10 MG; Start 01/06/17 at 09:00; Status Future Hold Budesonide (Pulmicort (Neb)) 0.25 mg BID NEB Last administered on 01/31/17 09: 26; Admin Dose 0.25 MG; Start 01/05/17 at 10:30 Fluticasone Propionate (Flonase 0.05% Nasal) 1 spray DAILY NASAL Last administered on 01/31/17 09:21; Admin Dose 1 SPRAY; Start 01/05/17 at 11:00 Magnesium Hydroxide (Milk Of Mag) 30 ml BID PRN PO CONSTIPATION Last administered on 01/16/17 09:09; Admin Dose 30 ML; Start 01/05/17 at 10:30 Nitroglycerin (Nitroglycerin 2% Oint) 0.5 inch Q6 PRN TD CHEST PAIN; Start 03/13 at 10:30 Ondansetron HCl (Zofran Inj) 4 mg Q6H PRN IV NAUSEA Last administered on 00:01; Admin Dose 4 MG; Start 01/05/17 at 10:30 Prednisone (Prednisone) 5 mg DAILY PO Last administered on 01/31/17 09:22; Admin Dose 5 MG; Start 01/05/17 at 12:00 Prednisone (Prednisone) 3 mg DAILY PO Last administered on 01/31/17 09:20; Admin Dose 3 MG; Start 01/05/17 at 12:00 Miscellaneous Information 1 ea NOTE XX ; Start 01/05/17 at 11:00 Glucose (Glutose) 15 gm Q15M PRN PO DECREASED GLUCOSE; Start 01/05/17 at 11:00 Glucose (Glutose) 22.5 gm Q15M PRN PO DECREASED GLUCOSE; Start 01/05/17 at 11: 00 Dextrose (D50w Syringe) 25 ml Q15M PRN IV DECREASED GLUCOSE Last administered on 01/23/17 03:45; Admin Dose 25 ML; Start 01/05/17 at 11:00 Dextrose (D50w Syringe) 50 ml Q15M PRN IV DECREASED GLUCOSE Last administered on 01/08/17 21:33; Admin Dose 50 ML; Start 01/05/17 at 11:00 Glucagon (Glucagen) 1 mg Q15M PRN IM DECREASED GLUCOSE Last administered on 21:08; Admin Dose 1 MG; Start 01/05/17 at 11:00 Glucose (Glutose) 15 gm Q15M PRN BUCCAL DECREASED GLUCOSE Last administered on 01/23/17 21:36; Admin Dose 15 GM; Start 01/05/17 at 11:00 Bumetanide (Bumex) 1 mg BID IV Last administered on 01/13/17 21:06; Admin Dose 1 MG; Start 01/08/17 at 09:00; Status Future Hold Acetaminophen (Tylenol Tab) 650 mg Q6H PRN NGT PAIN AND OR ELEVATED TEMP Last administered on 01/28/17 20:48; Admin Dose 650 MG; Start 01/17/17 at 22:30 Apixaban (Eliquis) 2.5 mg BID NGT Last administered on 01/31/17 09:22; Admin Dose 2.5 MG; Start 01/17/17 at 21:00; Status Future hold Ascorbic Acid (Vitamin C) 500 mg BID NGT Last administered on 01/31/17 09:20; Admin Dose 500 MG; Start 01/17/17 at 21:00 Levothyroxine Sodium (Synthroid) 75 mcg DAILY@06 NGT Last administered on 06:54; Admin Dose 75 MCG; Start 01/18/17 at 06:00 Loratadine (Claritin) 10 mg DAILY NGT Last administered on 01/31/17 09:22; Admin Dose 10 MG; Start 01/18/17 at 09:00 Mirtazapine (Remeron) 15 mg HS NGT Last administered on 01/30/17 22:54; Admin Dose 15 MG; Start 01/17/17 at 21:00 Oxcarbazepine (Trileptal) 600 mg BID NGT Last administered on 01/31/17 09:21; Admin Dose 600 MG; Start 01/17/17 at 21:00 Senna (Senokot) 1 tab HS NGT Last administered on 01/25/17 20:06; Admin Dose 1 TAB; Start 01/17/17 at 21:00; Status Future Hold Sertraline HCl (Zoloft) 75 mg DAILY NGT Last administered on 01/31/17 09:22; Admin Dose 75 MG; Start 01/18/17 at 09:00 Sildenafil Citrate (Revatio) 20 mg TID NGT Last administered on 01/31/17 09:33 ; Admin Dose 20 MG; Start 01/17/17 at 21:00 Docusate Sodium (Colace Liquid Cup) 100 mg BID NGT Last administered on 09:55; Admin Dose 100 MG; Start 01/17/17 at 21:00; Status Future Hold Famotidine (Pepcid) 20 mg DAILY NGT Last administered on 01/31/17 09:22; Admin Dose 20 MG; Start 01/20/17 at 09:00 Lorazepam (Ativan) 1 mg Q6H PRN IV anxiety Last administered on 01/29/17 14:52 ; Admin Dose 1 MG; Start 01/22/17 at 09:00 Tacrolimus (Prograf) 2 mg QPM NGT Last administered on 01/30/17 21:00; Admin Dose 2 MG; Start 01/24/17 at 21:00 Diagnostic Test (Pha) (Accu-Chek) 1 ea 02 XX Last administered on 01/31/17 02: 00; Admin Dose 1 EA; Start 01/26/17 at 02:00 Diagnostic Test (Pha) (Accu-Chek) 1 ea 02 XX Last administered on 01/31/17 02: 00; Admin Dose 1 EA; Start 01/27/17 at 02:00 Insulin Aspart (Novolog Insulin Pen) NOVOLOG *MODERATE* ALGORI... Q4 SC Last administered on 01/31/17 09:32; Admin Dose 4 UNIT; Start 01/26/17 at 17:00 Metoclopramide HCl (Reglan) 5 mg Q8H PRN IV VOMITTING; Start 01/26/17 at 15:30 Hydralazine HCl (Apresoline) 25 mg TID PRN GTB ELEVATED SYSTOLIC BP Last administered on 01/30/17 18:40; Admin Dose 25 MG; Start 01/27/17 at 07:00 Insulin Glargine (Lantus) 7 unit BID@08,20 SC Last administered on 01/31/17 08 :00; Admin Dose 7 UNIT; Start 01/28/17 at 08:00 Fulvestrant (Faslodex) 500 mg Q28D IM Last administered on 01/29/17 21:16; Admin Dose 500 MG; Start 01/29/17 at 21:00 Metoprolol Tartrate (Lopressor) 50 mg BID NGT Last administered on 01/31/17 09 :22; Admin Dose 50 MG; Start 01/30/17 at 21:00 MICHAEL GALICIA DO Jan 31, 2017 10:21
--- NOTE | 2017-01-31 13:04 | PN ---
Date/Time of Note Date/Time of Note DATE: 01/31/17 TIME: 13:04 Assessment/Plan Lines/Catheters IV Catheter Type (from Nrsg): Saline Lock [place] in Place (from Nrsg): Yes Assessment/Plan Chief Complaint/Hosp Course SP Tracheostomy Site clean will continue vent support Trach care Problems: Subjective 24 Hr Interval Summary Constitutional: improved Pain Control: mild Exam/Review of Systems Vital Signs Vitals Vital Signs Date Time Temp Pulse Resp B/P Pulse Ox O2 Delivery O2 Flow Rate FiO2 01/31/17 12:00 88 01/31/17 11:29 97.7 20 147/71 100 01/31/17 11:10 30 01/30/17 20:00 Mechanical Ventilator Intake and Output 01/30/17 01/30/17 01/31/17 15:00 23:00 07:00 Intake Total 1010 ml 230 ml 240 ml Output Total 3050 ml 30 ml 30 ml Balance -2040 ml 200 ml 210 ml Exam ENMT: mucosa pink and moist, nl external ears & nose, nl lips & teeth, nl nasal mucosa & septum Neck: non-tender, supple Respiratory: clear to auscultation, normal air movement Cardiovascular: nl pulses, regular rate and rhythm Results Result Diagram: 01/31/17 0548 01/31/17 0548 KELSY MOORE MD Jan 31, 2017 13:04
--- NOTE | 2017-01-31 14:09 | CONS ---
Date/Time of Note Date/Time of Note DATE: 01/31/17 TIME: 14:07 Assessment/Plan Assessment/Plan Chief Complaint/Hosp Course SUBJECTIVE: No events overnight. Tx to tele. No fevers. Patient is awake, looks comfortable. She is off antibiotics. Urine looks cloudy with sediment INDWELLINGS: Trach, PEG, [place], right IJ Bandar. PHYSICAL EXAMINATION: GENERAL: This is a fragile, chronically ill-appearing, elderly woman who is awake, in no distress. HEENT: Head atraumatic, normocephalic. Sclerae anicteric. Buccal mucosa dry. NECK: Supple. Tracheostomy present. CHEST: Rise symmetrical. Breath sounds diminished to bases. HEART: S1, S2. ABDOMEN: Soft, bowel sounds present. EXTREMITIES: Without cyanosis. Bilateral trace edema. ASSESSMENT: 1. Status post sepsis, urinary tract infection, pneumonia. 2. Acute respiratory failure. 3. Acute on chronic kidney disease, now on hemodialysis. 4. History of kidney transplant, remains on immunosuppressive therapy. 5. Dysphagia. 6. Anemia. 7. Cloudy urine with sediment PLAN: The patient remains stable. Will restart Vfend and repeat urine cx. DW staff Problems: Consultation Date/Type/Reason Admit Date/Time Jan 05, 2017 at 00:15 Initial Consult Date 01/05/17 Type of Consultation: id Referring Provider: SUSAN SIMENTAL DO Exam/Review of Systems Vital Signs Vitals Vital Signs Date Time Temp Pulse Resp B/P Pulse Ox O2 Delivery O2 Flow Rate FiO2 01/31/17 13:10 88 12 99 30 01/31/17 11:29 97.7 147/71 01/30/17 20:00 Mechanical Ventilator Intake and Output 01/30/17 01/30/17 01/31/17 15:00 23:00 07:00 Intake Total 1010 ml 230 ml 240 ml Output Total 3050 ml 30 ml 30 ml Balance -2040 ml 200 ml 210 ml Results Result Diagram: 01/31/17 0548 01/31/17 0548 Results 24 hrs Laboratory Tests Test 01/30/17 14:20 01/30/17 15:38 01/30/17 18:42 01/30/17 22:29 Hemoglobin 8.1 L Hematocrit 26.2 L Bedside Glucose 268 H 234 H 262 H Test 01/31/17 01:59 01/31/17 05:48 01/31/17 06:38 01/31/17 09:19 Bedside Glucose 191 212 201 White Blood Count 10.7 Red Blood Count 2.73 L Hemoglobin 7.9 L Hematocrit 26.3 L Mean Corpuscular Volume 96.3 Mean Corpuscular Hemoglobin 28.9 L Mean Corpuscular Hemoglobin Concent 30.0 L Red Cell Distribution Width 15.1 H Platelet Count 262 Mean Platelet Volume 9.8 Neutrophils % 83.7 H Lymphocytes % 5.7 L Monocytes % 6.0 Eosinophils % 3.8 Basophils % 0.1 Nucleated Red Blood Cells % 0.0 Neutrophils # 9.0 H Lymphocytes # 0.6 L Monocytes # 0.6 Eosinophils # 0.4 Basophils # 0.0 Nucleated Red Blood Cells # 0.0 Sodium Level 135 Potassium Level 3.4 L Chloride Level 99 Carbon Dioxide Level 32 H Anion Gap 7 L Blood Urea Nitrogen 23 H Creatinine 2.04 H Glucose Level 178 Calcium Level 9.1 Phosphorus Level 2.8 Magnesium Level 2.1 Test 01/31/17 13:44 Bedside Glucose 226 H Medications Medications Current Medications Naloxone HCl (Narcan) 0.4 mg Q4 PRN IV SEDATION; Start 01/05/17 at 01:30 Bisacodyl (Dulcolax Supp) 10 mg DAILY [place] Last administered on 01/26/17 09:57; Admin Dose 10 MG; Start 01/06/17 at 09:00; Status Future Hold Budesonide (Pulmicort (Neb)) 0.25 mg BID NEB Last administered on 01/31/17 09: 26; Admin Dose 0.25 MG; Start 01/05/17 at 10:30 Fluticasone Propionate (Flonase 0.05% Nasal) 1 spray DAILY NASAL Last administered on 01/31/17 09:21; Admin Dose 1 SPRAY; Start 01/05/17 at 11:00 Magnesium Hydroxide (Milk Of Mag) 30 ml BID PRN PO CONSTIPATION Last administered on 01/16/17 09:09; Admin Dose 30 ML; Start 01/05/17 at 10:30 Nitroglycerin (Nitroglycerin 2% Oint) 0.5 inch Q6 PRN TD CHEST PAIN; Start 03/13 at 10:30 Ondansetron HCl (Zofran Inj) 4 mg Q6H PRN IV NAUSEA Last administered on 00:01; Admin Dose 4 MG; Start 01/05/17 at 10:30 Prednisone (Prednisone) 5 mg DAILY PO Last administered on 01/31/17 09:22; Admin Dose 5 MG; Start 01/05/17 at 12:00 Prednisone (Prednisone) 3 mg DAILY PO Last administered on 01/31/17 09:20; Admin Dose 3 MG; Start 01/05/17 at 12:00 Miscellaneous Information 1 ea NOTE XX ; Start 01/05/17 at 11:00 Glucose (Glutose) 15 gm Q15M PRN PO DECREASED GLUCOSE; Start 01/05/17 at 11:00 Glucose (Glutose) 22.5 gm Q15M PRN PO DECREASED GLUCOSE; Start 01/05/17 at 11: 00 Dextrose (D50w Syringe) 25 ml Q15M PRN IV DECREASED GLUCOSE Last administered on 01/23/17 03:45; Admin Dose 25 ML; Start 01/05/17 at 11:00 Dextrose (D50w Syringe) 50 ml Q15M PRN IV DECREASED GLUCOSE Last administered on 01/08/17 21:33; Admin Dose 50 ML; Start 01/05/17 at 11:00 Glucagon (Glucagen) 1 mg Q15M PRN IM DECREASED GLUCOSE Last administered on 21:08; Admin Dose 1 MG; Start 01/05/17 at 11:00 Glucose (Glutose) 15 gm Q15M PRN BUCCAL DECREASED GLUCOSE Last administered on 01/23/17 21:36; Admin Dose 15 GM; Start 01/05/17 at 11:00 Bumetanide (Bumex) 1 mg BID IV Last administered on 01/13/17 21:06; Admin Dose 1 MG; Start 01/08/17 at 09:00; Status Future Hold Acetaminophen (Tylenol Tab) 650 mg Q6H PRN NGT PAIN AND OR ELEVATED TEMP Last administered on 01/28/17 20:48; Admin Dose 650 MG; Start 01/17/17 at 22:30 Apixaban (Eliquis) 2.5 mg BID NGT Last administered on 01/31/17 09:22; Admin Dose 2.5 MG; Start 01/17/17 at 21:00; Status Future hold Ascorbic Acid (Vitamin C) 500 mg BID NGT Last administered on 01/31/17 09:20; Admin Dose 500 MG; Start 01/17/17 at 21:00 Levothyroxine Sodium (Synthroid) 75 mcg DAILY@06 NGT Last administered on 06:54; Admin Dose 75 MCG; Start 01/18/17 at 06:00 Loratadine (Claritin) 10 mg DAILY NGT Last administered on 01/31/17 09:22; Admin Dose 10 MG; Start 01/18/17 at 09:00 Mirtazapine (Remeron) 15 mg HS NGT Last administered on 01/30/17 22:54; Admin Dose 15 MG; Start 01/17/17 at 21:00 Oxcarbazepine (Trileptal) 600 mg BID NGT Last administered on 01/31/17 09:21; Admin Dose 600 MG; Start 01/17/17 at 21:00 Senna (Senokot) 1 tab HS NGT Last administered on 01/25/17 20:06; Admin Dose 1 TAB; Start 01/17/17 at 21:00; Status Future Hold Sertraline HCl (Zoloft) 75 mg DAILY NGT Last administered on 01/31/17 09:22; Admin Dose 75 MG; Start 01/18/17 at 09:00 Sildenafil Citrate (Revatio) 20 mg TID NGT Last administered on 01/31/17 13:46 ; Admin Dose 20 MG; Start 01/17/17 at 21:00 Docusate Sodium (Colace Liquid Cup) 100 mg BID NGT Last administered on 09:55; Admin Dose 100 MG; Start 01/17/17 at 21:00; Status Future Hold Famotidine (Pepcid) 20 mg DAILY NGT Last administered on 01/31/17 09:22; Admin Dose 20 MG; Start 01/20/17 at 09:00 Lorazepam (Ativan) 1 mg Q6H PRN IV anxiety Last administered on 01/29/17 14:52 ; Admin Dose 1 MG; Start 01/22/17 at 09:00 Tacrolimus (Prograf) 2 mg QPM NGT Last administered on 01/30/17 21:00; Admin Dose 2 MG; Start 01/24/17 at 21:00 Diagnostic Test (Pha) (Accu-Chek) 1 ea 02 XX Last administered on 01/31/17 02: 00; Admin Dose 1 EA; Start 01/26/17 at 02:00 Diagnostic Test (Pha) (Accu-Chek) 1 ea 02 XX Last administered on 01/31/17 02: 00; Admin Dose 1 EA; Start 01/27/17 at 02:00 Insulin Aspart (Novolog Insulin Pen) NOVOLOG *MODERATE* ALGORI... Q4 SC Last administered on 01/31/17 13:51; Admin Dose 4 UNIT; Start 01/26/17 at 17:00 Metoclopramide HCl (Reglan) 5 mg Q8H PRN IV VOMITTING; Start 01/26/17 at 15:30 Hydralazine HCl (Apresoline) 25 mg TID PRN GTB ELEVATED SYSTOLIC BP Last administered on 01/31/17 13:46; Admin Dose 25 MG; Start 01/27/17 at 07:00 Insulin Glargine (Lantus) 7 unit BID@08,20 SC Last administered on 01/31/17 08 :00; Admin Dose 7 UNIT; Start 01/28/17 at 08:00 Fulvestrant (Faslodex) 500 mg Q28D IM Last administered on 01/29/17 21:16; Admin Dose 500 MG; Start 01/29/17 at 21:00 Metoprolol Tartrate (Lopressor) 50 mg BID NGT Last administered on 01/31/17 09 :22; Admin Dose 50 MG; Start 01/30/17 at 21:00 MAXIMUS ETIENNE NP Jan 31, 2017 14:09
--- NOTE | 2017-01-31 17:26 | CONS ---
Date/Time of Note Date/Time of Note DATE: 01/31/17 TIME: 17:24 Consult Date/Type/Reason Admit Date/Time Jan 05, 2017 at 00:15 Initial Consult Date 01/05/17 Type of Consultation: Pulm Ordering Provider: SUSAN SIMENTAL DO Subjective No events overnight. On vent. Objective Vital Signs Date Time Temp Pulse Resp B/P Pulse Ox O2 Delivery O2 Flow Rate FiO2 01/31/17 16:00 115 01/31/17 15:29 98.3 14 171/81 100 01/31/17 15:15 30 01/30/17 20:00 Mechanical Ventilator Intake and Output 01/30/17 01/30/17 01/31/17 15:00 23:00 07:00 Intake Total 1010 ml 230 ml 240 ml Output Total 3050 ml 30 ml 30 ml Balance -2040 ml 200 ml 210 ml Exam HEENT: Neck supple; no JVD; no LAD; trach site clean CVS: RRR, S1 and S2 CHEST: Clear ABD: Soft, NT, + BS EXT: No c/c/e Results/Medications Result Diagram: 01/31/17 0548 01/31/17 0548 Results 24 hrs Laboratory Tests Test 01/30/17 18:42 01/30/17 22:29 01/31/17 01:59 01/31/17 05:48 Bedside Glucose 234 H 262 H 191 White Blood Count 10.7 Red Blood Count 2.73 L Hemoglobin 7.9 L Hematocrit 26.3 L Mean Corpuscular Volume 96.3 Mean Corpuscular Hemoglobin 28.9 L Mean Corpuscular Hemoglobin Concent 30.0 L Red Cell Distribution Width 15.1 H Platelet Count 262 Mean Platelet Volume 9.8 Neutrophils % 83.7 H Lymphocytes % 5.7 L Monocytes % 6.0 Eosinophils % 3.8 Basophils % 0.1 Nucleated Red Blood Cells % 0.0 Neutrophils # 9.0 H Lymphocytes # 0.6 L Monocytes # 0.6 Eosinophils # 0.4 Basophils # 0.0 Nucleated Red Blood Cells # 0.0 Sodium Level 135 Potassium Level 3.4 L Chloride Level 99 Carbon Dioxide Level 32 H Anion Gap 7 L Blood Urea Nitrogen 23 H Creatinine 2.04 H Glucose Level 178 Calcium Level 9.1 Phosphorus Level 2.8 Magnesium Level 2.1 Test 01/31/17 06:38 01/31/17 09:19 01/31/17 13:44 Bedside Glucose 212 201 226 H Medications Current Medications Naloxone HCl (Narcan) 0.4 mg Q4 PRN IV SEDATION; Start 01/05/17 at 01:30 Bisacodyl (Dulcolax Supp) 10 mg DAILY [place] Last administered on 01/26/17 09:57; Admin Dose 10 MG; Start 01/06/17 at 09:00; Status Future Hold Budesonide (Pulmicort (Neb)) 0.25 mg BID NEB Last administered on 01/31/17 09: 26; Admin Dose 0.25 MG; Start 01/05/17 at 10:30 Fluticasone Propionate (Flonase 0.05% Nasal) 1 spray DAILY NASAL Last administered on 01/31/17 09:21; Admin Dose 1 SPRAY; Start 01/05/17 at 11:00 Magnesium Hydroxide (Milk Of Mag) 30 ml BID PRN PO CONSTIPATION Last administered on 01/16/17 09:09; Admin Dose 30 ML; Start 01/05/17 at 10:30 Nitroglycerin (Nitroglycerin 2% Oint) 0.5 inch Q6 PRN TD CHEST PAIN; Start 03/13 at 10:30 Ondansetron HCl (Zofran Inj) 4 mg Q6H PRN IV NAUSEA Last administered on 00:01; Admin Dose 4 MG; Start 01/05/17 at 10:30 Prednisone (Prednisone) 5 mg DAILY PO Last administered on 01/31/17 09:22; Admin Dose 5 MG; Start 01/05/17 at 12:00 Prednisone (Prednisone) 3 mg DAILY PO Last administered on 01/31/17 09:20; Admin Dose 3 MG; Start 01/05/17 at 12:00 Miscellaneous Information 1 ea NOTE XX ; Start 01/05/17 at 11:00 Glucose (Glutose) 15 gm Q15M PRN PO DECREASED GLUCOSE; Start 01/05/17 at 11:00 Glucose (Glutose) 22.5 gm Q15M PRN PO DECREASED GLUCOSE; Start 01/05/17 at 11: 00 Dextrose (D50w Syringe) 25 ml Q15M PRN IV DECREASED GLUCOSE Last administered on 01/23/17 03:45; Admin Dose 25 ML; Start 01/05/17 at 11:00 Dextrose (D50w Syringe) 50 ml Q15M PRN IV DECREASED GLUCOSE Last administered on 01/08/17 21:33; Admin Dose 50 ML; Start 01/05/17 at 11:00 Glucagon (Glucagen) 1 mg Q15M PRN IM DECREASED GLUCOSE Last administered on 21:08; Admin Dose 1 MG; Start 01/05/17 at 11:00 Glucose (Glutose) 15 gm Q15M PRN BUCCAL DECREASED GLUCOSE Last administered on 01/23/17 21:36; Admin Dose 15 GM; Start 01/05/17 at 11:00 Bumetanide (Bumex) 1 mg BID IV Last administered on 01/13/17 21:06; Admin Dose 1 MG; Start 01/08/17 at 09:00; Status Future Hold Acetaminophen (Tylenol Tab) 650 mg Q6H PRN NGT PAIN AND OR ELEVATED TEMP Last administered on 01/28/17 20:48; Admin Dose 650 MG; Start 01/17/17 at 22:30 Apixaban (Eliquis) 2.5 mg BID NGT Last administered on 01/31/17 09:22; Admin Dose 2.5 MG; Start 01/17/17 at 21:00; Status Future hold Ascorbic Acid (Vitamin C) 500 mg BID NGT Last administered on 01/31/17 09:20; Admin Dose 500 MG; Start 01/17/17 at 21:00 Levothyroxine Sodium (Synthroid) 75 mcg DAILY@06 NGT Last administered on 06:54; Admin Dose 75 MCG; Start 01/18/17 at 06:00 Loratadine (Claritin) 10 mg DAILY NGT Last administered on 01/31/17 09:22; Admin Dose 10 MG; Start 01/18/17 at 09:00 Mirtazapine (Remeron) 15 mg HS NGT Last administered on 01/30/17 22:54; Admin Dose 15 MG; Start 01/17/17 at 21:00 Oxcarbazepine (Trileptal) 600 mg BID NGT Last administered on 01/31/17 09:21; Admin Dose 600 MG; Start 01/17/17 at 21:00 Senna (Senokot) 1 tab HS NGT Last administered on 01/25/17 20:06; Admin Dose 1 TAB; Start 01/17/17 at 21:00; Status Future Hold Sertraline HCl (Zoloft) 75 mg DAILY NGT Last administered on 01/31/17 09:22; Admin Dose 75 MG; Start 01/18/17 at 09:00 Sildenafil Citrate (Revatio) 20 mg TID NGT Last administered on 01/31/17 13:46 ; Admin Dose 20 MG; Start 01/17/17 at 21:00 Docusate Sodium (Colace Liquid Cup) 100 mg BID NGT Last administered on 09:55; Admin Dose 100 MG; Start 01/17/17 at 21:00; Status Future Hold Famotidine (Pepcid) 20 mg DAILY NGT Last administered on 01/31/17 09:22; Admin Dose 20 MG; Start 01/20/17 at 09:00 Lorazepam (Ativan) 1 mg Q6H PRN IV anxiety Last administered on 01/29/17 14:52 ; Admin Dose 1 MG; Start 01/22/17 at 09:00 Tacrolimus (Prograf) 2 mg QPM NGT Last administered on 01/30/17 21:00; Admin Dose 2 MG; Start 01/24/17 at 21:00 Diagnostic Test (Pha) (Accu-Chek) 1 ea 02 XX Last administered on 01/31/17 02: 00; Admin Dose 1 EA; Start 01/26/17 at 02:00 Diagnostic Test (Pha) (Accu-Chek) 1 ea 02 XX Last administered on 01/31/17 02: 00; Admin Dose 1 EA; Start 01/27/17 at 02:00 Insulin Aspart (Novolog Insulin Pen) NOVOLOG *MODERATE* ALGORI... Q4 SC Last administered on 01/31/17 13:51; Admin Dose 4 UNIT; Start 01/26/17 at 17:00 Metoclopramide HCl (Reglan) 5 mg Q8H PRN IV VOMITTING; Start 01/26/17 at 15:30 Hydralazine HCl (Apresoline) 25 mg TID PRN GTB ELEVATED SYSTOLIC BP Last administered on 01/31/17 13:46; Admin Dose 25 MG; Start 01/27/17 at 07:00 Insulin Glargine (Lantus) 7 unit BID@08,20 SC Last administered on 01/31/17 08 :00; Admin Dose 7 UNIT; Start 01/28/17 at 08:00 Fulvestrant (Faslodex) 500 mg Q28D IM Last administered on 01/29/17 21:16; Admin Dose 500 MG; Start 01/29/17 at 21:00 Metoprolol Tartrate (Lopressor) 50 mg BID NGT Last administered on 01/31/17 09 :22; Admin Dose 50 MG; Start 01/30/17 at 21:00 Voriconazole (Vfend) 200 mg BID PO ; Start 01/31/17 at 21:00 Assessment/Plan Additional Assessment/Plan IMP: 1. Hypoxemic respiratory failure. Status post thoracentesis. Status post tracheostomy. 2. AMS 3. History of renal transplant. Renal insufficiency. Hyponatremia. 4. Dysphagia now with G-tube 5. Improved leukocytosis RECS: 1. Vent support 2. Am labs 3. BD's 4. TFs SRINIVAS NEGRO MD Jan 31, 2017 17:26
--- NOTE | 2017-01-31 18:38 | CONS ---
Date/Time of Note Date/Time of Note DATE: 01/31/17 TIME: 18:38 Consult Date/Type/Reason Admit Date/Time Jan 05, 2017 at 00:15 Initial Consult Date 01/05/17 Type of Consultation: cardiology Ordering Provider: SUSAN SIMENTAL DO Subjective CARDIOLOGY FOLLOW UP NOTE: D/W Staff and rhythm was reviewed. pt has remained in Afib. HR has been stable overall but intermittently elevated. BP has been elevated. pt still remains on vent. s/p trach. NO reports of any chest pain or pressure S/P PEG 01/19/17 S/P Trach 01/27/17 pt is nonverbal on vent. OBJECTIVE: General: s/p trach on vent. HEENT: NC/AT. pupils are equal. round. NECK: s/p trach. no stridor. CV:irregularly irregular. systolic murmur; no gallop or rubs. PULM: no wheezing, + mild rhonchi. GI: SOFT, NT, ND, no rebound or guarding S/P PEG Extremity: trace B/L LE edema. no clubbing. neuro: awake. . Psych: unable to assess rectal: deferred : normal ECHO 12/16/16: Personally reviewed 1. Normal left ventricular systolic function. Normal left ventricular cavity size. Moderate concentric left ventricular hypertrophy. Ejection fraction is visually estimated at 65 %. Abnormal Diastolic Function. 2. There is moderate enlargement of left atrium. 3. Mild mitral leaflet calcification. Mild mitral annular calcification. Trace mitral regurgitation. 4. Aortic sclerosis without stenosis. Trace aortic valve regurgitation. 5. Normal appearance of the tricuspid valve. Estimated peak PA systolic pressure 38 mmHg. There is mild tricuspid regurgitation. Objective Vital Signs Date Time Temp Pulse Resp B/P Pulse Ox O2 Delivery O2 Flow Rate FiO2 01/31/17 17:10 98 12 99 30 01/31/17 15:29 98.3 171/81 01/30/17 20:00 Mechanical Ventilator Intake and Output 01/30/17 01/30/17 01/31/17 15:00 23:00 07:00 Intake Total 1010 ml 230 ml 240 ml Output Total 3050 ml 30 ml 30 ml Balance -2040 ml 200 ml 210 ml Results/Medications Result Diagram: 01/31/17 0548 01/31/17 0548 Results 24 hrs Laboratory Tests Test 01/30/17 18:42 01/30/17 22:29 01/31/17 01:59 01/31/17 05:48 Bedside Glucose 234 H 262 H 191 White Blood Count 10.7 Red Blood Count 2.73 L Hemoglobin 7.9 L Hematocrit 26.3 L Mean Corpuscular Volume 96.3 Mean Corpuscular Hemoglobin 28.9 L Mean Corpuscular Hemoglobin Concent 30.0 L Red Cell Distribution Width 15.1 H Platelet Count 262 Mean Platelet Volume 9.8 Neutrophils % 83.7 H Lymphocytes % 5.7 L Monocytes % 6.0 Eosinophils % 3.8 Basophils % 0.1 Nucleated Red Blood Cells % 0.0 Neutrophils # 9.0 H Lymphocytes # 0.6 L Monocytes # 0.6 Eosinophils # 0.4 Basophils # 0.0 Nucleated Red Blood Cells # 0.0 Sodium Level 135 Potassium Level 3.4 L Chloride Level 99 Carbon Dioxide Level 32 H Anion Gap 7 L Blood Urea Nitrogen 23 H Creatinine 2.04 H Glucose Level 178 Calcium Level 9.1 Phosphorus Level 2.8 Magnesium Level 2.1 Test 01/31/17 06:38 01/31/17 09:19 01/31/17 13:44 01/31/17 18:30 Bedside Glucose 212 201 226 H 244 H Medications Current Medications Naloxone HCl (Narcan) 0.4 mg Q4 PRN IV SEDATION; Start 01/05/17 at 01:30 Bisacodyl (Dulcolax Supp) 10 mg DAILY [place] Last administered on 01/26/17 09:57; Admin Dose 10 MG; Start 01/06/17 at 09:00; Status Future Hold Budesonide (Pulmicort (Neb)) 0.25 mg BID NEB Last administered on 01/31/17 09: 26; Admin Dose 0.25 MG; Start 01/05/17 at 10:30 Fluticasone Propionate (Flonase 0.05% Nasal) 1 spray DAILY NASAL Last administered on 01/31/17 09:21; Admin Dose 1 SPRAY; Start 01/05/17 at 11:00 Magnesium Hydroxide (Milk Of Mag) 30 ml BID PRN PO CONSTIPATION Last administered on 01/16/17 09:09; Admin Dose 30 ML; Start 01/05/17 at 10:30 Nitroglycerin (Nitroglycerin 2% Oint) 0.5 inch Q6 PRN TD CHEST PAIN; Start 03/13 at 10:30 Ondansetron HCl (Zofran Inj) 4 mg Q6H PRN IV NAUSEA Last administered on 00:01; Admin Dose 4 MG; Start 01/05/17 at 10:30 Prednisone (Prednisone) 5 mg DAILY PO Last administered on 01/31/17 09:22; Admin Dose 5 MG; Start 01/05/17 at 12:00 Prednisone (Prednisone) 3 mg DAILY PO Last administered on 01/31/17 09:20; Admin Dose 3 MG; Start 01/05/17 at 12:00 Miscellaneous Information 1 ea NOTE XX ; Start 01/05/17 at 11:00 Glucose (Glutose) 15 gm Q15M PRN PO DECREASED GLUCOSE; Start 01/05/17 at 11:00 Glucose (Glutose) 22.5 gm Q15M PRN PO DECREASED GLUCOSE; Start 01/05/17 at 11: 00 Dextrose (D50w Syringe) 25 ml Q15M PRN IV DECREASED GLUCOSE Last administered on 01/23/17 03:45; Admin Dose 25 ML; Start 01/05/17 at 11:00 Dextrose (D50w Syringe) 50 ml Q15M PRN IV DECREASED GLUCOSE Last administered on 01/08/17 21:33; Admin Dose 50 ML; Start 01/05/17 at 11:00 Glucagon (Glucagen) 1 mg Q15M PRN IM DECREASED GLUCOSE Last administered on 21:08; Admin Dose 1 MG; Start 01/05/17 at 11:00 Glucose (Glutose) 15 gm Q15M PRN BUCCAL DECREASED GLUCOSE Last administered on 01/23/17 21:36; Admin Dose 15 GM; Start 01/05/17 at 11:00 Bumetanide (Bumex) 1 mg BID IV Last administered on 01/13/17 21:06; Admin Dose 1 MG; Start 01/08/17 at 09:00; Status Future Hold Acetaminophen (Tylenol Tab) 650 mg Q6H PRN NGT PAIN AND OR ELEVATED TEMP Last administered on 01/28/17 20:48; Admin Dose 650 MG; Start 01/17/17 at 22:30 Apixaban (Eliquis) 2.5 mg BID NGT Last administered on 01/31/17 09:22; Admin Dose 2.5 MG; Start 01/17/17 at 21:00; Status Future hold Ascorbic Acid (Vitamin C) 500 mg BID NGT Last administered on 01/31/17 09:20; Admin Dose 500 MG; Start 01/17/17 at 21:00 Levothyroxine Sodium (Synthroid) 75 mcg DAILY@06 NGT Last administered on 06:54; Admin Dose 75 MCG; Start 01/18/17 at 06:00 Loratadine (Claritin) 10 mg DAILY NGT Last administered on 01/31/17 09:22; Admin Dose 10 MG; Start 01/18/17 at 09:00 Mirtazapine (Remeron) 15 mg HS NGT Last administered on 01/30/17 22:54; Admin Dose 15 MG; Start 01/17/17 at 21:00 Oxcarbazepine (Trileptal) 600 mg BID NGT Last administered on 01/31/17 09:21; Admin Dose 600 MG; Start 01/17/17 at 21:00 Senna (Senokot) 1 tab HS NGT Last administered on 01/25/17 20:06; Admin Dose 1 TAB; Start 01/17/17 at 21:00; Status Future Hold Sertraline HCl (Zoloft) 75 mg DAILY NGT Last administered on 01/31/17 09:22; Admin Dose 75 MG; Start 01/18/17 at 09:00 Sildenafil Citrate (Revatio) 20 mg TID NGT Last administered on 01/31/17 13:46 ; Admin Dose 20 MG; Start 01/17/17 at 21:00 Docusate Sodium (Colace Liquid Cup) 100 mg BID NGT Last administered on 09:55; Admin Dose 100 MG; Start 01/17/17 at 21:00; Status Future Hold Famotidine (Pepcid) 20 mg DAILY NGT Last administered on 01/31/17 09:22; Admin Dose 20 MG; Start 01/20/17 at 09:00 Lorazepam (Ativan) 1 mg Q6H PRN IV anxiety Last administered on 01/29/17 14:52 ; Admin Dose 1 MG; Start 01/22/17 at 09:00 Tacrolimus (Prograf) 2 mg QPM NGT Last administered on 01/30/17 21:00; Admin Dose 2 MG; Start 01/24/17 at 21:00 Diagnostic Test (Pha) (Accu-Chek) 1 ea 02 XX Last administered on 01/31/17 02: 00; Admin Dose 1 EA; Start 01/26/17 at 02:00 Diagnostic Test (Pha) (Accu-Chek) 1 ea 02 XX Last administered on 01/31/17 02: 00; Admin Dose 1 EA; Start 01/27/17 at 02:00 Insulin Aspart (Novolog Insulin Pen) NOVOLOG *MODERATE* ALGORI... Q4 SC Last administered on 01/31/17 17:00; Admin Dose 6 UNIT; Start 01/26/17 at 17:00 Metoclopramide HCl (Reglan) 5 mg Q8H PRN IV VOMITTING; Start 01/26/17 at 15:30 Hydralazine HCl (Apresoline) 25 mg TID PRN GTB ELEVATED SYSTOLIC BP Last administered on 01/31/17 13:46; Admin Dose 25 MG; Start 01/27/17 at 07:00 Insulin Glargine (Lantus) 7 unit BID@08,20 SC Last administered on 01/31/17 08 :00; Admin Dose 7 UNIT; Start 01/28/17 at 08:00 Fulvestrant (Faslodex) 500 mg Q28D IM Last administered on 01/29/17 21:16; Admin Dose 500 MG; Start 01/29/17 at 21:00 Metoprolol Tartrate (Lopressor) 50 mg BID NGT Last administered on 01/31/17 09 :22; Admin Dose 50 MG; Start 01/30/17 at 21:00 Voriconazole (Vfend) 200 mg BID PO ; Start 01/31/17 at 21:00 Assessment/Plan Chief Complaint/Hosp Course Assessment: 1. s/p cardiopulmonary arrest: Most likely due to pulmonary arrest 2. P afib: now remains in persistent Afib. 3. History of renal failure status post renal transplant: now with KATI on CKD: currently requiring HD. 4. Acute on chronic hypoxemic hypercapnic respiratory failure status post reintubation: currently on the vent: AWAITING TRACH. 5. Shock: resolved now. 6. ANEMIA 7. breast cancer 8. HTN: 9. anxiety 10. DM 11. Hypothyroidism: on synthroid. 12. pleural effusion : s/p thoracentesis 13. Dysphagia: s/p PEG Recommendations: vent support for now anti- rejection medications to be adjusted as per renal team. HD as per renal. cont DM control thyroid supplement inc betablocker correct lytes prn with HD. cont tele monitoring transfusion prn CONT eliquis as long as no active bleeding . Thank you for this referral I will continue to follow along with you. AUGUSTINA MALDONADO MD [facility] Problems: AUGUSTINA MALDONADO MD Jan 31, 2017 18:38
[2017-01-31] MEDS: VORICONAZOLE 200 MG TAB PO SCH (21:39)
[2017-01-31] MEDS: MIRTAZAPINE 15 MG TAB NGT SCH (21:40)
[2017-02-01] VITALS (26 sets, daily range): BP systolic 112–176; BP diastolic 46–83; PULSE 72–93; RESP 12–22
[2017-02-01] MEDS: INSULIN ASPART [NOVOLOG] 3 ML PEN SC SCH ×6 (01:00→21:26)
[2017-02-01] MEDS: ALBUTEROL 18 GM INHALER INH SCH ×4 (01:37→19:47)
[2017-02-01] MEDS: IPRATROPIUM (HFA) 12.9 GM INHALER INH SCH ×4 (01:37→19:47)
[2017-02-01] MEDS: ACCU-CHEK XX SCH ×2 (02:08)
[2017-02-01] MEDS: LEVOTHYROXINE 75 MCG TAB NGT SCH (05:42)
[2017-02-01] MEDS: INSULIN GLARGINE [LANtus] 3 ML PEN SC SCH ×2 (08:00→21:27)
[2017-02-01] MEDS: BUDESONIDE (NEB) 0.25 MG/2 ML AMP NEB SCH ×2 (09:00→21:30)
[2017-02-01] MEDS: predniSONE 5 MG TAB PO SCH (09:44)
[2017-02-01] MEDS: OXCARBAZEPINE 300 MG TAB NGT SCH ×2 (09:44→21:00)
[2017-02-01] MEDS: VORICONAZOLE 200 MG TAB PO SCH ×2 (09:44→21:21)
[2017-02-01] MEDS: LORATADINE 10 MG TAB NGT SCH (09:44)
[2017-02-01] MEDS: APIXABAN 5 MG TABLET NGT SCH ×2 (09:44→21:21)
[2017-02-01] MEDS: ASCORBIC ACID 500 MG TAB NGT SCH ×2 (09:44→21:22)
[2017-02-01] MEDS: FAMOTIDINE 20 MG TAB NGT SCH (09:44)
[2017-02-01] MEDS: TACROLIMUS 1 MG CAP NGT SCH ×2 (09:45→21:21)
[2017-02-01] MEDS: predniSONE 1 MG TAB PO SCH (09:45)
[2017-02-01] MEDS: METOPROLOL 50 MG TAB NGT SCH ×3 (09:46→21:23)
[2017-02-01] MEDS: FLUTICASONE 0.05% 16 GM NAS SPRAY NASAL SCH (09:46)
[2017-02-01] MEDS: SERTRALINE 50 MG TAB NGT SCH (09:46)
[2017-02-01] MEDS: BALSAM PERU/CASTOR OIL 60 GM TUBE TOP SCH (09:46)
[2017-02-01] MEDS: SILDENAFIL 20 MG TAB NGT SCH ×3 (09:51→21:00)
--- NOTE | 2017-02-01 10:42 | PN ---
Date/Time of Note Date/Time of Note DATE: 02/01/17 TIME: 10:42 Assessment/Plan VTE Prophylaxis VTE Prophylaxis Intervention: other Lines/Catheters IV C[facility]ter Type (from [facility]): PICC Line Central line still needed: Yes Urinary Cath still in place: Yes Reason Cath still needed: urinary retention Assessment/Plan Chief Complaint/Hosp Course SUBJECTIVE: The patient is stable. No events overnight. No fevers, chills, nausea, vomiting. Patient had hemodialysis 2 days ago, tolerated well with 3 liters removed. No other acute events noted. No hemoptysis, hematemesis or hematochezia. no reports of melena, hematuria, new rash, dyspnea, fever, chill or diaphoresis vent settings were reviewed d/w Dr Rosenthal remains anuric OBJECTIVE: HEENT: Head is normocephalic. NECK: Supple. HEART: Regular rate. LUNGS: Show diminished breath sounds at base. ABDOMEN: Soft, nontender to palpation. No rebound or guarding. EXTREMITIES: Negative for clubbing, cyanosis. Positive edema. DERMATOLOGIC: No rashes. MUSCULOSKELETAL: No joint effusions. NEUROLOGIC: No change in exam. MEDICATIONS: Reviewed. OBJECTIVE DATA: HEENT: Head is normocephalic. Pupils are reactive to light. NECK: Supple. HEART: Regular rate. LUNGS: Showed diminished breath sounds at the base. ABDOMEN: Soft. Nontender to palpation. No rebound or guarding. EXTREMITIES: Negative for clubbing, cyanosis. No edema. DERMATOLOGIC: Clean. No rashes. MUSCULOSKELETAL: No joint effusion. NEUROLOGIC: No focal deficits. MEDICATIONS, labs, previous orders, nurses' care plans: Reviewed. 1. 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 Etiology of acute kidney injury is secondary to acute tubular necrosis. The patient is currently dialysis dependent, no signs of recovery. Continue intermittent dialysis io am 2. Hyponatremia. will adjust dialysate 3. Hypokalemia, replete with potassium chloride. 4. Paroxysmal atrial fibrillation, continue current medical management and follow up with cardiology. 5. Sepsis, status post shock secondary to pneumonia. The patient is completing antibiotic course. 6. Leukocytosis, likely due to stress and demargination. Will continue to monitor closely. Follow up with Infectious Disease. 7. Fungal urinary tract infection. The patient is status post antifungal therapy. 8. 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 The patient's current acute kidney injury as stated above. Continue current immunosuppressive regimen. Prograf levels within acceptable range. 9. Hypothyroidism. Continue Synthroid. 10. Anemia. Continue to monitor hemoglobin and hematocrit levels. 11. Diabetes. Continue Accu-Cheks and insulin sliding scale. 12. Pulmonary hypertension. Continue current medical management. 13. End-stage dependent respiratory failure, status post tracheostomy, vent settings have been reviewed. Continue to monitor. 14. Volume overload. Continue ultrafiltration with dialysis. 15. Dysphagia, status post PEG, continue tube feeding. 16. History of breast cancer. Follow up with hematology. The patient is on Faslodex. 17. Pleural effusion. The patient's cytology was negative. 18. History of breast cancer with lung metastasis. The patient is on medical management. on Faslodex as outpt Problems: Exam/Review of Systems Vital Signs Vitals Vital Signs Date Time Temp Pulse Resp B/P Pulse Ox O2 Delivery O2 Flow Rate FiO2 02/01/17 08:41 93 02/01/17 07:40 14 99 30 02/01/17 07:12 99.0 172/81 01/30/17 20:00 Mechanical Ventilator Intake and Output 01/31/17 01/31/17 02/01/17 15:00 23:00 07:00 Intake Total 540 ml Output Total 100 ml Balance 440 ml Results Result Diagram: 01/31/17 0548 01/31/17 0548 Results 24 hrs Laboratory Tests Test 01/31/17 13:44 01/31/17 18:30 01/31/17 20:50 02/01/17 01:55 Bedside Glucose 226 H 244 H 227 H 208 Test 02/01/17 05:40 02/01/17 09:53 Bedside Glucose 121 191 Medications Medications Current Medications Naloxone HCl (Narcan) 0.4 mg Q4 PRN IV SEDATION; Start 01/05/17 at 01:30 Bisacodyl (Dulcolax Supp) 10 mg DAILY [place] Last administered on 01/26/17 09:57; Admin Dose 10 MG; Start 01/06/17 at 09:00; Status Future Hold Budesonide (Pulmicort (Neb)) 0.25 mg BID NEB Last administered on 01/31/17 20: 25; Admin Dose 0.25 MG; Start 01/05/17 at 10:30 Fluticasone Propionate (Flonase 0.05% Nasal) 1 spray DAILY NASAL Last administered on 02/01/17 09:46; Admin Dose 1 SPRAY; Start 01/05/17 at 11:00 Magnesium Hydroxide (Milk Of Mag) 30 ml BID PRN PO CONSTIPATION Last administered on 01/16/17 09:09; Admin Dose 30 ML; Start 01/05/17 at 10:30 Nitroglycerin (Nitroglycerin 2% Oint) 0.5 inch Q6 PRN TD CHEST PAIN; Start 03/13 at 10:30 Ondansetron HCl (Zofran Inj) 4 mg Q6H PRN IV NAUSEA Last administered on 00:01; Admin Dose 4 MG; Start 01/05/17 at 10:30 Prednisone (Prednisone) 5 mg DAILY PO Last administered on 02/01/17 09:44; Admin Dose 5 MG; Start 01/05/17 at 12:00 Prednisone (Prednisone) 3 mg DAILY PO Last administered on 02/01/17 09:45; Admin Dose 3 MG; Start 01/05/17 at 12:00 Miscellaneous Information 1 ea NOTE XX ; Start 01/05/17 at 11:00 Glucose (Glutose) 15 gm Q15M PRN PO DECREASED GLUCOSE; Start 01/05/17 at 11:00 Glucose (Glutose) 22.5 gm Q15M PRN PO DECREASED GLUCOSE; Start 01/05/17 at 11: 00 Dextrose (D50w Syringe) 25 ml Q15M PRN IV DECREASED GLUCOSE Last administered on 01/23/17 03:45; Admin Dose 25 ML; Start 01/05/17 at 11:00 Dextrose (D50w Syringe) 50 ml Q15M PRN IV DECREASED GLUCOSE Last administered on 01/08/17 21:33; Admin Dose 50 ML; Start 01/05/17 at 11:00 Glucagon (Glucagen) 1 mg Q15M PRN IM DECREASED GLUCOSE Last administered on 21:08; Admin Dose 1 MG; Start 01/05/17 at 11:00 Glucose (Glutose) 15 gm Q15M PRN BUCCAL DECREASED GLUCOSE Last administered on 01/23/17 21:36; Admin Dose 15 GM; Start 01/05/17 at 11:00 Bumetanide (Bumex) 1 mg BID IV Last administered on 01/13/17 21:06; Admin Dose 1 MG; Start 01/08/17 at 09:00; Status Future Hold Acetaminophen (Tylenol Tab) 650 mg Q6H PRN NGT PAIN AND OR ELEVATED TEMP Last administered on 01/28/17 20:48; Admin Dose 650 MG; Start 01/17/17 at 22:30 Apixaban (Eliquis) 2.5 mg BID NGT Last administered on 02/01/17 09:44; Admin Dose 2.5 MG; Start 01/17/17 at 21:00; Status Future hold Ascorbic Acid (Vitamin C) 500 mg BID NGT Last administered on 02/01/17 09:44; Admin Dose 500 MG; Start 01/17/17 at 21:00 Levothyroxine Sodium (Synthroid) 75 mcg DAILY@06 NGT Last administered on 05:42; Admin Dose 75 MCG; Start 01/18/17 at 06:00 Loratadine (Claritin) 10 mg DAILY NGT Last administered on 02/01/17 09:44; Admin Dose 10 MG; Start 01/18/17 at 09:00 Mirtazapine (Remeron) 15 mg HS NGT Last administered on 01/31/17 21:40; Admin Dose 15 MG; Start 01/17/17 at 21:00 Oxcarbazepine (Trileptal) 600 mg BID NGT Last administered on 02/01/17 09:44; Admin Dose 600 MG; Start 01/17/17 at 21:00 Senna (Senokot) 1 tab HS NGT Last administered on 01/25/17 20:06; Admin Dose 1 TAB; Start 01/17/17 at 21:00; Status Future Hold Sertraline HCl (Zoloft) 75 mg DAILY NGT Last administered on 02/01/17 09:46; Admin Dose 75 MG; Start 01/18/17 at 09:00 Sildenafil Citrate (Revatio) 20 mg TID NGT Last administered on 02/01/17 09:51 ; Admin Dose 20 MG; Start 01/17/17 at 21:00 Docusate Sodium (Colace Liquid Cup) 100 mg BID NGT Last administered on 09:55; Admin Dose 100 MG; Start 01/17/17 at 21:00; Status Future Hold Famotidine (Pepcid) 20 mg DAILY NGT Last administered on 02/01/17 09:44; Admin Dose 20 MG; Start 01/20/17 at 09:00 Lorazepam (Ativan) 1 mg Q6H PRN IV anxiety Last administered on 01/29/17 14:52 ; Admin Dose 1 MG; Start 01/22/17 at 09:00 Tacrolimus (Prograf) 2 mg QPM NGT Last administered on 01/31/17 21:41; Admin Dose 2 MG; Start 01/24/17 at 21:00 Diagnostic Test (Pha) (Accu-Chek) 1 ea 02 XX Last administered on 02/01/17 02: 08; Admin Dose 1 EA; Start 01/26/17 at 02:00 Diagnostic Test (Pha) (Accu-Chek) 1 ea 02 XX Last administered on 02/01/17 02: 08; Admin Dose 1 EA; Start 01/27/17 at 02:00 Insulin Aspart (Novolog Insulin Pen) NOVOLOG *MODERATE* ALGORI... Q4 SC Last administered on 02/01/17 09:00; Admin Dose 4 UNIT; Start 01/26/17 at 17:00 Metoclopramide HCl (Reglan) 5 mg Q8H PRN IV VOMITTING; Start 01/26/17 at 15:30 Hydralazine HCl (Apresoline) 25 mg TID PRN GTB ELEVATED SYSTOLIC BP Last administered on 01/31/17 13:46; Admin Dose 25 MG; Start 01/27/17 at 07:00 Insulin Glargine (Lantus) 7 unit BID@08,20 SC Last administered on 02/01/17 08 :00; Admin Dose 7 UNIT; Start 01/28/17 at 08:00 Fulvestrant (Faslodex) 500 mg Q28D IM Last administered on 01/29/17 21:16; Admin Dose 500 MG; Start 01/29/17 at 21:00 Voriconazole (Vfend) 200 mg BID PO Last administered on 02/01/17 09:44; Admin Dose 200 MG; Start 01/31/17 at 21:00 Metoprolol Tartrate (Lopressor) 50 mg TID NGT Last administered on 10/8/17at 09 :46; Admin Dose 50 MG; Start 01/31/17 at 21:00 MICHAEL GALICIA DO Feb 01, 2017 10:42
--- NOTE | 2017-02-01 15:10 | CONS ---
Date/Time of Note Date/Time of Note DATE: 02/01/17 TIME: 15:09 Assessment/Plan Assessment/Plan Chief Complaint/Hosp Course SUBJECTIVE: Sleeping, looks comfortable, no fevers Temperature 99.3 pulse 98 respirations 18 blood pressure 163/79 saturation 100 on 30 FiO2 INDWELLINGS: Trach, PEG, [place], right IJ Bandar. PHYSICAL EXAMINATION: GENERAL: This is a fragile, chronically ill-appearing, elderly woman who is awake, in no distress. HEENT: Head atraumatic, normocephalic. Sclerae anicteric. Buccal mucosa dry. NECK: Supple. Tracheostomy present. CHEST: Rise symmetrical. Breath sounds diminished to bases. HEART: S1, S2. ABDOMEN: Soft, bowel sounds present. EXTREMITIES: Without cyanosis. Bilateral trace edema. ASSESSMENT: 1. Status post sepsis, urinary tract infection, pneumonia. 2. Acute respiratory failure. 3. Acute on chronic kidney disease, now on hemodialysis. 4. History of kidney transplant, remains on immunosuppressive therapy. 5. Dysphagia. 6. Anemia. 7. Cloudy urine with sediment PLAN: The patient remains stable. Restarted on Vfend, pending repeat urine cx. DW staff Problems: Consultation Date/Type/Reason Admit Date/Time Jan 05, 2017 at 00:15 Initial Consult Date 01/05/17 Type of Consultation: ID Referring Provider: SUSAN SIMENTAL DO Exam/Review of Systems Vital Signs Vitals Vital Signs Date Time Temp Pulse Resp B/P Pulse Ox O2 Delivery O2 Flow Rate FiO2 02/01/17 13:15 92 13 100 30 02/01/17 11:29 99.3 163/79 01/30/17 20:00 Mechanical Ventilator Intake and Output 01/31/17 01/31/17 02/01/17 15:00 23:00 07:00 Intake Total 540 ml Output Total 100 ml Balance 440 ml Results Result Diagram: 01/31/17 0548 01/31/17 0548 Results 24 hrs Laboratory Tests Test 01/31/17 18:30 01/31/17 20:50 02/01/17 01:55 02/01/17 05:40 Bedside Glucose 244 H 227 H 208 121 Test 02/01/17 09:53 02/01/17 13:57 Bedside Glucose 191 165 Medications Medications Current Medications Naloxone HCl (Narcan) 0.4 mg Q4 PRN IV SEDATION; Start 01/05/17 at 01:30 Bisacodyl (Dulcolax Supp) 10 mg DAILY [place] Last administered on 01/26/17 09:57; Admin Dose 10 MG; Start 01/06/17 at 09:00; Status Future Hold Budesonide (Pulmicort (Neb)) 0.25 mg BID NEB Last administered on 01/31/17 20: 25; Admin Dose 0.25 MG; Start 01/05/17 at 10:30 Fluticasone Propionate (Flonase 0.05% Nasal) 1 spray DAILY NASAL Last administered on 02/01/17 09:46; Admin Dose 1 SPRAY; Start 01/05/17 at 11:00 Magnesium Hydroxide (Milk Of Mag) 30 ml BID PRN PO CONSTIPATION Last administered on 01/16/17 09:09; Admin Dose 30 ML; Start 01/05/17 at 10:30 Nitroglycerin (Nitroglycerin 2% Oint) 0.5 inch Q6 PRN TD CHEST PAIN; Start 03/13 at 10:30 Ondansetron HCl (Zofran Inj) 4 mg Q6H PRN IV NAUSEA Last administered on 00:01; Admin Dose 4 MG; Start 01/05/17 at 10:30 Prednisone (Prednisone) 5 mg DAILY PO Last administered on 02/01/17 09:44; Admin Dose 5 MG; Start 01/05/17 at 12:00 Prednisone (Prednisone) 3 mg DAILY PO Last administered on 02/01/17 09:45; Admin Dose 3 MG; Start 01/05/17 at 12:00 Miscellaneous Information 1 ea NOTE XX ; Start 01/05/17 at 11:00 Glucose (Glutose) 15 gm Q15M PRN PO DECREASED GLUCOSE; Start 01/05/17 at 11:00 Glucose (Glutose) 22.5 gm Q15M PRN PO DECREASED GLUCOSE; Start 01/05/17 at 11: 00 Dextrose (D50w Syringe) 25 ml Q15M PRN IV DECREASED GLUCOSE Last administered on 01/23/17 03:45; Admin Dose 25 ML; Start 01/05/17 at 11:00 Dextrose (D50w Syringe) 50 ml Q15M PRN IV DECREASED GLUCOSE Last administered on 01/08/17 21:33; Admin Dose 50 ML; Start 01/05/17 at 11:00 Glucagon (Glucagen) 1 mg Q15M PRN IM DECREASED GLUCOSE Last administered on 21:08; Admin Dose 1 MG; Start 01/05/17 at 11:00 Glucose (Glutose) 15 gm Q15M PRN BUCCAL DECREASED GLUCOSE Last administered on 01/23/17 21:36; Admin Dose 15 GM; Start 01/05/17 at 11:00 Bumetanide (Bumex) 1 mg BID IV Last administered on 01/13/17 21:06; Admin Dose 1 MG; Start 01/08/17 at 09:00; Status Future Hold Acetaminophen (Tylenol Tab) 650 mg Q6H PRN NGT PAIN AND OR ELEVATED TEMP Last administered on 01/28/17 20:48; Admin Dose 650 MG; Start 01/17/17 at 22:30 Apixaban (Eliquis) 2.5 mg BID NGT Last administered on 02/01/17 09:44; Admin Dose 2.5 MG; Start 01/17/17 at 21:00; Status Future hold Ascorbic Acid (Vitamin C) 500 mg BID NGT Last administered on 02/01/17 09:44; Admin Dose 500 MG; Start 01/17/17 at 21:00 Levothyroxine Sodium (Synthroid) 75 mcg DAILY@06 NGT Last administered on 05:42; Admin Dose 75 MCG; Start 01/18/17 at 06:00 Loratadine (Claritin) 10 mg DAILY NGT Last administered on 02/01/17 09:44; Admin Dose 10 MG; Start 01/18/17 at 09:00 Mirtazapine (Remeron) 15 mg HS NGT Last administered on 01/31/17 21:40; Admin Dose 15 MG; Start 01/17/17 at 21:00 Oxcarbazepine (Trileptal) 600 mg BID NGT Last administered on 02/01/17 09:44; Admin Dose 600 MG; Start 01/17/17 at 21:00 Senna (Senokot) 1 tab HS NGT Last administered on 01/25/17 20:06; Admin Dose 1 TAB; Start 01/17/17 at 21:00; Status Future Hold Sertraline HCl (Zoloft) 75 mg DAILY NGT Last administered on 02/01/17 09:46; Admin Dose 75 MG; Start 01/18/17 at 09:00 Sildenafil Citrate (Revatio) 20 mg TID NGT Last administered on 02/01/17 13:57 ; Admin Dose 20 MG; Start 01/17/17 at 21:00 Docusate Sodium (Colace Liquid Cup) 100 mg BID NGT Last administered on 09:55; Admin Dose 100 MG; Start 01/17/17 at 21:00; Status Future Hold Famotidine (Pepcid) 20 mg DAILY NGT Last administered on 02/01/17 09:44; Admin Dose 20 MG; Start 01/20/17 at 09:00 Lorazepam (Ativan) 1 mg Q6H PRN IV anxiety Last administered on 01/29/17 14:52 ; Admin Dose 1 MG; Start 01/22/17 at 09:00 Tacrolimus (Prograf) 2 mg QPM NGT Last administered on 01/31/17 21:41; Admin Dose 2 MG; Start 01/24/17 at 21:00 Diagnostic Test (Pha) (Accu-Chek) 1 ea 02 XX Last administered on 02/01/17 02: 08; Admin Dose 1 EA; Start 01/26/17 at 02:00 Diagnostic Test (Pha) (Accu-Chek) 1 ea 02 XX Last administered on 02/01/17 02: 08; Admin Dose 1 EA; Start 01/27/17 at 02:00 Insulin Aspart (Novolog Insulin Pen) NOVOLOG *MODERATE* ALGORI... Q4 SC Last administered on 02/01/17 14:04; Admin Dose 2 UNIT; Start 01/26/17 at 17:00 Metoclopramide HCl (Reglan) 5 mg Q8H PRN IV VOMITTING; Start 01/26/17 at 15:30 Hydralazine HCl (Apresoline) 25 mg TID PRN GTB ELEVATED SYSTOLIC BP Last administered on 02/01/17 13:58; Admin Dose 25 MG; Start 01/27/17 at 07:00 Insulin Glargine (Lantus) 7 unit BID@08,20 [place] Last administered on 02/01/17 08 :00; Admin Dose 7 UNIT; Start 01/28/17 at 08:00 Fulvestrant (Faslodex) 500 mg Q28D IM Last administered on 01/29/17 21:16; Admin Dose 500 MG; Start 01/29/17 at 21:00 Voriconazole (Vfend) 200 mg BID PO Last administered on 02/01/17 09:44; Admin Dose 200 MG; Start 01/31/17 at 21:00 Metoprolol Tartrate (Lopressor) 50 mg TID NGT Last administered on 02/01/17 13 :58; Admin Dose 50 MG; Start 01/31/17 at 21:00 MAXIMUS ETIENNE NP Feb 01, 2017 15:10
--- NOTE | 2017-02-01 17:22 | CONS ---
Date/Time of Note Date/Time of Note DATE: 02/01/17 TIME: 17:20 Consult Date/Type/Reason Admit Date/Time Jan 05, 2017 at 00:15 Initial Consult Date 01/05/17 Type of Consultation: Pulm Ordering Provider: SUSAN SIMENTAL DO Subjective No events. Objective Vital Signs Date Time Temp Pulse Resp B/P Pulse Ox O2 Delivery O2 Flow Rate FiO2 02/01/17 17:13 96 14 100 30 02/01/17 15:33 99.1 176/79 01/30/17 20:00 Mechanical Ventilator Intake and Output 01/31/17 01/31/17 02/01/17 15:00 23:00 07:00 Intake Total 540 ml Output Total 100 ml Balance 440 ml Exam HEENT: Neck supple; no JVD; no LAD; trach site clean CVS: RRR, S1 and S2 CHEST: Clear ABD: Soft, NT, + BS EXT: No c/c; edema + Results/Medications Result Diagram: 01/31/17 0548 01/31/17 0548 Results 24 hrs Laboratory Tests Test 01/31/17 18:30 01/31/17 20:50 02/01/17 01:55 02/01/17 05:40 Bedside Glucose 244 H 227 H 208 121 Test 02/01/17 09:53 02/01/17 13:57 Bedside Glucose 191 165 Medications Current Medications Naloxone HCl (Narcan) 0.4 mg Q4 PRN IV SEDATION; Start 01/05/17 at 01:30 Bisacodyl (Dulcolax Supp) 10 mg DAILY [place] Last administered on 01/26/17 09:57; Admin Dose 10 MG; Start 01/06/17 at 09:00; Status Future Hold Budesonide (Pulmicort (Neb)) 0.25 mg BID NEB Last administered on 01/31/17 20: 25; Admin Dose 0.25 MG; Start 01/05/17 at 10:30 Fluticasone Propionate (Flonase 0.05% Nasal) 1 spray DAILY NASAL Last administered on 02/01/17 09:46; Admin Dose 1 SPRAY; Start 01/05/17 at 11:00 Magnesium Hydroxide (Milk Of Mag) 30 ml BID PRN PO CONSTIPATION Last administered on 01/16/17 09:09; Admin Dose 30 ML; Start 01/05/17 at 10:30 Nitroglycerin (Nitroglycerin 2% Oint) 0.5 inch Q6 PRN TD CHEST PAIN; Start 03/13 at 10:30 Ondansetron HCl (Zofran Inj) 4 mg Q6H PRN IV NAUSEA Last administered on 00:01; Admin Dose 4 MG; Start 01/05/17 at 10:30 Prednisone (Prednisone) 5 mg DAILY PO Last administered on 02/01/17 09:44; Admin Dose 5 MG; Start 01/05/17 at 12:00 Prednisone (Prednisone) 3 mg DAILY PO Last administered on 02/01/17 09:45; Admin Dose 3 MG; Start 01/05/17 at 12:00 Miscellaneous Information 1 ea NOTE XX ; Start 01/05/17 at 11:00 Glucose (Glutose) 15 gm Q15M PRN PO DECREASED GLUCOSE; Start 01/05/17 at 11:00 Glucose (Glutose) 22.5 gm Q15M PRN PO DECREASED GLUCOSE; Start 01/05/17 at 11: 00 Dextrose (D50w Syringe) 25 ml Q15M PRN IV DECREASED GLUCOSE Last administered on 01/23/17 03:45; Admin Dose 25 ML; Start 01/05/17 at 11:00 Dextrose (D50w Syringe) 50 ml Q15M PRN IV DECREASED GLUCOSE Last administered on 01/08/17 21:33; Admin Dose 50 ML; Start 01/05/17 at 11:00 Glucagon (Glucagen) 1 mg Q15M PRN IM DECREASED GLUCOSE Last administered on 21:08; Admin Dose 1 MG; Start 01/05/17 at 11:00 Glucose (Glutose) 15 gm Q15M PRN BUCCAL DECREASED GLUCOSE Last administered on 01/23/17 21:36; Admin Dose 15 GM; Start 01/05/17 at 11:00 Bumetanide (Bumex) 1 mg BID IV Last administered on 01/13/17 21:06; Admin Dose 1 MG; Start 01/08/17 at 09:00; Status Future Hold Acetaminophen (Tylenol Tab) 650 mg Q6H PRN NGT PAIN AND OR ELEVATED TEMP Last administered on 01/28/17 20:48; Admin Dose 650 MG; Start 01/17/17 at 22:30 Apixaban (Eliquis) 2.5 mg BID NGT Last administered on 02/01/17 09:44; Admin Dose 2.5 MG; Start 01/17/17 at 21:00; Status Future hold Ascorbic Acid (Vitamin C) 500 mg BID NGT Last administered on 02/01/17 09:44; Admin Dose 500 MG; Start 01/17/17 at 21:00 Levothyroxine Sodium (Synthroid) 75 mcg DAILY@06 NGT Last administered on 05:42; Admin Dose 75 MCG; Start 01/18/17 at 06:00 Loratadine (Claritin) 10 mg DAILY NGT Last administered on 02/01/17 09:44; Admin Dose 10 MG; Start 01/18/17 at 09:00 Mirtazapine (Remeron) 15 mg HS NGT Last administered on 01/31/17 21:40; Admin Dose 15 MG; Start 01/17/17 at 21:00 Oxcarbazepine (Trileptal) 600 mg BID NGT Last administered on 02/01/17 09:44; Admin Dose 600 MG; Start 01/17/17 at 21:00 Senna (Senokot) 1 tab HS NGT Last administered on 01/25/17 20:06; Admin Dose 1 TAB; Start 01/17/17 at 21:00; Status Future Hold Sertraline HCl (Zoloft) 75 mg DAILY NGT Last administered on 02/01/17 09:46; Admin Dose 75 MG; Start 01/18/17 at 09:00 Sildenafil Citrate (Revatio) 20 mg TID NGT Last administered on 02/01/17 13:57 ; Admin Dose 20 MG; Start 01/17/17 at 21:00 Docusate Sodium (Colace Liquid Cup) 100 mg BID NGT Last administered on 09:55; Admin Dose 100 MG; Start 01/17/17 at 21:00; Status Future Hold Famotidine (Pepcid) 20 mg DAILY NGT Last administered on 02/01/17 09:44; Admin Dose 20 MG; Start 01/20/17 at 09:00 Lorazepam (Ativan) 1 mg Q6H PRN IV anxiety Last administered on 01/29/17 14:52 ; Admin Dose 1 MG; Start 01/22/17 at 09:00 Tacrolimus (Prograf) 2 mg QPM NGT Last administered on 01/31/17 21:41; Admin Dose 2 MG; Start 01/24/17 at 21:00 Diagnostic Test (Pha) (Accu-Chek) 1 ea 02 XX Last administered on 02/01/17 02: 08; Admin Dose 1 EA; Start 01/26/17 at 02:00 Diagnostic Test (Pha) (Accu-Chek) 1 ea 02 XX Last administered on 02/01/17 02: 08; Admin Dose 1 EA; Start 01/27/17 at 02:00 Insulin Aspart (Novolog Insulin Pen) NOVOLOG *MODERATE* ALGORI... Q4 SC Last administered on 02/01/17 14:04; Admin Dose 2 UNIT; Start 01/26/17 at 17:00 Metoclopramide HCl (Reglan) 5 mg Q8H PRN IV VOMITTING; Start 01/26/17 at 15:30 Hydralazine HCl (Apresoline) 25 mg TID PRN GTB ELEVATED SYSTOLIC BP Last administered on 02/01/17 13:58; Admin Dose 25 MG; Start 01/27/17 at 07:00 Insulin Glargine (Lantus) 7 unit BID@08,20 SC Last administered on 02/01/17 08 :00; Admin Dose 7 UNIT; Start 01/28/17 at 08:00 Fulvestrant (Faslodex) 500 mg Q28D IM Last administered on 01/29/17 21:16; Admin Dose 500 MG; Start 01/29/17 at 21:00 Voriconazole (Vfend) 200 mg BID PO Last administered on 02/01/17 09:44; Admin Dose 200 MG; Start 01/31/17 at 21:00 Metoprolol Tartrate (Lopressor) 50 mg TID NGT Last administered on 02/01/17 13 :58; Admin Dose 50 MG; Start 01/31/17 at 21:00 Assessment/Plan Additional Assessment/Plan IMP: 1. Hypoxemic respiratory failure/Vent dependent 2. AMS 3. History of renal transplant. Renal insufficiency. Hyponatremia. 4. Dysphagia now with G-tube RECS: 1. Vent support 2. CPT 3. BD's 4. TFs/Free h20 5. Abx for ID SRINIVAS NEGRO MD Feb 01, 2017 17:22
--- NOTE | 2017-02-01 18:11 | CONS ---
Date/Time of Note Date/Time of Note DATE: 02/01/17 TIME: 18:10 Consult Date/Type/Reason Admit Date/Time Jan 05, 2017 at 00:15 Initial Consult Date 01/05/17 Type of Consultation: card Ordering Provider: SUSAN SIMENTAL DO Subjective CARDIOLOGY FOLLOW UP NOTE: D/W Staff and rhythm was reviewed. pt has remained in Afib. HR has been stable overall BP has been elevated. pt still remains on vent. s/p trach. NO reports of any chest pain or pressure S/P PEG 01/19/17 S/P Trach 01/27/17 pt is nonverbal on vent. OBJECTIVE: General: s/p trach on vent. HEENT: NC/AT. pupils are equal. round. NECK: s/p trach. no stridor. CV:irregularly irregular. systolic murmur; no gallop or rubs. PULM: no wheezing, + mild rhonchi. GI: SOFT, NT, ND, no rebound or guarding S/P PEG Extremity: trace B/L LE edema. no clubbing. neuro: awake. . Psych: unable to assess rectal: deferred : normal ECHO 12/16/16: Personally reviewed 1. Normal left ventricular systolic function. Normal left ventricular cavity size. Moderate concentric left ventricular hypertrophy. Ejection fraction is visually estimated at 65 %. Abnormal Diastolic Function. 2. There is moderate enlargement of left atrium. 3. Mild mitral leaflet calcification. Mild mitral annular calcification. Trace mitral regurgitation. 4. Aortic sclerosis without stenosis. Trace aortic valve regurgitation. 5. Normal appearance of the tricuspid valve. Estimated peak PA systolic pressure 38 mmHg. There is mild tricuspid regurgitation. Objective Vital Signs Date Time Temp Pulse Resp B/P Pulse Ox O2 Delivery O2 Flow Rate FiO2 02/01/17 17:13 96 14 100 30 02/01/17 15:33 99.1 176/79 01/30/17 20:00 Mechanical Ventilator Intake and Output 01/31/17 01/31/17 02/01/17 15:00 23:00 07:00 Intake Total 540 ml Output Total 100 ml Balance 440 ml Results/Medications Result Diagram: 01/31/17 0548 01/31/17 0548 Results 24 hrs Laboratory Tests Test 01/31/17 18:30 01/31/17 20:50 02/01/17 01:55 02/01/17 05:40 Bedside Glucose 244 H 227 H 208 121 Test 02/01/17 09:53 02/01/17 13:57 02/01/17 18:06 Bedside Glucose 191 165 255 H Medications Current Medications Naloxone HCl (Narcan) 0.4 mg Q4 PRN IV SEDATION; Start 01/05/17 at 01:30 Bisacodyl (Dulcolax Supp) 10 mg DAILY ME Last administered on 01/26/17 09:57; Admin Dose 10 MG; Start 01/06/17 at 09:00; Status Future Hold Budesonide (Pulmicort (Neb)) 0.25 mg BID NEB Last administered on 01/31/17 20: 25; Admin Dose 0.25 MG; Start 01/05/17 at 10:30 Fluticasone Propionate (Flonase 0.05% Nasal) 1 spray DAILY NASAL Last administered on 02/01/17 09:46; Admin Dose 1 SPRAY; Start 01/05/17 at 11:00 Magnesium Hydroxide (Milk Of Mag) 30 ml BID PRN PO CONSTIPATION Last administered on 01/16/17 09:09; Admin Dose 30 ML; Start 01/05/17 at 10:30 Nitroglycerin (Nitroglycerin 2% Oint) 0.5 inch Q6 PRN TD CHEST PAIN; Start 03/13 at 10:30 Ondansetron HCl (Zofran Inj) 4 mg Q6H PRN IV NAUSEA Last administered on 00:01; Admin Dose 4 MG; Start 01/05/17 at 10:30 Prednisone (Prednisone) 5 mg DAILY PO Last administered on 02/01/17 09:44; Admin Dose 5 MG; Start 01/05/17 at 12:00 Prednisone (Prednisone) 3 mg DAILY PO Last administered on 02/01/17 09:45; Admin Dose 3 MG; Start 01/05/17 at 12:00 Miscellaneous Information 1 ea NOTE XX ; Start 01/05/17 at 11:00 Glucose (Glutose) 15 gm Q15M PRN PO DECREASED GLUCOSE; Start 01/05/17 at 11:00 Glucose (Glutose) 22.5 gm Q15M PRN PO DECREASED GLUCOSE; Start 01/05/17 at 11: 00 Dextrose (D50w Syringe) 25 ml Q15M PRN IV DECREASED GLUCOSE Last administered on 01/23/17 03:45; Admin Dose 25 ML; Start 01/05/17 at 11:00 Dextrose (D50w Syringe) 50 ml Q15M PRN IV DECREASED GLUCOSE Last administered on 01/08/17 21:33; Admin Dose 50 ML; Start 01/05/17 at 11:00 Glucagon (Glucagen) 1 mg Q15M PRN IM DECREASED GLUCOSE Last administered on 21:08; Admin Dose 1 MG; Start 01/05/17 at 11:00 Glucose (Glutose) 15 gm Q15M PRN BUCCAL DECREASED GLUCOSE Last administered on 01/23/17 21:36; Admin Dose 15 GM; Start 01/05/17 at 11:00 Bumetanide (Bumex) 1 mg BID IV Last administered on 01/13/17 21:06; Admin Dose 1 MG; Start 01/08/17 at 09:00; Status Future Hold Acetaminophen (Tylenol Tab) 650 mg Q6H PRN NGT PAIN AND OR ELEVATED TEMP Last administered on 01/28/17 20:48; Admin Dose 650 MG; Start 01/17/17 at 22:30 Apixaban (Eliquis) 2.5 mg BID NGT Last administered on 02/01/17 09:44; Admin Dose 2.5 MG; Start 01/17/17 at 21:00; Status Future hold Ascorbic Acid (Vitamin C) 500 mg BID NGT Last administered on 02/01/17 09:44; Admin Dose 500 MG; Start 01/17/17 at 21:00 Levothyroxine Sodium (Synthroid) 75 mcg DAILY@06 NGT Last administered on 05:42; Admin Dose 75 MCG; Start 01/18/17 at 06:00 Loratadine (Claritin) 10 mg DAILY NGT Last administered on 02/01/17 09:44; Admin Dose 10 MG; Start 01/18/17 at 09:00 Mirtazapine (Remeron) 15 mg HS NGT Last administered on 01/31/17 21:40; Admin Dose 15 MG; Start 01/17/17 at 21:00 Oxcarbazepine (Trileptal) 600 mg BID NGT Last administered on 02/01/17 09:44; Admin Dose 600 MG; Start 01/17/17 at 21:00 Senna (Senokot) 1 tab HS NGT Last administered on 01/25/17 20:06; Admin Dose 1 TAB; Start 01/17/17 at 21:00; Status Future Hold Sertraline HCl (Zoloft) 75 mg DAILY NGT Last administered on 02/01/17 09:46; Admin Dose 75 MG; Start 01/18/17 at 09:00 Sildenafil Citrate (Revatio) 20 mg TID NGT Last administered on 02/01/17 13:57 ; Admin Dose 20 MG; Start 01/17/17 at 21:00 Docusate Sodium (Colace Liquid Cup) 100 mg BID NGT Last administered on 09:55; Admin Dose 100 MG; Start 01/17/17 at 21:00; Status Future Hold Famotidine (Pepcid) 20 mg DAILY NGT Last administered on 02/01/17 09:44; Admin Dose 20 MG; Start 01/20/17 at 09:00 Lorazepam (Ativan) 1 mg Q6H PRN IV anxiety Last administered on 01/29/17 14:52 ; Admin Dose 1 MG; Start 01/22/17 at 09:00 Tacrolimus (Prograf) 2 mg QPM NGT Last administered on 01/31/17 21:41; Admin Dose 2 MG; Start 01/24/17 at 21:00 Diagnostic Test (Pha) (Accu-Chek) 1 ea 02 XX Last administered on 02/01/17 02: 08; Admin Dose 1 EA; Start 01/26/17 at 02:00 Diagnostic Test (Pha) (Accu-Chek) 1 ea 02 XX Last administered on 02/01/17 02: 08; Admin Dose 1 EA; Start 01/27/17 at 02:00 Insulin Aspart (Novolog Insulin Pen) NOVOLOG *MODERATE* ALGORI... Q4 SC Last administered on 02/01/17 14:04; Admin Dose 2 UNIT; Start 01/26/17 at 17:00 Metoclopramide HCl (Reglan) 5 mg Q8H PRN IV VOMITTING; Start 01/26/17 at 15:30 Hydralazine HCl (Apresoline) 25 mg TID PRN GTB ELEVATED SYSTOLIC BP Last administered on 02/01/17 13:58; Admin Dose 25 MG; Start 01/27/17 at 07:00 Insulin Glargine (Lantus) 7 unit BID@08,20 SC Last administered on 02/01/17 08 :00; Admin Dose 7 UNIT; Start 01/28/17 at 08:00 Fulvestrant (Faslodex) 500 mg Q28D IM Last administered on 01/29/17 21:16; Admin Dose 500 MG; Start 01/29/17 at 21:00 Voriconazole (Vfend) 200 mg BID PO Last administered on 02/01/17 09:44; Admin Dose 200 MG; Start 01/31/17 at 21:00 Metoprolol Tartrate (Lopressor) 50 mg TID NGT Last administered on 02/01/17 13 :58; Admin Dose 50 MG; Start 01/31/17 at 21:00 Assessment/Plan Chief Complaint/Hosp Course Assessment: 1. s/p cardiopulmonary arrest: Most likely due to pulmonary arrest 2. P afib: now remains in persistent Afib. 3. History of renal failure status post renal transplant: now with KATI on CKD: currently requiring HD. 4. Acute on chronic hypoxemic hypercapnic respiratory failure status post reintubation: currently on the vent: AWAITING TRACH. 5. Shock: resolved now. 6. ANEMIA 7. breast cancer 8. HTN: 9. anxiety 10. DM 11. Hypothyroidism: on synthroid. 12. pleural effusion : s/p thoracentesis 13. Dysphagia: s/p PEG Recommendations: vent support for now anti- rejection medications to be adjusted as per renal team. HD as per renal. cont DM control thyroid supplement cont betablocker correct lytes prn with HD. cont tele monitoring transfusion prn CONT eliquis as long as no active bleeding . Thank you for this referral I will continue to follow along with you. AUGUSTINA MALDONADO MD [facility] Problems: AUGUSTINA MALDONADO MD Feb 01, 2017 18:11
[2017-02-01] MEDS: MIRTAZAPINE 15 MG TAB NGT SCH (21:22)
[2017-02-02] VITALS (31 sets, daily range): BP systolic 105–218; BP diastolic 46–95; PULSE 70–98; RESP 12–24
[2017-02-02] MEDS: INSULIN ASPART [NOVOLOG] 3 ML PEN SC SCH ×6 (01:47→21:00)
[2017-02-02] MEDS: ACCU-CHEK XX SCH ×2 (02:00)
[2017-02-02] MEDS: ALBUTEROL 18 GM INHALER INH SCH ×4 (02:07→20:02)
[2017-02-02] MEDS: IPRATROPIUM (HFA) 12.9 GM INHALER INH SCH ×4 (02:07→20:02)
[2017-02-02] MEDS: LEVOTHYROXINE 75 MCG TAB NGT SCH (06:13)
--- NOTE | 2017-02-02 07:29 | PN ---
DATE: 01/30/2017 SUBJECTIVE: The patient had hemodialysis yesterday, tolerated well with 2 liters removed. No other events noted. No hemoptysis, hematemesis or hematochezia. OBJECTIVE: VITAL SIGNS: Blood pressure is 150/69, respiration 18, pulse 82, temperature 98.7. HEENT: Head is normocephalic. NECK: Supple. HEART: Regular rate. LUNGS: Show diminished breath sounds at base. ABDOMEN: Soft, nontender to palpation without rebound or guarding. EXTREMITIES: Negative for clubbing, cyanosis, edema. DERMATOLOGIC: No rashes. MUSCULOSKELETAL: No joint effusions. NEUROLOGIC: No change in exam. MEDICATIONS: Reviewed. LABORATORY DATA: Shows a sodium 136, potassium 3.5, BUN 28, creatinine 2.35. White count 9.1, hemo globin 7.6, hematocrit , platelet count is 220. ASSESSMENT AND PLAN: 1. Oliguria, acute kidney injury on top of chronic allograft failure. Etiology of acute kidney inj ury is secondary to acute tubular necrosis. The patient is currently dialysis dependent, no signs o f renal recovery. Continue to monitor. 2. Hypertension. We will continue ultrafiltration dialysis. We will adjust the patient's blood pr essure medications. 3. Paroxysmal atrial fibrillation. Continue current medical management. 4. Ventilator-dependent respiratory failure, status post trach. Continue to monitor. Vent setting s have been reviewed. Follow up with pulmonary. 5. Sepsis, status post shock. The patient is completing antibiotic course. 6. Urinary tract infection. The patient continue on antifungal therapy. 7. End-stage renal disease with history of renal transplant and chronic allograft failure. The pat ient's current acute kidney injury as stated above. Continue current immunosuppressive regimen. Pr ograf levels have been checked. 8. Hypothyroidism. Continue Synthroid. 9. Anemia. Monitor hemoglobin and hematocrit levels. 10. Diabetes. Continue Accu-Cheks, insulin sliding scale. 11. Pulmonary hypertension. 12. Volume overload. Continue ultrafiltration with dialysis. 13. History of breast cancer. Continue Faslodex. 14. Dysphagia, status post PEG. Continue tube feeding. 15. Gastrointestinal and deep venous thrombosis prophylaxis. DISPOSITION: The patient is pending a Doss evaluation. Dictated By: SUSAN HERRON/AFSHAN Conf#: [id number] [facility]#: [id number]
[2017-02-02] MEDS: INSULIN GLARGINE [LANtus] 3 ML PEN SC SCH (08:00)
[2017-02-02] MEDS: BUDESONIDE (NEB) 0.25 MG/2 ML AMP NEB SCH ×2 (08:25→20:06)
[2017-02-02] MEDS: SILDENAFIL 20 MG TAB NGT SCH ×3 (09:00→22:23)
[2017-02-02] MEDS: METOPROLOL 50 MG TAB NGT SCH ×3 (09:00→21:00)
[2017-02-02] MEDS: ASCORBIC ACID 500 MG TAB NGT SCH ×2 (09:09→22:22)
[2017-02-02] MEDS: VORICONAZOLE 200 MG TAB PO SCH ×2 (09:09→22:22)
[2017-02-02] MEDS: predniSONE 5 MG TAB PO SCH (09:09)
[2017-02-02] MEDS: FAMOTIDINE 20 MG TAB NGT SCH (09:09)
[2017-02-02] MEDS: predniSONE 1 MG TAB PO SCH (09:09)
[2017-02-02] MEDS: APIXABAN 5 MG TABLET NGT SCH ×2 (09:09→22:23)
[2017-02-02] MEDS: LORATADINE 10 MG TAB NGT SCH (09:09)
[2017-02-02] MEDS: TACROLIMUS 1 MG CAP NGT SCH ×2 (09:09→22:21)
[2017-02-02] MEDS: SERTRALINE 50 MG TAB NGT SCH (09:09)
[2017-02-02] MEDS: OXCARBAZEPINE 300 MG TAB NGT SCH ×2 (09:09→22:22)
[2017-02-02] MEDS: FLUTICASONE 0.05% 16 GM NAS SPRAY NASAL SCH (09:10)
[2017-02-02] MEDS: BALSAM PERU/CASTOR OIL 60 GM TUBE TOP SCH (09:11)
--- NOTE | 2017-02-02 14:32 | CONS ---
Date/Time of Note Date/Time of Note DATE: 02/02/17 TIME: 14:30 Assessment/Plan Assessment/Plan Additional Assessment/Plan Ventilator setting; AC of 12, tidal volume 450, PEEP of 5, 30% FiO2. Assessment recommendations; 1. Patient admitted for sepsis with significant interval improvement. 2. Chronic respiratory failure. 3. History of chronic immunosuppression due to renal transplant with persistent renal insufficiency. Not requiring hemodialysis. 4. History of hypothyroidism. 5. History of hypertension. 6. History of diabetes. Continue current treatment. Consider discharge to rehab. Consultation Date/Type/Reason Admit Date/Time Jan 05, 2017 at 00:15 Initial Consult Date 01/05/17 Type of Consultation: Pulmonary Referring Provider: SUSAN SIMENTAL DO 24 HR Interval Summary Free Text/Dictation Patient's condition remains stable. Has remained hemodynamically stable. General exam; elderly woman, awake, currently in no distress. Exam/Review of Systems Vital Signs Vitals Vital Signs Date Time Temp Pulse Resp B/P Pulse Ox O2 Delivery O2 Flow Rate FiO2 02/02/17 13:20 82 18 99 30 02/02/17 11:06 98.4 142/79 01/30/17 20:00 Mechanical Ventilator Intake and Output 02/01/17 02/01/17 02/02/17 15:00 23:00 07:00 Intake Total 500 ml Output Total 400 ml Balance 100 ml Exam HEENT exam; supple neck, no JVD. No lymphadenopathy. Midline trachea. No thyromegaly. Patient has multiple carious teeth. Tracheostomy in place. Chest exam; diminished but clear breath sounds. S1-S2 audible, no murmurs. Regular rhythm. Abdomen exam; soft no organomegaly. Bowel sounds audible. G-tube in place. Extremity exam; no peripheral edema. [employer] COMPUT[employer]PER[employer] exam; is awake but appears lethargic. Results Result Diagram: 01/31/17 0548 01/31/17 0548 Results 24 hrs Laboratory Tests Test 02/01/17 18:06 02/01/17 20:36 02/02/17 01:31 02/02/17 05:50 Bedside Glucose 255 H 205 184 216 Test 02/02/17 09:03 02/02/17 12:40 Bedside Glucose 193 202 Medications Medications Current Medications Naloxone HCl (Narcan) 0.4 mg Q4 PRN IV SEDATION; Start 01/05/17 at 01:30 Bisacodyl (Dulcolax Supp) 10 mg DAILY MT Last administered on 01/26/17 09:57; Admin Dose 10 MG; Start 01/06/17 at 09:00; Status Future Hold Budesonide (Pulmicort (Neb)) 0.25 mg BID NEB Last administered on 02/02/17 08: 25; Admin Dose 0.25 MG; Start 01/05/17 at 10:30 Fluticasone Propionate (Flonase 0.05% Nasal) 1 spray DAILY NASAL Last administered on 02/02/17 09:10; Admin Dose 1 SPRAY; Start 01/05/17 at 11:00 Magnesium Hydroxide (Milk Of Mag) 30 ml BID PRN PO CONSTIPATION Last administered on 01/16/17 09:09; Admin Dose 30 ML; Start 01/05/17 at 10:30 Nitroglycerin (Nitroglycerin 2% Oint) 0.5 inch Q6 PRN TD CHEST PAIN; Start 03/13 at 10:30 Ondansetron HCl (Zofran Inj) 4 mg Q6H PRN IV NAUSEA Last administered on 00:01; Admin Dose 4 MG; Start 01/05/17 at 10:30 Prednisone (Prednisone) 5 mg DAILY PO Last administered on 02/02/17 09:09; Admin Dose 5 MG; Start 01/05/17 at 12:00 Prednisone (Prednisone) 3 mg DAILY PO Last administered on 02/02/17 09:09; Admin Dose 3 MG; Start 01/05/17 at 12:00 Miscellaneous Information 1 ea NOTE XX ; Start 01/05/17 at 11:00 Glucose (Glutose) 15 gm Q15M PRN PO DECREASED GLUCOSE; Start 01/05/17 at 11:00 Glucose (Glutose) 22.5 gm Q15M PRN PO DECREASED GLUCOSE; Start 01/05/17 at 11: 00 Dextrose (D50w Syringe) 25 ml Q15M PRN IV DECREASED GLUCOSE Last administered on 01/23/17 03:45; Admin Dose 25 ML; Start 01/05/17 at 11:00 Dextrose (D50w Syringe) 50 ml Q15M PRN IV DECREASED GLUCOSE Last administered on 01/08/17 21:33; Admin Dose 50 ML; Start 01/05/17 at 11:00 Glucagon (Glucagen) 1 mg Q15M PRN IM DECREASED GLUCOSE Last administered on 21:08; Admin Dose 1 MG; Start 01/05/17 at 11:00 Glucose (Glutose) 15 gm Q15M PRN BUCCAL DECREASED GLUCOSE Last administered on 01/23/17 21:36; Admin Dose 15 GM; Start 01/05/17 at 11:00 Bumetanide (Bumex) 1 mg BID IV Last administered on 01/13/17 21:06; Admin Dose 1 MG; Start 01/08/17 at 09:00; Status Future Hold Acetaminophen (Tylenol Tab) 650 mg Q6H PRN NGT PAIN AND OR ELEVATED TEMP Last administered on 01/28/17 20:48; Admin Dose 650 MG; Start 01/17/17 at 22:30 Apixaban (Eliquis) 2.5 mg BID NGT Last administered on 02/02/17 09:09; Admin Dose 2.5 MG; Start 01/17/17 at 21:00; Status Future hold Ascorbic Acid (Vitamin C) 500 mg BID NGT Last administered on 02/02/17 09:09; Admin Dose 500 MG; Start 01/17/17 at 21:00 Levothyroxine Sodium (Synthroid) 75 mcg DAILY@06 NGT Last administered on 06:13; Admin Dose 75 MCG; Start 01/18/17 at 06:00 Loratadine (Claritin) 10 mg DAILY NGT Last administered on 02/02/17 09:09; Admin Dose 10 MG; Start 01/18/17 at 09:00 Mirtazapine (Remeron) 15 mg HS NGT Last administered on 02/01/17 21:22; Admin Dose 15 MG; Start 01/17/17 at 21:00 Oxcarbazepine (Trileptal) 600 mg BID NGT Last administered on 02/02/17 09:09; Admin Dose 600 MG; Start 01/17/17 at 21:00 Senna (Senokot) 1 tab HS NGT Last administered on 01/25/17 20:06; Admin Dose 1 TAB; Start 01/17/17 at 21:00; Status Future Hold Sertraline HCl (Zoloft) 75 mg DAILY NGT Last administered on 02/02/17 09:09; Admin Dose 75 MG; Start 01/18/17 at 09:00 Sildenafil Citrate (Revatio) 20 mg TID NGT Last administered on 02/01/17 21:00 ; Admin Dose 20 MG; Start 01/17/17 at 21:00 Docusate Sodium (Colace Liquid Cup) 100 mg BID NGT Last administered on 09:55; Admin Dose 100 MG; Start 01/17/17 at 21:00; Status Future Hold Famotidine (Pepcid) 20 mg DAILY NGT Last administered on 02/02/17 09:09; Admin Dose 20 MG; Start 01/20/17 at 09:00 Lorazepam (Ativan) 1 mg Q6H PRN IV anxiety Last administered on 01/29/17 14:52 ; Admin Dose 1 MG; Start 01/22/17 at 09:00 Tacrolimus (Prograf) 2 mg QPM NGT Last administered on 02/01/17 21:21; Admin Dose 2 MG; Start 01/24/17 at 21:00 Diagnostic Test (Pha) (Accu-Chek) 1 ea 02 XX Last administered on 02/02/17 02: 00; Admin Dose 1 EA; Start 01/26/17 at 02:00 Diagnostic Test (Pha) (Accu-Chek) 1 ea 02 XX Last administered on 02/02/17 02: 00; Admin Dose 1 EA; Start 01/27/17 at 02:00 Insulin Aspart (Novolog Insulin Pen) NOVOLOG *MODERATE* ALGORI... Q4 SC Last administered on 02/02/17 12:56; Admin Dose 4 UNIT; Start 01/26/17 at 17:00 Metoclopramide HCl (Reglan) 5 mg Q8H PRN IV VOMITTING; Start 01/26/17 at 15:30 Hydralazine HCl (Apresoline) 25 mg TID PRN GTB ELEVATED SYSTOLIC BP Last administered on 02/01/17 13:58; Admin Dose 25 MG; Start 01/27/17 at 07:00 Fulvestrant (Faslodex) 500 mg Q28D IM Last administered on 01/29/17 21:16; Admin Dose 500 MG; Start 01/29/17 at 21:00 Voriconazole (Vfend) 200 mg BID PO Last administered on 02/02/17 09:09; Admin Dose 200 MG; Start 01/31/17 at 21:00 Metoprolol Tartrate (Lopressor) 50 mg TID NGT Last administered on 02/01/17 21 :23; Admin Dose 50 MG; Start 01/31/17 at 21:00 Insulin Glargine (Lantus) 20 unit 08 SC Last administered on 02/02/17 08:00; Admin Dose 20 UNIT; Start 02/02/17 at 08:00 JOELLE INFANTE Feb 02, 2017 14:32
--- NOTE | 2017-02-02 14:57 | PN ---
Date/Time of Note Date/Time of Note DATE: 02/02/17 TIME: 14:55 Assessment/Plan VTE Prophylaxis VTE Prophylaxis Intervention: other Lines/Catheters IV [facility] Type (from [facility]): PICC Line Central line still needed: Yes Urinary Cath still in place: Yes Reason Cath still needed: urinary retention Assessment/Plan Chief Complaint/Hosp Course SUBJECTIVE: The patient is stable. No events overnight. No fevers, chills, nausea, vomiting. Patient had hemodialysis yesterday, tolerated well with 3 liters removed. No other acute events noted. No hemoptysis, hematemesis or hematochezia. no reports of melena, hematuria, new rash, dyspnea, fever, chill or diaphoresis vent settings were reviewed d/w Dr Rosenthal remains oliguric OBJECTIVE: HEENT: Head is normocephalic. NECK: Supple. HEART: Regular rate. LUNGS: Show diminished breath sounds at base. ABDOMEN: Soft, nontender to palpation. No rebound or guarding. EXTREMITIES: Negative for clubbing, cyanosis. Positive edema. DERMATOLOGIC: No rashes. MUSCULOSKELETAL: No joint effusions. NEUROLOGIC: No change in exam. MEDICATIONS: Reviewed. OBJECTIVE DATA: HEENT: Head is normocephalic. Pupils are reactive to light. NECK: Supple. HEART: Regular rate. LUNGS: Showed diminished breath sounds at the base. ABDOMEN: Soft. Nontender to palpation. No rebound or guarding. EXTREMITIES: Negative for clubbing, cyanosis. No edema. DERMATOLOGIC: Clean. No rashes. MUSCULOSKELETAL: No joint effusion. NEUROLOGIC: No focal deficits. MEDICATIONS, labs, previous orders, nurses' care plans: Reviewed. 1. 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 Etiology of acute kidney injury is secondary to acute tubular necrosis. The patient is currently dialysis dependent, no signs of recovery. Continue intermittent dialysis 2. Hyponatremia. will adjust dialysate 3. Hypokalemia, replete with potassium chloride. 4. Paroxysmal atrial fibrillation, continue current medical management and follow up with cardiology. 5. Sepsis, status post shock secondary to pneumonia. The patient is completing antibiotic course. 6. Leukocytosis, likely due to stress and demargination. Will continue to monitor closely. Follow up with Infectious Disease. 7. Fungal urinary tract infection. The patient is status post antifungal therapy. 8. 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 The patient's current acute kidney injury as stated above. Continue current immunosuppressive regimen. Prograf levels within acceptable range. 9. Hypothyroidism. Continue Synthroid. 10. Anemia. Continue to monitor hemoglobin and hematocrit levels. 11. Diabetes. Continue Accu-Cheks and insulin sliding scale. 12. Pulmonary hypertension. Continue current medical management. 13. End-stage dependent respiratory failure, status post tracheostomy, vent settings have been reviewed. Continue to monitor. 14. Volume overload. Continue ultrafiltration with dialysis. 15. Dysphagia, status post PEG, continue tube feeding. 16. History of breast cancer. Follow up with hematology. The patient is on Faslodex. 17. Pleural effusion. The patient's cytology was negative. 18. History of breast cancer with lung metastasis. The patient is on medical management. on Faslodex as outpt Problems: Exam/Review of Systems Vital Signs Vitals Vital Signs Date Time Temp Pulse Resp B/P Pulse Ox O2 Delivery O2 Flow Rate FiO2 02/02/17 13:20 82 18 99 30 02/02/17 11:06 98.4 142/79 01/30/17 20:00 Mechanical Ventilator Intake and Output 02/01/17 02/01/17 02/02/17 15:00 23:00 07:00 Intake Total 500 ml Output Total 400 ml Balance 100 ml Results Result Diagram: 01/31/17 0548 01/31/17 0548 Results 24 hrs Laboratory Tests Test 02/01/17 18:06 02/01/17 20:36 02/02/17 01:31 02/02/17 05:50 Bedside Glucose 255 H 205 184 216 Test 02/02/17 09:03 02/02/17 12:40 Bedside Glucose 193 202 Medications Medications Current Medications Naloxone HCl (Narcan) 0.4 mg Q4 PRN IV SEDATION; Start 01/05/17 at 01:30 Bisacodyl (Dulcolax Supp) 10 mg DAILY OR Last administered on 01/26/17 09:57; Admin Dose 10 MG; Start 01/06/17 at 09:00; Status Future Hold Budesonide (Pulmicort (Neb)) 0.25 mg BID NEB Last administered on 02/02/17 08: 25; Admin Dose 0.25 MG; Start 01/05/17 at 10:30 Fluticasone Propionate (Flonase 0.05% Nasal) 1 spray DAILY NASAL Last administered on 02/02/17 09:10; Admin Dose 1 SPRAY; Start 01/05/17 at 11:00 Magnesium Hydroxide (Milk Of Mag) 30 ml BID PRN PO CONSTIPATION Last administered on 01/16/17 09:09; Admin Dose 30 ML; Start 01/05/17 at 10:30 Nitroglycerin (Nitroglycerin 2% Oint) 0.5 inch Q6 PRN TD CHEST PAIN; Start 03/13 at 10:30 Ondansetron HCl (Zofran Inj) 4 mg Q6H PRN IV NAUSEA Last administered on 00:01; Admin Dose 4 MG; Start 01/05/17 at 10:30 Prednisone (Prednisone) 5 mg DAILY PO Last administered on 02/02/17 09:09; Admin Dose 5 MG; Start 01/05/17 at 12:00 Prednisone (Prednisone) 3 mg DAILY PO Last administered on 02/02/17 09:09; Admin Dose 3 MG; Start 01/05/17 at 12:00 Miscellaneous Information 1 ea NOTE XX ; Start 01/05/17 at 11:00 Glucose (Glutose) 15 gm Q15M PRN PO DECREASED GLUCOSE; Start 01/05/17 at 11:00 Glucose (Glutose) 22.5 gm Q15M PRN PO DECREASED GLUCOSE; Start 01/05/17 at 11: 00 Dextrose (D50w Syringe) 25 ml Q15M PRN IV DECREASED GLUCOSE Last administered on 01/23/17 03:45; Admin Dose 25 ML; Start 01/05/17 at 11:00 Dextrose (D50w Syringe) 50 ml Q15M PRN IV DECREASED GLUCOSE Last administered on 01/08/17 21:33; Admin Dose 50 ML; Start 01/05/17 at 11:00 Glucagon (Glucagen) 1 mg Q15M PRN IM DECREASED GLUCOSE Last administered on 21:08; Admin Dose 1 MG; Start 01/05/17 at 11:00 Glucose (Glutose) 15 gm Q15M PRN BUCCAL DECREASED GLUCOSE Last administered on 01/23/17 21:36; Admin Dose 15 GM; Start 01/05/17 at 11:00 Bumetanide (Bumex) 1 mg BID IV Last administered on 01/13/17 21:06; Admin Dose 1 MG; Start 01/08/17 at 09:00; Status Future Hold Acetaminophen (Tylenol Tab) 650 mg Q6H PRN NGT PAIN AND OR ELEVATED TEMP Last administered on 01/28/17 20:48; Admin Dose 650 MG; Start 01/17/17 at 22:30 Apixaban (Eliquis) 2.5 mg BID NGT Last administered on 02/02/17 09:09; Admin Dose 2.5 MG; Start 01/17/17 at 21:00; Status Future hold Ascorbic Acid (Vitamin C) 500 mg BID NGT Last administered on 02/02/17 09:09; Admin Dose 500 MG; Start 01/17/17 at 21:00 Levothyroxine Sodium (Synthroid) 75 mcg DAILY@06 NGT Last administered on 06:13; Admin Dose 75 MCG; Start 01/18/17 at 06:00 Loratadine (Claritin) 10 mg DAILY NGT Last administered on 02/02/17 09:09; Admin Dose 10 MG; Start 01/18/17 at 09:00 Mirtazapine (Remeron) 15 mg HS NGT Last administered on 02/01/17 21:22; Admin Dose 15 MG; Start 01/17/17 at 21:00 Oxcarbazepine (Trileptal) 600 mg BID NGT Last administered on 02/02/17 09:09; Admin Dose 600 MG; Start 01/17/17 at 21:00 Senna (Senokot) 1 tab HS NGT Last administered on 01/25/17 20:06; Admin Dose 1 TAB; Start 01/17/17 at 21:00; Status Future Hold Sertraline HCl (Zoloft) 75 mg DAILY NGT Last administered on 02/02/17 09:09; Admin Dose 75 MG; Start 01/18/17 at 09:00 Sildenafil Citrate (Revatio) 20 mg TID NGT Last administered on 02/01/17 21:00 ; Admin Dose 20 MG; Start 01/17/17 at 21:00 Docusate Sodium (Colace Liquid Cup) 100 mg BID NGT Last administered on 09:55; Admin Dose 100 MG; Start 01/17/17 at 21:00; Status Future Hold Famotidine (Pepcid) 20 mg DAILY NGT Last administered on 02/02/17 09:09; Admin Dose 20 MG; Start 01/20/17 at 09:00 Lorazepam (Ativan) 1 mg Q6H PRN IV anxiety Last administered on 01/29/17 14:52 ; Admin Dose 1 MG; Start 01/22/17 at 09:00 Tacrolimus (Prograf) 2 mg QPM NGT Last administered on 02/01/17 21:21; Admin Dose 2 MG; Start 01/24/17 at 21:00 Diagnostic Test (Pha) (Accu-Chek) 1 ea 02 XX Last administered on 02/02/17 02: 00; Admin Dose 1 EA; Start 01/26/17 at 02:00 Diagnostic Test (Pha) (Accu-Chek) 1 ea 02 XX Last administered on 02/02/17 02: 00; Admin Dose 1 EA; Start 01/27/17 at 02:00 Insulin Aspart (Novolog Insulin Pen) NOVOLOG *MODERATE* ALGORI... Q4 SC Last administered on 02/02/17 12:56; Admin Dose 4 UNIT; Start 01/26/17 at 17:00 Metoclopramide HCl (Reglan) 5 mg Q8H PRN IV VOMITTING; Start 01/26/17 at 15:30 Hydralazine HCl (Apresoline) 25 mg TID PRN GTB ELEVATED SYSTOLIC BP Last administered on 02/01/17 13:58; Admin Dose 25 MG; Start 01/27/17 at 07:00 Fulvestrant (Faslodex) 500 mg Q28D IM Last administered on 01/29/17 21:16; Admin Dose 500 MG; Start 01/29/17 at 21:00 Voriconazole (Vfend) 200 mg BID PO Last administered on 02/02/17 09:09; Admin Dose 200 MG; Start 01/31/17 at 21:00 Metoprolol Tartrate (Lopressor) 50 mg TID NGT Last administered on 02/01/17 21 :23; Admin Dose 50 MG; Start 01/31/17 at 21:00 Insulin Glargine (Lantus) 20 unit 08 SC Last administered on 02/02/17 08:00; Admin Dose 20 UNIT; Start 02/02/17 at 08:00 MICHAEL GALICIA DO Feb 02, 2017 14:57
--- NOTE | 2017-02-02 15:12 | CONS ---
Date/Time of Note Date/Time of Note DATE: 02/02/17 TIME: 14:57 Consultation Date/Type/Reason Admit Date/Time Jan 05, 2017 at 00:15 Initial Consult Date Chief Complaint/Hosp Course SUBJECTIVE: Awake, looks comfortable, no fevers. VS: BP: 142/79 HR: 71 R: 16 T: 98.4 SO2:100% LABS: none for today. Repeat UA culture: URINE CULTURE Preliminary Organism 1 YEAST COLONY COUNT >100,000 CFU/ml INDWELLINGS: Trach, PEG, [place], right IJ Bandar. PHYSICAL EXAMINATION: GENERAL: This is a fragile, chronically ill-appearing, elderly woman who is awake, in no distress. HEENT: Head atraumatic, normocephalic. Sclerae anicteric. Buccal mucosa dry. NECK: Supple. Tracheostomy present. CHEST: Rise symmetrical. Breath sounds diminished to bases. HEART: S1, S2. ABDOMEN: Soft, bowel sounds present. EXTREMITIES: Without cyanosis. Bilateral trace edema. ASSESSMENT: 1. Status post sepsis. 2. Urinary tract infection 3. Pneumonia. 4. Acute respiratory failure. 5. Acute on chronic kidney disease, now on hemodialysis. 6. History of kidney transplant, remains on immunosuppressive therapy. 7. Dysphagia with GTube feeding 8. Anemia. 9. Cloudy urine with sediment PLAN: The patient remains stable. Continue Vfend. Type of Consultation: ID Referring Provider: SUSAN SIMENTAL DO Exam/Review of Systems Vital Signs Vitals Vital Signs Date Time Temp Pulse Resp B/P Pulse Ox O2 Delivery O2 Flow Rate FiO2 02/02/17 13:20 82 18 99 30 02/02/17 11:06 98.4 142/79 01/30/17 20:00 Mechanical Ventilator Intake and Output 02/01/17 02/01/17 02/02/17 15:00 23:00 07:00 Intake Total 500 ml Output Total 400 ml Balance 100 ml Results Result Diagram: 01/31/17 0548 01/31/17 0548 Results 24 hrs Laboratory Tests Test 02/01/17 18:06 02/01/17 20:36 02/02/17 01:31 02/02/17 05:50 Bedside Glucose 255 H 205 184 216 Test 02/02/17 09:03 02/02/17 12:40 Bedside Glucose 193 202 Medications Medications Current Medications Naloxone HCl (Narcan) 0.4 mg Q4 PRN IV SEDATION; Start 01/05/17 at 01:30 Bisacodyl (Dulcolax Supp) 10 mg DAILY ME Last administered on 01/26/17 09:57; Admin Dose 10 MG; Start 01/06/17 at 09:00; Status Future Hold Budesonide (Pulmicort (Neb)) 0.25 mg BID NEB Last administered on 02/02/17 08: 25; Admin Dose 0.25 MG; Start 01/05/17 at 10:30 Fluticasone Propionate (Flonase 0.05% Nasal) 1 spray DAILY NASAL Last administered on 02/02/17 09:10; Admin Dose 1 SPRAY; Start 01/05/17 at 11:00 Magnesium Hydroxide (Milk Of Mag) 30 ml BID PRN PO CONSTIPATION Last administered on 01/16/17 09:09; Admin Dose 30 ML; Start 01/05/17 at 10:30 Nitroglycerin (Nitroglycerin 2% Oint) 0.5 inch Q6 PRN TD CHEST PAIN; Start 03/13 at 10:30 Ondansetron HCl (Zofran Inj) 4 mg Q6H PRN IV NAUSEA Last administered on 00:01; Admin Dose 4 MG; Start 01/05/17 at 10:30 Prednisone (Prednisone) 5 mg DAILY PO Last administered on 02/02/17 09:09; Admin Dose 5 MG; Start 01/05/17 at 12:00 Prednisone (Prednisone) 3 mg DAILY PO Last administered on 02/02/17 09:09; Admin Dose 3 MG; Start 01/05/17 at 12:00 Miscellaneous Information 1 ea NOTE XX ; Start 01/05/17 at 11:00 Glucose (Glutose) 15 gm Q15M PRN PO DECREASED GLUCOSE; Start 01/05/17 at 11:00 Glucose (Glutose) 22.5 gm Q15M PRN PO DECREASED GLUCOSE; Start 01/05/17 at 11: 00 Dextrose (D50w Syringe) 25 ml Q15M PRN IV DECREASED GLUCOSE Last administered on 01/23/17 03:45; Admin Dose 25 ML; Start 01/05/17 at 11:00 Dextrose (D50w Syringe) 50 ml Q15M PRN IV DECREASED GLUCOSE Last administered on 01/08/17 21:33; Admin Dose 50 ML; Start 01/05/17 at 11:00 Glucagon (Glucagen) 1 mg Q15M PRN IM DECREASED GLUCOSE Last administered on 21:08; Admin Dose 1 MG; Start 01/05/17 at 11:00 Glucose (Glutose) 15 gm Q15M PRN BUCCAL DECREASED GLUCOSE Last administered on 01/23/17 21:36; Admin Dose 15 GM; Start 01/05/17 at 11:00 Bumetanide (Bumex) 1 mg BID IV Last administered on 01/13/17 21:06; Admin Dose 1 MG; Start 01/08/17 at 09:00; Status Future Hold Acetaminophen (Tylenol Tab) 650 mg Q6H PRN NGT PAIN AND OR ELEVATED TEMP Last administered on 01/28/17 20:48; Admin Dose 650 MG; Start 01/17/17 at 22:30 Apixaban (Eliquis) 2.5 mg BID NGT Last administered on 02/02/17 09:09; Admin Dose 2.5 MG; Start 01/17/17 at 21:00; Status Future hold Ascorbic Acid (Vitamin C) 500 mg BID NGT Last administered on 02/02/17 09:09; Admin Dose 500 MG; Start 01/17/17 at 21:00 Levothyroxine Sodium (Synthroid) 75 mcg DAILY@06 NGT Last administered on 06:13; Admin Dose 75 MCG; Start 01/18/17 at 06:00 Loratadine (Claritin) 10 mg DAILY NGT Last administered on 02/02/17 09:09; Admin Dose 10 MG; Start 01/18/17 at 09:00 Mirtazapine (Remeron) 15 mg HS NGT Last administered on 02/01/17 21:22; Admin Dose 15 MG; Start 01/17/17 at 21:00 Oxcarbazepine (Trileptal) 600 mg BID NGT Last administered on 02/02/17 09:09; Admin Dose 600 MG; Start 01/17/17 at 21:00 Senna (Senokot) 1 tab HS NGT Last administered on 01/25/17 20:06; Admin Dose 1 TAB; Start 01/17/17 at 21:00; Status Future Hold Sertraline HCl (Zoloft) 75 mg DAILY NGT Last administered on 02/02/17 09:09; Admin Dose 75 MG; Start 01/18/17 at 09:00 Sildenafil Citrate (Revatio) 20 mg TID NGT Last administered on 02/01/17 21:00 ; Admin Dose 20 MG; Start 01/17/17 at 21:00 Docusate Sodium (Colace Liquid Cup) 100 mg BID NGT Last administered on 09:55; Admin Dose 100 MG; Start 01/17/17 at 21:00; Status Future Hold Famotidine (Pepcid) 20 mg DAILY NGT Last administered on 02/02/17 09:09; Admin Dose 20 MG; Start 01/20/17 at 09:00 Lorazepam (Ativan) 1 mg Q6H PRN IV anxiety Last administered on 01/29/17 14:52 ; Admin Dose 1 MG; Start 01/22/17 at 09:00 Tacrolimus (Prograf) 2 mg QPM NGT Last administered on 02/01/17 21:21; Admin Dose 2 MG; Start 01/24/17 at 21:00 Diagnostic Test (Pha) (Accu-Chek) 1 ea 02 XX Last administered on 02/02/17 02: 00; Admin Dose 1 EA; Start 01/26/17 at 02:00 Diagnostic Test (Pha) (Accu-Chek) 1 ea 02 XX Last administered on 02/02/17 02: 00; Admin Dose 1 EA; Start 01/27/17 at 02:00 Insulin Aspart (Novolog Insulin Pen) NOVOLOG *MODERATE* ALGORI... Q4 SC Last administered on 02/02/17 12:56; Admin Dose 4 UNIT; Start 01/26/17 at 17:00 Metoclopramide HCl (Reglan) 5 mg Q8H PRN IV VOMITTING; Start 01/26/17 at 15:30 Hydralazine HCl (Apresoline) 25 mg TID PRN GTB ELEVATED SYSTOLIC BP Last administered on 02/01/17 13:58; Admin Dose 25 MG; Start 01/27/17 at 07:00 Fulvestrant (Faslodex) 500 mg Q28D IM Last administered on 01/29/17 21:16; Admin Dose 500 MG; Start 01/29/17 at 21:00 Voriconazole (Vfend) 200 mg BID PO Last administered on 02/02/17 09:09; Admin Dose 200 MG; Start 01/31/17 at 21:00 Metoprolol Tartrate (Lopressor) 50 mg TID NGT Last administered on 02/01/17 21 :23; Admin Dose 50 MG; Start 01/31/17 at 21:00 Insulin Glargine (Lantus) 20 unit 08 SC Last administered on 02/02/17 08:00; Admin Dose 20 UNIT; Start 02/02/17 at 08:00 SUGAR GIRARD Feb 02, 2017 15:07
--- NOTE | 2017-02-02 17:44 | CONS ---
Date/Time of Note Date/Time of Note DATE: 02/02/17 TIME: 17:41 Consult Date/Type/Reason Admit Date/Time Jan 05, 2017 at 00:15 Initial Consult Date 01/05/17 Type of Consultation: CARDIOLOGY Reason for Consultation CARDIOLOGY FOLLOW UP NOTE: D/W Staff and rhythm was reviewed. pt has remained in Afib. HR has been stable BP has been stable pt still remains on vent. s/p trach. NO reports of any chest pain or pressure S/P PEG 01/19/17 S/P Trach 01/27/17 pt is nonverbal on vent. OBJECTIVE: General: s/p trach on vent. HEENT: NC/AT. pupils are equal. round. NECK: s/p trach. no stridor. CV:irregularly irregular. systolic murmur; no gallop or rubs. PULM: no wheezing, + mild rhonchi. GI: SOFT, NT, ND, no rebound or guarding S/P PEG Extremity: trace B/L LE edema. no clubbing. neuro: awake. . Psych: unable to assess rectal: deferred : normal ECHO 12/16/16: Personally reviewed 1. Normal left ventricular systolic function. Normal left ventricular cavity size. Moderate concentric left ventricular hypertrophy. Ejection fraction is visually estimated at 65 %. Abnormal Diastolic Function. 2. There is moderate enlargement of left atrium. 3. Mild mitral leaflet calcification. Mild mitral annular calcification. Trace mitral regurgitation. 4. Aortic sclerosis without stenosis. Trace aortic valve regurgitation. 5. Normal appearance of the tricuspid valve. Estimated peak PA systolic pressure 38 mmHg. There is mild tricuspid regurgitation. Ordering Provider: SUSAN SIMENTAL DO Objective Vital Signs Date Time Temp Pulse Resp B/P Pulse Ox O2 Delivery O2 Flow Rate FiO2 02/02/17 16:30 90 02/02/17 15:21 98.2 22 128/83 97 02/02/17 15:20 30 01/30/17 20:00 Mechanical Ventilator Intake and Output 02/01/17 02/01/17 02/02/17 15:00 23:00 07:00 Intake Total 500 ml Output Total 400 ml Balance 100 ml Results/Medications Result Diagram: 01/31/17 0548 01/31/17 0548 Results 24 hrs Laboratory Tests Test 02/01/17 18:06 02/01/17 20:36 02/02/17 01:31 02/02/17 05:50 Bedside Glucose 255 H 205 184 216 Test 02/02/17 09:03 02/02/17 12:40 Bedside Glucose 193 202 Medications Current Medications Naloxone HCl (Narcan) 0.4 mg Q4 PRN IV SEDATION; Start 01/05/17 at 01:30 Bisacodyl (Dulcolax Supp) 10 mg DAILY OK Last administered on 01/26/17 09:57; Admin Dose 10 MG; Start 01/06/17 at 09:00; Status Future Hold Budesonide (Pulmicort (Neb)) 0.25 mg BID NEB Last administered on 02/02/17 08: 25; Admin Dose 0.25 MG; Start 01/05/17 at 10:30 Fluticasone Propionate (Flonase 0.05% Nasal) 1 spray DAILY NASAL Last administered on 02/02/17 09:10; Admin Dose 1 SPRAY; Start 01/05/17 at 11:00 Magnesium Hydroxide (Milk Of Mag) 30 ml BID PRN PO CONSTIPATION Last administered on 01/16/17 09:09; Admin Dose 30 ML; Start 01/05/17 at 10:30 Nitroglycerin (Nitroglycerin 2% Oint) 0.5 inch Q6 PRN TD CHEST PAIN; Start 03/13 at 10:30 Ondansetron HCl (Zofran Inj) 4 mg Q6H PRN IV NAUSEA Last administered on 00:01; Admin Dose 4 MG; Start 01/05/17 at 10:30 Prednisone (Prednisone) 5 mg DAILY PO Last administered on 02/02/17 09:09; Admin Dose 5 MG; Start 01/05/17 at 12:00 Prednisone (Prednisone) 3 mg DAILY PO Last administered on 02/02/17 09:09; Admin Dose 3 MG; Start 01/05/17 at 12:00 Miscellaneous Information 1 ea NOTE XX ; Start 01/05/17 at 11:00 Glucose (Glutose) 15 gm Q15M PRN PO DECREASED GLUCOSE; Start 01/05/17 at 11:00 Glucose (Glutose) 22.5 gm Q15M PRN PO DECREASED GLUCOSE; Start 01/05/17 at 11: 00 Dextrose (D50w Syringe) 25 ml Q15M PRN IV DECREASED GLUCOSE Last administered on 01/23/17 03:45; Admin Dose 25 ML; Start 01/05/17 at 11:00 Dextrose (D50w Syringe) 50 ml Q15M PRN IV DECREASED GLUCOSE Last administered on 01/08/17 21:33; Admin Dose 50 ML; Start 01/05/17 at 11:00 Glucagon (Glucagen) 1 mg Q15M PRN IM DECREASED GLUCOSE Last administered on 21:08; Admin Dose 1 MG; Start 01/05/17 at 11:00 Glucose (Glutose) 15 gm Q15M PRN BUCCAL DECREASED GLUCOSE Last administered on 01/23/17 21:36; Admin Dose 15 GM; Start 01/05/17 at 11:00 Bumetanide (Bumex) 1 mg BID IV Last administered on 01/13/17 21:06; Admin Dose 1 MG; Start 01/08/17 at 09:00; Status Future Hold Acetaminophen (Tylenol Tab) 650 mg Q6H PRN NGT PAIN AND OR ELEVATED TEMP Last administered on 01/28/17 20:48; Admin Dose 650 MG; Start 01/17/17 at 22:30 Apixaban (Eliquis) 2.5 mg BID NGT Last administered on 02/02/17 09:09; Admin Dose 2.5 MG; Start 01/17/17 at 21:00; Status Future hold Ascorbic Acid (Vitamin C) 500 mg BID NGT Last administered on 02/02/17 09:09; Admin Dose 500 MG; Start 01/17/17 at 21:00 Levothyroxine Sodium (Synthroid) 75 mcg DAILY@06 NGT Last administered on 06:13; Admin Dose 75 MCG; Start 01/18/17 at 06:00 Loratadine (Claritin) 10 mg DAILY NGT Last administered on 02/02/17 09:09; Admin Dose 10 MG; Start 01/18/17 at 09:00 Mirtazapine (Remeron) 15 mg HS NGT Last administered on 02/01/17 21:22; Admin Dose 15 MG; Start 01/17/17 at 21:00 Oxcarbazepine (Trileptal) 600 mg BID NGT Last administered on 02/02/17 09:09; Admin Dose 600 MG; Start 01/17/17 at 21:00 Senna (Senokot) 1 tab HS NGT Last administered on 01/25/17 20:06; Admin Dose 1 TAB; Start 01/17/17 at 21:00; Status Future Hold Sertraline HCl (Zoloft) 75 mg DAILY NGT Last administered on 02/02/17 09:09; Admin Dose 75 MG; Start 01/18/17 at 09:00 Sildenafil Citrate (Revatio) 20 mg TID NGT Last administered on 02/01/17 21:00 ; Admin Dose 20 MG; Start 01/17/17 at 21:00 Docusate Sodium (Colace Liquid Cup) 100 mg BID NGT Last administered on 09:55; Admin Dose 100 MG; Start 01/17/17 at 21:00; Status Future Hold Famotidine (Pepcid) 20 mg DAILY NGT Last administered on 02/02/17 09:09; Admin Dose 20 MG; Start 01/20/17 at 09:00 Lorazepam (Ativan) 1 mg Q6H PRN IV anxiety Last administered on 01/29/17 14:52 ; Admin Dose 1 MG; Start 01/22/17 at 09:00 Tacrolimus (Prograf) 2 mg QPM NGT Last administered on 02/01/17 21:21; Admin Dose 2 MG; Start 01/24/17 at 21:00 Diagnostic Test (Pha) (Accu-Chek) 1 ea 02 XX Last administered on 02/02/17 02: 00; Admin Dose 1 EA; Start 01/26/17 at 02:00 Diagnostic Test (Pha) (Accu-Chek) 1 ea 02 XX Last administered on 02/02/17 02: 00; Admin Dose 1 EA; Start 01/27/17 at 02:00 Insulin Aspart (Novolog Insulin Pen) NOVOLOG *MODERATE* ALGORI... Q4 SC Last administered on 02/02/17 12:56; Admin Dose 4 UNIT; Start 01/26/17 at 17:00 Metoclopramide HCl (Reglan) 5 mg Q8H PRN IV VOMITTING; Start 01/26/17 at 15:30 Hydralazine HCl (Apresoline) 25 mg TID PRN GTB ELEVATED SYSTOLIC BP Last administered on 02/01/17 13:58; Admin Dose 25 MG; Start 01/27/17 at 07:00 Fulvestrant (Faslodex) 500 mg Q28D IM Last administered on 01/29/17 21:16; Admin Dose 500 MG; Start 01/29/17 at 21:00 Voriconazole (Vfend) 200 mg BID PO Last administered on 02/02/17 09:09; Admin Dose 200 MG; Start 01/31/17 at 21:00 Metoprolol Tartrate (Lopressor) 50 mg TID NGT Last administered on 02/01/17 21 :23; Admin Dose 50 MG; Start 01/31/17 at 21:00 Insulin Glargine (Lantus) 20 unit 08 SC Last administered on 02/02/17 08:00; Admin Dose 20 UNIT; Start 02/02/17 at 08:00 Assessment/Plan Chief Complaint/Hosp Course Assessment: 1. s/p cardiopulmonary arrest: Most likely due to pulmonary arrest 2. P afib: now remains in persistent Afib. 3. History of renal failure status post renal transplant: now with KATI on CKD: currently requiring HD. 4. Acute on chronic hypoxemic hypercapnic respiratory failure status post reintubation: currently on the vent: AWAITING TRACH. 5. Shock: resolved now. BP is stable 6. ANEMIA 7. breast cancer 8. HTN: 9. anxiety 10. DM 11. Hypothyroidism: on synthroid. 12. pleural effusion : s/p thoracentesis 13. Dysphagia: s/p PEG Recommendations: vent support for now anti- rejection medications to be adjusted as per renal team. HD as per renal. cont DM control thyroid supplement cont betablocker at current dose correct lytes prn with HD. cont tele monitoring transfusion prn CONT eliquis as long as no active bleeding . Thank you for this referral I will continue to follow along with you. AUGUSTINA MALDONADO MD [facility] Problems: AUGUSTINA MALDONADO MD Feb 02, 2017 17:44
[2017-02-02] MEDS: MIRTAZAPINE 15 MG TAB NGT SCH (22:22)
[2017-02-03] VITALS (24 sets, daily range): BP systolic 92–145; BP diastolic 56–83; PULSE 70–107; RESP 12–22
[2017-02-03] MEDS: INSULIN ASPART [NOVOLOG] 3 ML PEN SC SCH ×6 (02:00→21:48)
[2017-02-03] MEDS: ALBUTEROL 18 GM INHALER INH SCH ×4 (03:16→19:06)
[2017-02-03] MEDS: IPRATROPIUM (HFA) 12.9 GM INHALER INH SCH ×5 (03:16→20:00)
[2017-02-03] MEDS: LEVOTHYROXINE 75 MCG TAB NGT SCH (05:46)
[2017-02-03 07:42] LABS: CALCIUM 8.6 mg/dl (8.4-10.2); CREATININE 2.27 mg/dl (0.44-1.00); POTASSIUM 3.5 mmol/L (3.5-5.1)
[2017-02-03 08:26] LABS: ABNORMAL IP MESSAGE 1; BASOPHILS % 0.1 % (0.0-2.0); EOSINOPHILS # 0.2 10^3/ul (0.0-0.5); EOSINOPHILS % 2.3 % (0.0-7.0); HEMATOCRIT 25.9 % (37.0-47.0); HEMOGLOBIN 7.9 g/dl (12.0-16.0); LYMPHOCYTES # 0.5 10^3/ul (0.8-2.9); LYMPHOCYTES % 5.2 % (15.0-51.0); MEAN CORPUSCULAR HEMOGLOBIN 29.5 pg (29.0-33.0); MEAN CORPUSCULAR HGB CONC 30.5 g/dl (32.0-37.0); MEAN CORPUSCULAR VOLUME 96.6 fl (82.0-101.0); MEAN PLATELET VOLUME 9.7 fl (7.4-10.4); MONOCYTE # 0.6 10^3/ul (0.3-0.9); MONOCYTES % 6.4 % (0.0-11.0); NEUTROPHIL # 7.6 10^3/ul (1.6-7.5); NEUTROPHILS % 85.5 % (39.0-77.0); PLATELET COUNT 261 10^3/UL (140-415); RED BLOOD COUNT 2.68 10^6/ul (4.20-5.40); RED CELL DISTRIBUTION WIDTH 14.6 % (11.5-14.5); WHITE BLOOD COUNT 8.9 10^3/ul (4.8-10.8)
[2017-02-03 08:32] LABS: POSITIVE DIFF @See below
[2017-02-03] MEDS: FAMOTIDINE 20 MG TAB NGT SCH (09:11)
[2017-02-03] MEDS: TACROLIMUS 1 MG CAP NGT SCH ×2 (09:11→23:13)
[2017-02-03] MEDS: APIXABAN 5 MG TABLET NGT SCH ×2 (09:11→23:11)
[2017-02-03] MEDS: OXCARBAZEPINE 300 MG TAB NGT SCH ×2 (09:11→23:13)
[2017-02-03] MEDS: predniSONE 5 MG TAB PO SCH (09:11)
[2017-02-03] MEDS: METOPROLOL 50 MG TAB NGT SCH ×3 (09:12→23:12)
[2017-02-03] MEDS: ASCORBIC ACID 500 MG TAB NGT SCH ×2 (09:12→23:11)
[2017-02-03] MEDS: SERTRALINE 50 MG TAB NGT SCH (09:12)
[2017-02-03] MEDS: FLUTICASONE 0.05% 16 GM NAS SPRAY NASAL SCH (09:13)
[2017-02-03] MEDS: predniSONE 1 MG TAB PO SCH (09:13)
[2017-02-03] MEDS: LORATADINE 10 MG TAB NGT SCH (09:13)
[2017-02-03] MEDS: INSULIN GLARGINE [LANtus] 3 ML PEN SC SCH (09:14)
[2017-02-03] MEDS: BALSAM PERU/CASTOR OIL 60 GM TUBE TOP SCH (09:15)
[2017-02-03] MEDS: VORICONAZOLE 200 MG TAB PO SCH ×2 (09:24→23:11)
[2017-02-03] MEDS: SILDENAFIL 20 MG TAB NGT SCH ×3 (09:28→23:27)
[2017-02-03] MEDS: BUDESONIDE (NEB) 0.25 MG/2 ML AMP NEB SCH ×2 (09:54→20:28)
[2017-02-03] MEDS ORDERED: VITAMIN A & D 5 GM OINT PACKET TOP ONE (10:52)
--- NOTE | 2017-02-03 12:29 | PN ---
Date/Time of Note Date/Time of Note DATE: 02/03/17 TIME: 12:28 Assessment/Plan Lines/Catheters IV Catheter Type (from Nrsg): PICC Line [place] in Place (from Nrsg): Yes Assessment/Plan Chief Complaint/Hosp Course SP Tracheostomy Site clean will continue vent support Trach care Problems: Subjective 24 Hr Interval Summary Constitutional: improved Pain Control: mild Exam/Review of Systems Vital Signs Vitals Vital Signs Date Time Temp Pulse Resp B/P Pulse Ox O2 Delivery O2 Flow Rate FiO2 02/03/17 11:48 99.4 92 17 140/63 100 02/03/17 11:00 30 01/30/17 20:00 Mechanical Ventilator Intake and Output 02/02/17 02/02/17 02/03/17 15:00 23:00 07:00 Intake Total 300 ml 580 ml Output Total 3300 ml 0 ml Balance -3000 ml 580 ml Exam ENMT: mucosa pink and moist, nl external ears & nose, nl lips & teeth, nl nasal mucosa & septum Neck: non-tender, supple Respiratory: clear to auscultation, normal air movement Cardiovascular: nl pulses, regular rate and rhythm Gastrointestinal: nl liver, spleen, non-tender, soft Results Result Diagram: 02/03/17 0800 02/03/17 0640 KELSY MOORE MD Feb 03, 2017 12:29
[2017-02-03] MEDS: ACETAMINOPHEN 325 MG TAB NGT PRN (13:03)
--- NOTE | 2017-02-03 13:26 | CONS ---
Date/Time of Note Date/Time of Note DATE: 02/03/17 TIME: 13:24 Consult Date/Type/Reason Admit Date/Time Jan 05, 2017 at 00:15 Initial Consult Date 01/05/17 Type of Consultation: nephrology Ordering Provider: SUSAN SIMENTAL DO Subjective The patient is stable. No events overnight. No fevers, chills, nausea, vomiting. Patient had hemodialysis yesterday, tolerated well with 3 liters removed. No other acute events noted. No hemoptysis, hematemesis or hematochezia. no reports of melena, hematuria, new rash, dyspnea, fever, chill or diaphoresis vent settings were reviewed s/p trach d/w Dr Ariadna christianson uop OBJECTIVE: HEENT: Head is normocephalic. NECK: Supple. HEART: Regular rate. LUNGS: Show diminished breath sounds at base. ABDOMEN: Soft, nontender to palpation. No rebound or guarding. EXTREMITIES: Negative for clubbing, cyanosis. Positive edema. DERMATOLOGIC: No rashes. MUSCULOSKELETAL: No joint effusions. NEUROLOGIC: No change in exam. Objective Vital Signs Date Time Temp Pulse Resp B/P Pulse Ox O2 Delivery O2 Flow Rate FiO2 02/03/17 12:00 91 02/03/17 11:48 99.4 17 140/63 100 02/03/17 11:00 30 01/30/17 20:00 Mechanical Ventilator Intake and Output 02/02/17 02/02/17 02/03/17 15:00 23:00 07:00 Intake Total 300 ml 580 ml Output Total 3300 ml 0 ml Balance -3000 ml 580 ml Results/Medications Result Diagram: 02/03/17 0800 02/03/17 0640 Results 24 hrs Laboratory Tests Test 02/02/17 18:10 02/02/17 21:01 02/03/17 02:04 02/03/17 05:34 Bedside Glucose 139 86 106 230 H Test 02/03/17 06:40 02/03/17 08:00 02/03/17 09:20 02/03/17 12:10 Sodium Level 137 Potassium Level 3.5 Chloride Level 102 Carbon Dioxide Level 29 Anion Gap 10 Blood Urea Nitrogen 35 H Creatinine 2.27 H Glucose Level 197 Calcium Level 8.6 White Blood Count 8.9 Red Blood Count 2.68 L Hemoglobin 7.9 L Hematocrit 25.9 L Mean Corpuscular Volume 96.6 Mean Corpuscular Hemoglobin 29.5 Mean Corpuscular Hemoglobin Concent 30.5 L Red Cell Distribution Width 14.6 H Platelet Count 261 Mean Platelet Volume 9.7 Neutrophils % 85.5 H Lymphocytes % 5.2 L Monocytes % 6.4 Eosinophils % 2.3 Basophils % 0.1 Nucleated Red Blood Cells % 0.0 Neutrophils # 7.6 H Lymphocytes # 0.5 L Monocytes # 0.6 Eosinophils # 0.2 Basophils # 0.0 Nucleated Red Blood Cells # 0.0 Bedside Glucose 229 H 248 H Medications Current Medications Naloxone HCl (Narcan) 0.4 mg Q4 PRN IV SEDATION; Start 01/05/17 at 01:30 Bisacodyl (Dulcolax Supp) 10 mg DAILY MI Last administered on 01/26/17 09:57; Admin Dose 10 MG; Start 01/06/17 at 09:00; Status Future Hold Budesonide (Pulmicort (Neb)) 0.25 mg BID NEB Last administered on 02/03/17 09 :54; Admin Dose 0.25 MG; Start 01/05/17 at 10:30 Fluticasone Propionate (Flonase 0.05% Nasal) 1 spray DAILY NASAL Last administered on 02/03/17 09:13; Admin Dose 1 SPRAY; Start 01/05/17 at 11:00 Magnesium Hydroxide (Milk Of Mag) 30 ml BID PRN PO CONSTIPATION Last administered on 01/16/17 09:09; Admin Dose 30 ML; Start 01/05/17 at 10:30 Nitroglycerin (Nitroglycerin 2% Oint) 0.5 inch Q6 PRN TD CHEST PAIN; Start 03/13 at 10:30 Ondansetron HCl (Zofran Inj) 4 mg Q6H PRN IV NAUSEA Last administered on 00:01; Admin Dose 4 MG; Start 01/05/17 at 10:30 Prednisone (Prednisone) 5 mg DAILY PO Last administered on 02/03/17 09:11; Admin Dose 5 MG; Start 01/05/17 at 12:00 Prednisone (Prednisone) 3 mg DAILY PO Last administered on 02/03/17 09:13; Admin Dose 3 MG; Start 01/05/17 at 12:00 Miscellaneous Information 1 ea NOTE XX ; Start 01/05/17 at 11:00 Glucose (Glutose) 15 gm Q15M PRN PO DECREASED GLUCOSE; Start 01/05/17 at 11:00 Glucose (Glutose) 22.5 gm Q15M PRN PO DECREASED GLUCOSE; Start 01/05/17 at 11: 00 Dextrose (D50w Syringe) 25 ml Q15M PRN IV DECREASED GLUCOSE Last administered on 01/23/17 03:45; Admin Dose 25 ML; Start 01/05/17 at 11:00 Dextrose (D50w Syringe) 50 ml Q15M PRN IV DECREASED GLUCOSE Last administered on 01/08/17 21:33; Admin Dose 50 ML; Start 01/05/17 at 11:00 Glucagon (Glucagen) 1 mg Q15M PRN IM DECREASED GLUCOSE Last administered on 21:08; Admin Dose 1 MG; Start 01/05/17 at 11:00 Glucose (Glutose) 15 gm Q15M PRN BUCCAL DECREASED GLUCOSE Last administered on 01/23/17 21:36; Admin Dose 15 GM; Start 01/05/17 at 11:00 Bumetanide (Bumex) 1 mg BID IV Last administered on 01/13/17 21:06; Admin Dose 1 MG; Start 01/08/17 at 09:00; Status Future Hold Acetaminophen (Tylenol Tab) 650 mg Q6H PRN NGT PAIN AND OR ELEVATED TEMP Last administered on 02/03/17 13:03; Admin Dose 650 MG; Start 01/17/17 at 22:30 Apixaban (Eliquis) 2.5 mg BID NGT Last administered on 02/03/17 09:11; Admin Dose 2.5 MG; Start 01/17/17 at 21:00; Status Future hold Ascorbic Acid (Vitamin C) 500 mg BID NGT Last administered on 02/03/17 09:12 ; Admin Dose 500 MG; Start 01/17/17 at 21:00 Levothyroxine Sodium (Synthroid) 75 mcg DAILY@06 NGT Last administered on 02/03 05:46; Admin Dose 75 MCG; Start 01/18/17 at 06:00 Loratadine (Claritin) 10 mg DAILY NGT Last administered on 02/03/17 09:13; Admin Dose 10 MG; Start 01/18/17 at 09:00 Mirtazapine (Remeron) 15 mg HS NGT Last administered on 02/02/17 22:22; Admin Dose 15 MG; Start 01/17/17 at 21:00 Oxcarbazepine (Trileptal) 600 mg BID NGT Last administered on 02/03/17 09:11 ; Admin Dose 600 MG; Start 01/17/17 at 21:00 Senna (Senokot) 1 tab HS NGT Last administered on 01/25/17 20:06; Admin Dose 1 TAB; Start 01/17/17 at 21:00; Status Future Hold Sertraline HCl (Zoloft) 75 mg DAILY NGT Last administered on 02/03/17 09:12; Admin Dose 75 MG; Start 01/18/17 at 09:00 Sildenafil Citrate (Revatio) 20 mg TID NGT Last administered on 02/03/17 13: 01; Admin Dose 20 MG; Start 01/17/17 at 21:00 Docusate Sodium (Colace Liquid Cup) 100 mg BID NGT Last administered on 09:55; Admin Dose 100 MG; Start 01/17/17 at 21:00; Status Future Hold Famotidine (Pepcid) 20 mg DAILY NGT Last administered on 02/03/17 09:11; Admin Dose 20 MG; Start 01/20/17 at 09:00 Lorazepam (Ativan) 1 mg Q6H PRN IV anxiety Last administered on 01/29/17 14:52 ; Admin Dose 1 MG; Start 01/22/17 at 09:00 Tacrolimus (Prograf) 2 mg QPM NGT Last administered on 02/02/17 22:21; Admin Dose 2 MG; Start 01/24/17 at 21:00 Insulin Aspart (Novolog Insulin Pen) NOVOLOG *MODERATE* ALGORI... Q4 SC Last administered on 02/03/17 13:00; Admin Dose 6 UNIT; Start 01/26/17 at 17:00 Metoclopramide HCl (Reglan) 5 mg Q8H PRN IV VOMITTING; Start 01/26/17 at 15:30 Hydralazine HCl (Apresoline) 25 mg TID PRN GTB ELEVATED SYSTOLIC BP Last administered on 02/01/17 13:58; Admin Dose 25 MG; Start 01/27/17 at 07:00 Fulvestrant (Faslodex) 500 mg Q28D IM Last administered on 01/29/17 21:16; Admin Dose 500 MG; Start 01/29/17 at 21:00 Voriconazole (Vfend) 200 mg BID PO Last administered on 02/03/17 09:24; Admin Dose 200 MG; Start 01/31/17 at 21:00 Metoprolol Tartrate (Lopressor) 50 mg TID NGT Last administered on 02/03/17 13:02; Admin Dose 50 MG; Start 01/31/17 at 21:00 Insulin Glargine (Lantus) 20 unit 08 SC Last administered on 02/03/17 09:14; Admin Dose 20 UNIT; Start 02/02/17 at 08:00 Assessment/Plan Chief Complaint/Hosp Course 1. 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 Etiology of acute kidney injury is secondary to acute tubular necrosis. The patient is currently dialysis dependent, no signs of recovery. Continue intermittent dialysis 2. Hyponatremia. will adjust dialysate 3. Hypokalemia, replete with potassium chloride. 4. Paroxysmal atrial fibrillation, continue current medical management and follow up with cardiology. 5. Sepsis, status post shock secondary to pneumonia. The patient is completing antibiotic course. 6. Leukocytosis, likely due to stress and demargination. Will continue to monitor closely. Follow up with Infectious Disease. 7. Fungal urinary tract infection. The patient is status post antifungal therapy. 8. 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 The patient's current acute kidney injury as stated above. Continue current immunosuppressive regimen. Prograf levels within acceptable range. 9. Hypothyroidism. Continue Synthroid. 10. Anemia. Continue to monitor hemoglobin and hematocrit levels. 11. Diabetes. Continue Accu-Cheks and insulin sliding scale. 12. Pulmonary hypertension. Continue current medical management. 13. End-stage dependent respiratory failure, status post tracheostomy, vent settings have been reviewed. Continue to monitor. 14. Volume overload. Continue ultrafiltration with dialysis. 15. Dysphagia, status post PEG, continue tube feeding. 16. History of breast cancer. Follow up with hematology. The patient is on Faslodex. 17. Pleural effusion. The patient's cytology was negative. 18. History of breast cancer with lung metastasis. The patient is on medical management. on Faslodex as outpt Problems: LELO RICHARDSON MD Feb 03, 2017 13:26
--- NOTE | 2017-02-03 14:48 | CONS ---
Date/Time of Note Date/Time of Note DATE: 02/03/17 TIME: 14:46 Assessment/Plan Assessment/Plan Additional Assessment/Plan Ventilator setting; AC of 12, tidal volume 450, PEEP of 5, 30% FiO2. Assessment and recommendations; 1. Patient admitted with sepsis with marked interval improvement. Off antibiotics. 2. Chronic respiratory failure which is ventilator dependent. 3. Chronic immunosuppression on account of renal transplant. 4. History of diabetes hypertension and hypothyroidism. 5. Chronic renal insufficiency. 6. Severe generalized deconditioning. Continue current treatment. Consider discharge to rehab. Consultation Date/Type/Reason Admit Date/Time Jan 05, 2017 at 00:15 Initial Consult Date 01/05/17 Type of Consultation: Pulmonary Referring Provider: SUSAN SIMENTAL DO 24 HR Interval Summary Free Text/Dictation Patient's condition remains stable. Remains awake and alert. Has remained hemodynamically stable. General exam; elderly woman, on ventilator via tracheostomy, awake and alert. Currently in no distress. Exam/Review of Systems Vital Signs Vitals Vital Signs Date Time Temp Pulse Resp B/P Pulse Ox O2 Delivery O2 Flow Rate FiO2 02/03/17 12:00 91 02/03/17 11:48 99.4 17 140/63 100 02/03/17 11:00 30 01/30/17 20:00 Mechanical Ventilator Intake and Output 02/02/17 02/02/17 02/03/17 15:00 23:00 07:00 Intake Total 300 ml 580 ml Output Total 3300 ml 0 ml Balance -3000 ml 580 ml Exam HEENT exam; supple neck, no JVD. No lymphadenopathy. Midline trachea. No thyromegaly. Tracheostomy in place. Chest exam; diminished but clear breath sounds. S1-S2 audible, no murmurs. Regular rhythm. Abdomen exam; soft, nondistended. No organomegaly. Bowel sounds audible. Extremity exam; no peripheral edema. [employer] exam; he is awake and follows simple commands and moves all 4 extremities. Results Result Diagram: 02/03/17 0800 02/03/17 0640 Results 24 hrs Laboratory Tests Test 02/02/17 18:10 02/02/17 21:01 02/03/17 02:04 02/03/17 05:34 Bedside Glucose 139 86 106 230 H Test 02/03/17 06:40 02/03/17 08:00 02/03/17 09:20 02/03/17 12:10 Sodium Level 137 Potassium Level 3.5 Chloride Level 102 Carbon Dioxide Level 29 Anion Gap 10 Blood Urea Nitrogen 35 H Creatinine 2.27 H Glucose Level 197 Calcium Level 8.6 White Blood Count 8.9 Red Blood Count 2.68 L Hemoglobin 7.9 L Hematocrit 25.9 L Mean Corpuscular Volume 96.6 Mean Corpuscular Hemoglobin 29.5 Mean Corpuscular Hemoglobin Concent 30.5 L Red Cell Distribution Width 14.6 H Platelet Count 261 Mean Platelet Volume 9.7 Neutrophils % 85.5 H Lymphocytes % 5.2 L Monocytes % 6.4 Eosinophils % 2.3 Basophils % 0.1 Nucleated Red Blood Cells % 0.0 Neutrophils # 7.6 H Lymphocytes # 0.5 L Monocytes # 0.6 Eosinophils # 0.2 Basophils # 0.0 Nucleated Red Blood Cells # 0.0 Bedside Glucose 229 H 248 H Medications Medications Current Medications Naloxone HCl (Narcan) 0.4 mg Q4 PRN IV SEDATION; Start 01/05/17 at 01:30 Bisacodyl (Dulcolax Supp) 10 mg DAILY ND Last administered on 01/26/17 09:57; Admin Dose 10 MG; Start 01/06/17 at 09:00; Status Future Hold Budesonide (Pulmicort (Neb)) 0.25 mg BID NEB Last administered on 02/03/17 09 :54; Admin Dose 0.25 MG; Start 01/05/17 at 10:30 Fluticasone Propionate (Flonase 0.05% Nasal) 1 spray DAILY NASAL Last administered on 02/03/17 09:13; Admin Dose 1 SPRAY; Start 01/05/17 at 11:00 Magnesium Hydroxide (Milk Of Mag) 30 ml BID PRN PO CONSTIPATION Last administered on 01/16/17 09:09; Admin Dose 30 ML; Start 01/05/17 at 10:30 Nitroglycerin (Nitroglycerin 2% Oint) 0.5 inch Q6 PRN TD CHEST PAIN; Start 03/13 at 10:30 Ondansetron HCl (Zofran Inj) 4 mg Q6H PRN IV NAUSEA Last administered on 00:01; Admin Dose 4 MG; Start 01/05/17 at 10:30 Prednisone (Prednisone) 5 mg DAILY PO Last administered on 02/03/17 09:11; Admin Dose 5 MG; Start 01/05/17 at 12:00 Prednisone (Prednisone) 3 mg DAILY PO Last administered on 02/03/17 09:13; Admin Dose 3 MG; Start 01/05/17 at 12:00 Miscellaneous Information 1 ea NOTE XX ; Start 01/05/17 at 11:00 Glucose (Glutose) 15 gm Q15M PRN PO DECREASED GLUCOSE; Start 01/05/17 at 11:00 Glucose (Glutose) 22.5 gm Q15M PRN PO DECREASED GLUCOSE; Start 01/05/17 at 11: 00 Dextrose (D50w Syringe) 25 ml Q15M PRN IV DECREASED GLUCOSE Last administered on 01/23/17 03:45; Admin Dose 25 ML; Start 01/05/17 at 11:00 Dextrose (D50w Syringe) 50 ml Q15M PRN IV DECREASED GLUCOSE Last administered on 01/08/17 21:33; Admin Dose 50 ML; Start 01/05/17 at 11:00 Glucagon (Glucagen) 1 mg Q15M PRN IM DECREASED GLUCOSE Last administered on 21:08; Admin Dose 1 MG; Start 01/05/17 at 11:00 Glucose (Glutose) 15 gm Q15M PRN BUCCAL DECREASED GLUCOSE Last administered on 01/23/17 21:36; Admin Dose 15 GM; Start 01/05/17 at 11:00 Bumetanide (Bumex) 1 mg BID IV Last administered on 01/13/17 21:06; Admin Dose 1 MG; Start 01/08/17 at 09:00; Status Future Hold Acetaminophen (Tylenol Tab) 650 mg Q6H PRN NGT PAIN AND OR ELEVATED TEMP Last administered on 02/03/17 13:03; Admin Dose 650 MG; Start 01/17/17 at 22:30 Apixaban (Eliquis) 2.5 mg BID NGT Last administered on 02/03/17 09:11; Admin Dose 2.5 MG; Start 01/17/17 at 21:00; Status Future hold Ascorbic Acid (Vitamin C) 500 mg BID NGT Last administered on 02/03/17 09:12 ; Admin Dose 500 MG; Start 01/17/17 at 21:00 Levothyroxine Sodium (Synthroid) 75 mcg DAILY@06 NGT Last administered on 02/03 05:46; Admin Dose 75 MCG; Start 01/18/17 at 06:00 Loratadine (Claritin) 10 mg DAILY NGT Last administered on 02/03/17 09:13; Admin Dose 10 MG; Start 01/18/17 at 09:00 Mirtazapine (Remeron) 15 mg HS NGT Last administered on 02/02/17 22:22; Admin Dose 15 MG; Start 01/17/17 at 21:00 Oxcarbazepine (Trileptal) 600 mg BID NGT Last administered on 02/03/17 09:11 ; Admin Dose 600 MG; Start 01/17/17 at 21:00 Senna (Senokot) 1 tab HS NGT Last administered on 01/25/17 20:06; Admin Dose 1 TAB; Start 01/17/17 at 21:00; Status Future Hold Sertraline HCl (Zoloft) 75 mg DAILY NGT Last administered on 02/03/17 09:12; Admin Dose 75 MG; Start 01/18/17 at 09:00 Sildenafil Citrate (Revatio) 20 mg TID NGT Last administered on 02/03/17 13: 01; Admin Dose 20 MG; Start 01/17/17 at 21:00 Docusate Sodium (Colace Liquid Cup) 100 mg BID NGT Last administered on 09:55; Admin Dose 100 MG; Start 01/17/17 at 21:00; Status Future Hold Famotidine (Pepcid) 20 mg DAILY NGT Last administered on 02/03/17 09:11; Admin Dose 20 MG; Start 01/20/17 at 09:00 Lorazepam (Ativan) 1 mg Q6H PRN IV anxiety Last administered on 01/29/17 14:52 ; Admin Dose 1 MG; Start 01/22/17 at 09:00 Tacrolimus (Prograf) 2 mg QPM NGT Last administered on 02/02/17 22:21; Admin Dose 2 MG; Start 01/24/17 at 21:00 Insulin Aspart (Novolog Insulin Pen) NOVOLOG *MODERATE* ALGORI... Q4 SC Last administered on 02/03/17 13:00; Admin Dose 6 UNIT; Start 01/26/17 at 17:00 Metoclopramide HCl (Reglan) 5 mg Q8H PRN IV VOMITTING; Start 01/26/17 at 15:30 Hydralazine HCl (Apresoline) 25 mg TID PRN GTB ELEVATED SYSTOLIC BP Last administered on 02/01/17 13:58; Admin Dose 25 MG; Start 01/27/17 at 07:00 Fulvestrant (Faslodex) 500 mg Q28D IM Last administered on 01/29/17 21:16; Admin Dose 500 MG; Start 01/29/17 at 21:00 Voriconazole (Vfend) 200 mg BID PO Last administered on 02/03/17 09:24; Admin Dose 200 MG; Start 01/31/17 at 21:00 Metoprolol Tartrate (Lopressor) 50 mg TID NGT Last administered on 02/03/17 13:02; Admin Dose 50 MG; Start 01/31/17 at 21:00 Insulin Glargine (Lantus) 20 unit 08 SC Last administered on 02/03/17 09:14; Admin Dose 20 UNIT; Start 02/02/17 at 08:00 JOELLE INFANTE Feb 03, 2017 14:48
--- NOTE | 2017-02-03 15:06 | CONS ---
Date/Time of Note Date/Time of Note DATE: 02/03/17 TIME: 15:05 Assessment/Plan Assessment/Plan Chief Complaint/Hosp Course SUBJECTIVE: Awake, looks comfortable, no fevers NDWELLINGS: Trach, PEG, [place], right IJ Bandar. Abx: Vfend PHYSICAL EXAMINATION: GENERAL: This is a fragile, chronically ill-appearing, elderly woman who is awake, in no distress. HEENT: Head atraumatic, normocephalic. Sclerae anicteric. Buccal mucosa dry. NECK: Supple. Tracheostomy present. CHEST: Rise symmetrical. Breath sounds diminished to bases. HEART: S1, S2. ABDOMEN: Soft, bowel sounds present. EXTREMITIES: Without cyanosis. Bilateral trace edema. ASSESSMENT: 1. Status post sepsis/pneumonia. 2. Acute respiratory failure. 3. Acute on chronic kidney disease, now on hemodialysis. 4. History of kidney transplant, remains on immunosuppressive therapy. 5. Dysphagia. 6. Anemia. 7. Bacteuria==> cx + yeast PLAN: The patient remains stable. Continue Vfend DW staff Problems: Consultation Date/Type/Reason Admit Date/Time Jan 05, 2017 at 00:15 Initial Consult Date 01/05/17 Type of Consultation: ID Referring Provider: SUSAN SIMENTAL DO Exam/Review of Systems Vital Signs Vitals Vital Signs Date Time Temp Pulse Resp B/P Pulse Ox O2 Delivery O2 Flow Rate FiO2 02/03/17 12:00 91 02/03/17 11:48 99.4 17 140/63 100 02/03/17 11:00 30 01/30/17 20:00 Mechanical Ventilator Intake and Output 02/02/17 02/02/17 02/03/17 15:00 23:00 07:00 Intake Total 300 ml 580 ml Output Total 3300 ml 0 ml Balance -3000 ml 580 ml Results Result Diagram: 02/03/17 0800 02/03/17 0640 Results 24 hrs Laboratory Tests Test 02/02/17 18:10 02/02/17 21:01 02/03/17 02:04 02/03/17 05:34 Bedside Glucose 139 86 106 230 H Test 02/03/17 06:40 02/03/17 08:00 02/03/17 09:20 02/03/17 12:10 Sodium Level 137 Potassium Level 3.5 Chloride Level 102 Carbon Dioxide Level 29 Anion Gap 10 Blood Urea Nitrogen 35 H Creatinine 2.27 H Glucose Level 197 Calcium Level 8.6 White Blood Count 8.9 Red Blood Count 2.68 L Hemoglobin 7.9 L Hematocrit 25.9 L Mean Corpuscular Volume 96.6 Mean Corpuscular Hemoglobin 29.5 Mean Corpuscular Hemoglobin Concent 30.5 L Red Cell Distribution Width 14.6 H Platelet Count 261 Mean Platelet Volume 9.7 Neutrophils % 85.5 H Lymphocytes % 5.2 L Monocytes % 6.4 Eosinophils % 2.3 Basophils % 0.1 Nucleated Red Blood Cells % 0.0 Neutrophils # 7.6 H Lymphocytes # 0.5 L Monocytes # 0.6 Eosinophils # 0.2 Basophils # 0.0 Nucleated Red Blood Cells # 0.0 Bedside Glucose 229 H 248 H Medications Medications Current Medications Naloxone HCl (Narcan) 0.4 mg Q4 PRN IV SEDATION; Start 01/05/17 at 01:30 Bisacodyl (Dulcolax Supp) 10 mg DAILY SC Last administered on 01/26/17 09:57; Admin Dose 10 MG; Start 01/06/17 at 09:00; Status Future Hold Budesonide (Pulmicort (Neb)) 0.25 mg BID NEB Last administered on 02/03/17 09 :54; Admin Dose 0.25 MG; Start 01/05/17 at 10:30 Fluticasone Propionate (Flonase 0.05% Nasal) 1 spray DAILY NASAL Last administered on 02/03/17 09:13; Admin Dose 1 SPRAY; Start 01/05/17 at 11:00 Magnesium Hydroxide (Milk Of Mag) 30 ml BID PRN PO CONSTIPATION Last administered on 01/16/17 09:09; Admin Dose 30 ML; Start 01/05/17 at 10:30 Nitroglycerin (Nitroglycerin 2% Oint) 0.5 inch Q6 PRN TD CHEST PAIN; Start 03/13 at 10:30 Ondansetron HCl (Zofran Inj) 4 mg Q6H PRN IV NAUSEA Last administered on 00:01; Admin Dose 4 MG; Start 01/05/17 at 10:30 Prednisone (Prednisone) 5 mg DAILY PO Last administered on 02/03/17 09:11; Admin Dose 5 MG; Start 01/05/17 at 12:00 Prednisone (Prednisone) 3 mg DAILY PO Last administered on 02/03/17 09:13; Admin Dose 3 MG; Start 01/05/17 at 12:00 Miscellaneous Information 1 ea NOTE XX ; Start 01/05/17 at 11:00 Glucose (Glutose) 15 gm Q15M PRN PO DECREASED GLUCOSE; Start 01/05/17 at 11:00 Glucose (Glutose) 22.5 gm Q15M PRN PO DECREASED GLUCOSE; Start 01/05/17 at 11: 00 Dextrose (D50w Syringe) 25 ml Q15M PRN IV DECREASED GLUCOSE Last administered on 01/23/17 03:45; Admin Dose 25 ML; Start 01/05/17 at 11:00 Dextrose (D50w Syringe) 50 ml Q15M PRN IV DECREASED GLUCOSE Last administered on 01/08/17 21:33; Admin Dose 50 ML; Start 01/05/17 at 11:00 Glucagon (Glucagen) 1 mg Q15M PRN IM DECREASED GLUCOSE Last administered on 21:08; Admin Dose 1 MG; Start 01/05/17 at 11:00 Glucose (Glutose) 15 gm Q15M PRN BUCCAL DECREASED GLUCOSE Last administered on 01/23/17 21:36; Admin Dose 15 GM; Start 01/05/17 at 11:00 Bumetanide (Bumex) 1 mg BID IV Last administered on 01/13/17 21:06; Admin Dose 1 MG; Start 01/08/17 at 09:00; Status Future Hold Acetaminophen (Tylenol Tab) 650 mg Q6H PRN NGT PAIN AND OR ELEVATED TEMP Last administered on 02/03/17 13:03; Admin Dose 650 MG; Start 01/17/17 at 22:30 Apixaban (Eliquis) 2.5 mg BID NGT Last administered on 02/03/17 09:11; Admin Dose 2.5 MG; Start 01/17/17 at 21:00; Status Future hold Ascorbic Acid (Vitamin C) 500 mg BID NGT Last administered on 02/03/17 09:12 ; Admin Dose 500 MG; Start 01/17/17 at 21:00 Levothyroxine Sodium (Synthroid) 75 mcg DAILY@06 NGT Last administered on 02/03 05:46; Admin Dose 75 MCG; Start 01/18/17 at 06:00 Loratadine (Claritin) 10 mg DAILY NGT Last administered on 02/03/17 09:13; Admin Dose 10 MG; Start 01/18/17 at 09:00 Mirtazapine (Remeron) 15 mg HS NGT Last administered on 02/02/17 22:22; Admin Dose 15 MG; Start 01/17/17 at 21:00 Oxcarbazepine (Trileptal) 600 mg BID NGT Last administered on 02/03/17 09:11 ; Admin Dose 600 MG; Start 01/17/17 at 21:00 Senna (Senokot) 1 tab HS NGT Last administered on 01/25/17 20:06; Admin Dose 1 TAB; Start 01/17/17 at 21:00; Status Future Hold Sertraline HCl (Zoloft) 75 mg DAILY NGT Last administered on 02/03/17 09:12; Admin Dose 75 MG; Start 01/18/17 at 09:00 Sildenafil Citrate (Revatio) 20 mg TID NGT Last administered on 02/03/17 13: 01; Admin Dose 20 MG; Start 01/17/17 at 21:00 Docusate Sodium (Colace Liquid Cup) 100 mg BID NGT Last administered on 09:55; Admin Dose 100 MG; Start 01/17/17 at 21:00; Status Future Hold Famotidine (Pepcid) 20 mg DAILY NGT Last administered on 02/03/17 09:11; Admin Dose 20 MG; Start 01/20/17 at 09:00 Lorazepam (Ativan) 1 mg Q6H PRN IV anxiety Last administered on 01/29/17 14:52 ; Admin Dose 1 MG; Start 01/22/17 at 09:00 Tacrolimus (Prograf) 2 mg QPM NGT Last administered on 02/02/17 22:21; Admin Dose 2 MG; Start 01/24/17 at 21:00 Insulin Aspart (Novolog Insulin Pen) NOVOLOG *MODERATE* ALGORI... Q4 SC Last administered on 02/03/17 13:00; Admin Dose 6 UNIT; Start 01/26/17 at 17:00 Metoclopramide HCl (Reglan) 5 mg Q8H PRN IV VOMITTING; Start 01/26/17 at 15:30 Hydralazine HCl (Apresoline) 25 mg TID PRN GTB ELEVATED SYSTOLIC BP Last administered on 02/01/17 13:58; Admin Dose 25 MG; Start 01/27/17 at 07:00 Fulvestrant (Faslodex) 500 mg Q28D IM Last administered on 01/29/17 21:16; Admin Dose 500 MG; Start 01/29/17 at 21:00 Voriconazole (Vfend) 200 mg BID PO Last administered on 02/03/17 09:24; Admin Dose 200 MG; Start 01/31/17 at 21:00 Metoprolol Tartrate (Lopressor) 50 mg TID NGT Last administered on 02/03/17 13:02; Admin Dose 50 MG; Start 01/31/17 at 21:00 Insulin Glargine (Lantus) 20 unit 08 SC Last administered on 02/03/17 09:14; Admin Dose 20 UNIT; Start 02/02/17 at 08:00 MAXIMUS ETIENNE NP Feb 03, 2017 15:06
--- NOTE | 2017-02-03 18:49 | CONS ---
Date/Time of Note Date/Time of Note DATE: 02/03/17 TIME: 18:49 Consult Date/Type/Reason Admit Date/Time Jan 05, 2017 at 00:15 Initial Consult Date 01/05/17 Type of Consultation: card Ordering Provider: SUSAN SIMENTAL DO Subjective CARDIOLOGY FOLLOW UP NOTE: D/W Staff and rhythm was reviewed. pt has remained in Afib. HR has been stable BP has been stable pt still remains on vent. s/p trach. NO reports of any chest pain or pressure S/P PEG 01/19/17 S/P Trach 01/27/17 pt is nonverbal on vent. OBJECTIVE: General: s/p trach on vent. HEENT: NC/AT. pupils are equal. round. NECK: s/p trach. no stridor. CV:irregularly irregular. systolic murmur; no gallop or rubs. PULM: no wheezing, + mild rhonchi. GI: SOFT, NT, ND, no rebound or guarding S/P PEG Extremity: trace B/L LE edema. no clubbing. neuro: awake. . Psych: unable to assess rectal: deferred : normal ECHO 12/16/16: Personally reviewed 1. Normal left ventricular systolic function. Normal left ventricular cavity size. Moderate concentric left ventricular hypertrophy. Ejection fraction is visually estimated at 65 %. Abnormal Diastolic Function. 2. There is moderate enlargement of left atrium. 3. Mild mitral leaflet calcification. Mild mitral annular calcification. Trace mitral regurgitation. 4. Aortic sclerosis without stenosis. Trace aortic valve regurgitation. 5. Normal appearance of the tricuspid valve. Estimated peak PA systolic pressure 38 mmHg. There is mild tricuspid regurgitation. Objective Vital Signs Date Time Temp Pulse Resp B/P Pulse Ox O2 Delivery O2 Flow Rate FiO2 02/03/17 17:58 99.3 02/03/17 16:50 101 15 99 30 02/03/17 16:02 139/70 01/30/17 20:00 Mechanical Ventilator Intake and Output 02/02/17 02/02/17 02/03/17 15:00 23:00 07:00 Intake Total 300 ml 580 ml Output Total 3300 ml 0 ml Balance -3000 ml 580 ml Results/Medications Result Diagram: 02/03/17 0800 02/03/17 0640 Results 24 hrs Laboratory Tests Test 02/02/17 21:01 02/03/17 02:04 02/03/17 05:34 02/03/17 06:40 Bedside Glucose 86 106 230 H Sodium Level 137 Potassium Level 3.5 Chloride Level 102 Carbon Dioxide Level 29 Anion Gap 10 Blood Urea Nitrogen 35 H Creatinine 2.27 H Glucose Level 197 Calcium Level 8.6 Test 02/03/17 08:00 02/03/17 09:20 02/03/17 12:10 02/03/17 17:42 White Blood Count 8.9 Red Blood Count 2.68 L Hemoglobin 7.9 L Hematocrit 25.9 L Mean Corpuscular Volume 96.6 Mean Corpuscular Hemoglobin 29.5 Mean Corpuscular Hemoglobin Concent 30.5 L Red Cell Distribution Width 14.6 H Platelet Count 261 Mean Platelet Volume 9.7 Neutrophils % 85.5 H Lymphocytes % 5.2 L Monocytes % 6.4 Eosinophils % 2.3 Basophils % 0.1 Nucleated Red Blood Cells % 0.0 Neutrophils # 7.6 H Lymphocytes # 0.5 L Monocytes # 0.6 Eosinophils # 0.2 Basophils # 0.0 Nucleated Red Blood Cells # 0.0 Bedside Glucose 229 H 248 H 239 H Medications Current Medications Naloxone HCl (Narcan) 0.4 mg Q4 PRN IV SEDATION; Start 01/05/17 at 01:30 Bisacodyl (Dulcolax Supp) 10 mg DAILY IA Last administered on 01/26/17 09:57; Admin Dose 10 MG; Start 01/06/17 at 09:00; Status Future Hold Budesonide (Pulmicort (Neb)) 0.25 mg BID NEB Last administered on 02/03/17 09 :54; Admin Dose 0.25 MG; Start 01/05/17 at 10:30 Fluticasone Propionate (Flonase 0.05% Nasal) 1 spray DAILY NASAL Last administered on 02/03/17 09:13; Admin Dose 1 SPRAY; Start 01/05/17 at 11:00 Magnesium Hydroxide (Milk Of Mag) 30 ml BID PRN PO CONSTIPATION Last administered on 01/16/17 09:09; Admin Dose 30 ML; Start 01/05/17 at 10:30 Nitroglycerin (Nitroglycerin 2% Oint) 0.5 inch Q6 PRN TD CHEST PAIN; Start 03/13 at 10:30 Ondansetron HCl (Zofran Inj) 4 mg Q6H PRN IV NAUSEA Last administered on 00:01; Admin Dose 4 MG; Start 01/05/17 at 10:30 Prednisone (Prednisone) 5 mg DAILY PO Last administered on 02/03/17 09:11; Admin Dose 5 MG; Start 01/05/17 at 12:00 Prednisone (Prednisone) 3 mg DAILY PO Last administered on 02/03/17 09:13; Admin Dose 3 MG; Start 01/05/17 at 12:00 Miscellaneous Information 1 ea NOTE XX ; Start 01/05/17 at 11:00 Glucose (Glutose) 15 gm Q15M PRN PO DECREASED GLUCOSE; Start 01/05/17 at 11:00 Glucose (Glutose) 22.5 gm Q15M PRN PO DECREASED GLUCOSE; Start 01/05/17 at 11: 00 Dextrose (D50w Syringe) 25 ml Q15M PRN IV DECREASED GLUCOSE Last administered on 01/23/17 03:45; Admin Dose 25 ML; Start 01/05/17 at 11:00 Dextrose (D50w Syringe) 50 ml Q15M PRN IV DECREASED GLUCOSE Last administered on 01/08/17 21:33; Admin Dose 50 ML; Start 01/05/17 at 11:00 Glucagon (Glucagen) 1 mg Q15M PRN IM DECREASED GLUCOSE Last administered on 21:08; Admin Dose 1 MG; Start 01/05/17 at 11:00 Glucose (Glutose) 15 gm Q15M PRN BUCCAL DECREASED GLUCOSE Last administered on 01/23/17 21:36; Admin Dose 15 GM; Start 01/05/17 at 11:00 Bumetanide (Bumex) 1 mg BID IV Last administered on 01/13/17 21:06; Admin Dose 1 MG; Start 01/08/17 at 09:00; Status Future Hold Acetaminophen (Tylenol Tab) 650 mg Q6H PRN NGT PAIN AND OR ELEVATED TEMP Last administered on 02/03/17 13:03; Admin Dose 650 MG; Start 01/17/17 at 22:30 Apixaban (Eliquis) 2.5 mg BID NGT Last administered on 02/03/17 09:11; Admin Dose 2.5 MG; Start 01/17/17 at 21:00; Status Future hold Ascorbic Acid (Vitamin C) 500 mg BID NGT Last administered on 02/03/17 09:12 ; Admin Dose 500 MG; Start 01/17/17 at 21:00 Levothyroxine Sodium (Synthroid) 75 mcg DAILY@06 NGT Last administered on 02/03 05:46; Admin Dose 75 MCG; Start 01/18/17 at 06:00 Loratadine (Claritin) 10 mg DAILY NGT Last administered on 02/03/17 09:13; Admin Dose 10 MG; Start 01/18/17 at 09:00 Mirtazapine (Remeron) 15 mg HS NGT Last administered on 02/02/17 22:22; Admin Dose 15 MG; Start 01/17/17 at 21:00 Oxcarbazepine (Trileptal) 600 mg BID NGT Last administered on 02/03/17 09:11 ; Admin Dose 600 MG; Start 01/17/17 at 21:00 Senna (Senokot) 1 tab HS NGT Last administered on 01/25/17 20:06; Admin Dose 1 TAB; Start 01/17/17 at 21:00; Status Future Hold Sertraline HCl (Zoloft) 75 mg DAILY NGT Last administered on 02/03/17 09:12; Admin Dose 75 MG; Start 01/18/17 at 09:00 Sildenafil Citrate (Revatio) 20 mg TID NGT Last administered on 02/03/17 13: 01; Admin Dose 20 MG; Start 01/17/17 at 21:00 Docusate Sodium (Colace Liquid Cup) 100 mg BID NGT Last administered on 09:55; Admin Dose 100 MG; Start 01/17/17 at 21:00; Status Future Hold Famotidine (Pepcid) 20 mg DAILY NGT Last administered on 02/03/17 09:11; Admin Dose 20 MG; Start 01/20/17 at 09:00 Lorazepam (Ativan) 1 mg Q6H PRN IV anxiety Last administered on 01/29/17 14:52 ; Admin Dose 1 MG; Start 01/22/17 at 09:00 Tacrolimus (Prograf) 2 mg QPM NGT Last administered on 02/02/17 22:21; Admin Dose 2 MG; Start 01/24/17 at 21:00 Insulin Aspart (Novolog Insulin Pen) NOVOLOG *MODERATE* ALGORI... Q4 SC Last administered on 02/03/17 17:49; Admin Dose 6 UNIT; Start 01/26/17 at 17:00 Metoclopramide HCl (Reglan) 5 mg Q8H PRN IV VOMITTING; Start 01/26/17 at 15:30 Hydralazine HCl (Apresoline) 25 mg TID PRN GTB ELEVATED SYSTOLIC BP Last administered on 02/01/17 13:58; Admin Dose 25 MG; Start 01/27/17 at 07:00 Fulvestrant (Faslodex) 500 mg Q28D IM Last administered on 01/29/17 21:16; Admin Dose 500 MG; Start 01/29/17 at 21:00 Voriconazole (Vfend) 200 mg BID PO Last administered on 02/03/17 09:24; Admin Dose 200 MG; Start 01/31/17 at 21:00 Metoprolol Tartrate (Lopressor) 50 mg TID NGT Last administered on 02/03/17 13:02; Admin Dose 50 MG; Start 01/31/17 at 21:00 Insulin Glargine (Lantus) 20 unit 08 SC Last administered on 02/03/17 09:14; Admin Dose 20 UNIT; Start 02/02/17 at 08:00 Assessment/Plan Chief Complaint/Hosp Course Assessment: 1. s/p cardiopulmonary arrest: Most likely due to pulmonary arrest 2. P afib: now remains in persistent Afib. 3. History of renal failure status post renal transplant: now with KATI on CKD: currently requiring HD. 4. Acute on chronic hypoxemic hypercapnic respiratory failure status post reintubation: currently on the vent: AWAITING TRACH. 5. Shock: resolved now. BP is stable 6. ANEMIA 7. breast cancer 8. HTN: 9. anxiety 10. DM 11. Hypothyroidism: on synthroid. 12. pleural effusion : s/p thoracentesis 13. Dysphagia: s/p PEG Recommendations: vent support for now anti- rejection medications to be adjusted as per renal team. HD as per renal. cont DM control thyroid supplement cont betablocker at current dose correct lytes prn with HD. cont tele monitoring transfusion prn CONT eliquis as long as no active bleeding . Thank you for this referral I will continue to follow along with you. AUGUSTINA MALDONADO MD [facility] Problems: AUGUSTINA MALDONADO MD Feb 03, 2017 18:49
[2017-02-03] MEDS: MIRTAZAPINE 15 MG TAB NGT SCH (23:11)
[2017-02-04] VITALS (33 sets, daily range): BP systolic 93–186; BP diastolic 46–99; PULSE 70–99; RESP 12–20
[2017-02-04] MEDS: INSULIN ASPART [NOVOLOG] 3 ML PEN SC SCH ×3 (01:52→09:09)
[2017-02-04] MEDS: ALBUTEROL 18 GM INHALER INH SCH ×5 (02:00→19:09)
[2017-02-04] MEDS: IPRATROPIUM (HFA) 12.9 GM INHALER INH SCH ×5 (02:00→19:09)
[2017-02-04] MEDS: LEVOTHYROXINE 75 MCG TAB NGT SCH (05:28)
--- NOTE | 2017-02-04 08:33 | CONS ---
Date/Time of Note Date/Time of Note DATE: 02/04/17 TIME: 08:32 Consult Date/Type/Reason Admit Date/Time Jan 05, 2017 at 00:15 Initial Consult Date 01/05/17 Type of Consultation: card Ordering Provider: SUSAN SIMENTAL DO Subjective CARDIOLOGY FOLLOW UP NOTE: D/W Staff and rhythm was reviewed. pt has remained in Afib. HR has been stable BP has been stable now pt still remains on vent. s/p trach. NO reports of any chest pain or pressure S/P PEG 01/19/17 S/P Trach 01/27/17 pt is nonverbal on vent. OBJECTIVE: General: s/p trach on vent. HEENT: NC/AT. pupils are equal. round. NECK: s/p trach. no stridor. CV:irregularly irregular. systolic murmur; no gallop or rubs. PULM: no wheezing, + mild rhonchi. GI: SOFT, NT, ND, no rebound or guarding S/P PEG Extremity: trace B/L LE edema. no clubbing. neuro: awake. . Psych: unable to assess rectal: deferred : normal ECHO 12/16/16: Personally reviewed 1. Normal left ventricular systolic function. Normal left ventricular cavity size. Moderate concentric left ventricular hypertrophy. Ejection fraction is visually estimated at 65 %. Abnormal Diastolic Function. 2. There is moderate enlargement of left atrium. 3. Mild mitral leaflet calcification. Mild mitral annular calcification. Trace mitral regurgitation. 4. Aortic sclerosis without stenosis. Trace aortic valve regurgitation. 5. Normal appearance of the tricuspid valve. Estimated peak PA systolic pressure 38 mmHg. There is mild tricuspid regurgitation. Objective Vital Signs Date Time Temp Pulse Resp B/P Pulse Ox O2 Delivery O2 Flow Rate FiO2 02/04/17 08:08 30 02/04/17 07:48 99 18 135/60 02/04/17 07:42 100 02/04/17 07:33 99.9 Intake and Output 02/03/17 02/03/17 02/04/17 14:59 22:59 06:59 Intake Total 560 ml 600 ml Output Total 400 ml 350 ml Balance 160 ml 250 ml Results/Medications Result Diagram: 02/03/17 0800 02/03/17 0640 Results 24 hrs Laboratory Tests Test 02/03/17 09:20 02/03/17 12:10 02/03/17:42 02/03/17 21:43 Bedside Glucose 229 H 248 H 239 H 181 Test 02/04/17 01:43 02/04/17 05:04 Bedside Glucose 153 200 Medications Current Medications Naloxone HCl (Narcan) 0.4 mg Q4 PRN IV SEDATION; Start 01/05/17 at 01:30 Bisacodyl (Dulcolax Supp) 10 mg DAILY SC Last administered on 01/26/17 09:57; Admin Dose 10 MG; Start 01/06/17 at 09:00; Status Future Hold Budesonide (Pulmicort (Neb)) 0.25 mg BID NEB Last administered on 02/03/17 20 :28; Admin Dose 0.25 MG; Start 01/05/17 at 10:30 Fluticasone Propionate (Flonase 0.05% Nasal) 1 spray DAILY NASAL Last administered on 02/03/17 09:13; Admin Dose 1 SPRAY; Start 01/05/17 at 11:00 Magnesium Hydroxide (Milk Of Mag) 30 ml BID PRN PO CONSTIPATION Last administered on 01/16/17 09:09; Admin Dose 30 ML; Start 01/05/17 at 10:30 Nitroglycerin (Nitroglycerin 2% Oint) 0.5 inch Q6 PRN TD CHEST PAIN; Start 03/13 at 10:30 Ondansetron HCl (Zofran Inj) 4 mg Q6H PRN IV NAUSEA Last administered on 00:01; Admin Dose 4 MG; Start 01/05/17 at 10:30 Prednisone (Prednisone) 5 mg DAILY PO Last administered on 02/03/17 09:11; Admin Dose 5 MG; Start 01/05/17 at 12:00 Prednisone (Prednisone) 3 mg DAILY PO Last administered on 02/03/17 09:13; Admin Dose 3 MG; Start 01/05/17 at 12:00 Miscellaneous Information 1 ea NOTE XX ; Start 01/05/17 at 11:00 Glucose (Glutose) 15 gm Q15M PRN PO DECREASED GLUCOSE; Start 01/05/17 at 11:00 Glucose (Glutose) 22.5 gm Q15M PRN PO DECREASED GLUCOSE; Start 01/05/17 at 11: 00 Dextrose (D50w Syringe) 25 ml Q15M PRN IV DECREASED GLUCOSE Last administered on 01/23/17 03:45; Admin Dose 25 ML; Start 01/05/17 at 11:00 Dextrose (D50w Syringe) 50 ml Q15M PRN IV DECREASED GLUCOSE Last administered on 01/08/17 21:33; Admin Dose 50 ML; Start 01/05/17 at 11:00 Glucagon (Glucagen) 1 mg Q15M PRN IM DECREASED GLUCOSE Last administered on 21:08; Admin Dose 1 MG; Start 01/05/17 at 11:00 Glucose (Glutose) 15 gm Q15M PRN BUCCAL DECREASED GLUCOSE Last administered on 01/23/17 21:36; Admin Dose 15 GM; Start 01/05/17 at 11:00 Bumetanide (Bumex) 1 mg BID IV Last administered on 01/13/17 21:06; Admin Dose 1 MG; Start 01/08/17 at 09:00; Status Future Hold Acetaminophen (Tylenol Tab) 650 mg Q6H PRN NGT PAIN AND OR ELEVATED TEMP Last administered on 02/03/17 13:03; Admin Dose 650 MG; Start 01/17/17 at 22:30 Apixaban (Eliquis) 2.5 mg BID NGT Last administered on 02/03/17 23:11; Admin Dose 2.5 MG; Start 01/17/17 at 21:00; Status Future hold Ascorbic Acid (Vitamin C) 500 mg BID NGT Last administered on 02/03/17 23:11 ; Admin Dose 500 MG; Start 01/17/17 at 21:00 Levothyroxine Sodium (Synthroid) 75 mcg DAILY@06 NGT Last administered on 02/04 05:28; Admin Dose 75 MCG; Start 01/18/17 at 06:00 Loratadine (Claritin) 10 mg DAILY NGT Last administered on 02/03/17 09:13; Admin Dose 10 MG; Start 01/18/17 at 09:00 Mirtazapine (Remeron) 15 mg HS NGT Last administered on 02/03/17 23:11; Admin Dose 15 MG; Start 01/17/17 at 21:00 Oxcarbazepine (Trileptal) 600 mg BID NGT Last administered on 02/03/17 23:13 ; Admin Dose 600 MG; Start 01/17/17 at 21:00 Senna (Senokot) 1 tab HS NGT Last administered on 01/25/17 20:06; Admin Dose 1 TAB; Start 01/17/17 at 21:00; Status Future Hold Sertraline HCl (Zoloft) 75 mg DAILY NGT Last administered on 02/03/17 09:12; Admin Dose 75 MG; Start 01/18/17 at 09:00 Sildenafil Citrate (Revatio) 20 mg TID NGT Last administered on 02/03/17 23: 27; Admin Dose 20 MG; Start 01/17/17 at 21:00 Docusate Sodium (Colace Liquid Cup) 100 mg BID NGT Last administered on 09:55; Admin Dose 100 MG; Start 01/17/17 at 21:00; Status Future Hold Famotidine (Pepcid) 20 mg DAILY NGT Last administered on 02/03/17 09:11; Admin Dose 20 MG; Start 01/20/17 at 09:00 Lorazepam (Ativan) 1 mg Q6H PRN IV anxiety Last administered on 01/29/17 14:52 ; Admin Dose 1 MG; Start 01/22/17 at 09:00 Tacrolimus (Prograf) 2 mg QPM NGT Last administered on 02/03/17 23:13; Admin Dose 2 MG; Start 01/24/17 at 21:00 Insulin Aspart (Novolog Insulin Pen) NOVOLOG *MODERATE* ALGORI... Q4 SC Last administered on 02/04/17 05:11; Admin Dose 4 UNIT; Start 01/26/17 at 17:00 Metoclopramide HCl (Reglan) 5 mg Q8H PRN IV VOMITTING; Start 01/26/17 at 15:30 Hydralazine HCl (Apresoline) 25 mg TID PRN GTB ELEVATED SYSTOLIC BP Last administered on 02/01/17 13:58; Admin Dose 25 MG; Start 01/27/17 at 07:00 Fulvestrant (Faslodex) 500 mg Q28D IM Last administered on 01/29/17 21:16; Admin Dose 500 MG; Start 01/29/17 at 21:00 Voriconazole (Vfend) 200 mg BID PO Last administered on 02/03/17 23:11; Admin Dose 200 MG; Start 01/31/17 at 21:00 Metoprolol Tartrate (Lopressor) 50 mg TID NGT Last administered on 02/03/17 23:12; Admin Dose 50 MG; Start 01/31/17 at 21:00 Insulin Glargine (Lantus) 20 unit 08 SC Last administered on 02/03/17 09:14; Admin Dose 20 UNIT; Start 02/02/17 at 08:00 Assessment/Plan Chief Complaint/Hosp Course Assessment: 1. s/p cardiopulmonary arrest: Most likely due to pulmonary arrest 2. P afib: now remains in persistent Afib. 3. History of renal failure status post renal transplant: now with KATI on CKD: currently requiring HD. 4. Acute on chronic hypoxemic hypercapnic respiratory failure status post reintubation: currently on the vent: AWAITING TRACH. 5. Shock: resolved now. BP is stable 6. ANEMIA 7. breast cancer 8. HTN: 9. anxiety 10. DM 11. Hypothyroidism: on synthroid. 12. pleural effusion : s/p thoracentesis 13. Dysphagia: s/p PEG Recommendations: vent support for now anti- rejection medications to be adjusted as per renal team. HD as per renal. cont DM control thyroid supplement cont betablocker at current dose correct lytes prn with HD. cont tele monitoring transfusion prn CONT eliquis as long as no active bleeding . Thank you for this referral I will continue to follow along with you. AUGUSTINA MALDONADO MD [facility] Problems: AUGUSTINA MALDONADO MD Feb 04, 2017 08:33
[2017-02-04] MEDS: TACROLIMUS 1 MG CAP NGT SCH ×3 (08:55→21:24)
[2017-02-04] MEDS: predniSONE 5 MG TAB PO SCH ×2 (09:00→13:36)
[2017-02-04] MEDS: ASCORBIC ACID 500 MG TAB NGT SCH ×3 (09:00→21:24)
[2017-02-04] MEDS: LORATADINE 10 MG TAB NGT SCH ×2 (09:00→12:22)
[2017-02-04] MEDS: predniSONE 1 MG TAB PO SCH ×2 (09:00→12:22)
[2017-02-04] MEDS: SILDENAFIL 20 MG TAB NGT SCH ×4 (09:00→21:38)
[2017-02-04] MEDS: APIXABAN 5 MG TABLET NGT SCH ×3 (09:00→21:25)
[2017-02-04] MEDS: SERTRALINE 50 MG TAB NGT SCH ×2 (09:00→12:23)
[2017-02-04] MEDS: METOPROLOL 50 MG TAB NGT SCH ×4 (09:00→21:00)
[2017-02-04] MEDS: FAMOTIDINE 20 MG TAB NGT SCH ×2 (09:00→12:23)
[2017-02-04] MEDS: VORICONAZOLE 200 MG TAB PO SCH ×3 (09:00→21:23)
[2017-02-04] MEDS: BALSAM PERU/CASTOR OIL 60 GM TUBE TOP SCH ×2 (09:00→13:36)
[2017-02-04] MEDS: OXCARBAZEPINE 300 MG TAB NGT SCH ×3 (09:00→21:26)
[2017-02-04] MEDS: INSULIN GLARGINE [LANtus] 3 ML PEN SC SCH (09:07)
[2017-02-04] MEDS: FLUTICASONE 0.05% 16 GM NAS SPRAY NASAL SCH (09:07)
[2017-02-04] MEDS: BUDESONIDE (NEB) 0.25 MG/2 ML AMP NEB SCH ×2 (09:41→20:03)
--- NOTE | 2017-02-04 11:39 | PN ---
Date/Time of Note Date/Time of Note DATE: 02/04/17 TIME: 11:35 Assessment/Plan VTE Prophylaxis VTE Prophylaxis Intervention: other Lines/Catheters IV C[facility]ter Type (from [facility]): PICC Line Central line still needed: Yes Urinary Cath still in place: Yes Reason Cath still needed: urinary retention Assessment/Plan Chief Complaint/Hosp Course SUBJECTIVE: The patient is stable. No events overnight. No fevers, chills, nausea, vomiting. Patient had hemodialysis yesterday, tolerated well with 3 liters removed. No other acute events noted. No hemoptysis, hematemesis or hematochezia. no reports of melena, hematuria, new rash, dyspnea, fever, chill or diaphoresis vent settings were reviewed d/w Dr Rosenthal remains oliguric OBJECTIVE: HEENT: Head is normocephalic. NECK: Supple. HEART: Regular rate. LUNGS: Show diminished breath sounds at base. ABDOMEN: Soft, nontender to palpation. No rebound or guarding. EXTREMITIES: Negative for clubbing, cyanosis. Positive edema. DERMATOLOGIC: No rashes. MUSCULOSKELETAL: No joint effusions. NEUROLOGIC: No change in exam. MEDICATIONS: Reviewed. OBJECTIVE DATA: HEENT: Head is normocephalic. Pupils are reactive to light. NECK: Supple. HEART: Regular rate. LUNGS: Showed diminished breath sounds at the base. ABDOMEN: Soft. Nontender to palpation. No rebound or guarding. EXTREMITIES: Negative for clubbing, cyanosis. No edema. DERMATOLOGIC: Clean. No rashes. MUSCULOSKELETAL: No joint effusion. NEUROLOGIC: No focal deficits. MEDICATIONS, labs, previous orders, nurses' care plans: Reviewed. 1. 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 Etiology of acute kidney injury is secondary to acute tubular necrosis. The patient is currently dialysis dependent, no signs of recovery. Continue intermittent dialysis 2. Hyponatremia. will adjust dialysate 3. Hypokalemia, repleted 4. Paroxysmal atrial fibrillation, continue current medical management and follow up with cardiology. 5. Sepsis, status post shock secondary to pneumonia. The patient is completing antibiotic course. 6. Leukocytosis, likely due to stress and demargination. Will continue to monitor closely. Follow up with Infectious Disease. 7. Fungal urinary tract infection. The patient is status post antifungal therapy. 8. 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 The patient's current acute kidney injury as stated above. Continue current immunosuppressive regimen. Prograf levels within acceptable range. 9. Hypothyroidism. Continue Synthroid. 10. Anemia. Continue to monitor hemoglobin and hematocrit levels. 11. Diabetes. Continue Accu-Cheks and insulin sliding scale. 12. Pulmonary hypertension. Continue current medical management. 13. End-stage dependent respiratory failure, status post tracheostomy, vent settings have been reviewed. Continue to monitor. 14. Volume overload. Continue ultrafiltration with dialysis. 15. Dysphagia, status post PEG, continue tube feeding. 16. History of breast cancer. Follow up with hematology. The patient is on Faslodex. 17. Pleural effusion. The patient's cytology was negative. 18. History of breast cancer with lung metastasis. The patient is on medical management. will continue Faslodex as outpatient to [facility] when bed available Problems: Exam/Review of Systems Vital Signs Vitals Vital Signs Date Time Temp Pulse Resp B/P Pulse Ox O2 Delivery O2 Flow Rate FiO2 02/04/17 11:27 99.2 85 16 106/58 100 02/04/17 09:23 30 Intake and Output 02/03/17 02/03/17 02/04/17 15:00 23:00 07:00 Intake Total 560 ml 600 ml Output Total 400 ml 350 ml Balance 160 ml 250 ml Results Result Diagram: 02/03/17 0800 02/03/17 0640 Results 24 hrs Laboratory Tests Test 02/03/17 12:10 02/03/17 17:42 02/03/17 21:43 02/04/17 01:43 Bedside Glucose 248 H 239 H 181 153 Test 02/04/17 05:04 02/04/17 09:01 02/04/17 11:27 Bedside Glucose 200 217 206 Medications Medications Current Medications Naloxone HCl (Narcan) 0.4 mg Q4 PRN IV SEDATION; Start 01/05/17 at 01:30 Bisacodyl (Dulcolax Supp) 10 mg DAILY [place] Last administered on 01/26/17 09:57; Admin Dose 10 MG; Start 01/06/17 at 09:00; Status Future Hold Budesonide (Pulmicort (Neb)) 0.25 mg BID NEB Last administered on 02/04/17 09 :41; Admin Dose 0.25 MG; Start 01/05/17 at 10:30 Fluticasone Propionate (Flonase 0.05% Nasal) 1 spray DAILY NASAL Last administered on 02/04/17 09:07; Admin Dose 1 SPRAY; Start 01/05/17 at 11:00 Magnesium Hydroxide (Milk Of Mag) 30 ml BID PRN PO CONSTIPATION Last administered on 01/16/17 09:09; Admin Dose 30 ML; Start 01/05/17 at 10:30 Nitroglycerin (Nitroglycerin 2% Oint) 0.5 inch Q6 PRN TD CHEST PAIN; Start 03/13 at 10:30 Ondansetron HCl (Zofran Inj) 4 mg Q6H PRN IV NAUSEA Last administered on 00:01; Admin Dose 4 MG; Start 01/05/17 at 10:30 Prednisone (Prednisone) 5 mg DAILY PO Last administered on 02/03/17 09:11; Admin Dose 5 MG; Start 01/05/17 at 12:00 Prednisone (Prednisone) 3 mg DAILY PO Last administered on 02/03/17 09:13; Admin Dose 3 MG; Start 01/05/17 at 12:00 Miscellaneous Information 1 ea NOTE XX ; Start 01/05/17 at 11:00 Glucose (Glutose) 15 gm Q15M PRN PO DECREASED GLUCOSE; Start 01/05/17 at 11:00 Glucose (Glutose) 22.5 gm Q15M PRN PO DECREASED GLUCOSE; Start 01/05/17 at 11: 00 Dextrose (D50w Syringe) 25 ml Q15M PRN IV DECREASED GLUCOSE Last administered on 01/23/17 03:45; Admin Dose 25 ML; Start 01/05/17 at 11:00 Dextrose (D50w Syringe) 50 ml Q15M PRN IV DECREASED GLUCOSE Last administered on 01/08/17 21:33; Admin Dose 50 ML; Start 01/05/17 at 11:00 Glucagon (Glucagen) 1 mg Q15M PRN IM DECREASED GLUCOSE Last administered on 21:08; Admin Dose 1 MG; Start 01/05/17 at 11:00 Glucose (Glutose) 15 gm Q15M PRN BUCCAL DECREASED GLUCOSE Last administered on 01/23/17 21:36; Admin Dose 15 GM; Start 01/05/17 at 11:00 Bumetanide (Bumex) 1 mg BID IV Last administered on 01/13/17 21:06; Admin Dose 1 MG; Start 01/08/17 at 09:00; Status Future Hold Acetaminophen (Tylenol Tab) 650 mg Q6H PRN NGT PAIN AND OR ELEVATED TEMP Last administered on 02/03/17 13:03; Admin Dose 650 MG; Start 01/17/17 at 22:30 Apixaban (Eliquis) 2.5 mg BID NGT Last administered on 02/03/17 23:11; Admin Dose 2.5 MG; Start 01/17/17 at 21:00; Status Future hold Ascorbic Acid (Vitamin C) 500 mg BID NGT Last administered on 02/03/17 23:11 ; Admin Dose 500 MG; Start 01/17/17 at 21:00 Levothyroxine Sodium (Synthroid) 75 mcg DAILY@06 NGT Last administered on 02/04 05:28; Admin Dose 75 MCG; Start 01/18/17 at 06:00 Loratadine (Claritin) 10 mg DAILY NGT Last administered on 02/03/17 09:13; Admin Dose 10 MG; Start 01/18/17 at 09:00 Mirtazapine (Remeron) 15 mg HS NGT Last administered on 02/03/17 23:11; Admin Dose 15 MG; Start 01/17/17 at 21:00 Oxcarbazepine (Trileptal) 600 mg BID NGT Last administered on 02/03/17 23:13 ; Admin Dose 600 MG; Start 01/17/17 at 21:00 Senna (Senokot) 1 tab HS NGT Last administered on 01/25/17 20:06; Admin Dose 1 TAB; Start 01/17/17 at 21:00; Status Future Hold Sertraline HCl (Zoloft) 75 mg DAILY NGT Last administered on 02/03/17 09:12; Admin Dose 75 MG; Start 01/18/17 at 09:00 Sildenafil Citrate (Revatio) 20 mg TID NGT Last administered on 02/03/17 23: 27; Admin Dose 20 MG; Start 01/17/17 at 21:00 Docusate Sodium (Colace Liquid Cup) 100 mg BID NGT Last administered on 09:55; Admin Dose 100 MG; Start 01/17/17 at 21:00; Status Future Hold Famotidine (Pepcid) 20 mg DAILY NGT Last administered on 02/03/17 09:11; Admin Dose 20 MG; Start 01/20/17 at 09:00 Lorazepam (Ativan) 1 mg Q6H PRN IV anxiety Last administered on 01/29/17 14:52 ; Admin Dose 1 MG; Start 01/22/17 at 09:00 Tacrolimus (Prograf) 2 mg QPM NGT Last administered on 02/03/17 23:13; Admin Dose 2 MG; Start 01/24/17 at 21:00 Insulin Aspart (Novolog Insulin Pen) NOVOLOG *MODERATE* ALGORI... Q4 SC Last administered on 02/04/17 09:09; Admin Dose 4 UNIT; Start 01/26/17 at 17:00 Metoclopramide HCl (Reglan) 5 mg Q8H PRN IV VOMITTING; Start 01/26/17 at 15:30 Hydralazine HCl (Apresoline) 25 mg TID PRN GTB ELEVATED SYSTOLIC BP Last administered on 02/01/17 13:58; Admin Dose 25 MG; Start 01/27/17 at 07:00 Fulvestrant (Faslodex) 500 mg Q28D IM Last administered on 01/29/17 21:16; Admin Dose 500 MG; Start 01/29/17 at 21:00 Voriconazole (Vfend) 200 mg BID PO Last administered on 02/03/17 23:11; Admin Dose 200 MG; Start 01/31/17 at 21:00 Metoprolol Tartrate (Lopressor) 50 mg TID NGT Last administered on 02/03/17 23:12; Admin Dose 50 MG; Start 01/31/17 at 21:00 Insulin Glargine (Lantus) 20 unit 08 SC Last administered on 02/04/17 09:07; Admin Dose 20 UNIT; Start 02/02/17 at 08:00 MICHAEL GALICIA DO Feb 04, 2017 11:39
[2017-02-04] MEDS ORDERED: INSULIN ASPART [NOVOLOG] 3 ML PEN SC SCH ×2 (11:50→13:00)
[2017-02-04] MEDS: ACETAMINOPHEN 325 MG TAB NGT PRN (12:23)
--- NOTE | 2017-02-04 13:11 | CONS ---
Date/Time of Note Date/Time of Note DATE: 02/04/17 TIME: 13:08 Assessment/Plan Assessment/Plan Additional Assessment/Plan Assessment and recommendations; 1. Patient admitted with sepsis and pneumonia with significant clinical improvement. Off antibiotics. 2. Chronic renal failure, on hemodialysis. 3. Chronic respiratory failure which is ventilator dependent. 4. History of chronic immunosuppression due to history of renal transplant. History of hypertension, diabetes and hypothyroidism. Continue current treatment. Consider transfer to rehab. Consultation Date/Type/Reason Admit Date/Time Jan 05, 2017 at 00:15 Initial Consult Date 01/05/17 Type of Consultation: Pulmonary Referring Provider: SUSAN SIMENTAL DO 24 HR Interval Summary Free Text/Dictation Patient's condition is stable. Remains chronically ventilator dependent. Getting hemodialysis at bedside. General exam; elderly woman, on ventilator via tracheostomy, awake, currently in no distress. Exam/Review of Systems Vital Signs Vitals Vital Signs Date Time Temp Pulse Resp B/P Pulse Ox O2 Delivery O2 Flow Rate FiO2 02/04/17 12:49 84 02/04/17 11:36 14 98 30 02/04/17 11:27 99.2 106/58 Intake and Output 02/03/17 02/03/17 02/04/17 15:00 23:00 07:00 Intake Total 560 ml 600 ml Output Total 400 ml 350 ml Balance 160 ml 250 ml Exam HEENT exam; supple neck, no JVD lymphadenopathy. Midline trachea. No thyromegaly. Tracheostomy in place. Chest examined; diminished but clear breath sounds. S1-S2 audible, no murmurs. Regular rhythm. Abdomen; soft, no organomegaly. G-tube in place. Bowel sounds are audible. Extremity exam; no edema. Patient has a multiple ecchymosis involving all 4 extremities. LEAD TINNER exam; patient is awake follows commands moves all 4 extremities but exhibiting generalized weakness. Results Result Diagram: 02/03/17 0800 02/03/17 0640 Results 24 hrs Laboratory Tests Test 02/03/17 17:42 02/03/17 21:43 02/04/17 01:43 02/04/17 05:04 Bedside Glucose 239 H 181 153 200 Test 02/04/17 09:01 02/04/17 11:27 Bedside Glucose 217 206 Medications Medications Current Medications Naloxone HCl (Narcan) 0.4 mg Q4 PRN IV SEDATION; Start 01/05/17 at 01:30 Bisacodyl (Dulcolax Supp) 10 mg DAILY NM Last administered on 01/26/17 09:57; Admin Dose 10 MG; Start 01/06/17 at 09:00; Status Future Hold Budesonide (Pulmicort (Neb)) 0.25 mg BID NEB Last administered on 02/04/17 09 :41; Admin Dose 0.25 MG; Start 01/05/17 at 10:30 Fluticasone Propionate (Flonase 0.05% Nasal) 1 spray DAILY NASAL Last administered on 02/04/17 09:07; Admin Dose 1 SPRAY; Start 01/05/17 at 11:00 Magnesium Hydroxide (Milk Of Mag) 30 ml BID PRN PO CONSTIPATION Last administered on 01/16/17 09:09; Admin Dose 30 ML; Start 01/05/17 at 10:30 Nitroglycerin (Nitroglycerin 2% Oint) 0.5 inch Q6 PRN TD CHEST PAIN; Start 03/13 at 10:30 Ondansetron HCl (Zofran Inj) 4 mg Q6H PRN IV NAUSEA Last administered on 00:01; Admin Dose 4 MG; Start 01/05/17 at 10:30 Prednisone (Prednisone) 5 mg DAILY PO Last administered on 02/03/17 09:11; Admin Dose 5 MG; Start 01/05/17 at 12:00 Prednisone (Prednisone) 3 mg DAILY PO Last administered on 02/04/17 12:22; Admin Dose 3 MG; Start 01/05/17 at 12:00 Miscellaneous Information 1 ea NOTE XX ; Start 01/05/17 at 11:00 Glucose (Glutose) 15 gm Q15M PRN PO DECREASED GLUCOSE; Start 01/05/17 at 11:00 Glucose (Glutose) 22.5 gm Q15M PRN PO DECREASED GLUCOSE; Start 01/05/17 at 11: 00 Dextrose (D50w Syringe) 25 ml Q15M PRN IV DECREASED GLUCOSE Last administered on 01/23/17 03:45; Admin Dose 25 ML; Start 01/05/17 at 11:00 Dextrose (D50w Syringe) 50 ml Q15M PRN IV DECREASED GLUCOSE Last administered on 01/08/17 21:33; Admin Dose 50 ML; Start 01/05/17 at 11:00 Glucagon (Glucagen) 1 mg Q15M PRN IM DECREASED GLUCOSE Last administered on 21:08; Admin Dose 1 MG; Start 01/05/17 at 11:00 Glucose (Glutose) 15 gm Q15M PRN BUCCAL DECREASED GLUCOSE Last administered on 01/23/17 21:36; Admin Dose 15 GM; Start 01/05/17 at 11:00 Bumetanide (Bumex) 1 mg BID IV Last administered on 01/13/17 21:06; Admin Dose 1 MG; Start 01/08/17 at 09:00; Status Future Hold Acetaminophen (Tylenol Tab) 650 mg Q6H PRN NGT PAIN AND OR ELEVATED TEMP Last administered on 02/04/17 12:23; Admin Dose 650 MG; Start 01/17/17 at 22:30 Apixaban (Eliquis) 2.5 mg BID NGT Last administered on 02/04/17 12:21; Admin Dose 2.5 MG; Start 01/17/17 at 21:00; Status Future hold Ascorbic Acid (Vitamin C) 500 mg BID NGT Last administered on 02/04/17 12:22 ; Admin Dose 500 MG; Start 01/17/17 at 21:00 Levothyroxine Sodium (Synthroid) 75 mcg DAILY@06 NGT Last administered on 02/04 05:28; Admin Dose 75 MCG; Start 01/18/17 at 06:00 Loratadine (Claritin) 10 mg DAILY NGT Last administered on 02/04/17 12:22; Admin Dose 10 MG; Start 01/18/17 at 09:00 Mirtazapine (Remeron) 15 mg HS NGT Last administered on 02/03/17 23:11; Admin Dose 15 MG; Start 01/17/17 at 21:00 Oxcarbazepine (Trileptal) 600 mg BID NGT Last administered on 02/04/17 12:21 ; Admin Dose 600 MG; Start 01/17/17 at 21:00 Senna (Senokot) 1 tab HS NGT Last administered on 01/25/17 20:06; Admin Dose 1 TAB; Start 01/17/17 at 21:00; Status Future Hold Sertraline HCl (Zoloft) 75 mg DAILY NGT Last administered on 02/04/17 12:23; Admin Dose 75 MG; Start 01/18/17 at 09:00 Sildenafil Citrate (Revatio) 20 mg TID NGT Last administered on 02/03/17 23: 27; Admin Dose 20 MG; Start 01/17/17 at 21:00 Docusate Sodium (Colace Liquid Cup) 100 mg BID NGT Last administered on 09:55; Admin Dose 100 MG; Start 01/17/17 at 21:00; Status Future Hold Famotidine (Pepcid) 20 mg DAILY NGT Last administered on 02/04/17 12:23; Admin Dose 20 MG; Start 01/20/17 at 09:00 Lorazepam (Ativan) 1 mg Q6H PRN IV anxiety Last administered on 01/29/17 14:52 ; Admin Dose 1 MG; Start 01/22/17 at 09:00 Tacrolimus (Prograf) 2 mg QPM NGT Last administered on 02/03/17 23:13; Admin Dose 2 MG; Start 01/24/17 at 21:00 Metoclopramide HCl (Reglan) 5 mg Q8H PRN IV VOMITTING; Start 01/26/17 at 15:30 Hydralazine HCl (Apresoline) 25 mg TID PRN GTB ELEVATED SYSTOLIC BP Last administered on 02/01/17 13:58; Admin Dose 25 MG; Start 01/27/17 at 07:00 Voriconazole (Vfend) 200 mg BID PO Last administered on 02/04/17 12:23; Admin Dose 200 MG; Start 01/31/17 at 21:00 Metoprolol Tartrate (Lopressor) 50 mg TID NGT Last administered on 02/03/17 23:12; Admin Dose 50 MG; Start 01/31/17 at 21:00 Insulin Glargine (Lantus) 24 unit 08 SC ; Start 02/05/17 at 08:00 Diagnostic Test (Pha) (Accu-Chek) 1 ea 02 XX ; Start 02/05/17 at 02:00 Diagnostic Test (Pha) (Accu-Chek) 1 ea 02 XX ; Start 02/05/17 at 02:00 Insulin Aspart (Novolog Insulin Pen) (Adult SC Insulin - Mild Algorithm)... Q4 SC ; Start 02/04/17 at 13:00 JOELLE INFANTE Feb 04, 2017 13:11
[2017-02-04] MEDS: Insulin NOVOLOG SS MILD Algorithm (NPO/TPN/ENTERAL FEEDS) SC SCH ×3 (13:14→21:37)
[2017-02-04] MEDS: MIRTAZAPINE 15 MG TAB NGT SCH (21:24)
--- NOTE | 2017-02-04 22:12 | CONS ---
Date/Time of Note Date/Time of Note DATE: 02/04/17 TIME: 22:11 Consult Date/Type/Reason Admit Date/Time Jan 05, 2017 at 00:15 Initial Consult Date 01/05/17 Type of Consultation: id Ordering Provider: SUSAN SIMENTAL DO Objective Vital Signs Date Time Temp Pulse Resp B/P Pulse Ox O2 Delivery O2 Flow Rate FiO2 02/04/17 17:36 73 103/55 02/04/17 17:18 12 98 30 02/04/17 16:00 98.8 Intake and Output 02/03/17 02/03/17 02/04/17 15:00 23:00 07:00 Intake Total 560 ml 600 ml Output Total 400 ml 350 ml Balance 160 ml 250 ml Results/Medications Result Diagram: 02/03/17 0800 02/03/17 0640 Results 24 hrs Laboratory Tests Test 02/04/17 01:43 02/04/17 05:04 02/04/17 09:01 02/04/17 11:27 Bedside Glucose 153 200 217 206 Test 02/04/17 13:08 02/04/17 17:32 02/04/17 21:22 Bedside Glucose 275 H 179 182 Medications Current Medications Naloxone HCl (Narcan) 0.4 mg Q4 PRN IV SEDATION; Start 01/05/17 at 01:30 Bisacodyl (Dulcolax Supp) 10 mg DAILY [place] Last administered on 01/26/17 09:57; Admin Dose 10 MG; Start 01/06/17 at 09:00; Status Future Hold Budesonide (Pulmicort (Neb)) 0.25 mg BID NEB Last administered on 02/04/17 20 :03; Admin Dose 0.25 MG; Start 01/05/17 at 10:30 Fluticasone Propionate (Flonase 0.05% Nasal) 1 spray DAILY NASAL Last administered on 02/04/17 09:07; Admin Dose 1 SPRAY; Start 01/05/17 at 11:00 Magnesium Hydroxide (Milk Of Mag) 30 ml BID PRN PO CONSTIPATION Last administered on 01/16/17 09:09; Admin Dose 30 ML; Start 01/05/17 at 10:30 Nitroglycerin (Nitroglycerin 2% Oint) 0.5 inch Q6 PRN TD CHEST PAIN; Start 03/13 at 10:30 Ondansetron HCl (Zofran Inj) 4 mg Q6H PRN IV NAUSEA Last administered on 00:01; Admin Dose 4 MG; Start 01/05/17 at 10:30 Prednisone (Prednisone) 5 mg DAILY PO Last administered on 02/04/17 13:36; Admin Dose 5 MG; Start 01/05/17 at 12:00 Prednisone (Prednisone) 3 mg DAILY PO Last administered on 02/04/17 12:22; Admin Dose 3 MG; Start 01/05/17 at 12:00 Miscellaneous Information 1 ea NOTE XX ; Start 01/05/17 at 11:00 Glucose (Glutose) 15 gm Q15M PRN PO DECREASED GLUCOSE; Start 01/05/17 at 11:00 Glucose (Glutose) 22.5 gm Q15M PRN PO DECREASED GLUCOSE; Start 01/05/17 at 11: 00 Dextrose (D50w Syringe) 25 ml Q15M PRN IV DECREASED GLUCOSE Last administered on 01/23/17 03:45; Admin Dose 25 ML; Start 01/05/17 at 11:00 Dextrose (D50w Syringe) 50 ml Q15M PRN IV DECREASED GLUCOSE Last administered on 01/08/17 21:33; Admin Dose 50 ML; Start 01/05/17 at 11:00 Glucagon (Glucagen) 1 mg Q15M PRN IM DECREASED GLUCOSE Last administered on 21:08; Admin Dose 1 MG; Start 01/05/17 at 11:00 Glucose (Glutose) 15 gm Q15M PRN BUCCAL DECREASED GLUCOSE Last administered on 01/23/17 21:36; Admin Dose 15 GM; Start 01/05/17 at 11:00 Bumetanide (Bumex) 1 mg BID IV Last administered on 01/13/17 21:06; Admin Dose 1 MG; Start 01/08/17 at 09:00; Status Future Hold Acetaminophen (Tylenol Tab) 650 mg Q6H PRN NGT PAIN AND OR ELEVATED TEMP Last administered on 02/04/17 12:23; Admin Dose 650 MG; Start 01/17/17 at 22:30 Apixaban (Eliquis) 2.5 mg BID NGT Last administered on 02/04/17 21:25; Admin Dose 2.5 MG; Start 01/17/17 at 21:00; Status Future hold Ascorbic Acid (Vitamin C) 500 mg BID NGT Last administered on 02/04/17 21:24 ; Admin Dose 500 MG; Start 01/17/17 at 21:00 Levothyroxine Sodium (Synthroid) 75 mcg DAILY@06 NGT Last administered on 02/04 05:28; Admin Dose 75 MCG; Start 01/18/17 at 06:00 Loratadine (Claritin) 10 mg DAILY NGT Last administered on 02/04/17 12:22; Admin Dose 10 MG; Start 01/18/17 at 09:00 Mirtazapine (Remeron) 15 mg HS NGT Last administered on 02/04/17 21:24; Admin Dose 15 MG; Start 01/17/17 at 21:00 Oxcarbazepine (Trileptal) 600 mg BID NGT Last administered on 02/04/17 21:26 ; Admin Dose 600 MG; Start 01/17/17 at 21:00 Senna (Senokot) 1 tab HS NGT Last administered on 01/25/17 20:06; Admin Dose 1 TAB; Start 01/17/17 at 21:00; Status Future Hold Sertraline HCl (Zoloft) 75 mg DAILY NGT Last administered on 02/04/17 12:23; Admin Dose 75 MG; Start 01/18/17 at 09:00 Sildenafil Citrate (Revatio) 20 mg TID NGT Last administered on 02/04/17 21: 38; Admin Dose 20 MG; Start 01/17/17 at 21:00 Docusate Sodium (Colace Liquid Cup) 100 mg BID NGT Last administered on 09:55; Admin Dose 100 MG; Start 01/17/17 at 21:00; Status Future Hold Famotidine (Pepcid) 20 mg DAILY NGT Last administered on 02/04/17 12:23; Admin Dose 20 MG; Start 01/20/17 at 09:00 Lorazepam (Ativan) 1 mg Q6H PRN IV anxiety Last administered on 01/29/17 14:52 ; Admin Dose 1 MG; Start 01/22/17 at 09:00 Tacrolimus (Prograf) 2 mg QPM NGT Last administered on 02/04/17 21:24; Admin Dose 2 MG; Start 01/24/17 at 21:00 Metoclopramide HCl (Reglan) 5 mg Q8H PRN IV VOMITTING; Start 01/26/17 at 15:30 Hydralazine HCl (Apresoline) 25 mg TID PRN GTB ELEVATED SYSTOLIC BP Last administered on 02/01/17 13:58; Admin Dose 25 MG; Start 01/27/17 at 07:00 Voriconazole (Vfend) 200 mg BID PO Last administered on 02/04/17 21:23; Admin Dose 200 MG; Start 01/31/17 at 21:00 Metoprolol Tartrate (Lopressor) 50 mg TID NGT Last administered on 02/04/17 16:10; Admin Dose 50 MG; Start 01/31/17 at 21:00 Insulin Glargine (Lantus) 24 unit 08 SC ; Start 02/05/17 at 08:00 Diagnostic Test (Pha) (Accu-Chek) 1 ea 02 XX ; Start 02/05/17 at 02:00 Diagnostic Test (Pha) (Accu-Chek) 1 ea 02 XX ; Start 02/05/17 at 02:00 Insulin Aspart (Novolog Insulin Pen) (Adult SC Insulin - Mild Algorithm)... Q4 SC Last administered on 02/04/17 21:37; Admin Dose 2 UNIT; Start 02/04/17 at 13:00 Assessment/Plan Chief Complaint/Hosp Course SUBJECTIVE: Awake, in HD, looks comfortable, no fevers NDWELLINGS: Trach, PEG, [place], right IJ Abndar. Abx: Vfend PHYSICAL EXAMINATION: GENERAL: This is a fragile, chronically ill-appearing, elderly woman who is awake, in no distress. HEENT: Head atraumatic, normocephalic. Sclerae anicteric. Buccal mucosa dry. NECK: Supple. Tracheostomy present. CHEST: Rise symmetrical. Breath sounds diminished to bases. HEART: S1, S2. ABDOMEN: Soft, bowel sounds present. EXTREMITIES: Without cyanosis. Bilateral trace edema. ASSESSMENT: 1. Status post sepsis/pneumonia. 2. Acute respiratory failure. 3. Acute on chronic kidney disease, now on hemodialysis. 4. History of kidney transplant, remains on immunosuppressive therapy. 5. Dysphagia. 6. Anemia. 7. Bacteuria==> cx + yeast PLAN: The patient remains stable. Continue Vfend, will ask RN to change Lanie COTO staff Problems: MAXIMUS ETIENNE NP Feb 04, 2017 22:12
[2017-02-05] VITALS (19 sets, daily range): BP systolic 103–149; BP diastolic 46–78; PULSE 73–97; RESP 12–19
[2017-02-05] MEDS: Insulin NOVOLOG SS MILD Algorithm (NPO/TPN/ENTERAL FEEDS) SC SCH ×5 (00:45→18:00)
[2017-02-05] MEDS: ALBUTEROL 18 GM INHALER INH SCH ×3 (01:00→13:22)
[2017-02-05] MEDS: IPRATROPIUM (HFA) 12.9 GM INHALER INH SCH ×3 (01:00→13:22)
[2017-02-05] MEDS ORDERED: ACCU-CHEK XX SCH ×2 (02:00)
[2017-02-05] MEDS: LEVOTHYROXINE 75 MCG TAB NGT SCH (05:59)
[2017-02-05] MEDS ORDERED: INSULIN GLARGINE [LANtus] 3 ML PEN SC SCH (08:00)
--- NOTE | 2017-02-05 08:14 | CONS ---
Date/Time of Note Date/Time of Note DATE: 02/05/17 TIME: 08:13 Consult Date/Type/Reason Admit Date/Time Jan 05, 2017 at 00:15 Initial Consult Date 01/05/17 Type of Consultation: card Ordering Provider: SUSAN SIMENTAL DO Subjective CARDIOLOGY FOLLOW UP NOTE: D/W Staff and rhythm was reviewed. pt has remained in Afib. HR has been stable BP has been stable now pt still remains on vent. s/p trach. NO reports of any chest pain or pressure S/P PEG 01/19/17 S/P Trach 01/27/17 pt denies any cp to me OBJECTIVE: General: s/p trach on vent. HEENT: NC/AT. pupils are equal. round. NECK: s/p trach. no stridor. CV:irregularly irregular. systolic murmur; no gallop or rubs. PULM: no wheezing, + mild rhonchi. GI: SOFT, NT, ND, no rebound or guarding S/P PEG Extremity: trace B/L LE edema. no clubbing. neuro: awake. responds appropriately . Psych: appears anxious but pleasant rectal: deferred : normal ECHO 12/16/16: Personally reviewed 1. Normal left ventricular systolic function. Normal left ventricular cavity size. Moderate concentric left ventricular hypertrophy. Ejection fraction is visually estimated at 65 %. Abnormal Diastolic Function. 2. There is moderate enlargement of left atrium. 3. Mild mitral leaflet calcification. Mild mitral annular calcification. Trace mitral regurgitation. 4. Aortic sclerosis without stenosis. Trace aortic valve regurgitation. 5. Normal appearance of the tricuspid valve. Estimated peak PA systolic pressure 38 mmHg. There is mild tricuspid regurgitation. Objective Vital Signs Date Time Temp Pulse Resp B/P Pulse Ox O2 Delivery O2 Flow Rate FiO2 02/05/17 07:50 98.1 96 19 119/69 98 02/05/17 05:00 30 Intake and Output 02/04/17 02/04/17 02/05/17 15:00 23:00 07:00 Intake Total 500 ml 560 ml 590 ml Output Total 3000 ml 500 ml 500 ml Balance -2500 ml 60 ml 90 ml Results/Medications Result Diagram: 02/03/17 0800 02/03/17 0640 Results 24 hrs Laboratory Tests Test 02/04/17 09:01 02/04/17 11:27 02/04/17 13:08 02/04/17 17:32 Bedside Glucose 217 206 275 H 179 Test 02/04/17 21:22 02/05/17 00:37 02/05/17 05:57 Bedside Glucose 182 202 123 Medications Current Medications Naloxone HCl (Narcan) 0.4 mg Q4 PRN IV SEDATION; Start 01/05/17 at 01:30 Bisacodyl (Dulcolax Supp) 10 mg DAILY [place] Last administered on 01/26/17 09:57; Admin Dose 10 MG; Start 01/06/17 at 09:00; Status Future Hold Budesonide (Pulmicort (Neb)) 0.25 mg BID NEB Last administered on 02/04/17 20 :03; Admin Dose 0.25 MG; Start 01/05/17 at 10:30 Fluticasone Propionate (Flonase 0.05% Nasal) 1 spray DAILY NASAL Last administered on 02/04/17 09:07; Admin Dose 1 SPRAY; Start 01/05/17 at 11:00 Magnesium Hydroxide (Milk Of Mag) 30 ml BID PRN PO CONSTIPATION Last administered on 01/16/17 09:09; Admin Dose 30 ML; Start 01/05/17 at 10:30 Nitroglycerin (Nitroglycerin 2% Oint) 0.5 inch Q6 PRN TD CHEST PAIN; Start 03/13 at 10:30 Ondansetron HCl (Zofran Inj) 4 mg Q6H PRN IV NAUSEA Last administered on 00:01; Admin Dose 4 MG; Start 01/05/17 at 10:30 Prednisone (Prednisone) 5 mg DAILY PO Last administered on 02/04/17 13:36; Admin Dose 5 MG; Start 01/05/17 at 12:00 Prednisone (Prednisone) 3 mg DAILY PO Last administered on 02/04/17 12:22; Admin Dose 3 MG; Start 01/05/17 at 12:00 Miscellaneous Information 1 ea NOTE XX ; Start 01/05/17 at 11:00 Glucose (Glutose) 15 gm Q15M PRN PO DECREASED GLUCOSE; Start 01/05/17 at 11:00 Glucose (Glutose) 22.5 gm Q15M PRN PO DECREASED GLUCOSE; Start 01/05/17 at 11: 00 Dextrose (D50w Syringe) 25 ml Q15M PRN IV DECREASED GLUCOSE Last administered on 01/23/17 03:45; Admin Dose 25 ML; Start 01/05/17 at 11:00 Dextrose (D50w Syringe) 50 ml Q15M PRN IV DECREASED GLUCOSE Last administered on 01/08/17 21:33; Admin Dose 50 ML; Start 01/05/17 at 11:00 Glucagon (Glucagen) 1 mg Q15M PRN IM DECREASED GLUCOSE Last administered on 21:08; Admin Dose 1 MG; Start 01/05/17 at 11:00 Glucose (Glutose) 15 gm Q15M PRN BUCCAL DECREASED GLUCOSE Last administered on 01/23/17 21:36; Admin Dose 15 GM; Start 01/05/17 at 11:00 Bumetanide (Bumex) 1 mg BID IV Last administered on 01/13/17 21:06; Admin Dose 1 MG; Start 01/08/17 at 09:00; Status Future Hold Acetaminophen (Tylenol Tab) 650 mg Q6H PRN NGT PAIN AND OR ELEVATED TEMP Last administered on 02/04/17 12:23; Admin Dose 650 MG; Start 01/17/17 at 22:30 Apixaban (Eliquis) 2.5 mg BID NGT Last administered on 02/04/17 21:25; Admin Dose 2.5 MG; Start 01/17/17 at 21:00; Status Future hold Ascorbic Acid (Vitamin C) 500 mg BID NGT Last administered on 02/04/17 21:24 ; Admin Dose 500 MG; Start 01/17/17 at 21:00 Levothyroxine Sodium (Synthroid) 75 mcg DAILY@06 NGT Last administered on 02/05 05:59; Admin Dose 75 MCG; Start 01/18/17 at 06:00 Loratadine (Claritin) 10 mg DAILY NGT Last administered on 02/04/17 12:22; Admin Dose 10 MG; Start 01/18/17 at 09:00 Mirtazapine (Remeron) 15 mg HS NGT Last administered on 02/04/17 21:24; Admin Dose 15 MG; Start 01/17/17 at 21:00 Oxcarbazepine (Trileptal) 600 mg BID NGT Last administered on 02/04/17 21:26 ; Admin Dose 600 MG; Start 01/17/17 at 21:00 Senna (Senokot) 1 tab HS NGT Last administered on 01/25/17 20:06; Admin Dose 1 TAB; Start 01/17/17 at 21:00; Status Future Hold Sertraline HCl (Zoloft) 75 mg DAILY NGT Last administered on 02/04/17 12:23; Admin Dose 75 MG; Start 01/18/17 at 09:00 Sildenafil Citrate (Revatio) 20 mg TID NGT Last administered on 02/04/17 21: 38; Admin Dose 20 MG; Start 01/17/17 at 21:00 Docusate Sodium (Colace Liquid Cup) 100 mg BID NGT Last administered on 09:55; Admin Dose 100 MG; Start 01/17/17 at 21:00; Status Future Hold Famotidine (Pepcid) 20 mg DAILY NGT Last administered on 02/04/17 12:23; Admin Dose 20 MG; Start 01/20/17 at 09:00 Lorazepam (Ativan) 1 mg Q6H PRN IV anxiety Last administered on 01/29/17 14:52 ; Admin Dose 1 MG; Start 01/22/17 at 09:00 Tacrolimus (Prograf) 2 mg QPM NGT Last administered on 02/04/17 21:24; Admin Dose 2 MG; Start 01/24/17 at 21:00 Metoclopramide HCl (Reglan) 5 mg Q8H PRN IV VOMITTING; Start 01/26/17 at 15:30 Hydralazine HCl (Apresoline) 25 mg TID PRN GTB ELEVATED SYSTOLIC BP Last administered on 02/01/17 13:58; Admin Dose 25 MG; Start 01/27/17 at 07:00 Voriconazole (Vfend) 200 mg BID PO Last administered on 02/04/17 21:23; Admin Dose 200 MG; Start 01/31/17 at 21:00 Metoprolol Tartrate (Lopressor) 50 mg TID NGT Last administered on 02/04/17 16:10; Admin Dose 50 MG; Start 01/31/17 at 21:00 Insulin Glargine (Lantus) 24 unit 08 SC ; Start 02/05/17 at 08:00 Diagnostic Test (Pha) (Accu-Chek) 1 ea 02 XX ; Start 02/05/17 at 02:00 Diagnostic Test (Pha) (Accu-Chek) 1 ea 02 XX ; Start 02/05/17 at 02:00 Insulin Aspart (Novolog Insulin Pen) (Adult SC Insulin - Mild Algorithm)... Q4 SC Last administered on 02/05/17t 00:45; Admin Dose 2 UNIT; Start 02/04/17 at 13:00 Assessment/Plan Chief Complaint/Hosp Course Assessment: 1. s/p cardiopulmonary arrest: Most likely due to pulmonary arrest 2. P afib: now remains in persistent Afib. 3. History of renal failure status post renal transplant: now with KATI on CKD: currently requiring HD. 4. Acute on chronic hypoxemic hypercapnic respiratory failure status post reintubation: currently on the vent: AWAITING TRACH. 5. Shock: resolved now. BP is stable now 6. ANEMIA 7. breast cancer 8. HTN: 9. anxiety 10. DM 11. Hypothyroidism: on synthroid. 12. pleural effusion : s/p thoracentesis 13. Dysphagia: s/p PEG Recommendations: vent support for now anti- rejection medications to be adjusted as per renal team. HD as per renal. cont DM control thyroid supplement cont betablocker at current dose for now. correct lytes prn with HD. cont tele monitoring transfusion prn CONT eliquis as long as no active bleeding . Thank you for this referral I will continue to follow along with you. AUGUSTINA MALDONADO MD [facility] Problems: AUGUSTINA MALDONADO MD Feb 05, 2017 08:14
[2017-02-05] MEDS: BUDESONIDE (NEB) 0.25 MG/2 ML AMP NEB SCH (09:31)
[2017-02-05] MEDS: TACROLIMUS 1 MG CAP NGT SCH (09:58)
[2017-02-05] MEDS: APIXABAN 5 MG TABLET NGT SCH (09:58)
[2017-02-05] MEDS: SERTRALINE 50 MG TAB NGT SCH (09:58)
[2017-02-05] MEDS: SILDENAFIL 20 MG TAB NGT SCH ×2 (09:58→12:29)
[2017-02-05] MEDS: LORATADINE 10 MG TAB NGT SCH (09:59)
[2017-02-05] MEDS: VORICONAZOLE 200 MG TAB PO SCH (09:59)
[2017-02-05] MEDS: METOPROLOL 50 MG TAB NGT SCH ×2 (09:59→12:29)
[2017-02-05] MEDS: ASCORBIC ACID 500 MG TAB NGT SCH (09:59)
[2017-02-05] MEDS: OXCARBAZEPINE 300 MG TAB NGT SCH (09:59)
[2017-02-05] MEDS: FAMOTIDINE 20 MG TAB NGT SCH (09:59)
[2017-02-05] MEDS: predniSONE 1 MG TAB PO SCH (10:00)
[2017-02-05] MEDS: FLUTICASONE 0.05% 16 GM NAS SPRAY NASAL SCH (10:01)
[2017-02-05] MEDS: BALSAM PERU/CASTOR OIL 60 GM TUBE TOP SCH (10:01)
[2017-02-05] MEDS: predniSONE 5 MG TAB PO SCH (10:17)
--- NOTE | 2017-02-05 12:02 | CONS ---
Date/Time of Note Date/Time of Note DATE: 02/05/17 TIME: 12:02 Consultation Date/Type/Reason Admit Date/Time Jan 05, 2017 at 00:15 Initial Consult Date 01/05/17 Type of Consultation: pulmonary Referring Provider: SUSAN SIMENTAL DO 24 HR Interval Summary Free Text/Dictation dictated # [id number] Exam/Review of Systems Vital Signs Vitals Vital Signs Date Time Temp Pulse Resp B/P Pulse Ox O2 Delivery O2 Flow Rate FiO2 02/05/17 11:34 98.7 89 19 111/53 98 02/05/17 09:20 30 Intake and Output 02/04/17 02/04/17 02/05/17 15:00 23:00 07:00 Intake Total 500 ml 560 ml 590 ml Output Total 3000 ml 500 ml 500 ml Balance -2500 ml 60 ml 90 ml Results Result Diagram: 02/03/17 0800 02/03/17 0640 Results 24 hrs Laboratory Tests Test 02/04/17 13:08 02/04/17 17:32 02/04/17 21:22 02/05/17 00:37 Bedside Glucose 275 H 179 182 202 Test 02/05/17 05:57 02/05/17 09:57 Bedside Glucose 123 285 H Medications Medications Current Medications Naloxone HCl (Narcan) 0.4 mg Q4 PRN IV SEDATION; Start 01/05/17 at 01:30 Bisacodyl (Dulcolax Supp) 10 mg DAILY [place] Last administered on 01/26/17 09:57; Admin Dose 10 MG; Start 01/06/17 at 09:00; Status Future Hold Budesonide (Pulmicort (Neb)) 0.25 mg BID NEB Last administered on 02/05/17 09 :31; Admin Dose 0.25 MG; Start 01/05/17 at 10:30 Fluticasone Propionate (Flonase 0.05% Nasal) 1 spray DAILY NASAL Last administered on 02/05/17 10:01; Admin Dose 1 SPRAY; Start 01/05/17 at 11:00 Magnesium Hydroxide (Milk Of Mag) 30 ml BID PRN PO CONSTIPATION Last administered on 01/16/17 09:09; Admin Dose 30 ML; Start 01/05/17 at 10:30 Nitroglycerin (Nitroglycerin 2% Oint) 0.5 inch Q6 PRN TD CHEST PAIN; Start 03/13 at 10:30 Ondansetron HCl (Zofran Inj) 4 mg Q6H PRN IV NAUSEA Last administered on 00:01; Admin Dose 4 MG; Start 01/05/17 at 10:30 Prednisone (Prednisone) 5 mg DAILY PO Last administered on 02/05/17 10:17; Admin Dose 5 MG; Start 01/05/17 at 12:00 Prednisone (Prednisone) 3 mg DAILY PO Last administered on 02/05/17 10:00; Admin Dose 3 MG; Start 01/05/17 at 12:00 Miscellaneous Information 1 ea NOTE XX ; Start 01/05/17 at 11:00 Glucose (Glutose) 15 gm Q15M PRN PO DECREASED GLUCOSE; Start 01/05/17 at 11:00 Glucose (Glutose) 22.5 gm Q15M PRN PO DECREASED GLUCOSE; Start 01/05/17 at 11: 00 Dextrose (D50w Syringe) 25 ml Q15M PRN IV DECREASED GLUCOSE Last administered on 01/23/17 03:45; Admin Dose 25 ML; Start 01/05/17 at 11:00 Dextrose (D50w Syringe) 50 ml Q15M PRN IV DECREASED GLUCOSE Last administered on 01/08/17 21:33; Admin Dose 50 ML; Start 01/05/17 at 11:00 Glucagon (Glucagen) 1 mg Q15M PRN IM DECREASED GLUCOSE Last administered on 21:08; Admin Dose 1 MG; Start 01/05/17 at 11:00 Glucose (Glutose) 15 gm Q15M PRN BUCCAL DECREASED GLUCOSE Last administered on 01/23/17 21:36; Admin Dose 15 GM; Start 01/05/17 at 11:00 Bumetanide (Bumex) 1 mg BID IV Last administered on 01/13/17 21:06; Admin Dose 1 MG; Start 01/08/17 at 09:00; Status Future Hold Acetaminophen (Tylenol Tab) 650 mg Q6H PRN NGT PAIN AND OR ELEVATED TEMP Last administered on 02/04/17 12:23; Admin Dose 650 MG; Start 01/17/17 at 22:30 Apixaban (Eliquis) 2.5 mg BID NGT Last administered on 02/05/17 09:58; Admin Dose 2.5 MG; Start 01/17/17 at 21:00; Status Future hold Ascorbic Acid (Vitamin C) 500 mg BID NGT Last administered on 02/05/17 09:59 ; Admin Dose 500 MG; Start 01/17/17 at 21:00 Levothyroxine Sodium (Synthroid) 75 mcg DAILY@06 NGT Last administered on 02/05 05:59; Admin Dose 75 MCG; Start 01/18/17 at 06:00 Loratadine (Claritin) 10 mg DAILY NGT Last administered on 02/05/17 09:59; Admin Dose 10 MG; Start 01/18/17 at 09:00 Mirtazapine (Remeron) 15 mg HS NGT Last administered on 02/04/17 21:24; Admin Dose 15 MG; Start 01/17/17 at 21:00 Oxcarbazepine (Trileptal) 600 mg BID NGT Last administered on 02/05/17 09:59 ; Admin Dose 600 MG; Start 01/17/17 at 21:00 Senna (Senokot) 1 tab HS NGT Last administered on 01/25/17 20:06; Admin Dose 1 TAB; Start 01/17/17 at 21:00; Status Future Hold Sertraline HCl (Zoloft) 75 mg DAILY NGT Last administered on 02/05/17 09:58; Admin Dose 75 MG; Start 01/18/17 at 09:00 Sildenafil Citrate (Revatio) 20 mg TID NGT Last administered on 02/05/17 09: 58; Admin Dose 20 MG; Start 01/17/17 at 21:00 Docusate Sodium (Colace Liquid Cup) 100 mg BID NGT Last administered on 09:55; Admin Dose 100 MG; Start 01/17/17 at 21:00; Status Future Hold Famotidine (Pepcid) 20 mg DAILY NGT Last administered on 02/05/17 09:59; Admin Dose 20 MG; Start 01/20/17 at 09:00 Lorazepam (Ativan) 1 mg Q6H PRN IV anxiety Last administered on 01/29/17 14:52 ; Admin Dose 1 MG; Start 01/22/17 at 09:00 Tacrolimus (Prograf) 2 mg QPM NGT Last administered on 02/04/17 21:24; Admin Dose 2 MG; Start 01/24/17 at 21:00 Metoclopramide HCl (Reglan) 5 mg Q8H PRN IV VOMITTING; Start 01/26/17 at 15:30 Hydralazine HCl (Apresoline) 25 mg TID PRN GTB ELEVATED SYSTOLIC BP Last administered on 02/01/17 13:58; Admin Dose 25 MG; Start 01/27/17 at 07:00 Voriconazole (Vfend) 200 mg BID PO Last administered on 02/05/17 09:59; Admin Dose 200 MG; Start 01/31/17 at 21:00 Metoprolol Tartrate (Lopressor) 50 mg TID NGT Last administered on 02/05/17 09:59; Admin Dose 50 MG; Start 01/31/17 at 21:00 Insulin Glargine (Lantus) 24 unit 08 SC Last administered on 02/05/17 10:03; Admin Dose 24 UNIT; Start 02/05/17 at 08:00 Diagnostic Test (Pha) (Accu-Chek) 1 ea 02 XX ; Start 02/05/17 at 02:00 Diagnostic Test (Pha) (Accu-Chek) 1 ea 02 XX ; Start 02/05/17 at 02:00 Insulin Aspart (Novolog Insulin Pen) (Adult SC Insulin - Mild Algorithm)... Q4 SC Last administered on 02/05/17 10:04; Admin Dose 4 UNIT; Start 02/04/17 at 13:00 JOELLE INFANTE Feb 05, 2017 12:02
--- NOTE | 2017-02-05 12:29 | CONS ---
DATE OF ADMISSION: 01/05/2017 DATE OF CONSULTATION: 02/05/2017 HISTORY OF PRESENT ILLNESS: The patient's condition remains stable. The patient remains chronically ventilator dependent, has remained hemodynamically stable. PHYSICAL EXAMINATION: GENERAL: Elderly woman, awake, alert, currently in no distress. VITAL SIGNS: Temperature is 98.7 degrees Fahrenheit, heart rate is 78 per minute, blood pressure 111/53, O2 saturation 98%, respiratory rate is 18 per minute. Current ventilator settings are AC of 12, tidal volume 450, PEEP of 5, 30% FIO2. HEENT: Supple neck, no JVD, no lymphadenopathy, midline trachea, no thyromegaly. Patient has fair dentition. Pupils are mid-size and reactive to light. No neck masses. Tracheostomy in place. Insertion site is clean. CHEST: Diminished but clear breath sounds. HEART: S1, S2 audible. No murmurs, regular rhythm. ABDOMEN: Soft, nondistended. G-tube in place. Bowel sounds audible. EXTREMITIES: No peripheral edema. NEUROLOGIC: Patient is awake and follows simple commands. MEDICATIONS: 1. Acetaminophen on a p.r.n. basis. 2. Albuterol q.6h. 3. Apixaban 2.5 mg b.i.d. 4. Patient is on tube feeding. 5. Pulmicort 0.25 mg b.i.d. 6. Bumex 1 mg b.i.d. IV. 7. Pepcid 20 mg daily. 8. Sliding scale insulin. 9. Lantus insulin 24 units daily. 10. Synthroid 0.075 mg a day. 11. Metoprolol 50 mg b.i.d. 12. Prednisone 3 mg daily. 13. Zoloft 75 mg daily. 15. Revatio 20 mg t.i.d. 16. Prograf 2 mg daily. ASSESSMENT AND PLAN: 1. Patient admitted with sepsis and pneumonia with significant clinical improvement off antibiotics. 2. Chronic renal failure on hemodialysis. 3. History of chronic immunosuppression on account of renal transplant. 4. Pulmonary hypertension. 5. Systemic hypertension. RECOMMENDATIONS: Continue current treatment. [facility] Dictated By: JOELLE LAURA/AFSHAN Conf#: [id number] DID#: [id number] [facility]
--- NOTE | 2017-02-05 14:08 | CONS ---
Date/Time of Note Date/Time of Note DATE: 02/05/17 TIME: 14:07 Consult Date/Type/Reason Admit Date/Time Jan 05, 2017 at 00:15 Initial Consult Date 01/05/17 Type of Consultation: ID Ordering Provider: SUSAN SIMENTAL DO Objective Vital Signs Date Time Temp Pulse Resp B/P Pulse Ox O2 Delivery O2 Flow Rate FiO2 02/05/17 13:20 72 12 100 30 02/05/17 11:34 98.7 111/53 Intake and Output 02/04/17 02/04/17 02/05/17 15:00 23:00 07:00 Intake Total 500 ml 560 ml 590 ml Output Total 3000 ml 500 ml 500 ml Balance -2500 ml 60 ml 90 ml Results/Medications Result Diagram: 02/03/17 0800 02/03/17 0640 Results 24 hrs Laboratory Tests Test 02/04/17 17:32 02/04/17 21:22 02/05/17 00:37 02/05/17 05:57 Bedside Glucose 179 182 202 123 Test 02/05/17 09:57 02/05/17 12:28 Bedside Glucose 285 H 196 Medications Current Medications Naloxone HCl (Narcan) 0.4 mg Q4 PRN IV SEDATION; Start 01/05/17 at 01:30 Bisacodyl (Dulcolax Supp) 10 mg DAILY [place] Last administered on 01/26/17 09:57; Admin Dose 10 MG; Start 01/06/17 at 09:00; Status Future Hold Budesonide (Pulmicort (Neb)) 0.25 mg BID NEB Last administered on 02/05/17 09 :31; Admin Dose 0.25 MG; Start 01/05/17 at 10:30 Fluticasone Propionate (Flonase 0.05% Nasal) 1 spray DAILY NASAL Last administered on 02/05/17 10:01; Admin Dose 1 SPRAY; Start 01/05/17 at 11:00 Magnesium Hydroxide (Milk Of Mag) 30 ml BID PRN PO CONSTIPATION Last administered on 01/16/17 09:09; Admin Dose 30 ML; Start 01/05/17 at 10:30 Nitroglycerin (Nitroglycerin 2% Oint) 0.5 inch Q6 PRN TD CHEST PAIN; Start 03/13 at 10:30 Ondansetron HCl (Zofran Inj) 4 mg Q6H PRN IV NAUSEA Last administered on 00:01; Admin Dose 4 MG; Start 01/05/17 at 10:30 Prednisone (Prednisone) 5 mg DAILY PO Last administered on 02/05/17 10:17; Admin Dose 5 MG; Start 01/05/17 at 12:00 Prednisone (Prednisone) 3 mg DAILY PO Last administered on 02/05/17 10:00; Admin Dose 3 MG; Start 01/05/17 at 12:00 Miscellaneous Information 1 ea NOTE XX ; Start 01/05/17 at 11:00 Glucose (Glutose) 15 gm Q15M PRN PO DECREASED GLUCOSE; Start 01/05/17 at 11:00 Glucose (Glutose) 22.5 gm Q15M PRN PO DECREASED GLUCOSE; Start 01/05/17 at 11: 00 Dextrose (D50w Syringe) 25 ml Q15M PRN IV DECREASED GLUCOSE Last administered on 01/23/17 03:45; Admin Dose 25 ML; Start 01/05/17 at 11:00 Dextrose (D50w Syringe) 50 ml Q15M PRN IV DECREASED GLUCOSE Last administered on 01/08/17 21:33; Admin Dose 50 ML; Start 01/05/17 at 11:00 Glucagon (Glucagen) 1 mg Q15M PRN IM DECREASED GLUCOSE Last administered on 21:08; Admin Dose 1 MG; Start 01/05/17 at 11:00 Glucose (Glutose) 15 gm Q15M PRN BUCCAL DECREASED GLUCOSE Last administered on 01/23/17 21:36; Admin Dose 15 GM; Start 01/05/17 at 11:00 Bumetanide (Bumex) 1 mg BID IV Last administered on 01/13/17 21:06; Admin Dose 1 MG; Start 01/08/17 at 09:00; Status Future Hold Acetaminophen (Tylenol Tab) 650 mg Q6H PRN NGT PAIN AND OR ELEVATED TEMP Last administered on 02/04/17 12:23; Admin Dose 650 MG; Start 01/17/17 at 22:30 Apixaban (Eliquis) 2.5 mg BID NGT Last administered on 02/05/17 09:58; Admin Dose 2.5 MG; Start 01/17/17 at 21:00; Status Future hold Ascorbic Acid (Vitamin C) 500 mg BID NGT Last administered on 02/05/17 09:59 ; Admin Dose 500 MG; Start 01/17/17 at 21:00 Levothyroxine Sodium (Synthroid) 75 mcg DAILY@06 NGT Last administered on 02/05 05:59; Admin Dose 75 MCG; Start 01/18/17 at 06:00 Loratadine (Claritin) 10 mg DAILY NGT Last administered on 02/05/17 09:59; Admin Dose 10 MG; Start 01/18/17 at 09:00 Mirtazapine (Remeron) 15 mg HS NGT Last administered on 02/04/17 21:24; Admin Dose 15 MG; Start 01/17/17 at 21:00 Oxcarbazepine (Trileptal) 600 mg BID NGT Last administered on 02/05/17 09:59 ; Admin Dose 600 MG; Start 01/17/17 at 21:00 Senna (Senokot) 1 tab HS NGT Last administered on 01/25/17 20:06; Admin Dose 1 TAB; Start 01/17/17 at 21:00; Status Future Hold Sertraline HCl (Zoloft) 75 mg DAILY NGT Last administered on 02/05/17 09:58; Admin Dose 75 MG; Start 01/18/17 at 09:00 Sildenafil Citrate (Revatio) 20 mg TID NGT Last administered on 02/05/17 12: 29; Admin Dose 20 MG; Start 01/17/17 at 21:00 Docusate Sodium (Colace Liquid Cup) 100 mg BID NGT Last administered on 09:55; Admin Dose 100 MG; Start 01/17/17 at 21:00; Status Future Hold Famotidine (Pepcid) 20 mg DAILY NGT Last administered on 02/05/17 09:59; Admin Dose 20 MG; Start 01/20/17 at 09:00 Lorazepam (Ativan) 1 mg Q6H PRN IV anxiety Last administered on 01/29/17 14:52 ; Admin Dose 1 MG; Start 01/22/17 at 09:00 Tacrolimus (Prograf) 2 mg QPM NGT Last administered on 02/04/17 21:24; Admin Dose 2 MG; Start 01/24/17 at 21:00 Metoclopramide HCl (Reglan) 5 mg Q8H PRN IV VOMITTING; Start 01/26/17 at 15:30 Hydralazine HCl (Apresoline) 25 mg TID PRN GTB ELEVATED SYSTOLIC BP Last administered on 02/01/17 13:58; Admin Dose 25 MG; Start 01/27/17 at 07:00 Voriconazole (Vfend) 200 mg BID PO Last administered on 02/05/17 09:59; Admin Dose 200 MG; Start 01/31/17 at 21:00 Metoprolol Tartrate (Lopressor) 50 mg TID NGT Last administered on 02/05/17 12:29; Admin Dose 50 MG; Start 01/31/17 at 21:00 Insulin Glargine (Lantus) 24 unit 08 SC Last administered on 02/05/17 10:03; Admin Dose 24 UNIT; Start 02/05/17 at 08:00 Diagnostic Test (Pha) (Accu-Chek) 1 ea 02 XX ; Start 02/05/17 at 02:00 Diagnostic Test (Pha) (Accu-Chek) 1 ea 02 XX ; Start 02/05/17 at 02:00 Insulin Aspart (Novolog Insulin Pen) (Adult SC Insulin - Mild Algorithm)... Q4 SC Last administered on 02/05/17 12:31; Admin Dose 2 UNIT; Start 02/04/17 at 13:00 Assessment/Plan Chief Complaint/Hosp Course SUBJECTIVE: Awake, looks comfortable, no fevers NDWELLINGS: Trach, PEG, [place], right IJ Bandar. Abx: Vfend PHYSICAL EXAMINATION: GENERAL: This is a fragile, chronically ill-appearing, elderly woman who is awake, in no distress. HEENT: Head atraumatic, normocephalic. Sclerae anicteric. Buccal mucosa dry. NECK: Supple. Tracheostomy present. CHEST: Rise symmetrical. Breath sounds diminished to bases. HEART: S1, S2. ABDOMEN: Soft, bowel sounds present. EXTREMITIES: Without cyanosis. Bilateral trace edema. ASSESSMENT: 1. Status post sepsis/pneumonia. 2. Acute respiratory failure. 3. Acute on chronic kidney disease, now on hemodialysis. 4. History of kidney transplant, remains on immunosuppressive therapy. 5. Dysphagia. 6. Anemia. 7. Bacteuria==> cx + yeast PLAN: The patient remains stable. Continue Vfend, change Lanie [facility] staff Problems: MAXIMUS ETIENNE NP Feb 05, 2017 14:08
--- NOTE | 2017-02-05 14:34 | CONS ---
Date/Time of Note Date/Time of Note DATE: 02/05/17 TIME: 14:33 Consult Date/Type/Reason Admit Date/Time Jan 05, 2017 at 00:15 Initial Consult Date 01/05/17 Type of Consultation: nephrology Ordering Provider: SUSAN ROSENTHAL DO Subjective The patient is stable. No events overnight. No fevers, chills, nausea, vomiting. Patient had hemodialysis yesterday, tolerated well with 3 liters removed. No other acute events noted. No hemoptysis, hematemesis or hematochezia. no reports of melena, hematuria, new rash, dyspnea, fever, chill or diaphoresis vent settings were reviewed d/w Dr Rosenthal s/p hd yesterday remains oliguric OBJECTIVE: HEENT: Head is normocephalic. NECK: Supple. HEART: Regular rate. LUNGS: Show diminished breath sounds at base. ABDOMEN: Soft, nontender to palpation. No rebound or guarding. EXTREMITIES: Negative for clubbing, cyanosis. Positive edema. DERMATOLOGIC: No rashes. MUSCULOSKELETAL: No joint effusions. NEUROLOGIC: No change in exam. Objective Vital Signs Date Time Temp Pulse Resp B/P Pulse Ox O2 Delivery O2 Flow Rate FiO2 02/05/17 13:20 72 12 100 30 02/05/17 11:34 98.7 111/53 Intake and Output 02/04/17 02/04/17 02/05/17 15:00 23:00 07:00 Intake Total 500 ml 560 ml 590 ml Output Total 3000 ml 500 ml 500 ml Balance -2500 ml 60 ml 90 ml Results/Medications Result Diagram: 02/03/17 0800 02/03/17 0640 Results 24 hrs Laboratory Tests Test 02/04/17 17:32 02/04/17 21:22 02/05/17 00:37 02/05/17 05:57 Bedside Glucose 179 182 202 123 Test 02/05/17 09:57 02/05/17 12:28 Bedside Glucose 285 H 196 Medications Current Medications Naloxone HCl (Narcan) 0.4 mg Q4 PRN IV SEDATION; Start 01/05/17 at 01:30 Bisacodyl (Dulcolax Supp) 10 mg DAILY LA Last administered on 01/26/17 09:57; Admin Dose 10 MG; Start 01/06/17 at 09:00; Status Future Hold Budesonide (Pulmicort (Neb)) 0.25 mg BID NEB Last administered on 02/05/17 09 :31; Admin Dose 0.25 MG; Start 01/05/17 at 10:30 Fluticasone Propionate (Flonase 0.05% Nasal) 1 spray DAILY NASAL Last administered on 02/05/17 10:01; Admin Dose 1 SPRAY; Start 01/05/17 at 11:00 Magnesium Hydroxide (Milk Of Mag) 30 ml BID PRN PO CONSTIPATION Last administered on 01/16/17 09:09; Admin Dose 30 ML; Start 01/05/17 at 10:30 Nitroglycerin (Nitroglycerin 2% Oint) 0.5 inch Q6 PRN TD CHEST PAIN; Start 03/13 at 10:30 Ondansetron HCl (Zofran Inj) 4 mg Q6H PRN IV NAUSEA Last administered on 00:01; Admin Dose 4 MG; Start 01/05/17 at 10:30 Prednisone (Prednisone) 5 mg DAILY PO Last administered on 02/05/17 10:17; Admin Dose 5 MG; Start 01/05/17 at 12:00 Prednisone (Prednisone) 3 mg DAILY PO Last administered on 02/05/17 10:00; Admin Dose 3 MG; Start 01/05/17 at 12:00 Miscellaneous Information 1 ea NOTE XX ; Start 01/05/17 at 11:00 Glucose (Glutose) 15 gm Q15M PRN PO DECREASED GLUCOSE; Start 01/05/17 at 11:00 Glucose (Glutose) 22.5 gm Q15M PRN PO DECREASED GLUCOSE; Start 01/05/17 at 11: 00 Dextrose (D50w Syringe) 25 ml Q15M PRN IV DECREASED GLUCOSE Last administered on 01/23/17 03:45; Admin Dose 25 ML; Start 01/05/17 at 11:00 Dextrose (D50w Syringe) 50 ml Q15M PRN IV DECREASED GLUCOSE Last administered on 01/08/17 21:33; Admin Dose 50 ML; Start 01/05/17 at 11:00 Glucagon (Glucagen) 1 mg Q15M PRN IM DECREASED GLUCOSE Last administered on 21:08; Admin Dose 1 MG; Start 01/05/17 at 11:00 Glucose (Glutose) 15 gm Q15M PRN BUCCAL DECREASED GLUCOSE Last administered on 01/23/17 21:36; Admin Dose 15 GM; Start 01/05/17 at 11:00 Bumetanide (Bumex) 1 mg BID IV Last administered on 01/13/17 21:06; Admin Dose 1 MG; Start 01/08/17 at 09:00; Status Future Hold Acetaminophen (Tylenol Tab) 650 mg Q6H PRN NGT PAIN AND OR ELEVATED TEMP Last administered on 02/04/17 12:23; Admin Dose 650 MG; Start 01/17/17 at 22:30 Apixaban (Eliquis) 2.5 mg BID NGT Last administered on 02/05/17 09:58; Admin Dose 2.5 MG; Start 01/17/17 at 21:00; Status Future hold Ascorbic Acid (Vitamin C) 500 mg BID NGT Last administered on 02/05/17 09:59 ; Admin Dose 500 MG; Start 01/17/17 at 21:00 Levothyroxine Sodium (Synthroid) 75 mcg DAILY@06 NGT Last administered on 02/05 05:59; Admin Dose 75 MCG; Start 01/18/17 at 06:00 Loratadine (Claritin) 10 mg DAILY NGT Last administered on 02/05/17 09:59; Admin Dose 10 MG; Start 01/18/17 at 09:00 Mirtazapine (Remeron) 15 mg HS NGT Last administered on 02/04/17 21:24; Admin Dose 15 MG; Start 01/17/17 at 21:00 Oxcarbazepine (Trileptal) 600 mg BID NGT Last administered on 02/05/17 09:59 ; Admin Dose 600 MG; Start 01/17/17 at 21:00 Senna (Senokot) 1 tab HS NGT Last administered on 01/25/17 20:06; Admin Dose 1 TAB; Start 01/17/17 at 21:00; Status Future Hold Sertraline HCl (Zoloft) 75 mg DAILY NGT Last administered on 02/05/17 09:58; Admin Dose 75 MG; Start 01/18/17 at 09:00 Sildenafil Citrate (Revatio) 20 mg TID NGT Last administered on 02/05/17 12: 29; Admin Dose 20 MG; Start 01/17/17 at 21:00 Docusate Sodium (Colace Liquid Cup) 100 mg BID NGT Last administered on 09:55; Admin Dose 100 MG; Start 01/17/17 at 21:00; Status Future Hold Famotidine (Pepcid) 20 mg DAILY NGT Last administered on 02/05/17 09:59; Admin Dose 20 MG; Start 01/20/17 at 09:00 Lorazepam (Ativan) 1 mg Q6H PRN IV anxiety Last administered on 01/29/17 14:52 ; Admin Dose 1 MG; Start 01/22/17 at 09:00 Tacrolimus (Prograf) 2 mg QPM NGT Last administered on 02/04/17 21:24; Admin Dose 2 MG; Start 01/24/17 at 21:00 Metoclopramide HCl (Reglan) 5 mg Q8H PRN IV VOMITTING; Start 01/26/17 at 15:30 Hydralazine HCl (Apresoline) 25 mg TID PRN GTB ELEVATED SYSTOLIC BP Last administered on 02/01/17 13:58; Admin Dose 25 MG; Start 01/27/17 at 07:00 Voriconazole (Vfend) 200 mg BID PO Last administered on 02/05/17 09:59; Admin Dose 200 MG; Start 01/31/17 at 21:00 Metoprolol Tartrate (Lopressor) 50 mg TID NGT Last administered on 02/05/17 12:29; Admin Dose 50 MG; Start 01/31/17 at 21:00 Insulin Glargine (Lantus) 24 unit 08 SC Last administered on 02/05/17 10:03; Admin Dose 24 UNIT; Start 02/05/17 at 08:00 Diagnostic Test (Pha) (Accu-Chek) 1 ea 02 XX ; Start 02/05/17 at 02:00 Diagnostic Test (Pha) (Accu-Chek) 1 ea 02 XX ; Start 02/05/17 at 02:00 Insulin Aspart (Novolog Insulin Pen) (Adult SC Insulin - Mild Algorithm)... Q4 SC Last administered on 02/05/17 12:31; Admin Dose 2 UNIT; Start 02/04/17 at 13:00 Assessment/Plan Chief Complaint/Hosp Course 1. 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 Etiology of acute kidney injury is secondary to acute tubular necrosis. The patient is currently dialysis dependent, no signs of recovery. Continue intermittent dialysis 2. Hyponatremia. will adjust dialysate 3. Hypokalemia, replete with potassium chloride. 4. Paroxysmal atrial fibrillation, continue current medical management and follow up with cardiology. 5. Sepsis, status post shock secondary to pneumonia. The patient is completing antibiotic course. 6. Leukocytosis, likely due to stress and demargination. Will continue to monitor closely. Follow up with Infectious Disease. 7. Fungal urinary tract infection. The patient is status post antifungal therapy. 8. 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 The patient's current acute kidney injury as stated above. Continue current immunosuppressive regimen. Prograf levels within acceptable range. 9. Hypothyroidism. Continue Synthroid. 10. Anemia. Continue to monitor hemoglobin and hematocrit levels. 11. Diabetes. Continue Accu-Cheks and insulin sliding scale. 12. Pulmonary hypertension. Continue current medical management. 13. End-stage dependent respiratory failure, status post tracheostomy, vent settings have been reviewed. Continue to monitor. 14. Volume overload. Continue ultrafiltration with dialysis. 15. Dysphagia, status post PEG, continue tube feeding. 16. History of breast cancer. Follow up with hematology. The patient is on Faslodex. 17. Pleural effusion. The patient's cytology was negative. 18. History of breast cancer with lung metastasis. The patient is on medical management. on Faslodex as outpt Problems: LELO RICHARDSON MD Feb 05, 2017 14:34
== END 2017-02-05 18:40 | DRG 4 ==
LOC: ICU 00:15 → TEL 01-30 20:45
PROVIDERS: ADMIT Internal Medicine; ATTEND Internal Medicine
PROC: 06HY33Z Insertion of Infusion Device into Lower Vein, Percutaneous Approach (ICD-10-PCS; principal; 2017-01-05)
PROC: 5A1945Z Respiratory Ventilation, 24-96 Consecutive Hours (ICD-10-PCS; 2017-01-05)
PROC: 0BH18EZ Insertion of Endotracheal Airway into Trachea, Via Natural or Artificial Opening Endoscopic (ICD-10-PCS; 2017-01-05)
PROC: 5A1955Z Respiratory Ventilation, Greater than 96 Consecutive Hours (ICD-10-PCS; 2017-01-08)
PROC: 0W993ZX Drainage of Right Pleural Cavity, Percutaneous Approach, Diagnostic (ICD-10-PCS; 2017-01-10)
PROC: 06HY33Z Insertion of Infusion Device into Lower Vein, Percutaneous Approach (ICD-10-PCS; 2017-01-18)
PROC: 5A1D70Z Performance of Urinary Filtration, Intermittent, Less than 6 Hours Per Day (ICD-10-PCS; 2017-01-18)
PROC: 0DH63UZ Insertion of Feeding Device into Stomach, Percutaneous Approach (ICD-10-PCS; 2017-01-19)
PROC: 30233N1 Transfusion of Nonautologous Red Blood Cells into Peripheral Vein, Percutaneous Approach (ICD-10-PCS; 2017-01-21)
PROC: 05HM33Z Insertion of Infusion Device into Right Internal Jugular Vein, Percutaneous Approach (ICD-10-PCS; 2017-01-23)
PROC: 02HV33Z Insertion of Infusion Device into Superior Vena Cava, Percutaneous Approach (ICD-10-PCS; 2017-01-26)
PROC: 0B110F4 Bypass Trachea to Cutaneous with Tracheostomy Device, Open Approach (ICD-10-PCS; 2017-01-27)
DX: A41.9 Sepsis, unspecified organism (principal); N17.0 Acute kidney failure with tubular necrosis; R65.21 Severe sepsis with septic shock; I46.9 Cardiac arrest, cause unspecified; G93.40 Encephalopathy, unspecified; J90 Pleural effusion, not elsewhere classified; J96.21 Acute and chronic respiratory failure with hypoxia; J18.9 Pneumonia, unspecified organism; I50.33 Acute on chronic diastolic (congestive) heart failure; J96.22 Acute and chronic respiratory failure with hypercapnia; B37.0 Candidal stomatitis; E87.1 Hypo-osmolality and hyponatremia; I13.0 Hypertensive heart and chronic kidney disease with heart failure and stage 1 through stage 4 chronic kidney disease, or unspecified chronic kidney disease; N39.0 Urinary tract infection, site not specified; Z99.11 Dependence on respirator [ventilator] status; Z94.0 Kidney transplant status; D64.9 Anemia, unspecified; I48.0 Paroxysmal atrial fibrillation; E03.9 Hypothyroidism, unspecified; I27.20 Pulmonary hypertension, unspecified; F41.9 Anxiety disorder, unspecified; F32.9 Major depressive disorder, single episode, unspecified; G89.4 Chronic pain syndrome; E11.22 Type 2 diabetes mellitus with diabetic chronic kidney disease; N18.9 Chronic kidney disease, unspecified; J44.9 Chronic obstructive pulmonary disease, unspecified; R31.9 Hematuria, unspecified; E87.6 Hypokalemia; Z79.899 Other long term (current) drug therapy; Z85.3 Personal history of malignant neoplasm of breast; Z79.4 Long term (current) use of insulin
CPT/HCPCS: 31500; 36430; 36569; 36600; 70450; 71010; 74000; 76775; 76937; 76942; 80048; 80053; 80197; 80202; 81001; 81003; 82043; 82728; 82803; 82962; 83540; 83605; 83615; 83735; 84100; 84145; 84155; 84157; 84300; 85014; 85018; 85025; 85610; 85730; 86850; 86900; 86901; 86920; 87040; 87070; 87075; 87081; 87086; 87102; 87116; 88104; 88305; 89051; 89190; 89220; 90935; 92950; 94002; 94003; 94640; 94660; 94770; C1752; J0690; J0692; J0885; J1610; J1630; J1644; J1815; J1940; J2060; J2405; J2765; J3010; J3370; J7030; J7040; J7042; J7050; J7070; J7507; J7512; J7999; J9395; P9016; P9047

== ENCOUNTER → 2017-03-13 | Day surgery (SDC) | payer OTHER ==
[~2017-03-13] VITALS: Ht 162.6 cm; Wt 80.9 kg
[2017-03-13] VITALS (7 sets, daily range): BP systolic 164–186; BP diastolic 64–85; PULSE 80–82; RESP 20–22; Ht 162.6 cm; Wt 80.9 kg
[~2017-03-13] MED LIST: ACET-2047 PO; APIX2.5T PO; ASC500 PO; BISA10SU75 PR; BUDE0.25 INHALATION; BUME1TAB18 PO; CEFAZOLIN 1 GM INJ ONE; DOCU-159 PO; FENTAnyl 50 MCG/ML VIAL ONE; FLUT16SP17 NASAL; FULV250D2 IM; IOHEXOL 300MG/ML 30 ML BTL ONE; IPRA4AER INHALATION; LANT3I SC; LEVO75TA5 PO; LIDOCAINE 1% (MPF) 30 ML INJ ONE; LORA10TA3 PO; MAGN400O4 PO; MAGN400T22 PO; METO-448 PO; MIDAZOLAM 1 MG/ML 2 ML INJ ONE; MIRT-30 PO; NIT1OI2 TD; NOVO3I SC; ONDA4VIA2 IV; OXCA300T3 PO; PANT40SU PO; PRED5SOL PO; SENN25TA21 PO; SERT50TA PO; SILD20TA13 PO; TACR5CAP3 PO
[2017-03-13] MEDS: HEPARIN 1000 UNITS/ML 10 ML INJ ONE ×2 (20:25→20:40)
--- NOTE | 2017-03-13 21:54 | RADRPT ---
PROCEDURE: X-ray Chest. CLINICAL INDICATION: Pneumothorax. TECHNIQUE: Single view chest x-ray. COMPARISON: Exam dated 01/25/2017. FINDINGS: There is a well-positioned tracheostomy and a right IJ catheter with its tip overlying th e superior cavoatrial junction. The cardiomediastinal silhouette remains enlarged. There are surgica l clips overlying the left hilum and left axillary region. There is diffuse bilateral interstitial disease, mildly increased when compared with the prior, and a similar appearing small loculated righ t effusion. There is no pneumothorax. There are no acute osseous abnormalities. There is a percutane ous gastrostomy tube overlying the left upper quadrant. IMPRESSION: 1. No pneumothorax is identified, as questioned. 2. Interval placement of a well-positioned tunneled right IJ catheter with its tip overlying the flower perior cavoatrial junction. 3. Remain with findings suggestive of worsening hydrostatic edema with a similar appearing small lo culated right effusion. A layering left effusion is also likely present. RPTAT: HLBP .Roque Schultz MD, Date Time Electronically viewed and signed by .Roque Schultz MD, on 03/13/2017 21:53 .P/
--- NOTE | 2017-03-14 05:03 | OPR ---
DATE OF OPERATION: PREOPERATIVE DIAGNOSIS: Renal failure. POSTOPERATIVE DIAGNOSIS: Renal failure. OPERATION PERFORMED: 1. Right internal jugular vein 19 cm tunneled hemodialysis catheter placement. 2. Ultrasound guidance into the central vein. 3. Fluoroscopy. SURGEON: Kelsy Banks MD. ANESTHESIA: Local. CONSENT: Risks, benefits, complications, alternative therapies explained to the patient's family, c onsent obtained. OPERATIVE TECHNIQUE: The patient was placed in supine position, prepped and draped in usual sterile fashion, 1% lidocaine was used throughout the operation for local anesthesia. Under ultrasonic mary dance, access was gained in the right internal jugular vein. Guidewire was advanced through without any difficulty. Subcutaneous tissues were dilated. A 19 cm tunneled hemodialysis catheter was bro ught into the subcutaneous tunnel, advanced into the right internal jugular vein and superior vena c autumn, all under fluoroscopic guidance. The tip was placed at the junction of the superior vena cava and right atrium. Both ports of the catheter were aspirated and injected using heparinized saline s olution. The catheter was secured to skin using 2-0 nylon sutures. The neck site and the exit site were closed using 3-0 Vicryl suture in interrupted fashion. Patient tolerated the procedure well. Dictated By: KELSY BORJAS/AFSHAN Conf#: [id number] DID#: [id number]
--- NOTE | 2017-03-14 10:36 | RADRPT ---
PROCEDURE: Intraoperative imaging of the chest. CLINICAL INDICATION: Check line placement. TECHNIQUE: Images of the chest were obtained in the operating room with an image intensifier. No radiologist was in attendance. a single frontal image of the chest was obtained with the image in tensifier. Fluoroscopy time is 4.9 seconds. COMPARISON: Chest x-ray dated 01/25/2017. FINDINGS: The image demonstrates a right-sided tunneled dialysis catheter with the tip not visualized. A trach eostomy tube is noted. IMPRESSION: 1. Single frontal view of the upper chest obtained in the operating room. RPTAT: QQ .Jarvis Block MD, MD Date Time Electronically viewed and signed by .Jarvis Block MD, MD on 03/14/2017 10:36 .R/
== END | disposition home or self-care (01) ==
LOC: SDS 03-06 09:18
PROVIDERS: ATTEND Thoracic Surgery (Cardiothoracic Vascular Surgery)
DX: I13.2 Hypertensive heart and chronic kidney disease with heart failure and with stage 5 chronic kidney disease, or end stage renal disease (principal); I50.9 Heart failure, unspecified; N18.6 End stage renal disease; Z99.2 Dependence on renal dialysis; E11.22 Type 2 diabetes mellitus with diabetic chronic kidney disease; Z79.4 Long term (current) use of insulin; I48.91 Unspecified atrial fibrillation; J45.909 Unspecified asthma, uncomplicated; E66.01 Morbid (severe) obesity due to excess calories; Z68.30 Body mass index [BMI] 30.0-30.9, adult; J44.9 Chronic obstructive pulmonary disease, unspecified; Z94.0 Kidney transplant status; Z85.3 Personal history of malignant neoplasm of breast; E03.9 Hypothyroidism, unspecified; F33.9 Major depressive disorder, recurrent, unspecified; F41.9 Anxiety disorder, unspecified; Z79.01 Long term (current) use of anticoagulants
CPT/HCPCS: 36558; 71010; 94002; C1752; J0690; J1644; J2250; J3010; Q9967

== ENCOUNTER 2017-04-25 12:17 | Inpatient (IN) | END 2017-05-01 16:00 | DRG 870 ==